=== PATIENT | female | born 1930 | race Caucasian/White ===

== ENCOUNTER 2016-11-08 16:49 | Inpatient (IN) | payer MEDICARE, OTHER ==
[~2016-11-08] VITALS: Ht 172.7 cm; Wt 72.1 kg
[2016-11-08] VITALS (8 sets, daily range): BP systolic 11–115; BP diastolic 53–59; PULSE 55–78; RESP 10–18; TEMP 92–97.6; O2SAT 94–100
[2016-11-08] MEDS ORDERED: SODIUM CHLOR 0.9% 1000 ML INJ 1,000 ML IV SCH (16:57)
[2016-11-08] MEDS ORDERED: ETOMIDATE 20 MG/10 ML VIAL IV PUSH ONE (17:00)
[2016-11-08] MEDS ORDERED: NALOXONE HCL 2 MG/2 ML VIAL IV ONE (17:00)
[2016-11-08] MEDS ORDERED: SODIUM CHLORIDE 0.9% FLUSH 5 ML FLUSH IVF PRN (17:00)
[2016-11-08] MEDS ORDERED: SUCCINYLCHOLINE CHLORIDE 200 MG/10 ML VIAL IV PUSH ONE (17:00)
[2016-11-08 17:01] LABS: MEAN CORPUSCULAR HGB CONC 29.5 % (32.0-36.0)
--- NOTE | 2016-11-08 17:01 | PD ---
HPI Chief Complaint: Fall Time Seen by Provider: 16:57 Travel History International Travel<30 days: No Contact w/Intl Traveler<30days: No Traveled to known affect area: No History of Present Illness HPI The patient is a 86-year-old female who presents emergency department via private vehicle after being found unresponsive in bed. According to family the last time the patient was found normal was last night. The family member states the patient did fall last night, he is unsure if there was a loss of consciousness. He was able to help the patient ambulate back to her bedroom. The patient did not get out of bed this morning, when they went into her room this afternoon she was unresponsive. Upon arrival the patient has her eyes closed, nonverbal, snoring respirations, and only withdraws to pain. The family member states the patient has no known medical problems, no previous surgeries, no allergies, takes no medications on a daily basis. The patient does not have a primary physician. The patient is unable to provide any information. [facility] Past Medical History Narrative Medical No medical history according to family member Medical History: Denies Significant Hx Diminished Hearing: Yes Past Surgical History Narrative Surgical No previous surgeries according to the family member Surgical History: No Previous Surgery Social History Alcohol Use: No Tobacco Use: No Substance Use: No (UNKNOWN ) Allergies-Medications (Allergen,Severity, Reaction): Coded Allergies: UNOBTAINABLE (Unverified , 11/08/16) Review of Systems ROS Limitations: Unresponsive, Other: (history obtained from family member) Physical Exam Exam Limitations: Clinical Condition, Altered Mental Status Narrative GENERAL: 86-year-old female who arrives unresponsive, started respirations, eyes closed, and withdraws to pain. SKIN: Hematoma noted over the right frontotemporal area. HEAD: Hematoma noted over the right frontotemporal area. EYES: Pupils equal and round. Pupils are 2 mm bilateral and sluggish. ENT: Lower dentures were in the posterior oropharynx. Upper dentures in place. NECK: Trachea midline. No JVD. CARDIOVASCULAR: Regular rate and rhythm. No murmur appreciated. Heart rate in the 80s. RESPIRATORY: No accessory muscle use. Rhonchi right base. GASTROINTESTINAL: Abdomen soft, non-tender, nondistended. No obvious distention or tenderness. MUSCULOSKELETAL: No obvious deformities. No clubbing. No cyanosis. No edema. NEUROLOGICAL: Eyes close. Nonverbal. Minimal gag. Withdraws to pain. PSYCHIATRIC: Unable to assess. Data Data Last Documented VS Vital Signs Date Time Temp Pulse Resp B/P Pulse Ox O2 Delivery O2 Flow Rate FiO2 11/08/16 17:30 100 50 11/08/16 17:23 97.6 75 18 111/59 Ventilator Orders Electrocardiogram (11/08/16 16:57) Complete Blood Count With Diff (11/08/16 16:57) Comprehensive Metabolic Panel (11/08/16 16:57) Creatine Kinase (Cpk) (11/08/16 16:57) Prothrombin Time / Inr (Pt) (11/08/16 16:57) Act Partial Throm Time (Ptt) (11/08/16 16:57) Troponin I (11/08/16 16:57) Urinalysis - C+S If Indicated (11/08/16 16:57) Arterial Blood Gas (Abg) (11/08/16 16:57) Blood Culture (11/08/16 16:57) Chest, Single Ap (11/08/16 16:57) Ct Brain W/O Iv Contrast(Rout) (11/08/16 16:57) Blood Glucose (11/08/16 16:57) Ecg Monitoring (11/08/16 16:57) Iv Access Insert/Monitor (11/08/16 16:57) Oximetry (11/08/16 16:57) Urinary Catheter Insert/Apply (11/08/16 16:57) Naloxone Inj (Narcan Inj) (11/08/16 17:00) Sodium Chloride 0.9% Flush (Ns Flush) (11/08/16 17:00) Sodium Chlor 0.9% 1000 Ml Inj (Ns 1000 M (11/08/16 16:57) Drug Screen, Random Urine (11/08/16 16:57) Alcohol (Ethanol) (11/08/16 16:57) Etomidate Inj (Amidate Inj) (11/08/16 17:00) Succinylcholine Inj (Quelicin Inj) (11/08/16 17:00) Aspirin Supp (Aspirin Supp) (11/08/16 17:45) Midazolam Inj (Versed Inj) (11/08/16 17:45) Neurological Rass Scale Q30MX2,Q2HX4,Q4H (11/08/16 17:38) Neurological Rass Scale Q30MX2,Q2HX4,Q4H (11/08/16 17:38) Fentanyl Drip (Fentanyl Drip) (11/08/16 17:45) CKMB (11/08/16 16:56) CKMB% (11/08/16 16:56) Midazolam Inj (Versed Inj) (11/08/16 18:01) Fentanyl Drip (Fentanyl Drip) (11/08/16 18:01) Urine Culture (11/08/16 17:40) Sodium Chlor 0.9% 1000 Ml Inj (Ns 1000 M (11/08/16 18:15) Consult Neurology (11/08/16 ) Admit Order (Ed Use Only) (11/08/16 18:12) Labs Laboratory Tests Test 11/08/16 11/08/16 11/08/16 16:56 17:40 18:04 White Blood Count 8.2 TH/MM3 Red Blood Count 4.51 MIL/MM3 Hemoglobin 8.3 GM/DL Hematocrit 28.1 % Mean Corpuscular Volume 62.4 FL Mean Corpuscular Hemoglobin 18.4 PG Mean Corpuscular Hemoglobin 29.5 % Concent Red Cell Distribution Width 19.6 % Platelet Count 105 TH/MM3 Mean Platelet Volume 8.9 FL Neutrophils (%) (Auto) 81.1 % Lymphocytes (%) (Auto) 9.0 % Monocytes (%) (Auto) 8.1 % Eosinophils (%) (Auto) 1.2 % Basophils (%) (Auto) 0.6 % Neutrophils # (Auto) 6.6 TH/MM3 Lymphocytes # (Auto) 0.7 TH/MM3 Monocytes # (Auto) 0.7 TH/MM3 Eosinophils # (Auto) 0.1 TH/MM3 Basophils # (Auto) 0.0 TH/MM3 CBC Comment AUTO DIFF Differential Comment AUTO DIFF CONFIRMED Platelet Estimate LOW Platelet Morphology Comment NORMAL Target Cells 1+ Ovalocytes 1+ Acanthocytes OCC Keratocytes OCC Prothrombin Time 13.7 SEC Prothromb Time International 1.2 RATIO Ratio Activated Partial 27.8 SEC Thromboplast Time Sodium Level 144 MEQ/L Potassium Level 4.6 MEQ/L Chloride Level 110 MEQ/L Carbon Dioxide Level 25.0 MEQ/L Anion Gap 9 MEQ/L Blood Urea Nitrogen 23 MG/DL Creatinine 0.89 MG/DL Estimat Glomerular Filtration 60 ML/MIN Rate Random Glucose 152 MG/DL Calcium Level 7.6 MG/DL Total Bilirubin 1.9 MG/DL Aspartate Amino Transf 196 U/L (AST/SGOT) Alanine Aminotransferase 33 U/L (ALT/SGPT) Alkaline Phosphatase 104 U/L Total Creatine Kinase 3354 U/L Creatine Kinase MB 14.2 NG/ML Creatine Kinase MB % 0.4 % Troponin I 0.08 NG/ML Total Protein 6.2 GM/DL Albumin 2.8 GM/DL Ethyl Alcohol Level LESS THAN 3 MG/DL Urine Color YELLOW Urine Turbidity HAZY Urine pH 7.5 Urine Specific Elora 1.017 Urine Protein 30 mg/dL Urine Glucose (UA) NEG mg/dL Urine Ketones NEG mg/dL Urine Occult Blood NEG Urine Nitrite NEG Urine Bilirubin NEG Urine Urobilinogen 2.0 MG/DL Urine Leukocyte Esterase TRACE Urine RBC 1 /hpf Urine WBC 2 /hpf Urine Bacteria MANY /hpf Urine Mucus FEW /lpf Microscopic Urinalysis Comment CATH-CULTURE IND Urine Opiates Screen NEG Urine Barbiturates Screen NEG Urine Amphetamines Screen NEG Urine Benzodiazepines Screen NEG Urine Cocaine Screen NEG Urine Cannabinoids Screen NEG Blood Gas Puncture Site LT RADIAL Blood Gas Patient Temperature 98.6 Blood Gas HCO3 23 mmol/L Blood Gas Base Excess -0.1 mmol/L Blood Gas Oxygen Saturation 98 % Arterial Blood pH 7.46 Arterial Blood Partial 33 mmHg Pressure CO2 Arterial Blood Partial 230 mmHG Pressure O2 Arterial Blood Oxygen Content 11.0 Vol % Arterial Blood 2.3 % Carboxyhemoglobin Arterial Blood Methemoglobin 0.5 % Blood Gas Hemoglobin 7.6 G/DL Oxygen Delivery Device VENTILATOR Blood Gas Ventilator Setting AC 12/450/5+ Blood Gas Inspired Oxygen 50 % [facility] Medical Decision Making Medical Screen Exam Complete: Yes Emergency Medical Condition: Yes Medical Record Reviewed: Yes Interpretation(s) EKG reveals sinus arrhythmia with a rate of 77. Q wave noted in lead [address] of the head reveals low density seen throughout the posterior circulation regions including the susan and midbrain, cerebellar hemispheres, occipital and posterior medial temporal lobes and right thalamus. This likely represents areas of infarction involving the posterior territory circulation. Last Impressions Head CT 11/08/16 4932 Signed Impressions: Service Date/Time: Tuesday, November 08, 2016 17:06 - CONCLUSION: Low density seen throughout the posterior circulation regions including the susan and midbrain, cerebellar hemispheres, occipital and posterior medial temporal lobes and right thalamus. This likely represents areas of infarction involving the posterior territory circulation. Jeffery Zhong MD Chest X-Ray 11/08/16 [id number] Signed Impressions: Service Date/Time: Tuesday, November 08, 2016 17:12 - CONCLUSION: Endotracheal tube is at the kraig and needs to be withdrawn at least 2 cm. Satisfactory position of nasogastric tube. No evidence of significant airspace disease or congestion. Hill Sequeira MD Laboratory Tests Test 11/08/16 11/08/16 11/08/16 16:56 17:40 18:04 White Blood Count 8.2 TH/MM3 Red Blood Count 4.51 MIL/MM3 Hemoglobin 8.3 GM/DL Hematocrit 28.1 % Mean Corpuscular Volume 62.4 FL Mean Corpuscular Hemoglobin 18.4 PG Mean Corpuscular Hemoglobin 29.5 % Concent Red Cell Distribution Width 19.6 % Platelet Count 105 TH/MM3 Mean Platelet Volume 8.9 FL Neutrophils (%) (Auto) 81.1 % Lymphocytes (%) (Auto) 9.0 % Monocytes (%) (Auto) 8.1 % Eosinophils (%) (Auto) 1.2 % Basophils (%) (Auto) 0.6 % Neutrophils # (Auto) 6.6 TH/MM3 Lymphocytes # (Auto) 0.7 TH/MM3 Monocytes # (Auto) 0.7 TH/MM3 Eosinophils # (Auto) 0.1 TH/MM3 Basophils # (Auto) 0.0 TH/MM3 CBC Comment AUTO DIFF Differential Comment AUTO DIFF CONFIRMED Platelet Estimate LOW Platelet Morphology Comment NORMAL Target Cells 1+ Ovalocytes 1+ Acanthocytes OCC Keratocytes OCC Prothrombin Time 13.7 SEC Prothromb Time International 1.2 RATIO Ratio Activated Partial 27.8 SEC Thromboplast Time Sodium Level 144 MEQ/L Potassium Level 4.6 MEQ/L Chloride Level 110 MEQ/L Carbon Dioxide Level 25.0 MEQ/L Anion Gap 9 MEQ/L Blood Urea Nitrogen 23 MG/DL Creatinine 0.89 MG/DL Estimat Glomerular Filtration 60 ML/MIN Rate Random Glucose 152 MG/DL Calcium Level 7.6 MG/DL Total Bilirubin 1.9 MG/DL Aspartate Amino Transf 196 U/L (AST/SGOT) Alanine Aminotransferase 33 U/L (ALT/SGPT) Alkaline Phosphatase 104 U/L Total Creatine Kinase 3354 U/L Creatine Kinase MB 14.2 NG/ML Creatine Kinase MB % 0.4 % Troponin I 0.08 NG/ML Total Protein 6.2 GM/DL Albumin 2.8 GM/DL Ethyl Alcohol Level LESS THAN 3 MG/DL Urine Color YELLOW Urine Turbidity HAZY Urine pH 7.5 Urine Specific Elora 1.017 Urine Protein 30 mg/dL Urine Glucose (UA) NEG mg/dL Urine Ketones NEG mg/dL Urine Occult Blood NEG Urine Nitrite NEG Urine Bilirubin NEG Urine Urobilinogen 2.0 MG/DL Urine Leukocyte Esterase TRACE Urine RBC 1 /hpf Urine WBC 2 /hpf Urine Bacteria MANY /hpf Urine Mucus FEW /lpf Microscopic Urinalysis Comment CATH-CULTURE IND Urine Opiates Screen NEG Urine Barbiturates Screen NEG Urine Amphetamines Screen NEG Urine Benzodiazepines Screen NEG Urine Cocaine Screen NEG Urine Cannabinoids Screen NEG Blood Gas Puncture Site LT RADIAL Blood Gas Patient Temperature 98.6 Blood Gas HCO3 23 mmol/L Blood Gas Base Excess -0.1 mmol/L Blood Gas Oxygen Saturation 98 % Arterial Blood pH 7.46 Arterial Blood Partial 33 mmHg Pressure CO2 Arterial Blood Partial 230 mmHG Pressure O2 Arterial Blood Oxygen Content 11.0 Vol % Arterial Blood 2.3 % Carboxyhemoglobin Arterial Blood Methemoglobin 0.5 % Blood Gas Hemoglobin 7.6 G/DL Oxygen Delivery Device VENTILATOR Blood Gas Ventilator Setting AC 12/450/5+ Blood Gas Inspired Oxygen 50 % Differential Diagnosis Differential diagnosis includes intracranial hemorrhage, subdural hemorrhage, epidural hemorrhage, subarachnoid hemorrhage, opiate overdose, STEMI, CVA, metabolic encephalopathy, aspiration pneumonia. Narrative Course IV was established, labs are drawn and sent, the patient was placed on cardiac telemetry monitoring and continuous pulse oximetry monitoring. The patient's GCS was 6, patient would only withdraw to pain, eyes closed, nonverbal, was not protecting her airway. Therefore, the patient was intubated using rapid sequence intubation with etomidate and succinylcholine. Head and that was placed up at 30 and the patient went immediately to CT suite for CT of the brain. Labs were drawn and sent. Post intubation chest x-ray was performed. CT reveals a large posterior infarct, therefore, head of bed was placed flat. The patient was administered aspirin 300 mg suppository. I discussed the patient with the on-call neurologist, Dr. Barrera, who agrees with no further intervention. The patient was also noted to be in rhabdomyolysis, therefore, 1 L of IV fluids was placed. I discussed the patient with the on-call jacker feeder who agrees with admission. Chest x-ray reveals endotracheal tube is at the kraig, therefore, respiratory therapy was called to remove it 2 cm. The neurologist, Dr. Barrera, evaluated the patient in the emergency department at 6:15 PM and discussed the patient's large stroke with family at bedside. Critical Care Narrative Aggregate critical care time was 45 minutes. Time to perform other separately billable procedures was not included in the critical care time. My time did not include minutes spent treating any other patients simultaneously or on activities that did not directly contribute to the patient's treatment. The services I provided to this patient were to treat and/or prevent clinically significant deterioration that could result in: Anoxia, hypoxia, aspiration, herniation, arrhythmia, . I provided critical care services requiring my management, as noted below: Chart data review, documentation time, medication orders and management, vital sign assessments/reviewing monitor data, ordering and reviewing lab tests, ordering and interpreting/reviewing x-rays and diagnostic studies, care of the patient and discussion of the patient with the admitting physicians. Procedures Procedure Narrative INTUBATION: The patient was put in optimal position for the procedure. Rapid sequence intubation was initiated by me using 20 milligrams of etomidate IV and 100 milligrams of succinylcholine IV. The patient was intubated with a 7.5 cuffed endotracheal tube. Tube placement was confirmed by visualization of the tube and balloon passing through the cords, capnometry and subsequent chest x- ray. Breath sounds were equal and well aerated bilaterally postintubation. No breath sounds over stomach. Patient tolerated procedure well. Physician Communication Physician Communication I discussed the patient with the on-call jacker feeder, Dr. Dumont, who agrees with admission. Diagnosis Primary Impression: CVA (cerebral vascular accident) Qualified Code: I63.9 - Cerebrovascular accident (CVA), unspecified mechanism Additional Impression: Rhabdomyolysis Qualified Code: M62.82 - Non-traumatic rhabdomyolysis Admitting Information Admitting Physician Requests: Admit Condition: Critical Kamlesh Mcintosh MD Nov 08, 2016 17:01
[2016-11-08 17:25] LABS: AUTOMATED NEUTROPHIL # 6.6 TH/MM3 (1.8-7.7); BASOPHIL % 0.6 % (0.0-2.0); EOSINOPHIL # 0.1 TH/MM3 (0-0.4); EOSINOPHIL % 1.2 % (0.0-4.0); HEMATOCRIT 28.1 % (35.0-46.0); LYMPHOCYTE # 0.7 TH/MM3 (1.0-4.8); MEAN CELL VOLUME 62.4 FL (80.0-100.0); MEAN CORPUSCULAR HEMOGLOBIN 18.4 PG (27.0-34.0); MONO % 8.1 % (0.0-8.0); NEUT % 81.1 % (16.0-70.0); PLATELET COUNT 105 TH/MM3 (150-450); RED BLOOD COUNT 4.51 MIL/MM3 (4.00-5.30); RED CELL DISTRIBUTION WIDTH 19.6 % (11.6-17.2); WHITE BLOOD COUNT 8.2 TH/MM3 (4.0-11.0)
--- NOTE | 2016-11-08 17:29 | RADRPT ---
EXAM DATE/TIME: 11/08/2016 17:06 [facility] COMPARISON: No previous studies available for comparison. INDICATIONS : Altered mental status. Found unresponsive. RADIATION DOSE: 37.56 CTDIvol (mGy) MEDICAL HISTORY : Non-responsive. SURGICAL HISTORY : Non-responsive. ENCOUNTER: Initial ACUITY: 1 day PAIN SCALE: Non-responsive LOCATION: Cranial TECHNIQUE: Multiple contiguous axial images were obtained of the head. Using automated exposure control and adjustment of the mA and/or kV according to patient size, radiation dose was kept as low as reasonably achievable to obtain optimal diagnostic quality images. FINDINGS: There is low density seen in the susan and midbrain. There is low density seen in the ce rebellar hemispheres bilaterally. There is low density seen at the posterior medial temporal lobes a nd the occipital lobes bilaterally. There is some low density seen in the right thalamus. No extra-a xial fluid collections are seen. The lateral ventricles have a normal configuration. The basal cist erns are open. CONCLUSION: Low density seen throughout the posterior circulation regions including the susan and midbrain, cerebellar hemispheres, occipital and posterior medial temporal lobes and right thalamus. T his likely represents areas of infarction involving the posterior territory circulation. Jeffery Zhong MD on November 08, 2016 at 17:21 Board Certified Radiologist. This report was verified electronically.
[2016-11-08 17:34] LABS: APTT (PATIENT) 27.8 SEC (24.3-30.1); INTERNATIONAL NORMALIZED RATIO 1.2 RATIO; PROTHROMBIN TIME - PATIENT 13.7 SEC (9.8-11.6)
[2016-11-08 17:42] LABS: ANION GAP 9 MEQ/L (5-15); AST (GOT) 196 U/L (15-37); BLOOD UREA NITROGEN 23 MG/DL (7-18); CHLORIDE 110 MEQ/L (98-107); GLOMERULAR FILTRATION RATE 60 ML/MIN (>89); POTASSIUM 4.6 MEQ/L (3.5-5.1); SODIUM (NA) 144 MEQ/L (136-145)
--- NOTE | 2016-11-08 17:42 | RADRPT ---
EXAM DATE/TIME: 11/08/2016 17:12 [facility] COMPARISON: No previous studies available for comparison. INDICATIONS : Post intubation. MEDICAL HISTORY : Unobtainble. SURGICAL HISTORY : Unobtainable. ENCOUNTER: Initial ACUITY: 1 day PAIN SCORE: 0/10 LOCATION: Bilateral chest FINDINGS: A single view of the chest demonstrates the presence of an endotracheal and nasogastric tube. The tip of the endotracheal tube is at the kraig and directed towards the right mainstem bronchus. The naso gastric tube is in good position. Lungs are hypoaerated but otherwise free of significant airspace disease. Heart and mediastinal structures are unremarkable. CONCLUSION: Endotracheal tube is at the kraig and needs to be withdrawn at least 2 cm. Satisfactory position of nasogastric tube. No evidence of significant airspace disease or congestion. Hill Sequeira MD on November 08, 2016 at 17:39 Board Certified Radiologist. This report was verified electronically.
[2016-11-08] MEDS ORDERED: MIDAZOLAM 100 MG/ML INJ 100 ML IV SCH (17:45)
[2016-11-08] MEDS ORDERED: ASPIRIN 300 MG SUPP RECTAL ONE (17:45)
[2016-11-08] MEDS ORDERED: fentaNYL DRIP 250 ML IV SCH (17:45)
[2016-11-08 17:52] LABS: ALKALINE PHOSPHATASE 104 U/L (45-117); ALT (GPT) 33 U/L (10-53); CREATINE KINASE 3354 U/L (26-192); TOTAL BILIRUBIN ADULT 1.9 MG/DL (0.2-1.0)
[2016-11-08] MEDS ORDERED: MIDAZOLAM 100 MG/ML INJ 100 ML ONE (18:01)
[2016-11-08] MEDS ORDERED: fentaNYL DRIP 250 ML ONE (18:01)
[2016-11-08 18:03] LABS: BACTERIA, URINE MANY /hpf; BLOOD, URINE NEG (NEG); GLUCOSE,URINE NEG (NEG); KETONE, URINE NEG (NEG); MUCUS URINE FEW /lpf (OCC); NITRITE,URINE NEG (NEG); PH, URINE 7.5 (5.0-8.5); URINE COLOR YELLOW (YELLW/STRAW)
[2016-11-08 18:04] LABS: COMMENT (UR) CATH-CULTURE IND; CULTURE IF INDICATED CATH CULTURE IND
[2016-11-08 18:06] LABS: CKMB 14.2 NG/ML (0.5-3.6)
[2016-11-08 18:08] LABS: BLOOD GAS BASE EXCESS -0.1 mmol/L (-2-2); BLOOD GAS CARBOXYHEMOGLOBIN 2.3 % (0-4); BLOOD GAS HCO3 23 mmol/L (22-26); BLOOD GAS METHEMOGLOBIN 0.5 % (0-2); BLOOD GAS O2 HGB SATURATION 98 % (90-100); BLOOD GAS PCO2 33 mmHg (38-42); BLOOD GAS PO2 230 mmHG (61-120); BLOOD GAS TOTAL HGB 7.6 G/DL (12.0-16.0); CRITICAL VALUE NO; TEMP CORR TO 98.6
[2016-11-08 18:09] LABS: DRAW SITE LT RADIAL; FIO2 50 %; NUMBER OF ARTERIAL PUNCTURES 1; OXYGEN DEVICE VENTILATOR; STAT YES; ULNAR PULSE PRESENT; VENT SETTINGS AC 12/450/5+
[2016-11-08 18:09] LABS: AMPHETAMINE, URINE NEG (NEG); BARBITURATES, URINE NEG (NEG); COCAINE, URINE NEG (NEG)
[2016-11-08 18:11] LABS: HEMO FLAGS AUTO DIFF
[2016-11-08 18:12] LABS: ACANTHOCYTES OCC (NORMAL); KERATOCYTES OCC (NORMAL); OVALOCYTES 1+ (NORMAL); PLATELET ESTIMATE SMEAR LOW (NORMAL); PLATELET MORPHOLOGY NORMAL (NORMAL); SCAN/DIFF AUTO DIFF CONFIRMED; TARGET CELLS 1+ (NORMAL)
[2016-11-08] MEDS ORDERED: SODIUM CHLOR 0.9% 1000 ML INJ 1,000 ML IV ONE (18:15)
[2016-11-08] MEDS ORDERED: MANNITOL 12.5 GM/50 ML VIAL IV ONE (18:30)
--- NOTE | 2016-11-08 19:40 | MB ---
cc: FARAZ NAJERA M.D. DATE OF CONSULTATION 11/08/2016 HISTORY OF THE PRESENT ILLNESS She is an 86-year-old woman seen in neurological consultation. I spoke to the ED physician, Dr. Gregorio. I spoke the patient's son at bedside. Last evening the son arrived and apparently found her on the floor. The patient seemed to be somewhat responsive and he lifted her and took her to bed. She seemed to be able to walk with some assistance. He described that she was making some noise or words but usually does not talk very much. This morning she was found unresponsive and then he brought her to the hospital. Apparently the son checks on her and there is a daughter was also a registration rep. The patient has not been on any medication, has not been seen by doctors for quite some time. She has had some difficulty with memory or cognition lately, and her level of function has decreased significantly. She apparently walks to a certain extent and she is usually quiet, was difficult to get a more detailed history of background as baseline. PHYSICAL EXAMINATION GENERAL: On exam the patient is now on the ventilator, unresponsive, until I stimulated her moderately strongly in her chest, when I see posturing of both upper and probably lower extremities as well. Otherwise she is quiet. HEENT: The pupils are small and about same size and poorly reactive. The reflexes were diminished, nearly absent and plantar responses probably extensor bilaterally. IMAGING The CT brain is seen. There is extensive posterior circulation acute infarct, probably from basilar occlusion. There is calcification that appears to be in the basilar artery. LABORATORY DATA Other labs are seen. Sodium, potassium normal. The BUN 23, creatinine 0.89, glucose 152, calcium 7.6. CPK 3354. WBC 8.2, hemoglobin 8.3, platelets 105. 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 I have discussed the findings with the patient's son at bedside, also spoke to Dr. Gregorio. There is a very serious condition and non reversable. The prognosis is extremely poor no matter the aggressiveness of the treatment. The son wants to continue with full care for the time being until he checks with other family members etc. He was not sure about any living will. She is to be admitted to the intensive care unit. We will give her some small dose of mannitol if acceptable with the construction checker. Follow up CT brain and 12 - 24 hours. It is likely that she will be developing hydrocephalus but do not think she would be a candidate for any intervention. Thank you for asking us to assist in her care. MD JONATHAN Pham/KK /7:11 PM /7:27 PM
[2016-11-08] MEDS ORDERED: CHLORHEXIDINE GLUCONATE 2 % 1 PACK (2 CLOTHS) TOP PRN (19:45)
[2016-11-08] MEDS ORDERED: DEXTROSE 50% IN WATER 50 ML VIAL(D50) IV PUSH PRN (19:45)
[2016-11-08] MEDS ORDERED: MAGNESIUM SULFATE INJ 2 GM in SODIUM CHLORIDE 0.9% INJ 96 ML IV PRN (19:45)
[2016-11-08] MEDS ORDERED: MAGNESIUM OXIDE 400 MG TAB PO PRN (19:45)
[2016-11-08] MEDS ORDERED: MAGNESIUM SULFATE INJ 4 GM in SODIUM CHLORIDE 0.9% INJ 92 ML IV PRN (19:45)
[2016-11-08] MEDS ORDERED: POTASSIUM CHLOR 20 MEQ PREMIX 100 ML IV PRN ×2 (19:45)
[2016-11-08] MEDS ORDERED: POTASSIUM CHLOR 40 MEQ PREMIX 100 ML IV PRN ×2 (19:45)
[2016-11-08] MEDS ORDERED: POTASSIUM PHOSPHATE MONOBASIC 500 MG TAB PO PRN (19:45)
[2016-11-08] MEDS ORDERED: SODIUM CHLORIDE 0.9% FLUSH 5 ML FLUSH IV FLUSH PRN (19:45)
[2016-11-08] MEDS ORDERED: SODIUM PHOSPHATE INJ 30 MMOL in SODIUM CHLOR 0.9% 250 ML INJ 240 ML IV PRN (19:45)
[2016-11-08] MEDS ORDERED: niCARdipine INJ 25 MG in SODIUM CHLOR 0.9% 250 ML INJ 250 ML IV SCH (19:45)
[2016-11-08] MEDS ORDERED: MISCELLANEOUS NURSING INFORMATION XX SCH (19:45)
[2016-11-08] MEDS ORDERED: ONDANSETRON HCL 4 MG/2 ML VIAL IV PRN (19:45)
[2016-11-08] MEDS ORDERED: POTASSIUM PHOSPHATE INJ 30 MMOL in SODIUM CHLOR 0.9% 250 ML INJ 250 ML IV PRN (19:45)
[2016-11-08] MEDS ORDERED: POTASSIUM PHOSPHATE MONOBASIC 500 MG TAB PO/TUBE PRN (19:45)
--- NOTE | 2016-11-08 19:52 | HHI.HP ---
[facility] Service Critical Care Medicine Primary Care Physician Unknown Admission Diagnosis large posterior CVA, respiratory distress, rhabdomyolysis Diagnosis: Chief Complaint: unresponsive Travel History International Travel<30 Days: No Contact w/Intl Traveler <30 Da: No Traveled to Known Affected Are: No History of Present Illness This is an 86yF with per report no other past medical history who presented to the ER after she was found unresponsive in her bed. According to ER reports, her family saw her normal last night when she had a fall, with unknown LOC. At that point, he helped her back to bed. However, this morning she did not wake up. On arrival to the ER, she was unresponsive only withdrawing to pain. she was intubated for airway protection and a poor GCS. CT head demonstrated massive posterior-circulation ischemic stroke. The patient is currently intubated and unresponsive and cannot provide any additional history. Review of Systems ROS Limitations: Clinical Condition, Intubated, Altered Mental Status, Unresponsive Past Family Social History Allergies: Coded Allergies: UNOBTAINABLE (Unverified , 11/08/16) Past Medical History Unknown and unobtainable secondary to the clinical condition of the patient. Per chart review, family members state no known past medical history. Past Surgical History Unknown and unobtainable secondary to the clinical condition of the patient. Per chart review, family members state no known past surgical history. Reported Medications Unknown and unobtainable secondary to the clinical condition of the patient. Active Ordered Medications See MAR Family History Unknown and unobtainable secondary to the clinical condition of the patient. Social History Unknown and unobtainable secondary to the clinical condition of the patient. Physical Exam Vital Signs Vital Signs Date Time Temp Pulse Resp B/P Pulse Ox O2 Delivery O2 Flow Rate FiO2 11/08/16 19:00 100 30 11/08/16 17:30 100 50 11/08/16 17:30 100 100 11/08/16 17:23 97.6 75 18 111/59 100 Ventilator 50 11/08/16 17:23 100 Ventilator 50 11/08/16 17:17 75 18 100 11/08/16 17:10 75 18 95/53 100 11/08/16 16:56 50 11/08/16 16:51 78 18 115/58 94 Physical Exam GENERAL: Elderly female, lying in bed, intubated, unresponsive, critically ill. HEENT: pupils 2mm, equal, reactive. normocephalic. atraumatic. mucous membranes moist. NECK: Orotracheally intubated. No JVD. Trachea midline. CHEST: Equal chest rise. Clear to auscultation. CARDIOVASCULAR: Normal rate, regular rhythm. No appreciable murmurs. ABDOMEN: Soft, nontender, nondistended. No guarding. MUSCULOSKELETAL: No peripheral edema. Distal pulses 2+. NEUROLOGICAL: RASS -5. Negative cough. Negative gag. Positive corneals. Pupils as above. No movement to painful stimuli in all 4 extremities. Downgoing Babinski. Laboratory Laboratory Tests Test 11/08/16 11/08/16 11/08/16 16:56 17:40 18:04 White Blood Count 8.2 Red Blood Count 4.51 Hemoglobin 8.3 Hematocrit 28.1 Mean Corpuscular Volume 62.4 Mean Corpuscular Hemoglobin 18.4 Mean Corpuscular Hemoglobin 29.5 Concent Red Cell Distribution Width 19.6 Platelet Count 105 Mean Platelet Volume 8.9 Neutrophils (%) (Auto) 81.1 Lymphocytes (%) (Auto) 9.0 Monocytes (%) (Auto) 8.1 Eosinophils (%) (Auto) 1.2 Basophils (%) (Auto) 0.6 Neutrophils # (Auto) 6.6 Lymphocytes # (Auto) 0.7 Monocytes # (Auto) 0.7 Eosinophils # (Auto) 0.1 Basophils # (Auto) 0.0 CBC Comment AUTO DIFF Differential Comment AUTO DIFF CONFIRMED Platelet Estimate LOW Platelet Morphology Comment NORMAL Target Cells 1+ Ovalocytes 1+ Acanthocytes OCC Keratocytes OCC Prothrombin Time 13.7 Prothromb Time International 1.2 Ratio Activated Partial 27.8 Thromboplast Time Sodium Level 144 Potassium Level 4.6 Chloride Level 110 Carbon Dioxide Level 25.0 Anion Gap 9 Blood Urea Nitrogen 23 Creatinine 0.89 Estimat Glomerular Filtration 60 Rate Random Glucose 152 Calcium Level 7.6 Total Bilirubin 1.9 Aspartate Amino Transf 196 (AST/SGOT) Alanine Aminotransferase 33 (ALT/SGPT) Alkaline Phosphatase 104 Total Creatine Kinase 3354 Creatine Kinase MB 14.2 Creatine Kinase MB % 0.4 Troponin I 0.08 Total Protein 6.2 Albumin 2.8 Ethyl Alcohol Level LESS THAN 3 Urine Color YELLOW Urine Turbidity HAZY Urine pH 7.5 Urine Specific [place] 1.017 Urine Protein 30 Urine Glucose (UA) NEG Urine Ketones NEG Urine Occult Blood NEG Urine Nitrite NEG Urine Bilirubin NEG Urine Urobilinogen 2.0 Urine Leukocyte Esterase TRACE Urine RBC 1 Urine WBC 2 Urine Bacteria MANY Urine Mucus FEW Microscopic Urinalysis Comment CATH-CULTURE IND Urine Opiates Screen NEG Urine Barbiturates Screen NEG Urine Amphetamines Screen NEG Urine Benzodiazepines Screen NEG Urine Cocaine Screen NEG Urine Cannabinoids Screen NEG Blood Gas Puncture Site LT RADIAL Blood Gas Patient Temperature 98.6 Blood Gas HCO3 23 Blood Gas Base Excess -0.1 Blood Gas Oxygen Saturation 98 Arterial Blood pH 7.46 Arterial Blood Partial 33 Pressure CO2 Arterial Blood Partial 230 Pressure O2 Arterial Blood Oxygen Content 11.0 Arterial Blood 2.3 Carboxyhemoglobin Arterial Blood Methemoglobin 0.5 Blood Gas Hemoglobin 7.6 Oxygen Delivery Device VENTILATOR Blood Gas Ventilator Setting AC 12/450/5+ Blood Gas Inspired Oxygen 50 Date/Time Procedure Status Source Growth 11/08/16 17:44 Aerobic Blood Culture Received Blood Peripheral Pending 11/08/16 17:44 Anaerobic Blood Culture Received Blood Peripheral Pending 11/08/16 17:40 Urine Culture Received Urine Catheterized Urine Pending Result Diagram: 11/08/16165511/08/161655 Imaging Last [address] 11/08/161656 Signed Impressions: Service Date/Time: Tuesday, November 08, 2016 17:06 - CONCLUSION: Low density seen throughout the posterior circulation regions including the susan and midbrain, cerebellar hemispheres, occipital and posterior medial temporal lobes and right thalamus. This likely represents areas of infarction involving the posterior territory circulation. Jeffery Zhong MD Chest X-Ray 11/08/161656 Signed Impressions: Service Date/Time: Tuesday, November 08, 2016 17:12 - CONCLUSION: Endotracheal tube is at the kraig and needs to be withdrawn at least 2 cm. Satisfactory position of nasogastric tube. No evidence of significant airspace disease or congestion. 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 This far out from her last seen normal, nearly 24 hours, she is not a candidate for any interventional therapy. Unfortunately, given her age, and the extent of the stroke, her prognosis for any reasonable neurologic function is quite poor, and I do not think that we will be able to improve her outcome at all. We will admit her to the ICU and monitor her. Her family expressed wishes for a short course of aggressive medical management. We will closely monitor her and provide supportive care. I have consulted palliative care to assist in goals of care discussions. For now, she remains very critically ill. Active problems: Massive posterior circulation ischemic CVA Hypoxic and hypercarbic respiratory failure Severe encephalopathy secondary to stroke. Plan: Admit to the ICU Every hour neuro checks Avoid sedating medications Repeat head CT per neurology Vent bundle, Head of bed 30, when necessary nebs Wean FiO2 for goal SPO2 greater than 92% Goal systolic blood pressure less than 180. Use nicardipine as needed Lipid profile 2-D echo Carotid ultrasound Subcutaneous heparin, SCDs for DVT prophylaxis Protonix for GI prophylaxis This patient remains critically ill with one or more organ systems which are or may become a threat to life. I have spent in excess of 47 minutes discontinuously in the care and management of this patient. This time is exclusive of procedures, and includes, but is not limited to, evaluation of the patient, review of the medical record, discussions with family, consultants, nursing staff, or respiratory therapy, and documentation in the medical record. Code Status Full Code Frederick Dumont MD Nov 08, 2016 19:52
[2016-11-08] MEDS: SODIUM CHLOR 0.9% 1000 ML INJ 1,000 ML IV SCH (20:50)
[2016-11-08] MEDS: HEPARIN SODIUM - SQ 10,000 UNITS/ML VIAL SQ SCH (20:59)
[2016-11-08 21:06] LABS: MEAN CORPUSCULAR HGB CONC 28.9 % (32.0-36.0)
--- NOTE | 2016-11-08 23:58 | RADRPT ---
EXAM DATE/TIME: 11/08/2016 22:24 [facility] COMPARISON: No previous studies available for comparison. INDICATIONS : Cerebrovascular accident. MEDICAL HISTORY : CVA. SURGICAL HISTORY : None. ENCOUNTER: Initial ACUITY: 1 day PAIN SCORE: Nonresponsive. LOCATION: Bilateral neck PEAK SYSTOLIC VELOCITIES (cm/sec): ICA/CCA RATIO: Right: 0.9 Left: 0.8 ICA: Right: 76 Left: 81 CCA: Right: 86 Left: 97 ECA: Right: 73 Left: 123 VERTEBRAL: Right: 40 antegrade Left: 35 antegrade Elevated flow velocities and ICA/CCA ratios have been found to correlate with increased degrees of vessel stenosis, calculated as percentage of diameter relative to a normal segment of distal ICA/CCA FINDINGS: RIGHT CAROTID: No significant stenosis is visualized. The waveforms are within normal limits. LEFT CAROTID: No significant stenosis is visualized. The waveforms are within normal limits. VERTEBRAL ARTERIES: Antegrade flow is seen in both vertebral arteries. MISCELLANEOUS: None. CONCLUSION: Mild calcified plaque at the carotid bulbs. No evidence of hemodynamically significant carotid stenos is. José Luis Beltran MD on November 08, 2016 at 23:55 Board Certified Radiologist. This report was verified electronically.
[2016-11-09] VITALS (18 sets, daily range): BP systolic 107–140; BP diastolic 54–90; PULSE 57–112; RESP 10–18; TEMP 95–100.6; O2SAT 95–100
[2016-11-09] MEDS: RESP: ALBUTEROL 2.5 MG/IPRATROPIUM 0.5 MG NEB (SCH) INH ×4 (03:48→20:43)
[2016-11-09] MEDS: CHLORHEXIDINE GLUCONATE 2 % 1 PACK (2 CLOTHS) TOP SCH (04:00)
[2016-11-09] MEDS: SODIUM CHLOR 0.9% 1000 ML INJ 1,000 ML IV SCH ×2 (04:42→23:36)
[2016-11-09 05:34] LABS: HEMATOCRIT 24.5 % (35.0-46.0); MEAN CELL VOLUME 62.8 FL (80.0-100.0); MEAN CORPUSCULAR HEMOGLOBIN 18.1 PG (27.0-34.0); PLATELET COUNT 79 TH/MM3 (150-450); RED BLOOD COUNT 3.91 MIL/MM3 (4.00-5.30); WHITE BLOOD COUNT 5.6 TH/MM3 (4.0-11.0)
[2016-11-09 05:38] LABS: REVIEW FLAG FINAL
[2016-11-09 06:19] LABS: BICARBONATE 21.8 MEQ/L (21.0-32.0); HDL CHOLESTEROL 39.3 MG/DL (40.0-60.0); POTASSIUM 3.1 MEQ/L (3.5-5.1)
--- NOTE | 2016-11-09 06:23 | HHI.PR ---
Review/Management Daily Summary unchanged on exam x sedation agree with palliative care i will be out of town as of tonight and if needed dr Pack will be covering Subjective Subjective Comments mildly sedated fentanyl Active Medications Current Medications Medications (Trade) Dose Ordered Sig/Swati Route Start Time Stop Time Status Last Admin (fentaNYL DRIP) 250 ml @ 0 mls/hr TITRATE IV 11/08/16 17:45 11/08/16 18:18 Magnesium Oxide 800 mg 800 mg UNSCH PRN PO 11/08/16 19:45 Magnesium Sulfate 4 gm/Sodium Chloride 100 ml @ 50 mls/hr UNSCH PRN IV 11/08/16 19:45 Magnesium Sulfate 2 gm/Sodium Chloride 100 ml @ 50 mls/hr UNSCH PRN IV 11/08/16 19:45 Potassium Chloride 100 ml @ 50 mls/hr Q2H PRN IV 11/08/16 19:45 Potassium Chloride 100 ml @ 50 mls/hr Q2H PRN IV 11/08/16 19:45 Potassium Chloride 100 ml @ 50 mls/hr Q2H PRN IV 11/08/16 19:45 (KCl 40 Meq Premix Inj) 100 ml @ 25 mls/hr UNSCH PRN IV 11/08/16 19:45 (K-Phos) 2,000 mg Q4H PRN PO 11/08/16 19:45 Potassium Phosphate 2000 mg 2,000 mg UNSCH PRN PO/TUBE 11/08/16 19:45 Potassium Phosphate 30 mmol/ Sodium Chloride 260 ml @ 42 mls/hr UNSCH PRN IV 11/08/16 19:45 (Sodium Phosphate Inj/NS 250 ml Inj) 250 ml @ 42 mls/hr UNSCH PRN IV 11/08/16 19:45 (Peridex 0.12% Liq) 15 ml BID@08,20 MT 11/08/16 20:00 (D50w (Vial) Inj) 25 ml UNSCH PRN IV PUSH 11/08/16 19:45 Insulin Human Regular 1 1 Q6HR SQ 11/09/16 00:00 Nicardipine HCl 25 mg/Sodium Chloride 260 ml @ 0 mls/hr TITRATE IV 11/08/16 19:45 (NS 1000 ml Inj) 1,000 ml @ 84 mls/hr [id number] IV 11/08/16 19:45 11/09/16 04:42 (NS Flush) 2 ml UNSCH PRN IV FLUSH 11/08/16 19:45 (NS Flush) 2 ml BID IV FLUSH 11/08/16 21:00 (Protonix Inj) 40 mg DAILY IV 11/09/16 09:00 (Zofran Inj) 4 mg Q6H PRN IV 11/08/16 19:45 (Colace Liq) 100 mg Q12HR G-TUBE 11/08/16 21:00 (Heparin Inj) 5,000 units Q12H SQ 11/08/16 20:00 11/08/16 20:59 Miscellaneous Information 1 [id number] XX 11/08/16 19:45 (Chlorhexidine 2% Cloth) 3 pack Taper DAILY@04 TOP 11/09/16 04:00 11/05/17 03:59 (Chlorhexidine 2% Cloth) 3 pack UNSCH PRN TOP 11/08/16 19:45 Allergies Allergies Coded Allergies No Known Allergies (Unverified11/08/16) Exam I&O / VS 11/08/16 11/08/16 11/09/16 15:00 23:00 07:00 Intake Total 615 ml Output Total 650 ml Balance -35 ml Intake IV Total 615 ml Output Urine Total 650 ml Vital Signs Date Time Temp Pulse Resp B/P Pulse Ox O2 Delivery O2 Flow Rate FiO2 11/09/16 04:18 100 30 11/09/16 02:00 66 11/09/16 01:28 100 30 11/09/16 00:00 95.0 57 10 107/54 95 11/09/16 00:00 66 11/08/16 22:15 100 30 11/08/16 22:00 92.0 56 10 110/53 98 11/08/16 22:00 55 11/08/16 20:59 57 18 112/55 100 Ventilator 11/08/16 19:00 100 30 11/08/16 17:30 100 50 11/08/16 17:30 100 100 11/08/16 17:23 97.6 75 18 111/59 100 Ventilator 50 11/08/16 17:23 100 Ventilator 50 11/08/16 17:17 75 18 100 11/08/16 17:10 75 18 95/53 100 11/08/16 16:56 50 11/08/16 16:51 78 18 115/58 94 Objective Micro and Labs Laboratory Tests Test 11/08/16 11/08/16 11/08/16 11/08/16 16:56 17:40 18:04 21:44 White Blood Count 8.2 Red Blood Count 4.51 Hemoglobin 8.3 Hematocrit 28.1 Mean Corpuscular Volume 62.4 Mean Corpuscular Hemoglobin 18.4 Mean Corpuscular Hemoglobin 29.5 Concent Red Cell Distribution Width 19.6 Platelet Count 105 Mean Platelet Volume 8.9 Neutrophils (%) (Auto) 81.1 Lymphocytes (%) (Auto) 9.0 Monocytes (%) (Auto) 8.1 Eosinophils (%) (Auto) 1.2 Basophils (%) (Auto) 0.6 Neutrophils # (Auto) 6.6 Lymphocytes # (Auto) 0.7 Monocytes # (Auto) 0.7 Eosinophils # (Auto) 0.1 Basophils # (Auto) 0.0 CBC Comment AUTO DIFF Differential Comment AUTO DIFF CONFIRMED Platelet Estimate LOW Platelet Morphology Comment NORMAL Target Cells 1+ Ovalocytes 1+ Acanthocytes OCC Keratocytes OCC Prothrombin Time 13.7 Prothromb Time International 1.2 Ratio Activated Partial 27.8 Thromboplast Time Sodium Level 144 Potassium Level 4.6 Chloride Level 110 Carbon Dioxide Level 25.0 Anion Gap 9 Blood Urea Nitrogen 23 Creatinine 0.89 Estimat Glomerular Filtration 60 Rate Random Glucose 152 Calcium Level 7.6 Total Bilirubin 1.9 Aspartate Amino Transf 196 (AST/SGOT) Alanine Aminotransferase 33 (ALT/SGPT) Alkaline Phosphatase 104 Total Creatine Kinase 3354 Creatine Kinase MB 14.2 Creatine Kinase MB % 0.4 Troponin I 0.08 Total Protein 6.2 Albumin 2.8 Ethyl Alcohol Level LESS THAN 3 Urine Color YELLOW Urine Turbidity HAZY Urine pH 7.5 Urine Specific [place] 1.017 Urine Protein 30 Urine Glucose (UA) NEG Urine Ketones NEG Urine Occult Blood NEG Urine Nitrite NEG Urine Bilirubin NEG Urine Urobilinogen 2.0 Urine Leukocyte Esterase TRACE Urine RBC 1 Urine WBC 2 Urine Bacteria MANY Urine Mucus FEW Microscopic Urinalysis Comment CATH-CULTURE IND Urine Opiates Screen NEG Urine Barbiturates Screen NEG Urine Amphetamines Screen NEG Urine Benzodiazepines Screen NEG Urine Cocaine Screen NEG Urine Cannabinoids Screen NEG Blood Gas Puncture Site LT RADIAL Blood Gas Patient Temperature 98.6 Blood Gas HCO3 23 Blood Gas Base Excess -0.1 Blood Gas Oxygen Saturation 98 Arterial Blood pH 7.46 Arterial Blood Partial 33 Pressure CO2 Arterial Blood Partial 230 Pressure O2 Arterial Blood Oxygen Content 11.0 Arterial Blood 2.3 Carboxyhemoglobin Arterial Blood Methemoglobin 0.5 Blood Gas Hemoglobin 7.6 Oxygen Delivery Device VENTILATOR Blood Gas Ventilator Setting AC 12/450/5+ Blood Gas Inspired Oxygen 50 Nasal Screen MRSA (PCR) NEGATIVE Test 11/09/16 04:12 White Blood Count 5.6 Red Blood Count 3.91 Hemoglobin 7.1 Hematocrit 24.5 Mean Corpuscular Volume 62.8 Mean Corpuscular Hemoglobin 18.1 Mean Corpuscular Hemoglobin 28.9 Concent Red Cell Distribution Width 20.0 Platelet Count 79 Mean Platelet Volume 9.1 Date/Time Procedure Status Source Growth 11/08/16 17:44 Aerobic Blood Culture Received Blood Peripheral Pending 11/08/16 17:44 Anaerobic Blood Culture Received Blood Peripheral Pending 11/08/16 17:40 Urine Culture Received Urine Catheterized Urine Pending Capri Barrera MD Nov 09, 2016 06:23
[2016-11-09 06:44] LABS: CALCIUM-PROTEIN CORRECTED 8.3 MG/DL (8.5-10.1)
[2016-11-09] MEDS: PANTOPRAZOLE SODIUM 40 MG VIAL IV SCH (09:20)
[2016-11-09] MEDS: DOCUSATE SODIUM 100 MG/10 ML UDC G-TUBE SCH ×2 (09:20→19:43)
[2016-11-09] MEDS: CHLORHEXIDINE 0.12% (ORAL KIT) 15 ML CUP MT SCH ×2 (09:23→19:47)
[2016-11-09] MEDS: SODIUM CHLORIDE 0.9% FLUSH 5 ML FLUSH IV FLUSH SCH ×2 (09:23→19:44)
[2016-11-09] MEDS: HEPARIN SODIUM - SQ 10,000 UNITS/ML VIAL SQ SCH ×2 (11:04→19:44)
[2016-11-09] MEDS: INSULIN NovoLIN REGULAR SUPPLEMENTAL SCALE SQ SCH ×3 (12:00→23:34)
--- NOTE | 2016-11-09 12:02 | PD.CONS ---
Consult Service Palliative Care . Consult Requested By Dr. Dumont . Primary Care Physician Unknown . Reason for Consultation a. To assist with evaluation and management of symptoms including: pain; dyspnea; encephalopathy b. To assist medical decision maker(s) with: better understanding of current medical conditions; weighing benefits/burdens of medical treatment options; making medical treatment decisions. . HPI History of Present Illness Ms. Crawford is an 86 y/o female Mormon with little prior past medical history who was brought to the [facility] ED on 11/08/16 via private vehicle after being found unresponsive in her bed. History is provided by the patient's son who is somewhat guarded with information. The patient apparently has dementia of at least 7 years duration.. She lived in a private home with her sister. She required help with bathing, toileting, dressing, and ambulation. She apparently was able to feed herself. She would say very a few intelligible words. The patient reportedly did suffer a fall the night before ER presentation but it was uncertain if there was loss of consciousness. The patient was able to ambulate with help back to her bedroom. The next time she was checked she was unresponsive. Other than a history of probable dementia, the son denied any other significant health history. Specifically, she had no hospitalizations other than childbirth. She had undergone no surgeries, was taking no medications, and had no known allergies. She had no underlying pain syndromes. Upon arrival at the emergency department the patient was nonverbal, had snoring type respirations, and was minimally responsive (she would withdraw to noxious stimulus). GCS was 6. Vital signs in the emergency department revealed the following: Temperature 97.6; pulse 75; respiratory rate 18; blood pressure 111/59. Physical examination performed by the emergency legal department manager noted the following: Hematoma was noted over the right frontotemporal area. Pupils were 2 mm bilaterally and sluggishly responsive to light. Lower dentures were in the posterior oropharynx. Rhonchi were noted in the right lung base. The patient was nonverbal, had her eyes closed, had minimal gag response, and was able to withdraw to pain. Remainder of the examination was unremarkable. Initial diagnostic testing revealed the following; * CBC showed WBC 8.2; hemoglobin 8.3; platelet count 105 * Coagulation profile showed PT 13.7; INR 1.2; PTT 27.8 * Chemstrip profile showed sodium 144; potassium 4.6; chloride 110; CO2 25; anion gap 9; BUN 23; creatinine 0.89; GFR 60; glucose 152; calcium 7.6 * Liver function studies showed total bilirubin 1.9; AST 196; ALT 33; alkaline phosphatase 104; total protein 6.2; albumin 2.8 * Urinalysis was remarkable for 30 mg of protein; trace leukocyte esterase; many bacteria * Cardiac serology showed total CK 3354; total CK MB 14.2; CK-MB percent 0.4; troponin 0.08 * Urine tox screen was negative * ABGs on the ventilator at 50% FiO2 showed pH 7.46; PCO2 33; PO2 230; bicarbonate 33; base excess -0.1 * EKG showed sinus arrhythmia with a rate of 77. Q waves were noted in 3 and aVF * CT of the head showed low density throughout the posterior circulation regions including the susan, midbrain, cerebellar hemispheres, occipital and posterior medial temporal lobes as well as right thalamus. Radiology felt this likely represented areas of infarction involving the posterior territory circulation. * Chest x-ray showed no evidence of significant air space disease or congestion The patient was intubated and placed on mechanical ventilation due to inability to protect her own airway. 32 mg of aspirin was given by suppository as well in the emergency department. Due to the elevated CK level, 1 L of IV fluids was given. Neurology was consulted, evaluated the patient in the emergency department and was able to speak with family. This was felt to be a devastating stroke for which further aggressive care would be of little to no value. Critical care was consulted and the patient was transferred to the medical intensive care unit. Since admission, the patient has had hypothermia. Temperature has been as low as 92.0. Other vital signs have been stable. The patient has remained minimally responsive. She is currently under mild sedation with fentanyl at 10 mcg/h. . Function/Cognitive Trajectory As noted above, the patient has had evidence of dementia for over 7 years. Son reports they brought her to a physician approximately 7 years ago. The physician recommended a trial of some anti-dementia meds. These apparently cause elevation in her blood pressure. The family decided to stop the medication and has not been back to a physician since. The patient requires assistance with all of her ADLs except eating. She has few intelligible words at this point. Per her son, she has not appeared to be painful in the months leading up to this hospitalization. . Review of Systems ROS Limitations: Clinical Condition (patient is minimally responsive, intubated , mechanically ventilated and has dementia. She is unable to provide her own review of systems. Her son was rather guarded in terms of reviewing information. Review of systems was obtained as well as possible from her son and the medical record.) Constitutional: COMPLAINS OF: Generalized weakness, DENIES: Fatigue, Weight gain, Weight loss, Pain Eyes: DENIES: Vision loss Ears, nose, mouth, throat: COMPLAINS OF: Hearing loss Respiratory: DENIES: Cough, Sputum production, Shortness of breath Cardiovascular: DENIES: Chest pain, Palpitations, Lower Extremity Edema Gastrointestinal: DENIES: Bloody stools, Constipation, Diarrhea, Nausea, Vomiting Musculoskeletal: DENIES: Joint pain, Muscle aches, Back pain, Neck pain Hematologic/Lymphatics: DENIES: History of transfusions (patient is Mormon and does not desire blood products) Neurologic: COMPLAINS OF: Abnormal gait (required some assistance), Poor Balance, DENIES: Seizures Past Family Social History Coded Allergies: No Known Allergies (Unverified , 11/08/16) Past Medical History Past medical history is only remarkable for reported dementia. . Past Surgical History No prior surgeries . Reported Medications No regular medications taken prior to this hospitalization . Current Medications Medications (Trade) Dose Ordered Sig/Swati Route Start Time Stop Time Status Last Admin (fentaNYL DRIP) 250 ml @ 0 mls/hr TITRATE IV 11/08/16 17:45 11/08/16 18:18 Magnesium Oxide 800 mg 800 mg UNSCH PRN PO 11/08/16 19:45 Magnesium Sulfate 4 gm/Sodium Chloride 100 ml @ 50 mls/hr UNSCH PRN IV 11/08/16 19:45 Magnesium Sulfate 2 gm/Sodium Chloride 100 ml @ 50 mls/hr UNSCH PRN IV 11/08/16 19:45 Potassium Chloride 100 ml @ 50 mls/hr Q2H PRN IV 11/08/16 19:45 Potassium Chloride 100 ml @ 50 mls/hr Q2H PRN IV 11/08/16 19:45 Potassium Chloride 100 ml @ 50 mls/hr Q2H PRN IV 11/08/16 19:45 (KCl 40 Meq Premix Inj) 100 ml @ 25 mls/hr UNSCH PRN IV 11/08/16 19:45 (K-Phos) 2,000 mg Q4H PRN PO 11/08/16 19:45 Potassium Phosphate 2000 mg 2,000 mg UNSCH PRN PO/TUBE 11/08/16 19:45 Potassium Phosphate 30 mmol/ Sodium Chloride 260 ml @ 42 mls/hr UNSCH PRN IV 11/08/16 19:45 (Sodium Phosphate Inj/NS 250 ml Inj) 250 ml @ 42 mls/hr UNSCH PRN IV 11/08/16 19:45 (Peridex 0.12% Liq) 15 ml BID@08,20 MT 11/08/16 20:00 11/09/16 09:23 (D50w (Vial) Inj) 25 ml UNSCH PRN IV PUSH 11/08/16 19:45 Insulin Human Regular 1 1 Q6HR SQ 11/09/16 00:00 Nicardipine HCl 25 mg/Sodium Chloride 260 ml @ 0 mls/hr TITRATE IV 11/08/16 19:45 (NS 1000 ml Inj) 1,000 ml @ 84 mls/hr [id number] IV 11/08/16 19:45 11/09/16 04:42 (NS Flush) 2 ml UNSCH PRN IV FLUSH 11/08/16 19:45 (NS Flush) 2 ml BID IV FLUSH 11/08/16 21:00 11/09/16 09:23 (Protonix Inj) 40 mg DAILY IV 11/09/16 09:00 11/09/16 09:20 (Zofran Inj) 4 mg Q6H PRN IV 11/08/16 19:45 (Colace Liq) 100 mg Q12HR G-TUBE 11/08/16 21:00 11/09/16 09:20 (Heparin Inj) 5,000 units Q12H SQ 11/08/16 20:00 11/09/16 11:04 Miscellaneous Information 1 [id number] XX 11/08/16 19:45 (Chlorhexidine 2% Cloth) 3 pack Taper DAILY@04 TOP 11/09/16 04:00 11/05/17 03:59 (Chlorhexidine 2% Cloth) 3 pack UNSCH PRN TOP 11/08/16 19:45 . Family History Son is unaware of the cause of of the patient's parents. Son reports the patient had multiple siblings but is unaware of causes of of any of them and is unaware of any diseases that run in the family. . Substance Use Tobacco: Lifetime nonsmoker Alcohol: No history of alcohol abuse Prescription med abuse: No history of prescription drug abuse Illicits: No known use of illicits . Psychosocial History Son reports the patient is from a country in [place] but would not tell me which country. He reports his mother is now a [place] citizen. The patient is . Son tells me that he is the only child. He lives near his mother and visits her most days. . Spiritual/Cultural Factors The patient is a Mormon. No blood products should be given without first consulting with the son. [facility] support from the patient's congregational. . Living Will: Never completed Health Care Surrogate: Never completed Durable Power of Glove Cutter: Never completed Date completed: Advance directives were never completed . Health Care Surrogate(s): There is no known written designation of health care surrogate . Documented care wishes: There is no written documentation of health care goals/preferences. . Today's verbally stated goals: The patient is unable to verbally state her own health care goals/preferences and will unlikely be able to do so in the future. . Family/friends goals: Son tells me he believes in miracles. He wants to continue aggressive care for now. Because of the patient's Mormon michael, blood products should not be given without first consulting with the patient's son..\\ Ethical and Legal Issues The patient is incapacitated to make her own health care decisions and is not expected to regain capacity to do so. As the patient is a , her son, Wyatt Crawford, is the healthcare proxy. . Physical Exam Vital Signs Date Time Temp Pulse Resp B/P Pulse Ox O2 Delivery O2 Flow Rate FiO2 11/09/16 10:00 86 11/09/16 09:56 100 30 11/09/16 08:00 82 11/09/16 08:00 30 11/09/16 08:00 98.2 82 15 122/58 100 11/09/16 07:00 30 11/09/16 06:00 70 11/09/16 04:18 100 30 11/09/16 04:00 99.4 78 10 107/64 96 11/09/16 04:00 70 11/09/16 04:00 30 11/09/16 02:00 66 11/09/16 01:28 100 30 11/09/16 00:00 30 11/09/16 00:00 95.0 57 10 107/54 95 11/09/16 00:00 66 11/08/16 22:15 100 30 11/08/16 22:00 92.0 56 10 110/53 98 11/08/16 22:00 55 11/08/16 20:59 57 18 112/55 100 Ventilator 11/08/16 19:00 100 30 11/08/16 17:30 100 50 11/08/16 17:30 100 100 11/08/16 17:23 97.6 75 18 111/59 100 Ventilator 50 11/08/16 17:23 100 Ventilator 50 11/08/16 17:17 75 18 100 11/08/16 17:10 75 18 95/53 100 11/08/16 16:56 50 11/08/16 16:51 78 18 115/58 94 . 11/08/16 11/09/16 19:00 07:00 Intake Total 1138 ml Output Total 900 ml Balance 238 ml Intake IV Total 1138 ml Output Urine Total 900 ml . Exam CONSTITUTIONAL/GENERAL: This is an adequately nourished patient, minimally responsive, intubated, mechanically ventilated, sedated, in an MICU bed. No apparent distress. TUBES/LINES/DRAINS: Soft wrist restraints; orotracheal tube; orogastric tube; Tejeda catheter; peripheral IVs; contracture prevention boots SKIN: No jaundice, rashes. Ecchymoses on right forehead. No wounds seen anteriorly. Skin temperature appropriate. Not diaphoretic. Not cool at this time. HEAD: Atraumatic except for the right forehead bruise. Normocephalic. EYES: Pupils equal and round and reactive. Extraocular motions cannot be evaluated. No scleral icterus. No injection or drainage. Fundi not examined. ENT: Unable to evaluate hearing. Nose without bleeding or purulent drainage. Throat without visible erythema, exudates, masses, or lesions. NECK: Trachea midline. Supple, nontender. No palpable thyroid enlargement or nodularity. CARDIOVASCULAR: Regular rate and rhythm without murmurs, gallops, or rubs. No JVD. Peripheral pulses symmetric. RESPIRATORY/CHEST: Symmetric, unlabored respirations. Breath sounds equal bilaterally but are coarse. No wheezes, rales. GASTROINTESTINAL: Abdomen soft, non-tender, nondistended. No hepato-splenomegaly , or palpable masses. No guarding. Bowel sounds present. GENITOURINARY: Without palpable bladder distension. Tejeda catheter in place. MUSCULOSKELETAL: Extremities without clubbing, cyanosis, or edema. No joint tenderness or effusion noted. No calf tenderness. No mottling. LYMPHATICS: No palpable cervical or supraclavicular adenopathy. NEUROLOGICAL: Does not awaken to loud voice or exam. Unable to follow commands. Minimal withdrawal to noxious stimulus PSYCHIATRIC: Unable to evaluate due to level of responsiveness . Diagnostic Tests Laboratory Laboratory Tests Test 11/08/16 11/08/16 11/08/16 11/08/16 16:56 17:40 18:04 21:44 White Blood Count 8.2 TH/MM3 (4.0-11.0) Red Blood Count 4.51 MIL/MM3 (4.00-5.30) Hemoglobin 8.3 GM/DL (11.6-15.3) Hematocrit 28.1 % (35.0-46.0) Mean Corpuscular Volume 62.4 FL (80.0-100.0) Mean Corpuscular Hemoglobin 18.4 PG (27.0-34.0) Mean Corpuscular Hemoglobin 29.5 % Concent (32.0-36.0) Red Cell Distribution Width 19.6 % (11.6-17.2) Platelet Count 105 TH/MM3 (150-450) Mean Platelet Volume 8.9 FL (7.0-11.0) Neutrophils (%) (Auto) 81.1 % (16.0-70.0) Lymphocytes (%) (Auto) 9.0 % (9.0-44.0) Monocytes (%) (Auto) 8.1 % (0.0-8.0) Eosinophils (%) (Auto) 1.2 % (0.0-4.0) Basophils (%) (Auto) 0.6 % (0.0-2.0) Neutrophils # (Auto) 6.6 TH/MM3 (1.8-7.7) Lymphocytes # (Auto) 0.7 TH/MM3 (1.0-4.8) Monocytes # (Auto) 0.7 TH/MM3 (0-0.9) Eosinophils # (Auto) 0.1 TH/MM3 (0-0.4) Basophils # (Auto) 0.0 TH/MM3 (0-0.2) CBC Comment AUTO DIFF Differential Comment AUTO DIFF CONFIRMED Platelet Estimate LOW (NORMAL) Platelet Morphology Comment NORMAL (NORMAL) Target Cells 1+ (NORMAL) Ovalocytes 1+ (NORMAL) Acanthocytes OCC (NORMAL) Keratocytes OCC (NORMAL) Prothrombin Time 13.7 SEC (9.8-11.6) Prothromb Time International 1.2 RATIO Ratio Activated Partial 27.8 SEC Thromboplast Time (24.3-30.1) Sodium Level 144 MEQ/L (136-145) Potassium Level 4.6 MEQ/L (3.5-5.1) Chloride Level 110 MEQ/L (98-107) Carbon Dioxide Level 25.0 MEQ/L (21.0-32.0) Anion Gap 9 MEQ/L (5-15) Blood Urea Nitrogen 23 MG/DL (7-18) Creatinine 0.89 MG/DL (0.50-1.00) Estimat Glomerular Filtration 60 ML/MIN (>89) Rate Random Glucose 152 MG/DL (74-106) Calcium Level 7.6 MG/DL (8.5-10.1) Total Bilirubin 1.9 MG/DL (0.2-1.0) Aspartate Amino Transf 196 U/L (15-37) (AST/SGOT) Alanine Aminotransferase 33 U/L (10-53) (ALT/SGPT) Alkaline Phosphatase 104 U/L (45-117) Total Creatine Kinase 3354 U/L (26-192) Creatine Kinase MB 14.2 NG/ML (0.5-3.6) Creatine Kinase MB % 0.4 % (0.0-4.0) Troponin I 0.08 NG/ML (0.02-0.05) Total Protein 6.2 GM/DL (6.4-8.2) Albumin 2.8 GM/DL (3.4-5.0) Ethyl Alcohol Level LESS THAN 3 MG/DL (0-5) Urine Color YELLOW (YELLW/STRAW) Urine Turbidity HAZY (CLEAR) Urine pH 7.5 (5.0-8.5) Urine Specific [place] 1.017 (1.002-1.035) Urine Protein 30 mg/dL (NEG-TRACE) Urine Glucose (UA) NEG mg/dL (NEG) Urine Ketones NEG mg/dL (NEG) Urine Occult Blood NEG (NEG) Urine Nitrite NEG (NEG) Urine Bilirubin NEG (NEG) Urine Urobilinogen 2.0 MG/DL (LESS THAN 2.0) Urine Leukocyte Esterase TRACE (NEG) Urine RBC 1 /hpf (0-3) Urine WBC 2 /hpf (0-5) Urine Bacteria MANY /hpf (NONE) Urine Mucus FEW /lpf (OCC) Microscopic Urinalysis Comment CATH-CULTURE IND Urine Opiates Screen NEG (NEG) Urine Barbiturates Screen NEG (NEG) Urine Amphetamines Screen NEG (NEG) Urine Benzodiazepines Screen NEG (NEG) Urine Cocaine Screen NEG (NEG) Urine Cannabinoids Screen NEG (NEG) Blood Gas Puncture Site LT RADIAL Blood Gas Patient Temperature 98.6 Blood Gas HCO3 23 mmol/L (22-26) Blood Gas Base Excess -0.1 mmol/L (-2-2) Blood Gas Oxygen Saturation 98 % (90-100) Arterial Blood pH 7.46 (7.380-7.420) Arterial Blood Partial 33 mmHg (38-42) Pressure CO2 Arterial Blood Partial 230 mmHG Pressure O2 (61-120) Arterial Blood Oxygen Content 11.0 Vol % (12.0-20.0) Arterial Blood 2.3 % (0-4) Carboxyhemoglobin Arterial Blood Methemoglobin 0.5 % (0-2) Blood Gas Hemoglobin 7.6 G/DL (12.0-16.0) Oxygen Delivery Device VENTILATOR Blood Gas Ventilator Setting AC 12/450/5+ Blood Gas Inspired Oxygen 50 % Nasal Screen MRSA (PCR) NEGATIVE (NEGATIVE) Test 11/09/16 04:12 White Blood Count 5.6 TH/MM3 (4.0-11.0) Red Blood Count 3.91 MIL/MM3 (4.00-5.30) Hemoglobin 7.1 GM/DL (11.6-15.3) Hematocrit 24.5 % (35.0-46.0) Mean Corpuscular Volume 62.8 FL (80.0-100.0) Mean Corpuscular Hemoglobin 18.1 PG (27.0-34.0) Mean Corpuscular Hemoglobin 28.9 % Concent (32.0-36.0) Red Cell Distribution Width 20.0 % (11.6-17.2) Platelet Count 79 TH/MM3 (150-450) Mean Platelet Volume 9.1 FL (7.0-11.0) Sodium Level 149 MEQ/L (136-145) Potassium Level 3.1 MEQ/L (3.5-5.1) Chloride Level 117 MEQ/L (98-107) Carbon Dioxide Level 21.8 MEQ/L (21.0-32.0) Anion Gap 10 MEQ/L (5-15) Blood Urea Nitrogen 22 MG/DL (7-18) Creatinine 0.60 MG/DL (0.50-1.00) Estimat Glomerular Filtration 94 ML/MIN (>89) Rate Random Glucose 108 MG/DL (74-106) Calcium Level 7.2 MG/DL (8.5-10.1) Protein Corrected Calcium 8.3 MG/DL (8.5-10.1) Total Protein 5.1 GM/DL (6.4-8.2) Triglycerides Level 73 MG/DL (42-150) Cholesterol Level 84 MG/DL (120-200) LDL Cholesterol 30 MG/DL (0-99) HDL Cholesterol 39.3 MG/DL (40.0-60.0) Cholesterol/HDL Ratio 2.13 RATIO . Result Diagram: 11/09/1641111/09/16411 Microbiology Microbiology Date/Time Procedure Status Source Growth 11/08/16 17:40 Aerobic Blood Culture - Preliminary Resulted Blood Peripheral NO GROWTH IN 1 DAY 11/08/16 17:40 Anaerobic Blood Culture - Preliminary Resulted Blood Peripheral NO GROWTH IN 1 DAY 11/08/16 17:40 Urine Culture Received Urine Catheterized Urine Pending 11/08/16 17:44 Aerobic Blood Culture - Preliminary Resulted Blood Peripheral NO GROWTH IN 1 DAY 11/08/16 17:44 Anaerobic Blood Culture - Preliminary Resulted Blood Peripheral NO GROWTH IN 1 DAY . Imaging Last Impressions Head CT 11/08/161656 Signed Impressions: Service Date/Time: Tuesday, November 08, 2016 17:06 - CONCLUSION: Low density seen throughout the posterior circulation regions including the susan and midbrain, cerebellar hemispheres, occipital and posterior medial temporal lobes and right thalamus. This likely represents areas of infarction involving the posterior territory circulation. Jeffery Zhong MD Chest X-Ray 3/15/17 1657 Signed Impressions: Service Date/Time: Tuesday, November 08, 2016 17:12 - CONCLUSION: Endotracheal tube is at the kraig and needs to be withdrawn at least 2 cm. Satisfactory position of nasogastric tube. No evidence of significant airspace disease or congestion. Hill Sequeira MD Carotid Artery Ultrasound 11/08/16 0000 Signed Impressions: Service Date/Time: Tuesday, November 08, 2016 22:24 - CONCLUSION: Mild calcified plaque at the carotid bulbs. No evidence of hemodynamically significant carotid stenosis. José Luis Beltran MD . Procedures * Intubation/mechanical ventilation . Patient/Family Conference Present at Family Conference: Son . Family Conference Time (mins): 20 Family Conference Location: Telephone Issues Discussed: * Palliative care role, purpose, approach * Additional medical, psychosocial, and spiritual history * Patients general health, functional status, and cognitive changes in the months leading up to the current hospitalization * Family understanding of the current medical problems * Family understanding of prognosis * Patients goals of care as best understood from conversations and/or values * Current medical treatment options and benefits/burdens of those options * Questions answered to the best of my ability * Palliative care contact information provided . Assessment and Plan Disease Oriented Problem List: (1) CVA (cerebral vascular accident) Comment: Very large posterior circulation stroke. . (2) Rhabdomyolysis (3) Dementia Comment: Family reports at least a 7 year history of dementia. . (4) Thrombocytopenia (5) Malnutrition Comment: Presenting albumin level was 2.8 . Symptom Scale: (1) Pain 0-10 Scale: Unable to quantify Comment: Patient had no known prior pain syndromes. Current possible sources of pain include prolonged bedbound status; orotracheal intubation; vascular access catheters; Tejeda catheter. . (2) Dyspnea 0-10 Scale: Unable to quantify Comment: Dyspnea currently controlled with mechanical ventilation. . (3) Encephalopathy 0-10 Scale: Unable to quantify Comment: Patient was minimally responsive on arrival and I show no evidence of neurologic recovery. She is currently on very low-dose sedation.. Pertinent Non-Medical Issues Psychosocial: Normally lives with her sister. Her son lives by visits frequently. Spiritual: Patient is a Mormon. Blood products should not be given without the son's permission. Legal: No advance directives. Son would be the appropriate proxy health care decision-maker under the [place] statutes hierarchy. Ethical issues impacting care: Patient is incapacitated to make her own health care decisions and is not expected to regain such capacity . Important Contacts Wyatt Crawford (son and healthcare proxy) [phone] . Prognosis This is an 86-year-old female who was suffered a fairly massive posterior circulation stroke. This is on top of at least a seven-year history of dementia with the patient was already requiring assistance with most of her ADLs. There is a high risk of during this hospitalization. Should she survive, she will probably require tracheostomy to protect her airway as well as ongoing tube feedings. It is unlikely that she will have meaningful interaction with her environment. The patient would certainly be eligible for hospice services at such time that family believes the patient's goals would best be honored by transitioning to "comfort measures only." . Code Status: Full Code Plan == Code Status: The patient's son tells me he would like the patient to remain "full code" at this time. == Decision-making: The patient is incapacitated to make her own health care decisions. It is unlikely she will ever regain capacity. The patient is a and has only one adult child. Thus, under [place] statutes, her son, Wyatt Crawford, is the legal health care proxy. == Goals of medical treatment: The patient is a Mormon. No blood products should be given without the sons expressed permission. The son tells me he believes in miracles. He wants to do everything to keep his mother alive for the time being including resuscitation efforts. He is open to reconsidering these goals at a later date. He certainly understands that it would literally take a miracle to have his mother return to anything near the level of function she had before this devastating stroke. The son is still somewhat in shock from the events of the last 24 hours or so and also says, "I just need more time to think about all this." == Pain: Patient appears to be adequately controlled with the low-dose fentanyl drip.No further recommendations at this time. == Dyspnea: Currently controlled with mechanical ventilation. No further recommendations at this time. == Encephalopathy: Patient's current mental status is due to a combination of her devastating stroke and underlying dementia. It is unlikely we will see much improvement. == Hypothermia: has been under a warming blanket but temperature appears to be normalizing. No further recommendations at this time. == Malnutrition: Patient will be receiving tube feedings as tolerated. == The patient's son and the patient's Sr. Hope to arrive at the hospital late this afternoon. If possible I will try and meet with them and once again review goals of medical treatment. == Palliative care we'll continue to follow to assist with symptom management and to help clarify goals of medical treatment as the clinical course evolves. . Thank you for the opportunity to participate in the care of Ms. Crawford. . Attestation To help prompt me to consider important information that might be impacting today's encounter and assessment, information from prior notes written by myself or my colleagues may have been "brought forward" into today's note. My signature on this note, however, is an attestation that I personally performed the exam, history, and/or decision-making noted today, and, unless otherwise indicated, the interactions with patient, family, and staff as well as the review of records all occurred today. I also attest that the listed assessment and stated plan reflect my best clinical judgment today based on the combination of historical information, prior notes, and today's exam/ interactions. When time spent is documented, it refers only to time spent today by the signer, or if indicated, combined time spent today by collaborating physician/nurse practitioner. . Karlos Bauer MD Nov 09, 2016 12:01
--- NOTE | 2016-11-09 14:01 | EKG ---
Date Performed: 11/08/2016 Time Performed: 17:01:00 PTAGE: 86 years EKG: Sinus rhythm WITH OCCASIONAL SUPRAVENTRICULAR PREMATURE COMPLEXES POSSIBLE INFERIOR MYOCARDIAL INFARCTION BORDERL INE ECG NO PREVIOUS TRACING DOCTOR: Harish Castillo Interpretating Date/Time 11/09/2016 13:55:04
[2016-11-09] MEDS ORDERED: ARTIFICIAL TEARS OPTH SOLN 15 ML BTL EACH EYE PRN (14:45)
--- NOTE | 2016-11-09 17:39 | HHI.CCPN ---
Subjective Remarks/Hospital Course This is an 86yF with per report no other past medical history who presented to the ER after she was found unresponsive in her bed. According to ER reports, her family saw her normal last night when she had a fall, with unknown LOC. At that point, he helped her back to bed. However, this morning she did not wake up. On arrival to the ER, she was unresponsive only withdrawing to pain. she was intubated for airway protection and a poor GCS. CT head demonstrated massive posterior-circulation ischemic stroke. The patient is currently intubated and unresponsive and cannot provide any additional history. 11/09: No acute changes overnight. Palliative care team has consult with the family regarding goals of care. Currently the patient's sedation fentanyl infusion has been turned off without any response from patient. The patient notably does withdrawal to pain. Objective Vital Signs Date Time Temp Pulse Resp B/P Pulse Ox O2 Delivery O2 Flow Rate FiO2 11/09/16 16:23 30 11/09/16 16:19 100.6 92 15 122/58 100 11/08/16 20:59 Ventilator Intake and Output 11/08/16 11/08/16 11/09/16 08:00 16:00 00:00 Intake Total 615 ml Output Total 650 ml Balance -35 ml Result Diagram: 11/09/16 0412 11/09/16 0412 Other Results Laboratory Tests Test 11/08/16 18:04 Blood Gas Puncture Site LT RADIAL Blood Gas Patient Temperature 98.6 Blood Gas HCO3 23 mmol/L (22-26) Blood Gas Base Excess -0.1 mmol/L (-2-2) Blood Gas Oxygen Saturation 98 % (90-100) Arterial Blood pH 7.46 (7.380-7.420) Arterial Blood Partial 33 mmHg (38-42) Pressure CO2 Arterial Blood Partial 230 mmHG Pressure O2 (61-120) Arterial Blood Oxygen Content 11.0 Vol % (12.0-20.0) Arterial Blood 2.3 % (0-4) Carboxyhemoglobin Arterial Blood Methemoglobin 0.5 % (0-2) Blood Gas Hemoglobin 7.6 G/DL (12.0-16.0) Oxygen Delivery Device VENTILATOR Blood Gas Ventilator Setting AC 12/450/5+ Blood Gas Inspired Oxygen 50 % Imaging Last [address] 11/08/16 8767 Signed Impressions: Service Date/Time: Tuesday, November 08, 2016 17:06 - CONCLUSION: Low density seen throughout the posterior circulation regions including the susan and midbrain, cerebellar hemispheres, occipital and posterior medial temporal lobes and right thalamus. This likely represents areas of infarction involving the posterior territory circulation. Jeffery Zhong MD Chest X-Ray 11/08/16 2385 Signed Impressions: Service Date/Time: Tuesday, November 08, 2016 17:12 - CONCLUSION: Endotracheal tube is at the kraig and needs to be withdrawn at least 2 cm. Satisfactory position of nasogastric tube. No evidence of significant airspace disease or congestion. Hill Sequeira MD Objective Remarks GENERAL: Elderly female, lying in bed, intubated, unresponsive, critically ill. HEENT: pupils 2mm, equal, reactive. normocephalic. atraumatic. mucous membranes moist. NECK: Orotracheally intubated. No JVD. Trachea midline. CHEST: Equal chest rise. Clear to auscultation. CARDIOVASCULAR: Normal rate, regular rhythm. No appreciable murmurs. ABDOMEN: Soft, nontender, nondistended. No guarding. MUSCULOSKELETAL: No peripheral edema. Distal pulses 2+. NEUROLOGICAL: RASS -5. Negative cough. Negative gag. Positive corneals. Pupils as above. No movement to painful stimuli in all 4 extremities. Downgoing Babinski. 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 This far out from her last seen normal, nearly 24 hours, she is not a candidate for any interventional therapy. Unfortunately, given her age, and the extent of the stroke, her prognosis for any reasonable neurologic function is quite poor, and I do not think that we will be able to improve her outcome at all. We will admit her to the ICU and monitor her. Her family expressed wishes for a short course of aggressive medical management. For now, she remains very critically ill. His questions were palliative care result in the family would like to continue aggressive treatment. 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 Use nicardipine as needed Lipid profile 2-D echo pending Carotid ultrasound-no stenosis Subcutaneous heparin, SCDs for DVT prophylaxis Protonix for GI prophylaxis This patient remains critically ill with one or more organ systems which are or may become a threat to life. I have spent in excess of 31 minutes discontinuously in the care and management of this patient. This time is exclusive of procedures, and includes, but is not limited to, evaluation of the patient, review of the medical record, discussions with family, consultants, nursing staff, or respiratory therapy, and documentation in the medical record. Physician Aysha Raymundo MD Nov 09, 2016 17:39
[2016-11-09] MEDS: ARTIFICIAL TEARS OPTH SOLN 15 ML BTL EACH EYE SCH (18:00)
--- NOTE | 2016-11-09 19:01 | EC ---
Study Study Date:11/09/2016 STUDY CONCLUSIONS SUMMARY - Left ventricle: The cavity size was normal. Wall thickness was normal. Systolic function was normal. The estimated ejection fraction was in the range of 55% to 60%. Wall motion was normal; there were no regional wall motion abnormalities. Doppler parameters are consistent with abnormal left ventricular relaxation (grade 1 diastolic dysfunction). - Aortic valve: Mild regurgitation. - Mitral valve: Mild regurgitation. - Tricuspid valve: Mild regurgitation. If LV function is below 40, please consider prescribing an ACEI or ARB or document rationale for non-use. PROCEDURE DATA STUDY STATUS: Elective. Procedure: Transthoracic echocardiography. Image quality was good. Scanning was performed from the parasternal, apical, and subcostal acoustic windows. Study completion: The patient tolerated the procedure well. Transthoracic echocardiography. M-mode, complete 2D, complete spectral Doppler, and color Doppler. Patient status: Inpatient. CARDIAC ANATOMY LEFT VENTRICLE: The cavity size was normal. Wall thickness was normal. Systolic function was normal. The estimated ejection fraction was in the range of 55% to 60%. Wall motion was normal; there were no regional wall motion abnormalities. Doppler parameters are consistent with abnormal left ventricular relaxation (grade 1 diastolic dysfunction). AORTIC VALVE: Trileaflet; normal thickness leaflets. Doppler: Transvalvular velocity was within the normal range. There was no stenosis. Mild regurgitation. Peak gradient: 17mm Hg (S). AORTA: Aortic root: The aortic root was normal in size. MITRAL VALVE: Structurally normal valve. Doppler: Transvalvular velocity was within the normal range. There was no evidence for stenosis. Mild regurgitation. Mean gradient: 3mm Hg (D). Peak gradient: 12mm Hg (D). LEFT ATRIUM: The atrium was at the upper limits of normal in size. RIGHT VENTRICLE: The cavity size was normal. Wall thickness was normal. PULMONIC VALVE: Doppler: Transvalvular velocity was within the normal range. There was no evidence for stenosis. No regurgitation. TRICUSPID VALVE: Structurally normal valve. Doppler: Transvalvular velocity was within the normal range. Mild regurgitation. PULMONARY ARTERY: The main pulmonary artery was normal-sized. Systolic pressure was within the normal range. RIGHT ATRIUM: The atrium was normal in size. PERICARDIUM: There was no pericardial effusion. SYSTEMIC VEINS: Inferior vena cava: The vessel was normal in size. BASIC MEASUREMENTS ADULT Normal Left ventricle LV internal dimension, ED, chordal level, *42.5 mm 43-52 PLAX LV internal dimension, ES, chordal level, 30.3 mm 23-38 PLAX Fractional shortening, chordal level, PLAX *29 % >29 LV posterior wall thickness, ED 5.24 mm IVS/LVPW ratio, ED *1.85 <1.3 Ventricular septum Septal thickness, ED 9.67 mm Aortic valve Leaflet separation 21 mm 15-26 Left atrium Anterior-posterior dimension 28 mm Right ventricle RV internal dimension, ED, PLAX 22.6 mm 19-38 BASIC MEASUREMENTS ADULT Normal Aortic valve Leaflet separation 21 mm 15-26 Aorta Root diameter, ED 32 mm 20-37 DOPPLER MEASUREMENTS ADULT Normal Aortic valve Peak velocity, S 206 cm/s VTI, S 41.1 cm Peak gradient, S 17 mm Hg Mitral valve Peak E-wave velocity 77.1 cm/s Peak A-wave velocity 130 cm/s Mean velocity, D 82.5 cm/s Mean gradient, D 3 mm Hg Peak gradient, D 12 mm Hg Peak E/A ratio 0.6 Tricuspid valve Regurgitant peak velocity 257 cm/s Peak RV-RA gradient, S 26 mm Hg Maximal regurgitant velocity 257 cm/s LEGEND: Mean values are shown as u=mean value. Asterisk (*) medrano values outside specified normal range. Prepared and signed by Stiven Hardin [id number]
[2016-11-09] MEDS: POTASSIUM CHLORIDE 20 MEQ PWD PACKET PO SCH (20:00)
[2016-11-09 21:02] LABS: MEAN CORPUSCULAR HGB CONC 28.6 % (32.0-36.0)
[2016-11-10] VITALS (16 sets, daily range): BP systolic 115–135; BP diastolic 55–63; PULSE 76–102; RESP 15–20; TEMP 97.7–101; O2SAT 100
[2016-11-10] MEDS: POTASSIUM CHLORIDE 20 MEQ PWD PACKET PO SCH (01:51)
[2016-11-10] MEDS: CHLORHEXIDINE GLUCONATE 2 % 1 PACK (2 CLOTHS) TOP SCH (03:31)
[2016-11-10] MEDS: RESP: ALBUTEROL 2.5 MG/IPRATROPIUM 0.5 MG NEB (SCH) INH ×4 (04:13→20:25)
[2016-11-10 05:29] LABS: HEMATOCRIT 25.7 % (35.0-46.0); MEAN CELL VOLUME 63.4 FL (80.0-100.0); MEAN CORPUSCULAR HEMOGLOBIN 18.1 PG (27.0-34.0); PLATELET COUNT 85 TH/MM3 (150-450); RED BLOOD COUNT 4.05 MIL/MM3 (4.00-5.30); WHITE BLOOD COUNT 12.5 TH/MM3 (4.0-11.0)
[2016-11-10 05:31] LABS: REVIEW FLAG FINAL
[2016-11-10 05:46] LABS: BICARBONATE 19.9 MEQ/L (21.0-32.0); POTASSIUM 4.9 MEQ/L (3.5-5.1)
[2016-11-10] MEDS: INSULIN NovoLIN REGULAR SUPPLEMENTAL SCALE SQ SCH ×4 (05:57→23:46)
[2016-11-10 06:03] LABS: CALCIUM-PROTEIN CORRECTED 8.2 MG/DL (8.5-10.1)
[2016-11-10] MEDS: ARTIFICIAL TEARS OPTH SOLN 15 ML BTL EACH EYE SCH ×3 (07:29→18:08)
[2016-11-10] MEDS: CHLORHEXIDINE 0.12% (ORAL KIT) 15 ML CUP MT SCH ×2 (07:29→20:00)
[2016-11-10] MEDS: DOCUSATE SODIUM 100 MG/10 ML UDC G-TUBE SCH ×2 (07:29→20:11)
[2016-11-10] MEDS: HEPARIN SODIUM - SQ 10,000 UNITS/ML VIAL SQ SCH ×2 (07:29→20:12)
[2016-11-10] MEDS: PANTOPRAZOLE SODIUM 40 MG VIAL IV SCH (07:29)
[2016-11-10] MEDS: SODIUM CHLORIDE 0.9% FLUSH 5 ML FLUSH IV FLUSH SCH ×2 (07:30→20:12)
--- NOTE | 2016-11-10 11:56 | HHI.CCPN ---
Subjective Remarks/Hospital Course This is an 86yF with per report no other past medical history who presented to the ER after she was found unresponsive in her bed. According to ER reports, her family saw her normal last night when she had a fall, with unknown LOC. At that point, he helped her back to bed. However, this morning she did not wake up. On arrival to the ER, she was unresponsive only withdrawing to pain. she was intubated for airway protection and a poor GCS. CT head demonstrated massive posterior-circulation ischemic stroke. The patient is currently intubated and unresponsive and cannot provide any additional history. 11/09: No acute changes overnight. Palliative care team has consult with the family regarding goals of care. Currently the patient's sedation fentanyl infusion has been turned off without any response from patient. The patient notably does withdrawal to pain. 11/10: No change in neurological status. [id number]. The patient withdraws to pain 4 extremities. The patient currently on no sedation, fentanyl infusion discontinued yesterday. Tube feeds were initiated. The patient's urine culture grew back Escherichia coli, the patient was started on antibiotics. Extensive discussion with son regarding patient's neurological status, son Wyatt has had extensive discussion with palliative care.The son feels that yesterday when the patient was spoken to in [place]ag[place] the patient squeezed his hand and desires aggressive treatment. The patient's neuro status is unchanged, totally unresponsive with occasional reflexive twitching of feet B/L. Follow-up with neurology Dr. Pack, guarding any further imaging studies. Objective Vital Signs Date Time Temp Pulse Resp B/P Pulse Ox O2 Delivery O2 Flow Rate FiO2 11/10/16 08:20 100 30 11/10/16 06:00 98 11/10/16 04:00 100.4 20 125/56 11/08/16 20:59 Ventilator Intake and Output 11/09/16 11/09/16 11/10/16 08:00 16:00 00:00 Intake Total 523 ml 736 ml 662 ml Output Total 250 ml 100 ml 325 ml Balance 273 ml 636 ml 337 ml Result Diagram: 11/10/16 0426 11/10/16 0426 Imaging Last [address] 11/08/16 0520 Signed Impressions: Service Date/Time: Tuesday, November 08, 2016 17:06 - CONCLUSION: Low density seen throughout the posterior circulation regions including the susan and midbrain, cerebellar hemispheres, occipital and posterior medial temporal lobes and right thalamus. This likely represents areas of infarction involving the posterior territory circulation. Jeffery Zhong MD Chest X-Ray 11/08/16 4736 Signed Impressions: Service Date/Time: Tuesday, November 08, 2016 17:12 - CONCLUSION: Endotracheal tube is at the kraig and needs to be withdrawn at least 2 cm. Satisfactory position of nasogastric tube. No evidence of significant airspace disease or congestion. Hill Sequeira MD Objective Remarks GENERAL: Elderly female, lying in bed, intubated, unresponsive, critically ill. HEENT: pupils 2mm, equal, reactive. normocephalic. atraumatic. mucous membranes moist. NECK: Orotracheally intubated. No JVD. Trachea midline. CHEST: Equal chest rise. Clear to auscultation. CARDIOVASCULAR: Normal rate, regular rhythm. No appreciable murmurs. ABDOMEN: Soft, nontender, nondistended. No guarding. MUSCULOSKELETAL: No peripheral edema. Distal pulses 2+. NEUROLOGICAL: RASS -5. Negative cough. Negative gag. Positive corneal reflex. Pupils as above. Withdraws to painful stimuli in all 4 extremities. Downgoing Babinski. 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 She was last seen normal, nearly 24 hours, she was not a candidate for any interventional therapy. Unfortunately, given her age, and the extent of the stroke, her prognosis for any reasonable neurologic function is quite poor, and I do not think that we will be able to improve her outcome at all. Her family expressed wishes for a short course of aggressive medical management. Wyatt, the son , questions were palliative care result in the family would like to continue aggressive treatment. 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 Pack No sedatives Repeat head CT per neurology Vent bundle, Head of bed 30, when necessary nebs Wean FiO2 for goal SPO2 greater than 92% Goal systolic blood pressure less than 180. Use nicardipine as needed 2-D echo -EF 5560 %, mild aortic mitral and tricuspid regurgitation, No RWMA Carotid ultrasound-no stenosis Subcutaneous heparin, SCDs for DVT prophylaxis Protonix for GI prophylaxis This patient remains critically ill with one or more organ systems which are or may become a threat to life. I have spent in excess of 30 minutes discontinuously in the care and management of this patient. This time is exclusive of procedures, and includes, but is not limited to, evaluation of the patient, review of the medical record, discussions with family, consultants, nursing staff, or respiratory therapy, and documentation in the medical record. Physician Aysha Raymundo MD Nov 10, 2016 11:56
[2016-11-10] MEDS: FREE WATER G-TUBE SCH ×3 (11:57→20:00)
[2016-11-10] MEDS: PIPERACIL-TAZO 3.375 GM PREMIX 50 ML IV SCH ×3 (11:57→23:46)
--- NOTE | 2016-11-10 14:47 | HHI.PR ---
Subjective Allergies Exam I&O / VS 11/09/16 11/09/16 11/10/16 15:00 23:00 07:00 Intake Total 736 ml 662 ml 705 ml Output Total 100 ml 325 ml 250 ml Balance 636 ml 337 ml 455 ml Intake IV Total 736 ml 602 ml 583 ml Tube Feeding 122 ml Other 60 ml Output Urine Total 100 ml 300 ml 250 ml Gastric Drainage Total 25 ml Vital Signs Date Time Temp Pulse Resp B/P Pulse Ox O2 Delivery O2 Flow Rate FiO2 11/10/16 12:00 30 11/10/16 12:00 99.8 81 15 118/56 100 11/10/16 12:00 81 11/10/16 10:00 86 11/10/16 08:20 100 30 11/10/16 08:00 90 11/10/16 08:00 99.9 90 17 115/55 100 11/10/16 08:00 30 11/10/16 06:00 98 11/10/16 04:00 30 11/10/16 04:00 100 30 11/10/16 04:00 98 11/10/16 04:00 100.4 98 20 125/56 11/10/16 02:00 100 11/10/16 00:00 30 11/10/16 00:00 102 11/10/16 00:00 101.0 102 20 135/63 11/09/16 22:00 112 11/09/16 20:20 100 30 11/09/16 20:00 30 11/09/16 20:00 93 11/09/16 20:00 100.1 93 18 128/60 100 11/09/16 18:14 93 11/09/16 16:23 30 11/09/16 16:19 100.6 92 15 122/58 100 11/09/16 16:16 93 11/09/16 15:27 100 30 Objective Micro and Labs Jasmin Pack MD Nov 10, 2016 14:47 Insulin Human Regular 1 1 Q6HR SQ 11/09/16 00:00 11/10/16 11:58 (Cardene Inj/NS 250 ml Inj) 260 ml @ 0 mls/hr TITRATE IV 11/08/16 19:45 (NS Flush) 2 ml UNSCH PRN IV FLUSH 11/08/16 19:45 (NS Flush) 2 ml BID IV FLUSH 11/08/16 21:00 11/10/16 07:30 (Protonix Inj) 40 mg DAILY IV 11/09/16 09:00 11/10/16 07:29 (Zofran Inj) 4 mg Q6H PRN IV 11/08/16 19:45 (Colace Liq) 100 mg Q12HR G-TUBE 11/08/16 21:00 11/10/16 07:29 (Heparin Inj) 5,000 units Q12H SQ 11/08/16 20:00 11/10/16 07:29 Miscellaneous Information 1 Q361D XX 11/08/16 19:45 (Chlorhexidine 2% Cloth) 3 pack Taper DAILY@04 TOP 11/09/16 04:00 11/05/17 03:59 11/10/16 03:31 (Chlorhexidine 2% Cloth) 3 pack UNSCH PRN TOP 11/08/16 19:45 (Tears Naturale Opth Soln) 1 drop TID EACH EYE 11/09/16 18:00 11/10/16 11:57 (Tears Naturale Opth Soln) 1 drop TID PRN EACH EYE 11/09/16 14:45 Water 100 ml 100 ml Q6HR G-TUBE 11/10/16 12:00 11/10/16 11:57 (Zosyn 3.375 Gm Premix) 50 ml @ 100 mls/hr Q6H IV 11/10/16 12:00 11/10/16 11:57 Allergies Allergies Coded Allergies No Known Allergies (Unverified11/08/16) Exam I&O / VS 11/09/16 11/09/16 11/10/16 15:00 23:00 07:00 Intake Total 736 ml 662 ml 705 ml Output Total 100 ml 325 ml 250 ml Balance 636 ml 337 ml 455 ml Intake IV Total 736 ml 602 ml 583 ml Tube Feeding 122 ml Other 60 ml Output Urine Total 100 ml 300 ml 250 ml Gastric Drainage Total 25 ml Vital Signs Date Time Temp Pulse Resp B/P Pulse Ox O2 Delivery O2 Flow Rate FiO2 11/10/16 12:00 30 11/10/16 12:00 99.8 81 15 118/56 100 11/10/16 12:00 81 11/10/16 10:00 86 11/10/16 08:20 100 30 11/10/16 08:00 90 11/10/16 08:00 99.9 90 17 115/55 100 11/10/16 08:00 30 11/10/16 06:00 98 11/10/16 04:00 30 11/10/16 04:00 100 30 11/10/16 04:00 98 11/10/16 04:00 100.4 98 20 125/56 11/10/16 02:00 100 11/10/16 00:00 30 11/10/16 00:00 102 11/10/16 00:00 101.0 102 20 135/63 11/09/16 22:00 112 11/09/16 20:20 100 30 11/09/16 20:00 30 11/09/16 20:00 93 11/09/16 20:00 100.1 93 18 128/60 100 11/09/16 18:14 93 11/09/16 16:23 30 11/09/16 16:19 100.6 92 15 122/58 100 11/09/16 16:16 93 11/09/16 15:27 100 30 Exam Comments Vented, pupils are 2mm, sluggish reaction to light Right eye/conjunctiva is injected Withdraws LE to painful stimuli Objective Radiology Results Last [address] 11/08/161656 Signed Impressions: Service Date/Time: Tuesday, November 08, 2016 17:06 - CONCLUSION: Low density seen throughout the posterior circulation regions including the susan and midbrain, cerebellar hemispheres, occipital and posterior medial temporal lobes and right thalamus. This likely represents areas of infarction involving the posterior territory circulation. Jeffery Zhong MD Chest X-Ray 11/08/161656 Signed Impressions: Service Date/Time: Tuesday, November 08, 2016 17:12 - CONCLUSION: Endotracheal tube is at the kraig and needs to be withdrawn at least 2 cm. Satisfactory position of nasogastric tube. No evidence of significant airspace disease or congestion. Hill Sequeira MD Carotid Artery Ultrasound 11/08/16 0000 Signed Impressions: Service Date/Time: Tuesday, November 08, 2016 22:24 - CONCLUSION: Mild calcified plaque at the carotid bulbs. No evidence of hemodynamically significant carotid stenosis. José Luis Beltran MD Micro and Labs Laboratory Tests Test 11/10/16 04:26 White Blood Count 12.5 Red Blood Count 4.05 Hemoglobin 7.3 Hematocrit 25.7 Mean Corpuscular Volume 63.4 Mean Corpuscular Hemoglobin 18.1 Mean Corpuscular Hemoglobin 28.6 Concent Red Cell Distribution Width 20.0 Platelet Count 85 Mean Platelet Volume 8.9 Sodium Level 150 Potassium Level 4.9 Chloride Level 123 Carbon Dioxide Level 19.9 Anion Gap 7 Blood Urea Nitrogen 24 Creatinine 1.03 Estimat Glomerular Filtration 51 Rate Random Glucose 188 Calcium Level 7.1 Protein Corrected Calcium 8.2 Total Protein 5.1 Date/Time Procedure Status Source Growth 11/08/16 17:44 Aerobic Blood Culture - Preliminary Resulted Blood Peripheral NO GROWTH IN 2 DAYS 11/08/16 17:44 Anaerobic Blood Culture - Preliminary Resulted Blood Peripheral NO GROWTH IN 2 DAYS 11/08/16 17:40 Urine Culture - Preliminary Resulted Urine Catheterized Urine Escherichia Coli Group D Jasmin Ramos MD Nov 10, 2016 14:47
[2016-11-10 21:01] LABS: MEAN CORPUSCULAR HGB CONC 28.3 % (32.0-36.0)
--- NOTE | 2016-11-10 23:01 | HHI.PR ---
Review/Management Diagnosis Massive posterior circulation ischemic stroke Hypoxic respiratory failure Encephalopathy secondary to posterior circulation stroke Plan Neuro- checks Q1h Given the massive posterior circulation stroke, the prognosis for a meaningful neurologic recovery is poor Diagnosis/Plan: Subjective Subjective Comments No acute events reported F/u for Dr. Barrera Active Medications Current Medications Medications (Trade) Dose Ordered Sig/Swati Route Start Time Stop Time Status Last Admin Magnesium Oxide 800 mg 800 mg UNSCH PRN PO 11/08/16 19:45 Magnesium Sulfate 4 gm/Sodium Chloride 100 ml @ 50 mls/hr UNSCH PRN IV 11/08/16 19:45 Magnesium Sulfate 2 gm/Sodium Chloride 100 ml @ 50 mls/hr UNSCH PRN IV 11/08/16 19:45 Potassium Chloride 100 ml @ 50 mls/hr Q2H PRN IV 11/08/16 19:45 Potassium Chloride 100 ml @ 50 mls/hr Q2H PRN IV 11/08/16 19:45 Potassium Chloride 100 ml @ 50 mls/hr Q2H PRN IV 11/08/16 19:45 (KCl 40 Meq Premix Inj) 100 ml @ 25 mls/hr UNSCH PRN IV 11/08/16 19:45 (K-Phos) 2,000 mg Q4H PRN PO 11/08/16 19:45 Potassium Phosphate 2000 mg 2,000 mg UNSCH PRN PO/TUBE 11/08/16 19:45 Potassium Phosphate 30 mmol/ Sodium Chloride 260 ml @ 42 mls/hr UNSCH PRN IV 11/08/16 19:45 (Sodium Phosphate Inj/NS 250 ml Inj) 250 ml @ 42 mls/hr UNSCH PRN IV 11/08/16 19:45 (Peridex 0.12% Liq) 15 ml BID@08,20 MT 11/08/16 20:00 11/10/16 20:00 (D50w (Vial) Inj) 25 ml UNSCH PRN IV PUSH 11/08/16 19:45 Insulin Human Regular 1 1 Q6HR SQ 11/09/16 00:00 11/10/16 18:00 (Cardene Inj/NS 250 ml Inj) 260 ml @ 0 mls/hr TITRATE IV 11/08/16 19:45 (NS Flush) 2 ml UNSCH PRN IV FLUSH 11/08/16 19:45 (NS Flush) 2 ml BID IV FLUSH 11/08/16 21:00 11/10/16 20:12 (Protonix Inj) 40 mg DAILY IV 11/09/16 09:00 11/10/16 07:29 (Zofran Inj) 4 mg Q6H PRN IV 11/08/16 19:45 (Colace Liq) 100 mg Q12HR G-TUBE 11/08/16 21:00 11/10/16 20:11 (Heparin Inj) 5,000 units Q12H SQ 11/08/16 20:00 11/10/16 20:12 Miscellaneous Information 1 Q361D XX 11/08/16 19:45 (Chlorhexidine 2% Cloth) 3 pack Taper DAILY@04 TOP 11/09/16 04:00 11/05/17 03:59 11/10/16 03:31 (Chlorhexidine 2% Cloth) 3 pack UNSCH PRN TOP 11/08/16 19:45 (Tears Naturale Opth Soln) 1 drop TID EACH EYE 11/09/16 18:00 11/10/16 18:08 (Tears Naturale Opth Soln) 1 drop TID PRN EACH EYE 11/09/16 14:45 Water 100 ml 100 ml Q6HR G-TUBE 11/10/16 12:00 11/10/16 20:00 (Zosyn 3.375 Gm Premix) 50 ml @ 100 mls/hr Q6H IV 11/10/16 12:00 11/10/16 18:08 Allergies Allergies Coded Allergies No Known Allergies (Unverified11/08/16) Exam I&O / VS 11/09/16 11/09/16 11/10/16 15:00 23:00 07:00 Intake Total 736 ml 662 ml 705 ml Output Total 100 ml 325 ml 250 ml Balance 636 ml 337 ml 455 ml Intake IV Total 736 ml 602 ml 583 ml Tube Feeding 122 ml Other 60 ml Output Urine Total 100 ml 300 ml 250 ml Gastric Drainage Total 25 ml Vital Signs Date Time Temp Pulse Resp B/P Pulse Ox O2 Delivery O2 Flow Rate FiO2 11/10/16 22:00 78 11/10/16 20:26 100 30 11/10/16 20:00 76 11/10/16 20:00 30 11/10/16 20:00 97.7 76 20 115/56 100 11/10/16 18:00 78 11/10/16 17:48 100 30 11/10/16 16:00 97.7 80 15 117/57 100 11/10/16 16:00 30 11/10/16 16:00 80 11/10/16 14:00 83 11/10/16 12:00 30 11/10/16 12:00 99.8 81 15 118/56 100 11/10/16 12:00 81 11/10/16 10:00 86 11/10/16 08:20 100 30 11/10/16 08:00 90 11/10/16 08:00 99.9 90 17 115/55 100 11/10/16 08:00 30 11/10/16 06:00 98 11/10/16 04:00 30 11/10/16 04:00 100 30 11/10/16 04:00 98 11/10/16 04:00 100.4 98 20 125/56 11/10/16 02:00 100 11/10/16 00:00 30 11/10/16 00:00 102 11/10/16 00:00 101.0 102 20 135/63 Exam Comments Vented, pupils are 2mm, sluggish reaction to light Right eye/conjunctiva is injected Withdraws LE to painful stimuli Negative cough and gag reflex Objective Micro and Labs Laboratory Tests Test 11/10/16 04:26 White Blood Count 12.5 Red Blood Count 4.05 Hemoglobin 7.3 Hematocrit 25.7 Mean Corpuscular Volume 63.4 Mean Corpuscular Hemoglobin 18.1 Mean Corpuscular Hemoglobin 28.6 Concent Red Cell Distribution Width 20.0 Platelet Count 85 Mean Platelet Volume 8.9 Sodium Level 150 Potassium Level 4.9 Chloride Level 123 Carbon Dioxide Level 19.9 Anion Gap 7 Blood Urea Nitrogen 24 Creatinine 1.03 Estimat Glomerular Filtration 51 Rate Random Glucose 188 Calcium Level 7.1 Protein Corrected Calcium 8.2 Total Protein 5.1 Date/Time Procedure Status Source Growth 11/08/16 17:44 Aerobic Blood Culture - Preliminary Resulted Blood Peripheral NO GROWTH IN 2 DAYS 11/08/16 17:44 Anaerobic Blood Culture - Preliminary Resulted Blood Peripheral NO GROWTH IN 2 DAYS 11/08/16 17:40 Urine Culture - Preliminary Resulted Urine Catheterized Urine Escherichia Coli Group D Jasmin Ramos MD Nov 10, 2016 23:01 Jasmin Pack MD Nov 10, 2016 23:01
[2016-11-11] VITALS (20 sets, daily range): BP systolic 118–130; BP diastolic 56–85; PULSE 75–101; RESP 15–25; TEMP 98.3–99.5; O2SAT 99–100
[2016-11-11] MEDS: FREE WATER G-TUBE SCH ×3 (02:00→18:00)
[2016-11-11] MEDS: CHLORHEXIDINE GLUCONATE 2 % 1 PACK (2 CLOTHS) TOP SCH (02:18)
--- NOTE | 2016-11-11 02:36 | RADRPT ---
EXAM DATE/TIME: 11/11/2016 02:03 [facility] COMPARISON: CHEST SINGLE AP, November 08, 2016, 17:12. INDICATIONS : Shortness of breath, possible pulmonary disease. MEDICAL HISTORY : Cerebrovascular disease. SURGICAL HISTORY : None. ENCOUNTER: Subsequent ACUITY: 4 - 6 days PAIN SCORE: Non-responsive. LOCATION: Bilateral chest FINDINGS: Endotracheal tube tip is just beyond kraig in proximal right mainstem bronchus. NG tip projects over the distal gastric region. Basilar airspace disease has increased compared with November 08. CONCLUSION: 1. Increasing basilar airspace disease since November 08. Endotracheal tube tip is just beyond kraig an d in right mainstem bronchus and should be withdrawn about 3 cm. Emeterio Freire MD on November 11, 2016 at 2:33 Board Certified Radiologist. This report was verified electronically.
[2016-11-11] MEDS: RESP: ALBUTEROL 2.5 MG/IPRATROPIUM 0.5 MG NEB (SCH) INH ×4 (03:49→20:25)
[2016-11-11 05:38] LABS: MEAN CELL VOLUME 63.5 FL (80.0-100.0); PLATELET COUNT 74 TH/MM3 (150-450); RED BLOOD COUNT 3.75 MIL/MM3 (4.00-5.30); RED CELL DISTRIBUTION WIDTH 19.9 % (11.6-17.2); WHITE BLOOD COUNT 9.5 TH/MM3 (4.0-11.0)
[2016-11-11 05:40] LABS: REVIEW FLAG FINAL
[2016-11-11 05:41] LABS: HEMATOCRIT 23.8 % (35.0-46.0)
[2016-11-11 05:44] LABS: BICARBONATE 21.6 MEQ/L (21.0-32.0); MAGNESIUM 2.8 MG/DL (1.5-2.5); POTASSIUM 4.1 MEQ/L (3.5-5.1)
[2016-11-11] MEDS: INSULIN NovoLIN REGULAR SUPPLEMENTAL SCALE SQ SCH ×3 (06:00→18:00)
[2016-11-11] MEDS: PIPERACIL-TAZO 3.375 GM PREMIX 50 ML IV SCH ×3 (06:05→18:07)
[2016-11-11] MEDS: DOCUSATE SODIUM 100 MG/10 ML UDC G-TUBE SCH ×2 (08:33→20:16)
[2016-11-11] MEDS: FERROUS SULFATE 300 MG /5ML UDC PO SCH ×2 (08:33→20:16)
[2016-11-11] MEDS: PANTOPRAZOLE SODIUM 40 MG VIAL IV SCH (08:33)
[2016-11-11] MEDS: HEPARIN SODIUM - SQ 10,000 UNITS/ML VIAL SQ SCH ×2 (08:33→20:18)
[2016-11-11] MEDS: CHLORHEXIDINE 0.12% (ORAL KIT) 15 ML CUP MT SCH ×2 (08:34→20:00)
[2016-11-11] MEDS: ARTIFICIAL TEARS OPTH SOLN 15 ML BTL EACH EYE SCH ×3 (08:34→18:00)
[2016-11-11] MEDS: SODIUM CHLORIDE 0.9% FLUSH 5 ML FLUSH IV FLUSH SCH ×2 (08:34→20:20)
--- NOTE | 2016-11-11 13:14 | HHI.CCPN ---
Subjective Remarks/Hospital Course This is an 86yF with per report no other past medical history who presented to the ER after she was found unresponsive in her bed. According to ER reports, her family saw her normal last night when she had a fall, with unknown LOC. At that point, he helped her back to bed. However, this morning she did not wake up. On arrival to the ER, she was unresponsive only withdrawing to pain. she was intubated for airway protection and a poor GCS. CT head demonstrated massive posterior-circulation ischemic stroke. The patient is currently intubated and unresponsive and cannot provide any additional history. 11/09: No acute changes overnight. Palliative care team has consult with the family regarding goals of care. Currently the patient's sedation fentanyl infusion has been turned off without any response from patient. The patient notably does withdrawal to pain. 11/10: No change in neurological status. [id number]. The patient withdraws to pain 4 extremities. The patient currently on no sedation, fentanyl infusion discontinued yesterday. Tube feeds were initiated. The patient's urine culture grew back Escherichia coli, the patient was started on antibiotics. Extensive discussion with son regarding patient's neurological status, lexi Schneider has had extensive discussion with palliative care. Follow-up with neurology Dr. Pack, guarding any further imaging studies. 11/11: Afebrile. She was evaluated yesterday by neurology, Dr. Pack. No meaningful recovery, prognosis poor per his evaluation. The patient was noted to have a hemoglobin of 6.8, however the patient requests no blood products be transfused. Attempted to call lexi Crawford, unable to leave message unable to contact him secondary to no voicemail available. We'll continue to monitor the patient. Palliative care is also following patient. Neurological status unchanged. Objective Vital Signs Date Time Temp Pulse Resp B/P Pulse Ox O2 Delivery O2 Flow Rate FiO2 11/11/16 11:15 100 30 11/11/16 08:00 87 11/11/16 08:00 99.1 15 124/60 11/08/16 20:59 Ventilator Intake and Output 11/10/16 11/10/16 11/11/16 08:00 16:00 00:00 Intake Total 705 ml 916 ml 233 ml Output Total 250 ml 350 ml 300 ml Balance 455 ml 566 ml -67 ml Result Diagram: 11/11/16 0453 11/11/16 0453 Other Results Microbiology Date/Time Procedure Status Source Growth 11/08/16 17:40 Urine Culture - Final Complete Urine Catheterized Urine Escherichia Coli Enterococcus Faecalis Imaging Last [address] 11/08/161656 Signed Impressions: Service Date/Time: Tuesday, November 08, 2016 17:06 - CONCLUSION: Low density seen throughout the posterior circulation regions including the susan and midbrain, cerebellar hemispheres, occipital and posterior medial temporal lobes and right thalamus. This likely represents areas of infarction involving the posterior territory circulation. Jeffery Zhong MD Chest X-Ray 11/08/161656 Signed Impressions: Service Date/Time: Tuesday, November 08, 2016 17:12 - CONCLUSION: Endotracheal tube is at the kraig and needs to be withdrawn at least 2 cm. Satisfactory position of nasogastric tube. No evidence of significant airspace disease or congestion. Hill Sequeira MD Objective Remarks GENERAL: Elderly female, lying in bed, intubated, unresponsive, critically ill. HEENT: pupils 2mm, equal, reactive. normocephalic. atraumatic. mucous membranes moist. NECK: Orotracheally intubated. No JVD. Trachea midline. CHEST: Equal chest rise. Clear to auscultation. CARDIOVASCULAR: Normal rate, regular rhythm. No appreciable murmurs. ABDOMEN: Soft, nontender, nondistended. No guarding. MUSCULOSKELETAL: No peripheral edema. Distal pulses 2+. NEUROLOGICAL: RASS -5. Negative cough. Negative gag. Positive corneal reflex. Pupils as above. Withdraws to painful stimuli in all 4 extremities. Downgoing Babinski. 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 She was last seen normal, nearly 24 hours, she was not a candidate for any interventional therapy. Unfortunately, given her age, and the extent of the stroke, her prognosis for any reasonable neurologic function is quite poor, and I do not think that we will be able to improve her outcome at all. Her family expressed wishes for a short course of aggressive medical management. Wyatt, the son , questions were palliative care result in the family would like to continue aggressive treatment. Active problems: Massive posterior circulation ischemic CVA Hypoxic and hypercarbic respiratory failure Severe encephalopathy secondary to stroke Anemia-chronic Plan Every hour neuro checks -Currently GCS 6T, withdraws to pain -Follow-up neurology recommendations-Dr. Pack, per his evaluation prognosis no meaningful recovery No sedatives Vent bundle, Head of bed 30, when necessary nebs Wean FiO2 for goal SPO2 greater than 92% Goal systolic blood pressure less than 180. Use nicardipine as needed 2-D echo -EF 5560 %, mild aortic mitral and tricuspid regurgitation, No RWMA Carotid ultrasound-no stenosis Subcutaneous heparin, SCDs for DVT prophylaxis Protonix for GI prophylaxis Dispo: Palliative care medicine is following extensive discussion with the patient's son, Wyatt Crawford-plan is to continue aggressive treatment. Level 3 Physician Aysha Raymundo MD Nov 11, 2016 13:14
[2016-11-11 21:01] LABS: MEAN CORPUSCULAR HGB CONC 28.1 % (32.0-36.0)
[2016-11-12] VITALS (18 sets, daily range): BP systolic 111–127; BP diastolic 56–73; PULSE 68–91; RESP 15; TEMP 97.8–101.3; O2SAT 98–100
[2016-11-12] MEDS: PIPERACIL-TAZO 3.375 GM PREMIX 50 ML IV SCH ×4 (01:40→17:02)
[2016-11-12] MEDS: RESP: ALBUTEROL 2.5 MG/IPRATROPIUM 0.5 MG NEB (SCH) INH ×4 (03:23→20:27)
[2016-11-12] MEDS: CHLORHEXIDINE GLUCONATE 2 % 1 PACK (2 CLOTHS) TOP SCH (04:00)
[2016-11-12 05:47] LABS: HEMATOCRIT 22.9 % (35.0-46.0); MEAN CELL VOLUME 64.7 FL (80.0-100.0); MEAN CORPUSCULAR HEMOGLOBIN 18.1 PG (27.0-34.0); PLATELET COUNT 65 TH/MM3 (150-450); RED BLOOD COUNT 3.54 MIL/MM3 (4.00-5.30); RED CELL DISTRIBUTION WIDTH 20.2 % (11.6-17.2); WHITE BLOOD COUNT 5.2 TH/MM3 (4.0-11.0)
[2016-11-12 05:55] LABS: REVIEW FLAG FINAL
[2016-11-12] MEDS: FREE WATER G-TUBE SCH ×4 (05:55→17:02)
[2016-11-12] MEDS: INSULIN NovoLIN REGULAR SUPPLEMENTAL SCALE SQ SCH ×3 (05:57→12:00)
[2016-11-12 06:32] LABS: BICARBONATE 23.7 MEQ/L (21.0-32.0); MAGNESIUM 2.9 MG/DL (1.5-2.5); POTASSIUM 4.4 MEQ/L (3.5-5.1)
[2016-11-12] MEDS: CHLORHEXIDINE 0.12% (ORAL KIT) 15 ML CUP MT SCH ×2 (07:56→20:00)
[2016-11-12] MEDS: DOCUSATE SODIUM 100 MG/10 ML UDC G-TUBE SCH ×2 (07:57→20:51)
[2016-11-12] MEDS: FERROUS SULFATE 300 MG /5ML UDC PO SCH ×2 (07:57→20:51)
[2016-11-12] MEDS: PANTOPRAZOLE SODIUM 40 MG VIAL IV SCH (07:57)
[2016-11-12] MEDS: HEPARIN SODIUM - SQ 10,000 UNITS/ML VIAL SQ SCH ×2 (07:58→20:52)
[2016-11-12] MEDS: SODIUM CHLORIDE 0.9% FLUSH 5 ML FLUSH IV FLUSH SCH ×2 (07:59→20:53)
[2016-11-12] MEDS: ARTIFICIAL TEARS OPTH SOLN 15 ML BTL EACH EYE SCH ×3 (07:59→17:59)
--- NOTE | 2016-11-12 11:26 | HHI.CCPN ---
Subjective Remarks/Hospital Course This is an 86yF with per report no other past medical history who presented to the ER after she was found unresponsive in her bed. According to ER reports, her family saw her normal last night when she had a fall, with unknown LOC. At that point, he helped her back to bed. However, this morning she did not wake up. On arrival to the ER, she was unresponsive only withdrawing to pain. she was intubated for airway protection and a poor GCS. CT head demonstrated massive posterior-circulation ischemic stroke. The patient is currently intubated and unresponsive and cannot provide any additional history. 11/09: No acute changes overnight. Palliative care team has consult with the family regarding goals of care. Currently the patient's sedation fentanyl infusion has been turned off without any response from patient. The patient notably does withdrawal to pain. 11/10: No change in neurological status. E1V1M4. The patient withdraws to pain 4 extremities. The patient currently on no sedation, fentanyl infusion discontinued yesterday. Tube feeds were initiated. The patient's urine culture grew back Escherichia coli, the patient was started on antibiotics. Extensive discussion with son regarding patient's neurological status, lexi Schneider has had extensive discussion with palliative care. Follow-up with neurology Dr. Pack, guarding any further imaging studies. 11/11: Afebrile. She was evaluated yesterday by neurology, Dr. Pack. No meaningful recovery, prognosis poor per his evaluation. The patient was noted to have a hemoglobin of 6.8, however the patient requests no blood products be transfused. Attempted to call lexi Crawford, unable to leave message unable to contact him secondary to no voicemail available. We'll continue to monitor the patient. Palliative care is also following patient. Neurological status unchanged. 11/12: No change in neurological status, reflexive neurological spasms noted left lower leg continues. Platelet count noted to be decreasing slightly, heparin SQ placed on hold, the patient continues to have SCD's. Sodium level 153 today, despite free water flushes will increase volume of free water flushes. Objective Vital Signs Date Time Temp Pulse Resp B/P Pulse Ox O2 Delivery O2 Flow Rate FiO2 11/12/16 10:00 80 11/12/16 08:51 99 30 11/12/16 08:00 97.8 15 113/57 11/08/16 20:59 Ventilator Intake and Output 3/18/17 3/18/17 3/19/17 08:00 16:00 00:00 Intake Total 446 ml 703 ml 419 ml Output Total 250 ml 250 ml 225 ml Balance 196 ml 453 ml 194 ml Result Diagram: 11/12/16 0500 11/12/16 0500 Imaging Last [address] 11/08/161656 Signed Impressions: Service Date/Time: Tuesday, November 08, 2016 17:06 - CONCLUSION: Low density seen throughout the posterior circulation regions including the susan and midbrain, cerebellar hemispheres, occipital and posterior medial temporal lobes and right thalamus. This likely represents areas of infarction involving the posterior territory circulation. Jeffery Zhong MD Chest X-Ray 11/08/161656 Signed Impressions: Service Date/Time: Tuesday, November 08, 2016 17:12 - CONCLUSION: Endotracheal tube is at the kraig and needs to be withdrawn at least 2 cm. Satisfactory position of nasogastric tube. No evidence of significant airspace disease or congestion. Hill Sequeira MD Objective Remarks GENERAL: Elderly female, lying in bed, intubated, unresponsive, critically ill. HEENT: pupils 2mm, equal, reactive. normocephalic. atraumatic. mucous membranes moist. NECK: Orotracheally intubated. No JVD. Trachea midline. CHEST: Equal chest rise. Clear to auscultation. CARDIOVASCULAR: Normal rate, regular rhythm. No appreciable murmurs. ABDOMEN: Soft, nontender, nondistended. No guarding. MUSCULOSKELETAL: No peripheral edema. Distal pulses 2+. NEUROLOGICAL: RASS -5. Negative cough. Negative gag. Positive corneal reflex. Pupils as above. Withdraws to painful stimuli in all 4 extremities. Downgoing Babinski. 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 She was last seen normal, nearly 24 hours, she was not a candidate for any interventional therapy. Unfortunately, given her age, and the extent of the stroke, her prognosis for any reasonable neurologic function is quite poor, and I do not think that we will be able to improve her outcome at all. Her family expressed wishes for a short course of aggressive medical management. Wyatt, the son , questions were palliative care result in the family would like to continue aggressive treatment. Active problems: Massive posterior circulation ischemic CVA Hypoxic and hypercarbic respiratory failure Severe encephalopathy secondary to stroke Anemia-chronic Hyperglycemia of critical illness Thrombocytopenia Plan Every hour neuro checks -Currently GCS 6T, withdraws to pain only intermittently -Follow-up neurology recommendations-Dr. Pack, per his evaluation prognosis no meaningful recovery No sedatives Vent bundle, Head of bed 30, when necessary nebs Wean FiO2 for goal SPO2 greater than 92% Goal systolic blood pressure less than 180. Use nicardipine as needed 2-D echo -EF 5560 %, mild aortic mitral and tricuspid regurgitation, No RWMA Carotid ultrasound-no stenosis Subcutaneous heparin on hold secondary to thrombocytopenia, SCDs for DVT prophylaxis -Glucose level 362, will consider placing a medium dose sliding scale regimen- Continue to monitor Protonix for GI prophylaxis Dispo: Palliative care medicine is following extensive discussion with the patient's son, Wyatt Crawford-plan is to continue aggressive treatment. Discussed with Wyatt , disposition of patient, if patient receives a tracheostomy and PEG placement. He stated that he did not want his mother to remain in the vegetative state. He requested to speak with Dr. Bauer on Sunday, to clarify plans prior to any initiation of a tracheostomy or PEG. Level 3 Physician Aysha Raymundo MD Nov 12, 2016 11:26
[2016-11-12] MEDS: HIGH DOSE INSULIN NOVOLIN REGULAR SUPPLEMENTAL SCALE SQ SCH ×3 (12:07→20:00)
[2016-11-12] MEDS: ACETAMINOPHEN 650 MG/20.3 ML UDC OG-TUBE PRN (17:02)
[2016-11-12 21:00] LABS: MEAN CORPUSCULAR HGB CONC 28.8 % (32.0-36.0)
[2016-11-13] VITALS (17 sets, daily range): BP systolic 108–118; BP diastolic 53–57; PULSE 63–86; RESP 15–19; TEMP 96.4–101.3; O2SAT 98–100
[2016-11-13] MEDS: PIPERACIL-TAZO 3.375 GM PREMIX 50 ML IV SCH ×4 (01:26→17:00)
[2016-11-13] MEDS: CHLORHEXIDINE GLUCONATE 2 % 1 PACK (2 CLOTHS) TOP SCH (01:28)
[2016-11-13] MEDS: HIGH DOSE INSULIN NOVOLIN REGULAR SUPPLEMENTAL SCALE SQ SCH ×6 (04:00→20:47)
[2016-11-13 04:31] LABS: MEAN CELL VOLUME 62.7 FL (80.0-100.0); PLATELET COUNT 69 TH/MM3 (150-450); WHITE BLOOD COUNT 4.1 TH/MM3 (4.0-11.0)
[2016-11-13 04:42] LABS: REVIEW FLAG FINAL
[2016-11-13] MEDS: FREE WATER G-TUBE SCH ×5 (05:12→16:59)
[2016-11-13 05:31] LABS: BICARBONATE 28.8 MEQ/L (21.0-32.0); POTASSIUM 3.8 MEQ/L (3.5-5.1)
[2016-11-13] MEDS: HEPARIN SODIUM - SQ 10,000 UNITS/ML VIAL SQ SCH ×2 (08:03→20:47)
[2016-11-13] MEDS: DOCUSATE SODIUM 100 MG/10 ML UDC G-TUBE SCH ×2 (08:03→20:47)
[2016-11-13] MEDS: FERROUS SULFATE 300 MG /5ML UDC PO SCH ×2 (08:03→20:47)
[2016-11-13] MEDS: PANTOPRAZOLE SODIUM 40 MG VIAL IV SCH (08:04)
[2016-11-13] MEDS: ARTIFICIAL TEARS OPTH SOLN 15 ML BTL EACH EYE SCH ×3 (08:04→16:59)
[2016-11-13] MEDS: EPOETIN ALFA 10,000 UNITS/ML VIAL SQ SCH (08:07)
[2016-11-13] MEDS: SODIUM CHLORIDE 0.9% FLUSH 5 ML FLUSH IV FLUSH SCH ×2 (08:33→20:48)
[2016-11-13] MEDS: CHLORHEXIDINE 0.12% (ORAL KIT) 15 ML CUP MT SCH ×2 (08:33→20:00)
--- NOTE | 2016-11-13 11:27 | HHI.HCPN ---
Reason for visit a. To assist with evaluation and management of symptoms including: pain; dyspnea; encephalopathy b. To assist medical decision maker(s) with: better understanding of current medical conditions; weighing benefits/burdens of medical treatment options; making medical treatment decisions. . Subjective/Interval History 86 y/o female with devastating posterior circulation stroke remains intubated, mechanically ventilated, minimally responsive in an MICU bed. She has been off all sedation for several days. At time of my visit, responsiveness is limited to decerebrate (extensor) posturing to noxious stimulus. Tmax 101.3. Other VS stable. 02 sats in upper 90s on 30% FIO2. Failed CPAP trial. Urine output 675. Not stooling. WBC 4.1; Hg 6.3; Plt 69 Na 154; BUN24; Creat 0.79 Urine cx form 11/08 --> E coli and Enterococcus CXR shows increasing biabasilar airspace disease, . Family/friend interactions No one at bedside. . Advance Directives Living Will: Never completed Health Care Surrogate: Never completed Durable Power of Cashier Checker: Never completed Advance Directive Specifics Date completed: Advance directives were never completed . Health Care Surrogate(s): There is no known written designation of health care surrogate . Documented care wishes: There is no written documentation of health care goals/preferences. . Objective Vital Signs Date Time Temp Pulse Resp B/P Pulse Ox O2 Delivery O2 Flow Rate FiO2 11/13/16 10:00 78 11/13/16 08:15 100 30 11/13/16 08:00 97.7 77 15 111/56 98 11/13/16 08:00 30 11/13/16 08:00 78 11/13/16 06:00 69 11/13/16 04:33 99 30 11/13/16 04:00 69 11/13/16 04:00 96.4 69 15 109/55 99 11/13/16 04:00 30 11/13/16 02:00 63 11/13/16 00:00 30 11/13/16 00:00 67 11/13/16 00:00 97.3 67 15 113/57 99 11/12/16 23:48 98 30 11/12/16 22:00 73 11/12/16 20:27 98 30 11/12/16 20:00 30 11/12/16 20:00 81 11/12/16 20:00 98.7 81 15 111/56 98 11/12/16 18:00 91 11/12/16 16:44 98 30 11/12/16 16:00 101.3 89 15 117/57 98 11/12/16 16:00 30 11/12/16 16:00 89 11/12/16 14:00 80 11/12/16 12:00 99.8 86 15 127/59 99 11/12/16 12:00 86 11/12/16 12:00 30 11/12/16 11:27 100 30 Intake & Output 11/13/16 11/13/16 07:00 19:00 Intake Total 1060 ml Output Total 525 ml Balance 535 ml Intake IV Total 160 ml Tube Feeding 500 ml Other 400 ml Output Urine Total 525 ml . Physical Exam CONSTITUTIONAL/GENERAL: This is an adequately nourished patient, intubated, mechanically ventilated, in an MICU bed. REsponsivness limited to decerebrate posturing with noxious stimuli. TUBES/LINES/DRAINS: Soft wrist restraints; orotracheal tube; orogastric tube; Tejeda catheter; peripheral IVs; contracture prevention boots SKIN: No jaundice, rashes. Ecchymoses on right forehead. No wounds seen anteriorly. Skin temperature appropriate. Not diaphoretic. EYES: Pupils equal and round. Minimal pupillary reaction to light if any. Extraocular motions cannot be evaluated. No scleral icterus. No injection or drainage. Fundi not examined. ENT: Unable to evaluate hearing. Nose without bleeding or purulent drainage. Throat without visible erythema, exudates, masses, or lesions though difficult to evaluate due to intubations. NECK: Trachea midline. CARDIOVASCULAR: Regular rate and rhythm without murmurs, gallops, or rubs. No JVD. RESPIRATORY/CHEST: Symmetric, unlabored respirations. Breath sounds equal bilaterally with faint diffuse ronchi. No wheezes, rales. GASTROINTESTINAL: Abdomen soft, non-tender, nondistended. No hepato-splenomegaly , or palpable masses. No guarding. Bowel sounds hypoactive. GENITOURINARY: Without palpable bladder distension. Tejeda catheter in place. MUSCULOSKELETAL: Extremities without clubbing, cyanosis, or edema. No mottling. LYMPHATICS: Not examined. NEUROLOGICAL: Does not awaken to loud voice or exam. Unable to follow commands. Decerebrate posturing to noxious stimuli. PSYCHIATRIC: Unable to evaluate due to level of responsiveness . Diagnostic Tests Laboratory Laboratory Tests Test 11/11/16 11/12/16 11/13/16 04:53 05:00 03:56 White Blood Count 9.5 TH/MM3 5.2 TH/MM3 4.1 TH/MM3 (4.0-11.0) (4.0-11.0) (4.0-11.0) Red Blood Count 3.75 MIL/MM3 3.54 MIL/MM3 3.50 MIL/MM3 (4.00-5.30) (4.00-5.30) (4.00-5.30) Hemoglobin 6.7 GM/DL 6.4 GM/DL 6.3 GM/DL (11.6-15.3) (11.6-15.3) (11.6-15.3) Hematocrit 23.8 % 22.9 % 22.0 % (35.0-46.0) (35.0-46.0) (35.0-46.0) Mean Corpuscular Volume 63.5 FL 64.7 FL 62.7 FL (80.0-100.0) (80.0-100.0) (80.0-100.0) Mean Corpuscular Hemoglobin 18.0 PG 18.1 PG 18.0 PG (27.0-34.0) (27.0-34.0) (27.0-34.0) Mean Corpuscular Hemoglobin 28.3 % 28.1 % 28.8 % Concent (32.0-36.0) (32.0-36.0) (32.0-36.0) Red Cell Distribution Width 19.9 % 20.2 % 20.0 % (11.6-17.2) (11.6-17.2) (11.6-17.2) Platelet Count 74 TH/MM3 65 TH/MM3 69 TH/MM3 (150-450) (150-450) (150-450) Mean Platelet Volume 9.1 FL 9.9 FL 9.1 FL (7.0-11.0) (7.0-11.0) (7.0-11.0) Sodium Level 152 MEQ/L 153 MEQ/L 154 MEQ/L (136-145) (136-145) (136-145) Potassium Level 4.1 MEQ/L 4.4 MEQ/L 3.8 MEQ/L (3.5-5.1) (3.5-5.1) (3.5-5.1) Chloride Level 123 MEQ/L 122 MEQ/L 118 MEQ/L (98-107) (98-107) (98-107) Carbon Dioxide Level 21.6 MEQ/L 23.7 MEQ/L 28.8 MEQ/L (21.0-32.0) (21.0-32.0) (21.0-32.0) Anion Gap 7 MEQ/L (5-15) 7 MEQ/L (5-15) 7 MEQ/L (5-15) Blood Urea Nitrogen 19 MG/DL (7-18) 20 MG/DL (7-18) 24 MG/DL (7-18) Creatinine 0.82 MG/DL 0.77 MG/DL 0.79 MG/DL (0.50-1.00) (0.50-1.00) (0.50-1.00) Estimat Glomerular Filtration 66 ML/MIN (>89) 71 ML/MIN (>89) 69 ML/MIN (>89) Rate Random Glucose 302 MG/DL 362 MG/DL 204 MG/DL (74-106) (74-106) (74-106) Calcium Level 7.6 MG/DL 8.0 MG/DL 8.1 MG/DL (8.5-10.1) (8.5-10.1) (8.5-10.1) Phosphorus Level 1.4 MG/DL 2.1 MG/DL (2.5-4.9) (2.5-4.9) Magnesium Level 2.8 MG/DL 2.9 MG/DL (1.5-2.5) (1.5-2.5) . Result Diagram: 11/13/16 0356 11/13/16 0356 Microbiology Microbiology Date/Time Procedure Status Source Growth 11/12/16 17:00 Gram Stain - Final Resulted Sputum Endotracheal 11/12/16 17:00 Sputum Culture Resulted Sputum Endotracheal Pending 11/12/16 17:00 Urine Culture Received Urine Catheterized Urine Pending 11/12/16 19:03 Aerobic Blood Culture Received Blood Peripheral Pending 3/19/17 19:03 Anaerobic Blood Culture Received Blood Peripheral Pending 11/12/16 19:07 Aerobic Blood Culture Received Blood Peripheral Pending 11/12/16 19:07 Anaerobic Blood Culture Received Blood Peripheral Pending . Imaging To help prompt me to consider important information that might be impacting today's encounter and assessment, information from prior notes written by myself or my colleagues may have been "brought forward" into today's note. My signature on this note, however, is an attestation that I personally performed the exam, history, and/or decision-making noted today, and, unless otherwise indicated, the interactions with patient, family, and staff as well as the review of records all occurred today. I also attest that the listed assessment and stated plan reflect my best clinical judgment today based on the combination of historical information, prior notes, and today's exam/ interactions. When time spent is documented, it refers only to time spent today by the signer, or if indicated, combined time spent today by collaborating physician/nurse practitioner. . Procedures * Intubation/mechanical ventilation . Assessment and Plan Disease Oriented Problem List: (1) CVA (cerebral vascular accident) Comment: Very large posterior circulation stroke. . (2) Rhabdomyolysis (3) Dementia Comment: Family reports at least a 7 year history of dementia. . (4) Thrombocytopenia (5) Malnutrition Comment: Presenting albumin level was 2.8 . (6) Anemia (7) Urinary tract infection Comment: Cx of 11/08 --> E coli and Enterococcus . Symptom Scale: (1) Pain 0-10 Scale: Unable to quantify Comment: Patient had no known prior pain syndromes. Current possible sources of pain include prolonged bedbound status; orotracheal intubation; vascular access catheters; Tejeda catheter. . (2) Dyspnea 0-10 Scale: Unable to quantify Comment: Dyspnea currently controlled with mechanical ventilation. . (3) Encephalopathy 0-10 Scale: Unable to quantify Comment: Patient was minimally responsive on arrival and I show no evidence of neurologic recovery. Off all sedation. Pertinent Non-Medical Issues Psychosocial: Normally lives with her sister. Her son lives by visits frequently. Spiritual: Patient is a Religion. Blood products should not be given without the son's permission. Legal: No advance directives. Son would be the appropriate proxy health care decision-maker under the [place] statutes hierarchy. Ethical issues impacting care: Patient is incapacitated to make her own health care decisions and is not expected to regain such capacity . Important Contacts Wyatt Crawford (son and healthcare proxy) [phone] . Prognosis This is an 86-year-old female who was suffered a fairly massive posterior circulation stroke. This is on top of at least a seven-year history of dementia with the patient was already requiring assistance with most of her ADLs. There is a high risk of during this hospitalization. Should she survive, she will probably require tracheostomy to protect her airway as well as ongoing tube feedings. It is unlikely that she will have meaningful interaction with her environment. The patient would certainly be eligible for hospice services at such time that family believes the patient's goals would best be honored by transitioning to "comfort measures only." . Code Status: Full Code Plan == Code Status: The patient's son tells me he would like the patient to remain "full code" at this time. == Decision-making: The patient is incapacitated to make her own health care decisions. It is unlikely she will ever regain capacity. The patient is a and has only one adult child. Thus, under [place] statutes, her son, Wyatt Crawford, is the legal health care proxy. == Goals of medical treatment: The patient is a Religion. No blood products should be given without the sons expressed permission. The son has told me he believes in miracles. He has wanted to do everything to keep his mother alive for the time being including resuscitation efforts. He is open to reconsidering these goals at a later date. He certainly understands that it would literally take a miracle to have his mother return to anything near the level of function she had before this devastating stroke. == Pain: Patient is off all analgesics. Only responsiveness is decerebrate posturing to noxious stimuli. No further recommendations at this time. == Dyspnea: Currently controlled with mechanical ventilation. No further recommendations at this time. == Encephalopathy: Patient's current mental status is due to a combination of her devastating stroke and underlying dementia. Meaningful improvement would likely require a miracle. == Hypothermia: Resolved == Fever: Infection vs injury to thermostat. On antibiotics. == Malnutrition: Patient receiving tube feedings as tolerated. == Palliative care will continue to follow to assist with symptom management and to help clarify goals of medical treatment as the clinical course evolves. Will continue to provide updates and discuss goals with son whenever possible. == Given son's expressed goals to date, anticipate desire for ongoing aggressive care which will probably warrant early Trach/PEG. . Attestation To help prompt me to consider important information that might be impacting today's encounter and assessment, information from prior notes written by myself or my colleagues may have been "brought forward" into today's note. My signature on this note, however, is an attestation that I personally performed the exam, history, and/or decision-making noted today, and, unless otherwise indicated, the interactions with patient, family, and staff as well as the review of records all occurred today. I also attest that the listed assessment and stated plan reflect my best clinical judgment today based on the combination of historical information, prior notes, and today's exam/ interactions. When time spent is documented, it refers only to time spent today by the signer, or if indicated, combined time spent today by collaborating physician/nurse practitioner. . Karlos Bauer MD Nov 13, 2016 11:27
--- NOTE | 2016-11-13 12:11 | HHI.CCPN ---
Subjective Remarks/Hospital Course This is an 86yF with per report no other past medical history who presented to the ER after she was found unresponsive in her bed. According to ER reports, her family saw her normal last night when she had a fall, with unknown LOC. At that point, he helped her back to bed. However, this morning she did not wake up. On arrival to the ER, she was unresponsive only withdrawing to pain. she was intubated for airway protection and a poor GCS. CT head demonstrated massive posterior-circulation ischemic stroke. The patient is currently intubated and unresponsive and cannot provide any additional history. 11/09: No acute changes overnight. Palliative care team has consult with the family regarding goals of care. Currently the patient's sedation fentanyl infusion has been turned off without any response from patient. The patient notably does withdrawal to pain. 11/10: No change in neurological status. E1V1M4. The patient withdraws to pain 4 extremities. The patient currently on no sedation, fentanyl infusion discontinued yesterday. Tube feeds were initiated. The patient's urine culture grew back Escherichia coli, the patient was started on antibiotics. Extensive discussion with son regarding patient's neurological status, son Wyatt has had extensive discussion with palliative care.The son feels that yesterday when the patient was spoken to in [place] the patient squeezed his hand and desires aggressive treatment. The patient's neuro status is unchanged, totally unresponsive with occasional reflexive twitching of feet B/L. Follow-up with neurology Dr. Pack, guarding any further imaging studies. 11/13: No change in neuro exam. Palliative care following. Family wanting full aggressive care. Palliative care will address early trach PEG Objective Vital Signs Date Time Temp Pulse Resp B/P Pulse Ox O2 Delivery O2 Flow Rate FiO2 11/13/16 11:48 98 30 11/13/16 10:00 78 11/13/16 08:00 97.7 15 111/56 Intake and Output 11/12/16 11/12/16 11/13/16 08:00 16:00 00:00 Intake Total 439 ml 566 ml 525 ml Output Total 250 ml 150 ml 225 ml Balance 189 ml 416 ml 300 ml Result Diagram: 11/13/16 0356 11/13/16 0356 Imaging Last [address] 11/08/16 4132 Signed Impressions: Service Date/Time: Tuesday, November 08, 2016 17:06 - CONCLUSION: Low density seen throughout the posterior circulation regions including the susan and midbrain, cerebellar hemispheres, occipital and posterior medial temporal lobes and right thalamus. This likely represents areas of infarction involving the posterior territory circulation. Jeffery Zhong MD Chest X-Ray 11/08/16 4980 Signed Impressions: Service Date/Time: Tuesday, November 08, 2016 17:12 - CONCLUSION: Endotracheal tube is at the kraig and needs to be withdrawn at least 2 cm. Satisfactory position of nasogastric tube. No evidence of significant airspace disease or congestion. Hill Sequeira MD Objective Remarks GENERAL: Elderly female, lying in bed, intubated, unresponsive, critically ill. HEENT: pupils 2mm, equal, reactive. normocephalic. atraumatic. mucous membranes moist. NECK: Orotracheally intubated. No JVD. Trachea midline. CHEST: Equal chest rise. Clear to auscultation. CARDIOVASCULAR: Normal rate, regular rhythm. No appreciable murmurs. ABDOMEN: Soft, nontender, nondistended. No guarding. MUSCULOSKELETAL: No peripheral edema. Distal pulses 2+. NEUROLOGICAL: RNegative cough. Negative gag. Positive corneal reflex. Pupils as above. Withdraws to painful stimuli in bilateral lower extremities, posturing in uppers. Downgoing Babinski. Urinary Catheter: Yes Assessment to: Continue Date of Insertion: Nov 08, 2016 Vascular Central Line Catheter: Yes Assessment to: Continue A/P Assessment and Plan Assessment: This is an 86-year-old female found unresponsive by her family 11/08 who sustained a massive likely basilar artery ischemic stroke. She was last seen normal, nearly 24 hours, she was not a candidate for any interventional therapy. Unfortunately, given her age, and the extent of the stroke, her prognosis for any reasonable neurologic function is quite poor, and I do not think that we will be able to improve her outcome at all. Her family expressed wishes for a short course of aggressive medical management. Wyatt, the son , questions were palliative care result in the family would like to continue aggressive treatment. Active problems: Massive posterior circulation ischemic CVA Hypoxic and hypercarbic respiratory failure Severe encephalopathy secondary to stroke Anemia-chronic Hyperglycemia of critical illness Thrombocytopenia Plan Every hour neuro checks -Remains unresponsive withdraws to pain only intermittently, LE, posturing of UE -Follow-up neurology recommendations-Dr. Pack, per his evaluation prognosis no meaningful recovery No sedatives Vent bundle, Head of bed 30, when necessary nebs Wean FiO2 for goal SPO2 greater than 92% Goal systolic blood pressure less than 180. Use nicardipine as needed 2-D echo -EF 5560 %, mild aortic mitral and tricuspid regurgitation, No RWMA Carotid ultrasound-no stenosis Subcutaneous heparin on hold secondary to thrombocytopenia, SCDs for DVT prophylaxis -Glucose level 362, Medium dose sliding scale regimen-Continue to monitor Protonix for GI prophylaxis Dispo: Palliative care medicine is following extensive discussion with the patient's son, Wyatt Crawford-plan is to continue aggressive treatment. Discussed with Wyatt , disposition of patient, if patient receives a tracheostomy and PEG placement. He stated that he did not want his mother to remain in the vegetative state. He requested to speak with Dr. Bauer on Sunday, to clarify plans prior to any initiation of a tracheostomy or PEG. Level 3 Melchor Gil MD Nov 13, 2016 12:11
[2016-11-13] MEDS: ACETAMINOPHEN 650 MG/20.3 ML UDC OG-TUBE PRN (15:54)
[2016-11-14] VITALS (20 sets, daily range): BP systolic 111–143; BP diastolic 53–60; PULSE 79–94; RESP 15–21; TEMP 98.9–101; O2SAT 95–100
[2016-11-14] MEDS: PIPERACIL-TAZO 3.375 GM PREMIX 50 ML IV SCH ×3 (01:36→11:19)
[2016-11-14] MEDS: HIGH DOSE INSULIN NOVOLIN REGULAR SUPPLEMENTAL SCALE SQ SCH ×6 (01:36→20:55)
[2016-11-14] MEDS: ACETAMINOPHEN 650 MG/20.3 ML UDC OG-TUBE PRN (01:37)
[2016-11-14] MEDS: CHLORHEXIDINE GLUCONATE 2 % 1 PACK (2 CLOTHS) TOP SCH (04:00)
[2016-11-14] MEDS: FREE WATER G-TUBE SCH ×4 (05:30→17:11)
[2016-11-14 05:45] LABS: HEMATOCRIT 23.9 % (35.0-46.0); MEAN CELL VOLUME 62.9 FL (80.0-100.0); MEAN CORPUSCULAR HEMOGLOBIN 18.2 PG (27.0-34.0); PLATELET COUNT 78 TH/MM3 (150-450); RED BLOOD COUNT 3.79 MIL/MM3 (4.00-5.30); RED CELL DISTRIBUTION WIDTH 20.4 % (11.6-17.2); WHITE BLOOD COUNT 6.3 TH/MM3 (4.0-11.0)
[2016-11-14 05:55] LABS: REVIEW FLAG FINAL
[2016-11-14 05:56] LABS: BICARBONATE 29.7 MEQ/L (21.0-32.0); POTASSIUM 3.9 MEQ/L (3.5-5.1)
[2016-11-14] MEDS: CHLORHEXIDINE 0.12% (ORAL KIT) 15 ML CUP MT SCH ×2 (07:32→20:00)
[2016-11-14] MEDS: ARTIFICIAL TEARS OPTH SOLN 15 ML BTL EACH EYE SCH ×3 (09:49→17:12)
[2016-11-14] MEDS: DOCUSATE SODIUM 100 MG/10 ML UDC G-TUBE SCH ×2 (09:49→20:55)
[2016-11-14] MEDS: FERROUS SULFATE 300 MG /5ML UDC PO SCH ×2 (09:49→20:56)
[2016-11-14] MEDS: PANTOPRAZOLE SODIUM 40 MG VIAL IV SCH (09:50)
[2016-11-14] MEDS: HEPARIN SODIUM - SQ 10,000 UNITS/ML VIAL SQ SCH ×2 (09:50→20:55)
[2016-11-14] MEDS: SODIUM CHLORIDE 0.9% FLUSH 5 ML FLUSH IV FLUSH SCH ×2 (09:50→20:56)
--- NOTE | 2016-11-14 14:02 | HHI.CCPN ---
Subjective Remarks/Hospital Course This is an 86yF with per report no other past medical history who presented to the ER after she was found unresponsive in her bed. According to ER reports, her family saw her normal last night when she had a fall, with unknown LOC. At that point, he helped her back to bed. However, this morning she did not wake up. On arrival to the ER, she was unresponsive only withdrawing to pain. she was intubated for airway protection and a poor GCS. CT head demonstrated massive posterior-circulation ischemic stroke. The patient is currently intubated and unresponsive and cannot provide any additional history. 11/09: No acute changes overnight. Palliative care team has consult with the family regarding goals of care. Currently the patient's sedation fentanyl infusion has been turned off without any response from patient. The patient notably does withdrawal to pain. 11/10: No change in neurological status. E1V1M4. The patient withdraws to pain 4 extremities. The patient currently on no sedation, fentanyl infusion discontinued yesterday. Tube feeds were initiated. The patient's urine culture grew back Escherichia coli, the patient was started on antibiotics. Extensive discussion with son regarding patient's neurological status, son Wyatt has had extensive discussion with palliative care.The son feels that yesterday when the patient was spoken to in [place] the patient squeezed his hand and desires aggressive treatment. The patient's neuro status is unchanged, totally unresponsive with occasional reflexive twitching of feet B/L. Follow-up with neurology Dr. Pack, guarding any further imaging studies. 11/13: No change in neuro exam. Palliative care following. Family wanting full aggressive care. Palliative care will address early trach PEG 11/14: No improvement in neuro status. Son has not made decisions regarding trach and PEG. Apparently he wants to wait longer to see any improvement Objective Vital Signs Date Time Temp Pulse Resp B/P Pulse Ox O2 Delivery O2 Flow Rate FiO2 11/14/16 13:23 95 30 11/14/16 12:00 84 11/14/16 12:00 100.0 17 115/56 Intake and Output 11/13/16 11/13/16 11/13/16 07:59 15:59 23:59 Intake Total 535 ml 620 ml 505 ml Output Total 300 ml 150 ml 200 ml Balance 235 ml 470 ml 305 ml Result Diagram: 11/14/16 0455 11/14/16 0455 Other Results Microbiology Date/Time Procedure Status Source Growth 11/12/16 17:00 Gram Stain - Final Complete Sputum Endotracheal 11/12/16 17:00 Sputum Culture - Final Complete Staphylococcus Aureus 11/12/16 17:00 Urine Culture - Final Complete Urine Catheterized Urine NO GROWTH IN 48 HOURS. Imaging Last [address] 11/08/161656 Signed Impressions: Service Date/Time: Tuesday, November 08, 2016 17:06 - CONCLUSION: Low density seen throughout the posterior circulation regions including the susan and midbrain, cerebellar hemispheres, occipital and posterior medial temporal lobes and right thalamus. This likely represents areas of infarction involving the posterior territory circulation. Jeffery Zhong MD Chest X-Ray 11/08/161656 Signed Impressions: Service Date/Time: Tuesday, November 08, 2016 17:12 - CONCLUSION: Endotracheal tube is at the kraig and needs to be withdrawn at least 2 cm. Satisfactory position of nasogastric tube. No evidence of significant airspace disease or congestion. Hill Sequeira MD Objective Remarks GENERAL: Elderly female, lying in bed, intubated, unresponsive, critically ill. HEENT: pupils 2mm, equal, reactive. normocephalic. atraumatic. mucous membranes moist. NECK: Orotracheally intubated. No JVD. Trachea midline. CHEST: Equal chest rise. Clear to auscultation. CARDIOVASCULAR: Normal rate, regular rhythm. No appreciable murmurs. ABDOMEN: Soft, nontender, nondistended. No guarding. MUSCULOSKELETAL: No peripheral edema. Distal pulses 2+. NEUROLOGICAL: Negative cough. Negative gag. Positive corneal reflex. Pupils as above. Withdraws to painful stimuli in bilateral lower extremities, posturing in uppers. Downgoing Babinski. 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 She was last seen normal, nearly 24 hours, she was not a candidate for any interventional therapy. Unfortunately, given her age, and the extent of the stroke, her prognosis for any reasonable neurologic function is quite poor, and I do not think that we will be able to improve her outcome at all. Her family expressed wishes for a short course of aggressive medical management. Wyatt, the son , questions were palliative care result in the family would like to continue aggressive treatment. Active problems: Massive posterior circulation ischemic CVA Hypoxic and hypercarbic respiratory failure Severe encephalopathy secondary to stroke Anemia-chronic Hyperglycemia of critical illness Thrombocytopenia Plan Every hour neuro checks -Remains unresponsive withdraws to pain only intermittently, LE, posturing of UE -Follow-up neurology recommendations-Dr. Pack, per his evaluation prognosis no meaningful recovery No sedatives Vent bundle, Head of bed 30, when necessary nebs Wean FiO2 for goal SPO2 greater than 92% Goal systolic blood pressure less than 180. Use nicardipine as needed 2-D echo -EF 5560 %, mild aortic mitral and tricuspid regurgitation, No RWMA Carotid ultrasound-no stenosis Subcutaneous heparin on hold secondary to thrombocytopenia, SCDs for DVT prophylaxis -Medium dose sliding scale regimen-Continue to monitor Protonix for GI prophylaxis Dispo: Palliative care medicine is following extensive discussion with the patient's son, Wyatt Crawford-plan is to continue aggressive treatment. Discussed with Wyatt , disposition of patient, if patient receives a tracheostomy and PEG placement. He stated that he did not want his mother to remain in the vegetative state. Son has not decided on trach/PEG yet Level 2 Melchor Gil MD Nov 14, 2016 14:02
[2016-11-14] MEDS: LEVOFLOXACIN 750 MG PREMIX INJ 150 ML IV SCH (14:52)
--- NOTE | 2016-11-14 19:03 | HHI.HCPN ---
Reason for visit a. To assist with evaluation and management of symptoms including: pain; dyspnea; encephalopathy b. To assist medical decision maker(s) with: better understanding of current medical conditions; weighing benefits/burdens of medical treatment options; making medical treatment decisions. . Subjective/Interval History 86 y/o female with devastating posterior circulation stroke remains intubated, mechanically ventilated, minimally responsive in an MICU bed. She has been off all sedation for several days. At time of my visit, responsiveness is limited to decerebrate (extensor) posturing to noxious stimulus. There has been no significant change overnight. Tmax 101.0. Other VS stable. 02 sats in upper 90s on 30% FIO2. Urine output 550. Bowels moved. WBC 6.3 ; Hg 6.9 ; Plt 78 Na 148; BUN29; Creat 1.06 Urine cx form 11/08 --> E coli and Enterococcus No new CXR . Family/friend interactions No family / friends at bedside. . Advance Directives Living Will: Never completed Health Care Surrogate: Never completed Durable Power of Rn Clinical Review: Never completed Advance Directive Specifics Date completed: Advance directives were never completed . Health Care Surrogate(s): There is no known written designation of health care surrogate . Documented care wishes: There is no written documentation of health care goals/preferences. . Objective Vital Signs Date Time Temp Pulse Resp B/P Pulse Ox O2 Delivery O2 Flow Rate FiO2 11/14/16 18:00 84 11/14/16 16:32 99 30 11/14/16 16:00 30 11/14/16 16:00 100.5 94 15 118/58 100 11/14/16 16:00 91 11/14/16 14:00 86 11/14/16 13:23 95 30 11/14/16 12:00 84 11/14/16 12:00 100.0 85 17 115/56 96 11/14/16 12:00 30 11/14/16 10:42 97 30 11/14/16 10:00 87 11/14/16 08:52 98 30 11/14/16 08:00 81 11/14/16 08:00 30 11/14/16 08:00 99.8 81 21 143/60 100 11/14/16 06:00 30 11/14/16 06:00 79 11/14/16 04:33 99 30 11/14/16 04:00 83 11/14/16 04:00 100.8 83 16 111/53 99 11/14/16 02:00 82 11/14/16 01:49 98 30 11/14/16 00:00 83 11/14/16 00:00 30 11/14/16 00:00 101.0 83 15 116/57 99 11/13/16 22:00 80 11/13/16 20:00 30 11/13/16 20:00 80 11/13/16 20:00 101.3 80 19 108/53 99 11/13/16 19:54 99 30 Intake & Output 11/14/16 11/14/16 07:00 19:00 Intake Total 1441 ml 340 ml Output Total 400 ml 200 ml Balance 1041 ml 140 ml Intake IV Total 262 ml 60 ml Tube Feeding 619 ml 280 ml Tube Irrigant 60 ml Other 500 ml Output Urine Total 400 ml 200 ml # Bowel Movements 0 1 . Physical Exam CONSTITUTIONAL/GENERAL: This is an adequately nourished patient, intubated, mechanically ventilated, in an MICU bed. Responsivness limited to decerebrate posturing with noxious stimuli. TUBES/LINES/DRAINS: Soft wrist restraints; orotracheal tube; orogastric tube; Tejeda catheter; peripheral IVs; SKIN: No jaundice, rashes. Ecchymoses on right forehead. No wounds seen anteriorly. Skin temperature appropriate. Not diaphoretic. EYES: Pupils equal and round. Pupils non-reactive. Extraocular motions cannot be evaluated. No scleral icterus. No injection or drainage. Fundi not examined. ENT: Unable to evaluate hearing. Nose without bleeding or purulent drainage. Throat without visible erythema, exudates, masses, or lesions though difficult to evaluate due to intubations. NECK: Trachea midline. CARDIOVASCULAR: Regular rate and rhythm without murmurs, gallops, or rubs. No JVD RESPIRATORY/CHEST: Symmetric, unlabored respirations. Breath sounds equal bilaterally with diffuse coarse ronchi. No wheezes, rales. GASTROINTESTINAL: Abdomen soft, non-tender, nondistended. No hepato-splenomegaly , or palpable masses. No guarding. Bowel sounds hypoactive. GENITOURINARY: Without palpable bladder distension. Tejeda catheter in place. MUSCULOSKELETAL: Extremities without clubbing, cyanosis, or edema. No mottling. LYMPHATICS: Not examined. NEUROLOGICAL: Does not awaken to loud voice or exam. Unable to follow commands. Decerebrate posturing to noxious stimuli. PSYCHIATRIC: Unable to evaluate due to level of responsiveness . Diagnostic Tests Laboratory Laboratory Tests Test 11/12/16 11/13/16 11/14/16 05:00 03:56 04:55 White Blood Count 5.2 TH/MM3 4.1 TH/MM3 6.3 TH/MM3 (4.0-11.0) (4.0-11.0) (4.0-11.0) Red Blood Count 3.54 MIL/MM3 3.50 MIL/MM3 3.79 MIL/MM3 (4.00-5.30) (4.00-5.30) (4.00-5.30) Hemoglobin 6.4 GM/DL 6.3 GM/DL 6.9 GM/DL (11.6-15.3) (11.6-15.3) (11.6-15.3) Hematocrit 22.9 % 22.0 % 23.9 % (35.0-46.0) (35.0-46.0) (35.0-46.0) Mean Corpuscular Volume 64.7 FL 62.7 FL 62.9 FL (80.0-100.0) (80.0-100.0) (80.0-100.0) Mean Corpuscular Hemoglobin 18.1 PG 18.0 PG 18.2 PG (27.0-34.0) (27.0-34.0) (27.0-34.0) Mean Corpuscular Hemoglobin 28.1 % 28.8 % 29.0 % Concent (32.0-36.0) (32.0-36.0) (32.0-36.0) Red Cell Distribution Width 20.2 % 20.0 % 20.4 % (11.6-17.2) (11.6-17.2) (11.6-17.2) Platelet Count 65 TH/MM3 69 TH/MM3 78 TH/MM3 (150-450) (150-450) (150-450) Mean Platelet Volume 9.9 FL 9.1 FL 9.3 FL (7.0-11.0) (7.0-11.0) (7.0-11.0) Sodium Level 153 MEQ/L 154 MEQ/L 148 MEQ/L (136-145) (136-145) (136-145) Potassium Level 4.4 MEQ/L 3.8 MEQ/L 3.9 MEQ/L (3.5-5.1) (3.5-5.1) (3.5-5.1) Chloride Level 122 MEQ/L 118 MEQ/L 113 MEQ/L (98-107) (98-107) (98-107) Carbon Dioxide Level 23.7 MEQ/L 28.8 MEQ/L 29.7 MEQ/L (21.0-32.0) (21.0-32.0) (21.0-32.0) Anion Gap 7 MEQ/L (5-15) 7 MEQ/L (5-15) 5 MEQ/L (5-15) Blood Urea Nitrogen 20 MG/DL (7-18) 24 MG/DL (7-18) 29 MG/DL (7-18) Creatinine 0.77 MG/DL 0.79 MG/DL 1.06 MG/DL (0.50-1.00) (0.50-1.00) (0.50-1.00) Estimat Glomerular Filtration 71 ML/MIN (>89) 69 ML/MIN (>89) 49 ML/MIN (>89) Rate Random Glucose 362 MG/DL 204 MG/DL 255 MG/DL (74-106) (74-106) (74-106) Calcium Level 8.0 MG/DL 8.1 MG/DL 7.5 MG/DL (8.5-10.1) (8.5-10.1) (8.5-10.1) Phosphorus Level 2.1 MG/DL (2.5-4.9) Magnesium Level 2.9 MG/DL (1.5-2.5) . Result Diagram: 11/14/16 0455 11/14/16 0455 Microbiology Microbiology Date/Time Procedure Status Source Growth 11/12/16 17:00 Gram Stain - Final Complete Sputum Endotracheal 11/12/16 17:00 Sputum Culture - Final Complete Staphylococcus Aureus 11/12/16 17:00 Urine Culture - Final Complete Urine Catheterized Urine NO GROWTH IN 48 HOURS. 11/12/16 19:03 Aerobic Blood Culture - Preliminary Resulted Blood Peripheral NO GROWTH IN 2 DAYS 11/12/16 19:03 Anaerobic Blood Culture - Preliminary Resulted Blood Peripheral NO GROWTH IN 2 DAYS 11/12/16 19:07 Aerobic Blood Culture - Preliminary Resulted Blood Peripheral NO GROWTH IN 2 DAYS 11/12/16 19:07 Anaerobic Blood Culture - Preliminary Resulted Blood Peripheral NO GROWTH IN 2 DAYS . Imaging Last Impressions Chest X-Ray 11/11/16 0600 Signed Impressions: Service Date/Time: Friday, November 11, 2016 02:03 - CONCLUSION: 1. Increasing basilar airspace disease since November 08. Endotracheal tube tip is just beyond kraig and in right mainstem bronchus and should be withdrawn about 3 cm. Emeterio Freire MD Head CT 11/08/16 1657 Signed Impressions: Service Date/Time: Tuesday, November 08, 2016 17:06 - CONCLUSION: Low density seen throughout the posterior circulation regions including the susan and midbrain, cerebellar hemispheres, occipital and posterior medial temporal lobes and right thalamus. This likely represents areas of infarction involving the posterior territory circulation. Jeffery Zhong MD Carotid Artery Ultrasound 11/08/16 0000 Signed Impressions: Service Date/Time: Tuesday, November 08, 2016 22:24 - CONCLUSION: Mild calcified plaque at the carotid bulbs. No evidence of hemodynamically significant carotid stenosis. José Luis Beltran MD . Procedures * Intubation/mechanical ventilation . Assessment and Plan Disease Oriented Problem List: (1) CVA (cerebral vascular accident) Comment: Very large posterior circulation stroke. . (2) Rhabdomyolysis (3) Dementia Comment: Family reports at least a 7 year history of dementia. . (4) Thrombocytopenia (5) Malnutrition Comment: Presenting albumin level was 2.8 . (6) Anemia (7) Urinary tract infection Comment: Cx of 11/08 --> E coli and Enterococcus . (8) Pneumonia Comment: Sputum cx of 11/12 growing Staph aureus. . Symptom Scale: (1) Pain 0-10 Scale: Unable to quantify Comment: Patient had no known prior pain syndromes. Current possible sources of pain include prolonged bedbound status; orotracheal intubation; vascular access catheters; Tejeda catheter. . (2) Dyspnea 0-10 Scale: Unable to quantify Comment: Dyspnea currently controlled with mechanical ventilation. . (3) Encephalopathy 0-10 Scale: Unable to quantify Comment: Patient was minimally responsive on arrival and I show no evidence of neurologic recovery. Off all sedation. Pertinent Non-Medical Issues Psychosocial: Normally lives with her sister. Her son lives by visits frequently. Spiritual: Patient is a Alevism. Blood products should not be given without the son's permission. Legal: No advance directives. Son would be the appropriate proxy health care decision-maker under the [place] statutes hierarchy. Ethical issues impacting care: Patient is incapacitated to make her own health care decisions and is not expected to regain such capacity . Important Contacts Wyatt Crawford (son and healthcare proxy) [phone] . Prognosis This is an 86-year-old female who was suffered a fairly massive posterior circulation stroke. This is on top of at least a seven-year history of dementia with the patient was already requiring assistance with most of her ADLs. There is a high risk of during this hospitalization. Should she survive, she will probably require tracheostomy to protect her airway as well as ongoing tube feedings. It is unlikely that she will have meaningful interaction with her environment. The patient would certainly be eligible for hospice services at such time that family believes the patient's goals would best be honored by transitioning to "comfort measures only." . Code Status: Full Code Plan == Code Status: The patient's son tells me he would like the patient to remain "full code" at this time. == Decision-making: The patient is incapacitated to make her own health care decisions. It is unlikely she will ever regain capacity. The patient is a and has only one adult child. Thus, under [place] statutes, her son, Wyatt Crawford, is the legal health care proxy. == Goals of medical treatment: The patient is a Alevism. No blood products should be given without the sons expressed permission. The son has told me he believes in miracles. He has wanted to do everything to keep his mother alive for the time being including resuscitation efforts. He is open to reconsidering these goals at a later date. He certainly understands that it would literally take a miracle to have his mother return to anything near the level of function she had before this devastating stroke. He is considering bringing in a "archeologist classical." Son said, "I am not one to keep her on life support forever, but I would want at least a month." If he is going to want her life support that long, I recommended going forward now with trach/PEG. He is unable to make that decision yet. == Pain: Patient is off all analgesics. Only responsiveness is decerebrate posturing to noxious stimuli. No further recommendations at this time. == Dyspnea: Currently controlled with mechanical ventilation. No further recommendations at this time. == Encephalopathy: Patient's current mental status is due to a combination of her devastating stroke and underlying dementia. Meaningful improvement would likely require a miracle. No further recommendations at this time. == Hypothermia: Resolved == Fever: Infection vs injury to thermostat. On antibiotics. Now has MSSA pneumonia and UTI with E coli + enterococcus. == Malnutrition: Patient receiving tube feedings as tolerated. == Palliative care will continue to follow to assist with symptom management and to help clarify goals of medical treatment as the clinical course evolves. Will continue to provide updates and discuss goals with son whenever possible. . Attestation To help prompt me to consider important information that might be impacting today's encounter and assessment, information from prior notes written by myself or my colleagues may have been "brought forward" into today's note. My signature on this note, however, is an attestation that I personally performed the exam, history, and/or decision-making noted today, and, unless otherwise indicated, the interactions with patient, family, and staff as well as the review of records all occurred today. I also attest that the listed assessment and stated plan reflect my best clinical judgment today based on the combination of historical information, prior notes, and today's exam/ interactions. When time spent is documented, it refers only to time spent today by the signer, or if indicated, combined time spent today by collaborating physician/nurse practitioner. . Karlos Bauer MD Nov 14, 2016 19:03
[2016-11-14 21:00] LABS: MEAN CORPUSCULAR HGB CONC 29.8 % (32.0-36.0)
[2016-11-15] VITALS (20 sets, daily range): BP systolic 98–130; BP diastolic 53–61; PULSE 83–99; RESP 15–20; TEMP 99.1–100.4; O2SAT 95–100
[2016-11-15] MEDS: HIGH DOSE INSULIN NOVOLIN REGULAR SUPPLEMENTAL SCALE SQ SCH ×6 (00:27→20:00)
--- NOTE | 2016-11-15 02:58 | RADRPT ---
EXAM DATE/TIME: 11/15/2016 02:09 [facility] COMPARISON: CHEST SINGLE AP, November 11, 2016, 2:03. INDICATIONS : Shortness of breath. MEDICAL HISTORY : Non-responsive SURGICAL HISTORY : Non-responsive ENCOUNTER: Subsequent ACUITY: 1 week PAIN SCORE: Non-responsive. LOCATION: Bilateral chest FINDINGS: Small left effusion and patchy basilar airspace disease improved from previous. Endotracheal tube tip at the kraig. Enteric tube courses beneath the diaphragm. Aortic calcification and cardiomegaly. CONCLUSION: Improved aeration. Cruzito Charles MD on November 15, 2016 at 2:56 Board Certified Radiologist. This report was verified electronically.
[2016-11-15] MEDS: CHLORHEXIDINE GLUCONATE 2 % 1 PACK (2 CLOTHS) TOP SCH (04:00)
[2016-11-15] MEDS: ACETAMINOPHEN 650 MG/20.3 ML UDC OG-TUBE PRN (05:21)
[2016-11-15] MEDS: FREE WATER G-TUBE SCH ×4 (05:21→18:00)
[2016-11-15 05:22] LABS: POTASSIUM 4.5 MEQ/L (3.5-5.1)
[2016-11-15] MEDS: EPOETIN ALFA 10,000 UNITS/ML VIAL SQ SCH (05:47)
[2016-11-15] MEDS: CHLORHEXIDINE 0.12% (ORAL KIT) 15 ML CUP MT SCH ×2 (07:00→20:00)
[2016-11-15] MEDS: ARTIFICIAL TEARS OPTH SOLN 15 ML BTL EACH EYE SCH ×3 (07:35→18:11)
[2016-11-15] MEDS: DOCUSATE SODIUM 100 MG/10 ML UDC G-TUBE SCH ×2 (07:35→20:09)
[2016-11-15] MEDS: SODIUM CHLORIDE 0.9% FLUSH 5 ML FLUSH IV FLUSH SCH ×2 (07:35→20:10)
[2016-11-15] MEDS: PANTOPRAZOLE SODIUM 40 MG VIAL IV SCH (07:35)
[2016-11-15] MEDS: FERROUS SULFATE 300 MG /5ML UDC PO SCH ×2 (07:35→20:09)
[2016-11-15] MEDS: HEPARIN SODIUM - SQ 10,000 UNITS/ML VIAL SQ SCH ×2 (07:35→20:09)
[2016-11-15 10:08] LABS: MEAN CELL VOLUME 62.1 FL (80.0-100.0); MEAN CORPUSCULAR HEMOGLOBIN 18.5 PG (27.0-34.0); PLATELET COUNT 83 TH/MM3 (150-450); RED BLOOD COUNT 3.84 MIL/MM3 (4.00-5.30); RED CELL DISTRIBUTION WIDTH 20.1 % (11.6-17.2); WHITE BLOOD COUNT 7.2 TH/MM3 (4.0-11.0)
[2016-11-15 10:14] LABS: REVIEW FLAG AUTO DIFF
[2016-11-15 10:16] LABS: HEMATOCRIT 23.9 % (35.0-46.0)
--- NOTE | 2016-11-15 10:56 | HHI.CCPN ---
Subjective Remarks/Hospital Course This is an 86yF with per report no other past medical history who presented to the ER after she was found unresponsive in her bed. According to ER reports, her family saw her normal last night when she had a fall, with unknown LOC. At that point, he helped her back to bed. However, this morning she did not wake up. On arrival to the ER, she was unresponsive only withdrawing to pain. she was intubated for airway protection and a poor GCS. CT head demonstrated massive posterior-circulation ischemic stroke. The patient is currently intubated and unresponsive and cannot provide any additional history. 11/09: No acute changes overnight. Palliative care team has consult with the family regarding goals of care. Currently the patient's sedation fentanyl infusion has been turned off without any response from patient. The patient notably does withdrawal to pain. 11/10: No change in neurological status. [id number]. The patient withdraws to pain 4 extremities. The patient currently on no sedation, fentanyl infusion discontinued yesterday. Tube feeds were initiated. The patient's urine culture grew back Escherichia coli, the patient was started on antibiotics. Extensive discussion with son regarding patient's neurological status, son Wyatt has had extensive discussion with palliative care.The son feels that yesterday when the patient was spoken to in [place] the patient squeezed his hand and desires aggressive treatment. The patient's neuro status is unchanged, totally unresponsive with occasional reflexive twitching of feet B/L. Follow-up with neurology Dr. Pack, guarding any further imaging studies. 11/13: No change in neuro exam. Palliative care following. Family wanting full aggressive care. Palliative care will address early trach PEG 11/14: No improvement in neuro status. Son has not made decisions regarding trach and PEG. Apparently he wants to wait longer to see any improvement 11/15: Remains unresponsive. Neuro exam with extensor posturing-unchanged. Son requesting aggressive care. Continues to have low-grade fever Objective Vital Signs Date Time Temp Pulse Resp B/P Pulse Ox O2 Delivery O2 Flow Rate FiO2 11/15/16 10:00 91 11/15/16 09:00 30 11/15/16 08:50 97 11/15/16 08:00 99.8 16 127/60 Intake and Output 11/14/16 11/14/16 11/15/16 08:00 16:00 00:00 Intake Total 936 ml 340 ml 521 ml Output Total 200 ml 200 ml 275 ml Balance 736 ml 140 ml 246 ml Result Diagram: 11/15/16 0857 11/15/16 0407 Other Results Microbiology Date/Time Procedure Status Source Growth 11/12/16 17:00 Gram Stain - Final Complete Sputum Endotracheal 11/12/16 17:00 Sputum Culture - Final Complete Staphylococcus Aureus 11/12/16 17:00 Urine Culture - Final Complete Urine Catheterized Urine NO GROWTH IN 48 HOURS. Imaging Last [address] 11/08/161656 Signed Impressions: Service Date/Time: Tuesday, November 08, 2016 17:06 - CONCLUSION: Low density seen throughout the posterior circulation regions including the susan and midbrain, cerebellar hemispheres, occipital and posterior medial temporal lobes and right thalamus. This likely represents areas of infarction involving the posterior territory circulation. Jeffery Zhong MD Chest X-Ray 11/08/161656 Signed Impressions: Service Date/Time: Tuesday, November 08, 2016 17:12 - CONCLUSION: Endotracheal tube is at the kraig and needs to be withdrawn at least 2 cm. Satisfactory position of nasogastric tube. No evidence of significant airspace disease or congestion. Hill Sequeira MD Objective Remarks GENERAL: Elderly female, lying in bed, intubated, unresponsive, critically ill. HEENT: pupils 2mm, equal, reactive. normocephalic. atraumatic. mucous membranes moist. NECK: Orotracheally intubated. No JVD. Trachea midline. CHEST: Equal chest rise. Clear to auscultation. Air entry equal bilaterally CARDIOVASCULAR: Normal rate, regular rhythm. No appreciable murmurs. ABDOMEN: Soft, nontender, nondistended. No guarding. MUSCULOSKELETAL: No peripheral edema. Distal pulses 2+. NEUROLOGICAL: Negative cough. Negative gag. Positive corneal reflex. Pupils as above. Withdraws to painful stimuli in bilateral lower extremities, extensor posturing in uppers. Downgoing Babinski. 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 She was last seen normal, nearly 24 hours, she was not a candidate for any interventional therapy. Unfortunately, given her age, and the extent of the stroke, her prognosis for any reasonable neurologic function is quite poor, and I do not think that we will be able to improve her outcome at all. Her family expressed wishes for a short course of aggressive medical management. Wyatt, the son , questions were palliative care result in the family would like to continue aggressive treatment. Active problems: Massive posterior circulation ischemic CVA Hypoxic and hypercarbic respiratory failure Severe encephalopathy secondary to stroke Anemia-chronic Hyperglycemia of critical illness Thrombocytopenia Plan Every hour neuro checks --Remains unresponsive, extensor posturing to pain --Follow-up neurology recommendations-Dr. Pack, per his evaluation prognosis no meaningful recovery No sedatives Vent bundle, Head of bed 30, when necessary nebs Wean FiO2 for goal SPO2 greater than 92% Goal systolic blood pressure less than 180. Use nicardipine as needed 2-D echo -EF 5560 %, mild aortic mitral and tricuspid regurgitation, No RWMA Carotid ultrasound-no stenosis Subcutaneous heparin on hold secondary to thrombocytopenia, SCDs for DVT prophylaxis -Medium dose sliding scale regimen-Continue to monitor Protonix for GI prophylaxis Dispo: Palliative care medicine is following extensive discussion with the patient's son, Wyatt Crawford-plan is to continue aggressive treatment. Son has not decided up on tracheostomy and PEG placement. He stated that he did not want his mother to remain in the vegetative state. Level 2 Melchor Gil MD Nov 15, 2016 10:56
--- NOTE | 2016-11-15 11:09 | HHI.HCPN ---
Reason for visit a. To assist with evaluation and management of symptoms including: pain; dyspnea; encephalopathy b. To assist medical decision maker(s) with: better understanding of current medical conditions; weighing benefits/burdens of medical treatment options; making medical treatment decisions. . Subjective/Interval History 86 y/o female with devastating posterior circulation stroke remains intubated, minimally responsive in an MICU bed. She has been off all sedation for several days. At time of my visit, responsiveness is limited to decerebrate (extensor) posturing to noxious stimulus. Patient has been tolerating a CPAP trial for a couple of hours this AM. Nurse reports she might have a brief period of apnea, but then coughs and resumes a normal respiratory pattern. She continues to have elevated temps. Renal function better. No signs of discomfort. Nursing pain level scores consistently at "0". Tmax 100.5. Other VS stable. 02 sats in upper 90s on 30% FIO2. Urine output 675. Bowels moving. Tolerating tube feeds. WBC 7.2 ; Hg 7.1 ; Plt 83 Na 144; BUN 24; Creat 0.74 Urine cx form 11/08 --> E coli and Enterococcus CXR 11/15/16 --> improved aeration . Family/friend interactions Nurses report son visited yesterday evening. No change of goals noted. . Advance Directives Living Will: Never completed Health Care Surrogate: Never completed Durable Power of [place] Sorter: Never completed Advance Directive Specifics Date completed: Advance directives were never completed . Health Care Surrogate(s): There is no known written designation of health care surrogate . Documented care wishes: There is no written documentation of health care goals/preferences. . Objective Vital Signs Date Time Temp Pulse Resp B/P Pulse Ox O2 Delivery O2 Flow Rate FiO2 11/15/16 10:00 91 11/15/16 09:00 30 11/15/16 08:50 97 30 11/15/16 08:50 30 11/15/16 08:18 98 30 11/15/16 08:00 99.8 89 16 127/60 98 11/15/16 08:00 85 11/15/16 08:00 30 11/15/16 06:00 87 11/15/16 04:16 96 30 11/15/16 04:00 100.4 96 15 126/58 97 11/15/16 04:00 96 11/15/16 04:00 30 11/15/16 02:00 94 11/15/16 01:16 97 30 11/15/16 00:00 30 11/15/16 00:00 100.0 90 20 117/57 95 11/15/16 00:00 90 11/14/16 22:11 97 30 11/14/16 22:00 85 11/14/16 20:00 84 11/14/16 20:00 98.9 84 15 118/56 98 11/14/16 20:00 30 11/14/16 19:05 99 30 11/14/16 18:00 84 11/14/16 16:32 99 30 11/14/16 16:00 30 11/14/16 16:00 100.5 94 15 118/58 100 11/14/16 16:00 91 11/14/16 14:00 86 11/14/16 13:23 95 30 11/14/16 12:00 84 11/14/16 12:00 100.0 85 17 115/56 96 11/14/16 12:00 30 Intake & Output 11/15/16 11/15/16 07:00 19:00 Intake Total 1271 ml Output Total 475 ml Balance 796 ml Intake IV Total 133 ml Tube Feeding 578 ml Tube Irrigant 60 ml Other 500 ml Output Urine Total 475 ml # Bowel Movements 1 Physical Exam CONSTITUTIONAL/GENERAL: This is an adequately nourished patient, intubated, mechanically ventilated, in an MICU bed. Responsiveness limited to decerebrate posturing with noxious stimuli. TUBES/LINES/DRAINS: Soft wrist restraints; orotracheal tube; orogastric tube; Tejeda catheter; peripheral IVs; SKIN: No jaundice, rashes. No wounds seen anteriorly. Skin temperature appropriate. Not diaphoretic. EYES: Pupils equal and round. Pupils non-reactive. Extraocular motions cannot be evaluated. No scleral icterus. No injection or drainage. Fundi not examined. ENT: Unable to evaluate hearing. Nose without bleeding or purulent drainage. Throat without visible erythema, exudates, masses, or lesions though difficult to evaluate due to intubations. NECK: Trachea midline. CARDIOVASCULAR: Regular rate and rhythm without murmurs, gallops, or rubs. No JVD RESPIRATORY/CHEST: Symmetric, unlabored respirations. Breath sounds equal bilaterally. No audible ronchi. No wheezes, rales. GASTROINTESTINAL: Abdomen soft, non-tender, nondistended. No hepato-splenomegaly , or palpable masses. No guarding. Bowel sounds hypoactive. GENITOURINARY: Without palpable bladder distension. Tejeda catheter in place. MUSCULOSKELETAL: Extremities without clubbing, cyanosis, or edema. No mottling. LYMPHATICS: Not examined. NEUROLOGICAL: Does not awaken to loud voice or exam. Unable to follow commands. Decerebrate posturing to noxious stimuli. PSYCHIATRIC: Unable to evaluate due to level of responsiveness . Diagnostic Tests Laboratory Laboratory Tests Test 11/13/16 11/14/16 11/15/16 11/15/16 03:56 04:55 04:07 08:57 White Blood Count 4.1 TH/MM3 6.3 TH/MM3 7.2 TH/MM3 (4.0-11.0) (4.0-11.0) (4.0-11.0) Red Blood Count 3.50 MIL/MM3 3.79 MIL/MM3 3.84 MIL/MM3 (4.00-5.30) (4.00-5.30) (4.00-5.30) Hemoglobin 6.3 GM/DL 6.9 GM/DL 7.1 GM/DL (11.6-15.3) (11.6-15.3) (11.6-15.3) Hematocrit 22.0 % 23.9 % 23.9 % (35.0-46.0) (35.0-46.0) (35.0-46.0) Mean Corpuscular Volume 62.7 FL 62.9 FL 62.1 FL (80.0-100.0) (80.0-100.0) (80.0-100.0) Mean Corpuscular Hemoglobin 18.0 PG 18.2 PG 18.5 PG (27.0-34.0) (27.0-34.0) (27.0-34.0) Mean Corpuscular Hemoglobin 28.8 % 29.0 % 29.8 % Concent (32.0-36.0) (32.0-36.0) (32.0-36.0) Red Cell Distribution Width 20.0 % 20.4 % 20.1 % (11.6-17.2) (11.6-17.2) (11.6-17.2) Platelet Count 69 TH/MM3 78 TH/MM3 83 TH/MM3 (150-450) (150-450) (150-450) Mean Platelet Volume 9.1 FL 9.3 FL 9.6 FL (7.0-11.0) (7.0-11.0) (7.0-11.0) Sodium Level 154 MEQ/L 148 MEQ/L 144 MEQ/L (136-145) (136-145) (136-145) Potassium Level 3.8 MEQ/L 3.9 MEQ/L 4.5 MEQ/L (3.5-5.1) (3.5-5.1) (3.5-5.1) Chloride Level 118 MEQ/L 113 MEQ/L 108 MEQ/L (98-107) (98-107) (98-107) Carbon Dioxide Level 28.8 MEQ/L 29.7 MEQ/L 30.0 MEQ/L (21.0-32.0) (21.0-32.0) (21.0-32.0) Anion Gap 7 MEQ/L (5-15) 5 MEQ/L (5-15) 6 MEQ/L (5-15) Blood Urea Nitrogen 24 MG/DL (7-18) 29 MG/DL (7-18) 24 MG/DL (7-18) Creatinine 0.79 MG/DL 1.06 MG/DL 0.74 MG/DL (0.50-1.00) (0.50-1.00) (0.50-1.00) Estimat Glomerular Filtration 69 ML/MIN (>89) 49 ML/MIN (>89) 74 ML/MIN (>89) Rate Random Glucose 204 MG/DL 255 MG/DL 263 MG/DL (74-106) (74-106) (74-106) Calcium Level 8.1 MG/DL 7.5 MG/DL 7.6 MG/DL (8.5-10.1) (8.5-10.1) (8.5-10.1) . Result Diagram: 11/15/16 0857 11/15/16 0407 Microbiology Microbiology Date/Time Procedure Status Source Growth 11/12/16 17:00 Gram Stain - Final Complete Sputum Endotracheal 11/12/16 17:00 Sputum Culture - Final Complete Staphylococcus Aureus 11/12/16 17:00 Urine Culture - Final Complete Urine Catheterized Urine NO GROWTH IN 48 HOURS. 11/12/16 19:03 Aerobic Blood Culture - Preliminary Resulted Blood Peripheral NO GROWTH IN 2 DAYS 11/12/16 19:03 Anaerobic Blood Culture - Preliminary Resulted Blood Peripheral NO GROWTH IN 2 DAYS 11/12/16 19:07 Aerobic Blood Culture - Preliminary Resulted Blood Peripheral NO GROWTH IN 2 DAYS 11/12/16 19:07 Anaerobic Blood Culture - Preliminary Resulted Blood Peripheral NO GROWTH IN 2 DAYS . Imaging Last Impressions Chest X-Ray 11/15/16 0600 Signed Impressions: Service Date/Time: Tuesday, November 15, 2016 02:09 - CONCLUSION: Improved aeration. Cruzito Charles MD Head CT 11/08/16 1657 Signed Impressions: Service Date/Time: Tuesday, November 08, 2016 17:06 - CONCLUSION: Low density seen throughout the posterior circulation regions including the susan and midbrain, cerebellar hemispheres, occipital and posterior medial temporal lobes and right thalamus. This likely represents areas of infarction involving the posterior territory circulation. Jeffery Zhong MD Carotid Artery Ultrasound 11/08/16 0000 Signed Impressions: Service Date/Time: Tuesday, November 08, 2016 22:24 - CONCLUSION: Mild calcified plaque at the carotid bulbs. No evidence of hemodynamically significant carotid stenosis. José Luis Beltran MD . Procedures * Intubation/mechanical ventilation . Assessment and Plan Disease Oriented Problem List: (1) CVA (cerebral vascular accident) Comment: Very large posterior circulation stroke. . (2) Rhabdomyolysis (3) Dementia Comment: Family reports at least a 7 year history of dementia. . (4) Thrombocytopenia (5) Malnutrition Comment: Presenting albumin level was 2.8 . (6) Anemia (7) Urinary tract infection Comment: Cx of 11/08 --> E coli and Enterococcus . (8) Pneumonia Comment: Sputum cx of 11/12 growing Staph aureus. . Symptom Scale: (1) Pain 0-10 Scale: Unable to quantify Comment: Patient had no known prior pain syndromes. Current possible sources of pain include prolonged bedbound status; orotracheal intubation; vascular access catheters; Tejeda catheter. . (2) Dyspnea 0-10 Scale: Unable to quantify Comment: Dyspnea currently controlled with mechanical ventilation. . (3) Encephalopathy 0-10 Scale: Unable to quantify Comment: Patient was minimally responsive on arrival and I show no evidence of neurologic recovery. Off all sedation. Pertinent Non-Medical Issues Psychosocial: Normally lives with her sister. Her son lives by visits frequently. Spiritual: Patient is a Sikh. Blood products should not be given without the son's permission. Legal: No advance directives. Son would be the appropriate proxy health care decision-maker under the [place] statutes hierarchy. Ethical issues impacting care: Patient is incapacitated to make her own health care decisions and is not expected to regain such capacity . Important Contacts Wyatt Crawford (son and healthcare proxy) [phone] . Prognosis This is an 86-year-old female who was suffered a fairly massive posterior circulation stroke. This is on top of at least a seven-year history of dementia with the patient was already requiring assistance with most of her ADLs. There is a high risk of during this hospitalization. Should she survive, she will probably require tracheostomy to protect her airway as well as ongoing tube feedings. It is unlikely that she will have meaningful interaction with her environment. The patient would certainly be eligible for hospice services at such time that family believes the patient's goals would best be honored by transitioning to "comfort measures only." . Code Status: Full Code Plan == Code Status: The patient's son tells me he would like the patient to remain "full code" at this time. == Decision-making: The patient is incapacitated to make her own health care decisions. It is unlikely she will ever regain capacity. The patient is a and has only one adult child. Thus, under [place] statutes, her son, Wyatt Crawford, is the legal health care proxy. == Goals of medical treatment: The patient is a Sikh. No blood products should be given without the sons expressed permission. The son has told me he believes in miracles. He has wanted to do everything to keep his mother alive for the time being including resuscitation efforts. He is open to reconsidering these goals at a later date. He certainly understands that it would literally take a miracle to have his mother return to anything near the level of function she had before this devastating stroke. He is considering bringing in a "commercial litigation associate." Son said, "I am not one to keep her on life support forever, but I would want at least a month." If he is going to want her life support that long, I recommended going forward now with trach/PEG. He is unable to make that decision yet. == Pain: Patient is off all analgesics. Only responsiveness is decerebrate posturing to noxious stimuli. Nursing pain levels consistently "0." No further recommendations at this time. == Dyspnea: Currently controlled with mechanical ventilation. Tolerating CPAP trials. Even if she becomes able to ventilate herself, she will need tracheostomy as she cannot protect her airway. No further recommendations at this time. == Encephalopathy: Patient's current mental status is due to a combination of her devastating stroke and underlying dementia. Meaningful improvement would likely require a miracle. No further recommendations at this time. == Hypothermia: Resolved == Fever: Infection vs injury to thermostat. On antibiotics. Now has MSSA pneumonia and UTI with E coli + enterococcus. == Malnutrition: Patient receiving tube feedings as tolerated. == Palliative care will continue to follow to assist with symptom management and to help clarify goals of medical treatment as the clinical course evolves. Will continue to provide updates and discuss goals with son whenever possible. . Attestation To help prompt me to consider important information that might be impacting today's encounter and assessment, information from prior notes written by myself or my colleagues may have been "brought forward" into today's note. My signature on this note, however, is an attestation that I personally performed the exam, history, and/or decision-making noted today, and, unless otherwise indicated, the interactions with patient, family, and staff as well as the review of records all occurred today. I also attest that the listed assessment and stated plan reflect my best clinical judgment today based on the combination of historical information, prior notes, and today's exam/ interactions. When time spent is documented, it refers only to time spent today by the signer, or if indicated, combined time spent today by collaborating physician/nurse practitioner. . Karlos Bauer MD Nov 15, 2016 11:09
[2016-11-15] MEDS: LEVOFLOXACIN 750 MG PREMIX INJ 150 ML IV SCH (14:04)
[2016-11-15] MEDS: RESP: ALBUTEROL 2.5 MG/IPRATROPIUM 0.5 MG NEB (PRN) INH (14:32)
[2016-11-16] VITALS (18 sets, daily range): BP systolic 98–130; BP diastolic 54–60; PULSE 80–101; RESP 12–22; TEMP 98.3–101.1; O2SAT 95–99
[2016-11-16] MEDS: HIGH DOSE INSULIN NOVOLIN REGULAR SUPPLEMENTAL SCALE SQ SCH ×6 (04:00→20:00)
[2016-11-16] MEDS: CHLORHEXIDINE GLUCONATE 2 % 1 PACK (2 CLOTHS) TOP SCH (04:00)
[2016-11-16] MEDS: FREE WATER G-TUBE SCH ×4 (04:56→17:00)
[2016-11-16] MEDS: HEPARIN SODIUM - SQ 10,000 UNITS/ML VIAL SQ SCH ×2 (08:35→22:14)
[2016-11-16] MEDS: FERROUS SULFATE 300 MG /5ML UDC PO SCH ×2 (08:35→21:00)
[2016-11-16] MEDS: ARTIFICIAL TEARS OPTH SOLN 15 ML BTL EACH EYE SCH ×3 (08:35→17:00)
[2016-11-16] MEDS: CHLORHEXIDINE 0.12% (ORAL KIT) 15 ML CUP MT SCH ×2 (08:36→20:00)
[2016-11-16] MEDS: DOCUSATE SODIUM 100 MG/10 ML UDC G-TUBE SCH ×2 (08:36→21:00)
[2016-11-16] MEDS: SODIUM CHLORIDE 0.9% FLUSH 5 ML FLUSH IV FLUSH SCH ×2 (08:36→21:00)
--- NOTE | 2016-11-16 08:39 | HHI.CCPN ---
Subjective Remarks/Hospital Course This is an 86yF with per report no other past medical history who presented to the ER after she was found unresponsive in her bed. According to ER reports, her family saw her normal last night when she had a fall, with unknown LOC. At that point, he helped her back to bed. However, this morning she did not wake up. On arrival to the ER, she was unresponsive only withdrawing to pain. she was intubated for airway protection and a poor GCS. CT head demonstrated massive posterior-circulation ischemic stroke. The patient is currently intubated and unresponsive and cannot provide any additional history. 11/09: No acute changes overnight. Palliative care team has consult with the family regarding goals of care. Currently the patient's sedation fentanyl infusion has been turned off without any response from patient. The patient notably does withdrawal to pain. 11/10: No change in neurological status. [id number]. The patient withdraws to pain 4 extremities. The patient currently on no sedation, fentanyl infusion discontinued yesterday. Tube feeds were initiated. The patient's urine culture grew back Escherichia coli, the patient was started on antibiotics. Extensive discussion with son regarding patient's neurological status, son Wyatt has had extensive discussion with palliative care.The son feels that yesterday when the patient was spoken to in Haitian the patient squeezed his hand and desires aggressive treatment. The patient's neuro status is unchanged, totally unresponsive with occasional reflexive twitching of feet B/L. Follow-up with neurology Dr. Pack, guarding any further imaging studies. 11/13: No change in neuro exam. Palliative care following. Family wanting full aggressive care. Palliative care will address early trach PEG 11/14: No improvement in neuro status. Son has not made decisions regarding trach and PEG. Apparently he wants to wait longer to see any improvement 11/15: Remains unresponsive. Neuro exam with extensor posturing-unchanged. Son requesting aggressive care. Continues to have low-grade fever 11/16: Clinically no improvement. Tolerates CPAP. Unable to extubate as patient will not protect airway Objective Vital Signs Date Time Temp Pulse Resp B/P Pulse Ox O2 Delivery O2 Flow Rate FiO2 11/16/16 08:25 30 11/16/16 08:23 96 11/16/16 06:00 100 11/16/16 04:00 99.4 15 121/60 Intake and Output 11/15/16 11/15/16 11/16/16 08:00 16:00 00:00 Intake Total 750 ml 312 ml 511 ml Output Total 200 ml 200 ml 200 ml Balance 550 ml 112 ml 311 ml Result Diagram: 11/15/16 0857 11/15/16 0407 Imaging Last [address] 11/08/161656 Signed Impressions: Service Date/Time: Tuesday, November 08, 2016 17:06 - CONCLUSION: Low density seen throughout the posterior circulation regions including the susan and midbrain, cerebellar hemispheres, occipital and posterior medial temporal lobes and right thalamus. This likely represents areas of infarction involving the posterior territory circulation. Jeffery Zhong MD Chest X-Ray 11/08/161656 Signed Impressions: Service Date/Time: Tuesday, November 08, 2016 17:12 - CONCLUSION: Endotracheal tube is at the kraig and needs to be withdrawn at least 2 cm. Satisfactory position of nasogastric tube. No evidence of significant airspace disease or congestion. Hill Sequeira MD Objective Remarks GENERAL: Elderly female, lying in bed, intubated, unresponsive, critically ill. HEENT: pupils 3mm, equal, reactive. normocephalic. atraumatic. mucous membranes moist. NECK: Orotracheally intubated. No JVD. Trachea midline. CHEST: Equal chest rise. Clear to auscultation. Air entry equal bilaterally CARDIOVASCULAR: Normal rate, regular rhythm. No appreciable murmurs. ABDOMEN: Soft, nontender, nondistended. No guarding. MUSCULOSKELETAL: No peripheral edema. Distal pulses 2+. NEUROLOGICAL: Positive corneal reflex. LIDYA. Negative cough. Negative gag. Extensor posturing in uppers. Downgoing Babinski. 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 She was last seen normal, nearly 24 hours, she was not a candidate for any interventional therapy. Unfortunately, given her age, and the extent of the stroke, her prognosis for any reasonable neurologic function is quite poor, and I do not think that we will be able to improve her outcome at all. Her family expressed wishes for a short course of aggressive medical management. Active problems: Massive posterior circulation ischemic CVA Hypoxic and hypercarbic respiratory failure Severe encephalopathy secondary to stroke Anemia-chronic Hyperglycemia of critical illness Thrombocytopenia Plan Every hour neuro checks --Remains unresponsive, extensor posturing to painful stimuli --Follow-up neurology recommendations-Dr. Pack, per his evaluation prognosis no meaningful recovery No sedatives Vent bundle, Head of bed 30, when necessary nebs Wean FiO2 for goal SPO2 greater than 92% Goal systolic blood pressure less than 180. Use nicardipine as needed 2-D echo -EF 5560 %, mild aortic mitral and tricuspid regurgitation, No RWMA. Carotid ultrasound-no stenosis Subcutaneous heparin on hold secondary to thrombocytopenia, SCDs for DVT prophylaxis --Medium dose sliding scale regimen-Continue to monitor Protonix for GI prophylaxis --To continue care, will need to proceed with trach/PEG sooner than later. Vent day 9 (intubated on 11/08/16) Dispo: Palliative care medicine is following extensive discussion with the patient's son, Wyatt Crawford-plan is to continue aggressive treatment. Son has not decided up on tracheostomy and PEG placement. He stated that he did not want his mother to remain in the vegetative state. Level 2 Melchor Gil MD Nov 16, 2016 08:39
[2016-11-16] MEDS: PANTOPRAZOLE SODIUM 40 MG VIAL IV SCH (09:00)
[2016-11-16] MEDS: LEVOFLOXACIN 750 MG PREMIX INJ 150 ML IV SCH (16:59)
[2016-11-16] MEDS: ACETAMINOPHEN 650 MG/20.3 ML UDC OG-TUBE PRN (17:01)
--- NOTE | 2016-11-16 18:48 | HHI.HCPN ---
Reason for visit a. To assist with evaluation and management of symptoms including: pain; dyspnea; encephalopathy b. To assist medical decision maker(s) with: better understanding of current medical conditions; weighing benefits/burdens of medical treatment options; making medical treatment decisions. . Subjective/Interval History 86 y/o female with devastating posterior circulation stroke remains intubated, minimally responsive in an MICU bed. She has been off all sedation for several days. At time of my visit, responsiveness is limited to decerebrate (extensor) posturing to noxious stimulus. No significant change. Tolerating CPAP but unable to protect airway so she will require tracheostomy if aggressive care is desired. No signs of discomfort. Nursing pain level scores consistently at "0". Tmax 99.8. Other VS stable. 02 sats in upper 90s on 30% FIO2. Urine output 600. Bowels moving. Tolerating tube feeds. No new lab/imaging. . Family/friend interactions Nurse tells me patient's son showed up briefly early today and then left. I attempted to call him but there was no answer and "voicemail was not set up." . Advance Directives Living Will: Never completed Health Care Surrogate: Never completed Durable Power of Academic Administrator: Never completed Advance Directive Specifics Date completed: Advance directives were never completed . Health Care Surrogate(s): There is no known written designation of health care surrogate . Documented care wishes: There is no written documentation of health care goals/preferences. . Objective Vital Signs Date Time Temp Pulse Resp B/P Pulse Ox O2 Delivery O2 Flow Rate FiO2 11/16/16 18:00 101 11/16/16 16:00 99.1 98 22 130/59 98 11/16/16 16:00 97 11/16/16 15:39 96 30 11/16/16 14:00 94 11/16/16 12:00 91 11/16/16 12:00 98.6 91 16 119/56 95 11/16/16 11:10 95 30 11/16/16 10:00 101 11/16/16 08:25 30 11/16/16 08:23 96 30 11/16/16 08:00 98.3 100 15 98/54 98 11/16/16 08:00 100 11/16/16 06:00 100 11/16/16 04:17 98 30 11/16/16 04:00 81 11/16/16 04:00 30 11/16/16 04:00 99.4 81 15 121/60 98 11/16/16 02:00 80 11/16/16 01:16 98 30 11/16/16 00:00 30 11/16/16 00:00 99.8 80 15 116/57 99 11/16/16 00:00 80 11/15/16 22:12 99 30 11/15/16 22:00 83 11/15/16 20:00 30 11/15/16 20:00 99.1 85 15 115/56 98 11/15/16 20:00 85 11/15/16 19:15 98 30 Intake & Output 11/16/16 11/16/16 07:00 19:00 Intake Total 1029 ml 550 ml Output Total 400 ml 350 ml Balance 629 ml 200 ml Intake Oral 0 ml IV Total 100 ml Tube Feeding 629 ml 250 ml Other 400 ml 200 ml Output Urine Total 400 ml 350 ml # Voids 1 # Bowel Movements 1 1 . Physical Exam CONSTITUTIONAL/GENERAL: This is an adequately nourished patient, intubated, on CPAP; in an MICU bed. Responsiveness limited to decerebrate posturing with noxious stimuli. TUBES/LINES/DRAINS: orotracheal tube; orogastric tube; Tejeda catheter; peripheral IVs; SKIN: No jaundice, rashes. No wounds seen anteriorly. Skin temperature appropriate. Not diaphoretic. EYES: Pupils equal and round. Pupils non-reactive. Extraocular motions cannot be evaluated. No scleral icterus. No injection or drainage. Fundi not examined. ENT: Unable to evaluate hearing. Nose without bleeding or purulent drainage. Throat without visible erythema, exudates, masses, or lesions though difficult to evaluate due to intubations. NECK: Trachea midline. CARDIOVASCULAR: Regular rate and rhythm without murmurs, gallops, or rubs. No JVD RESPIRATORY/CHEST: Symmetric, unlabored respirations. Breath sounds equal bilaterally. Coarse breath sounds bilaterally. No wheezes, rales. GASTROINTESTINAL: Abdomen soft, non-tender, nondistended. No hepato-splenomegaly , or palpable masses. No guarding. Bowel sounds hypoactive. GENITOURINARY: Without palpable bladder distension. Tejeda catheter in place. MUSCULOSKELETAL: Extremities without clubbing, cyanosis, or edema. No mottling. LYMPHATICS: Not examined. NEUROLOGICAL: Does not awaken to loud voice or exam. Unable to follow commands. Decerebrate posturing to noxious stimuli. PSYCHIATRIC: Unable to evaluate due to level of responsiveness . Diagnostic Tests Laboratory Laboratory Tests Test 11/14/16 11/15/16 11/15/16 04:55 04:07 08:57 White Blood Count 6.3 TH/MM3 7.2 TH/MM3 (4.0-11.0) (4.0-11.0) Red Blood Count 3.79 MIL/MM3 3.84 MIL/MM3 (4.00-5.30) (4.00-5.30) Hemoglobin 6.9 GM/DL 7.1 GM/DL (11.6-15.3) (11.6-15.3) Hematocrit 23.9 % 23.9 % (35.0-46.0) (35.0-46.0) Mean Corpuscular Volume 62.9 FL 62.1 FL (80.0-100.0) (80.0-100.0) Mean Corpuscular Hemoglobin 18.2 PG 18.5 PG (27.0-34.0) (27.0-34.0) Mean Corpuscular Hemoglobin 29.0 % 29.8 % Concent (32.0-36.0) (32.0-36.0) Red Cell Distribution Width 20.4 % 20.1 % (11.6-17.2) (11.6-17.2) Platelet Count 78 TH/MM3 83 TH/MM3 (150-450) (150-450) Mean Platelet Volume 9.3 FL 9.6 FL (7.0-11.0) (7.0-11.0) Sodium Level 148 MEQ/L 144 MEQ/L (136-145) (136-145) Potassium Level 3.9 MEQ/L 4.5 MEQ/L (3.5-5.1) (3.5-5.1) Chloride Level 113 MEQ/L 108 MEQ/L (98-107) (98-107) Carbon Dioxide Level 29.7 MEQ/L 30.0 MEQ/L (21.0-32.0) (21.0-32.0) Anion Gap 5 MEQ/L (5-15) 6 MEQ/L (5-15) Blood Urea Nitrogen 29 MG/DL (7-18) 24 MG/DL (7-18) Creatinine 1.06 MG/DL 0.74 MG/DL (0.50-1.00) (0.50-1.00) Estimat Glomerular Filtration 49 ML/MIN (>89) 74 ML/MIN (>89) Rate Random Glucose 255 MG/DL 263 MG/DL (74-106) (74-106) Calcium Level 7.5 MG/DL 7.6 MG/DL (8.5-10.1) (8.5-10.1) . Result Diagram: 11/15/16 0857 11/15/16 0407 Microbiology Microbiology Date/Time Procedure Status Source Growth 11/12/16 19:07 Aerobic Blood Culture - Preliminary Resulted Blood Peripheral NO GROWTH IN 4 DAYS 11/12/16 19:07 Anaerobic Blood Culture - Preliminary Resulted Blood Peripheral NO GROWTH IN 4 DAYS 11/12/16 17:00 Urine Culture - Final Complete Urine Catheterized Urine NO GROWTH IN 48 HOURS. 11/12/16 17:00 Gram Stain - Final Complete Sputum Endotracheal 11/12/16 17:00 Sputum Culture - Final Complete Staphylococcus Aureus . Imaging Last Impressions Chest X-Ray 11/15/16 0600 Signed Impressions: Service Date/Time: Tuesday, November 15, 2016 02:09 - CONCLUSION: Improved aeration. Cruzito Charles MD Head CT 11/08/16 1657 Signed Impressions: Service Date/Time: Tuesday, November 08, 2016 17:06 - CONCLUSION: Low density seen throughout the posterior circulation regions including the susan and midbrain, cerebellar hemispheres, occipital and posterior medial temporal lobes and right thalamus. This likely represents areas of infarction involving the posterior territory circulation. Jeffery Zhong MD Carotid Artery Ultrasound 11/08/16 0000 Signed Impressions: Service Date/Time: Tuesday, November 08, 2016 22:24 - CONCLUSION: Mild calcified plaque at the carotid bulbs. No evidence of hemodynamically significant carotid stenosis. José Luis Beltran MD . Procedures * Intubation/mechanical ventilation . Assessment and Plan Disease Oriented Problem List: (1) CVA (cerebral vascular accident) Comment: Very large posterior circulation stroke. No signs of neurological recovery. Prognosis grim. . . (2) Rhabdomyolysis (3) Dementia Comment: Family reports at least a 7 year history of dementia. . (4) Thrombocytopenia (5) Malnutrition Comment: Presenting albumin level was 2.8 . (6) Anemia (7) Urinary tract infection Comment: Cx of 11/08 --> E coli and Enterococcus . (8) Pneumonia Comment: Sputum cx of 11/12 growing Staph aureus. . Symptom Scale: (1) Pain 0-10 Scale: Unable to quantify Comment: Patient had no known prior pain syndromes. Current possible sources of pain include prolonged bedbound status; orotracheal intubation; vascular access catheters; Tejeda catheter. . (2) Dyspnea 0-10 Scale: Unable to quantify Comment: Dyspnea currently controlled with mechanical ventilation. . (3) Encephalopathy 0-10 Scale: Unable to quantify Comment: Patient was minimally responsive on arrival. No evidence of neurologic recovery. Off all sedation. Pertinent Non-Medical Issues Psychosocial: Normally lives with her sister. Her son lives by visits frequently. Spiritual: Patient is a Jehovah's witness. Blood products should not be given without the son's permission. Legal: No advance directives. Son would be the appropriate proxy health care decision-maker under the [place] statXetal hierarchy. Ethical issues impacting care: Patient is incapacitated to make her own health care decisions and is not expected to regain such capacity . Important Contacts Wyatt Crawford (son and healthcare proxy) [phone] . Prognosis This is an 86-year-old female who was suffered a fairly massive posterior circulation stroke. This is on top of at least a seven-year history of dementia with the patient was already requiring assistance with most of her ADLs. There is a high risk of during this hospitalization. Should she survive, she will probably require tracheostomy to protect her airway as well as ongoing tube feedings. It is unlikely that she will have meaningful interaction with her environment. The patient would certainly be eligible for hospice services at such time that family believes the patient's goals would best be honored by transitioning to "comfort measures only." . Code Status: Full Code Plan == Code Status: The patient's son tells me he would like the patient to remain "full code" at this time. == Decision-making: The patient is incapacitated to make her own health care decisions. It is unlikely she will ever regain capacity. The patient is a and has only one adult child. Thus, under [place] statutes, her son, Wyatt Crawford, is the legal health care proxy. == Goals of medical treatment: The patient is a Jehovah's witness. No blood products should be given without the sons expressed permission. The son has told me he believes in miracles. He has wanted to do everything to keep his mother alive for the time being including resuscitation efforts. He is open to reconsidering these goals at a later date. He certainly understands that it would literally take a miracle to have his mother return to anything near the level of function she had before this devastating stroke. He is considering bringing in a "forensic chemist." Son said, "I am not one to keep her on life support forever, but I would want at least a month." If he is going to want her life support that long, I recommended going forward now with trach/PEG. He is unable to make that decision yet. == Pain: Patient is off all analgesics. Only responsiveness is decerebrate posturing to noxious stimuli. Nursing pain levels consistently "0." No further recommendations at this time. == Dyspnea: Currently controlled with mechanical ventilation. Tolerating CPAP trials. Even if she becomes able to ventilate herself, she will need tracheostomy as she cannot protect her airway. No further recommendations at this time. == Encephalopathy: Patient's current mental status is due to a combination of her devastating stroke and underlying dementia. Meaningful improvement would likely require a miracle. No further recommendations at this time. == Hypothermia: Resolved == Fever: Infection vs injury to thermostat. On antibiotics. Now has MSSA pneumonia and UTI with E coli + enterococcus. == Malnutrition: Patient receiving tube feedings as tolerated. == Palliative care will continue to follow to assist with symptom management and to help clarify goals of medical treatment as the clinical course evolves. Will continue to provide updates and discuss goals with son whenever possible. He is having a very difficult time understanding and accepting what has happened. He is unable to make difficult decisions yet. . Attestation To help prompt me to consider important information that might be impacting today's encounter and assessment, information from prior notes written by myself or my colleagues may have been "brought forward" into today's note. My signature on this note, however, is an attestation that I personally performed the exam, history, and/or decision-making noted today, and, unless otherwise indicated, the interactions with patient, family, and staff as well as the review of records all occurred today. I also attest that the listed assessment and stated plan reflect my best clinical judgment today based on the combination of historical information, prior notes, and today's exam/ interactions. When time spent is documented, it refers only to time spent today by the signer, or if indicated, combined time spent today by collaborating physician/nurse practitioner. . Karlos Bauer MD Nov 16, 2016 18:48
[2016-11-16 21:07] LABS: MEAN CORPUSCULAR HGB CONC 29.2 % (32.0-36.0)
[2016-11-17] VITALS (18 sets, daily range): BP systolic 115–143; BP diastolic 56–63; PULSE 82–109; RESP 13–27; TEMP 98.2–101.1; O2SAT 96–99
[2016-11-17] MEDS: CHLORHEXIDINE GLUCONATE 2 % 1 PACK (2 CLOTHS) TOP SCH
[2016-11-17] MEDS: HIGH DOSE INSULIN NOVOLIN REGULAR SUPPLEMENTAL SCALE SQ SCH ×6 (04:00→20:00)
[2016-11-17] MEDS: FREE WATER G-TUBE SCH ×4 (05:33→18:00)
[2016-11-17 05:55] LABS: AUTOMATED NEUTROPHIL # 4.7 TH/MM3 (1.8-7.7); BASOPHIL % 0.6 % (0.0-2.0); EOSINOPHIL # 0.4 TH/MM3 (0-0.4); EOSINOPHIL % 5.3 % (0.0-4.0); HEMATOCRIT 23.5 % (35.0-46.0); LYMPH % 18.8 % (9.0-44.0); LYMPHOCYTE # 1.4 TH/MM3 (1.0-4.8); MEAN CELL VOLUME 62.4 FL (80.0-100.0); MEAN CORPUSCULAR HEMOGLOBIN 18.2 PG (27.0-34.0); MONO % 10.7 % (0.0-8.0); NEUT % 64.6 % (16.0-70.0); PLATELET COUNT 113 TH/MM3 (150-450); RED BLOOD COUNT 3.77 MIL/MM3 (4.00-5.30); RED CELL DISTRIBUTION WIDTH 21.2 % (11.6-17.2); WHITE BLOOD COUNT 7.3 TH/MM3 (4.0-11.0)
[2016-11-17 06:05] LABS: HEMO FLAGS AUTO DIFF
[2016-11-17] MEDS: EPOETIN ALFA 10,000 UNITS/ML VIAL SQ SCH (06:38)
[2016-11-17 07:59] LABS: BANDS 2 % (0-6); EOSINOPHILS 5 % (0-4); METAMYELOCYTES 1 % (0-1); NEUTROPHIL # MANUAL DIFF 4.6 TH/MM3 (1.8-7.7); POLYS (SEG NEUTROPHILS) 60 % (16-70); WBC DIFF SAMPLE 100
[2016-11-17 08:01] LABS: KERATOCYTES OCC (NORMAL); PLATELET ESTIMATE SMEAR LOW (NORMAL); PLATELET MORPHOLOGY NORMAL (NORMAL); SCAN/DIFF FINAL DIFF MANUAL
[2016-11-17] MEDS: HEPARIN SODIUM - SQ 10,000 UNITS/ML VIAL SQ SCH ×2 (08:14→20:00)
[2016-11-17] MEDS: CHLORHEXIDINE 0.12% (ORAL KIT) 15 ML CUP MT SCH ×2 (08:14→20:00)
[2016-11-17] MEDS: SODIUM CHLORIDE 0.9% FLUSH 5 ML FLUSH IV FLUSH SCH ×2 (08:15→21:00)
[2016-11-17] MEDS: FERROUS SULFATE 300 MG /5ML UDC PO SCH ×2 (08:15→21:46)
[2016-11-17] MEDS: PANTOPRAZOLE SODIUM 40 MG VIAL IV SCH (08:15)
[2016-11-17] MEDS: DOCUSATE SODIUM 100 MG/10 ML UDC G-TUBE SCH ×2 (08:15→21:00)
[2016-11-17] MEDS: ARTIFICIAL TEARS OPTH SOLN 15 ML BTL EACH EYE SCH ×3 (08:15→18:37)
--- NOTE | 2016-11-17 10:15 | HHI.CCPN ---
Subjective Remarks/Hospital Course This is an 86yF with per report no other past medical history who presented to the ER after she was found unresponsive in her bed. According to ER reports, her family saw her normal last night when she had a fall, with unknown LOC. At that point, he helped her back to bed. However, this morning she did not wake up. On arrival to the ER, she was unresponsive only withdrawing to pain. she was intubated for airway protection and a poor GCS. CT head demonstrated massive posterior-circulation ischemic stroke. The patient is currently intubated and unresponsive and cannot provide any additional history. 11/09: No acute changes overnight. Palliative care team has consult with the family regarding goals of care. Currently the patient's sedation fentanyl infusion has been turned off without any response from patient. The patient notably does withdrawal to pain. 11/10: No change in neurological status. [id number]. The patient withdraws to pain 4 extremities. The patient currently on no sedation, fentanyl infusion discontinued yesterday. Tube feeds were initiated. The patient's urine culture grew back Escherichia coli, the patient was started on antibiotics. Extensive discussion with son regarding patient's neurological status, son Wyatt has had extensive discussion with palliative care.The son feels that yesterday when the patient was spoken to in [place] the patient squeezed his hand and desires aggressive treatment. The patient's neuro status is unchanged, totally unresponsive with occasional reflexive twitching of feet B/L. Follow-up with neurology Dr. Pack, guarding any further imaging studies. 11/13: No change in neuro exam. Palliative care following. Family wanting full aggressive care. Palliative care will address early trach PEG 11/14: No improvement in neuro status. Son has not made decisions regarding trach and PEG. Apparently he wants to wait longer to see any improvement 11/15: Remains unresponsive. Neuro exam with extensor posturing-unchanged. Son requesting aggressive care. Continues to have low-grade fever 11/16: Clinically no improvement. Tolerates CPAP. Unable to extubate as patient will not protect airway 11/17: Tolerating C Pap but no change in neuro exam. Hemoglobin noted to be 6.8 hemodynamically stable Objective Vital Signs Date Time Temp Pulse Resp B/P Pulse Ox O2 Delivery O2 Flow Rate FiO2 11/17/16 08:00 98.2 82 18 124/60 98 11/17/16 08:00 30 Intake and Output 11/16/16 11/16/16 11/16/16 07:59 15:59 23:59 Intake Total 518 ml 550 ml 511 ml Output Total 200 ml 350 ml 300 ml Balance 318 ml 200 ml 211 ml Result Diagram: 11/17/16 0445 11/15/16 0407 Imaging Last [address] 11/08/161656 Signed Impressions: Service Date/Time: Tuesday, November 08, 2016 17:06 - CONCLUSION: Low density seen throughout the posterior circulation regions including the susan and midbrain, cerebellar hemispheres, occipital and posterior medial temporal lobes and right thalamus. This likely represents areas of infarction involving the posterior territory circulation. Jeffery Zhong MD Chest X-Ray 11/08/161656 Signed Impressions: Service Date/Time: Tuesday, November 08, 2016 17:12 - CONCLUSION: Endotracheal tube is at the kraig and needs to be withdrawn at least 2 cm. Satisfactory position of nasogastric tube. No evidence of significant airspace disease or congestion. Hill Sequeira MD Objective Remarks GENERAL: Elderly female, lying in bed, intubated, unresponsive, critically ill. HEENT: pupils 3mm, equal, reactive. normocephalic. atraumatic. mucous membranes moist. NECK: Orotracheally intubated. No JVD. Trachea midline. CHEST: Equal chest rise. Clear to auscultation. Air entry equal bilaterally CARDIOVASCULAR: Normal rate, regular rhythm. No appreciable murmurs. ABDOMEN: Soft, nontender, nondistended. No guarding. MUSCULOSKELETAL: No peripheral edema. Distal pulses 2+. NEUROLOGICAL: Positive corneal reflex. LIDYA. Negative cough. Negative gag. Extensor posturing in uppers. Downgoing Babinski. 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 She was last seen normal, nearly 24 hours, she was not a candidate for any interventional therapy. Unfortunately, given her age, and the extent of the stroke, her prognosis for any reasonable neurologic function is quite poor, and I do not think that we will be able to improve her outcome at all. Her family expressed wishes for a short course of aggressive medical management. Active problems: Massive posterior circulation ischemic CVA Hypoxic and hypercarbic respiratory failure Severe encephalopathy secondary to stroke Anemia-chronic Hyperglycemia of critical illness Thrombocytopenia Plan Every hour neuro checks. No sedatives given for several days --Remains unresponsive, extensor posturing to painful stimuli --Follow-up neurology recommendations-Dr. Pack, per his evaluation prognosis no meaningful recovery Vent bundle, Head of bed 30, when necessary nebs Wean FiO2 for goal SPO2 greater than 90% Goal systolic blood pressure less than 180. Use nicardipine as needed 2-D echo -EF 5560 %, mild aortic mitral and tricuspid regurgitation, No RWMA. Carotid ultrasound-no stenosis Subcutaneous heparin on hold secondary to thrombocytopenia, anemia. Platelet count is improved 113 however hemoglobin initially 6.8. SCDs for DVT prophylaxis --Medium dose sliding scale regimen-Continue to monitor Protonix for GI prophylaxis --To continue care, will need to proceed with trach/PEG sooner than later. Vent day 10 (intubated on 11/08/16) Dispo: Palliative care medicine is following extensive discussion with the patient's son, Wyatt Crawford-plan is to continue aggressive treatment. Son has not decided up on tracheostomy and PEG placement. He stated that he did not want his mother to remain in the vegetative state. Level 2 Melchor Gil MD Nov 17, 2016 10:15
[2016-11-17] MEDS: LEVOFLOXACIN 750 MG PREMIX INJ 150 ML IV SCH (15:52)
[2016-11-18] VITALS (21 sets, daily range): BP systolic 91–125; BP diastolic 47–55; PULSE 86–115; RESP 10–21; TEMP 98.6–103; O2SAT 95–98
[2016-11-18] MEDS: CHLORHEXIDINE GLUCONATE 2 % 1 PACK (2 CLOTHS) TOP SCH (01:03)
[2016-11-18] MEDS: HIGH DOSE INSULIN NOVOLIN REGULAR SUPPLEMENTAL SCALE SQ SCH ×6 (04:00→20:00)
[2016-11-18] MEDS: RESP: ALBUTEROL 2.5 MG/IPRATROPIUM 0.5 MG NEB (PRN) INH (04:28)
[2016-11-18] MEDS: FREE WATER G-TUBE SCH ×4 (05:24→18:00)
[2016-11-18] MEDS: ACETAMINOPHEN 650 MG/20.3 ML UDC OG-TUBE PRN ×2 (05:48→10:07)
[2016-11-18] MEDS: CHLORHEXIDINE 0.12% (ORAL KIT) 15 ML CUP MT SCH ×2 (08:00→20:03)
--- NOTE | 2016-11-18 08:01 | HHI.CCPN ---
Subjective Remarks/Hospital Course This is an 86yF with per report no other past medical history who presented to the ER after she was found unresponsive in her bed. According to ER reports, her family saw her normal last night when she had a fall, with unknown LOC. At that point, he helped her back to bed. However, this morning she did not wake up. On arrival to the ER, she was unresponsive only withdrawing to pain. she was intubated for airway protection and a poor GCS. CT head demonstrated massive posterior-circulation ischemic stroke. The patient is currently intubated and unresponsive and cannot provide any additional history. 11/09: No acute changes overnight. Palliative care team has consult with the family regarding goals of care. Currently the patient's sedation fentanyl infusion has been turned off without any response from patient. The patient notably does withdrawal to pain. 11/10: No change in neurological status. E1V1M4. The patient withdraws to pain 4 extremities. The patient currently on no sedation, fentanyl infusion discontinued yesterday. Tube feeds were initiated. The patient's urine culture grew back Escherichia coli, the patient was started on antibiotics. Extensive discussion with son regarding patient's neurological status, son Wyatt has had extensive discussion with palliative care.The son feels that yesterday when the patient was spoken to in [place] the patient squeezed his hand and desires aggressive treatment. The patient's neuro status is unchanged, totally unresponsive with occasional reflexive twitching of feet B/L. Follow-up with neurology Dr. Pack, guarding any further imaging studies. 11/13: No change in neuro exam. Palliative care following. Family wanting full aggressive care. Palliative care will address early trach PEG 11/14: No improvement in neuro status. Son has not made decisions regarding trach and PEG. Apparently he wants to wait longer to see any improvement 11/15: Remains unresponsive. Neuro exam with extensor posturing-unchanged. Son requesting aggressive care. Continues to have low-grade fever 11/16: Clinically no improvement. Tolerates CPAP. Unable to extubate as patient will not protect airway 11/17: Tolerating C Pap but no change in neuro exam. Hemoglobin noted to be 6.8 hemodynamically stable 11/18: Became tachycardic and hypotensive early a.m., placed on assist control. Otherwise neuro exam remains unchanged Objective Vital Signs Date Time Temp Pulse Resp B/P Pulse Ox O2 Delivery O2 Flow Rate FiO2 11/18/16 06:00 111 11/18/16 05:00 101.3 20 99/49 96 11/18/16 04:41 30 Intake and Output 11/17/16 11/17/16 11/18/16 08:00 16:00 00:00 Intake Total 529 ml 665 ml 507 ml Output Total 300 ml 450 ml 250 ml Balance 229 ml 215 ml 257 ml Result Diagram: 11/17/16 0445 11/15/16 0407 Imaging Last [address] 11/08/161656 Signed Impressions: Service Date/Time: Tuesday, November 08, 2016 17:06 - CONCLUSION: Low density seen throughout the posterior circulation regions including the susan and midbrain, cerebellar hemispheres, occipital and posterior medial temporal lobes and right thalamus. This likely represents areas of infarction involving the posterior territory circulation. Jeffery Zhong MD Chest X-Ray 11/08/161656 Signed Impressions: Service Date/Time: Tuesday, November 08, 2016 17:12 - CONCLUSION: Endotracheal tube is at the kraig and needs to be withdrawn at least 2 cm. Satisfactory position of nasogastric tube. No evidence of significant airspace disease or congestion. Hill Sequeira MD Objective Remarks GENERAL: Elderly female, lying in bed, intubated, unresponsive, critically ill. HEENT: pupils 3mm, equal, reactive. normocephalic. atraumatic. mucous membranes moist. NECK: Orotracheally intubated. No JVD. Trachea midline. CHEST: Equal chest rise. Clear to auscultation. Air entry equal bilaterally CARDIOVASCULAR: Normal rate, regular rhythm. No appreciable murmurs. ABDOMEN: Soft, nontender, nondistended. No guarding. MUSCULOSKELETAL: No peripheral edema. Distal pulses 2+. NEUROLOGICAL: Positive corneal reflex. LIDYA. Negative cough. Negative gag. Extensor posturing in uppers. Downgoing Babinski. 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 She was last seen normal, nearly 24 hours, she was not a candidate for any interventional therapy. Unfortunately, given her age, and the extent of the stroke, her prognosis for any reasonable neurologic function is quite poor, and I do not think that we will be able to improve her outcome at all. Her family expressed wishes for a short course of aggressive medical management. Active problems: Massive posterior circulation ischemic CVA Hypoxic and hypercarbic respiratory failure Severe encephalopathy secondary to stroke Anemia-chronic Hyperglycemia of critical illness Thrombocytopenia Plan Neuro: Every hour neuro checks. No sedatives given for several days --Remains unresponsive, extensor posturing to painful stimuli Resp: --Follow-up neurology recommendations-Dr. Pack, per his evaluation prognosis no meaningful recovery Vent bundle, Head of bed 30, when necessary nebs Wean FiO2 for goal SPO2 greater than 90% CVS: Goal systolic blood pressure less than 180. Use nicardipine as needed 2-D echo -EF 5560 %, mild aortic mitral and tricuspid regurgitation, No RWMA. Carotid ultrasound-no stenosis GI: -Tolerating tube feeding, Having BMs : -Monitor urine output, monitor BUN/creatinine ID: -Continue Levaquin to cover for MSSA pneumonia, UTI with Escherichia coli, enterococcus faecalis (All 3 organisms to quinolones) Endo: --Medium dose sliding scale regimen-Continue to monitor Proph: Subcutaneous heparin on hold secondary to thrombocytopenia, anemia. Platelet count is improved 113 however hemoglobin initially 6.8. SCDs for DVT prophylaxis Protonix for GI prophylaxis Dispo: --To continue care, will need to proceed with trach/PEG sooner than later. Vent day 11 (intubated on 11/08/16) Dispo: Palliative care medicine is following extensive discussion with the patient's son, Wyatt Crawford-plan is to continue aggressive treatment. Son has not decided up on tracheostomy and PEG placement. He stated that he did not want his mother to remain in the vegetative state. Level 3 Melchor Gil MD Nov 18, 2016 08:01
--- NOTE | 2016-11-18 09:17 | RADRPT ---
EXAM DATE/TIME: 11/18/2016 08:21 [facility] COMPARISON: CHEST SINGLE AP, November 15, 2016, 2:09. INDICATIONS : Respiratory disease. MEDICAL HISTORY : Cerebrovascular disease. SURGICAL HISTORY : None. ENCOUNTER: Subsequent ACUITY: 2 weeks PAIN SCORE: Non-responsive. LOCATION: Bilateral chest FINDINGS: Single AP semiupright portable view of the chest demonstrates a stable appearance of a right-sided ce ntral line with the tip overlying the distal SVC. The endotracheal tube tip is at the level of the cl avicles projecting 1.5 cm above the level of the kraig, stable. There is a gastric tube is seen exte nding beyond the imaged portion of the film. There is stable hypoinflation of the lungs, right worse than left. The lungs are otherwise grossly cl ear. The heart size is within normal limits and there is prominence of the pulmonary vasculature, lik mckenzie secondary to portable supine technique. CONCLUSION: Essentially stable exam. No evidence of focal airspace consolidation. The prominence of the pulmonary vasculature may be secondary to portable technique versus volume overload.. Altagracia Brothers MD on November 18, 2016 at 9:14 Board Certified Radiologist. This report was verified electronically.
[2016-11-18] MEDS: PANTOPRAZOLE SODIUM 40 MG VIAL IV SCH (09:32)
[2016-11-18] MEDS: HEPARIN SODIUM - SQ 10,000 UNITS/ML VIAL SQ SCH ×2 (09:33→20:03)
[2016-11-18] MEDS: SODIUM CHLORIDE 0.9% FLUSH 5 ML FLUSH IV FLUSH SCH ×2 (09:33→20:03)
[2016-11-18] MEDS: FERROUS SULFATE 300 MG /5ML UDC PO SCH ×2 (09:33→20:03)
[2016-11-18] MEDS: ARTIFICIAL TEARS OPTH SOLN 15 ML BTL EACH EYE SCH ×3 (09:35→18:26)
[2016-11-18] MEDS: DOCUSATE SODIUM 100 MG/10 ML UDC G-TUBE SCH ×2 (09:37→20:03)
[2016-11-18 10:54] LABS: MEAN CORPUSCULAR HGB CONC 29.3 % (32.0-36.0)
[2016-11-18] MEDS ORDERED: VANCOMYCIN INJ 1,000 MG in SODIUM CHLOR 0.9% 250 ML INJ 250 ML IV ONE (11:00)
[2016-11-18] MEDS ORDERED: Vancomycin Consult Pharmacy 1 EA OTHER SCH (11:00)
[2016-11-18 12:01] LABS: AUTOMATED NEUTROPHIL # 8.4 TH/MM3 (1.8-7.7); BASOPHIL # 0.1 TH/MM3 (0-0.2); BASOPHIL % 0.6 % (0.0-2.0); EOSINOPHIL # 0.2 TH/MM3 (0-0.4); EOSINOPHIL % 2.1 % (0.0-4.0); LYMPH % 15.2 % (9.0-44.0); LYMPHOCYTE # 1.7 TH/MM3 (1.0-4.8); MEAN CELL VOLUME 64.2 FL (80.0-100.0); MEAN CORPUSCULAR HEMOGLOBIN 18.8 PG (27.0-34.0); MONO % 8.1 % (0.0-8.0); PLATELET COUNT 149 TH/MM3 (150-450); RED BLOOD COUNT 2.79 MIL/MM3 (4.00-5.30); WHITE BLOOD COUNT 11.4 TH/MM3 (4.0-11.0)
[2016-11-18] MEDS: CEFEPIME INJ 2,000 MG in SODIUM CHLORIDE 0.9% INJ 100 ML IV SCH ×2 (12:01→20:03)
[2016-11-18 12:03] LABS: HEMO FLAGS AUTO DIFF
[2016-11-18 12:07] LABS: HEMATOCRIT 17.9 % (35.0-46.0)
[2016-11-18 12:59] LABS: BANDS 9 % (0-6); BASOPHILS 1 % (0-2); CORRECTED NUCLEATED RBC 3 /100 WBC (0-0); EOSINOPHILS 1 % (0-4); MYELOCYTES 2 % (0-0); NEUTROPHIL # MANUAL DIFF 9.9 TH/MM3 (1.8-7.7); POLYS (SEG NEUTROPHILS) 76 % (16-70); WBC DIFF SAMPLE 100
[2016-11-18 13:00] LABS: PLATELET ESTIMATE SMEAR LOW (NORMAL); PLATELET MORPHOLOGY NORMAL (NORMAL); SCAN/DIFF FINAL DIFF MANUAL
[2016-11-18] MEDS ORDERED: VANCOMYCIN 1,000 MG/NS 250 ML IV SCH ×2 (13:00)
[2016-11-18 13:01] LABS: OVALOCYTES 1+ (NORMAL)
--- NOTE | 2016-11-18 13:56 | HHI.HCPN ---
I called and spoke with Mr. Crawford. (pt's son). Informed him, that I am sorry about this devasting stroke pt has suffered. Discuss overall prognosis, and pt's hgb level, and that pt is hypotensive. I endorse that pt is dying, especially without blood transfusion. I state that even with it, prognosis remains poor. I ask Mr. Crawford that if he feels her mom has had enough, we can transition to comfort measures only. Pt's son is asking if he can donate blood to his mom. I state given the emergency that the current situation we are in, and the time it takes to process blood, I don't think it will be enough time. I told him we need to know. We can either continue the aggressive road, blood, full code, cpr etc. or transition to comfort only, with hospice on board. I told him I am sorry his mom is in his current situation. He ask if he can speak with nail kegger to get up to date info.. I said, I cannot promise, but will try. Pt' son state he will call his Aunt right now and discuss which path to go down at. (It appears goals are still aggressive) I said the medical team will call him at 3:00 pm to find out his decision ( weather to transfuse and continue aggressive care code, cpr). d/w with nail kegger. Mick Castro M.D. Addendum. Mr. Crawford, called me back after discussing with Aunt. They are going with continue aggressive measures meaning blood transfusion, full code, etc. I told them that nail kegger likely will not be able to call back, no guarantees. He states he understands. Message was conveyed to nail kegger, who will start blood transfusion. Mick Orellana M.D., MD Nov 18, 2016 13:55
[2016-11-18] MEDS: LEVOFLOXACIN 750 MG PREMIX INJ 150 ML IV SCH (15:45)
[2016-11-18 23:31] LABS: HEMATOCRIT 28.5 % (35.0-46.0)
[2016-11-18 23:34] LABS: REVIEW FLAG FINAL
[2016-11-19] VITALS (19 sets, daily range): BP systolic 117–137; BP diastolic 50–58; PULSE 79–100; RESP 10–24; TEMP 99.9–103.1; O2SAT 96–99
[2016-11-19] MEDS: CHLORHEXIDINE GLUCONATE 2 % 1 PACK (2 CLOTHS) TOP SCH (03:59)
[2016-11-19] MEDS: HIGH DOSE INSULIN NOVOLIN REGULAR SUPPLEMENTAL SCALE SQ SCH ×6 (03:59→19:57)
[2016-11-19] MEDS: CEFEPIME INJ 2,000 MG in SODIUM CHLORIDE 0.9% INJ 100 ML IV SCH ×3 (03:59→19:56)
[2016-11-19] MEDS: ACETAMINOPHEN 650 MG/20.3 ML UDC OG-TUBE PRN ×3 (04:00→19:58)
[2016-11-19] MEDS: FREE WATER G-TUBE SCH ×4 (05:07→17:50)
[2016-11-19 06:42] LABS: BICARBONATE 25.1 MEQ/L (21.0-32.0); CALCIUM-PROTEIN CORRECTED 8.5 MG/DL (8.5-10.1); POTASSIUM 4.6 MEQ/L (3.5-5.1); TOTAL BILIRUBIN ADULT 0.8 MG/DL (0.2-1.0)
[2016-11-19] MEDS: CHLORHEXIDINE 0.12% (ORAL KIT) 15 ML CUP MT SCH ×2 (08:00→19:56)
--- NOTE | 2016-11-19 08:00 | HHI.CCPN ---
Subjective Remarks/Hospital Course This is an 86yF with per report no other past medical history who presented to the ER after she was found unresponsive in her bed. According to ER reports, her family saw her normal last night when she had a fall, with unknown LOC. At that point, he helped her back to bed. However, this morning she did not wake up. On arrival to the ER, she was unresponsive only withdrawing to pain. she was intubated for airway protection and a poor GCS. CT head demonstrated massive posterior-circulation ischemic stroke. The patient is currently intubated and unresponsive and cannot provide any additional history. 11/09: No acute changes overnight. Palliative care team has consult with the family regarding goals of care. Currently the patient's sedation fentanyl infusion has been turned off without any response from patient. The patient notably does withdrawal to pain. 11/10: No change in neurological status. E1V1M4. The patient withdraws to pain 4 extremities. The patient currently on no sedation, fentanyl infusion discontinued yesterday. Tube feeds were initiated. The patient's urine culture grew back Escherichia coli, the patient was started on antibiotics. Extensive discussion with son regarding patient's neurological status, son Wyatt has had extensive discussion with palliative care.The son feels that yesterday when the patient was spoken to in [place] the patient squeezed his hand and desires aggressive treatment. The patient's neuro status is unchanged, totally unresponsive with occasional reflexive twitching of feet B/L. Follow-up with neurology Dr. Pack, guarding any further imaging studies. 11/13: No change in neuro exam. Palliative care following. Family wanting full aggressive care. Palliative care will address early trach PEG 11/14: No improvement in neuro status. Son has not made decisions regarding trach and PEG. Apparently he wants to wait longer to see any improvement 11/15: Remains unresponsive. Neuro exam with extensor posturing-unchanged. Son requesting aggressive care. Continues to have low-grade fever 11/16: Clinically no improvement. Tolerates CPAP. Unable to extubate as patient will not protect airway 11/17: Tolerating C Pap but no change in neuro exam. Hemoglobin noted to be 6.8 hemodynamically stable 11/18: Became tachycardic and hypotensive early a.m., placed on assist control. Otherwise neuro exam remains unchanged 11/19: Continues to spike fever Tmax 102, started on vancomycin and cefepime in addition to Levaquin yesterday. Currently only low-grade fever. Received 2 units of blood for hemoglobin of 5.3. CBC pending at this time. No improvement in neuro exam Objective Vital Signs Date Time Temp Pulse Resp B/P Pulse Ox O2 Delivery O2 Flow Rate FiO2 11/19/16 06:00 90 11/19/16 04:11 96 30 11/19/16 04:00 100.9 17 126/55 Intake and Output 11/18/16 11/18/16 11/19/16 08:00 16:00 00:00 Intake Total 541 ml 412 ml 1974 ml Output Total 200 ml 150 ml 250 ml Balance 341 ml 262 ml 1724 ml Result Diagram: 11/18/16 2307 11/19/16 0450 Imaging Last [address] 11/08/161656 Signed Impressions: Service Date/Time: Tuesday, November 08, 2016 17:06 - CONCLUSION: Low density seen throughout the posterior circulation regions including the susan and midbrain, cerebellar hemispheres, occipital and posterior medial temporal lobes and right thalamus. This likely represents areas of infarction involving the posterior territory circulation. Jeffery Zhong MD Chest X-Ray 11/08/161656 Signed Impressions: Service Date/Time: Tuesday, November 08, 2016 17:12 - CONCLUSION: Endotracheal tube is at the kraig and needs to be withdrawn at least 2 cm. Satisfactory position of nasogastric tube. No evidence of significant airspace disease or congestion. Hill Sequeira MD Objective Remarks GENERAL: Elderly female, lying in bed, intubated, unresponsive, critically ill. HEENT: pupils 3mm, equal, reactive. normocephalic. atraumatic. mucous membranes moist. NECK: Orotracheally intubated. No JVD. Trachea midline. CHEST: Equal chest rise. Clear to auscultation. Air entry equal bilaterally CARDIOVASCULAR: Normal rate, regular rhythm. No appreciable murmurs. ABDOMEN: Soft, nontender, nondistended. No guarding. MUSCULOSKELETAL: No peripheral edema. Distal pulses 2+. NEUROLOGICAL: Positive corneal reflex. LIDYA. Negative cough. Negative gag. Extensor posturing in uppers. Downgoing Babinski. 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 She was last seen normal, nearly 24 hours, she was not a candidate for any interventional therapy. Unfortunately, given her age, and the extent of the stroke, her prognosis for any reasonable neurologic function is quite poor, and I do not think that we will be able to improve her outcome at all. Her family expressed wishes for a short course of aggressive medical management. Active problems: Massive posterior circulation ischemic CVA Hypoxic and hypercarbic respiratory failure Severe encephalopathy secondary to stroke Anemia-chronic Hyperglycemia of critical illness Thrombocytopenia Plan Neuro: Every hour neuro checks. No sedatives given for several days --Remains unresponsive, extensor posturing to painful stimuli --There is no clinical improvement and patient's chance of meaningful recovery is very minimal --Son wants to continue aggressive care --Follow-up neurology recommendations-Dr. Pack, per his evaluation prognosis no meaningful recovery Resp: Vent bundle, Head of bed 30, when necessary nebs Wean FiO2 for goal SPO2 greater than 90% --Need trach and PEG to continue aggressive care-son has not consented yet CVS: Goal systolic blood pressure less than 180. Use nicardipine, PRN labetalol and hydralazine as needed 2-D echo -EF 5560 %, mild aortic mitral and tricuspid regurgitation, No RWMA. Carotid ultrasound-no stenosis GI: -Tolerating tube feeding, Having BMs : -Monitor urine output, monitor BUN/creatinine ID: -Continue cefepime, vancomycin and Levaquin to cover for new onset fever, and also MSSA pneumonia, UTI with Escherichia coli, enterococcus faecalis (All 3 organisms to quinolones) -New cultures from 11/18/16 pending Endo: --Medium dose sliding scale regimen-Continue to monitor Proph: Subcutaneous heparin on hold secondary to thrombocytopenia, anemia. Platelet count is improved however hemoglobin 5.3 yesterday. SCDs for DVT prophylaxis Protonix for GI prophylaxis Dispo: --To continue care, will need to proceed with trach/PEG sooner than later. Vent day 12 (intubated on 11/08/16) Dispo: Palliative care medicine is following extensive discussion with the patient's son, Wyatt Crawford-plan is to continue aggressive treatment. Son has not decided up on tracheostomy and PEG placement. He stated that he did not want his mother to remain in the vegetative state. Level 2 Melchor Gil MD Nov 19, 2016 08:00
[2016-11-19] MEDS: DOCUSATE SODIUM 100 MG/10 ML UDC G-TUBE SCH ×2 (09:00→19:57)
[2016-11-19] MEDS: FERROUS SULFATE 300 MG /5ML UDC PO SCH ×2 (09:17→19:58)
[2016-11-19] MEDS: PANTOPRAZOLE SODIUM 40 MG VIAL IV SCH (09:17)
[2016-11-19] MEDS: SODIUM CHLORIDE 0.9% FLUSH 5 ML FLUSH IV FLUSH SCH ×2 (09:17→19:57)
[2016-11-19] MEDS: ARTIFICIAL TEARS OPTH SOLN 15 ML BTL EACH EYE SCH ×3 (09:18→17:50)
[2016-11-19 09:31] LABS: AUTOMATED NEUTROPHIL # 15.7 TH/MM3 (1.8-7.7); BASOPHIL % 0.2 % (0.0-2.0); EOSINOPHIL # 0.6 TH/MM3 (0-0.4); EOSINOPHIL % 3.3 % (0.0-4.0); LYMPH % 8.6 % (9.0-44.0); LYMPHOCYTE # 1.7 TH/MM3 (1.0-4.8); MEAN CORPUSCULAR HEMOGLOBIN 22.3 PG (27.0-34.0); MONO % 6.2 % (0.0-8.0); NEUT % 81.7 % (16.0-70.0); PLATELET COUNT 114 TH/MM3 (150-450); RED BLOOD COUNT 4.03 MIL/MM3 (4.00-5.30); RED CELL DISTRIBUTION WIDTH 28.1 % (11.6-17.2); WHITE BLOOD COUNT 19.2 TH/MM3 (4.0-11.0)
[2016-11-19] MEDS: HEPARIN SODIUM - SQ 10,000 UNITS/ML VIAL SQ SCH ×2 (09:35→19:56)
[2016-11-19 09:37] LABS: HEMO FLAGS AUTO DIFF
[2016-11-19 13:42] LABS: BANDS 18 % (0-6); CORRECTED NUCLEATED RBC 1 /100 WBC (0-0); EOSINOPHILS 4 % (0-4); NEUTROPHIL # MANUAL DIFF 16.5 TH/MM3 (1.8-7.7); OVALOCYTES 1+ (NORMAL); PLATELET ESTIMATE SMEAR LOW (NORMAL); PLATELET MORPHOLOGY ENLARGED (NORMAL); POLYS (SEG NEUTROPHILS) 68 % (16-70); SCAN/DIFF FINAL DIFF MANUAL; WBC DIFF SAMPLE 100
--- NOTE | 2016-11-19 14:00 | HHI.HCPN ---
Got called, and spoke with pt's Son Wyatt again. He had left a voicemail this afternoon. He states he had premonition from God, and wanted to make it clear he wants every thing done to keep patient alive and recover. He states he got it from God himself. He states he believes in miracles, and "God likes to do it with smokes and mirrors" so that it seems like it is the therapy and doctors that makes the patient recovers; but it is always God himself. He state he has been doing research, and inquire about "stem cell for stroke pt, and why it is not offered." They can do whatever "Outlandish or Frankinstein procedure" if it helps patient recovers. "Please let all the doctors know." I called back and spoke with patient son, and let him know his goals of care is clear, and that pt is full code, and will get aggressive measures including blood transfusion. I told him I don't believe our hospital does stem cell transplant. I did tell him even if that is the case, pt needs to be stable, before considering. Reminded him pt was anemic, hypotensive, febrile and remains critical. He states "I just want to let the medical team know, to do every thing they can , I believe in miracles." I tell him that palliative care will follow up with him tomorrow. He was appreciative of the call. Mick Orellana M.D., MD Nov 19, 2016 14:00
[2016-11-20] VITALS (19 sets, daily range): BP systolic 111–124; BP diastolic 49–58; PULSE 75–91; RESP 12–26; TEMP 97.8–101.3; O2SAT 93–100
[2016-11-20] MEDS: HIGH DOSE INSULIN NOVOLIN REGULAR SUPPLEMENTAL SCALE SQ SCH ×6 (04:00→22:36)
[2016-11-20] MEDS: CHLORHEXIDINE GLUCONATE 2 % 1 PACK (2 CLOTHS) TOP SCH (04:00)
[2016-11-20] MEDS: CEFEPIME INJ 2,000 MG in SODIUM CHLORIDE 0.9% INJ 100 ML IV SCH ×3 (04:42→22:37)
--- NOTE | 2016-11-20 05:50 | RADRPT ---
EXAM DATE/TIME: 11/20/2016 03:43 [facility] COMPARISON: CHEST SINGLE AP, November 18, 2016, 8:21. INDICATIONS : Shortness of breath, possible pulmonary disease. MEDICAL HISTORY : Cerebrovascular disease. SURGICAL HISTORY : None. ENCOUNTER: Subsequent ACUITY: 2 weeks PAIN SCORE: Non-responsive. LOCATION: Bilateral chest FINDINGS: A single view of the chest demonstrates opacification of the right hemithorax. The endotracheal tube is at the orifice of the right mainstem bronchus and should be retracted 2 cm. Left lung is clear. He art enlarged. Nasogastric tube unchanged. The cardiomediastinal contours are unremarkable. Osseous s tructures are intact. CONCLUSION: 1. Minimal density throughout the right lung, likely atelectasis. 2. Right mainstem bronchus at the orifice of the right mainstem bronchus and should be retracted at l east 2 cm. Leonardo Yung MD on November 20, 2016 at 5:46 Board Certified Radiologist. This report was verified electronically.
[2016-11-20] MEDS: FREE WATER G-TUBE SCH ×4 (06:00→18:00)
[2016-11-20] MEDS: EPOETIN ALFA 10,000 UNITS/ML VIAL SQ SCH (06:31)
[2016-11-20 07:09] LABS: AUTOMATED NEUTROPHIL # 15.4 TH/MM3 (1.8-7.7); BASOPHIL % 0.3 % (0.0-2.0); EOSINOPHIL # 0.7 TH/MM3 (0-0.4); EOSINOPHIL % 3.8 % (0.0-4.0); LYMPH % 6.1 % (9.0-44.0); LYMPHOCYTE # 1.1 TH/MM3 (1.0-4.8); MEAN CELL VOLUME 72.8 FL (80.0-100.0); MEAN CORPUSCULAR HEMOGLOBIN 23.3 PG (27.0-34.0); MEAN CORPUSCULAR HGB CONC 31.9 % (32.0-36.0); MONO % 5.7 % (0.0-8.0); NEUT % 84.1 % (16.0-70.0); PLATELET COUNT 107 TH/MM3 (150-450); RED BLOOD COUNT 3.16 MIL/MM3 (4.00-5.30); RED CELL DISTRIBUTION WIDTH 29.2 % (11.6-17.2); WHITE BLOOD COUNT 18.3 TH/MM3 (4.0-11.0)
[2016-11-20 07:25] LABS: BICARBONATE 26.5 MEQ/L (21.0-32.0); CALCIUM-PROTEIN CORRECTED 8.3 MG/DL (8.5-10.1); MAGNESIUM 2.9 MG/DL (1.5-2.5); POTASSIUM 3.9 MEQ/L (3.5-5.1); TOTAL BILIRUBIN ADULT 0.5 MG/DL (0.2-1.0)
[2016-11-20 07:29] LABS: HEMO FLAGS AUTO DIFF
[2016-11-20 08:24] LABS: BANDS 15 % (0-6); EOSINOPHILS 1 % (0-4); METAMYELOCYTES 2 % (0-1); NEUTROPHIL # MANUAL DIFF 16.7 TH/MM3 (1.8-7.7); POLYS (SEG NEUTROPHILS) 74 % (16-70); WBC DIFF SAMPLE 100
[2016-11-20 08:25] LABS: OVALOCYTES 1+ (NORMAL); PLATELET ESTIMATE SMEAR LOW (NORMAL); PLATELET MORPHOLOGY NORMAL (NORMAL)
[2016-11-20 08:26] LABS: ACANTHOCYTES OCC (NORMAL); SCAN/DIFF FINAL DIFF MANUAL
--- NOTE | 2016-11-20 09:48 | HHI.CCPN ---
Subjective Remarks/Hospital Course This is an 86yF with per report no other past medical history who presented to the ER after she was found unresponsive in her bed. According to ER reports, her family saw her normal last night when she had a fall, with unknown LOC. At that point, he helped her back to bed. However, this morning she did not wake up. On arrival to the ER, she was unresponsive only withdrawing to pain. she was intubated for airway protection and a poor GCS. CT head demonstrated massive posterior-circulation ischemic stroke. The patient is currently intubated and unresponsive and cannot provide any additional history. 11/09: No acute changes overnight. Palliative care team has consult with the family regarding goals of care. Currently the patient's sedation fentanyl infusion has been turned off without any response from patient. The patient notably does withdrawal to pain. 11/10: No change in neurological status. [id number]. The patient withdraws to pain 4 extremities. The patient currently on no sedation, fentanyl infusion discontinued yesterday. Tube feeds were initiated. The patient's urine culture grew back Escherichia coli, the patient was started on antibiotics. Extensive discussion with son regarding patient's neurological status, son Wyatt has had extensive discussion with palliative care.The son feels that yesterday when the patient was spoken to in [place] the patient squeezed his hand and desires aggressive treatment. The patient's neuro status is unchanged, totally unresponsive with occasional reflexive twitching of feet B/L. Follow-up with neurology Dr. Pack, guarding any further imaging studies. 11/13: No change in neuro exam. Palliative care following. Family wanting full aggressive care. Palliative care will address early trach PEG 11/14: No improvement in neuro status. Son has not made decisions regarding trach and PEG. Apparently he wants to wait longer to see any improvement 11/15: Remains unresponsive. Neuro exam with extensor posturing-unchanged. Son requesting aggressive care. Continues to have low-grade fever 11/16: Clinically no improvement. Tolerates CPAP. Unable to extubate as patient will not protect airway 11/17: Tolerating C Pap but no change in neuro exam. Hemoglobin noted to be 6.8 hemodynamically stable 11/18: Became tachycardic and hypotensive early a.m., placed on assist control. Otherwise neuro exam remains unchanged 11/19: Continues to spike fever Tmax 102, started on vancomycin and cefepime in addition to Levaquin yesterday. Currently only low-grade fever. Received 2 units of blood for hemoglobin of 5.3. CBC pending at this time. No improvement in neuro exam 11/20: White count is 18.3 today, MAXIMUM TEMPERATURE 103.1. Chest x-ray showing right sided infiltrate. Urine culture with gram-negative rods and Brionna albicans. ID consulted Diflucan added Objective Vital Signs Date Time Temp Pulse Resp B/P Pulse Ox O2 Delivery O2 Flow Rate FiO2 11/20/16 08:35 97 30 11/20/16 06:00 80 11/20/16 04:00 98.3 17 123/49 Intake and Output 11/19/16 11/19/16 11/20/16 08:00 16:00 00:00 Intake Total 903 ml 331 ml 371 ml Output Total 250 ml 250 ml 150 ml Balance 653 ml 81 ml 221 ml Result Diagram: 11/20/16 0530 11/20/16 0530 Imaging Last [address] 11/08/161656 Signed Impressions: Service Date/Time: Tuesday, November 08, 2016 17:06 - CONCLUSION: Low density seen throughout the posterior circulation regions including the susan and midbrain, cerebellar hemispheres, occipital and posterior medial temporal lobes and right thalamus. This likely represents areas of infarction involving the posterior territory circulation. Jeffery Zhong MD Chest X-Ray 11/08/161656 Signed Impressions: Service Date/Time: Tuesday, November 08, 2016 17:12 - CONCLUSION: Endotracheal tube is at the kraig and needs to be withdrawn at least 2 cm. Satisfactory position of nasogastric tube. No evidence of significant airspace disease or congestion. Hill Sequeira MD Objective Remarks GENERAL: Elderly female, lying in bed, intubated, unresponsive, critically ill. HEENT: pupils 3mm, equal, reactive. normocephalic. atraumatic. Mucous membranes moist. NECK: Orotracheally intubated. No JVD. Trachea midline. CHEST: Equal chest rise. Coarse breath sounds bilaterally CARDIOVASCULAR: Normal rate, regular rhythm. No appreciable murmurs. ABDOMEN: Soft, nontender, nondistended. No guarding. MUSCULOSKELETAL: No peripheral edema. Distal pulses 2+. NEUROLOGICAL: Positive corneal reflex. LIDYA. Negative cough. Negative gag. Extensor posturing in uppers. Downgoing Babinski. 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 She was last seen normal, nearly 24 hours, she was not a candidate for any interventional therapy. Unfortunately, given her age, and the extent of the stroke, her prognosis for any reasonable neurologic function is quite poor, and I do not think that we will be able to improve her outcome at all. Her family expressed wishes for a short course of aggressive medical management. Active problems: Massive posterior circulation ischemic CVA Hypoxic and hypercarbic respiratory failure Severe encephalopathy secondary to stroke Severe sepsis Right sided infiltrate/ HCAP UTI Anemia-acute and chronic Hyperglycemia of critical illness Thrombocytopenia Plan Neuro: Every hour neuro checks. No sedatives given for several days, almost 1 week now --Remains unresponsive, extensor posturing to painful stimuli --There is no clinical improvement and patient's chance of meaningful recovery is very minimal --Son wants to continue aggressive care --Follow-up neurology recommendations-Dr. Pack, per his evaluation prognosis no meaningful recovery Resp: Vent bundle, Head of bed 30, when necessary nebs Wean FiO2 for goal SPO2 greater than 90% --Need trach and PEG to continue aggressive care-son has not consented yet --Withdraw ETT 2 cm --See ID for possible HCAP treatment CVS: Goal systolic blood pressure less than 180. Use nicardipine, PRN labetalol and hydralazine as needed 2-D echo -EF 5560 %, mild aortic mitral and tricuspid regurgitation, No RWMA. Carotid ultrasound-no stenosis GI: -Tolerating tube feeding, Having BMs : -Monitor urine output, monitor BUN/creatinine ID: -Continue cefepime, vancomycin and Levaquin to cover for new onset fever, -On levaquin for and also MSSA pneumonia, UTI with Escherichia coli, enterococcus faecalis (All 3 organisms S to quinolones) -Urine culture 11/18/16 with Brionna albicans and GNR. Diflucan added -Infectious disease consulted Endo: --Medium dose sliding scale regimen-Continue to monitor Proph: Subcutaneous heparin on hold secondary to thrombocytopenia, anemia. Platelet count is improved however hemoglobin 5.3 yesterday. SCDs for DVT prophylaxis Protonix for GI prophylaxis Dispo: --To continue care, will need to proceed with trach/PEG sooner than later. Vent day 12 (intubated on 11/08/16) Dispo: Palliative care medicine is following extensive discussion with the patient's son, Wyatt Crawford-plan is to continue aggressive treatment. Son has not decided up on tracheostomy and PEG placement. He stated that he did not want his mother to remain in the vegetative state. Per Dr. Castro's note 11/19 son wants aggressive care, including 'experimental' therapy CCT 35 min Melchor Gil MD Nov 20, 2016 09:48
[2016-11-20] MEDS: CHLORHEXIDINE 0.12% (ORAL KIT) 15 ML CUP MT SCH (09:51)
[2016-11-20] MEDS: HEPARIN SODIUM - SQ 10,000 UNITS/ML VIAL SQ SCH ×2 (09:51→22:37)
[2016-11-20] MEDS: DOCUSATE SODIUM 100 MG/10 ML UDC G-TUBE SCH ×2 (09:52→22:36)
[2016-11-20] MEDS: FERROUS SULFATE 300 MG /5ML UDC PO SCH ×2 (09:52→22:36)
[2016-11-20] MEDS: ARTIFICIAL TEARS OPTH SOLN 15 ML BTL EACH EYE SCH ×3 (09:52→18:00)
[2016-11-20] MEDS: PANTOPRAZOLE SODIUM 40 MG VIAL IV SCH (09:52)
[2016-11-20] MEDS: SODIUM CHLORIDE 0.9% FLUSH 5 ML FLUSH IV FLUSH SCH ×2 (09:53→22:37)
[2016-11-20] MEDS ORDERED: VANCOMYCIN 1,000 MG/NS 250 ML IV ONE ×2 (10:00)
[2016-11-20] MEDS ORDERED: MICAFUNGIN INJ 100 MG in SODIUM CHLORIDE 0.9% INJ 100 ML IV SCH (10:00)
--- NOTE | 2016-11-20 11:01 | PD.ID.CON ---
History of Present Illness Service ID Consult Requested By Dr Gil Reason for Consult severe sepsis Primary Care Physician Cary Hernandez MD Diagnoses: History of Present Illness 86 yo female with unknown past med history was found down by her son nearly 2 weeks ago. 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 minimal secretions Pt has liquid diarrhea and has 400 cc of stool since 7 am Earlier in hospitalisation pt was diagnosed with UTI (E.coli, Enterococccus both stringer S) and MSSA in the sputum She was receiving PIp-Tazo and Levaquine Review of Systems ROS Limitations: Clinical Condition, Intubated, Altered Mental Status, Unresponsive Past Family Social History Allergies: Coded Allergies: No Known Allergies (Unverified , 11/08/16) Past Medical History dementia fairly advanced , ow unremarkable Past Surgical History none Active Ordered Medications Medications where reviewed in EMR Antibiotics Include: cefepime, vancomycin and levaquine Family History unknown Social History No Tobacco. No ETOH. No Illicit Drugs. pt is a L[employer] Physical Exam Vital Signs Vital Signs Date Time Temp Pulse Resp B/P Pulse Ox O2 Delivery O2 Flow Rate FiO2 11/20/16 08:35 97 30 11/20/16 06:00 80 11/20/16 04:10 98 30 11/20/16 04:00 78 11/20/16 04:00 98.3 78 17 123/49 97 11/20/16 02:00 75 11/20/16 01:20 98 30 11/20/16 00:00 82 11/20/16 00:00 97.8 82 14 122/58 96 11/19/16 22:06 96 30 11/19/16 22:00 81 11/19/16 20:00 103.1 93 12 127/58 96 11/19/16 20:00 93 11/19/16 19:02 96 30 11/19/16 18:00 90 11/19/16 16:00 79 11/19/16 16:00 100.9 90 24 117/50 99 11/19/16 15:10 97 30 11/19/16 14:00 96 11/19/16 12:00 100.9 99 10 129/56 97 11/19/16 12:00 99 Physical Exam CONSTITUTIONAL/GENERAL: This is a thin elderly frail patient, in no apparent distress. Intubated, on vent TUBES/LINES/DRAINS: SKIN: No jaundice, rashes, or lesions. Ecchymoses on upper extremities. No wounds seen anteriorly. Skin temperature appropriate. Not diaphoretic. HEAD: Atraumatic. Normocephalic. EYES: Pupils equal and round and reactive. Extraocular motions intact. No scleral icterus. No injection or drainage. Fundi not examined. ENT: Protruding tongue, drooling Orally intubated NECK: Trachea midline. Supple, nontender. CARDIOVASCULAR: Regular rate and rhythm without murmurs, gallops, or rubs. No JVD. Peripheral pulses symmetric. RESPIRATORY/CHEST: Symmetric, unlabored respirations. Scattered rhonchi to auscultation. Breath sounds equal bilaterally. GASTROINTESTINAL: Abdomen soft, no reaction to palpation, moderately distended. No hepato-splenomegaly, or palpable masses. No guarding. Bowel sounds present. Large amount of dark stool in fecal collectiosn sytem GENITOURINARY: Without palpable bladder distension. Tejeda catheter in place with clear yllow urine MUSCULOSKELETAL: Extremities without clubbing, cyanosis, +2 -3 soft pitting edema more prominent on BUE. No joint tenderness or effusion noted. No mottling LYMPHATICS: No palpable cervical or supraclavicular adenopathy. NEUROLOGICAL: Obtunded; not opening etyes or following commands Withdrawls PSYCHIATRIC: Unable to assess Laboratory Laboratory Tests Test 11/20/16 05:30 White Blood Count 18.3 Red Blood Count 3.16 Hemoglobin 7.4 Hematocrit 23.0 Mean Corpuscular Volume 72.8 Mean Corpuscular Hemoglobin 23.3 Mean Corpuscular Hemoglobin 31.9 Concent Red Cell Distribution Width 29.2 Platelet Count 107 Mean Platelet Volume 9.9 Neutrophils (%) (Auto) 84.1 Lymphocytes (%) (Auto) 6.1 Monocytes (%) (Auto) 5.7 Eosinophils (%) (Auto) 3.8 Basophils (%) (Auto) 0.3 Neutrophils # (Auto) 15.4 Lymphocytes # (Auto) 1.1 Monocytes # (Auto) 1.0 Eosinophils # (Auto) 0.7 Basophils # (Auto) 0.0 CBC Comment AUTO DIFF Differential Total Cells 100 Counted Neutrophils % (Manual) 74 Band Neutrophils % 15 Lymphocytes % 3 Monocytes % 5 Eosinophils % 1 Neutrophils # (Manual) 16.7 Metamyelocytes 2 Differential Comment FINAL DIFF MANUAL Platelet Estimate LOW Platelet Morphology Comment NORMAL Basophilic Stippling FAINT Ovalocytes 1+ Acanthocytes OCC Sodium Level 137 Potassium Level 3.9 Chloride Level 103 Carbon Dioxide Level 26.5 Anion Gap 8 Blood Urea Nitrogen 50 Creatinine 1.30 Estimat Glomerular Filtration 39 Rate Random Glucose 212 Calcium Level 7.0 Protein Corrected Calcium 8.3 Magnesium Level 2.9 Total Bilirubin 0.5 Aspartate Amino Transf 62 (AST/SGOT) Alanine Aminotransferase 15 (ALT/SGPT) Alkaline Phosphatase 92 Total Protein 4.7 Albumin 1.6 Random Vancomycin Level 5.0 Date/Time Procedure Status Source Growth 11/18/16 12:15 Gram Stain - Final Resulted Sputum Endotracheal 11/18/16 12:15 Sputum Culture - Preliminary Resulted Sputum Endotracheal IMMATURE GROWTH - REINCUBATE 11/18/16 12:00 Urine Culture - Final Complete Urine Catheterized Urine Escherichia Coli Brionna Albicans 11/18/16 11:12 Aerobic Blood Culture - Preliminary Resulted Blood Peripheral NO GROWTH IN 1 DAY 11/18/16 11:12 Anaerobic Blood Culture - Preliminary Resulted Blood Peripheral NO GROWTH IN 1 DAY Result Diagram: 11/20/16 0530 11/20/16 0530 Imaging Last Impressions Chest X-Ray 11/20/16 0600 Signed Impressions: Service Date/Time: Sunday, November 20, 2016 03:43 - CONCLUSION: 1. Minimal density throughout the right lung, likely atelectasis. 2. Right mainstem bronchus at the orifice of the right mainstem bronchus and should be retracted at least 2 cm. Leonardo Yung MD Head CT 11/08/16 1657 Signed Impressions: Service Date/Time: Tuesday, November 08, 2016 17:06 - CONCLUSION: Low density seen throughout the posterior circulation regions including the susan and midbrain, cerebellar hemispheres, occipital and posterior medial temporal lobes and right thalamus. This likely represents areas of infarction involving the posterior territory circulation. Jeffery Zhong MD Carotid Artery Ultrasound 11/08/16 0000 Signed Impressions: Service Date/Time: Tuesday, November 08, 2016 22:24 - CONCLUSION: Mild calcified plaque at the carotid bulbs. No evidence of hemodynamically significant carotid stenosis. José Luis Beltran MD Assessment and Plan Assessment and Plan Massive posterior circulation ischemic CVA with severe neuro deficits Severe encephalopathy secondary to stroke Acute VDRF tolerating weaning Severe sepsis: source - fever Right sided infiltrate/ HCAP Bacteriuria Funguria Diarrhea, abx associated - cont current abx for -ro C.diff - fu blood clx - abx adjustment per clx results Shani Wen MD Nov 20, 2016 11:01
[2016-11-20] MEDS: FLUCONAZOLE 100 MG PREMIX BAG 50 ML IV SCH (12:45)
[2016-11-20] MEDS ORDERED: LEVOFLOXACIN 750 MG PREMIX INJ 150 ML IV SCH (15:00)
[2016-11-20] MEDS: ACETAMINOPHEN 650 MG/20.3 ML UDC OG-TUBE PRN ×2 (16:14→22:36)
--- NOTE | 2016-11-20 16:14 | HHI.HCPN ---
Reason for visit a. To assist with evaluation and management of symptoms including: pain; dyspnea; encephalopathy b. To assist medical decision maker(s) with: better understanding of current medical conditions; weighing benefits/burdens of medical treatment options; making medical treatment decisions. . Subjective/Interval History 86 y/o female with devastating posterior circulation stroke remains intubated, minimally responsive in an MICU bed. She has been off all sedation for several days. At time of my visit, responsiveness remains limited to decerebrate (extensor) posturing to noxious stimulus. No significant change. She has been on CPAP for 2 days now, but unable to protect airway so she will require tracheostomy if aggressive care is desired. No signs of discomfort. Tmax 103 last evening. White count today 18.4, hemoglobin down from 9-7.4 this morning. . Family/friend interactions Discussed by telephone with son Wyatt by telephone. Advance Directives Living Will: Never completed Health Care Surrogate: Never completed Durable Power of Water Pump Assembler: Never completed Advance Directive Specifics Date completed: Advance directives were never completed . Health Care Surrogate(s): There is no known written designation of health care surrogate . Documented care wishes: There is no written documentation of health care goals/preferences. . Objective Vital Signs Date Time Temp Pulse Resp B/P Pulse Ox O2 Delivery O2 Flow Rate FiO2 11/20/16 14:00 87 11/20/16 12:00 84 11/20/16 12:00 98.9 84 21 124/58 97 11/20/16 12:00 35 11/20/16 11:52 97 30 11/20/16 10:00 84 11/20/16 08:35 97 30 11/20/16 08:00 80 11/20/16 08:00 35 11/20/16 08:00 99.3 80 26 114/56 96 11/20/16 06:00 80 11/20/16 04:10 98 30 11/20/16 04:00 78 11/20/16 04:00 98.3 78 17 123/49 97 11/20/16 02:00 75 11/20/16 01:20 98 30 11/20/16 00:00 82 11/20/16 00:00 97.8 82 14 122/58 96 11/19/16 22:06 96 30 11/19/16 22:00 81 11/19/16 20:00 103.1 93 12 127/58 96 11/19/16 20:00 93 11/19/16 19:02 96 30 11/19/16 18:00 90 11/19/16 16:00 79 11/19/16 16:00 100.9 90 24 117/50 99 Intake & Output 11/20/16 11/20/16 06:59 18:59 Intake Total 1310 ml Output Total 850 ml Balance 460 ml IV Total 267 ml Tube Feeding 483 ml Other 560 ml Output Urine Total 450 ml Stool Total 400 ml # Bowel Movements 2 Physical Exam CONSTITUTIONAL/GENERAL: This is an adequately nourished patient, intubated, on CPAP; in an MICU bed. Responsiveness limited to decerebrate posturing with noxious stimuli. TUBES/LINES/DRAINS: orotracheal tube; orogastric tube; Tejeda catheter; peripheral IVs; SKIN: No jaundice, rashes. No wounds seen anteriorly. Skin temperature appropriate. Not diaphoretic. EYES: Pupils equal and round. No scleral icterus. No injection or drainage. Fundi not examined. ENT: Tongue is protuberant CARDIOVASCULAR: Regular rate and rhythm without murmurs, gallops, or rubs. No JVD RESPIRATORY/CHEST: Symmetric, unlabored respirations. Breath sounds equal bilaterally. Coarse breath sounds bilaterally. No wheezes, rales. GASTROINTESTINAL: Abdomen soft, non-tender, nondistended. No hepato-splenomegaly , or palpable masses. No guarding. Bowel sounds hypoactive. GENITOURINARY: Without palpable bladder distension. Tejeda catheter in place. MUSCULOSKELETAL: Extremities without clubbing, cyanosis, or edema. No mottling. NEUROLOGICAL: Does not awaken to loud voice or exam. Unable to follow commands. Decerebrate posturing to noxious stimuli. PSYCHIATRIC: Unable to evaluate due to level of responsiveness . Diagnostic Tests Laboratory Laboratory Tests Test 11/18/16 11/18/16 11/18/16 11/18/16 11:12 16:28 16:32 23:07 White Blood Count 11.4 TH/MM3 (4.0-11.0) Red Blood Count 2.79 MIL/MM3 (4.00-5.30) Hemoglobin 5.3 GM/DL 9.0 GM/DL (11.6-15.3) (11.6-15.3) Hematocrit 17.9 % 28.5 % (35.0-46.0) (35.0-46.0) Mean Corpuscular Volume 64.2 FL (80.0-100.0) Mean Corpuscular Hemoglobin 18.8 PG (27.0-34.0) Mean Corpuscular Hemoglobin 29.3 % Concent (32.0-36.0) Red Cell Distribution Width 21.0 % (11.6-17.2) Platelet Count 149 TH/MM3 (150-450) Mean Platelet Volume 10.0 FL (7.0-11.0) Neutrophils (%) (Auto) 74.0 % (16.0-70.0) Lymphocytes (%) (Auto) 15.2 % (9.0-44.0) Monocytes (%) (Auto) 8.1 % (0.0-8.0) Eosinophils (%) (Auto) 2.1 % (0.0-4.0) Basophils (%) (Auto) 0.6 % (0.0-2.0) Neutrophils # (Auto) 8.4 TH/MM3 (1.8-7.7) Lymphocytes # (Auto) 1.7 TH/MM3 (1.0-4.8) Monocytes # (Auto) 0.9 TH/MM3 (0-0.9) Eosinophils # (Auto) 0.2 TH/MM3 (0-0.4) Basophils # (Auto) 0.1 TH/MM3 (0-0.2) CBC Comment AUTO DIFF Differential Total Cells 100 Counted Neutrophils % (Manual) 76 % (16-70) Band Neutrophils % 9 % (0-6) Lymphocytes % 7 % (9-44) Monocytes % 4 % (0-8) Eosinophils % 1 % (0-4) Basophils % 1 % (0-2) Neutrophils # (Manual) 9.9 TH/MM3 (1.8-7.7) Myelocytes 2 % (0-0) Nucleated Red Blood Cells 3 /100 WBC (0-0) Differential Comment FINAL DIFF MANUAL Platelet Estimate LOW (NORMAL) Platelet Morphology Comment NORMAL (NORMAL) Ovalocytes 1+ (NORMAL) Blood Type O POSITIVE O POSITIVE Crossmatch Leukocyte-Reduced Red Blood Cells Blood Bank Comment Antibody Screen NEGATIVE Test 11/19/16 11/19/16 11/20/16 04:50 08:26 05:30 Sodium Level 138 MEQ/L 137 MEQ/L (136-145) (136-145) Potassium Level 4.6 MEQ/L 3.9 MEQ/L (3.5-5.1) (3.5-5.1) Chloride Level 103 MEQ/L 103 MEQ/L (98-107) (98-107) Carbon Dioxide Level 25.1 MEQ/L 26.5 MEQ/L (21.0-32.0) (21.0-32.0) Anion Gap 10 MEQ/L (5-15) 8 MEQ/L (5-15) Blood Urea Nitrogen 38 MG/DL (7-18) 50 MG/DL (7-18) Creatinine 1.29 MG/DL 1.30 MG/DL (0.50-1.00) (0.50-1.00) Estimat Glomerular Filtration 39 ML/MIN (>89) 39 ML/MIN (>89) Rate Random Glucose 232 MG/DL 212 MG/DL (74-106) (74-106) Calcium Level 7.0 MG/DL 7.0 MG/DL (8.5-10.1) (8.5-10.1) Protein Corrected Calcium 8.5 MG/DL 8.3 MG/DL (8.5-10.1) (8.5-10.1) Total Bilirubin 0.8 MG/DL 0.5 MG/DL (0.2-1.0) (0.2-1.0) Aspartate Amino Transf 63 U/L (15-37) 62 U/L (15-37) (AST/SGOT) Alanine Aminotransferase 17 U/L (10-53) 15 U/L (10-53) (ALT/SGPT) Alkaline Phosphatase 112 U/L 92 U/L (45-117) (45-117) Total Protein 4.3 GM/DL 4.7 GM/DL (6.4-8.2) (6.4-8.2) Albumin 1.5 GM/DL 1.6 GM/DL (3.4-5.0) (3.4-5.0) White Blood Count 19.2 TH/MM3 18.3 TH/MM3 (4.0-11.0) (4.0-11.0) Red Blood Count 4.03 MIL/MM3 3.16 MIL/MM3 (4.00-5.30) (4.00-5.30) Hemoglobin 9.0 GM/DL 7.4 GM/DL (11.6-15.3) (11.6-15.3) Hematocrit 29.0 % 23.0 % (35.0-46.0) (35.0-46.0) Mean Corpuscular Volume 72.0 FL 72.8 FL (80.0-100.0) (80.0-100.0) Mean Corpuscular Hemoglobin 22.3 PG 23.3 PG (27.0-34.0) (27.0-34.0) Mean Corpuscular Hemoglobin 31.0 % 31.9 % Concent (32.0-36.0) (32.0-36.0) Red Cell Distribution Width 28.1 % 29.2 % (11.6-17.2) (11.6-17.2) Platelet Count 114 TH/MM3 107 TH/MM3 (150-450) (150-450) Mean Platelet Volume 9.8 FL 9.9 FL (7.0-11.0) (7.0-11.0) Neutrophils (%) (Auto) 81.7 % 84.1 % (16.0-70.0) (16.0-70.0) Lymphocytes (%) (Auto) 8.6 % 6.1 % (9.0-44.0) (9.0-44.0) Monocytes (%) (Auto) 6.2 % (0.0-8.0) 5.7 % (0.0-8.0) Eosinophils (%) (Auto) 3.3 % (0.0-4.0) 3.8 % (0.0-4.0) Basophils (%) (Auto) 0.2 % (0.0-2.0) 0.3 % (0.0-2.0) Neutrophils # (Auto) 15.7 TH/MM3 15.4 TH/MM3 (1.8-7.7) (1.8-7.7) Lymphocytes # (Auto) 1.7 TH/MM3 1.1 TH/MM3 (1.0-4.8) (1.0-4.8) Monocytes # (Auto) 1.2 TH/MM3 1.0 TH/MM3 (0-0.9) (0-0.9) Eosinophils # (Auto) 0.6 TH/MM3 0.7 TH/MM3 (0-0.4) (0-0.4) Basophils # (Auto) 0.0 TH/MM3 0.0 TH/MM3 (0-0.2) (0-0.2) CBC Comment AUTO DIFF AUTO DIFF Differential Total Cells 100 100 Counted Neutrophils % (Manual) 68 % (16-70) 74 % (16-70) Band Neutrophils % 18 % (0-6) 15 % (0-6) Lymphocytes % 5 % (9-44) 3 % (9-44) Monocytes % 5 % (0-8) 5 % (0-8) Eosinophils % 4 % (0-4) 1 % (0-4) Neutrophils # (Manual) 16.5 TH/MM3 16.7 TH/MM3 (1.8-7.7) (1.8-7.7) Nucleated Red Blood Cells 1 /100 WBC (0-0) Differential Comment FINAL DIFF FINAL DIFF MANUAL MANUAL Platelet Estimate LOW (NORMAL) LOW (NORMAL) Platelet Morphology Comment ENLARGED NORMAL (NORMAL) (NORMAL) Ovalocytes 1+ (NORMAL) 1+ (NORMAL) Metamyelocytes 2 % (0-1) Basophilic Stippling FAINT (NORMAL) Acanthocytes OCC (NORMAL) Magnesium Level 2.9 MG/DL (1.5-2.5) Random Vancomycin Level 5.0 COMMENT Result Diagram: 11/20/16 0530 11/20/16 0530 Microbiology Microbiology Date/Time Procedure Status Source Growth 11/18/16 11:05 Aerobic Blood Culture - Preliminary Resulted Blood Peripheral NO GROWTH IN 2 DAYS 11/18/16 11:05 Anaerobic Blood Culture - Preliminary Resulted Blood Peripheral NO GROWTH IN 2 DAYS 11/18/16 11:12 Aerobic Blood Culture - Preliminary Resulted Blood Peripheral NO GROWTH IN 2 DAYS 11/18/16 11:12 Anaerobic Blood Culture - Preliminary Resulted Blood Peripheral NO GROWTH IN 2 DAYS 11/18/16 12:00 Urine Culture - Final Complete Urine Catheterized Urine Escherichia Coli Brionna Albicans 11/18/16 12:15 Gram Stain - Final Complete Sputum Endotracheal 11/18/16 12:15 Sputum Culture - Final Complete Sputum Endotracheal HEAVY GROWTH NORMAL RESPIRATORY STACY Imaging Last Impressions Chest X-Ray 11/20/16 0600 Signed Impressions: Service Date/Time: Sunday, November 20, 2016 03:43 - CONCLUSION: 1. Minimal density throughout the right lung, likely atelectasis. 2. Right mainstem bronchus at the orifice of the right mainstem bronchus and should be retracted at least 2 cm. Leonardo Yung MD Head CT 11/08/16 1657 Signed Impressions: Service Date/Time: Tuesday, November 08, 2016 17:06 - CONCLUSION: Low density seen throughout the posterior circulation regions including the susan and midbrain, cerebellar hemispheres, occipital and posterior medial temporal lobes and right thalamus. This likely represents areas of infarction involving the posterior territory circulation. Jeffery Zhong MD Carotid Artery Ultrasound 11/08/16 0000 Signed Impressions: Service Date/Time: Tuesday, November 08, 2016 22:24 - CONCLUSION: Mild calcified plaque at the carotid bulbs. No evidence of hemodynamically significant carotid stenosis. José Luis Beltran MD Procedures * Intubation/mechanical ventilation . Assessment and Plan Disease Oriented Problem List: (1) CVA (cerebral vascular accident) Comment: Very large posterior circulation stroke. No signs of neurological recovery. Prognosis grim. . . (2) Rhabdomyolysis (3) Dementia Comment: Family reports at least a 7 year history of dementia. . (4) Thrombocytopenia (5) Malnutrition Comment: Presenting albumin level was 2.8 . (6) Anemia (7) Urinary tract infection Comment: Cx of 11/08 --> E coli and Enterococcus . (8) Pneumonia Comment: Sputum cx of 11/12 growing Staph aureus. . Symptom Scale: (1) Pain 0-10 Scale: Unable to quantify Comment: Patient had no known prior pain syndromes. Current possible sources of pain include prolonged bedbound status; orotracheal intubation; vascular access catheters; Tejeda catheter. . (2) Dyspnea 0-10 Scale: Unable to quantify Comment: Dyspnea currently controlled with mechanical ventilation. . (3) Encephalopathy 0-10 Scale: Unable to quantify Comment: Patient was minimally responsive on arrival. No evidence of neurologic recovery. Off all sedation. Pertinent Non-Medical Issues Psychosocial: Normally lives with her sister. Her son lives by visits frequently. Spiritual: Patient is a [employer]. Blood products should not be given without the son's permission ---> her son DID consent to blood transfusion . Legal: No advance directives. Son would be the appropriate proxy health care decision-maker under the [place] statutes hierarchy. Ethical issues impacting care: Patient is incapacitated to make her own health care decisions and is not expected to regain such capacity . Important Contacts Wyatt Crawford (son and healthcare proxy) [phone] . Prognosis This is an 86-year-old female who was suffered a fairly massive posterior circulation stroke. This is on top of at least a seven-year history of dementia with the patient was already requiring assistance with most of her ADLs. There is a high risk of during this hospitalization. Should she survive, she will require tracheostomy to protect her airway as well as ongoing artificial nutrition. She will not have meaningful interaction with her environment. The patient would certainly be eligible for hospice services at such time that family believes the patient's goals would best be honored by transitioning to "comfort measures only." . Code Status: Full Code Plan == Code Status: The patient's son tells me he would like the patient to remain "full code" at this time. == Decision-making: The patient lacks capacity for decision-making, and she will not regain capacity. The patient is a and has only one adult child. Thus, under [place] statutes, her son, Wyatt Crawford, is the legal health care proxy. == Goals of medical treatment: The patient is a [employer]. No blood products should be given without the son's permission; he DID consent to transfusion on 11/18/16. The son says he believes in miracles. He has wanted to do everything to keep his mother alive for the time being including resuscitation efforts. He understands that a decision about trach/fci versus transition to comfort and withdrawal of life support to allow natural MUST BE MADE SOON ---> he agrees to speak with me again in 2 days after he has had a chance to speak with other friends and family, and will give me a final answer then. == Pain: Patient is off all analgesics. Only responsiveness is decerebrate posturing to noxious stimuli. Nursing pain levels consistently "0." No further recommendations at this time. == Dyspnea: Currently controlled with mechanical ventilation. Tolerating CPAP. Even if she becomes able to ventilate herself, she will need tracheostomy as she cannot protect her airway. Awaiting the decision of the son.... == Encephalopathy: Patient's current mental status is due to a combination of her devastating stroke and underlying dementia. Meaningful improvement would likely require a miracle. No further recommendations at this time. == Fever: Infection vs injury to thermostat. On antibiotics. Now has MSSA pneumonia and UTI with E coli + enterococcus. == Palliative care will continue to follow to assist with symptom management and to help clarify goals of medical treatment as the clinical course evolves. . Time Spent Total Floor Time (mins): 44 Face to Face Time (mins): 33 >50% Counseling/Coord of Care: Yes (d/w Dr. Gil) Attestation To help prompt me to consider important information that might be impacting today's encounter and assessment, information from prior notes written by myself or my colleagues may have been "brought forward" into today's note. My signature on this note, however, is an attestation that I personally performed the exam, history, and/or decision-making noted today, and, unless otherwise indicated, the interactions with patient, family, and staff as well as the review of records all occurred today. I also attest that the listed assessment and stated plan reflect my best clinical judgment today based on the combination of historical information, prior notes, and today's exam/ interactions. When time spent is documented, it refers only to time spent today by the signer, or if indicated, combined time spent today by collaborating physician/nurse practitioner. Bailey Garay MD Nov 20, 2016 16:13
[2016-11-20 19:48] LABS: C. DIFF EPI 027 PRESUMPTIVE NEGATIVE (NEGATIVE); C. DIFF TOXIN PCR NEGATIVE (NEGATIVE)
[2016-11-20] MEDS ORDERED: LORazepam 2 MG/ML VIAL IV PUSH ONE (21:15)
[2016-11-20] MEDS ORDERED: HALOPERIDOL LACTATE 5 MG/ML AMP IV PUSH ONE (21:15)
[2016-11-20] MEDS ORDERED: diphenhydrAMINE HCL 50 MG/ML VIAL IV PUSH ONE (21:15)
[2016-11-21] VITALS (20 sets, daily range): BP systolic 94–118; BP diastolic 48–58; PULSE 77–97; RESP 20–33; TEMP 98.9–101.5; O2SAT 92–100
[2016-11-21] MEDS: HIGH DOSE INSULIN NOVOLIN REGULAR SUPPLEMENTAL SCALE SQ SCH ×6 (01:30→21:41)
[2016-11-21] MEDS: CHLORHEXIDINE GLUCONATE 2 % 1 PACK (2 CLOTHS) TOP SCH (03:00)
[2016-11-21] MEDS: ACETAMINOPHEN 650 MG/20.3 ML UDC OG-TUBE PRN (04:43)
[2016-11-21] MEDS: CEFEPIME INJ 2,000 MG in SODIUM CHLORIDE 0.9% INJ 100 ML IV SCH (04:43)
[2016-11-21] MEDS: FREE WATER G-TUBE SCH ×4 (06:00→17:15)
[2016-11-21] MEDS: CHLORHEXIDINE 0.12% (ORAL KIT) 15 ML CUP MT SCH ×2 (08:59→21:40)
[2016-11-21] MEDS: DOCUSATE SODIUM 100 MG/10 ML UDC G-TUBE SCH ×2 (09:00→21:40)
[2016-11-21] MEDS: HEPARIN SODIUM - SQ 10,000 UNITS/ML VIAL SQ SCH ×2 (09:00→21:40)
[2016-11-21] MEDS: FERROUS SULFATE 300 MG /5ML UDC PO SCH ×2 (09:00→21:40)
[2016-11-21] MEDS: PANTOPRAZOLE SODIUM 40 MG VIAL IV SCH (09:01)
[2016-11-21] MEDS: ARTIFICIAL TEARS OPTH SOLN 15 ML BTL EACH EYE SCH ×3 (09:03→17:15)
[2016-11-21] MEDS: SODIUM CHLORIDE 0.9% FLUSH 5 ML FLUSH IV FLUSH SCH (09:03)
[2016-11-21] MEDS ORDERED: VANCOMYCIN 1,000 MG/NS 250 ML IV ONE ×2 (10:00)
--- NOTE | 2016-11-21 10:45 | RADRPT ---
EXAM DATE/TIME: 11/21/2016 10:07 [facility] COMPARISON: CHEST SINGLE AP, November 20, 2016, 3:43. INDICATIONS : Difficulty breathing. Respiratory disease per order. MEDICAL HISTORY : CVA. SURGICAL HISTORY : None. ENCOUNTER: Subsequent ACUITY: 2 days PAIN SCORE: Non-responsive. LOCATION: Bilateral chest FINDINGS: Single AP view of the chest. Endotracheal tube is in place with the tip 1.5 cm above the kraig. Naso gastric tube remains in place. Persistent bilateral pulmonary opacity right greater than left. Decrea se in severity of right upper lung zone opacity is noted. No evidence of pneumothorax. Cardiomediasti nal silhouette unchanged. CONCLUSION: 1. Endotracheal tube tip now 1.5 cm above the kraig. 2. Right greater than left pulmonary parenchymal opacity again seen. The opacity in the right upper l jorden zone is less prominent than on the comparison study. José Luis Beltran MD on November 21, 2016 at 10:41 Board Certified Radiologist. This report was verified electronically.
--- NOTE | 2016-11-21 11:54 | HHI.CCPN ---
Subjective Remarks/Hospital Course This is an 86yF with per report no other past medical history who presented to the ER after she was found unresponsive in her bed. According to ER reports, her family saw her normal last night when she had a fall, with unknown LOC. At that point, he helped her back to bed. However, this morning she did not wake up. On arrival to the ER, she was unresponsive only withdrawing to pain. she was intubated for airway protection and a poor GCS. CT head demonstrated massive posterior-circulation ischemic stroke. The patient is currently intubated and unresponsive and cannot provide any additional history. 11/09: No acute changes overnight. Palliative care team has consult with the family regarding goals of care. Currently the patient's sedation fentanyl infusion has been turned off without any response from patient. The patient notably does withdrawal to pain. 11/10: No change in neurological status. [id number]. The patient withdraws to pain 4 extremities. The patient currently on no sedation, fentanyl infusion discontinued yesterday. Tube feeds were initiated. The patient's urine culture grew back Escherichia coli, the patient was started on antibiotics. Extensive discussion with son regarding patient's neurological status, son Wyatt has had extensive discussion with palliative care.The son feels that yesterday when the patient was spoken to in [place] the patient squeezed his hand and desires aggressive treatment. The patient's neuro status is unchanged, totally unresponsive with occasional reflexive twitching of feet B/L. Follow-up with neurology Dr. Pack, guarding any further imaging studies. 11/13: No change in neuro exam. Palliative care following. Family wanting full aggressive care. Palliative care will address early trach PEG 11/14: No improvement in neuro status. Son has not made decisions regarding trach and PEG. Apparently he wants to wait longer to see any improvement 11/15: Remains unresponsive. Neuro exam with extensor posturing-unchanged. Son requesting aggressive care. Continues to have low-grade fever 11/16: Clinically no improvement. Tolerates CPAP. Unable to extubate as patient will not protect airway 11/17: Tolerating C Pap but no change in neuro exam. Hemoglobin noted to be 6.8 hemodynamically stable 11/18: Became tachycardic and hypotensive early a.m., placed on assist control. Otherwise neuro exam remains unchanged 11/19: Continues to spike fever Tmax 102, started on vancomycin and cefepime in addition to Levaquin yesterday. Currently only low-grade fever. Received 2 units of blood for hemoglobin of 5.3. CBC pending at this time. No improvement in neuro exam 11/20: White count is 18.3 today, MAXIMUM TEMPERATURE 103.1. Chest x-ray showing right sided infiltrate. Urine culture with gram-negative rods and Lizet albicans. ID consulted Diflucan added 11/21/16: Tmax 101.5. Bilateral lung infiltrates, R>L but slightly improved. No improvement in neuro exam. ID consulted and following. Objective Vital Signs Date Time Temp Pulse Resp B/P Pulse Ox O2 Delivery O2 Flow Rate FiO2 11/21/16 11:07 99 35 11/21/16 06:00 81 11/21/16 04:00 101.0 22 118/58 Intake and Output 11/20/16 11/20/16 11/21/16 08:00 16:00 00:00 Intake Total 939 ml 1108 ml 663 ml Output Total 700 ml 650 ml 450 ml Balance 239 ml 458 ml 213 ml Result Diagram: 11/20/16 0530 11/21/16 0421 Other Results Microbiology Date/Time Procedure Status Source Growth 11/18/16 12:00 Urine Culture - Final Complete Urine Catheterized Urine Escherichia Coli Lizet Albicans 11/18/16 12:15 Gram Stain - Final Complete Sputum Endotracheal 11/18/16 12:15 Sputum Culture - Final Complete Sputum Endotracheal HEAVY GROWTH NORMAL RESPIRATORY STACY Imaging Last [address] 11/08/161656 Signed Impressions: Service Date/Time: Tuesday, November 08, 2016 17:06 - CONCLUSION: Low density seen throughout the posterior circulation regions including the susan and midbrain, cerebellar hemispheres, occipital and posterior medial temporal lobes and right thalamus. This likely represents areas of infarction involving the posterior territory circulation. Jeffery Zhong MD Chest X-Ray 11/08/161656 Signed Impressions: Service Date/Time: Tuesday, November 08, 2016 17:12 - CONCLUSION: Endotracheal tube is at the kraig and needs to be withdrawn at least 2 cm. Satisfactory position of nasogastric tube. No evidence of significant airspace disease or congestion. Hill Sequeira MD Objective Remarks GENERAL: Elderly female, lying in bed, intubated, unresponsive, critically ill. HEENT: pupils 3mm, equal, reactive. normocephalic. atraumatic. Mucous membranes moist. NECK: Orotracheally intubated. No JVD. Trachea midline. CHEST: Equal chest rise. Coarse breath sounds bilaterally CARDIOVASCULAR: Normal rate, regular rhythm. No appreciable murmurs. ABDOMEN: Soft, nontender, nondistended. No guarding. MUSCULOSKELETAL: No peripheral edema. Distal pulses 2+. NEUROLOGICAL: Positive corneal reflex. LIDYA. Negative cough. Negative gag. Extensor posturing in uppers. Downgoing Babinski. 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 She was last seen normal, nearly 24 hours, she was not a candidate for any interventional therapy. Unfortunately, given her age, and the extent of the stroke, her prognosis for any reasonable neurologic function is quite poor, and I do not think that we will be able to improve her outcome at all. Her family expressed wishes for a short course of aggressive medical management. Active problems: Massive posterior circulation ischemic CVA Hypoxic and hypercarbic respiratory failure Severe encephalopathy secondary to stroke Severe sepsis Right sided infiltrate/ HCAP UTI Anemia-acute and chronic Hyperglycemia of critical illness Thrombocytopenia Plan Neuro: Every hour neuro checks. No sedatives given for > week now --Remains unresponsive, extensor posturing to painful stimuli --There is no clinical improvement and patient's chance of meaningful recovery is very minimal --Son wants to continue aggressive care --Follow-up neurology recommendations-Dr. Pack, per his evaluation prognosis no meaningful recovery Resp: Vent bundle, Head of bed 30, when necessary nebs Wean FiO2 for goal SPO2 greater than 90% --Need trach and PEG to continue aggressive care-son has not consented yet, paralytic and is discussing this issue --See ID for possible HCAP treatment --CT chest to evaluate for abscess/effusion due to continued fever CVS: Goal systolic blood pressure less than 180. Use nicardipine, PRN labetalol and hydralazine as needed 2-D echo -EF 5560 %, mild aortic mitral and tricuspid regurgitation, No RWMA. Carotid ultrasound-no stenosis GI: -Tolerating tube feeding, Having BMs : -Monitor urine output, monitor BUN/creatinine ID: -Continue cefepime, vancomycin and Levaquin to cover for new onset fever, Diflucan for lizet UTI -Was Levaquin for and also MSSA pneumonia, UTI with Escherichia coli, enterococcus faecalis (All 3 organisms S to quinolones) -Urine culture 11/18/16 with Lizet albicans and E coli NOT S Levaquin, but S to cefepime -Infectious disease Dr. Wen -CT chest to evaluate infiltrate/effusion Endo: --Medium dose sliding scale regimen-Continue to monitor Proph: Subcutaneous heparin on hold secondary to thrombocytopenia, anemia. Platelet count is improved however hemoglobin 5.3 SCDs for DVT prophylaxis Protonix for GI prophylaxis Dispo: --To continue care, will need to proceed with trach/PEG sooner than later. Vent day 13 (intubated on 11/08/16) Dispo: Palliative care medicine is following extensive discussion with the patient's son, Wyatt Crawford-plan is to continue aggressive treatment. Son has not decided up on tracheostomy and PEG placement. He stated that he did not want his mother to remain in the vegetative state. Per Dr. Castro's note 11/19 son wants aggressive care, including 'experimental' therapy CCT 35 min Melchor Gil MD Nov 21, 2016 11:54
[2016-11-21] MEDS ORDERED: PHARMACY ORDERED LAB XX ONE (12:45)
[2016-11-21] MEDS: FLUCONAZOLE 100 MG PREMIX BAG 50 ML IV SCH (13:42)
--- NOTE | 2016-11-21 14:26 | HHI.IDPN ---
Subjective Subjective Remarks remains on vent cont to have fever up to 101.4 Antibiotics cefepime levaquin vancomycin fluconazole Allergies: Coded Allergies: No Known Allergies (Unverified , 11/08/16) Objective . Vital Signs Date Time Temp Pulse Resp B/P Pulse Ox O2 Delivery O2 Flow Rate FiO2 11/21/16 11:07 99 35 11/21/16 08:15 94 30 11/21/16 06:00 81 11/21/16 04:14 94 30 11/21/16 04:00 101.0 85 22 118/58 94 11/21/16 04:00 30 11/21/16 04:00 83 11/21/16 02:00 89 11/21/16 01:15 94 30 11/21/16 00:00 30 11/21/16 00:00 101.5 86 24 113/53 96 11/21/16 00:00 91 11/20/16 22:02 93 30 11/20/16 22:00 87 11/20/16 20:00 101.3 87 12 113/56 94 11/20/16 20:00 89 11/20/16 20:00 30 11/20/16 19:02 100 30 11/20/16 18:00 91 11/20/16 16:00 89 11/20/16 16:00 35 11/20/16 16:00 100.4 89 12 111/55 95 11/20/16 15:55 96 30 11/20/16 11/20/16 11/21/16 15:00 23:00 07:00 Intake Total 1108 ml 663 ml 0 ml Output Total 650 ml 450 ml 800 ml Balance 458 ml 213 ml -800 ml Intake Oral 0 ml IV Total 415 ml 30 ml Tube Feeding 393 ml 633 ml Other 300 ml Output Urine Total 400 ml 250 ml 800 ml Stool Total 250 ml 200 ml . Laboratory Tests Test 11/20/16 05:30 White Blood Count 18.3 TH/MM3 Red Blood Count 3.16 MIL/MM3 Hemoglobin 7.4 GM/DL Hematocrit 23.0 % Mean Corpuscular Volume 72.8 FL Mean Corpuscular Hemoglobin 23.3 PG Mean Corpuscular Hemoglobin 31.9 % Concent Red Cell Distribution Width 29.2 % Platelet Count 107 TH/MM3 Mean Platelet Volume 9.9 FL Neutrophils (%) (Auto) 84.1 % Lymphocytes (%) (Auto) 6.1 % Monocytes (%) (Auto) 5.7 % Eosinophils (%) (Auto) 3.8 % Basophils (%) (Auto) 0.3 % Neutrophils # (Auto) 15.4 TH/MM3 Lymphocytes # (Auto) 1.1 TH/MM3 Monocytes # (Auto) 1.0 TH/MM3 Eosinophils # (Auto) 0.7 TH/MM3 Basophils # (Auto) 0.0 TH/MM3 CBC Comment AUTO DIFF Differential Total Cells 100 Counted Neutrophils % (Manual) 74 % Band Neutrophils % 15 % Lymphocytes % 3 % Monocytes % 5 % Eosinophils % 1 % Neutrophils # (Manual) 16.7 TH/MM3 Metamyelocytes 2 % Differential Comment FINAL DIFF MANUAL Platelet Estimate LOW Platelet Morphology Comment NORMAL Basophilic Stippling FAINT Ovalocytes 1+ Acanthocytes OCC Laboratory Tests Test 11/20/16 11/21/16 05:30 04:21 Sodium Level 137 MEQ/L Potassium Level 3.9 MEQ/L Chloride Level 103 MEQ/L Carbon Dioxide Level 26.5 MEQ/L Anion Gap 8 MEQ/L Blood Urea Nitrogen 50 MG/DL Creatinine 1.30 MG/DL 1.33 MG/DL Estimat Glomerular Filtration 39 ML/MIN 38 ML/MIN Rate Random Glucose 212 MG/DL Calcium Level 7.0 MG/DL Protein Corrected Calcium 8.3 MG/DL Magnesium Level 2.9 MG/DL Total Bilirubin 0.5 MG/DL Aspartate Amino Transf 62 U/L (AST/SGOT) Alanine Aminotransferase 15 U/L (ALT/SGPT) Alkaline Phosphatase 92 U/L Total Protein 4.7 GM/DL Albumin 1.6 GM/DL Imaging Last Impressions Chest X-Ray 11/21/16 0000 Signed Impressions: Service Date/Time: Monday, November 21, 2016 10:07 - CONCLUSION: 1. Endotracheal tube tip now 1.5 cm above the kraig. 2. Right greater than left pulmonary parenchymal opacity again seen. The opacity in the right upper lung zone is less prominent than on the comparison study. José Luis Beltran MD Head CT 11/08/16 4087 Signed Impressions: Service Date/Time: Tuesday, November 08, 2016 17:06 - CONCLUSION: Low density seen throughout the posterior circulation regions including the susan and midbrain, cerebellar hemispheres, occipital and posterior medial temporal lobes and right thalamus. This likely represents areas of infarction involving the posterior territory circulation. Jeffery Zhong MD Carotid Artery Ultrasound 11/08/16 0000 Signed Impressions: Service Date/Time: Tuesday, November 08, 2016 22:24 - CONCLUSION: Mild calcified plaque at the carotid bulbs. No evidence of hemodynamically significant carotid stenosis. José Luis Beltran MD Physical Exam CONSTITUTIONAL/GENERAL: This is a thin elderly frail patient, in no apparent distress. Intubated, on vent TUBES/LINES/DRAINS: SKIN: No jaundice, rashes, or lesions. Skin temperature appropriate. Not diaphoretic. EYES: No scleral icterus. No injection or drainage. Fundi not examined. ENT: Protruding tongue, drooling Orally intubated CARDIOVASCULAR: Regular rate and rhythm without murmurs, gallops, or rubs. No JVD. Peripheral pulses symmetric. RESPIRATORY/CHEST: Symmetric, unlabored respirations. Scattered rhonchi to auscultation. Breath sounds equal bilaterally. GASTROINTESTINAL: Abdomen soft, no reaction to palpation, moderately distended. No hepato-splenomegaly, or palpable masses. No guarding. Bowel sounds present. Large amount of dark stool in fecal collection sytem GENITOURINARY: Without palpable bladder distension. Tejeda catheter in place with clear yellow urine MUSCULOSKELETAL: Extremities without clubbing, cyanosis, +2 -3 soft pitting edema more prominent on BUE. No joint tenderness or effusion noted. No mottling NEUROLOGICAL: unresponsive PSYCHIATRIC: Unable to assess Assessment & Plan Remarks Massive posterior circulation ischemic CVA with severe neuro deficits Severe encephalopathy secondary to stroke Acute VDRF tolerating CPAP Severe sepsis: source Persistnt fever : ? source Right sided infiltrate/ HCAP/ ? aspiration PNA Bacteriuria vs recurrent UTI Funguria, C.albicans Diarrhea, C.diff negative - start zosyn - dc levaquine, cefepime fu blood clx - abx adjustment per clx results - cont vancomycin for now - repeat blood clx -cont fluconazole Shani Wen MD Nov 21, 2016 14:26
[2016-11-21] MEDS ORDERED: FLUCONAZOLE 100 MG PREMIX BAG 50 ML IV ONE (15:45)
[2016-11-21] MEDS: PIPERACIL-TAZO 3.375 GM PREMIX 50 ML IV SCH ×2 (17:14→21:39)
--- NOTE | 2016-11-21 23:53 | RADRPT ---
EXAM DATE/TIME: 11/21/2016 22:57 [facility] COMPARISON: No previous studies available for comparison. INDICATIONS : Pulmonary effusion vs infiltrate vs abscess RADIATION DOSE: 5.13 CTDIvol (mGy) MEDICAL HISTORY : Non-responsive. SURGICAL HISTORY : Non-responsive. ENCOUNTER: Initial ACUITY: 1 day PAIN SCALE: Non-responsive LOCATION: Bilateral chest TECHNIQUE: Volumetric scanning of the chest was performed. Using automated exposure control and adjustment of t he mA and/or kV according to patient size, radiation dose was kept as low as reasonably achievable to obtain optimal diagnostic quality images. FINDINGS: There is a moderate size right pleural effusion which has increased in size of the last day when comp arison is made with recent other chest radiographs. Small left pleural effusion present. There is mul tifocal consolidation in both lungs, slightly worse on the left with areas of groundglass opacity and air bronchograms. Endotracheal tube tip is in satisfactory position. NG enters stomach. Severe coronary calcifications. No acute bony abnormality. Calcified mediastinal lymph nodes. CONCLUSION: 1. Moderate size right pleural effusion and small left pleural effusion. Right effusion has increased over the last day compared with a recent chest radiograph. 2. Bilateral lung consolidation as above. Differential diagnosis includes pneumonia and aspiration. Emeterio Freire MD on November 21, 2016 at 23:46 Board Certified Radiologist. This report was verified electronically.
[2016-11-22] VITALS (19 sets, daily range): BP systolic 70–115; BP diastolic 40–58; PULSE 65–91; RESP 13–20; TEMP 98.4–99.6; O2SAT 90–100
[2016-11-22] MEDS ORDERED: CEFEPIME INJ 2,000 MG in SODIUM CHLORIDE 0.9% INJ 100 ML IV SCH (05:00)
[2016-11-22] MEDS: HIGH DOSE INSULIN NOVOLIN REGULAR SUPPLEMENTAL SCALE SQ SCH ×6 (05:10→20:00)
[2016-11-22] MEDS: PIPERACIL-TAZO 3.375 GM PREMIX 50 ML IV SCH ×4 (05:10→22:11)
[2016-11-22 05:22] LABS: AUTOMATED NEUTROPHIL # 12.2 TH/MM3 (1.8-7.7); BASOPHIL # 0.1 TH/MM3 (0-0.2); BASOPHIL % 0.4 % (0.0-2.0); EOSINOPHIL # 0.7 TH/MM3 (0-0.4); EOSINOPHIL % 4.4 % (0.0-4.0); HEMATOCRIT 21.7 % (35.0-46.0); LYMPHOCYTE # 0.9 TH/MM3 (1.0-4.8); MEAN CELL VOLUME 76.7 FL (80.0-100.0); MEAN CORPUSCULAR HEMOGLOBIN 23.3 PG (27.0-34.0); MEAN CORPUSCULAR HGB CONC 30.4 % (32.0-36.0); MONO % 6.6 % (0.0-8.0); NEUT % 82.6 % (16.0-70.0); PLATELET COUNT 106 TH/MM3 (150-450); RED BLOOD COUNT 2.83 MIL/MM3 (4.00-5.30); RED CELL DISTRIBUTION WIDTH 30.5 % (11.6-17.2); WHITE BLOOD COUNT 14.7 TH/MM3 (4.0-11.0)
[2016-11-22 05:35] LABS: BICARBONATE 24.8 MEQ/L (21.0-32.0); CALCIUM-PROTEIN CORRECTED 8.7 MG/DL (8.5-10.1); MAGNESIUM 3.2 MG/DL (1.5-2.5); POTASSIUM 4.1 MEQ/L (3.5-5.1); TOTAL BILIRUBIN ADULT 0.6 MG/DL (0.2-1.0)
[2016-11-22] MEDS: FREE WATER G-TUBE SCH ×4 (06:00→18:00)
[2016-11-22] MEDS: EPOETIN ALFA 10,000 UNITS/ML VIAL SQ SCH (06:08)
[2016-11-22 06:11] LABS: HEMO FLAGS AUTO DIFF
--- NOTE | 2016-11-22 06:26 | RADRPT ---
EXAM DATE/TIME: 11/22/2016 04:27 [facility] COMPARISON: CHEST SINGLE AP, November 21, 2016, 10:07. INDICATIONS : Shortness of breath. MEDICAL HISTORY : Non-responsive SURGICAL HISTORY : Non-responsive ENCOUNTER: Subsequent ACUITY: 2 weeks PAIN SCORE: Non-responsive. LOCATION: Bilateral chest FINDINGS: A single view of the chest demonstrates endotracheal tube tip in satisfactory position. NG enters sto mach. Bilateral airspace consolidation increased from November 21. Bilateral pleural effusions probably also increased. CONCLUSION: 1. Increasing airspace disease and pleural effusions bilaterally compared with November 21. Endotracheal tube and nasogastric tube remain present. Emeterio Freire MD on November 22, 2016 at 6:24 Board Certified Radiologist. This report was verified electronically.
[2016-11-22 07:05] LABS: BANDS 15 % (0-6); EOSINOPHILS 3 % (0-4); NEUTROPHIL # MANUAL DIFF 13.1 TH/MM3 (1.8-7.7); PLATELET ESTIMATE SMEAR LOW (NORMAL); PLATELET MORPHOLOGY NORMAL (NORMAL); POLYCHROMASIA 3.3 % (0.0-1.9); POLYS (SEG NEUTROPHILS) 74 % (16-70); WBC DIFF SAMPLE 100
[2016-11-22 07:06] LABS: OVALOCYTES 1+ (NORMAL); SCAN/DIFF FINAL DIFF MANUAL
[2016-11-22] MEDS: CHLORHEXIDINE 0.12% (ORAL KIT) 15 ML CUP MT SCH ×2 (09:03→20:47)
[2016-11-22] MEDS: PANTOPRAZOLE SODIUM 40 MG VIAL IV SCH (09:04)
[2016-11-22] MEDS: DOCUSATE SODIUM 100 MG/10 ML UDC G-TUBE SCH ×2 (09:04→20:47)
[2016-11-22] MEDS: FERROUS SULFATE 300 MG /5ML UDC PO SCH ×2 (09:04→20:47)
[2016-11-22] MEDS: HEPARIN SODIUM - SQ 10,000 UNITS/ML VIAL SQ SCH ×2 (09:05→20:48)
[2016-11-22] MEDS: SODIUM CHLORIDE 0.9% FLUSH 5 ML FLUSH IV FLUSH SCH ×2 (09:07→20:47)
[2016-11-22] MEDS: ARTIFICIAL TEARS OPTH SOLN 15 ML BTL EACH EYE SCH ×3 (09:07→18:00)
--- NOTE | 2016-11-22 11:53 | HHI.CCPN ---
Subjective Remarks/Hospital Course This is an 86yF with per report no other past medical history who presented to the ER after she was found unresponsive in her bed. According to ER reports, her family saw her normal last night when she had a fall, with unknown LOC. At that point, he helped her back to bed. However, this morning she did not wake up. On arrival to the ER, she was unresponsive only withdrawing to pain. she was intubated for airway protection and a poor GCS. CT head demonstrated massive posterior-circulation ischemic stroke. The patient is currently intubated and unresponsive and cannot provide any additional history. 11/09: No acute changes overnight. Palliative care team has consult with the family regarding goals of care. Currently the patient's sedation fentanyl infusion has been turned off without any response from patient. The patient notably does withdrawal to pain. 11/10: No change in neurological status. [id number]. The patient withdraws to pain 4 extremities. The patient currently on no sedation, fentanyl infusion discontinued yesterday. Tube feeds were initiated. The patient's urine culture grew back Escherichia coli, the patient was started on antibiotics. Extensive discussion with son regarding patient's neurological status, son Wyatt has had extensive discussion with palliative care.The son feels that yesterday when the patient was spoken to in Hebrew the patient squeezed his hand and desires aggressive treatment. The patient's neuro status is unchanged, totally unresponsive with occasional reflexive twitching of feet B/L. Follow-up with neurology Dr. Pack, guarding any further imaging studies. 11/13: No change in neuro exam. Palliative care following. Family wanting full aggressive care. Palliative care will address early trach PEG 11/14: No improvement in neuro status. Son has not made decisions regarding trach and PEG. Apparently he wants to wait longer to see any improvement 11/15: Remains unresponsive. Neuro exam with extensor posturing-unchanged. Son requesting aggressive care. Continues to have low-grade fever 11/16: Clinically no improvement. Tolerates CPAP. Unable to extubate as patient will not protect airway 11/17: Tolerating C Pap but no change in neuro exam. Hemoglobin noted to be 6.8 hemodynamically stable 11/18: Became tachycardic and hypotensive early a.m., placed on assist control. Otherwise neuro exam remains unchanged 11/19: Continues to spike fever Tmax 102, started on vancomycin and cefepime in addition to Levaquin yesterday. Currently only low-grade fever. Received 2 units of blood for hemoglobin of 5.3. CBC pending at this time. No improvement in neuro exam 11/20: White count is 18.3 today, MAXIMUM TEMPERATURE 103.1. Chest x-ray showing right sided infiltrate. Urine culture with gram-negative rods and Lizet albicans. ID consulted Diflucan added 11/21/16: Tmax 101.5. Bilateral lung infiltrates, R>L but slightly improved. No improvement in neuro exam. ID consulted and following. 11/22/16: No fever. CT chest- moderate to large R pleural effusion, bilateral lung infiltrates. ABX per ID. CXR today shows increasing bilateral infiltrates and effusion right more than left. Almost near complete infiltrates on the right lung [place]. Vaginally worsening creatinine today 1.45 indicating multiorgan failure Objective Vital Signs Date Time Temp Pulse Resp B/P Pulse Ox O2 Delivery O2 Flow Rate FiO2 11/22/16 11:05 93 30 11/22/16 10:00 79 11/22/16 08:00 99.5 15 100/49 Intake and Output 11/21/16 11/21/16 11/22/16 08:00 16:00 00:00 Intake Total 0 ml 776 ml 386 ml Output Total 800 ml 500 ml 250 ml Balance -800 ml 276 ml 136 ml Result Diagram: 11/22/16 0434 11/22/16 0434 Imaging Last [address] 11/08/161656 Signed Impressions: Service Date/Time: Tuesday, November 08, 2016 17:06 - CONCLUSION: Low density seen throughout the posterior circulation regions including the susan and midbrain, cerebellar hemispheres, occipital and posterior medial temporal lobes and right thalamus. This likely represents areas of infarction involving the posterior territory circulation. Jeffery Zhong MD Chest X-Ray 11/08/161656 Signed Impressions: Service Date/Time: Tuesday, November 08, 2016 17:12 - CONCLUSION: Endotracheal tube is at the kraig and needs to be withdrawn at least 2 cm. Satisfactory position of nasogastric tube. No evidence of significant airspace disease or congestion. Hill Sequeira MD Objective Remarks GENERAL: Elderly female, lying in bed, intubated, unresponsive, critically ill. HEENT: pupils 3mm, equal, reactive. normocephalic. atraumatic. Mucous membranes moist. NECK: Orotracheally intubated. No JVD. Trachea midline. CHEST: Equal chest rise. Coarse breath sounds bilaterally, diminished air entry R base CARDIOVASCULAR: Normal rate, regular rhythm. No appreciable murmurs. ABDOMEN: Soft, nontender, nondistended. No guarding. MUSCULOSKELETAL: No peripheral edema. Distal pulses 2+. NEUROLOGICAL: Positive corneal reflex. LIDYA. Negative cough. Negative gag. Extensor posturing in uppers. Downgoing Babinski. 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 She was last seen normal, nearly 24 hours, she was not a candidate for any interventional therapy. Unfortunately, given her age, and the extent of the stroke, her prognosis for any reasonable neurologic function is quite poor, and I do not think that we will be able to improve her outcome at all. Her family expressed wishes for a short course of aggressive medical management. Active problems: Massive posterior circulation ischemic CVA Hypoxic and hypercarbic respiratory failure Severe encephalopathy secondary to stroke Severe sepsis Healthcare associated pneumonia with pleural effusion Acute kidney injury UTI Anemia-acute and chronic Hyperglycemia of critical illness Thrombocytopenia Plan Neuro: Every hour neuro checks. No sedatives given for > week now --Remains unresponsive, extensor posturing to painful stimuli --There is no clinical improvement and patient's chance of meaningful recovery is very minimal, now developing multiorgan failure --Son wants to continue aggressive care --Follow-up neurology recommendations-Dr. Pack, per his evaluation prognosis no meaningful recovery Resp: Vent bundle, Head of bed 30, when necessary nebs Wean FiO2 for goal SPO2 greater than 90% --Need trach and PEG to continue aggressive care-son has not consented yet, paralytic and is discussing this issue --See ID for HCAP treatment --CT chest to evaluate for abscess/effusion due to continued fever-shows moderate to large right sided effusion and bilateral lung infiltrates CVS: Goal systolic blood pressure less than 180. Use nicardipine, PRN labetalol and hydralazine as needed 2-D echo -EF 5560 %, mild aortic mitral and tricuspid regurgitation, No RWMA. Carotid ultrasound-no stenosis GI: -Tolerating tube feeding, Having BMs : -Monitor urine output, monitor BUN/creatinine ID: -Continue Zosyn, vancomycin for HCAP and and Diflucan for lizet UTI -Was Levaquin for and also MSSA pneumonia, UTI with Escherichia coli, enterococcus faecalis (All 3 organisms S to quinolones) -Urine culture 11/18/16 with Lizet albicans and E coli NOT S Levaquin, but S to cefepime -Infectious disease Dr. Wen -CT chest moderate to large right effusion Endo: --Medium dose sliding scale regimen-Continue to monitor Proph: Subcutaneous heparin on hold secondary to thrombocytopenia, anemia. Platelet count is improved however hemoglobin 5.3 SCDs for DVT prophylaxis Protonix for GI prophylaxis Dispo: --To continue care, will need to proceed with trach/PEG sooner than later. Vent day 13 (intubated on 11/08/16) Dispo: Palliative care medicine is following extensive discussion with the patient's son, Wyatt Crawford-plan is to continue aggressive treatment. Son has not decided up on tracheostomy and PEG placement. He stated that he did not want his mother to remain in the vegetative state. Per Dr. Castro's note 11/19 son wants aggressive care, including 'experimental' therapy 11/22 Dr. Garay meeting with son again today CCT 35 min Melchor Gil MD Nov 22, 2016 11:53
--- NOTE | 2016-11-22 12:34 | HHI.HCPN ---
Reason for visit a. To assist with evaluation and management of symptoms including: pain; dyspnea; encephalopathy b. To assist medical decision maker(s) with: better understanding of current medical conditions; weighing benefits/burdens of medical treatment options; making medical treatment decisions. . Subjective/Interval History 86 y/o female with devastating posterior circulation stroke remains intubated, minimally responsive in an MICU bed. She has been off all sedation for several days. At time of my visit, responsiveness remains limited to decerebrate (extensor) posturing to noxious stimulus. No significant change. She has been on CPAP for 3 days now, but unable to protect airway so she will require tracheostomy if aggressive care is desired. No signs of discomfort. Renal function worsening, now creatinine 1.45. Hemoglobin now down to 6.6. The patient's son has made a decision, see below. . . Family/friend interactions Lengthy discussion with the patient's son Wyatt again last evening and today by telephone. He reports that he has spoken with the patient's sister and with a niece, and that they have decided to go ahead with the trach/PEG and probable transfer to long-term nursing care. He understands that the patient is still dying, that will likely come within weeks, and that other complications will occur. Dr. Gil reports that the patient will need a thoracentesis prior to the trach that he will set up for tomorrow. . Advance Directives Living Will: Never completed Health Care Surrogate: Never completed Durable Power of Independent Marketing Consultant: Never completed Advance Directive Specifics Date completed: Advance directives were never completed . Health Care Surrogate(s): There is no known written designation of health care surrogate . Documented care wishes: There is no written documentation of health care goals/preferences. . Objective Vital Signs Date Time Temp Pulse Resp B/P Pulse Ox O2 Delivery O2 Flow Rate FiO2 11/22/16 12:00 30 11/22/16 12:00 99.1 78 13 96/47 94 11/22/16 12:00 78 11/22/16 11:05 93 30 11/22/16 10:00 79 11/22/16 08:13 93 30 11/22/16 08:00 30 11/22/16 08:00 99.5 79 15 100/49 93 11/22/16 08:00 79 11/22/16 06:00 76 11/22/16 04:23 94 30 11/22/16 04:00 30 11/22/16 04:00 79 11/22/16 04:00 99.5 85 20 94/48 93 11/22/16 02:00 78 11/22/16 01:04 94 30 11/22/16 00:00 79 11/22/16 00:00 30 11/22/16 00:00 99.6 77 18 96/47 94 11/21/16 22:55 100 100 11/21/16 22:21 96 30 11/21/16 22:00 85 11/21/16 20:00 100.0 85 20 94/48 96 11/21/16 20:00 30 11/21/16 20:00 83 11/21/16 19:55 95 30 11/21/16 18:00 84 11/21/16 16:03 95 30 11/21/16 16:00 99.9 91 26 110/53 92 11/21/16 16:00 35 11/21/16 16:00 91 11/21/16 14:00 97 Intake & Output 11/22/16 11/22/16 07:00 19:00 Intake Total 690 ml Output Total 900 ml Balance -210 ml IV Total 236 ml Tube Feeding 454 ml Output Urine Total 450 ml Stool Total 450 ml # Bowel Movements 1 Physical Exam CONSTITUTIONAL/GENERAL: This is an adequately nourished patient, intubated, on CPAP; in an MICU bed. Responsiveness limited to decerebrate posturing with noxious stimuli. TUBES/LINES/DRAINS: orotracheal tube; orogastric tube; Tejeda catheter; peripheral IVs; ENT: Tongue is protuberant CARDIOVASCULAR: Regular rate and rhythm without murmurs, gallops, or rubs. No JVD RESPIRATORY/CHEST: Symmetric, unlabored respirations. Breath sounds equal bilaterally. Coarse breath sounds bilaterally. No wheezes, rales. GASTROINTESTINAL: Abdomen soft, non-tender, nondistended. No hepato-splenomegaly , or palpable masses. No guarding. Bowel sounds hypoactive. GENITOURINARY: Without palpable bladder distension. Tejeda catheter in place. MUSCULOSKELETAL: Extremities without clubbing, cyanosis, or edema. No mottling. NEUROLOGICAL: Does not awaken to loud voice or exam. Unable to follow commands. Decerebrate posturing to noxious stimuli. PSYCHIATRIC: Unable to evaluate due to level of responsiveness . Diagnostic Tests Laboratory Laboratory Tests Test 11/20/16 11/20/16 11/21/16 11/22/16 05:30 16:15 04:21 04:34 White Blood Count 18.3 TH/MM3 14.7 TH/MM3 (4.0-11.0) (4.0-11.0) Red Blood Count 3.16 MIL/MM3 2.83 MIL/MM3 (4.00-5.30) (4.00-5.30) Hemoglobin 7.4 GM/DL 6.6 GM/DL (11.6-15.3) (11.6-15.3) Hematocrit 23.0 % 21.7 % (35.0-46.0) (35.0-46.0) Mean Corpuscular Volume 72.8 FL 76.7 FL (80.0-100.0) (80.0-100.0) Mean Corpuscular Hemoglobin 23.3 PG 23.3 PG (27.0-34.0) (27.0-34.0) Mean Corpuscular Hemoglobin 31.9 % 30.4 % Concent (32.0-36.0) (32.0-36.0) Red Cell Distribution Width 29.2 % 30.5 % (11.6-17.2) (11.6-17.2) Platelet Count 107 TH/MM3 106 TH/MM3 (150-450) (150-450) Mean Platelet Volume 9.9 FL 10.2 FL (7.0-11.0) (7.0-11.0) Neutrophils (%) (Auto) 84.1 % 82.6 % (16.0-70.0) (16.0-70.0) Lymphocytes (%) (Auto) 6.1 % 6.0 % (9.0-44.0) (9.0-44.0) Monocytes (%) (Auto) 5.7 % (0.0-8.0) 6.6 % (0.0-8.0) Eosinophils (%) (Auto) 3.8 % (0.0-4.0) 4.4 % (0.0-4.0) Basophils (%) (Auto) 0.3 % (0.0-2.0) 0.4 % (0.0-2.0) Neutrophils # (Auto) 15.4 TH/MM3 12.2 TH/MM3 (1.8-7.7) (1.8-7.7) Lymphocytes # (Auto) 1.1 TH/MM3 0.9 TH/MM3 (1.0-4.8) (1.0-4.8) Monocytes # (Auto) 1.0 TH/MM3 1.0 TH/MM3 (0-0.9) (0-0.9) Eosinophils # (Auto) 0.7 TH/MM3 0.7 TH/MM3 (0-0.4) (0-0.4) Basophils # (Auto) 0.0 TH/MM3 0.1 TH/MM3 (0-0.2) (0-0.2) CBC Comment AUTO DIFF AUTO DIFF Differential Total Cells 100 100 Counted Neutrophils % (Manual) 74 % (16-70) 74 % (16-70) Band Neutrophils % 15 % (0-6) 15 % (0-6) Lymphocytes % 3 % (9-44) 4 % (9-44) Monocytes % 5 % (0-8) 4 % (0-8) Eosinophils % 1 % (0-4) 3 % (0-4) Neutrophils # (Manual) 16.7 TH/MM3 13.1 TH/MM3 (1.8-7.7) (1.8-7.7) Metamyelocytes 2 % (0-1) Differential Comment FINAL DIFF FINAL DIFF MANUAL MANUAL Platelet Estimate LOW (NORMAL) LOW (NORMAL) Platelet Morphology Comment NORMAL NORMAL (NORMAL) (NORMAL) Basophilic Stippling FAINT (NORMAL) Ovalocytes 1+ (NORMAL) 1+ (NORMAL) Acanthocytes OCC (NORMAL) Sodium Level 137 MEQ/L 142 MEQ/L (136-145) (136-145) Potassium Level 3.9 MEQ/L 4.1 MEQ/L (3.5-5.1) (3.5-5.1) Chloride Level 103 MEQ/L 110 MEQ/L (98-107) (98-107) Carbon Dioxide Level 26.5 MEQ/L 24.8 MEQ/L (21.0-32.0) (21.0-32.0) Anion Gap 8 MEQ/L (5-15) 7 MEQ/L (5-15) Blood Urea Nitrogen 50 MG/DL (7-18) 49 MG/DL (7-18) Creatinine 1.30 MG/DL 1.33 MG/DL 1.45 MG/DL (0.50-1.00) (0.50-1.00) (0.50-1.00) Estimat Glomerular Filtration 39 ML/MIN (>89) 38 ML/MIN (>89) 34 ML/MIN (>89) Rate Random Glucose 212 MG/DL 217 MG/DL (74-106) (74-106) Calcium Level 7.0 MG/DL 7.3 MG/DL (8.5-10.1) (8.5-10.1) Protein Corrected Calcium 8.3 MG/DL 8.7 MG/DL (8.5-10.1) (8.5-10.1) Magnesium Level 2.9 MG/DL 3.2 MG/DL (1.5-2.5) (1.5-2.5) Total Bilirubin 0.5 MG/DL 0.6 MG/DL (0.2-1.0) (0.2-1.0) Aspartate Amino Transf 62 U/L (15-37) 78 U/L (15-37) (AST/SGOT) Alanine Aminotransferase 15 U/L (10-53) 18 U/L (10-53) (ALT/SGPT) Alkaline Phosphatase 92 U/L (45-117) 127 U/L (45-117) Total Protein 4.7 GM/DL 4.6 GM/DL (6.4-8.2) (6.4-8.2) Albumin 1.6 GM/DL 1.3 GM/DL (3.4-5.0) (3.4-5.0) Random Vancomycin Level 5.0 COMMENT 13.5 COMMENT Stool C. difficile Toxin (PCR) NEGATIVE (NEGATIVE) Stl C. difficile Toxin PRESUMPTIVE Epiderm 027 NEGATIVE (NEGATIVE) Polychromasia 3.3 % (0.0-1.9) Result Diagram: 11/22/1643311/22/164 Microbiology Microbiology Date/Time Procedure Status Source Growth 11/21/16 15:20 Aerobic Blood Culture - Preliminary Resulted Blood Peripheral NO GROWTH IN 1 DAY 11/21/16 15:20 Anaerobic Blood Culture - Preliminary Resulted Blood Peripheral NO GROWTH IN 1 DAY 11/21/16 15:25 Aerobic Blood Culture - Preliminary Resulted Blood Peripheral NO GROWTH IN 1 DAY 11/21/16 15:25 Anaerobic Blood Culture - Preliminary Resulted Blood Peripheral NO GROWTH IN 1 DAY Imaging Last Impressions Chest X-Ray 11/22/16 0600 Signed Impressions: Service Date/Time: Tuesday, November 22, 2016 04:27 - CONCLUSION: 1. Increasing airspace disease and pleural effusions bilaterally compared with November 21. Endotracheal tube and nasogastric tube remain present. Emeterio Freire MD Chest CT 11/21/16 0000 Signed Impressions: Service Date/Time: Monday, November 21, 2016 22:57 - CONCLUSION: 1. Moderate size right pleural effusion and small left pleural effusion. Right effusion has increased over the last day compared with a recent chest radiograph. 2. Bilateral lung consolidation as above. Differential diagnosis includes pneumonia and aspiration. Emeterio Freire MD Head CT 11/08/16 1657 Signed Impressions: Service Date/Time: Tuesday, November 08, 2016 17:06 - CONCLUSION: Low density seen throughout the posterior circulation regions including the susan and midbrain, cerebellar hemispheres, occipital and posterior medial temporal lobes and right thalamus. This likely represents areas of infarction involving the posterior territory circulation. Jeffery Zhong MD Carotid Artery Ultrasound 11/08/16 0000 Signed Impressions: Service Date/Time: Tuesday, November 08, 2016 22:24 - CONCLUSION: Mild calcified plaque at the carotid bulbs. No evidence of hemodynamically significant carotid stenosis. José Luis Beltran MD Procedures * Intubation/mechanical ventilation . Assessment and Plan Disease Oriented Problem List: (1) CVA (cerebral vascular accident) Comment: Very large posterior circulation stroke. No signs of neurological recovery. Prognosis grim. . . (2) Rhabdomyolysis (3) Dementia Comment: Family reports at least a 7 year history of dementia. . (4) Thrombocytopenia (5) Malnutrition Comment: Presenting albumin level was 2.8 . (6) Anemia (7) Urinary tract infection Comment: Cx of 11/08 --> E coli and Enterococcus . (8) Pneumonia Comment: Sputum cx of 11/12 growing Staph aureus. . Symptom Scale: (1) Pain 0-10 Scale: Unable to quantify Comment: Patient had no known prior pain syndromes. Current possible sources of pain include prolonged bedbound status; orotracheal intubation; vascular access catheters; Tejeda catheter. . (2) Dyspnea 0-10 Scale: Unable to quantify Comment: Dyspnea currently controlled with mechanical ventilation. . (3) Encephalopathy 0-10 Scale: Unable to quantify Comment: Patient was minimally responsive on arrival. No evidence of neurologic recovery. Off all sedation. Pertinent Non-Medical Issues Psychosocial: Normally lives with her sister. Her son lives by visits frequently. Spiritual: Patient is a [employer]. Blood products should not be given without the son's permission ---> her son DID consent to blood transfusion . Legal: No advance directives. Son would be the appropriate proxy health care decision-maker under the [place] statutes hierarchy. Ethical issues impacting care: Patient is incapacitated to make her own health care decisions and is not expected to regain such capacity . Important Contacts Wyatt Crawford (son and healthcare proxy) [phone] . Prognosis This is an 86-year-old female who was suffered a fairly massive posterior circulation stroke. This is on top of at least a seven-year history of dementia with the patient was already requiring assistance with most of her ADLs. There is a high risk of during this hospitalization. Should she survive, she will require tracheostomy to protect her airway as well as ongoing artificial nutrition. She will not have meaningful interaction with her environment. The patient would certainly be eligible for hospice services at such time that family believes the patient's goals would best be honored by transitioning to "comfort measures only." . Code Status: Full Code Plan == FULL CODE, per patient's son == DECISION-MAKING: The patient lacks capacity for decision-making, and she will not regain capacity. Her son, Wyatt Crawford, is the legal health care proxy. == GOALS: The patient is a [employer]. No blood products should be given without the son's permission; he DID consent to transfusion on 11/18/16. He says on 11/22/16 that he wants to continue with aggressive care, including trach and PEG, and then probable transfer to [facility] care nursing (if she survives to that point). == SYMPTOMS: There is no apparent pain, and no dyspnea while her airway is protected. == Palliative care will continue to follow to assist with symptom management and to help clarify goals of medical treatment as the clinical course evolves. . Time Spent Total Floor Time (mins): 44 Face to Face Time (mins): 25 >50% Counseling/Coord of Care: Yes Attestation Last Impressions Chest X-Ray 11/22/16 0600 Signed Impressions: Service Date/Time: Tuesday, November 22, 2016 04:27 - CONCLUSION: 1. Increasing airspace disease and pleural effusions bilaterally compared with November 21. Endotracheal tube and nasogastric tube remain present. Emeterio Freire MD Chest CT 11/21/16 0000 Signed Impressions: Service Date/Time: Monday, November 21, 2016 22:57 - CONCLUSION: 1. Moderate size right pleural effusion and small left pleural effusion. Right effusion has increased over the last day compared with a recent chest radiograph. 2. Bilateral lung consolidation as above. Differential diagnosis includes pneumonia and aspiration. Emeterio Freire MD Head CT 11/08/16 1657 Signed Impressions: Service Date/Time: Tuesday, November 08, 2016 17:06 - CONCLUSION: Low density seen throughout the posterior circulation regions including the susan and midbrain, cerebellar hemispheres, occipital and posterior medial temporal lobes and right thalamus. This likely represents areas of infarction involving the posterior territory circulation. Jeffery Zhong MD Carotid Artery Ultrasound 11/08/16 0000 Signed Impressions: Service Date/Time: Tuesday, November 08, 2016 22:24 - CONCLUSION: Mild calcified plaque at the carotid bulbs. No evidence of hemodynamically significant carotid stenosis. MD Jarrod Jackson Arlen MD Nov 22, 2016 12:34
--- NOTE | 2016-11-22 13:48 | HHI.IDPN ---
Subjective Subjective Remarks remains on vent low grade fever < 100 less ET secretions cont to have constant diarrhea unresponsive Antibiotics fluc vanco zosyn Allergies: Coded Allergies: No Known Allergies (Unverified , 11/08/16) Objective . Vital Signs Date Time Temp Pulse Resp B/P Pulse Ox O2 Delivery O2 Flow Rate FiO2 11/22/16 12:00 30 11/22/16 12:00 99.1 78 13 96/47 94 11/22/16 12:00 78 11/22/16 11:05 93 30 11/22/16 10:00 79 11/22/16 08:13 93 30 11/22/16 08:00 30 11/22/16 08:00 99.5 79 15 100/49 93 11/22/16 08:00 79 11/22/16 06:00 76 11/22/16 04:23 94 30 11/22/16 04:00 30 11/22/16 04:00 79 11/22/16 04:00 99.5 85 20 94/48 93 11/22/16 02:00 78 11/22/16 01:04 94 30 11/22/16 00:00 79 11/22/16 00:00 30 11/22/16 00:00 99.6 77 18 96/47 94 11/21/16 22:55 100 100 11/21/16 22:21 96 30 11/21/16 22:00 85 11/21/16 20:00 100.0 85 20 94/48 96 11/21/16 20:00 30 11/21/16 20:00 83 11/21/16 19:55 95 30 11/21/16 18:00 84 11/21/16 16:03 95 30 11/21/16 16:00 99.9 91 26 110/53 92 11/21/16 16:00 35 11/21/16 16:00 91 11/21/16 14:00 97 11/21/16 11/21/16 11/22/16 15:00 23:00 07:00 Intake Total 776 ml 386 ml 304 ml Output Total 500 ml 250 ml 650 ml Balance 276 ml 136 ml -346 ml IV Total 345 ml 136 ml 100 ml Tube Feeding 431 ml 250 ml 204 ml Output Urine Total 400 ml 200 ml 250 ml Stool Total 100 ml 50 ml 400 ml # Bowel Movements 1 . Laboratory Tests Test 11/22/16 04:34 White Blood Count 14.7 TH/MM3 Red Blood Count 2.83 MIL/MM3 Hemoglobin 6.6 GM/DL Hematocrit 21.7 % Mean Corpuscular Volume 76.7 FL Mean Corpuscular Hemoglobin 23.3 PG Mean Corpuscular Hemoglobin 30.4 % Concent Red Cell Distribution Width 30.5 % Platelet Count 106 TH/MM3 Mean Platelet Volume 10.2 FL Neutrophils (%) (Auto) 82.6 % Lymphocytes (%) (Auto) 6.0 % Monocytes (%) (Auto) 6.6 % Eosinophils (%) (Auto) 4.4 % Basophils (%) (Auto) 0.4 % Neutrophils # (Auto) 12.2 TH/MM3 Lymphocytes # (Auto) 0.9 TH/MM3 Monocytes # (Auto) 1.0 TH/MM3 Eosinophils # (Auto) 0.7 TH/MM3 Basophils # (Auto) 0.1 TH/MM3 CBC Comment AUTO DIFF Differential Total Cells 100 Counted Neutrophils % (Manual) 74 % Band Neutrophils % 15 % Lymphocytes % 4 % Monocytes % 4 % Eosinophils % 3 % Neutrophils # (Manual) 13.1 TH/MM3 Differential Comment FINAL DIFF MANUAL Platelet Estimate LOW Platelet Morphology Comment NORMAL Polychromasia 3.3 % Ovalocytes 1+ Laboratory Tests Test 11/21/16 11/22/16 04:21 04:34 Creatinine 1.33 MG/DL 1.45 MG/DL Estimat Glomerular Filtration 38 ML/MIN 34 ML/MIN Rate Sodium Level 142 MEQ/L Potassium Level 4.1 MEQ/L Chloride Level 110 MEQ/L Carbon Dioxide Level 24.8 MEQ/L Anion Gap 7 MEQ/L Blood Urea Nitrogen 49 MG/DL Random Glucose 217 MG/DL Calcium Level 7.3 MG/DL Protein Corrected Calcium 8.7 MG/DL Magnesium Level 3.2 MG/DL Total Bilirubin 0.6 MG/DL Aspartate Amino Transf 78 U/L (AST/SGOT) Alanine Aminotransferase 18 U/L (ALT/SGPT) Alkaline Phosphatase 127 U/L Total Protein 4.6 GM/DL Albumin 1.3 GM/DL Microbiology Date/Time Procedure Status Source Growth 11/21/16 15:20 Aerobic Blood Culture - Preliminary Resulted Blood Peripheral NO GROWTH IN 1 DAY 11/21/16 15:20 Anaerobic Blood Culture - Preliminary Resulted Blood Peripheral NO GROWTH IN 1 DAY 11/21/16 15:25 Aerobic Blood Culture - Preliminary Resulted Blood Peripheral NO GROWTH IN 1 DAY 11/21/16 15:25 Anaerobic Blood Culture - Preliminary Resulted Blood Peripheral NO GROWTH IN 1 DAY Imaging Last Impressions Chest X-Ray 11/22/16 0600 Signed Impressions: Service Date/Time: Tuesday, November 22, 2016 04:27 - CONCLUSION: 1. Increasing airspace disease and pleural effusions bilaterally compared with November 21. Endotracheal tube and nasogastric tube remain present. Emeterio Freire MD Chest CT 11/21/16 0000 Signed Impressions: Service Date/Time: Monday, November 21, 2016 22:57 - CONCLUSION: 1. Moderate size right pleural effusion and small left pleural effusion. Right effusion has increased over the last day compared with a recent chest radiograph. 2. Bilateral lung consolidation as above. Differential diagnosis includes pneumonia and aspiration. Emeterio Freire MD Head CT 11/08/16 1657 Signed Impressions: Service Date/Time: Tuesday, November 08, 2016 17:06 - CONCLUSION: Low density seen throughout the posterior circulation regions including the susan and midbrain, cerebellar hemispheres, occipital and posterior medial temporal lobes and right thalamus. This likely represents areas of infarction involving the posterior territory circulation. Jeffery Zhong MD Carotid Artery Ultrasound 11/08/16 0000 Signed Impressions: Service Date/Time: Tuesday, November 08, 2016 22:24 - CONCLUSION: Mild calcified plaque at the carotid bulbs. No evidence of hemodynamically significant carotid stenosis. José Luis Beltran MD Physical Exam CONSTITUTIONAL/GENERAL: This is a thin elderly frail patient, in no apparent distress. Intubated, on vent TUBES/LINES/DRAINS: SKIN: No jaundice, rashes, or lesions. Skin temperature appropriate. Not diaphoretic. EYES: No scleral icterus. No injection or drainage. Fundi not examined. ENT: moist mucosae Orally intubated CARDIOVASCULAR: Regular rate and rhythm without murmurs, gallops, or rubs. No JVD. Peripheral pulses symmetric. RESPIRATORY/CHEST: Symmetric, unlabored respirations. Scattered rhonchi to auscultation. Breath sounds equal bilaterally. GASTROINTESTINAL: Abdomen soft, no reaction to palpation, moderately distended. No hepato-splenomegaly, or palpable masses. Large amount of dark stool in fecal collection sytem GENITOURINARY: Without palpable bladder distension. Tejeda catheter in place with clear yellow urine MUSCULOSKELETAL: Extremities without clubbing, cyanosis, +2 -3 soft pitting edema more prominent on BUE. No joint tenderness or effusion noted. 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 PNA ? aspiration Severe sepsis - clinically better , though still low BP Right sided infiltrate/ HCAP/ ? aspiration PNA Bacteriuria vs recurrent UTI Funguria, C.albicans Diarrhea, C.diff negative - cont zosyn - fu blood clx - abx adjustment per clx results - dc vancomycin -chk sputum clx -cont fluconazole for now dw Shani Cota MD Nov 22, 2016 13:48
[2016-11-22] MEDS ORDERED: ROCURONIUM INJ 50 MG/5 ML VIAL IV ONE (15:00)
[2016-11-22] MEDS ORDERED: MIDAZOLAM HCL 2 MG/2 ML VIAL IV PUSH ONE (15:00)
[2016-11-22] MEDS ORDERED: fentaNYL CITRATE 250 MCG/5 ML AMP IV PUSH ONE (15:00)
[2016-11-22] MEDS: SODIUM CHLOR 0.9% 1000 ML INJ 1,000 ML IV SCH (16:46)
[2016-11-22] MEDS: FLUCONAZOLE 200 MG PREMIX BAG 100 ML IV SCH (18:00)
[2016-11-23] VITALS (17 sets, daily range): BP systolic 88–124; BP diastolic 51–60; PULSE 57–72; RESP 15–21; TEMP 96.2–98.3; O2SAT 93–100
[2016-11-23] MEDS: HIGH DOSE INSULIN NOVOLIN REGULAR SUPPLEMENTAL SCALE SQ SCH ×7 (00:20→23:53)
[2016-11-23] MEDS: PIPERACIL-TAZO 3.375 GM PREMIX 50 ML IV SCH ×4 (04:28→20:05)
[2016-11-23] MEDS ORDERED: PHARMACY ORDERED LAB XX ONE (06:00)
[2016-11-23] MEDS ORDERED: TERBUTALINE INJ 1 MG/ML AMP SQ PRN (07:00)
[2016-11-23] MEDS ORDERED: DOPamine INJ PREMIX 500 ML IV SCH (07:00)
[2016-11-23] MEDS ORDERED: MIDAZOLAM HCL 5 MG/5 ML VIAL IV PUSH ONE (07:00)
[2016-11-23] MEDS ORDERED: ROCURONIUM INJ 50 MG/5 ML VIAL IV ONE (07:00)
[2016-11-23] MEDS ORDERED: fentaNYL CITRATE 250 MCG/5 ML AMP IV PUSH ONE (07:00)
[2016-11-23 07:52] LABS: HEMATOCRIT 30.2 % (35.0-46.0); MEAN CORPUSCULAR HEMOGLOBIN 25.5 PG (27.0-34.0); MEAN CORPUSCULAR HGB CONC 32.6 % (32.0-36.0); PLATELET COUNT 116 TH/MM3 (150-450); RED BLOOD COUNT 3.87 MIL/MM3 (4.00-5.30); RED CELL DISTRIBUTION WIDTH 26.6 % (11.6-17.2); WHITE BLOOD COUNT 13.3 TH/MM3 (4.0-11.0)
[2016-11-23 07:57] LABS: REVIEW FLAG FINAL
[2016-11-23 08:00] LABS: INTERNATIONAL NORMALIZED RATIO 1.2 RATIO; PROTHROMBIN TIME - PATIENT 12.8 SEC (9.8-11.6)
[2016-11-23] MEDS: HEPARIN SODIUM - SQ 10,000 UNITS/ML VIAL SQ SCH ×2 (08:00→20:02)
[2016-11-23] MEDS: CHLORHEXIDINE 0.12% (ORAL KIT) 15 ML CUP MT SCH ×2 (08:00→20:03)
[2016-11-23 08:31] LABS: BICARBONATE 23.5 MEQ/L (21.0-32.0); CALCIUM-PROTEIN CORRECTED 8.8 MG/DL (8.5-10.1); POTASSIUM 3.8 MEQ/L (3.5-5.1); TOTAL BILIRUBIN ADULT 0.7 MG/DL (0.2-1.0)
--- NOTE | 2016-11-23 08:43 | PD.PROCEDR ---
Procedure Note Procedure Percutaneous Dilation Tracheostomy Tube Placement Diagnosis: Chronic respiratory failure Indications: Unable to protect airway Anesthesia: Versed IV, fentanyl IV Neuromuscular Blockade: Rocuronium IV Anesthesia was provided by the bedside RN Description of the Procedure: The patient was sedated and paralyzed. The patient was positioned in the supine position with a chest roll and neck was slightly extended. Landmarks were palpated and the anatomy of the anterior neck was deemed normal. A time out procedure was performed. The patient was placed on a volume control mode of ventilation, on 100% FiO2. The patient was prepped and draped sterilely. A bronchoscope was inserted into the endotracheal tube for endoscopic guidance ( see separate bronchoscopy procedure note). 1% lidocaine with 1:100k epinephrine was injected subcutaneously in the midline neck using a 21g needle for local anesthesia. An approximately 1.5 cm skin incision was made using a #15 blade. Under direct bronchoscopic guidance, the cuff of the endotracheal tube was deflated and the endotracheal tube was retracted to a level above the level of the skin incision. At this point, a 15g introducer Angiocath was advanced midline under negative aspiration until air was aspirated and the needle and catheter were visualized in the lumen of the trachea. The needle was withdrawn leaving the catheter in place. A 0.052 in diameter J-shaped guidewire was advanced through the catheter into the lumen of the trachea, under direct bronchoscopic visualization. Using a modified Seldinger technique, a 14 Fr, 4.5 cm introducer dilator was used, followed by a Blue Rhino Percutaneous Tracheostomy Dilator, and finally a 28 Fr tracheostomy loading catheter with 8.0 Cuffed Shiley tracheostomy tube. The loading catheter and guidewire were removed and the tracheostomy tube was confirmed in the lumen of the trachea with bronchoscopy, end-tidal CO2, and returning volumes on the ventilator. The tracheostomy was sewn to the skin with interrupted 2.0 Prolene sutures, and a tracheostomy tie was applied to the skin. There were no immediate complications. There was minimal EBL. A chest x-ray has been ordered. Performed with: Keaton Ledbetter MD Bronchoscopist: Melchor Cochran MD Nov 23, 2016 08:43
--- NOTE | 2016-11-23 08:44 | HHI.CCPN ---
Subjective Remarks/Hospital Course This is an 86yF with per report no other past medical history who presented to the ER after she was found unresponsive in her bed. According to ER reports, her family saw her normal last night when she had a fall, with unknown LOC. At that point, he helped her back to bed. However, this morning she did not wake up. On arrival to the ER, she was unresponsive only withdrawing to pain. she was intubated for airway protection and a poor GCS. CT head demonstrated massive posterior-circulation ischemic stroke. The patient is currently intubated and unresponsive and cannot provide any additional history. 11/09: No acute changes overnight. Palliative care team has consult with the family regarding goals of care. Currently the patient's sedation fentanyl infusion has been turned off without any response from patient. The patient notably does withdrawal to pain. 11/10: No change in neurological status. [id number]. The patient withdraws to pain 4 extremities. The patient currently on no sedation, fentanyl infusion discontinued yesterday. Tube feeds were initiated. The patient's urine culture grew back Escherichia coli, the patient was started on antibiotics. Extensive discussion with son regarding patient's neurological status, son Wyatt has had extensive discussion with palliative care.The son feels that yesterday when the patient was spoken to in Irish the patient squeezed his hand and desires aggressive treatment. The patient's neuro status is unchanged, totally unresponsive with occasional reflexive twitching of feet B/L. Follow-up with neurology Dr. Pack, guarding any further imaging studies. 11/13: No change in neuro exam. Palliative care following. Family wanting full aggressive care. Palliative care will address early trach PEG 11/14: No improvement in neuro status. Son has not made decisions regarding trach and PEG. Apparently he wants to wait longer to see any improvement 11/15: Remains unresponsive. Neuro exam with extensor posturing-unchanged. Son requesting aggressive care. Continues to have low-grade fever 11/16: Clinically no improvement. Tolerates CPAP. Unable to extubate as patient will not protect airway 11/17: Tolerating C Pap but no change in neuro exam. Hemoglobin noted to be 6.8 hemodynamically stable 11/18: Became tachycardic and hypotensive early a.m., placed on assist control. Otherwise neuro exam remains unchanged 11/19: Continues to spike fever Tmax 102, started on vancomycin and cefepime in addition to Levaquin yesterday. Currently only low-grade fever. Received 2 units of blood for hemoglobin of 5.3. CBC pending at this time. No improvement in neuro exam 11/20: White count is 18.3 today, MAXIMUM TEMPERATURE 103.1. Chest x-ray showing right sided infiltrate. Urine culture with gram-negative rods and Lizet albicans. ID consulted Diflucan added 11/21/16: Tmax 101.5. Bilateral lung infiltrates, R>L but slightly improved. No improvement in neuro exam. ID consulted and following. 11/22/16: No fever. CT chest- moderate to large R pleural effusion, bilateral lung infiltrates. ABX per ID. CXR today shows increasing bilateral infiltrates and effusion right more than left. Almost near complete infiltrates on the right lung [place]. Vaginally worsening creatinine today 1.45 indicating multiorgan failure 11/23/16: Hb 9.8 today after 2U PRBC yesterday. Plan for tracheostomy today. INR normal platelet count 116. Worsening creatinine today is 1.6. UO 550 ml in 24 hours. 1L NS bolus and 75 ml per hour maintenance NS. Started on Dopamine 3 mcg per min to maintain MAP>65 Objective Vital Signs Date Time Temp Pulse Resp B/P Pulse Ox O2 Delivery O2 Flow Rate FiO2 11/23/16 08:10 99 100 11/23/16 06:00 58 11/23/16 04:00 97.6 15 88/51 Intake and Output 11/22/16 11/22/16 11/23/16 08:00 16:00 00:00 Intake Total 304 ml 2113 ml 461 ml Output Total 650 ml 600 ml 400 ml Balance -346 ml 1513 ml 61 ml Result Diagram: 11/23/16 0723 11/23/16 0723 Imaging Last [address] 11/08/161656 Signed Impressions: Service Date/Time: Tuesday, November 08, 2016 17:06 - CONCLUSION: Low density seen throughout the posterior circulation regions including the susan and midbrain, cerebellar hemispheres, occipital and posterior medial temporal lobes and right thalamus. This likely represents areas of infarction involving the posterior territory circulation. Jeffery Zhong MD Chest X-Ray 11/08/161656 Signed Impressions: Service Date/Time: Tuesday, November 08, 2016 17:12 - CONCLUSION: Endotracheal tube is at the kraig and needs to be withdrawn at least 2 cm. Satisfactory position of nasogastric tube. No evidence of significant airspace disease or congestion. Hill Sequeira MD Objective Remarks GENERAL: Elderly female, lying in bed, intubated, unresponsive, critically ill. HEENT: Pupils 3mm, equal, reactive. normocephalic. atraumatic. Mucous membranes moist. NECK: Orotracheally intubated. No JVD. Trachea midline. CHEST: Equal chest rise. Coarse breath sounds bilaterally, diminished air entry R base CARDIOVASCULAR: Normal rate, regular rhythm. No appreciable murmurs. ABDOMEN: Soft, nontender, nondistended. No guarding. MUSCULOSKELETAL: No peripheral edema. Distal pulses 2+. NEUROLOGICAL: Positive corneal reflex. LIDYA. Negative cough. Negative gag. Extensor posturing in uppers. Downgoing Babinski. 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 She was last seen normal, nearly 24 hours, she was not a candidate for any interventional therapy. Unfortunately, given her age, and the extent of the stroke, her prognosis for any reasonable neurologic function is quite poor, and I do not think that we will be able to improve her outcome at all. Her family expressed wishes for a short course of aggressive medical management. Active problems: Massive posterior circulation ischemic CVA Hypoxic and hypercarbic respiratory failure Severe encephalopathy secondary to stroke Severe sepsis Healthcare associated pneumonia with pleural effusion Acute kidney injury UTI Anemia-acute and chronic Hyperglycemia of critical illness Thrombocytopenia Plan Neuro: Every hour neuro checks. No sedatives given for > week now (Versed and Fentanyl given x1 yesterday to facilitate chest US due to severe coughing on turning) --Remains unresponsive, extensor posturing to painful stimuli --There is no clinical improvement and patient's chance of meaningful recovery is very minimal, now developing multiorgan failure --Son wants to continue aggressive care --Follow-up neurology recommendations-Dr. Pack, per his evaluation prognosis no meaningful recovery Resp: Vent bundle, Head of bed 30, when necessary nebs Wean FiO2 for goal SPO2 greater than 90% --Plan for trach today and consult GI for PEG --See ID for HCAP treatment --CT chest to evaluate for abscess/effusion -showed moderate R effusion. But bedside US not large enough to tap CVS: Goal systolic blood pressure less than 180. Use nicardipine, PRN labetalol and hydralazine as needed 2-D echo -EF 5560 %, mild aortic mitral and tricuspid regurgitation, No RWMA. Carotid ultrasound-no stenosis GI: --Tolerating tube feeding, Having BMs : -Monitor urine output, monitor BUN/creatinine ID: -On Zosyn for HCAP and and Diflucan for lizet UTI. DC Vanc today -Was on Levaquin for and also MSSA pneumonia, UTI with Escherichia coli, enterococcus faecalis (All 3 organisms S to quinolones). DCd -Urine culture 11/18/16 with Lizet albicans and E coli NOT S Levaquin, but S to zosyn -Infectious disease Dr. Wen -CT chest moderate to right effusion Endo: --Medium dose sliding scale regimen-Continue to monitor Proph: Subcutaneous heparin on hold secondary to thrombocytopenia, anemia. Platelet count is improved 113 hemoglobin 9.6. SCDs for DVT prophylaxis --Start Lovenox in 24 hours on 11/24 in Hb, plt count stable and no bleeding from trach Protonix for GI prophylaxis Dispo: --To continue care, need to proceed with trach/PEG sooner than later. Vent day 14 (intubated on 11/08/16) Trach today Dispo: Palliative care medicine is following extensive discussion with the patient's son, Wyatt Crawford-plan is to continue aggressive treatment. Son has not decided up on tracheostomy and PEG placement. He stated that he did not want his mother to remain in the vegetative state. Per Dr. Castro's note 11/19 son wants aggressive care, including 'experimental' therapy 11/22 Dr. Garay meeting with son again today CCT 32 min Melchor Gil MD Nov 23, 2016 08:44
[2016-11-23] MEDS: SODIUM CHLOR 0.9% 1000 ML INJ 1,000 ML IV SCH ×5 (09:00→17:46)
[2016-11-23] MEDS: SODIUM CHLORIDE 0.9% FLUSH 5 ML FLUSH IV FLUSH SCH ×2 (09:00→20:02)
[2016-11-23] MEDS: ARTIFICIAL TEARS OPTH SOLN 15 ML BTL EACH EYE SCH ×3 (09:32→17:31)
[2016-11-23] MEDS: DOCUSATE SODIUM 100 MG/10 ML UDC G-TUBE SCH ×2 (09:34→20:02)
[2016-11-23] MEDS: FERROUS SULFATE 300 MG /5ML UDC PO SCH ×2 (09:34→20:05)
[2016-11-23] MEDS: PANTOPRAZOLE SODIUM 40 MG VIAL IV SCH (09:34)
--- NOTE | 2016-11-23 09:40 | RADRPT ---
EXAM DATE/TIME: 11/23/2016 09:09 [facility] COMPARISON: CHEST SINGLE AP, November 22, 2016, 4:27. INDICATIONS : Post tracheostomy. MEDICAL HISTORY : None. SURGICAL HISTORY : None. ENCOUNTER: Initial ACUITY: 1 day PAIN SCORE: Non-responsive. LOCATION: Bilateral chest FINDINGS: A single view of the chest demonstrates interval removal of the endotracheal tube with placement of t he tracheostomy. The tip of the latter is upper clavicular heads. Nasogastric tube has been removed. Persistent bilateral effusions and extensive airspace disease, unchanged from prior. Heart size is no rmal. Osseous structures are intact. Dense atherosclerotic calcification of the aortic arch. CONCLUSION: 1. Interval removal of the endotracheal tube with placement of the tracheostomy. The tracheostomy tip is at the clavicular heads. 2. Persistent bilateral effusions with extensive bilateral airspace disease, unchanged. 3. Nasogastric tube has been removed. Kirit Alcantar MD on November 23, 2016 at 9:36 Board Certified Radiologist. This report was verified electronically.
--- NOTE | 2016-11-23 10:53 | HHI.HCPN ---
Reason for visit a. To assist with evaluation and management of symptoms including: pain; dyspnea; encephalopathy b. To assist medical decision maker(s) with: better understanding of current medical conditions; weighing benefits/burdens of medical treatment options; making medical treatment decisions. . Subjective/Interval History 86 y/o female with devastating posterior circulation stroke, TRACH PLACED THIS MORNING, in an [facility] bed. She has been off all sedation for several days. At time of my visit, responsiveness remains limited to decerebrate (extensor) posturing to noxious stimulus. No significant change. She seemed to tolerate the trach placement OK this morning. No signs of discomfort. Renal function worsening, now creatinine 1.68. Hemoglobin improved after transfusion again. Discussion w pt's son regarding code status, see below. . . Family/friend interactions D/W son; he understands that pt's renal function is worsening. He now want's pt to be DNR, so she will naturally "when God calls her home." . Advance Directives Living Will: Never completed Health Care Surrogate: Never completed Durable Power of Cook Helper Dessert: Never completed Advance Directive Specifics Date completed: Advance directives were never completed . Health Care Surrogate(s): There is no known written designation of health care surrogate . Documented care wishes: There is no written documentation of health care goals/preferences. . Significant change in goals: 11/23/18: Son requests DNR. . Objective Vital Signs Date Time Temp Pulse Resp B/P Pulse Ox O2 Delivery O2 Flow Rate FiO2 11/23/16 09:12 93 40 11/23/16 08:10 99 100 11/23/16 06:00 58 11/23/16 04:00 57 11/23/16 04:00 97.6 57 15 88/51 95 11/23/16 04:00 30 11/23/16 03:38 96 30 11/23/16 02:00 63 11/23/16 00:00 30 11/23/16 00:00 64 11/23/16 00:00 98.3 64 16 98/55 95 11/22/16 23:52 96 30 11/22/16 22:00 65 11/22/16 20:29 94 30 11/22/16 20:00 75 11/22/16 20:00 98.4 75 15 115/58 90 11/22/16 20:00 30 11/22/16 18:00 76 11/22/16 16:00 30 11/22/16 16:00 98.9 65 19 70/40 100 11/22/16 16:00 65 11/22/16 15:40 95 30 11/22/16 15:40 30 11/22/16 14:00 91 11/22/16 12:00 30 11/22/16 12:00 99.1 78 13 96/47 94 11/22/16 12:00 78 11/22/16 11:05 93 30 Intake & Output 11/23/16 11/23/16 07:00 19:00 Intake Total 912 ml Output Total 550 ml Balance 362 ml IV Total 299 ml Tube Feeding 303 ml Other 310 ml Output Urine Total 300 ml Stool Total 250 ml Tube Feeding Residual Discard 0 ml # Bowel Movements 2 Physical Exam CONSTITUTIONAL/GENERAL: This is an adequately nourished patient, intubated, on CPAP; in an MICU bed. Responsiveness limited to decerebrate posturing with noxious stimuli. TUBES/LINES/DRAINS: trach, NG tube; Tejeda catheter; peripheral IVs; CARDIOVASCULAR: Regular rate and rhythm without murmurs, gallops, or rubs. No JVD RESPIRATORY/CHEST: Symmetric, unlabored respirations. Breath sounds equal bilaterally. Coarse breath sounds bilaterally. No wheezes, rales. GASTROINTESTINAL: Abdomen soft, non-tender, nondistended. No hepato-splenomegaly , or palpable masses. No guarding. Bowel sounds hypoactive. GENITOURINARY: Without palpable bladder distension. Tejeda catheter in place. MUSCULOSKELETAL: Extremities without clubbing, cyanosis, or edema. No mottling. NEUROLOGICAL: Does not awaken to loud voice or exam. Unable to follow commands. Decerebrate posturing to noxious stimuli. PSYCHIATRIC: Unable to evaluate due to level of responsiveness . Diagnostic Tests Laboratory Laboratory Tests Test 11/20/16 11/21/16 11/22/16 11/22/16 16:15 04:21 04:34 12:14 Stool C. difficile Toxin (PCR) NEGATIVE (NEGATIVE) Stl C. difficile Toxin PRESUMPTIVE Epiderm 027 NEGATIVE (NEGATIVE) Creatinine 1.33 MG/DL 1.45 MG/DL (0.50-1.00) (0.50-1.00) Estimat Glomerular Filtration 38 ML/MIN (>89) 34 ML/MIN (>89) Rate Random Vancomycin Level 13.5 COMMENT White Blood Count 14.7 TH/MM3 (4.0-11.0) Red Blood Count 2.83 MIL/MM3 (4.00-5.30) Hemoglobin 6.6 GM/DL (11.6-15.3) Hematocrit 21.7 % (35.0-46.0) Mean Corpuscular Volume 76.7 FL (80.0-100.0) Mean Corpuscular Hemoglobin 23.3 PG (27.0-34.0) Mean Corpuscular Hemoglobin 30.4 % Concent (32.0-36.0) Red Cell Distribution Width 30.5 % (11.6-17.2) Platelet Count 106 TH/MM3 (150-450) Mean Platelet Volume 10.2 FL (7.0-11.0) Neutrophils (%) (Auto) 82.6 % (16.0-70.0) Lymphocytes (%) (Auto) 6.0 % (9.0-44.0) Monocytes (%) (Auto) 6.6 % (0.0-8.0) Eosinophils (%) (Auto) 4.4 % (0.0-4.0) Basophils (%) (Auto) 0.4 % (0.0-2.0) Neutrophils # (Auto) 12.2 TH/MM3 (1.8-7.7) Lymphocytes # (Auto) 0.9 TH/MM3 (1.0-4.8) Monocytes # (Auto) 1.0 TH/MM3 (0-0.9) Eosinophils # (Auto) 0.7 TH/MM3 (0-0.4) Basophils # (Auto) 0.1 TH/MM3 (0-0.2) CBC Comment AUTO DIFF Differential Total Cells 100 Counted Neutrophils % (Manual) 74 % (16-70) Band Neutrophils % 15 % (0-6) Lymphocytes % 4 % (9-44) Monocytes % 4 % (0-8) Eosinophils % 3 % (0-4) Neutrophils # (Manual) 13.1 TH/MM3 (1.8-7.7) Differential Comment FINAL DIFF MANUAL Platelet Estimate LOW (NORMAL) Platelet Morphology Comment NORMAL (NORMAL) Polychromasia 3.3 % (0.0-1.9) Ovalocytes 1+ (NORMAL) Sodium Level 142 MEQ/L (136-145) Potassium Level 4.1 MEQ/L (3.5-5.1) Chloride Level 110 MEQ/L (98-107) Carbon Dioxide Level 24.8 MEQ/L (21.0-32.0) Anion Gap 7 MEQ/L (5-15) Blood Urea Nitrogen 49 MG/DL (7-18) Random Glucose 217 MG/DL (74-106) Calcium Level 7.3 MG/DL (8.5-10.1) Protein Corrected Calcium 8.7 MG/DL (8.5-10.1) Magnesium Level 3.2 MG/DL (1.5-2.5) Total Bilirubin 0.6 MG/DL (0.2-1.0) Aspartate Amino Transf 78 U/L (15-37) (AST/SGOT) Alanine Aminotransferase 18 U/L (10-53) (ALT/SGPT) Alkaline Phosphatase 127 U/L (45-117) Total Protein 4.6 GM/DL (6.4-8.2) Albumin 1.3 GM/DL (3.4-5.0) Blood Type O POSITIVE Antibody Screen NEGATIVE Crossmatch Leukocyte-Reduced Red Blood Cells Blood Bank Comment Test 11/23/16 11/23/16 06:49 07:23 Blood Type O POSITIVE Crossmatch Leukocyte-Reduced Red Blood Cells Blood Bank Comment White Blood Count 13.3 TH/MM3 (4.0-11.0) Red Blood Count 3.87 MIL/MM3 (4.00-5.30) Hemoglobin 9.8 GM/DL (11.6-15.3) Hematocrit 30.2 % (35.0-46.0) Mean Corpuscular Volume 78.0 FL (80.0-100.0) Mean Corpuscular Hemoglobin 25.5 PG (27.0-34.0) Mean Corpuscular Hemoglobin 32.6 % Concent (32.0-36.0) Red Cell Distribution Width 26.6 % (11.6-17.2) Platelet Count 116 TH/MM3 (150-450) Mean Platelet Volume 10.0 FL (7.0-11.0) Prothrombin Time 12.8 SEC (9.8-11.6) Prothromb Time International 1.2 RATIO Ratio Sodium Level 142 MEQ/L (136-145) Potassium Level 3.8 MEQ/L (3.5-5.1) Chloride Level 110 MEQ/L (98-107) Carbon Dioxide Level 23.5 MEQ/L (21.0-32.0) Anion Gap 9 MEQ/L (5-15) Blood Urea Nitrogen 50 MG/DL (7-18) Creatinine 1.68 MG/DL (0.50-1.00) Estimat Glomerular Filtration 29 ML/MIN (>89) Rate Random Glucose 129 MG/DL (74-106) Calcium Level 7.4 MG/DL (8.5-10.1) Protein Corrected Calcium 8.8 MG/DL (8.5-10.1) Total Bilirubin 0.7 MG/DL (0.2-1.0) Aspartate Amino Transf 76 U/L (15-37) (AST/SGOT) Alanine Aminotransferase 22 U/L (10-53) (ALT/SGPT) Alkaline Phosphatase 139 U/L (45-117) Total Protein 4.6 GM/DL (6.4-8.2) Albumin 1.3 GM/DL (3.4-5.0) Result Diagram: 11/23/16 0723 11/23/16 0723 Microbiology Microbiology Date/Time Procedure Status Source Growth 11/21/16 15:20 Aerobic Blood Culture - Preliminary Resulted Blood Peripheral NO GROWTH IN 1 DAY 11/21/16 15:20 Anaerobic Blood Culture - Preliminary Resulted Blood Peripheral NO GROWTH IN 1 DAY 11/21/16 15:25 Aerobic Blood Culture - Preliminary Resulted Blood Peripheral NO GROWTH IN 1 DAY 11/21/16 15:25 Anaerobic Blood Culture - Preliminary Resulted Blood Peripheral NO GROWTH IN 1 DAY 11/23/16 08:30 Gram Stain Received Sputum Endotracheal Pending 11/23/16 08:30 Sputum Culture Received Sputum Endotracheal Pending Imaging Last Impressions Chest X-Ray 11/23/16 0000 Signed Impressions: Service Date/Time: October 09:09 - CONCLUSION: 1. Interval removal of the endotracheal tube with placement of the tracheostomy. The tracheostomy tip is at the clavicular heads. 2. Persistent bilateral effusions with extensive bilateral airspace disease, unchanged. 3. Nasogastric tube has been removed. Kirit Alcantar MD Chest CT 11/21/16 0000 Signed Impressions: Service Date/Time: Monday, November 21, 2016 22:57 - CONCLUSION: 1. Moderate size right pleural effusion and small left pleural effusion. Right effusion has increased over the last day compared with a recent chest radiograph. 2. Bilateral lung consolidation as above. Differential diagnosis includes pneumonia and aspiration. Emeterio Freire MD Head CT 11/08/16 1657 Signed Impressions: Service Date/Time: Tuesday, November 08, 2016 17:06 - CONCLUSION: Low density seen throughout the posterior circulation regions including the susan and midbrain, cerebellar hemispheres, occipital and posterior medial temporal lobes and right thalamus. This likely represents areas of infarction involving the posterior territory circulation. Jeffery Zhong MD Carotid Artery Ultrasound 11/08/16 0000 Signed Impressions: Service Date/Time: Tuesday, November 08, 2016 22:24 - CONCLUSION: Mild calcified plaque at the carotid bulbs. No evidence of hemodynamically significant carotid stenosis. José Luis Beltran MD Procedures * Intubation/mechanical ventilation * Trach 11/23/16 . Assessment and Plan Disease Oriented Problem List: (1) CVA (cerebral vascular accident) Comment: Very large posterior circulation stroke. No signs of neurological recovery. Prognosis grim. . . (2) Rhabdomyolysis (3) Dementia Comment: Family reports at least a 7 year history of dementia. . (4) Thrombocytopenia (5) Malnutrition Comment: Presenting albumin level was 2.8 . (6) Anemia (7) Urinary tract infection Comment: Cx of 11/08 --> E coli and Enterococcus . (8) Pneumonia Comment: Sputum cx of 11/12 growing Staph aureus. . Symptom Scale: (1) Pain 0-10 Scale: Unable to quantify Comment: Patient had no known prior pain syndromes. Current possible sources of pain include prolonged bedbound status; orotracheal intubation; vascular access catheters; Tejeda catheter. . (2) Dyspnea 0-10 Scale: Unable to quantify Comment: Dyspnea currently controlled with mechanical ventilation. . (3) Encephalopathy 0-10 Scale: Unable to quantify Comment: Patient was minimally responsive on arrival. No evidence of neurologic recovery. Off all sedation. Pertinent Non-Medical Issues Psychosocial: Normally lives with her sister. Her son lives by visits frequently. Spiritual: Patient is a [employer]. Blood products should not be given without the son's permission ---> her son DID consent to blood transfusion . Legal: No advance directives. Son would be the appropriate proxy health care decision-maker under the [place] statutes hierarchy. Ethical issues impacting care: Patient is incapacitated to make her own health care decisions and is not expected to regain such capacity . Important Contacts Wyatt Crawford (son and healthcare proxy) [phone] . Prognosis This is an 86-year-old female who was suffered a fairly massive posterior circulation stroke. This is on top of at least a seven-year history of dementia with the patient was already requiring assistance with most of her ADLs. There is a high risk of during this hospitalization. Should she survive, she will require tracheostomy to protect her airway as well as ongoing artificial nutrition. She will not have meaningful interaction with her environment. The patient would certainly be eligible for hospice services at such time that family believes the patient's goals would best be honored by transitioning to "comfort measures only." . Code Status: Full Code Plan == DO NOT RESUSCITATE, per patient's son on 11/23/16 == DECISION-MAKING: The patient lacks capacity for decision-making, and she will not regain capacity. Her son, Wyatt Crawford, is the legal health care proxy. == GOALS: The patient is a [employer]. No blood products should be given without the son's permission; he DID consent to transfusion on 11/18 and . He said on 11/22/16 that he wanted trach and PEG, and then probable transfer to long care nursing (if she survives to that point). On 11/23/16: son understands that pt's renal function is worsening. He now want's pt to be DNR, so she will naturally "when God calls her home." == SYMPTOMS: It is difficult to know when she has pain or dyspnea, and we will continue to observe closely for signs of suffering. Certainly her bedbound status and recent procedures could be painful. No new med recommendations at this time. == Palliative care will continue to follow to assist with symptom management and to help clarify goals of medical treatment as the clinical course evolves. . Time Spent Total Floor Time (mins): 39 Face to Face Time (mins): 9 >50% Counseling/Coord of Care: Yes (d/w RN and with Dr. Gil) Attestation To help prompt me to consider important information that might be impacting today's encounter and assessment, information from prior notes written by myself or my colleagues may have been "brought forward" into today's note. My signature on this note, however, is an attestation that I personally performed the exam, history, and/or decision-making noted today, and, unless otherwise indicated, the interactions with patient, family, and staff as well as the review of records all occurred today. I also attest that the listed assessment and stated plan reflect my best clinical judgment today based on the combination of historical information, prior notes, and today's exam/ interactions. When time spent is documented, it refers only to time spent today by the signer, or if indicated, combined time spent today by collaborating physician/nurse practitioner. Bailey Garay MD Nov 23, 2016 10:53
[2016-11-23] MEDS: FREE WATER G-TUBE SCH ×4 (12:00→23:53)
--- NOTE | 2016-11-23 15:09 | PD.CONS ---
HPI History of Present Illness This is a 86 year old female who is currently in the ICU sedated on the ventilator. She is unable to provide any history and therefore the history has been obtained from the EMR. She was brought to the ER after being found unresponsive. She was found to have a massive posterior circulation ischemic CVA and she remains in the ICU being treated for hypoxic respiratory failure, severe encephalopathy secondary to stroke, severe sepsis, healthcare associated pneumonia with pleural effusion, acute kidney injury, UTI, anemia, and thrombocytopenia. She had a tracheostomy placed earlier today. She is currently receiving nutrition as recommended by the dietitian-Jevity 1.5 with goal rate of 40 ml/hr. GI has been consulted for PEG tube placement. According to the nurse, the son is wanting to proceed with tracheostomy and PEG tube placement. I attempted to call son Wyatt Crawford ([phone]) to discuss EGD with PEG tube placement, procedure, risks, benefits. There is no answer in his voice mail has not been set up he has wire was unable to leave a message. ( Yoli Dickens) [facility] Past Medical History According to the EMR. Past medical history is only remarkable for reported dementia. Past Surgical History No prior surgeries (Yoli Dickens) Coded Allergies: No Known Allergies (Unverified , 11/08/16) Medications Allergies Coded Allergies Type Severity Reaction Last Updated Verified No Known Allergies 11/08/16 No Active Scripts Medications Dose Route/Sig Days Date Category No Active Prescriptions or Reported Medications Rx Family History Son is unaware of the cause of of the patient's parents. Son reports the patient had multiple siblings but is unaware of causes of of any of them and is unaware of any diseases that run in the family. . Social History According to the EMR, no tobacco or etoh use. (Yoli Dickens) Review of Systems ROS Unable to obtain (Yoli Dickens) GI Exam Vitals I&O Vital Signs Date Time Temp Pulse Resp B/P Pulse Ox O2 Delivery O2 Flow Rate FiO2 11/23/16 14:00 64 11/23/16 12:00 71 11/23/16 12:00 96.2 71 15 101/57 94 11/23/16 10:00 66 11/23/16 09:35 15 11/23/16 09:12 93 40 11/23/16 08:10 99 100 11/23/16 08:00 97.7 72 15 124/60 100 11/23/16 08:00 35 11/23/16 08:00 72 11/23/16 06:00 58 11/23/16 04:00 57 11/23/16 04:00 97.6 57 15 88/51 95 11/23/16 04:00 30 11/23/16 03:38 96 30 11/23/16 02:00 63 11/23/16 00:00 30 11/23/16 00:00 64 11/23/16 00:00 98.3 64 16 98/55 95 11/22/16 23:52 96 30 11/22/16 22:00 65 11/22/16 20:29 94 30 11/22/16 20:00 75 11/22/16 20:00 98.4 75 15 115/58 90 11/22/16 20:00 30 11/22/16 18:00 76 11/22/16 16:00 30 11/22/16 16:00 98.9 65 19 70/40 100 11/22/16 16:00 65 11/22/16 15:40 95 30 11/22/16 15:40 30 I/O 11/22/16 11/22/16 11/22/16 11/23/16 11/23/16 11/23/16 07:00 15:00 23:00 07:00 15:00 23:00 Intake Total 304 ml 2574 ml 451 ml Output Total 650 ml 1000.0 ml 150 ml Balance -346 ml 1574.0 ml 301 ml IV Total 100 ml 826 ml 120 ml Tube Feeding 204 ml 531 ml 81 ml Platelets 657 ml Other 560 ml 250 ml Output Urine Total 250 ml 400 ml 150 ml Stool Total 400 ml 600 ml Tube Feeding Residual Discard 0 ml # Bowel Movements 2 Imaging Last Impressions Chest X-Ray 11/23/16 0000 Signed Impressions: Service Date/Time: October 09:09 - CONCLUSION: 1. Interval removal of the endotracheal tube with placement of the tracheostomy. The tracheostomy tip is at the clavicular heads. 2. Persistent bilateral effusions with extensive bilateral airspace disease, unchanged. 3. Nasogastric tube has been removed. Kirit Alcantar MD Chest CT 11/21/16 0000 Signed Impressions: Service Date/Time: Monday, November 21, 2016 22:57 - CONCLUSION: 1. Moderate size right pleural effusion and small left pleural effusion. Right effusion has increased over the last day compared with a recent chest radiograph. 2. Bilateral lung consolidation as above. Differential diagnosis includes pneumonia and aspiration. Emeterio Freire MD Head CT 11/08/16 1657 Signed Impressions: Service Date/Time: Tuesday, November 08, 2016 17:06 - CONCLUSION: Low density seen throughout the posterior circulation regions including the susan and midbrain, cerebellar hemispheres, occipital and posterior medial temporal lobes and right thalamus. This likely represents areas of infarction involving the posterior territory circulation. Jeffery Zhong MD Carotid Artery Ultrasound 11/08/16 0000 Signed Impressions: Service Date/Time: Tuesday, November 08, 2016 22:24 - CONCLUSION: Mild calcified plaque at the carotid bulbs. No evidence of hemodynamically significant carotid stenosis. José Luis Beltran MD Laboratory Test 11/23/16 11/23/16 06:49 07:23 Blood Type O POSITIVE Crossmatch Leukocyte-Reduced Red Blood Cells Blood Bank Comment White Blood Count 13.3 TH/MM3 Red Blood Count 3.87 MIL/MM3 Hemoglobin 9.8 GM/DL Hematocrit 30.2 % Mean Corpuscular Volume 78.0 FL Mean Corpuscular Hemoglobin 25.5 PG Mean Corpuscular Hemoglobin 32.6 % Concent Red Cell Distribution Width 26.6 % Platelet Count 116 TH/MM3 Mean Platelet Volume 10.0 FL Prothrombin Time 12.8 SEC Prothromb Time International 1.2 RATIO Ratio Sodium Level 142 MEQ/L Potassium Level 3.8 MEQ/L Chloride Level 110 MEQ/L Carbon Dioxide Level 23.5 MEQ/L Anion Gap 9 MEQ/L Blood Urea Nitrogen 50 MG/DL Creatinine 1.68 MG/DL Estimat Glomerular Filtration 29 ML/MIN Rate Random Glucose 129 MG/DL Calcium Level 7.4 MG/DL Protein Corrected Calcium 8.8 MG/DL Total Bilirubin 0.7 MG/DL Aspartate Amino Transf 76 U/L (AST/SGOT) Alanine Aminotransferase 22 U/L (ALT/SGPT) Alkaline Phosphatase 139 U/L Total Protein 4.6 GM/DL Albumin 1.3 GM/DL Date/Time Procedure Status Source Growth 11/23/16 08:30 Gram Stain - Final Resulted Sputum Endotracheal 11/23/16 08:30 Sputum Culture Resulted Sputum Endotracheal Pending 11/21/16 15:25 Aerobic Blood Culture - Preliminary Resulted Blood Peripheral NO GROWTH IN 2 DAYS 11/21/16 15:25 Anaerobic Blood Culture - Preliminary Resulted Blood Peripheral NO GROWTH IN 2 DAYS Physical Examination HEENT: Normocephalic; atraumatic; no jaundice. Tracheostomy CHEST: Resp even/unlabored. Vent via trach. CARDIAC: Regular rate and rhythm with no murmur gallop or rubs. ABDOMEN: Soft, nondistended, nontender; no hepatosplenomegaly; bowel sounds are present in all four quadrants. EXTREMITIES: Generalized edema. SKIN: Normal; no rash; no jaundice. ELECTRONEURODIAGNOSTIC TECHNICIAN: Sedated on vent (Yoli Dickens) Assessment and Plan Plan ASSESSMENT: - Dysphagia, FEN. Pt currently in ICU being treated for massive posterior circulation ischemic CVA and she remains in the ICU being treated for hypoxic respiratory failure, severe encephalopathy secondary to stroke, severe sepsis, HCAP with pleural effusion, and acute kidney injury. She is S/P tracheostomy today and according to the nurse , her son is wanting both tracheostomy and PEG. Dean Of Instruction recommends Jevity 1.5 with goal rate of 40 ml/hr. Attempted to call son Wyatt Crawford ([phone]) to discuss EGD with PEG tube placement, procedure, risks, benefits. There is no answer in his voice mail has not been set up he has wire was unable to leave a message. PLAN: - Plan for egd with peg tube placement - Obtain consents - NPO after MN - Hold heparin after MN - On Zosyn - Dean Of Instruction recommends Jevity 1.5 with goal rate of 40 ml/hr. - Pt seen and examined by Dr. Choi and myself Spoke to son and he is agreeable. (Yoli Dickens) Physician Comments Patient seen and examined Agree with above Continue with current supportive care Monitor labs Plan for PEG placement tomorrow (Colten Choi MD) Yoli Dickens Nov 23, 2016 15:09 Colten Choi MD Nov 23, 2016 17:24
[2016-11-23] MEDS: FLUCONAZOLE 200 MG PREMIX BAG 100 ML IV SCH (16:02)
[2016-11-23] MEDS: CHLORHEXIDINE GLUCONATE 2 % 1 PACK (2 CLOTHS) TOP SCH (20:04)
[2016-11-24] VITALS (18 sets, daily range): BP systolic 96–150; BP diastolic 50–69; PULSE 66–83; RESP 15–18; TEMP 97.5–98; O2SAT 95–99
[2016-11-24] MEDS: HIGH DOSE INSULIN NOVOLIN REGULAR SUPPLEMENTAL SCALE SQ SCH ×4 (04:00→20:00)
[2016-11-24] MEDS: SODIUM CHLOR 0.9% 1000 ML INJ 1,000 ML IV SCH ×2 (04:00→04:14)
[2016-11-24] MEDS: CHLORHEXIDINE GLUCONATE 2 % 1 PACK (2 CLOTHS) TOP SCH ×2 (04:00→22:52)
[2016-11-24] MEDS: PIPERACIL-TAZO 3.375 GM PREMIX 50 ML IV SCH ×4 (04:15→22:51)
[2016-11-24] MEDS: EPOETIN ALFA 10,000 UNITS/ML VIAL SQ SCH (05:09)
[2016-11-24] MEDS: FREE WATER G-TUBE SCH ×4 (05:09→22:51)
[2016-11-24] MEDS: CHLORHEXIDINE 0.12% (ORAL KIT) 15 ML CUP MT SCH ×2 (08:00→22:51)
[2016-11-24] MEDS: FERROUS SULFATE 300 MG /5ML UDC PO SCH ×2 (08:14→22:51)
[2016-11-24] MEDS: DOCUSATE SODIUM 100 MG/10 ML UDC G-TUBE SCH ×2 (08:14→21:00)
[2016-11-24] MEDS: PANTOPRAZOLE SODIUM 40 MG VIAL IV SCH (08:14)
[2016-11-24] MEDS: SODIUM CHLORIDE 0.9% FLUSH 5 ML FLUSH IV FLUSH SCH ×2 (08:14→21:00)
[2016-11-24] MEDS: ARTIFICIAL TEARS OPTH SOLN 15 ML BTL EACH EYE SCH ×3 (08:14→18:00)
--- NOTE | 2016-11-24 08:27 | HHI.CCPN ---
Subjective Remarks/Hospital Course This is an 86yF with per report no other past medical history who presented to the ER after she was found unresponsive in her bed. According to ER reports, her family saw her normal last night when she had a fall, with unknown LOC. At that point, he helped her back to bed. However, this morning she did not wake up. On arrival to the ER, she was unresponsive only withdrawing to pain. she was intubated for airway protection and a poor GCS. CT head demonstrated massive posterior-circulation ischemic stroke. The patient is currently intubated and unresponsive and cannot provide any additional history. 11/09: No acute changes overnight. Palliative care team has consult with the family regarding goals of care. Currently the patient's sedation fentanyl infusion has been turned off without any response from patient. The patient notably does withdrawal to pain. 11/10: No change in neurological status. E1V1M4. The patient withdraws to pain 4 extremities. The patient currently on no sedation, fentanyl infusion discontinued yesterday. Tube feeds were initiated. The patient's urine culture grew back Escherichia coli, the patient was started on antibiotics. Extensive discussion with son regarding patient's neurological status, son Wyatt has had extensive discussion with palliative care.The son feels that yesterday when the patient was spoken to in Frisian the patient squeezed his hand and desires aggressive treatment. The patient's neuro status is unchanged, totally unresponsive with occasional reflexive twitching of feet B/L. Follow-up with neurology Dr. Pack, guarding any further imaging studies. 11/13: No change in neuro exam. Palliative care following. Family wanting full aggressive care. Palliative care will address early trach PEG 11/14: No improvement in neuro status. Son has not made decisions regarding trach and PEG. Apparently he wants to wait longer to see any improvement 11/15: Remains unresponsive. Neuro exam with extensor posturing-unchanged. Son requesting aggressive care. Continues to have low-grade fever 11/16: Clinically no improvement. Tolerates CPAP. Unable to extubate as patient will not protect airway 11/17: Tolerating C Pap but no change in neuro exam. Hemoglobin noted to be 6.8 hemodynamically stable 11/18: Became tachycardic and hypotensive early a.m., placed on assist control. Otherwise neuro exam remains unchanged 11/19: Continues to spike fever Tmax 102, started on vancomycin and cefepime in addition to Levaquin yesterday. Currently only low-grade fever. Received 2 units of blood for hemoglobin of 5.3. CBC pending at this time. No improvement in neuro exam 11/20: White count is 18.3 today, MAXIMUM TEMPERATURE 103.1. Chest x-ray showing right sided infiltrate. Urine culture with gram-negative rods and Lizet albicans. ID consulted Diflucan added 11/21/16: Tmax 101.5. Bilateral lung infiltrates, R>L but slightly improved. No improvement in neuro exam. ID consulted and following. 11/22/16: No fever. CT chest- moderate to large R pleural effusion, bilateral lung infiltrates. ABX per ID. CXR today shows increasing bilateral infiltrates and effusion right more than left. Almost near complete infiltrates on the right lung [place]. Vaginally worsening creatinine today 1.45 indicating multiorgan failure 11/23/16: Hb 9.8 today after 2U PRBC yesterday. Plan for tracheostomy today. INR normal platelet count 116. Worsening creatinine today is 1.6. UO 550 ml in 24 hours. 1L NS bolus and 75 ml per hour maintenance NS. Started on Dopamine 3 mcg per min to maintain MAP>65 11/24 Patient is on ventilator via trach. Afebrile. On Dopamine 4 mics. Objective Vital Signs Date Time Temp Pulse Resp B/P Pulse Ox O2 Delivery O2 Flow Rate FiO2 11/24/16 06:00 68 11/24/16 04:00 40 11/24/16 04:00 97.7 16 100/58 97 Intake and Output 11/23/16 11/23/16 11/24/16 08:00 16:00 00:00 Intake Total 451 ml 1716 ml 680 ml Output Total 150 ml 275 ml 200 ml Balance 301 ml 1441 ml 480 ml Result Diagram: 11/23/16 0723 11/23/16 0723 Imaging Last Impressions Chest X-Ray 11/23/16 0000 Signed Impressions: Service Date/Time: October 09:09 - CONCLUSION: 1. Interval removal of the endotracheal tube with placement of the tracheostomy. The tracheostomy tip is at the clavicular heads. 2. Persistent bilateral effusions with extensive bilateral airspace disease, unchanged. 3. Nasogastric tube has been removed. Kirit Alcantar MD Chest CT 11/21/16 0000 Signed Impressions: Service Date/Time: Monday, November 21, 2016 22:57 - CONCLUSION: 1. Moderate size right pleural effusion and small left pleural effusion. Right effusion has increased over the last day compared with a recent chest radiograph. 2. Bilateral lung consolidation as above. Differential diagnosis includes pneumonia and aspiration. Emeterio Freire MD Head CT 11/08/16 1657 Signed Impressions: Service Date/Time: Tuesday, November 08, 2016 17:06 - CONCLUSION: Low density seen throughout the posterior circulation regions including the susan and midbrain, cerebellar hemispheres, occipital and posterior medial temporal lobes and right thalamus. This likely represents areas of infarction involving the posterior territory circulation. Jeffery Zhong MD Carotid Artery Ultrasound 11/08/16 0000 Signed Impressions: Service Date/Time: Tuesday, November 08, 2016 22:24 - CONCLUSION: Mild calcified plaque at the carotid bulbs. No evidence of hemodynamically significant carotid stenosis. José Luis Beltran MD Objective Remarks GENERAL: Patient is 86 yo on ventilator via trach. SKIN: Warm and dry. HEAD: Normocephalic. EYES: No scleral icterus. No injection or drainage. NECK: Supple, trachea midline. No JVD or lymphadenopathy. CARDIOVASCULAR: Regular rate and rhythm without murmurs, gallops, or rubs. RESPIRATORY: Breath sounds equal bilaterally. Few coarse BS GASTROINTESTINAL: Abdomen soft, non-tender, nondistended. MUSCULOSKELETAL: No cyanosis, or edema. Neuro: Positive corneal reflex. LIDYA. Negative cough. Negative gag. Extensor posturing in uppers. Downgoing Babinski. 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 She was last seen normal, nearly 24 hours, she was not a candidate for any interventional therapy. Unfortunately, given her age, and the extent of the stroke, her prognosis for any reasonable neurologic function is quite poor, and I do not think that we will be able to improve her outcome at all. Her family expressed wishes for a short course of aggressive medical management. Active problems: Massive posterior circulation ischemic CVA Hypoxic and hypercarbic respiratory failure Severe encephalopathy secondary to stroke Severe sepsis Healthcare associated pneumonia with pleural effusion Acute kidney injury UTI Anemia-acute and chronic Hyperglycemia of critical illness Thrombocytopenia Plan Neuro: Monitor neuro status and avoid sedatives. Neuro is following -11/08 CT brain: Low density seen throughout the posterior circulation regions including the susan and midbrain, cerebellar hemispheres, occipital and posterior medial temporal lobes and right thalamus. This likely represents areas of infarction involving the posterior territory circulation Resp: -Continue with vent support keep sat >92% Vent bundle, Head of bed 30, bronchodilators Wean FiO2 for goal SPO2 greater than 90% --s/p trach 11/23 CVS: Wean off Dopamine monitor HR and BP keep MAP>65mmhg 2-D echo -EF 5560 %, mild aortic mitral and tricuspid regurgitation, No RWMA. Carotid ultrasound-no stenosis GI: -NPO for PEG tube placeemnt today : -Monitor renal function, I/O's, electrolytes replacement as needed. Renal function improving with Cr:1.68 today with UO:725ml in 24 hrs -d/c IVF diurese with Bumex 1mg IV daily ID: -On Zosyn for HCAP and and Diflucan for lizet UTI. -Urine culture 11/18/16 with Lizet albicans and E coli NOT S Levaquin, but S to zosyn -Infectious disease Dr. Wen, follow up on sputum cx, Endo: --Medium dose sliding scale regimen-Continue to monitor Proph: Subcutaneous heparin on hold secondary to thrombocytopenia, anemia.. SCDs for DVT prophylaxis --Start Heparin SQ in 24 hrs post PEG tube placement if H/H, PLT count are stable and no bleeding from trach Protonix for GI prophylaxis -Palliative care is following Dispo: Per Dr. Castro's note 11/19 son wants aggressive care, including 'experimental' therapy Level 3 Kacy Ayala MD Nov 24, 2016 08:27 Kacy Ayala MD Nov 24, 2016 08:27
[2016-11-24] MEDS: BUMETANIDE INJ 1 MG/4 ML VIAL IV PUSH SCH (09:00)
[2016-11-24 09:01] LABS: AUTOMATED NEUTROPHIL # 7.5 TH/MM3 (1.8-7.7); BASOPHIL # 0.1 TH/MM3 (0-0.2); BASOPHIL % 0.8 % (0.0-2.0); EOSINOPHIL # 0.9 TH/MM3 (0-0.4); EOSINOPHIL % 8.9 % (0.0-4.0); HEMATOCRIT 32.2 % (35.0-46.0); LYMPH % 7.7 % (9.0-44.0); LYMPHOCYTE # 0.8 TH/MM3 (1.0-4.8); MEAN CELL VOLUME 78.3 FL (80.0-100.0); MEAN CORPUSCULAR HEMOGLOBIN 25.8 PG (27.0-34.0); MONO % 8.7 % (0.0-8.0); NEUT % 73.9 % (16.0-70.0); PLATELET COUNT 133 TH/MM3 (150-450); RED BLOOD COUNT 4.11 MIL/MM3 (4.00-5.30); RED CELL DISTRIBUTION WIDTH 27.1 % (11.6-17.2); WHITE BLOOD COUNT 10.2 TH/MM3 (4.0-11.0)
[2016-11-24 09:05] LABS: HEMO FLAGS AUTO DIFF
[2016-11-24] MEDS ORDERED: PROPOFOL 200 MG/20 ML AMP IV ONE (09:22)
[2016-11-24 09:30] LABS: BANDS 2 % (0-6); BASOPHILS 1 % (0-2); CORRECTED NUCLEATED RBC 1 /100 WBC (0-0); EOSINOPHILS 15 % (0-4); NEUTROPHIL # MANUAL DIFF 7.8 TH/MM3 (1.8-7.7); OVALOCYTES 1+ (NORMAL); PLATELET ESTIMATE SMEAR LOW (NORMAL); PLATELET MORPHOLOGY NORMAL (NORMAL); POLYS (SEG NEUTROPHILS) 74 % (16-70); SCAN/DIFF FINAL DIFF MANUAL; WBC DIFF SAMPLE 100
[2016-11-24 09:36] LABS: BICARBONATE 22.4 MEQ/L (21.0-32.0); CALCIUM-PROTEIN CORRECTED 8.3 MG/DL (8.5-10.1); POTASSIUM 3.7 MEQ/L (3.5-5.1); TOTAL BILIRUBIN ADULT 0.8 MG/DL (0.2-1.0)
[2016-11-24] MEDS: RESP: ALBUTEROL 2.5 MG/IPRATROPIUM 0.5 MG NEB (SCH) NEB ×3 (09:43→20:49)
--- NOTE | 2016-11-24 09:52 | GIPROC ---
[facility] [address] [facility]. [facility] [place], [address] EGD PROCEDURE REPORT EXAM DATE: 11/24/2016 PATIENT NAME: Maribel Crawford MR #: [id number] BIRTHDATE: 1930 ATTENDING: Colten Choi MD ORDER #: [id number] MATCH MAKER: Malcolm Araujo and Cici Chang STATUS: inpatient INDICATIONS: The patient is a 86 yr old female here for an EGD due to EGD for PEG placement due to dysphagia from respiratory failure and CVA PROCEDURE PERFORMED: EGD w/ biopsy MEDICATIONS: None and Per Anesthesia. TOPICAL ANESTHETIC: CONSENT: The patient understands the risks and benefits of the procedure and understands that these risks include, but are not limited to: sedation, allergic reaction, infection, perforation and/or bleeding. Alternative means of evaluation and treatment include, among others: physical exam, x-rays, and/or surgical intervention. The patient elects to proceed with this endoscopic procedure. medical equipment was checked for proper function. Hand hygiene and appropriate measures for infection prevention was taken. After the risks, benefits and alternatives of the procedure were thoroughly explained, Informed consent was verified, confirmed and timeout was successfully executed by the treatment team. The patient was anesthetized with topical anesthesia and the Pentax [id number] endoscope was introduced through the mouth and advanced to the second portion of the duodenum. Retroflexed views revealed no abnormalities The gastroscope was then slowly withdrawn and removed. STOMACH: There was mild gastritis in the gastric antrum. Edematous. Multiple biopsies were performed. Benign nodule in the antrum this was biopsied. Insufflation was performed in the stomach to assess for indentation and transillumination for PEG placement I was unable to obtain good transillumination and indentation and the abdomen was somewhat tight and as such the PEG placement was aborted. ADVERSE EVENTS: There were no complications. IMPRESSIONS: 1. There was mild gastritis in the gastric antrum; Edematous; multiple biopsies were performed 2. Benign nodule in the antrum this was biopsied 3. Insufflation was performed in the stomach to assess for indentation and transillumination for PEG placement I was unable to obtain good transillumination and indentation and the abdomen was somewhat tight and as such the PEG placement was aborted 4. Retroflexed views revealed no abnormalities RECOMMENDATIONS: 1. Await biopsy results. Biopsy results will not be ready for 7-10 days. If you don't hear from us in two weeks, call our office for biopsy results. 2. Case discussed with attending physician unable to place PEG tube endoscopically will defer to attending for interventional radiology to attempt PEG placement Await biopsies Not much to add from a GI standpoint we will sign off PATIENT CONDITION: stable DISPOSITION: Inpatient REPEAT EXAM: Colten Choi MD eSigned: Colten Choi MD 11/24/2016 9:51 AM cc: PATIENT NAME: Maribel Crawford MR#: [id number]
--- NOTE | 2016-11-24 11:25 | HHI.HCPN ---
Reason for visit a. To assist with evaluation and management of symptoms including: pain; dyspnea; encephalopathy b. To assist medical decision maker(s) with: better understanding of current medical conditions; weighing benefits/burdens of medical treatment options; making medical treatment decisions. . Subjective/Interval History 86 y/o female with devastating posterior circulation stroke, TRACH PLACED . She remains off sedation, unresponsive. No significant change. She seemed to tolerate the trach placement OK yesterday. Gastroenterology was unable to place PEG tube today, and IR will be consulted. No signs of discomfort. Renal function stabilizing, now creatinine 1.61, GFR 30. . . Advance Directives Living Will: Never completed Health Care Surrogate: Never completed Durable Power of Bank Sales And Service Manager: Never completed Advance Directive Specifics Date completed: Advance directives were never completed . Health Care Surrogate(s): There is no known written designation of health care surrogate . Documented care wishes: There is no written documentation of health care goals/preferences. . Objective Vital Signs Date Time Temp Pulse Resp B/P Pulse Ox O2 Delivery O2 Flow Rate FiO2 11/24/16 08:23 96 40 11/24/16 06:00 68 11/24/16 04:00 68 11/24/16 04:00 40 11/24/16 04:00 97.7 68 16 100/58 97 11/24/16 02:12 98 40 11/24/16 02:00 68 11/24/16 00:01 98 40 11/24/16 00:00 40 11/24/16 00:00 66 11/24/16 00:00 97.5 66 15 96/50 98 11/23/16 22:00 68 11/23/16 20:11 98 40 11/23/16 20:00 97.5 64 21 102/56 97 11/23/16 20:00 40 11/23/16 20:00 64 11/23/16 18:00 63 11/23/16 16:00 40 11/23/16 16:00 97.4 66 15 101/55 95 11/23/16 16:00 66 11/23/16 15:39 95 40 11/23/16 14:00 64 11/23/16 12:00 71 11/23/16 12:00 96.2 71 15 101/57 94 11/23/16 12:00 40 Intake & Output 11/24/16 11/24/16 07:00 19:00 Intake Total 1789 ml Output Total 450 ml Balance 1339 ml IV Total 1289 ml Other 500 ml Output Urine Total 450 ml # Bowel Movements 3 Physical Exam CONSTITUTIONAL/GENERAL: This is an adequately nourished patient, intubated, on CPAP; in an MICU bed. Responsiveness limited to decerebrate posturing with noxious stimuli. TUBES/LINES/DRAINS: trach, NG tube; Tejeda catheter; peripheral IVs; CARDIOVASCULAR: Regular rate and rhythm without murmurs, gallops, or rubs. No JVD RESPIRATORY/CHEST: Symmetric, unlabored respirations. Breath sounds equal bilaterally. Coarse breath sounds bilaterally. No wheezes, rales. GASTROINTESTINAL: Abdomen soft, non-tender, nondistended. No hepato-splenomegaly , or palpable masses. No guarding. Bowel sounds hypoactive. GENITOURINARY: Without palpable bladder distension. Tejeda catheter in place. MUSCULOSKELETAL: Extremities without clubbing, cyanosis, or edema. No mottling. NEUROLOGICAL: Does not awaken to loud voice or exam. Unable to follow commands. Decerebrate posturing to noxious stimuli. PSYCHIATRIC: Unable to evaluate due to level of responsiveness . Diagnostic Tests Laboratory Laboratory Tests Test 11/22/16 11/22/16 11/23/16 11/23/16 04:34 12:14 06:49 07:23 White Blood Count 14.7 TH/MM3 13.3 TH/MM3 (4.0-11.0) (4.0-11.0) Red Blood Count 2.83 MIL/MM3 3.87 MIL/MM3 (4.00-5.30) (4.00-5.30) Hemoglobin 6.6 GM/DL 9.8 GM/DL (11.6-15.3) (11.6-15.3) Hematocrit 21.7 % 30.2 % (35.0-46.0) (35.0-46.0) Mean Corpuscular Volume 76.7 FL 78.0 FL (80.0-100.0) (80.0-100.0) Mean Corpuscular Hemoglobin 23.3 PG 25.5 PG (27.0-34.0) (27.0-34.0) Mean Corpuscular Hemoglobin 30.4 % 32.6 % Concent (32.0-36.0) (32.0-36.0) Red Cell Distribution Width 30.5 % 26.6 % (11.6-17.2) (11.6-17.2) Platelet Count 106 TH/MM3 116 TH/MM3 (150-450) (150-450) Mean Platelet Volume 10.2 FL 10.0 FL (7.0-11.0) (7.0-11.0) Neutrophils (%) (Auto) 82.6 % (16.0-70.0) Lymphocytes (%) (Auto) 6.0 % (9.0-44.0) Monocytes (%) (Auto) 6.6 % (0.0-8.0) Eosinophils (%) (Auto) 4.4 % (0.0-4.0) Basophils (%) (Auto) 0.4 % (0.0-2.0) Neutrophils # (Auto) 12.2 TH/MM3 (1.8-7.7) Lymphocytes # (Auto) 0.9 TH/MM3 (1.0-4.8) Monocytes # (Auto) 1.0 TH/MM3 (0-0.9) Eosinophils # (Auto) 0.7 TH/MM3 (0-0.4) Basophils # (Auto) 0.1 TH/MM3 (0-0.2) CBC Comment AUTO DIFF Differential Total Cells 100 Counted Neutrophils % (Manual) 74 % (16-70) Band Neutrophils % 15 % (0-6) Lymphocytes % 4 % (9-44) Monocytes % 4 % (0-8) Eosinophils % 3 % (0-4) Neutrophils # (Manual) 13.1 TH/MM3 (1.8-7.7) Differential Comment FINAL DIFF MANUAL Platelet Estimate LOW (NORMAL) Platelet Morphology Comment NORMAL (NORMAL) Polychromasia 3.3 % (0.0-1.9) Ovalocytes 1+ (NORMAL) Sodium Level 142 MEQ/L 142 MEQ/L (136-145) (136-145) Potassium Level 4.1 MEQ/L 3.8 MEQ/L (3.5-5.1) (3.5-5.1) Chloride Level 110 MEQ/L 110 MEQ/L (98-107) (98-107) Carbon Dioxide Level 24.8 MEQ/L 23.5 MEQ/L (21.0-32.0) (21.0-32.0) Anion Gap 7 MEQ/L (5-15) 9 MEQ/L (5-15) Blood Urea Nitrogen 49 MG/DL (7-18) 50 MG/DL (7-18) Creatinine 1.45 MG/DL 1.68 MG/DL (0.50-1.00) (0.50-1.00) Estimat Glomerular Filtration 34 ML/MIN (>89) 29 ML/MIN (>89) Rate Random Glucose 217 MG/DL 129 MG/DL (74-106) (74-106) Calcium Level 7.3 MG/DL 7.4 MG/DL (8.5-10.1) (8.5-10.1) Protein Corrected Calcium 8.7 MG/DL 8.8 MG/DL (8.5-10.1) (8.5-10.1) Magnesium Level 3.2 MG/DL (1.5-2.5) Total Bilirubin 0.6 MG/DL 0.7 MG/DL (0.2-1.0) (0.2-1.0) Aspartate Amino Transf 78 U/L (15-37) 76 U/L (15-37) (AST/SGOT) Alanine Aminotransferase 18 U/L (10-53) 22 U/L (10-53) (ALT/SGPT) Alkaline Phosphatase 127 U/L 139 U/L (45-117) (45-117) Total Protein 4.6 GM/DL 4.6 GM/DL (6.4-8.2) (6.4-8.2) Albumin 1.3 GM/DL 1.3 GM/DL (3.4-5.0) (3.4-5.0) Blood Type O POSITIVE O POSITIVE Antibody Screen NEGATIVE Crossmatch Leukocyte-Reduced Leukocyte-Reduced Red Blood Red Blood Cells Cells Blood Bank Comment Prothrombin Time 12.8 SEC (9.8-11.6) Prothromb Time International 1.2 RATIO Ratio Test 11/24/16 08:40 White Blood Count 10.2 TH/MM3 (4.0-11.0) Red Blood Count 4.11 MIL/MM3 (4.00-5.30) Hemoglobin 10.6 GM/DL (11.6-15.3) Hematocrit 32.2 % (35.0-46.0) Mean Corpuscular Volume 78.3 FL (80.0-100.0) Mean Corpuscular Hemoglobin 25.8 PG (27.0-34.0) Mean Corpuscular Hemoglobin 33.0 % Concent (32.0-36.0) Red Cell Distribution Width 27.1 % (11.6-17.2) Platelet Count 133 TH/MM3 (150-450) Mean Platelet Volume 9.4 FL (7.0-11.0) Neutrophils (%) (Auto) 73.9 % (16.0-70.0) Lymphocytes (%) (Auto) 7.7 % (9.0-44.0) Monocytes (%) (Auto) 8.7 % (0.0-8.0) Eosinophils (%) (Auto) 8.9 % (0.0-4.0) Basophils (%) (Auto) 0.8 % (0.0-2.0) Neutrophils # (Auto) 7.5 TH/MM3 (1.8-7.7) Lymphocytes # (Auto) 0.8 TH/MM3 (1.0-4.8) Monocytes # (Auto) 0.9 TH/MM3 (0-0.9) Eosinophils # (Auto) 0.9 TH/MM3 (0-0.4) Basophils # (Auto) 0.1 TH/MM3 (0-0.2) CBC Comment AUTO DIFF Differential Total Cells 100 Counted Neutrophils % (Manual) 74 % (16-70) Band Neutrophils % 2 % (0-6) Lymphocytes % 4 % (9-44) Monocytes % 4 % (0-8) Eosinophils % 15 % (0-4) Basophils % 1 % (0-2) Neutrophils # (Manual) 7.8 TH/MM3 (1.8-7.7) Nucleated Red Blood Cells 1 /100 WBC (0-0) Differential Comment FINAL DIFF MANUAL Platelet Estimate LOW (NORMAL) Platelet Morphology Comment NORMAL (NORMAL) Ovalocytes 1+ (NORMAL) Sodium Level 140 MEQ/L (136-145) Potassium Level 3.7 MEQ/L (3.5-5.1) Chloride Level 110 MEQ/L (98-107) Carbon Dioxide Level 22.4 MEQ/L (21.0-32.0) Anion Gap 8 MEQ/L (5-15) Blood Urea Nitrogen 44 MG/DL (7-18) Creatinine 1.61 MG/DL (0.50-1.00) Estimat Glomerular Filtration 30 ML/MIN (>89) Rate Random Glucose 125 MG/DL (74-106) Calcium Level 7.1 MG/DL (8.5-10.1) Protein Corrected Calcium 8.3 MG/DL (8.5-10.1) Total Bilirubin 0.8 MG/DL (0.2-1.0) Aspartate Amino Transf 76 U/L (15-37) (AST/SGOT) Alanine Aminotransferase 20 U/L (10-53) (ALT/SGPT) Alkaline Phosphatase 154 U/L (45-117) Total Protein 4.9 GM/DL (6.4-8.2) Albumin 1.2 GM/DL (3.4-5.0) Result Diagram: 11/24/16 0840 11/24/16 0840 Microbiology Microbiology Date/Time Procedure Status Source Growth 11/21/16 15:20 Aerobic Blood Culture - Preliminary Resulted Blood Peripheral NO GROWTH IN 3 DAYS 11/21/16 15:20 Anaerobic Blood Culture - Preliminary Resulted Blood Peripheral NO GROWTH IN 3 DAYS 11/21/16 15:25 Aerobic Blood Culture - Preliminary Resulted Blood Peripheral NO GROWTH IN 3 DAYS 11/21/16 15:25 Anaerobic Blood Culture - Preliminary Resulted Blood Peripheral NO GROWTH IN 3 DAYS 11/23/16 08:30 Gram Stain - Final Resulted Sputum Endotracheal 11/23/16 08:30 Sputum Culture - Preliminary Resulted Sputum Endotracheal RARE GROWTH NORMAL RESPIRATORY STACY ... Imaging Last Impressions Chest X-Ray 11/23/16 0000 Signed Impressions: Service Date/Time: October 09:09 - CONCLUSION: 1. Interval removal of the endotracheal tube with placement of the tracheostomy. The tracheostomy tip is at the clavicular heads. 2. Persistent bilateral effusions with extensive bilateral airspace disease, unchanged. 3. Nasogastric tube has been removed. Kirit Alcantar MD Chest CT 11/21/16 0000 Signed Impressions: Service Date/Time: Monday, November 21, 2016 22:57 - CONCLUSION: 1. Moderate size right pleural effusion and small left pleural effusion. Right effusion has increased over the last day compared with a recent chest radiograph. 2. Bilateral lung consolidation as above. Differential diagnosis includes pneumonia and aspiration. Emeterio Freire MD Head CT 11/08/16 1657 Signed Impressions: Service Date/Time: Tuesday, November 08, 2016 17:06 - CONCLUSION: Low density seen throughout the posterior circulation regions including the susan and midbrain, cerebellar hemispheres, occipital and posterior medial temporal lobes and right thalamus. This likely represents areas of infarction involving the posterior territory circulation. Jeffery Zhong MD Carotid Artery Ultrasound 11/08/16 0000 Signed Impressions: Service Date/Time: Tuesday, November 08, 2016 22:24 - CONCLUSION: Mild calcified plaque at the carotid bulbs. No evidence of hemodynamically significant carotid stenosis. José Luis Beltran MD Procedures * Intubation/mechanical ventilation * Trach 11/23/16 . Assessment and Plan Disease Oriented Problem List: (1) CVA (cerebral vascular accident) Comment: Very large posterior circulation stroke. No signs of neurological recovery. Prognosis grim. . . (2) Rhabdomyolysis (3) Dementia Comment: Family reports at least a 7 year history of dementia. . (4) Thrombocytopenia (5) Malnutrition Comment: Presenting albumin level was 2.8 . (6) Anemia (7) Urinary tract infection Comment: Cx of 11/08 --> E coli and Enterococcus . (8) Pneumonia Comment: Sputum cx of 11/12 growing Staph aureus. . Symptom Scale: (1) Pain 0-10 Scale: Unable to quantify Comment: Patient had no known prior pain syndromes. Current possible sources of pain include prolonged bedbound status; orotracheal intubation; vascular access catheters; Tejeda catheter. . (2) Dyspnea 0-10 Scale: Unable to quantify Comment: Dyspnea currently controlled with mechanical ventilation. . (3) Encephalopathy 0-10 Scale: Unable to quantify Comment: Patient was minimally responsive on arrival. No evidence of neurologic recovery. Off all sedation. Pertinent Non-Medical Issues Psychosocial: Normally lives with her sister. Her son lives by visits frequently. Spiritual: Patient is a Judaism. Blood products should not be given without the son's permission ---> her son DID consent to blood transfusion . Legal: No advance directives. Son would be the appropriate proxy health care decision-maker under the [place] statutes hierarchy. Ethical issues impacting care: Patient is incapacitated to make her own health care decisions and is not expected to regain such capacity . Important Contacts Wyatt Crawford (son and healthcare proxy) [phone] . Prognosis This is an 86-year-old female who was suffered a fairly massive posterior circulation stroke. This is on top of at least a seven-year history of dementia with the patient was already requiring assistance with most of her ADLs. There is a high risk of during this hospitalization. Should she survive, she will require tracheostomy to protect her airway as well as ongoing artificial nutrition. She will not have meaningful interaction with her environment. The patient would certainly be eligible for hospice services at such time that family believes the patient's goals would best be honored by transitioning to "comfort measures only." . Code Status: No Code Plan == DO NOT RESUSCITATE, per patient's son on 11/23/16 == DECISION-MAKING: The patient lacks capacity for decision-making, and she will not regain capacity. Her son, Wyatt Crawford, is the legal health care proxy. == GOALS: The patient is a Judaism. No blood products should be given without the son's permission; he DID consent to transfusion on 11/18 and . He said on 11/22/16 that he wanted trach and PEG, and then probable transfer to long care nursing (if she survives to that point). On 11/23/16: son understands that pt's renal function is worsening. Son wants pt to be DNR, so she will naturally "when God calls her home." == SYMPTOMS: It is difficult to know when she has pain or dyspnea, and we will continue to observe closely for signs of suffering. Certainly her bedbound status and recent procedures could be painful. No new med recommendations at this time. == Palliative care will continue to follow to assist with symptom management and to help clarify goals of medical treatment as the clinical course evolves. . Time Spent Total Floor Time (mins): 26 Face to Face Time (mins): 5 >50% Counseling/Coord of Care: Yes (d/w RN and direct support staff) Attestation To help prompt me to consider important information that might be impacting today's encounter and assessment, information from prior notes written by myself or my colleagues may have been "brought forward" into today's note. My signature on this note, however, is an attestation that I personally performed the exam, history, and/or decision-making noted today, and, unless otherwise indicated, the interactions with patient, family, and staff as well as the review of records all occurred today. I also attest that the listed assessment and stated plan reflect my best clinical judgment today based on the combination of historical information, prior notes, and today's exam/ interactions. When time spent is documented, it refers only to time spent today by the signer, or if indicated, combined time spent today by collaborating physician/nurse practitioner. Bailey Garay MD Nov 24, 2016 11:25
[2016-11-24] MEDS ORDERED: CALCIUM GLUCONATE INJ 1 GM in SODIUM CHLORIDE 0.9% INJ 100 ML IV ONE (12:30)
[2016-11-24] MEDS: FLUCONAZOLE 200 MG PREMIX BAG 100 ML IV SCH (15:55)
[2016-11-24] MEDS ORDERED: MIDAZOLAM HCL 5 MG/ML VIAL (1 ML) ONE (21:16)
[2016-11-25] VITALS (19 sets, daily range): BP systolic 97–130; BP diastolic 52–65; PULSE 70–91; RESP 15–20; TEMP 96.3–98.9; O2SAT 89–100
[2016-11-25] MEDS: HIGH DOSE INSULIN NOVOLIN REGULAR SUPPLEMENTAL SCALE SQ SCH ×7 (04:00→23:46)
[2016-11-25] MEDS: RESP: ALBUTEROL 2.5 MG/IPRATROPIUM 0.5 MG NEB (SCH) NEB ×4 (04:04→20:30)
[2016-11-25] MEDS: PIPERACIL-TAZO 3.375 GM PREMIX 50 ML IV SCH ×4 (05:30→20:51)
[2016-11-25] MEDS: FREE WATER G-TUBE SCH ×4 (05:30→23:46)
[2016-11-25 06:49] LABS: AUTOMATED NEUTROPHIL # 5.3 TH/MM3 (1.8-7.7); BASOPHIL % 0.5 % (0.0-2.0); EOSINOPHIL # 0.8 TH/MM3 (0-0.4); EOSINOPHIL % 10.5 % (0.0-4.0); HEMATOCRIT 30.8 % (35.0-46.0); LYMPH % 8.5 % (9.0-44.0); LYMPHOCYTE # 0.6 TH/MM3 (1.0-4.8); MEAN CELL VOLUME 79.5 FL (80.0-100.0); MEAN CORPUSCULAR HEMOGLOBIN 25.1 PG (27.0-34.0); MEAN CORPUSCULAR HGB CONC 31.5 % (32.0-36.0); MONO % 9.2 % (0.0-8.0); NEUT % 71.3 % (16.0-70.0); PLATELET COUNT 124 TH/MM3 (150-450); RED BLOOD COUNT 3.87 MIL/MM3 (4.00-5.30); RED CELL DISTRIBUTION WIDTH 28.3 % (11.6-17.2); WHITE BLOOD COUNT 7.4 TH/MM3 (4.0-11.0)
[2016-11-25 07:12] LABS: HEMO FLAGS AUTO DIFF
[2016-11-25 07:32] LABS: BICARBONATE 19.7 MEQ/L (21.0-32.0); CALCIUM-PROTEIN CORRECTED 8.8 MG/DL (8.5-10.1); POTASSIUM 3.3 MEQ/L (3.5-5.1); TOTAL BILIRUBIN ADULT 0.8 MG/DL (0.2-1.0)
--- NOTE | 2016-11-25 08:05 | HHI.CCPN ---
Subjective Remarks/Hospital Course This is an 86yF with per report no other past medical history who presented to the ER after she was found unresponsive in her bed. According to ER reports, her family saw her normal last night when she had a fall, with unknown LOC. At that point, he helped her back to bed. However, this morning she did not wake up. On arrival to the ER, she was unresponsive only withdrawing to pain. she was intubated for airway protection and a poor GCS. CT head demonstrated massive posterior-circulation ischemic stroke. The patient is currently intubated and unresponsive and cannot provide any additional history. 11/09: No acute changes overnight. Palliative care team has consult with the family regarding goals of care. Currently the patient's sedation fentanyl infusion has been turned off without any response from patient. The patient notably does withdrawal to pain. 11/10: No change in neurological status. E1V1M4. The patient withdraws to pain 4 extremities. The patient currently on no sedation, fentanyl infusion discontinued yesterday. Tube feeds were initiated. The patient's urine culture grew back Escherichia coli, the patient was started on antibiotics. Extensive discussion with son regarding patient's neurological status, son Wyatt has had extensive discussion with palliative care.The son feels that yesterday when the patient was spoken to in [place] the patient squeezed his hand and desires aggressive treatment. The patient's neuro status is unchanged, totally unresponsive with occasional reflexive twitching of feet B/L. Follow-up with neurology Dr. Pack, guarding any further imaging studies. 11/13: No change in neuro exam. Palliative care following. Family wanting full aggressive care. Palliative care will address early trach PEG 11/14: No improvement in neuro status. Son has not made decisions regarding trach and PEG. Apparently he wants to wait longer to see any improvement 11/15: Remains unresponsive. Neuro exam with extensor posturing-unchanged. Son requesting aggressive care. Continues to have low-grade fever 11/16: Clinically no improvement. Tolerates CPAP. Unable to extubate as patient will not protect airway 11/17: Tolerating C Pap but no change in neuro exam. Hemoglobin noted to be 6.8 hemodynamically stable 11/18: Became tachycardic and hypotensive early a.m., placed on assist control. Otherwise neuro exam remains unchanged 11/19: Continues to spike fever Tmax 102, started on vancomycin and cefepime in addition to Levaquin yesterday. Currently only low-grade fever. Received 2 units of blood for hemoglobin of 5.3. CBC pending at this time. No improvement in neuro exam 11/20: White count is 18.3 today, MAXIMUM TEMPERATURE 103.1. Chest x-ray showing right sided infiltrate. Urine culture with gram-negative rods and Lizet albicans. ID consulted Diflucan added 11/21/16: Tmax 101.5. Bilateral lung infiltrates, R>L but slightly improved. No improvement in neuro exam. ID consulted and following. 11/22/16: No fever. CT chest- moderate to large R pleural effusion, bilateral lung infiltrates. ABX per ID. CXR today shows increasing bilateral infiltrates and effusion right more than left. Almost near complete infiltrates on the right lung [place]. Vaginally worsening creatinine today 1.45 indicating multiorgan failure 11/23/16: Hb 9.8 today after 2U PRBC yesterday. Plan for tracheostomy today. INR normal platelet count 116. Worsening creatinine today is 1.6. UO 550 ml in 24 hours. 1L NS bolus and 75 ml per hour maintenance NS. Started on Dopamine 3 mcg per min to maintain MAP>65 11/24 Patient is on ventilator via trach. Afebrile. On Dopamine 4 mics. 11/25 No acute events overnight. s/p EGD yesterday showed mild gastritis unable to place PEG tube endoscopically. Remains on Dopamine 4 mics. On no sedation unresponsive. Objective Vital Signs Date Time Temp Pulse Resp B/P Pulse Ox O2 Delivery O2 Flow Rate FiO2 11/25/16 06:00 70 11/25/16 04:18 98 40 11/25/16 04:00 96.3 15 97/52 Intake and Output 11/24/16 11/24/16 11/25/16 08:00 16:00 00:00 Intake Total 1109 ml 1000 ml 995 ml Output Total 250 ml 1000 ml 750 ml Balance 859 ml 0 ml 245 ml Result Diagram: 11/25/16 0606 11/25/16 0606 Other Results Laboratory Tests Test 11/24/16 11/25/16 08:40 06:06 White Blood Count 10.2 TH/MM3 7.4 TH/MM3 Red Blood Count 4.11 MIL/MM3 3.87 MIL/MM3 Hemoglobin 10.6 GM/DL 9.7 GM/DL Hematocrit 32.2 % 30.8 % Mean Corpuscular Volume 78.3 FL 79.5 FL Mean Corpuscular Hemoglobin 25.8 PG 25.1 PG Mean Corpuscular Hemoglobin 33.0 % 31.5 % Concent Red Cell Distribution Width 27.1 % 28.3 % Platelet Count 133 TH/MM3 124 TH/MM3 Mean Platelet Volume 9.4 FL 9.2 FL Neutrophils (%) (Auto) 73.9 % 71.3 % Lymphocytes (%) (Auto) 7.7 % 8.5 % Monocytes (%) (Auto) 8.7 % 9.2 % Eosinophils (%) (Auto) 8.9 % 10.5 % Basophils (%) (Auto) 0.8 % 0.5 % Neutrophils # (Auto) 7.5 TH/MM3 5.3 TH/MM3 Lymphocytes # (Auto) 0.8 TH/MM3 0.6 TH/MM3 Monocytes # (Auto) 0.9 TH/MM3 0.7 TH/MM3 Eosinophils # (Auto) 0.9 TH/MM3 0.8 TH/MM3 Basophils # (Auto) 0.1 TH/MM3 0.0 TH/MM3 CBC Comment AUTO DIFF AUTO DIFF Differential Total Cells 100 Counted Neutrophils % (Manual) 74 % Band Neutrophils % 2 % Lymphocytes % 4 % Monocytes % 4 % Eosinophils % 15 % Basophils % 1 % Neutrophils # (Manual) 7.8 TH/MM3 Nucleated Red Blood Cells 1 /100 WBC Differential Comment FINAL DIFF MANUAL Platelet Estimate LOW Platelet Morphology Comment NORMAL Ovalocytes 1+ Sodium Level 140 MEQ/L 141 MEQ/L Potassium Level 3.7 MEQ/L 3.3 MEQ/L Chloride Level 110 MEQ/L 109 MEQ/L Carbon Dioxide Level 22.4 MEQ/L 19.7 MEQ/L Anion Gap 8 MEQ/L 12 MEQ/L Blood Urea Nitrogen 44 MG/DL 41 MG/DL Creatinine 1.61 MG/DL 1.78 MG/DL Estimat Glomerular Filtration 30 ML/MIN 27 ML/MIN Rate Random Glucose 125 MG/DL 176 MG/DL Calcium Level 7.1 MG/DL 7.3 MG/DL Protein Corrected Calcium 8.3 MG/DL 8.8 MG/DL Total Bilirubin 0.8 MG/DL 0.8 MG/DL Aspartate Amino Transf 76 U/L 61 U/L (AST/SGOT) Alanine Aminotransferase 20 U/L 17 U/L (ALT/SGPT) Alkaline Phosphatase 154 U/L 136 U/L Total Protein 4.9 GM/DL 4.5 GM/DL Albumin 1.2 GM/DL 1.1 GM/DL Imaging Last Impressions Chest X-Ray 11/23/16 0000 Signed Impressions: Service Date/Time: October 09:09 - CONCLUSION: 1. Interval removal of the endotracheal tube with placement of the tracheostomy. The tracheostomy tip is at the clavicular heads. 2. Persistent bilateral effusions with extensive bilateral airspace disease, unchanged. 3. Nasogastric tube has been removed. Kirit Alcantar MD Chest CT 11/21/16 0000 Signed Impressions: Service Date/Time: Monday, November 21, 2016 22:57 - CONCLUSION: 1. Moderate size right pleural effusion and small left pleural effusion. Right effusion has increased over the last day compared with a recent chest radiograph. 2. Bilateral lung consolidation as above. Differential diagnosis includes pneumonia and aspiration. Emeterio Freire MD Head CT 11/08/16 1657 Signed Impressions: Service Date/Time: Tuesday, November 08, 2016 17:06 - CONCLUSION: Low density seen throughout the posterior circulation regions including the susan and midbrain, cerebellar hemispheres, occipital and posterior medial temporal lobes and right thalamus. This likely represents areas of infarction involving the posterior territory circulation. Jeffery Zhong MD Carotid Artery Ultrasound 11/08/16 0000 Signed Impressions: Service Date/Time: Tuesday, November 08, 2016 22:24 - CONCLUSION: Mild calcified plaque at the carotid bulbs. No evidence of hemodynamically significant carotid stenosis. José Luis Beltran MD Objective Remarks GENERAL: Patient is 86 yo on ventilator via trach. SKIN: Warm and dry. HEAD: Normocephalic. EYES: No scleral icterus. No injection or drainage. NECK: Supple, trachea midline. No JVD or lymphadenopathy. CARDIOVASCULAR: Regular rate and rhythm without murmurs, gallops, or rubs. RESPIRATORY: Breath sounds equal bilaterally. Few coarse BS GASTROINTESTINAL: Abdomen soft, non-tender, nondistended. MUSCULOSKELETAL: No cyanosis, or edema. Neuro: Positive corneal reflex. LIDYA. Negative cough. Negative gag. Extensor posturing in uppers. Downgoing Babinski. 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 She was last seen normal, nearly 24 hours, she was not a candidate for any interventional therapy. Unfortunately, given her age, and the extent of the stroke, her prognosis for any reasonable neurologic function is quite poor, and I do not think that we will be able to improve her outcome at all. Her family expressed wishes for a short course of aggressive medical management. Active problems: Massive posterior circulation ischemic CVA Hypoxic and hypercarbic respiratory failure Severe encephalopathy secondary to stroke Severe sepsis Healthcare associated pneumonia with pleural effusion Acute kidney injury UTI Anemia-acute and chronic Hyperglycemia of critical illness Thrombocytopenia Plan Neuro: On no sedation Monitor neuro status and avoid sedatives. Neuro is following -11/08 CT brain: Low density seen throughout the posterior circulation regions including the susan and midbrain, cerebellar hemispheres, occipital and posterior medial temporal lobes and right thalamus. This likely represents areas of infarction involving the posterior territory circulation Resp: -Continue with vent support keep sat >92% Vent bundle, Head of bed 30, bronchodilators -s/p trach 11/23, pulm toilet, trach care CVS: Wean off Dopamine monitor HR and BP keep MAP>65mmhg 2-D echo -EF 5560 %, mild aortic mitral and tricuspid regurgitation, No RWMA. Carotid ultrasound-no stenosis GI: -Continue with TF-Jevity 1.5 with goal rate 45 ml/hr -s/p EGD yesterday showed mild gastritis unable to place PEG tube endoscopically. IR consulted to place PEG tube. : -Monitor renal function, I/O's, electrolytes replacement as needed. - Cr: 1.75 today from 1.68 UO increased 1975ml in 24 hrs post diuretics. -On Bumex 1mg IV daily -On Free water 250ml Q6 monitor sodium level. ID: -On Zosyn for HCAP and and Diflucan for lizet UTI. -Urine culture 11/18/16 with Lizet albicans and E coli NOT S Levaquin, but S to zosyn -Infectious disease Dr. Wen, follow up on sputum cx, Endo: --Medium dose sliding scale regimen-Continue to monitor Proph: Subcutaneous heparin on hold secondary to thrombocytopenia, anemia.. SCDs for DVT prophylaxis Resume heparin SQ after PEG tube placement. Protonix for GI prophylaxis -Palliative care is following IV access: Peripheral IV's, place PICC line- cleared by ID- Dr. Wen Level 3 Kacy Ayala MD Nov 25, 2016 08:05
[2016-11-25] MEDS: SODIUM CHLORIDE 0.9% FLUSH 5 ML FLUSH IV FLUSH SCH ×2 (09:00→20:52)
[2016-11-25 09:05] LABS: BANDS 3 % (0-6); BASOPHILS 1 % (0-2); CORRECTED NUCLEATED RBC 1 /100 WBC (0-0); EOSINOPHILS 10 % (0-4); MYELOCYTES 1 % (0-0); NEUTROPHIL # MANUAL DIFF 5.4 TH/MM3 (1.8-7.7); POLYS (SEG NEUTROPHILS) 69 % (16-70); WBC DIFF SAMPLE 100
[2016-11-25 09:08] LABS: PLATELET ESTIMATE SMEAR LOW (NORMAL); PLATELET MORPHOLOGY NORMAL (NORMAL); POLYCHROMASIA 2.3 % (0.0-1.9); SCAN/DIFF FINAL DIFF MANUAL
[2016-11-25] MEDS: DOCUSATE SODIUM 100 MG/10 ML UDC G-TUBE SCH ×2 (09:25→20:51)
[2016-11-25] MEDS: FERROUS SULFATE 300 MG /5ML UDC PO SCH ×2 (09:25→20:51)
[2016-11-25] MEDS: PANTOPRAZOLE SODIUM 40 MG VIAL IV SCH (09:25)
[2016-11-25] MEDS: ARTIFICIAL TEARS OPTH SOLN 15 ML BTL EACH EYE SCH ×3 (09:26→18:00)
[2016-11-25] MEDS: BUMETANIDE INJ 1 MG/4 ML VIAL IV PUSH SCH (09:26)
[2016-11-25] MEDS: CHLORHEXIDINE 0.12% (ORAL KIT) 15 ML CUP MT SCH ×2 (09:28→20:00)
[2016-11-25] MEDS ORDERED: SODIUM CHLOR 0.9% 250 ML INJ 250 ML IV ONE (14:15)
--- NOTE | 2016-11-25 14:46 | RADRPT ---
EXAM DATE/TIME: 11/25/2016 14:16 [facility] COMPARISON: CHEST SINGLE AP, November 23, 2016, 9:09. INDICATIONS : Shortness of breath MEDICAL HISTORY : None. SURGICAL HISTORY : None. ENCOUNTER: Subsequent ACUITY: 2 weeks PAIN SCORE: Non-responsive. LOCATION: Bilateral chest FINDINGS: Tracheostomy tube and nasogastric tube are in good position. There is increasing interstitial edema with moderate sized left pleural effusion. There is no pneumothorax. CONCLUSION: Increasing congestive failure and left pleural effusion. Mack Cao MD FACR on November 25, 2016 at 14:43 Board Certified Radiologist. This report was verified electronically.
[2016-11-25] MEDS: FLUCONAZOLE 200 MG PREMIX BAG 100 ML IV SCH (16:27)
[2016-11-26] VITALS (17 sets, daily range): BP systolic 101–143; BP diastolic 51–59; PULSE 72–86; RESP 15; TEMP 97.9–98.5; O2SAT 90–98
[2016-11-26] MEDS: CHLORHEXIDINE GLUCONATE 2 % 1 PACK (2 CLOTHS) TOP SCH (04:00)
[2016-11-26] MEDS: RESP: ALBUTEROL 2.5 MG/IPRATROPIUM 0.5 MG NEB (SCH) NEB ×4 (04:29→20:02)
[2016-11-26] MEDS: HIGH DOSE INSULIN NOVOLIN REGULAR SUPPLEMENTAL SCALE SQ SCH ×5 (05:06→23:01)
[2016-11-26] MEDS: PIPERACIL-TAZO 3.375 GM PREMIX 50 ML IV SCH ×4 (05:06→21:07)
[2016-11-26] MEDS: FREE WATER G-TUBE SCH ×4 (05:07→23:01)
[2016-11-26 05:41] LABS: AUTOMATED NEUTROPHIL # 4.5 TH/MM3 (1.8-7.7); BASOPHIL % 0.4 % (0.0-2.0); EOSINOPHIL # 0.5 TH/MM3 (0-0.4); EOSINOPHIL % 8.3 % (0.0-4.0); HEMATOCRIT 27.2 % (35.0-46.0); LYMPH % 8.6 % (9.0-44.0); LYMPHOCYTE # 0.5 TH/MM3 (1.0-4.8); MEAN CELL VOLUME 80.9 FL (80.0-100.0); MEAN CORPUSCULAR HEMOGLOBIN 25.3 PG (27.0-34.0); MEAN CORPUSCULAR HGB CONC 31.3 % (32.0-36.0); MONO % 10.6 % (0.0-8.0); NEUT % 72.1 % (16.0-70.0); PLATELET COUNT 131 TH/MM3 (150-450); RED BLOOD COUNT 3.37 MIL/MM3 (4.00-5.30); RED CELL DISTRIBUTION WIDTH 28.4 % (11.6-17.2); WHITE BLOOD COUNT 6.2 TH/MM3 (4.0-11.0)
[2016-11-26 05:44] LABS: HEMO FLAGS AUTO DIFF
[2016-11-26 06:08] LABS: OVALOCYTES 1+ (NORMAL); SCAN/DIFF AUTO DIFF CONFIRMED
[2016-11-26 06:26] LABS: BICARBONATE 20.2 MEQ/L (21.0-32.0); POTASSIUM 3.5 MEQ/L (3.5-5.1)
[2016-11-26 06:53] LABS: CALCIUM-PROTEIN CORRECTED 8.8 MG/DL (8.5-10.1)
[2016-11-26] MEDS: CHLORHEXIDINE 0.12% (ORAL KIT) 15 ML CUP MT SCH ×2 (08:00→20:09)
--- NOTE | 2016-11-26 08:22 | HHI.CCPN ---
Subjective Remarks/Hospital Course This is an 86yF with per report no other past medical history who presented to the ER after she was found unresponsive in her bed. According to ER reports, her family saw her normal last night when she had a fall, with unknown LOC. At that point, he helped her back to bed. However, this morning she did not wake up. On arrival to the ER, she was unresponsive only withdrawing to pain. she was intubated for airway protection and a poor GCS. CT head demonstrated massive posterior-circulation ischemic stroke. The patient is currently intubated and unresponsive and cannot provide any additional history. 11/09: No acute changes overnight. Palliative care team has consult with the family regarding goals of care. Currently the patient's sedation fentanyl infusion has been turned off without any response from patient. The patient notably does withdrawal to pain. 11/10: No change in neurological status. E1V1M4. The patient withdraws to pain 4 extremities. The patient currently on no sedation, fentanyl infusion discontinued yesterday. Tube feeds were initiated. The patient's urine culture grew back Escherichia coli, the patient was started on antibiotics. Extensive discussion with son regarding patient's neurological status, son Wyatt has had extensive discussion with palliative care.The son feels that yesterday when the patient was spoken to in [place] the patient squeezed his hand and desires aggressive treatment. The patient's neuro status is unchanged, totally unresponsive with occasional reflexive twitching of feet B/L. Follow-up with neurology Dr. Pcak, guarding any further imaging studies. 11/13: No change in neuro exam. Palliative care following. Family wanting full aggressive care. Palliative care will address early trach PEG 11/14: No improvement in neuro status. Son has not made decisions regarding trach and PEG. Apparently he wants to wait longer to see any improvement 11/15: Remains unresponsive. Neuro exam with extensor posturing-unchanged. Son requesting aggressive care. Continues to have low-grade fever 11/16: Clinically no improvement. Tolerates CPAP. Unable to extubate as patient will not protect airway 11/17: Tolerating C Pap but no change in neuro exam. Hemoglobin noted to be 6.8 hemodynamically stable 11/18: Became tachycardic and hypotensive early a.m., placed on assist control. Otherwise neuro exam remains unchanged 11/19: Continues to spike fever Tmax 102, started on vancomycin and cefepime in addition to Levaquin yesterday. Currently only low-grade fever. Received 2 units of blood for hemoglobin of 5.3. CBC pending at this time. No improvement in neuro exam 11/20: White count is 18.3 today, MAXIMUM TEMPERATURE 103.1. Chest x-ray showing right sided infiltrate. Urine culture with gram-negative rods and Lizet albicans. ID consulted Diflucan added 11/21/16: Tmax 101.5. Bilateral lung infiltrates, R>L but slightly improved. No improvement in neuro exam. ID consulted and following. 11/22/16: No fever. CT chest- moderate to large R pleural effusion, bilateral lung infiltrates. ABX per ID. CXR today shows increasing bilateral infiltrates and effusion right more than left. Almost near complete infiltrates on the right lung [place]. Vaginally worsening creatinine today 1.45 indicating multiorgan failure 11/23/16: Hb 9.8 today after 2U PRBC yesterday. Plan for tracheostomy today. INR normal platelet count 116. Worsening creatinine today is 1.6. UO 550 ml in 24 hours. 1L NS bolus and 75 ml per hour maintenance NS. Started on Dopamine 3 mcg per min to maintain MAP>65 11/24 Patient is on ventilator via trach. Afebrile. On Dopamine 4 mics. 11/25 No acute events overnight. s/p EGD yesterday showed mild gastritis unable to place PEG tube endoscopically. Remains on Dopamine 4 mics. On no sedation unresponsive. 11/26 No acute events overnight. On CPAP with PS 20, PEEP: 5 and FIO2 40%. Afebrile. Off Dopamine. Afebrile. Objective Vital Signs Date Time Temp Pulse Resp B/P Pulse Ox O2 Delivery O2 Flow Rate FiO2 11/26/16 08:03 97 40 11/26/16 06:00 85 11/26/16 04:00 98.5 15 101/51 Intake and Output 11/25/16 11/25/16 11/26/16 08:00 16:00 00:00 Intake Total 404 ml 993 ml 522 ml Output Total 225 ml 1011 ml 200 ml Balance 179 ml -18 ml 322 ml Result Diagram: 11/26/16 0429 11/26/16 0429 Other Results Laboratory Tests Test 11/26/16 04:29 White Blood Count 6.2 TH/MM3 Red Blood Count 3.37 MIL/MM3 Hemoglobin 8.5 GM/DL Hematocrit 27.2 % Mean Corpuscular Volume 80.9 FL Mean Corpuscular Hemoglobin 25.3 PG Mean Corpuscular Hemoglobin 31.3 % Concent Red Cell Distribution Width 28.4 % Platelet Count 131 TH/MM3 Mean Platelet Volume 9.2 FL Neutrophils (%) (Auto) 72.1 % Lymphocytes (%) (Auto) 8.6 % Monocytes (%) (Auto) 10.6 % Eosinophils (%) (Auto) 8.3 % Basophils (%) (Auto) 0.4 % Neutrophils # (Auto) 4.5 TH/MM3 Lymphocytes # (Auto) 0.5 TH/MM3 Monocytes # (Auto) 0.7 TH/MM3 Eosinophils # (Auto) 0.5 TH/MM3 Basophils # (Auto) 0.0 TH/MM3 CBC Comment AUTO DIFF Differential Comment AUTO DIFF CONFIRMED Ovalocytes 1+ Sodium Level 141 MEQ/L Potassium Level 3.5 MEQ/L Chloride Level 109 MEQ/L Carbon Dioxide Level 20.2 MEQ/L Anion Gap 12 MEQ/L Blood Urea Nitrogen 45 MG/DL Creatinine 2.18 MG/DL Estimat Glomerular Filtration 21 ML/MIN Rate Random Glucose 188 MG/DL Calcium Level 7.2 MG/DL Protein Corrected Calcium 8.8 MG/DL Total Protein 4.3 GM/DL Imaging Last Impressions Chest X-Ray 11/25/16 0000 Signed Impressions: Service Date/Time: Friday, November 25, 2016 14:16 - CONCLUSION: Increasing congestive failure and left pleural effusion. Mack Cao MD FACR Chest CT 11/21/16 0000 Signed Impressions: Service Date/Time: Monday, November 21, 2016 22:57 - CONCLUSION: 1. Moderate size right pleural effusion and small left pleural effusion. Right effusion has increased over the last day compared with a recent chest radiograph. 2. Bilateral lung consolidation as above. Differential diagnosis includes pneumonia and aspiration. Emeterio Freire MD Head CT 11/08/16 1657 Signed Impressions: Service Date/Time: Tuesday, November 08, 2016 17:06 - CONCLUSION: Low density seen throughout the posterior circulation regions including the susan and midbrain, cerebellar hemispheres, occipital and posterior medial temporal lobes and right thalamus. This likely represents areas of infarction involving the posterior territory circulation. Jeffery Zhong MD Carotid Artery Ultrasound 11/08/16 0000 Signed Impressions: Service Date/Time: Tuesday, November 08, 2016 22:24 - CONCLUSION: Mild calcified plaque at the carotid bulbs. No evidence of hemodynamically significant carotid stenosis. José Luis Beltran MD Objective Remarks GENERAL: Patient is 86 yo on ventilator via trach. SKIN: Warm and dry. HEAD: Normocephalic. EYES: No scleral icterus. No injection or drainage. NECK: Supple, trachea midline. No JVD or lymphadenopathy. CARDIOVASCULAR: Regular rate and rhythm without murmurs, gallops, or rubs. RESPIRATORY: Breath sounds equal bilaterally. Few coarse BS GASTROINTESTINAL: Abdomen soft, non-tender, nondistended. MUSCULOSKELETAL: No cyanosis, or edema. Neuro: Positive corneal reflex. LIDYA. Negative cough. Negative gag. Extensor posturing in uppers. Downgoing Babinski. 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 She was last seen normal, nearly 24 hours, she was not a candidate for any interventional therapy. Unfortunately, given her age, and the extent of the stroke, her prognosis for any reasonable neurologic function is quite poor, and I do not think that we will be able to improve her outcome at all. Her family expressed wishes for a short course of aggressive medical management. Active problems: Massive posterior circulation ischemic CVA Hypoxic and hypercarbic respiratory failure Severe encephalopathy secondary to stroke Severe sepsis Healthcare associated pneumonia with pleural effusion Acute kidney injury UTI Anemia-acute and chronic Hyperglycemia of critical illness Thrombocytopenia Plan Neuro: On no sedation Monitor neuro status and avoid sedatives. Neuro is following -11/08 CT brain: Low density seen throughout the posterior circulation regions including the susan and midbrain, cerebellar hemispheres, occipital and posterior medial temporal lobes and right thalamus. This likely represents areas of infarction involving the posterior territory circulation Resp: -Continue with vent support keep sat >92% Vent bundle, Head of bed 30, bronchodilators -s/p trach 11/23, pulm toilet, trach care -SBT daily as lia CVS: Off Dopamine monitor HR and BP keep MAP>65mmhg 2-D echo -EF 5560 %, mild aortic mitral and tricuspid regurgitation, No RWMA. Carotid ultrasound-no stenosis GI: -Continue with TF-Jevity 1.5 with goal rate 45 ml/hr -s/p EGD yesterday showed mild gastritis unable to place PEG tube endoscopically. IR consulted to place PEG tube tomorrow : -Monitor renal function, I/O's, electrolytes replacement as needed. - Renal function slightly worse today with Cr: 2.1 from 1.78, UO: 1400ml in 24hrs -On Bumex 1mg IV daily -On Free water 250ml Q6 monitor sodium level. ID: -On Zosyn for HCAP and and Diflucan for lizet UTI. -Urine culture 11/18/16 with Lizet albicans and E coli NOT S Levaquin, but S to zosyn -Infectious disease Dr. Wen, follow up on sputum cx 11/23: nl resp erica Endo: --Medium dose sliding scale regimen- Proph: Subcutaneous heparin on hold secondary to thrombocytopenia, anemia.. SCDs for DVT prophylaxis Resume heparin SQ after PEG tube placement. Protonix for GI prophylaxis -Palliative care is following IV access: Peripheral IV's, Level 3 Kacy Ayala MD Nov 26, 2016 08:22
[2016-11-26] MEDS: ARTIFICIAL TEARS OPTH SOLN 15 ML BTL EACH EYE SCH ×3 (09:00→18:00)
[2016-11-26] MEDS: DOCUSATE SODIUM 100 MG/10 ML UDC G-TUBE SCH ×2 (09:00→20:09)
[2016-11-26] MEDS: SODIUM CHLORIDE 0.9% FLUSH 5 ML FLUSH IV FLUSH SCH ×2 (09:00→20:09)
[2016-11-26] MEDS: FERROUS SULFATE 300 MG /5ML UDC PO SCH ×2 (11:59→20:09)
[2016-11-26] MEDS: BUMETANIDE INJ 1 MG/4 ML VIAL IV PUSH SCH (12:00)
[2016-11-26] MEDS: PANTOPRAZOLE SODIUM 40 MG VIAL IV SCH (12:00)
[2016-11-26] MEDS: FLUCONAZOLE 200 MG PREMIX BAG 100 ML IV SCH (12:00)
--- NOTE | 2016-11-26 12:21 | HHI.HCPN ---
Call from son on Palliative care voicemail to ask questions regarding PEG tube placement. I spoke with sonWyatt via telephone. He asks if there is any other way beside PEG tube placement, saying maybe this is a sign she shouldn't have it. I explained radiology was consulted to attempt to place the PEG tube on Sunday. He desires continued aggressive care, he is not ready to transition to comfort and therefore wants to proceed with PEG tube with IR. We agreed should IR not be able to place the tube that we should reevaluate status and goals. Palliative care will follow up with son Sunday11/27/16. ZAIN TITUS Nov 26, 2016 12:21
[2016-11-27] VITALS (21 sets, daily range): BP systolic 107–128; BP diastolic 52–70; PULSE 61–83; RESP 11–24; TEMP 97.9–99; O2SAT 95–100
[2016-11-27] MEDS: CHLORHEXIDINE GLUCONATE 2 % 1 PACK (2 CLOTHS) TOP SCH (04:00)
[2016-11-27] MEDS: HIGH DOSE INSULIN NOVOLIN REGULAR SUPPLEMENTAL SCALE SQ SCH ×5 (04:01→20:00)
[2016-11-27] MEDS: PIPERACIL-TAZO 3.375 GM PREMIX 50 ML IV SCH ×2 (04:01→10:02)
[2016-11-27] MEDS: RESP: ALBUTEROL 2.5 MG/IPRATROPIUM 0.5 MG NEB (SCH) NEB ×4 (04:16→20:08)
[2016-11-27] MEDS: FREE WATER G-TUBE SCH ×4 (05:25→21:52)
[2016-11-27] MEDS: EPOETIN ALFA 10,000 UNITS/ML VIAL SQ SCH (05:25)
[2016-11-27 06:14] LABS: BASOPHIL % 0.4 % (0.0-2.0); EOSINOPHIL # 0.6 TH/MM3 (0-0.4); HEMATOCRIT 23.8 % (35.0-46.0); LYMPH % 8.7 % (9.0-44.0); LYMPHOCYTE # 0.6 TH/MM3 (1.0-4.8); MEAN CELL VOLUME 80.1 FL (80.0-100.0); MEAN CORPUSCULAR HEMOGLOBIN 25.7 PG (27.0-34.0); MEAN CORPUSCULAR HGB CONC 32.1 % (32.0-36.0); MONO % 10.1 % (0.0-8.0); NEUT % 71.8 % (16.0-70.0); PLATELET COUNT 126 TH/MM3 (150-450); RED BLOOD COUNT 2.98 MIL/MM3 (4.00-5.30); RED CELL DISTRIBUTION WIDTH 28.4 % (11.6-17.2); WHITE BLOOD COUNT 6.9 TH/MM3 (4.0-11.0)
[2016-11-27 06:35] LABS: HEMO FLAGS AUTO DIFF
[2016-11-27 06:58] LABS: BICARBONATE 20.7 MEQ/L (21.0-32.0); POTASSIUM 3.6 MEQ/L (3.5-5.1); TOTAL BILIRUBIN ADULT 0.4 MG/DL (0.2-1.0)
[2016-11-27] MEDS: CHLORHEXIDINE 0.12% (ORAL KIT) 15 ML CUP MT SCH ×2 (07:47→20:30)
--- NOTE | 2016-11-27 08:05 | HHI.CCPN ---
Subjective Remarks/Hospital Course This is an 86yF with per report no other past medical history who presented to the ER after she was found unresponsive in her bed. According to ER reports, her family saw her normal last night when she had a fall, with unknown LOC. At that point, he helped her back to bed. However, this morning she did not wake up. On arrival to the ER, she was unresponsive only withdrawing to pain. she was intubated for airway protection and a poor GCS. CT head demonstrated massive posterior-circulation ischemic stroke. The patient is currently intubated and unresponsive and cannot provide any additional history. 11/09: No acute changes overnight. Palliative care team has consult with the family regarding goals of care. Currently the patient's sedation fentanyl infusion has been turned off without any response from patient. The patient notably does withdrawal to pain. 11/10: No change in neurological status. [id number]. The patient withdraws to pain 4 extremities. The patient currently on no sedation, fentanyl infusion discontinued yesterday. Tube feeds were initiated. The patient's urine culture grew back Escherichia coli, the patient was started on antibiotics. Extensive discussion with son regarding patient's neurological status, son Wyatt has had extensive discussion with palliative care.The son feels that yesterday when the patient was spoken to in [place] the patient squeezed his hand and desires aggressive treatment. The patient's neuro status is unchanged, totally unresponsive with occasional reflexive twitching of feet B/L. Follow-up with neurology Dr. Pack, guarding any further imaging studies. 11/13: No change in neuro exam. Palliative care following. Family wanting full aggressive care. Palliative care will address early trach PEG 11/14: No improvement in neuro status. Son has not made decisions regarding trach and PEG. Apparently he wants to wait longer to see any improvement 11/15: Remains unresponsive. Neuro exam with extensor posturing-unchanged. Son requesting aggressive care. Continues to have low-grade fever 11/16: Clinically no improvement. Tolerates CPAP. Unable to extubate as patient will not protect airway 11/17: Tolerating C Pap but no change in neuro exam. Hemoglobin noted to be 6.8 hemodynamically stable 11/18: Became tachycardic and hypotensive early a.m., placed on assist control. Otherwise neuro exam remains unchanged 11/19: Continues to spike fever Tmax 102, started on vancomycin and cefepime in addition to Levaquin yesterday. Currently only low-grade fever. Received 2 units of blood for hemoglobin of 5.3. CBC pending at this time. No improvement in neuro exam 11/20: White count is 18.3 today, MAXIMUM TEMPERATURE 103.1. Chest x-ray showing right sided infiltrate. Urine culture with gram-negative rods and Lizet albicans. ID consulted Diflucan added 11/21/16: Tmax 101.5. Bilateral lung infiltrates, R>L but slightly improved. No improvement in neuro exam. ID consulted and following. 11/22/16: No fever. CT chest- moderate to large R pleural effusion, bilateral lung infiltrates. ABX per ID. CXR today shows increasing bilateral infiltrates and effusion right more than left. Almost near complete infiltrates on the right lung [place]. Vaginally worsening creatinine today 1.45 indicating multiorgan failure 11/23/16: Hb 9.8 today after 2U PRBC yesterday. Plan for tracheostomy today. INR normal platelet count 116. Worsening creatinine today is 1.6. UO 550 ml in 24 hours. 1L NS bolus and 75 ml per hour maintenance NS. Started on Dopamine 3 mcg per min to maintain MAP>65 11/24 Patient is on ventilator via trach. Afebrile. On Dopamine 4 mics. 11/25 No acute events overnight. s/p EGD yesterday showed mild gastritis unable to place PEG tube endoscopically. Remains on Dopamine 4 mics. On no sedation unresponsive. 11/26 No acute events overnight. On CPAP with PS 20, PEEP: 5 and FIO2 40%. Afebrile. Off Dopamine. Afebrile. 11/27 Patient remains on ventilator via trach on no drips. Afebrile. For PEG tube placement by IR today. Objective Vital Signs Date Time Temp Pulse Resp B/P Pulse Ox O2 Delivery O2 Flow Rate FiO2 11/27/16 06:00 75 11/27/16 04:16 98 40 11/27/16 04:13 98.4 24 108/53 Intake and Output 11/26/16 11/26/16 11/27/16 08:00 16:00 00:00 Intake Total 922 ml 400 ml 820 ml Output Total 200 ml 250 ml 200 ml Balance 722 ml 150 ml 620 ml Result Diagram: 11/27/16 0457 11/27/16 0457 Other Results Laboratory Tests Test 11/27/16 04:57 White Blood Count 6.9 TH/MM3 Red Blood Count 2.98 MIL/MM3 Hemoglobin 7.7 GM/DL Hematocrit 23.8 % Mean Corpuscular Volume 80.1 FL Mean Corpuscular Hemoglobin 25.7 PG Mean Corpuscular Hemoglobin 32.1 % Concent Red Cell Distribution Width 28.4 % Platelet Count 126 TH/MM3 Mean Platelet Volume 9.1 FL Neutrophils (%) (Auto) 71.8 % Lymphocytes (%) (Auto) 8.7 % Monocytes (%) (Auto) 10.1 % Eosinophils (%) (Auto) 9.0 % Basophils (%) (Auto) 0.4 % Neutrophils # (Auto) 5.0 TH/MM3 Lymphocytes # (Auto) 0.6 TH/MM3 Monocytes # (Auto) 0.7 TH/MM3 Eosinophils # (Auto) 0.6 TH/MM3 Basophils # (Auto) 0.0 TH/MM3 CBC Comment AUTO DIFF Sodium Level 142 MEQ/L Potassium Level 3.6 MEQ/L Chloride Level 110 MEQ/L Carbon Dioxide Level 20.7 MEQ/L Anion Gap 11 MEQ/L Blood Urea Nitrogen 53 MG/DL Creatinine 2.85 MG/DL Estimat Glomerular Filtration 16 ML/MIN Rate Random Glucose 174 MG/DL Calcium Level 7.4 MG/DL Protein Corrected Calcium 9.0 MG/DL Total Bilirubin 0.4 MG/DL Aspartate Amino Transf 68 U/L (AST/SGOT) Alanine Aminotransferase 18 U/L (ALT/SGPT) Alkaline Phosphatase 137 U/L Total Protein 4.4 GM/DL Albumin 1.0 GM/DL Imaging Last Impressions Chest X-Ray 11/25/16 0000 Signed Impressions: Service Date/Time: Friday, November 25, 2016 14:16 - CONCLUSION: Increasing congestive failure and left pleural effusion. Mack Cao MD FACR Chest CT 11/21/16 0000 Signed Impressions: Service Date/Time: Monday, November 21, 2016 22:57 - CONCLUSION: 1. Moderate size right pleural effusion and small left pleural effusion. Right effusion has increased over the last day compared with a recent chest radiograph. 2. Bilateral lung consolidation as above. Differential diagnosis includes pneumonia and aspiration. Emeterio Freire MD Head CT 11/08/16 1657 Signed Impressions: Service Date/Time: Tuesday, November 08, 2016 17:06 - CONCLUSION: Low density seen throughout the posterior circulation regions including the susan and midbrain, cerebellar hemispheres, occipital and posterior medial temporal lobes and right thalamus. This likely represents areas of infarction involving the posterior territory circulation. Jeffery Zhong MD Carotid Artery Ultrasound 11/08/16 0000 Signed Impressions: Service Date/Time: Tuesday, November 08, 2016 22:24 - CONCLUSION: Mild calcified plaque at the carotid bulbs. No evidence of hemodynamically significant carotid stenosis. José Luis Beltran MD Objective Remarks GENERAL: Patient is 86 yo on ventilator via trach. SKIN: Warm and dry. HEAD: Normocephalic. EYES: No scleral icterus. No injection or drainage. NECK: Supple, trachea midline. No JVD or lymphadenopathy. CARDIOVASCULAR: Regular rate and rhythm without murmurs, gallops, or rubs. RESPIRATORY: Breath sounds equal bilaterally. Few coarse BS GASTROINTESTINAL: Abdomen soft, non-tender, nondistended. MUSCULOSKELETAL: No cyanosis, or edema. Neuro: Positive corneal reflex. LIDYA. Negative cough. Negative gag. Extensor posturing in uppers. Downgoing Babinski. 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 She was last seen normal, nearly 24 hours, she was not a candidate for any interventional therapy. Unfortunately, given her age, and the extent of the stroke, her prognosis for any reasonable neurologic function is quite poor, and I do not think that we will be able to improve her outcome at all. Her family expressed wishes for a short course of aggressive medical management. Active problems: Massive posterior circulation ischemic CVA Hypoxic and hypercarbic respiratory failure Severe encephalopathy secondary to stroke Severe sepsis Healthcare associated pneumonia with pleural effusion Acute kidney injury UTI Anemia-acute and chronic Hyperglycemia of critical illness Thrombocytopenia Plan Neuro: On no sedation Monitor neuro status and avoid sedatives. Neuro is following -11/08 CT brain: Low density seen throughout the posterior circulation regions including the susan and midbrain, cerebellar hemispheres, occipital and posterior medial temporal lobes and right thalamus. This likely represents areas of infarction involving the posterior territory circulation Resp: -Continue with vent support keep sat >92% Vent bundle, Head of bed 30, bronchodilators -s/p trach 11/23, pulm toilet, trach care -SBT daily as lia -Will proceed with CT guided thoracentesis and send pleural fluid foe analysis and culture CVS: Monitor HR and BP keep MAP>65mmhg 2-D echo -EF 5560 %, mild aortic mitral and tricuspid regurgitation, No RWMA. Carotid ultrasound-no stenosis GI: -TF on hold for PEG tube placement by IR today(Jevity 1.5 with goal rate 45 ml/ hr) -s/p EGD yesterday showed mild gastritis unable to place PEG tube endoscopically. -Monitor LFT's, check US abdomen. : -Monitor renal function, I/O's, electrolytes replacement as needed. - Renal function worse today with Cr 2.85 today from: 2.1, UO:650ml in 24hrs -d/c Bumex, will check renal US and consult nephrology service -On Free water 250ml Q6 monitor sodium level. ID: -On Zosyn for HCAP and and Diflucan for lizet UTI. -Urine culture 11/18/16 with Lizet albicans and E coli NOT S Levaquin, but S to zosyn -Infectious disease Dr. Wen, follow up on sputum cx 11/23: nl resp erica Endo: --Medium dose sliding scale regimen- Proph: Subcutaneous heparin on hold secondary to thrombocytopenia, anemia.. SCDs for DVT prophylaxis Resume heparin SQ after PEG tube placement. Protonix for GI prophylaxis -Palliative care is following IV access: Peripheral IV's, Level 3 Kacy Ayala MD Nov 27, 2016 08:05
[2016-11-27] MEDS: ARTIFICIAL TEARS OPTH SOLN 15 ML BTL EACH EYE SCH ×3 (08:12→18:00)
[2016-11-27] MEDS: SODIUM CHLORIDE 0.9% FLUSH 5 ML FLUSH IV FLUSH SCH ×2 (08:12→20:31)
[2016-11-27] MEDS: PANTOPRAZOLE SODIUM 40 MG VIAL IV SCH (08:12)
[2016-11-27] MEDS: DOCUSATE SODIUM 100 MG/10 ML UDC G-TUBE SCH ×2 (08:13→20:30)
[2016-11-27] MEDS: FERROUS SULFATE 300 MG /5ML UDC PO SCH ×2 (08:13→20:30)
[2016-11-27 09:02] LABS: KERATOCYTES OCC (NORMAL); SCAN/DIFF AUTO DIFF CONFIRMED
--- NOTE | 2016-11-27 11:39 | RADRPT ---
EXAM DATE/TIME: 11/27/2016 08:35 [facility] COMPARISON: No previous studies available for comparison. INDICATIONS : Elevated labs. MEDICAL HISTORY : Elevated labs. SURGICAL HISTORY : None. ENCOUNTER: Initial ACUITY: 1 day PAIN SCORE: Nonresponsive. LOCATION: Bilateral upper quadrant MEASUREMENTS: LIVER: 13.5 cm length COMMON DUCT: 5 mm RIGHT KIDNEY: 10.0 x 4.2 x 4.8 cm LEFT KIDNEY: 10.3 x 3.9 x 4.6 cm SPLEEN: 15.3 cm length AORTA: 1.7cm maximal FINDINGS: Trace ascites LIVER: Normal echotexture without focal lesion or ductal dilatation. COMMON DUCT: No intraluminal mass or stone visualized. GALLBLADDER: Small stone in the gallbladder neck. PANCREAS: The visualized portions are within normal limits. RIGHT KIDNEY: No hydronephrosis, stone or mass. LEFT KIDNEY: No hydronephrosis, stone or mass. SPLEEN: Mildly enlarged. AORTA: Non aneurysmal. IVC: Within normal limits. CONCLUSION: Stone in the neck of the gallbladder. Trace ascites and mild splenomegaly Jeffery Alvarado MD on November 27, 2016 at 11:33 Board Certified Radiologist. This report was verified electronically.
--- NOTE | 2016-11-27 14:09 | PD.CONS ---
HPI Service Nephrology Consult Requested By Dr. Ayala Reason for Consult Acute renal failure Primary Care Physician Cary Hernandez MD History of Present Illness 86-year-old female with the history of CVA, respiratory failure, status post packed, acute renal failure, oliguria and worsening creatinine of 2.8, she is on ventilator, apparently she had a massive stroke involving posterior circulation and had respiratory failure, she had a fall and multiple injuries as well, her creatinine is slowly increasing and now it is 2.8 urine output has been 175 cc for 12 hours, she did receive diuretics, she has pleural effusion and trace ascites, gallstones present in the gallbladder neck. Review of Systems ROS Limitations: Clinical Condition Past Family Social History Allergies: Coded Allergies: No Known Allergies (Unverified , 11/08/16) Past Medical History Dementia Reported Medications Reported Meds & Active Scripts Active No Active Prescriptions or Reported Medications Active Ordered Medications Current Medications Medications (Trade) Dose Ordered Sig/Swati Route Start Time Stop Time Status Last Admin (Peridex 0.12% Liq) 15 ml BID@08,20 MT 11/08/16 20:00 11/27/16 07:47 (D50w (Vial) Inj) 25 ml UNSCH PRN IV PUSH 11/08/16 19:45 (NS Flush) 2 ml UNSCH PRN IV FLUSH 11/08/16 19:45 (NS Flush) 2 ml BID IV FLUSH 11/08/16 21:00 11/27/16 08:12 (Protonix Inj) 40 mg DAILY IV 11/09/16 09:00 11/27/16 08:12 (Zofran Inj) 4 mg Q6H PRN IV 11/08/16 19:45 (Colace Liq) 100 mg Q12HR G-TUBE 11/08/16 21:00 11/26/16 20:09 (Heparin Inj) 5,000 units Q12H SQ 11/08/16 20:00 Hold 11/23/16 20:02 Miscellaneous Information 1 Q361D XX 11/08/16 19:45 (Chlorhexidine 2% Cloth) Taper DAILY@04 TOP 11/09/16 04:00 11/05/17 03:59 11/23/16 20:04 (Chlorhexidine 2% Cloth) 3 pack UNSCH PRN TOP 11/08/16 19:45 (Tears Naturale Opth Soln) 1 drop TID EACH EYE 11/09/16 18:00 11/27/16 13:00 (Tears Naturale Opth Soln) 1 drop TID PRN EACH EYE 11/09/16 14:45 (Ferrous Sulfate Liq) 300 mg BID PO 11/11/16 09:00 11/26/16 20:09 (Epogen Inj) 10,000 units MoWeFr SQ 11/13/16 06:00 11/27/16 05:25 (NovoLIN R SUPPLEMENTAL SCALE) 1 Q4HR SQ 11/12/16 12:07 11/27/16 11:46 (Tylenol 650 Mg/ 20 ml Liq) 650 mg Q4H PRN OG-TUBE 11/12/16 17:00 11/21/16 04:43 Water 250 ml 250 ml Q6HR G-TUBE 11/13/16 12:45 11/26/16 23:01 (Diflucan 200 Mg Premix Bag) 100 ml @ 100 mls/hr Q24H IV 11/22/16 16:00 11/26/16 12:00 Terbutaline Sulfate 1 mg 1 mg UNSCH PRN SQ 11/23/16 07:00 (Zosyn 2.25 Gm Premix) 50 ml @ 100 mls/hr Q6H IV 11/27/16 16:00 Family History Noncontributory Social History Incomplete data Physical Exam Vital Signs Vital Signs Date Time Temp Pulse Resp B/P Pulse Ox O2 Delivery O2 Flow Rate FiO2 11/27/16 12:00 75 11/27/16 12:00 99.0 75 17 121/68 100 11/27/16 12:00 40 11/27/16 11:03 100 40 11/27/16 10:00 75 11/27/16 08:00 79 11/27/16 08:00 40 11/27/16 08:00 98.8 79 18 122/70 98 11/27/16 07:57 97 40 11/27/16 06:00 75 11/27/16 04:16 98 40 11/27/16 04:13 98.4 71 24 108/53 99 11/27/16 04:00 71 11/27/16 04:00 50 11/27/16 02:00 78 11/27/16 00:41 98 40 11/27/16 00:00 98.0 82 15 128/56 97 11/27/16 00:00 50 11/27/16 00:00 82 11/26/16 22:00 84 11/26/16 20:02 98 40 11/26/16 20:00 84 11/26/16 20:00 50 11/26/16 20:00 97.9 84 15 118/55 97 11/26/16 18:00 86 11/26/16 16:27 98 40 11/26/16 16:00 84 11/26/16 16:00 50 11/26/16 16:00 97.9 84 15 125/59 98 Physical Exam GENERAL: Well-nourished, well-developed elderly patient on the ventilator. SKIN: Warm and dry. HEAD: Normocephalic. EYES: No scleral icterus. No injection or drainage. NECK: Supple, status post tracheostomy CARDIOVASCULAR: Regular rate and rhythm without murmurs, gallops, or rubs. RESPIRATORY: Breath sounds equal bilaterally. No accessory muscle use. GASTROINTESTINAL: Abdomen soft, non-tender, nondistended. EXTREMITIES: No cyanosis, mild edema. NEUROLOGICAL: Obtunded on vent Laboratory Laboratory Tests Test 11/27/16 04:57 White Blood Count 6.9 Red Blood Count 2.98 Hemoglobin 7.7 Hematocrit 23.8 Mean Corpuscular Volume 80.1 Mean Corpuscular Hemoglobin 25.7 Mean Corpuscular Hemoglobin 32.1 Concent Red Cell Distribution Width 28.4 Platelet Count 126 Mean Platelet Volume 9.1 Neutrophils (%) (Auto) 71.8 Lymphocytes (%) (Auto) 8.7 Monocytes (%) (Auto) 10.1 Eosinophils (%) (Auto) 9.0 Basophils (%) (Auto) 0.4 Neutrophils # (Auto) 5.0 Lymphocytes # (Auto) 0.6 Monocytes # (Auto) 0.7 Eosinophils # (Auto) 0.6 Basophils # (Auto) 0.0 CBC Comment AUTO DIFF Differential Comment AUTO DIFF CONFIRMED Keratocytes OCC Sodium Level 142 Potassium Level 3.6 Chloride Level 110 Carbon Dioxide Level 20.7 Anion Gap 11 Blood Urea Nitrogen 53 Creatinine 2.85 Estimat Glomerular Filtration 16 Rate Random Glucose 174 Calcium Level 7.4 Protein Corrected Calcium 9.0 Total Bilirubin 0.4 Aspartate Amino Transf 68 (AST/SGOT) Alanine Aminotransferase 18 (ALT/SGPT) Alkaline Phosphatase 137 Total Protein 4.4 Albumin 1.0 Date/Time Procedure Status Source Growth 11/23/16 08:30 Gram Stain - Final Complete Sputum Endotracheal 11/23/16 08:30 Sputum Culture - Final Complete Sputum Endotracheal RARE GROWTH NORMAL RESPIRATORY STACY Result Diagram: 11/27/1645611/27/16456 Imaging Last Impressions Abdomen Ultrasound 11/27/16 0000 Signed Impressions: Service Date/Time: Sunday, November 27, 2016 08:35 - CONCLUSION: Stone in the neck of the gallbladder. Trace ascites and mild splenomegaly Jeffery Alvarado MD Chest X-Ray 11/25/16 0000 Signed Impressions: Service Date/Time: Friday, November 25, 2016 14:16 - CONCLUSION: Increasing congestive failure and left pleural effusion. Mack Cao MD FACR Chest CT 11/21/16 0000 Signed Impressions: Service Date/Time: Monday, November 21, 2016 22:57 - CONCLUSION: 1. Moderate size right pleural effusion and small left pleural effusion. Right effusion has increased over the last day compared with a recent chest radiograph. 2. Bilateral lung consolidation as above. Differential diagnosis includes pneumonia and aspiration. Emeterio Freire MD Head CT 11/08/16 1657 Signed Impressions: Service Date/Time: Tuesday, November 08, 2016 17:06 - CONCLUSION: Low density seen throughout the posterior circulation regions including the susan and midbrain, cerebellar hemispheres, occipital and posterior medial temporal lobes and right thalamus. This likely represents areas of infarction involving the posterior territory circulation. Jeffery Zhong MD Carotid Artery Ultrasound 11/08/16 0000 Signed Impressions: Service Date/Time: Tuesday, November 08, 2016 22:24 - CONCLUSION: Mild calcified plaque at the carotid bulbs. No evidence of hemodynamically significant carotid stenosis. José Luis Beltran MD Assessment and Plan Problem List: (1) Acute renal failure Plan: Patient has multiple issues and has malnutrition with poor albumin contributing to low oncotic pressure, I will try to give her albumin and then Bumex try to establish a good urine output patient is undergoing thoracenteses today, follow urine sodium and creatinine ratio Avoid nephrotoxins and obtain a kidney ultrasound (2) Metabolic acidosis Plan: Try to give sodium bicarbonate (3) Pneumonia Plan: On Zosyn (4) Urinary tract infection Plan: Escherichia coli she is on Zosyn (5) CVA (cerebral vascular accident) Plan: Massive stroke neurology following (6) Rhabdomyolysis Plan: This resolved Problem Qualifiers (1) Acute renal failure: Qualified Code: N17.9 - Acute renal failure, unspecified acute renal failure type (2) CVA (cerebral vascular accident): Qualified Code: I63.9 - Cerebrovascular accident (CVA), unspecified mechanism (3) Rhabdomyolysis: Qualified Code: M62.82 - Non-traumatic rhabdomyolysis Kristel Zuniga MD Nov 27, 2016 14:09
[2016-11-27] MEDS ORDERED: BUMETANIDE INJ 1 MG/4 ML VIAL IV PUSH ONE (14:30)
[2016-11-27] MEDS ORDERED: ceFAZolin 2 GM PREMIX 50 ML ONE (14:30)
[2016-11-27] MEDS ORDERED: MIDAZOLAM HCL 2 MG/2 ML VIAL ONE (14:31)
[2016-11-27] MEDS ORDERED: GLUCAGON 1 MG/ML VIAL ONE (14:31)
--- NOTE | 2016-11-27 14:35 | HHI.HCPN ---
Reason for visit a. To assist with evaluation and management of symptoms including: pain; dyspnea; encephalopathy b. To assist medical decision maker(s) with: better understanding of current medical conditions; weighing benefits/burdens of medical treatment options; making medical treatment decisions. . Subjective/Interval History 86 y/o female with devastating posterior circulation stroke, TRACH PLACED . Patient seen and examined in ICU. No family at bedside. She remains off sedation , unresponsive. Plan for IR to place PEG tube later today per nurse. Albumin 1.0. Abdomen ultrasound revealed stone in neck of the gallbladder, trace ascites and mild splenomegaly. No significant change. No signs of discomfort. Tmax 99. Otherwise vital signs stable. Hemoglobin 7.7, platelets 126. Creatinine rising again now 2.85. I will call son again 11/28/16, I spoke with him via telephone 11/26/16 goals remain aggressive. . Advance Directives Living Will: Never completed Health Care Surrogate: Never completed Durable Power of Elementary Science Teacher: Never completed Advance Directive Specifics Date completed: Advance directives were never completed . Health Care Surrogate(s): There is no known written designation of health care surrogate . Documented care wishes: There is no written documentation of health care goals/preferences. . Significant change in goals: NO CODE. Desires continued aggressive care including PEG tube. . Objective Vital Signs Date Time Temp Pulse Resp B/P Pulse Ox O2 Delivery O2 Flow Rate FiO2 11/27/16 12:00 75 11/27/16 12:00 99.0 75 17 121/68 100 11/27/16 12:00 40 11/27/16 11:03 100 40 11/27/16 10:00 75 11/27/16 08:00 79 11/27/16 08:00 40 11/27/16 08:00 98.8 79 18 122/70 98 11/27/16 07:57 97 40 11/27/16 06:00 75 11/27/16 04:16 98 40 11/27/16 04:13 98.4 71 24 108/53 99 11/27/16 04:00 71 11/27/16 04:00 50 11/27/16 02:00 78 11/27/16 00:41 98 40 11/27/16 00:00 98.0 82 15 128/56 97 11/27/16 00:00 50 11/27/16 00:00 82 11/26/16 22:00 84 11/26/16 20:02 98 40 11/26/16 20:00 84 11/26/16 20:00 50 11/26/16 20:00 97.9 84 15 118/55 97 11/26/16 18:00 86 11/26/16 16:27 98 40 11/26/16 16:00 84 11/26/16 16:00 50 11/26/16 16:00 97.9 84 15 125/59 98 Intake & Output 11/27/16 11/27/16 07:00 19:00 Intake Total 1255 ml Output Total 400 ml Balance 855 ml IV Total 160 ml Tube Feeding 845 ml Other 250 ml Output Urine Total 400 ml Physical Exam CONSTITUTIONAL/GENERAL: This is an adequately nourished patient, intubated, on CPAP; in an MICU bed. Responsiveness limited to decerebrate posturing with noxious stimuli. TUBES/LINES/DRAINS: trach, NG tube; Tejeda catheter; peripheral IVs; CARDIOVASCULAR: Regular rate and rhythm without murmurs, gallops, or rubs. No JVD RESPIRATORY/CHEST: Symmetric, unlabored respirations. Breath sounds equal bilaterally. Coarse breath sounds bilaterally. No wheezes, rales. GASTROINTESTINAL: Abdomen soft, non-tender, nondistended. No hepato-splenomegaly , or palpable masses. No guarding. Bowel sounds hypoactive. GENITOURINARY: Without palpable bladder distension. Tejeda catheter in place. MUSCULOSKELETAL: Extremities without clubbing, cyanosis, or edema. No mottling. NEUROLOGICAL: Does not awaken to loud voice or exam. Unable to follow commands. Decerebrate posturing to noxious stimuli. PSYCHIATRIC: Unable to evaluate due to level of responsiveness . Diagnostic Tests Laboratory Laboratory Tests Test 11/25/16 11/26/16 11/27/16 06:06 04:29 04:57 White Blood Count 7.4 TH/MM3 6.2 TH/MM3 6.9 TH/MM3 (4.0-11.0) (4.0-11.0) (4.0-11.0) Red Blood Count 3.87 MIL/MM3 3.37 MIL/MM3 2.98 MIL/MM3 (4.00-5.30) (4.00-5.30) (4.00-5.30) Hemoglobin 9.7 GM/DL 8.5 GM/DL 7.7 GM/DL (11.6-15.3) (11.6-15.3) (11.6-15.3) Hematocrit 30.8 % 27.2 % 23.8 % (35.0-46.0) (35.0-46.0) (35.0-46.0) Mean Corpuscular Volume 79.5 FL 80.9 FL 80.1 FL (80.0-100.0) (80.0-100.0) (80.0-100.0) Mean Corpuscular Hemoglobin 25.1 PG 25.3 PG 25.7 PG (27.0-34.0) (27.0-34.0) (27.0-34.0) Mean Corpuscular Hemoglobin 31.5 % 31.3 % 32.1 % Concent (32.0-36.0) (32.0-36.0) (32.0-36.0) Red Cell Distribution Width 28.3 % 28.4 % 28.4 % (11.6-17.2) (11.6-17.2) (11.6-17.2) Platelet Count 124 TH/MM3 131 TH/MM3 126 TH/MM3 (150-450) (150-450) (150-450) Mean Platelet Volume 9.2 FL 9.2 FL 9.1 FL (7.0-11.0) (7.0-11.0) (7.0-11.0) Neutrophils (%) (Auto) 71.3 % 72.1 % 71.8 % (16.0-70.0) (16.0-70.0) (16.0-70.0) Lymphocytes (%) (Auto) 8.5 % 8.6 % 8.7 % (9.0-44.0) (9.0-44.0) (9.0-44.0) Monocytes (%) (Auto) 9.2 % (0.0-8.0) 10.6 % 10.1 % (0.0-8.0) (0.0-8.0) Eosinophils (%) (Auto) 10.5 % 8.3 % (0.0-4.0) 9.0 % (0.0-4.0) (0.0-4.0) Basophils (%) (Auto) 0.5 % (0.0-2.0) 0.4 % (0.0-2.0) 0.4 % (0.0-2.0) Neutrophils # (Auto) 5.3 TH/MM3 4.5 TH/MM3 5.0 TH/MM3 (1.8-7.7) (1.8-7.7) (1.8-7.7) Lymphocytes # (Auto) 0.6 TH/MM3 0.5 TH/MM3 0.6 TH/MM3 (1.0-4.8) (1.0-4.8) (1.0-4.8) Monocytes # (Auto) 0.7 TH/MM3 0.7 TH/MM3 0.7 TH/MM3 (0-0.9) (0-0.9) (0-0.9) Eosinophils # (Auto) 0.8 TH/MM3 0.5 TH/MM3 0.6 TH/MM3 (0-0.4) (0-0.4) (0-0.4) Basophils # (Auto) 0.0 TH/MM3 0.0 TH/MM3 0.0 TH/MM3 (0-0.2) (0-0.2) (0-0.2) CBC Comment AUTO DIFF AUTO DIFF AUTO DIFF Differential Total Cells 100 Counted Neutrophils % (Manual) 69 % (16-70) Band Neutrophils % 3 % (0-6) Lymphocytes % 12 % (9-44) Monocytes % 4 % (0-8) Eosinophils % 10 % (0-4) Basophils % 1 % (0-2) Neutrophils # (Manual) 5.4 TH/MM3 (1.8-7.7) Myelocytes 1 % (0-0) Nucleated Red Blood Cells 1 /100 WBC (0-0) Differential Comment FINAL DIFF AUTO DIFF AUTO DIFF MANUAL CONFIRMED CONFIRMED Platelet Estimate LOW (NORMAL) Platelet Morphology Comment NORMAL (NORMAL) Polychromasia 2.3 % (0.0-1.9) Sodium Level 141 MEQ/L 141 MEQ/L 142 MEQ/L (136-145) (136-145) (136-145) Potassium Level 3.3 MEQ/L 3.5 MEQ/L 3.6 MEQ/L (3.5-5.1) (3.5-5.1) (3.5-5.1) Chloride Level 109 MEQ/L 109 MEQ/L 110 MEQ/L (98-107) (98-107) (98-107) Carbon Dioxide Level 19.7 MEQ/L 20.2 MEQ/L 20.7 MEQ/L (21.0-32.0) (21.0-32.0) (21.0-32.0) Anion Gap 12 MEQ/L (5-15) 12 MEQ/L (5-15) 11 MEQ/L (5-15) Blood Urea Nitrogen 41 MG/DL (7-18) 45 MG/DL (7-18) 53 MG/DL (7-18) Creatinine 1.78 MG/DL 2.18 MG/DL 2.85 MG/DL (0.50-1.00) (0.50-1.00) (0.50-1.00) Estimat Glomerular Filtration 27 ML/MIN (>89) 21 ML/MIN (>89) 16 ML/MIN (>89) Rate Random Glucose 176 MG/DL 188 MG/DL 174 MG/DL (74-106) (74-106) (74-106) Calcium Level 7.3 MG/DL 7.2 MG/DL 7.4 MG/DL (8.5-10.1) (8.5-10.1) (8.5-10.1) Protein Corrected Calcium 8.8 MG/DL 8.8 MG/DL 9.0 MG/DL (8.5-10.1) (8.5-10.1) (8.5-10.1) Total Bilirubin 0.8 MG/DL 0.4 MG/DL (0.2-1.0) (0.2-1.0) Aspartate Amino Transf 61 U/L (15-37) 68 U/L (15-37) (AST/SGOT) Alanine Aminotransferase 17 U/L (10-53) 18 U/L (10-53) (ALT/SGPT) Alkaline Phosphatase 136 U/L 137 U/L (45-117) (45-117) Total Protein 4.5 GM/DL 4.3 GM/DL 4.4 GM/DL (6.4-8.2) (6.4-8.2) (6.4-8.2) Albumin 1.1 GM/DL 1.0 GM/DL (3.4-5.0) (3.4-5.0) Ovalocytes 1+ (NORMAL) Keratocytes OCC (NORMAL) Result Diagram: 11/27/1645611/27/16456 Microbiology Microbiology Date/Time Procedure Status Source Growth 11/23/16 08:30 Gram Stain - Final Complete Sputum Endotracheal 11/23/16 08:30 Sputum Culture - Final Complete Sputum Endotracheal RARE GROWTH NORMAL RESPIRATORY STACY . Imaging Last Impressions Abdomen Ultrasound 11/27/16 0000 Signed Impressions: Service Date/Time: Sunday, November 27, 2016 08:35 - CONCLUSION: Stone in the neck of the gallbladder. Trace ascites and mild splenomegaly Jeffery Alvarado MD Chest X-Ray 11/25/16 0000 Signed Impressions: Service Date/Time: Friday, November 25, 2016 14:16 - CONCLUSION: Increasing congestive failure and left pleural effusion. Mack Cao MD FACR Chest CT 11/21/16 0000 Signed Impressions: Service Date/Time: Monday, November 21, 2016 22:57 - CONCLUSION: 1. Moderate size right pleural effusion and small left pleural effusion. Right effusion has increased over the last day compared with a recent chest radiograph. 2. Bilateral lung consolidation as above. Differential diagnosis includes pneumonia and aspiration. Emeterio Freire MD Head CT 11/08/16 1657 Signed Impressions: Service Date/Time: Tuesday, November 08, 2016 17:06 - CONCLUSION: Low density seen throughout the posterior circulation regions including the susan and midbrain, cerebellar hemispheres, occipital and posterior medial temporal lobes and right thalamus. This likely represents areas of infarction involving the posterior territory circulation. Jeffery Zhong MD Carotid Artery Ultrasound 11/08/16 0000 Signed Impressions: Service Date/Time: Tuesday, November 08, 2016 22:24 - CONCLUSION: Mild calcified plaque at the carotid bulbs. No evidence of hemodynamically significant carotid stenosis. José Luis Beltran MD . Procedures * Intubation/mechanical ventilation * Trach 11/23/16 . Assessment and Plan Disease Oriented Problem List: (1) CVA (cerebral vascular accident) Comment: Very large posterior circulation stroke. No signs of neurological recovery. Prognosis grim. . . (2) Rhabdomyolysis (3) Dementia Comment: Family reports at least a 7 year history of dementia. . (4) Thrombocytopenia (5) Malnutrition Comment: Presenting albumin level was 2.8 . (6) Anemia (7) Urinary tract infection Comment: Cx of 11/08 --> E coli and Enterococcus . (8) Pneumonia Comment: Sputum cx of 11/12 growing Staph aureus. . Symptom Scale: (1) Pain 0-10 Scale: Unable to quantify Comment: Patient had no known prior pain syndromes. Current possible sources of pain include prolonged bedbound status; orotracheal intubation; vascular access catheters; Tejeda catheter. . (2) Dyspnea 0-10 Scale: Unable to quantify Comment: Dyspnea currently controlled with mechanical ventilation. . (3) Encephalopathy 0-10 Scale: Unable to quantify Comment: Patient was minimally responsive on arrival. No evidence of neurologic recovery. Off all sedation. Pertinent Non-Medical Issues Psychosocial: Normally lives with her sister. Her son lives by visits frequently. Spiritual: Patient is a Yazdanism. Blood products should not be given without the son's permission ---> her son DID consent to blood transfusion . Legal: No advance directives. Son would be the appropriate proxy health care decision-maker under the [place] statutes hierarchy. Ethical issues impacting care: Patient is incapacitated to make her own health care decisions and is not expected to regain such capacity . Important Contacts Wyatt Crawford (son and healthcare proxy) [phone] . Prognosis This is an 86-year-old female who was suffered a fairly massive posterior circulation stroke. This is on top of at least a seven-year history of dementia with the patient was already requiring assistance with most of her ADLs. There is a high risk of during this hospitalization. Should she survive, she will require tracheostomy to protect her airway as well as ongoing artificial nutrition. She will not have meaningful interaction with her environment. The patient would certainly be eligible for hospice services at such time that family believes the patient's goals would best be honored by transitioning to "comfort measures only." . Code Status: No Code Plan * NO CODE- per patient's son on 11/23/16 * DECISION-MAKING: The patient lacks capacity for decision-making, and she will not regain capacity. Her son, Wyatt Crawford, is the legal health care proxy. * GOALS: The patient is a Yazdanism. No blood products should be given without the son's permission; he DID consent to transfusion on 11/18 and . He said on 11/22/16 that he wanted trach and PEG, and then probable transfer to long care nursing (if she survives to that point). Son wants pt to be DNR, so she will naturally "when God calls her home." 11/26/16: Desires PEG tube placement, he says he may consider reevaluation of status if IR is unable to place PEG tube. * SYMPTOMS: It is difficult to know when she has pain or dyspnea, and we will continue to observe closely for signs of suffering. Certainly her bedbound status and recent procedures could be painful. No new med recommendations at this time. * Palliative care will continue to follow to assist with symptom management and to help clarify goals of medical treatment as the clinical course evolves. . Attestation To help prompt me to consider important information that might be impacting today's encounter and assessment, information from prior notes written by myself or my colleagues may have been "brought forward" into today's note. My signature on this note, however, is an attestation that I personally performed the exam, history, and/or decision-making noted today, and, unless otherwise indicated, the interactions with patient, family, and staff as well as the review of records all occurred today. I also attest that the listed assessment and stated plan reflect my best clinical judgment today based on the combination of historical information, prior notes, and today's exam/ interactions. When time spent is documented, it refers only to time spent today by the signer, or if indicated, combined time spent today by collaborating physician/nurse practitioner. ZAIN TITUS Nov 27, 2016 14:35
--- NOTE | 2016-11-27 15:26 | PD.RAD ---
Post Procedure Progress Note Pre Procedure Diagnosis: (1) CVA (cerebral vascular accident) Post Procedure Diagnosis: (1) CVA (cerebral vascular accident) Procedure Date: Nov 27, 2016 Supervising Radiologist: Kirit Alcantar Proceduralist/Assist: Shani Velez, RT(R), Alix Martin, RT(R)(CV) Anesthesia: Local Plan of Activity Patient to Unit: Critical Care Patient Condition: Poor See PACS Report for procedural detail/treatment Drainage Procedure Procedure 1 Imaging Guidance: Ultrasound Side: Right Procedure Type: Thoracentesis Procedure: Placement ([id number]) Sen[place]alese: 6 Drainage: Suction Fluid Removal (CCs): 700 Fluid Description: Yellow Feeding Tube Gastrostomy Placement Sen[place]e: 18 Kirit Alcantar MD Nov 27, 2016 15:26
[2016-11-27] MEDS ORDERED: IOHEXOL 350 MG/ML 50 ML BTL (for RAD DIAG) G-TUBE ONE (15:33)
--- NOTE | 2016-11-27 16:27 | RADRPT ---
EXAM DATE/TIME: 11/27/2016 14:18 [facility] COMPARISON: No previous studies available for comparison. INDICATIONS : Patient with a history of large posterior CVA. MEDICAL HISTORY : Unknown and Unobtainable SURGICAL HISTORY : Unknown and Unobtainable ENCOUNTER: Initial ACUITY: 3 weeks PAIN SCORE: Non-responsive FLUORO TIME: IMAGE SERIES: FLUID: Total volume of 700 cc of clear, yellow fluid was removed. Fluid was discarded. PROCEDURE : 1. ultrasound guided thoracentesis. The risks, benefits and alternatives to the procedure were explained and verbal and written consent w as obtained. The site was prepped in sterile fashion. Full sterile technique was used, including ca p, mask, sterile gloves and gown and a large sterile sheet. Hand hygiene and 2% chlorhexidine and/or betadine/alcohol prep was utilized per protocol for cutaneous antisepsis. The skin and subcutaneous tissues were infiltrated with local anesthetic solution. With ultrasound guidance the largest pocket of fluid was identified and accessed. The above described fluid was removed without difficulty. The patient tolerated the procedure well a nd there were no complications. A chest radiograph is to be obtained. CONCLUSION: Uncomplicated ultrasound guided thoracentesis. Kirit Alcantar MD on November 27, 2016 at 16:25 Board Certified Radiologist. This report was verified electronically.
--- NOTE | 2016-11-27 16:28 | RADRPT ---
EXAM DATE/TIME: 11/27/2016 14:34 [facility] COMPARISON: No previous studies available for comparison. INDICATIONS : Patient with a history of large posterior CVA. MEDICAL HISTORY : Unknown and Unobtainable SURGICAL HISTORY : Unknown and Unobtainable ENCOUNTER: Initial ACUITY: 3 weeks PAIN SCORE: Nonresponsive. FLUORO TIME: 1.33 minutes IMAGE SERIES: 2 CONTRAST: 20 cc Omnipaque (iohexol) 350 DEVICE(S): 1.) 18 Fr gastrostomy tube PROCEDURE : 1. Limited abdominal ultrasound. 2. Fluoroscopically guided gastrostomy tube placement. 3. Conscious sedation with continuous EKG and oximetry monitoring. The risks, benefits and alternatives to the procedure were explained and verbal and written consent w as obtained. The site was prepped in sterile fashion. Full sterile technique was used, including ca p, mask, sterile gloves and gown and a large sterile sheet. Hand hygiene and 2% chlorhexidine and/or betadine/alcohol prep was utilized per protocol for cutaneous antisepsis. The skin and subcutaneous tissues were infiltrated with local anesthetic solution. Ultrasound was used to luli the position of the liver. The stomach was insufflated with room air. Th ree percutaneous fasteners were placed to secure the anterior gastric wall. A small incision was made between the fasteners. The stomach was accessed with an 18 gauge needle. A n 0.035 wire was advanced into the small bowel. The tract was dilated. The gastrostomy tube was int roduced through a peel-away sheath. The position was confirmed with an injection of contrast. Conscious sedation was performed with the prescribed dosages and duration as above in the presence of an independent trained radiology nurse to assist in the monitoring of the patient. EKG and oximetry remained stable throughout the procedure. The patient tolerated the procedure well and there were n o complications. The patient was sent to post anesthesia recovery in stable condition. CONCLUSION: Uncomplicated gastrostomy tube placement as above. Kirit Alcantar MD on November 27, 2016 at 16:26 Board Certified Radiologist. This report was verified electronically.
--- NOTE | 2016-11-27 16:32 | RADRPT ---
EXAM DATE/TIME: 11/27/2016 15:24 [facility] COMPARISON: CHEST SINGLE AP, November 25, 2016, 14:16. INDICATIONS : Status post thoracentesis. MEDICAL HISTORY : None. SURGICAL HISTORY : None. ENCOUNTER: Initial ACUITY: 1 day PAIN SCORE: Non-responsive. LOCATION: Bilateral chest FINDINGS: A single view of the chest demonstrates marked improvement in the right-sided effusion post thoracent esis. No pneumothorax. Left basilar atelectasis with a small effusion persists. Bilateral airspace di sease also show some interval improvement. Tracheostomy tube remains stable in position. Nasogastric tube enters the stomach and extends off the inferior aspect of the image. Heart size is normal. [place] structures are intact CONCLUSION: 1. Marked improvement in right lung aeration post thoracentesis. No pneumothorax. 2. Improving bilateral airspace disease. Persistent, small left basilar consolidation/effusion Kirit Alcantar MD on November 27, 2016 at 16:27 Board Certified Radiologist. This report was verified electronically.
[2016-11-27] MEDS: PIPERACIL-TAZO 2.25 GM PREMIX 50 ML IV SCH ×2 (16:43→21:51)
[2016-11-27] MEDS: FLUCONAZOLE 200 MG PREMIX BAG 100 ML IV SCH (16:44)
[2016-11-27] MEDS: ALBUMIN HUMAN 25% 25 GM/100 ML BAGP IV SCH (16:45)
--- NOTE | 2016-11-27 23:02 | HHI.IDPN ---
Subjective Subjective Remarks Delayed entry - pt seen around 1800 today afebrile off pressors remains on vent cont to have constant diarrhea unresponsive Pt is now no code Antibiotics fluc zosyn Allergies: Coded Allergies: No Known Allergies (Unverified , 11/08/16) Objective . Vital Signs Date Time Temp Pulse Resp B/P Pulse Ox O2 Delivery O2 Flow Rate FiO2 11/27/16 22:00 62 11/27/16 20:01 95 40 11/27/16 20:00 61 11/27/16 20:00 97.9 61 15 108/59 99 11/27/16 20:00 40 11/27/16 18:00 66 11/27/16 16:18 100 40 11/27/16 16:00 67 11/27/16 16:00 40 11/27/16 16:00 98.1 67 11 107/52 100 11/27/16 14:15 100 100 11/27/16 14:00 83 11/27/16 12:00 75 11/27/16 12:00 99.0 75 17 121/68 100 11/27/16 12:00 40 11/27/16 11:03 100 40 11/27/16 10:00 75 11/27/16 08:00 79 11/27/16 08:00 40 11/27/16 08:00 98.8 79 18 122/70 98 11/27/16 07:57 97 40 11/27/16 06:00 75 11/27/16 04:16 98 40 11/27/16 04:13 98.4 71 24 108/53 99 11/27/16 04:00 71 11/27/16 04:00 50 11/27/16 02:00 78 11/27/16 00:41 98 40 11/27/16 00:00 98.0 82 15 128/56 97 11/27/16 00:00 50 11/27/16 00:00 82 11/26/16 11/26/16 11/27/16 15:00 23:00 07:00 Intake Total 400 ml 820 ml 435 ml Output Total 250 ml 200 ml 200 ml Balance 150 ml 620 ml 235 ml IV Total 100 ml 110 ml 50 ml Tube Feeding 300 ml 710 ml 135 ml Other 250 ml Output Urine Total 250 ml 200 ml 200 ml . Laboratory Tests Test 11/26/16 11/27/16 04:29 04:57 White Blood Count 6.2 TH/MM3 6.9 TH/MM3 Red Blood Count 3.37 MIL/MM3 2.98 MIL/MM3 Hemoglobin 8.5 GM/DL 7.7 GM/DL Hematocrit 27.2 % 23.8 % Mean Corpuscular Volume 80.9 FL 80.1 FL Mean Corpuscular Hemoglobin 25.3 PG 25.7 PG Mean Corpuscular Hemoglobin 31.3 % 32.1 % Concent Red Cell Distribution Width 28.4 % 28.4 % Platelet Count 131 TH/MM3 126 TH/MM3 Mean Platelet Volume 9.2 FL 9.1 FL Neutrophils (%) (Auto) 72.1 % 71.8 % Lymphocytes (%) (Auto) 8.6 % 8.7 % Monocytes (%) (Auto) 10.6 % 10.1 % Eosinophils (%) (Auto) 8.3 % 9.0 % Basophils (%) (Auto) 0.4 % 0.4 % Neutrophils # (Auto) 4.5 TH/MM3 5.0 TH/MM3 Lymphocytes # (Auto) 0.5 TH/MM3 0.6 TH/MM3 Monocytes # (Auto) 0.7 TH/MM3 0.7 TH/MM3 Eosinophils # (Auto) 0.5 TH/MM3 0.6 TH/MM3 Basophils # (Auto) 0.0 TH/MM3 0.0 TH/MM3 CBC Comment AUTO DIFF AUTO DIFF Differential Comment AUTO DIFF AUTO DIFF CONFIRMED CONFIRMED Ovalocytes 1+ Keratocytes OCC Laboratory Tests Test 11/26/16 11/27/16 04:29 04:57 Sodium Level 141 MEQ/L 142 MEQ/L Potassium Level 3.5 MEQ/L 3.6 MEQ/L Chloride Level 109 MEQ/L 110 MEQ/L Carbon Dioxide Level 20.2 MEQ/L 20.7 MEQ/L Anion Gap 12 MEQ/L 11 MEQ/L Blood Urea Nitrogen 45 MG/DL 53 MG/DL Creatinine 2.18 MG/DL 2.85 MG/DL Estimat Glomerular Filtration 21 ML/MIN 16 ML/MIN Rate Random Glucose 188 MG/DL 174 MG/DL Calcium Level 7.2 MG/DL 7.4 MG/DL Protein Corrected Calcium 8.8 MG/DL 9.0 MG/DL Total Protein 4.3 GM/DL 4.4 GM/DL Total Bilirubin 0.4 MG/DL Aspartate Amino Transf 68 U/L (AST/SGOT) Alanine Aminotransferase 18 U/L (ALT/SGPT) Alkaline Phosphatase 137 U/L Albumin 1.0 GM/DL Imaging Last Impressions Chest X-Ray 11/22/16 0600 Signed Impressions: Service Date/Time: Tuesday, November 22, 2016 04:27 - CONCLUSION: 1. Increasing airspace disease and pleural effusions bilaterally compared with November 21. Endotracheal tube and nasogastric tube remain present. Emeterio Freire MD Chest CT 11/21/16 0000 Signed Impressions: Service Date/Time: Monday, November 21, 2016 22:57 - CONCLUSION: 1. Moderate size right pleural effusion and small left pleural effusion. Right effusion has increased over the last day compared with a recent chest radiograph. 2. Bilateral lung consolidation as above. Differential diagnosis includes pneumonia and aspiration. Emeterio Freire MD Head CT 11/08/16 1657 Signed Impressions: Service Date/Time: Tuesday, November 08, 2016 17:06 - CONCLUSION: Low density seen throughout the posterior circulation regions including the susan and midbrain, cerebellar hemispheres, occipital and posterior medial temporal lobes and right thalamus. This likely represents areas of infarction involving the posterior territory circulation. Jeffery Zhong MD Carotid Artery Ultrasound 11/08/16 0000 Signed Impressions: Service Date/Time: Tuesday, November 08, 2016 22:24 - CONCLUSION: Mild calcified plaque at the carotid bulbs. No evidence of hemodynamically significant carotid stenosis. José Luis Beltran MD Physical Exam CONSTITUTIONAL/GENERAL: This is a thin elderly frail patient, in no apparent distress. Intubated, on vent TUBES/LINES/DRAINS: SKIN: No jaundice, rashes, or lesions. Skin temperature appropriate. Not diaphoretic. EYES: No scleral icterus. No injection or drainage. Fundi not examined. ENT: moist mucosae Orally intubated CARDIOVASCULAR: Regular rate and rhythm without murmurs, gallops, or rubs. No JVD. Peripheral pulses symmetric. RESPIRATORY/CHEST: Symmetric, unlabored respirations. Scattered rhonchi to auscultation. Breath sounds equal bilaterally. GASTROINTESTINAL: Abdomen soft, no reaction to palpation, moderately distended. No hepato-splenomegaly, or palpable masses. Large amount of dark stool in fecal collection sytem GENITOURINARY: Without palpable bladder distension. Tejeda catheter in place with clear yellow urine MUSCULOSKELETAL: Extremities without clubbing, cyanosis, +2 -3 soft pitting edema more prominent on BUE. No joint tenderness or effusion noted. 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 PNA ? aspiration Severe sepsis - clinically better , though still low BP Right sided infiltrate/ HCAP/ ? aspiration PNA Bacteriuria vs recurrent UTI Funguria, C.albicans Diarrhea, C.diff negative - dc zosyn - CFTX - fu blood clx - abx adjustment per clx results -chk sputum clx -cont fluconazole for now dw Shani Cota MD Nov 27, 2016 23:02
[2016-11-28] VITALS (19 sets, daily range): BP systolic 102–148; BP diastolic 52–64; PULSE 56–76; RESP 12–14; TEMP 97.6–98.2; O2SAT 92–100
[2016-11-28] MEDS: cefTRIAXone INJ 2,000 MG in SODIUM CHLORIDE 0.9% INJ 100 ML IV SCH (00:30)
[2016-11-28] MEDS: ALBUMIN HUMAN 25% 25 GM/100 ML BAGP IV SCH ×2 (01:59→16:22)
[2016-11-28] MEDS: RESP: ALBUTEROL 2.5 MG/IPRATROPIUM 0.5 MG NEB (SCH) NEB ×2 (03:57→07:52)
[2016-11-28] MEDS: CHLORHEXIDINE GLUCONATE 2 % 1 PACK (2 CLOTHS) TOP SCH (04:00)
[2016-11-28] MEDS: HIGH DOSE INSULIN NOVOLIN REGULAR SUPPLEMENTAL SCALE SQ SCH ×6 (04:00→20:00)
[2016-11-28 05:00] LABS: AUTOMATED NEUTROPHIL # 2.8 TH/MM3 (1.8-7.7); BASOPHIL % 0.2 % (0.0-2.0); EOSINOPHIL # 0.3 TH/MM3 (0-0.4); EOSINOPHIL % 8.9 % (0.0-4.0); LYMPHOCYTE # 0.4 TH/MM3 (1.0-4.8); MEAN CELL VOLUME 79.4 FL (80.0-100.0); MEAN CORPUSCULAR HEMOGLOBIN 25.8 PG (27.0-34.0); MEAN CORPUSCULAR HGB CONC 32.5 % (32.0-36.0); MONO % 3.3 % (0.0-8.0); NEUT % 77.6 % (16.0-70.0); PLATELET COUNT 106 TH/MM3 (150-450); RED BLOOD COUNT 2.61 MIL/MM3 (4.00-5.30); RED CELL DISTRIBUTION WIDTH 28.6 % (11.6-17.2); WHITE BLOOD COUNT 3.5 TH/MM3 (4.0-11.0)
[2016-11-28 05:08] LABS: HEMO FLAGS AUTO DIFF
[2016-11-28 05:11] LABS: HEMATOCRIT 20.7 % (35.0-46.0)
[2016-11-28 05:28] LABS: ALKALINE PHOSPHATASE 96 U/L (45-117); ALT (GPT) 12 U/L (10-53); ANION GAP 14 MEQ/L (5-15); AST (GOT) 51 U/L (15-37); BICARBONATE 21.5 MEQ/L (21.0-32.0); BLOOD UREA NITROGEN 58 MG/DL (7-18); CHLORIDE 109 MEQ/L (98-107); GLOMERULAR FILTRATION RATE 13 ML/MIN (>89); POTASSIUM 3.7 MEQ/L (3.5-5.1); SODIUM (NA) 144 MEQ/L (136-145); TOTAL BILIRUBIN ADULT 0.6 MG/DL (0.2-1.0)
[2016-11-28] MEDS: FREE WATER G-TUBE SCH ×3 (05:43→18:00)
[2016-11-28 06:53] LABS: BANDS 16 % (0-6); EOSINOPHILS 7 % (0-4); MYELOCYTES 1 % (0-0); POLYS (SEG NEUTROPHILS) 70 % (16-70); WBC DIFF SAMPLE 100
[2016-11-28 06:54] LABS: ACANTHOCYTES OCC (NORMAL); KERATOCYTES OCC (NORMAL); PLATELET ESTIMATE SMEAR LOW (NORMAL); PLATELET MORPHOLOGY NORMAL (NORMAL); SCAN/DIFF FINAL DIFF MANUAL
--- NOTE | 2016-11-28 07:33 | HHI.CCPN ---
Subjective Remarks/Hospital Course This is an 86yF with per report no other past medical history who presented to the ER after she was found unresponsive in her bed. According to ER reports, her family saw her normal last night when she had a fall, with unknown LOC. At that point, he helped her back to bed. However, this morning she did not wake up. On arrival to the ER, she was unresponsive only withdrawing to pain. she was intubated for airway protection and a poor GCS. CT head demonstrated massive posterior-circulation ischemic stroke. The patient is currently intubated and unresponsive and cannot provide any additional history. 11/09: No acute changes overnight. Palliative care team has consult with the family regarding goals of care. Currently the patient's sedation fentanyl infusion has been turned off without any response from patient. The patient notably does withdrawal to pain. 11/10: No change in neurological status. [id number]. The patient withdraws to pain 4 extremities. The patient currently on no sedation, fentanyl infusion discontinued yesterday. Tube feeds were initiated. The patient's urine culture grew back Escherichia coli, the patient was started on antibiotics. Extensive discussion with son regarding patient's neurological status, son Wyatt has had extensive discussion with palliative care.The son feels that yesterday when the patient was spoken to in Pashto the patient squeezed his hand and desires aggressive treatment. The patient's neuro status is unchanged, totally unresponsive with occasional reflexive twitching of feet B/L. Follow-up with neurology Dr. Pack, guarding any further imaging studies. 11/13: No change in neuro exam. Palliative care following. Family wanting full aggressive care. Palliative care will address early trach PEG 11/14: No improvement in neuro status. Son has not made decisions regarding trach and PEG. Apparently he wants to wait longer to see any improvement 11/15: Remains unresponsive. Neuro exam with extensor posturing-unchanged. Son requesting aggressive care. Continues to have low-grade fever 11/16: Clinically no improvement. Tolerates CPAP. Unable to extubate as patient will not protect airway 11/17: Tolerating C Pap but no change in neuro exam. Hemoglobin noted to be 6.8 hemodynamically stable 11/18: Became tachycardic and hypotensive early a.m., placed on assist control. Otherwise neuro exam remains unchanged 11/19: Continues to spike fever Tmax 102, started on vancomycin and cefepime in addition to Levaquin yesterday. Currently only low-grade fever. Received 2 units of blood for hemoglobin of 5.3. CBC pending at this time. No improvement in neuro exam 11/20: White count is 18.3 today, MAXIMUM TEMPERATURE 103.1. Chest x-ray showing right sided infiltrate. Urine culture with gram-negative rods and Brionna albicans. ID consulted Diflucan added 11/21/16: Tmax 101.5. Bilateral lung infiltrates, R>L but slightly improved. No improvement in neuro exam. ID consulted and following. 11/22/16: No fever. CT chest- moderate to large R pleural effusion, bilateral lung infiltrates. ABX per ID. CXR today shows increasing bilateral infiltrates and effusion right more than left. Almost near complete infiltrates on the right lung [place]. Vaginally worsening creatinine today 1.45 indicating multiorgan failure 11/23/16: Hb 9.8 today after 2U PRBC yesterday. Plan for tracheostomy today. INR normal platelet count 116. Worsening creatinine today is 1.6. UO 550 ml in 24 hours. 1L NS bolus and 75 ml per hour maintenance NS. Started on Dopamine 3 mcg per min to maintain MAP>65 11/24 Patient is on ventilator via trach. Afebrile. On Dopamine 4 mics. 11/25 No acute events overnight. s/p EGD yesterday showed mild gastritis unable to place PEG tube endoscopically. Remains on Dopamine 4 mics. On no sedation unresponsive. 11/26 No acute events overnight. On CPAP with PS 20, PEEP: 5 and FIO2 40%. Afebrile. Off Dopamine. Afebrile. 11/27 Patient remains on ventilator via trach on no drips. Afebrile. For PEG tube placement by IR today. 11/28 Patient s/p PEG tube placement by IR yesterday, s/p Rught thoracentesis with removal 700ml CXR showed better aeration of lungs, Hgb 6.7 this morning 2units PRBC ordered. Renal function worse with Cr: 3.40 from 2.85 . Objective Vital Signs Date Time Temp Pulse Resp B/P Pulse Ox O2 Delivery O2 Flow Rate FiO2 11/28/16 06:00 61 11/28/16 04:12 94 40 11/28/16 04:00 97.6 14 117/53 Intake and Output 11/27/16 11/27/16 11/28/16 08:00 16:00 00:00 Intake Total 435 ml 50 ml 50 ml Output Total 200 ml 75 ml 225 ml Balance 235 ml -25 ml -175 ml Result Diagram: 11/28/16 0420 11/28/16 0420 Other Results Laboratory Tests Test 11/28/16 11/28/16 04:20 06:12 White Blood Count 3.5 TH/MM3 Red Blood Count 2.61 MIL/MM3 Hemoglobin 6.7 GM/DL Hematocrit 20.7 % Mean Corpuscular Volume 79.4 FL Mean Corpuscular Hemoglobin 25.8 PG Mean Corpuscular Hemoglobin 32.5 % Concent Red Cell Distribution Width 28.6 % Platelet Count 106 TH/MM3 Mean Platelet Volume 9.0 FL Neutrophils (%) (Auto) 77.6 % Lymphocytes (%) (Auto) 10.0 % Monocytes (%) (Auto) 3.3 % Eosinophils (%) (Auto) 8.9 % Basophils (%) (Auto) 0.2 % Neutrophils # (Auto) 2.8 TH/MM3 Lymphocytes # (Auto) 0.4 TH/MM3 Monocytes # (Auto) 0.1 TH/MM3 Eosinophils # (Auto) 0.3 TH/MM3 Basophils # (Auto) 0.0 TH/MM3 CBC Comment AUTO DIFF Differential Total Cells 100 Counted Neutrophils % (Manual) 70 % Band Neutrophils % 16 % Lymphocytes % 5 % Monocytes % 1 % Eosinophils % 7 % Neutrophils # (Manual) 3.0 TH/MM3 Myelocytes 1 % Differential Comment FINAL DIFF MANUAL Platelet Estimate LOW Platelet Morphology Comment NORMAL Acanthocytes OCC Keratocytes OCC Sodium Level 144 MEQ/L Potassium Level 3.7 MEQ/L Chloride Level 109 MEQ/L Carbon Dioxide Level 21.5 MEQ/L Anion Gap 14 MEQ/L Blood Urea Nitrogen 58 MG/DL Creatinine 3.40 MG/DL Estimat Glomerular Filtration 13 ML/MIN Rate Random Glucose 103 MG/DL Calcium Level 7.6 MG/DL Total Bilirubin 0.6 MG/DL Aspartate Amino Transf 51 U/L (AST/SGOT) Alanine Aminotransferase 12 U/L (ALT/SGPT) Alkaline Phosphatase 96 U/L Total Protein 4.7 GM/DL Albumin 1.7 GM/DL Blood Type O POSITIVE Antibody Screen NEGATIVE Imaging Last Impressions Chest X-Ray 11/27/16 1522 Signed Impressions: Service Date/Time: Sunday, November 27, 2016 15:24 - CONCLUSION: 1. Marked improvement in right lung aeration post thoracentesis. No pneumothorax. 2. Improving bilateral airspace disease. Persistent, small left basilar consolidation/effusion Kirit Alcantar MD Thoracentesis 11/27/16 0000 Signed Impressions: Service Date/Time: Sunday, November 27, 2016 14:18 - CONCLUSION: Uncomplicated ultrasound guided thoracentesis. Kirit Alcantar MD Abdomen Ultrasound 11/27/16 0000 Signed Impressions: Service Date/Time: Sunday, November 27, 2016 08:35 - CONCLUSION: Stone in the neck of the gallbladder. Trace ascites and mild splenomegaly Jeffery Alvarado MD Gastrostomy Tube Placement 11/24/16 0000 Signed Impressions: Service Date/Time: Sunday, November 27, 2016 14:34 - CONCLUSION: Uncomplicated gastrostomy tube placement as above. Kirit Alcantar MD Chest CT 11/21/16 0000 Signed Impressions: Service Date/Time: Monday, November 21, 2016 22:57 - CONCLUSION: 1. Moderate size right pleural effusion and small left pleural effusion. Right effusion has increased over the last day compared with a recent chest radiograph. 2. Bilateral lung consolidation as above. Differential diagnosis includes pneumonia and aspiration. Emeterio Freire MD Head CT 11/08/16 1657 Signed Impressions: Service Date/Time: Tuesday, November 08, 2016 17:06 - CONCLUSION: Low density seen throughout the posterior circulation regions including the susan and midbrain, cerebellar hemispheres, occipital and posterior medial temporal lobes and right thalamus. This likely represents areas of infarction involving the posterior territory circulation. Jeffery Zhong MD Carotid Artery Ultrasound 11/08/16 0000 Signed Impressions: Service Date/Time: Tuesday, November 08, 2016 22:24 - CONCLUSION: Mild calcified plaque at the carotid bulbs. No evidence of hemodynamically significant carotid stenosis. José Luis Beltran MD Objective Remarks GENERAL: Patient is 86 yo on ventilator via trach. SKIN: Warm and dry. HEAD: Normocephalic. EYES: No scleral icterus. No injection or drainage. NECK: Supple, trachea midline. No JVD or lymphadenopathy. CARDIOVASCULAR: Regular rate and rhythm without murmurs, gallops, or rubs. RESPIRATORY: Breath sounds equal bilaterally. Few coarse BS GASTROINTESTINAL: Abdomen soft, non-tender, nondistended. MUSCULOSKELETAL: No cyanosis, or edema. Neuro: Positive corneal reflex. LIDYA. Negative cough. Negative gag. Extensor posturing in uppers. Downgoing Babinski. 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 She was last seen normal, nearly 24 hours, she was not a candidate for any interventional therapy. Unfortunately, given her age, and the extent of the stroke, her prognosis for any reasonable neurologic function is quite poor, and I do not think that we will be able to improve her outcome at all. Her family expressed wishes for a short course of aggressive medical management. Active problems: Massive posterior circulation ischemic CVA Hypoxic and hypercarbic respiratory failure Severe encephalopathy secondary to stroke Severe sepsis Healthcare associated pneumonia with pleural effusion Acute kidney injury UTI Anemia-acute and chronic Hyperglycemia of critical illness Thrombocytopenia Plan Neuro: On no sedation Monitor neuro status and avoid sedatives. Neuro is following -11/08 CT brain: Low density seen throughout the posterior circulation regions including the susan and midbrain, cerebellar hemispheres, occipital and posterior medial temporal lobes and right thalamus. This likely represents areas of infarction involving the posterior territory circulation Resp: -Continue with vent support keep sat >92% Vent bundle, Head of bed 30, bronchodilators -s/p trach 11/23, pulm toilet, trach care -SBT daily as lia -s/p CT guided right thoracentesis with removal 700ml clear fluid. Follow up on fluid analysis CVS: Monitor HR and BP keep MAP>65mmhg 2-D echo -EF 5560 %, mild aortic mitral and tricuspid regurgitation, No RWMA. Carotid ultrasound-no stenosis GI: -Ts/p PEG tube placement by IR 11/27 , start TF(Jevity 1.5 with goal rate 45 ml/hr ) -s/p EGD 11/24 showed mild gastritis unable to place PEG tube endoscopically. -Monitor LFT's, US abdomen: Stone in neck of gall bladder, no hydronephrosis : -Monitor renal function, I/O's, electrolytes replacement as needed. - Renal function worse today with Cr: 3.40 from 2.85 -Given Bumex 1 mg x1 yesterday, on Albumin 25gms Q12. Renal is following- Dr. Zuniga -On Free water 250ml Q6 monitor sodium level. ID: -Continue abx per ID ( Rocephin, Zithromax) monitor for signs of infections ( Fever, WBC) -Urine culture 11/18/16 with Brionna albicans and E coli NOT S Levaquin, but S to zosyn -Infectious disease Dr. Wen, follow up on sputum cx 11/23: nl resp erica Heme: Monitor CBC, for transfusion 2units PRBC today Endo: --Medium dose sliding scale regimen- Proph: Subcutaneous heparin on hold secondary to thrombocytopenia, anemia.. SCDs for DVT prophylaxis Protonix for GI prophylaxis -Palliative care is following IV access: Peripheral IV's, Level 3 Kacy Ayala MD Nov 28, 2016 07:33
[2016-11-28] MEDS: PANTOPRAZOLE SODIUM 40 MG VIAL IV SCH (08:39)
[2016-11-28] MEDS: SODIUM CHLORIDE 0.9% FLUSH 5 ML FLUSH IV FLUSH SCH ×2 (08:39→20:08)
[2016-11-28] MEDS: DOCUSATE SODIUM 100 MG/10 ML UDC G-TUBE SCH ×2 (08:39→20:08)
[2016-11-28] MEDS: CHLORHEXIDINE 0.12% (ORAL KIT) 15 ML CUP MT SCH ×2 (08:39→20:07)
[2016-11-28] MEDS: FERROUS SULFATE 300 MG /5ML UDC PO SCH ×2 (08:39→20:08)
[2016-11-28] MEDS: ARTIFICIAL TEARS OPTH SOLN 15 ML BTL EACH EYE SCH ×3 (08:40→18:00)
[2016-11-28 10:28] LABS: REVIEW FLAG FINAL
[2016-11-28 10:29] LABS: HEMATOCRIT 20.7 % (35.0-46.0)
--- NOTE | 2016-11-28 12:12 | HHI.NPPN ---
Subjective History of Present Illness 86 year old with CVA, Resp failure s/p Trach Review of Systems General Constitutional: Fatigue Objective Data Data 11/27/16 11/28/16 19:00 07:00 Intake Total 50 ml 650 ml Output Total 75 ml 425 ml Balance -25 ml 225 ml IV Total 50 ml 150 ml Other 500 ml Output Urine Total 75 ml 425 ml # Bowel Movements 0 Vital Signs Date Time Temp Pulse Resp B/P Pulse Ox O2 Delivery O2 Flow Rate FiO2 11/28/16 10:32 92 35 11/28/16 07:54 100 35 11/28/16 06:00 61 11/28/16 04:12 94 40 11/28/16 04:00 97.6 58 14 117/53 93 11/28/16 04:00 40 11/28/16 04:00 58 11/28/16 02:00 56 11/28/16 01:12 93 40 11/28/16 00:00 59 11/28/16 00:00 98.1 59 12 117/52 99 11/28/16 00:00 40 11/27/16 22:11 100 40 11/27/16 22:00 62 11/27/16 20:01 95 40 11/27/16 20:00 61 11/27/16 20:00 97.9 61 15 108/59 99 11/27/16 20:00 40 11/27/16 18:00 66 11/27/16 16:18 100 40 11/27/16 16:00 67 11/27/16 16:00 40 11/27/16 16:00 98.1 67 11 107/52 100 11/27/16 14:15 100 100 11/27/16 14:00 83 -: 11/28/16 0937 11/28/16 0420 Physical Exam General Appearance: Pale Neck Neck Remarks s/p trach Pulmonary Resp Exam: Decreased Bases Cardiology CV Exam: Regular Gastrointestinal/Abdomen GI Exam: Soft, Non-Tender Extremeties Extremities Exam: Moderate Edema Assessment/Plan Problem List: (1) Acute renal failure Plan: Patient has multiple issues and has malnutrition with poor albumin contributing to low oncotic pressure, ATN Cr rising H/H low getting PRBC give Lasix post PRBC Try high dose loop diuretics to induce diuresis follow BMP (2) Metabolic acidosis Plan: will follow (3) Pneumonia Plan: On Ceftriaxone/Fluconazole (4) Urinary tract infection Plan: Escherichia coli she is on Ceftriaxone (5) CVA (cerebral vascular accident) Plan: Massive stroke neurology following (6) Rhabdomyolysis Plan: This resolved Problem Qualifiers (1) Acute renal failure: Qualified Code: N17.9 - Acute renal failure, unspecified acute renal failure type (2) CVA (cerebral vascular accident): Qualified Code: I63.9 - Cerebrovascular accident (CVA), unspecified mechanism (3) Rhabdomyolysis: Qualified Code: M62.82 - Non-traumatic rhabdomyolysis Kristel Zuniga MD Nov 28, 2016 12:12
[2016-11-28] MEDS ORDERED: FUROSEMIDE 100 MG/10 ML VIAL IV PUSH ONE (12:15)
--- NOTE | 2016-11-28 13:40 | HHI.HCPN ---
Reason for visit a. To assist with evaluation and management of symptoms including: pain; dyspnea; encephalopathy b. To assist medical decision maker(s) with: better understanding of current medical conditions; weighing benefits/burdens of medical treatment options; making medical treatment decisions. . Subjective/Interval History 86 y/o female with devastating posterior circulation stroke, TRACH PLACED , PEG placed and thoracentesis by IR on 11/27/16. Patient seen and examined in ICU. No family at bedside. She remains off sedation , unresponsive. Albumin 1.7. Afebrile. Otherwise vital signs stable. Hemoglobin 6.7, hematocrit 20.7, platelets 106. Getting transfusion at the time of my visit. Creatinine rising again increased from 2.85 to 3.40. . Family/friend interactions Attempted to call son, voicemail box not set up yet. Will attempt to call again. Advance Directives Living Will: Never completed Health Care Surrogate: Never completed Durable Power of Attorney Law Clerk: Never completed Advance Directive Specifics Date completed: Advance directives were never completed . Health Care Surrogate(s): There is no known written designation of health care surrogate . Documented care wishes: There is no written documentation of health care goals/preferences. . Significant change in goals: NO CODE. Desires continued aggressive care. Attempting to reach son to provide update and review worsening renal function and anemia. Objective Vital Signs Date Time Temp Pulse Resp B/P Pulse Ox O2 Delivery O2 Flow Rate FiO2 11/28/16 13:06 100 35 11/28/16 10:32 92 35 11/28/16 07:54 100 35 11/28/16 06:00 61 11/28/16 04:12 94 40 11/28/16 04:00 97.6 58 14 117/53 93 11/28/16 04:00 40 11/28/16 04:00 58 11/28/16 02:00 56 11/28/16 01:12 93 40 11/28/16 00:00 59 11/28/16 00:00 98.1 59 12 117/52 99 11/28/16 00:00 40 11/27/16 22:11 100 40 11/27/16 22:00 62 11/27/16 20:01 95 40 11/27/16 20:00 61 11/27/16 20:00 97.9 61 15 108/59 99 11/27/16 20:00 40 11/27/16 18:00 66 11/27/16 16:18 100 40 11/27/16 16:00 67 11/27/16 16:00 40 11/27/16 16:00 98.1 67 11 107/52 100 11/27/16 14:15 100 100 11/27/16 14:00 83 Intake & Output 11/28/16 11/28/16 07:00 19:00 Intake Total 650 ml Output Total 425 ml Balance 225 ml IV Total 150 ml Other 500 ml Output Urine Total 425 ml # Bowel Movements 0 Physical Exam CONSTITUTIONAL/GENERAL: This is an adequately nourished patient, intubated, on CPAP; in an MICU bed. Responsiveness limited to decerebrate posturing with noxious stimuli. TUBES/LINES/DRAINS: trach, NG tube; PEG tube, Tejeda catheter; peripheral IVs; dressing LE, podus boots. CARDIOVASCULAR: Regular rate and rhythm. RESPIRATORY/CHEST: Symmetric, unlabored respirations. Breath sounds equal bilaterally. Coarse breath sounds bilaterally. No wheezes, rales. GASTROINTESTINAL: Abdomen soft, non-tender, nondistended. No hepato-splenomegaly , or palpable masses. No guarding. Bowel sounds hypoactive. GENITOURINARY: Without palpable bladder distension. Tejeda catheter in place. MUSCULOSKELETAL: Extremities with worsening edema. No mottling. NEUROLOGICAL: Does not awaken to loud voice or exam. Unable to follow commands. Decerebrate posturing to noxious stimuli. PSYCHIATRIC: Unable to evaluate due to level of responsiveness. . Diagnostic Tests Laboratory Laboratory Tests Test 11/26/16 11/27/16 11/28/16 11/28/16 04:29 04:57 04:20 06:12 White Blood Count 6.2 TH/MM3 6.9 TH/MM3 3.5 TH/MM3 (4.0-11.0) (4.0-11.0) (4.0-11.0) Red Blood Count 3.37 MIL/MM3 2.98 MIL/MM3 2.61 MIL/MM3 (4.00-5.30) (4.00-5.30) (4.00-5.30) Hemoglobin 8.5 GM/DL 7.7 GM/DL 6.7 GM/DL (11.6-15.3) (11.6-15.3) (11.6-15.3) Hematocrit 27.2 % 23.8 % 20.7 % (35.0-46.0) (35.0-46.0) (35.0-46.0) Mean Corpuscular Volume 80.9 FL 80.1 FL 79.4 FL (80.0-100.0) (80.0-100.0) (80.0-100.0) Mean Corpuscular Hemoglobin 25.3 PG 25.7 PG 25.8 PG (27.0-34.0) (27.0-34.0) (27.0-34.0) Mean Corpuscular Hemoglobin 31.3 % 32.1 % 32.5 % Concent (32.0-36.0) (32.0-36.0) (32.0-36.0) Red Cell Distribution Width 28.4 % 28.4 % 28.6 % (11.6-17.2) (11.6-17.2) (11.6-17.2) Platelet Count 131 TH/MM3 126 TH/MM3 106 TH/MM3 (150-450) (150-450) (150-450) Mean Platelet Volume 9.2 FL 9.1 FL 9.0 FL (7.0-11.0) (7.0-11.0) (7.0-11.0) Neutrophils (%) (Auto) 72.1 % 71.8 % 77.6 % (16.0-70.0) (16.0-70.0) (16.0-70.0) Lymphocytes (%) (Auto) 8.6 % 8.7 % 10.0 % (9.0-44.0) (9.0-44.0) (9.0-44.0) Monocytes (%) (Auto) 10.6 % 10.1 % 3.3 % (0.0-8.0) (0.0-8.0) (0.0-8.0) Eosinophils (%) (Auto) 8.3 % (0.0-4.0) 9.0 % (0.0-4.0) 8.9 % (0.0-4.0) Basophils (%) (Auto) 0.4 % (0.0-2.0) 0.4 % (0.0-2.0) 0.2 % (0.0-2.0) Neutrophils # (Auto) 4.5 TH/MM3 5.0 TH/MM3 2.8 TH/MM3 (1.8-7.7) (1.8-7.7) (1.8-7.7) Lymphocytes # (Auto) 0.5 TH/MM3 0.6 TH/MM3 0.4 TH/MM3 (1.0-4.8) (1.0-4.8) (1.0-4.8) Monocytes # (Auto) 0.7 TH/MM3 0.7 TH/MM3 0.1 TH/MM3 (0-0.9) (0-0.9) (0-0.9) Eosinophils # (Auto) 0.5 TH/MM3 0.6 TH/MM3 0.3 TH/MM3 (0-0.4) (0-0.4) (0-0.4) Basophils # (Auto) 0.0 TH/MM3 0.0 TH/MM3 0.0 TH/MM3 (0-0.2) (0-0.2) (0-0.2) CBC Comment AUTO DIFF AUTO DIFF AUTO DIFF Differential Comment AUTO DIFF AUTO DIFF FINAL DIFF CONFIRMED CONFIRMED MANUAL Ovalocytes 1+ (NORMAL) Sodium Level 141 MEQ/L 142 MEQ/L 144 MEQ/L (136-145) (136-145) (136-145) Potassium Level 3.5 MEQ/L 3.6 MEQ/L 3.7 MEQ/L (3.5-5.1) (3.5-5.1) (3.5-5.1) Chloride Level 109 MEQ/L 110 MEQ/L 109 MEQ/L (98-107) (98-107) (98-107) Carbon Dioxide Level 20.2 MEQ/L 20.7 MEQ/L 21.5 MEQ/L (21.0-32.0) (21.0-32.0) (21.0-32.0) Anion Gap 12 MEQ/L (5-15) 11 MEQ/L (5-15) 14 MEQ/L (5-15) Blood Urea Nitrogen 45 MG/DL (7-18) 53 MG/DL (7-18) 58 MG/DL (7-18) Creatinine 2.18 MG/DL 2.85 MG/DL 3.40 MG/DL (0.50-1.00) (0.50-1.00) (0.50-1.00) Estimat Glomerular Filtration 21 ML/MIN (>89) 16 ML/MIN (>89) 13 ML/MIN (>89) Rate Random Glucose 188 MG/DL 174 MG/DL 103 MG/DL (74-106) (74-106) (74-106) Calcium Level 7.2 MG/DL 7.4 MG/DL 7.6 MG/DL (8.5-10.1) (8.5-10.1) (8.5-10.1) Protein Corrected Calcium 8.8 MG/DL 9.0 MG/DL (8.5-10.1) (8.5-10.1) Total Protein 4.3 GM/DL 4.4 GM/DL 4.7 GM/DL (6.4-8.2) (6.4-8.2) (6.4-8.2) Keratocytes OCC (NORMAL) OCC (NORMAL) Total Bilirubin 0.4 MG/DL 0.6 MG/DL (0.2-1.0) (0.2-1.0) Aspartate Amino Transf 68 U/L (15-37) 51 U/L (15-37) (AST/SGOT) Alanine Aminotransferase 18 U/L (10-53) 12 U/L (10-53) (ALT/SGPT) Alkaline Phosphatase 137 U/L 96 U/L (45-117) (45-117) Albumin 1.0 GM/DL 1.7 GM/DL (3.4-5.0) (3.4-5.0) Differential Total Cells 100 Counted Neutrophils % (Manual) 70 % (16-70) Band Neutrophils % 16 % (0-6) Lymphocytes % 5 % (9-44) Monocytes % 1 % (0-8) Eosinophils % 7 % (0-4) Neutrophils # (Manual) 3.0 TH/MM3 (1.8-7.7) Myelocytes 1 % (0-0) Platelet Estimate LOW (NORMAL) Platelet Morphology Comment NORMAL (NORMAL) Acanthocytes OCC (NORMAL) Blood Type O POSITIVE Antibody Screen NEGATIVE Crossmatch Leukocyte-Reduced Red Blood Cells Blood Bank Comment Test 11/28/16 09:37 Hemoglobin 6.5 GM/DL (11.6-15.3) Hematocrit 20.7 % (35.0-46.0) Result Diagram: 11/28/16 0937 11/28/16 0420 Imaging Last Impressions Chest X-Ray 11/27/16 1522 Signed Impressions: Service Date/Time: Sunday, November 27, 2016 15:24 - CONCLUSION: 1. Marked improvement in right lung aeration post thoracentesis. No pneumothorax. 2. Improving bilateral airspace disease. Persistent, small left basilar consolidation/effusion Kirit Alcantar MD Thoracentesis 11/27/16 0000 Signed Impressions: Service Date/Time: Sunday, November 27, 2016 14:18 - CONCLUSION: Uncomplicated ultrasound guided thoracentesis. Kirit Alcantar MD Abdomen Ultrasound 11/27/16 0000 Signed Impressions: Service Date/Time: Sunday, November 27, 2016 08:35 - CONCLUSION: Stone in the neck of the gallbladder. Trace ascites and mild splenomegaly Jeffery Alvarado MD Gastrostomy Tube Placement 11/24/16 0000 Signed Impressions: Service Date/Time: Sunday, November 27, 2016 14:34 - CONCLUSION: Uncomplicated gastrostomy tube placement as above. Kirit Alcantar MD Chest CT 11/21/16 0000 Signed Impressions: Service Date/Time: Monday, November 21, 2016 22:57 - CONCLUSION: 1. Moderate size right pleural effusion and small left pleural effusion. Right effusion has increased over the last day compared with a recent chest radiograph. 2. Bilateral lung consolidation as above. Differential diagnosis includes pneumonia and aspiration. Emeterio Freire MD Head CT 11/08/16 1657 Signed Impressions: Service Date/Time: Tuesday, November 08, 2016 17:06 - CONCLUSION: Low density seen throughout the posterior circulation regions including the susan and midbrain, cerebellar hemispheres, occipital and posterior medial temporal lobes and right thalamus. This likely represents areas of infarction involving the posterior territory circulation. Jeffery Zhong MD Carotid Artery Ultrasound 11/08/16 0000 Signed Impressions: Service Date/Time: Tuesday, November 08, 2016 22:24 - CONCLUSION: Mild calcified plaque at the carotid bulbs. No evidence of hemodynamically significant carotid stenosis. José Luis Beltran MD . Procedures * Intubation/mechanical ventilation * Trach 3/30/17 . Assessment and Plan Disease Oriented Problem List: (1) CVA (cerebral vascular accident) Comment: Very large posterior circulation stroke. No signs of neurological recovery. Prognosis grim. . . (2) Rhabdomyolysis (3) Dementia Comment: Family reports at least a 7 year history of dementia. . (4) Thrombocytopenia (5) Malnutrition Comment: Presenting albumin level was 2.8 . (6) Anemia (7) Urinary tract infection Comment: Cx of 11/08 --> E coli and Enterococcus . (8) Pneumonia Comment: Sputum cx of 11/12 growing Staph aureus. . Symptom Scale: (1) Pain 0-10 Scale: Unable to quantify Comment: Patient had no known prior pain syndromes. Current possible sources of pain include prolonged bedbound status; orotracheal intubation; vascular access catheters; Tejeda catheter. . (2) Dyspnea 0-10 Scale: Unable to quantify Comment: Dyspnea currently controlled with mechanical ventilation. . (3) Encephalopathy 0-10 Scale: Unable to quantify Comment: Patient was minimally responsive on arrival. No evidence of neurologic recovery. Off all sedation. Pertinent Non-Medical Issues Psychosocial: Normally lives with her sister. Her son lives by visits frequently. Spiritual: Patient is a Protestant. Blood products should not be given without the son's permission ---> her son DID consent to blood transfusion . Legal: No advance directives. Son would be the appropriate proxy health care decision-maker under the [place] statutes hierarchy. Ethical issues impacting care: Patient is incapacitated to make her own health care decisions and is not expected to regain such capacity . Important Contacts Wyatt Crawford (son and healthcare proxy) [phone] . Prognosis This is an 86-year-old female who was suffered a fairly massive posterior circulation stroke. This is on top of at least a seven-year history of dementia with the patient was already requiring assistance with most of her ADLs. There is a high risk of during this hospitalization. Should she survive, she will require tracheostomy to protect her airway as well as ongoing artificial nutrition. She will not have meaningful interaction with her environment. The patient would certainly be eligible for hospice services at such time that family believes the patient's goals would best be honored by transitioning to "comfort measures only." . Code Status: No Code Plan * NO CODE- per patient's son on 11/23/16 * DECISION-MAKING: The patient lacks capacity for decision-making, and she will not regain capacity. Her son, Wyatt Crawford, is the legal health care proxy. * GOALS: The patient is a Protestant. No blood products should be given without the son's permission; he DID consent to transfusion on 11/18 and . He said on 11/22/16 that he wanted trach and PEG, and then probable transfer to long care nursing (if she survives to that point). Son wants pt to be DNR, so she will naturally "when God calls her home." 11/28/16: S/P PEG by IR 11/27/16. Attempted to reach sonWyatt to provide medical update (worsening anemia and renal function - poor candidate for dialysis fper Dr. Zuniga attempting to diurese) - no voicemail set up will continue to attempt to call son. * SYMPTOMS: It is difficult to know when she has pain or dyspnea, and we will continue to observe closely for signs of suffering. Certainly her bedbound status and recent procedures could be painful. No new med recommendations at this time. * Palliative care will continue to follow to assist with symptom management and to help clarify goals of medical treatment as the clinical course evolves. . Attestation To help prompt me to consider important information that might be impacting today's encounter and assessment, information from prior notes written by myself or my colleagues may have been "brought forward" into today's note. My signature on this note, however, is an attestation that I personally performed the exam, history, and/or decision-making noted today, and, unless otherwise indicated, the interactions with patient, family, and staff as well as the review of records all occurred today. I also attest that the listed assessment and stated plan reflect my best clinical judgment today based on the combination of historical information, prior notes, and today's exam/ interactions. When time spent is documented, it refers only to time spent today by the signer, or if indicated, combined time spent today by collaborating physician/nurse practitioner. ZAIN TITUS Nov 28, 2016 13:40
[2016-11-28] MEDS: FLUCONAZOLE 200 MG PREMIX BAG 100 ML IV SCH (16:23)
[2016-11-28 17:58] LABS: REVIEW FLAG FINAL
[2016-11-28] MEDS: BUMETANIDE INJ 1 MG/4 ML VIAL IV PUSH SCH (18:29)
[2016-11-29] VITALS (18 sets, daily range): BP systolic 117–150; BP diastolic 56–67; PULSE 67–85; RESP 12–16; TEMP 97.7–98.3; O2SAT 98–100
[2016-11-29] MEDS: cefTRIAXone INJ 2,000 MG in SODIUM CHLORIDE 0.9% INJ 100 ML IV SCH (00:39)
[2016-11-29] MEDS: ALBUMIN HUMAN 25% 25 GM/100 ML BAGP IV SCH ×2 (02:29→15:00)
[2016-11-29] MEDS: HIGH DOSE INSULIN NOVOLIN REGULAR SUPPLEMENTAL SCALE SQ SCH ×5 (04:00→20:00)
[2016-11-29] MEDS: CHLORHEXIDINE GLUCONATE 2 % 1 PACK (2 CLOTHS) TOP SCH (04:00)
[2016-11-29 04:37] LABS: BICARBONATE 20.7 MEQ/L (21.0-32.0); POTASSIUM 3.9 MEQ/L (3.5-5.1)
[2016-11-29 05:44] LABS: AUTOMATED NEUTROPHIL # 3.9 TH/MM3 (1.8-7.7); BASOPHIL % 0.2 % (0.0-2.0); EOSINOPHIL # 0.8 TH/MM3 (0-0.4); EOSINOPHIL % 14.7 % (0.0-4.0); HEMATOCRIT 27.1 % (35.0-46.0); LYMPH % 7.6 % (9.0-44.0); LYMPHOCYTE # 0.4 TH/MM3 (1.0-4.8); MEAN CELL VOLUME 81.1 FL (80.0-100.0); MEAN CORPUSCULAR HEMOGLOBIN 26.6 PG (27.0-34.0); MEAN CORPUSCULAR HGB CONC 32.8 % (32.0-36.0); MONO % 7.5 % (0.0-8.0); PLATELET COUNT 110 TH/MM3 (150-450); RED BLOOD COUNT 3.35 MIL/MM3 (4.00-5.30); RED CELL DISTRIBUTION WIDTH 23.5 % (11.6-17.2); WHITE BLOOD COUNT 5.5 TH/MM3 (4.0-11.0)
[2016-11-29 05:56] LABS: HEMO FLAGS AUTO DIFF
[2016-11-29] MEDS: FREE WATER G-TUBE SCH ×4 (06:00→18:00)
[2016-11-29] MEDS: EPOETIN ALFA 10,000 UNITS/ML VIAL SQ SCH (06:23)
[2016-11-29 07:10] LABS: KERATOCYTES OCC (NORMAL); POLYCHROMASIA 2.3 % (0.0-1.9); SCAN/DIFF AUTO DIFF CONFIRMED
[2016-11-29] MEDS: CHLORHEXIDINE 0.12% (ORAL KIT) 15 ML CUP MT SCH ×2 (08:00→20:22)
[2016-11-29] MEDS: BUMETANIDE INJ 1 MG/4 ML VIAL IV PUSH SCH ×2 (09:00→18:00)
[2016-11-29] MEDS: SODIUM CHLORIDE 0.9% FLUSH 5 ML FLUSH IV FLUSH SCH ×2 (09:00→20:22)
[2016-11-29] MEDS: PANTOPRAZOLE SODIUM 40 MG VIAL IV SCH (09:00)
[2016-11-29] MEDS: FERROUS SULFATE 300 MG /5ML UDC PO SCH ×2 (09:00→20:21)
[2016-11-29] MEDS: DOCUSATE SODIUM 100 MG/10 ML UDC G-TUBE SCH ×2 (09:00→20:21)
[2016-11-29] MEDS: ARTIFICIAL TEARS OPTH SOLN 15 ML BTL EACH EYE SCH ×3 (09:00→18:00)
--- NOTE | 2016-11-29 09:18 | HHI.NPPN ---
Subjective History of Present Illness 86 year old with CVA, Resp failure s/p Trach/ PEG Review of Systems General Constitutional: Fatigue Objective Data Data 11/28/16 11/29/16 19:00 07:00 Intake Total 325 ml 770 ml Output Total 125 ml 750 ml Balance 200 ml 20 ml IV Total 75 ml 200 ml Tube Feeding 160 ml Albumin 100 ml Other 250 ml 310 ml Output Urine Total 125 ml 750 ml # Bowel Movements 0 Vital Signs Date Time Temp Pulse Resp B/P Pulse Ox O2 Delivery O2 Flow Rate FiO2 11/29/16 07:48 100 30 11/29/16 06:00 71 11/29/16 04:00 35 11/29/16 04:00 98.0 73 12 134/59 100 11/29/16 04:00 73 11/29/16 03:18 100 35 11/29/16 02:00 72 11/29/16 00:00 35 11/29/16 00:00 72 11/29/16 00:00 97.7 73 13 117/56 100 11/28/16 22:00 74 11/28/16 20:00 73 11/28/16 20:00 35 11/28/16 20:00 74 11/28/16 20:00 98.2 73 13 124/60 100 11/28/16 19:41 100 35 11/28/16 18:00 76 11/28/16 16:00 75 11/28/16 16:00 40 11/28/16 16:00 98.1 75 12 148/64 99 11/28/16 15:24 99 35 11/28/16 14:00 71 11/28/16 13:06 100 35 11/28/16 12:00 40 11/28/16 12:00 98.2 67 14 102/52 99 11/28/16 12:00 67 11/28/16 10:32 92 35 11/28/16 10:00 66 -: 11/29/16 0526 11/29/16 0350 Physical Exam General Appearance: Pale Neck Neck Remarks s/p trach Pulmonary Resp Exam: Decreased Bases Cardiology CV Exam: Regular Gastrointestinal/Abdomen GI Exam: Soft, Non-Tender Extremeties Extremities Exam: Moderate Edema Assessment/Plan Problem List: (1) Acute renal failure Plan: Patient has multiple issues and has malnutrition with poor albumin contributing to low oncotic pressure, ATN Cr rising poor response to high dose diuretics UOP marginal 875 ml poor candidate for dialysis Hospice is appropriate CVA large posterior stroke with dementia very poor prognosis Palliative care to clarify terminal carman goals (2) Metabolic acidosis Plan: will follow (3) Pneumonia Plan: On Ceftriaxone/Fluconazole (4) Urinary tract infection Plan: Escherichia coli she is on Ceftriaxone (5) CVA (cerebral vascular accident) Plan: Massive stroke neurology following (6) Rhabdomyolysis Plan: This resolved Problem Qualifiers (1) Acute renal failure: Qualified Code: N17.9 - Acute renal failure, unspecified acute renal failure type (2) CVA (cerebral vascular accident): Qualified Code: I63.9 - Cerebrovascular accident (CVA), unspecified mechanism (3) Rhabdomyolysis: Qualified Code: M62.82 - Non-traumatic rhabdomyolysis Kristel Zuniga MD Nov 29, 2016 09:18
--- NOTE | 2016-11-29 10:23 | HHI.CCPN ---
Subjective Remarks/Hospital Course This is an 86yF with per report no other past medical history who presented to the ER after she was found unresponsive in her bed. According to ER reports, her family saw her normal last night when she had a fall, with unknown LOC. At that point, he helped her back to bed. However, this morning she did not wake up. On arrival to the ER, she was unresponsive only withdrawing to pain. she was intubated for airway protection and a poor GCS. CT head demonstrated massive posterior-circulation ischemic stroke. The patient is currently intubated and unresponsive and cannot provide any additional history. 11/09: No acute changes overnight. Palliative care team has consult with the family regarding goals of care. Currently the patient's sedation fentanyl infusion has been turned off without any response from patient. The patient notably does withdrawal to pain. 11/10: No change in neurological status. [id number]. The patient withdraws to pain 4 extremities. The patient currently on no sedation, fentanyl infusion discontinued yesterday. Tube feeds were initiated. The patient's urine culture grew back Escherichia coli, the patient was started on antibiotics. Extensive discussion with son regarding patient's neurological status, son Wyatt has had extensive discussion with palliative care.The son feels that yesterday when the patient was spoken to in Hebrew the patient squeezed his hand and desires aggressive treatment. The patient's neuro status is unchanged, totally unresponsive with occasional reflexive twitching of feet B/L. Follow-up with neurology Dr. Pack, guarding any further imaging studies. 11/13: No change in neuro exam. Palliative care following. Family wanting full aggressive care. Palliative care will address early trach PEG 11/14: No improvement in neuro status. Son has not made decisions regarding trach and PEG. Apparently he wants to wait longer to see any improvement 11/15: Remains unresponsive. Neuro exam with extensor posturing-unchanged. Son requesting aggressive care. Continues to have low-grade fever 11/16: Clinically no improvement. Tolerates CPAP. Unable to extubate as patient will not protect airway 11/17: Tolerating C Pap but no change in neuro exam. Hemoglobin noted to be 6.8 hemodynamically stable 11/18: Became tachycardic and hypotensive early a.m., placed on assist control. Otherwise neuro exam remains unchanged 11/19: Continues to spike fever Tmax 102, started on vancomycin and cefepime in addition to Levaquin yesterday. Currently only low-grade fever. Received 2 units of blood for hemoglobin of 5.3. CBC pending at this time. No improvement in neuro exam 11/20: White count is 18.3 today, MAXIMUM TEMPERATURE 103.1. Chest x-ray showing right sided infiltrate. Urine culture with gram-negative rods and Brionna albicans. ID consulted Diflucan added 11/21/16: Tmax 101.5. Bilateral lung infiltrates, R>L but slightly improved. No improvement in neuro exam. ID consulted and following. 11/22/16: No fever. CT chest- moderate to large R pleural effusion, bilateral lung infiltrates. ABX per ID. CXR today shows increasing bilateral infiltrates and effusion right more than left. Almost near complete infiltrates on the right lung [place]. Vaginally worsening creatinine today 1.45 indicating multiorgan failure 11/23/16: Hb 9.8 today after 2U PRBC yesterday. Plan for tracheostomy today. INR normal platelet count 116. Worsening creatinine today is 1.6. UO 550 ml in 24 hours. 1L NS bolus and 75 ml per hour maintenance NS. Started on Dopamine 3 mcg per min to maintain MAP>65 11/24 Patient is on ventilator via trach. Afebrile. On Dopamine 4 mics. 11/25 No acute events overnight. s/p EGD yesterday showed mild gastritis unable to place PEG tube endoscopically. Remains on Dopamine 4 mics. On no sedation unresponsive. 11/26 No acute events overnight. On CPAP with PS 20, PEEP: 5 and FIO2 40%. Afebrile. Off Dopamine. Afebrile. 11/27 Patient remains on ventilator via trach on no drips. Afebrile. For PEG tube placement by IR today. 11/28 Patient s/p PEG tube placement by IR yesterday, s/p Right thoracentesis with removal 700ml CXR showed better aeration of lungs, Hgb 6.7 this morning 2units PRBC ordered. Renal function worse with Cr: 3.40 from 2.85 . 11/29: Remains encephalopathic on mechanical ventilation via tracheostomy. Objective Vital Signs Date Time Temp Pulse Resp B/P Pulse Ox O2 Delivery O2 Flow Rate FiO2 11/29/16 07:48 100 30 11/29/16 06:00 71 11/29/16 04:00 98.0 12 134/59 Intake and Output 11/28/16 11/28/16 11/29/16 08:00 16:00 00:00 Intake Total 600 ml 325 ml 320 ml Output Total 200 ml 125 ml 400 ml Balance 400 ml 200 ml -80 ml Result Diagram: 11/29/16 0526 11/29/16 0350 Other Results Laboratory Tests Test 11/28/16 11/29/16 11/29/16 17:42 03:50 05:26 Hemoglobin 9.2 GM/DL 8.9 GM/DL Hematocrit 29.0 % 27.1 % Sodium Level 142 MEQ/L Potassium Level 3.9 MEQ/L Chloride Level 107 MEQ/L Carbon Dioxide Level 20.7 MEQ/L Anion Gap 14 MEQ/L Blood Urea Nitrogen 67 MG/DL Creatinine 3.62 MG/DL Estimat Glomerular Filtration 12 ML/MIN Rate Random Glucose 130 MG/DL Calcium Level 8.0 MG/DL White Blood Count 5.5 TH/MM3 Red Blood Count 3.35 MIL/MM3 Mean Corpuscular Volume 81.1 FL Mean Corpuscular Hemoglobin 26.6 PG Mean Corpuscular Hemoglobin 32.8 % Concent Red Cell Distribution Width 23.5 % Platelet Count 110 TH/MM3 Mean Platelet Volume 8.5 FL Neutrophils (%) (Auto) 70.0 % Lymphocytes (%) (Auto) 7.6 % Monocytes (%) (Auto) 7.5 % Eosinophils (%) (Auto) 14.7 % Basophils (%) (Auto) 0.2 % Neutrophils # (Auto) 3.9 TH/MM3 Lymphocytes # (Auto) 0.4 TH/MM3 Monocytes # (Auto) 0.4 TH/MM3 Eosinophils # (Auto) 0.8 TH/MM3 Basophils # (Auto) 0.0 TH/MM3 CBC Comment AUTO DIFF Differential Comment AUTO DIFF CONFIRMED Polychromasia 2.3 % Keratocytes OCC Imaging Last Impressions Chest X-Ray 11/27/16 1522 Signed Impressions: Service Date/Time: Sunday, November 27, 2016 15:24 - CONCLUSION: 1. Marked improvement in right lung aeration post thoracentesis. No pneumothorax. 2. Improving bilateral airspace disease. Persistent, small left basilar consolidation/effusion Kirit Alcantar MD Thoracentesis 11/27/16 0000 Signed Impressions: Service Date/Time: Sunday, November 27, 2016 14:18 - CONCLUSION: Uncomplicated ultrasound guided thoracentesis. Kirit Alcantar MD Abdomen Ultrasound 11/27/16 0000 Signed Impressions: Service Date/Time: Sunday, November 27, 2016 08:35 - CONCLUSION: Stone in the neck of the gallbladder. Trace ascites and mild splenomegaly Jeffery Alvarado MD Gastrostomy Tube Placement 11/24/16 0000 Signed Impressions: Service Date/Time: Sunday, November 27, 2016 14:34 - CONCLUSION: Uncomplicated gastrostomy tube placement as above. Kirit Alcantar MD Chest CT 11/21/16 0000 Signed Impressions: Service Date/Time: Monday, November 21, 2016 22:57 - CONCLUSION: 1. Moderate size right pleural effusion and small left pleural effusion. Right effusion has increased over the last day compared with a recent chest radiograph. 2. Bilateral lung consolidation as above. Differential diagnosis includes pneumonia and aspiration. Emeterio Freire MD Head CT 11/08/16 1657 Signed Impressions: Service Date/Time: Tuesday, November 08, 2016 17:06 - CONCLUSION: Low density seen throughout the posterior circulation regions including the susan and midbrain, cerebellar hemispheres, occipital and posterior medial temporal lobes and right thalamus. This likely represents areas of infarction involving the posterior territory circulation. Jeffery Zhong MD Carotid Artery Ultrasound 11/08/16 0000 Signed Impressions: Service Date/Time: Tuesday, November 08, 2016 22:24 - CONCLUSION: Mild calcified plaque at the carotid bulbs. No evidence of hemodynamically significant carotid stenosis. José Luis Beltran MD Objective Remarks GENERAL: Patient is 86 yo on ventilator via trach. SKIN: Warm and dry. HEAD: Normocephalic. EYES: No scleral icterus. No injection or drainage. NECK: Supple, trachea midline. No JVD or lymphadenopathy. CARDIOVASCULAR: Regular rate and rhythm without murmurs, gallops, or rubs. RESPIRATORY: Breath sounds equal bilaterally. Few coarse BS GASTROINTESTINAL: Abdomen soft, non-tender, nondistended. PEG in place MUSCULOSKELETAL: No cyanosis, or edema. Neuro: Positive corneal reflex. LIDYA. Negative cough. Negative gag. Extensor posturing in uppers. Downgoing Babinski. 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 She was last seen normal, nearly 24 hours, she was not a candidate for any interventional therapy. Unfortunately, given her age, and the extent of the stroke, her prognosis for any reasonable neurologic function is quite poor, and I do not think that we will be able to improve her outcome at all. Her family expressed wishes for a short course of aggressive medical management. Active problems: Massive posterior circulation ischemic CVA Hypoxic and hypercarbic respiratory failure Severe encephalopathy secondary to stroke Severe sepsis Healthcare associated pneumonia with pleural effusion Acute kidney injury UTI Anemia-acute and chronic Hyperglycemia of critical illness Thrombocytopenia Plan Neuro: On no sedation Monitor neuro status and avoid sedatives. Neuro is following -11/08 CT brain: Low density seen throughout the posterior circulation regions including the susan and midbrain, cerebellar hemispheres, occipital and posterior medial temporal lobes and right thalamus. This likely represents areas of infarction involving the posterior territory circulation Resp: -Continue with vent support keep sat >92% Vent bundle, Head of bed 30, bronchodilators -s/p trach 11/23, pulm toilet, trach care -SBT daily as lia -s/p CT guided right thoracentesis with removal 700ml clear fluid. Follow up on fluid analysis CVS: Monitor HR and BP keep MAP>65mmhg 2-D echo -EF 5560 %, mild aortic mitral and tricuspid regurgitation, No RWMA. Carotid ultrasound-no stenosis GI: -Ts/p PEG tube placement by IR 11/27 , start TF(Jevity 1.5 with goal rate 45 ml/hr ) -s/p EGD 11/24 showed mild gastritis unable to place PEG tube endoscopically. -Monitor LFT's, US abdomen: Stone in neck of gall bladder, no hydronephrosis : -Monitor renal function, I/O's, electrolytes replacement as needed. - Renal function worse today with Cr: 3.40 from 2.85 -Given Bumex 1 mg x1 yesterday, on Albumin 25gms Q12. Renal is following- Dr. Zuniga -On Free water 250ml Q6 monitor sodium level. ID: -Continue abx per ID ( Rocephin, Zithromax) monitor for signs of infections ( Fever, WBC) -Urine culture 11/18/16 with Brionna albicans and E coli NOT S Levaquin, but S to zosyn -Infectious disease Dr. Wen, follow up on sputum cx 11/23: nl resp erica Heme: Monitor CBC, for transfusion 2units PRBC today Endo: --Medium dose sliding scale regimen- Proph: Subcutaneous heparin on hold secondary to thrombocytopenia, anemia.. SCDs for DVT prophylaxis Protonix for GI prophylaxis -Palliative care is following IV access: Peripheral IV's, Level 3 Nate Quintana MD Nov 29, 2016 10:23
--- NOTE | 2016-11-29 11:01 | HHI.HCPN ---
Reason for visit a. To assist with evaluation and management of symptoms including: pain; dyspnea; encephalopathy b. To assist medical decision maker(s) with: better understanding of current medical conditions; weighing benefits/burdens of medical treatment options; making medical treatment decisions. . Subjective/Interval History 86 y/o female with devastating posterior circulation stroke, TRACH PLACED , PEG placed and thoracentesis by IR on 11/27/16. Patient seen and examined in ICU. No family at bedside. She remains off sedation , unresponsive. Albumin 1.7. Afebrile. Otherwise vital signs stable. Hemoglobin 8.9, hematocrit 27.1, platelets 110. Creatinine rising again increased from 3.62. . Family/friend interactions Spoke with sonWyatt via telephone x 2 to provide medical update reviewed persistent anemia despite transfusion, worsening renal function despite aggressive diuresis and no evidence of neurologic improvement. I reviewed she is not a good candidate for dialysis per splicing machine operator automatic. I notified him that the medical team feels comfort measures with hospice support would be most appropriate. I explained patient will from this devastating stroke and that her condition will continue to worsen until she dies. I offered support. . Advance Directives Living Will: Never completed Health Care Surrogate: Never completed Durable Power of Staff Design Engineer: Never completed Advance Directive Specifics Date completed: Advance directives were never completed . Health Care Surrogate(s): There is no known written designation of health care surrogate . Documented care wishes: There is no written documentation of health care goals/preferences. . Significant change in goals: NO CODE. Son desires continued aggressive care. . Objective Vital Signs Date Time Temp Pulse Resp B/P Pulse Ox O2 Delivery O2 Flow Rate FiO2 11/29/16 07:48 100 30 11/29/16 06:00 71 11/29/16 04:00 35 11/29/16 04:00 98.0 73 12 134/59 100 11/29/16 04:00 73 11/29/16 03:18 100 35 11/29/16 02:00 72 11/29/16 00:00 35 11/29/16 00:00 72 11/29/16 00:00 97.7 73 13 117/56 100 11/28/16 22:00 74 11/28/16 20:00 73 11/28/16 20:00 35 11/28/16 20:00 74 11/28/16 20:00 98.2 73 13 124/60 100 11/28/16 19:41 100 35 11/28/16 18:00 76 11/28/16 16:00 75 11/28/16 16:00 40 11/28/16 16:00 98.1 75 12 148/64 99 11/28/16 15:24 99 35 11/28/16 14:00 71 11/28/16 13:06 100 35 11/28/16 12:00 40 11/28/16 12:00 98.2 67 14 102/52 99 11/28/16 12:00 67 11/28/16 10:32 92 35 Intake & Output 11/29/16 11/29/16 07:00 19:00 Intake Total 770 ml Output Total 750 ml Balance 20 ml IV Total 200 ml Tube Feeding 160 ml Albumin 100 ml Other 310 ml Output Urine Total 750 ml Physical Exam CONSTITUTIONAL/GENERAL: This is an adequately nourished patient, intubated, on CPAP; in an MICU bed. Responsiveness limited to decerebrate posturing with noxious stimuli. TUBES/LINES/DRAINS: trach, NG tube; PEG tube, Tejeda catheter; peripheral IVs; dressing LE, podus boots. CARDIOVASCULAR: Regular rate and rhythm. RESPIRATORY/CHEST: Symmetric, unlabored respirations. Breath sounds equal bilaterally. Coarse breath sounds bilaterally. No wheezes, rales. GASTROINTESTINAL: Abdomen soft, non-tender, nondistended. No hepato-splenomegaly , or palpable masses. No guarding. Bowel sounds hypoactive. GENITOURINARY: Without palpable bladder distension. Tejeda catheter in place. MUSCULOSKELETAL: Extremities with worsening edema. No mottling. NEUROLOGICAL: Does not awaken to loud voice or exam. Unable to follow commands. Decerebrate posturing to noxious stimuli. PSYCHIATRIC: Unable to evaluate due to level of responsiveness. . Diagnostic Tests Laboratory Laboratory Tests Test 11/27/16 11/28/16 11/28/16 11/28/16 04:57 04:20 06:12 09:37 White Blood Count 6.9 TH/MM3 3.5 TH/MM3 (4.0-11.0) (4.0-11.0) Red Blood Count 2.98 MIL/MM3 2.61 MIL/MM3 (4.00-5.30) (4.00-5.30) Hemoglobin 7.7 GM/DL 6.7 GM/DL 6.5 GM/DL (11.6-15.3) (11.6-15.3) (11.6-15.3) Hematocrit 23.8 % 20.7 % 20.7 % (35.0-46.0) (35.0-46.0) (35.0-46.0) Mean Corpuscular Volume 80.1 FL 79.4 FL (80.0-100.0) (80.0-100.0) Mean Corpuscular Hemoglobin 25.7 PG 25.8 PG (27.0-34.0) (27.0-34.0) Mean Corpuscular Hemoglobin 32.1 % 32.5 % Concent (32.0-36.0) (32.0-36.0) Red Cell Distribution Width 28.4 % 28.6 % (11.6-17.2) (11.6-17.2) Platelet Count 126 TH/MM3 106 TH/MM3 (150-450) (150-450) Mean Platelet Volume 9.1 FL 9.0 FL (7.0-11.0) (7.0-11.0) Neutrophils (%) (Auto) 71.8 % 77.6 % (16.0-70.0) (16.0-70.0) Lymphocytes (%) (Auto) 8.7 % 10.0 % (9.0-44.0) (9.0-44.0) Monocytes (%) (Auto) 10.1 % 3.3 % (0.0-8.0) (0.0-8.0) Eosinophils (%) (Auto) 9.0 % (0.0-4.0) 8.9 % (0.0-4.0) Basophils (%) (Auto) 0.4 % (0.0-2.0) 0.2 % (0.0-2.0) Neutrophils # (Auto) 5.0 TH/MM3 2.8 TH/MM3 (1.8-7.7) (1.8-7.7) Lymphocytes # (Auto) 0.6 TH/MM3 0.4 TH/MM3 (1.0-4.8) (1.0-4.8) Monocytes # (Auto) 0.7 TH/MM3 0.1 TH/MM3 (0-0.9) (0-0.9) Eosinophils # (Auto) 0.6 TH/MM3 0.3 TH/MM3 (0-0.4) (0-0.4) Basophils # (Auto) 0.0 TH/MM3 0.0 TH/MM3 (0-0.2) (0-0.2) CBC Comment AUTO DIFF AUTO DIFF Differential Comment AUTO DIFF FINAL DIFF CONFIRMED MANUAL Keratocytes OCC (NORMAL) OCC (NORMAL) Sodium Level 142 MEQ/L 144 MEQ/L (136-145) (136-145) Potassium Level 3.6 MEQ/L 3.7 MEQ/L (3.5-5.1) (3.5-5.1) Chloride Level 110 MEQ/L 109 MEQ/L (98-107) (98-107) Carbon Dioxide Level 20.7 MEQ/L 21.5 MEQ/L (21.0-32.0) (21.0-32.0) Anion Gap 11 MEQ/L (5-15) 14 MEQ/L (5-15) Blood Urea Nitrogen 53 MG/DL (7-18) 58 MG/DL (7-18) Creatinine 2.85 MG/DL 3.40 MG/DL (0.50-1.00) (0.50-1.00) Estimat Glomerular Filtration 16 ML/MIN (>89) 13 ML/MIN (>89) Rate Random Glucose 174 MG/DL 103 MG/DL (74-106) (74-106) Calcium Level 7.4 MG/DL 7.6 MG/DL (8.5-10.1) (8.5-10.1) Protein Corrected Calcium 9.0 MG/DL (8.5-10.1) Total Bilirubin 0.4 MG/DL 0.6 MG/DL (0.2-1.0) (0.2-1.0) Aspartate Amino Transf 68 U/L (15-37) 51 U/L (15-37) (AST/SGOT) Alanine Aminotransferase 18 U/L (10-53) 12 U/L (10-53) (ALT/SGPT) Alkaline Phosphatase 137 U/L 96 U/L (45-117) (45-117) Total Protein 4.4 GM/DL 4.7 GM/DL (6.4-8.2) (6.4-8.2) Albumin 1.0 GM/DL 1.7 GM/DL (3.4-5.0) (3.4-5.0) Differential Total Cells 100 Counted Neutrophils % (Manual) 70 % (16-70) Band Neutrophils % 16 % (0-6) Lymphocytes % 5 % (9-44) Monocytes % 1 % (0-8) Eosinophils % 7 % (0-4) Neutrophils # (Manual) 3.0 TH/MM3 (1.8-7.7) Myelocytes 1 % (0-0) Platelet Estimate LOW (NORMAL) Platelet Morphology Comment NORMAL (NORMAL) Acanthocytes OCC (NORMAL) Blood Type O POSITIVE Antibody Screen NEGATIVE Crossmatch Leukocyte-Reduced Red Blood Cells Blood Bank Comment Test 11/28/16 11/29/16 11/29/16 17:42 03:50 05:26 Hemoglobin 9.2 GM/DL 8.9 GM/DL (11.6-15.3) (11.6-15.3) Hematocrit 29.0 % 27.1 % (35.0-46.0) (35.0-46.0) Sodium Level 142 MEQ/L (136-145) Potassium Level 3.9 MEQ/L (3.5-5.1) Chloride Level 107 MEQ/L (98-107) Carbon Dioxide Level 20.7 MEQ/L (21.0-32.0) Anion Gap 14 MEQ/L (5-15) Blood Urea Nitrogen 67 MG/DL (7-18) Creatinine 3.62 MG/DL (0.50-1.00) Estimat Glomerular Filtration 12 ML/MIN (>89) Rate Random Glucose 130 MG/DL (74-106) Calcium Level 8.0 MG/DL (8.5-10.1) White Blood Count 5.5 TH/MM3 (4.0-11.0) Red Blood Count 3.35 MIL/MM3 (4.00-5.30) Mean Corpuscular Volume 81.1 FL (80.0-100.0) Mean Corpuscular Hemoglobin 26.6 PG (27.0-34.0) Mean Corpuscular Hemoglobin 32.8 % Concent (32.0-36.0) Red Cell Distribution Width 23.5 % (11.6-17.2) Platelet Count 110 TH/MM3 (150-450) Mean Platelet Volume 8.5 FL (7.0-11.0) Neutrophils (%) (Auto) 70.0 % (16.0-70.0) Lymphocytes (%) (Auto) 7.6 % (9.0-44.0) Monocytes (%) (Auto) 7.5 % (0.0-8.0) Eosinophils (%) (Auto) 14.7 % (0.0-4.0) Basophils (%) (Auto) 0.2 % (0.0-2.0) Neutrophils # (Auto) 3.9 TH/MM3 (1.8-7.7) Lymphocytes # (Auto) 0.4 TH/MM3 (1.0-4.8) Monocytes # (Auto) 0.4 TH/MM3 (0-0.9) Eosinophils # (Auto) 0.8 TH/MM3 (0-0.4) Basophils # (Auto) 0.0 TH/MM3 (0-0.2) CBC Comment AUTO DIFF Differential Comment AUTO DIFF CONFIRMED Polychromasia 2.3 % (0.0-1.9) Keratocytes OCC (NORMAL) Result Diagram: 11/29/16 0526 11/29/16 0350 Imaging Last Impressions Chest X-Ray 11/27/16 1522 Signed Impressions: Service Date/Time: Sunday, November 27, 2016 15:24 - CONCLUSION: 1. Marked improvement in right lung aeration post thoracentesis. No pneumothorax. 2. Improving bilateral airspace disease. Persistent, small left basilar consolidation/effusion Kirit Alcantar MD Thoracentesis 11/27/16 0000 Signed Impressions: Service Date/Time: Sunday, November 27, 2016 14:18 - CONCLUSION: Uncomplicated ultrasound guided thoracentesis. Kirit Alcantar MD Abdomen Ultrasound 11/27/16 0000 Signed Impressions: Service Date/Time: Sunday, November 27, 2016 08:35 - CONCLUSION: Stone in the neck of the gallbladder. Trace ascites and mild splenomegaly Jeffery Alvarado MD Gastrostomy Tube Placement 11/24/16 0000 Signed Impressions: Service Date/Time: Sunday, November 27, 2016 14:34 - CONCLUSION: Uncomplicated gastrostomy tube placement as above. Kirit Alcantar MD Chest CT 11/21/16 0000 Signed Impressions: Service Date/Time: Monday, November 21, 2016 22:57 - CONCLUSION: 1. Moderate size right pleural effusion and small left pleural effusion. Right effusion has increased over the last day compared with a recent chest radiograph. 2. Bilateral lung consolidation as above. Differential diagnosis includes pneumonia and aspiration. Emeterio Freire MD Head CT 11/08/16 1657 Signed Impressions: Service Date/Time: Tuesday, November 08, 2016 17:06 - CONCLUSION: Low density seen throughout the posterior circulation regions including the susan and midbrain, cerebellar hemispheres, occipital and posterior medial temporal lobes and right thalamus. This likely represents areas of infarction involving the posterior territory circulation. Jeffery Zhong MD Carotid Artery Ultrasound 11/08/16 0000 Signed Impressions: Service Date/Time: Tuesday, November 08, 2016 22:24 - CONCLUSION: Mild calcified plaque at the carotid bulbs. No evidence of hemodynamically significant carotid stenosis. José Luis Beltran MD . Procedures * Intubation/mechanical ventilation * Trach 11/23/16 . Assessment and Plan Disease Oriented Problem List: (1) CVA (cerebral vascular accident) Comment: Very large posterior circulation stroke. No signs of neurological recovery. Prognosis grim. . . (2) Rhabdomyolysis (3) Dementia Comment: Family reports at least a 7 year history of dementia. . (4) Thrombocytopenia (5) Malnutrition Comment: Presenting albumin level was 2.8 . (6) Anemia (7) Urinary tract infection Comment: Cx of 11/08 --> E coli and Enterococcus . (8) Pneumonia Comment: Sputum cx of 11/12 growing Staph aureus. . Symptom Scale: (1) Pain 0-10 Scale: Unable to quantify Comment: Patient had no known prior pain syndromes. Current possible sources of pain include prolonged bedbound status; orotracheal intubation; vascular access catheters; Tejeda catheter. . (2) Dyspnea 0-10 Scale: Unable to quantify Comment: Dyspnea currently controlled with mechanical ventilation. . (3) Encephalopathy 0-10 Scale: Unable to quantify Comment: Patient was minimally responsive on arrival. No evidence of neurologic recovery. Off all sedation. Pertinent Non-Medical Issues Psychosocial: Normally lives with her sister. Her son lives by visits frequently. Spiritual: Patient is a Mu-ism. Blood products should not be given without the son's permission ---> her son DID consent to blood transfusion . Legal: No advance directives. Son would be the appropriate proxy health care decision-maker under the [place] statutes hierarchy. Ethical issues impacting care: Patient is incapacitated to make her own health care decisions and is not expected to regain such capacity . Important Contacts Wyatt Crawford (son and healthcare proxy) [phone] . Prognosis This is an 86-year-old female who was suffered a fairly massive posterior circulation stroke. This is on top of at least a seven-year history of dementia with the patient was already requiring assistance with most of her ADLs. There is a high risk of during this hospitalization. Should she survive, she will require tracheostomy to protect her airway as well as ongoing artificial nutrition. She will not have meaningful interaction with her environment. The patient would certainly be eligible for hospice services at such time that family believes the patient's goals would best be honored by transitioning to "comfort measures only." . Code Status: No Code Plan * NO CODE- per patient's son on 11/23/16 * DECISION-MAKING: The patient lacks capacity for decision-making, and she will not regain capacity. Her son, Wyatt Crawford, is the legal health care proxy. * GOALS: The patient is a Mu-ism. No blood products should be given without the son's permission; he continues to consent for blood when needed, s/p trach and PEG. Son wants pt to be DNR, so she will naturally "when God calls her home." 11/29/16: Spoke with son, Wyatt to provide medical update (worsening anemia and renal function - poor candidate for dialysis per Dr. Zuniga). He desires continue aggressive care. He says "it's not good is it?" I explained no, she is dying. I advised the medical team feels comfort measures with hospice support would be appropriate, he is not ready to consider comfort/ hospice. * SYMPTOMS: It is difficult to know when she has pain or dyspnea, and we will continue to observe closely for signs of suffering. Certainly her bedbound status and recent procedures could be painful. No new med recommendations at this time. * Palliative care will continue to follow to assist with symptom management and to help clarify goals of medical treatment as the clinical course evolves. . Attestation To help prompt me to consider important information that might be impacting today's encounter and assessment, information from prior notes written by myself or my colleagues may have been "brought forward" into today's note. My signature on this note, however, is an attestation that I personally performed the exam, history, and/or decision-making noted today, and, unless otherwise indicated, the interactions with patient, family, and staff as well as the review of records all occurred today. I also attest that the listed assessment and stated plan reflect my best clinical judgment today based on the combination of historical information, prior notes, and today's exam/ interactions. When time spent is documented, it refers only to time spent today by the signer, or if indicated, combined time spent today by collaborating physician/nurse practitioner. ZAIN TITUS Nov 29, 2016 11:01
[2016-11-29] MEDS: FLUCONAZOLE 200 MG PREMIX BAG 100 ML IV SCH (16:00)
[2016-11-29] MEDS: RESP: ALBUTEROL 2.5 MG/IPRATROPIUM 0.5 MG NEB (PRN) INH (21:05)
[2016-11-30] VITALS (17 sets, daily range): BP systolic 97–166; BP diastolic 51–80; PULSE 66–94; RESP 12–15; TEMP 94.9–98.4; O2SAT 98–100
[2016-11-30] MEDS: cefTRIAXone INJ 2,000 MG in SODIUM CHLORIDE 0.9% INJ 100 ML IV SCH ×2 (02:02→23:44)
[2016-11-30] MEDS: ALBUMIN HUMAN 25% 25 GM/100 ML BAGP IV SCH ×2 (02:02→14:24)
[2016-11-30] MEDS: HIGH DOSE INSULIN NOVOLIN REGULAR SUPPLEMENTAL SCALE SQ SCH ×7 (04:00→23:44)
[2016-11-30] MEDS: CHLORHEXIDINE GLUCONATE 2 % 1 PACK (2 CLOTHS) TOP SCH (04:00)
[2016-11-30] MEDS: FREE WATER G-TUBE SCH ×5 (06:00→23:44)
[2016-11-30] MEDS: ARTIFICIAL TEARS OPTH SOLN 15 ML BTL EACH EYE SCH ×3 (09:00→18:00)
[2016-11-30] MEDS: DOCUSATE SODIUM 100 MG/10 ML UDC G-TUBE SCH ×2 (09:00→20:37)
[2016-11-30] MEDS: FERROUS SULFATE 300 MG /5ML UDC PO SCH ×2 (09:51→20:36)
[2016-11-30] MEDS: PANTOPRAZOLE SODIUM 40 MG VIAL IV SCH (09:51)
[2016-11-30] MEDS: CHLORHEXIDINE 0.12% (ORAL KIT) 15 ML CUP MT SCH ×2 (09:54→20:37)
[2016-11-30] MEDS: SODIUM CHLORIDE 0.9% FLUSH 5 ML FLUSH IV FLUSH SCH ×2 (09:55→20:37)
[2016-11-30] MEDS: BUMETANIDE INJ 1 MG/4 ML VIAL IV PUSH SCH ×2 (10:05→16:45)
--- NOTE | 2016-11-30 13:07 | HHI.CCPN ---
Subjective Remarks/Hospital Course This is an 86yF with per report no other past medical history who presented to the ER after she was found unresponsive in her bed. According to ER reports, her family saw her normal last night when she had a fall, with unknown LOC. At that point, he helped her back to bed. However, this morning she did not wake up. On arrival to the ER, she was unresponsive only withdrawing to pain. she was intubated for airway protection and a poor GCS. CT head demonstrated massive posterior-circulation ischemic stroke. The patient is currently intubated and unresponsive and cannot provide any additional history. 11/09: No acute changes overnight. Palliative care team has consult with the family regarding goals of care. Currently the patient's sedation fentanyl infusion has been turned off without any response from patient. The patient notably does withdrawal to pain. 11/10: No change in neurological status. [id number]. The patient withdraws to pain 4 extremities. The patient currently on no sedation, fentanyl infusion discontinued yesterday. Tube feeds were initiated. The patient's urine culture grew back Escherichia coli, the patient was started on antibiotics. Extensive discussion with son regarding patient's neurological status, son Wyatt has had extensive discussion with palliative care.The son feels that yesterday when the patient was spoken to in Persian the patient squeezed his hand and desires aggressive treatment. The patient's neuro status is unchanged, totally unresponsive with occasional reflexive twitching of feet B/L. Follow-up with neurology Dr. Pack, guarding any further imaging studies. 11/13: No change in neuro exam. Palliative care following. Family wanting full aggressive care. Palliative care will address early trach PEG 11/14: No improvement in neuro status. Son has not made decisions regarding trach and PEG. Apparently he wants to wait longer to see any improvement 11/15: Remains unresponsive. Neuro exam with extensor posturing-unchanged. Son requesting aggressive care. Continues to have low-grade fever 11/16: Clinically no improvement. Tolerates CPAP. Unable to extubate as patient will not protect airway 11/17: Tolerating C Pap but no change in neuro exam. Hemoglobin noted to be 6.8 hemodynamically stable 11/18: Became tachycardic and hypotensive early a.m., placed on assist control. Otherwise neuro exam remains unchanged 11/19: Continues to spike fever Tmax 102, started on vancomycin and cefepime in addition to Levaquin yesterday. Currently only low-grade fever. Received 2 units of blood for hemoglobin of 5.3. CBC pending at this time. No improvement in neuro exam 11/20: White count is 18.3 today, MAXIMUM TEMPERATURE 103.1. Chest x-ray showing right sided infiltrate. Urine culture with gram-negative rods and Brionna albicans. ID consulted Diflucan added 11/21/16: Tmax 101.5. Bilateral lung infiltrates, R>L but slightly improved. No improvement in neuro exam. ID consulted and following. 11/22/16: No fever. CT chest- moderate to large R pleural effusion, bilateral lung infiltrates. ABX per ID. CXR today shows increasing bilateral infiltrates and effusion right more than left. Almost near complete infiltrates on the right lung [place]. Vaginally worsening creatinine today 1.45 indicating multiorgan failure 11/23/16: Hb 9.8 today after 2U PRBC yesterday. Plan for tracheostomy today. INR normal platelet count 116. Worsening creatinine today is 1.6. UO 550 ml in 24 hours. 1L NS bolus and 75 ml per hour maintenance NS. Started on Dopamine 3 mcg per min to maintain MAP>65 11/24 Patient is on ventilator via trach. Afebrile. On Dopamine 4 mics. 11/25 No acute events overnight. s/p EGD yesterday showed mild gastritis unable to place PEG tube endoscopically. Remains on Dopamine 4 mics. On no sedation unresponsive. 11/26 No acute events overnight. On CPAP with PS 20, PEEP: 5 and FIO2 40%. Afebrile. Off Dopamine. Afebrile. 11/27 Patient remains on ventilator via trach on no drips. Afebrile. For PEG tube placement by IR today. 11/28 Patient s/p PEG tube placement by IR yesterday, s/p Right thoracentesis with removal 700ml CXR showed better aeration of lungs, Hgb 6.7 this morning 2units PRBC ordered. Renal function worse with Cr: 3.40 from 2.85 . 11/29: Remains encephalopathic on mechanical ventilation via tracheostomy. 11/30: Remains encephalopathic on mechanical ventilation via tracheostomy. Objective Vital Signs Date Time Temp Pulse Resp B/P Pulse Ox O2 Delivery O2 Flow Rate FiO2 11/30/16 08:06 100 30 11/30/16 06:00 70 11/30/16 04:00 98.4 14 166/70 Intake and Output 11/29/16 11/29/16 11/30/16 08:00 16:00 00:00 Intake Total 450 ml 450 ml 576 ml Output Total 350 ml 450 ml 350 ml Balance 100 ml 0 ml 226 ml Result Diagram: 11/29/16 0526 11/29/16 0350 Imaging Last Impressions Chest X-Ray 11/27/16 1522 Signed Impressions: Service Date/Time: Sunday, November 27, 2016 15:24 - CONCLUSION: 1. Marked improvement in right lung aeration post thoracentesis. No pneumothorax. 2. Improving bilateral airspace disease. Persistent, small left basilar consolidation/effusion Kirit Alcantar MD Thoracentesis 11/27/16 0000 Signed Impressions: Service Date/Time: Sunday, November 27, 2016 14:18 - CONCLUSION: Uncomplicated ultrasound guided thoracentesis. Kirit Alcantar MD Abdomen Ultrasound 11/27/16 0000 Signed Impressions: Service Date/Time: Sunday, November 27, 2016 08:35 - CONCLUSION: Stone in the neck of the gallbladder. Trace ascites and mild splenomegaly Jeffery Alvarado MD Gastrostomy Tube Placement 11/24/16 0000 Signed Impressions: Service Date/Time: Sunday, November 27, 2016 14:34 - CONCLUSION: Uncomplicated gastrostomy tube placement as above. Kirit Alcantar MD Chest CT 11/21/16 0000 Signed Impressions: Service Date/Time: Monday, November 21, 2016 22:57 - CONCLUSION: 1. Moderate size right pleural effusion and small left pleural effusion. Right effusion has increased over the last day compared with a recent chest radiograph. 2. Bilateral lung consolidation as above. Differential diagnosis includes pneumonia and aspiration. Emeterio Freire MD Head CT 11/08/16 1657 Signed Impressions: Service Date/Time: Tuesday, November 08, 2016 17:06 - CONCLUSION: Low density seen throughout the posterior circulation regions including the susan and midbrain, cerebellar hemispheres, occipital and posterior medial temporal lobes and right thalamus. This likely represents areas of infarction involving the posterior territory circulation. Jeffery Zhong MD Carotid Artery Ultrasound 11/08/16 0000 Signed Impressions: Service Date/Time: Tuesday, November 08, 2016 22:24 - CONCLUSION: Mild calcified plaque at the carotid bulbs. No evidence of hemodynamically significant carotid stenosis. José Luis Beltran MD Objective Remarks GENERAL: Patient is 86 yo on ventilator via trach. SKIN: Warm and dry. HEAD: Normocephalic. EYES: No scleral icterus. No injection or drainage. NECK: Supple, trachea midline. No JVD or lymphadenopathy. CARDIOVASCULAR: Regular rate and rhythm without murmurs, gallops, or rubs. RESPIRATORY: Breath sounds equal bilaterally. Few coarse BS GASTROINTESTINAL: Abdomen soft, non-tender, nondistended. PEG in place MUSCULOSKELETAL: No cyanosis, or edema. Neuro: Positive corneal reflex. LIDYA. Negative cough. Negative gag. Extensor posturing in uppers. Downgoing Babinski. 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 She was last seen normal, nearly 24 hours, she was not a candidate for any interventional therapy. Unfortunately, given her age, and the extent of the stroke, her prognosis for any reasonable neurologic function is quite poor, and I do not think that we will be able to improve her outcome at all. Her family expressed wishes for a short course of aggressive medical management. Active problems: Massive posterior circulation ischemic CVA Hypoxic and hypercarbic respiratory failure Severe encephalopathy secondary to stroke Severe sepsis Healthcare associated pneumonia with pleural effusion Acute kidney injury UTI Anemia-acute and chronic Hyperglycemia of critical illness Thrombocytopenia Plan Neuro: On no sedation Monitor neuro status and avoid sedatives. Neuro is following -11/08 CT brain: Low density seen throughout the posterior circulation regions including the susan and midbrain, cerebellar hemispheres, occipital and posterior medial temporal lobes and right thalamus. This likely represents areas of infarction involving the posterior territory circulation Resp: -Continue with vent support keep sat >92% Vent bundle, Head of bed 30, bronchodilators -s/p trach 11/23, pulm toilet, trach care -SBT daily as lia -s/p CT guided right thoracentesis with removal 700ml clear fluid. Follow up on fluid analysis CVS: Monitor HR and BP keep MAP>65mmhg 2-D echo -EF 5560 %, mild aortic mitral and tricuspid regurgitation, No RWMA. Carotid ultrasound-no stenosis GI: -Ts/p PEG tube placement by IR 11/27 , start TF(Jevity 1.5 with goal rate 45 ml/hr ) -s/p EGD 11/24 showed mild gastritis unable to place PEG tube endoscopically. -Monitor LFT's, US abdomen: Stone in neck of gall bladder, no hydronephrosis : -Monitor renal function, I/O's, electrolytes replacement as needed. - Renal function worse today with Cr: 3.40 from 2.85 -Given Bumex 1 mg x1 yesterday, on Albumin 25gms Q12. Renal is following- Dr. Zuniga -On Free water 250ml Q6 monitor sodium level. ID: -Continue abx per ID ( Rocephin, Zithromax) monitor for signs of infections ( Fever, WBC) -Urine culture 11/18/16 with Brionna albicans and E coli NOT S Levaquin, but S to zosyn -Infectious disease Dr. Wen, follow up on sputum cx 11/23: nl resp erica Heme: Monitor CBC, for transfusion 2units PRBC today Endo: --Medium dose sliding scale regimen- Proph: Subcutaneous heparin on hold secondary to thrombocytopenia, anemia.. SCDs for DVT prophylaxis Protonix for GI prophylaxis -Palliative care is following IV access: Peripheral IV's, Level 3 Nate Quintana MD Nov 30, 2016 13:07
[2016-11-30] MEDS: FLUCONAZOLE 200 MG PREMIX BAG 100 ML IV SCH (14:24)
--- NOTE | 2016-11-30 15:02 | HHI.NPPN ---
Subjective History of Present Illness 86 year old with CVA, Resp failure s/p Trach/ PEG Review of Systems General Constitutional: Fatigue Objective Data Data 11/29/16 11/30/16 19:00 07:00 Intake Total 450 ml 1423 ml Output Total 450 ml 850 ml Balance 0 ml 573 ml IV Total 100 ml 295 ml Tube Feeding 428 ml Albumin 100 ml 200 ml Other 250 ml 500 ml Output Urine Total 450 ml 850 ml # Bowel Movements 0 4 Vital Signs Date Time Temp Pulse Resp B/P Pulse Ox O2 Delivery O2 Flow Rate FiO2 11/30/16 14:51 98 30 11/30/16 08:06 100 30 11/30/16 08:05 30 11/30/16 06:00 70 11/30/16 04:00 84 11/30/16 04:00 98.4 84 14 166/70 99 11/30/16 04:00 30 11/30/16 03:51 99 30 11/30/16 02:00 83 11/30/16 01:24 100 30 11/30/16 00:00 98.3 94 12 144/80 99 11/30/16 00:00 35 11/30/16 00:00 94 11/29/16 22:40 99 30 11/29/16 22:00 85 11/29/16 20:12 100 30 11/29/16 20:00 80 11/29/16 20:00 35 11/29/16 20:00 97.8 80 12 150/67 11/29/16 18:00 78 11/29/16 16:00 35 11/29/16 16:00 98.3 77 16 137/64 100 11/29/16 16:00 77 11/29/16 15:10 98 30 -: 11/29/16 0526 11/29/16 0350 Physical Exam General Appearance: Pale Neck Neck Remarks s/p trach Pulmonary Resp Exam: Decreased Bases Cardiology CV Exam: Regular Gastrointestinal/Abdomen GI Exam: Soft, Non-Tender Extremeties Extremities Exam: Moderate Edema Assessment/Plan Problem List: (1) Acute renal failure Plan: Patient has multiple issues and has malnutrition with poor albumin contributing to low oncotic pressure, ATN Cr better UOP increased on Bumex follow BMP (2) Metabolic acidosis Plan: will follow (3) Pneumonia Plan: On Ceftriaxone/Fluconazole (4) Urinary tract infection Plan: Escherichia coli she is on Ceftriaxone (5) CVA (cerebral vascular accident) Plan: Massive stroke neurology following (6) Rhabdomyolysis Plan: This resolved Problem Qualifiers (1) Acute renal failure: Qualified Code: N17.9 - Acute renal failure, unspecified acute renal failure type (2) CVA (cerebral vascular accident): Qualified Code: I63.9 - Cerebrovascular accident (CVA), unspecified mechanism (3) Rhabdomyolysis: Qualified Code: M62.82 - Non-traumatic rhabdomyolysis Kristel Zuniga MD Nov 30, 2016 15:02
--- NOTE | 2016-11-30 18:22 | HHI.IDPN ---
Subjective Subjective Remarks remains on vent very large amount of secretions bloody, mucoid from trach and oral BMs x 4 Antibiotics fluc zosyn Allergies: Coded Allergies: No Known Allergies (Unverified , 11/08/16) Objective . Vital Signs Date Time Temp Pulse Resp B/P Pulse Ox O2 Delivery O2 Flow Rate FiO2 11/30/16 14:51 98 30 11/30/16 14:00 66 11/30/16 12:00 66 11/30/16 10:00 68 11/30/16 08:06 100 30 11/30/16 08:05 30 11/30/16 08:00 68 11/30/16 06:00 70 11/30/16 04:00 84 11/30/16 04:00 98.4 84 14 166/70 99 11/30/16 04:00 30 11/30/16 03:51 99 30 11/30/16 02:00 83 11/30/16 01:24 100 30 11/30/16 00:00 98.3 94 12 144/80 99 11/30/16 00:00 35 11/30/16 00:00 94 11/29/16 22:40 99 30 11/29/16 22:00 85 11/29/16 20:12 100 30 11/29/16 20:00 80 11/29/16 20:00 35 11/29/16 20:00 97.8 80 12 150/67 11/29/16 11/29/16 11/30/16 15:00 23:00 07:00 Intake Total 450 ml 576 ml 847 ml Output Total 450 ml 350 ml 500 ml Balance 0 ml 226 ml 347 ml IV Total 100 ml 95 ml 200 ml Tube Feeding 131 ml 297 ml Albumin 100 ml 100 ml 100 ml Other 250 ml 250 ml 250 ml Output Urine Total 450 ml 350 ml 500 ml # Bowel Movements 0 1 3 . Laboratory Tests Test 11/29/16 05:26 White Blood Count 5.5 TH/MM3 Red Blood Count 3.35 MIL/MM3 Hemoglobin 8.9 GM/DL Hematocrit 27.1 % Mean Corpuscular Volume 81.1 FL Mean Corpuscular Hemoglobin 26.6 PG Mean Corpuscular Hemoglobin 32.8 % Concent Red Cell Distribution Width 23.5 % Platelet Count 110 TH/MM3 Mean Platelet Volume 8.5 FL Neutrophils (%) (Auto) 70.0 % Lymphocytes (%) (Auto) 7.6 % Monocytes (%) (Auto) 7.5 % Eosinophils (%) (Auto) 14.7 % Basophils (%) (Auto) 0.2 % Neutrophils # (Auto) 3.9 TH/MM3 Lymphocytes # (Auto) 0.4 TH/MM3 Monocytes # (Auto) 0.4 TH/MM3 Eosinophils # (Auto) 0.8 TH/MM3 Basophils # (Auto) 0.0 TH/MM3 CBC Comment AUTO DIFF Differential Comment AUTO DIFF CONFIRMED Polychromasia 2.3 % Keratocytes OCC Laboratory Tests Test 11/29/16 03:50 Sodium Level 142 MEQ/L Potassium Level 3.9 MEQ/L Chloride Level 107 MEQ/L Carbon Dioxide Level 20.7 MEQ/L Anion Gap 14 MEQ/L Blood Urea Nitrogen 67 MG/DL Creatinine 3.62 MG/DL Estimat Glomerular Filtration 12 ML/MIN Rate Random Glucose 130 MG/DL Calcium Level 8.0 MG/DL Imaging Last Impressions Chest X-Ray 11/27/16 1522 Signed Impressions: Service Date/Time: Sunday, November 27, 2016 15:24 - CONCLUSION: 1. Marked improvement in right lung aeration post thoracentesis. No pneumothorax. 2. Improving bilateral airspace disease. Persistent, small left basilar consolidation/effusion Kirit Alcantar MD Thoracentesis 11/27/16 0000 Signed Impressions: Service Date/Time: Sunday, November 27, 2016 14:18 - CONCLUSION: Uncomplicated ultrasound guided thoracentesis. Kirit Alcantar MD Abdomen Ultrasound 11/27/16 0000 Signed Impressions: Service Date/Time: Sunday, November 27, 2016 08:35 - CONCLUSION: Stone in the neck of the gallbladder. Trace ascites and mild splenomegaly Jeffery Alvarado MD Gastrostomy Tube Placement 11/24/16 0000 Signed Impressions: Service Date/Time: Sunday, November 27, 2016 14:34 - CONCLUSION: Uncomplicated gastrostomy tube placement as above. Kirit Alcantar MD Chest CT 11/21/16 0000 Signed Impressions: Service Date/Time: Monday, November 21, 2016 22:57 - CONCLUSION: 1. Moderate size right pleural effusion and small left pleural effusion. Right effusion has increased over the last day compared with a recent chest radiograph. 2. Bilateral lung consolidation as above. Differential diagnosis includes pneumonia and aspiration. Emeterio Freire MD Head CT 11/08/16 1657 Signed Impressions: Service Date/Time: Tuesday, November 08, 2016 17:06 - CONCLUSION: Low density seen throughout the posterior circulation regions including the susan and midbrain, cerebellar hemispheres, occipital and posterior medial temporal lobes and right thalamus. This likely represents areas of infarction involving the posterior territory circulation. Jeffery Zhong MD Carotid Artery Ultrasound 11/08/16 0000 Signed Impressions: Service Date/Time: Tuesday, November 08, 2016 22:24 - CONCLUSION: Mild calcified plaque at the carotid bulbs. No evidence of hemodynamically significant carotid stenosis. José Luis Beltran MD Physical Exam CONSTITUTIONAL/GENERAL: This is a thin elderly frail patient, in no apparent distress. Intubated, on vent TUBES/LINES/DRAINS: SKIN: No jaundice, rashes, or lesions. Skin temperature appropriate. Not diaphoretic. EYES: No scleral icterus. No injection or drainage. Fundi not examined. ENT: moist mucosae NECK: trach in place with large amount of mucoid bloody drainage CARDIOVASCULAR: Regular rate and rhythm without murmurs, gallops, or rubs. No JVD. Peripheral pulses symmetric. RESPIRATORY/CHEST: Symmetric, unlabored respirations. Scattered rhonchi to auscultation. Breath sounds equal bilaterally. GASTROINTESTINAL: Abdomen soft, no reaction to palpation, moderately distended. No hepato-splenomegaly, or palpable masses. GENITOURINARY: Without palpable bladder distension. Tejeda catheter in place with clear yellow urine MUSCULOSKELETAL: Extremities without clubbing, cyanosis, +2 -3 soft pitting edema more prominent on BUE. No joint tenderness or effusion noted. 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 PNA ? aspiration Severe sepsis - clinically better , though still low BP Right sided infiltrate/ HCAP/ ? aspiration PNA Bacteriuria vs recurrent UTI Worsening renal fnx Funguria, C.albicans Diarrhea, C.diff negative - rechk sputum clx - CFTX -cont fluconazole for now dw Shani Cota MD Nov 30, 2016 18:21
[2016-11-30] MEDS: HYOSCYAMINE SOLN 0.125 MG/ML 15 ML BTL PO PRN (20:38)
[2016-11-30] MEDS ORDERED: SODIUM CHLOR 0.9% 1000 ML INJ 2,000 ML IV ONE (22:30)
[2016-11-30 23:07] LABS: REVIEW FLAG FINAL
[2016-11-30 23:14] LABS: HEMATOCRIT 17.8 % (35.0-46.0)
[2016-12-01] VITALS (20 sets, daily range): BP systolic 100–165; BP diastolic 49–81; PULSE 60–84; RESP 15; TEMP 96.4–98.6; O2SAT 93–100
[2016-12-01] MEDS: CHLORHEXIDINE GLUCONATE 2 % 1 PACK (2 CLOTHS) TOP SCH ×2 (03:50→22:14)
[2016-12-01] MEDS: HIGH DOSE INSULIN NOVOLIN REGULAR SUPPLEMENTAL SCALE SQ SCH ×6 (03:50→22:13)
[2016-12-01] MEDS: ALBUMIN HUMAN 25% 25 GM/100 ML BAGP IV SCH ×2 (03:50→17:08)
[2016-12-01] MEDS: EPOETIN ALFA 10,000 UNITS/ML VIAL SQ SCH (05:40)
[2016-12-01] MEDS: FREE WATER G-TUBE SCH ×5 (05:41→22:14)
[2016-12-01 06:01] LABS: AUTOMATED NEUTROPHIL # 3.9 TH/MM3 (1.8-7.7); BASOPHIL % 0.3 % (0.0-2.0); EOSINOPHIL # 0.6 TH/MM3 (0-0.4); EOSINOPHIL % 11.3 % (0.0-4.0); LYMPH % 7.2 % (9.0-44.0); LYMPHOCYTE # 0.4 TH/MM3 (1.0-4.8); MEAN CELL VOLUME 83.4 FL (80.0-100.0); MEAN CORPUSCULAR HEMOGLOBIN 27.6 PG (27.0-34.0); MEAN CORPUSCULAR HGB CONC 33.1 % (32.0-36.0); MONO % 7.9 % (0.0-8.0); NEUT % 73.3 % (16.0-70.0); PLATELET COUNT 76 TH/MM3 (150-450); RED BLOOD COUNT 2.36 MIL/MM3 (4.00-5.30); RED CELL DISTRIBUTION WIDTH 21.8 % (11.6-17.2); WHITE BLOOD COUNT 5.3 TH/MM3 (4.0-11.0)
[2016-12-01 06:08] LABS: HEMO FLAGS AUTO DIFF
[2016-12-01 06:14] LABS: HEMATOCRIT 19.7 % (35.0-46.0)
[2016-12-01 06:24] LABS: BICARBONATE 23.5 MEQ/L (21.0-32.0); POTASSIUM 3.5 MEQ/L (3.5-5.1)
[2016-12-01 07:22] LABS: KERATOCYTES OCC (NORMAL); PLATELET ESTIMATE SMEAR LOW (NORMAL); PLATELET MORPHOLOGY NORMAL (NORMAL); SCAN/DIFF AUTO DIFF CONFIRMED
[2016-12-01] MEDS: DOCUSATE SODIUM 100 MG/10 ML UDC G-TUBE SCH (07:22)
[2016-12-01] MEDS: CHLORHEXIDINE 0.12% (ORAL KIT) 15 ML CUP MT SCH ×2 (08:00→20:00)
--- NOTE | 2016-12-01 08:24 | HHI.CCPN ---
Subjective Remarks/Hospital Course This is an 86yF with per report no other past medical history who presented to the ER after she was found unresponsive in her bed. According to ER reports, her family saw her normal last night when she had a fall, with unknown LOC. At that point, he helped her back to bed. However, this morning she did not wake up. On arrival to the ER, she was unresponsive only withdrawing to pain. she was intubated for airway protection and a poor GCS. CT head demonstrated massive posterior-circulation ischemic stroke. The patient is currently intubated and unresponsive and cannot provide any additional history. 11/09: No acute changes overnight. Palliative care team has consult with the family regarding goals of care. Currently the patient's sedation fentanyl infusion has been turned off without any response from patient. The patient notably does withdrawal to pain. 11/10: No change in neurological status. [id number]. The patient withdraws to pain 4 extremities. The patient currently on no sedation, fentanyl infusion discontinued yesterday. Tube feeds were initiated. The patient's urine culture grew back Escherichia coli, the patient was started on antibiotics. Extensive discussion with son regarding patient's neurological status, son Wyatt has had extensive discussion with palliative care.The son feels that yesterday when the patient was spoken to in Persian the patient squeezed his hand and desires aggressive treatment. The patient's neuro status is unchanged, totally unresponsive with occasional reflexive twitching of feet B/L. Follow-up with neurology Dr. Pack, guarding any further imaging studies. 11/13: No change in neuro exam. Palliative care following. Family wanting full aggressive care. Palliative care will address early trach PEG 11/14: No improvement in neuro status. Son has not made decisions regarding trach and PEG. Apparently he wants to wait longer to see any improvement 11/15: Remains unresponsive. Neuro exam with extensor posturing-unchanged. Son requesting aggressive care. Continues to have low-grade fever 11/16: Clinically no improvement. Tolerates CPAP. Unable to extubate as patient will not protect airway 11/17: Tolerating C Pap but no change in neuro exam. Hemoglobin noted to be 6.8 hemodynamically stable 11/18: Became tachycardic and hypotensive early a.m., placed on assist control. Otherwise neuro exam remains unchanged 11/19: Continues to spike fever Tmax 102, started on vancomycin and cefepime in addition to Levaquin yesterday. Currently only low-grade fever. Received 2 units of blood for hemoglobin of 5.3. CBC pending at this time. No improvement in neuro exam 11/20: White count is 18.3 today, MAXIMUM TEMPERATURE 103.1. Chest x-ray showing right sided infiltrate. Urine culture with gram-negative rods and Brionna albicans. ID consulted Diflucan added 11/21/16: Tmax 101.5. Bilateral lung infiltrates, R>L but slightly improved. No improvement in neuro exam. ID consulted and following. 11/22/16: No fever. CT chest- moderate to large R pleural effusion, bilateral lung infiltrates. ABX per ID. CXR today shows increasing bilateral infiltrates and effusion right more than left. Almost near complete infiltrates on the right lung [place]. Vaginally worsening creatinine today 1.45 indicating multiorgan failure 11/23/16: Hb 9.8 today after 2U PRBC yesterday. Plan for tracheostomy today. INR normal platelet count 116. Worsening creatinine today is 1.6. UO 550 ml in 24 hours. 1L NS bolus and 75 ml per hour maintenance NS. Started on Dopamine 3 mcg per min to maintain MAP>65 11/24 Patient is on ventilator via trach. Afebrile. On Dopamine 4 mics. 11/25 No acute events overnight. s/p EGD yesterday showed mild gastritis unable to place PEG tube endoscopically. Remains on Dopamine 4 mics. On no sedation unresponsive. 11/26 No acute events overnight. On CPAP with PS 20, PEEP: 5 and FIO2 40%. Afebrile. Off Dopamine. Afebrile. 11/27 Patient remains on ventilator via trach on no drips. Afebrile. For PEG tube placement by IR today. 11/28 Patient s/p PEG tube placement by IR yesterday, s/p Right thoracentesis with removal 700ml CXR showed better aeration of lungs, Hgb 6.7 this morning 2units PRBC ordered. Renal function worse with Cr: 3.40 from 2.85 . 11/29: Remains encephalopathic on mechanical ventilation via tracheostomy. 11/30: Remains encephalopathic on mechanical ventilation via tracheostomy. 12/01 Patient s/p transfusion 1unit PRBC last night for Hgb 5.8 in addition to 2L NS. Hgb 6.5 this morning. Objective Vital Signs Date Time Temp Pulse Resp B/P Pulse Ox O2 Delivery O2 Flow Rate FiO2 12/01/16 06:00 69 12/01/16 04:03 100 40 12/01/16 04:00 98.4 15 165/81 Intake and Output 11/30/16 11/30/16 12/01/16 08:00 16:00 00:00 Intake Total 847 ml 1106 ml 270 ml Output Total 500 ml 950 ml 300 ml Balance 347 ml 156 ml -30 ml Result Diagram: 12/01/16 0524 12/01/1624 Other Results Laboratory Tests Test 11/30/16 11/30/16 12/01/16 22:58 23:19 05:24 Hemoglobin 5.8 GM/DL 6.5 GM/DL Hematocrit 17.8 % 19.7 % Blood Type O POSITIVE Crossmatch Leukocyte-Reduced Red Blood Cells Blood Bank Comment White Blood Count 5.3 TH/MM3 Red Blood Count 2.36 MIL/MM3 Mean Corpuscular Volume 83.4 FL Mean Corpuscular Hemoglobin 27.6 PG Mean Corpuscular Hemoglobin 33.1 % Concent Red Cell Distribution Width 21.8 % Platelet Count 76 TH/MM3 Mean Platelet Volume 9.2 FL Neutrophils (%) (Auto) 73.3 % Lymphocytes (%) (Auto) 7.2 % Monocytes (%) (Auto) 7.9 % Eosinophils (%) (Auto) 11.3 % Basophils (%) (Auto) 0.3 % Neutrophils # (Auto) 3.9 TH/MM3 Lymphocytes # (Auto) 0.4 TH/MM3 Monocytes # (Auto) 0.4 TH/MM3 Eosinophils # (Auto) 0.6 TH/MM3 Basophils # (Auto) 0.0 TH/MM3 CBC Comment AUTO DIFF Differential Comment AUTO DIFF CONFIRMED Platelet Estimate LOW Platelet Morphology Comment NORMAL Polychromasia 2.0 % Basophilic Stippling FAINT Keratocytes OCC Sodium Level 148 MEQ/L Potassium Level 3.5 MEQ/L Chloride Level 113 MEQ/L Carbon Dioxide Level 23.5 MEQ/L Anion Gap 12 MEQ/L Blood Urea Nitrogen 78 MG/DL Creatinine 3.60 MG/DL Estimat Glomerular Filtration 12 ML/MIN Rate Random Glucose 145 MG/DL Calcium Level 7.8 MG/DL Imaging Last Impressions Chest X-Ray 11/27/16 0562 Signed Impressions: Service Date/Time: Sunday, November 27, 2016 15:24 - CONCLUSION: 1. Marked improvement in right lung aeration post thoracentesis. No pneumothorax. 2. Improving bilateral airspace disease. Persistent, small left basilar consolidation/effusion Kirit Alcantar MD Thoracentesis 11/27/16 0000 Signed Impressions: Service Date/Time: Sunday, November 27, 2016 14:18 - CONCLUSION: Uncomplicated ultrasound guided thoracentesis. Kirit Alcantar MD Abdomen Ultrasound 11/27/16 0000 Signed Impressions: Service Date/Time: Sunday, November 27, 2016 08:35 - CONCLUSION: Stone in the neck of the gallbladder. Trace ascites and mild splenomegaly Jeffery Alvarado MD Gastrostomy Tube Placement 11/24/16 0000 Signed Impressions: Service Date/Time: Sunday, November 27, 2016 14:34 - CONCLUSION: Uncomplicated gastrostomy tube placement as above. Kirit Alcantar MD Chest CT 11/21/16 0000 Signed Impressions: Service Date/Time: Monday, November 21, 2016 22:57 - CONCLUSION: 1. Moderate size right pleural effusion and small left pleural effusion. Right effusion has increased over the last day compared with a recent chest radiograph. 2. Bilateral lung consolidation as above. Differential diagnosis includes pneumonia and aspiration. Emeterio Freire MD Head CT 11/08/16 1657 Signed Impressions: Service Date/Time: Tuesday, November 08, 2016 17:06 - CONCLUSION: Low density seen throughout the posterior circulation regions including the susan and midbrain, cerebellar hemispheres, occipital and posterior medial temporal lobes and right thalamus. This likely represents areas of infarction involving the posterior territory circulation. Jeffery Zhong MD Carotid Artery Ultrasound 11/08/16 0000 Signed Impressions: Service Date/Time: Tuesday, November 08, 2016 22:24 - CONCLUSION: Mild calcified plaque at the carotid bulbs. No evidence of hemodynamically significant carotid stenosis. José Luis Beltran MD Objective Remarks GENERAL: Patient is 86 yo on ventilator via trach. SKIN: Warm and dry. HEAD: Normocephalic. EYES: No scleral icterus. No injection or drainage. NECK: Supple, trachea midline. No JVD or lymphadenopathy. CARDIOVASCULAR: Regular rate and rhythm without murmurs, gallops, or rubs. RESPIRATORY: Breath sounds equal bilaterally. Few coarse BS GASTROINTESTINAL: Abdomen soft, non-tender, nondistended. PEG in place MUSCULOSKELETAL: No cyanosis, or edema. Neuro: Positive corneal reflex. LIDYA. Negative cough. Negative gag. Extensor posturing in uppers. Downgoing Babinski. 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 She was last seen normal, nearly 24 hours, she was not a candidate for any interventional therapy. Unfortunately, given her age, and the extent of the stroke, her prognosis for any reasonable neurologic function is quite poor, and I do not think that we will be able to improve her outcome at all. Her family expressed wishes for a short course of aggressive medical management. Active problems: Massive posterior circulation ischemic CVA Hypoxic and hypercarbic respiratory failure Severe encephalopathy secondary to stroke Severe sepsis Healthcare associated pneumonia with pleural effusion Acute kidney injury UTI Anemia-acute and chronic Hyperglycemia of critical illness Thrombocytopenia Plan Neuro: On no sedation Monitor neuro status and avoid sedatives. Neuro is following -11/08 CT brain: Low density seen throughout the posterior circulation regions including the susan and midbrain, cerebellar hemispheres, occipital and posterior medial temporal lobes and right thalamus. This likely represents areas of infarction involving the posterior territory circulation Resp: -Continue with vent support keep sat >92% Vent bundle, Head of bed 30, bronchodilators -s/p trach 11/23, pulm toilet, trach care -SBT daily as lia -s/p CT guided right thoracentesis 11/27 with removal 700ml clear fluid. -Will get CT chest wo contrast CVS: Monitor HR and BP keep MAP>65mmhg 2-D echo -EF 5560 %, mild aortic mitral and tricuspid regurgitation, No RWMA. Carotid ultrasound-no stenosis GI: -s/p PEG tube placement by IR 11/27 , TF held (Jevity 1.5 with goal rate 45 ml/hr) -s/p EGD 11/24 showed mild gastritis unable to place PEG tube endoscopically. -Monitor LFT's, US abdomen: Stone in neck of gall bladder, no hydronephrosis -s/p transfusion 1unit PRBC last night will transfuse 2units PRBC this morning. -Check CT abdomen/pelvis : -Monitor renal function, I/O's, electrolytes replacement as needed. - Cr: 3.60 today with UO: 1700ml in 24 hrs -on Albumin 25gms Q12, Bumex 2mg IV BID. Renal is following- Dr. Zuniga -On Free water 250ml Q6 monitor sodium level. ID: -Continue abx per ID ( Rocephin, Zithromax) monitor for signs of infections ( Fever, WBC) -Urine culture 11/18/16 with Brionna albicans and E coli NOT S Levaquin, but S to zosyn -Infectious disease Dr. Wen, follow up on sputum cx 11/23: nl resp erica Heme: Monitor CBC, for transfusion 2units PRBC today Endo: --Medium dose sliding scale regimen- Proph: Subcutaneous heparin on hold secondary to thrombocytopenia, anemia and possible GI bleed. SCDs for DVT prophylaxis Protonix for GI prophylaxis -Palliative care is following IV access: Peripheral IV's, Level 3 Kacy Ayala MD Dec 01, 2016 08:24
[2016-12-01] MEDS: SODIUM CHLORIDE 0.9% FLUSH 5 ML FLUSH IV FLUSH SCH ×2 (09:00→20:14)
[2016-12-01] MEDS: ARTIFICIAL TEARS OPTH SOLN 15 ML BTL EACH EYE SCH ×3 (09:00→17:10)
--- NOTE | 2016-12-01 10:00 | HHI.NPPN ---
Subjective History of Present Illness 86 year old with CVA, Resp failure s/p Trach/ PEG Review of Systems General Constitutional: Fatigue Objective Data Data 11/30/16 12/01/16 19:00 07:00 Intake Total 1106 ml 2974 ml Output Total 950 ml 1400 ml Balance 156 ml 1574 ml IV Total 200 ml 2054 ml Tube Feeding 306 ml 240 ml Albumin 100 ml 100 ml Packed Cells 300 ml Other 500 ml 280 ml Output Urine Total 950 ml 800 ml Stool Total 600 ml # Bowel Movements 2 Vital Signs Date Time Temp Pulse Resp B/P Pulse Ox O2 Delivery O2 Flow Rate FiO2 12/01/16 08:32 99 40 12/01/16 06:00 69 12/01/16 04:03 100 40 12/01/16 04:00 30 12/01/16 04:00 71 12/01/16 04:00 98.4 71 15 165/81 95 12/01/16 02:00 76 12/01/16 02:00 98.6 76 15 102/52 100 12/01/16 01:45 98.6 74 15 100/51 99 12/01/16 01:30 98.4 73 15 110/54 99 12/01/16 00:06 93 40 12/01/16 00:00 98.6 84 15 148/61 98 12/01/16 00:00 84 12/01/16 00:00 30 11/30/16 22:00 71 11/30/16 20:24 99 30 11/30/16 20:00 30 11/30/16 20:00 66 11/30/16 20:00 97.4 68 15 97/51 100 11/30/16 18:00 68 11/30/16 16:00 30 11/30/16 16:00 68 11/30/16 16:00 94.9 68 14 132/56 98 11/30/16 14:51 98 30 11/30/16 14:00 66 11/30/16 12:00 30 11/30/16 12:00 66 11/30/16 12:00 96.9 66 14 112/54 100 11/30/16 10:00 68 -: 12/01/16 0524 12/01/16 0524 Microbiology 12/01/16 Stool Occult Blood (KIANA), Received Pending Physical Exam General Appearance: Pale Neck Neck Remarks s/p trach Pulmonary Resp Exam: Decreased Bases Cardiology CV Exam: Regular Gastrointestinal/Abdomen GI Exam: Soft, Non-Tender Extremeties Extremities Exam: Moderate Edema Assessment/Plan Problem List: (1) Acute renal failure Plan: Patient has multiple issues and has malnutrition with poor albumin contributing to low oncotic pressure, ATN Cr 3.6 has GI bleed? PRBC given UOP 1.7 L on Bumex 2 mg q 12 no meaningful recovery from CVA palliative care following follow BMP (2) Metabolic acidosis Plan: will follow (3) Pneumonia Plan: On Ceftriaxone/Fluconazole (4) Urinary tract infection Plan: Escherichia coli she is on Ceftriaxone (5) CVA (cerebral vascular accident) Plan: Massive stroke neurology following (6) Rhabdomyolysis Plan: This resolved Problem Qualifiers (1) Acute renal failure: Qualified Code: N17.9 - Acute renal failure, unspecified acute renal failure type (2) CVA (cerebral vascular accident): Qualified Code: I63.9 - Cerebrovascular accident (CVA), unspecified mechanism (3) Rhabdomyolysis: Qualified Code: M62.82 - Non-traumatic rhabdomyolysis Kristel Zuniga MD Dec 01, 2016 10:00
[2016-12-01] MEDS: FERROUS SULFATE 300 MG /5ML UDC PO SCH ×2 (10:26→20:14)
[2016-12-01] MEDS: BUMETANIDE INJ 1 MG/4 ML VIAL IV PUSH SCH ×2 (10:26→17:08)
[2016-12-01] MEDS: PANTOPRAZOLE SODIUM 40 MG VIAL IV SCH (10:26)
--- NOTE | 2016-12-01 14:10 | RADRPT ---
EXAM DATE/TIME: 12/01/2016 13:09 [facility] COMPARISON: CT THORAX W/O CONTRAST, November 21, 2016, 22:57. INDICATIONS : Short of breath. RADIATION DOSE: 17.40 CTDIvol (mGy) ; Combined studies - Thorax/Abdomen/Pelvis MEDICAL HISTORY : Non-responsive. SURGICAL HISTORY : Non-responsive. ENCOUNTER: Initial ACUITY: 1 day PAIN SCALE: Non-responsive LOCATION: Bilateral chest TECHNIQUE: Volumetric scanning of the chest was performed. Using automated exposure control and adjustment of t he mA and/or kV according to patient size, radiation dose was kept as low as reasonably achievable to obtain optimal diagnostic quality images. FINDINGS: There is a large right pleural effusion with a smaller left. Patchy air-space disease is seen in both lungs. Generalized anasarca is noted. There is no axillary adenopathy. There is no radiographically signif icant mediastinal adenopathy. Marked coronary calcifications are noted. CONCLUSION: Bilateral pleural effusion, larger on the right than the left. Mack Cao MD FACR on December 01, 2016 at 13:31 Board Certified Radiologist. This report was verified electronically.
--- NOTE | 2016-12-01 15:18 | RADRPT ---
EXAM DATE/TIME: 12/01/2016 13:09 [facility] COMPARISON: No previous studies available for comparison. INDICATIONS : Rule out bleed. ORAL CONTRAST: No oral contrast ingested. RADIATION DOSE: 17.40 CTDIvol (mGy) ; Combined studies - Thorax/Abdomen/Pelvis MEDICAL HISTORY : Non-responsive. SURGICAL HISTORY : Non-responsive. ENCOUNTER: Initial ACUITY: 1 day PAIN SCALE: Non-responsive LOCATION: Bilateral abdomen TECHNIQUE: Volumetric scanning of the abdomen and pelvis was performed. Using automated exposure control and ad justment of the mA and/or kV according to patient size, radiation dose was kept as low as reasonably achievable to obtain optimal diagnostic quality images. FINDINGS: Again seen is a large bilateral pleural effusion, larger on the right than the left. Generalized anasarca is evident. The liver is free of focal defects. Gastrostomy tube is evident. Trace ascites is noted. There is no free air. There is no retroperitoneal hemorrhage. Extensive vascular calcifications are noted. Pelvic contents are remarkable only for trace fluid. T here is a hernia in the right inguinal region that contains only fluid. CONCLUSION: 1. Right inguinal hernia containing only fluid. 2. Generalized anasarca. 3. Trace ascites. 4. Bilateral pleural effusions, larger on the right than the left. Mack Cao MD FACR on December 01, 2016 at 13:34 Board Certified Radiologist. This report was verified electronically.
--- NOTE | 2016-12-01 17:06 | HHI.GIFU ---
Subjective Remarks Reconsulted for drop in Hgb. Nurse reports that there is some melena in rectal bag. Pt sedated on vent. I did aspirate some old coffee ground gastric secretions from PEG tube. Currently stable hemodynamically. (Yoli Dickens) Objective Vitals I&O Vital Signs Date Time Temp Pulse Resp B/P Pulse Ox O2 Delivery O2 Flow Rate FiO2 12/01/16 16:04 99 40 12/01/16 14:00 63 12/01/16 13:26 99 100 12/01/16 12:00 97.5 66 15 108/49 100 12/01/16 12:00 66 12/01/16 12:00 30 12/01/16 11:58 99 40 12/01/16 10:00 65 12/01/16 08:32 99 40 12/01/16 08:00 96.4 69 15 111/53 99 12/01/16 08:00 30 12/01/16 08:00 69 12/01/16 06:00 69 12/01/16 04:03 100 40 12/01/16 04:00 30 12/01/16 04:00 71 12/01/16 04:00 98.4 71 15 165/81 95 12/01/16 02:00 76 12/01/16 02:00 98.6 76 15 102/52 100 12/01/16 01:45 98.6 74 15 100/51 99 12/01/16 01:30 98.4 73 15 110/54 99 12/01/16 00:06 93 40 12/01/16 00:00 98.6 84 15 148/61 98 12/01/16 00:00 84 12/01/16 00:00 30 11/30/16 22:00 71 11/30/16 20:24 99 30 11/30/16 20:00 30 11/30/16 20:00 66 11/30/16 20:00 97.4 68 15 97/51 100 11/30/16 18:00 68 I/O 11/30/16 11/30/16 11/30/16 12/01/16 12/01/16 12/01/16 07:00 15:00 23:00 07:00 15:00 23:00 Intake Total 847 ml 1106 ml 270 ml 2704 ml Output Total 500 ml 950 ml 300 ml 1100 ml Balance 347 ml 156 ml -30 ml 1604 ml IV Total 200 ml 200 ml 2054 ml Tube Feeding 297 ml 306 ml 240 ml Albumin 100 ml 100 ml 100 ml Packed Cells 300 ml Other 250 ml 500 ml 30 ml 250 ml Output Urine Total 500 ml 950 ml 300 ml 500 ml Stool Total 600 ml # Bowel Movements 3 2 Laboratory Laboratory Tests Test 11/30/16 11/30/16 12/01/16 12/01/16 22:58 23:19 05:24 10:35 Hemoglobin 5.8 6.5 Hematocrit 17.8 19.7 Blood Type O POSITIVE O POSITIVE Crossmatch Leukocyte-Reduced Leukocyte-Reduced Red Blood Red Blood Cells Cells Blood Bank Comment White Blood Count 5.3 Red Blood Count 2.36 Mean Corpuscular Volume 83.4 Mean Corpuscular Hemoglobin 27.6 Mean Corpuscular Hemoglobin 33.1 Concent Red Cell Distribution Width 21.8 Platelet Count 76 Mean Platelet Volume 9.2 Neutrophils (%) (Auto) 73.3 Lymphocytes (%) (Auto) 7.2 Monocytes (%) (Auto) 7.9 Eosinophils (%) (Auto) 11.3 Basophils (%) (Auto) 0.3 Neutrophils # (Auto) 3.9 Lymphocytes # (Auto) 0.4 Monocytes # (Auto) 0.4 Eosinophils # (Auto) 0.6 Basophils # (Auto) 0.0 CBC Comment AUTO DIFF Differential Comment AUTO DIFF CONFIRMED Platelet Estimate LOW Platelet Morphology Comment NORMAL Polychromasia 2.0 Basophilic Stippling FAINT Keratocytes OCC Sodium Level 148 Potassium Level 3.5 Chloride Level 113 Carbon Dioxide Level 23.5 Anion Gap 12 Blood Urea Nitrogen 78 Creatinine 3.60 Estimat Glomerular Filtration 12 Rate Random Glucose 145 Calcium Level 7.8 Antibody Screen POSITIVE Test 12/01/16 14:25 Antibody Identification Anti-Angella Date/Time Procedure Status Source Growth 12/01/16 08:35 Stool Occult Blood (KIANA) - Final Complete Stool Stool HEMOCCULT POSITIVE Imaging Last Impressions Chest CT 12/01/16 0000 Signed Impressions: Service Date/Time: Thursday, December 01, 2016 13:09 - CONCLUSION: Bilateral pleural effusion, larger on the right than the left. Mack Cao MD FACR Chest X-Ray 11/27/16 1522 Signed Impressions: Service Date/Time: Sunday, November 27, 2016 15:24 - CONCLUSION: 1. Marked improvement in right lung aeration post thoracentesis. No pneumothorax. 2. Improving bilateral airspace disease. Persistent, small left basilar consolidation/effusion Kirit Alcantar MD Thoracentesis 11/27/16 0000 Signed Impressions: Service Date/Time: Sunday, November 27, 2016 14:18 - CONCLUSION: Uncomplicated ultrasound guided thoracentesis. Kirit Alcantar MD Abdomen Ultrasound 11/27/16 0000 Signed Impressions: Service Date/Time: Sunday, November 27, 2016 08:35 - CONCLUSION: Stone in the neck of the gallbladder. Trace ascites and mild splenomegaly Jeffery Alvarado MD Gastrostomy Tube Placement 11/24/16 0000 Signed Impressions: Service Date/Time: Sunday, November 27, 2016 14:34 - CONCLUSION: Uncomplicated gastrostomy tube placement as above. Kirit Alcantar MD Head CT 11/08/16 1657 Signed Impressions: Service Date/Time: Tuesday, November 08, 2016 17:06 - CONCLUSION: Low density seen throughout the posterior circulation regions including the susan and midbrain, cerebellar hemispheres, occipital and posterior medial temporal lobes and right thalamus. This likely represents areas of infarction involving the posterior territory circulation. Jeffery Zhong MD Carotid Artery Ultrasound 11/08/16 0000 Signed Impressions: Service Date/Time: Tuesday, November 08, 2016 22:24 - CONCLUSION: Mild calcified plaque at the carotid bulbs. No evidence of hemodynamically significant carotid stenosis. José Luis Beltran MD Physical Exam HEENT: Normocephalic; atraumatic; no jaundice. CHEST: CTA, diminished CARDIAC: RRR ABDOMEN: Soft, nondistended, no hepatosplenomegaly; bowel sounds are present in all four quadrants. PEG tube- aspirated some coffee ground gastric secretions from peg tube. Melena noted in bag. EXTREMITIES: Generalized edema. SKIN: Generalized pallor SOLE STITCHER HAND: Sedated on vent (Yoli Dickens) Assessment and Plan Plan ASSESSMENT: - Reconsulted for anemia with drop in hgb. H/H went from 8.9/27.1 to 5.8/17.8. Repeat 6.5/19.7. Aspirated coffee ground gastric secretions from PEG tube. Melena is in bag. Protonix Gtt. Monitor HH. Plan for rpt. EGD in am. - Dysphagia, FEN. Pt currently in ICU being treated for massive posterior circulation ischemic CVA and she remains in the ICU being treated for hypoxic respiratory failure, severe encephalopathy secondary to stroke, severe sepsis, HCAP with pleural effusion, and acute kidney injury. She is S/P tracheostomy. S/P EGD (11/24/16)----> 1. There was mild gastritis in the gastric antrum; Edematous; multiple biopsies were performed 2. Benign nodule in the antrum this was biopsied 3. Insufflation was performed in the stomach to assess for indentation and transillumination for PEG placement I was unable to obtain good transillumination and indentation and the abdomen was somewhat tight and as such the PEG placement was aborted. 4. Retroflexed views revealed no abnormalities. Had PEG tube placement by IR on 11/27. PLAN: - Plan for egd in am - Obtain consents - NPO except meds - Protonix Gtt - Heparin on hold - Ore Trimmer recommends Jevity 1.5 with goal rate of 40 ml/hr. - Pt seen and examined by Dr. Mena and myself and this note is written on his behalf (Yoli Dickens) Physician Comments Seen and examined with ZANE, reconsulted for melena with drop in H/H. EGD planned for tomorrow. Dr. Farnsworth to follow. Discussed with nurse. IV protonix. Transfuse as needed. Thank you (Tiago Mena MD) Yoli Dickens Dec 01, 2016 17:06 Tiago Mena MD Dec 01, 2016 19:26
[2016-12-01] MEDS: FLUCONAZOLE 200 MG PREMIX BAG 100 ML IV SCH (17:08)
[2016-12-01] MEDS: HYOSCYAMINE SOLN 0.125 MG/ML 15 ML BTL PO PRN (17:09)
[2016-12-01] MEDS: PANTOPRAZOLE INJ 80 MG in SODIUM CHLORIDE 0.9% INJ 100 ML IV SCH (18:02)
--- NOTE | 2016-12-01 19:27 | PD.RAD ---
Post CT Procedure Prog Note Pre Procedure Diagnosis: (1) Pleural effusion Post Procedure Diagnosis: (1) Pleural effusion Procedure Date: Dec 01, 2016 Supervising Radiologist: Jeffery Alvarado Proceduralist/Assist: RT Annabella(R)(CT) Anesthesia: Local Plan of Activity Patient to Unit: Critical Care Patient Condition: Critical See PACS Report for procedural detail/treatment Drainage Procedure Procedure 1 Imaging Guidance: CT Side: Right Procedure Type: Thoracentesis Drainage: Suction Fluid Removal (CCs): 600 Fluid Description: Jeffery Sullivan MD Dec 01, 2016 19:27
[2016-12-01] MEDS ORDERED: LIDOCAINE 1%/EPINEPHrine 1:100,000 SOLN 20 ML VIAL ONE (19:47)
--- NOTE | 2016-12-01 20:10 | RADRPT ---
EXAM DATE/TIME: 12/01/2016 18:56 INDICATIONS : Right pleural effusion. DEVICE(S): 1.) 6 Fr [id number]-[id number] FLUID: Total volume of 600 cc of clear, yellow fluid was removed. Fluid was sent for laboratory ordered studies. MEDICAL HISTORY : Cerebrovascular disease. SURGICAL HISTORY : None. ENCOUNTER: Initial ACUITY: 1 day PAIN SCORE: 0/10 LOCATION: Right chest PROCEDURE: 1. CT guided right thoracentesis. 3. EKG and oximetry remained stable throughout the procedure. The site was prepped in sterile fashion. Full sterile technique was used, including cap, mask, steri le gloves and gown and a large sterile sheet. Hand hygiene and 2% chlorhexidine and/or betadine/alco hol prep was utilized per protocol for cutaneous antisepsis. The skin and subcutaneous tissues were infiltrated with local anesthetic solution. Using automated exposure control and adjustment of the mA and/or kV according to patient size, radiation dose was kept as low as reasonably achievable to obta in optimal diagnostic quality images. With the patient supine on the CT table, flight hostess images were obtained through the chest demonstrating t he right sided pleural effusion. Dermatotomy was made and the prescribed catheter was advanced into the pleural fluid. The pleural fluid as above was removed from the hemithorax. Post procedural scan show near-complete evacuation of fluid with no evidence of pneumothorax. The patient tolerated the procedure well and there were no complications. EKG and oximetry remained s table throughout the procedure. The patient was sent to recovery in stable condition. CONCLUSION: Uncomplicated CT-guided thoracentesis. Jeffery Alvarado MD on December 01, 2016 at 20:03 Board Certified Radiologist. This report was verified electronically.
[2016-12-01 21:03] LABS: TOTAL PROTEIN,PLEURAL FLUID 2.1 GM/DL
[2016-12-01 21:45] LABS: REVIEW FLAG FINAL
[2016-12-01 21:48] LABS: HEMATOCRIT 18.8 % (35.0-46.0)
--- NOTE | 2016-12-01 22:07 | HHI.IDPN ---
Subjective Subjective Remarks Delayed entry - pt seen earlier today around 1500 remains on vent minimally responsive maroone stool large amount minimal secretions from trach afebrile Antibiotics fluc CFTX Allergies: Coded Allergies: No Known Allergies (Unverified , 11/08/16) Objective . Vital Signs Date Time Temp Pulse Resp B/P Pulse Ox O2 Delivery O2 Flow Rate FiO2 12/01/16 21:11 99 40 12/01/16 20:00 97.4 63 15 111/56 99 12/01/16 20:00 40 12/01/16 16:04 99 40 12/01/16 16:00 40 12/01/16 16:00 60 12/01/16 16:00 97.4 60 15 112/54 99 12/01/16 14:00 63 12/01/16 13:26 99 100 12/01/16 12:00 97.5 66 15 108/49 100 12/01/16 12:00 66 12/01/16 12:00 30 12/01/16 11:58 99 40 12/01/16 10:00 65 12/01/16 08:32 99 40 12/01/16 08:00 96.4 69 15 111/53 99 12/01/16 08:00 30 12/01/16 08:00 69 12/01/16 06:00 69 12/01/16 04:03 100 40 12/01/16 04:00 30 12/01/16 04:00 71 12/01/16 04:00 98.4 71 15 165/81 95 12/01/16 02:00 76 12/01/16 02:00 98.6 76 15 102/52 100 12/01/16 01:45 98.6 74 15 100/51 99 12/01/16 01:30 98.4 73 15 110/54 99 12/01/16 00:06 93 40 12/01/16 00:00 98.6 84 15 148/61 98 12/01/16 00:00 84 12/01/16 00:00 30 11/30/16 11/30/16 12/01/16 15:00 23:00 07:00 Intake Total 1106 ml 270 ml 2704 ml Output Total 950 ml 300 ml 1100 ml Balance 156 ml -30 ml 1604 ml IV Total 200 ml 2054 ml Tube Feeding 306 ml 240 ml Albumin 100 ml 100 ml Packed Cells 300 ml Other 500 ml 30 ml 250 ml Output Urine Total 950 ml 300 ml 500 ml Stool Total 600 ml # Bowel Movements 2 . Laboratory Tests Test 11/30/16 12/01/16 12/01/16 22:58 05:24 21:22 Hemoglobin 5.8 GM/DL 6.5 GM/DL 6.4 GM/DL Hematocrit 17.8 % 19.7 % 18.8 % White Blood Count 5.3 TH/MM3 Red Blood Count 2.36 MIL/MM3 Mean Corpuscular Volume 83.4 FL Mean Corpuscular Hemoglobin 27.6 PG Mean Corpuscular Hemoglobin 33.1 % Concent Red Cell Distribution Width 21.8 % Platelet Count 76 TH/MM3 Mean Platelet Volume 9.2 FL Neutrophils (%) (Auto) 73.3 % Lymphocytes (%) (Auto) 7.2 % Monocytes (%) (Auto) 7.9 % Eosinophils (%) (Auto) 11.3 % Basophils (%) (Auto) 0.3 % Neutrophils # (Auto) 3.9 TH/MM3 Lymphocytes # (Auto) 0.4 TH/MM3 Monocytes # (Auto) 0.4 TH/MM3 Eosinophils # (Auto) 0.6 TH/MM3 Basophils # (Auto) 0.0 TH/MM3 CBC Comment AUTO DIFF Differential Comment AUTO DIFF CONFIRMED Platelet Estimate LOW Platelet Morphology Comment NORMAL Polychromasia 2.0 % Basophilic Stippling FAINT Keratocytes OCC Laboratory Tests Test 12/01/16 05:24 Sodium Level 148 MEQ/L Potassium Level 3.5 MEQ/L Chloride Level 113 MEQ/L Carbon Dioxide Level 23.5 MEQ/L Anion Gap 12 MEQ/L Blood Urea Nitrogen 78 MG/DL Creatinine 3.60 MG/DL Estimat Glomerular Filtration 12 ML/MIN Rate Random Glucose 145 MG/DL Calcium Level 7.8 MG/DL Microbiology Date/Time Procedure Status Source Growth 12/01/16 08:35 Stool Occult Blood ([facility]) - Final Complete Stool Stool HEMOCCULT POSITIVE Imaging Last Impressions Thoracentesis 12/01/16 0000 Signed Impressions: Service Date/Time: Thursday, December 01, 2016 18:56 - CONCLUSION: Uncomplicated CT-guided thoracentesis. Jeffery Alvarado MD Chest CT 12/01/16 0000 Signed Impressions: Service Date/Time: Thursday, December 01, 2016 13:09 - CONCLUSION: Bilateral pleural effusion, larger on the right than the left. Mack Cao MD FACR Chest X-Ray 11/27/16 1522 Signed Impressions: Service Date/Time: Sunday, November 27, 2016 15:24 - CONCLUSION: 1. Marked improvement in right lung aeration post thoracentesis. No pneumothorax. 2. Improving bilateral airspace disease. Persistent, small left basilar consolidation/effusion Kirit Alcantar MD Abdomen Ultrasound 11/27/16 0000 Signed Impressions: Service Date/Time: Sunday, November 27, 2016 08:35 - CONCLUSION: Stone in the neck of the gallbladder. Trace ascites and mild splenomegaly Jeffery Alvarado MD Gastrostomy Tube Placement 11/24/16 0000 Signed Impressions: Service Date/Time: Sunday, November 27, 2016 14:34 - CONCLUSION: Uncomplicated gastrostomy tube placement as above. Kirit Alcantar MD Head CT 11/08/16 1657 Signed Impressions: Service Date/Time: Tuesday, November 08, 2016 17:06 - CONCLUSION: Low density seen throughout the posterior circulation regions including the susan and midbrain, cerebellar hemispheres, occipital and posterior medial temporal lobes and right thalamus. This likely represents areas of infarction involving the posterior territory circulation. Jeffery Zhong MD Carotid Artery Ultrasound 11/08/16 0000 Signed Impressions: Service Date/Time: Tuesday, November 08, 2016 22:24 - CONCLUSION: Mild calcified plaque at the carotid bulbs. No evidence of hemodynamically significant carotid stenosis. José Luis Beltran MD Physical Exam CONSTITUTIONAL/GENERAL: This is a thin elderly frail patient, in no apparent distress. trach'ed , on vent TUBES/LINES/DRAINS: SKIN: No jaundice, rashes, or lesions. Skin temperature appropriate. Not diaphoretic. EYES: No scleral icterus. No injection or drainage. Fundi not examined. ENT: moist mucosae NECK: trach in place with small amount of mucoid bloody drainage CARDIOVASCULAR: Regular rate and rhythm without murmurs, gallops, or rubs. No JVD. Peripheral pulses symmetric. RESPIRATORY/CHEST: Symmetric, unlabored respirations. Scattered rhonchi to auscultation. Breath sounds equal bilaterally. GASTROINTESTINAL: Abdomen soft, no reaction to palpation, moderately distended. No hepato-splenomegaly, or palpable masses. Maroone stool in rectal bag GENITOURINARY: Without palpable bladder distension. Tejead catheter in place with clear yellow urine MUSCULOSKELETAL: Extremities without clubbing, cyanosis, +2 -3 soft pitting edema more prominent on BUE. No joint tenderness or effusion noted. 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 PNA ? aspiration Severe sepsis - clinically better , though still low BP Right sided infiltrate/ HCAP/ ? aspiration PNA Bacteriuria vs recurrent UTI Worsening renal fnx Funguria, C.albicans Diarrhea, rectal bleeding - dc CFTX - dc fluconazole dw Shani Cota MD Dec 01, 2016 22:07
[2016-12-01 23:19] LABS: PLEURAL FLUID LYMPHS 28 %
[2016-12-02] VITALS (17 sets, daily range): BP systolic 102–144; BP diastolic 47–73; PULSE 61–69; RESP 15–17; TEMP 96.6–97.9; O2SAT 98–100
[2016-12-02] MEDS: PANTOPRAZOLE INJ 80 MG in SODIUM CHLORIDE 0.9% INJ 100 ML IV SCH ×3 (00:30→23:03)
[2016-12-02] MEDS: ALBUMIN HUMAN 25% 25 GM/100 ML BAGP IV SCH ×2 (02:25→14:45)
[2016-12-02] MEDS: HIGH DOSE INSULIN NOVOLIN REGULAR SUPPLEMENTAL SCALE SQ SCH ×5 (02:29→20:00)
[2016-12-02 04:46] LABS: ALT (GPT) 6 U/L (10-53); ANION GAP 12 MEQ/L (5-15); AST (GOT) 25 U/L (15-37); BICARBONATE 24.5 MEQ/L (21.0-32.0); BLOOD UREA NITROGEN 81 MG/DL (7-18); CHLORIDE 114 MEQ/L (98-107); GLOMERULAR FILTRATION RATE 12 ML/MIN (>89); POTASSIUM 3.3 MEQ/L (3.5-5.1); SODIUM (NA) 150 MEQ/L (136-145)
[2016-12-02 04:51] LABS: AUTOMATED NEUTROPHIL # 3.5 TH/MM3 (1.8-7.7); BASOPHIL % 0.2 % (0.0-2.0); EOSINOPHIL # 0.5 TH/MM3 (0-0.4); EOSINOPHIL % 10.1 % (0.0-4.0); LYMPH % 7.9 % (9.0-44.0); LYMPHOCYTE # 0.4 TH/MM3 (1.0-4.8); MEAN CELL VOLUME 86.1 FL (80.0-100.0); MEAN CORPUSCULAR HEMOGLOBIN 28.9 PG (27.0-34.0); MEAN CORPUSCULAR HGB CONC 33.6 % (32.0-36.0); MONO % 10.8 % (0.0-8.0); PLATELET COUNT 56 TH/MM3 (150-450); RED BLOOD COUNT 2.55 MIL/MM3 (4.00-5.30); RED CELL DISTRIBUTION WIDTH 17.9 % (11.6-17.2)
[2016-12-02 05:03] LABS: HEMO FLAGS AUTO DIFF
[2016-12-02 05:19] LABS: ALKALINE PHOSPHATASE 60 U/L (45-117); TOTAL BILIRUBIN ADULT 0.5 MG/DL (0.2-1.0)
[2016-12-02] MEDS ORDERED: POTASSIUM CHLORIDE 20 MEQ PWD PACKET PO ONE (08:00)
[2016-12-02] MEDS: ARTIFICIAL TEARS OPTH SOLN 15 ML BTL EACH EYE SCH ×3 (09:00→15:52)
[2016-12-02] MEDS: SODIUM CHLORIDE 0.9% FLUSH 5 ML FLUSH IV FLUSH SCH ×2 (09:00→21:00)
[2016-12-02 09:10] LABS: BANDS 24 % (0-6); BASOPHILS 1 % (0-2); EOSINOPHILS 8 % (0-4); NEUTROPHIL # MANUAL DIFF 3.8 TH/MM3 (1.8-7.7); POLYS (SEG NEUTROPHILS) 51 % (16-70); WBC DIFF SAMPLE 100
[2016-12-02 09:11] LABS: ACANTHOCYTES OCC (NORMAL); PLATELET ESTIMATE SMEAR LOW (NORMAL); PLATELET MORPHOLOGY NORMAL (NORMAL); SCAN/DIFF FINAL DIFF MANUAL
[2016-12-02] MEDS: FERROUS SULFATE 300 MG /5ML UDC PO SCH ×2 (09:15→21:00)
[2016-12-02] MEDS: BUMETANIDE INJ 1 MG/4 ML VIAL IV PUSH SCH ×2 (09:15→17:54)
[2016-12-02] MEDS: CHLORHEXIDINE 0.12% (ORAL KIT) 15 ML CUP MT SCH ×2 (09:16→20:00)
--- NOTE | 2016-12-02 10:53 | RADRPT ---
EXAM DATE/TIME: 12/02/2016 10:19 [place] COMPARISON: CT THORAX W/O CONTRAST, December 01, 2016, 13:09. CHEST SINGLE AP, November 27, 2016, 15:24. INDICATIONS : Respiratory failure. MEDICAL HISTORY : Cerebrovascular disease. SURGICAL HISTORY : Non-responsive. ENCOUNTER: Subsequent ACUITY: 3 weeks PAIN SCORE: Non-responsive. LOCATION: Chest. FINDINGS: Single semiupright portable view of the chest demonstrate significant rotation of the patient. There is a tracheostomy tube overlying the midline trachea. The heart size is moderately enlarged. The lung s demonstrate bilateral patchy basilar air space opacities consistent with congestive heart failure a nd pulmonary edema. As compared to the prior CT there has been decreased volume of pleural fluid. CONCLUSION: Radiographic findings consistent with stable congestive heart failure pulmonary edema. The patient is status post thoracocentesis with decreased pleural fluid and no evidence of pneumothor ax. Altagracia Brothers MD on December 02, 2016 at 10:48 Board Certified Radiologist. This report was verified electronically.
--- NOTE | 2016-12-02 11:05 | HHI.CCPN ---
Subjective Remarks/Hospital Course This is an 86yF with per report no other past medical history who presented to the ER after she was found unresponsive in her bed. According to ER reports, her family saw her normal last night when she had a fall, with unknown LOC. At that point, he helped her back to bed. However, this morning she did not wake up. On arrival to the ER, she was unresponsive only withdrawing to pain. she was intubated for airway protection and a poor GCS. CT head demonstrated massive posterior-circulation ischemic stroke. The patient is currently intubated and unresponsive and cannot provide any additional history. 11/09: No acute changes overnight. Palliative care team has consult with the family regarding goals of care. Currently the patient's sedation fentanyl infusion has been turned off without any response from patient. The patient notably does withdrawal to pain. 11/10: No change in neurological status. [id number]. The patient withdraws to pain 4 extremities. The patient currently on no sedation, fentanyl infusion discontinued yesterday. Tube feeds were initiated. The patient's urine culture grew back Escherichia coli, the patient was started on antibiotics. Extensive discussion with son regarding patient's neurological status, son Wyatt has had extensive discussion with palliative care.The son feels that yesterday when the patient was spoken to in Malay the patient squeezed his hand and desires aggressive treatment. The patient's neuro status is unchanged, totally unresponsive with occasional reflexive twitching of feet B/L. Follow-up with neurology Dr. Pack, guarding any further imaging studies. 11/13: No change in neuro exam. Palliative care following. Family wanting full aggressive care. Palliative care will address early trach PEG 11/14: No improvement in neuro status. Son has not made decisions regarding trach and PEG. Apparently he wants to wait longer to see any improvement 11/15: Remains unresponsive. Neuro exam with extensor posturing-unchanged. Son requesting aggressive care. Continues to have low-grade fever 11/16: Clinically no improvement. Tolerates CPAP. Unable to extubate as patient will not protect airway 11/17: Tolerating C Pap but no change in neuro exam. Hemoglobin noted to be 6.8 hemodynamically stable 11/18: Became tachycardic and hypotensive early a.m., placed on assist control. Otherwise neuro exam remains unchanged 11/19: Continues to spike fever Tmax 102, started on vancomycin and cefepime in addition to Levaquin yesterday. Currently only low-grade fever. Received 2 units of blood for hemoglobin of 5.3. CBC pending at this time. No improvement in neuro exam 11/20: White count is 18.3 today, MAXIMUM TEMPERATURE 103.1. Chest x-ray showing right sided infiltrate. Urine culture with gram-negative rods and Brionna albicans. ID consulted Diflucan added 11/21/16: Tmax 101.5. Bilateral lung infiltrates, R>L but slightly improved. No improvement in neuro exam. ID consulted and following. 11/22/16: No fever. CT chest- moderate to large R pleural effusion, bilateral lung infiltrates. ABX per ID. CXR today shows increasing bilateral infiltrates and effusion right more than left. Almost near complete infiltrates on the right lung [place]. Vaginally worsening creatinine today 1.45 indicating multiorgan failure 11/23/16: Hb 9.8 today after 2U PRBC yesterday. Plan for tracheostomy today. INR normal platelet count 116. Worsening creatinine today is 1.6. UO 550 ml in 24 hours. 1L NS bolus and 75 ml per hour maintenance NS. Started on Dopamine 3 mcg per min to maintain MAP>65 11/24 Patient is on ventilator via trach. Afebrile. On Dopamine 4 mics. 11/25 No acute events overnight. s/p EGD yesterday showed mild gastritis unable to place PEG tube endoscopically. Remains on Dopamine 4 mics. On no sedation unresponsive. 11/26 No acute events overnight. On CPAP with PS 20, PEEP: 5 and FIO2 40%. Afebrile. Off Dopamine. Afebrile. 11/27 Patient remains on ventilator via trach on no drips. Afebrile. For PEG tube placement by IR today. 11/28 Patient s/p PEG tube placement by IR yesterday, s/p Right thoracentesis with removal 700ml CXR showed better aeration of lungs, Hgb 6.7 this morning 2units PRBC ordered. Renal function worse with Cr: 3.40 from 2.85 . 11/29: Remains encephalopathic on mechanical ventilation via tracheostomy. 11/30: Remains encephalopathic on mechanical ventilation via tracheostomy. 12/01 Patient s/p transfusion 1unit PRBC last night for Hgb 5.8 in addition to 2L NS. Hgb 6.5 this morning. 12/02: Afebrile. The patient underwent CT-guided thoracentesis yesterday with approximately 600 cc removed. Chest x-ray pending this a.m.. Patient received packed red blood cell 2 units yesterday. Hemoglobin 7.4. Pending EGD today. Objective Vital Signs Date Time Temp Pulse Resp B/P Pulse Ox O2 Delivery O2 Flow Rate FiO2 12/02/16 10:13 100 40 12/02/16 10:00 65 12/02/16 08:00 96.6 15 107/50 Intake and Output 12/01/16 12/01/16 12/02/16 08:00 16:00 00:00 Intake Total 2704 ml 604 ml 127 ml Output Total 1100 ml 700 ml 750 ml Balance 1604 ml -96 ml -623 ml Result Diagram: 12/02/16 0330 12/02/16 0330 Other Results Microbiology Date/Time Procedure Status Source Growth 12/01/16 08:35 Stool Occult Blood ([facility]) - Final Complete Stool Stool HEMOCCULT POSITIVE Imaging Last Impressions Chest X-Ray 11/27/16 1522 Signed Impressions: Service Date/Time: Sunday, November 27, 2016 15:24 - CONCLUSION: 1. Marked improvement in right lung aeration post thoracentesis. No pneumothorax. 2. Improving bilateral airspace disease. Persistent, small left basilar consolidation/effusion Kirit Alcantar MD Thoracentesis 11/27/16 0000 Signed Impressions: Service Date/Time: Sunday, November 27, 2016 14:18 - CONCLUSION: Uncomplicated ultrasound guided thoracentesis. Kirit Alcantar MD Abdomen Ultrasound 11/27/16 0000 Signed Impressions: Service Date/Time: Sunday, November 27, 2016 08:35 - CONCLUSION: Stone in the neck of the gallbladder. Trace ascites and mild splenomegaly Jeffery Alvarado MD Gastrostomy Tube Placement 11/24/16 0000 Signed Impressions: Service Date/Time: Sunday, November 27, 2016 14:34 - CONCLUSION: Uncomplicated gastrostomy tube placement as above. Kirit Alcantar MD Chest CT 11/21/16 0000 Signed Impressions: Service Date/Time: Monday, November 21, 2016 22:57 - CONCLUSION: 1. Moderate size right pleural effusion and small left pleural effusion. Right effusion has increased over the last day compared with a recent chest radiograph. 2. Bilateral lung consolidation as above. Differential diagnosis includes pneumonia and aspiration. Emeterio Freire MD Head CT 11/08/16 1657 Signed Impressions: Service Date/Time: Tuesday, November 08, 2016 17:06 - CONCLUSION: Low density seen throughout the posterior circulation regions including the susan and midbrain, cerebellar hemispheres, occipital and posterior medial temporal lobes and right thalamus. This likely represents areas of infarction involving the posterior territory circulation. Jeffery Zhong MD Carotid Artery Ultrasound 11/08/16 0000 Signed Impressions: Service Date/Time: Tuesday, November 08, 2016 22:24 - CONCLUSION: Mild calcified plaque at the carotid bulbs. No evidence of hemodynamically significant carotid stenosis. José Luis Beltran MD Objective Remarks GENERAL: Patient is 86 yo on ventilator via trach. SKIN: Warm and dry. HEAD: Normocephalic. EYES: No scleral icterus. No injection or drainage. Corneal reflex intact NECK: Supple, trachea midline. No JVD or lymphadenopathy. CARDIOVASCULAR: Regular rate and rhythm without murmurs, gallops, or rubs. RESPIRATORY: Breath sounds equal bilaterally. Few coarse BS. 8.0 trach in situ GASTROINTESTINAL: Abdomen soft, non-tender, nondistended. PEG in place MUSCULOSKELETAL: No cyanosis, or edema. Neuro: Positive corneal reflex. LIDYA. Negative cough. Negative gag. Extensor posturing in uppers. Downgoing Babinski. 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 She was last seen normal, nearly 24 hours, she was not a candidate for any interventional therapy. Unfortunately, given her age, and the extent of the stroke, her prognosis for any reasonable neurologic function is quite poor, and I do not think that we will be able to improve her outcome at all. Her family expressed wishes for a short course of aggressive medical management. Active problems: Massive posterior circulation ischemic CVA Hypoxic and hypercarbic respiratory failure Severe encephalopathy secondary to stroke Severe sepsis Healthcare associated pneumonia with pleural effusion Acute kidney injury UTI Anemia-acute and chronic Hyperglycemia of critical illness Thrombocytopenia Plan Neuro: On no sedation Monitor neuro status and avoid sedatives. Neuro is following -11/08 CT brain: Low density seen throughout the posterior circulation regions including the susan and midbrain, cerebellar hemispheres, occipital and posterior medial temporal lobes and right thalamus. This likely represents areas of infarction involving the posterior territory circulation -GCS 3T Resp: -Continue with vent support keep sat >92% Vent bundle, Head of bed 30, bronchodilators -s/p trach 11/23, pulm toilet, trach care -SBT daily as lia -s/p CT guided right thoracentesis 11/27 with removal 700ml clear fluid. -12/02 CXR-pulmonary edema, stable CHF, no pneumothorax CVS: Monitor HR and BP keep MAP>65mmhg 2-D echo -EF 5560 %, mild aortic mitral and tricuspid regurgitation, No RWMA. Carotid ultrasound-no stenosis GI: -s/p PEG tube placement by IR 11/27 , TF held (Jevity 1.5 with goal rate 45 ml/hr) -s/p EGD 11/24 showed mild gastritis unable to place PEG tube endoscopically. -Monitor LFT's, US abdomen: Stone in neck of gall bladder, no hydronephrosis -s/p transfusion 1unit PRBC last night will transfuse 2units PRBC 12/01. -12/01 CT abdomen/pelvis-generalized anasarca, trace ascites, bilateral pleural effusions right greater than left : -Monitor renal function, I/O's, electrolytes replacement as needed. - Cr: 3.60 today with UO: 1700ml in 24 hrs -on Albumin 25gms Q12, Bumex 2mg IV BID. Renal is following- Dr. Zuniga -On Free water 250ml Q6 monitor sodium level. ID: -Continue abx per ID ( Rocephin, Zithromax) monitor for signs of infections ( Fever, WBC) -Urine culture 11/18/16 with Brionna albicans and E coli NOT S Levaquin, but S to zosyn -Infectious disease Dr. Wen, follow up on sputum cx 11/23: nl resp erica Heme: Monitor CBC, for transfusion 2units PRBC today Endo: --Medium dose sliding scale regimen Proph: Subcutaneous heparin on hold secondary to thrombocytopenia, anemia and possible GI bleed. SCDs for DVT prophylaxis Protonix for GI prophylaxis -Palliative care is following IV access: Peripheral IV's, Level 3 Physician Aysha Raymundo MD Dec 02, 2016 11:05
--- NOTE | 2016-12-02 11:28 | HHI.NPPN ---
Subjective History of Present Illness 86 year old with CVA, Resp failure s/p Trach/ PEG Additional Remarks Remains intubated, planned EGD today Review of Systems General Constitutional: Fatigue Objective Data Data 12/01/16 12/02/16 19:00 07:00 Intake Total 604 ml 342 ml Output Total 700 ml 1550 ml Balance -96 ml -1208 ml IV Total 0 ml 242 ml Tube Feeding 0 ml Albumin 100 ml 100 ml Packed Cells 304 ml Other 200 ml Output Urine Total 500 ml 1025 ml Stool Total 200 ml 525 ml Vital Signs Date Time Temp Pulse Resp B/P Pulse Ox O2 Delivery O2 Flow Rate FiO2 12/02/16 10:13 100 40 12/02/16 10:00 65 12/02/16 08:00 96.6 66 15 107/50 100 12/02/16 08:00 40 12/02/16 08:00 66 12/02/16 07:57 99 40 12/02/16 06:00 61 12/02/16 04:08 100 40 12/02/16 04:00 97.4 69 15 127/55 99 12/02/16 04:00 61 12/02/16 04:00 40 12/02/16 02:00 61 12/02/16 00:00 97.4 61 15 134/73 99 12/02/16 00:00 40 12/01/16 23:44 99 40 12/01/16 21:11 99 40 12/01/16 20:00 97.4 63 15 111/56 99 12/01/16 20:00 40 12/01/16 16:04 99 40 12/01/16 16:00 40 12/01/16 16:00 60 12/01/16 16:00 97.4 60 15 112/54 99 12/01/16 14:00 63 12/01/16 13:26 99 100 12/01/16 12:00 97.5 66 15 108/49 100 12/01/16 12:00 66 12/01/16 12:00 30 12/01/16 11:58 99 40 -: 12/02/16 0330 12/02/16 0330 Physical Exam General Appearance: Pale Pulmonary Resp Exam: Decreased Bases Cardiology CV Exam: Regular Gastrointestinal/Abdomen GI Exam: Soft, Non-Tender Extremeties Extremities Exam: Moderate Edema Assessment/Plan Problem List: (1) Acute renal failure Plan: Patient has multiple issues and has malnutrition with poor albumin contributing to low oncotic pressure, ATN creatinine stable: 3.6 -> 3.5 On Bumex 2 mg IV q12 - continue for now no meaningful recovery from CVA palliative care following follow BMP Anemia with transfusion yesterday - possible GI bleed, for EGD today (2) Metabolic acidosis Plan: will follow (3) Pneumonia Plan: On Ceftriaxone/Fluconazole (4) Urinary tract infection Plan: Escherichia coli she is on Ceftriaxone (5) CVA (cerebral vascular accident) Plan: Massive stroke neurology following (6) Rhabdomyolysis Plan: This resolved (7) Hypernatremia Plan: Will replace free water with D5W at 50cc/hour x 1 liter, continue to monitor. Problem Qualifiers (1) Acute renal failure: Qualified Code: N17.9 - Acute renal failure, unspecified acute renal failure type (2) CVA (cerebral vascular accident): Qualified Code: I63.9 - Cerebrovascular accident (CVA), unspecified mechanism (3) Rhabdomyolysis: Qualified Code: M62.82 - Non-traumatic rhabdomyolysis River Tinajero MD Dec 02, 2016 11:28
[2016-12-02] MEDS ORDERED: DEXTROSE 5% IN WATE 1000ML INJ 1,000 ML IV SCH (11:30)
[2016-12-02] MEDS: FREE WATER G-TUBE SCH ×2 (11:31→17:54)
[2016-12-02 11:42] LABS: APTT (PATIENT) 43.5 SEC (24.3-30.1); INTERNATIONAL NORMALIZED RATIO 1.4 RATIO; PROTHROMBIN TIME - PATIENT 15.3 SEC (9.8-11.6)
[2016-12-02] MEDS ORDERED: PROPOFOL 1000 MG/100 ML INJ 100 ML ONE (18:31)
--- NOTE | 2016-12-02 22:02 | HHI.GIFU ---
Subjective Remarks patient is not responsive, intubated, Objective Vitals I&O Vital Signs Date Time Temp Pulse Resp B/P Pulse Ox O2 Delivery O2 Flow Rate FiO2 12/02/16 18:00 65 12/02/16 16:00 40 12/02/16 16:00 67 12/02/16 16:00 97.5 67 15 107/52 99 12/02/16 15:35 99 40 12/02/16 14:00 62 12/02/16 12:00 64 12/02/16 12:00 97.6 64 15 102/47 100 12/02/16 12:00 40 12/02/16 10:13 100 40 12/02/16 10:00 65 12/02/16 08:00 96.6 66 15 107/50 100 12/02/16 08:00 40 12/02/16 08:00 66 12/02/16 07:57 99 40 12/02/16 06:00 61 12/02/16 04:08 100 40 12/02/16 04:00 97.4 69 15 127/55 99 12/02/16 04:00 61 12/02/16 04:00 40 12/02/16 02:00 61 12/02/16 00:00 97.4 61 15 134/73 99 12/02/16 00:00 40 12/01/16 23:44 99 40 I/O 12/01/16 12/01/16 12/01/16 12/02/16 12/02/16 12/02/16 07:00 15:00 23:00 07:00 15:00 23:00 Intake Total 2704 ml 604 ml 127 ml 215 ml 646 ml Output Total 1100 ml 700 ml 750 ml 800 ml 1075 ml Balance 1604 ml -96 ml -623 ml -585 ml -429 ml IV Total 2054 ml 0 ml 127 ml 115 ml 176 ml Tube Feeding 0 ml Albumin 100 ml 100 ml 100 ml 100 ml Packed Cells 300 ml 304 ml Tube Irrigant 120 ml Other 250 ml 200 ml 250 ml Output Urine Total 500 ml 500 ml 475 ml 550 ml 875 ml Stool Total 600 ml 200 ml 275 ml 250 ml 200 ml Laboratory Laboratory Tests Test 12/02/16 12/02/16 03:30 11:23 White Blood Count 5.0 Red Blood Count 2.55 Hemoglobin 7.4 Hematocrit 22.0 Mean Corpuscular Volume 86.1 Mean Corpuscular Hemoglobin 28.9 Mean Corpuscular Hemoglobin 33.6 Concent Red Cell Distribution Width 17.9 Platelet Count 56 Mean Platelet Volume 8.9 Neutrophils (%) (Auto) 71.0 Lymphocytes (%) (Auto) 7.9 Monocytes (%) (Auto) 10.8 Eosinophils (%) (Auto) 10.1 Basophils (%) (Auto) 0.2 Neutrophils # (Auto) 3.5 Lymphocytes # (Auto) 0.4 Monocytes # (Auto) 0.5 Eosinophils # (Auto) 0.5 Basophils # (Auto) 0.0 CBC Comment AUTO DIFF Differential Total Cells 100 Counted Neutrophils % (Manual) 51 Band Neutrophils % 24 Lymphocytes % 12 Monocytes % 4 Eosinophils % 8 Basophils % 1 Neutrophils # (Manual) 3.8 Differential Comment FINAL DIFF MANUAL Platelet Estimate LOW Platelet Morphology Comment NORMAL Acanthocytes OCC Sodium Level 150 Potassium Level 3.3 Chloride Level 114 Carbon Dioxide Level 24.5 Anion Gap 12 Blood Urea Nitrogen 81 Creatinine 3.51 Estimat Glomerular Filtration 12 Rate Random Glucose 113 Calcium Level 8.1 Total Bilirubin 0.5 Aspartate Amino Transf 25 (AST/SGOT) Alanine Aminotransferase 6 (ALT/SGPT) Alkaline Phosphatase 60 Total Protein 4.9 Albumin 2.8 Prothrombin Time 15.3 Prothromb Time International 1.4 Ratio Activated Partial 43.5 Thromboplast Time Date/Time Procedure Status Source Growth 12/01/16 08:35 Stool Occult Blood ([facility]) - Final Complete Stool Stool HEMOCCULT POSITIVE Physical Exam HEENT: Normocephalic; atraumatic; no jaundice. CHEST: CTA, diminished CARDIAC: RRR ABDOMEN: Soft, nondistended, no hepatosplenomegaly; bowel sounds are present in all four quadrants. PEG tube- aspirated some coffee ground gastric secretions from peg tube. Melena noted in bag. EXTREMITIES: Generalized edema. SKIN: Generalized pallor RECREATION ADVISER: Sedated on vent Assessment and Plan Plan ASSESSMENT: - Reconsulted for anemia with drop in hgb. H/H went from 8.9/27.1 to 5.8/17.8. Repeat 6.5/19.7. Aspirated coffee ground gastric secretions from PEG tube. Melena is in bag. Protonix Gtt. Monitor HH. Plan for rpt. EGD in am. - Dysphagia, FEN. Pt currently in ICU being treated for massive posterior circulation ischemic CVA and she remains in the ICU being treated for hypoxic respiratory failure, severe encephalopathy secondary to stroke, severe sepsis, HCAP with pleural effusion, and acute kidney injury. She is S/P tracheostomy. S/P EGD (11/24/16)----> 1. There was mild gastritis in the gastric antrum; Edematous; multiple biopsies were performed 2. Benign nodule in the antrum this was biopsied 3. Insufflation was performed in the stomach to assess for indentation and transillumination for PEG placement I was unable to obtain good transillumination and indentation and the abdomen was somewhat tight and as such the PEG placement was aborted. 4. Retroflexed views revealed no abnormalities. Had PEG tube placement by IR on 11/27. 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 - poor prognosis Aguila Farnsworth MD Dec 02, 2016 22:02
[2016-12-03] VITALS (19 sets, daily range): BP systolic 96–130; BP diastolic 47–63; PULSE 51–77; RESP 15–20; TEMP 94.5–98; O2SAT 96–100
[2016-12-03] MEDS: CHLORHEXIDINE GLUCONATE 2 % 1 PACK (2 CLOTHS) TOP SCH (04:00)
[2016-12-03] MEDS: HIGH DOSE INSULIN NOVOLIN REGULAR SUPPLEMENTAL SCALE SQ SCH ×7 (04:00→23:16)
[2016-12-03] MEDS: ALBUMIN HUMAN 25% 25 GM/100 ML BAGP IV SCH ×2 (04:03→15:16)
[2016-12-03] MEDS: FREE WATER G-TUBE SCH ×5 (05:38→23:16)
[2016-12-03 05:48] LABS: BICARBONATE 21.4 MEQ/L (21.0-32.0); POTASSIUM 3.9 MEQ/L (3.5-5.1)
--- NOTE | 2016-12-03 06:32 | RADRPT ---
EXAM DATE/TIME: 12/03/2016 04:59 [facility] COMPARISON: CT THORAX W/O CONTRAST, December 01, 2016, 13:09. CHEST SINGLE AP, December 02, 2016, 10:19. INDICATIONS : Shortness of breath, possible pulmonary disease. MEDICAL HISTORY : Cerebrovascular disease. SURGICAL HISTORY : None. ENCOUNTER: Subsequent ACUITY: 4 - 6 days PAIN SCORE: Non-responsive. LOCATION: Bilateral chest FINDINGS: Tracheostomy tube is well placed. The heart size is borderline enlarged. Lungs demonstrate diffuse co nsolidation. There is silhouetting of the left hemidiaphragm. CONCLUSION: Borderline cardiomegaly with diffuse consolidation which are clearly worse likely representing CHF. S ome degree of left effusion needs to be considered. Jeffery Zhong MD on December 03, 2016 at 6:29 Board Certified Radiologist. This report was verified electronically.
[2016-12-03] MEDS: ARTIFICIAL TEARS OPTH SOLN 15 ML BTL EACH EYE SCH ×3 (07:54→17:50)
[2016-12-03] MEDS: BUMETANIDE INJ 1 MG/4 ML VIAL IV PUSH SCH ×3 (07:54→17:54)
[2016-12-03 08:02] LABS: AUTOMATED NEUTROPHIL # 2.9 TH/MM3 (1.8-7.7); BASOPHIL % 0.4 % (0.0-2.0); EOSINOPHIL # 0.5 TH/MM3 (0-0.4); EOSINOPHIL % 12.2 % (0.0-4.0); LYMPH % 12.3 % (9.0-44.0); LYMPHOCYTE # 0.5 TH/MM3 (1.0-4.8); MEAN CELL VOLUME 85.3 FL (80.0-100.0); MEAN CORPUSCULAR HEMOGLOBIN 28.8 PG (27.0-34.0); MEAN CORPUSCULAR HGB CONC 33.8 % (32.0-36.0); NEUT % 67.1 % (16.0-70.0); PLATELET COUNT 38 TH/MM3 (150-450); RED BLOOD COUNT 2.11 MIL/MM3 (4.00-5.30); RED CELL DISTRIBUTION WIDTH 16.9 % (11.6-17.2); WHITE BLOOD COUNT 4.3 TH/MM3 (4.0-11.0)
[2016-12-03 08:07] LABS: HEMO FLAGS AUTO DIFF
[2016-12-03] MEDS: FERROUS SULFATE 300 MG /5ML UDC PO SCH ×2 (09:10→20:20)
[2016-12-03] MEDS: SODIUM CHLORIDE 0.9% FLUSH 5 ML FLUSH IV FLUSH SCH ×2 (09:11→20:20)
[2016-12-03] MEDS: CHLORHEXIDINE 0.12% (ORAL KIT) 15 ML CUP MT SCH ×2 (09:11→20:21)
[2016-12-03 09:21] LABS: BANDS 10 % (0-6); EOSINOPHILS 11 % (0-4); MYELOCYTES 1 % (0-0); NEUTROPHIL # MANUAL DIFF 2.7 TH/MM3 (1.8-7.7); POLYS (SEG NEUTROPHILS) 52 % (16-70); WBC DIFF SAMPLE 100
[2016-12-03 09:22] LABS: PLATELET ESTIMATE SMEAR LOW (NORMAL); PLATELET MORPHOLOGY NORMAL (NORMAL); SCAN/DIFF FINAL DIFF MANUAL
--- NOTE | 2016-12-03 09:57 | HHI.NPPN ---
Subjective History of Present Illness 86 year old with CVA, Resp failure s/p Trach/ PEG Additional Remarks Remains intubated, ongoing anemia. Review of Systems General Constitutional: Fatigue Objective Data Data 12/02/16 12/03/16 19:00 07:00 Intake Total 646 ml 1621 ml Output Total 1075 ml 1000 ml Balance -429 ml 621 ml IV Total 176 ml 901 ml Albumin 100 ml 100 ml Tube Irrigant 120 ml 120 ml Other 250 ml 500 ml Output Urine Total 875 ml 950 ml Stool Total 200 ml 50 ml Vital Signs Date Time Temp Pulse Resp B/P Pulse Ox O2 Delivery O2 Flow Rate FiO2 12/03/16 09:00 40 12/03/16 08:20 99 40 12/03/16 08:20 40 12/03/16 08:00 40 12/03/16 08:00 51 12/03/16 08:00 96.5 51 17 96/47 100 12/03/16 06:00 55 12/03/16 04:27 100 40 12/03/16 04:00 63 12/03/16 04:00 97.8 63 16 130/63 100 12/03/16 04:00 40 12/03/16 02:00 59 12/03/16 00:15 99 40 12/03/16 00:00 40 12/03/16 00:00 61 12/03/16 00:00 98.0 61 15 111/54 99 12/02/16 23:01 98 40 12/02/16 22:00 64 12/02/16 20:00 63 12/02/16 20:00 97.9 63 17 144/64 99 12/02/16 20:00 40 12/02/16 18:00 65 12/02/16 16:00 40 12/02/16 16:00 67 12/02/16 16:00 97.5 67 15 107/52 99 12/02/16 15:35 99 40 12/02/16 14:00 62 12/02/16 12:00 64 12/02/16 12:00 97.6 64 15 102/47 100 12/02/16 12:00 40 12/02/16 10:13 100 40 12/02/16 10:00 65 -: 12/03/16 0359 12/03/16 0359 Physical Exam General Appearance: Pale Pulmonary Resp Exam: Decreased Bases Cardiology CV Exam: Regular Gastrointestinal/Abdomen GI Exam: Soft, Non-Tender Extremeties Extremities Exam: Moderate Edema Assessment/Plan Problem List: (1) Acute renal failure Plan: Patient has multiple issues and has malnutrition with poor albumin contributing to low oncotic pressure, ATN creatinine stable: 3.6 -> 3.5 -> 3.5 On Bumex 2 mg IV q12 - continue for now. Good UOP with 1.8KL/ 24 hours no meaningful recovery from CVA at this point Palliative care following. Apparently son would like to fly her to [facility] for stem cell treatment. Continue to follow goals of care. 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 Ongoing anemia, continue to monitor. (2) Metabolic acidosis Plan: Stable, continue to monitor (3) Pneumonia Plan: On Ceftriaxone/Fluconazole (4) Urinary tract infection Plan: Escherichia coli she is on Ceftriaxone (5) CVA (cerebral vascular accident) Plan: Massive stroke neurology following (6) Rhabdomyolysis Plan: This resolved (7) Hypernatremia Plan: Given 1L of DW yesterday at 50cc/hour, Na improved. Continue to monitor, repeat as necessary Problem Qualifiers (1) Acute renal failure: Qualified Code: N17.9 - Acute renal failure, unspecified acute renal failure type (2) CVA (cerebral vascular accident): Qualified Code: I63.9 - Cerebrovascular accident (CVA), unspecified mechanism (3) Rhabdomyolysis: Qualified Code: M62.82 - Non-traumatic rhabdomyolysis River Tinajero MD Dec 03, 2016 09:56
[2016-12-03] MEDS: PANTOPRAZOLE INJ 80 MG in SODIUM CHLORIDE 0.9% INJ 100 ML IV SCH ×2 (10:27→20:15)
--- NOTE | 2016-12-03 11:30 | HHI.GIFU ---
Subjective Remarks Pt on vent (Danielle Gilliland) Objective Vitals I&O Vital Signs Date Time Temp Pulse Resp B/P Pulse Ox O2 Delivery O2 Flow Rate FiO2 12/03/16 10:37 100 40 12/03/16 10:00 55 12/03/16 09:00 40 12/03/16 08:20 99 40 12/03/16 08:20 40 12/03/16 08:00 40 12/03/16 08:00 51 12/03/16 08:00 96.5 51 17 96/47 100 12/03/16 06:00 55 12/03/16 04:27 100 40 12/03/16 04:00 63 12/03/16 04:00 97.8 63 16 130/63 100 12/03/16 04:00 40 12/03/16 02:00 59 12/03/16 00:15 99 40 12/03/16 00:00 40 12/03/16 00:00 61 12/03/16 00:00 98.0 61 15 111/54 99 12/02/16 23:01 98 40 12/02/16 22:00 64 12/02/16 20:00 63 12/02/16 20:00 97.9 63 17 144/64 99 12/02/16 20:00 40 12/02/16 18:00 65 12/02/16 16:00 40 12/02/16 16:00 67 12/02/16 16:00 97.5 67 15 107/52 99 12/02/16 15:35 99 40 12/02/16 14:00 62 12/02/16 12:00 64 12/02/16 12:00 97.6 64 15 102/47 100 12/02/16 12:00 40 I/O 12/02/16 12/02/16 12/02/16 12/03/16 12/03/16 12/03/16 07:00 15:00 23:00 07:00 15:00 23:00 Intake Total 215 ml 646 ml 520 ml 1101 ml Output Total 800 ml 1075 ml 600 ml 400 ml Balance -585 ml -429 ml -80 ml 701 ml IV Total 115 ml 176 ml 460 ml 441 ml Albumin 100 ml 100 ml 100 ml Tube Irrigant 120 ml 60 ml 60 ml Other 250 ml 500 ml Output Urine Total 550 ml 875 ml 550 ml 400 ml Stool Total 250 ml 200 ml 50 ml 0 ml Laboratory Laboratory Tests Test 12/02/16 12/03/16 12/03/16 11:23 03:59 08:50 Prothrombin Time 15.3 Prothromb Time International 1.4 Ratio Activated Partial 43.5 Thromboplast Time White Blood Count 4.3 Red Blood Count 2.11 Hemoglobin 6.1 Hematocrit 18.0 Mean Corpuscular Volume 85.3 Mean Corpuscular Hemoglobin 28.8 Mean Corpuscular Hemoglobin 33.8 Concent Red Cell Distribution Width 16.9 Platelet Count 38 Mean Platelet Volume 9.3 Neutrophils (%) (Auto) 67.1 Lymphocytes (%) (Auto) 12.3 Monocytes (%) (Auto) 8.0 Eosinophils (%) (Auto) 12.2 Basophils (%) (Auto) 0.4 Neutrophils # (Auto) 2.9 Lymphocytes # (Auto) 0.5 Monocytes # (Auto) 0.3 Eosinophils # (Auto) 0.5 Basophils # (Auto) 0.0 CBC Comment AUTO DIFF Differential Total Cells 100 Counted Neutrophils % (Manual) 52 Band Neutrophils % 10 Lymphocytes % 15 Monocytes % 11 Eosinophils % 11 Neutrophils # (Manual) 2.7 Myelocytes 1 Differential Comment FINAL DIFF MANUAL Platelet Estimate LOW Platelet Morphology Comment NORMAL Polychromasia 2.0 Hematology Comments Sodium Level 144 Potassium Level 3.9 Chloride Level 111 Carbon Dioxide Level 21.4 Anion Gap 12 Blood Urea Nitrogen 82 Creatinine 3.54 Estimat Glomerular Filtration 12 Rate Random Glucose 129 Calcium Level 7.7 Phosphorus Level 3.6 Magnesium Level 2.0 Blood Type O POSITIVE Crossmatch Leukocyte-Reduced Red Blood Cells Blood Bank Comment Date/Time Procedure Status Source Growth 12/01/16 08:35 Stool Occult Blood ([facility]) - Final Complete Stool Stool HEMOCCULT POSITIVE Imaging Last Impressions Chest X-Ray 12/03/16 0600 Signed Impressions: Service Date/Time: Saturday, December 03, 2016 04:59 - CONCLUSION: Borderline cardiomegaly with diffuse consolidation which are clearly worse likely representing CHF. Some degree of left effusion needs to be considered. Jeffery Zhong MD Thoracentesis 12/01/16 0000 Signed Impressions: Service Date/Time: Thursday, December 01, 2016 18:56 - CONCLUSION: Uncomplicated CT-guided thoracentesis. Jeffery Alvarado MD Chest CT 12/01/16 0000 Signed Impressions: Service Date/Time: Thursday, December 01, 2016 13:09 - CONCLUSION: Bilateral pleural effusion, larger on the right than the left. Mack Cao MD FACR Abdomen Ultrasound 11/27/16 0000 Signed Impressions: Service Date/Time: Sunday, November 27, 2016 08:35 - CONCLUSION: Stone in the neck of the gallbladder. Trace ascites and mild splenomegaly Jeffery Alvarado MD Gastrostomy Tube Placement 11/24/16 0000 Signed Impressions: Service Date/Time: Sunday, November 27, 2016 14:34 - CONCLUSION: Uncomplicated gastrostomy tube placement as above. Kirit Alcantar MD Head CT 11/08/16 1657 Signed Impressions: Service Date/Time: Tuesday, November 08, 2016 17:06 - CONCLUSION: Low density seen throughout the posterior circulation regions including the susan and midbrain, cerebellar hemispheres, occipital and posterior medial temporal lobes and right thalamus. This likely represents areas of infarction involving the posterior territory circulation. Jeffery Zhong MD Carotid Artery Ultrasound 11/08/16 0000 Signed Impressions: Service Date/Time: Tuesday, November 08, 2016 22:24 - CONCLUSION: Mild calcified plaque at the carotid bulbs. No evidence of hemodynamically significant carotid stenosis. José Luis Beltran MD Physical Exam HEENT: Normocephalic; atraumatic; no jaundice. CHEST: CTA, diminished CARDIAC: RRR ABDOMEN: Soft, nondistended, no hepatosplenomegaly; bowel sounds are present in all four quadrants. Liquid maroon stool noted in rectal bag. EXTREMITIES: Generalized edema. SKIN: Generalized pallor FUR REPAIRER: Sedated on vent (Danielle Gilliland LINOLEUM TILE LAYER) Assessment and Plan Plan ASSESSMENT: - Reconsulted for anemia with drop in hgb. H/H went from 8.9/27.1 to 5.8/17.8. 4-9-17 6.1/18.0, receiving PRBC. Melena is in bag. Protonix Gtt. Monitor HH. - Dysphagia, FEN. Pt currently in ICU being treated for massive posterior circulation ischemic CVA and she remains in the ICU being treated for hypoxic respiratory failure, severe encephalopathy secondary to stroke, severe sepsis, HCAP with pleural effusion, and acute kidney injury. She is S/P tracheostomy. Had PEG tube placement by IR on 11/27. - stroke no improvement - GIB, 12/02/16 ----> per Dr. 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 ( Aguila Farnsworth MD) Danielle Gilliland Dec 03, 2016 11:30 Aguila Farnsworth MD Dec 03, 2016 13:08
--- NOTE | 2016-12-03 13:41 | HHI.CCPN ---
Subjective Remarks/Hospital Course This is an 86yF with per report no other past medical history who presented to the ER after she was found unresponsive in her bed. According to ER reports, her family saw her normal last night when she had a fall, with unknown LOC. At that point, he helped her back to bed. However, this morning she did not wake up. On arrival to the ER, she was unresponsive only withdrawing to pain. she was intubated for airway protection and a poor GCS. CT head demonstrated massive posterior-circulation ischemic stroke. The patient is currently intubated and unresponsive and cannot provide any additional history. 11/09: No acute changes overnight. Palliative care team has consult with the family regarding goals of care. Currently the patient's sedation fentanyl infusion has been turned off without any response from patient. The patient notably does withdrawal to pain. 11/10: No change in neurological status. [id number]. The patient withdraws to pain 4 extremities. The patient currently on no sedation, fentanyl infusion discontinued yesterday. Tube feeds were initiated. The patient's urine culture grew back Escherichia coli, the patient was started on antibiotics. Extensive discussion with son regarding patient's neurological status, son Wyatt has had extensive discussion with palliative care.The son feels that yesterday when the patient was spoken to in Ukrainian the patient squeezed his hand and desires aggressive treatment. The patient's neuro status is unchanged, totally unresponsive with occasional reflexive twitching of feet B/L. Follow-up with neurology Dr. Pack, guarding any further imaging studies. 11/13: No change in neuro exam. Palliative care following. Family wanting full aggressive care. Palliative care will address early trach PEG 11/14: No improvement in neuro status. Son has not made decisions regarding trach and PEG. Apparently he wants to wait longer to see any improvement 11/15: Remains unresponsive. Neuro exam with extensor posturing-unchanged. Son requesting aggressive care. Continues to have low-grade fever 11/16: Clinically no improvement. Tolerates CPAP. Unable to extubate as patient will not protect airway 11/17: Tolerating C Pap but no change in neuro exam. Hemoglobin noted to be 6.8 hemodynamically stable 11/18: Became tachycardic and hypotensive early a.m., placed on assist control. Otherwise neuro exam remains unchanged 11/19: Continues to spike fever Tmax 102, started on vancomycin and cefepime in addition to Levaquin yesterday. Currently only low-grade fever. Received 2 units of blood for hemoglobin of 5.3. CBC pending at this time. No improvement in neuro exam 11/20: White count is 18.3 today, MAXIMUM TEMPERATURE 103.1. Chest x-ray showing right sided infiltrate. Urine culture with gram-negative rods and Brionna albicans. ID consulted Diflucan added 11/21/16: Tmax 101.5. Bilateral lung infiltrates, R>L but slightly improved. No improvement in neuro exam. ID consulted and following. 11/22/16: No fever. CT chest- moderate to large R pleural effusion, bilateral lung infiltrates. ABX per ID. CXR today shows increasing bilateral infiltrates and effusion right more than left. Almost near complete infiltrates on the right lung [place]. Vaginally worsening creatinine today 1.45 indicating multiorgan failure 11/23/16: Hb 9.8 today after 2U PRBC yesterday. Plan for tracheostomy today. INR normal platelet count 116. Worsening creatinine today is 1.6. UO 550 ml in 24 hours. 1L NS bolus and 75 ml per hour maintenance NS. Started on Dopamine 3 mcg per min to maintain MAP>65 11/24 Patient is on ventilator via trach. Afebrile. On Dopamine 4 mics. 11/25 No acute events overnight. s/p EGD yesterday showed mild gastritis unable to place PEG tube endoscopically. Remains on Dopamine 4 mics. On no sedation unresponsive. 11/26 No acute events overnight. On CPAP with PS 20, PEEP: 5 and FIO2 40%. Afebrile. Off Dopamine. Afebrile. 11/27 Patient remains on ventilator via trach on no drips. Afebrile. For PEG tube placement by IR today. 11/28 Patient s/p PEG tube placement by IR yesterday, s/p Right thoracentesis with removal 700ml CXR showed better aeration of lungs, Hgb 6.7 this morning 2units PRBC ordered. Renal function worse with Cr: 3.40 from 2.85 . 11/29: Remains encephalopathic on mechanical ventilation via tracheostomy. 11/30: Remains encephalopathic on mechanical ventilation via tracheostomy. 12/01 Patient s/p transfusion 1unit PRBC last night for Hgb 5.8 in addition to 2L NS. Hgb 6.5 this morning. 12/02: Afebrile. The patient underwent CT-guided thoracentesis yesterday with approximately 600 cc removed. Chest x-ray pending this a.m.. Patient received packed red blood cell 2 units yesterday. Hemoglobin 7.4. Pending EGD today. 12/03:The patient underwent EGD yesterday with Dr. Farnsworth patient was noted to have a large active bleeding ulcer in the body of the stomach, multiple AVMs. Multiple ablations performed. This a.m. hemoglobin dropped to 6.1, platelet count 38. The patient was transfused 2 PRBC, and a unit of platelets. Patient still not relieved receiving any nutrition will begin PPN today. The patient continues to have copious amounts of melena with fecal incontinence apparatus in place. Objective Vital Signs Date Time Temp Pulse Resp B/P Pulse Ox O2 Delivery O2 Flow Rate FiO2 12/03/16 12:50 100 40 12/03/16 12:00 56 12/03/16 12:00 95.0 17 105/52 Intake and Output 12/02/16 12/02/16 12/03/16 08:00 16:00 00:00 Intake Total 215 ml 646 ml 520 ml Output Total 800 ml 1075 ml 600 ml Balance -585 ml -429 ml -80 ml Result Diagram: 12/03/16 0359 12/03/16 0359 Other Results Microbiology Date/Time Procedure Status Source Growth 12/01/16 08:35 Stool Occult Blood (KIANA) - Final Complete Stool Stool HEMOCCULT POSITIVE Imaging Last Impressions Chest X-Ray 11/27/16 1522 Signed Impressions: Service Date/Time: Sunday, November 27, 2016 15:24 - CONCLUSION: 1. Marked improvement in right lung aeration post thoracentesis. No pneumothorax. 2. Improving bilateral airspace disease. Persistent, small left basilar consolidation/effusion Kirit Alcantar MD Thoracentesis 11/27/16 0000 Signed Impressions: Service Date/Time: Sunday, November 27, 2016 14:18 - CONCLUSION: Uncomplicated ultrasound guided thoracentesis. Kirit Alcantar MD Abdomen Ultrasound 11/27/16 0000 Signed Impressions: Service Date/Time: Sunday, November 27, 2016 08:35 - CONCLUSION: Stone in the neck of the gallbladder. Trace ascites and mild splenomegaly Jeffery Alvarado MD Gastrostomy Tube Placement 11/24/16 0000 Signed Impressions: Service Date/Time: Sunday, November 27, 2016 14:34 - CONCLUSION: Uncomplicated gastrostomy tube placement as above. Kirit Alcantar MD Chest CT 11/21/16 0000 Signed Impressions: Service Date/Time: Monday, November 21, 2016 22:57 - CONCLUSION: 1. Moderate size right pleural effusion and small left pleural effusion. Right effusion has increased over the last day compared with a recent chest radiograph. 2. Bilateral lung consolidation as above. Differential diagnosis includes pneumonia and aspiration. Emeterio Freire MD Head CT 11/08/16 1657 Signed Impressions: Service Date/Time: Tuesday, November 08, 2016 17:06 - CONCLUSION: Low density seen throughout the posterior circulation regions including the susan and midbrain, cerebellar hemispheres, occipital and posterior medial temporal lobes and right thalamus. This likely represents areas of infarction involving the posterior territory circulation. Jeffery Zhong MD Carotid Artery Ultrasound 11/08/16 0000 Signed Impressions: Service Date/Time: Tuesday, November 08, 2016 22:24 - CONCLUSION: Mild calcified plaque at the carotid bulbs. No evidence of hemodynamically significant carotid stenosis. José Luis Beltran MD Objective Remarks GENERAL: Patient is 86 yo on ventilator via trach. SKIN: Warm and dry. HEAD: Normocephalic. EYES: No scleral icterus. No injection or drainage. Corneal reflex intact NECK: Supple, trachea midline. No JVD or lymphadenopathy. CARDIOVASCULAR: Regular rate and rhythm without murmurs, gallops, or rubs. RESPIRATORY: Breath sounds equal bilaterally. Few coarse BS. 8.0 trach in situ GASTROINTESTINAL: Abdomen soft, non-tender, nondistended. PEG in place MUSCULOSKELETAL: No cyanosis, or edema. Neuro: Positive corneal reflex. LIDYA. Negative cough. Negative gag. Extensor posturing in uppers. Downgoing Babinski. 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 She was last seen normal, nearly 24 hours, she was not a candidate for any interventional therapy. Unfortunately, given her age, and the extent of the stroke, her prognosis for any reasonable neurologic function is quite poor, and I do not think that we will be able to improve her outcome at all. Active GI bleed discussed with family, and patient's poor prognosis. Her family continues to express wishes for aggressive medical management. Active problems: Massive posterior circulation ischemic CVA Hypoxic and hypercarbic respiratory failure Severe encephalopathy secondary to stroke Severe sepsis Healthcare associated pneumonia with pleural effusion Acute kidney injury UTI Anemia-acute and chronic Hyperglycemia of critical illness Thrombocytopenia Active GI bleed with AVM's Plan Neuro: On no sedation Monitor neuro status and avoid sedatives. Neuro is following -11/08 CT brain: Low density seen throughout the posterior circulation regions including the susan and midbrain, cerebellar hemispheres, occipital and posterior medial temporal lobes and right thalamus. This likely represents areas of infarction involving the posterior territory circulation -GCS 3T, no change Resp: -Continue with vent support keep sat >92% Vent bundle, Head of bed 30, bronchodilators -s/p trach 11/23, pulm toilet, trach care -SBT daily as lia -s/p CT guided right thoracentesis 11/27 with removal 700ml clear fluid. -12/02 CXR-pulmonary edema, stable CHF, no pneumothorax, pleural effusions CVS: Monitor HR and BP keep MAP>65mmhg 2-D echo -EF 5560 %, mild aortic mitral and tricuspid regurgitation, No RWMA. Carotid ultrasound-no stenosis GI: -s/p PEG tube placement by IR 11/27 , TF held (Jevity 1.5 with goal rate 45 ml/hr ) secondary to GI bleeding -s/p EGD 11/24 showed mild gastritis unable to place PEG tube endoscopically. -Monitor LFT's, US abdomen: Stone in neck of gall bladder, no hydronephrosis -s/p transfusion 1unit PRBC last night will transfuse 2units PRBC 12/01. -12/01 CT abdomen/pelvis-generalized anasarca, trace ascites, bilateral pleural effusions right greater than left -Large gastric ulcer with active bleeding, active melena Protonix infusion continued -IR consulted for possible intervention regarding AVNs and gastric ulcer : -Monitor renal function, I/O's, electrolytes replacement as needed. - Cr: 3.54 today -on Albumin 25gms Q12, Bumex 2mg IV BID. Renal is following- Dr. Zuniga -On Free water 250ml Q6 monitor sodium level. ID: -Continue abx per ID ( Rocephin, Zithromax) monitor for signs of infections ( Fever, WBC) -Urine culture 11/18/16 with Brionna albicans and E coli NOT S Levaquin, but S to zosyn -Infectious disease Dr. Wen, follow up on sputum cx 11/23: nl resp erica Heme: Monitor CBC, for transfusion 2 units PRBC today, and platelets Obtain INR Endo: --Medium dose sliding scale regimen Proph: Subcutaneous heparin on hold since 11/23 secondary to thrombocytopenia, anemia and GI bleed. SCDs for DVT prophylaxis Protonix for GI prophylaxis -Palliative care is following IV access: Peripheral IV's, Level 3 Physician Aysha Raymundo MD Dec 03, 2016 13:41
--- NOTE | 2016-12-03 15:09 | HHI.HCPN ---
Patient's son called the palliative care team and left a message stating he wanted the patient to be a FULL CODE. He has spoken with many family members, especially the patient's sister, and all agree. They want to keep her alive until doctors at [facility] or at another facility will be able to perform stem cell transplants to make her better. He wants her kept alive until the science catches up and until he can try additional alternative treatments to help her. He says, "I know many of the doctors think this is crazy but this is what we all want." "As long as she is alive, there is a chance she can benefit from some of the new treatments." He goes on to say, "If I let her , I think my aunt might not ever forgive me and she is likely to too." PLAN: 1) Code status changed back to FULL CODE 2) Telephoned primary nurse -- Leonora -- to notify her. 3) Palliative care will continue to speak with son. Unfortunately, it is very likely that this patient will under go a "code " in the ICU. . Karlos Bauer MD Dec 03, 2016 15:09
[2016-12-03 17:29] LABS: INDIRECT BILIRUBIN 0.2 MG/DL (0.0-0.8); TOTAL BILIRUBIN ADULT 0.4 MG/DL (0.2-1.0)
[2016-12-03 17:33] LABS: HEMATOCRIT 22.5 % (35.0-46.0); MEAN CELL VOLUME 87.1 FL (80.0-100.0); MEAN CORPUSCULAR HEMOGLOBIN 28.9 PG (27.0-34.0); MEAN CORPUSCULAR HGB CONC 33.1 % (32.0-36.0); PLATELET COUNT 32 TH/MM3 (150-450); RED BLOOD COUNT 2.58 MIL/MM3 (4.00-5.30); RED CELL DISTRIBUTION WIDTH 16.1 % (11.6-17.2); WHITE BLOOD COUNT 4.3 TH/MM3 (4.0-11.0)
[2016-12-03 17:49] LABS: REVIEW FLAG AUTO DIFF
[2016-12-03 18:42] LABS: PROTHROMBIN TIME - PATIENT 166.4 SEC (9.8-11.6)
[2016-12-03 18:45] LABS: INTERNATIONAL NORMALIZED RATIO 13.5 RATIO
[2016-12-03] MEDS ORDERED: PROTHROMBIN COMPLEX CONC INJ 1,500 UNITS in SYRINGE/BAG 1 EA IV ONE (19:15)
[2016-12-03] MEDS: FAT EMULSION 20% INJ 250 ML (@10 mls/hr) IV SCH (20:16)
[2016-12-03] MEDS: CLINIMIX 4.25/5 (Cust.Renal Periph) 1000 mL- </= 42 mls/hr IV SCH ×8 (20:16)
[2016-12-04] VITALS (18 sets, daily range): BP systolic 106–155; BP diastolic 49–66; PULSE 74–85; RESP 15–19; TEMP 97.6–99.6; O2SAT 98–100
[2016-12-04] MEDS: ALBUMIN HUMAN 25% 25 GM/100 ML BAGP IV SCH ×2 (03:56→16:34)
[2016-12-04] MEDS: HIGH DOSE INSULIN NOVOLIN REGULAR SUPPLEMENTAL SCALE SQ SCH ×5 (04:00→20:04)
[2016-12-04] MEDS: CHLORHEXIDINE GLUCONATE 2 % 1 PACK (2 CLOTHS) TOP SCH (04:00)
[2016-12-04 04:53] LABS: AUTOMATED NEUTROPHIL # 3.2 TH/MM3 (1.8-7.7); BASOPHIL % 0.4 % (0.0-2.0); EOSINOPHIL # 0.5 TH/MM3 (0-0.4); EOSINOPHIL % 10.8 % (0.0-4.0); HEMATOCRIT 23.2 % (35.0-46.0); LYMPH % 12.7 % (9.0-44.0); LYMPHOCYTE # 0.6 TH/MM3 (1.0-4.8); MEAN CELL VOLUME 86.6 FL (80.0-100.0); MEAN CORPUSCULAR HEMOGLOBIN 28.9 PG (27.0-34.0); MEAN CORPUSCULAR HGB CONC 33.3 % (32.0-36.0); MONO % 7.5 % (0.0-8.0); NEUT % 68.6 % (16.0-70.0); PLATELET COUNT 55 TH/MM3 (150-450); RED BLOOD COUNT 2.68 MIL/MM3 (4.00-5.30); RED CELL DISTRIBUTION WIDTH 16.5 % (11.6-17.2); WHITE BLOOD COUNT 4.6 TH/MM3 (4.0-11.0)
[2016-12-04 04:57] LABS: HEMO FLAGS AUTO DIFF; INTERNATIONAL NORMALIZED RATIO 1.3 RATIO; PROTHROMBIN TIME - PATIENT 14.3 SEC (9.8-11.6)
[2016-12-04 05:17] LABS: BICARBONATE 24.6 MEQ/L (21.0-32.0); MAGNESIUM 1.8 MG/DL (1.5-2.5); POTASSIUM 4.1 MEQ/L (3.5-5.1)
[2016-12-04] MEDS: FREE WATER G-TUBE SCH ×3 (05:49→16:34)
[2016-12-04] MEDS: PANTOPRAZOLE INJ 80 MG in SODIUM CHLORIDE 0.9% INJ 100 ML IV SCH ×2 (05:49→17:01)
[2016-12-04 07:46] LABS: BANDS 15 % (0-6); BASOPHILS 1 % (0-2); CORRECTED NUCLEATED RBC 2 /100 WBC (0-0); EOSINOPHILS 12 % (0-4); METAMYELOCYTES 1 % (0-1); NEUTROPHIL # MANUAL DIFF 3.4 TH/MM3 (1.8-7.7); POLYS (SEG NEUTROPHILS) 57 % (16-70); WBC DIFF SAMPLE 100
[2016-12-04 07:47] LABS: PLATELET ESTIMATE SMEAR LOW (NORMAL); PLATELET MORPHOLOGY NORMAL (NORMAL); POLYCHROMASIA 3.2 % (0.0-1.9); SCAN/DIFF FINAL DIFF MANUAL
[2016-12-04] MEDS: SODIUM CHLORIDE 0.9% FLUSH 5 ML FLUSH IV FLUSH SCH ×2 (08:52→20:05)
[2016-12-04] MEDS: BUMETANIDE INJ 1 MG/4 ML VIAL IV PUSH SCH ×2 (08:52→16:34)
[2016-12-04] MEDS: CHLORHEXIDINE 0.12% (ORAL KIT) 15 ML CUP MT SCH ×2 (08:53→20:04)
[2016-12-04] MEDS: FERROUS SULFATE 300 MG /5ML UDC PO SCH ×2 (08:53→20:05)
[2016-12-04] MEDS: ARTIFICIAL TEARS OPTH SOLN 15 ML BTL EACH EYE SCH ×3 (09:00→16:35)
--- NOTE | 2016-12-04 10:05 | HHI.GIFU ---
Subjective Remarks Pt sedated on vent. She continues to have melena. She is NPO, getting TPN. Objective Vitals I&O Vital Signs Date Time Temp Pulse Resp B/P Pulse Ox O2 Delivery O2 Flow Rate FiO2 12/04/16 08:57 100 35 12/04/16 06:00 82 12/04/16 04:16 100 35 12/04/16 04:00 99.6 82 15 106/51 100 12/04/16 04:00 40 12/04/16 04:00 82 12/04/16 02:00 79 12/04/16 01:36 100 35 12/04/16 00:00 99.2 74 15 110/49 100 12/04/16 00:00 40 12/04/16 00:00 74 12/03/16 22:30 96 40 12/03/16 22:00 77 12/03/16 20:00 40 12/03/16 20:00 98.0 69 15 105/49 99 12/03/16 20:00 69 12/03/16 18:00 65 12/03/16 16:54 100 40 12/03/16 16:00 40 12/03/16 16:00 94.5 58 20 113/55 100 12/03/16 16:00 58 12/03/16 14:00 56 12/03/16 13:20 40 12/03/16 12:50 100 40 12/03/16 12:00 40 12/03/16 12:00 56 12/03/16 12:00 95.0 56 17 105/52 100 12/03/16 10:37 100 40 12/03/16 10:00 55 I/O 12/03/16 12/03/16 12/03/16 12/04/16 12/04/16 12/04/16 07:00 15:00 23:00 07:00 15:00 23:00 Intake Total 1101 ml 1581 ml 260 ml 1091 ml Output Total 400 ml 800 ml 550 ml 675 ml Balance 701 ml 781 ml -290 ml 416 ml IV Total 441 ml 75 ml 200 ml 74 ml TPN/PPN 326 ml Lipid 91 ml Albumin 100 ml 200 ml 100 ml Packed Cells 676 ml Platelets 200 ml Tube Irrigant 60 ml 180 ml 60 ml Other 500 ml 250 ml 500 ml Output Urine Total 400 ml 500 ml 550 ml 575 ml Stool Total 0 ml 300 ml 0 ml 100 ml Laboratory Laboratory Tests Test 12/03/16 12/04/16 16:52 03:21 White Blood Count 4.3 4.6 Red Blood Count 2.58 2.68 Hemoglobin 7.4 7.7 Hematocrit 22.5 23.2 Mean Corpuscular Volume 87.1 86.6 Mean Corpuscular Hemoglobin 28.9 28.9 Mean Corpuscular Hemoglobin 33.1 33.3 Concent Red Cell Distribution Width 16.1 16.5 Platelet Count 32 55 Mean Platelet Volume 9.3 9.8 Prothrombin Time 166.4 14.3 Prothromb Time International 13.5 1.3 Ratio Neutrophils (%) (Auto) 68.6 Lymphocytes (%) (Auto) 12.7 Monocytes (%) (Auto) 7.5 Eosinophils (%) (Auto) 10.8 Basophils (%) (Auto) 0.4 Neutrophils # (Auto) 3.2 Lymphocytes # (Auto) 0.6 Monocytes # (Auto) 0.3 Eosinophils # (Auto) 0.5 Basophils # (Auto) 0.0 CBC Comment AUTO DIFF Differential Total Cells 100 Counted Neutrophils % (Manual) 57 Band Neutrophils % 15 Lymphocytes % 11 Monocytes % 3 Eosinophils % 12 Basophils % 1 Neutrophils # (Manual) 3.4 Metamyelocytes 1 Nucleated Red Blood Cells 2 Differential Comment FINAL DIFF MANUAL Platelet Estimate LOW Platelet Morphology Comment NORMAL Polychromasia 3.2 Sodium Level 143 Potassium Level 4.1 Chloride Level 108 Carbon Dioxide Level 24.6 Anion Gap 10 Blood Urea Nitrogen 88 Creatinine 3.44 Estimat Glomerular Filtration 13 Rate Random Glucose 135 Calcium Level 7.7 Phosphorus Level 3.9 Magnesium Level 1.8 Date/Time Procedure Status Source Growth 12/01/16 08:35 Stool Occult Blood ([facility]) - Final Complete Stool Stool HEMOCCULT POSITIVE Imaging Last Impressions Chest X-Ray 12/03/16 0600 Signed Impressions: Service Date/Time: Saturday, December 03, 2016 04:59 - CONCLUSION: Borderline cardiomegaly with diffuse consolidation which are clearly worse likely representing CHF. Some degree of left effusion needs to be considered. Jeffery Zhong MD Thoracentesis 12/01/16 0000 Signed Impressions: Service Date/Time: Thursday, December 01, 2016 18:56 - CONCLUSION: Uncomplicated CT-guided thoracentesis. Jeffery Alvarado MD Chest CT 12/01/16 0000 Signed Impressions: Service Date/Time: Thursday, December 01, 2016 13:09 - CONCLUSION: Bilateral pleural effusion, larger on the right than the left. Mack Cao MD FACR Abdomen Ultrasound 11/27/16 0000 Signed Impressions: Service Date/Time: Sunday, November 27, 2016 08:35 - CONCLUSION: Stone in the neck of the gallbladder. Trace ascites and mild splenomegaly Jeffery Alvarado MD Gastrostomy Tube Placement 11/24/16 0000 Signed Impressions: Service Date/Time: Sunday, November 27, 2016 14:34 - CONCLUSION: Uncomplicated gastrostomy tube placement as above. Kirit Alcantar MD Head CT 11/08/16 1657 Signed Impressions: Service Date/Time: Tuesday, November 08, 2016 17:06 - CONCLUSION: Low density seen throughout the posterior circulation regions including the susan and midbrain, cerebellar hemispheres, occipital and posterior medial temporal lobes and right thalamus. This likely represents areas of infarction involving the posterior territory circulation. Jeffery Zhong MD Carotid Artery Ultrasound 11/08/16 0000 Signed Impressions: Service Date/Time: Tuesday, November 08, 2016 22:24 - CONCLUSION: Mild calcified plaque at the carotid bulbs. No evidence of hemodynamically significant carotid stenosis. José Luis Beltran MD Physical Exam HEENT: Normocephalic; atraumatic; no jaundice. CHEST: CTA, diminished CARDIAC: RRR ABDOMEN: Soft, nondistended, no hepatosplenomegaly; bowel sounds are present in all four quadrants. Melena in rectal bag. Aspirated small amount of dark old appearing coffee ground gastric secretions- very small amount. EXTREMITIES: Generalized edema. SKIN: Generalized pallor [employer]: Sedated on vent Assessment and Plan Plan ASSESSMENT: - GIB/anemia with drop in hgb. 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 She has received 11 units of PRBC and one unit of Plt. Her HH is currently 7.7/23.2- stable since yesterday. She continues to have melanotic stool in rectal bag. She is NPO, I aspirated very small amount of old appearing coffee ground secretions from PEG tube. Will keep NPO for now and continue protonix gtt. If no further active bleeding and HH remains stable, will start TF in am. - Large gastric ulcer, multiple duodenal avms. S/P Ablation. Protonix gtt. - Anemia secondary to acute blood loss. S/P 11 units PRBC. HH 7.7/23.2. - Dysphagia, FEN. Pt currently in ICU being treated for massive posterior circulation ischemic CVA and she remains in the ICU being treated for hypoxic respiratory failure, severe encephalopathy secondary to stroke, severe sepsis, HCAP with pleural effusion, and acute kidney injury. She is S/P tracheostomy. Had PEG tube placement by IR on 11/27. - Severe Encephalopathy/CVA. Per CCM - Resp. Failure, HCAP, Pleural effusion per CCM - BRIANA with electrolyte abnormalities. PLAN: - NPO for today - If no active bleeding and HH remains stable, will start TF in am - Monitor HH - Transfuse as necessary - Cont. TPN for now - Cont. Protonix Gtt - If active bleeding, consider IR for embolization - Supportive care - Further recommendations to follow based on results of above - Pt seen and examined by Dr. Farnsworth and myself and this note is written on his behalf Yoli Dickens Dec 04, 2016 10:05
--- NOTE | 2016-12-04 12:18 | RADRPT ---
EXAM DATE/TIME: 12/04/2016 00:00 [facility] COMPARISON : No previous studies available for comparison. INDICATIONS : Patient with a history of GI bleed, bleeding gastric ulcer with multiple AVMs in the duodenum The patient is an 86-year-old woman with history of advanced dementia who was admitted for a large br ainstem stroke. She has had ongoing upper gastrointestinal bleeding felt related to gastric and duode nal sources. We have been asked to consider arteriography with possible endovascular treatment. The patient was seen and the chart was reviewed. I reviewed her imaging examinations, including head CT from November 08, 2016. The patient is intubated and responds to stimuli with decerebrate posturing. Rectal tube output is ta rry. No recent acute appearing rectal blood or hematemesis. Hemoglobin is 7.7. Creatinine has been hovering around 3.5 with GFR of 12. The case was discussed with Dr. Farnsworth and Dr. Bauer. IMAGING STUDIES: Head CT reveals extensive brainstem and posterior circulation stroke. Abdominal ultrasound reveals no evidence of hydronephrosis. ASSESSMENT: Extremely poor prognosis. Likelihood of benefit from endovascular embolization of some type in this case is low. Associated ris k would be high, in particular because intervention cannot practically be accomplished without use of iodinated contrast, administration of which would be highly likely to result in renal failure. PLAN: Continued supportive management. The patient is not felt to be a candidate for arteriography with endovascular treatment at present. Jeffery Alvarado MD on December 04, 2016 at 11:33 Board Certified Radiologist. This report was verified electronically.
--- NOTE | 2016-12-04 13:00 | HHI.NPPN ---
Subjective History of Present Illness 86 year old with CVA, Resp failure s/p Trach/ PEG Additional Remarks Remains intubated, ongoing anemia. Review of Systems General Constitutional: Fatigue Objective Data Data 12/03/16 12/04/16 19:00 07:00 Intake Total 1581 ml 1351 ml Output Total 800 ml 1225 ml Balance 781 ml 126 ml IV Total 75 ml 274 ml TPN/PPN 326 ml Lipid 91 ml Albumin 200 ml 100 ml Packed Cells 676 ml Platelets 200 ml Tube Irrigant 180 ml 60 ml Other 250 ml 500 ml Output Urine Total 500 ml 1125 ml Stool Total 300 ml 100 ml Vital Signs Date Time Temp Pulse Resp B/P Pulse Ox O2 Delivery O2 Flow Rate FiO2 12/04/16 12:14 99 35 12/04/16 12:00 35 12/04/16 08:57 100 35 12/04/16 08:00 35 12/04/16 06:00 82 12/04/16 04:16 100 35 12/04/16 04:00 99.6 82 15 106/51 100 12/04/16 04:00 40 12/04/16 04:00 82 12/04/16 02:00 79 12/04/16 01:36 100 35 12/04/16 00:00 99.2 74 15 110/49 100 12/04/16 00:00 40 12/04/16 00:00 74 12/03/16 22:30 96 40 12/03/16 22:00 77 12/03/16 20:00 40 12/03/16 20:00 98.0 69 15 105/49 99 12/03/16 20:00 69 12/03/16 18:00 65 12/03/16 16:54 100 40 12/03/16 16:00 40 12/03/16 16:00 94.5 58 20 113/55 100 12/03/16 16:00 58 12/03/16 14:00 56 12/03/16 13:20 40 -: 12/04/16 0321 12/04/16 0321 Physical Exam General Appearance: Pale Neck Neck Remarks s/p trach Pulmonary Resp Exam: Decreased Bases Cardiology CV Exam: Regular Gastrointestinal/Abdomen GI Exam: Soft, Non-Tender Extremeties Extremities Exam: Moderate Edema Assessment/Plan Problem List: (1) Acute renal failure Plan: Patient has multiple issues and has malnutrition with poor albumin contributing to low oncotic pressure, ATN creatinine stable: 3.6 -> 3.5 -> 3.5 --> 3.4 On Bumex 2 mg IV q12 - continue for now. Good UOP with 1.6 L/ 24 hours no meaningful recovery from CVA at this point Palliative care following. Apparently son would like to fly her to [place] for stem cell treatment. Continue to follow goals of care. 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 Ongoing anemia, continue to monitor. (2) Metabolic acidosis Plan: Stable, continue to monitor (3) Pneumonia Plan: On vent treated earlier with antibiotic (4) Urinary tract infection Plan: Escherichia coli she was treated (5) CVA (cerebral vascular accident) Plan: Massive stroke neurology following (6) Rhabdomyolysis Plan: This resolved (7) Hypernatremia Plan: Given 1L of DW over weekend improved Continue to monitor, repeat as necessary Problem Qualifiers (1) Acute renal failure: Qualified Code: N17.9 - Acute renal failure, unspecified acute renal failure type (2) CVA (cerebral vascular accident): Qualified Code: I63.9 - Cerebrovascular accident (CVA), unspecified mechanism (3) Rhabdomyolysis: Qualified Code: M62.82 - Non-traumatic rhabdomyolysis Kristel Zuniga MD Dec 04, 2016 13:00
--- NOTE | 2016-12-04 14:16 | HHI.CCPN ---
Subjective Remarks/Hospital Course This is an 86yF with per report no other past medical history who presented to the ER after she was found unresponsive in her bed. According to ER reports, her family saw her normal last night when she had a fall, with unknown LOC. At that point, he helped her back to bed. However, this morning she did not wake up. On arrival to the ER, she was unresponsive only withdrawing to pain. she was intubated for airway protection and a poor GCS. CT head demonstrated massive posterior-circulation ischemic stroke. The patient is currently intubated and unresponsive and cannot provide any additional history. 11/09: No acute changes overnight. Palliative care team has consult with the family regarding goals of care. Currently the patient's sedation fentanyl infusion has been turned off without any response from patient. The patient notably does withdrawal to pain. 11/10: No change in neurological status. [id number]. The patient withdraws to pain 4 extremities. The patient currently on no sedation, fentanyl infusion discontinued yesterday. Tube feeds were initiated. The patient's urine culture grew back Escherichia coli, the patient was started on antibiotics. Extensive discussion with son regarding patient's neurological status, son Wyatt has had extensive discussion with palliative care.The son feels that yesterday when the patient was spoken to in Portuguese the patient squeezed his hand and desires aggressive treatment. The patient's neuro status is unchanged, totally unresponsive with occasional reflexive twitching of feet B/L. Follow-up with neurology Dr. Pack, guarding any further imaging studies. 11/13: No change in neuro exam. Palliative care following. Family wanting full aggressive care. Palliative care will address early trach PEG 11/14: No improvement in neuro status. Son has not made decisions regarding trach and PEG. Apparently he wants to wait longer to see any improvement 11/15: Remains unresponsive. Neuro exam with extensor posturing-unchanged. Son requesting aggressive care. Continues to have low-grade fever 11/16: Clinically no improvement. Tolerates CPAP. Unable to extubate as patient will not protect airway 11/17: Tolerating C Pap but no change in neuro exam. Hemoglobin noted to be 6.8 hemodynamically stable 11/18: Became tachycardic and hypotensive early a.m., placed on assist control. Otherwise neuro exam remains unchanged 11/19: Continues to spike fever Tmax 102, started on vancomycin and cefepime in addition to Levaquin yesterday. Currently only low-grade fever. Received 2 units of blood for hemoglobin of 5.3. CBC pending at this time. No improvement in neuro exam 11/20: White count is 18.3 today, MAXIMUM TEMPERATURE 103.1. Chest x-ray showing right sided infiltrate. Urine culture with gram-negative rods and Brionna albicans. ID consulted Diflucan added 11/21/16: Tmax 101.5. Bilateral lung infiltrates, R>L but slightly improved. No improvement in neuro exam. ID consulted and following. 11/22/16: No fever. CT chest- moderate to large R pleural effusion, bilateral lung infiltrates. ABX per ID. CXR today shows increasing bilateral infiltrates and effusion right more than left. Almost near complete infiltrates on the right lung [place]. Vaginally worsening creatinine today 1.45 indicating multiorgan failure 11/23/16: Hb 9.8 today after 2U PRBC yesterday. Plan for tracheostomy today. INR normal platelet count 116. Worsening creatinine today is 1.6. UO 550 ml in 24 hours. 1L NS bolus and 75 ml per hour maintenance NS. Started on Dopamine 3 mcg per min to maintain MAP>65 11/24 Patient is on ventilator via trach. Afebrile. On Dopamine 4 mics. 11/25 No acute events overnight. s/p EGD yesterday showed mild gastritis unable to place PEG tube endoscopically. Remains on Dopamine 4 mics. On no sedation unresponsive. 11/26 No acute events overnight. On CPAP with PS 20, PEEP: 5 and FIO2 40%. Afebrile. Off Dopamine. Afebrile. 11/27 Patient remains on ventilator via trach on no drips. Afebrile. For PEG tube placement by IR today. 11/28 Patient s/p PEG tube placement by IR yesterday, s/p Right thoracentesis with removal 700ml CXR showed better aeration of lungs, Hgb 6.7 this morning 2units PRBC ordered. Renal function worse with Cr: 3.40 from 2.85 . 11/29: Remains encephalopathic on mechanical ventilation via tracheostomy. 11/30: Remains encephalopathic on mechanical ventilation via tracheostomy. 12/01 Patient s/p transfusion 1unit PRBC last night for Hgb 5.8 in addition to 2L NS. Hgb 6.5 this morning. 12/02: Afebrile. The patient underwent CT-guided thoracentesis yesterday with approximately 600 cc removed. Chest x-ray pending this a.m.. Patient received packed red blood cell 2 units yesterday. Hemoglobin 7.4. Pending EGD today. 12/03:The patient underwent EGD yesterday with Dr. Farnsworth patient was noted to have a large active bleeding ulcer in the body of the stomach, multiple AVMs. Multiple ablations performed. This a.m. hemoglobin dropped to 6.1, platelet count 38. The patient was transfused 2 PRBC, and a unit of platelets. Patient still not relieved receiving any nutrition will begin PPN today. The patient continues to have copious amounts of melena with fecal incontinence apparatus in place. 12/04: The patient continues to have copious melena. PT INR drawn last evening INR was noted to be 13.5. The patient received KCentra, and current INR 1.3 the family requests aggressive measures to be continued. No further interventions from gastroenterology per . IR deemed the patient not a candidate for arteriography or endovascular treatment. Objective Vital Signs Date Time Temp Pulse Resp B/P Pulse Ox O2 Delivery O2 Flow Rate FiO2 12/04/16 12:14 99 35 12/04/16 06:00 82 12/04/16 04:00 99.6 15 106/51 Intake and Output 12/03/16 12/03/16 12/04/16 08:00 16:00 00:00 Intake Total 1101 ml 1581 ml 260 ml Output Total 400 ml 800 ml 550 ml Balance 701 ml 781 ml -290 ml Result Diagram: 12/04/16 0321 12/04/16 0321 Imaging Last Impressions Chest X-Ray 11/27/16 1522 Signed Impressions: Service Date/Time: Sunday, November 27, 2016 15:24 - CONCLUSION: 1. Marked improvement in right lung aeration post thoracentesis. No pneumothorax. 2. Improving bilateral airspace disease. Persistent, small left basilar consolidation/effusion Kirit Alcantar MD Thoracentesis 11/27/16 0000 Signed Impressions: Service Date/Time: Sunday, November 27, 2016 14:18 - CONCLUSION: Uncomplicated ultrasound guided thoracentesis. Kirit Alcantar MD Abdomen Ultrasound 11/27/16 0000 Signed Impressions: Service Date/Time: Sunday, November 27, 2016 08:35 - CONCLUSION: Stone in the neck of the gallbladder. Trace ascites and mild splenomegaly Jeffery Alvarado MD Gastrostomy Tube Placement 11/24/16 0000 Signed Impressions: Service Date/Time: Sunday, November 27, 2016 14:34 - CONCLUSION: Uncomplicated gastrostomy tube placement as above. Kirit Alcantar MD Chest CT 11/21/16 0000 Signed Impressions: Service Date/Time: Monday, November 21, 2016 22:57 - CONCLUSION: 1. Moderate size right pleural effusion and small left pleural effusion. Right effusion has increased over the last day compared with a recent chest radiograph. 2. Bilateral lung consolidation as above. Differential diagnosis includes pneumonia and aspiration. Emeterio Freire MD Head CT [id number] Signed Impressions: Service Date/Time: Tuesday, November 08, 2016 17:06 - CONCLUSION: Low density seen throughout the posterior circulation regions including the susan and midbrain, cerebellar hemispheres, occipital and posterior medial temporal lobes and right thalamus. This likely represents areas of infarction involving the posterior territory circulation. Jeffery Zhong MD Carotid Artery Ultrasound 11/08/16 0000 Signed Impressions: Service Date/Time: Tuesday, November 08, 2016 22:24 - CONCLUSION: Mild calcified plaque at the carotid bulbs. No evidence of hemodynamically significant carotid stenosis. José Luis Beltran MD Objective Remarks GENERAL: Patient is 86 yo on ventilator via trach. SKIN: Warm and dry. HEAD: Normocephalic. EYES: No scleral icterus. No injection or drainage. Corneal reflex intact NECK: Supple, trachea midline. No JVD or lymphadenopathy. CARDIOVASCULAR: Regular rate and rhythm without murmurs, gallops, or rubs. RESPIRATORY: Breath sounds equal bilaterally. Few coarse BS. 8.0 trach in situ GASTROINTESTINAL: Abdomen soft, non-tender, nondistended. PEG in place MUSCULOSKELETAL: No cyanosis, or edema. Neuro: Positive corneal reflex. LIDYA. Negative cough. Negative gag. Extensor posturing in uppers. Downgoing Babinski. 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 She was last seen normal, nearly 24 hours, she was not a candidate for any interventional therapy. Unfortunately, given her age, and the extent of the stroke, her prognosis for any reasonable neurologic function is quite poor, and I do not think that we will be able to improve her outcome at all. Active GI bleed discussed with family, and patient's poor prognosis. Her family continues to express wishes for aggressive medical management. Active problems: Massive posterior circulation ischemic CVA Hypoxic and hypercarbic respiratory failure Severe encephalopathy secondary to stroke Severe sepsis Healthcare associated pneumonia with pleural effusion Acute kidney injury UTI Anemia-acute and chronic Hyperglycemia of critical illness Thrombocytopenia Active GI bleed with AVM's Plan Neuro: On no sedation Monitor neuro status and avoid sedatives. Neuro is following -11/08 CT brain: Low density seen throughout the posterior circulation regions including the susan and midbrain, cerebellar hemispheres, occipital and posterior medial temporal lobes and right thalamus. This likely represents areas of infarction involving the posterior territory circulation -GCS 3T, decerebrate posturing Resp: -Continue with vent support keep sat >92% Vent bundle, Head of bed 30, bronchodilators-scheduled -s/p trach 11/23, pulm toilet, trach care -SBT daily as lia -s/p CT guided right thoracentesis 11/27 with removal 700ml clear fluid. -12/02 CXR-pulmonary edema, stable CHF, no pneumothorax, pleural effusions CVS: Monitor HR and BP keep MAP>65mmhg 2-D echo -EF 5560 %, mild aortic mitral and tricuspid regurgitation, No RWMA. Carotid ultrasound-no stenosis GI: -s/p PEG tube placement by IR 11/27 , TF held (Jevity 1.5 with goal rate 45 ml/hr ) secondary to GI bleeding -s/p EGD 11/24 showed mild gastritis unable to place PEG tube endoscopically. -Monitor LFT's, US abdomen: Stone in neck of gall bladder, no hydronephrosis -s/p transfusion 1unit PRBC last night will transfuse 2units PRBC 12/01. -12/01 CT abdomen/pelvis-generalized anasarca, trace ascites, bilateral pleural effusions right greater than left -Large gastric ulcer with active bleeding, active melena Protonix infusion continued -IR consulted for possible intervention regarding AVMs and gastric ulcer : -Monitor renal function, I/O's, electrolytes replacement as needed. - Cr: 3.54 today -on Albumin 25gms Q12, Bumex 2mg IV BID. Renal is following- Dr. Zuniga -On Free water 250ml Q6 monitor sodium level. ID: -Continue abx per ID ( Rocephin, Zithromax) monitor for signs of infections ( Fever, WBC) -Urine culture 11/18/16 with Brionna albicans and E coli NOT S Levaquin, but S to zosyn -Infectious disease Dr. Wen, follow up on sputum cx 11/23: nl resp erica Heme: Monitor CBC, for transfusion 2 units PRBC today, and platelets INR 1.3 Endo: --Medium dose sliding scale regimen Proph: Subcutaneous heparin on hold since 11/23 secondary to thrombocytopenia, anemia and GI bleed. SCDs for DVT prophylaxis Protonix for GI prophylaxis -Palliative care is following IV access: Peripheral IV's, Level 3 Physician Aysha Raymundo MD Dec 04, 2016 14:16
[2016-12-04 14:48] LABS: REVIEW FLAG FINAL
[2016-12-04 14:49] LABS: HEMATOCRIT 20.2 % (35.0-46.0)
[2016-12-04] MEDS: CLINIMIX 4.25/5 (Cust.Renal Periph) 1000 mL- </= 42 mls/hr IV SCH ×8 (20:05)
[2016-12-04] MEDS: FAT EMULSION 20% INJ 250 ML (@10 mls/hr) IV SCH (20:13)
[2016-12-05] VITALS (19 sets, daily range): BP systolic 98–121; BP diastolic 45–56; PULSE 68–100; RESP 15–17; TEMP 98–100.8; O2SAT 96–100
[2016-12-05] MEDS: ALBUMIN HUMAN 25% 25 GM/100 ML BAGP IV SCH ×2 (02:35→15:19)
[2016-12-05] MEDS: CHLORHEXIDINE GLUCONATE 2 % 1 PACK (2 CLOTHS) TOP SCH (04:00)
[2016-12-05] MEDS: PANTOPRAZOLE INJ 80 MG in SODIUM CHLORIDE 0.9% INJ 100 ML IV SCH ×2 (04:13→16:12)
[2016-12-05] MEDS: HIGH DOSE INSULIN NOVOLIN REGULAR SUPPLEMENTAL SCALE SQ SCH ×6 (04:13→20:05)
[2016-12-05 05:51] LABS: MEAN CELL VOLUME 88.2 FL (80.0-100.0); MEAN CORPUSCULAR HEMOGLOBIN 29.5 PG (27.0-34.0); MEAN CORPUSCULAR HGB CONC 33.4 % (32.0-36.0); PLATELET COUNT 52 TH/MM3 (150-450); RED BLOOD COUNT 1.89 MIL/MM3 (4.00-5.30); RED CELL DISTRIBUTION WIDTH 17.1 % (11.6-17.2); WHITE BLOOD COUNT 3.7 TH/MM3 (4.0-11.0)
[2016-12-05 06:17] LABS: HEMO FLAGS AUTO DIFF
[2016-12-05 06:19] LABS: HEMATOCRIT 16.7 % (35.0-46.0)
[2016-12-05 06:23] LABS: BICARBONATE 24.8 MEQ/L (21.0-32.0); MAGNESIUM 1.9 MG/DL (1.5-2.5); POTASSIUM 3.2 MEQ/L (3.5-5.1)
[2016-12-05] MEDS: CHLORHEXIDINE 0.12% (ORAL KIT) 15 ML CUP MT SCH ×2 (07:21→20:05)
[2016-12-05 08:05] LABS: BANDS 13 % (0-6); BASOPHILS 1 % (0-2); CORRECTED NUCLEATED RBC 2 /100 WBC (0-0); EOSINOPHILS 9 % (0-4); METAMYELOCYTES 1 % (0-1); NEUTROPHIL # MANUAL DIFF 2.8 TH/MM3 (1.8-7.7); POLYS (SEG NEUTROPHILS) 63 % (16-70); WBC DIFF SAMPLE 100
[2016-12-05 08:06] LABS: PLATELET ESTIMATE SMEAR LOW (NORMAL); PLATELET MORPHOLOGY NORMAL (NORMAL); POLYCHROMASIA 2.4 % (0.0-1.9)
[2016-12-05 08:07] LABS: ACANTHOCYTES OCC (NORMAL); SCAN/DIFF FINAL DIFF MANUAL
--- NOTE | 2016-12-05 08:55 | HHI.CCPN ---
Subjective Remarks/Hospital Course This is an 86yF with per report no other past medical history who presented to the ER after she was found unresponsive in her bed. According to ER reports, her family saw her normal last night when she had a fall, with unknown LOC. At that point, he helped her back to bed. However, this morning she did not wake up. On arrival to the ER, she was unresponsive only withdrawing to pain. she was intubated for airway protection and a poor GCS. CT head demonstrated massive posterior-circulation ischemic stroke. The patient is currently intubated and unresponsive and cannot provide any additional history. 11/09: No acute changes overnight. Palliative care team has consult with the family regarding goals of care. Currently the patient's sedation fentanyl infusion has been turned off without any response from patient. The patient notably does withdrawal to pain. 11/10: No change in neurological status. [id number]. The patient withdraws to pain 4 extremities. The patient currently on no sedation, fentanyl infusion discontinued yesterday. Tube feeds were initiated. The patient's urine culture grew back Escherichia coli, the patient was started on antibiotics. Extensive discussion with son regarding patient's neurological status, son Wyatt has had extensive discussion with palliative care.The son feels that yesterday when the patient was spoken to in Estonian the patient squeezed his hand and desires aggressive treatment. The patient's neuro status is unchanged, totally unresponsive with occasional reflexive twitching of feet B/L. Follow-up with neurology Dr. Pack, guarding any further imaging studies. 11/13: No change in neuro exam. Palliative care following. Family wanting full aggressive care. Palliative care will address early trach PEG 11/14: No improvement in neuro status. Son has not made decisions regarding trach and PEG. Apparently he wants to wait longer to see any improvement 11/15: Remains unresponsive. Neuro exam with extensor posturing-unchanged. Son requesting aggressive care. Continues to have low-grade fever 11/16: Clinically no improvement. Tolerates CPAP. Unable to extubate as patient will not protect airway 11/17: Tolerating C Pap but no change in neuro exam. Hemoglobin noted to be 6.8 hemodynamically stable 11/18: Became tachycardic and hypotensive early a.m., placed on assist control. Otherwise neuro exam remains unchanged 11/19: Continues to spike fever Tmax 102, started on vancomycin and cefepime in addition to Levaquin yesterday. Currently only low-grade fever. Received 2 units of blood for hemoglobin of 5.3. CBC pending at this time. No improvement in neuro exam 11/20: White count is 18.3 today, MAXIMUM TEMPERATURE 103.1. Chest x-ray showing right sided infiltrate. Urine culture with gram-negative rods and Brionna albicans. ID consulted Diflucan added 11/21/16: Tmax 101.5. Bilateral lung infiltrates, R>L but slightly improved. No improvement in neuro exam. ID consulted and following. 11/22/16: No fever. CT chest- moderate to large R pleural effusion, bilateral lung infiltrates. ABX per ID. CXR today shows increasing bilateral infiltrates and effusion right more than left. Almost near complete infiltrates on the right lung [place]. Vaginally worsening creatinine today 1.45 indicating multiorgan failure 11/23/16: Hb 9.8 today after 2U PRBC yesterday. Plan for tracheostomy today. INR normal platelet count 116. Worsening creatinine today is 1.6. UO 550 ml in 24 hours. 1L NS bolus and 75 ml per hour maintenance NS. Started on Dopamine 3 mcg per min to maintain MAP>65 11/24 Patient is on ventilator via trach. Afebrile. On Dopamine 4 mics. 11/25 No acute events overnight. s/p EGD yesterday showed mild gastritis unable to place PEG tube endoscopically. Remains on Dopamine 4 mics. On no sedation unresponsive. 11/26 No acute events overnight. On CPAP with PS 20, PEEP: 5 and FIO2 40%. Afebrile. Off Dopamine. Afebrile. 11/27 Patient remains on ventilator via trach on no drips. Afebrile. For PEG tube placement by IR today. 11/28 Patient s/p PEG tube placement by IR yesterday, s/p Right thoracentesis with removal 700ml CXR showed better aeration of lungs, Hgb 6.7 this morning 2units PRBC ordered. Renal function worse with Cr: 3.40 from 2.85 . 11/29: Remains encephalopathic on mechanical ventilation via tracheostomy. 11/30: Remains encephalopathic on mechanical ventilation via tracheostomy. 12/01 Patient s/p transfusion 1unit PRBC last night for Hgb 5.8 in addition to 2L NS. Hgb 6.5 this morning. 12/02: Afebrile. The patient underwent CT-guided thoracentesis yesterday with approximately 600 cc removed. Chest x-ray pending this a.m.. Patient received packed red blood cell 2 units yesterday. Hemoglobin 7.4. Pending EGD today. 12/03:The patient underwent EGD yesterday with Dr. Farnsworth patient was noted to have a large active bleeding ulcer in the body of the stomach, multiple AVMs. Multiple ablations performed. This a.m. hemoglobin dropped to 6.1, platelet count 38. The patient was transfused 2 PRBC, and a unit of platelets. Patient still not relieved receiving any nutrition will begin PPN today. The patient continues to have copious amounts of melena with fecal incontinence apparatus in place. 12/04: The patient continues to have copious melena. PT INR drawn last evening INR was noted to be 13.5. The patient received KCentra, and current INR 1.3 the family requests aggressive measures to be continued. No further interventions from gastroenterology per . IR deemed the patient not a candidate for arteriography or endovascular treatment. 12/05: Patient's current medical status unchanged. Large tarry stools, acute blood loss anemia continues in conjunction with thrombocytopenia. During the night the nurse reported a malodorous scent was noted in free water flush container for instillation through G-tube. It was noted to be possibly fish oil , patient's son was in the room during that time. Container removed. The patient is noted to have a hemoglobin level of 5.8 today will receive 2 units of packed red blood cells and 1 unit of platelets today. Objective Vital Signs Date Time Temp Pulse Resp B/P Pulse Ox O2 Delivery O2 Flow Rate FiO2 12/05/16 08:30 100 35 12/05/16 08:00 98.3 72 15 103/45 Intake and Output 12/04/16 12/04/16 12/05/16 08:00 16:00 00:00 Intake Total 1091 ml 1003 ml 520 ml Output Total 675 ml 1350 ml 1325 ml Balance 416 ml -347 ml -805 ml Result Diagram: 12/05/16 0456 12/05/16 0436 Imaging Last Impressions Chest X-Ray 11/27/16 1522 Signed Impressions: Service Date/Time: Sunday, November 27, 2016 15:24 - CONCLUSION: 1. Marked improvement in right lung aeration post thoracentesis. No pneumothorax. 2. Improving bilateral airspace disease. Persistent, small left basilar consolidation/effusion Kirit Alcantar MD Thoracentesis 11/27/16 0000 Signed Impressions: Service Date/Time: Sunday, November 27, 2016 14:18 - CONCLUSION: Uncomplicated ultrasound guided thoracentesis. Kirit Alcantar MD Abdomen Ultrasound 11/27/16 0000 Signed Impressions: Service Date/Time: Sunday, November 27, 2016 08:35 - CONCLUSION: Stone in the neck of the gallbladder. Trace ascites and mild splenomegaly Jeffery Alvarado MD Gastrostomy Tube Placement 11/24/16 0000 Signed Impressions: Service Date/Time: Sunday, November 27, 2016 14:34 - CONCLUSION: Uncomplicated gastrostomy tube placement as above. Kirit Alcantar MD Chest CT 11/21/16 0000 Signed Impressions: Service Date/Time: Monday, November 21, 2016 22:57 - CONCLUSION: 1. Moderate size right pleural effusion and small left pleural effusion. Right effusion has increased over the last day compared with a recent chest radiograph. 2. Bilateral lung consolidation as above. Differential diagnosis includes pneumonia and aspiration. Emeterio Freire MD Head CT 11/08/16 1657 Signed Impressions: Service Date/Time: Tuesday, November 08, 2016 17:06 - CONCLUSION: Low density seen throughout the posterior circulation regions including the susan and midbrain, cerebellar hemispheres, occipital and posterior medial temporal lobes and right thalamus. This likely represents areas of infarction involving the posterior territory circulation. Jeffery Zhong MD Carotid Artery Ultrasound 11/08/16 0000 Signed Impressions: Service Date/Time: Tuesday, November 08, 2016 22:24 - CONCLUSION: Mild calcified plaque at the carotid bulbs. No evidence of hemodynamically significant carotid stenosis. José Luis Beltran MD Objective Remarks GENERAL: Patient is 86 yo on ventilator via trach. SKIN: Warm and dry. HEAD: Normocephalic. EYES: No scleral icterus. No injection or drainage. NECK: Supple, trachea midline. No JVD or lymphadenopathy. CARDIOVASCULAR: Regular rate and rhythm without murmurs, gallops, or rubs. RESPIRATORY: Breath sounds equal bilaterally. Few coarse BS. 8.0 trach in situ GASTROINTESTINAL: Abdomen soft, non-tender, nondistended. PEG in place MUSCULOSKELETAL: No cyanosis, or edema. Neuro: Positive corneal reflex. LIDYA. Negative cough. Negative gag. Extensor posturing in uppers. Downgoing Babinski. 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 She was last seen normal, nearly 24 hours, she was not a candidate for any interventional therapy. Unfortunately, given her age, and the extent of the stroke, her prognosis for any reasonable neurologic function is quite poor. Active GI bleed discussed with family, and patient's poor prognosis. Her family continues to express wishes for aggressive medical management. Active problems: Massive posterior circulation ischemic CVA Hypoxic and hypercarbic respiratory failure Severe encephalopathy secondary to stroke Severe sepsis Healthcare associated pneumonia with pleural effusion Acute kidney injury UTI Anemia-acute and chronic Hyperglycemia of critical illness Thrombocytopenia Active GI bleed with AVM's Plan Neuro: On no sedation Monitor neuro status and avoid sedatives. Neuro is following -11/08 CT brain: Low density seen throughout the posterior circulation regions including the susan and midbrain, cerebellar hemispheres, occipital and posterior medial temporal lobes and right thalamus. This likely represents areas of infarction involving the posterior territory circulation -GCS 3T, decerebrate posturing Resp: -Continue with vent support keep sat >92% Vent bundle, Head of bed 30, bronchodilators-scheduled -s/p trach 11/23, pulm toilet, trach care -SBT daily as lia -s/p CT guided right thoracentesis 11/27 with removal 700ml clear fluid. -12/02 CXR-pulmonary edema, stable CHF, no pneumothorax, pleural effusions CVS: Monitor HR and BP keep MAP>65mmhg 2-D echo -EF 5560 %, mild aortic mitral and tricuspid regurgitation, No RWMA. Carotid ultrasound-no stenosis GI: -s/p PEG tube placement by IR 11/27 , TF held (Jevity 1.5 with goal rate 45 ml/hr ) secondary to GI bleeding -s/p EGD 11/24 showed mild gastritis unable to place PEG tube endoscopically. -Monitor LFT's, US abdomen: Stone in neck of gall bladder, no hydronephrosis -s/p transfusion 1unit PRBC last night will transfuse 2units PRBC 12/01. -12/01 CT abdomen/pelvis-generalized anasarca, trace ascites, bilateral pleural effusions right greater than left -Large gastric ulcer with active bleeding, active melena Protonix infusion continued -IR intervention-patient is not a candidate : -Monitor renal function, I/O's, electrolytes replacement as needed. - Cr: 3.54 today -on Albumin 25gms Q12, Bumex 2mg IV BID. Renal is following- Dr. Zuniga -On Free water 250ml Q6 monitor sodium level. ID: -Continue abx per ID ( Rocephin, Zithromax) monitor for signs of infections ( Fever, WBC) -Urine culture 11/18/16 with Brionna albicans and E coli NOT S Levaquin, but S to zosyn -Infectious disease Dr. Wen, follow up on sputum cx 11/23: nl resp erica Heme: Monitor CBC, 5.8 for transfusion 2 units PRBC today, and platelets INR 1.3 Endo: --Medium dose sliding scale regimen Proph: Subcutaneous heparin on hold since 11/23 secondary to thrombocytopenia, anemia and GI bleed. SCDs for DVT prophylaxis Protonix for GI prophylaxis -Palliative care is following IV access: Peripheral IV's, I discussed via telephone son Wyatt Crawford to inquire about placement of Fish Oil in patient's free water flushes, and the serious effects in this setting of acute bleeding. The son stated he thought it was a good idea to give the patient Fish oil and asked me to order/ give the patient Fish Oil. I again reeducated the family member Wyatt Crawford that it was counterintuitive and it caused an increased risk of bleeding and was not part of the treatment plan. I discouraged him from ever adding any additives/medications of any kind to any of the patient's water or medications in her room. Level 3 Physician Aysha Raymundo MD Dec 05, 2016 08:55
[2016-12-05] MEDS: ARTIFICIAL TEARS OPTH SOLN 15 ML BTL EACH EYE SCH ×3 (09:00→18:00)
[2016-12-05] MEDS: BUMETANIDE INJ 1 MG/4 ML VIAL IV PUSH SCH ×2 (09:15→18:23)
[2016-12-05] MEDS: FERROUS SULFATE 300 MG /5ML UDC PO SCH ×2 (09:15→20:06)
[2016-12-05] MEDS: SODIUM CHLORIDE 0.9% FLUSH 5 ML FLUSH IV FLUSH SCH ×2 (09:16→20:06)
[2016-12-05] MEDS: HYOSCYAMINE SOLN 0.125 MG/ML 15 ML BTL PO PRN (09:19)
--- NOTE | 2016-12-05 10:52 | MR ---
cc: ROMARIO BLANCHARD M.D. DATE: 12/02/2016 DATE OF : 11/02/1929 PROCEDURE Upper gastrointestinal endoscopy with bleeding control endoscopy. MEDICATIONS Propofol administered by us by a nurse the patient was already intubated. PROCEDURE After informing the patient of procedure and complication consent was signed. The patient was placed on her left lateral decubitus. The scope was placed in the mouth advanced under video guidance to the stomach there was large amount of blood in the stomach there was a large linear ulcer in the body of the stomach which was cauterized be actively bleeding. There was takes tube is in place in the next multiple AVM in the duodenum which was ablated at the next scope drawn back without immediate complication. Next the patient is very high risk for recurrent bleeding and I had a long discussion with her son about the outcome and he wants to stop the anticoagulation completely. He wants her to be stabilized so he can take her to a place where they give stem cells, he says there are a couple of places in [place] and in [place] that they will do it but they told him that she is not stable to fly at this time and when she is stable he can fly her there. I advised him that there is a small chance that she will be stabilized especially now with the GI bleed and if she decided to stop the anticoagulation completely that will worsened her stroke, we will continue supportive care. Continue PPI and packed RBC as needed. MD FORD Bernardo/adolfo /7:00 PM /10:20 AM
--- NOTE | 2016-12-05 11:54 | HHI.NPPN ---
Subjective History of Present Illness 86 year old with CVA, Resp failure s/p Trach/ PEG Additional Remarks Remains intubated, ongoing anemia. Review of Systems General Constitutional: Fatigue Objective Data Data 12/04/16 12/05/16 19:00 07:00 Intake Total 1003 ml 1541 ml Output Total 1350 ml 2100 ml Balance -347 ml -559 ml Intake Oral 0 ml IV Total 81 ml 911 ml Tube Feeding 0 ml 0 ml TPN/PPN 339 ml Lipid 83 ml Albumin 100 ml Other 500 ml 530 ml Output Urine Total 750 ml 1725 ml Stool Total 600 ml 375 ml Vital Signs Date Time Temp Pulse Resp B/P Pulse Ox O2 Delivery O2 Flow Rate FiO2 12/05/16 11:36 100 35 12/05/16 10:00 76 12/05/16 08:30 100 35 12/05/16 08:27 35 12/05/16 08:00 35 12/05/16 08:00 98.3 72 15 103/45 100 12/05/16 08:00 72 12/05/16 06:00 68 12/05/16 04:25 100 35 12/05/16 04:00 71 12/05/16 04:00 98.6 73 17 111/51 100 12/05/16 04:00 35 12/05/16 02:00 72 12/05/16 01:20 100 35 12/05/16 00:00 35 12/05/16 00:00 74 12/05/16 00:00 99.1 74 15 98/55 100 12/04/16 22:11 100 35 12/04/16 22:00 78 12/04/16 20:00 98 35 12/04/16 20:00 35 12/04/16 20:00 77 12/04/16 20:00 99.4 77 19 139/58 100 12/04/16 18:00 80 12/04/16 16:00 98.1 78 19 135/63 100 12/04/16 16:00 78 12/04/16 16:00 35 12/04/16 15:56 100 35 12/04/16 14:00 82 12/04/16 12:14 99 35 12/04/16 12:00 35 12/04/16 12:00 85 12/04/16 12:00 97.7 85 19 155/66 100 -: 12/05/16 0456 12/05/16 0436 Physical Exam General Appearance: Pale Neck Neck Remarks s/p trach Pulmonary Resp Exam: Decreased Bases Cardiology CV Exam: Regular Gastrointestinal/Abdomen GI Exam: Soft, Non-Tender Extremeties Extremities Exam: Moderate Edema Assessment/Plan Problem List: (1) Acute renal failure Plan: Patient has multiple issues and has malnutrition with poor albumin contributing to low oncotic pressure, ATN creatinine stable: 3.6 -> 3.5 -> 3.5 --> 3.4 --> 3.37 On Bumex 2 mg IV q12 - continue for now. Good UOP with 2.4 L/ 24 hours no meaningful recovery from CVA at this point Palliative care following. Apparently son would like to fly her to [facility] for stem cell treatment. Continue to follow goals of care. 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 Ongoing anemia, continue to monitor. getting PRBC on regular interval (2) Metabolic acidosis Plan: Stable, continue to monitor (3) Pneumonia Plan: On vent treated earlier with antibiotic (4) Urinary tract infection Plan: Escherichia coli she was treated (5) CVA (cerebral vascular accident) Plan: Massive stroke neurology following (6) Rhabdomyolysis Plan: This resolved (7) Hypernatremia Plan: Given 1L of DW over weekend improved Continue to monitor, repeat as necessary Problem Qualifiers (1) Acute renal failure: Qualified Code: N17.9 - Acute renal failure, unspecified acute renal failure type (2) CVA (cerebral vascular accident): Qualified Code: I63.9 - Cerebrovascular accident (CVA), unspecified mechanism (3) Rhabdomyolysis: Qualified Code: M62.82 - Non-traumatic rhabdomyolysis Kristel Zuniga MD Dec 05, 2016 11:54
[2016-12-05] MEDS: FREE WATER G-TUBE SCH ×3 (12:00→18:00)
--- NOTE | 2016-12-05 12:01 | HHI.GIFU ---
Subjective Remarks Resting in bed. NPO. Had a drop in hgb again. Aspirated small amount of partially digested blood- more red tint than yesterday. (Yoli Dickens) Objective Vitals I&O Vital Signs Date Time Temp Pulse Resp B/P Pulse Ox O2 Delivery O2 Flow Rate FiO2 12/05/16 11:36 100 35 12/05/16 10:00 76 12/05/16 08:30 100 35 12/05/16 08:27 35 12/05/16 08:00 35 12/05/16 08:00 98.3 72 15 103/45 100 12/05/16 08:00 72 12/05/16 06:00 68 12/05/16 04:25 100 35 12/05/16 04:00 71 12/05/16 04:00 98.6 73 17 111/51 100 12/05/16 04:00 35 12/05/16 02:00 72 12/05/16 01:20 100 35 12/05/16 00:00 35 12/05/16 00:00 74 12/05/16 00:00 99.1 74 15 98/55 100 12/04/16 22:11 100 35 12/04/16 22:00 78 12/04/16 20:00 98 35 12/04/16 20:00 35 12/04/16 20:00 77 12/04/16 20:00 99.4 77 19 139/58 100 12/04/16 18:00 80 12/04/16 16:00 98.1 78 19 135/63 100 12/04/16 16:00 78 12/04/16 16:00 35 12/04/16 15:56 100 35 12/04/16 14:00 82 12/04/16 12:14 99 35 12/04/16 12:00 35 12/04/16 12:00 85 12/04/16 12:00 97.7 85 19 155/66 100 I/O 12/04/16 12/04/16 12/04/16 12/05/16 12/05/16 12/05/16 07:00 15:00 23:00 07:00 15:00 23:00 Intake Total 1091 ml 1003 ml 520 ml 1021 ml Output Total 675 ml 1350 ml 1325 ml 775 ml Balance 416 ml -347 ml -805 ml 246 ml Intake Oral 0 ml IV Total 74 ml 81 ml 490 ml 421 ml Tube Feeding 0 ml 0 ml TPN/PPN 326 ml 339 ml Lipid 91 ml 83 ml Albumin 100 ml 100 ml Other 500 ml 500 ml 30 ml 500 ml Output Urine Total 575 ml 750 ml 1075 ml 650 ml Stool Total 100 ml 600 ml 250 ml 125 ml Laboratory Laboratory Tests Test 12/04/16 12/05/16 12/05/16 14:39 04:36 04:56 Hemoglobin 6.7 5.6 Hematocrit 20.2 16.7 Sodium Level 142 Potassium Level 3.2 Chloride Level 106 Carbon Dioxide Level 24.8 Anion Gap 11 Blood Urea Nitrogen 102 Creatinine 3.37 Estimat Glomerular Filtration 13 Rate Random Glucose 137 Calcium Level 8.1 Phosphorus Level 3.1 Magnesium Level 1.9 White Blood Count 3.7 Red Blood Count 1.89 Mean Corpuscular Volume 88.2 Mean Corpuscular Hemoglobin 29.5 Mean Corpuscular Hemoglobin 33.4 Concent Red Cell Distribution Width 17.1 Platelet Count 52 Mean Platelet Volume 9.4 Neutrophils (%) (Auto) Lymphocytes (%) (Auto) Monocytes (%) (Auto) Eosinophils (%) (Auto) Basophils (%) (Auto) Neutrophils # (Auto) Lymphocytes # (Auto) Monocytes # (Auto) Eosinophils # (Auto) Basophils # (Auto) CBC Comment AUTO DIFF Differential Total Cells 100 Counted Neutrophils % (Manual) 63 Band Neutrophils % 13 Lymphocytes % 11 Monocytes % 2 Eosinophils % 9 Basophils % 1 Neutrophils # (Manual) 2.8 Metamyelocytes 1 Nucleated Red Blood Cells 2 Differential Comment FINAL DIFF MANUAL Platelet Estimate LOW Platelet Morphology Comment NORMAL Polychromasia 2.4 Acanthocytes OCC Date/Time Procedure Status Source Growth 12/01/16 08:35 Stool Occult Blood ([facility]) - Final Complete Stool Stool HEMOCCULT POSITIVE Imaging Last Impressions Chest X-Ray 12/03/16 0600 Signed Impressions: Service Date/Time: Saturday, December 03, 2016 04:59 - CONCLUSION: Borderline cardiomegaly with diffuse consolidation which are clearly worse likely representing CHF. Some degree of left effusion needs to be considered. Jeffery Zhong MD Thoracentesis 12/01/16 0000 Signed Impressions: Service Date/Time: Thursday, December 01, 2016 18:56 - CONCLUSION: Uncomplicated CT-guided thoracentesis. Jeffery Alvarado MD Chest CT 12/01/16 0000 Signed Impressions: Service Date/Time: Thursday, December 01, 2016 13:09 - CONCLUSION: Bilateral pleural effusion, larger on the right than the left. Mack Cao MD FACR Abdomen/Pelvis CT 12/01/16 0000 Signed Impressions: Service Date/Time: Thursday, December 01, 2016 13:09 - CONCLUSION: 1. Right inguinal hernia containing only fluid. 2. Generalized anasarca. 3. Trace ascites. 4. Bilateral pleural effusions, larger on the right than the left. Mack Cao MD FACR Abdomen Ultrasound 11/27/16 0000 Signed Impressions: Service Date/Time: Sunday, November 27, 2016 08:35 - CONCLUSION: Stone in the neck of the gallbladder. Trace ascites and mild splenomegaly Jeffery Alvarado MD Gastrostomy Tube Placement 11/24/16 0000 Signed Impressions: Service Date/Time: Sunday, November 27, 2016 14:34 - CONCLUSION: Uncomplicated gastrostomy tube placement as above. Kirit Alcantar MD Head CT 11/08/16 1657 Signed Impressions: Service Date/Time: Tuesday, November 08, 2016 17:06 - CONCLUSION: Low density seen throughout the posterior circulation regions including the susan and midbrain, cerebellar hemispheres, occipital and posterior medial temporal lobes and right thalamus. This likely represents areas of infarction involving the posterior territory circulation. Jeffery Zhong MD Carotid Artery Ultrasound 11/08/16 0000 Signed Impressions: Service Date/Time: Tuesday, November 08, 2016 22:24 - CONCLUSION: Mild calcified plaque at the carotid bulbs. No evidence of hemodynamically significant carotid stenosis. José Luis Beltran MD Physical Exam HEENT: Normocephalic; atraumatic; no jaundice. CHEST: CTA, diminished CARDIAC: RRR ABDOMEN: Soft, nondistended, no hepatosplenomegaly; bowel sounds are present in all four quadrants. Melena in rectal bag. Aspirated small amount of dark red gastric secretions mixed in clear gastric secretions. EXTREMITIES: Generalized edema. SKIN: Generalized pallor PARA EDUCATOR: Sedated on vent (Yoli Dickens) Assessment and Plan Plan ASSESSMENT: - GIB/anemia with drop in hgb. 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 She has received 11 units of PRBC and one unit of Plt. HH 5.6/16.7. Plt 52. IR does not think patient is a candidate for embolization per Dr. Farnsworth. She has 2 units PRBC and 1 unit of platelets today. Attempted to call son Wyatt Crawford at to d/w him repeat EGD with control of bleeding. There was no answer and he does not have voice messaging set up. - Large gastric ulcer, multiple duodenal avms. S/P Ablation. Pt still with bleeding- old dark red gastric secretions, melanotic stool. Drop in hh. Protonix gtt. - Anemia secondary to acute blood loss. S/P 11 units PRBC. HH 5.6/16.7. 2 PRBC, 1 unit Plt ordered- not ready yet. - Dysphagia, FEN. Pt currently in ICU being treated for massive posterior circulation ischemic CVA and she remains in the ICU being treated for hypoxic respiratory failure, severe encephalopathy secondary to stroke, severe sepsis, HCAP with pleural effusion, and acute kidney injury. She is S/P tracheostomy. Had PEG tube placement by IR on 11/27. - Severe Encephalopathy/CVA. Per CCM - Resp. Failure, HCAP, Pleural effusion per CCM - BRIANA with electrolyte abnormalities. PLAN: - Possible repeat EGD- call placed to son, unable to reach - Obtain consents - Agree with transfusion. - NPO - Cont. Protonix Gtt - Monitor HH - Transfuse as necessary - Cont. TPN for now - Supportive care - Unable to have embolization by IR - Further recommendations to follow based on results of above - Pt seen and examined by Dr. Farnsworth and myself and this note is written on his behalf (Yoli Dickens) Physician Comments patient was seen and examined, HGB is lower, apparently patient son was giving her fish oil (may increase chance of bleeding). patient is not stable for EGD, continue medical management. poor prognosis. (Aguila Farnsworth MD) Yoli Dickens Dec 05, 2016 12:00 Aguila Farnsworth MD Dec 05, 2016 17:20
[2016-12-05 16:02] LABS: HEMATOCRIT 16.6 % (35.0-46.0); REVIEW FLAG FINAL
[2016-12-05] MEDS: FAT EMULSION 20% INJ 250 ML (@10 mls/hr) IV SCH (20:06)
[2016-12-05] MEDS: CLINIMIX 4.25/5 (Cust.Renal Periph) 1000 mL- </= 42 mls/hr IV SCH ×8 (20:06)
--- NOTE | 2016-12-05 20:36 | HHI.HCPN ---
Reason for visit a. To assist with evaluation and management of symptoms including: pain; dyspnea; encephalopathy b. To assist medical decision maker(s) with: better understanding of current medical conditions; weighing benefits/burdens of medical treatment options; making medical treatment decisions. . Subjective/Interval History 86 y/o female with devastating posterior circulation stroke, TRACH PLACED , PEG placed and thoracentesis by IR on 11/27/16. Patient seen and examined in ICU. Patient remains unresponsive except for decerebrate posturing with stimulation. She is on full ventilator supportit appears she was only on a CPAP trial for a number of minutes before discontinuing. Patient continues to have active bleeding as evidenced by her ongoing drop in hemoglobin and passage of large, tarry stools. Bleeding presumably is from either her gastric ulcer or her AV malformations seen on EGD of 12/02/16. I believe she has already received 11 units of packed red blood cells not including the 2 she is receiving today. Patient has been afebrile. Pulses stable. Blood pressure stable. Pulse oximetry remains 95-100 on the ventilator with FiO2 of 35. Urine output adequate. Tolerating tube feedings. Hemoglobin was down to 5.5 today. Chemistry showed potassium 3.2; BUN 102; creatinine 3.37; GFR 13; glucose 137. Albumin from 12/03/16 was 2.2. Chest x-ray from 12/03/16 showed borderline cardiomegaly with diffuse consolidations which are clearly worse likely representing CHF. The loose hand packer (Dr. Cartwright) and gastroeneterologist (Dr. Farnsworth) have called for a Bioethics Committee meeting on this case. . Family/friend interactions The patient's son, Wyatt, and the patient's sister are at the bedside. I spoke with Wyatt for approximately 20 minutes. We once again reviewed the patient's current situation. I let her know that we are unable to stop the bleeding at this time. I let him know that we transfuse her and in the hemoglobin drops shortly thereafter again. I reminded him that the stroke is been devastating. None of the physicians feel she has any hope for recovery other than the type of miracle that is equally likely to happen if we remove life support and transition her to comfort measures only. I let him know that continuing in the intensive care unit on machines makes sense when there is hope for recovery but in a case like his mothers, it is only serving to prolong and uncomfortable dying process. We talked about what his mother would want under the circumstances and how the majority of people would not want to put their loved ones through with Wyatt and his aunt are now going through. Wyatt confirmed how hard this has been for him and how we finds himself unable to sleep. He is very concerned about the well-being of his aunt. He claims that his aunt is the one who insists on ongoing life support. He is concerned what will happen for her if his mother dies. I offered to meet with his aunt with interpreters to explain the situation to her and offer support for her. Wyatt claims he doesn't need that because he is explained everything to her already. I told Wyatt that medical team members have requested a bioethics meeting to review the case with him. I let him know there were concerns expressed by medical team members as the case was appearing futile and ongoing aggressive care in the intensive care unit just meant we were doing uncomfortable things to the patient with no hope of recovery. I explained were also concerns that the patient had identified herself as a Caodaism and she was now receiving multiple blood transfusions. I explained that if Wyatt clearly thought his mother wanted all this, then it was important he attended a bioethics committee meeting and explained to the medical team why this is so. He asked if he could do this by telephone and I let him know that coming in person would be much better. I explained I would be there and could support him. I asked him what times between 8 AM and 5 PM might work for him so we could arrange to bring the committee members together. Wyatt said that before planning the meeting, he wanted to speak to his aunt again. He also told me that his mother was not "devout" in terms of her Jehovah 's [employer] belief and the blood transfusions should not be of concern. I told him I would check in with him again tomorrow. . Advance Directives Living Will: Never completed Health Care Surrogate: Never completed Durable Power of Vp Software: Never completed Advance Directive Specifics Date completed: Advance directives were never completed . Health Care Surrogate(s): There is no known written designation of health care surrogate . Documented care wishes: There is no written documentation of health care goals/preferences. . Objective Vital Signs Date Time Temp Pulse Resp B/P Pulse Ox O2 Delivery O2 Flow Rate FiO2 12/05/16 18:00 98 12/05/16 17:21 100 35 12/05/16 16:00 100 12/05/16 16:00 35 12/05/16 16:00 99.0 95 15 113/56 96 12/05/16 14:00 91 12/05/16 12:00 91 12/05/16 12:00 98.0 81 15 107/50 100 12/05/16 12:00 35 12/05/16 11:36 100 35 12/05/16 10:00 76 12/05/16 08:30 100 35 12/05/16 08:27 35 12/05/16 08:00 35 12/05/16 08:00 98.3 72 15 103/45 100 12/05/16 08:00 72 12/05/16 06:00 68 12/05/16 04:25 100 35 12/05/16 04:00 71 12/05/16 04:00 98.6 73 17 111/51 100 12/05/16 04:00 35 12/05/16 02:00 72 12/05/16 01:20 100 35 12/05/16 00:00 35 12/05/16 00:00 74 12/05/16 00:00 99.1 74 15 98/55 100 12/04/16 22:11 100 35 12/04/16 22:00 78 12/04/16 20:00 98 35 12/04/16 20:00 35 12/04/16 20:00 77 12/04/16 20:00 99.4 77 19 139/58 100 Intake & Output 12/05/16 12/05/16 07:00 19:00 Intake Total 1541 ml 728 ml Output Total 2100 ml 1500 ml Balance -559 ml -772 ml Intake Oral 0 ml IV Total 911 ml 148 ml Tube Feeding 0 ml TPN/PPN 469 ml Lipid 111 ml Albumin 100 ml Other 530 ml Output Urine Total 1725 ml 1500 ml Stool Total 375 ml . Physical Exam CONSTITUTIONAL/GENERAL: This is an adequately nourished patient, trached, mechanically ventilated; in an MICU bed. Responsiveness limited to decerebrate posturing with noxious stimuli. TUBES/LINES/DRAINS: trach, PEG tube, Tejeda catheter; peripheral IVs; dressing LE, podus boots. CARDIOVASCULAR: Regular rate and rhythm. RESPIRATORY/CHEST: Symmetric, unlabored respirations. Breath sounds equal bilaterally. Coarse breath sounds bilaterally. No wheezes, rales. GASTROINTESTINAL: Abdomen soft, non-tender, nondistended. No hepato-splenomegaly , or palpable masses. No guarding. GENITOURINARY: Without palpable bladder distension. Tejeda catheter in place. MUSCULOSKELETAL: Extremities with edema. No mottling. NEUROLOGICAL: Does not awaken to loud voice or exam. Unable to follow commands. Decerebrate posturing to noxious stimuli. PSYCHIATRIC: Unable to evaluate due to level of responsiveness. . Diagnostic Tests Laboratory Laboratory Tests Test 12/03/16 12/03/16 12/03/16 12/04/16 03:59 08:50 16:52 03:21 White Blood Count 4.3 TH/MM3 4.3 TH/MM3 4.6 TH/MM3 (4.0-11.0) (4.0-11.0) (4.0-11.0) Red Blood Count 2.11 MIL/MM3 2.58 MIL/MM3 2.68 MIL/MM3 (4.00-5.30) (4.00-5.30) (4.00-5.30) Hemoglobin 6.1 GM/DL 7.4 GM/DL 7.7 GM/DL (11.6-15.3) (11.6-15.3) (11.6-15.3) Hematocrit 18.0 % 22.5 % 23.2 % (35.0-46.0) (35.0-46.0) (35.0-46.0) Mean Corpuscular Volume 85.3 FL 87.1 FL 86.6 FL (80.0-100.0) (80.0-100.0) (80.0-100.0) Mean Corpuscular Hemoglobin 28.8 PG 28.9 PG 28.9 PG (27.0-34.0) (27.0-34.0) (27.0-34.0) Mean Corpuscular Hemoglobin 33.8 % 33.1 % 33.3 % Concent (32.0-36.0) (32.0-36.0) (32.0-36.0) Red Cell Distribution Width 16.9 % 16.1 % 16.5 % (11.6-17.2) (11.6-17.2) (11.6-17.2) Platelet Count 38 TH/MM3 32 TH/MM3 55 TH/MM3 (150-450) (150-450) (150-450) Mean Platelet Volume 9.3 FL 9.3 FL 9.8 FL (7.0-11.0) (7.0-11.0) (7.0-11.0) Neutrophils (%) (Auto) 67.1 % 68.6 % (16.0-70.0) (16.0-70.0) Lymphocytes (%) (Auto) 12.3 % 12.7 % (9.0-44.0) (9.0-44.0) Monocytes (%) (Auto) 8.0 % (0.0-8.0) 7.5 % (0.0-8.0) Eosinophils (%) (Auto) 12.2 % 10.8 % (0.0-4.0) (0.0-4.0) Basophils (%) (Auto) 0.4 % (0.0-2.0) 0.4 % (0.0-2.0) Neutrophils # (Auto) 2.9 TH/MM3 3.2 TH/MM3 (1.8-7.7) (1.8-7.7) Lymphocytes # (Auto) 0.5 TH/MM3 0.6 TH/MM3 (1.0-4.8) (1.0-4.8) Monocytes # (Auto) 0.3 TH/MM3 0.3 TH/MM3 (0-0.9) (0-0.9) Eosinophils # (Auto) 0.5 TH/MM3 0.5 TH/MM3 (0-0.4) (0-0.4) Basophils # (Auto) 0.0 TH/MM3 0.0 TH/MM3 (0-0.2) (0-0.2) CBC Comment AUTO DIFF AUTO DIFF Differential Total Cells 100 100 Counted Neutrophils % (Manual) 52 % (16-70) 57 % (16-70) Band Neutrophils % 10 % (0-6) 15 % (0-6) Lymphocytes % 15 % (9-44) 11 % (9-44) Monocytes % 11 % (0-8) 3 % (0-8) Eosinophils % 11 % (0-4) 12 % (0-4) Neutrophils # (Manual) 2.7 TH/MM3 3.4 TH/MM3 (1.8-7.7) (1.8-7.7) Myelocytes 1 % (0-0) Differential Comment FINAL DIFF FINAL DIFF MANUAL MANUAL Platelet Estimate LOW (NORMAL) LOW (NORMAL) Platelet Morphology Comment NORMAL NORMAL (NORMAL) (NORMAL) Polychromasia 2.0 % (0.0-1.9) 3.2 % (0.0-1.9) Hematology Comments Sodium Level 144 MEQ/L 143 MEQ/L (136-145) (136-145) Potassium Level 3.9 MEQ/L 4.1 MEQ/L (3.5-5.1) (3.5-5.1) Chloride Level 111 MEQ/L 108 MEQ/L (98-107) (98-107) Carbon Dioxide Level 21.4 MEQ/L 24.6 MEQ/L (21.0-32.0) (21.0-32.0) Anion Gap 12 MEQ/L (5-15) 10 MEQ/L (5-15) Blood Urea Nitrogen 82 MG/DL (7-18) 88 MG/DL (7-18) Creatinine 3.54 MG/DL 3.44 MG/DL (0.50-1.00) (0.50-1.00) Estimat Glomerular Filtration 12 ML/MIN (>89) 13 ML/MIN (>89) Rate Random Glucose 129 MG/DL 135 MG/DL (74-106) (74-106) Calcium Level 7.7 MG/DL 7.7 MG/DL (8.5-10.1) (8.5-10.1) Phosphorus Level 3.6 MG/DL 3.9 MG/DL (2.5-4.9) (2.5-4.9) Magnesium Level 2.0 MG/DL 1.8 MG/DL (1.5-2.5) (1.5-2.5) Total Bilirubin 0.4 MG/DL (0.2-1.0) Direct Bilirubin 0.2 MG/DL (0.0-0.2) Indirect Bilirubin 0.2 MG/DL (0.0-0.8) Aspartate Amino Transf 38 U/L (15-37) (AST/SGOT) Alanine Aminotransferase 8 U/L (10-53) (ALT/SGPT) Alkaline Phosphatase 62 U/L (45-117) Total Protein 4.3 GM/DL (6.4-8.2) Albumin 2.2 GM/DL (3.4-5.0) Blood Type O POSITIVE Crossmatch Leukocyte-Reduced Red Blood Cells Blood Bank Comment Prothrombin Time 166.4 SEC 14.3 SEC (9.8-11.6) (9.8-11.6) Prothromb Time International 13.5 RATIO 1.3 RATIO Ratio Basophils % 1 % (0-2) Metamyelocytes 1 % (0-1) Nucleated Red Blood Cells 2 /100 WBC (0-0) Test 12/04/16 12/05/16 12/05/16 12/05/16 14:39 04:36 04:56 11:27 Hemoglobin 6.7 GM/DL 5.6 GM/DL (11.6-15.3) (11.6-15.3) Hematocrit 20.2 % 16.7 % (35.0-46.0) (35.0-46.0) Sodium Level 142 MEQ/L (136-145) Potassium Level 3.2 MEQ/L (3.5-5.1) Chloride Level 106 MEQ/L (98-107) Carbon Dioxide Level 24.8 MEQ/L (21.0-32.0) Anion Gap 11 MEQ/L (5-15) Blood Urea Nitrogen 102 MG/DL (7-18) Creatinine 3.37 MG/DL (0.50-1.00) Estimat Glomerular Filtration 13 ML/MIN (>89) Rate Random Glucose 137 MG/DL (74-106) Calcium Level 8.1 MG/DL (8.5-10.1) Phosphorus Level 3.1 MG/DL (2.5-4.9) Magnesium Level 1.9 MG/DL (1.5-2.5) White Blood Count 3.7 TH/MM3 (4.0-11.0) Red Blood Count 1.89 MIL/MM3 (4.00-5.30) Mean Corpuscular Volume 88.2 FL (80.0-100.0) Mean Corpuscular Hemoglobin 29.5 PG (27.0-34.0) Mean Corpuscular Hemoglobin 33.4 % Concent (32.0-36.0) Red Cell Distribution Width 17.1 % (11.6-17.2) Platelet Count 52 TH/MM3 (150-450) Mean Platelet Volume 9.4 FL (7.0-11.0) Neutrophils (%) (Auto) % (16.0-70.0) Lymphocytes (%) (Auto) % (9.0-44.0) Monocytes (%) (Auto) % (0.0-8.0) Eosinophils (%) (Auto) % (0.0-4.0) Basophils (%) (Auto) % (0.0-2.0) Neutrophils # (Auto) TH/MM3 (1.8-7.7) Lymphocytes # (Auto) TH/MM3 (1.0-4.8) Monocytes # (Auto) TH/MM3 (0-0.9) Eosinophils # (Auto) TH/MM3 (0-0.4) Basophils # (Auto) TH/MM3 (0-0.2) CBC Comment AUTO DIFF Differential Total Cells 100 Counted Neutrophils % (Manual) 63 % (16-70) Band Neutrophils % 13 % (0-6) Lymphocytes % 11 % (9-44) Monocytes % 2 % (0-8) Eosinophils % 9 % (0-4) Basophils % 1 % (0-2) Neutrophils # (Manual) 2.8 TH/MM3 (1.8-7.7) Metamyelocytes 1 % (0-1) Nucleated Red Blood Cells 2 /100 WBC (0-0) Differential Comment FINAL DIFF MANUAL Platelet Estimate LOW (NORMAL) Platelet Morphology Comment NORMAL (NORMAL) Polychromasia 2.4 % (0.0-1.9) Acanthocytes OCC (NORMAL) Blood Type O POSITIVE Antibody Screen POSITIVE Crossmatch Leukocyte-Reduced Red Blood Cells Blood Bank Comment Test 12/05/16 15:55 Hemoglobin 5.5 GM/DL (11.6-15.3) Hematocrit 16.6 % (35.0-46.0) . Result Diagram: 12/05/16 8040 12/05/16 9365 Microbiology * No positive cultures since the urine positive for Escherichia coli and Brionna on 11/18/16. . Imaging Last Impressions Chest X-Ray 12/03/16 0600 Signed Impressions: Service Date/Time: Saturday, December 03, 2016 04:59 - CONCLUSION: Borderline cardiomegaly with diffuse consolidation which are clearly worse likely representing CHF. Some degree of left effusion needs to be considered. Jeffery Zhong MD Thoracentesis 12/01/16 0000 Signed Impressions: Service Date/Time: Thursday, December 01, 2016 18:56 - CONCLUSION: Uncomplicated CT-guided thoracentesis. Jeffery Alvarado MD Chest CT 12/01/16 0000 Signed Impressions: Service Date/Time: Thursday, December 01, 2016 13:09 - CONCLUSION: Bilateral pleural effusion, larger on the right than the left. Mack Cao MD FACR Abdomen/Pelvis CT 12/01/16 0000 Signed Impressions: Service Date/Time: Thursday, December 01, 2016 13:09 - CONCLUSION: 1. Right inguinal hernia containing only fluid. 2. Generalized anasarca. 3. Trace ascites. 4. Bilateral pleural effusions, larger on the right than the left. Mack Cao MD FACR Abdomen Ultrasound 11/27/16 0000 Signed Impressions: Service Date/Time: Sunday, November 27, 2016 08:35 - CONCLUSION: Stone in the neck of the gallbladder. Trace ascites and mild splenomegaly Jeffery Alvarado MD Gastrostomy Tube Placement 11/24/16 0000 Signed Impressions: Service Date/Time: Sunday, November 27, 2016 14:34 - CONCLUSION: Uncomplicated gastrostomy tube placement as above. Kirit Alcantar MD Head CT 11/08/16 1657 Signed Impressions: Service Date/Time: Tuesday, November 08, 2016 17:06 - CONCLUSION: Low density seen throughout the posterior circulation regions including the susan and midbrain, cerebellar hemispheres, occipital and posterior medial temporal lobes and right thalamus. This likely represents areas of infarction involving the posterior territory circulation. Jeffery Zhong MD Carotid Artery Ultrasound 11/08/16 0000 Signed Impressions: Service Date/Time: Tuesday, November 08, 2016 22:24 - CONCLUSION: Mild calcified plaque at the carotid bulbs. No evidence of hemodynamically significant carotid stenosis. José Luis Beltran MD . Procedures * Intubation/mechanical ventilation * Trach 11/23/16 * PEG tube placement * EGD 12/02/16 . . Assessment and Plan Disease Oriented Problem List: (1) CVA (cerebral vascular accident) Comment: Very large posterior circulation stroke. No signs of neurological recovery. Prognosis grim. . . (2) Rhabdomyolysis (3) Dementia Comment: Family reports at least a 7 year history of dementia. . (4) Thrombocytopenia (5) Malnutrition Comment: Presenting albumin level was 2.8 . (6) Anemia (7) Urinary tract infection Comment: Cx of 11/08 --> E coli and Enterococcus . (8) Pneumonia Comment: Sputum cx of 11/12 growing Staph aureus. . (9) Gastrointestinal hemorrhage Comment: EGD on 12/02/16 revealed a gastric ulcer and multiple duodenal AVMs. In spite of attempts to cauterize these via EGD, patient continues to bleed and pass melanotic stools. Multiple transfusions have been provided. . Symptom Scale: (1) Pain 0-10 Scale: Unable to quantify Comment: Patient had no known prior pain syndromes. Current possible sources of pain include prolonged bedbound status; vascular access catheters; Tejeda catheter. . (2) Dyspnea 0-10 Scale: Unable to quantify Comment: Dyspnea currently controlled with mechanical ventilation. . (3) Encephalopathy 0-10 Scale: Unable to quantify Comment: Patient was minimally responsive on arrival. No evidence of neurologic recovery. Her only response now is decerebrate posturing with stimulation. Off all sedation. . Pertinent Non-Medical Issues Psychosocial: Normally lives with her sister. Her son lives by visits frequently. Spiritual: Patient is a Caodaism. The patient's son, Wyatt, has consented to multiple blood transfusions now telling us that the patient was not "devout" in terms of her believes as a Caodaism. Legal: No advance directives. Son would be the appropriate proxy health care decision-maker under the [place] statutes hierarchy. Ethical issues impacting care: Patient is incapacitated to make her own health care decisions and is not expected to regain such capacity. Patient's care is deemed to be futile per the vast majority of medical team members. There are concerns that ongoing aggressive care will only serve to prolong and uncomfortable dying process. . . Important Contacts Wyatt Crawford (son and healthcare proxy) [phone] . Prognosis This is an 86-year-old female who was suffered a fairly massive posterior circulation stroke. This is on top of at least a seven-year history of dementia with the patient was already requiring assistance with most of her ADLs. There is a high risk of during this hospitalization. Should she survive, she will not have meaningful interaction with her environment. In spite of bleak prognosis, the patient's son has insisted on ongoing aggressive care. The patient has managed to remain alive but there is been no evidence of neurologic recovery. She is unresponsive except for decerebrate posturing with stimulation. She now is actively GI bleeding from a combination of a gastric ulcer and multiple duodenal AVMs. She has received multiple transfusions. It does not appear we will be able to stop this bleeding. The patient would certainly be eligible for hospice services at such time that family believes the patient's goals would best be honored by transitioning to "comfort measures only." . . Code Status: Full Code Plan * FULL CODE: The patient's son changed his mind and asked that she be transitioned back to FULL CODE STATUS on 12/03/16 * DECISION-MAKING: The patient lacks capacity for decision-making, and she will not regain capacity. Her son, Wyatt Crawford, is the legal health care proxy. * GOALS: The patient is a Caodaism. The son indicates now that she has not been devout and that is why he has agreed to multiple blood transfusions. Son has continued to ask for ongoing aggressive care and patient has now undergone both trach and PEG. * SYMPTOMS: It is difficult to know when she has pain or dyspnea, and we will continue to observe closely for signs of suffering. Certainly her bedbound status and recent procedures could be painful. No new med recommendations at this time. * Drs. Cartwright and Javad have requested a meeting of the bioethics committee to discuss this case. I informed the son about this development and let him know I would like him to attend to explain to medical team members why he believes his mother would want ongoing aggressive care given the conversations he has had with the physicians. Please see my more detailed notes about this discussion above. Will try and work out details of the meeting where we can get Wyatt and the physicians to attend. * Palliative care will continue to follow to assist with symptom management and to help clarify goals of medical treatment as the clinical course evolves. * . . Time Spent Total Floor Time (mins): 40 (Total time included chart review, patient examination, phone conversation with Dr. Cartwright regarding the need for bioethics committee meeting; phone conversation with the gastroenterology nurse practitioner; above-referenced conference with the patient's son; and documentation.) Face to Face Time (mins): 10 >50% Counseling/Coord of Care: Yes Attestation To help prompt me to consider important information that might be impacting today's encounter and assessment, information from prior notes written by myself or my colleagues may have been "brought forward" into today's note. My signature on this note, however, is an attestation that I personally performed the exam, history, and/or decision-making noted today, and, unless otherwise indicated, the interactions with patient, family, and staff as well as the review of records all occurred today. I also attest that the listed assessment and stated plan reflect my best clinical judgment today based on the combination of historical information, prior notes, and today's exam/ interactions. When time spent is documented, it refers only to time spent today by the signer, or if indicated, combined time spent today by collaborating physician/nurse practitioner. . Karlos Bauer MD Dec 05, 2016 20:36
[2016-12-06] VITALS (18 sets, daily range): BP systolic 100–132; BP diastolic 53–67; PULSE 74–97; RESP 13–20; TEMP 98.1–100.3; O2SAT 95–100
[2016-12-06] MEDS: HIGH DOSE INSULIN NOVOLIN REGULAR SUPPLEMENTAL SCALE SQ SCH ×6 (00:20→20:30)
[2016-12-06] MEDS: PANTOPRAZOLE INJ 80 MG in SODIUM CHLORIDE 0.9% INJ 100 ML IV SCH ×3 (02:37→22:49)
[2016-12-06] MEDS: ALBUMIN HUMAN 25% 25 GM/100 ML BAGP IV SCH ×2 (02:37→15:47)
[2016-12-06] MEDS: CHLORHEXIDINE GLUCONATE 2 % 1 PACK (2 CLOTHS) TOP SCH (04:00)
[2016-12-06] MEDS: FREE WATER G-TUBE SCH ×4 (06:00→17:25)
[2016-12-06] MEDS: EPOETIN ALFA 10,000 UNITS/ML VIAL SQ SCH (06:16)
[2016-12-06 06:53] LABS: INTERNATIONAL NORMALIZED RATIO 1.3 RATIO; PROTHROMBIN TIME - PATIENT 14.5 SEC (9.8-11.6)
[2016-12-06 07:09] LABS: MEAN CELL VOLUME 90.4 FL (80.0-100.0); MEAN CORPUSCULAR HEMOGLOBIN 30.5 PG (27.0-34.0); MEAN CORPUSCULAR HGB CONC 33.8 % (32.0-36.0); PLATELET COUNT 66 TH/MM3 (150-450); RED CELL DISTRIBUTION WIDTH 15.4 % (11.6-17.2)
[2016-12-06] MEDS: CHLORHEXIDINE 0.12% (ORAL KIT) 15 ML CUP MT SCH ×2 (07:25→19:47)
[2016-12-06 07:40] LABS: REVIEW FLAG FINAL
[2016-12-06 07:42] LABS: HEMATOCRIT 20.8 % (35.0-46.0)
[2016-12-06] MEDS: ARTIFICIAL TEARS OPTH SOLN 15 ML BTL EACH EYE SCH ×3 (09:00→17:25)
[2016-12-06] MEDS: SODIUM CHLORIDE 0.9% FLUSH 5 ML FLUSH IV FLUSH SCH ×2 (09:00→20:30)
[2016-12-06] MEDS: BUMETANIDE INJ 1 MG/4 ML VIAL IV PUSH SCH ×2 (09:25→17:27)
[2016-12-06] MEDS: FERROUS SULFATE 300 MG /5ML UDC PO SCH ×2 (09:25→20:30)
--- NOTE | 2016-12-06 10:39 | HHI.NPPN ---
Subjective History of Present Illness 86 year old with CVA, Resp failure s/p Trach/ PEG Additional Remarks Remains intubated, ongoing anemia. Review of Systems General Constitutional: Fatigue Objective Data Data 12/05/16 12/06/16 19:00 07:00 Intake Total 728 ml 2464 ml Output Total 1500 ml 2315 ml Balance -772 ml 149 ml Intake Oral 0 ml IV Total 148 ml 1214 ml TPN/PPN 469 ml Lipid 111 ml Albumin 100 ml Packed Cells 620 ml Other 530 ml Output Urine Total 1500 ml 2000 ml Stool Total 315 ml Vital Signs Date Time Temp Pulse Resp B/P Pulse Ox O2 Delivery O2 Flow Rate FiO2 12/06/16 10:00 87 12/06/16 09:10 95 30 12/06/16 09:10 30 12/06/16 08:00 98.1 74 20 107/53 97 12/06/16 08:00 76 12/06/16 08:00 30 12/06/16 06:00 78 12/06/16 04:08 97 30 12/06/16 04:00 30 12/06/16 04:00 80 12/06/16 04:00 99.5 80 16 116/55 100 12/06/16 02:00 83 12/06/16 00:27 99 35 12/06/16 00:00 100.3 91 18 132/53 99 12/06/16 00:00 91 12/06/16 00:00 30 12/05/16 22:25 100.2 93 17 121/56 100 12/05/16 22:00 93 12/05/16 21:35 100 35 12/05/16 20:00 35 12/05/16 20:00 100.8 97 15 116/53 99 12/05/16 20:00 97 12/05/16 18:00 98 12/05/16 17:21 100 35 12/05/16 16:00 100 12/05/16 16:00 35 12/05/16 16:00 99.0 95 15 113/56 96 12/05/16 14:00 91 12/05/16 12:00 91 12/05/16 12:00 98.0 81 15 107/50 100 12/05/16 12:00 35 12/05/16 11:36 100 35 -: 12/06/16 0545 12/05/16 0436 Physical Exam General Appearance: Pale Neck Neck Remarks s/p trach Pulmonary Resp Exam: Decreased Bases Cardiology CV Exam: Regular Gastrointestinal/Abdomen GI Exam: Soft, Non-Tender Extremeties Extremities Exam: Moderate Edema Assessment/Plan Problem List: (1) Acute renal failure Plan: Patient has multiple issues and has malnutrition with poor albumin contributing to low oncotic pressure, ATN creatinine stable: 3.6 -> 3.5 -> 3.5 --> 3.4 --> 3.37 On Bumex 2 mg IV q12 - continue for now. Good UOP with 3.5 L/ 24 hours replace K no meaningful recovery from CVA at this point Palliative care following. Apparently son would like to fly her to [place] for stem cell treatment. Continue to follow goals of care. 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 Ongoing anemia, continue to monitor. getting PRBC on regular interval agree with Palliative care ethics meeting with son as futile care with hopeless situation and no chance of meaningful recovery (2) Metabolic acidosis Plan: Stable, continue to monitor (3) Pneumonia Plan: On vent treated earlier with antibiotic (4) Urinary tract infection Plan: Escherichia coli she was treated (5) CVA (cerebral vascular accident) Plan: Massive stroke neurology following (6) Rhabdomyolysis Plan: This resolved (7) Hypernatremia Plan: Given 1L of DW over weekend improved Continue to monitor, repeat as necessary Problem Qualifiers (1) Acute renal failure: Qualified Code: N17.9 - Acute renal failure, unspecified acute renal failure type (2) CVA (cerebral vascular accident): Qualified Code: I63.9 - Cerebrovascular accident (CVA), unspecified mechanism (3) Rhabdomyolysis: Qualified Code: M62.82 - Non-traumatic rhabdomyolysis Kristel Zuniga MD Dec 06, 2016 10:39
[2016-12-06] MEDS ORDERED: POTASSIUM CHLOR 20 MEQ PREMIX 100 ML IV ONE (11:00)
--- NOTE | 2016-12-06 11:45 | HHI.GIFU ---
Subjective Remarks Pt on vent. Per nurse still having maroon stools, had 2 units blood 12/03, son has been putting fish oil in PEG tube. Objective Vitals I&O Vital Signs Date Time Temp Pulse Resp B/P Pulse Ox O2 Delivery O2 Flow Rate FiO2 12/06/16 10:00 87 12/06/16 09:10 95 30 12/06/16 09:10 30 12/06/16 08:00 98.1 74 20 107/53 97 12/06/16 08:00 76 12/06/16 08:00 30 12/06/16 06:00 78 12/06/16 04:08 97 30 12/06/16 04:00 30 12/06/16 04:00 80 12/06/16 04:00 99.5 80 16 116/55 100 12/06/16 02:00 83 12/06/16 00:27 99 35 12/06/16 00:00 100.3 91 18 132/53 99 12/06/16 00:00 91 12/06/16 00:00 30 12/05/16 22:25 100.2 93 17 121/56 100 12/05/16 22:00 93 12/05/16 21:35 100 35 12/05/16 20:00 35 12/05/16 20:00 100.8 97 15 116/53 99 12/05/16 20:00 97 12/05/16 18:00 98 12/05/16 17:21 100 35 12/05/16 16:00 100 12/05/16 16:00 35 12/05/16 16:00 99.0 95 15 113/56 96 12/05/16 14:00 91 12/05/16 12:00 91 12/05/16 12:00 98.0 81 15 107/50 100 12/05/16 12:00 35 I/O 12/05/16 12/05/16 12/05/16 12/06/16 12/06/16 12/06/16 07:00 15:00 23:00 07:00 15:00 23:00 Intake Total 1021 ml 728 ml 1039 ml 1425 ml Output Total 775 ml 1500 ml 1175 ml 1140 ml Balance 246 ml -772 ml -136 ml 285 ml Intake Oral 0 ml 0 ml IV Total 421 ml 148 ml 389 ml 825 ml TPN/PPN 469 ml Lipid 111 ml Albumin 100 ml 100 ml Packed Cells 620 ml Other 500 ml 30 ml 500 ml Output Urine Total 650 ml 1500 ml 1000 ml 1000 ml Stool Total 125 ml 175 ml 140 ml Laboratory Laboratory Tests Test 12/05/16 12/06/16 15:55 05:45 Hemoglobin 5.5 7.0 Hematocrit 16.6 20.8 White Blood Count 6.0 Red Blood Count 2.30 Mean Corpuscular Volume 90.4 Mean Corpuscular Hemoglobin 30.5 Mean Corpuscular Hemoglobin 33.8 Concent Red Cell Distribution Width 15.4 Platelet Count 66 Mean Platelet Volume 8.9 Prothrombin Time 14.5 Prothromb Time International 1.3 Ratio Imaging Last Impressions Chest X-Ray 12/03/16 0600 Signed Impressions: Service Date/Time: Saturday, December 03, 2016 04:59 - CONCLUSION: Borderline cardiomegaly with diffuse consolidation which are clearly worse likely representing CHF. Some degree of left effusion needs to be considered. Jeffery Zhong MD Thoracentesis 12/01/16 0000 Signed Impressions: Service Date/Time: Thursday, December 01, 2016 18:56 - CONCLUSION: Uncomplicated CT-guided thoracentesis. Jeffery Alvarado MD Chest CT 12/01/16 0000 Signed Impressions: Service Date/Time: Thursday, December 01, 2016 13:09 - CONCLUSION: Bilateral pleural effusion, larger on the right than the left. Mack Cao MD FACR Abdomen/Pelvis CT 12/01/16 0000 Signed Impressions: Service Date/Time: Thursday, December 01, 2016 13:09 - CONCLUSION: 1. Right inguinal hernia containing only fluid. 2. Generalized anasarca. 3. Trace ascites. 4. Bilateral pleural effusions, larger on the right than the left. Mack Cao MD FACR Abdomen Ultrasound 11/27/16 0000 Signed Impressions: Service Date/Time: Sunday, November 27, 2016 08:35 - CONCLUSION: Stone in the neck of the gallbladder. Trace ascites and mild splenomegaly Jeffery Alvarado MD Gastrostomy Tube Placement 11/24/16 0000 Signed Impressions: Service Date/Time: Sunday, November 27, 2016 14:34 - CONCLUSION: Uncomplicated gastrostomy tube placement as above. Kirit Alcantar MD Head CT 11/08/16 1657 Signed Impressions: Service Date/Time: Tuesday, November 08, 2016 17:06 - CONCLUSION: Low density seen throughout the posterior circulation regions including the susan and midbrain, cerebellar hemispheres, occipital and posterior medial temporal lobes and right thalamus. This likely represents areas of infarction involving the posterior territory circulation. Jeffery Zhong MD Carotid Artery Ultrasound 11/08/16 0000 Signed Impressions: Service Date/Time: Tuesday, November 08, 2016 22:24 - CONCLUSION: Mild calcified plaque at the carotid bulbs. No evidence of hemodynamically significant carotid stenosis. José Luis Beltran MD Physical Exam HEENT: Normocephalic; atraumatic; no jaundice. CHEST: congested CARDIAC: RRR ABDOMEN: Soft, nondistended, no hepatosplenomegaly; bowel sounds are present in all four quadrants. Melena in rectal bag. EXTREMITIES: Generalized edema. 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 HH 7.0, 20.8 today. 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 She has received 11 units of PRBC and one unit of Plt. HH 5.6/16.7. Plt 52. IR does not think patient is a candidate for embolization per Dr. Farnsworth. - Large gastric ulcer, multiple duodenal avms. S/P Ablation. Pt still with bleeding- old dark red gastric secretions, melanotic stool. Drop in hh. Protonix gtt. - Anemia secondary to acute blood loss. S/P 11 units PRBC, 1 PLT. HH 7.0, 20.8 - Dysphagia, FEN. Pt currently in ICU being treated for massive posterior circulation ischemic CVA and she remains in the ICU being treated for hypoxic respiratory failure, severe encephalopathy secondary to stroke, severe sepsis, HCAP with pleural effusion, and acute kidney injury. She is S/P tracheostomy. Had PEG tube placement by IR on 11/27. - Severe Encephalopathy/CVA. Per CCM - Resp. Failure, HCAP, Pleural effusion per CCM - BRIANA with electrolyte abnormalities. PLAN: - supportive care - Cont. Protonix Gtt - Monitor HH - Transfuse as necessary - Cont. TPN for now - Unable to have embolization by IR - Pt seen and examined by Dr. Farnsworth and myself and this note is written on his behalf Danielle Gilliland Dec 06, 2016 11:45
--- NOTE | 2016-12-06 13:52 | HHI.CCPN ---
Subjective Remarks/Hospital Course This is an 86yF with per report no other past medical history who presented to the ER after she was found unresponsive in her bed. According to ER reports, her family saw her normal last night when she had a fall, with unknown LOC. At that point, he helped her back to bed. However, this morning she did not wake up. On arrival to the ER, she was unresponsive only withdrawing to pain. she was intubated for airway protection and a poor GCS. CT head demonstrated massive posterior-circulation ischemic stroke. The patient is currently intubated and unresponsive and cannot provide any additional history. 11/09: No acute changes overnight. Palliative care team has consult with the family regarding goals of care. Currently the patient's sedation fentanyl infusion has been turned off without any response from patient. The patient notably does withdrawal to pain. 11/10: No change in neurological status. [id number]. The patient withdraws to pain 4 extremities. The patient currently on no sedation, fentanyl infusion discontinued yesterday. Tube feeds were initiated. The patient's urine culture grew back Escherichia coli, the patient was started on antibiotics. Extensive discussion with son regarding patient's neurological status, son Wyatt has had extensive discussion with palliative care.The son feels that yesterday when the patient was spoken to in Bulgarian the patient squeezed his hand and desires aggressive treatment. The patient's neuro status is unchanged, totally unresponsive with occasional reflexive twitching of feet B/L. Follow-up with neurology Dr. Pack, guarding any further imaging studies. 11/13: No change in neuro exam. Palliative care following. Family wanting full aggressive care. Palliative care will address early trach PEG 11/14: No improvement in neuro status. Son has not made decisions regarding trach and PEG. Apparently he wants to wait longer to see any improvement 11/15: Remains unresponsive. Neuro exam with extensor posturing-unchanged. Son requesting aggressive care. Continues to have low-grade fever 11/16: Clinically no improvement. Tolerates CPAP. Unable to extubate as patient will not protect airway 11/17: Tolerating C Pap but no change in neuro exam. Hemoglobin noted to be 6.8 hemodynamically stable 11/18: Became tachycardic and hypotensive early a.m., placed on assist control. Otherwise neuro exam remains unchanged 11/19: Continues to spike fever Tmax 102, started on vancomycin and cefepime in addition to Levaquin yesterday. Currently only low-grade fever. Received 2 units of blood for hemoglobin of 5.3. CBC pending at this time. No improvement in neuro exam 11/20: White count is 18.3 today, MAXIMUM TEMPERATURE 103.1. Chest x-ray showing right sided infiltrate. Urine culture with gram-negative rods and Brionna albicans. ID consulted Diflucan added 11/21/16: Tmax 101.5. Bilateral lung infiltrates, R>L but slightly improved. No improvement in neuro exam. ID consulted and following. 11/22/16: No fever. CT chest- moderate to large R pleural effusion, bilateral lung infiltrates. ABX per ID. CXR today shows increasing bilateral infiltrates and effusion right more than left. Almost near complete infiltrates on the right lung [place]. Vaginally worsening creatinine today 1.45 indicating multiorgan failure 11/23/16: Hb 9.8 today after 2U PRBC yesterday. Plan for tracheostomy today. INR normal platelet count 116. Worsening creatinine today is 1.6. UO 550 ml in 24 hours. 1L NS bolus and 75 ml per hour maintenance NS. Started on Dopamine 3 mcg per min to maintain MAP>65 11/24 Patient is on ventilator via trach. Afebrile. On Dopamine 4 mics. 11/25 No acute events overnight. s/p EGD yesterday showed mild gastritis unable to place PEG tube endoscopically. Remains on Dopamine 4 mics. On no sedation unresponsive. 11/26 No acute events overnight. On CPAP with PS 20, PEEP: 5 and FIO2 40%. Afebrile. Off Dopamine. Afebrile. 11/27 Patient remains on ventilator via trach on no drips. Afebrile. For PEG tube placement by IR today. 11/28 Patient s/p PEG tube placement by IR yesterday, s/p Right thoracentesis with removal 700ml CXR showed better aeration of lungs, Hgb 6.7 this morning 2units PRBC ordered. Renal function worse with Cr: 3.40 from 2.85 . 11/29: Remains encephalopathic on mechanical ventilation via tracheostomy. 11/30: Remains encephalopathic on mechanical ventilation via tracheostomy. 12/01 Patient s/p transfusion 1unit PRBC last night for Hgb 5.8 in addition to 2L NS. Hgb 6.5 this morning. 12/02: Afebrile. The patient underwent CT-guided thoracentesis yesterday with approximately 600 cc removed. Chest x-ray pending this a.m.. Patient received packed red blood cell 2 units yesterday. Hemoglobin 7.4. Pending EGD today. 12/03:The patient underwent EGD yesterday with Dr. Farnsworth patient was noted to have a large active bleeding ulcer in the body of the stomach, multiple AVMs. Multiple ablations performed. This a.m. hemoglobin dropped to 6.1, platelet count 38. The patient was transfused 2 PRBC, and a unit of platelets. Patient still not relieved receiving any nutrition will begin PPN today. The patient continues to have copious amounts of melena with fecal incontinence apparatus in place. 12/04: The patient continues to have copious melena. PT INR drawn last evening INR was noted to be 13.5. The patient received KCentra, and current INR 1.3 the family requests aggressive measures to be continued. No further interventions from gastroenterology per . IR deemed the patient not a candidate for arteriography or endovascular treatment. 12/05: Patient's current medical status unchanged. Large tarry stools, acute blood loss anemia continues in conjunction with thrombocytopenia. During the night the nurse reported a malodorous scent was noted in free water flush container for instillation through G-tube. It was noted to be possibly fish oil , patient's son was in the room during that time. Container removed. The patient is noted to have a hemoglobin level of 5.8 today will receive 2 units of packed red blood cells and 1 unit of platelets today. 12/06: The patient continues to have copious melena. The patient received one 6 pack of platelets, and 2 units of blood yesterday. Tonight as reported by the nurse in the evening the son continue to utilize fish oil in the patient's free water, which was removed by the nurse. Ethics committee consult was initiated with Dr. Bauer yesterday, regarding assessing goals of care. Objective Vital Signs Date Time Temp Pulse Resp B/P Pulse Ox O2 Delivery O2 Flow Rate FiO2 12/06/16 12:00 85 12/06/16 12:00 30 12/06/16 11:53 98 12/06/16 08:00 98.1 20 107/53 Intake and Output 12/05/16 12/05/16 12/06/16 08:00 16:00 00:00 Intake Total 1021 ml 728 ml 1039 ml Output Total 775 ml 1500 ml 1175 ml Balance 246 ml -772 ml -136 ml Result Diagram: 12/06/16 0545 12/05/16 0436 Imaging Last Impressions Chest X-Ray 11/27/16 1522 Signed Impressions: Service Date/Time: Sunday, November 27, 2016 15:24 - CONCLUSION: 1. Marked improvement in right lung aeration post thoracentesis. No pneumothorax. 2. Improving bilateral airspace disease. Persistent, small left basilar consolidation/effusion Kirit Alcantar MD Thoracentesis 11/27/16 0000 Signed Impressions: Service Date/Time: Sunday, November 27, 2016 14:18 - CONCLUSION: Uncomplicated ultrasound guided thoracentesis. Kirit Alcantar MD Abdomen Ultrasound 11/27/16 0000 Signed Impressions: Service Date/Time: Sunday, November 27, 2016 08:35 - CONCLUSION: Stone in the neck of the gallbladder. Trace ascites and mild splenomegaly Jeffery Alvarado MD Gastrostomy Tube Placement 11/24/16 0000 Signed Impressions: Service Date/Time: Sunday, November 27, 2016 14:34 - CONCLUSION: Uncomplicated gastrostomy tube placement as above. Kirit Alcantar MD Chest CT 11/21/16 0000 Signed Impressions: Service Date/Time: Monday, November 21, 2016 22:57 - CONCLUSION: 1. Moderate size right pleural effusion and small left pleural effusion. Right effusion has increased over the last day compared with a recent chest radiograph. 2. Bilateral lung consolidation as above. Differential diagnosis includes pneumonia and aspiration. Emeterio Freire MD Head CT 11/08/16 1657 Signed Impressions: Service Date/Time: Tuesday, November 08, 2016 17:06 - CONCLUSION: Low density seen throughout the posterior circulation regions including the susan and midbrain, cerebellar hemispheres, occipital and posterior medial temporal lobes and right thalamus. This likely represents areas of infarction involving the posterior territory circulation. Jeffery Zhong MD Carotid Artery Ultrasound 11/08/16 0000 Signed Impressions: Service Date/Time: Tuesday, November 08, 2016 22:24 - CONCLUSION: Mild calcified plaque at the carotid bulbs. No evidence of hemodynamically significant carotid stenosis. José Luis Beltran MD Objective Remarks GENERAL: Patient is 86 yo on ventilator via trach. SKIN: Warm and dry. HEAD: Normocephalic. EYES: No scleral icterus. No injection or drainage. NECK: Supple, trachea midline. No JVD or lymphadenopathy. CARDIOVASCULAR: Regular rate and rhythm without murmurs, gallops, or rubs. RESPIRATORY: Breath sounds equal bilaterally. Few coarse BS. 8.0 trach in situ GASTROINTESTINAL: Abdomen soft, non-tender, nondistended. PEG in place MUSCULOSKELETAL: No cyanosis, peripheral 2+ edema bilateral upper extremities. Neuro: Positive corneal reflex. LIDYA. Negative cough. Negative gag. Extensor posturing in uppers. Downgoing Babinski. 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 She was last seen normal, nearly 24 hours, she was not a candidate for any interventional therapy. Unfortunately, given her age, and the extent of the stroke, her prognosis for any reasonable neurologic function is quite poor. Active GI bleed discussed with family, and patient's poor prognosis. Her family continues to express wishes for aggressive medical management. Active problems: Massive posterior circulation ischemic CVA Hypoxic and hypercarbic respiratory failure Severe encephalopathy secondary to stroke Severe sepsis Healthcare associated pneumonia with pleural effusion Acute kidney injury UTI Anemia-acute and chronic Hyperglycemia of critical illness Thrombocytopenia Active GI bleed with AVM's Plan Neuro: On no sedation Monitor neuro status and avoid sedatives. Neuro is following -11/08 CT brain: Low density seen throughout the posterior circulation regions including the susan and midbrain, cerebellar hemispheres, occipital and posterior medial temporal lobes and right thalamus. This likely represents areas of infarction involving the posterior territory circulation -GCS 3T, decerebrate posturing Resp: -Continue with vent support keep sat >92% Vent bundle, Head of bed 30, bronchodilators-scheduled -s/p trach 11/23, pulm toilet, trach care -SBT daily as lia -s/p CT guided right thoracentesis 11/27 with removal 700ml clear fluid. -12/02 CXR-pulmonary edema, stable CHF, no pneumothorax, pleural effusions CVS: Monitor HR and BP keep MAP>65mmhg 2-D echo -EF 5560 %, mild aortic mitral and tricuspid regurgitation, No RWMA. Carotid ultrasound-no stenosis GI: -s/p PEG tube placement by IR 11/27 , TF held (Jevity 1.5 with goal rate 45 ml/hr ) secondary to GI bleeding -s/p EGD 11/24 showed mild gastritis unable to place PEG tube endoscopically. -Monitor LFT's, US abdomen: Stone in neck of gall bladder, no hydronephrosis -s/p transfusion 1unit PRBC last night will transfuse 2units PRBC 12/01. -12/01 CT abdomen/pelvis-generalized anasarca, trace ascites, bilateral pleural effusions right greater than left -Large gastric ulcer with active bleeding, active melena Protonix infusion continued -IR intervention-patient is not a candidate : -Monitor renal function, I/O's, electrolytes replacement as needed. - Cr: 3.54 today -on Albumin 25gms Q12, Bumex 2mg IV BID. Renal is following- Dr. Zuniga -On Free water 250ml Q6 monitor sodium level. ID: -Continue abx per ID ( Rocephin, Zithromax) monitor for signs of infections ( Fever, WBC) -Urine culture 11/18/16 with Brionna albicans and E coli NOT S Levaquin, but S to zosyn -Infectious disease Dr. Wen, follow up on sputum cx 11/23: nl resp erica Heme: Monitor CBC, 5.8 for transfusion 2 units PRBC today, and platelets INR 1.3 Endo: --Medium dose sliding scale regimen Msk: --Red and sacral area, left heel wound --12/06 Wound care consulted --Specialty bed Proph: Subcutaneous heparin on hold since 11/23 secondary to thrombocytopenia, anemia and GI bleed. SCDs for DVT prophylaxis Protonix for GI prophylaxis -Palliative care is following IV access: Peripheral IV's Dispo: The patient continues to have active melena with requirements daily or every other day for transfusion of blood products. The case was discussed with Dr. Bauer, an ethics consult was initiated. Level 3 Physician Aysha Raymundo MD Dec 06, 2016 13:52
[2016-12-06] MEDS: FAT EMULSION 20% INJ 250 ML (@10 mls/hr) IV SCH (19:46)
[2016-12-06] MEDS: CLINIMIX 4.25/5 (Cust.Renal Periph) 1000 mL- </= 42 mls/hr IV SCH ×8 (19:46)
--- NOTE | 2016-12-06 20:29 | HHI.HCPN ---
Reason for visit a. To assist with evaluation and management of symptoms including: pain; dyspnea; encephalopathy b. To assist medical decision maker(s) with: better understanding of current medical conditions; weighing benefits/burdens of medical treatment options; making medical treatment decisions. . Subjective/Interval History 86 y/o female with devastating posterior circulation stroke, TRACH PLACED , PEG placed and thoracentesis by IR on 11/27/16. No significant change overnight except for development of elevated temp. Patient seen and examined in ICU. Patient remains unresponsive except for decerebrate posturing with stimulation. She is on full ventilator supportit appears she was only on a CPAP trial from about 0910 to 1200. . Patient continues to have active bleeding as evidenced by her ongoing drop in hemoglobin and passage of large,tar colored stools. Bleeding presumably is from either her gastric ulcer or her AV malformations seen on EGD of 12/02/16. I believe she has already received 12 units of packed red blood cells. Tmax 100.8. . Pulses stable. Blood pressure stable. Pulse oximetry remains 95 -100 on the ventilator with FiO2 of 35. Urine output adequate. Now on TPN for nutrition. Hemoglobin 7.0 . . Family/friend interactions No family at bedside. Spoke with son at length yesterday evening. After our long talk including the need to schedule a Bioethics Committee meeting and a request for his availability to address the committee, he called back only to ask if his mother were getting her eye drops and how important those were. . Advance Directives Living Will: Never completed Health Care Surrogate: Never completed Durable Power of Log Yard Manager: Never completed Advance Directive Specifics Date completed: Advance directives were never completed . Health Care Surrogate(s): There is no known written designation of health care surrogate . Documented care wishes: There is no written documentation of health care goals/preferences. . Objective Vital Signs Date Time Temp Pulse Resp B/P Pulse Ox O2 Delivery O2 Flow Rate FiO2 12/06/16 18:00 92 12/06/16 16:45 98 30 12/06/16 16:00 99.0 92 13 131/60 99 12/06/16 16:00 30 12/06/16 16:00 92 12/06/16 14:00 85 12/06/16 12:00 98.6 86 15 118/56 98 12/06/16 12:00 85 12/06/16 12:00 30 12/06/16 11:53 98 30 12/06/16 10:00 87 12/06/16 09:10 95 30 12/06/16 09:10 30 12/06/16 08:00 98.1 74 20 107/53 97 12/06/16 08:00 76 12/06/16 08:00 30 12/06/16 06:00 78 12/06/16 04:08 97 30 12/06/16 04:00 30 12/06/16 04:00 80 12/06/16 04:00 99.5 80 16 116/55 100 12/06/16 02:00 83 12/06/16 00:27 99 35 12/06/16 00:00 100.3 91 18 132/53 99 12/06/16 00:00 91 12/06/16 00:00 30 12/05/16 22:25 100.2 93 17 121/56 100 12/05/16 22:00 93 12/05/16 21:35 100 35 Intake & Output 12/06/16 12/06/16 07:00 19:00 Intake Total 2464 ml 601 ml Output Total 2315 ml 1000 ml Balance 149 ml -399 ml Intake Oral 0 ml IV Total 1214 ml 171 ml TPN/PPN 348 ml Lipid 82 ml Albumin 100 ml Packed Cells 620 ml Other 530 ml Output Urine Total 2000 ml 1000 ml Stool Total 315 ml . Physical Exam CONSTITUTIONAL/GENERAL: This is an adequately nourished patient, trached, mechanically ventilated; in an MICU bed. Responsiveness limited to decerebrate posturing with noxious stimuli. EYES: Injected/swollen sclerae/conjunctivae, right worse than left. TUBES/LINES/DRAINS: trach, PEG tube, Tejeda catheter; peripheral IVs; dressing LE, podus boots. CARDIOVASCULAR: Regular rate and rhythm. RESPIRATORY/CHEST: Symmetric, unlabored respirations. Breath sounds equal bilaterally. Coarse breath sounds bilaterally. No wheezes, rales. GASTROINTESTINAL: Abdomen soft, non-tender, nondistended. No hepato-splenomegaly , or palpable masses. No guarding. GENITOURINARY: Without palpable bladder distension. Tejeda catheter in place. MUSCULOSKELETAL: Extremities with edema. No mottling. NEUROLOGICAL: Does not awaken to loud voice or exam. Unable to follow commands. Decerebrate posturing to noxious stimuli. PSYCHIATRIC: Unable to evaluate due to level of responsiveness. . Diagnostic Tests Laboratory Laboratory Tests Test 12/04/16 12/04/16 12/05/16 12/05/16 03:21 14:39 04:36 04:56 White Blood Count 4.6 TH/MM3 3.7 TH/MM3 (4.0-11.0) (4.0-11.0) Red Blood Count 2.68 MIL/MM3 1.89 MIL/MM3 (4.00-5.30) (4.00-5.30) Hemoglobin 7.7 GM/DL 6.7 GM/DL 5.6 GM/DL (11.6-15.3) (11.6-15.3) (11.6-15.3) Hematocrit 23.2 % 20.2 % 16.7 % (35.0-46.0) (35.0-46.0) (35.0-46.0) Mean Corpuscular Volume 86.6 FL 88.2 FL (80.0-100.0) (80.0-100.0) Mean Corpuscular Hemoglobin 28.9 PG 29.5 PG (27.0-34.0) (27.0-34.0) Mean Corpuscular Hemoglobin 33.3 % 33.4 % Concent (32.0-36.0) (32.0-36.0) Red Cell Distribution Width 16.5 % 17.1 % (11.6-17.2) (11.6-17.2) Platelet Count 55 TH/MM3 52 TH/MM3 (150-450) (150-450) Mean Platelet Volume 9.8 FL 9.4 FL (7.0-11.0) (7.0-11.0) Neutrophils (%) (Auto) 68.6 % % (16.0-70.0) (16.0-70.0) Lymphocytes (%) (Auto) 12.7 % % (9.0-44.0) (9.0-44.0) Monocytes (%) (Auto) 7.5 % (0.0-8.0) % (0.0-8.0) Eosinophils (%) (Auto) 10.8 % % (0.0-4.0) (0.0-4.0) Basophils (%) (Auto) 0.4 % (0.0-2.0) % (0.0-2.0) Neutrophils # (Auto) 3.2 TH/MM3 TH/MM3 (1.8-7.7) (1.8-7.7) Lymphocytes # (Auto) 0.6 TH/MM3 TH/MM3 (1.0-4.8) (1.0-4.8) Monocytes # (Auto) 0.3 TH/MM3 TH/MM3 (0-0.9) (0-0.9) Eosinophils # (Auto) 0.5 TH/MM3 TH/MM3 (0-0.4) (0-0.4) Basophils # (Auto) 0.0 TH/MM3 TH/MM3 (0-0.2) (0-0.2) CBC Comment AUTO DIFF AUTO DIFF Differential Total Cells 100 100 Counted Neutrophils % (Manual) 57 % (16-70) 63 % (16-70) Band Neutrophils % 15 % (0-6) 13 % (0-6) Lymphocytes % 11 % (9-44) 11 % (9-44) Monocytes % 3 % (0-8) 2 % (0-8) Eosinophils % 12 % (0-4) 9 % (0-4) Basophils % 1 % (0-2) 1 % (0-2) Neutrophils # (Manual) 3.4 TH/MM3 2.8 TH/MM3 (1.8-7.7) (1.8-7.7) Metamyelocytes 1 % (0-1) 1 % (0-1) Nucleated Red Blood Cells 2 /100 WBC 2 /100 WBC (0-0) (0-0) Differential Comment FINAL DIFF FINAL DIFF MANUAL MANUAL Platelet Estimate LOW (NORMAL) LOW (NORMAL) Platelet Morphology Comment NORMAL NORMAL (NORMAL) (NORMAL) Polychromasia 3.2 % (0.0-1.9) 2.4 % (0.0-1.9) Prothrombin Time 14.3 SEC (9.8-11.6) Prothromb Time International 1.3 RATIO Ratio Sodium Level 143 MEQ/L 142 MEQ/L (136-145) (136-145) Potassium Level 4.1 MEQ/L 3.2 MEQ/L (3.5-5.1) (3.5-5.1) Chloride Level 108 MEQ/L 106 MEQ/L (98-107) (98-107) Carbon Dioxide Level 24.6 MEQ/L 24.8 MEQ/L (21.0-32.0) (21.0-32.0) Anion Gap 10 MEQ/L (5-15) 11 MEQ/L (5-15) Blood Urea Nitrogen 88 MG/DL (7-18) 102 MG/DL (7-18) Creatinine 3.44 MG/DL 3.37 MG/DL (0.50-1.00) (0.50-1.00) Estimat Glomerular Filtration 13 ML/MIN (>89) 13 ML/MIN (>89) Rate Random Glucose 135 MG/DL 137 MG/DL (74-106) (74-106) Calcium Level 7.7 MG/DL 8.1 MG/DL (8.5-10.1) (8.5-10.1) Phosphorus Level 3.9 MG/DL 3.1 MG/DL (2.5-4.9) (2.5-4.9) Magnesium Level 1.8 MG/DL 1.9 MG/DL (1.5-2.5) (1.5-2.5) Acanthocytes OCC (NORMAL) Test 12/05/16 12/05/16 12/06/16 11:27 15:55 05:45 Blood Type O POSITIVE Antibody Screen POSITIVE Crossmatch Leukocyte-Reduced Red Blood Cells Blood Bank Comment Hemoglobin 5.5 GM/DL 7.0 GM/DL (11.6-15.3) (11.6-15.3) Hematocrit 16.6 % 20.8 % (35.0-46.0) (35.0-46.0) White Blood Count 6.0 TH/MM3 (4.0-11.0) Red Blood Count 2.30 MIL/MM3 (4.00-5.30) Mean Corpuscular Volume 90.4 FL (80.0-100.0) Mean Corpuscular Hemoglobin 30.5 PG (27.0-34.0) Mean Corpuscular Hemoglobin 33.8 % Concent (32.0-36.0) Red Cell Distribution Width 15.4 % (11.6-17.2) Platelet Count 66 TH/MM3 (150-450) Mean Platelet Volume 8.9 FL (7.0-11.0) Prothrombin Time 14.5 SEC (9.8-11.6) Prothromb Time International 1.3 RATIO Ratio . Result Diagram: 12/06/16 0545 12/05/16 0436 Imaging Last Impressions Chest X-Ray 12/03/16 0600 Signed Impressions: Service Date/Time: Saturday, December 03, 2016 04:59 - CONCLUSION: Borderline cardiomegaly with diffuse consolidation which are clearly worse likely representing CHF. Some degree of left effusion needs to be considered. Jeffery Zhong MD Thoracentesis 12/01/16 0000 Signed Impressions: Service Date/Time: Thursday, December 01, 2016 18:56 - CONCLUSION: Uncomplicated CT-guided thoracentesis. Jeffery Alvarado MD Chest CT 12/01/16 0000 Signed Impressions: Service Date/Time: Thursday, December 01, 2016 13:09 - CONCLUSION: Bilateral pleural effusion, larger on the right than the left. Mack Cao MD FACR Abdomen/Pelvis CT 12/01/16 0000 Signed Impressions: Service Date/Time: Thursday, December 01, 2016 13:09 - CONCLUSION: 1. Right inguinal hernia containing only fluid. 2. Generalized anasarca. 3. Trace ascites. 4. Bilateral pleural effusions, larger on the right than the left. Mack Cao MD FACR Abdomen Ultrasound 11/27/16 0000 Signed Impressions: Service Date/Time: Sunday, November 27, 2016 08:35 - CONCLUSION: Stone in the neck of the gallbladder. Trace ascites and mild splenomegaly Jeffery Alvarado MD Gastrostomy Tube Placement 11/24/16 0000 Signed Impressions: Service Date/Time: Sunday, November 27, 2016 14:34 - CONCLUSION: Uncomplicated gastrostomy tube placement as above. Kirit Alcantar MD Head CT 11/08/16 1657 Signed Impressions: Service Date/Time: Tuesday, November 08, 2016 17:06 - CONCLUSION: Low density seen throughout the posterior circulation regions including the susan and midbrain, cerebellar hemispheres, occipital and posterior medial temporal lobes and right thalamus. This likely represents areas of infarction involving the posterior territory circulation. Jeffery Zhong MD Carotid Artery Ultrasound 11/08/16 0000 Signed Impressions: Service Date/Time: Tuesday, November 08, 2016 22:24 - CONCLUSION: Mild calcified plaque at the carotid bulbs. No evidence of hemodynamically significant carotid stenosis. José Luis Beltran MD . Procedures * Intubation/mechanical ventilation * Trach 11/23/16 * PEG tube placement * EGD 12/02/16 . . Assessment and Plan Disease Oriented Problem List: (1) CVA (cerebral vascular accident) Comment: Very large posterior circulation stroke. No signs of neurological recovery. Prognosis grim. . . (2) Rhabdomyolysis Comment: Resolved. (3) Dementia Comment: Family reports at least a 7 year history of dementia. . (4) Gastrointestinal hemorrhage Comment: EGD on 12/02/16 revealed a gastric ulcer and multiple duodenal AVMs. In spite of attempts to cauterize these via EGD, patient continues to bleed and pass melanotic stools. Multiple transfusions have been provided. . (5) Anemia (6) Malnutrition Comment: Presenting albumin level was 2.8 . (7) Urinary tract infection Comment: Cx of 11/08 --> E coli and Enterococcus . (8) Thrombocytopenia (9) Pneumonia Comment: Sputum cx of 11/12 growing Staph aureus. . Symptom Scale: (1) Pain 0-10 Scale: Unable to quantify Comment: Patient had no known prior pain syndromes. Current possible sources of pain include prolonged bedbound status; vascular access catheters; Tejeda catheter. . (2) Dyspnea 0-10 Scale: Unable to quantify Comment: Dyspnea currently controlled with mechanical ventilation. . (3) Encephalopathy 0-10 Scale: Unable to quantify Comment: Patient was minimally responsive on arrival. No evidence of neurologic recovery. Her only response now is decerebrate posturing with stimulation. Off all sedation. . Pertinent Non-Medical Issues Psychosocial: Normally lives with her sister. Her son lives by visits frequently. Spiritual: Patient is a [employer]. The patient's son, Wyatt, has consented to multiple blood transfusions now telling us that the patient was not "devout" in terms of her believes as a [employer]ology. Legal: No advance directives. Son would be the appropriate proxy health care decision-maker under the [place] statutes hierarchy. Ethical issues impacting care: Patient is incapacitated to make her own health care decisions and is not expected to regain such capacity. Patient's care is deemed to be futile per the vast majority of medical team members. There are concerns that ongoing aggressive care will only serve to prolong and uncomfortable dying process. . . Important Contacts Wyatt Crawford (son and healthcare proxy) [phone] . Prognosis This is an 86-year-old female who was suffered a fairly massive posterior circulation stroke. This is on top of at least a seven-year history of dementia with the patient was already requiring assistance with most of her ADLs. There is a high risk of during this hospitalization. Should she survive, she will not have meaningful interaction with her environment. In spite of bleak prognosis, the patient's son has insisted on ongoing aggressive care. The patient has managed to remain alive but there is been no evidence of neurologic recovery. She is unresponsive except for decerebrate posturing with stimulation. She now is actively GI bleeding from a combination of a gastric ulcer and multiple duodenal AVMs. She has received multiple transfusions. It does not appear we will be able to stop this bleeding. The patient would certainly be eligible for hospice services at such time that family believes the patient's goals would best be honored by transitioning to "comfort measures only." . . Code Status: Full Code Plan * FULL CODE: The patient's son changed his mind and asked that she be transitioned back to FULL CODE STATUS on 12/03/16 * DECISION-MAKING: The patient lacks capacity for decision-making, and she will not regain capacity. Her son, Wyatt Crawford, is the legal health care proxy. * GOALS: The patient is a [employer]. The son indicates now that she has not been devout and that is why he has agreed to multiple blood transfusions. Son has continued to ask for ongoing aggressive care and patient has now undergone both trach and PEG. * SYMPTOMS: It is difficult to know when she has pain or dyspnea, and we will continue to observe closely for signs of suffering. Certainly her bedbound status and recent procedures could be painful. No new med recommendations at this time. * Drs. Cartwright and Javad have requested a meeting of the bioethics committee to discuss this case. I informed the son about this development and let him know I would like him to attend to explain to medical team members why he believes his mother would want ongoing aggressive care given the conversations he has had with the physicians. Wyatt seems uninterested in attending and seems to be avoiding. If I can't get him to agree and schedule a time I will check with the physicians and see if they want to meet without him. * Palliative care will continue to follow to assist with symptom management and to help clarify goals of medical treatment as the clinical course evolves. * . . Attestation To help prompt me to consider important information that might be impacting today's encounter and assessment, information from prior notes written by myself or my colleagues may have been "brought forward" into today's note. My signature on this note, however, is an attestation that I personally performed the exam, history, and/or decision-making noted today, and, unless otherwise indicated, the interactions with patient, family, and staff as well as the review of records all occurred today. I also attest that the listed assessment and stated plan reflect my best clinical judgment today based on the combination of historical information, prior notes, and today's exam/ interactions. When time spent is documented, it refers only to time spent today by the signer, or if indicated, combined time spent today by collaborating physician/nurse practitioner. . Karlos Bauer MD Dec 06, 2016 20:29
[2016-12-07] VITALS (18 sets, daily range): BP systolic 106–138; BP diastolic 51–63; PULSE 77–95; RESP 15–20; TEMP 97.9–100.2; O2SAT 96–100
[2016-12-07] MEDS: HIGH DOSE INSULIN NOVOLIN REGULAR SUPPLEMENTAL SCALE SQ SCH ×6 (00:16→20:00)
[2016-12-07] MEDS: CHLORHEXIDINE GLUCONATE 2 % 1 PACK (2 CLOTHS) TOP SCH (02:27)
[2016-12-07] MEDS: ALBUMIN HUMAN 25% 25 GM/100 ML BAGP IV SCH ×2 (02:27→17:01)
[2016-12-07 04:53] LABS: INTERNATIONAL NORMALIZED RATIO 1.3 RATIO; PROTHROMBIN TIME - PATIENT 14.7 SEC (9.8-11.6)
[2016-12-07 04:55] LABS: MEAN CELL VOLUME 90.9 FL (80.0-100.0); MEAN CORPUSCULAR HEMOGLOBIN 32.7 PG (27.0-34.0); PLATELET COUNT 62 TH/MM3 (150-450); RED BLOOD COUNT 1.92 MIL/MM3 (4.00-5.30); RED CELL DISTRIBUTION WIDTH 15.5 % (11.6-17.2); WHITE BLOOD COUNT 6.7 TH/MM3 (4.0-11.0)
--- NOTE | 2016-12-07 05:04 | RADRPT ---
EXAM DATE/TIME: 12/07/2016 02:30 [facility] COMPARISON: CHEST SINGLE AP, December 03, 2016, 4:59. INDICATIONS : Shortness of breath, possible pulmonary disease. MEDICAL HISTORY : Cerebrovascular disease. SURGICAL HISTORY : None. ENCOUNTER: Subsequent ACUITY: 1 week PAIN SCORE: Non-responsive. LOCATION: Bilateral chest FINDINGS: A single view of the chest demonstrates diffuse bilateral patchy airspace disease. Cardiomegaly and u nchanged tracheostomy tube. Suspect small pleural effusions. The cardiomediastinal contours are unre markable. Osseous structures are intact. CONCLUSION: Diffuse bilateral patchy airspace disease and suspect small pleural effusions. Leonardo Yung MD on December 07, 2016 at 5:00 Board Certified Radiologist. This report was verified electronically.
[2016-12-07 05:14] LABS: REVIEW FLAG FINAL
[2016-12-07 05:17] LABS: HEMATOCRIT 17.5 % (35.0-46.0)
[2016-12-07] MEDS: FREE WATER G-TUBE SCH ×4 (06:00→17:02)
[2016-12-07 06:01] LABS: BICARBONATE 26.4 MEQ/L (21.0-32.0); POTASSIUM 3.1 MEQ/L (3.5-5.1)
[2016-12-07] MEDS: SODIUM CHLORIDE 0.9% FLUSH 5 ML FLUSH IV FLUSH SCH ×2 (09:00→20:49)
[2016-12-07] MEDS: CHLORHEXIDINE 0.12% (ORAL KIT) 15 ML CUP MT SCH ×2 (10:11→20:49)
[2016-12-07] MEDS: BUMETANIDE INJ 1 MG/4 ML VIAL IV PUSH SCH ×2 (10:13→17:03)
[2016-12-07] MEDS: FERROUS SULFATE 300 MG /5ML UDC PO SCH ×2 (10:13→20:49)
[2016-12-07] MEDS: ARTIFICIAL TEARS OPTH SOLN 15 ML BTL EACH EYE SCH ×3 (10:14→17:02)
[2016-12-07] MEDS ORDERED: POTASSIUM CHLOR 40 MEQ PREMIX 100 ML IV ONE (10:45)
--- NOTE | 2016-12-07 10:46 | HHI.NPPN ---
Subjective History of Present Illness 86 year old with CVA, Resp failure s/p Trach/ PEG Additional Remarks Remains intubated, ongoing anemia. Review of Systems General Constitutional: Fatigue Objective Data Data 12/06/16 12/07/16 19:00 07:00 Intake Total 601 ml 1393 ml Output Total 1000 ml 2000 ml Balance -399 ml -607 ml IV Total 171 ml 138 ml TPN/PPN 348 ml 640 ml Lipid 82 ml 155 ml Albumin 100 ml Tube Irrigant 60 ml Other 300 ml Output Urine Total 1000 ml 1950 ml Stool Total 50 ml Vital Signs Date Time Temp Pulse Resp B/P Pulse Ox O2 Delivery O2 Flow Rate FiO2 12/07/16 07:45 98 30 12/07/16 07:45 30 12/07/16 06:00 82 12/07/16 04:24 98 30 12/07/16 04:00 100.2 82 20 106/55 97 12/07/16 04:00 30 12/07/16 04:00 93 12/07/16 02:00 92 12/07/16 01:52 97 30 12/07/16 00:00 100.1 95 20 118/59 99 12/07/16 00:00 30 12/07/16 00:00 95 12/06/16 22:33 98 30 12/06/16 22:00 97 12/06/16 20:00 30 12/06/16 20:00 89 12/06/16 20:00 99.1 92 18 100/67 98 12/06/16 18:00 92 12/06/16 16:45 98 30 12/06/16 16:00 99.0 92 13 131/60 99 12/06/16 16:00 30 12/06/16 16:00 92 12/06/16 14:00 85 12/06/16 12:00 98.6 86 15 118/56 98 12/06/16 12:00 85 12/06/16 12:00 30 12/06/16 11:53 98 30 -: 12/07/16 0401 12/07/16 0401 Physical Exam General Appearance: Pale Neck Neck Remarks s/p trach Pulmonary Resp Exam: Decreased Bases Cardiology CV Exam: Regular Gastrointestinal/Abdomen GI Exam: Soft, Non-Tender Extremeties Extremities Exam: Moderate Edema Assessment/Plan Problem List: (1) Acute renal failure Plan: Patient has multiple issues and has malnutrition with poor albumin contributing to low oncotic pressure, ATN creatinine stable: 3.6 -> 3.5 -> 3.5 --> 3.4 --> 3.37 --> 3.05 On Bumex 2 mg IV q12 - continue for now. Good UOP with 2.9 L/ 24 hours replace K no meaningful recovery from CVA at this point Palliative care following. Apparently son would like to fly her to [place] for stem cell treatment. Continue to follow goals of care. 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 Ongoing anemia, continue to monitor. getting PRBC on regular interval agree with Palliative care ethics meeting with son as futile care with hopeless situation and no chance of meaningful recovery (2) Metabolic acidosis Plan: Stable, continue to monitor (3) Pneumonia Plan: On vent treated earlier with antibiotic (4) Urinary tract infection Plan: Escherichia coli she was treated (5) CVA (cerebral vascular accident) Plan: Massive stroke neurology following (6) Rhabdomyolysis Plan: This resolved (7) Hypernatremia Plan: Given 1L of DW over weekend improved Continue to monitor, repeat as necessary Problem Qualifiers (1) Acute renal failure: Qualified Code: N17.9 - Acute renal failure, unspecified acute renal failure type (2) CVA (cerebral vascular accident): Qualified Code: I63.9 - Cerebrovascular accident (CVA), unspecified mechanism (3) Rhabdomyolysis: Qualified Code: M62.82 - Non-traumatic rhabdomyolysis Kristel Zuniga MD Dec 07, 2016 10:46
[2016-12-07] MEDS: POTASSIUM CHLOR 20 MEQ PREMIX 100 ML IV SCH ×2 (12:30→17:00)
[2016-12-07] MEDS: PANTOPRAZOLE INJ 80 MG in SODIUM CHLORIDE 0.9% INJ 100 ML IV SCH (12:45)
--- NOTE | 2016-12-07 13:40 | HHI.GIFU ---
Subjective Remarks Resting in bed. Getting TPN. Melena noted in rectal bag. No active hematemesis at this time. Sedated on ventilator. Objective Vitals I&O Vital Signs Date Time Temp Pulse Resp B/P Pulse Ox O2 Delivery O2 Flow Rate FiO2 12/07/16 11:50 30 12/07/16 11:50 97 30 12/07/16 08:00 30 12/07/16 07:45 98 30 12/07/16 07:45 30 12/07/16 06:00 82 12/07/16 04:24 98 30 12/07/16 04:00 100.2 82 20 106/55 97 12/07/16 04:00 30 12/07/16 04:00 93 12/07/16 02:00 92 12/07/16 01:52 97 30 12/07/16 00:00 100.1 95 20 118/59 99 12/07/16 00:00 30 12/07/16 00:00 95 12/06/16 22:33 98 30 12/06/16 22:00 97 12/06/16 20:00 30 12/06/16 20:00 89 12/06/16 20:00 99.1 92 18 100/67 98 12/06/16 18:00 92 12/06/16 16:45 98 30 12/06/16 16:00 99.0 92 13 131/60 99 12/06/16 16:00 30 12/06/16 16:00 92 12/06/16 14:00 85 I/O 12/06/16 12/06/16 12/06/16 12/07/16 12/07/16 12/07/16 07:00 15:00 23:00 07:00 15:00 23:00 Intake Total 1425 ml 601 ml 556 ml 837 ml Output Total 1140 ml 1000 ml 1150 ml 850 ml Balance 285 ml -399 ml -594 ml -13 ml IV Total 825 ml 171 ml 74 ml 64 ml TPN/PPN 348 ml 342 ml 298 ml Lipid 82 ml 80 ml 75 ml Albumin 100 ml 100 ml Tube Irrigant 60 ml Other 500 ml 300 ml Output Urine Total 1000 ml 1000 ml 1100 ml 850 ml Stool Total 140 ml 50 ml 0 ml Laboratory Laboratory Tests Test 12/07/16 04:01 White Blood Count 6.7 Red Blood Count 1.92 Hemoglobin 6.3 Hematocrit 17.5 Mean Corpuscular Volume 90.9 Mean Corpuscular Hemoglobin 32.7 Mean Corpuscular Hemoglobin 36.0 Concent Red Cell Distribution Width 15.5 Platelet Count 62 Mean Platelet Volume 9.8 Prothrombin Time 14.7 Prothromb Time International 1.3 Ratio Sodium Level 144 Potassium Level 3.1 Chloride Level 108 Carbon Dioxide Level 26.4 Anion Gap 10 Blood Urea Nitrogen 117 Creatinine 3.05 Estimat Glomerular Filtration 14 Rate Random Glucose 133 Calcium Level 8.3 Imaging Last Impressions Chest X-Ray 12/07/16 0600 Signed Impressions: Service Date/Time: November 02:30 - CONCLUSION: Diffuse bilateral patchy airspace disease and suspect small pleural effusions. Leonardo Yung MD Thoracentesis 12/01/16 0000 Signed Impressions: Service Date/Time: Thursday, December 01, 2016 18:56 - CONCLUSION: Uncomplicated CT-guided thoracentesis. Jeffery Alvarado MD Chest CT 12/01/16 0000 Signed Impressions: Service Date/Time: Thursday, December 01, 2016 13:09 - CONCLUSION: Bilateral pleural effusion, larger on the right than the left. Mack Cao MD FACR Abdomen/Pelvis CT 12/01/16 0000 Signed Impressions: Service Date/Time: Thursday, December 01, 2016 13:09 - CONCLUSION: 1. Right inguinal hernia containing only fluid. 2. Generalized anasarca. 3. Trace ascites. 4. Bilateral pleural effusions, larger on the right than the left. Mack Cao MD FACR Abdomen Ultrasound 11/27/16 0000 Signed Impressions: Service Date/Time: Sunday, November 27, 2016 08:35 - CONCLUSION: Stone in the neck of the gallbladder. Trace ascites and mild splenomegaly Jeffery Alvarado MD Gastrostomy Tube Placement 11/24/16 0000 Signed Impressions: Service Date/Time: Sunday, November 27, 2016 14:34 - CONCLUSION: Uncomplicated gastrostomy tube placement as above. Kirit Alcantar MD Head CT 11/08/16 4817 Signed Impressions: Service Date/Time: Tuesday, November 08, 2016 17:06 - CONCLUSION: Low density seen throughout the posterior circulation regions including the susan and midbrain, cerebellar hemispheres, occipital and posterior medial temporal lobes and right thalamus. This likely represents areas of infarction involving the posterior territory circulation. Jeffery Zhong MD Carotid Artery Ultrasound 11/08/16 0000 Signed Impressions: Service Date/Time: Tuesday, November 08, 2016 22:24 - CONCLUSION: Mild calcified plaque at the carotid bulbs. No evidence of hemodynamically significant carotid stenosis. José Luis Beltran MD Physical Exam HEENT: Normocephalic; atraumatic; no jaundice. CHEST: OETT to trach. Course breath sounds. CARDIAC: RRR ABDOMEN: Soft, nondistended, no hepatosplenomegaly; bowel sounds are present in all four quadrants. Melena in rectal bag. PEG tube clamped EXTREMITIES: Generalized edema. SKIN: Generalized pallor NEWS EDITOR: Sedated on vent Assessment and Plan Plan ASSESSMENT: - GIB/anemia with drop in hgb. 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 She has received 13 units of PRBC and 2 unit of Plt. She continues to have dropping HH despite multiple transfusions. IR does not think patient is a candidate for embolization per Dr. Farnsworth. Protonix Gtt. TPN. Monitor HH and transfuse as needed. Pt with poor prognosis. - Large gastric ulcer, multiple duodenal avms. S/P Ablation. Not a candidate for embolization. On protonix gtt, tpn. Still with HH trending down. Poor prognosis. Protonix gtt. - Anemia secondary to acute blood loss. S/P 13 units PRBC, 2 PLT. HH 6.3/ 17.5. - Dysphagia, FEN. Pt currently in ICU being treated for massive posterior circulation ischemic CVA and she remains in the ICU being treated for hypoxic respiratory failure, severe encephalopathy secondary to stroke, severe sepsis, HCAP with pleural effusion, and acute kidney injury. She is S/P tracheostomy. Had PEG tube placement by IR on 11/27. On TPN. - Severe Encephalopathy/CVA. Per CCM - Resp. Failure, HCAP, Pleural effusion per CCM - BRIANA with electrolyte abnormalities. PLAN: - NPO - Cont. TPN - Cont. Protonix Gtt - Monitor HH - Transfuse as necessary - Unable to have embolization by IR - Poor prognosis, recommend Hospice - Pt seen and examined by Dr. Farnsworth and myself and this note is written on his behalf Yoli Dickens Dec 07, 2016 13:40
--- NOTE | 2016-12-07 16:34 | HHI.CCPN ---
Subjective Remarks/Hospital Course This is an 86yF with per report no other past medical history who presented to the ER after she was found unresponsive in her bed. According to ER reports, her family saw her normal last night when she had a fall, with unknown LOC. At that point, he helped her back to bed. However, this morning she did not wake up. On arrival to the ER, she was unresponsive only withdrawing to pain. she was intubated for airway protection and a poor GCS. CT head demonstrated massive posterior-circulation ischemic stroke. The patient is currently intubated and unresponsive and cannot provide any additional history. 11/09: No acute changes overnight. Palliative care team has consult with the family regarding goals of care. Currently the patient's sedation fentanyl infusion has been turned off without any response from patient. The patient notably does withdrawal to pain. 11/10: No change in neurological status. [id number]. The patient withdraws to pain 4 extremities. The patient currently on no sedation, fentanyl infusion discontinued yesterday. Tube feeds were initiated. The patient's urine culture grew back Escherichia coli, the patient was started on antibiotics. Extensive discussion with son regarding patient's neurological status, son Wyatt has had extensive discussion with palliative care.The son feels that yesterday when the patient was spoken to in Hebrew the patient squeezed his hand and desires aggressive treatment. The patient's neuro status is unchanged, totally unresponsive with occasional reflexive twitching of feet B/L. Follow-up with neurology Dr. Pack, guarding any further imaging studies. 11/13: No change in neuro exam. Palliative care following. Family wanting full aggressive care. Palliative care will address early trach PEG 11/14: No improvement in neuro status. Son has not made decisions regarding trach and PEG. Apparently he wants to wait longer to see any improvement 11/15: Remains unresponsive. Neuro exam with extensor posturing-unchanged. Son requesting aggressive care. Continues to have low-grade fever 11/16: Clinically no improvement. Tolerates CPAP. Unable to extubate as patient will not protect airway 11/17: Tolerating C Pap but no change in neuro exam. Hemoglobin noted to be 6.8 hemodynamically stable 11/18: Became tachycardic and hypotensive early a.m., placed on assist control. Otherwise neuro exam remains unchanged 11/19: Continues to spike fever Tmax 102, started on vancomycin and cefepime in addition to Levaquin yesterday. Currently only low-grade fever. Received 2 units of blood for hemoglobin of 5.3. CBC pending at this time. No improvement in neuro exam 11/20: White count is 18.3 today, MAXIMUM TEMPERATURE 103.1. Chest x-ray showing right sided infiltrate. Urine culture with gram-negative rods and Brionna albicans. ID consulted Diflucan added 11/21/16: Tmax 101.5. Bilateral lung infiltrates, R>L but slightly improved. No improvement in neuro exam. ID consulted and following. 11/22/16: No fever. CT chest- moderate to large R pleural effusion, bilateral lung infiltrates. ABX per ID. CXR today shows increasing bilateral infiltrates and effusion right more than left. Almost near complete infiltrates on the right lung [place]. Vaginally worsening creatinine today 1.45 indicating multiorgan failure 11/23/16: Hb 9.8 today after 2U PRBC yesterday. Plan for tracheostomy today. INR normal platelet count 116. Worsening creatinine today is 1.6. UO 550 ml in 24 hours. 1L NS bolus and 75 ml per hour maintenance NS. Started on Dopamine 3 mcg per min to maintain MAP>65 11/24 Patient is on ventilator via trach. Afebrile. On Dopamine 4 mics. 11/25 No acute events overnight. s/p EGD yesterday showed mild gastritis unable to place PEG tube endoscopically. Remains on Dopamine 4 mics. On no sedation unresponsive. 11/26 No acute events overnight. On CPAP with PS 20, PEEP: 5 and FIO2 40%. Afebrile. Off Dopamine. Afebrile. 11/27 Patient remains on ventilator via trach on no drips. Afebrile. For PEG tube placement by IR today. 11/28 Patient s/p PEG tube placement by IR yesterday, s/p Right thoracentesis with removal 700ml CXR showed better aeration of lungs, Hgb 6.7 this morning 2units PRBC ordered. Renal function worse with Cr: 3.40 from 2.85 . 11/29: Remains encephalopathic on mechanical ventilation via tracheostomy. 11/30: Remains encephalopathic on mechanical ventilation via tracheostomy. 12/01 Patient s/p transfusion 1unit PRBC last night for Hgb 5.8 in addition to 2L NS. Hgb 6.5 this morning. 12/02: Afebrile. The patient underwent CT-guided thoracentesis yesterday with approximately 600 cc removed. Chest x-ray pending this a.m.. Patient received packed red blood cell 2 units yesterday. Hemoglobin 7.4. Pending EGD today. 12/03:The patient underwent EGD yesterday with Dr. Farnsworth patient was noted to have a large active bleeding ulcer in the body of the stomach, multiple AVMs. Multiple ablations performed. This a.m. hemoglobin dropped to 6.1, platelet count 38. The patient was transfused 2 PRBC, and a unit of platelets. Patient still not relieved receiving any nutrition will begin PPN today. The patient continues to have copious amounts of melena with fecal incontinence apparatus in place. 12/04: The patient continues to have copious melena. PT INR drawn last evening INR was noted to be 13.5. The patient received KCentra, and current INR 1.3 the family requests aggressive measures to be continued. No further interventions from gastroenterology per . IR deemed the patient not a candidate for arteriography or endovascular treatment. 12/05: Patient's current medical status unchanged. Large tarry stools, acute blood loss anemia continues in conjunction with thrombocytopenia. During the night the nurse reported a malodorous scent was noted in free water flush container for instillation through G-tube. It was noted to be possibly fish oil , patient's son was in the room during that time. Container removed. The patient is noted to have a hemoglobin level of 5.8 today will receive 2 units of packed red blood cells and 1 unit of platelets today. 12/06: The patient continues to have copious melena. The patient received one 6 pack of platelets, and 2 units of blood yesterday. Tonight as reported by the nurse in the evening the son continue to utilize fish oil in the patient's free water, which was removed by the nurse. Ethics committee consult was initiated with Dr. Bauer yesterday, regarding assessing goals of care. 12/07: The patient's INR 1.3. Patient received 2 units of blood and one 6 pack of platelets yesterday. Awaiting ethics committee meeting with Dr. Bauer. The patient continues to require transfusions. Objective Vital Signs Date Time Temp Pulse Resp B/P Pulse Ox O2 Delivery O2 Flow Rate FiO2 12/07/16 16:12 100 30 12/07/16 06:00 82 12/07/16 04:00 100.2 20 106/55 Intake and Output 12/06/16 12/06/16 12/07/16 08:00 16:00 00:00 Intake Total 1425 ml 601 ml 556 ml Output Total 1140 ml 1000 ml 1150 ml Balance 285 ml -399 ml -594 ml Result Diagram: 12/07/16 0401 12/07/16 0401 Imaging Last Impressions Chest X-Ray 11/27/16 1522 Signed Impressions: Service Date/Time: Sunday, November 27, 2016 15:24 - CONCLUSION: 1. Marked improvement in right lung aeration post thoracentesis. No pneumothorax. 2. Improving bilateral airspace disease. Persistent, small left basilar consolidation/effusion Kirit Alcantar MD Thoracentesis 11/27/16 0000 Signed Impressions: Service Date/Time: Sunday, November 27, 2016 14:18 - CONCLUSION: Uncomplicated ultrasound guided thoracentesis. Kirit Alcantar MD Abdomen Ultrasound 11/27/16 0000 Signed Impressions: Service Date/Time: Sunday, November 27, 2016 08:35 - CONCLUSION: Stone in the neck of the gallbladder. Trace ascites and mild splenomegaly Jeffery Alvarado MD Gastrostomy Tube Placement 11/24/16 0000 Signed Impressions: Service Date/Time: Sunday, November 27, 2016 14:34 - CONCLUSION: Uncomplicated gastrostomy tube placement as above. Kirit Alcantar MD Chest CT 11/21/16 0000 Signed Impressions: Service Date/Time: Monday, November 21, 2016 22:57 - CONCLUSION: 1. Moderate size right pleural effusion and small left pleural effusion. Right effusion has increased over the last day compared with a recent chest radiograph. 2. Bilateral lung consolidation as above. Differential diagnosis includes pneumonia and aspiration. Emeterio Freire MD Head CT 11/08/16 1657 Signed Impressions: Service Date/Time: Tuesday, November 08, 2016 17:06 - CONCLUSION: Low density seen throughout the posterior circulation regions including the susan and midbrain, cerebellar hemispheres, occipital and posterior medial temporal lobes and right thalamus. This likely represents areas of infarction involving the posterior territory circulation. Jeffery Zhong MD Carotid Artery Ultrasound 11/08/16 0000 Signed Impressions: Service Date/Time: Tuesday, November 08, 2016 22:24 - CONCLUSION: Mild calcified plaque at the carotid bulbs. No evidence of hemodynamically significant carotid stenosis. José Luis Beltran MD Objective Remarks GENERAL: Patient is 86 yo on ventilator via trach. SKIN: Warm and dry. HEAD: Normocephalic. EYES: No scleral icterus. No injection or drainage. NECK: Supple, trachea midline. No JVD or lymphadenopathy. CARDIOVASCULAR: Regular rate and rhythm without murmurs, gallops, or rubs. RESPIRATORY: Breath sounds equal bilaterally. Few coarse BS. 8.0 trach in situ GASTROINTESTINAL: Abdomen soft, non-tender, nondistended. PEG in place MUSCULOSKELETAL: No cyanosis, peripheral 2+ edema bilateral upper extremities. Neuro: Positive corneal reflex. LIDYA. Negative cough. Negative gag. Extensor posturing in uppers. Downgoing Babinski. 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 She was last seen normal, nearly 24 hours, she was not a candidate for any interventional therapy. Unfortunately, given her age, and the extent of the stroke, her prognosis for any reasonable neurologic function is quite poor. Active GI bleed discussed with family, and patient's poor prognosis. Her family continues to express wishes for aggressive medical management. Active problems: Massive posterior circulation ischemic CVA Hypoxic and hypercarbic respiratory failure Severe encephalopathy secondary to stroke Severe sepsis Healthcare associated pneumonia with pleural effusion Acute kidney injury UTI Anemia-acute and chronic Hyperglycemia of critical illness Thrombocytopenia Active GI bleed with AVM's Plan Neuro: On no sedation Monitor neuro status per ICU protocol - Avoid sedatives. Neuro is following -11/08 CT brain: Low density seen throughout the posterior circulation regions including the susan and midbrain, cerebellar hemispheres, occipital and posterior medial temporal lobes and right thalamus. This likely represents areas of infarction involving the posterior territory circulation -GCS 3T, decerebrate posturing Resp: -Continue with vent support keep sat >92% Vent bundle, Head of bed 30, bronchodilators-scheduled -s/p trach 11/23, pulm toilet, trach care -SBT daily as lia -s/p CT guided right thoracentesis 4/3 with removal 700ml clear fluid. -12/02 CXR-pulmonary edema, stable CHF, no pneumothorax, pleural effusions CVS: Monitor HR and BP keep MAP>65mmhg 2-D echo -EF 5560 %, mild aortic mitral and tricuspid regurgitation, No RWMA. Carotid ultrasound-no stenosis GI: -s/p PEG tube placement by IR 11/27 , TF held (Jevity 1.5 with goal rate 45 ml/hr ) secondary to GI bleeding -s/p EGD 11/24 showed mild gastritis unable to place PEG tube endoscopically. -Monitor LFT's, US abdomen: Stone in neck of gall bladder, no hydronephrosis -s/p transfusion 1unit PRBC last night will transfuse 2units PRBC 12/01. -12/01 CT abdomen/pelvis-generalized anasarca, trace ascites, bilateral pleural effusions right greater than left -Large gastric ulcer with active bleeding, active melena Protonix infusion 8 mg/ hour continued -IR intervention-patient is not a candidate : -Monitor renal function, I/O's, electrolytes replacement as needed. - Cr: 3.54 today -on Albumin 25gms Q12, Bumex 2mg IV BID. Renal is following- Dr. Zuniga -On Free water 250ml Q6 monitor sodium level. ID: -Continue abx per ID monitor for signs of infections ( Fever, WBC) -Urine culture 11/18/16 with Brionna albicans and E coli NOT S Levaquin, but S to zosyn -Infectious disease Dr. Wen, follow up on sputum cx 11/23: nl resp erica Heme: Monitor CBC, 5.8 for transfusion 2 units PRBC today, and platelets INR 1.3 Endo: --Medium dose sliding scale regimen Msk: --Red and sacral area, left heel wound --12/06 Wound care consulted --Specialty bed Proph: Subcutaneous heparin on hold since 11/23 secondary to thrombocytopenia, anemia and GI bleed. SCDs for DVT prophylaxis Protonix for GI prophylaxis -Palliative care is following IV access: Peripheral IV's Dispo: The patient continues to have active melena with requirements daily or every other day for transfusion of blood products. The case was discussed with Dr. Bauer, an ethics consult was initiated, the patient's son was made aware , awaiting response Level 3 Physician Aysha Raymundo MD Dec 07, 2016 16:34
--- NOTE | 2016-12-07 20:24 | HHI.HCPN ---
Reason for visit a. To assist with evaluation and management of symptoms including: pain; dyspnea; encephalopathy b. To assist medical decision maker(s) with: better understanding of current medical conditions; weighing benefits/burdens of medical treatment options; making medical treatment decisions. . Subjective/Interval History 86 y/o female with devastating posterior circulation stroke, TRACH PLACED , PEG placed and thoracentesis by IR on 11/27/16. No significant change overnight. Patient continues to produce melanotic stools. Still with periodic fevers -- Tmax 100.2. Patient remains unresponsive except for decerebrate posturing with stimulation. She is on full ventilator supportdoes not tolerate prolonged CPAP. Patient continues to have active bleeding as evidenced by her ongoing drop in hemoglobin and passage of large,tar colored stools. Bleeding presumably is from either her gastric ulcer or her AV malformations seen on EGD of 12/02/16. I believe she has already received 13 units of packed red blood cells. . Family/friend interactions Spoke to son, Wyatt, by phone for 15 minutes then this evening at bedside for 15 minutes. Wyatt wanted to know if he sent stem cells here would we inject them. He also wanted to know if he could have an fats and oils loader see her. He said he would be happy to pay for these. He asked to have her kept alive until the end of the month. I spoke again about the severity of her stroke and the type of miracle he was hoping for was equally likely to happen if we stopped transfusing and took her off the vent support. I assured him that we were not withholding any treatment -- the doctors treating her would not be receiving any special treatments that his mother is not getting. We dicussed medical team concerns that the patient would not want this if she could tell us. Keeping people alive on machines made sense when there is hope for any type of meaningful recovery, but does not make sense when it is only serving to prolong an uncomfortable dying process. I reminded him of the need for the bioethics case . He was reluctant , but finally indicated he would be available on Friday 12/15 between 12 and 12:30. I let him know that the committee would want to know why he thinks his mother would want to be kept alive on machines when the doctors feel there is no hope of recovery. Wyatt went on to say that his mother had paid into Medicare and had rarely gone to the doctor so she has not abused the system. I told him I was just concerned that we were doing things to her that were not helpful and that she probably would not want if she could see what was happening. Wyatt felt that the fact that his mother was still alive was proof that she wanted to fight to live and wanted ongoing aggressive care. . . Advance Directives Living Will: Never completed Health Care Surrogate: Never completed Durable Power of Driver/Refuse Collector: Never completed Advance Directive Specifics Date completed: Advance directives were never completed . Health Care Surrogate(s): There is no known written designation of health care surrogate . Documented care wishes: There is no written documentation of health care goals/preferences. . Objective Vital Signs Date Time Temp Pulse Resp B/P Pulse Ox O2 Delivery O2 Flow Rate FiO2 12/07/16 18:00 79 12/07/16 16:12 100 30 12/07/16 16:00 30 12/07/16 16:00 97.9 89 19 138/63 100 12/07/16 16:00 89 12/07/16 14:00 80 12/07/16 12:00 78 12/07/16 12:00 30 12/07/16 12:00 98.0 78 20 115/54 97 12/07/16 11:50 30 12/07/16 11:50 97 30 12/07/16 10:00 77 12/07/16 08:00 98.5 80 18 111/56 96 12/07/16 08:00 30 12/07/16 08:00 80 12/07/16 07:45 98 30 12/07/16 07:45 30 12/07/16 06:00 82 12/07/16 04:24 98 30 12/07/16 04:00 100.2 82 20 106/55 97 12/07/16 04:00 30 12/07/16 04:00 93 12/07/16 02:00 92 12/07/16 01:52 97 30 12/07/16 00:00 100.1 95 20 118/59 99 12/07/16 00:00 30 12/07/16 00:00 95 12/06/16 22:33 98 30 12/06/16 22:00 97 Intake & Output 12/07/16 12/07/16 07:00 19:00 Intake Total 1393 ml 774 ml Output Total 2000 ml 900 ml Balance -607 ml -126 ml IV Total 138 ml 72 ml TPN/PPN 640 ml 365 ml Lipid 155 ml 87 ml Albumin 100 ml Tube Irrigant 60 ml Other 300 ml 250 ml Output Urine Total 1950 ml 800 ml Stool Total 50 ml 100 ml . Physical Exam CONSTITUTIONAL/GENERAL: This is an adequately nourished patient, trached, mechanically ventilated; in an MICU bed. Responsiveness limited to decerebrate posturing with noxious stimuli. EYES: Injected/swollen sclerae/conjunctivae, right worse than left. TUBES/LINES/DRAINS: trach, PEG tube, Tejeda catheter; peripheral IVs; dressing LE, podus boots. CARDIOVASCULAR: Regular rate and rhythm. RESPIRATORY/CHEST: Symmetric, unlabored respirations. Breath sounds equal bilaterally. Coarse breath sounds bilaterally. No wheezes, rales. GASTROINTESTINAL: Abdomen soft, non-tender, nondistended. No hepato-splenomegaly , or palpable masses. No guarding. GENITOURINARY: Without palpable bladder distension. Tejeda catheter in place. MUSCULOSKELETAL: Extremities with edema. No mottling. NEUROLOGICAL: Does not awaken to loud voice or exam. Unable to follow commands. Decerebrate posturing to noxious stimuli. PSYCHIATRIC: Unable to evaluate due to level of responsiveness. . Diagnostic Tests Laboratory Laboratory Tests Test 12/05/16 12/05/16 12/05/16 12/05/16 04:36 04:56 11:27 15:55 Sodium Level 142 MEQ/L (136-145) Potassium Level 3.2 MEQ/L (3.5-5.1) Chloride Level 106 MEQ/L (98-107) Carbon Dioxide Level 24.8 MEQ/L (21.0-32.0) Anion Gap 11 MEQ/L (5-15) Blood Urea Nitrogen 102 MG/DL (7-18) Creatinine 3.37 MG/DL (0.50-1.00) Estimat Glomerular Filtration 13 ML/MIN (>89) Rate Random Glucose 137 MG/DL (74-106) Calcium Level 8.1 MG/DL (8.5-10.1) Phosphorus Level 3.1 MG/DL (2.5-4.9) Magnesium Level 1.9 MG/DL (1.5-2.5) White Blood Count 3.7 TH/MM3 (4.0-11.0) Red Blood Count 1.89 MIL/MM3 (4.00-5.30) Hemoglobin 5.6 GM/DL 5.5 GM/DL (11.6-15.3) (11.6-15.3) Hematocrit 16.7 % 16.6 % (35.0-46.0) (35.0-46.0) Mean Corpuscular Volume 88.2 FL (80.0-100.0) Mean Corpuscular Hemoglobin 29.5 PG (27.0-34.0) Mean Corpuscular Hemoglobin 33.4 % Concent (32.0-36.0) Red Cell Distribution Width 17.1 % (11.6-17.2) Platelet Count 52 TH/MM3 (150-450) Mean Platelet Volume 9.4 FL (7.0-11.0) Neutrophils (%) (Auto) % (16.0-70.0) Lymphocytes (%) (Auto) % (9.0-44.0) Monocytes (%) (Auto) % (0.0-8.0) Eosinophils (%) (Auto) % (0.0-4.0) Basophils (%) (Auto) % (0.0-2.0) Neutrophils # (Auto) TH/MM3 (1.8-7.7) Lymphocytes # (Auto) TH/MM3 (1.0-4.8) Monocytes # (Auto) TH/MM3 (0-0.9) Eosinophils # (Auto) TH/MM3 (0-0.4) Basophils # (Auto) TH/MM3 (0-0.2) CBC Comment AUTO DIFF Differential Total Cells 100 Counted Neutrophils % (Manual) 63 % (16-70) Band Neutrophils % 13 % (0-6) Lymphocytes % 11 % (9-44) Monocytes % 2 % (0-8) Eosinophils % 9 % (0-4) Basophils % 1 % (0-2) Neutrophils # (Manual) 2.8 TH/MM3 (1.8-7.7) Metamyelocytes 1 % (0-1) Nucleated Red Blood Cells 2 /100 WBC (0-0) Differential Comment FINAL DIFF MANUAL Platelet Estimate LOW (NORMAL) Platelet Morphology Comment NORMAL (NORMAL) Polychromasia 2.4 % (0.0-1.9) Acanthocytes OCC (NORMAL) Blood Type O POSITIVE Antibody Screen POSITIVE Crossmatch Leukocyte-Reduced Red Blood Cells Blood Bank Comment Test 12/06/16 12/07/16 05:45 04:01 White Blood Count 6.0 TH/MM3 6.7 TH/MM3 (4.0-11.0) (4.0-11.0) Red Blood Count 2.30 MIL/MM3 1.92 MIL/MM3 (4.00-5.30) (4.00-5.30) Hemoglobin 7.0 GM/DL 6.3 GM/DL (11.6-15.3) (11.6-15.3) Hematocrit 20.8 % 17.5 % (35.0-46.0) (35.0-46.0) Mean Corpuscular Volume 90.4 FL 90.9 FL (80.0-100.0) (80.0-100.0) Mean Corpuscular Hemoglobin 30.5 PG 32.7 PG (27.0-34.0) (27.0-34.0) Mean Corpuscular Hemoglobin 33.8 % 36.0 % Concent (32.0-36.0) (32.0-36.0) Red Cell Distribution Width 15.4 % 15.5 % (11.6-17.2) (11.6-17.2) Platelet Count 66 TH/MM3 62 TH/MM3 (150-450) (150-450) Mean Platelet Volume 8.9 FL 9.8 FL (7.0-11.0) (7.0-11.0) Prothrombin Time 14.5 SEC 14.7 SEC (9.8-11.6) (9.8-11.6) Prothromb Time International 1.3 RATIO 1.3 RATIO Ratio Sodium Level 144 MEQ/L (136-145) Potassium Level 3.1 MEQ/L (3.5-5.1) Chloride Level 108 MEQ/L (98-107) Carbon Dioxide Level 26.4 MEQ/L (21.0-32.0) Anion Gap 10 MEQ/L (5-15) Blood Urea Nitrogen 117 MG/DL (7-18) Creatinine 3.05 MG/DL (0.50-1.00) Estimat Glomerular Filtration 14 ML/MIN (>89) Rate Random Glucose 133 MG/DL (74-106) Calcium Level 8.3 MG/DL (8.5-10.1) . Result Diagram: 12/07/16 0401 12/07/16 0401 Imaging Last Impressions Chest X-Ray 12/07/16 0600 Signed Impressions: Service Date/Time: November 02:30 - CONCLUSION: Diffuse bilateral patchy airspace disease and suspect small pleural effusions. Leonardo Yung MD Thoracentesis 12/01/16 0000 Signed Impressions: Service Date/Time: Thursday, December 01, 2016 18:56 - CONCLUSION: Uncomplicated CT-guided thoracentesis. Jeffery Alvarado MD Chest CT 12/01/16 0000 Signed Impressions: Service Date/Time: Thursday, December 01, 2016 13:09 - CONCLUSION: Bilateral pleural effusion, larger on the right than the left. Mack Cao MD FACR Abdomen/Pelvis CT 12/01/16 0000 Signed Impressions: Service Date/Time: Thursday, December 01, 2016 13:09 - CONCLUSION: 1. Right inguinal hernia containing only fluid. 2. Generalized anasarca. 3. Trace ascites. 4. Bilateral pleural effusions, larger on the right than the left. Mack Cao MD FACR Abdomen Ultrasound 11/27/16 0000 Signed Impressions: Service Date/Time: Sunday, November 27, 2016 08:35 - CONCLUSION: Stone in the neck of the gallbladder. Trace ascites and mild splenomegaly Jeffery Alvarado MD Gastrostomy Tube Placement 11/24/16 0000 Signed Impressions: Service Date/Time: Sunday, November 27, 2016 14:34 - CONCLUSION: Uncomplicated gastrostomy tube placement as above. Kirit Alcantar MD Head CT 11/08/16 1657 Signed Impressions: Service Date/Time: Tuesday, November 08, 2016 17:06 - CONCLUSION: Low density seen throughout the posterior circulation regions including the susan and midbrain, cerebellar hemispheres, occipital and posterior medial temporal lobes and right thalamus. This likely represents areas of infarction involving the posterior territory circulation. Jeffery Zhong MD Carotid Artery Ultrasound 11/08/16 0000 Signed Impressions: Service Date/Time: Tuesday, November 08, 2016 22:24 - CONCLUSION: Mild calcified plaque at the carotid bulbs. No evidence of hemodynamically significant carotid stenosis. José Luis Beltran MD . Procedures * Intubation/mechanical ventilation * Trach 11/23/16 * PEG tube placement * EGD 12/02/16 . . Assessment and Plan Disease Oriented Problem List: (1) CVA (cerebral vascular accident) Comment: Very large posterior circulation stroke. No signs of neurological recovery. Prognosis grim. . . (2) Rhabdomyolysis Comment: Resolved. (3) Dementia Comment: Family reports at least a 7 year history of dementia. . (4) Gastrointestinal hemorrhage Comment: EGD on 12/02/16 revealed a gastric ulcer and multiple duodenal AVMs. In spite of attempts to cauterize these via EGD, patient continues to bleed and pass melanotic stools. Multiple transfusions have been provided. . (5) Anemia (6) Malnutrition Comment: Presenting albumin level was 2.8 . (7) Urinary tract infection Comment: Cx of 11/08 --> E coli and Enterococcus; Cx 11/18 E. coli and Brionna . (8) Thrombocytopenia (9) Pneumonia Comment: Sputum cx of 11/12 growing Staph aureus. . Symptom Scale: (1) Pain 0-10 Scale: Unable to quantify Comment: Patient had no known prior pain syndromes. Current possible sources of pain include prolonged bedbound status; vascular access catheters; Tejeda catheter. . (2) Dyspnea 0-10 Scale: Unable to quantify Comment: Dyspnea currently controlled with mechanical ventilation. . (3) Encephalopathy 0-10 Scale: Unable to quantify Comment: Patient was minimally responsive on arrival. No evidence of neurologic recovery. Her only response now is decerebrate posturing with stimulation. Off all sedation. . Pertinent Non-Medical Issues Psychosocial: Normally lives with her sister. Her son lives by visits frequently. 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 The patient's son, Wyatt, has consented to multiple blood transfusions now telling us that the patient was not "devout" in terms of her believes as a Confucianist. Legal: No advance directives. Son would be the appropriate proxy health care decision-maker under the [place] statutes hierarchy. Ethical issues impacting care: Patient is incapacitated to make her own health care decisions and is not expected to regain such capacity. Patient's care is deemed to be futile per the vast majority of medical team members. There are concerns that ongoing aggressive care will only serve to prolong and uncomfortable dying process. . . Important Contacts Wyatt Crawford (son and healthcare proxy) [phone] . Prognosis This is an 86-year-old female who was suffered a fairly massive posterior circulation stroke. This is on top of at least a seven-year history of dementia with the patient was already requiring assistance with most of her ADLs. There is a high risk of during this hospitalization. Should she survive, she will not have meaningful interaction with her environment. In spite of bleak prognosis, the patient's son has insisted on ongoing aggressive care. The patient has managed to remain alive but there is been no evidence of neurologic recovery. She is unresponsive except for decerebrate posturing with stimulation. She now is actively GI bleeding from a combination of a gastric ulcer and multiple duodenal AVMs. She has received multiple transfusions. It does not appear we will be able to stop this bleeding. The patient would certainly be eligible for hospice services at such time that family believes the patient's goals would best be honored by transitioning to "comfort measures only." . . Code Status: Full Code Plan * FULL CODE: The patient's son changed his mind and asked that she be transitioned back to FULL CODE STATUS on 12/03/16 * DECISION-MAKING: The patient lacks capacity for decision-making, and she will not regain capacity. Her son, Wyatt Crawford, is the legal health care proxy. * GOALS: The patient is a Confucianist. The son indicates now that she has not been devout and that is why he has agreed to multiple blood transfusions. Son has continued to ask for ongoing aggressive care and patient has now undergone both trach and PEG. * SYMPTOMS: It is difficult to know when she has pain or dyspnea, and we will continue to observe closely for signs of suffering. Certainly her bedbound status and recent procedures could be painful. No new med recommendations at this time. * Drs. Cartwright and Javad have requested a meeting of the bioethics committee to discuss this case. I informed the son about this development and let him know I would like him to attend to explain to medical team members why he believes his mother would want ongoing aggressive care given the conversations he has had with the physicians. Wyatt seemed uninterested in attending and seemed to be avoiding but on 12/07/16 agreed to attend midday on 12/15/16. Will try to arrange with physicians and other medical team members. * Palliative care will continue to follow to assist with symptom management and to help clarify goals of medical treatment as the clinical course evolves. . . Time Spent Total Floor Time (mins): 40 (Total floor time included chart review, patient exam, phone conversation with health care surrogate, and bedisde conversation with health care surrogate. ) Face to Face Time (mins): 15 >50% Counseling/Coord of Care: Yes Attestation To help prompt me to consider important information that might be impacting today's encounter and assessment, information from prior notes written by myself or my colleagues may have been "brought forward" into today's note. My signature on this note, however, is an attestation that I personally performed the exam, history, and/or decision-making noted today, and, unless otherwise indicated, the interactions with patient, family, and staff as well as the review of records all occurred today. I also attest that the listed assessment and stated plan reflect my best clinical judgment today based on the combination of historical information, prior notes, and today's exam/ interactions. When time spent is documented, it refers only to time spent today by the signer, or if indicated, combined time spent today by collaborating physician/nurse practitioner. . Karlos Bauer MD Dec 07, 2016 20:24
[2016-12-07] MEDS: FAT EMULSION 20% INJ 250 ML (@10 mls/hr) IV SCH (20:48)
[2016-12-07] MEDS: CLINIMIX 4.25/5 (Cust.Renal Periph) 1000 mL- </= 42 mls/hr IV SCH ×8 (20:48)
[2016-12-08] VITALS (16 sets, daily range): BP systolic 108–129; BP diastolic 51–59; PULSE 79–89; RESP 15–20; TEMP 98.7–99.3; O2SAT 97–100
[2016-12-08] MEDS: ALBUMIN HUMAN 25% 25 GM/100 ML BAGP IV SCH ×2 (03:18→15:58)
[2016-12-08] MEDS: HIGH DOSE INSULIN NOVOLIN REGULAR SUPPLEMENTAL SCALE SQ SCH ×6 (03:27→20:00)
[2016-12-08] MEDS: CHLORHEXIDINE GLUCONATE 2 % 1 PACK (2 CLOTHS) TOP SCH (03:27)
[2016-12-08] MEDS: PANTOPRAZOLE INJ 80 MG in SODIUM CHLORIDE 0.9% INJ 100 ML IV SCH ×2 (03:49→18:10)
[2016-12-08] MEDS: FREE WATER G-TUBE SCH ×4 (06:00→17:28)
[2016-12-08 06:20] LABS: AUTOMATED NEUTROPHIL # 4.5 TH/MM3 (1.8-7.7); BASOPHIL % 0.6 % (0.0-2.0); EOSINOPHIL # 1.3 TH/MM3 (0-0.4); EOSINOPHIL % 18.6 % (0.0-4.0); LYMPH % 9.2 % (9.0-44.0); LYMPHOCYTE # 0.7 TH/MM3 (1.0-4.8); MEAN CELL VOLUME 94.4 FL (80.0-100.0); MEAN CORPUSCULAR HEMOGLOBIN 32.2 PG (27.0-34.0); MEAN CORPUSCULAR HGB CONC 34.1 % (32.0-36.0); MONO % 8.7 % (0.0-8.0); NEUT % 62.9 % (16.0-70.0); PLATELET COUNT 59 TH/MM3 (150-450); RED CELL DISTRIBUTION WIDTH 15.9 % (11.6-17.2); WHITE BLOOD COUNT 7.1 TH/MM3 (4.0-11.0)
[2016-12-08 06:23] LABS: HEMO FLAGS AUTO DIFF
[2016-12-08 06:25] LABS: HEMATOCRIT 16.9 % (35.0-46.0)
[2016-12-08 06:53] LABS: BICARBONATE 24.2 MEQ/L (21.0-32.0); MAGNESIUM 1.7 MG/DL (1.5-2.5); POTASSIUM 3.3 MEQ/L (3.5-5.1)
[2016-12-08 07:31] LABS: BANDS 17 % (0-6); BASOPHILS 1 % (0-2); CORRECTED NUCLEATED RBC 2 /100 WBC (0-0); EOSINOPHILS 16 % (0-4); METAMYELOCYTES 1 % (0-1); MYELOCYTES 1 % (0-0); NEUTROPHIL # MANUAL DIFF 4.8 TH/MM3 (1.8-7.7); POLYS (SEG NEUTROPHILS) 49 % (16-70); WBC DIFF SAMPLE 100
[2016-12-08 07:32] LABS: POLYCHROMASIA 2.7 % (0.0-1.9)
[2016-12-08 07:33] LABS: KERATOCYTES OCC (NORMAL); PLATELET ESTIMATE SMEAR LOW (NORMAL); PLATELET MORPHOLOGY NORMAL (NORMAL)
[2016-12-08 07:34] LABS: SCAN/DIFF FINAL DIFF MANUAL
[2016-12-08] MEDS: SODIUM CHLORIDE 0.9% FLUSH 5 ML FLUSH IV FLUSH SCH ×2 (09:00→20:15)
[2016-12-08] MEDS: ARTIFICIAL TEARS OPTH SOLN 15 ML BTL EACH EYE SCH ×3 (09:00→17:28)
[2016-12-08] MEDS: EPOETIN ALFA 10,000 UNITS/ML VIAL SQ SCH (09:37)
[2016-12-08] MEDS: CHLORHEXIDINE 0.12% (ORAL KIT) 15 ML CUP MT SCH ×2 (09:39→20:14)
[2016-12-08] MEDS: BUMETANIDE INJ 1 MG/4 ML VIAL IV PUSH SCH ×2 (09:41→17:28)
[2016-12-08] MEDS: FERROUS SULFATE 300 MG /5ML UDC PO SCH ×2 (09:41→20:14)
--- NOTE | 2016-12-08 10:26 | HHI.NPPN ---
Subjective History of Present Illness 86 year old with CVA, Resp failure s/p Trach/ PEG Additional Remarks Remains intubated, ongoing anemia. Objective Data Data 12/07/16 12/08/16 19:00 07:00 Intake Total 774 ml 1681 ml Output Total 900 ml 2400 ml Balance -126 ml -719 ml Intake Oral 0 ml IV Total 72 ml 635 ml TPN/PPN 365 ml 555 ml Lipid 87 ml 141 ml Albumin 100 ml Other 250 ml 250 ml Output Urine Total 800 ml 2000 ml Stool Total 100 ml 400 ml Vital Signs Date Time Temp Pulse Resp B/P Pulse Ox O2 Delivery O2 Flow Rate FiO2 12/08/16 07:54 100 30 12/08/16 06:00 86 12/08/16 04:00 30 12/08/16 04:00 89 12/08/16 04:00 98.8 89 15 112/51 97 12/08/16 03:40 97 30 12/08/16 02:00 86 12/08/16 00:00 98.9 86 15 108/54 98 12/08/16 00:00 86 12/08/16 00:00 30 12/07/16 23:40 97 30 12/07/16 22:00 85 12/07/16 20:00 81 12/07/16 20:00 98.5 81 15 106/51 100 12/07/16 20:00 100 30 12/07/16 20:00 30 12/07/16 18:00 79 12/07/16 16:12 100 30 12/07/16 16:00 30 12/07/16 16:00 97.9 89 19 138/63 100 12/07/16 16:00 89 12/07/16 14:00 80 12/07/16 12:00 78 12/07/16 12:00 30 12/07/16 12:00 98.0 78 20 115/54 97 12/07/16 11:50 30 12/07/16 11:50 97 30 -: 12/08/16 0514 12/08/16 0514 Physical Exam General Appearance: Pale Neck Neck Remarks s/p trach Pulmonary Resp Exam: Decreased Bases Cardiology CV Exam: Regular Gastrointestinal/Abdomen GI Exam: Soft, Non-Tender Extremeties Extremities Exam: Moderate Edema Assessment/Plan Problem List: (1) Acute renal failure Plan: Patient has multiple issues and has malnutrition with poor albumin contributing to low oncotic pressure, ATN creatinine stable: 3.6 -> 3.5 -> 3.5 --> 3.4 --> 3.37 --> 3.05 --> 2.77 BUN 127 due to GI Bleeding On Bumex 2 mg IV q12 - continue for now. Good UOP with 2.8 L/ 24 hours replace K no meaningful recovery from CVA at this point Palliative care following. Apparently son would like to fly her to [place] for stem cell treatment. Continue to follow goals of care. 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 Ongoing anemia, continue to monitor. getting PRBC on regular interval agree with Palliative care ethics meeting with son as futile care with hopeless situation and no chance of meaningful recovery (2) Metabolic acidosis Plan: Stable, continue to monitor (3) Pneumonia Plan: On vent treated earlier with antibiotic (4) Urinary tract infection Plan: Escherichia coli she was treated (5) CVA (cerebral vascular accident) Plan: Massive stroke neurology following (6) Rhabdomyolysis Plan: This resolved (7) Hypernatremia Plan: Given 1L of DW over weekend improved Continue to monitor, repeat as necessary Problem Qualifiers (1) Acute renal failure: Qualified Code: N17.9 - Acute renal failure, unspecified acute renal failure type (2) CVA (cerebral vascular accident): Qualified Code: I63.9 - Cerebrovascular accident (CVA), unspecified mechanism (3) Rhabdomyolysis: Qualified Code: M62.82 - Non-traumatic rhabdomyolysis Kristel Zuniga MD Dec 08, 2016 10:26
[2016-12-08] MEDS ORDERED: POTASSIUM CHLOR 40 MEQ PREMIX 100 ML IV ONE (10:30)
[2016-12-08] MEDS: POTASSIUM CHLOR 20 MEQ PREMIX 100 ML IV SCH ×2 (12:38→14:19)
--- NOTE | 2016-12-08 15:05 | HHI.CCPN ---
Subjective Remarks/Hospital Course This is an 86yF with per report no other past medical history who presented to the ER after she was found unresponsive in her bed. According to ER reports, her family saw her normal last night when she had a fall, with unknown LOC. At that point, he helped her back to bed. However, this morning she did not wake up. On arrival to the ER, she was unresponsive only withdrawing to pain. she was intubated for airway protection and a poor GCS. CT head demonstrated massive posterior-circulation ischemic stroke. The patient is currently intubated and unresponsive and cannot provide any additional history. 11/09: No acute changes overnight. Palliative care team has consult with the family regarding goals of care. Currently the patient's sedation fentanyl infusion has been turned off without any response from patient. The patient notably does withdrawal to pain. 11/10: No change in neurological status. [id number]. The patient withdraws to pain 4 extremities. The patient currently on no sedation, fentanyl infusion discontinued yesterday. Tube feeds were initiated. The patient's urine culture grew back Escherichia coli, the patient was started on antibiotics. Extensive discussion with son regarding patient's neurological status, son Wyatt has had extensive discussion with palliative care.The son feels that yesterday when the patient was spoken to in Mongolian the patient squeezed his hand and desires aggressive treatment. The patient's neuro status is unchanged, totally unresponsive with occasional reflexive twitching of feet B/L. Follow-up with neurology Dr. Pack, guarding any further imaging studies. 11/13: No change in neuro exam. Palliative care following. Family wanting full aggressive care. Palliative care will address early trach PEG 11/14: No improvement in neuro status. Son has not made decisions regarding trach and PEG. Apparently he wants to wait longer to see any improvement 11/15: Remains unresponsive. Neuro exam with extensor posturing-unchanged. Son requesting aggressive care. Continues to have low-grade fever 11/16: Clinically no improvement. Tolerates CPAP. Unable to extubate as patient will not protect airway 11/17: Tolerating C Pap but no change in neuro exam. Hemoglobin noted to be 6.8 hemodynamically stable 11/18: Became tachycardic and hypotensive early a.m., placed on assist control. Otherwise neuro exam remains unchanged 11/19: Continues to spike fever Tmax 102, started on vancomycin and cefepime in addition to Levaquin yesterday. Currently only low-grade fever. Received 2 units of blood for hemoglobin of 5.3. CBC pending at this time. No improvement in neuro exam 11/20: White count is 18.3 today, MAXIMUM TEMPERATURE 103.1. Chest x-ray showing right sided infiltrate. Urine culture with gram-negative rods and Brionna albicans. ID consulted Diflucan added 11/21/16: Tmax 101.5. Bilateral lung infiltrates, R>L but slightly improved. No improvement in neuro exam. ID consulted and following. 11/22/16: No fever. CT chest- moderate to large R pleural effusion, bilateral lung infiltrates. ABX per ID. CXR today shows increasing bilateral infiltrates and effusion right more than left. Almost near complete infiltrates on the right lung [place]. Vaginally worsening creatinine today 1.45 indicating multiorgan failure 11/23/16: Hb 9.8 today after 2U PRBC yesterday. Plan for tracheostomy today. INR normal platelet count 116. Worsening creatinine today is 1.6. UO 550 ml in 24 hours. 1L NS bolus and 75 ml per hour maintenance NS. Started on Dopamine 3 mcg per min to maintain MAP>65 11/24 Patient is on ventilator via trach. Afebrile. On Dopamine 4 mics. 11/25 No acute events overnight. s/p EGD yesterday showed mild gastritis unable to place PEG tube endoscopically. Remains on Dopamine 4 mics. On no sedation unresponsive. 11/26 No acute events overnight. On CPAP with PS 20, PEEP: 5 and FIO2 40%. Afebrile. Off Dopamine. Afebrile. 11/27 Patient remains on ventilator via trach on no drips. Afebrile. For PEG tube placement by IR today. 11/28 Patient s/p PEG tube placement by IR yesterday, s/p Right thoracentesis with removal 700ml CXR showed better aeration of lungs, Hgb 6.7 this morning 2units PRBC ordered. Renal function worse with Cr: 3.40 from 2.85 . 11/29: Remains encephalopathic on mechanical ventilation via tracheostomy. 11/30: Remains encephalopathic on mechanical ventilation via tracheostomy. 12/01 Patient s/p transfusion 1unit PRBC last night for Hgb 5.8 in addition to 2L NS. Hgb 6.5 this morning. 12/02: Afebrile. The patient underwent CT-guided thoracentesis yesterday with approximately 600 cc removed. Chest x-ray pending this a.m.. Patient received packed red blood cell 2 units yesterday. Hemoglobin 7.4. Pending EGD today. 12/03:The patient underwent EGD yesterday with Dr. Farnsworth patient was noted to have a large active bleeding ulcer in the body of the stomach, multiple AVMs. Multiple ablations performed. This a.m. hemoglobin dropped to 6.1, platelet count 38. The patient was transfused 2 PRBC, and a unit of platelets. Patient still not relieved receiving any nutrition will begin PPN today. The patient continues to have copious amounts of melena with fecal incontinence apparatus in place. 12/04: The patient continues to have copious melena. PT INR drawn last evening INR was noted to be 13.5. The patient received KCentra, and current INR 1.3 the family requests aggressive measures to be continued. No further interventions from gastroenterology per . IR deemed the patient not a candidate for arteriography or endovascular treatment. 12/05: Patient's current medical status unchanged. Large tarry stools, acute blood loss anemia continues in conjunction with thrombocytopenia. During the night the nurse reported a malodorous scent was noted in free water flush container for instillation through G-tube. It was noted to be possibly fish oil , patient's son was in the room during that time. Container removed. The patient is noted to have a hemoglobin level of 5.8 today will receive 2 units of packed red blood cells and 1 unit of platelets today. 12/06: The patient continues to have copious melena. The patient received one 6 pack of platelets, and 2 units of blood yesterday. Tonight as reported by the nurse in the evening the son continue to utilize fish oil in the patient's free water, which was removed by the nurse. Ethics committee consult was initiated with Dr. Bauer yesterday, regarding assessing goals of care. 12/07: The patient's INR 1.3. Patient received 2 units of blood and one 6 pack of platelets yesterday. Awaiting ethics committee meeting with Dr. Bauer. The patient continues to require transfusions. 4/14: Patient was noted to have a drop in hemoglobin this a.m.. The patient is being transfused 2 units of PRBCs, with noted difficulty obtaining unit secondary to antibodies. Hematology will be consulted. Bioethics committee meeting planned to convene in one week, patient's son has agreed to attend. Objective Vital Signs Date Time Temp Pulse Resp B/P Pulse Ox O2 Delivery O2 Flow Rate FiO2 12/08/16 13:09 100 30 12/08/16 08:00 86 12/08/16 08:00 98.7 19 129/53 Intake and Output 12/07/16 12/07/16 12/08/16 08:00 16:00 00:00 Intake Total 837 ml 774 ml 896 ml Output Total 850 ml 900 ml 1200 ml Balance -13 ml -126 ml -304 ml Result Diagram: 12/08/16 0514 12/08/16 0514 Imaging Last Impressions Chest X-Ray 11/27/16 1522 Signed Impressions: Service Date/Time: Sunday, November 27, 2016 15:24 - CONCLUSION: 1. Marked improvement in right lung aeration post thoracentesis. No pneumothorax. 2. Improving bilateral airspace disease. Persistent, small left basilar consolidation/effusion Kirit Alcantar MD Thoracentesis 11/27/16 0000 Signed Impressions: Service Date/Time: Sunday, November 27, 2016 14:18 - CONCLUSION: Uncomplicated ultrasound guided thoracentesis. Kirit Alcantar MD Abdomen Ultrasound 11/27/16 0000 Signed Impressions: Service Date/Time: Sunday, November 27, 2016 08:35 - CONCLUSION: Stone in the neck of the gallbladder. Trace ascites and mild splenomegaly Jeffery Alvarado MD Gastrostomy Tube Placement 11/24/16 0000 Signed Impressions: Service Date/Time: Sunday, November 27, 2016 14:34 - CONCLUSION: Uncomplicated gastrostomy tube placement as above. Kirit Alcantar MD Chest CT 11/21/16 0000 Signed Impressions: Service Date/Time: Monday, November 21, 2016 22:57 - CONCLUSION: 1. Moderate size right pleural effusion and small left pleural effusion. Right effusion has increased over the last day compared with a recent chest radiograph. 2. Bilateral lung consolidation as above. Differential diagnosis includes pneumonia and aspiration. Emeterio Freire MD Head CT 11/08/16 2789 Signed Impressions: Service Date/Time: Tuesday, November 08, 2016 17:06 - CONCLUSION: Low density seen throughout the posterior circulation regions including the susan and midbrain, cerebellar hemispheres, occipital and posterior medial temporal lobes and right thalamus. This likely represents areas of infarction involving the posterior territory circulation. Jeffery Zhong MD Carotid Artery Ultrasound 11/08/16 0000 Signed Impressions: Service Date/Time: Tuesday, November 08, 2016 22:24 - CONCLUSION: Mild calcified plaque at the carotid bulbs. No evidence of hemodynamically significant carotid stenosis. José Luis Beltran MD Objective Remarks GENERAL: Patient is 86 yo on ventilator via trach. SKIN: Warm and dry. HEAD: Normocephalic. EYES: No scleral icterus. No injection or drainage. NECK: Supple, trachea midline. No JVD or lymphadenopathy. CARDIOVASCULAR: Regular rate and rhythm without murmurs, gallops, or rubs. RESPIRATORY: Breath sounds equal bilaterally. Few coarse BS. 8.0 trach in situ GASTROINTESTINAL: Abdomen soft, non-tender, nondistended. PEG in place MUSCULOSKELETAL: No cyanosis, peripheral 2+ edema bilateral upper extremities. Neuro: Positive corneal reflex. LIDYA. Negative cough. Negative gag. Extensor posturing in uppers. Downgoing Babinski. 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 She was last seen normal, nearly 24 hours, she was not a candidate for any interventional therapy. Unfortunately, given her age, and the extent of the stroke, her prognosis for any reasonable neurologic function is quite poor. Active GI bleed discussed with family, and patient's poor prognosis. Her family continues to express wishes for aggressive medical management. Bioethics has been consulted. Active problems: Massive posterior circulation ischemic CVA Hypoxic and hypercarbic respiratory failure Severe encephalopathy secondary to stroke Severe sepsis Healthcare associated pneumonia with pleural effusion Acute kidney injury UTI Anemia-acute and chronic Hyperglycemia of critical illness Thrombocytopenia Active GI bleed with AVM's Plan Neuro: Monitor neuro status per ICU protocol - Avoid sedatives. Neuro is following -11/08 CT brain: Low density seen throughout the posterior circulation regions including the susan and midbrain, cerebellar hemispheres, occipital and posterior medial temporal lobes and right thalamus. This likely represents areas of infarction involving the posterior territory circulation -GCS 3T, decerebrate posturing Resp: -Continue with vent support keep sat >92% Vent bundle, Head of bed 30, bronchodilators-scheduled -s/p trach 11/23, pulm toilet, trach care -SBT daily as lia -s/p CT guided right thoracentesis 11/27 with removal 700ml clear fluid. -12/02 CXR-pulmonary edema, stable CHF, no pneumothorax, pleural effusions CVS: Monitor HR and BP keep MAP>65mmhg 2-D echo -EF 5560 %, mild aortic mitral and tricuspid regurgitation, No RWMA. Carotid ultrasound-no stenosis GI: -s/p PEG tube placement by IR 11/27 , TF held (Jevity 1.5 with goal rate 45 ml/hr ) secondary to GI bleeding -s/p EGD 11/24 showed mild gastritis unable to place PEG tube endoscopically. -Monitor LFT's, US abdomen: Stone in neck of gall bladder, no hydronephrosis -s/p transfusion 1unit PRBC last night will transfuse 2units PRBC 12/01. -12/01 CT abdomen/pelvis-generalized anasarca, trace ascites, bilateral pleural effusions right greater than left -Large gastric ulcer with active bleeding, active melena Protonix infusion 8 mg/ hour continues -IR intervention-patient is not a candidate : -Monitor renal function, I/O's, electrolytes replacement as needed. - Cr: 3.54 today -on Albumin 25gms Q12, Bumex 2mg IV BID. Renal is following- Dr. Zuniga -On Free water 250ml Q6 monitor sodium level. ID: -Continue abx per ID monitor for signs of infections ( Fever, WBC) -Urine culture 11/18/16 with Brionna albicans and E coli NOT S Levaquin, but S to zosyn -Infectious disease Dr. Wen, follow up on sputum cx 11/23: nl resp erica Heme Monitor CBC, 5.8 for transfusion 2 units PRBC Hematology consulted - patient with multiple antibodies, continued bleeding requiring daily transfusions of PRBCs INR 1.3 Endo: --Medium dose sliding scale regimen Msk: --Red and sacral area, left heel wound --12/06 Wound care consulted --Specialty bed-Airflow Proph: Subcutaneous heparin on hold since 11/23 secondary to thrombocytopenia, anemia and GI bleed. SCDs for DVT prophylaxis Protonix for GI prophylaxis -Palliative care is following IV access: Peripheral IV's Dispo: The patient continues to have active melena with requirements daily or every other day for transfusion of blood products. The case was discussed with Dr. Bauer, Bioethics committee meeting planned for next week. The patient continues to require 2 units of packed cells daily to maintain a hemoglobin of 7 secondary to active bleeding. Hematology consult regarding the risk/benefit of receiving daily packed red blood cells in the setting of acute active bleeding, and antibody exposure. Level 3 Physician Aysha Raymundo MD Dec 08, 2016 15:05
[2016-12-08] MEDS ORDERED: SODIUM PHOSPHATE INJ 30 MMOL in SODIUM CHLOR 0.9% 250 ML INJ 250 ML IV ONE (19:00)
--- NOTE | 2016-12-08 20:11 | HHI.HCPN ---
Reason for visit a. To assist with evaluation and management of symptoms including: pain; dyspnea; encephalopathy b. To assist medical decision maker(s) with: better understanding of current medical conditions; weighing benefits/burdens of medical treatment options; making medical treatment decisions. . Subjective/Interval History 86 y/o female with devastating posterior circulation stroke, TRACH PLACED , PEG placed and thoracentesis by IR on 11/27/16. No significant change overnight. Patient remains unresponsive except for decerebrate posturing with stimulation. She is on full ventilator supportNo CPAP trial today. . Patient continues to have active bleeding as evidenced by her ongoing drop in hemoglobin and passage of large,tar colored stools. Bleeding presumably is from either her gastric ulcer or her AV malformations seen on EGD of 12/02/16. I believe she has already received 13 units of packed red blood cells --Continues to require almost daily transfusions and because of antigens, she is challenging to match. Case discussed with scrum project manager -- Dr. Cartwright. . Family/friend interactions Received another telephone call from son, Wyatt , and then met him at the bedside this evening. He called to tell me he could not attend the Bioethics Committee mtg on 12/15 as he initially said he would. He wants to delay it until the following Sunday. He is unable to get more time off work. I offered to speak to his employer and he declined. He had many questions about the Bioethics committee meeting. I let him know he could bring whoever he wanted and that the Committee would just want to hear directly from him why he thought that his mother would want to continue receiving this type of care when the entire medical team felt it was not helping her and that she would not get better. They wanted to understand his perspective to make sure the patient's goals/ preferences were being honored. We reviewed some of this in person as well. He told me he was hoping that God would make the decision and he wouldn't have to make a decision that would lead to her . He talked again about getting stem cell infusions and acupuncture. He talked about the Heather Blackburn case and keeping patients alive a long time. He talked about giving more time so relatives outside of the country could visit her before she dies. I asked if he had contacted them yet, and he said he was having difficulties getting addresses. Ultimately, he told me he did not want to keep her on the machines forever. He wanted to keep her alive until 12/20 and then he would stop the blood transfusions. . Advance Directives Living Will: Never completed Health Care Surrogate: Never completed Durable Power of Rand Butting Machine Operator: Never completed Advance Directive Specifics Date completed: Advance directives were never completed . Health Care Surrogate(s): There is no known written designation of health care surrogate . Documented care wishes: There is no written documentation of health care goals/preferences. . Objective Vital Signs Date Time Temp Pulse Resp B/P Pulse Ox O2 Delivery O2 Flow Rate FiO2 12/08/16 18:00 79 12/08/16 16:00 80 12/08/16 16:00 99.0 80 20 110/53 98 12/08/16 16:00 30 12/08/16 14:00 88 12/08/16 13:09 100 30 12/08/16 12:00 30 12/08/16 12:00 86 12/08/16 12:00 99.3 86 17 117/55 98 12/08/16 10:00 84 12/08/16 08:00 30 12/08/16 08:00 86 12/08/16 08:00 98.7 86 19 129/53 99 12/08/16 07:54 100 30 12/08/16 06:00 86 12/08/16 04:00 30 12/08/16 04:00 89 12/08/16 04:00 98.8 89 15 112/51 97 12/08/16 03:40 97 30 12/08/16 02:00 86 12/08/16 00:00 98.9 86 15 108/54 98 12/08/16 00:00 86 12/08/16 00:00 30 12/07/16 23:40 97 30 12/07/16 22:00 85 12/07/16 20:00 81 12/07/16 20:00 98.5 81 15 106/51 100 12/07/16 20:00 100 30 12/07/16 20:00 30 Intake & Output 12/08/16 12/08/16 07:00 19:00 Intake Total 1681 ml 1403 ml Output Total 2400 ml 1200 ml Balance -719 ml 203 ml Intake Oral 0 ml IV Total 635 ml 641 ml TPN/PPN 555 ml 333 ml Lipid 141 ml 79 ml Albumin 100 ml 100 ml Other 250 ml 250 ml Output Urine Total 2000 ml 950 ml Stool Total 400 ml 250 ml . Physical Exam CONSTITUTIONAL/GENERAL: This is an adequately nourished patient, trached, mechanically ventilated; in an MICU bed. Responsiveness limited to decerebrate posturing with noxious stimuli. EYES: Injected/swollen sclerae/conjunctivae, right worse than left. TUBES/LINES/DRAINS: trach, PEG tube, Tejeda catheter; peripheral IVs; dressing LE, podus boots. CARDIOVASCULAR: Regular rate and rhythm. RESPIRATORY/CHEST: Symmetric, unlabored respirations. Breath sounds equal bilaterally. Coarse breath sounds bilaterally. No wheezes, rales. GASTROINTESTINAL: Abdomen soft, non-tender, nondistended. No hepato-splenomegaly , or palpable masses. No guarding. GENITOURINARY: Without palpable bladder distension. Tejeda catheter in place. MUSCULOSKELETAL: Extremities with edema. No mottling. NEUROLOGICAL: Does not awaken to loud voice or exam. Unable to follow commands. Decerebrate posturing to noxious stimuli. PSYCHIATRIC: Unable to evaluate due to level of responsiveness. . Diagnostic Tests Laboratory Laboratory Tests Test 12/06/16 12/07/16 12/08/16 12/08/16 05:45 04:01 05:14 08:30 White Blood Count 6.0 TH/MM3 6.7 TH/MM3 7.1 TH/MM3 (4.0-11.0) (4.0-11.0) (4.0-11.0) Red Blood Count 2.30 MIL/MM3 1.92 MIL/MM3 1.80 MIL/MM3 (4.00-5.30) (4.00-5.30) (4.00-5.30) Hemoglobin 7.0 GM/DL 6.3 GM/DL 5.8 GM/DL (11.6-15.3) (11.6-15.3) (11.6-15.3) Hematocrit 20.8 % 17.5 % 16.9 % (35.0-46.0) (35.0-46.0) (35.0-46.0) Mean Corpuscular Volume 90.4 FL 90.9 FL 94.4 FL (80.0-100.0) (80.0-100.0) (80.0-100.0) Mean Corpuscular Hemoglobin 30.5 PG 32.7 PG 32.2 PG (27.0-34.0) (27.0-34.0) (27.0-34.0) Mean Corpuscular Hemoglobin 33.8 % 36.0 % 34.1 % Concent (32.0-36.0) (32.0-36.0) (32.0-36.0) Red Cell Distribution Width 15.4 % 15.5 % 15.9 % (11.6-17.2) (11.6-17.2) (11.6-17.2) Platelet Count 66 TH/MM3 62 TH/MM3 59 TH/MM3 (150-450) (150-450) (150-450) Mean Platelet Volume 8.9 FL 9.8 FL 9.8 FL (7.0-11.0) (7.0-11.0) (7.0-11.0) Prothrombin Time 14.5 SEC 14.7 SEC (9.8-11.6) (9.8-11.6) Prothromb Time International 1.3 RATIO 1.3 RATIO Ratio Sodium Level 144 MEQ/L 142 MEQ/L (136-145) (136-145) Potassium Level 3.1 MEQ/L 3.3 MEQ/L (3.5-5.1) (3.5-5.1) Chloride Level 108 MEQ/L 106 MEQ/L (98-107) (98-107) Carbon Dioxide Level 26.4 MEQ/L 24.2 MEQ/L (21.0-32.0) (21.0-32.0) Anion Gap 10 MEQ/L (5-15) 12 MEQ/L (5-15) Blood Urea Nitrogen 117 MG/DL 123 MG/DL (7-18) (7-18) Creatinine 3.05 MG/DL 2.77 MG/DL (0.50-1.00) (0.50-1.00) Estimat Glomerular Filtration 14 ML/MIN (>89) 16 ML/MIN (>89) Rate Random Glucose 133 MG/DL 136 MG/DL (74-106) (74-106) Calcium Level 8.3 MG/DL 8.4 MG/DL (8.5-10.1) (8.5-10.1) Neutrophils (%) (Auto) 62.9 % (16.0-70.0) Lymphocytes (%) (Auto) 9.2 % (9.0-44.0) Monocytes (%) (Auto) 8.7 % (0.0-8.0) Eosinophils (%) (Auto) 18.6 % (0.0-4.0) Basophils (%) (Auto) 0.6 % (0.0-2.0) Neutrophils # (Auto) 4.5 TH/MM3 (1.8-7.7) Lymphocytes # (Auto) 0.7 TH/MM3 (1.0-4.8) Monocytes # (Auto) 0.6 TH/MM3 (0-0.9) Eosinophils # (Auto) 1.3 TH/MM3 (0-0.4) Basophils # (Auto) 0.0 TH/MM3 (0-0.2) CBC Comment AUTO DIFF Differential Total Cells 100 Counted Neutrophils % (Manual) 49 % (16-70) Band Neutrophils % 17 % (0-6) Lymphocytes % 10 % (9-44) Monocytes % 5 % (0-8) Eosinophils % 16 % (0-4) Basophils % 1 % (0-2) Neutrophils # (Manual) 4.8 TH/MM3 (1.8-7.7) Metamyelocytes 1 % (0-1) Myelocytes 1 % (0-0) Nucleated Red Blood Cells 2 /100 WBC (0-0) Differential Comment FINAL DIFF MANUAL Platelet Estimate LOW (NORMAL) Platelet Morphology Comment NORMAL (NORMAL) Polychromasia 2.7 % (0.0-1.9) Keratocytes OCC (NORMAL) Phosphorus Level 1.4 MG/DL (2.5-4.9) Magnesium Level 1.7 MG/DL (1.5-2.5) Blood Type O POSITIVE Antibody Screen POSITIVE Crossmatch Leukocyte-Reduced Red Blood Cells Blood Bank Comment . Result Diagram: 12/08/16 0514 12/08/16 0514 Imaging Last Impressions Chest X-Ray 12/07/16 0600 Signed Impressions: Service Date/Time: November 02:30 - CONCLUSION: Diffuse bilateral patchy airspace disease and suspect small pleural effusions. Leonardo Yung MD Thoracentesis 12/01/16 0000 Signed Impressions: Service Date/Time: Thursday, December 01, 2016 18:56 - CONCLUSION: Uncomplicated CT-guided thoracentesis. Jeffery Alvarado MD Chest CT 12/01/16 0000 Signed Impressions: Service Date/Time: Thursday, December 01, 2016 13:09 - CONCLUSION: Bilateral pleural effusion, larger on the right than the left. Mack Cao MD FACR Abdomen/Pelvis CT 12/01/16 0000 Signed Impressions: Service Date/Time: Thursday, December 01, 2016 13:09 - CONCLUSION: 1. Right inguinal hernia containing only fluid. 2. Generalized anasarca. 3. Trace ascites. 4. Bilateral pleural effusions, larger on the right than the left. Mack Cao MD FACR Abdomen Ultrasound 11/27/16 0000 Signed Impressions: Service Date/Time: Sunday, November 27, 2016 08:35 - CONCLUSION: Stone in the neck of the gallbladder. Trace ascites and mild splenomegaly Jeffery Alvarado MD Gastrostomy Tube Placement 11/24/16 0000 Signed Impressions: Service Date/Time: Sunday, November 27, 2016 14:34 - CONCLUSION: Uncomplicated gastrostomy tube placement as above. Kirit Alcantar MD Head CT 11/08/16 1657 Signed Impressions: Service Date/Time: Tuesday, November 08, 2016 17:06 - CONCLUSION: Low density seen throughout the posterior circulation regions including the susan and midbrain, cerebellar hemispheres, occipital and posterior medial temporal lobes and right thalamus. This likely represents areas of infarction involving the posterior territory circulation. Jeffery Zhong MD Carotid Artery Ultrasound 11/08/16 0000 Signed Impressions: Service Date/Time: Tuesday, November 08, 2016 22:24 - CONCLUSION: Mild calcified plaque at the carotid bulbs. No evidence of hemodynamically significant carotid stenosis. José Luis Beltran MD Procedures * Intubation/mechanical ventilation * Trach 11/23/16 * PEG tube placement * EGD 12/02/16 . . Assessment and Plan Disease Oriented Problem List: (1) CVA (cerebral vascular accident) Comment: Very large posterior circulation stroke. No signs of neurological recovery. Prognosis grim. . . (2) Rhabdomyolysis Comment: Resolved. (3) Dementia Comment: Family reports at least a 7 year history of dementia. . (4) Gastrointestinal hemorrhage Comment: EGD on 12/02/16 revealed a gastric ulcer and multiple duodenal AVMs. In spite of attempts to cauterize these via EGD, patient continues to bleed and pass melanotic stools. Multiple transfusions have been provided. . (5) Anemia (6) Malnutrition Comment: Presenting albumin level was 2.8 . (7) Urinary tract infection Comment: Cx of 11/08 --> E coli and Enterococcus; Cx 11/18 E. coli and Brionna . (8) Thrombocytopenia (9) Pneumonia Comment: Sputum cx of 11/12 growing Staph aureus. . Symptom Scale: (1) Pain 0-10 Scale: Unable to quantify Comment: Patient had no known prior pain syndromes. Current possible sources of pain include prolonged bedbound status; vascular access catheters; Tejeda catheter. . (2) Dyspnea 0-10 Scale: Unable to quantify Comment: Dyspnea currently controlled with mechanical ventilation. . (3) Encephalopathy 0-10 Scale: Unable to quantify Comment: Patient was minimally responsive on arrival. No evidence of neurologic recovery. Her only response now is decerebrate posturing with stimulation. Off all sedation. . Pertinent Non-Medical Issues Psychosocial: Normally lives with her sister. Her son lives by visits frequently. Spiritual: Patient is a Muslim. The patient's son, Wyatt, has consented to multiple blood transfusions now telling us that the patient was not "devout" in terms of her believes as a Muslim. Legal: No advance directives. Son would be the appropriate proxy health care decision-maker under the [place] statutes hierarchy. Ethical issues impacting care: Patient is incapacitated to make her own health care decisions and is not expected to regain such capacity. Patient's care is deemed to be futile per the vast majority of medical team members. There are concerns that ongoing aggressive care will only serve to prolong and uncomfortable dying process. . . Important Contacts Wyatt Crawford (son and healthcare proxy) [phone] . Prognosis This is an 86-year-old female who was suffered a fairly massive posterior circulation stroke. This is on top of at least a seven-year history of dementia with the patient was already requiring assistance with most of her ADLs. There is a high risk of during this hospitalization. Should she survive, she will not have meaningful interaction with her environment. In spite of bleak prognosis, the patient's son has insisted on ongoing aggressive care. The patient has managed to remain alive but there is been no evidence of neurologic recovery. She is unresponsive except for decerebrate posturing with stimulation. She now is actively GI bleeding from a combination of a gastric ulcer and multiple duodenal AVMs. She has received multiple transfusions. It does not appear we will be able to stop this bleeding. The patient would certainly be eligible for hospice services at such time that family believes the patient's goals would best be honored by transitioning to "comfort measures only." . . Code Status: Full Code Plan * FULL CODE: The patient's son changed his mind and asked that she be transitioned back to FULL CODE STATUS on 12/03/16 * DECISION-MAKING: The patient lacks capacity for decision-making, and she will not regain capacity. Her son, Wyatt Crawford, is the legal health care proxy. * GOALS: The patient is a Muslim. The son indicates now that she has not been devout and that is why he has agreed to multiple blood transfusions. Son has continued to ask for ongoing aggressive care and patient has now undergone both trach and PEG. * SYMPTOMS: It is difficult to know when she has pain or dyspnea, and we will continue to observe closely for signs of suffering. Certainly her bedbound status and recent procedures could be painful. No new med recommendations at this time. * Drs. Cartwright and Javad have requested a meeting of the bioethics committee to discuss this case. I informed the son about this development and let him know I would like him to attend to explain to medical team members why he believes his mother would want ongoing aggressive care given the conversations he has had with the physicians. Wyatt seemed uninterested in attending and seemed to be avoiding but on 12/07/16 agreed to attend midday on 12/15/16. He has since told me that day won't work and is asking for a meeting the middle of the following week. Unless Wyatt attends, I do not think the meeting will have much to offer. * Wyatt said on 12/08 that he planned on stopping all transfusions on 12/19 or . * Palliative care will continue to follow to assist with symptom management and to help clarify goals of medical treatment as the clinical course evolves. . . Time Spent Total Floor Time (mins): 40 (Total time included chart review, patient exam, collaboration with primary nurse, case discussion with scrum project manager, telephone converation with proxy, then bedside meeting with proxy as noted above) Face to Face Time (mins): 20 Attestation To help prompt me to consider important information that might be impacting today's encounter and assessment, information from prior notes written by myself or my colleagues may have been "brought forward" into today's note. My signature on this note, however, is an attestation that I personally performed the exam, history, and/or decision-making noted today, and, unless otherwise indicated, the interactions with patient, family, and staff as well as the review of records all occurred today. I also attest that the listed assessment and stated plan reflect my best clinical judgment today based on the combination of historical information, prior notes, and today's exam/ interactions. When time spent is documented, it refers only to time spent today by the signer, or if indicated, combined time spent today by collaborating physician/nurse practitioner. . Karlos Bauer MD Dec 08, 2016 20:11
[2016-12-08] MEDS: FAT EMULSION 20% INJ 250 ML (@10 mls/hr) IV SCH (20:15)
[2016-12-08] MEDS: CLINIMIX 4.25/5 (Cust.Renal Periph) 1000 mL- </= 42 mls/hr IV SCH ×8 (20:15)
[2016-12-09] VITALS (18 sets, daily range): BP systolic 110–141; BP diastolic 54–69; PULSE 65–82; RESP 15–16; TEMP 97.4–99; O2SAT 95–100
[2016-12-09] MEDS: ALBUMIN HUMAN 25% 25 GM/100 ML BAGP IV SCH ×2 (03:04→14:38)
[2016-12-09] MEDS: CHLORHEXIDINE GLUCONATE 2 % 1 PACK (2 CLOTHS) TOP SCH (03:04)
[2016-12-09] MEDS: HIGH DOSE INSULIN NOVOLIN REGULAR SUPPLEMENTAL SCALE SQ SCH ×7 (04:00→23:06)
[2016-12-09] MEDS: FREE WATER G-TUBE SCH ×5 (04:24→23:04)
[2016-12-09] MEDS: PANTOPRAZOLE INJ 80 MG in SODIUM CHLORIDE 0.9% INJ 100 ML IV SCH ×2 (05:46→14:39)
--- NOTE | 2016-12-09 06:32 | MB ---
cc: TAISHA LAM DATE OF : 1930 DATE OF CONSULTATION: 12/08/2016 REASON FOR CONSULTATION: Patient who is critically ill, currently on a ventilator with multiple comorbidities who is having gastrointestinal bleed and persistent anemia. HISTORY OF PRESENT ILLNESS Ms. Crawford is an 86-year-old female who is had a long prolonged hospital stay. She is critically ill. She is currently on ventilator. She was brought to the emergency department after she was found unresponsive in her bed. Upon arrival in the ER she was unresponsive and she was emergently intubated and brain imaging revealed a posterior circulation ischemic stroke. She remains unresponsive and unable to be weaned off the ventilator. She has acute renal failure. She has underlying coagulopathy. She is requiring frequent blood transfusions. Stool hemoccult is positive. The patient is a Denominational, but her son is the health care proxy. Her son wants to continue aggressive care and has asked the medical team to administer blood transfusions. The patient has a grim prognosis. Palliative care is involved. The son has been insisting on giving unconventional treatments to the patient. He has tried to give the patient fish oil trough the feeding tube. He also thinks that he will able to treat the patient with stem cells. According to palliative care notes, a bioethics committee meeting has been planned. I have been consulted to make recommendations in this patient who has been having GI bleed and has been requiring blood transfusions. 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 REVIEW OF SYSTEMS Unable to perform due to the patient's current medical condition. PAST MEDICAL HISTORY History of dementia. OTHER HISTORY None known. PAST SURGICAL HISTORY Unknown. FAMILY HISTORY AND SOCIAL HISTORY Unable to be obtained due to the patient's mental status. MEDICATIONS: Medications were reviewed in the EMR PHYSICAL EXAMINATION VITAL SIGNS: Blood pressure 119/59, pulse in the 70s, temperature is 99.3, O2 sats are 97% FIO2 30, currently mechanically ventilated. IN GENERAL: Gravely ill patient who is on a ventilator. She has a trache in place. HEAD, EYES, EARS, NOSE, AND THROAT: Pupils are fixed pinpoint. Clear. NECK: No JVD. No lymphadenopathy. CHEST: Bilateral coarse sounds. CARDIAC: S1-S2 regular rate and rhythm. ABDOMEN: Nondistended, nontender. Bowel sounds absent. EXTREMITIES: Without any edema, erythema or cyanosis. SKIN: Without any petechiae lesion or bruises. NEUROLOGIC: Currently on trache and on mechanical ventilation. LABORATORY DATA WBC 7.1, hemoglobin is 85.8, platelet count is 59, MCV is 94.4. Serum chemistries show sodium 142, potassium 3.3, chloride 106, CO2 24.2, BUN 123, creatinine 2.77, calcium is 8.4, phosphorus is 1.4, magnesium is 1.7, direct bilirubin is 0.2, indirect bilirubin 0.2, AST is 38, ALT is 8, alk phos is 62, total protein is 54.3, albumin is 2.2. IMAGING STUDIES Reviewed in the EMR ASSESSMENT/PLAN This is a 86-year-old female who is critically ill and has a very poor prognosis. She remains intubated. She is unresponsive. She has had massive posterior circulation ischemic stroke. I have been consulted to make recommendations regarding her anemia. 1. Anemia secondary to GI bleed/acute illness with underlying coagulopathy. Stool Hemoccult is positive. Given her multiple co-morbidities, she has a very poor prognosis and the recovery is unlikely. 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 The risk for transfusion reaction is high and can further complicate situation. This includes severe hemolytic/serologic transfusion reactions. The son is the healthcare proxy and he is requiring full support at this time. Crossmatch and select the most compatible blood components. I will discuss with blood bank whether full phenotyping vs partial phenotyping or autoadsorption is possible. These measures are not likely to reverse the clinical course of this patient. Bioethics committee meeting is planned to convene in one week, and apparently the patient's son has agreed to attend to make further decisions regarding this patient who has a very poor prognosis. Thank you for allowing me to participate in the care of the your patient. I will continue to follow this patient along. MD JOLENE Tai/adolfo /12:49 AM /6:13 AM PENNY
[2016-12-09] MEDS: CHLORHEXIDINE 0.12% (ORAL KIT) 15 ML CUP MT SCH ×2 (07:55→19:43)
[2016-12-09] MEDS: ARTIFICIAL TEARS OPTH SOLN 15 ML BTL EACH EYE SCH ×3 (09:00→16:41)
[2016-12-09] MEDS: SODIUM CHLORIDE 0.9% FLUSH 5 ML FLUSH IV FLUSH SCH ×2 (09:00→19:42)
[2016-12-09] MEDS: FERROUS SULFATE 300 MG /5ML UDC PO SCH ×2 (09:53→19:42)
[2016-12-09] MEDS: BUMETANIDE INJ 1 MG/4 ML VIAL IV PUSH SCH ×2 (09:53→16:40)
[2016-12-09 10:14] LABS: AUTOMATED NEUTROPHIL # 3.1 TH/MM3 (1.8-7.7); BASOPHIL % 0.7 % (0.0-2.0); EOSINOPHIL # 1.2 TH/MM3 (0-0.4); EOSINOPHIL % 22.8 % (0.0-4.0); HEMATOCRIT 21.8 % (35.0-46.0); LYMPH % 8.6 % (9.0-44.0); LYMPHOCYTE # 0.4 TH/MM3 (1.0-4.8); MEAN CELL VOLUME 88.9 FL (80.0-100.0); MEAN CORPUSCULAR HEMOGLOBIN 31.1 PG (27.0-34.0); MONO % 7.6 % (0.0-8.0); NEUT % 60.3 % (16.0-70.0); PLATELET COUNT 55 TH/MM3 (150-450); RED BLOOD COUNT 2.45 MIL/MM3 (4.00-5.30); WHITE BLOOD COUNT 5.1 TH/MM3 (4.0-11.0)
[2016-12-09 10:16] LABS: HEMO FLAGS AUTO DIFF
[2016-12-09 10:51] LABS: BANDS 10 % (0-6); BASOPHILS 1 % (0-2); CORRECTED NUCLEATED RBC 3 /100 WBC (0-0); EOSINOPHILS 23 % (0-4); NEUTROPHIL # MANUAL DIFF 3.4 TH/MM3 (1.8-7.7); POLYS (SEG NEUTROPHILS) 57 % (16-70); WBC DIFF SAMPLE 100
[2016-12-09 10:52] LABS: PLATELET ESTIMATE SMEAR LOW (NORMAL); PLATELET MORPHOLOGY NORMAL (NORMAL); SCAN/DIFF FINAL DIFF MANUAL
--- NOTE | 2016-12-09 14:35 | HHI.CCPN ---
Subjective Remarks/Hospital Course This is an 86yF with per report no other past medical history who presented to the ER after she was found unresponsive in her bed. According to ER reports, her family saw her normal last night when she had a fall, with unknown LOC. At that point, he helped her back to bed. However, this morning she did not wake up. On arrival to the ER, she was unresponsive only withdrawing to pain. she was intubated for airway protection and a poor GCS. CT head demonstrated massive posterior-circulation ischemic stroke. The patient is currently intubated and unresponsive and cannot provide any additional history. 11/09: No acute changes overnight. Palliative care team has consult with the family regarding goals of care. Currently the patient's sedation fentanyl infusion has been turned off without any response from patient. The patient notably does withdrawal to pain. 11/10: No change in neurological status. [id number]. The patient withdraws to pain 4 extremities. The patient currently on no sedation, fentanyl infusion discontinued yesterday. Tube feeds were initiated. The patient's urine culture grew back Escherichia coli, the patient was started on antibiotics. Extensive discussion with son regarding patient's neurological status, son Wyatt has had extensive discussion with palliative care.The son feels that yesterday when the patient was spoken to in Georgian the patient squeezed his hand and desires aggressive treatment. The patient's neuro status is unchanged, totally unresponsive with occasional reflexive twitching of feet B/L. Follow-up with neurology Dr. Pack, guarding any further imaging studies. 11/13: No change in neuro exam. Palliative care following. Family wanting full aggressive care. Palliative care will address early trach PEG 11/14: No improvement in neuro status. Son has not made decisions regarding trach and PEG. Apparently he wants to wait longer to see any improvement 11/15: Remains unresponsive. Neuro exam with extensor posturing-unchanged. Son requesting aggressive care. Continues to have low-grade fever 11/16: Clinically no improvement. Tolerates CPAP. Unable to extubate as patient will not protect airway 11/17: Tolerating C Pap but no change in neuro exam. Hemoglobin noted to be 6.8 hemodynamically stable 11/18: Became tachycardic and hypotensive early a.m., placed on assist control. Otherwise neuro exam remains unchanged 11/19: Continues to spike fever Tmax 102, started on vancomycin and cefepime in addition to Levaquin yesterday. Currently only low-grade fever. Received 2 units of blood for hemoglobin of 5.3. CBC pending at this time. No improvement in neuro exam 11/20: White count is 18.3 today, MAXIMUM TEMPERATURE 103.1. Chest x-ray showing right sided infiltrate. Urine culture with gram-negative rods and Brionna albicans. ID consulted Diflucan added 11/21/16: Tmax 101.5. Bilateral lung infiltrates, R>L but slightly improved. No improvement in neuro exam. ID consulted and following. 11/22/16: No fever. CT chest- moderate to large R pleural effusion, bilateral lung infiltrates. ABX per ID. CXR today shows increasing bilateral infiltrates and effusion right more than left. Almost near complete infiltrates on the right lung [place]. Vaginally worsening creatinine today 1.45 indicating multiorgan failure 11/23/16: Hb 9.8 today after 2U PRBC yesterday. Plan for tracheostomy today. INR normal platelet count 116. Worsening creatinine today is 1.6. UO 550 ml in 24 hours. 1L NS bolus and 75 ml per hour maintenance NS. Started on Dopamine 3 mcg per min to maintain MAP>65 11/24 Patient is on ventilator via trach. Afebrile. On Dopamine 4 mics. 11/25 No acute events overnight. s/p EGD yesterday showed mild gastritis unable to place PEG tube endoscopically. Remains on Dopamine 4 mics. On no sedation unresponsive. 11/26 No acute events overnight. On CPAP with PS 20, PEEP: 5 and FIO2 40%. Afebrile. Off Dopamine. Afebrile. 11/27 Patient remains on ventilator via trach on no drips. Afebrile. For PEG tube placement by IR today. 11/28 Patient s/p PEG tube placement by IR yesterday, s/p Right thoracentesis with removal 700ml CXR showed better aeration of lungs, Hgb 6.7 this morning 2units PRBC ordered. Renal function worse with Cr: 3.40 from 2.85 . 11/29: Remains encephalopathic on mechanical ventilation via tracheostomy. 11/30: Remains encephalopathic on mechanical ventilation via tracheostomy. 12/01 Patient s/p transfusion 1unit PRBC last night for Hgb 5.8 in addition to 2L NS. Hgb 6.5 this morning. 12/02: Afebrile. The patient underwent CT-guided thoracentesis yesterday with approximately 600 cc removed. Chest x-ray pending this a.m.. Patient received packed red blood cell 2 units yesterday. Hemoglobin 7.4. Pending EGD today. 12/03:The patient underwent EGD yesterday with Dr. Farnsworth patient was noted to have a large active bleeding ulcer in the body of the stomach, multiple AVMs. Multiple ablations performed. This a.m. hemoglobin dropped to 6.1, platelet count 38. The patient was transfused 2 PRBC, and a unit of platelets. Patient still not relieved receiving any nutrition will begin PPN today. The patient continues to have copious amounts of melena with fecal incontinence apparatus in place. 12/04: The patient continues to have copious melena. PT INR drawn last evening INR was noted to be 13.5. The patient received KCentra, and current INR 1.3 the family requests aggressive measures to be continued. No further interventions from gastroenterology per . IR deemed the patient not a candidate for arteriography or endovascular treatment. 12/05: Patient's current medical status unchanged. Large tarry stools, acute blood loss anemia continues in conjunction with thrombocytopenia. During the night the nurse reported a malodorous scent was noted in free water flush container for instillation through G-tube. It was noted to be possibly fish oil , patient's son was in the room during that time. Container removed. The patient is noted to have a hemoglobin level of 5.8 today will receive 2 units of packed red blood cells and 1 unit of platelets today. 12/06: The patient continues to have copious melena. The patient received one 6 pack of platelets, and 2 units of blood yesterday. Tonight as reported by the nurse in the evening the son continue to utilize fish oil in the patient's free water, which was removed by the nurse. Ethics committee consult was initiated with Dr. Bauer yesterday, regarding assessing goals of care. 12/07: The patient's INR 1.3. Patient received 2 units of blood and one 6 pack of platelets yesterday. Awaiting ethics committee meeting with Dr. Bauer. The patient continues to require transfusions. 4/14: Patient was noted to have a drop in hemoglobin this a.m.. The patient is being transfused 2 units of PRBCs, with noted difficulty obtaining unit secondary to antibodies. Hematology will be consulted. Bioethics committee meeting planned to convene in one week, patient's son has agreed to attend. 12/09: Afebrile. No change in neuro status. Wound Care consult for left and blisters on back, orders provided. Hemoglobin stable post 2 units packed red blood cells yesterday. Objective Vital Signs Date Time Temp Pulse Resp B/P Pulse Ox O2 Delivery O2 Flow Rate FiO2 12/09/16 12:42 98 30 12/09/16 12:00 97.4 68 15 117/54 Intake and Output 12/08/16 12/08/16 12/09/16 08:00 16:00 00:00 Intake Total 785 ml 1403 ml 809 ml Output Total 1200 ml 1200 ml 1800 ml Balance -415 ml 203 ml -991 ml Result Diagram: 12/09/16 0648 12/08/16 0514 Imaging Last Impressions Chest X-Ray 11/27/16 1522 Signed Impressions: Service Date/Time: Sunday, November 27, 2016 15:24 - CONCLUSION: 1. Marked improvement in right lung aeration post thoracentesis. No pneumothorax. 2. Improving bilateral airspace disease. Persistent, small left basilar consolidation/effusion Kirit Alcantar MD Thoracentesis 11/27/16 0000 Signed Impressions: Service Date/Time: Sunday, November 27, 2016 14:18 - CONCLUSION: Uncomplicated ultrasound guided thoracentesis. Kirit Alcantar MD Abdomen Ultrasound 11/27/16 0000 Signed Impressions: Service Date/Time: Sunday, November 27, 2016 08:35 - CONCLUSION: Stone in the neck of the gallbladder. Trace ascites and mild splenomegaly Jeffery Alvarado MD Gastrostomy Tube Placement 11/24/16 0000 Signed Impressions: Service Date/Time: Sunday, November 27, 2016 14:34 - CONCLUSION: Uncomplicated gastrostomy tube placement as above. Kirit Alcantar MD Chest CT 11/21/16 0000 Signed Impressions: Service Date/Time: Monday, November 21, 2016 22:57 - CONCLUSION: 1. Moderate size right pleural effusion and small left pleural effusion. Right effusion has increased over the last day compared with a recent chest radiograph. 2. Bilateral lung consolidation as above. Differential diagnosis includes pneumonia and aspiration. Emeterio Freire MD Head CT 11/08/16 1657 Signed Impressions: Service Date/Time: Tuesday, November 08, 2016 17:06 - CONCLUSION: Low density seen throughout the posterior circulation regions including the susan and midbrain, cerebellar hemispheres, occipital and posterior medial temporal lobes and right thalamus. This likely represents areas of infarction involving the posterior territory circulation. Jeffery Zhong MD Carotid Artery Ultrasound 11/08/16 0000 Signed Impressions: Service Date/Time: Sunday, November 08, 2016 22:24 - CONCLUSION: Mild calcified plaque at the carotid bulbs. No evidence of hemodynamically significant carotid stenosis. José Luis Beltran MD Objective Remarks GENERAL: Patient is 86 yo on ventilator via trach. SKIN: Warm and dry. HEAD: Normocephalic. EYES: No scleral icterus. No injection or drainage. NECK: Supple, trachea midline. No JVD or lymphadenopathy. CARDIOVASCULAR: Regular rate and rhythm without murmurs, gallops, or rubs. RESPIRATORY: Breath sounds equal bilaterally. Few coarse BS. 8.0 trach in situ GASTROINTESTINAL: Abdomen soft, non-tender, nondistended. PEG in place MUSCULOSKELETAL: No cyanosis, peripheral 2+ edema bilateral upper extremities. Left heel gauze dressing Neuro: Positive corneal reflex. LIDYA. Negative cough. Negative gag. Extensor posturing in uppers. Downgoing Babinski. 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 She was last seen normal, nearly 24 hours, she was not a candidate for any interventional therapy. Unfortunately, given her age, and the extent of the stroke, her prognosis for any reasonable neurologic function is quite poor. Active GI bleed discussed with family, and patient's poor prognosis. Her family continues to express wishes for aggressive medical management. Bioethics has been consulted. Active problems: Massive posterior circulation ischemic CVA Hypoxic and hypercarbic respiratory failure Severe encephalopathy secondary to stroke Severe sepsis Healthcare associated pneumonia with pleural effusion Acute kidney injury UTI Anemia-acute and chronic Hyperglycemia of critical illness Thrombocytopenia Active GI bleed with AVM's Plan Neuro: Monitor neuro status per ICU protocol - Avoid sedatives. Neuro is following -11/08 CT brain: Low density seen throughout the posterior circulation regions including the susan and midbrain, cerebellar hemispheres, occipital and posterior medial temporal lobes and right thalamus. This likely represents areas of infarction involving the posterior territory circulation -GCS 3T, decerebrate posturing Resp: -Continue with vent support keep sat >92% Vent bundle, Head of bed 30, bronchodilators-scheduled -s/p trach 11/23, pulm toilet, trach care -SBT daily as lia -s/p CT guided right thoracentesis 11/27 with removal 700ml clear fluid. -12/02 CXR-pulmonary edema, stable CHF, no pneumothorax, pleural effusions CVS: Monitor HR and BP keep MAP>65mmhg 2-D echo -EF 5560 %, mild aortic mitral and tricuspid regurgitation, No RWMA. Carotid ultrasound-no stenosis GI: -s/p PEG tube placement by IR 11/27 , TF held (Jevity 1.5 with goal rate 45 ml/hr ) secondary to GI bleeding -s/p EGD 11/24 showed mild gastritis unable to place PEG tube endoscopically. -Monitor LFT's, US abdomen: Stone in neck of gall bladder, no hydronephrosis -s/p transfusion 1unit PRBC last night will transfuse 2units PRBC 12/01. -12/01 CT abdomen/pelvis-generalized anasarca, trace ascites, bilateral pleural effusions right greater than left -Large gastric ulcer with active bleeding, active melena Protonix infusion 8 mg/ hour continues -IR intervention-patient is not a candidate : -Monitor renal function, I/O's, electrolytes replacement as needed. - Cr: 3.54 today -on Albumin 25gms Q12, Bumex 2mg IV BID. Renal is following- Dr. Zuniga -On Free water 250ml Q6 monitor sodium level. ID: -Continue abx per ID monitor for signs of infections ( Fever, WBC) -Urine culture 11/18/16 with Brionna albicans and E coli NOT S Levaquin, but S to zosyn -Infectious disease Dr. Wen, follow up on sputum cx 11/23: nl resp erica Heme Monitor CBC, 5.8 for transfusion 2 units PRBC Hematology consulted - patient with multiple antibodies, continued bleeding requiring daily transfusions of PRBCs INR 1.3 Endo: --Medium dose sliding scale regimen Msk: --Red and sacral area, left heel wound --12/06 Wound care consulted --Specialty bed-Airflow Proph: Subcutaneous heparin on hold since 11/23 secondary to thrombocytopenia, anemia and GI bleed. SCDs for DVT prophylaxis Protonix for GI prophylaxis -Palliative care is following IV access: Peripheral IV's Dispo: The patient continues to have active melena with requirements daily or every other day for transfusion of blood products. The case was discussed with Dr. Bauer, Bioethics committee meeting planned for next week. The patient continues to require 2 units of packed cells daily to maintain a hemoglobin of 7 secondary to active bleeding. Hematology consult regarding the risk/benefit of receiving daily packed red blood cells in the setting of acute active bleeding, and antibody exposure. Level 3 Physician Aysha Raymundo MD Dec 09, 2016 14:35
--- NOTE | 2016-12-09 14:57 | HHI.NPPN ---
Subjective History of Present Illness 86 year old with CVA, Resp failure s/p Trach/ PEG Additional Remarks Remains on Vent, ongoing anemia. Objective Data Data 12/08/16 12/09/16 19:00 07:00 Intake Total 1403 ml 1919 ml Output Total 1200 ml 2900 ml Balance 203 ml -981 ml IV Total 641 ml 508 ml TPN/PPN 333 ml 603 ml Lipid 79 ml 148 ml Albumin 100 ml 100 ml Other 250 ml 560 ml Output Urine Total 950 ml 1800 ml Stool Total 250 ml 1100 ml Vital Signs Date Time Temp Pulse Resp B/P Pulse Ox O2 Delivery O2 Flow Rate FiO2 12/09/16 14:51 97 30 12/09/16 12:42 98 30 12/09/16 12:00 97.4 68 15 117/54 99 12/09/16 12:00 30 12/09/16 12:00 68 12/09/16 10:00 66 12/09/16 08:11 98 30 12/09/16 08:00 65 12/09/16 08:00 97.6 67 15 110/56 97 12/09/16 08:00 30 12/09/16 06:00 68 12/09/16 04:36 100 30 12/09/16 04:00 30 12/09/16 04:00 98.7 70 15 118/57 99 12/09/16 04:00 70 12/09/16 02:00 74 12/09/16 00:45 98 30 12/09/16 00:00 30 12/09/16 00:00 99.0 78 16 128/60 98 12/09/16 00:00 78 12/08/16 22:00 79 12/08/16 21:45 99 40 12/08/16 20:00 79 12/08/16 20:00 30 12/08/16 20:00 99.3 80 15 119/59 97 12/08/16 18:00 79 12/08/16 16:00 80 12/08/16 16:00 99.0 80 20 110/53 98 12/08/16 16:00 30 -: 12/09/16 0648 12/08/16 0514 Physical Exam General Appearance: Pale Neck Neck Remarks s/p trach Pulmonary Resp Exam: Decreased Bases Cardiology CV Exam: Regular Gastrointestinal/Abdomen GI Exam: Soft, Non-Tender Extremeties Extremities Exam: Moderate Edema Assessment/Plan Problem List: (1) Acute renal failure Plan: Patient has multiple issues and has malnutrition with poor albumin contributing to low oncotic pressure, ATN creatinine stable: 3.6 -> 3.5 -> 3.5 --> 3.4 --> 3.37 --> 3.05 --> 2.7 On Bumex 2 mg IV q12 - continue for now. Good UOP with 2.7 L/ 24 hours replace K/po4 no meaningful recovery from CVA at this point Palliative care following. Apparently son would like to fly her to [facility] for stem cell treatment. Continue to follow goals of care. 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 Ongoing anemia, continue to monitor. getting PRBC on regular interval agree with Palliative care ethics meeting with son as futile care with hopeless situation and no chance of meaningful recovery (2) Metabolic acidosis Plan: Stable, continue to monitor (3) Pneumonia Plan: On vent treated earlier with antibiotic (4) Urinary tract infection Plan: Escherichia coli she was treated (5) CVA (cerebral vascular accident) Plan: Massive stroke neurology following (6) Rhabdomyolysis Plan: This resolved (7) Hypernatremia Plan: Given 1L of DW over weekend improved Continue to monitor, repeat as necessary Problem Qualifiers (1) Acute renal failure: Qualified Code: N17.9 - Acute renal failure, unspecified acute renal failure type (2) CVA (cerebral vascular accident): Qualified Code: I63.9 - Cerebrovascular accident (CVA), unspecified mechanism (3) Rhabdomyolysis: Qualified Code: M62.82 - Non-traumatic rhabdomyolysis Kristel Zuniga MD Dec 09, 2016 14:57
[2016-12-09] MEDS ORDERED: POTASSIUM PHOSPHATE INJ 15 MMOL in SODIUM CHLORIDE 0.9% INJ 150 ML IV ONE (16:00)
[2016-12-09] MEDS ORDERED: SODIUM PHOSPHATE INJ 15 MMOL in SODIUM CHLORIDE 0.9% INJ 150 ML IV ONE (17:00)
[2016-12-09 17:38] LABS: BICARBONATE 26.5 MEQ/L (21.0-32.0); POTASSIUM 3.1 MEQ/L (3.5-5.1)
[2016-12-09] MEDS: FAT EMULSION 20% INJ 250 ML (@10 mls/hr) IV SCH (19:42)
[2016-12-09] MEDS: CLINIMIX 4.25/5 (Cust.Renal Periph) 1000 mL- </= 42 mls/hr IV SCH ×8 (19:42)
[2016-12-10] VITALS (17 sets, daily range): BP systolic 101–155; BP diastolic 55–77; PULSE 63–79; RESP 15–18; TEMP 98–98.8; O2SAT 95–100
[2016-12-10] MEDS: PANTOPRAZOLE INJ 80 MG in SODIUM CHLORIDE 0.9% INJ 100 ML IV SCH ×2 (01:07→11:46)
[2016-12-10] MEDS: ALBUMIN HUMAN 25% 25 GM/100 ML BAGP IV SCH ×2 (03:06→18:09)
[2016-12-10] MEDS: CHLORHEXIDINE GLUCONATE 2 % 1 PACK (2 CLOTHS) TOP SCH (03:06)
[2016-12-10] MEDS: HIGH DOSE INSULIN NOVOLIN REGULAR SUPPLEMENTAL SCALE SQ SCH ×4 (04:00→16:00)
[2016-12-10] MEDS: FREE WATER G-TUBE SCH ×3 (04:40→18:00)
[2016-12-10] MEDS: SODIUM CHLORIDE 0.9% FLUSH 5 ML FLUSH IV FLUSH SCH ×2 (09:00→21:00)
[2016-12-10] MEDS: ARTIFICIAL TEARS OPTH SOLN 15 ML BTL EACH EYE SCH ×3 (09:00→18:00)
--- NOTE | 2016-12-10 09:12 | HHI.CCPN ---
Subjective Remarks/Hospital Course This is an 86yF with per report no other past medical history who presented to the ER after she was found unresponsive in her bed. According to ER reports, her family saw her normal last night when she had a fall, with unknown LOC. At that point, he helped her back to bed. However, this morning she did not wake up. On arrival to the ER, she was unresponsive only withdrawing to pain. she was intubated for airway protection and a poor GCS. CT head demonstrated massive posterior-circulation ischemic stroke. The patient is currently intubated and unresponsive and cannot provide any additional history. 11/09: No acute changes overnight. Palliative care team has consult with the family regarding goals of care. Currently the patient's sedation fentanyl infusion has been turned off without any response from patient. The patient notably does withdrawal to pain. 11/10: No change in neurological status. [id number]. The patient withdraws to pain 4 extremities. The patient currently on no sedation, fentanyl infusion discontinued yesterday. Tube feeds were initiated. The patient's urine culture grew back Escherichia coli, the patient was started on antibiotics. Extensive discussion with son regarding patient's neurological status, son Wyatt has had extensive discussion with palliative care.The son feels that yesterday when the patient was spoken to in Ukrainian the patient squeezed his hand and desires aggressive treatment. The patient's neuro status is unchanged, totally unresponsive with occasional reflexive twitching of feet B/L. Follow-up with neurology Dr. Pack, guarding any further imaging studies. 11/13: No change in neuro exam. Palliative care following. Family wanting full aggressive care. Palliative care will address early trach PEG 11/14: No improvement in neuro status. Son has not made decisions regarding trach and PEG. Apparently he wants to wait longer to see any improvement 11/15: Remains unresponsive. Neuro exam with extensor posturing-unchanged. Son requesting aggressive care. Continues to have low-grade fever 11/16: Clinically no improvement. Tolerates CPAP. Unable to extubate as patient will not protect airway 11/17: Tolerating C Pap but no change in neuro exam. Hemoglobin noted to be 6.8 hemodynamically stable 11/18: Became tachycardic and hypotensive early a.m., placed on assist control. Otherwise neuro exam remains unchanged 11/19: Continues to spike fever Tmax 102, started on vancomycin and cefepime in addition to Levaquin yesterday. Currently only low-grade fever. Received 2 units of blood for hemoglobin of 5.3. CBC pending at this time. No improvement in neuro exam 11/20: White count is 18.3 today, MAXIMUM TEMPERATURE 103.1. Chest x-ray showing right sided infiltrate. Urine culture with gram-negative rods and Brionna albicans. ID consulted Diflucan added 11/21/16: Tmax 101.5. Bilateral lung infiltrates, R>L but slightly improved. No improvement in neuro exam. ID consulted and following. 11/22/16: No fever. CT chest- moderate to large R pleural effusion, bilateral lung infiltrates. ABX per ID. CXR today shows increasing bilateral infiltrates and effusion right more than left. Almost near complete infiltrates on the right lung [place]. Vaginally worsening creatinine today 1.45 indicating multiorgan failure 11/23/16: Hb 9.8 today after 2U PRBC yesterday. Plan for tracheostomy today. INR normal platelet count 116. Worsening creatinine today is 1.6. UO 550 ml in 24 hours. 1L NS bolus and 75 ml per hour maintenance NS. Started on Dopamine 3 mcg per min to maintain MAP>65 11/24 Patient is on ventilator via trach. Afebrile. On Dopamine 4 mics. 11/25 No acute events overnight. s/p EGD yesterday showed mild gastritis unable to place PEG tube endoscopically. Remains on Dopamine 4 mics. On no sedation unresponsive. 11/26 No acute events overnight. On CPAP with PS 20, PEEP: 5 and FIO2 40%. Afebrile. Off Dopamine. Afebrile. 11/27 Patient remains on ventilator via trach on no drips. Afebrile. For PEG tube placement by IR today. 11/28 Patient s/p PEG tube placement by IR yesterday, s/p Right thoracentesis with removal 700ml CXR showed better aeration of lungs, Hgb 6.7 this morning 2units PRBC ordered. Renal function worse with Cr: 3.40 from 2.85 . 11/29: Remains encephalopathic on mechanical ventilation via tracheostomy. 11/30: Remains encephalopathic on mechanical ventilation via tracheostomy. 12/01 Patient s/p transfusion 1unit PRBC last night for Hgb 5.8 in addition to 2L NS. Hgb 6.5 this morning. 12/02: Afebrile. The patient underwent CT-guided thoracentesis yesterday with approximately 600 cc removed. Chest x-ray pending this a.m.. Patient received packed red blood cell 2 units yesterday. Hemoglobin 7.4. Pending EGD today. 12/03:The patient underwent EGD yesterday with Dr. Farnsworth patient was noted to have a large active bleeding ulcer in the body of the stomach, multiple AVMs. Multiple ablations performed. This a.m. hemoglobin dropped to 6.1, platelet count 38. The patient was transfused 2 PRBC, and a unit of platelets. Patient still not relieved receiving any nutrition will begin PPN today. The patient continues to have copious amounts of melena with fecal incontinence apparatus in place. 12/04: The patient continues to have copious melena. PT INR drawn last evening INR was noted to be 13.5. The patient received KCentra, and current INR 1.3 the family requests aggressive measures to be continued. No further interventions from gastroenterology per . IR deemed the patient not a candidate for arteriography or endovascular treatment. 12/05: Patient's current medical status unchanged. Large tarry stools, acute blood loss anemia continues in conjunction with thrombocytopenia. During the night the nurse reported a malodorous scent was noted in free water flush container for instillation through G-tube. It was noted to be possibly fish oil , patient's son was in the room during that time. Container removed. The patient is noted to have a hemoglobin level of 5.8 today will receive 2 units of packed red blood cells and 1 unit of platelets today. 12/06: The patient continues to have copious melena. The patient received one 6 pack of platelets, and 2 units of blood yesterday. Tonight as reported by the nurse in the evening the son continue to utilize fish oil in the patient's free water, which was removed by the nurse. Ethics committee consult was initiated with Dr. Bauer yesterday, regarding assessing goals of care. 12/07: The patient's INR 1.3. Patient received 2 units of blood and one 6 pack of platelets yesterday. Awaiting ethics committee meeting with Dr. Bauer. The patient continues to require transfusions. 4/14: Patient was noted to have a drop in hemoglobin this a.m.. The patient is being transfused 2 units of PRBCs, with noted difficulty obtaining unit secondary to antibodies. Hematology will be consulted. Bioethics committee meeting planned to convene in one week, patient's son has agreed to attend. 12/09: Afebrile. No change in neuro status. Wound Care consult for left and blisters on back, orders provided. Hemoglobin stable post 2 units packed red blood cells yesterday. 12/10: The patient's hemoglobin 7.6 yesterday, hemoglobin pending for today. Overnight RN reported family member son continually putting some chemicals in the gastric tube of the patient, risk management notified. Hematology oncology has evaluated the patient, awaiting bioethics committee meeting scheduled for next week. The patient continues on PPN for nutritional support. Objective Vital Signs Date Time Temp Pulse Resp B/P Pulse Ox O2 Delivery O2 Flow Rate FiO2 12/10/16 07:56 95 30 12/10/16 06:00 66 12/10/16 04:00 98.8 15 113/57 Intake and Output 12/09/16 12/09/16 12/10/16 08:00 16:00 00:00 Intake Total 1110 ml 192 ml 669 ml Output Total 1100 ml 1600 ml 1100 ml Balance 10 ml -1408 ml -431 ml Result Diagram: 12/09/16 0648 12/09/16 1629 Imaging Last Impressions Chest X-Ray 11/27/16 1522 Signed Impressions: Service Date/Time: Sunday, November 27, 2016 15:24 - CONCLUSION: 1. Marked improvement in right lung aeration post thoracentesis. No pneumothorax. 2. Improving bilateral airspace disease. Persistent, small left basilar consolidation/effusion Kirit Alcantar MD Thoracentesis 11/27/16 0000 Signed Impressions: Service Date/Time: Sunday, November 27, 2016 14:18 - CONCLUSION: Uncomplicated ultrasound guided thoracentesis. Kirit Alcantar MD Abdomen Ultrasound 11/27/16 0000 Signed Impressions: Service Date/Time: Sunday, November 27, 2016 08:35 - CONCLUSION: Stone in the neck of the gallbladder. Trace ascites and mild splenomegaly Jeffery Alvarado MD Gastrostomy Tube Placement 11/24/16 0000 Signed Impressions: Service Date/Time: Sunday, November 27, 2016 14:34 - CONCLUSION: Uncomplicated gastrostomy tube placement as above. Kirit Alcantar MD Chest CT 11/21/16 0000 Signed Impressions: Service Date/Time: Monday, November 21, 2016 22:57 - CONCLUSION: 1. Moderate size right pleural effusion and small left pleural effusion. Right effusion has increased over the last day compared with a recent chest radiograph. 2. Bilateral lung consolidation as above. Differential diagnosis includes pneumonia and aspiration. Emeterio Freire MD Head CT 11/08/16 1657 Signed Impressions: Service Date/Time: Tuesday, November 08, 2016 17:06 - CONCLUSION: Low density seen throughout the posterior circulation regions including the susan and midbrain, cerebellar hemispheres, occipital and posterior medial temporal lobes and right thalamus. This likely represents areas of infarction involving the posterior territory circulation. Jeffery Zhong MD Carotid Artery Ultrasound 11/08/16 0000 Signed Impressions: Service Date/Time: Tuesday, November 08, 2016 22:24 - CONCLUSION: Mild calcified plaque at the carotid bulbs. No evidence of hemodynamically significant carotid stenosis. José Luis Beltran MD Objective Remarks GENERAL: Patient is 86 yo on ventilator via trach. SKIN: Warm and dry. HEAD: Normocephalic. EYES: No scleral icterus. No injection or drainage. NECK: Supple, trachea midline. No JVD or lymphadenopathy. CARDIOVASCULAR: Regular rate and rhythm without murmurs, gallops, or rubs. RESPIRATORY: Breath sounds equal bilaterally. Few coarse BS. 8.0 trach in situ GASTROINTESTINAL: Abdomen soft, non-tender, nondistended. PEG in place MUSCULOSKELETAL: No cyanosis, peripheral 2+ edema bilateral upper extremities. Left heel gauze dressing Neuro: Positive corneal reflex. LIDYA. Negative cough. Negative gag. Extensor posturing in uppers. Downgoing Babinski. 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 She was last seen normal, nearly 24 hours, she was not a candidate for any interventional therapy. Unfortunately, given her age, and the extent of the stroke, her prognosis for any reasonable neurologic function is quite poor. Active GI bleed discussed with family, and patient's poor prognosis. Her family continues to express wishes for aggressive medical management. Bioethics has been consulted. Active problems: Massive posterior circulation ischemic CVA Hypoxic and hypercarbic respiratory failure Severe encephalopathy secondary to stroke Severe sepsis Healthcare associated pneumonia with pleural effusion Acute kidney injury UTI Anemia-acute and chronic Hyperglycemia of critical illness Thrombocytopenia Active GI bleed with AVM's Plan Neuro: Monitor neuro status per ICU protocol - Avoid sedatives. Neuro is following -11/08 CT brain: Low density seen throughout the posterior circulation regions including the susan and midbrain, cerebellar hemispheres, occipital and posterior medial temporal lobes and right thalamus. This likely represents areas of infarction involving the posterior territory circulation -GCS 3T, decerebrate posturing Resp: -Continue with vent support keep sat >92% Vent bundle, Head of bed 30, bronchodilators-scheduled -s/p trach 11/23, pulm toilet, trach care -SBT daily as lia -s/p CT guided right thoracentesis 11/27 with removal 700ml clear fluid. -12/02 CXR-pulmonary edema, stable CHF, no pneumothorax, pleural effusions CVS: Monitor HR and BP keep MAP>65mmhg 2-D echo -EF 5560 %, mild aortic mitral and tricuspid regurgitation, No RWMA. Carotid ultrasound-no stenosis GI: -s/p PEG tube placement by IR 11/27 , TF held (Jevity 1.5 with goal rate 45 ml/hr ) secondary to GI bleeding -s/p EGD 11/24 showed mild gastritis unable to place PEG tube endoscopically. -Monitor LFT's, US abdomen: Stone in neck of gall bladder, no hydronephrosis -s/p transfusion 1unit PRBC last night will transfuse 2units PRBC 12/01. -12/01 CT abdomen/pelvis-generalized anasarca, trace ascites, bilateral pleural effusions right greater than left -Large gastric ulcer with active bleeding, active melena Protonix infusion 8 mg/ hour continues -IR intervention-patient is not a candidate -Patient continues on PPN 42/an hour for nutritional support : -Monitor renal function, I/O's, electrolytes replacement as needed. - Cr: 3.54 today -on Albumin 25gms Q12, Bumex 2mg IV BID. Renal is following- Dr. Zuniga -On Free water 250ml Q6 monitor sodium level. ID: -Continue abx per ID monitor for signs of infections ( Fever, WBC) -Urine culture 11/18/16 with Brionna albicans and E coli NOT S Levaquin, but S to zosyn -Infectious disease Dr. Wen, follow up on sputum cx 11/23: nl resp erica Heme Monitor CBC, 5.8 for transfusion 2 units PRBC Hematology consulted - patient with multiple antibodies, continued bleeding requiring daily transfusions of PRBCs INR 1.3 Endo: --Medium dose sliding scale regimen Msk: --Red and sacral area, left heel wound --12/06 Wound care consulted --Specialty bed-Airflow Proph: Subcutaneous heparin on hold since 11/23 secondary to thrombocytopenia, anemia and GI bleed. SCDs for DVT prophylaxis Protonix for GI prophylaxis -Palliative care is following IV access: Peripheral IV's Dispo: The patient continues to have active melena with requirements daily or every other day for transfusion of blood products. The case was discussed with Dr. Bauer, Bioethics committee meeting planned for next week. The patient continues to require 2 units of packed cells q 2 days to maintain a hemoglobin of 7 secondary to active bleeding. Hematology consult regarding the risk/ benefit of receiving daily packed red blood cells in the setting of acute active bleeding, and antibody exposure, see report. Level 3 Physician Aysha Raymundo MD Dec 10, 2016 09:12
[2016-12-10] MEDS: BUMETANIDE INJ 1 MG/4 ML VIAL IV PUSH SCH ×2 (10:13→18:12)
[2016-12-10] MEDS: FERROUS SULFATE 300 MG /5ML UDC PO SCH (10:13)
[2016-12-10 11:22] LABS: HEMATOCRIT 22.6 % (35.0-46.0); MEAN CELL VOLUME 91.4 FL (80.0-100.0); MEAN CORPUSCULAR HEMOGLOBIN 29.8 PG (27.0-34.0); MEAN CORPUSCULAR HGB CONC 32.6 % (32.0-36.0); PLATELET COUNT 54 TH/MM3 (150-450); RED BLOOD COUNT 2.47 MIL/MM3 (4.00-5.30); RED CELL DISTRIBUTION WIDTH 20.4 % (11.6-17.2); WHITE BLOOD COUNT 4.9 TH/MM3 (4.0-11.0)
[2016-12-10 11:25] LABS: REVIEW FLAG FINAL
--- NOTE | 2016-12-10 15:09 | HHI.NPPN ---
Subjective History of Present Illness 86 year old with CVA, Resp failure s/p Trach/ PEG Additional Remarks Remains on Vent, ongoing anemia. Objective Data Data 12/09/16 12/10/16 19:00 07:00 Intake Total 192 ml 1703 ml Output Total 1600 ml 1700 ml Balance -1408 ml 3 ml IV Total 192 ml 303 ml TPN/PPN 597 ml Lipid 143 ml Albumin 100 ml Other 560 ml Output Urine Total 1100 ml 1350 ml Stool Total 500 ml 350 ml Vital Signs Date Time Temp Pulse Resp B/P Pulse Ox O2 Delivery O2 Flow Rate FiO2 12/10/16 14:50 97 30 12/10/16 12:00 66 12/10/16 12:00 30 12/10/16 10:00 70 12/10/16 08:00 63 12/10/16 08:00 30 12/10/16 07:56 95 30 12/10/16 06:00 66 12/10/16 04:12 100 30 12/10/16 04:00 98.8 66 15 113/57 95 12/10/16 04:00 30 12/10/16 04:00 66 12/10/16 02:00 68 12/10/16 01:10 99 30 12/10/16 00:00 30 12/10/16 00:00 98.0 69 15 110/55 98 12/10/16 00:00 69 12/09/16 22:25 99 30 12/09/16 22:00 82 12/09/16 20:00 99 30 12/09/16 20:00 97.7 74 15 141/69 97 12/09/16 20:00 74 12/09/16 20:00 30 12/09/16 18:00 71 12/09/16 16:00 97.9 71 15 115/55 95 12/09/16 16:00 30 12/09/16 16:00 72 -: 12/10/16 1020 12/09/16 1629 Physical Exam General Appearance: Pale Neck Neck Remarks s/p trach Pulmonary Resp Exam: Decreased Bases Cardiology CV Exam: Regular Gastrointestinal/Abdomen GI Exam: Soft, Non-Tender Extremeties Extremities Exam: Moderate Edema Assessment/Plan Problem List: (1) Acute renal failure Plan: Patient has multiple issues and has malnutrition with poor albumin contributing to low oncotic pressure, ATN creatinine stable: 3.6 -> 3.5 -> 3.5 --> 3.4 --> 3.37 --> 3.05 --> 2.7 -->2.7 On Bumex 2 mg IV q12 - continue for now. Good UOP with 2.4 L/ 24 hours replace K no meaningful recovery from CVA at this point Palliative care following. Apparently son would like to fly her to [place] for stem cell treatment. Continue to follow goals of care. 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 Ongoing anemia, continue to monitor. getting PRBC on regular interval agree with Palliative care ethics meeting with son as futile care with hopeless situation and no chance of meaningful recovery (2) Metabolic acidosis Plan: Stable, continue to monitor (3) Pneumonia Plan: On vent treated earlier with antibiotic (4) Urinary tract infection Plan: Escherichia coli she was treated (5) CVA (cerebral vascular accident) Plan: Massive stroke neurology following (6) Rhabdomyolysis Plan: This resolved (7) Hypernatremia Plan: Given 1L of DW over weekend improved Continue to monitor, repeat as necessary Problem Qualifiers (1) Acute renal failure: Qualified Code: N17.9 - Acute renal failure, unspecified acute renal failure type (2) CVA (cerebral vascular accident): Qualified Code: I63.9 - Cerebrovascular accident (CVA), unspecified mechanism (3) Rhabdomyolysis: Qualified Code: M62.82 - Non-traumatic rhabdomyolysis Kristel Zuniga MD Dec 10, 2016 15:09
[2016-12-10] MEDS ORDERED: POTASSIUM CHLOR 40 MEQ PREMIX 100 ML IV ONE (16:00)
[2016-12-10] MEDS: CHLORHEXIDINE 0.12% (ORAL KIT) 15 ML CUP MT SCH (18:13)
[2016-12-10] MEDS: CLINIMIX 4.25/5 (Cust.Renal Periph) 1000 mL- </= 42 mls/hr IV SCH ×8 (22:44)
[2016-12-11] VITALS (17 sets, daily range): BP systolic 96–134; BP diastolic 53–63; PULSE 66–83; RESP 10–20; TEMP 97.4–98.5; O2SAT 91–100
[2016-12-11] MEDS: FAT EMULSION 20% INJ 250 ML (@10 mls/hr) IV SCH ×2 (02:56→20:39)
[2016-12-11] MEDS: CHLORHEXIDINE 0.12% (ORAL KIT) 15 ML CUP MT SCH ×3 (02:56→20:38)
[2016-12-11] MEDS: PANTOPRAZOLE INJ 80 MG in SODIUM CHLORIDE 0.9% INJ 100 ML IV SCH ×3 (02:57→15:45)
[2016-12-11] MEDS: CHLORHEXIDINE GLUCONATE 2 % 1 PACK (2 CLOTHS) TOP SCH (02:57)
[2016-12-11] MEDS: FERROUS SULFATE 300 MG /5ML UDC PO SCH ×3 (03:01→20:40)
[2016-12-11] MEDS: ALBUMIN HUMAN 25% 25 GM/100 ML BAGP IV SCH ×2 (03:01→15:45)
[2016-12-11] MEDS: HIGH DOSE INSULIN NOVOLIN REGULAR SUPPLEMENTAL SCALE SQ SCH ×6 (04:00→20:00)
[2016-12-11 05:59] LABS: HEMATOCRIT 21.3 % (35.0-46.0); MEAN CELL VOLUME 91.4 FL (80.0-100.0); MEAN CORPUSCULAR HEMOGLOBIN 30.5 PG (27.0-34.0); MEAN CORPUSCULAR HGB CONC 33.4 % (32.0-36.0); PLATELET COUNT 51 TH/MM3 (150-450); RED BLOOD COUNT 2.33 MIL/MM3 (4.00-5.30); RED CELL DISTRIBUTION WIDTH 23.1 % (11.6-17.2); WHITE BLOOD COUNT 4.3 TH/MM3 (4.0-11.0)
[2016-12-11] MEDS: FREE WATER G-TUBE SCH ×4 (06:00→17:01)
[2016-12-11 06:03] LABS: REVIEW FLAG FINAL
[2016-12-11 06:09] LABS: BICARBONATE 25.2 MEQ/L (21.0-32.0); POTASSIUM 3.5 MEQ/L (3.5-5.1)
[2016-12-11 06:11] LABS: INTERNATIONAL NORMALIZED RATIO 1.4 RATIO; PROTHROMBIN TIME - PATIENT 15.9 SEC (9.8-11.6)
[2016-12-11] MEDS: SODIUM CHLORIDE 0.9% FLUSH 5 ML FLUSH IV FLUSH SCH ×2 (09:00→20:40)
[2016-12-11] MEDS: BUMETANIDE INJ 1 MG/4 ML VIAL IV PUSH SCH ×2 (10:06→17:01)
[2016-12-11] MEDS: EPOETIN ALFA 10,000 UNITS/ML VIAL SQ SCH (10:06)
[2016-12-11] MEDS: ARTIFICIAL TEARS OPTH SOLN 15 ML BTL EACH EYE SCH ×3 (10:07→17:01)
--- NOTE | 2016-12-11 10:11 | HHI.CCPN ---
Subjective Remarks/Hospital Course This is an 86yF with per report no other past medical history who presented to the ER after she was found unresponsive in her bed. According to ER reports, her family saw her normal last night when she had a fall, with unknown LOC. At that point, he helped her back to bed. However, this morning she did not wake up. On arrival to the ER, she was unresponsive only withdrawing to pain. she was intubated for airway protection and a poor GCS. CT head demonstrated massive posterior-circulation ischemic stroke. The patient is currently intubated and unresponsive and cannot provide any additional history. 11/09: No acute changes overnight. Palliative care team has consult with the family regarding goals of care. Currently the patient's sedation fentanyl infusion has been turned off without any response from patient. The patient notably does withdrawal to pain. 11/10: No change in neurological status. [id number]. The patient withdraws to pain 4 extremities. The patient currently on no sedation, fentanyl infusion discontinued yesterday. Tube feeds were initiated. The patient's urine culture grew back Escherichia coli, the patient was started on antibiotics. Extensive discussion with son regarding patient's neurological status, son Wyatt has had extensive discussion with palliative care.The son feels that yesterday when the patient was spoken to in Arabic the patient squeezed his hand and desires aggressive treatment. The patient's neuro status is unchanged, totally unresponsive with occasional reflexive twitching of feet B/L. Follow-up with neurology Dr. Pack, guarding any further imaging studies. 11/13: No change in neuro exam. Palliative care following. Family wanting full aggressive care. Palliative care will address early trach PEG 11/14: No improvement in neuro status. Son has not made decisions regarding trach and PEG. Apparently he wants to wait longer to see any improvement 11/15: Remains unresponsive. Neuro exam with extensor posturing-unchanged. Son requesting aggressive care. Continues to have low-grade fever 11/16: Clinically no improvement. Tolerates CPAP. Unable to extubate as patient will not protect airway 11/17: Tolerating C Pap but no change in neuro exam. Hemoglobin noted to be 6.8 hemodynamically stable 11/18: Became tachycardic and hypotensive early a.m., placed on assist control. Otherwise neuro exam remains unchanged 11/19: Continues to spike fever Tmax 102, started on vancomycin and cefepime in addition to Levaquin yesterday. Currently only low-grade fever. Received 2 units of blood for hemoglobin of 5.3. CBC pending at this time. No improvement in neuro exam 11/20: White count is 18.3 today, MAXIMUM TEMPERATURE 103.1. Chest x-ray showing right sided infiltrate. Urine culture with gram-negative rods and Brionna albicans. ID consulted Diflucan added 11/21/16: Tmax 101.5. Bilateral lung infiltrates, R>L but slightly improved. No improvement in neuro exam. ID consulted and following. 11/22/16: No fever. CT chest- moderate to large R pleural effusion, bilateral lung infiltrates. ABX per ID. CXR today shows increasing bilateral infiltrates and effusion right more than left. Almost near complete infiltrates on the right lung [place]. Vaginally worsening creatinine today 1.45 indicating multiorgan failure 11/23/16: Hb 9.8 today after 2U PRBC yesterday. Plan for tracheostomy today. INR normal platelet count 116. Worsening creatinine today is 1.6. UO 550 ml in 24 hours. 1L NS bolus and 75 ml per hour maintenance NS. Started on Dopamine 3 mcg per min to maintain MAP>65 11/24 Patient is on ventilator via trach. Afebrile. On Dopamine 4 mics. 11/25 No acute events overnight. s/p EGD yesterday showed mild gastritis unable to place PEG tube endoscopically. Remains on Dopamine 4 mics. On no sedation unresponsive. 11/26 No acute events overnight. On CPAP with PS 20, PEEP: 5 and FIO2 40%. Afebrile. Off Dopamine. Afebrile. 11/27 Patient remains on ventilator via trach on no drips. Afebrile. For PEG tube placement by IR today. 11/28 Patient s/p PEG tube placement by IR yesterday, s/p Right thoracentesis with removal 700ml CXR showed better aeration of lungs, Hgb 6.7 this morning 2units PRBC ordered. Renal function worse with Cr: 3.40 from 2.85 . 11/29: Remains encephalopathic on mechanical ventilation via tracheostomy. 11/30: Remains encephalopathic on mechanical ventilation via tracheostomy. 12/01 Patient s/p transfusion 1unit PRBC last night for Hgb 5.8 in addition to 2L NS. Hgb 6.5 this morning. 12/02: Afebrile. The patient underwent CT-guided thoracentesis yesterday with approximately 600 cc removed. Chest x-ray pending this a.m.. Patient received packed red blood cell 2 units yesterday. Hemoglobin 7.4. Pending EGD today. 12/03:The patient underwent EGD yesterday with Dr. Farnsworth patient was noted to have a large active bleeding ulcer in the body of the stomach, multiple AVMs. Multiple ablations performed. This a.m. hemoglobin dropped to 6.1, platelet count 38. The patient was transfused 2 PRBC, and a unit of platelets. Patient still not relieved receiving any nutrition will begin PPN today. The patient continues to have copious amounts of melena with fecal incontinence apparatus in place. 12/04: The patient continues to have copious melena. PT INR drawn last evening INR was noted to be 13.5. The patient received KCentra, and current INR 1.3 the family requests aggressive measures to be continued. No further interventions from gastroenterology per . IR deemed the patient not a candidate for arteriography or endovascular treatment. 12/05: Patient's current medical status unchanged. Large tarry stools, acute blood loss anemia continues in conjunction with thrombocytopenia. During the night the nurse reported a malodorous scent was noted in free water flush container for instillation through G-tube. It was noted to be possibly fish oil , patient's son was in the room during that time. Container removed. The patient is noted to have a hemoglobin level of 5.8 today will receive 2 units of packed red blood cells and 1 unit of platelets today. 12/06: The patient continues to have copious melena. The patient received one 6 pack of platelets, and 2 units of blood yesterday. Tonight as reported by the nurse in the evening the son continue to utilize fish oil in the patient's free water, which was removed by the nurse. Ethics committee consult was initiated with Dr. Bauer yesterday, regarding assessing goals of care. 12/07: The patient's INR 1.3. Patient received 2 units of blood and one 6 pack of platelets yesterday. Awaiting ethics committee meeting with Dr. Bauer. The patient continues to require transfusions. 4/14: Patient was noted to have a drop in hemoglobin this a.m.. The patient is being transfused 2 units of PRBCs, with noted difficulty obtaining unit secondary to antibodies. Hematology will be consulted. Bioethics committee meeting planned to convene in one week, patient's son has agreed to attend. 12/09: Afebrile. No change in neuro status. Wound Care consult for left and blisters on back, orders provided. Hemoglobin stable post 2 units packed red blood cells yesterday. 12/10: The patient's hemoglobin 7.6 yesterday, hemoglobin pending for today. Overnight RN reported family member son continually putting some chemicals in the gastric tube of the patient, risk management notified. Hematology oncology has evaluated the patient, awaiting bioethics committee meeting scheduled for next week. The patient continues on PPN for nutritional support. 12/11 Patient remains on ventilator via trach on no sedation unresponsive. Afebrile.On Protonix drip and PPN. Objective Vital Signs Date Time Temp Pulse Resp B/P Pulse Ox O2 Delivery O2 Flow Rate FiO2 12/11/16 08:00 30 12/11/16 08:00 94 12/11/16 06:00 67 12/11/16 04:00 98.3 15 110/56 Intake and Output 12/10/16 12/10/16 12/11/16 08:00 16:00 00:00 Intake Total 1034 ml 645 ml 577 ml Output Total 600 ml 700 ml 700 ml Balance 434 ml -55 ml -123 ml Result Diagram: 12/11/16 0453 12/11/16 0453 Other Results Laboratory Tests Test 12/10/16 12/11/16 10:20 04:53 White Blood Count 4.9 TH/MM3 4.3 TH/MM3 Red Blood Count 2.47 MIL/MM3 2.33 MIL/MM3 Hemoglobin 7.4 GM/DL 7.1 GM/DL Hematocrit 22.6 % 21.3 % Mean Corpuscular Volume 91.4 FL 91.4 FL Mean Corpuscular Hemoglobin 29.8 PG 30.5 PG Mean Corpuscular Hemoglobin 32.6 % 33.4 % Concent Red Cell Distribution Width 20.4 % 23.1 % Platelet Count 54 TH/MM3 51 TH/MM3 Mean Platelet Volume 11.1 FL 10.5 FL Prothrombin Time 15.9 SEC Prothromb Time International 1.4 RATIO Ratio Sodium Level 143 MEQ/L Potassium Level 3.5 MEQ/L Chloride Level 108 MEQ/L Carbon Dioxide Level 25.2 MEQ/L Anion Gap 10 MEQ/L Blood Urea Nitrogen 108 MG/DL Creatinine 2.67 MG/DL Estimat Glomerular Filtration 17 ML/MIN Rate Random Glucose 140 MG/DL Calcium Level 8.5 MG/DL Imaging Last Impressions Chest X-Ray 12/07/16 0600 Signed Impressions: Service Date/Time: November 02:30 - CONCLUSION: Diffuse bilateral patchy airspace disease and suspect small pleural effusions. Leonardo Yung MD Thoracentesis 12/01/16 0000 Signed Impressions: Service Date/Time: Thursday, December 01, 2016 18:56 - CONCLUSION: Uncomplicated CT-guided thoracentesis. Jeffery Alvarado MD Chest CT 12/01/16 0000 Signed Impressions: Service Date/Time: Thursday, December 01, 2016 13:09 - CONCLUSION: Bilateral pleural effusion, larger on the right than the left. Mack Cao MD FACR Abdomen/Pelvis CT 12/01/16 0000 Signed Impressions: Service Date/Time: Thursday, December 01, 2016 13:09 - CONCLUSION: 1. Right inguinal hernia containing only fluid. 2. Generalized anasarca. 3. Trace ascites. 4. Bilateral pleural effusions, larger on the right than the left. Mack Cao MD FACR Abdomen Ultrasound 11/27/16 0000 Signed Impressions: Service Date/Time: Sunday, November 27, 2016 08:35 - CONCLUSION: Stone in the neck of the gallbladder. Trace ascites and mild splenomegaly Jeffery Alvarado MD Gastrostomy Tube Placement 11/24/16 0000 Signed Impressions: Service Date/Time: Sunday, November 27, 2016 14:34 - CONCLUSION: Uncomplicated gastrostomy tube placement as above. Kirit Alcantar MD Head CT 11/08/16 9837 Signed Impressions: Service Date/Time: Tuesday, November 08, 2016 17:06 - CONCLUSION: Low density seen throughout the posterior circulation regions including the susan and midbrain, cerebellar hemispheres, occipital and posterior medial temporal lobes and right thalamus. This likely represents areas of infarction involving the posterior territory circulation. Jeffery Zhong MD Carotid Artery Ultrasound 11/08/16 0000 Signed Impressions: Service Date/Time: Tuesday, November 08, 2016 22:24 - CONCLUSION: Mild calcified plaque at the carotid bulbs. No evidence of hemodynamically significant carotid stenosis. José Luis Beltran MD Objective Remarks GENERAL: Patient is 86 yo on ventilator via trach. SKIN: Warm and dry. HEAD: Normocephalic. EYES: No scleral icterus. No injection or drainage. NECK: Supple, trachea midline. No JVD or lymphadenopathy. CARDIOVASCULAR: Regular rate and rhythm without murmurs, gallops, or rubs. RESPIRATORY: Breath sounds equal bilaterally. Few coarse BS. 8.0 trach in situ GASTROINTESTINAL: Abdomen soft, non-tender, nondistended. PEG in place MUSCULOSKELETAL: No cyanosis, peripheral 2+ edema bilateral upper extremities. Left heel gauze dressing Neuro: Positive corneal reflex. LIDYA. Negative cough. Negative gag. Extensor posturing in uppers. Downgoing Babinski. 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 She was last seen normal, nearly 24 hours, she was not a candidate for any interventional therapy. Unfortunately, given her age, and the extent of the stroke, her prognosis for any reasonable neurologic function is quite poor. Active GI bleed discussed with family, and patient's poor prognosis. Her family continues to express wishes for aggressive medical management. Bioethics has been consulted. Active problems: Massive posterior circulation ischemic CVA Hypoxic and hypercarbic respiratory failure Severe encephalopathy secondary to stroke Severe sepsis Healthcare associated pneumonia with pleural effusion Acute kidney injury UTI Anemia-acute and chronic Hyperglycemia of critical illness Thrombocytopenia Active GI bleed with AVM's Plan Neuro: Monitor neuro status per ICU protocol - Avoid sedatives. Neuro is following -11/08 CT brain: Low density seen throughout the posterior circulation regions including the susan and midbrain, cerebellar hemispheres, occipital and posterior medial temporal lobes and right thalamus. This likely represents areas of infarction involving the posterior territory circulation -GCS 3T, decerebrate posturing Resp: -Continue with vent support keep sat >92% Vent bundle, Head of bed 30, bronchodilators-scheduled -s/p trach 11/23, pulm toilet, trach care -SBT daily as lia -s/p CT guided right thoracentesis 11/27 with removal 700ml clear fluid. CVS: Monitor HR and BP keep MAP>65mmhg 2-D echo -EF 5560 %, mild aortic mitral and tricuspid regurgitation, No RWMA. 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 --IR intervention-patient is not a candidate. Continue with Protonix drip. -s/p PEG tube placement by IR 11/27 , TF held (Jevity 1.5 with goal rate 45 ml/hr ) secondary to GI bleeding -s/p EGD 11/24 showed mild gastritis unable to place PEG tube endoscopically. -Monitor LFT's, US abdomen: Stone in neck of gall bladder, no hydronephrosis -12/01 CT abdomen/pelvis-generalized anasarca, trace ascites, bilateral pleural effusions right greater than left -Patient continues on PPN 42/an hour for nutritional support : -Monitor renal function, I/O's, electrolytes replacement as needed. Cr: 2.67 today from 2.75 with UO: 1850ml in 24 hrs -on Albumin 25gms Q12, Bumex 2mg IV BID. Renal is following- Dr. Zuniga -On Free water 250ml Q6 monitor sodium level. ID: -Off abx per ID monitor for signs of infections ( Fever, WBC) -Urine culture 11/18/16 with Brionna albicans and E coli NOT S Levaquin, but S to zosyn -Infectious disease Dr. Wne, follow up on sputum cx 11/23: nl resp erica Heme Monitor CBC, Will transfuse 1unit PRBC today for Hgb 7.1 Hematology is following-Dr. Katty Zabala: --Medium dose sliding scale regimen Msk: --Red and sacral area, left heel wound --12/06 Wound care consulted --Specialty bed-Airflow Proph: Subcutaneous heparin on hold since 11/23 secondary to thrombocytopenia, anemia and GI bleed. SCDs for DVT prophylaxis Protonix for GI prophylaxis -Palliative care is following IV access: Peripheral IV's Palliative care is following. Level 3 Kacy Ayala MD Dec 11, 2016 10:11
--- NOTE | 2016-12-11 13:38 | HHI.NPPN ---
Subjective History of Present Illness 86 year old with CVA, Resp failure s/p Trach/ PEG Additional Remarks Remains on Vent, ongoing anemia. Objective Data Data 12/10/16 12/11/16 19:00 07:00 Intake Total 645 ml 1707 ml Output Total 700 ml 1250 ml Balance -55 ml 457 ml IV Total 545 ml 191 ml TPN/PPN 943 ml Lipid 163 ml Albumin 100 ml 100 ml Other 310 ml Output Urine Total 700 ml 1150 ml Stool Total 100 ml Vital Signs Date Time Temp Pulse Resp B/P Pulse Ox O2 Delivery O2 Flow Rate FiO2 12/11/16 12:00 97.7 79 20 134/63 91 12/11/16 12:00 79 12/11/16 12:00 30 12/11/16 11:28 94 30 12/11/16 10:00 77 12/11/16 08:00 30 12/11/16 08:00 75 12/11/16 08:00 30 12/11/16 08:00 97.4 75 10 119/57 92 12/11/16 08:00 94 30 12/11/16 08:00 30 12/11/16 06:00 67 12/11/16 04:10 99 30 12/11/16 04:00 68 12/11/16 04:00 30 12/11/16 04:00 98.3 66 15 110/56 100 12/11/16 02:00 68 12/11/16 01:13 100 30 12/11/16 00:00 30 12/11/16 00:00 69 12/11/16 00:00 98.5 69 20 96/58 100 12/10/16 22:23 100 30 12/10/16 22:00 67 12/10/16 20:00 68 12/10/16 20:00 30 12/10/16 20:00 100 30 12/10/16 20:00 98.2 68 17 114/77 97 12/10/16 18:00 79 12/10/16 16:00 74 12/10/16 16:00 98.3 70 17 139/63 97 12/10/16 16:00 30 12/10/16 14:50 97 30 12/10/16 14:00 68 -: 12/11/16 0453 12/11/16 0453 Physical Exam General Appearance: Pale Neck Neck Remarks s/p trach Pulmonary Resp Exam: Decreased Bases Cardiology CV Exam: Regular Gastrointestinal/Abdomen GI Exam: Soft, Non-Tender Extremeties Extremities Exam: Moderate Edema Assessment/Plan Problem List: (1) Acute renal failure Plan: Patient has multiple issues and has malnutrition with poor albumin contributing to low oncotic pressure, ATN creatinine stable: 3.6 -> 3.5 -> 3.5 --> 3.4 --> 3.37 --> 3.05 --> 2.7 -->2.7 -- >. 2.6 On Bumex 2 mg IV q12 - continue for now. Good UOP with 1.8 L/ 24 hours replace K no meaningful recovery from CVA at this point Palliative care following. Apparently son would like to fly her to [facility] for stem cell treatment. Continue to follow goals of care. 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 Ongoing anemia, continue to monitor. getting PRBC on regular interval agree with Palliative care ethics meeting with son as futile care with hopeless situation and no chance of meaningful recovery (2) Metabolic acidosis Plan: Stable, continue to monitor (3) Pneumonia Plan: On vent treated earlier with antibiotic (4) Urinary tract infection Plan: Escherichia coli she was treated (5) CVA (cerebral vascular accident) Plan: Massive stroke neurology following (6) Rhabdomyolysis Plan: This resolved (7) Hypernatremia Plan: Given 1L of DW over weekend improved Continue to monitor, repeat as necessary Problem Qualifiers (1) Acute renal failure: Qualified Code: N17.9 - Acute renal failure, unspecified acute renal failure type (2) CVA (cerebral vascular accident): Qualified Code: I63.9 - Cerebrovascular accident (CVA), unspecified mechanism (3) Rhabdomyolysis: Qualified Code: M62.82 - Non-traumatic rhabdomyolysis Kristel Zuniga MD Dec 11, 2016 13:38
[2016-12-11] MEDS ORDERED: POTASSIUM CHLORIDE INJ 30 MEQ in SODIUM CHLORIDE 0.9% INJ 100 ML IV-CENTRAL ONE (14:00)
[2016-12-11] MEDS: POTASSIUM CHLOR 10 MEQ PREMIX 100 ML IV SCH ×3 (15:53→17:02)
[2016-12-11] MEDS: CLINIMIX 4.25/5 (Cust.Renal Periph) 1000 mL- </= 42 mls/hr IV SCH ×8 (20:40)
[2016-12-12] VITALS (19 sets, daily range): BP systolic 115–156; BP diastolic 58–70; PULSE 78–101; RESP 7–22; TEMP 98.1–99.4; O2SAT 97–100
[2016-12-12] MEDS: HIGH DOSE INSULIN NOVOLIN REGULAR SUPPLEMENTAL SCALE SQ SCH ×5 (00:36→17:39)
[2016-12-12] MEDS: PANTOPRAZOLE INJ 80 MG in SODIUM CHLORIDE 0.9% INJ 100 ML IV SCH ×3 (02:20→22:25)
[2016-12-12] MEDS: ALBUMIN HUMAN 25% 25 GM/100 ML BAGP IV SCH (02:20)
[2016-12-12] MEDS: CHLORHEXIDINE GLUCONATE 2 % 1 PACK (2 CLOTHS) TOP SCH ×2 (04:14→22:25)
[2016-12-12 04:18] LABS: AUTOMATED NEUTROPHIL # 3.3 TH/MM3 (1.8-7.7); BASOPHIL % 0.6 % (0.0-2.0); EOSINOPHIL # 0.8 TH/MM3 (0-0.4); EOSINOPHIL % 15.2 % (0.0-4.0); LYMPH % 11.4 % (9.0-44.0); LYMPHOCYTE # 0.6 TH/MM3 (1.0-4.8); MEAN CELL VOLUME 91.7 FL (80.0-100.0); MEAN CORPUSCULAR HEMOGLOBIN 30.3 PG (27.0-34.0); MEAN CORPUSCULAR HGB CONC 33.1 % (32.0-36.0); MONO % 8.4 % (0.0-8.0); NEUT % 64.4 % (16.0-70.0); PLATELET COUNT 55 TH/MM3 (150-450); RED BLOOD COUNT 2.25 MIL/MM3 (4.00-5.30); RED CELL DISTRIBUTION WIDTH 22.8 % (11.6-17.2); WHITE BLOOD COUNT 5.1 TH/MM3 (4.0-11.0)
[2016-12-12 04:27] LABS: HEMO FLAGS AUTO DIFF
[2016-12-12 04:29] LABS: HEMATOCRIT 20.6 % (35.0-46.0)
[2016-12-12 04:38] LABS: BICARBONATE 23.4 MEQ/L (21.0-32.0); POTASSIUM 3.7 MEQ/L (3.5-5.1)
[2016-12-12] MEDS: FREE WATER G-TUBE SCH ×4 (06:00→17:41)
[2016-12-12 07:24] LABS: BANDS 16 % (0-6); EOSINOPHILS 19 % (0-4); METAMYELOCYTES 2 % (0-1); NEUTROPHIL # MANUAL DIFF 3.6 TH/MM3 (1.8-7.7); POLYS (SEG NEUTROPHILS) 52 % (16-70); WBC DIFF SAMPLE 100
[2016-12-12 07:25] LABS: OVALOCYTES 1+ (NORMAL); POLYCHROMASIA 2.1 % (0.0-1.9)
[2016-12-12 07:26] LABS: PLATELET ESTIMATE SMEAR LOW (NORMAL); PLATELET MORPHOLOGY NORMAL (NORMAL); SCAN/DIFF FINAL DIFF MANUAL; TEARDROP RBCS 1+ (NORMAL)
--- NOTE | 2016-12-12 08:01 | HHI.CCPN ---
Subjective Remarks/Hospital Course This is an 86yF with per report no other past medical history who presented to the ER after she was found unresponsive in her bed. According to ER reports, her family saw her normal last night when she had a fall, with unknown LOC. At that point, he helped her back to bed. However, this morning she did not wake up. On arrival to the ER, she was unresponsive only withdrawing to pain. she was intubated for airway protection and a poor GCS. CT head demonstrated massive posterior-circulation ischemic stroke. The patient is currently intubated and unresponsive and cannot provide any additional history. 11/09: No acute changes overnight. Palliative care team has consult with the family regarding goals of care. Currently the patient's sedation fentanyl infusion has been turned off without any response from patient. The patient notably does withdrawal to pain. 11/10: No change in neurological status. [id number]. The patient withdraws to pain 4 extremities. The patient currently on no sedation, fentanyl infusion discontinued yesterday. Tube feeds were initiated. The patient's urine culture grew back Escherichia coli, the patient was started on antibiotics. Extensive discussion with son regarding patient's neurological status, son Wyatt has had extensive discussion with palliative care.The son feels that yesterday when the patient was spoken to in [place] the patient squeezed his hand and desires aggressive treatment. The patient's neuro status is unchanged, totally unresponsive with occasional reflexive twitching of feet B/L. Follow-up with neurology Dr. Pack, guarding any further imaging studies. 11/13: No change in neuro exam. Palliative care following. Family wanting full aggressive care. Palliative care will address early trach PEG 11/14: No improvement in neuro status. Son has not made decisions regarding trach and PEG. Apparently he wants to wait longer to see any improvement 11/15: Remains unresponsive. Neuro exam with extensor posturing-unchanged. Son requesting aggressive care. Continues to have low-grade fever 11/16: Clinically no improvement. Tolerates CPAP. Unable to extubate as patient will not protect airway 11/17: Tolerating C Pap but no change in neuro exam. Hemoglobin noted to be 6.8 hemodynamically stable 11/18: Became tachycardic and hypotensive early a.m., placed on assist control. Otherwise neuro exam remains unchanged 11/19: Continues to spike fever Tmax 102, started on vancomycin and cefepime in addition to Levaquin yesterday. Currently only low-grade fever. Received 2 units of blood for hemoglobin of 5.3. CBC pending at this time. No improvement in neuro exam 11/20: White count is 18.3 today, MAXIMUM TEMPERATURE 103.1. Chest x-ray showing right sided infiltrate. Urine culture with gram-negative rods and Brionna albicans. ID consulted Diflucan added 11/21/16: Tmax 101.5. Bilateral lung infiltrates, R>L but slightly improved. No improvement in neuro exam. ID consulted and following. 11/22/16: No fever. CT chest- moderate to large R pleural effusion, bilateral lung infiltrates. ABX per ID. CXR today shows increasing bilateral infiltrates and effusion right more than left. Almost near complete infiltrates on the right lung [place]. Vaginally worsening creatinine today 1.45 indicating multiorgan failure 11/23/16: Hb 9.8 today after 2U PRBC yesterday. Plan for tracheostomy today. INR normal platelet count 116. Worsening creatinine today is 1.6. UO 550 ml in 24 hours. 1L NS bolus and 75 ml per hour maintenance NS. Started on Dopamine 3 mcg per min to maintain MAP>65 11/24 Patient is on ventilator via trach. Afebrile. On Dopamine 4 mics. 11/25 No acute events overnight. s/p EGD yesterday showed mild gastritis unable to place PEG tube endoscopically. Remains on Dopamine 4 mics. On no sedation unresponsive. 11/26 No acute events overnight. On CPAP with PS 20, PEEP: 5 and FIO2 40%. Afebrile. Off Dopamine. Afebrile. 11/27 Patient remains on ventilator via trach on no drips. Afebrile. For PEG tube placement by IR today. 11/28 Patient s/p PEG tube placement by IR yesterday, s/p Right thoracentesis with removal 700ml CXR showed better aeration of lungs, Hgb 6.7 this morning 2units PRBC ordered. Renal function worse with Cr: 3.40 from 2.85 . 11/29: Remains encephalopathic on mechanical ventilation via tracheostomy. 11/30: Remains encephalopathic on mechanical ventilation via tracheostomy. 12/01 Patient s/p transfusion 1unit PRBC last night for Hgb 5.8 in addition to 2L NS. Hgb 6.5 this morning. 12/02: Afebrile. The patient underwent CT-guided thoracentesis yesterday with approximately 600 cc removed. Chest x-ray pending this a.m.. Patient received packed red blood cell 2 units yesterday. Hemoglobin 7.4. Pending EGD today. 12/03:The patient underwent EGD yesterday with Dr. Farnsworth patient was noted to have a large active bleeding ulcer in the body of the stomach, multiple AVMs. Multiple ablations performed. This a.m. hemoglobin dropped to 6.1, platelet count 38. The patient was transfused 2 PRBC, and a unit of platelets. Patient still not relieved receiving any nutrition will begin PPN today. The patient continues to have copious amounts of melena with fecal incontinence apparatus in place. 12/04: The patient continues to have copious melena. PT INR drawn last evening INR was noted to be 13.5. The patient received KCentra, and current INR 1.3 the family requests aggressive measures to be continued. No further interventions from gastroenterology per . IR deemed the patient not a candidate for arteriography or endovascular treatment. 12/05: Patient's current medical status unchanged. Large tarry stools, acute blood loss anemia continues in conjunction with thrombocytopenia. During the night the nurse reported a malodorous scent was noted in free water flush container for instillation through G-tube. It was noted to be possibly fish oil , patient's son was in the room during that time. Container removed. The patient is noted to have a hemoglobin level of 5.8 today will receive 2 units of packed red blood cells and 1 unit of platelets today. 12/06: The patient continues to have copious melena. The patient received one 6 pack of platelets, and 2 units of blood yesterday. Tonight as reported by the nurse in the evening the son continue to utilize fish oil in the patient's free water, which was removed by the nurse. Ethics committee consult was initiated with Dr. Bauer yesterday, regarding assessing goals of care. 12/07: The patient's INR 1.3. Patient received 2 units of blood and one 6 pack of platelets yesterday. Awaiting ethics committee meeting with Dr. Bauer. The patient continues to require transfusions. 4/14: Patient was noted to have a drop in hemoglobin this a.m.. The patient is being transfused 2 units of PRBCs, with noted difficulty obtaining unit secondary to antibodies. Hematology will be consulted. Bioethics committee meeting planned to convene in one week, patient's son has agreed to attend. 12/09: Afebrile. No change in neuro status. Wound Care consult for left and blisters on back, orders provided. Hemoglobin stable post 2 units packed red blood cells yesterday. 12/10: The patient's hemoglobin 7.6 yesterday, hemoglobin pending for today. Overnight RN reported family member son continually putting some chemicals in the gastric tube of the patient, risk management notified. Hematology oncology has evaluated the patient, awaiting bioethics committee meeting scheduled for next week. The patient continues on PPN for nutritional support. 12/11 Patient remains on ventilator via trach on no sedation unresponsive. Afebrile.On Protonix drip and PPN. 12/12 No acute events overnight. Afebrile. Hgb 6.8 this morning 2 units PRBC ordered . Objective Vital Signs Date Time Temp Pulse Resp B/P Pulse Ox O2 Delivery O2 Flow Rate FiO2 12/12/16 06:00 80 12/12/16 04:15 100 30 12/12/16 04:00 98.5 22 115/58 Intake and Output 12/11/16 12/11/16 12/12/16 08:00 16:00 00:00 Intake Total 1130 ml 983 ml 1069 ml Output Total 550 ml 725 ml 1100 ml Balance 580 ml 258 ml -31 ml Result Diagram: 12/12/16 0335 12/12/16 0335 Other Results Laboratory Tests Test 12/12/16 03:35 White Blood Count 5.1 TH/MM3 Red Blood Count 2.25 MIL/MM3 Hemoglobin 6.8 GM/DL Hematocrit 20.6 % Mean Corpuscular Volume 91.7 FL Mean Corpuscular Hemoglobin 30.3 PG Mean Corpuscular Hemoglobin 33.1 % Concent Red Cell Distribution Width 22.8 % Platelet Count 55 TH/MM3 Mean Platelet Volume 10.6 FL Neutrophils (%) (Auto) 64.4 % Lymphocytes (%) (Auto) 11.4 % Monocytes (%) (Auto) 8.4 % Eosinophils (%) (Auto) 15.2 % Basophils (%) (Auto) 0.6 % Neutrophils # (Auto) 3.3 TH/MM3 Lymphocytes # (Auto) 0.6 TH/MM3 Monocytes # (Auto) 0.4 TH/MM3 Eosinophils # (Auto) 0.8 TH/MM3 Basophils # (Auto) 0.0 TH/MM3 CBC Comment AUTO DIFF Differential Total Cells 100 Counted Neutrophils % (Manual) 52 % Band Neutrophils % 16 % Lymphocytes % 7 % Monocytes % 4 % Eosinophils % 19 % Neutrophils # (Manual) 3.6 TH/MM3 Metamyelocytes 2 % Differential Comment FINAL DIFF MANUAL Platelet Estimate LOW Platelet Morphology Comment NORMAL Polychromasia 2.1 % Tear Drop Cells 1+ Ovalocytes 1+ Sodium Level 143 MEQ/L Potassium Level 3.7 MEQ/L Chloride Level 107 MEQ/L Carbon Dioxide Level 23.4 MEQ/L Anion Gap 13 MEQ/L Blood Urea Nitrogen 106 MG/DL Creatinine 2.62 MG/DL Estimat Glomerular Filtration 17 ML/MIN Rate Random Glucose 146 MG/DL Calcium Level 8.5 MG/DL Imaging Last Impressions Chest X-Ray 12/07/16 0600 Signed Impressions: Service Date/Time: November 02:30 - CONCLUSION: Diffuse bilateral patchy airspace disease and suspect small pleural effusions. Leonardo Yung MD Thoracentesis 12/01/16 0000 Signed Impressions: Service Date/Time: Thursday, December 01, 2016 18:56 - CONCLUSION: Uncomplicated CT-guided thoracentesis. Jeffery Alvarado MD Chest CT 12/01/16 0000 Signed Impressions: Service Date/Time: Thursday, December 01, 2016 13:09 - CONCLUSION: Bilateral pleural effusion, larger on the right than the left. Mack Cao MD FACR Abdomen/Pelvis CT 12/01/16 0000 Signed Impressions: Service Date/Time: Thursday, December 01, 2016 13:09 - CONCLUSION: 1. Right inguinal hernia containing only fluid. 2. Generalized anasarca. 3. Trace ascites. 4. Bilateral pleural effusions, larger on the right than the left. Mack Cao MD FACR Abdomen Ultrasound 11/27/16 0000 Signed Impressions: Service Date/Time: Sunday, November 27, 2016 08:35 - CONCLUSION: Stone in the neck of the gallbladder. Trace ascites and mild splenomegaly Jeffery Alvarado MD Gastrostomy Tube Placement 11/24/16 0000 Signed Impressions: Service Date/Time: Sunday, November 27, 2016 14:34 - CONCLUSION: Uncomplicated gastrostomy tube placement as above. Kirit Alcantar MD Head CT 11/08/16 1657 Signed Impressions: Service Date/Time: Tuesday, November 08, 2016 17:06 - CONCLUSION: Low density seen throughout the posterior circulation regions including the susan and midbrain, cerebellar hemispheres, occipital and posterior medial temporal lobes and right thalamus. This likely represents areas of infarction involving the posterior territory circulation. Jeffery Zhong MD Carotid Artery Ultrasound 11/08/16 0000 Signed Impressions: Service Date/Time: Tuesday, November 08, 2016 22:24 - CONCLUSION: Mild calcified plaque at the carotid bulbs. No evidence of hemodynamically significant carotid stenosis. José Luis Beltran MD Objective Remarks GENERAL: Patient is 86 yo on ventilator via trach. SKIN: Warm and dry. HEAD: Normocephalic. EYES: No scleral icterus. No injection or drainage. NECK: Supple, trachea midline. No JVD or lymphadenopathy. CARDIOVASCULAR: Regular rate and rhythm without murmurs, gallops, or rubs. RESPIRATORY: Breath sounds equal bilaterally. Few coarse BS. 8.0 trach in situ GASTROINTESTINAL: Abdomen soft, non-tender, nondistended. PEG in place MUSCULOSKELETAL: No cyanosis, peripheral 2+ edema bilateral upper extremities. Left heel gauze dressing Neuro: Positive corneal reflex. LIDYA. Negative cough. Negative gag. Extensor posturing in uppers. Downgoing Babinski. 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 She was last seen normal, nearly 24 hours, she was not a candidate for any interventional therapy. Unfortunately, given her age, and the extent of the stroke, her prognosis for any reasonable neurologic function is quite poor. Active GI bleed discussed with family, and patient's poor prognosis. Her family continues to express wishes for aggressive medical management. Bioethics has been consulted. Active problems: Massive posterior circulation ischemic CVA Hypoxic and hypercarbic respiratory failure Severe encephalopathy secondary to stroke Severe sepsis Healthcare associated pneumonia with pleural effusion Acute kidney injury UTI Anemia-acute and chronic Hyperglycemia of critical illness Thrombocytopenia Active GI bleed with AVM's Plan Neuro: Monitor neuro status per ICU protocol - Avoid sedatives. Neuro is following -11/08 CT brain: Low density seen throughout the posterior circulation regions including the susan and midbrain, cerebellar hemispheres, occipital and posterior medial temporal lobes and right thalamus. This likely represents areas of infarction involving the posterior territory circulation -GCS 3T, decerebrate posturing Resp: -Continue with vent support keep sat >92% Vent bundle, Head of bed 30, bronchodilators-scheduled -s/p trach 11/23, pulm toilet, trach care -SBT daily as lia -s/p CT guided right thoracentesis 11/27 with removal 700ml clear fluid. CVS: Monitor HR and BP keep MAP>65mmhg 2-D echo -EF 5560 %, mild aortic mitral and tricuspid regurgitation, No RWMA. 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 --IR intervention-patient is not a candidate. Continue with Protonix drip. -s/p PEG tube placement by IR 11/27 , TF held (Jevity 1.5 with goal rate 45 ml/hr ) secondary to GI bleeding -s/p EGD 11/24 showed mild gastritis unable to place PEG tube endoscopically. -Monitor LFT's, US abdomen: Stone in neck of gall bladder, no hydronephrosis -12/01 CT abdomen/pelvis-generalized anasarca, trace ascites, bilateral pleural effusions right greater than left -Patient is on PPN 42/an hour for nutritional support : -Monitor renal function, I/O's, electrolytes replacement as needed. Cr: 2.62 today from 2.67 with UO: 2025 ml in 24 hrs -on Albumin 25gms Q12, Bumex 2mg IV BID. Renal is following- Dr. Zuniga -On Free water 250ml Q6 monitor sodium level. ID: -Off abx per ID monitor for signs of infections ( Fever, WBC) -Urine culture 11/18/16 with Brionna albicans and E coli NOT S Levaquin, but S to zosyn -Infectious disease Dr. Wen, sputum cx 11/23: nl resp erica Heme Monitor CBC, for transfusion 2units PRBC today for Hgb 6.8. On Fe Sulfate 300mg BID Hematology is following-Dr. Katty Zabala: --Medium dose sliding scale regimen Msk: --Red and sacral area, left heel wound --12/06 Wound care consulted --Specialty bed-Airflow Proph: Subcutaneous heparin on hold since 11/23 secondary to thrombocytopenia, anemia and GI bleed. SCDs for DVT prophylaxis Protonix for GI prophylaxis -Palliative care is following IV access: Peripheral IV's Palliative care is following. Level 3 Kacy Ayala MD Dec 12, 2016 08:01
[2016-12-12] MEDS: SODIUM CHLORIDE 0.9% FLUSH 5 ML FLUSH IV FLUSH SCH ×2 (09:00→21:00)
[2016-12-12] MEDS: FERROUS SULFATE 300 MG /5ML UDC PO SCH ×2 (09:11→22:12)
[2016-12-12] MEDS: BUMETANIDE INJ 1 MG/4 ML VIAL IV PUSH SCH ×2 (09:11→17:39)
[2016-12-12] MEDS: CHLORHEXIDINE 0.12% (ORAL KIT) 15 ML CUP MT SCH ×2 (09:12→22:22)
[2016-12-12] MEDS: ARTIFICIAL TEARS OPTH SOLN 15 ML BTL EACH EYE SCH ×3 (09:12→17:43)
--- NOTE | 2016-12-12 10:35 | HHI.NPPN ---
Subjective History of Present Illness 86 year old with CVA, Resp failure s/p Trach/ PEG Additional Remarks Remains on Vent, ongoing anemia. Objective Data Data 12/11/16 12/12/16 19:00 07:00 Intake Total 983 ml 1807 ml Output Total 725 ml 1700 ml Balance 258 ml 107 ml IV Total 61 ml 470 ml TPN/PPN 261 ml 651 ml Lipid 61 ml 156 ml Albumin 100 ml 100 ml Other 500 ml 430 ml Output Urine Total 425 ml 1600 ml Stool Total 300 ml 100 ml # Bowel Movements 2 Vital Signs Date Time Temp Pulse Resp B/P Pulse Ox O2 Delivery O2 Flow Rate FiO2 12/12/16 07:56 100 30 12/12/16 06:00 80 12/12/16 04:15 100 30 12/12/16 04:00 30 12/12/16 04:00 98.5 82 22 115/58 100 12/12/16 04:00 82 12/12/16 02:00 82 12/12/16 01:12 99 30 12/12/16 00:00 85 12/12/16 00:00 98.4 85 18 124/58 99 12/12/16 00:00 30 12/11/16 23:18 100 30 12/11/16 22:00 82 12/11/16 20:00 97.8 83 16 103/59 97 12/11/16 20:00 83 12/11/16 20:00 30 12/11/16 18:00 80 12/11/16 17:21 97 30 12/11/16 16:00 78 12/11/16 16:00 98.1 78 18 110/53 94 12/11/16 16:00 30 12/11/16 14:00 75 12/11/16 12:00 97.7 79 20 134/63 91 12/11/16 12:00 79 12/11/16 12:00 30 12/11/16 11:28 94 30 -: 12/12/16 0335 12/12/16 0335 Physical Exam General Appearance: Pale Neck Neck Remarks s/p trach Pulmonary Resp Exam: Decreased Bases Cardiology CV Exam: Regular Gastrointestinal/Abdomen GI Exam: Soft, Non-Tender Extremeties Extremities Exam: Moderate Edema Assessment/Plan Problem List: (1) Acute renal failure Plan: Patient has multiple issues and has malnutrition with poor albumin contributing to low oncotic pressure, ATN creatinine stable: 3.6 -> 3.5 -> 3.5 --> 3.4 --> 3.37 --> 3.05 --> 2.7 -->2.7 -- >. 2.6 -->2.6 On Bumex 2 mg IV q12 - continue for now. Good UOP with 2.02 L/ 24 hours K better post replacement may stop Albumin no meaningful recovery from CVA at this point Palliative care following. Apparently son would like to fly her to [facility] for stem cell treatment. Continue to follow goals of care. 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 Ongoing anemia, continue to monitor. getting PRBC on regular interval agree with Palliative care ethics meeting with son as futile care with hopeless situation and no chance of meaningful recovery (2) Metabolic acidosis Plan: Stable, continue to monitor (3) Pneumonia Plan: On vent treated earlier with antibiotic (4) Urinary tract infection Plan: Escherichia coli she was treated (5) CVA (cerebral vascular accident) Plan: Massive stroke neurology following (6) Rhabdomyolysis Plan: This resolved (7) Hypernatremia Plan: Given 1L of DW over weekend improved Continue to monitor, repeat as necessary (8) Gastrointestinal hemorrhage Plan: Multiple PRBC given AVM poor prognosis Problem Qualifiers (1) Acute renal failure: Qualified Code: N17.9 - Acute renal failure, unspecified acute renal failure type (2) CVA (cerebral vascular accident): Qualified Code: I63.9 - Cerebrovascular accident (CVA), unspecified mechanism (3) Rhabdomyolysis: Qualified Code: M62.82 - Non-traumatic rhabdomyolysis Kristel Zuniga MD Dec 12, 2016 10:35
[2016-12-12 18:06] LABS: HEMATOCRIT 29.7 % (35.0-46.0)
[2016-12-12 18:08] LABS: REVIEW FLAG FINAL
[2016-12-12] MEDS: CLINIMIX 4.25/5 (Cust.Renal Periph) 1000 mL- </= 42 mls/hr IV SCH ×8 (22:14)
[2016-12-12] MEDS: FAT EMULSION 20% INJ 250 ML (@10 mls/hr) IV SCH (22:14)
[2016-12-13] VITALS (17 sets, daily range): BP systolic 114–131; BP diastolic 55–62; PULSE 77–89; RESP 15–21; TEMP 98.4–99.4; O2SAT 93–99
[2016-12-13 05:19] LABS: AUTOMATED NEUTROPHIL # 4.6 TH/MM3 (1.8-7.7); BASOPHIL # 0.1 TH/MM3 (0-0.2); BASOPHIL % 1.3 % (0.0-2.0); EOSINOPHIL # 0.8 TH/MM3 (0-0.4); EOSINOPHIL % 12.1 % (0.0-4.0); HEMATOCRIT 26.5 % (35.0-46.0); LYMPH % 8.1 % (9.0-44.0); LYMPHOCYTE # 0.5 TH/MM3 (1.0-4.8); MEAN CELL VOLUME 90.2 FL (80.0-100.0); MEAN CORPUSCULAR HEMOGLOBIN 31.1 PG (27.0-34.0); MEAN CORPUSCULAR HGB CONC 34.5 % (32.0-36.0); MONO % 9.5 % (0.0-8.0); PLATELET COUNT 62 TH/MM3 (150-450); RED BLOOD COUNT 2.94 MIL/MM3 (4.00-5.30); RED CELL DISTRIBUTION WIDTH 18.3 % (11.6-17.2); WHITE BLOOD COUNT 6.7 TH/MM3 (4.0-11.0)
[2016-12-13 05:24] LABS: HEMO FLAGS AUTO DIFF
[2016-12-13 05:39] LABS: BICARBONATE 24.7 MEQ/L (21.0-32.0); POTASSIUM 3.4 MEQ/L (3.5-5.1)
[2016-12-13] MEDS: FREE WATER G-TUBE SCH ×4 (05:50→14:32)
[2016-12-13] MEDS: EPOETIN ALFA 10,000 UNITS/ML VIAL SQ SCH ×2 (05:51→08:21)
[2016-12-13] MEDS: HIGH DOSE INSULIN NOVOLIN REGULAR SUPPLEMENTAL SCALE SQ SCH ×4 (05:51→17:47)
[2016-12-13 06:55] LABS: BANDS 10 % (0-6); CORRECTED NUCLEATED RBC 1 /100 WBC (0-0); EOSINOPHILS 9 % (0-4); METAMYELOCYTES 1 % (0-1); MYELOCYTES 1 % (0-0); POLYS (SEG NEUTROPHILS) 62 % (16-70); WBC DIFF SAMPLE 100
[2016-12-13 06:56] LABS: PLATELET ESTIMATE SMEAR LOW (NORMAL); POLYCHROMASIA 2.4 % (0.0-1.9)
[2016-12-13 06:57] LABS: OVALOCYTES 1+ (NORMAL); PLATELET MORPHOLOGY NORMAL (NORMAL); SCAN/DIFF FINAL DIFF MANUAL
--- NOTE | 2016-12-13 08:17 | HHI.CCPN ---
Subjective Remarks/Hospital Course This is an 86yF with per report no other past medical history who presented to the ER after she was found unresponsive in her bed. According to ER reports, her family saw her normal last night when she had a fall, with unknown LOC. At that point, he helped her back to bed. However, this morning she did not wake up. On arrival to the ER, she was unresponsive only withdrawing to pain. she was intubated for airway protection and a poor GCS. CT head demonstrated massive posterior-circulation ischemic stroke. The patient is currently intubated and unresponsive and cannot provide any additional history. 11/09: No acute changes overnight. Palliative care team has consult with the family regarding goals of care. Currently the patient's sedation fentanyl infusion has been turned off without any response from patient. The patient notably does withdrawal to pain. 11/10: No change in neurological status. [id number]. The patient withdraws to pain 4 extremities. The patient currently on no sedation, fentanyl infusion discontinued yesterday. Tube feeds were initiated. The patient's urine culture grew back Escherichia coli, the patient was started on antibiotics. Extensive discussion with son regarding patient's neurological status, son Wyatt has had extensive discussion with palliative care.The son feels that yesterday when the patient was spoken to in [place] the patient squeezed his hand and desires aggressive treatment. The patient's neuro status is unchanged, totally unresponsive with occasional reflexive twitching of feet B/L. Follow-up with neurology Dr. Pack, guarding any further imaging studies. 11/13: No change in neuro exam. Palliative care following. Family wanting full aggressive care. Palliative care will address early trach PEG 11/14: No improvement in neuro status. Son has not made decisions regarding trach and PEG. Apparently he wants to wait longer to see any improvement 11/15: Remains unresponsive. Neuro exam with extensor posturing-unchanged. Son requesting aggressive care. Continues to have low-grade fever 11/16: Clinically no improvement. Tolerates CPAP. Unable to extubate as patient will not protect airway 11/17: Tolerating C Pap but no change in neuro exam. Hemoglobin noted to be 6.8 hemodynamically stable 11/18: Became tachycardic and hypotensive early a.m., placed on assist control. Otherwise neuro exam remains unchanged 11/19: Continues to spike fever Tmax 102, started on vancomycin and cefepime in addition to Levaquin yesterday. Currently only low-grade fever. Received 2 units of blood for hemoglobin of 5.3. CBC pending at this time. No improvement in neuro exam 11/20: White count is 18.3 today, MAXIMUM TEMPERATURE 103.1. Chest x-ray showing right sided infiltrate. Urine culture with gram-negative rods and Brionna albicans. ID consulted Diflucan added 11/21/16: Tmax 101.5. Bilateral lung infiltrates, R>L but slightly improved. No improvement in neuro exam. ID consulted and following. 11/22/16: No fever. CT chest- moderate to large R pleural effusion, bilateral lung infiltrates. ABX per ID. CXR today shows increasing bilateral infiltrates and effusion right more than left. Almost near complete infiltrates on the right lung [place]. Vaginally worsening creatinine today 1.45 indicating multiorgan failure 11/23/16: Hb 9.8 today after 2U PRBC yesterday. Plan for tracheostomy today. INR normal platelet count 116. Worsening creatinine today is 1.6. UO 550 ml in 24 hours. 1L NS bolus and 75 ml per hour maintenance NS. Started on Dopamine 3 mcg per min to maintain MAP>65 11/24 Patient is on ventilator via trach. Afebrile. On Dopamine 4 mics. 11/25 No acute events overnight. s/p EGD yesterday showed mild gastritis unable to place PEG tube endoscopically. Remains on Dopamine 4 mics. On no sedation unresponsive. 11/26 No acute events overnight. On CPAP with PS 20, PEEP: 5 and FIO2 40%. Afebrile. Off Dopamine. Afebrile. 11/27 Patient remains on ventilator via trach on no drips. Afebrile. For PEG tube placement by IR today. 11/28 Patient s/p PEG tube placement by IR yesterday, s/p Right thoracentesis with removal 700ml CXR showed better aeration of lungs, Hgb 6.7 this morning 2units PRBC ordered. Renal function worse with Cr: 3.40 from 2.85 . 11/29: Remains encephalopathic on mechanical ventilation via tracheostomy. 11/30: Remains encephalopathic on mechanical ventilation via tracheostomy. 12/01 Patient s/p transfusion 1unit PRBC last night for Hgb 5.8 in addition to 2L NS. Hgb 6.5 this morning. 12/02: Afebrile. The patient underwent CT-guided thoracentesis yesterday with approximately 600 cc removed. Chest x-ray pending this a.m.. Patient received packed red blood cell 2 units yesterday. Hemoglobin 7.4. Pending EGD today. 12/03:The patient underwent EGD yesterday with Dr. Farnsworth patient was noted to have a large active bleeding ulcer in the body of the stomach, multiple AVMs. Multiple ablations performed. This a.m. hemoglobin dropped to 6.1, platelet count 38. The patient was transfused 2 PRBC, and a unit of platelets. Patient still not relieved receiving any nutrition will begin PPN today. The patient continues to have copious amounts of melena with fecal incontinence apparatus in place. 12/04: The patient continues to have copious melena. PT INR drawn last evening INR was noted to be 13.5. The patient received KCentra, and current INR 1.3 the family requests aggressive measures to be continued. No further interventions from gastroenterology per . IR deemed the patient not a candidate for arteriography or endovascular treatment. 12/05: Patient's current medical status unchanged. Large tarry stools, acute blood loss anemia continues in conjunction with thrombocytopenia. During the night the nurse reported a malodorous scent was noted in free water flush container for instillation through G-tube. It was noted to be possibly fish oil , patient's son was in the room during that time. Container removed. The patient is noted to have a hemoglobin level of 5.8 today will receive 2 units of packed red blood cells and 1 unit of platelets today. 12/06: The patient continues to have copious melena. The patient received one 6 pack of platelets, and 2 units of blood yesterday. Tonight as reported by the nurse in the evening the son continue to utilize fish oil in the patient's free water, which was removed by the nurse. Ethics committee consult was initiated with Dr. Bauer yesterday, regarding assessing goals of care. 12/07: The patient's INR 1.3. Patient received 2 units of blood and one 6 pack of platelets yesterday. Awaiting ethics committee meeting with Dr. Bauer. The patient continues to require transfusions. 4/14: Patient was noted to have a drop in hemoglobin this a.m.. The patient is being transfused 2 units of PRBCs, with noted difficulty obtaining unit secondary to antibodies. Hematology will be consulted. Bioethics committee meeting planned to convene in one week, patient's son has agreed to attend. 12/09: Afebrile. No change in neuro status. Wound Care consult for left and blisters on back, orders provided. Hemoglobin stable post 2 units packed red blood cells yesterday. 12/10: The patient's hemoglobin 7.6 yesterday, hemoglobin pending for today. Overnight RN reported family member son continually putting some chemicals in the gastric tube of the patient, risk management notified. Hematology oncology has evaluated the patient, awaiting bioethics committee meeting scheduled for next week. The patient continues on PPN for nutritional support. 12/11 Patient remains on ventilator via trach on no sedation unresponsive. Afebrile.On Protonix drip and PPN. 12/12 No acute events overnight. Afebrile. Hgb 6.8 this morning 2 units PRBC ordered . 12/13 Patient remains on ventilator via trach, s/p transfusion 2units PRBC yesterday Hgb 9.1 this morning. Afebrile. On Protonix drip. Objective Vital Signs Date Time Temp Pulse Resp B/P Pulse Ox O2 Delivery O2 Flow Rate FiO2 12/13/16 06:00 77 12/13/16 04:28 96 30 12/13/16 04:00 98.7 15 118/58 Intake and Output 12/12/16 12/12/16 12/13/16 08:00 16:00 00:00 Intake Total 738 ml 1794 ml 492 ml Output Total 600 ml 1125 ml 1250 ml Balance 138 ml 669 ml -758 ml Result Diagram: 12/13/16 0356 12/13/16 0356 Other Results Laboratory Tests Test 12/12/16 12/13/16 17:35 03:56 Hemoglobin 10.0 GM/DL 9.1 GM/DL Hematocrit 29.7 % 26.5 % White Blood Count 6.7 TH/MM3 Red Blood Count 2.94 MIL/MM3 Mean Corpuscular Volume 90.2 FL Mean Corpuscular Hemoglobin 31.1 PG Mean Corpuscular Hemoglobin 34.5 % Concent Red Cell Distribution Width 18.3 % Platelet Count 62 TH/MM3 Mean Platelet Volume 10.2 FL Neutrophils (%) (Auto) 69.0 % Lymphocytes (%) (Auto) 8.1 % Monocytes (%) (Auto) 9.5 % Eosinophils (%) (Auto) 12.1 % Basophils (%) (Auto) 1.3 % Neutrophils # (Auto) 4.6 TH/MM3 Lymphocytes # (Auto) 0.5 TH/MM3 Monocytes # (Auto) 0.6 TH/MM3 Eosinophils # (Auto) 0.8 TH/MM3 Basophils # (Auto) 0.1 TH/MM3 CBC Comment AUTO DIFF Differential Total Cells 100 Counted Neutrophils % (Manual) 62 % Band Neutrophils % 10 % Lymphocytes % 8 % Monocytes % 9 % Eosinophils % 9 % Neutrophils # (Manual) 5.0 TH/MM3 Metamyelocytes 1 % Myelocytes 1 % Nucleated Red Blood Cells 1 /100 WBC Differential Comment FINAL DIFF MANUAL Platelet Estimate LOW Platelet Morphology Comment NORMAL Polychromasia 2.4 % Ovalocytes 1+ Sodium Level 144 MEQ/L Potassium Level 3.4 MEQ/L Chloride Level 108 MEQ/L Carbon Dioxide Level 24.7 MEQ/L Anion Gap 11 MEQ/L Blood Urea Nitrogen 111 MG/DL Creatinine 2.60 MG/DL Estimat Glomerular Filtration 17 ML/MIN Rate Random Glucose 146 MG/DL Calcium Level 8.5 MG/DL Imaging Last Impressions Chest X-Ray 12/07/16 0600 Signed Impressions: Service Date/Time: November 02:30 - CONCLUSION: Diffuse bilateral patchy airspace disease and suspect small pleural effusions. Leonardo Yung MD Thoracentesis 12/01/16 0000 Signed Impressions: Service Date/Time: Thursday, December 01, 2016 18:56 - CONCLUSION: Uncomplicated CT-guided thoracentesis. Jeffery Alvarado MD Chest CT 12/01/16 0000 Signed Impressions: Service Date/Time: Thursday, December 01, 2016 13:09 - CONCLUSION: Bilateral pleural effusion, larger on the right than the left. Mack Cao MD FACR Abdomen/Pelvis CT 12/01/16 0000 Signed Impressions: Service Date/Time: Thursday, December 01, 2016 13:09 - CONCLUSION: 1. Right inguinal hernia containing only fluid. 2. Generalized anasarca. 3. Trace ascites. 4. Bilateral pleural effusions, larger on the right than the left. Mack Cao MD FACR Abdomen Ultrasound 11/27/16 0000 Signed Impressions: Service Date/Time: Sunday, November 27, 2016 08:35 - CONCLUSION: Stone in the neck of the gallbladder. Trace ascites and mild splenomegaly Jeffery Alvarado MD Gastrostomy Tube Placement 11/24/16 0000 Signed Impressions: Service Date/Time: Sunday, November 27, 2016 14:34 - CONCLUSION: Uncomplicated gastrostomy tube placement as above. Kirit Alcantar MD Head CT 11/08/16 1657 Signed Impressions: Service Date/Time: Tuesday, November 08, 2016 17:06 - CONCLUSION: Low density seen throughout the posterior circulation regions including the susan and midbrain, cerebellar hemispheres, occipital and posterior medial temporal lobes and right thalamus. This likely represents areas of infarction involving the posterior territory circulation. Jeffery Zhong MD Carotid Artery Ultrasound 11/08/16 0000 Signed Impressions: Service Date/Time: Tuesday, November 08, 2016 22:24 - CONCLUSION: Mild calcified plaque at the carotid bulbs. No evidence of hemodynamically significant carotid stenosis. José Luis Beltran MD Objective Remarks GENERAL: Patient is 86 yo on ventilator via trach. SKIN: Warm and dry. HEAD: Normocephalic. EYES: No scleral icterus. No injection or drainage. NECK: Supple, trachea midline. No JVD or lymphadenopathy. CARDIOVASCULAR: Regular rate and rhythm without murmurs, gallops, or rubs. RESPIRATORY: Breath sounds equal bilaterally. Few coarse BS. 8.0 trach in situ GASTROINTESTINAL: Abdomen soft, non-tender, nondistended. PEG in place MUSCULOSKELETAL: No cyanosis, peripheral 2+ edema bilateral upper extremities. Left heel gauze dressing Neuro: Positive corneal reflex. LIDYA. Negative cough. Negative gag. Extensor posturing in uppers. Downgoing Babinski. 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 She was last seen normal, nearly 24 hours, she was not a candidate for any interventional therapy. Unfortunately, given her age, and the extent of the stroke, her prognosis for any reasonable neurologic function is quite poor. Active GI bleed discussed with family, and patient's poor prognosis. Her family continues to express wishes for aggressive medical management. Bioethics has been consulted. Active problems: Massive posterior circulation ischemic CVA Hypoxic and hypercarbic respiratory failure Severe encephalopathy secondary to stroke Severe sepsis Healthcare associated pneumonia with pleural effusion Acute kidney injury UTI Anemia-acute and chronic Hyperglycemia of critical illness Thrombocytopenia Active GI bleed with AVM's Plan Neuro: Monitor neuro status per ICU protocol - Avoid sedatives. Neuro is following -11/08 CT brain: Low density seen throughout the posterior circulation regions including the susan and midbrain, cerebellar hemispheres, occipital and posterior medial temporal lobes and right thalamus. This likely represents areas of infarction involving the posterior territory circulation -GCS 3T, decerebrate posturing Resp: -Continue with vent support keep sat >92% Vent bundle, Head of bed 30, bronchodilators-scheduled -s/p trach 11/23, pulm toilet, trach care -SBT daily as lia -s/p CT guided right thoracentesis 11/27 with removal 700ml clear fluid. CVS: Monitor HR and BP keep MAP>65mmhg 2-D echo -EF 5560 %, mild aortic mitral and tricuspid regurgitation, No RWMA. 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 --IR intervention-patient is not a candidate. Continue with Protonix drip. GI follow up -s/p PEG tube placement by IR 11/27 , TF held (Jevity 1.5 with goal rate 45 ml/hr ) secondary to GI bleeding -s/p EGD 11/24 showed mild gastritis unable to place PEG tube endoscopically. -Monitor LFT's, US abdomen: Stone in neck of gall bladder, no hydronephrosis -12/01 CT abdomen/pelvis-generalized anasarca, trace ascites, bilateral pleural effusions right greater than left -Patient is on PPN 42/an hour for nutritional support : -Monitor renal function, I/O's, electrolytes replacement as needed. Cr: 2.60 today, UO: 2875ml in 24 hrs -on Bumex 2mg IV BID. Renal is following- Dr. Zuniga -On Free water 250ml Q6 monitor sodium level. ID: -Off abx per ID monitor for signs of infections ( Fever, WBC) -Urine culture 11/18/16 with Brionna albicans and E coli NOT S Levaquin, but S to zosyn -Infectious disease Dr. Wen, sputum cx 11/23: nl resp erica Heme Monitor CBC,s/p transfusion 2units PRBC. On Fe Sulfate 300mg BID Hematology is following-Dr. Alaniz. On Epogen M,W,F. Endo: --Medium dose sliding scale regimen Msk: --Red and sacral area, left heel wound --12/06 Wound care consulted --Specialty bed-Airflow Proph: Subcutaneous heparin on hold since 11/23 secondary to thrombocytopenia, anemia and GI bleed. SCDs for DVT prophylaxis Protonix for GI prophylaxis -Palliative care is following IV access: Peripheral IV's Palliative care is following. Level 3 Kacy Ayala MD Dec 13, 2016 08:17
[2016-12-13] MEDS: FERROUS SULFATE 300 MG /5ML UDC PO SCH ×2 (08:21→20:18)
[2016-12-13] MEDS: PANTOPRAZOLE INJ 80 MG in SODIUM CHLORIDE 0.9% INJ 100 ML IV SCH ×2 (08:21→17:48)
[2016-12-13] MEDS: ARTIFICIAL TEARS OPTH SOLN 15 ML BTL EACH EYE SCH ×3 (08:21→17:48)
[2016-12-13] MEDS: BUMETANIDE INJ 1 MG/4 ML VIAL IV PUSH SCH ×2 (08:21→17:48)
[2016-12-13] MEDS: CHLORHEXIDINE 0.12% (ORAL KIT) 15 ML CUP MT SCH ×2 (08:22→20:08)
[2016-12-13] MEDS: SODIUM CHLORIDE 0.9% FLUSH 5 ML FLUSH IV FLUSH SCH ×2 (08:22→20:08)
[2016-12-13] MEDS ORDERED: POTASSIUM CHLOR 20 MEQ PREMIX 100 ML IV ONE (10:00)
--- NOTE | 2016-12-13 10:32 | HHI.GIFU ---
Subjective Remarks Reconsulted for ongoing GI bleeding, requiring multiple transfusions. The patient has been NPO, on TPN/Protonix Gtt. She continues to have coffee ground gastric secretions and melena. Not a candidate for embolization/surgery. GI reconsulted for possible endoscopic control of bleeding. Spoke to son Wyatt Crawford and he would like to proceed with this. (Yoli Dickens) Objective Vitals I&O Vital Signs Date Time Temp Pulse Resp B/P Pulse Ox O2 Delivery O2 Flow Rate FiO2 12/13/16 10:00 80 12/13/16 08:00 30 12/13/16 08:00 98.4 78 21 115/55 96 12/13/16 08:00 78 12/13/16 06:00 77 12/13/16 04:28 96 30 12/13/16 04:00 30 12/13/16 04:00 82 12/13/16 04:00 98.7 82 15 118/58 95 12/13/16 02:00 88 12/13/16 01:15 95 30 12/13/16 00:00 87 12/13/16 00:00 99.4 87 15 114/56 98 12/13/16 00:00 30 12/12/16 23:00 99 30 12/12/16 22:00 100 12/12/16 20:00 99.4 101 7 142/65 97 12/12/16 20:00 30 12/12/16 20:00 101 12/12/16 19:18 97 30 12/12/16 18:00 97 12/12/16 17:18 100 30 12/12/16 16:00 30 12/12/16 16:00 98.4 98 12 156/67 100 12/12/16 16:00 98 12/12/16 14:00 99 12/12/16 12:00 98.1 99 12 146/70 100 12/12/16 12:00 99 12/12/16 12:00 30 12/12/16 11:32 100 30 I/O 12/12/16 12/12/16 12/12/16 12/13/16 12/13/16 12/13/16 07:00 15:00 23:00 07:00 15:00 23:00 Intake Total 738 ml 1794 ml 492 ml 593 ml Output Total 600 ml 1125 ml 1250 ml 700 ml Balance 138 ml 669 ml -758 ml -107 ml IV Total 63 ml 100 ml 80 ml 56 ml TPN/PPN 262 ml 427 ml 336 ml 287 ml Lipid 63 ml 102 ml 76 ml Albumin 100 ml Packed Cells 665 ml Other 250 ml 500 ml 250 ml Output Urine Total 600 ml 925 ml 1250 ml 700 ml Stool Total 200 ml # Bowel Movements 2 Laboratory Laboratory Tests Test 12/12/16 12/13/16 17:35 03:56 Hemoglobin 10.0 9.1 Hematocrit 29.7 26.5 White Blood Count 6.7 Red Blood Count 2.94 Mean Corpuscular Volume 90.2 Mean Corpuscular Hemoglobin 31.1 Mean Corpuscular Hemoglobin 34.5 Concent Red Cell Distribution Width 18.3 Platelet Count 62 Mean Platelet Volume 10.2 Neutrophils (%) (Auto) 69.0 Lymphocytes (%) (Auto) 8.1 Monocytes (%) (Auto) 9.5 Eosinophils (%) (Auto) 12.1 Basophils (%) (Auto) 1.3 Neutrophils # (Auto) 4.6 Lymphocytes # (Auto) 0.5 Monocytes # (Auto) 0.6 Eosinophils # (Auto) 0.8 Basophils # (Auto) 0.1 CBC Comment AUTO DIFF Differential Total Cells 100 Counted Neutrophils % (Manual) 62 Band Neutrophils % 10 Lymphocytes % 8 Monocytes % 9 Eosinophils % 9 Neutrophils # (Manual) 5.0 Metamyelocytes 1 Myelocytes 1 Nucleated Red Blood Cells 1 Differential Comment FINAL DIFF MANUAL Platelet Estimate LOW Platelet Morphology Comment NORMAL Polychromasia 2.4 Ovalocytes 1+ Sodium Level 144 Potassium Level 3.4 Chloride Level 108 Carbon Dioxide Level 24.7 Anion Gap 11 Blood Urea Nitrogen 111 Creatinine 2.60 Estimat Glomerular Filtration 17 Rate Random Glucose 146 Calcium Level 8.5 Physical Exam HEENT: Normocephalic; atraumatic; no jaundice. CHEST: OETT to trach. Course breath sounds. CARDIAC: RRR ABDOMEN: Soft, nondistended, no hepatosplenomegaly; bowel sounds are present in all four quadrants. Melena in rectal bag. PEG tube clamped- coffee ground gastric secretions EXTREMITIES: Generalized edema. SKIN: Generalized pallor REFLOW OPERATOR: Sedated on vent (Yoli Dickens) Assessment and Plan Plan ASSESSMENT: - GIB/anemia with drop in hgb. 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 She has received 17 units of PRBC and 2 unit of Plt. She continues to have coffee ground gastric secretions and melena. IR does not think patient is a candidate for embolization per Dr. Farnsworth. Protonix Gtt. TPN. GI reconsulted for possible endoscopic control of bleeding. Called and spoke to Wyatt Crawford at re: procedure, risks, benefits and he would like to proceed. - Large gastric ulcer, multiple duodenal avms. S/P Ablation. Not a candidate for embolization. On protonix gtt, tpn. Protonix gtt. Ongoing bleeding, will plan for egd with control of bleeding today. - Anemia secondary to acute blood loss. S/P 17 units PRBC, 2 PLT. HH 9..5. - Dysphagia, FEN. Pt currently in ICU being treated for massive posterior circulation ischemic CVA and she remains in the ICU being treated for hypoxic respiratory failure, severe encephalopathy secondary to stroke, severe sepsis, HCAP with pleural effusion, and acute kidney injury. She is S/P tracheostomy. Had PEG tube placement by IR on 11/27. On TPN. - Severe Encephalopathy/CVA. Per CCM - Resp. Failure, HCAP, Pleural effusion per CCM - BRIANA with electrolyte abnormalities. PLAN: - Plan for egd today for control of bleeding - Obtain consents - NPO - Cont. TPN - Cont. Protonix Gtt - Monitor HH - Transfuse as necessary - Unable to have embolization by IR - Poor prognosis - Pt seen and examined by Dr. Prince and myself and this note is written on her behalf (Yoli Dickens) Physician Comments seen, examined agree with above (Margoth Prince MD) Yoli Dickens Dec 13, 2016 10:32 Margoth Prince MD Dec 13, 2016 18:22
--- NOTE | 2016-12-13 11:06 | HHI.NPPN ---
Subjective History of Present Illness 86 year old with CVA, Resp failure s/p Trach/ PEG Additional Remarks Patient remains on the Vent, remain unresponsive. Objective Data Data 12/12/16 12/13/16 19:00 07:00 Intake Total 1794 ml 1085 ml Output Total 1125 ml 1950 ml Balance 669 ml -865 ml IV Total 100 ml 136 ml TPN/PPN 427 ml 623 ml Lipid 102 ml 76 ml Packed Cells 665 ml Other 500 ml 250 ml Output Urine Total 925 ml 1950 ml Stool Total 200 ml Vital Signs Date Time Temp Pulse Resp B/P Pulse Ox O2 Delivery O2 Flow Rate FiO2 12/13/16 10:22 30 12/13/16 10:22 98 30 12/13/16 10:00 80 12/13/16 08:00 30 12/13/16 08:00 98.4 78 21 115/55 96 12/13/16 08:00 78 12/13/16 06:00 77 12/13/16 04:28 96 30 12/13/16 04:00 30 12/13/16 04:00 82 12/13/16 04:00 98.7 82 15 118/58 95 12/13/16 02:00 88 12/13/16 01:15 95 30 12/13/16 00:00 87 12/13/16 00:00 99.4 87 15 114/56 98 12/13/16 00:00 30 12/12/16 23:00 99 30 12/12/16 22:00 100 12/12/16 20:00 99.4 101 7 142/65 97 12/12/16 20:00 30 12/12/16 20:00 101 12/12/16 19:18 97 30 12/12/16 18:00 97 12/12/16 17:18 100 30 12/12/16 16:00 30 12/12/16 16:00 98.4 98 12 156/67 100 12/12/16 16:00 98 12/12/16 14:00 99 12/12/16 12:00 98.1 99 12 146/70 100 12/12/16 12:00 99 12/12/16 12:00 30 12/12/16 11:32 100 30 -: 12/13/16 0356 12/13/16 0356 Physical Exam General Appearance: Pale Pulmonary Resp Exam: Decreased Bases Cardiology CV Exam: Regular Gastrointestinal/Abdomen GI Exam: Soft, Non-Tender Extremeties Extremities Exam: Moderate Edema Assessment/Plan Problem List: (1) Acute renal failure Plan: Patient has multiple issues and has malnutrition with poor albumin contributing to low oncotic pressure, ATN creatinine stable: 3.6 -> 3.5 -> 3.5 --> 3.4 --> 3.37 --> 3.05 --> 2.7 -->2.7 -- >. 2.6 -->2.6 On Bumex 2 mg IV q12 - continue for now. Good UOP with 2.02 L/ 24 hours K better post replacement may stop Albumin no meaningful recovery from CVA at this point Palliative care following. Apparently son would like to fly her to [facility] for stem cell treatment. Continue to follow goals of care. 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 Ongoing anemia, continue to monitor. getting PRBC on regular interval agree with Palliative care ethics meeting with son as futile care with hopeless situation and no chance of meaningful recovery. Creatinine remain same. Patient has BRIANA and not a candidate for usp HD. Can get PICC line. (2) Metabolic acidosis Plan: Stable, continue to monitor (3) Pneumonia Plan: On vent treated earlier with antibiotic (4) Urinary tract infection Plan: Escherichia coli she was treated (5) CVA (cerebral vascular accident) Plan: Massive stroke neurology following (6) Rhabdomyolysis Plan: This resolved (7) Hypernatremia Plan: Given 1L of DW over weekend improved Continue to monitor, repeat as necessary (8) Gastrointestinal hemorrhage Plan: Multiple PRBC given AVM poor prognosis Problem Qualifiers (1) Acute renal failure: Qualified Code: N17.9 - Acute renal failure, unspecified acute renal failure type (2) CVA (cerebral vascular accident): Qualified Code: I63.9 - Cerebrovascular accident (CVA), unspecified mechanism (3) Rhabdomyolysis: Qualified Code: M62.82 - Non-traumatic rhabdomyolysis Trae Rivera MD Dec 13, 2016 11:06
[2016-12-13] MEDS ORDERED: PROPOFOL 200 MG/20 ML AMP IV ONE (13:30)
--- NOTE | 2016-12-13 14:09 | GIPROC ---
[facility] [address] [facility]. [facility] [address], [address] EGD PROCEDURE REPORT EXAM DATE: 12/13/2016 PATIENT NAME: Maribel Crawford MR #: [id number] BIRTHDATE: 1930 ATTENDING: Margoth Prince MD ORDER #: [id number] FLYING I INSTRUCTOR: Vic Brito and Malcolm Araujo STATUS: inpatient INDICATIONS: The patient is a 86 yr old female here for an EGD due to gi bleeding PROCEDURE PERFORMED: EGD w/ control of bleeding MEDICATIONS: Per Anesthesia and None. TOPICAL ANESTHETIC: none CONSENT: The patient understands the risks and benefits of the procedure and understands that these risks include, but are not limited to: sedation, allergic reaction, infection, perforation and/or bleeding. Alternative means of evaluation and treatment include, among others: physical exam, x-rays, and/or surgical intervention. The patient elects to proceed with this endoscopic procedure. medical equipment was checked for proper function. Hand hygiene and appropriate measures for infection prevention was taken. After the risks, benefits and alternatives of the procedure were thoroughly explained, Informed consent was verified, confirmed and timeout was successfully executed by the treatment team. The patient was anesthetized with topical anesthesia and the Pentax EG-[id number] endoscope was introduced through the mouth and advanced to the second portion of the duodenum. Retroflexed views revealed a hiatal hernia The gastroscope was then slowly withdrawn and removed. 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 ADVERSE EVENTS: There were no complications. IMPRESSIONS: 1. 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 Retroflexed views revealed a hiatal hernia RECOMMENDATIONS: Peg to suction monitor hb/hct octrotide drip ppi monitor hb/hct PATIENT CONDITION: stable DISPOSITION: Inpatient REPEAT EXAM: Return as needed for EGD Margoht Prince MD eSigned: Margoth Prince MD 12/13/2016 2:08 PM cc: PATIENT NAME: Maribel Crawford MR#: [id number]
--- NOTE | 2016-12-13 14:11 | HHI.HCPN ---
Reason for visit a. To assist with evaluation and management of symptoms including: pain; dyspnea; encephalopathy b. To assist medical decision maker(s) with: better understanding of current medical conditions; weighing benefits/burdens of medical treatment options; making medical treatment decisions. . Subjective/Interval History 86 y/o female with devastating posterior circulation stroke, TRACH PLACED , PEG placed and thoracentesis by IR on 11/27/16. The patient's son Wyatt was found putting fish oil into the patient's PEG tube a couple days ago, and he was asked to not do that. She appears about the same. She has continued to drop her hemoglobin and has been receiving a couple units of blood each day recently, now up to a total of 17 units. Gastroenterology is going to endoscope her again. In addition, there is now some blood eating suctioned up from the trachea. Patient grimaces occasionally when disturbed Case discussed with nurse . Family/friend interactions Unable to reach son Wyatt by telephone . Advance Directives Living Will: Never completed Health Care Surrogate: Never completed Durable Power of Senior Geologist: Never completed Advance Directive Specifics Date completed: Advance directives were never completed . Health Care Surrogate(s): There is no known written designation of health care surrogate . Documented care wishes: There is no written documentation of health care goals/preferences. . Objective Vital Signs Date Time Temp Pulse Resp B/P Pulse Ox O2 Delivery O2 Flow Rate FiO2 12/13/16 10:22 30 12/13/16 10:22 98 30 12/13/16 10:00 80 12/13/16 10:00 80 12/13/16 08:00 30 12/13/16 08:00 98.4 78 21 115/55 96 12/13/16 08:00 78 12/13/16 06:00 77 12/13/16 04:28 96 30 12/13/16 04:00 30 12/13/16 04:00 82 12/13/16 04:00 98.7 82 15 118/58 95 12/13/16 02:00 88 12/13/16 01:15 95 30 12/13/16 00:00 87 12/13/16 00:00 99.4 87 15 114/56 98 12/13/16 00:00 30 12/12/16 23:00 99 30 12/12/16 22:00 100 12/12/16 20:00 99.4 101 7 142/65 97 12/12/16 20:00 30 12/12/16 20:00 101 12/12/16 19:18 97 30 12/12/16 18:00 97 12/12/16 17:18 100 30 12/12/16 16:00 30 12/12/16 16:00 98.4 98 12 156/67 100 12/12/16 16:00 98 Intake & Output 12/13/16 12/13/16 07:00 19:00 Intake Total 1085 ml Output Total 1950 ml Balance -865 ml IV Total 136 ml TPN/PPN 623 ml Lipid 76 ml Other 250 ml Output Urine Total 1950 ml Physical Exam CONSTITUTIONAL/GENERAL: This is an adequately nourished patient, trached, mechanically ventilated; in an MICU bed. Responsiveness limited to decerebrate posturing with noxious stimuli. EYES: Injected/swollen sclerae/conjunctivae, right worse than left. TUBES/LINES/DRAINS: trach, PEG tube, Tejeda catheter; peripheral IVs; dressing LE, podus boots. CARDIOVASCULAR: Regular rate and rhythm. RESPIRATORY/CHEST: Symmetric, unlabored respirations. Breath sounds equal bilaterally. Coarse breath sounds bilaterally. No wheezes, rales. GASTROINTESTINAL: Abdomen soft, non-tender, nondistended. No hepato-splenomegaly , or palpable masses. No guarding. GENITOURINARY: Without palpable bladder distension. Tejeda catheter in place. MUSCULOSKELETAL: Extremities with edema. No mottling. NEUROLOGICAL: Does not awaken to loud voice or exam. Unable to follow commands. Decerebrate posturing to noxious stimuli. PSYCHIATRIC: Unable to evaluate due to level of responsiveness. . Diagnostic Tests Laboratory Laboratory Tests Test 12/11/16 12/12/16 12/12/16 12/12/16 04:53 03:35 07:48 17:35 White Blood Count 4.3 TH/MM3 5.1 TH/MM3 (4.0-11.0) (4.0-11.0) Red Blood Count 2.33 MIL/MM3 2.25 MIL/MM3 (4.00-5.30) (4.00-5.30) Hemoglobin 7.1 GM/DL 6.8 GM/DL 10.0 GM/DL (11.6-15.3) (11.6-15.3) (11.6-15.3) Hematocrit 21.3 % 20.6 % 29.7 % (35.0-46.0) (35.0-46.0) (35.0-46.0) Mean Corpuscular Volume 91.4 FL 91.7 FL (80.0-100.0) (80.0-100.0) Mean Corpuscular Hemoglobin 30.5 PG 30.3 PG (27.0-34.0) (27.0-34.0) Mean Corpuscular Hemoglobin 33.4 % 33.1 % Concent (32.0-36.0) (32.0-36.0) Red Cell Distribution Width 23.1 % 22.8 % (11.6-17.2) (11.6-17.2) Platelet Count 51 TH/MM3 55 TH/MM3 (150-450) (150-450) Mean Platelet Volume 10.5 FL 10.6 FL (7.0-11.0) (7.0-11.0) Prothrombin Time 15.9 SEC (9.8-11.6) Prothromb Time International 1.4 RATIO Ratio Sodium Level 143 MEQ/L 143 MEQ/L (136-145) (136-145) Potassium Level 3.5 MEQ/L 3.7 MEQ/L (3.5-5.1) (3.5-5.1) Chloride Level 108 MEQ/L 107 MEQ/L (98-107) (98-107) Carbon Dioxide Level 25.2 MEQ/L 23.4 MEQ/L (21.0-32.0) (21.0-32.0) Anion Gap 10 MEQ/L (5-15) 13 MEQ/L (5-15) Blood Urea Nitrogen 108 MG/DL 106 MG/DL (7-18) (7-18) Creatinine 2.67 MG/DL 2.62 MG/DL (0.50-1.00) (0.50-1.00) Estimat Glomerular Filtration 17 ML/MIN (>89) 17 ML/MIN (>89) Rate Random Glucose 140 MG/DL 146 MG/DL (74-106) (74-106) Calcium Level 8.5 MG/DL 8.5 MG/DL (8.5-10.1) (8.5-10.1) Neutrophils (%) (Auto) 64.4 % (16.0-70.0) Lymphocytes (%) (Auto) 11.4 % (9.0-44.0) Monocytes (%) (Auto) 8.4 % (0.0-8.0) Eosinophils (%) (Auto) 15.2 % (0.0-4.0) Basophils (%) (Auto) 0.6 % (0.0-2.0) Neutrophils # (Auto) 3.3 TH/MM3 (1.8-7.7) Lymphocytes # (Auto) 0.6 TH/MM3 (1.0-4.8) Monocytes # (Auto) 0.4 TH/MM3 (0-0.9) Eosinophils # (Auto) 0.8 TH/MM3 (0-0.4) Basophils # (Auto) 0.0 TH/MM3 (0-0.2) CBC Comment AUTO DIFF Differential Total Cells 100 Counted Neutrophils % (Manual) 52 % (16-70) Band Neutrophils % 16 % (0-6) Lymphocytes % 7 % (9-44) Monocytes % 4 % (0-8) Eosinophils % 19 % (0-4) Neutrophils # (Manual) 3.6 TH/MM3 (1.8-7.7) Metamyelocytes 2 % (0-1) Differential Comment FINAL DIFF MANUAL Platelet Estimate LOW (NORMAL) Platelet Morphology Comment NORMAL (NORMAL) Polychromasia 2.1 % (0.0-1.9) Tear Drop Cells 1+ (NORMAL) Ovalocytes 1+ (NORMAL) Blood Type O POSITIVE Antibody Screen NEGATIVE Crossmatch Leukocyte-Reduced Red Blood Cells Blood Bank Comment Test 12/13/16 03:56 White Blood Count 6.7 TH/MM3 (4.0-11.0) Red Blood Count 2.94 MIL/MM3 (4.00-5.30) Hemoglobin 9.1 GM/DL (11.6-15.3) Hematocrit 26.5 % (35.0-46.0) Mean Corpuscular Volume 90.2 FL (80.0-100.0) Mean Corpuscular Hemoglobin 31.1 PG (27.0-34.0) Mean Corpuscular Hemoglobin 34.5 % Concent (32.0-36.0) Red Cell Distribution Width 18.3 % (11.6-17.2) Platelet Count 62 TH/MM3 (150-450) Mean Platelet Volume 10.2 FL (7.0-11.0) Neutrophils (%) (Auto) 69.0 % (16.0-70.0) Lymphocytes (%) (Auto) 8.1 % (9.0-44.0) Monocytes (%) (Auto) 9.5 % (0.0-8.0) Eosinophils (%) (Auto) 12.1 % (0.0-4.0) Basophils (%) (Auto) 1.3 % (0.0-2.0) Neutrophils # (Auto) 4.6 TH/MM3 (1.8-7.7) Lymphocytes # (Auto) 0.5 TH/MM3 (1.0-4.8) Monocytes # (Auto) 0.6 TH/MM3 (0-0.9) Eosinophils # (Auto) 0.8 TH/MM3 (0-0.4) Basophils # (Auto) 0.1 TH/MM3 (0-0.2) CBC Comment AUTO DIFF Differential Total Cells 100 Counted Neutrophils % (Manual) 62 % (16-70) Band Neutrophils % 10 % (0-6) Lymphocytes % 8 % (9-44) Monocytes % 9 % (0-8) Eosinophils % 9 % (0-4) Neutrophils # (Manual) 5.0 TH/MM3 (1.8-7.7) Metamyelocytes 1 % (0-1) Myelocytes 1 % (0-0) Nucleated Red Blood Cells 1 /100 WBC (0-0) Differential Comment FINAL DIFF MANUAL Platelet Estimate LOW (NORMAL) Platelet Morphology Comment NORMAL (NORMAL) Polychromasia 2.4 % (0.0-1.9) Ovalocytes 1+ (NORMAL) Sodium Level 144 MEQ/L (136-145) Potassium Level 3.4 MEQ/L (3.5-5.1) Chloride Level 108 MEQ/L (98-107) Carbon Dioxide Level 24.7 MEQ/L (21.0-32.0) Anion Gap 11 MEQ/L (5-15) Blood Urea Nitrogen 111 MG/DL (7-18) Creatinine 2.60 MG/DL (0.50-1.00) Estimat Glomerular Filtration 17 ML/MIN (>89) Rate Random Glucose 146 MG/DL (74-106) Calcium Level 8.5 MG/DL (8.5-10.1) Result Diagram: 12/13/16 0356 12/13/16 0356 Imaging Last Impressions Chest X-Ray 12/07/16 0600 Signed Impressions: Service Date/Time: November 02:30 - CONCLUSION: Diffuse bilateral patchy airspace disease and suspect small pleural effusions. Leonardo Yung MD Thoracentesis 12/01/16 0000 Signed Impressions: Service Date/Time: Thursday, December 01, 2016 18:56 - CONCLUSION: Uncomplicated CT-guided thoracentesis. Jeffery Alvarado MD Chest CT 12/01/16 0000 Signed Impressions: Service Date/Time: Thursday, December 01, 2016 13:09 - CONCLUSION: Bilateral pleural effusion, larger on the right than the left. Mack Cao MD FACR Abdomen/Pelvis CT 12/01/16 0000 Signed Impressions: Service Date/Time: Thursday, December 01, 2016 13:09 - CONCLUSION: 1. Right inguinal hernia containing only fluid. 2. Generalized anasarca. 3. Trace ascites. 4. Bilateral pleural effusions, larger on the right than the left. Mack Cao MD FACR Abdomen Ultrasound 11/27/16 0000 Signed Impressions: Service Date/Time: Sunday, November 27, 2016 08:35 - CONCLUSION: Stone in the neck of the gallbladder. Trace ascites and mild splenomegaly Jeffery Alvarado MD Gastrostomy Tube Placement 11/24/16 0000 Signed Impressions: Service Date/Time: Sunday, November 27, 2016 14:34 - CONCLUSION: Uncomplicated gastrostomy tube placement as above. Kirit Alcantar MD Head CT 11/08/16 1657 Signed Impressions: Service Date/Time: Tuesday, November 08, 2016 17:06 - CONCLUSION: Low density seen throughout the posterior circulation regions including the susan and midbrain, cerebellar hemispheres, occipital and posterior medial temporal lobes and right thalamus. This likely represents areas of infarction involving the posterior territory circulation. Jeffery Zhong MD Carotid Artery Ultrasound 11/08/16 0000 Signed Impressions: Service Date/Time: Tuesday, November 08, 2016 22:24 - CONCLUSION: Mild calcified plaque at the carotid bulbs. No evidence of hemodynamically significant carotid stenosis. José Luis Beltran MD Procedures * Intubation/mechanical ventilation * Trach 11/23/16 * PEG tube placement * EGD 12/02/16 * EGD 12/13/16 . . Assessment and Plan Disease Oriented Problem List: (1) CVA (cerebral vascular accident) Comment: Very large posterior circulation stroke. No signs of neurological recovery. Prognosis grim. . . (2) Rhabdomyolysis Comment: Resolved. (3) Dementia Comment: Family reports at least a 7 year history of dementia. . (4) Gastrointestinal hemorrhage Comment: EGD on 12/02/16 revealed a gastric ulcer and multiple duodenal AVMs. In spite of attempts to cauterize these via EGD, patient continues to bleed and pass melanotic stools. Multiple transfusions have been provided. . (5) Anemia (6) Malnutrition Comment: Presenting albumin level was 2.8 . (7) Urinary tract infection Comment: Cx of 11/08 --> E coli and Enterococcus; Cx 11/18 E. coli and Brionna . (8) Thrombocytopenia (9) Pneumonia Comment: Sputum cx of 11/12 growing Staph aureus. . Symptom Scale: (1) Pain 0-10 Scale: Unable to quantify Comment: Patient had no known prior pain syndromes. Current possible sources of pain include prolonged bedbound status; vascular access catheters; Tejeda catheter. . (2) Dyspnea 0-10 Scale: Unable to quantify Comment: Dyspnea currently controlled with mechanical ventilation. . (3) Encephalopathy 0-10 Scale: Unable to quantify Comment: Patient was minimally responsive on arrival. No evidence of neurologic recovery. Her only response now is decerebrate posturing with stimulation. Off all sedation. . Pertinent Non-Medical Issues Psychosocial: Normally lives with her sister. Her son lives by visits frequently. Spiritual: Patient is a Restoration. The patient's son, Wyatt, has consented to multiple blood transfusions now telling us that the patient was not "devout" in terms of her believes as a Restoration. Legal: No advance directives. Son would be the appropriate proxy health care decision-maker under the [place] statutes hierarchy. Ethical issues impacting care: Patient is incapacitated to make her own health care decisions and is not expected to regain such capacity. Patient's care is deemed to be futile per the vast majority of medical team members. There are concerns that ongoing aggressive care will only serve to prolong and uncomfortable dying process. . . Important Contacts Wyatt Crawford (son and healthcare proxy) [phone] . Prognosis This is an 86-year-old female who was suffered a fairly massive posterior circulation stroke. This is on top of at least a seven-year history of dementia with the patient was already requiring assistance with most of her ADLs. There is a high risk of during this hospitalization. Should she survive, she will not have meaningful interaction with her environment. In spite of bleak prognosis, the patient's son has insisted on ongoing aggressive care. The patient has managed to remain alive but there is been no evidence of neurologic recovery. She is unresponsive except for decerebrate posturing with stimulation. She now is actively GI bleeding from a combination of a gastric ulcer and multiple duodenal AVMs. She has received multiple transfusions. It does not appear we will be able to stop this bleeding. The patient would certainly be eligible for hospice services at such time that family believes the patient's goals would best be honored by transitioning to "comfort measures only." . . Code Status: Full Code Plan * FULL CODE: The patient's son changed his mind and asked that she be transitioned back to FULL CODE STATUS on 12/03/16 * DECISION-MAKING: The patient lacks capacity for decision-making, and she will not regain capacity. Her son, Wyatt Crawford, is the legal health care proxy. * GOALS: The patient is a Restoration. The son indicates now that she has not been devout and that is why he has agreed to multiple blood transfusions. Son has continued to ask for ongoing aggressive care and patient has now undergone both trach and PEG. * SYMPTOMS: It is difficult to know when she has pain or dyspnea, and we will continue to observe closely for signs of suffering. Certainly her bedbound status and recent procedures could be painful. No new med recommendations at this time. * Drs. Cartwright and Javad have requested a meeting of the bioethics committee to discuss this case. The patient's son was informed about this development and understood that we would like him to attend to explain to medical team members why he believes his mother would want ongoing aggressive care given the conversations he has had with the physicians. Wyatt seemed uninterested in attending and seemed to be avoiding but on 12/07/16 agreed to attend midday on 12/15/16. He has since called to say that day won't work and is asking for a meeting the middle of the following week. Unless Wyatt attends, I do not think the meeting will have much to offer. * Wyatt said on 12/08 that he planned on stopping all transfusions on 12/19 or . * Palliative care will continue to follow to assist with symptom management and to help clarify goals of medical treatment as the clinical course evolves. . . Time Spent Total Floor Time (mins): 35 Face to Face Time (mins): 12 >50% Counseling/Coord of Care: Yes (d/w RN) Attestation To help prompt me to consider important information that might be impacting today's encounter and assessment, information from prior notes written by myself or my colleagues may have been "brought forward" into today's note. My signature on this note, however, is an attestation that I personally performed the exam, history, and/or decision-making noted today, and, unless otherwise indicated, the interactions with patient, family, and staff as well as the review of records all occurred today. I also attest that the listed assessment and stated plan reflect my best clinical judgment today based on the combination of historical information, prior notes, and today's exam/ interactions. When time spent is documented, it refers only to time spent today by the signer, or if indicated, combined time spent today by collaborating physician/nurse practitioner. Bailey Garay MD Dec 13, 2016 14:11
[2016-12-13] MEDS ORDERED: OCTREOTIDE INJ 500 MCG in SODIUM CHLORID 0.9% 500 ML INJ 500 ML IV ONE (15:00)
[2016-12-13] MEDS: FAT EMULSION 20% INJ 250 ML (@10 mls/hr) IV SCH (20:03)
[2016-12-13] MEDS: CLINIMIX 4.25/5 (Cust.Renal Periph) 1000 mL- </= 42 mls/hr IV SCH ×8 (20:04)
[2016-12-14] VITALS (18 sets, daily range): BP systolic 102–134; BP diastolic 52–60; PULSE 65–81; RESP 15–18; TEMP 98.2–99; O2SAT 96–99
[2016-12-14 00:19] LABS: HEMATOCRIT 28.5 % (35.0-46.0)
[2016-12-14 00:21] LABS: REVIEW FLAG FINAL
[2016-12-14] MEDS: CHLORHEXIDINE GLUCONATE 2 % 1 PACK (2 CLOTHS) TOP SCH (04:00)
[2016-12-14] MEDS: PANTOPRAZOLE INJ 80 MG in SODIUM CHLORIDE 0.9% INJ 100 ML IV SCH ×2 (05:10→14:30)
[2016-12-14] MEDS: FREE WATER G-TUBE SCH ×4 (05:10→16:55)
[2016-12-14] MEDS: HIGH DOSE INSULIN NOVOLIN REGULAR SUPPLEMENTAL SCALE SQ SCH ×2 (05:11)
[2016-12-14 06:18] LABS: APTT (PATIENT) 40.1 SEC (24.3-30.1)
[2016-12-14 06:22] LABS: AUTOMATED NEUTROPHIL # 6.8 TH/MM3 (1.8-7.7); BASOPHIL % 0.6 % (0.0-2.0); EOSINOPHIL # 0.7 TH/MM3 (0-0.4); EOSINOPHIL % 8.7 % (0.0-4.0); HEMATOCRIT 28.3 % (35.0-46.0); LYMPH % 1.7 % (9.0-44.0); LYMPHOCYTE # 0.1 TH/MM3 (1.0-4.8); MEAN CELL VOLUME 91.2 FL (80.0-100.0); MEAN CORPUSCULAR HGB CONC 32.9 % (32.0-36.0); MONO % 2.4 % (0.0-8.0); NEUT % 86.6 % (16.0-70.0); PLATELET COUNT 60 TH/MM3 (150-450); RED BLOOD COUNT 3.11 MIL/MM3 (4.00-5.30); RED CELL DISTRIBUTION WIDTH 18.4 % (11.6-17.2); WHITE BLOOD COUNT 7.8 TH/MM3 (4.0-11.0)
[2016-12-14 06:26] LABS: BICARBONATE 24.5 MEQ/L (21.0-32.0); POTASSIUM 3.3 MEQ/L (3.5-5.1)
[2016-12-14 06:29] LABS: HEMO FLAGS AUTO DIFF
[2016-12-14 07:13] LABS: BANDS 20 % (0-6); BASOPHILS 1 % (0-2); CORRECTED NUCLEATED RBC 1 /100 WBC (0-0); EOSINOPHILS 11 % (0-4); NEUTROPHIL # MANUAL DIFF 6.7 TH/MM3 (1.8-7.7); POLYS (SEG NEUTROPHILS) 66 % (16-70); WBC DIFF SAMPLE 100
[2016-12-14 07:14] LABS: PLATELET ESTIMATE SMEAR LOW (NORMAL); PLATELET MORPHOLOGY NORMAL (NORMAL); POLYCHROMASIA 2.3 % (0.0-1.9); SCAN/DIFF FINAL DIFF MANUAL
[2016-12-14] MEDS ORDERED: POTASSIUM CHLOR 20 MEQ PREMIX 100 ML IV ONE (07:30)
[2016-12-14] MEDS ORDERED: GLUCAGON 1 MG/ML VIAL OTHER PRN (07:30)
[2016-12-14] MEDS ORDERED: DEXTROSE 50% IN WATER 50 ML VIAL(D50) IV PUSH PRN (07:30)
--- NOTE | 2016-12-14 07:30 | HHI.CCPN ---
Subjective Remarks/Hospital Course This is an 86yF with per report no other past medical history who presented to the ER after she was found unresponsive in her bed. According to ER reports, her family saw her normal last night when she had a fall, with unknown LOC. At that point, he helped her back to bed. However, this morning she did not wake up. On arrival to the ER, she was unresponsive only withdrawing to pain. she was intubated for airway protection and a poor GCS. CT head demonstrated massive posterior-circulation ischemic stroke. The patient is currently intubated and unresponsive and cannot provide any additional history. 11/09: No acute changes overnight. Palliative care team has consult with the family regarding goals of care. Currently the patient's sedation fentanyl infusion has been turned off without any response from patient. The patient notably does withdrawal to pain. 11/10: No change in neurological status. [id number]. The patient withdraws to pain 4 extremities. The patient currently on no sedation, fentanyl infusion discontinued yesterday. Tube feeds were initiated. The patient's urine culture grew back Escherichia coli, the patient was started on antibiotics. Extensive discussion with son regarding patient's neurological status, son Wyatt has had extensive discussion with palliative care.The son feels that yesterday when the patient was spoken to in [place] the patient squeezed his hand and desires aggressive treatment. The patient's neuro status is unchanged, totally unresponsive with occasional reflexive twitching of feet B/L. Follow-up with neurology Dr. Pack, guarding any further imaging studies. 11/13: No change in neuro exam. Palliative care following. Family wanting full aggressive care. Palliative care will address early trach PEG 11/14: No improvement in neuro status. Son has not made decisions regarding trach and PEG. Apparently he wants to wait longer to see any improvement 11/15: Remains unresponsive. Neuro exam with extensor posturing-unchanged. Son requesting aggressive care. Continues to have low-grade fever 11/16: Clinically no improvement. Tolerates CPAP. Unable to extubate as patient will not protect airway 11/17: Tolerating C Pap but no change in neuro exam. Hemoglobin noted to be 6.8 hemodynamically stable 11/18: Became tachycardic and hypotensive early a.m., placed on assist control. Otherwise neuro exam remains unchanged 11/19: Continues to spike fever Tmax 102, started on vancomycin and cefepime in addition to Levaquin yesterday. Currently only low-grade fever. Received 2 units of blood for hemoglobin of 5.3. CBC pending at this time. No improvement in neuro exam 11/20: White count is 18.3 today, MAXIMUM TEMPERATURE 103.1. Chest x-ray showing right sided infiltrate. Urine culture with gram-negative rods and Brionna albicans. ID consulted Diflucan added 11/21/16: Tmax 101.5. Bilateral lung infiltrates, R>L but slightly improved. No improvement in neuro exam. ID consulted and following. 11/22/16: No fever. CT chest- moderate to large R pleural effusion, bilateral lung infiltrates. ABX per ID. CXR today shows increasing bilateral infiltrates and effusion right more than left. Almost near complete infiltrates on the right lung [place]. Vaginally worsening creatinine today 1.45 indicating multiorgan failure 11/23/16: Hb 9.8 today after 2U PRBC yesterday. Plan for tracheostomy today. INR normal platelet count 116. Worsening creatinine today is 1.6. UO 550 ml in 24 hours. 1L NS bolus and 75 ml per hour maintenance NS. Started on Dopamine 3 mcg per min to maintain MAP>65 11/24 Patient is on ventilator via trach. Afebrile. On Dopamine 4 mics. 11/25 No acute events overnight. s/p EGD yesterday showed mild gastritis unable to place PEG tube endoscopically. Remains on Dopamine 4 mics. On no sedation unresponsive. 11/26 No acute events overnight. On CPAP with PS 20, PEEP: 5 and FIO2 40%. Afebrile. Off Dopamine. Afebrile. 11/27 Patient remains on ventilator via trach on no drips. Afebrile. For PEG tube placement by IR today. 11/28 Patient s/p PEG tube placement by IR yesterday, s/p Right thoracentesis with removal 700ml CXR showed better aeration of lungs, Hgb 6.7 this morning 2units PRBC ordered. Renal function worse with Cr: 3.40 from 2.85 . 11/29: Remains encephalopathic on mechanical ventilation via tracheostomy. 11/30: Remains encephalopathic on mechanical ventilation via tracheostomy. 12/01 Patient s/p transfusion 1unit PRBC last night for Hgb 5.8 in addition to 2L NS. Hgb 6.5 this morning. 12/02: Afebrile. The patient underwent CT-guided thoracentesis yesterday with approximately 600 cc removed. Chest x-ray pending this a.m.. Patient received packed red blood cell 2 units yesterday. Hemoglobin 7.4. Pending EGD today. 12/03:The patient underwent EGD yesterday with Dr. Farnsworth patient was noted to have a large active bleeding ulcer in the body of the stomach, multiple AVMs. Multiple ablations performed. This a.m. hemoglobin dropped to 6.1, platelet count 38. The patient was transfused 2 PRBC, and a unit of platelets. Patient still not relieved receiving any nutrition will begin PPN today. The patient continues to have copious amounts of melena with fecal incontinence apparatus in place. 12/04: The patient continues to have copious melena. PT INR drawn last evening INR was noted to be 13.5. The patient received KCentra, and current INR 1.3 the family requests aggressive measures to be continued. No further interventions from gastroenterology per . IR deemed the patient not a candidate for arteriography or endovascular treatment. 12/05: Patient's current medical status unchanged. Large tarry stools, acute blood loss anemia continues in conjunction with thrombocytopenia. During the night the nurse reported a malodorous scent was noted in free water flush container for instillation through G-tube. It was noted to be possibly fish oil , patient's son was in the room during that time. Container removed. The patient is noted to have a hemoglobin level of 5.8 today will receive 2 units of packed red blood cells and 1 unit of platelets today. 12/06: The patient continues to have copious melena. The patient received one 6 pack of platelets, and 2 units of blood yesterday. Tonight as reported by the nurse in the evening the son continue to utilize fish oil in the patient's free water, which was removed by the nurse. Ethics committee consult was initiated with Dr. Bauer yesterday, regarding assessing goals of care. 12/07: The patient's INR 1.3. Patient received 2 units of blood and one 6 pack of platelets yesterday. Awaiting ethics committee meeting with Dr. Bauer. The patient continues to require transfusions. 4/14: Patient was noted to have a drop in hemoglobin this a.m.. The patient is being transfused 2 units of PRBCs, with noted difficulty obtaining unit secondary to antibodies. Hematology will be consulted. Bioethics committee meeting planned to convene in one week, patient's son has agreed to attend. 12/09: Afebrile. No change in neuro status. Wound Care consult for left and blisters on back, orders provided. Hemoglobin stable post 2 units packed red blood cells yesterday. 12/10: The patient's hemoglobin 7.6 yesterday, hemoglobin pending for today. Overnight RN reported family member son continually putting some chemicals in the gastric tube of the patient, risk management notified. Hematology oncology has evaluated the patient, awaiting bioethics committee meeting scheduled for next week. The patient continues on PPN for nutritional support. 12/11 Patient remains on ventilator via trach on no sedation unresponsive. Afebrile.On Protonix drip and PPN. 12/12 No acute events overnight. Afebrile. Hgb 6.8 this morning 2 units PRBC ordered . 12/13 Patient remains on ventilator via trach, s/p transfusion 2units PRBC yesterday Hgb 9.1 this morning. Afebrile. On Protonix drip. 12/14 Patient s/p EGD yesterday which showed esophageal varices and hiatal hernia. On Ventilator via trach. H/H stable. On Protonix drip. Objective Vital Signs Date Time Temp Pulse Resp B/P Pulse Ox O2 Delivery O2 Flow Rate FiO2 12/14/16 06:00 68 12/14/16 04:08 98 30 12/14/16 04:00 98.8 15 106/52 Intake and Output 12/13/16 12/13/16 12/14/16 08:00 16:00 00:00 Intake Total 593 ml 1150 ml 587 ml Output Total 700 ml 1850 ml 1400 ml Balance -107 ml -700 ml -813 ml Result Diagram: 12/14/16 0456 12/14/16 0456 Other Results Laboratory Tests Test 12/13/16 12/14/16 23:32 04:56 Hemoglobin 9.5 GM/DL 9.3 GM/DL Hematocrit 28.5 % 28.3 % White Blood Count 7.8 TH/MM3 Red Blood Count 3.11 MIL/MM3 Mean Corpuscular Volume 91.2 FL Mean Corpuscular Hemoglobin 30.0 PG Mean Corpuscular Hemoglobin 32.9 % Concent Red Cell Distribution Width 18.4 % Platelet Count 60 TH/MM3 Mean Platelet Volume 10.7 FL Neutrophils (%) (Auto) 86.6 % Lymphocytes (%) (Auto) 1.7 % Monocytes (%) (Auto) 2.4 % Eosinophils (%) (Auto) 8.7 % Basophils (%) (Auto) 0.6 % Neutrophils # (Auto) 6.8 TH/MM3 Lymphocytes # (Auto) 0.1 TH/MM3 Monocytes # (Auto) 0.2 TH/MM3 Eosinophils # (Auto) 0.7 TH/MM3 Basophils # (Auto) 0.0 TH/MM3 CBC Comment AUTO DIFF Differential Total Cells 100 Counted Neutrophils % (Manual) 66 % Band Neutrophils % 20 % Lymphocytes % 1 % Monocytes % 1 % Eosinophils % 11 % Basophils % 1 % Neutrophils # (Manual) 6.7 TH/MM3 Nucleated Red Blood Cells 1 /100 WBC Differential Comment FINAL DIFF MANUAL Platelet Estimate LOW Platelet Morphology Comment NORMAL Polychromasia 2.3 % Basophilic Stippling FAINT Activated Partial 40.1 SEC Thromboplast Time Sodium Level 142 MEQ/L Potassium Level 3.3 MEQ/L Chloride Level 106 MEQ/L Carbon Dioxide Level 24.5 MEQ/L Anion Gap 12 MEQ/L Blood Urea Nitrogen 105 MG/DL Creatinine 2.61 MG/DL Estimat Glomerular Filtration 17 ML/MIN Rate Random Glucose 142 MG/DL Calcium Level 8.8 MG/DL Imaging Last Impressions Chest X-Ray 12/07/16 0600 Signed Impressions: Service Date/Time: November 02:30 - CONCLUSION: Diffuse bilateral patchy airspace disease and suspect small pleural effusions. Leonardo Yung MD Thoracentesis 12/01/16 0000 Signed Impressions: Service Date/Time: Thursday, December 01, 2016 18:56 - CONCLUSION: Uncomplicated CT-guided thoracentesis. Jeffery Alvarado MD Chest CT 12/01/16 0000 Signed Impressions: Service Date/Time: Thursday, December 01, 2016 13:09 - CONCLUSION: Bilateral pleural effusion, larger on the right than the left. Mack Cao MD FACR Abdomen/Pelvis CT 12/01/16 0000 Signed Impressions: Service Date/Time: Thursday, December 01, 2016 13:09 - CONCLUSION: 1. Right inguinal hernia containing only fluid. 2. Generalized anasarca. 3. Trace ascites. 4. Bilateral pleural effusions, larger on the right than the left. Mack Cao MD FACR Abdomen Ultrasound 11/27/16 0000 Signed Impressions: Service Date/Time: Sunday, November 27, 2016 08:35 - CONCLUSION: Stone in the neck of the gallbladder. Trace ascites and mild splenomegaly Jeffery Alvarado MD Gastrostomy Tube Placement 11/24/16 0000 Signed Impressions: Service Date/Time: Sunday, November 27, 2016 14:34 - CONCLUSION: Uncomplicated gastrostomy tube placement as above. Kirit Alcantar MD Head CT 11/08/16 1657 Signed Impressions: Service Date/Time: Tuesday, November 08, 2016 17:06 - CONCLUSION: Low density seen throughout the posterior circulation regions including the susan and midbrain, cerebellar hemispheres, occipital and posterior medial temporal lobes and right thalamus. This likely represents areas of infarction involving the posterior territory circulation. Jeffery Zhong MD Carotid Artery Ultrasound 11/08/16 0000 Signed Impressions: Service Date/Time: Tuesday, November 08, 2016 22:24 - CONCLUSION: Mild calcified plaque at the carotid bulbs. No evidence of hemodynamically significant carotid stenosis. José Luis Beltran MD Objective Remarks GENERAL: Patient is 86 yo on ventilator via trach. SKIN: Warm and dry. HEAD: Normocephalic. EYES: No scleral icterus. No injection or drainage. NECK: Supple, trachea midline. No JVD or lymphadenopathy. CARDIOVASCULAR: Regular rate and rhythm without murmurs, gallops, or rubs. RESPIRATORY: Breath sounds equal bilaterally. Few coarse BS. 8.0 trach in situ GASTROINTESTINAL: Abdomen soft, non-tender, nondistended. PEG in place MUSCULOSKELETAL: No cyanosis, peripheral 2+ edema bilateral upper extremities. Left heel gauze dressing Neuro: Positive corneal reflex. LIDYA. Negative cough. Negative gag. Extensor posturing in uppers. Downgoing Babinski. 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 She was last seen normal, nearly 24 hours, she was not a candidate for any interventional therapy. Unfortunately, given her age, and the extent of the stroke, her prognosis for any reasonable neurologic function is quite poor. Active GI bleed discussed with family, and patient's poor prognosis. Her family continues to express wishes for aggressive medical management. Bioethics has been consulted. Active problems: Massive posterior circulation ischemic CVA Hypoxic and hypercarbic respiratory failure Severe encephalopathy secondary to stroke Severe sepsis Healthcare associated pneumonia with pleural effusion Acute kidney injury UTI Anemia-acute and chronic Hyperglycemia of critical illness Thrombocytopenia Active GI bleed with AVM's Plan Neuro: Monitor neuro status per ICU protocol - Avoid sedatives. Neuro is following -11/08 CT brain: Low density seen throughout the posterior circulation regions including the susan and midbrain, cerebellar hemispheres, occipital and posterior medial temporal lobes and right thalamus. This likely represents areas of infarction involving the posterior territory circulation -GCS 3T, decerebrate posturing Resp: -Continue with vent support keep sat >92% Vent bundle, Head of bed 30, bronchodilators-scheduled -s/p trach 11/23, pulm toilet, trach care -SBT daily as lia -s/p CT guided right thoracentesis 11/27 with removal 700ml clear fluid. CVS: Monitor HR and BP keep MAP>65mmhg 2-D echo -EF 5560 %, mild aortic mitral and tricuspid regurgitation, No RWMA. 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 --IR intervention-patient is not a candidate. Continue with Protonix drip. -s/p PEG tube placement by IR 11/27 , TF held (Jevity 1.5 with goal rate 45 ml/hr ) secondary to GI bleeding -s/p EGD 11/24 showed mild gastritis unable to place PEG tube endoscopically. -Monitor LFT's, US abdomen: Stone in neck of gall bladder, no hydronephrosis -12/01 CT abdomen/pelvis-generalized anasarca, trace ascites, bilateral pleural effusions right greater than left -Patient is on PPN 42/an hour for nutritional support : -Monitor renal function, I/O's, electrolytes replacement as needed. Cr: 2.61 today, UO: 3125 ml in 24 hrs -on Bumex 2mg IV BID. Renal is following- Dr. Zuniga -On Free water 250ml Q6 monitor sodium level. ID: -Off abx per ID monitor for signs of infections ( Fever, WBC) -Urine culture 11/18/16 with Brionna albicans and E coli NOT S Levaquin, but S to zosyn -Infectious disease Dr. Wen, sputum cx 11/23: nl resp erica Heme Monitor CBC,s/p transfusion 2units PRBC. On Fe Sulfate 300mg BID Hematology is following-Dr. Alaniz. On Epogen M,W,F. Endo: --SSI ( low scale) for glycemic control Msk: --Red and sacral area, left heel wound --12/06 Wound care consulted --Specialty bed-Airflow Proph: Subcutaneous heparin on hold since 11/23 secondary to thrombocytopenia, anemia and GI bleed. SCDs for DVT prophylaxis Protonix for GI prophylaxis -Check RUE US. -Palliative care is following IV access: Peripheral IV's Palliative care is following. Level 3 Kacy Ayala MD Dec 14, 2016 07:30
[2016-12-14] MEDS: CHLORHEXIDINE 0.12% (ORAL KIT) 15 ML CUP MT SCH ×2 (08:00→20:40)
[2016-12-14] MEDS: INSULIN NovoLIN REGULAR SUPPLEMENTAL SCALE SQ SCH ×3 (08:00→20:48)
[2016-12-14] MEDS: FERROUS SULFATE 300 MG /5ML UDC PO SCH ×2 (09:00→20:37)
[2016-12-14] MEDS: SODIUM CHLORIDE 0.9% FLUSH 5 ML FLUSH IV FLUSH SCH ×2 (09:00→20:38)
[2016-12-14] MEDS: BUMETANIDE INJ 1 MG/4 ML VIAL IV PUSH SCH ×2 (09:00→17:45)
[2016-12-14] MEDS: ARTIFICIAL TEARS OPTH SOLN 15 ML BTL EACH EYE SCH ×3 (09:00→16:55)
--- NOTE | 2016-12-14 13:54 | HHI.HCPN ---
Reason for visit a. To assist with evaluation and management of symptoms including: pain; dyspnea; encephalopathy b. To assist medical decision maker(s) with: better understanding of current medical conditions; weighing benefits/burdens of medical treatment options; making medical treatment decisions. . Subjective/Interval History The patient is seen in [place] [facility]. 86 y/o female with devastating posterior circulation stroke, TRACH PLACED , PEG placed and thoracentesis by IR on 11/27/16. The patient's son Wyatt was found putting fish oil into the patient's PEG tube a few days ago, and he was asked to not do that. She appears about the same today. She has continued to drop her hemoglobin, but today it is 9.3 she remains afebrile.. Gastroenterology endoscoped her again, and found some esophageal varices that were clipped. Patient grimaces occasionally when disturbed, but it is difficult to tell if she is having pain. She does not appear dyspneic, as she remains mechanically ventilated. Case discussed with nurse . Family/friend interactions I again tried to telephone her son Wyatt twice, with no answer and no voicemail. . Advance Directives Living Will: Never completed Health Care Surrogate: Never completed Durable Power of Visual Inspector: Never completed Advance Directive Specifics Date completed: Advance directives were never completed . Health Care Surrogate(s): There is no known written designation of health care surrogate . Documented care wishes: There is no written documentation of health care goals/preferences. . Objective Vital Signs Date Time Temp Pulse Resp B/P Pulse Ox O2 Delivery O2 Flow Rate FiO2 12/14/16 12:00 30 12/14/16 12:00 99.0 73 15 134/60 97 12/14/16 12:00 71 12/14/16 11:01 96 30 12/14/16 10:00 81 12/14/16 08:00 30 12/14/16 08:00 98.8 65 15 102/52 97 12/14/16 08:00 81 12/14/16 07:31 98 30 12/14/16 06:00 68 12/14/16 04:08 98 30 12/14/16 04:00 30 12/14/16 04:00 75 12/14/16 04:00 98.8 75 15 106/52 97 12/14/16 02:00 74 12/14/16 00:35 97 30 12/14/16 00:00 30 12/14/16 00:00 77 12/14/16 00:00 98.6 77 15 112/53 97 12/13/16 22:00 80 12/13/16 21:13 93 30 12/13/16 20:00 81 12/13/16 20:00 30 12/13/16 20:00 98.7 81 15 123/59 94 12/13/16 18:00 80 12/13/16 17:36 99 30 12/13/16 16:00 81 12/13/16 16:00 98.7 81 16 131/62 98 12/13/16 16:00 30 12/13/16 14:00 89 Intake & Output 12/14/16 12/14/16 07:00 19:00 Intake Total 1491 ml Output Total 2025 ml Balance -534 ml IV Total 397 ml TPN/PPN 682 ml Lipid 162 ml Other 250 ml Output Urine Total 1775 ml Stool Total 250 ml Physical Exam CONSTITUTIONAL/GENERAL: This is an adequately nourished patient, trached, mechanically ventilated; in an MICU bed. Responsiveness limited to decerebrate posturing with noxious stimuli. EYES: Injected/swollen sclerae/conjunctivae, right worse than left. TUBES/LINES/DRAINS: trach, PEG tube, Tejeda catheter; peripheral IVs; dressing LE, podus boots. CARDIOVASCULAR: Regular rate and rhythm. RESPIRATORY/CHEST: Symmetric, unlabored respirations. Breath sounds equal bilaterally. Coarse breath sounds bilaterally. No wheezes, rales. GASTROINTESTINAL: Abdomen soft, non-tender, nondistended. No hepato-splenomegaly , or palpable masses. No guarding. GENITOURINARY: Without palpable bladder distension. Tejeda catheter in place. MUSCULOSKELETAL: Extremities with edema. No mottling. NEUROLOGICAL: Does not awaken to loud voice or exam. Unable to follow commands. Decerebrate posturing to noxious stimuli. PSYCHIATRIC: Unable to evaluate due to level of responsiveness. . Diagnostic Tests Laboratory Laboratory Tests Test 12/12/16 12/12/16 12/12/16 12/13/16 03:35 07:48 17:35 03:56 White Blood Count 5.1 TH/MM3 6.7 TH/MM3 (4.0-11.0) (4.0-11.0) Red Blood Count 2.25 MIL/MM3 2.94 MIL/MM3 (4.00-5.30) (4.00-5.30) Hemoglobin 6.8 GM/DL 10.0 GM/DL 9.1 GM/DL (11.6-15.3) (11.6-15.3) (11.6-15.3) Hematocrit 20.6 % 29.7 % 26.5 % (35.0-46.0) (35.0-46.0) (35.0-46.0) Mean Corpuscular Volume 91.7 FL 90.2 FL (80.0-100.0) (80.0-100.0) Mean Corpuscular Hemoglobin 30.3 PG 31.1 PG (27.0-34.0) (27.0-34.0) Mean Corpuscular Hemoglobin 33.1 % 34.5 % Concent (32.0-36.0) (32.0-36.0) Red Cell Distribution Width 22.8 % 18.3 % (11.6-17.2) (11.6-17.2) Platelet Count 55 TH/MM3 62 TH/MM3 (150-450) (150-450) Mean Platelet Volume 10.6 FL 10.2 FL (7.0-11.0) (7.0-11.0) Neutrophils (%) (Auto) 64.4 % 69.0 % (16.0-70.0) (16.0-70.0) Lymphocytes (%) (Auto) 11.4 % 8.1 % (9.0-44.0) (9.0-44.0) Monocytes (%) (Auto) 8.4 % (0.0-8.0) 9.5 % (0.0-8.0) Eosinophils (%) (Auto) 15.2 % 12.1 % (0.0-4.0) (0.0-4.0) Basophils (%) (Auto) 0.6 % (0.0-2.0) 1.3 % (0.0-2.0) Neutrophils # (Auto) 3.3 TH/MM3 4.6 TH/MM3 (1.8-7.7) (1.8-7.7) Lymphocytes # (Auto) 0.6 TH/MM3 0.5 TH/MM3 (1.0-4.8) (1.0-4.8) Monocytes # (Auto) 0.4 TH/MM3 0.6 TH/MM3 (0-0.9) (0-0.9) Eosinophils # (Auto) 0.8 TH/MM3 0.8 TH/MM3 (0-0.4) (0-0.4) Basophils # (Auto) 0.0 TH/MM3 0.1 TH/MM3 (0-0.2) (0-0.2) CBC Comment AUTO DIFF AUTO DIFF Differential Total Cells 100 100 Counted Neutrophils % (Manual) 52 % (16-70) 62 % (16-70) Band Neutrophils % 16 % (0-6) 10 % (0-6) Lymphocytes % 7 % (9-44) 8 % (9-44) Monocytes % 4 % (0-8) 9 % (0-8) Eosinophils % 19 % (0-4) 9 % (0-4) Neutrophils # (Manual) 3.6 TH/MM3 5.0 TH/MM3 (1.8-7.7) (1.8-7.7) Metamyelocytes 2 % (0-1) 1 % (0-1) Differential Comment FINAL DIFF FINAL DIFF MANUAL MANUAL Platelet Estimate LOW (NORMAL) LOW (NORMAL) Platelet Morphology Comment NORMAL NORMAL (NORMAL) (NORMAL) Polychromasia 2.1 % (0.0-1.9) 2.4 % (0.0-1.9) Tear Drop Cells 1+ (NORMAL) Ovalocytes 1+ (NORMAL) 1+ (NORMAL) Sodium Level 143 MEQ/L 144 MEQ/L (136-145) (136-145) Potassium Level 3.7 MEQ/L 3.4 MEQ/L (3.5-5.1) (3.5-5.1) Chloride Level 107 MEQ/L 108 MEQ/L (98-107) (98-107) Carbon Dioxide Level 23.4 MEQ/L 24.7 MEQ/L (21.0-32.0) (21.0-32.0) Anion Gap 13 MEQ/L (5-15) 11 MEQ/L (5-15) Blood Urea Nitrogen 106 MG/DL 111 MG/DL (7-18) (7-18) Creatinine 2.62 MG/DL 2.60 MG/DL (0.50-1.00) (0.50-1.00) Estimat Glomerular Filtration 17 ML/MIN (>89) 17 ML/MIN (>89) Rate Random Glucose 146 MG/DL 146 MG/DL (74-106) (74-106) Calcium Level 8.5 MG/DL 8.5 MG/DL (8.5-10.1) (8.5-10.1) Blood Type O POSITIVE Antibody Screen NEGATIVE Crossmatch Leukocyte-Reduced Red Blood Cells Blood Bank Comment Myelocytes 1 % (0-0) Nucleated Red Blood Cells 1 /100 WBC (0-0) Test 12/13/16 12/14/16 23:32 04:56 Hemoglobin 9.5 GM/DL 9.3 GM/DL (11.6-15.3) (11.6-15.3) Hematocrit 28.5 % 28.3 % (35.0-46.0) (35.0-46.0) White Blood Count 7.8 TH/MM3 (4.0-11.0) Red Blood Count 3.11 MIL/MM3 (4.00-5.30) Mean Corpuscular Volume 91.2 FL (80.0-100.0) Mean Corpuscular Hemoglobin 30.0 PG (27.0-34.0) Mean Corpuscular Hemoglobin 32.9 % Concent (32.0-36.0) Red Cell Distribution Width 18.4 % (11.6-17.2) Platelet Count 60 TH/MM3 (150-450) Mean Platelet Volume 10.7 FL (7.0-11.0) Neutrophils (%) (Auto) 86.6 % (16.0-70.0) Lymphocytes (%) (Auto) 1.7 % (9.0-44.0) Monocytes (%) (Auto) 2.4 % (0.0-8.0) Eosinophils (%) (Auto) 8.7 % (0.0-4.0) Basophils (%) (Auto) 0.6 % (0.0-2.0) Neutrophils # (Auto) 6.8 TH/MM3 (1.8-7.7) Lymphocytes # (Auto) 0.1 TH/MM3 (1.0-4.8) Monocytes # (Auto) 0.2 TH/MM3 (0-0.9) Eosinophils # (Auto) 0.7 TH/MM3 (0-0.4) Basophils # (Auto) 0.0 TH/MM3 (0-0.2) CBC Comment AUTO DIFF Differential Total Cells 100 Counted Neutrophils % (Manual) 66 % (16-70) Band Neutrophils % 20 % (0-6) Lymphocytes % 1 % (9-44) Monocytes % 1 % (0-8) Eosinophils % 11 % (0-4) Basophils % 1 % (0-2) Neutrophils # (Manual) 6.7 TH/MM3 (1.8-7.7) Nucleated Red Blood Cells 1 /100 WBC (0-0) Differential Comment FINAL DIFF MANUAL Platelet Estimate LOW (NORMAL) Platelet Morphology Comment NORMAL (NORMAL) Polychromasia 2.3 % (0.0-1.9) Basophilic Stippling FAINT (NORMAL) Activated Partial 40.1 SEC Thromboplast Time (24.3-30.1) Sodium Level 142 MEQ/L (136-145) Potassium Level 3.3 MEQ/L (3.5-5.1) Chloride Level 106 MEQ/L (98-107) Carbon Dioxide Level 24.5 MEQ/L (21.0-32.0) Anion Gap 12 MEQ/L (5-15) Blood Urea Nitrogen 105 MG/DL (7-18) Creatinine 2.61 MG/DL (0.50-1.00) Estimat Glomerular Filtration 17 ML/MIN (>89) Rate Random Glucose 142 MG/DL (74-106) Calcium Level 8.8 MG/DL (8.5-10.1) Result Diagram: 12/14/16 0456 12/14/16 0456 Procedures * Intubation/mechanical ventilation * Trach 11/23/16 * PEG tube placement * EGD 12/02/16 * EGD 12/13/16, with clipping of varices . . Assessment and Plan Disease Oriented Problem List: (1) CVA (cerebral vascular accident) Comment: Very large posterior circulation stroke. No signs of neurological recovery. Prognosis grim. . . (2) Rhabdomyolysis Comment: Resolved. (3) Dementia Comment: Family reports at least a 7 year history of dementia. . (4) Gastrointestinal hemorrhage Comment: EGD on 12/02/16 revealed a gastric ulcer and multiple duodenal AVMs. In spite of attempts to cauterize these via EGD, patient continues to bleed and pass melanotic stools. Multiple transfusions have been provided. . (5) Anemia (6) Malnutrition Comment: Presenting albumin level was 2.8 . (7) Urinary tract infection Comment: Cx of 11/08 --> E coli and Enterococcus; Cx 11/18 E. coli and Brionna . (8) Thrombocytopenia (9) Pneumonia Comment: Sputum cx of 11/12 growing Staph aureus. . (10) GI bleeding, varices Comment: Varices clipped 12/13/16 Symptom Scale: (1) Pain 0-10 Scale: Unable to quantify Comment: Patient had no known prior pain syndromes. Current possible sources of pain include prolonged bedbound status; vascular access catheters; Tejeda catheter. . (2) Dyspnea 0-10 Scale: Unable to quantify Comment: Dyspnea currently controlled with mechanical ventilation. . (3) Encephalopathy 0-10 Scale: Unable to quantify Comment: Patient was minimally responsive on arrival. No evidence of neurologic recovery. Her only response now is decerebrate posturing with stimulation. Off all sedation. . Pertinent Non-Medical Issues Psychosocial: Normally lives with her sister. Her son lives by visits frequently. Spiritual: Patient is a [employer]. The patient's son, Wyatt, has consented to multiple blood transfusions now telling us that the patient was not "devout" in terms of her believes as a [employer]. Legal: No advance directives. Son would be the appropriate proxy health care decision-maker under the [place] statutes hierarchy. Ethical issues impacting care: Patient is incapacitated to make her own health care decisions and is not expected to regain such capacity. Patient's care is deemed to be futile per the vast majority of medical team members. There are concerns that ongoing aggressive care will only serve to prolong and uncomfortable dying process. . . Important Contacts Wyatt Crawford (son and healthcare proxy) [phone] . Prognosis This is an 86-year-old female who was suffered a fairly massive posterior circulation stroke. This is on top of at least a seven-year history of dementia with the patient was already requiring assistance with most of her ADLs. There is a high risk of during this hospitalization. Should she survive, she will not have meaningful interaction with her environment. In spite of bleak prognosis, the patient's son has insisted on ongoing aggressive care. The patient has managed to remain alive but there is been no evidence of neurologic recovery. She is unresponsive except for decerebrate posturing with stimulation. She now is actively GI bleeding from a combination of a gastric ulcer and multiple duodenal AVMs. She has received multiple transfusions. It does not appear we will be able to stop this bleeding. The patient would certainly be eligible for hospice services at such time that family believes the patient's goals would best be honored by transitioning to "comfort measures only." . . Code Status: Full Code Plan * FULL CODE: The patient's son changed his mind and asked that she be transitioned back to FULL CODE STATUS on 12/03/16 * DECISION-MAKING: The patient lacks capacity for decision-making, and she will not regain capacity. Her son, Wyatt Crawford, is the legal health care proxy. * GOALS: The patient is a [employer]. The son indicates now that she has not been devout and that is why he has agreed to multiple blood transfusions. Son has continued to ask for ongoing aggressive care and patient has now undergone both trach and PEG. * SYMPTOMS: It is difficult to know when she has pain or dyspnea, and we will continue to observe closely for signs of suffering. Certainly her bedbound status and recent procedures could be painful. No new med recommendations at this time. * Drs. Cartwright and Javad have requested a meeting of the bioethics committee to discuss this case. The patient's son was informed about this development and understood that we would like him to attend to explain to medical team members why he believes his mother would want ongoing aggressive care given the conversations he has had with the physicians. Wyatt seemed uninterested in attending and seemed to be avoiding but on 12/07/16 agreed to attend midday on 12/15/16. He has since called to say that day won't work and is asking for a meeting the middle of next week. Unless Wyatt attends, the meeting will likely not have much to offer. * Wyatt said on 12/08 that he planned on stopping all transfusions on 12/19 or . We continue to try to get a hold of him to reexplore his goals. * Palliative care will continue to follow to assist with symptom management and to help clarify goals of medical treatment as the clinical course evolves. . . Time Spent Total Floor Time (mins): 26 Face to Face Time (mins): 8 >50% Counseling/Coord of Care: Yes (d/w RN) Attestation To help prompt me to consider important information that might be impacting today's encounter and assessment, information from prior notes written by myself or my colleagues may have been "brought forward" into today's note. My signature on this note, however, is an attestation that I personally performed the exam, history, and/or decision-making noted today, and, unless otherwise indicated, the interactions with patient, family, and staff as well as the review of records all occurred today. I also attest that the listed assessment and stated plan reflect my best clinical judgment today based on the combination of historical information, prior notes, and today's exam/ interactions. When time spent is documented, it refers only to time spent today by the signer, or if indicated, combined time spent today by collaborating physician/nurse practitioner. Bailey Garay MD Dec 14, 2016 13:54
--- NOTE | 2016-12-14 13:55 | PD.ONC.PN ---
Subjective Subjective Remarks Afebrile overnight. Patient remains mechanically ventilated via trach. per nurse , no overnight events. Objective Data Result Diagram: 12/14/1645512/14/16455 Objective Remarks GENERAL: Elderly female, supine in bed, on mechanical ventilation via trach. SKIN: Warm and dry. HEAD: Normocephalic. EYES: No injection or drainage. NECK: Supple, trachea midline. tracheostomy in place CARDIOVASCULAR: +S1/S2 RESPIRATORY: anterior [place] with occasional rhonchi GASTROINTESTINAL: Abdomen soft, mildly distended EXTREMITIES: +edema, LUE and bilateral lower extremities. Assessment/Plan Assessment 86y/o female critically ill with poor prognosis. Hematology consulted for anemia secondary to GIB/acute illness with underlying coagulopathy. Plan 1. patient has had multiple pRBC transfusions and has had positive antibody screen. It is unlikely, given her multiple comorbidities and extremely poor prognosis, that the pRBC are providing any meaningful improvement. In addition , the patient is at risk for developing infusion reaction. However, the patient 's healthcare surrogate and son wishes to continue aggressive care including transfusions. therefore, per the patient's healthcare surrogate's wishes, we will continue transfusions. No transfusion needed today as hgb is 9.3. Attending Statement The exam, history, and the medical decision-making described in the above note were completed with the assistance of the mid-level provider. I reviewed and agree with the findings presented. I attest that I had a [id number] encounter with the patient on the same day, and personally performed and documented my assessment and findings in the medical record. Michelle Celis Dec 14, 2016 13:55 Alfonso Alaniz MD Dec 14, 2016 23:07
--- NOTE | 2016-12-14 15:35 | HHI.GIFU ---
Subjective Remarks Resting in bed. Sedated on vent. No mine red bleeding- continues to have dark gastric secretions and melena. (Yoli Dickens) Objective Vitals I&O Vital Signs Date Time Temp Pulse Resp B/P Pulse Ox O2 Delivery O2 Flow Rate FiO2 12/14/16 14:00 71 12/14/16 12:00 30 12/14/16 12:00 99.0 73 15 134/60 97 12/14/16 12:00 71 12/14/16 11:01 96 30 12/14/16 10:00 81 12/14/16 08:00 30 12/14/16 08:00 98.8 65 15 102/52 97 12/14/16 08:00 81 12/14/16 07:31 98 30 12/14/16 06:00 68 12/14/16 04:08 98 30 12/14/16 04:00 30 12/14/16 04:00 75 12/14/16 04:00 98.8 75 15 106/52 97 12/14/16 02:00 74 12/14/16 00:35 97 30 12/14/16 00:00 30 12/14/16 00:00 77 12/14/16 00:00 98.6 77 15 112/53 97 12/13/16 22:00 80 12/13/16 21:13 93 30 12/13/16 20:00 81 12/13/16 20:00 30 12/13/16 20:00 98.7 81 15 123/59 94 12/13/16 18:00 80 12/13/16 17:36 99 30 12/13/16 16:00 81 12/13/16 16:00 98.7 81 16 131/62 98 12/13/16 16:00 30 I/O 12/13/16 12/13/16 12/13/16 12/14/16 12/14/16 12/14/16 07:00 15:00 23:00 07:00 15:00 23:00 Intake Total 593 ml 1150 ml 587 ml 904 ml 861 ml Output Total 700 ml 1850 ml 1400 ml 625 ml 1050 ml Balance -107 ml -700 ml -813 ml 279 ml -189 ml IV Total 56 ml 182 ml 135 ml 262 ml 174 ml TPN/PPN 287 ml 378 ml 365 ml 317 ml 422 ml Lipid 90 ml 87 ml 75 ml 100 ml Other 250 ml 500 ml 250 ml 165 ml Output Urine Total 700 ml 1350 ml 1400 ml 375 ml 850 ml Stool Total 500 ml 250 ml 100 ml Drainage Total 100 ml Laboratory Laboratory Tests Test 12/13/16 12/14/16 23:32 04:56 Hemoglobin 9.5 9.3 Hematocrit 28.5 28.3 White Blood Count 7.8 Red Blood Count 3.11 Mean Corpuscular Volume 91.2 Mean Corpuscular Hemoglobin 30.0 Mean Corpuscular Hemoglobin 32.9 Concent Red Cell Distribution Width 18.4 Platelet Count 60 Mean Platelet Volume 10.7 Neutrophils (%) (Auto) 86.6 Lymphocytes (%) (Auto) 1.7 Monocytes (%) (Auto) 2.4 Eosinophils (%) (Auto) 8.7 Basophils (%) (Auto) 0.6 Neutrophils # (Auto) 6.8 Lymphocytes # (Auto) 0.1 Monocytes # (Auto) 0.2 Eosinophils # (Auto) 0.7 Basophils # (Auto) 0.0 CBC Comment AUTO DIFF Differential Total Cells 100 Counted Neutrophils % (Manual) 66 Band Neutrophils % 20 Lymphocytes % 1 Monocytes % 1 Eosinophils % 11 Basophils % 1 Neutrophils # (Manual) 6.7 Nucleated Red Blood Cells 1 Differential Comment FINAL DIFF MANUAL Platelet Estimate LOW Platelet Morphology Comment NORMAL Polychromasia 2.3 Basophilic Stippling FAINT Activated Partial 40.1 Thromboplast Time Sodium Level 142 Potassium Level 3.3 Chloride Level 106 Carbon Dioxide Level 24.5 Anion Gap 12 Blood Urea Nitrogen 105 Creatinine 2.61 Estimat Glomerular Filtration 17 Rate Random Glucose 142 Calcium Level 8.8 Imaging Last Impressions Chest X-Ray 12/07/16 0600 Signed Impressions: Service Date/Time: November 02:30 - CONCLUSION: Diffuse bilateral patchy airspace disease and suspect small pleural effusions. Leonardo Yung MD Thoracentesis 12/01/16 0000 Signed Impressions: Service Date/Time: Thursday, December 01, 2016 18:56 - CONCLUSION: Uncomplicated CT-guided thoracentesis. Jeffery Alvarado MD Chest CT 12/01/16 0000 Signed Impressions: Service Date/Time: Thursday, December 01, 2016 13:09 - CONCLUSION: Bilateral pleural effusion, larger on the right than the left. Mack Cao MD FACR Abdomen/Pelvis CT 12/01/16 0000 Signed Impressions: Service Date/Time: Thursday, December 01, 2016 13:09 - CONCLUSION: 1. Right inguinal hernia containing only fluid. 2. Generalized anasarca. 3. Trace ascites. 4. Bilateral pleural effusions, larger on the right than the left. Mack Cao MD FACR Abdomen Ultrasound 11/27/16 0000 Signed Impressions: Service Date/Time: Sunday, November 27, 2016 08:35 - CONCLUSION: Stone in the neck of the gallbladder. Trace ascites and mild splenomegaly Jeffery Alvarado MD Gastrostomy Tube Placement 11/24/16 0000 Signed Impressions: Service Date/Time: Sunday, November 27, 2016 14:34 - CONCLUSION: Uncomplicated gastrostomy tube placement as above. Kirit Alcantar MD Head CT 11/08/16 1657 Signed Impressions: Service Date/Time: Tuesday, November 08, 2016 17:06 - CONCLUSION: Low density seen throughout the posterior circulation regions including the susan and midbrain, cerebellar hemispheres, occipital and posterior medial temporal lobes and right thalamus. This likely represents areas of infarction involving the posterior territory circulation. Jeffery Zhong MD Carotid Artery Ultrasound 11/08/16 0000 Signed Impressions: Service Date/Time: Tuesday, November 08, 2016 22:24 - CONCLUSION: Mild calcified plaque at the carotid bulbs. No evidence of hemodynamically significant carotid stenosis. José Luis Beltran MD Physical Exam HEENT: Normocephalic; atraumatic; no jaundice. CHEST: OETT to trach. Course breath sounds. CARDIAC: RRR ABDOMEN: Soft, nondistended, no hepatosplenomegaly; bowel sounds are present in all four quadrants. Melena in rectal bag. PEG tube LIWS- dark brown gastric secretions. EXTREMITIES: Generalized edema. SKIN: Generalized pallor [employer]: Sedated on vent (Yoli Dickens) Assessment and Plan Plan ASSESSMENT: - GIB/anemia with drop in hgb. 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 She has received 17 units of PRBC and 2 unit of Plt. She continues to have coffee ground gastric secretions and melena. IR does not think patient is a candidate for embolization per Dr. Farnsworth. Not a surgical candidate. S/P Rpt. EGD for control of bleeding (12/14/16)---> 1. 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 Retroflexed views revealed a hiatal hernia. PEG to LIWS- small amount dark brown gastric secretions. Melena in rectal bag. Protonix Gtt. TPN. .11/21.3. - Large gastric ulcer, multiple duodenal avms. S/P Ablation. Not a candidate for embolization/surgery. S/P rpt EGD for control of bleeding (12/14/16)---> 1. 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 Retroflexed views revealed a hiatal hernia. Protonix gtt. Appears to have old blood- dark brown gastric secretions and melena. HH .11/21.3. - Anemia secondary to acute blood loss. S/P 17 units PRBC, 2 PLT. HH .11/21.3. - Dysphagia, FEN. Pt currently in ICU being treated for massive posterior circulation ischemic CVA and she remains in the ICU being treated for hypoxic respiratory failure, severe encephalopathy secondary to stroke, severe sepsis, HCAP with pleural effusion, and acute kidney injury. She is S/P tracheostomy. Had PEG tube placement by IR on 11/27. On TPN. - Severe Encephalopathy/CVA. Per CCM - Resp. Failure, HCAP, Pleural effusion per CCM - BRIANA with electrolyte abnormalities. PLAN: - Jevity 1.5 at 20cc/hr and increase to GR 40cc/hr - Cont. TPN- will wean if she tolerates TF at GR - Cont. Protonix Gtt - Monitor HH - Transfuse as necessary - Unable to have embolization by IR - Poor prognosis - Pt seen and examined by Dr. Prince and myself and this note is written on her behalf (Yoli Dickens) Physician Comments seen, examined agree with above (Margoth Prince MD) Yoli Dickens Dec 14, 2016 15:35 Margoth Prince MD Dec 14, 2016 18:13
--- NOTE | 2016-12-14 16:10 | RADRPT ---
EXAM DATE/TIME: 12/14/2016 14:39 [place] COMPARISON: No previous studies available for comparison. INDICATIONS : Right arm swelling. MEDICAL HISTORY : Right arm swelling. SURGICAL HISTORY : None. ENCOUNTER: Initial ACUITY: 1 day PAIN SCORE: Non-responsive LOCATION: Right arm. FINDINGS: There is spontaneous flow documented in the brachial, basilic, axillary, and subclavian veins. There is occlusive thrombus within the cephalic vein at the level of the antecubital fossa. CONCLUSION: Thrombus within the cephalic vein. Belkis Rodriguez MD on December 14, 2016 at 16:08 Board Certified Radiologist. This report was verified electronically.
[2016-12-14] MEDS: CLINIMIX 4.25/5 (Cust.Renal Periph) 1000 mL- </= 42 mls/hr IV SCH ×8 (16:55)
[2016-12-14] MEDS: FAT EMULSION 20% INJ 250 ML (@10 mls/hr) IV SCH (20:37)
[2016-12-15] VITALS (17 sets, daily range): BP systolic 109–141; BP diastolic 57–69; PULSE 57–75; RESP 18–20; TEMP 98.1–98.3; O2SAT 94–100
[2016-12-15] MEDS: PANTOPRAZOLE INJ 80 MG in SODIUM CHLORIDE 0.9% INJ 100 ML IV SCH (00:57)
[2016-12-15] MEDS: INSULIN NovoLIN REGULAR SUPPLEMENTAL SCALE SQ SCH ×4 (02:15→21:15)
[2016-12-15] MEDS: CHLORHEXIDINE GLUCONATE 2 % 1 PACK (2 CLOTHS) TOP SCH (04:00)
[2016-12-15] MEDS: FREE WATER G-TUBE SCH ×2 (06:00)
[2016-12-15] MEDS: EPOETIN ALFA 10,000 UNITS/ML VIAL SQ SCH (06:32)
[2016-12-15 06:45] LABS: AUTOMATED NEUTROPHIL # 4.2 TH/MM3 (1.8-7.7); BASOPHIL # 0.1 TH/MM3 (0-0.2); EOSINOPHIL # 0.5 TH/MM3 (0-0.4); EOSINOPHIL % 10.4 % (0.0-4.0); HEMATOCRIT 26.9 % (35.0-46.0); LYMPH % 4.6 % (9.0-44.0); LYMPHOCYTE # 0.2 TH/MM3 (1.0-4.8); MEAN CORPUSCULAR HEMOGLOBIN 31.1 PG (27.0-34.0); MEAN CORPUSCULAR HGB CONC 34.2 % (32.0-36.0); MONO % 3.1 % (0.0-8.0); NEUT % 80.9 % (16.0-70.0); PLATELET COUNT 50 TH/MM3 (150-450); RED BLOOD COUNT 2.95 MIL/MM3 (4.00-5.30); RED CELL DISTRIBUTION WIDTH 19.6 % (11.6-17.2); WHITE BLOOD COUNT 5.2 TH/MM3 (4.0-11.0)
[2016-12-15 06:49] LABS: HEMO FLAGS AUTO DIFF
[2016-12-15 07:13] LABS: BICARBONATE 23.5 MEQ/L (21.0-32.0); POTASSIUM 3.4 MEQ/L (3.5-5.1)
[2016-12-15 07:35] LABS: BANDS 16 % (0-6); BASOPHILS 1 % (0-2); CORRECTED NUCLEATED RBC 1 /100 WBC (0-0); EOSINOPHILS 10 % (0-4); NEUTROPHIL # MANUAL DIFF 4.3 TH/MM3 (1.8-7.7); PLATELET ESTIMATE SMEAR LOW (NORMAL); PLATELET MORPHOLOGY NORMAL (NORMAL); POLYS (SEG NEUTROPHILS) 67 % (16-70); SCAN/DIFF FINAL DIFF MANUAL; WBC DIFF SAMPLE 100
[2016-12-15 07:37] LABS: HOWELL-JOLLY BODIES PRESENT (NONE SEEN)
[2016-12-15] MEDS: CHLORHEXIDINE 0.12% (ORAL KIT) 15 ML CUP MT SCH ×2 (08:00→20:07)
[2016-12-15] MEDS: FERROUS SULFATE 300 MG /5ML UDC PO SCH ×2 (08:40→21:16)
[2016-12-15] MEDS: BUMETANIDE INJ 1 MG/4 ML VIAL IV PUSH SCH ×2 (08:40→20:06)
[2016-12-15] MEDS: ARTIFICIAL TEARS OPTH SOLN 15 ML BTL EACH EYE SCH ×3 (08:41→20:05)
[2016-12-15] MEDS: SODIUM CHLORIDE 0.9% FLUSH 5 ML FLUSH IV FLUSH SCH ×2 (08:41→21:00)
--- NOTE | 2016-12-15 10:31 | HHI.GIFU ---
Subjective Remarks Resting in bed. Nurse reports that she had high residuals overnight, will attempt to increase TF to GR today. No mine red bleeding. (Yoli Dickens) Objective Vitals I&O Vital Signs Date Time Temp Pulse Resp B/P Pulse Ox O2 Delivery O2 Flow Rate FiO2 12/15/16 08:26 98 30 12/15/16 08:00 30 12/15/16 08:00 98.2 57 18 109/59 97 12/15/16 08:00 58 12/15/16 06:00 58 12/15/16 04:18 97 30 12/15/16 04:00 98.1 75 18 141/69 94 12/15/16 04:00 30 12/15/16 04:00 75 12/15/16 02:00 64 12/15/16 00:41 97 30 12/15/16 00:00 98.3 71 18 133/65 96 12/15/16 00:00 30 12/15/16 00:00 71 12/14/16 22:00 69 12/14/16 20:31 96 30 12/14/16 20:00 30 12/14/16 20:00 68 12/14/16 20:00 98.2 68 18 114/59 97 12/14/16 18:00 67 12/14/16 16:34 99 30 12/14/16 16:00 30 12/14/16 16:00 99.0 73 15 102/52 97 12/14/16 16:00 67 12/14/16 14:00 71 12/14/16 12:00 30 12/14/16 12:00 99.0 73 15 134/60 97 12/14/16 12:00 71 12/14/16 11:01 96 30 I/O 12/14/16 12/14/16 12/14/16 12/15/16 12/15/16 12/15/16 07:00 15:00 23:00 07:00 15:00 23:00 Intake Total 904 ml 861 ml 894 ml 717 ml Output Total 625 ml 1050 ml 400 ml 300 ml Balance 279 ml -189 ml 494 ml 417 ml IV Total 262 ml 174 ml 824 ml 422 ml Tube Feeding 70 ml 45 ml TPN/PPN 317 ml 422 ml Lipid 75 ml 100 ml Other 250 ml 165 ml 250 ml Output Urine Total 375 ml 850 ml 400 ml 300 ml Stool Total 250 ml 100 ml Drainage Total 100 ml Laboratory Laboratory Tests Test 12/15/16 12/15/16 05:23 05:33 White Blood Count 5.2 Red Blood Count 2.95 Hemoglobin 9.2 Hematocrit 26.9 Mean Corpuscular Volume 91.0 Mean Corpuscular Hemoglobin 31.1 Mean Corpuscular Hemoglobin 34.2 Concent Red Cell Distribution Width 19.6 Platelet Count 50 Mean Platelet Volume 10.9 Neutrophils (%) (Auto) 80.9 Lymphocytes (%) (Auto) 4.6 Monocytes (%) (Auto) 3.1 Eosinophils (%) (Auto) 10.4 Basophils (%) (Auto) 1.0 Neutrophils # (Auto) 4.2 Lymphocytes # (Auto) 0.2 Monocytes # (Auto) 0.2 Eosinophils # (Auto) 0.5 Basophils # (Auto) 0.1 CBC Comment AUTO DIFF Differential Total Cells 100 Counted Neutrophils % (Manual) 67 Band Neutrophils % 16 Lymphocytes % 3 Monocytes % 3 Eosinophils % 10 Basophils % 1 Neutrophils # (Manual) 4.3 Nucleated Red Blood Cells 1 Differential Comment FINAL DIFF MANUAL Platelet Estimate LOW Platelet Morphology Comment NORMAL [place] Bodies PRESENT Sodium Level 141 Potassium Level 3.4 Chloride Level 107 Carbon Dioxide Level 23.5 Anion Gap 11 Blood Urea Nitrogen 114 Creatinine 2.62 Estimat Glomerular Filtration 17 Rate Random Glucose 147 Calcium Level 8.6 Imaging Last Impressions Upper Extremity Ultrasound 12/14/16 0000 Signed Impressions: Service Date/Time: November 14:39 - CONCLUSION: Thrombus within the cephalic vein. K. Florian Rodriguez MD Chest X-Ray 12/07/16 0600 Signed Impressions: Service Date/Time: November 02:30 - CONCLUSION: Diffuse bilateral patchy airspace disease and suspect small pleural effusions. Leonardo Yung MD Thoracentesis 12/01/16 0000 Signed Impressions: Service Date/Time: Thursday, December 01, 2016 18:56 - CONCLUSION: Uncomplicated CT-guided thoracentesis. Jeffery Alvarado MD Chest CT 12/01/16 0000 Signed Impressions: Service Date/Time: Thursday, December 01, 2016 13:09 - CONCLUSION: Bilateral pleural effusion, larger on the right than the left. Mack Cao MD FACR Abdomen/Pelvis CT 12/01/16 0000 Signed Impressions: Service Date/Time: Thursday, December 01, 2016 13:09 - CONCLUSION: 1. Right inguinal hernia containing only fluid. 2. Generalized anasarca. 3. Trace ascites. 4. Bilateral pleural effusions, larger on the right than the left. Mack Cao MD FACR Abdomen Ultrasound 11/27/16 0000 Signed Impressions: Service Date/Time: Sunday, November 27, 2016 08:35 - CONCLUSION: Stone in the neck of the gallbladder. Trace ascites and mild splenomegaly Jeffeyr Alvarado MD Gastrostomy Tube Placement 11/24/16 0000 Signed Impressions: Service Date/Time: Sunday, November 27, 2016 14:34 - CONCLUSION: Uncomplicated gastrostomy tube placement as above. Kirit Alcantar MD Head CT 11/08/16 1657 Signed Impressions: Service Date/Time: Tuesday, November 08, 2016 17:06 - CONCLUSION: Low density seen throughout the posterior circulation regions including the susan and midbrain, cerebellar hemispheres, occipital and posterior medial temporal lobes and right thalamus. This likely represents areas of infarction involving the posterior territory circulation. Jeffery Zhong MD Carotid Artery Ultrasound 11/08/16 0000 Signed Impressions: Service Date/Time: Tuesday, November 08, 2016 22:24 - CONCLUSION: Mild calcified plaque at the carotid bulbs. No evidence of hemodynamically significant carotid stenosis. José Luis Beltran MD Physical Exam HEENT: Normocephalic; atraumatic; no jaundice. CHEST: OETT to trach. Course breath sounds. CARDIAC: RRR ABDOMEN: Soft, nondistended, no hepatosplenomegaly; bowel sounds are present in all four quadrants. Melena in rectal bag. PEG tube with TF at 15cc/hr EXTREMITIES: Generalized edema. 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 She has received 17 units of PRBC and 2 unit of Plt. She continues to have coffee ground gastric secretions and melena. IR does not think patient is a candidate for embolization per Dr. Farnsworth. Not a surgical candidate. S/P Rpt. EGD for control of bleeding (12/14/16)---> 1. 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 Retroflexed views revealed a hiatal hernia. Melena in rectal bag. TF was restarted, had high residuals last night, will try to advance again today. Protonix Gtt. TPN. HH ./. - Large gastric ulcer, multiple duodenal avms. S/P Ablation. Not a candidate for embolization/surgery. S/P rpt EGD for control of bleeding (12/14/16)---> 1. 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 Retroflexed views revealed a hiatal hernia. Protonix gtt. HH .10/22. - Anemia secondary to acute blood loss. S/P 17 units PRBC, 2 PLT. HH .10/22. - Dysphagia, FEN. Pt currently in ICU being treated for massive posterior circulation ischemic CVA and she remains in the ICU being treated for hypoxic respiratory failure, severe encephalopathy secondary to stroke, severe sepsis, HCAP with pleural effusion, and acute kidney injury. She is S/P tracheostomy. Had PEG tube placement by IR on 11/27. On TPN. - Severe Encephalopathy/CVA. Per CCM - Resp. Failure, HCAP, Pleural effusion per CCM - BRIANA with electrolyte abnormalities. PLAN: - Jevity 1.5 at 20cc/hr and increase to GR 40cc/hr - Cont. TPN- will wean if she tolerates TF at GR - D/C Protonix Gtt - Protonix 40mg IV BID - Monitor HH - Transfuse as necessary - Unable to have embolization by IR - Supportive care - If unable to advance TF today, will give trial of reglan - Pt seen and examined by Dr. Prince and myself and this note is written on her behalf (Yoli Dickens) Physician Comments seen, examined agree with above (Margoth Prince MD) Yoli Dickens Dec 15, 2016 10:31 Margoth Prince MD Dec 15, 2016 17:44
--- NOTE | 2016-12-15 10:39 | HHI.CCPN ---
Subjective Remarks/Hospital Course This is an 86yF with per report no other past medical history who presented to the ER after she was found unresponsive in her bed. According to ER reports, her family saw her normal last night when she had a fall, with unknown LOC. At that point, he helped her back to bed. However, this morning she did not wake up. On arrival to the ER, she was unresponsive only withdrawing to pain. she was intubated for airway protection and a poor GCS. CT head demonstrated massive posterior-circulation ischemic stroke. The patient is currently intubated and unresponsive and cannot provide any additional history. 11/09: No acute changes overnight. Palliative care team has consult with the family regarding goals of care. Currently the patient's sedation fentanyl infusion has been turned off without any response from patient. The patient notably does withdrawal to pain. 11/10: No change in neurological status. [id number]. The patient withdraws to pain 4 extremities. The patient currently on no sedation, fentanyl infusion discontinued yesterday. Tube feeds were initiated. The patient's urine culture grew back Escherichia coli, the patient was started on antibiotics. Extensive discussion with son regarding patient's neurological status, son Wyatt has had extensive discussion with palliative care.The son feels that yesterday when the patient was spoken to in [place]an the patient squeezed his hand and desires aggressive treatment. The patient's neuro status is unchanged, totally unresponsive with occasional reflexive twitching of feet B/L. Follow-up with neurology Dr. Pack, guarding any further imaging studies. 11/13: No change in neuro exam. Palliative care following. Family wanting full aggressive care. Palliative care will address early trach PEG 11/14: No improvement in neuro status. Son has not made decisions regarding trach and PEG. Apparently he wants to wait longer to see any improvement 11/15: Remains unresponsive. Neuro exam with extensor posturing-unchanged. Son requesting aggressive care. Continues to have low-grade fever 11/16: Clinically no improvement. Tolerates CPAP. Unable to extubate as patient will not protect airway 11/17: Tolerating C Pap but no change in neuro exam. Hemoglobin noted to be 6.8 hemodynamically stable 11/18: Became tachycardic and hypotensive early a.m., placed on assist control. Otherwise neuro exam remains unchanged 11/19: Continues to spike fever Tmax 102, started on vancomycin and cefepime in addition to Levaquin yesterday. Currently only low-grade fever. Received 2 units of blood for hemoglobin of 5.3. CBC pending at this time. No improvement in neuro exam 11/20: White count is 18.3 today, MAXIMUM TEMPERATURE 103.1. Chest x-ray showing right sided infiltrate. Urine culture with gram-negative rods and Brionna albicans. ID consulted Diflucan added 11/21/16: Tmax 101.5. Bilateral lung infiltrates, R>L but slightly improved. No improvement in neuro exam. ID consulted and following. 11/22/16: No fever. CT chest- moderate to large R pleural effusion, bilateral lung infiltrates. ABX per ID. CXR today shows increasing bilateral infiltrates and effusion right more than left. Almost near complete infiltrates on the right lung [place]. Vaginally worsening creatinine today 1.45 indicating multiorgan failure 11/23/16: Hb 9.8 today after 2U PRBC yesterday. Plan for tracheostomy today. INR normal platelet count 116. Worsening creatinine today is 1.6. UO 550 ml in 24 hours. 1L NS bolus and 75 ml per hour maintenance NS. Started on Dopamine 3 mcg per min to maintain MAP>65 11/24 Patient is on ventilator via trach. Afebrile. On Dopamine 4 mics. 11/25 No acute events overnight. s/p EGD yesterday showed mild gastritis unable to place PEG tube endoscopically. Remains on Dopamine 4 mics. On no sedation unresponsive. 11/26 No acute events overnight. On CPAP with PS 20, PEEP: 5 and FIO2 40%. Afebrile. Off Dopamine. Afebrile. 11/27 Patient remains on ventilator via trach on no drips. Afebrile. For PEG tube placement by IR today. 11/28 Patient s/p PEG tube placement by IR yesterday, s/p Right thoracentesis with removal 700ml CXR showed better aeration of lungs, Hgb 6.7 this morning 2units PRBC ordered. Renal function worse with Cr: 3.40 from 2.85 . 11/29: Remains encephalopathic on mechanical ventilation via tracheostomy. 11/30: Remains encephalopathic on mechanical ventilation via tracheostomy. 12/01 Patient s/p transfusion 1unit PRBC last night for Hgb 5.8 in addition to 2L NS. Hgb 6.5 this morning. 12/02: Afebrile. The patient underwent CT-guided thoracentesis yesterday with approximately 600 cc removed. Chest x-ray pending this a.m.. Patient received packed red blood cell 2 units yesterday. Hemoglobin 7.4. Pending EGD today. 12/03:The patient underwent EGD yesterday with Dr. Farnsworth patient was noted to have a large active bleeding ulcer in the body of the stomach, multiple AVMs. Multiple ablations performed. This a.m. hemoglobin dropped to 6.1, platelet count 38. The patient was transfused 2 PRBC, and a unit of platelets. Patient still not relieved receiving any nutrition will begin PPN today. The patient continues to have copious amounts of melena with fecal incontinence apparatus in place. 12/04: The patient continues to have copious melena. PT INR drawn last evening INR was noted to be 13.5. The patient received KCentra, and current INR 1.3 the family requests aggressive measures to be continued. No further interventions from gastroenterology per . IR deemed the patient not a candidate for arteriography or endovascular treatment. 12/05: Patient's current medical status unchanged. Large tarry stools, acute blood loss anemia continues in conjunction with thrombocytopenia. During the night the nurse reported a malodorous scent was noted in free water flush container for instillation through G-tube. It was noted to be possibly fish oil , patient's son was in the room during that time. Container removed. The patient is noted to have a hemoglobin level of 5.8 today will receive 2 units of packed red blood cells and 1 unit of platelets today. 12/06: The patient continues to have copious melena. The patient received one 6 pack of platelets, and 2 units of blood yesterday. Tonight as reported by the nurse in the evening the son continue to utilize fish oil in the patient's free water, which was removed by the nurse. Ethics committee consult was initiated with Dr. Bauer yesterday, regarding assessing goals of care. 12/07: The patient's INR 1.3. Patient received 2 units of blood and one 6 pack of platelets yesterday. Awaiting ethics committee meeting with Dr. Bauer. The patient continues to require transfusions. 4/14: Patient was noted to have a drop in hemoglobin this a.m.. The patient is being transfused 2 units of PRBCs, with noted difficulty obtaining unit secondary to antibodies. Hematology will be consulted. Bioethics committee meeting planned to convene in one week, patient's son has agreed to attend. 12/09: Afebrile. No change in neuro status. Wound Care consult for left and blisters on back, orders provided. Hemoglobin stable post 2 units packed red blood cells yesterday. 12/10: The patient's hemoglobin 7.6 yesterday, hemoglobin pending for today. Overnight RN reported family member son continually putting some chemicals in the gastric tube of the patient, risk management notified. Hematology oncology has evaluated the patient, awaiting bioethics committee meeting scheduled for next week. The patient continues on PPN for nutritional support. 12/11 Patient remains on ventilator via trach on no sedation unresponsive. Afebrile.On Protonix drip and PPN. 12/12 No acute events overnight. Afebrile. Hgb 6.8 this morning 2 units PRBC ordered . 12/13 Patient remains on ventilator via trach, s/p transfusion 2units PRBC yesterday Hgb 9.1 this morning. Afebrile. On Protonix drip. 12/14 Patient s/p EGD yesterday which showed esophageal varices and hiatal hernia. On Ventilator via trach. H/H stable. On Protonix drip. 12/15 No acute events overnight. Afebrile. Objective Vital Signs Date Time Temp Pulse Resp B/P Pulse Ox O2 Delivery O2 Flow Rate FiO2 12/15/16 08:26 98 30 12/15/16 08:00 98.2 57 18 109/59 Intake and Output 12/14/16 12/14/16 12/15/16 08:00 16:00 00:00 Intake Total 904 ml 861 ml 894 ml Output Total 625 ml 1050 ml 400 ml Balance 279 ml -189 ml 494 ml Result Diagram: 12/15/16 0523 12/15/16 0533 Other Results Laboratory Tests Test 12/15/16 12/15/16 05:23 05:33 White Blood Count 5.2 TH/MM3 Red Blood Count 2.95 MIL/MM3 Hemoglobin 9.2 GM/DL Hematocrit 26.9 % Mean Corpuscular Volume 91.0 FL Mean Corpuscular Hemoglobin 31.1 PG Mean Corpuscular Hemoglobin 34.2 % Concent Red Cell Distribution Width 19.6 % Platelet Count 50 TH/MM3 Mean Platelet Volume 10.9 FL Neutrophils (%) (Auto) 80.9 % Lymphocytes (%) (Auto) 4.6 % Monocytes (%) (Auto) 3.1 % Eosinophils (%) (Auto) 10.4 % Basophils (%) (Auto) 1.0 % Neutrophils # (Auto) 4.2 TH/MM3 Lymphocytes # (Auto) 0.2 TH/MM3 Monocytes # (Auto) 0.2 TH/MM3 Eosinophils # (Auto) 0.5 TH/MM3 Basophils # (Auto) 0.1 TH/MM3 CBC Comment AUTO DIFF Differential Total Cells 100 Counted Neutrophils % (Manual) 67 % Band Neutrophils % 16 % Lymphocytes % 3 % Monocytes % 3 % Eosinophils % 10 % Basophils % 1 % Neutrophils # (Manual) 4.3 TH/MM3 Nucleated Red Blood Cells 1 /100 WBC Differential Comment FINAL DIFF MANUAL Platelet Estimate LOW Platelet Morphology Comment NORMAL [place] Bodies PRESENT Sodium Level 141 MEQ/L Potassium Level 3.4 MEQ/L Chloride Level 107 MEQ/L Carbon Dioxide Level 23.5 MEQ/L Anion Gap 11 MEQ/L Blood Urea Nitrogen 114 MG/DL Creatinine 2.62 MG/DL Estimat Glomerular Filtration 17 ML/MIN Rate Random Glucose 147 MG/DL Calcium Level 8.6 MG/DL Imaging Last Impressions Upper Extremity Ultrasound 12/14/16 0000 Signed Impressions: Service Date/Time: November 14:39 - CONCLUSION: Thrombus within the cephalic vein. K. Florian Rodriguez MD Chest X-Ray 12/07/16 0600 Signed Impressions: Service Date/Time: November 02:30 - CONCLUSION: Diffuse bilateral patchy airspace disease and suspect small pleural effusions. Leonardo Yung MD Thoracentesis 12/01/16 0000 Signed Impressions: Service Date/Time: Thursday, December 01, 2016 18:56 - CONCLUSION: Uncomplicated CT-guided thoracentesis. Jeffery Alvarado MD Chest CT 12/01/16 0000 Signed Impressions: Service Date/Time: Thursday, December 01, 2016 13:09 - CONCLUSION: Bilateral pleural effusion, larger on the right than the left. Mack Cao MD FACR Abdomen/Pelvis CT 12/01/16 0000 Signed Impressions: Service Date/Time: Thursday, December 01, 2016 13:09 - CONCLUSION: 1. Right inguinal hernia containing only fluid. 2. Generalized anasarca. 3. Trace ascites. 4. Bilateral pleural effusions, larger on the right than the left. Mack Cao MD FACR Abdomen Ultrasound 11/27/16 0000 Signed Impressions: Service Date/Time: Sunday, November 27, 2016 08:35 - CONCLUSION: Stone in the neck of the gallbladder. Trace ascites and mild splenomegaly Jeffery Alvarado MD Gastrostomy Tube Placement 11/24/16 0000 Signed Impressions: Service Date/Time: Sunday, November 27, 2016 14:34 - CONCLUSION: Uncomplicated gastrostomy tube placement as above. Kirit Alcantar MD Head CT 11/08/16 1657 Signed Impressions: Service Date/Time: Tuesday, November 08, 2016 17:06 - CONCLUSION: Low density seen throughout the posterior circulation regions including the susan and midbrain, cerebellar hemispheres, occipital and posterior medial temporal lobes and right thalamus. This likely represents areas of infarction involving the posterior territory circulation. Jeffery Zhong MD Carotid Artery Ultrasound 11/08/16 0000 Signed Impressions: Service Date/Time: Tuesday, November 08, 2016 22:24 - CONCLUSION: Mild calcified plaque at the carotid bulbs. No evidence of hemodynamically significant carotid stenosis. José Luis Beltran MD Objective Remarks GENERAL: Patient is 86 yo on ventilator via trach. SKIN: Warm and dry. HEAD: Normocephalic. EYES: No scleral icterus. No injection or drainage. NECK: Supple, trachea midline. No JVD or lymphadenopathy. CARDIOVASCULAR: Regular rate and rhythm without murmurs, gallops, or rubs. RESPIRATORY: Breath sounds equal bilaterally. Few coarse BS. 8.0 trach in situ GASTROINTESTINAL: Abdomen soft, non-tender, nondistended. PEG in place MUSCULOSKELETAL: No cyanosis, peripheral 2+ edema bilateral upper extremities. Left heel gauze dressing Neuro: Positive corneal reflex. LIDYA. Negative cough. Negative gag. Extensor posturing in uppers. Downgoing Babinski. 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 She was last seen normal, nearly 24 hours, she was not a candidate for any interventional therapy. Unfortunately, given her age, and the extent of the stroke, her prognosis for any reasonable neurologic function is quite poor. Active GI bleed discussed with family, and patient's poor prognosis. Her family continues to express wishes for aggressive medical management. Bioethics has been consulted. Active problems: Massive posterior circulation ischemic CVA Hypoxic and hypercarbic respiratory failure Severe encephalopathy secondary to stroke Severe sepsis Healthcare associated pneumonia with pleural effusion Acute kidney injury UTI Anemia-acute and chronic Hyperglycemia of critical illness Thrombocytopenia Active GI bleed with AVM's Plan Neuro: Monitor neuro status per ICU protocol - Avoid sedatives. Neuro is following -11/08 CT brain: Low density seen throughout the posterior circulation regions including the susan and midbrain, cerebellar hemispheres, occipital and posterior medial temporal lobes and right thalamus. This likely represents areas of infarction involving the posterior territory circulation -GCS 3T, decerebrate posturing Resp: -Continue with vent support keep sat >92% Vent bundle, Head of bed 30, bronchodilators-scheduled -s/p trach 11/23, pulm toilet, trach care -SBT daily as lia. Check CXR -s/p CT guided right thoracentesis 11/27 with removal 700ml clear fluid. CVS: Monitor HR and BP keep MAP>65mmhg 2-D echo -EF 5560 %, mild aortic mitral and tricuspid regurgitation, No RWMA. 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 --IR intervention-patient is not a candidate. Continue with Protonix drip. -s/p PEG tube placement by IR 11/27 , TF held (Jevity 1.5 with goal rate 45 ml/hr ) secondary to GI bleeding -s/p EGD 11/24 showed mild gastritis unable to place PEG tube endoscopically. -Monitor LFT's, US abdomen: Stone in neck of gall bladder, no hydronephrosis -12/01 CT abdomen/pelvis-generalized anasarca, trace ascites, bilateral pleural effusions right greater than left -Continue with TF- Jevity 1.5 advance to goal rate and wean off PPN. : -Monitor renal function, I/O's, electrolytes replacement as needed. Cr: 2.62 today, UO: 1550 ml in 24 hrs -on Bumex 2mg IV BID. Renal is following- Dr. Zuniga -d/c free water ID: -Off abx per ID monitor for signs of infections ( Fever, WBC) -Urine culture 11/18/16 with Brionna albicans and E coli NOT S Levaquin, but S to zosyn -Infectious disease Dr. Wen, sputum cx 11/23: nl resp erica Heme Monitor CBC,s/p transfusion 2units PRBC. On Fe Sulfate 300mg BID Hematology is following-Dr. Alaniz. On Epogen M,W,F. Endo: --SSI ( low scale) for glycemic control Msk: --Red and sacral area, left heel wound --12/06 Wound care consulted --Specialty bed-Airflow Proph: Subcutaneous heparin on hold since 11/23 secondary to thrombocytopenia, anemia and GI bleed. SCDs for DVT prophylaxis Protonix for GI prophylaxis RUE US.Thrombus in cephalic veins not on AC due to GI bleed and anemia requiring blood transfusion -Palliative care is following IV access: Peripheral IV's Palliative care is following. Level 3 Kacy Ayala MD Dec 15, 2016 10:39
[2016-12-15] MEDS ORDERED: POTASSIUM CHLOR 20 MEQ PREMIX 100 ML IV ONE (11:00)
--- NOTE | 2016-12-15 11:45 | HHI.NPPN ---
Subjective History of Present Illness 86 year old with CVA, Resp failure s/p Trach/ PEG Additional Remarks Patient remains on the Vent, remain unresponsive. Objective Data Data 12/14/16 12/15/16 19:00 07:00 Intake Total 861 ml 1611 ml Output Total 1050 ml 700 ml Balance -189 ml 911 ml IV Total 174 ml 1246 ml Tube Feeding 115 ml TPN/PPN 422 ml Lipid 100 ml Other 165 ml 250 ml Output Urine Total 850 ml 700 ml Stool Total 100 ml Drainage Total 100 ml Vital Signs Date Time Temp Pulse Resp B/P Pulse Ox O2 Delivery O2 Flow Rate FiO2 12/15/16 08:26 98 30 12/15/16 08:00 30 12/15/16 08:00 98.2 57 18 109/59 97 12/15/16 08:00 58 12/15/16 06:00 58 12/15/16 04:18 97 30 12/15/16 04:00 98.1 75 18 141/69 94 12/15/16 04:00 30 12/15/16 04:00 75 12/15/16 02:00 64 12/15/16 00:41 97 30 12/15/16 00:00 98.3 71 18 133/65 96 12/15/16 00:00 30 12/15/16 00:00 71 12/14/16 22:00 69 12/14/16 20:31 96 30 12/14/16 20:00 30 12/14/16 20:00 68 12/14/16 20:00 98.2 68 18 114/59 97 12/14/16 18:00 67 12/14/16 16:34 99 30 12/14/16 16:00 30 12/14/16 16:00 99.0 73 15 102/52 97 12/14/16 16:00 67 12/14/16 14:00 71 12/14/16 12:00 30 12/14/16 12:00 99.0 73 15 134/60 97 12/14/16 12:00 71 -: 12/15/16 0523 12/15/16 0533 Physical Exam General Appearance: Pale Neck Neck Remarks s/p trach Pulmonary Resp Exam: Decreased Bases Cardiology CV Exam: Regular Gastrointestinal/Abdomen GI Exam: Soft, Non-Tender Extremeties Extremities Exam: Moderate Edema Assessment/Plan Problem List: (1) Acute renal failure Plan: Patient has multiple issues and has malnutrition with poor albumin contributing to low oncotic pressure, ATN creatinine stable: 3.37 --> 3.05 --> 2.7 -->2.7 -->. 2.6 -->2.6 --> 2.6 On Bumex 2 mg IV q12 - continue for now. Good UOP with 1.5 L/ 24 hours K replaced no meaningful recovery from CVA at this point Palliative care following. Apparently son would like to fly her to [facility] for stem cell treatment. Continue to follow goals of care. 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 Ongoing anemia, continue to monitor. getting PRBC on regular interval agree with Palliative care ethics meeting with son as futile care with hopeless situation and no chance of meaningful recovery. Creatinine remain same. 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 (2) Metabolic acidosis Plan: Stable, continue to monitor (3) Pneumonia Plan: On vent treated earlier with antibiotic (4) Urinary tract infection Plan: Escherichia coli she was treated (5) CVA (cerebral vascular accident) Plan: Massive stroke neurology following (6) Rhabdomyolysis Plan: This resolved (7) Hypernatremia Plan: Given 1L of DW over weekend improved Continue to monitor, repeat as necessary (8) Gastrointestinal hemorrhage Plan: Multiple PRBC given AVM poor prognosis Problem Qualifiers (1) Acute renal failure: Qualified Code: N17.9 - Acute renal failure, unspecified acute renal failure type (2) CVA (cerebral vascular accident): Qualified Code: I63.9 - Cerebrovascular accident (CVA), unspecified mechanism (3) Rhabdomyolysis: Qualified Code: M62.82 - Non-traumatic rhabdomyolysis Kristel Zuniga MD Dec 15, 2016 11:45
--- NOTE | 2016-12-15 11:51 | RADRPT ---
EXAM DATE/TIME: 12/15/2016 10:46 [facility] COMPARISON: CHEST SINGLE AP, December 07, 2016, 2:30. INDICATIONS : Respiratory distress. MEDICAL HISTORY : Cerebrovascular disease. SURGICAL HISTORY : None. ENCOUNTER: Initial ACUITY: 1 week PAIN SCORE: Non-responsive. LOCATION: Bilateral chest FINDINGS: Tracheostomy tube is present in satisfactory position. There is diffuse bilateral pulmonary edema not significantly changed. There is a tiny left pleural effusion with a small right pleural effusion. Th ere are atherosclerotic calcifications of the aorta due to chronic atherosclerotic disease. CONCLUSION: No appreciable change. Belkis Rodriguez MD on December 15, 2016 at 11:48 Board Certified Radiologist. This report was verified electronically.
[2016-12-15] MEDS: PANTOPRAZOLE SODIUM 40 MG VIAL IV PUSH SCH ×2 (12:54→23:12)
[2016-12-15] MEDS: FAT EMULSION 20% INJ 250 ML (@10 mls/hr) IV SCH (20:06)
[2016-12-15] MEDS: CLINIMIX 4.25/5 (Cust.Renal Periph) 1000 mL- </= 42 mls/hr IV SCH ×8 (22:21)
[2016-12-16] VITALS (13 sets, daily range): BP systolic 105–125; BP diastolic 52–58; PULSE 68–80; RESP 17–20; TEMP 97.5–98.4; O2SAT 94–98
[2016-12-16] MEDS: INSULIN NovoLIN REGULAR SUPPLEMENTAL SCALE SQ SCH ×4 (02:15→20:00)
[2016-12-16] MEDS: CHLORHEXIDINE GLUCONATE 2 % 1 PACK (2 CLOTHS) TOP SCH (03:32)
[2016-12-16 04:32] LABS: AUTOMATED NEUTROPHIL # 4.2 TH/MM3 (1.8-7.7); BASOPHIL % 0.5 % (0.0-2.0); EOSINOPHIL # 0.7 TH/MM3 (0-0.4); LYMPH % 7.5 % (9.0-44.0); LYMPHOCYTE # 0.4 TH/MM3 (1.0-4.8); MEAN CELL VOLUME 91.9 FL (80.0-100.0); MEAN CORPUSCULAR HEMOGLOBIN 31.3 PG (27.0-34.0); MEAN CORPUSCULAR HGB CONC 34.1 % (32.0-36.0); MONO % 4.9 % (0.0-8.0); NEUT % 74.1 % (16.0-70.0); PLATELET COUNT 42 TH/MM3 (150-450); RED BLOOD COUNT 3.15 MIL/MM3 (4.00-5.30); RED CELL DISTRIBUTION WIDTH 19.8 % (11.6-17.2); WHITE BLOOD COUNT 5.7 TH/MM3 (4.0-11.0)
[2016-12-16 04:40] LABS: HEMO FLAGS AUTO DIFF
[2016-12-16 05:00] LABS: BICARBONATE 23.5 MEQ/L (21.0-32.0); POTASSIUM 3.5 MEQ/L (3.5-5.1)
[2016-12-16 07:12] LABS: OVALOCYTES 1+ (NORMAL); PLATELET ESTIMATE SMEAR LOW (NORMAL); PLATELET MORPHOLOGY NORMAL (NORMAL); SCAN/DIFF AUTO DIFF CONFIRMED; TEARDROP RBCS 1+ (NORMAL)
[2016-12-16] MEDS: FERROUS SULFATE 300 MG /5ML UDC PO SCH ×2 (08:57→21:35)
[2016-12-16] MEDS: BUMETANIDE INJ 1 MG/4 ML VIAL IV PUSH SCH ×2 (08:57→18:25)
[2016-12-16] MEDS: SODIUM CHLORIDE 0.9% FLUSH 5 ML FLUSH IV FLUSH SCH ×2 (08:57→21:00)
[2016-12-16] MEDS: ARTIFICIAL TEARS OPTH SOLN 15 ML BTL EACH EYE SCH ×3 (08:58→18:26)
[2016-12-16] MEDS: CHLORHEXIDINE 0.12% (ORAL KIT) 15 ML CUP MT SCH ×2 (08:58→21:35)
--- NOTE | 2016-12-16 09:11 | HHI.CCPN ---
Subjective Remarks/Hospital Course This is an 86yF with per report no other past medical history who presented to the ER after she was found unresponsive in her bed. According to ER reports, her family saw her normal last night when she had a fall, with unknown LOC. At that point, he helped her back to bed. However, this morning she did not wake up. On arrival to the ER, she was unresponsive only withdrawing to pain. she was intubated for airway protection and a poor GCS. CT head demonstrated massive posterior-circulation ischemic stroke. The patient is currently intubated and unresponsive and cannot provide any additional history. 11/09: No acute changes overnight. Palliative care team has consult with the family regarding goals of care. Currently the patient's sedation fentanyl infusion has been turned off without any response from patient. The patient notably does withdrawal to pain. 11/10: No change in neurological status. [id number]. The patient withdraws to pain 4 extremities. The patient currently on no sedation, fentanyl infusion discontinued yesterday. Tube feeds were initiated. The patient's urine culture grew back Escherichia coli, the patient was started on antibiotics. Extensive discussion with son regarding patient's neurological status, son Wyatt has had extensive discussion with palliative care.The son feels that yesterday when the patient was spoken to in German the patient squeezed his hand and desires aggressive treatment. The patient's neuro status is unchanged, totally unresponsive with occasional reflexive twitching of feet B/L. Follow-up with neurology Dr. Pack, guarding any further imaging studies. 11/13: No change in neuro exam. Palliative care following. Family wanting full aggressive care. Palliative care will address early trach PEG 11/14: No improvement in neuro status. Son has not made decisions regarding trach and PEG. Apparently he wants to wait longer to see any improvement 11/15: Remains unresponsive. Neuro exam with extensor posturing-unchanged. Son requesting aggressive care. Continues to have low-grade fever 11/16: Clinically no improvement. Tolerates CPAP. Unable to extubate as patient will not protect airway 11/17: Tolerating C Pap but no change in neuro exam. Hemoglobin noted to be 6.8 hemodynamically stable 11/18: Became tachycardic and hypotensive early a.m., placed on assist control. Otherwise neuro exam remains unchanged 11/19: Continues to spike fever Tmax 102, started on vancomycin and cefepime in addition to Levaquin yesterday. Currently only low-grade fever. Received 2 units of blood for hemoglobin of 5.3. CBC pending at this time. No improvement in neuro exam 11/20: White count is 18.3 today, MAXIMUM TEMPERATURE 103.1. Chest x-ray showing right sided infiltrate. Urine culture with gram-negative rods and Brionna albicans. ID consulted Diflucan added 11/21/16: Tmax 101.5. Bilateral lung infiltrates, R>L but slightly improved. No improvement in neuro exam. ID consulted and following. 11/22/16: No fever. CT chest- moderate to large R pleural effusion, bilateral lung infiltrates. ABX per ID. CXR today shows increasing bilateral infiltrates and effusion right more than left. Almost near complete infiltrates on the right lung [place]. Vaginally worsening creatinine today 1.45 indicating multiorgan failure 11/23/16: Hb 9.8 today after 2U PRBC yesterday. Plan for tracheostomy today. INR normal platelet count 116. Worsening creatinine today is 1.6. UO 550 ml in 24 hours. 1L NS bolus and 75 ml per hour maintenance NS. Started on Dopamine 3 mcg per min to maintain MAP>65 11/24 Patient is on ventilator via trach. Afebrile. On Dopamine 4 mics. 11/25 No acute events overnight. s/p EGD yesterday showed mild gastritis unable to place PEG tube endoscopically. Remains on Dopamine 4 mics. On no sedation unresponsive. 11/26 No acute events overnight. On CPAP with PS 20, PEEP: 5 and FIO2 40%. Afebrile. Off Dopamine. Afebrile. 11/27 Patient remains on ventilator via trach on no drips. Afebrile. For PEG tube placement by IR today. 11/28 Patient s/p PEG tube placement by IR yesterday, s/p Right thoracentesis with removal 700ml CXR showed better aeration of lungs, Hgb 6.7 this morning 2units PRBC ordered. Renal function worse with Cr: 3.40 from 2.85 . 11/29: Remains encephalopathic on mechanical ventilation via tracheostomy. 11/30: Remains encephalopathic on mechanical ventilation via tracheostomy. 12/01 Patient s/p transfusion 1unit PRBC last night for Hgb 5.8 in addition to 2L NS. Hgb 6.5 this morning. 12/02: Afebrile. The patient underwent CT-guided thoracentesis yesterday with approximately 600 cc removed. Chest x-ray pending this a.m.. Patient received packed red blood cell 2 units yesterday. Hemoglobin 7.4. Pending EGD today. 12/03:The patient underwent EGD yesterday with Dr. Farnsworth patient was noted to have a large active bleeding ulcer in the body of the stomach, multiple AVMs. Multiple ablations performed. This a.m. hemoglobin dropped to 6.1, platelet count 38. The patient was transfused 2 PRBC, and a unit of platelets. Patient still not relieved receiving any nutrition will begin PPN today. The patient continues to have copious amounts of melena with fecal incontinence apparatus in place. 12/04: The patient continues to have copious melena. PT INR drawn last evening INR was noted to be 13.5. The patient received KCentra, and current INR 1.3 the family requests aggressive measures to be continued. No further interventions from gastroenterology per . IR deemed the patient not a candidate for arteriography or endovascular treatment. 12/05: Patient's current medical status unchanged. Large tarry stools, acute blood loss anemia continues in conjunction with thrombocytopenia. During the night the nurse reported a malodorous scent was noted in free water flush container for instillation through G-tube. It was noted to be possibly fish oil , patient's son was in the room during that time. Container removed. The patient is noted to have a hemoglobin level of 5.8 today will receive 2 units of packed red blood cells and 1 unit of platelets today. 12/06: The patient continues to have copious melena. The patient received one 6 pack of platelets, and 2 units of blood yesterday. Tonight as reported by the nurse in the evening the son continue to utilize fish oil in the patient's free water, which was removed by the nurse. Ethics committee consult was initiated with Dr. Bauer yesterday, regarding assessing goals of care. 12/07: The patient's INR 1.3. Patient received 2 units of blood and one 6 pack of platelets yesterday. Awaiting ethics committee meeting with Dr. Bauer. The patient continues to require transfusions. 4/14: Patient was noted to have a drop in hemoglobin this a.m.. The patient is being transfused 2 units of PRBCs, with noted difficulty obtaining unit secondary to antibodies. Hematology will be consulted. Bioethics committee meeting planned to convene in one week, patient's son has agreed to attend. 12/09: Afebrile. No change in neuro status. Wound Care consult for left and blisters on back, orders provided. Hemoglobin stable post 2 units packed red blood cells yesterday. 12/10: The patient's hemoglobin 7.6 yesterday, hemoglobin pending for today. Overnight RN reported family member son continually putting some chemicals in the gastric tube of the patient, risk management notified. Hematology oncology has evaluated the patient, awaiting bioethics committee meeting scheduled for next week. The patient continues on PPN for nutritional support. 12/11 Patient remains on ventilator via trach on no sedation unresponsive. Afebrile.On Protonix drip and PPN. 12/12 No acute events overnight. Afebrile. Hgb 6.8 this morning 2 units PRBC ordered . 12/13 Patient remains on ventilator via trach, s/p transfusion 2units PRBC yesterday Hgb 9.1 this morning. Afebrile. On Protonix drip. 12/14 Patient s/p EGD yesterday which showed esophageal varices and hiatal hernia. On Ventilator via trach. H/H stable. On Protonix drip. 12/15 No acute events overnight. Afebrile. 12/16 Patient remains on ventilator via trach. Afebrile. Objective Vital Signs Date Time Temp Pulse Resp B/P Pulse Ox O2 Delivery O2 Flow Rate FiO2 12/16/16 06:00 80 12/16/16 04:13 97 30 12/16/16 04:00 98.1 20 125/58 Intake and Output 12/15/16 12/15/16 12/16/16 08:00 16:00 00:00 Intake Total 717 ml 761 ml 676 ml Output Total 300 ml 525 ml 300 ml Balance 417 ml 236 ml 376 ml Result Diagram: 12/16/16 0357 12/16/16 0357 Other Results Laboratory Tests Test 12/16/16 03:57 White Blood Count 5.7 TH/MM3 Red Blood Count 3.15 MIL/MM3 Hemoglobin 9.9 GM/DL Hematocrit 29.0 % Mean Corpuscular Volume 91.9 FL Mean Corpuscular Hemoglobin 31.3 PG Mean Corpuscular Hemoglobin 34.1 % Concent Red Cell Distribution Width 19.8 % Platelet Count 42 TH/MM3 Mean Platelet Volume 11.1 FL Neutrophils (%) (Auto) 74.1 % Lymphocytes (%) (Auto) 7.5 % Monocytes (%) (Auto) 4.9 % Eosinophils (%) (Auto) 13.0 % Basophils (%) (Auto) 0.5 % Neutrophils # (Auto) 4.2 TH/MM3 Lymphocytes # (Auto) 0.4 TH/MM3 Monocytes # (Auto) 0.3 TH/MM3 Eosinophils # (Auto) 0.7 TH/MM3 Basophils # (Auto) 0.0 TH/MM3 CBC Comment AUTO DIFF Differential Comment AUTO DIFF CONFIRMED Platelet Estimate LOW Platelet Morphology Comment NORMAL Tear Drop Cells 1+ Ovalocytes 1+ Sodium Level 141 MEQ/L Potassium Level 3.5 MEQ/L Chloride Level 107 MEQ/L Carbon Dioxide Level 23.5 MEQ/L Anion Gap 11 MEQ/L Blood Urea Nitrogen 111 MG/DL Creatinine 2.85 MG/DL Estimat Glomerular Filtration 16 ML/MIN Rate Random Glucose 207 MG/DL Calcium Level 8.4 MG/DL Imaging Last Impressions Chest X-Ray 12/15/16 0000 Signed Impressions: Service Date/Time: Thursday, December 15, 2016 10:46 - CONCLUSION: No appreciable change. Belkis Rodriguez MD Upper Extremity Ultrasound 12/14/16 0000 Signed Impressions: Service Date/Time: November 14:39 - CONCLUSION: Thrombus within the cephalic vein. Belkis Rodriguez MD Thoracentesis 12/01/16 0000 Signed Impressions: Service Date/Time: Thursday, December 01, 2016 18:56 - CONCLUSION: Uncomplicated CT-guided thoracentesis. Jeffery Alvarado MD Chest CT 12/01/16 0000 Signed Impressions: Service Date/Time: Thursday, December 01, 2016 13:09 - CONCLUSION: Bilateral pleural effusion, larger on the right than the left. Mack Cao MD FACR Abdomen/Pelvis CT 12/01/16 0000 Signed Impressions: Service Date/Time: Thursday, December 01, 2016 13:09 - CONCLUSION: 1. Right inguinal hernia containing only fluid. 2. Generalized anasarca. 3. Trace ascites. 4. Bilateral pleural effusions, larger on the right than the left. Mack Cao MD FACR Abdomen Ultrasound 11/27/16 0000 Signed Impressions: Service Date/Time: Sunday, November 27, 2016 08:35 - CONCLUSION: Stone in the neck of the gallbladder. Trace ascites and mild splenomegaly Jeffery Alvarado MD Gastrostomy Tube Placement 11/24/16 0000 Signed Impressions: Service Date/Time: Sunday, November 27, 2016 14:34 - CONCLUSION: Uncomplicated gastrostomy tube placement as above. Kirit Alcantar MD Head CT 11/08/16 1657 Signed Impressions: Service Date/Time: Tuesday, November 08, 2016 17:06 - CONCLUSION: Low density seen throughout the posterior circulation regions including the susan and midbrain, cerebellar hemispheres, occipital and posterior medial temporal lobes and right thalamus. This likely represents areas of infarction involving the posterior territory circulation. Jeffery Zhong MD Carotid Artery Ultrasound 11/08/16 0000 Signed Impressions: Service Date/Time: Tuesday, November 08, 2016 22:24 - CONCLUSION: Mild calcified plaque at the carotid bulbs. No evidence of hemodynamically significant carotid stenosis. José Luis Beltran MD Objective Remarks GENERAL: Patient is 86 yo on ventilator via trach. SKIN: Warm and dry. HEAD: Normocephalic. EYES: No scleral icterus. No injection or drainage. NECK: Supple, trachea midline. No JVD or lymphadenopathy. CARDIOVASCULAR: Regular rate and rhythm without murmurs, gallops, or rubs. RESPIRATORY: Breath sounds equal bilaterally. Few coarse BS. 8.0 trach in situ GASTROINTESTINAL: Abdomen soft, non-tender, nondistended. PEG in place MUSCULOSKELETAL: No cyanosis, peripheral 2+ edema bilateral upper extremities. Left heel gauze dressing Neuro: Positive corneal reflex. LIDYA. Negative cough. Negative gag. Extensor posturing in uppers. Downgoing Babinski. 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 She was last seen normal, nearly 24 hours, she was not a candidate for any interventional therapy. Unfortunately, given her age, and the extent of the stroke, her prognosis for any reasonable neurologic function is quite poor. Active GI bleed discussed with family, and patient's poor prognosis. Her family continues to express wishes for aggressive medical management. Bioethics has been consulted. Active problems: Massive posterior circulation ischemic CVA Hypoxic and hypercarbic respiratory failure Severe encephalopathy secondary to stroke Severe sepsis Healthcare associated pneumonia with pleural effusion Acute kidney injury UTI Anemia-acute and chronic Hyperglycemia of critical illness Thrombocytopenia Active GI bleed with AVM's Plan Neuro: Monitor neuro status per ICU protocol - Avoid sedatives. Neuro is following -11/08 CT brain: Low density seen throughout the posterior circulation regions including the susan and midbrain, cerebellar hemispheres, occipital and posterior medial temporal lobes and right thalamus. This likely represents areas of infarction involving the posterior territory circulation -GCS 3T, decerebrate posturing Resp: -Continue with vent support keep sat >92% Vent bundle, Head of bed 30, bronchodilators-scheduled -s/p trach 11/23, pulm toilet, trach care -SBT daily as lia. -s/p CT guided right thoracentesis 11/27 with removal 700ml clear fluid. CVS: Monitor HR and BP keep MAP>65mmhg 2-D echo -EF 5560 %, mild aortic mitral and tricuspid regurgitation, No RWMA. 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 --IR intervention-patient is not a candidate. Continue with Protonix drip. -s/p PEG tube placement by IR 11/27 , TF held (Jevity 1.5 with goal rate 45 ml/hr ) secondary to GI bleeding -s/p EGD 11/24 showed mild gastritis unable to place PEG tube endoscopically. -Monitor LFT's, US abdomen: Stone in neck of gall bladder, no hydronephrosis -12/01 CT abdomen/pelvis-generalized anasarca, trace ascites, bilateral pleural effusions right greater than left -Continue with TF- Jevity 1.5 advance to goal rate and wean off PPN. : -Monitor renal function, I/O's, electrolytes replacement as needed. Cr: 2.85 today from 2.62, UO: 1025 ml in 24 hrs -on Bumex 2mg IV BID. Renal is following- Dr. Zuniga ID: -Off abx per ID monitor for signs of infections ( Fever, WBC) -Urine culture 11/18/16 with Brionna albicans and E coli NOT S Levaquin, but S to zosyn -Infectious disease Dr. Wen, sputum cx 11/23: nl resp erica Heme Monitor CBC,s/p transfusion 2units PRBC. On Fe Sulfate 300mg BID Hematology is following-Dr. Alaniz. On Epogen M,W,F. Endo: --SSI ( low scale) for glycemic control Msk: --Red and sacral area, left heel wound --12/06 Wound care consulted --Specialty bed-Airflow Proph: Subcutaneous heparin on hold since 11/23 secondary to thrombocytopenia, anemia and GI bleed. SCDs for DVT prophylaxis Protonix for GI prophylaxis RUE US.Thrombus in cephalic veins not on AC due to GI bleed , anemia requiring blood transfusion and thrombocytopenia with PLT <50 Poor prognosis. -Palliative care is following. Plan for ethics meeting with son. IV access: Peripheral IV's Level 3 Kacy Ayala MD Dec 16, 2016 09:11
--- NOTE | 2016-12-16 12:01 | HHI.NPPN ---
Subjective History of Present Illness 86 year old with CVA, Resp failure s/p Trach/ PEG Additional Remarks Patient remains on the Vent, remain unresponsive, clinically same. Objective Data Data 12/15/16 12/16/16 19:00 07:00 Intake Total 761 ml 1344 ml Output Total 525 ml 550 ml Balance 236 ml 794 ml IV Total 180 ml 698 ml Tube Feeding 196 ml TPN/PPN 342 ml Lipid 80 ml Other 159 ml 450 ml Output Urine Total 475 ml 550 ml Stool Total 50 ml Vital Signs Date Time Temp Pulse Resp B/P Pulse Ox O2 Delivery O2 Flow Rate FiO2 12/16/16 07:55 96 30 12/16/16 06:00 80 12/16/16 04:13 97 30 12/16/16 04:00 30 12/16/16 04:00 80 12/16/16 04:00 98.1 80 20 125/58 98 12/16/16 02:00 73 12/16/16 00:57 95 30 12/16/16 00:00 71 12/16/16 00:00 98.4 71 20 115/57 95 12/16/16 00:00 30 12/15/16 22:00 70 12/15/16 20:15 95 30 12/15/16 20:00 66 12/15/16 20:00 98.2 66 20 136/62 94 12/15/16 20:00 30 12/15/16 16:40 96 30 12/15/16 16:00 98.2 65 18 109/62 97 12/15/16 16:00 65 12/15/16 16:00 30 12/15/16 14:00 65 12/15/16 12:12 100 30 -: 12/16/16 0357 12/16/16 0357 Physical Exam General Appearance: Pale Pulmonary Resp Exam: Decreased Bases Cardiology CV Exam: Regular Gastrointestinal/Abdomen GI Exam: Soft, Non-Tender Extremeties Extremities Exam: Moderate Edema Assessment/Plan Problem List: (1) Acute renal failure Plan: Patient has multiple issues and has malnutrition with poor albumin contributing to low oncotic pressure, ATN creatinine stable: 3.37 --> 3.05 --> 2.7 -->2.7 -->. 2.6 -->2.6 --> 2.6, now increase slightly 2.8. On Bumex 2 mg IV q12 - continue for now. Good UOP with 1.5 L/ 24 hours K replaced no meaningful recovery from CVA at this point Palliative care following. Apparently son would like to fly her to [place] for stem cell treatment. Continue to follow goals of care. 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 Ongoing anemia, continue to monitor. getting PRBC on regular interval agree with Palliative care ethics meeting with son as futile care with hopeless situation and no chance of meaningful recovery. Creatinine remain same. 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 Follow the urine out put and BMP. (2) Metabolic acidosis Plan: Stable, continue to monitor (3) Pneumonia Plan: On vent treated earlier with antibiotic (4) Urinary tract infection Plan: Escherichia coli she was treated (5) CVA (cerebral vascular accident) Plan: Massive stroke neurology following (6) Rhabdomyolysis Plan: This resolved (7) Hypernatremia Plan: Given 1L of DW over weekend improved Continue to monitor, repeat as necessary (8) Gastrointestinal hemorrhage Plan: Multiple PRBC given AVM poor prognosis Problem Qualifiers (1) Acute renal failure: Qualified Code: N17.9 - Acute renal failure, unspecified acute renal failure type (2) CVA (cerebral vascular accident): Qualified Code: I63.9 - Cerebrovascular accident (CVA), unspecified mechanism (3) Rhabdomyolysis: Qualified Code: M62.82 - Non-traumatic rhabdomyolysis Trae Rivera MD Dec 16, 2016 12:01
[2016-12-16] MEDS: PANTOPRAZOLE SODIUM 40 MG VIAL IV PUSH SCH ×2 (12:38→21:35)
[2016-12-16] MEDS ORDERED: CLINIMIX 4.25/5 (Cust.Renal Periph) 1000 mL- </= 42 mls/hr IV SCH ×8 (16:02)
[2016-12-17] VITALS (17 sets, daily range): BP systolic 102–136; BP diastolic 49–72; PULSE 60–92; RESP 14–18; TEMP 94.2–98.8; O2SAT 92–100
[2016-12-17] MEDS: INSULIN NovoLIN REGULAR SUPPLEMENTAL SCALE SQ SCH ×5 (02:00→20:50)
[2016-12-17] MEDS: CHLORHEXIDINE GLUCONATE 2 % 1 PACK (2 CLOTHS) TOP SCH (03:04)
[2016-12-17 05:29] LABS: BICARBONATE 23.1 MEQ/L (21.0-32.0); POTASSIUM 3.6 MEQ/L (3.5-5.1)
[2016-12-17 05:53] LABS: AUTOMATED NEUTROPHIL # 2.6 TH/MM3 (1.8-7.7); BASOPHIL % 0.8 % (0.0-2.0); EOSINOPHIL # 0.6 TH/MM3 (0-0.4); EOSINOPHIL % 12.7 % (0.0-4.0); HEMATOCRIT 26.4 % (35.0-46.0); LYMPH % 15.5 % (9.0-44.0); LYMPHOCYTE # 0.7 TH/MM3 (1.0-4.8); MEAN CELL VOLUME 94.3 FL (80.0-100.0); MEAN CORPUSCULAR HEMOGLOBIN 29.7 PG (27.0-34.0); MEAN CORPUSCULAR HGB CONC 31.5 % (32.0-36.0); MONO % 11.6 % (0.0-8.0); NEUT % 59.4 % (16.0-70.0); PLATELET COUNT 34 TH/MM3 (150-450); RED CELL DISTRIBUTION WIDTH 19.8 % (11.6-17.2); WHITE BLOOD COUNT 4.4 TH/MM3 (4.0-11.0)
[2016-12-17 06:31] LABS: HEMO FLAGS AUTO DIFF
[2016-12-17 08:00] LABS: BANDS 21 % (0-6); EOSINOPHILS 19 % (0-4); NEUTROPHIL # MANUAL DIFF 2.6 TH/MM3 (1.8-7.7); POLYS (SEG NEUTROPHILS) 38 % (16-70); WBC DIFF SAMPLE 100
[2016-12-17 08:02] LABS: PLATELET ESTIMATE SMEAR LOW (NORMAL)
[2016-12-17 08:04] LABS: HELMET CELLS OCC (NORMAL); KERATOCYTES OCC (NORMAL); PLATELET MORPHOLOGY NORMAL (NORMAL); TEARDROP RBCS 1+ (NORMAL)
[2016-12-17 08:05] LABS: SCAN/DIFF FINAL DIFF MANUAL
[2016-12-17] MEDS: BUMETANIDE INJ 1 MG/4 ML VIAL IV PUSH SCH (08:23)
[2016-12-17] MEDS: FERROUS SULFATE 300 MG /5ML UDC PO SCH ×2 (08:23→20:50)
[2016-12-17] MEDS: SODIUM CHLORIDE 0.9% FLUSH 5 ML FLUSH IV FLUSH SCH ×2 (08:23→20:50)
[2016-12-17] MEDS: CHLORHEXIDINE 0.12% (ORAL KIT) 15 ML CUP MT SCH ×2 (08:24→20:00)
[2016-12-17] MEDS: ARTIFICIAL TEARS OPTH SOLN 15 ML BTL EACH EYE SCH ×3 (08:25→16:45)
[2016-12-17] MEDS ORDERED: DEXTROSE 50% IN WATER 50 ML VIAL(D50) IV PUSH PRN (09:30)
[2016-12-17] MEDS ORDERED: GLUCAGON 1 MG/ML VIAL OTHER PRN (09:30)
--- NOTE | 2016-12-17 09:30 | HHI.CCPN ---
Subjective Remarks/Hospital Course This is an 86yF with per report no other past medical history who presented to the ER after she was found unresponsive in her bed. According to ER reports, her family saw her normal last night when she had a fall, with unknown LOC. At that point, he helped her back to bed. However, this morning she did not wake up. On arrival to the ER, she was unresponsive only withdrawing to pain. she was intubated for airway protection and a poor GCS. CT head demonstrated massive posterior-circulation ischemic stroke. The patient is currently intubated and unresponsive and cannot provide any additional history. 11/09: No acute changes overnight. Palliative care team has consult with the family regarding goals of care. Currently the patient's sedation fentanyl infusion has been turned off without any response from patient. The patient notably does withdrawal to pain. 11/10: No change in neurological status. [id number]. The patient withdraws to pain 4 extremities. The patient currently on no sedation, fentanyl infusion discontinued yesterday. Tube feeds were initiated. The patient's urine culture grew back Escherichia coli, the patient was started on antibiotics. Extensive discussion with son regarding patient's neurological status, son Wyatt has had extensive discussion with palliative care.The son feels that yesterday when the patient was spoken to in Hebrew the patient squeezed his hand and desires aggressive treatment. The patient's neuro status is unchanged, totally unresponsive with occasional reflexive twitching of feet B/L. Follow-up with neurology Dr. Pack, guarding any further imaging studies. 11/13: No change in neuro exam. Palliative care following. Family wanting full aggressive care. Palliative care will address early trach PEG 11/14: No improvement in neuro status. Son has not made decisions regarding trach and PEG. Apparently he wants to wait longer to see any improvement 11/15: Remains unresponsive. Neuro exam with extensor posturing-unchanged. Son requesting aggressive care. Continues to have low-grade fever 11/16: Clinically no improvement. Tolerates CPAP. Unable to extubate as patient will not protect airway 11/17: Tolerating C Pap but no change in neuro exam. Hemoglobin noted to be 6.8 hemodynamically stable 11/18: Became tachycardic and hypotensive early a.m., placed on assist control. Otherwise neuro exam remains unchanged 11/19: Continues to spike fever Tmax 102, started on vancomycin and cefepime in addition to Levaquin yesterday. Currently only low-grade fever. Received 2 units of blood for hemoglobin of 5.3. CBC pending at this time. No improvement in neuro exam 11/20: White count is 18.3 today, MAXIMUM TEMPERATURE 103.1. Chest x-ray showing right sided infiltrate. Urine culture with gram-negative rods and Brionna albicans. ID consulted Diflucan added 11/21/16: Tmax 101.5. Bilateral lung infiltrates, R>L but slightly improved. No improvement in neuro exam. ID consulted and following. 11/22/16: No fever. CT chest- moderate to large R pleural effusion, bilateral lung infiltrates. ABX per ID. CXR today shows increasing bilateral infiltrates and effusion right more than left. Almost near complete infiltrates on the right lung [place]. Vaginally worsening creatinine today 1.45 indicating multiorgan failure 11/23/16: Hb 9.8 today after 2U PRBC yesterday. Plan for tracheostomy today. INR normal platelet count 116. Worsening creatinine today is 1.6. UO 550 ml in 24 hours. 1L NS bolus and 75 ml per hour maintenance NS. Started on Dopamine 3 mcg per min to maintain MAP>65 11/24 Patient is on ventilator via trach. Afebrile. On Dopamine 4 mics. 11/25 No acute events overnight. s/p EGD yesterday showed mild gastritis unable to place PEG tube endoscopically. Remains on Dopamine 4 mics. On no sedation unresponsive. 11/26 No acute events overnight. On CPAP with PS 20, PEEP: 5 and FIO2 40%. Afebrile. Off Dopamine. Afebrile. 11/27 Patient remains on ventilator via trach on no drips. Afebrile. For PEG tube placement by IR today. 11/28 Patient s/p PEG tube placement by IR yesterday, s/p Right thoracentesis with removal 700ml CXR showed better aeration of lungs, Hgb 6.7 this morning 2units PRBC ordered. Renal function worse with Cr: 3.40 from 2.85 . 11/29: Remains encephalopathic on mechanical ventilation via tracheostomy. 11/30: Remains encephalopathic on mechanical ventilation via tracheostomy. 12/01 Patient s/p transfusion 1unit PRBC last night for Hgb 5.8 in addition to 2L NS. Hgb 6.5 this morning. 12/02: Afebrile. The patient underwent CT-guided thoracentesis yesterday with approximately 600 cc removed. Chest x-ray pending this a.m.. Patient received packed red blood cell 2 units yesterday. Hemoglobin 7.4. Pending EGD today. 12/03:The patient underwent EGD yesterday with Dr. Farnsworth patient was noted to have a large active bleeding ulcer in the body of the stomach, multiple AVMs. Multiple ablations performed. This a.m. hemoglobin dropped to 6.1, platelet count 38. The patient was transfused 2 PRBC, and a unit of platelets. Patient still not relieved receiving any nutrition will begin PPN today. The patient continues to have copious amounts of melena with fecal incontinence apparatus in place. 12/04: The patient continues to have copious melena. PT INR drawn last evening INR was noted to be 13.5. The patient received KCentra, and current INR 1.3 the family requests aggressive measures to be continued. No further interventions from gastroenterology per . IR deemed the patient not a candidate for arteriography or endovascular treatment. 12/05: Patient's current medical status unchanged. Large tarry stools, acute blood loss anemia continues in conjunction with thrombocytopenia. During the night the nurse reported a malodorous scent was noted in free water flush container for instillation through G-tube. It was noted to be possibly fish oil , patient's son was in the room during that time. Container removed. The patient is noted to have a hemoglobin level of 5.8 today will receive 2 units of packed red blood cells and 1 unit of platelets today. 12/06: The patient continues to have copious melena. The patient received one 6 pack of platelets, and 2 units of blood yesterday. Tonight as reported by the nurse in the evening the son continue to utilize fish oil in the patient's free water, which was removed by the nurse. Ethics committee consult was initiated with Dr. Bauer yesterday, regarding assessing goals of care. 12/07: The patient's INR 1.3. Patient received 2 units of blood and one 6 pack of platelets yesterday. Awaiting ethics committee meeting with Dr. Bauer. The patient continues to require transfusions. 4/14: Patient was noted to have a drop in hemoglobin this a.m.. The patient is being transfused 2 units of PRBCs, with noted difficulty obtaining unit secondary to antibodies. Hematology will be consulted. Bioethics committee meeting planned to convene in one week, patient's son has agreed to attend. 12/09: Afebrile. No change in neuro status. Wound Care consult for left and blisters on back, orders provided. Hemoglobin stable post 2 units packed red blood cells yesterday. 12/10: The patient's hemoglobin 7.6 yesterday, hemoglobin pending for today. Overnight RN reported family member son continually putting some chemicals in the gastric tube of the patient, risk management notified. Hematology oncology has evaluated the patient, awaiting bioethics committee meeting scheduled for next week. The patient continues on PPN for nutritional support. 12/11 Patient remains on ventilator via trach on no sedation unresponsive. Afebrile.On Protonix drip and PPN. 12/12 No acute events overnight. Afebrile. Hgb 6.8 this morning 2 units PRBC ordered . 12/13 Patient remains on ventilator via trach, s/p transfusion 2units PRBC yesterday Hgb 9.1 this morning. Afebrile. On Protonix drip. 12/14 Patient s/p EGD yesterday which showed esophageal varices and hiatal hernia. On Ventilator via trach. H/H stable. On Protonix drip. 12/15 No acute events overnight. Afebrile. 12/16 Patient remains on ventilator via trach. Afebrile. 12/17 No acute events overnight. Afebrile. Objective Vital Signs Date Time Temp Pulse Resp B/P Pulse Ox O2 Delivery O2 Flow Rate FiO2 12/17/16 08:15 96 30 12/17/16 06:00 65 12/17/16 04:00 97.6 18 106/49 Intake and Output 12/16/16 12/16/16 12/17/16 08:00 16:00 00:00 Intake Total 668 ml 680 ml 462 ml Output Total 250 ml 650 ml 275 ml Balance 418 ml 30 ml 187 ml Result Diagram: 12/17/16 0346 12/17/16 0346 Other Results Laboratory Tests Test 12/17/16 03:46 White Blood Count 4.4 TH/MM3 Red Blood Count 2.80 MIL/MM3 Hemoglobin 8.3 GM/DL Hematocrit 26.4 % Mean Corpuscular Volume 94.3 FL Mean Corpuscular Hemoglobin 29.7 PG Mean Corpuscular Hemoglobin 31.5 % Concent Red Cell Distribution Width 19.8 % Platelet Count 34 TH/MM3 Mean Platelet Volume 11.6 FL Neutrophils (%) (Auto) 59.4 % Lymphocytes (%) (Auto) 15.5 % Monocytes (%) (Auto) 11.6 % Eosinophils (%) (Auto) 12.7 % Basophils (%) (Auto) 0.8 % Neutrophils # (Auto) 2.6 TH/MM3 Lymphocytes # (Auto) 0.7 TH/MM3 Monocytes # (Auto) 0.5 TH/MM3 Eosinophils # (Auto) 0.6 TH/MM3 Basophils # (Auto) 0.0 TH/MM3 CBC Comment AUTO DIFF Differential Total Cells 100 Counted Neutrophils % (Manual) 38 % Band Neutrophils % 21 % Lymphocytes % 16 % Monocytes % 6 % Eosinophils % 19 % Neutrophils # (Manual) 2.6 TH/MM3 Differential Comment FINAL DIFF MANUAL Platelet Estimate LOW Platelet Morphology Comment NORMAL Tear Drop Cells 1+ Helmet Cells OCC Keratocytes OCC Sodium Level 143 MEQ/L Potassium Level 3.6 MEQ/L Chloride Level 108 MEQ/L Carbon Dioxide Level 23.1 MEQ/L Anion Gap 12 MEQ/L Blood Urea Nitrogen 113 MG/DL Creatinine 3.00 MG/DL Estimat Glomerular Filtration 15 ML/MIN Rate Random Glucose 263 MG/DL Calcium Level 8.6 MG/DL Imaging Last Impressions Chest X-Ray 12/15/16 0000 Signed Impressions: Service Date/Time: Thursday, December 15, 2016 10:46 - CONCLUSION: No appreciable change. Belkis Rodriguez MD Upper Extremity Ultrasound 12/14/16 0000 Signed Impressions: Service Date/Time: November 14:39 - CONCLUSION: Thrombus within the cephalic vein. Belkis Rodriguez MD Thoracentesis 12/01/16 0000 Signed Impressions: Service Date/Time: Thursday, December 01, 2016 18:56 - CONCLUSION: Uncomplicated CT-guided thoracentesis. Jeffery Alvarado MD Chest CT 12/01/16 0000 Signed Impressions: Service Date/Time: Thursday, December 01, 2016 13:09 - CONCLUSION: Bilateral pleural effusion, larger on the right than the left. Mack Cao MD FACR Abdomen/Pelvis CT 12/01/16 0000 Signed Impressions: Service Date/Time: Thursday, December 01, 2016 13:09 - CONCLUSION: 1. Right inguinal hernia containing only fluid. 2. Generalized anasarca. 3. Trace ascites. 4. Bilateral pleural effusions, larger on the right than the left. Mack Cao MD FACR Abdomen Ultrasound 11/27/16 0000 Signed Impressions: Service Date/Time: Sunday, November 27, 2016 08:35 - CONCLUSION: Stone in the neck of the gallbladder. Trace ascites and mild splenomegaly Jeffery Alvarado MD Gastrostomy Tube Placement 11/24/16 0000 Signed Impressions: Service Date/Time: Sunday, November 27, 2016 14:34 - CONCLUSION: Uncomplicated gastrostomy tube placement as above. Kirit Alcantar MD Head CT 11/08/16 1657 Signed Impressions: Service Date/Time: Tuesday, November 08, 2016 17:06 - CONCLUSION: Low density seen throughout the posterior circulation regions including the susan and midbrain, cerebellar hemispheres, occipital and posterior medial temporal lobes and right thalamus. This likely represents areas of infarction involving the posterior territory circulation. Jeffery Zhong MD Carotid Artery Ultrasound 11/08/16 0000 Signed Impressions: Service Date/Time: Tuesday, November 08, 2016 22:24 - CONCLUSION: Mild calcified plaque at the carotid bulbs. No evidence of hemodynamically significant carotid stenosis. José Luis Beltran MD Objective Remarks GENERAL: Patient is 86 yo on ventilator via trach. SKIN: Warm and dry. HEAD: Normocephalic. EYES: No scleral icterus. No injection or drainage. NECK: Supple, trachea midline. No JVD or lymphadenopathy. CARDIOVASCULAR: Regular rate and rhythm without murmurs, gallops, or rubs. RESPIRATORY: Breath sounds equal bilaterally. Few coarse BS. 8.0 trach in situ GASTROINTESTINAL: Abdomen soft, non-tender, nondistended. PEG in place MUSCULOSKELETAL: No cyanosis, peripheral 2+ edema bilateral upper extremities. Left heel gauze dressing Neuro: Positive corneal reflex. LIDYA. Negative cough. Negative gag. Extensor posturing in uppers. Downgoing Babinski. 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 She was last seen normal, nearly 24 hours, she was not a candidate for any interventional therapy. Unfortunately, given her age, and the extent of the stroke, her prognosis for any reasonable neurologic function is quite poor. Active GI bleed discussed with family, and patient's poor prognosis. Her family continues to express wishes for aggressive medical management. Bioethics has been consulted. Active problems: Massive posterior circulation ischemic CVA Hypoxic and hypercarbic respiratory failure Severe encephalopathy secondary to stroke Severe sepsis Healthcare associated pneumonia with pleural effusion Acute kidney injury UTI Anemia-acute and chronic Hyperglycemia of critical illness Thrombocytopenia Active GI bleed with AVM's Plan Neuro: Monitor neuro status per ICU protocol - Avoid sedatives. Neuro is following -11/08 CT brain: Low density seen throughout the posterior circulation regions including the susan and midbrain, cerebellar hemispheres, occipital and posterior medial temporal lobes and right thalamus. This likely represents areas of infarction involving the posterior territory circulation -GCS 3T, decerebrate posturing Resp: -Continue with vent support keep sat >92% Vent bundle, Head of bed 30, bronchodilators-scheduled -s/p trach 11/23, pulm toilet, trach care -SBT daily as lia. -s/p CT guided right thoracentesis 11/27 with removal 700ml clear fluid. CVS: Monitor HR and BP keep MAP>65mmhg 2-D echo -EF 5560 %, mild aortic mitral and tricuspid regurgitation, No RWMA. 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 --IR intervention-patient is not a candidate. Continue with Protonix drip. -s/p PEG tube placement by IR 11/27 , TF held (Jevity 1.5 with goal rate 45 ml/hr ) secondary to GI bleeding -s/p EGD 11/24 showed mild gastritis unable to place PEG tube endoscopically. -Monitor LFT's, US abdomen: Stone in neck of gall bladder, no hydronephrosis -12/01 CT abdomen/pelvis-generalized anasarca, trace ascites, bilateral pleural effusions right greater than left -Continue with TF- Jevity 1.5 @45mlhr, off PPN : -Monitor renal function, I/O's, electrolytes replacement as needed. Avoid nephrotoxins Cr: 3.0 today from 2.85 UO 825ml in 24 hrs d/c Bumex and place on NS@42ml/hr ID: -Off abx per ID monitor for signs of infections ( Fever, WBC) -Urine culture 11/18/16 with Brionna albicans and E coli NOT S Levaquin, but S to zosyn -Infectious disease Dr. Wen, sputum cx 11/23: nl resp erica Heme Monitor CBC,s/p transfusion 2units PRBC. On Fe Sulfate 300mg BID Hematology is following-Dr. Alaniz. On Epogen M,W,F. reconsult heme for worsening thrombocytopenia Check Hep PLt ab Endo: --Increase SSI to medium scale for glycemic control Msk: --Red and sacral area, left heel wound --12/06 Wound care consulted --Specialty bed-Airflow Proph: Subcutaneous heparin on hold since 11/23 secondary to thrombocytopenia, anemia and GI bleed. SCDs for DVT prophylaxis Protonix for GI prophylaxis RUE US.Thrombus in cephalic veins not on AC due to GI bleed , anemia requiring blood transfusion and thrombocytopenia with PLT <50 Poor prognosis. -Palliative care is following. Plan for ethics meeting with son. IV access: Peripheral IV's Level 3 Kacy Ayala MD Dec 17, 2016 09:30
[2016-12-17] MEDS: SODIUM CHLOR 0.9% 1000 ML INJ 1,000 ML IV SCH (09:46)
[2016-12-17] MEDS: PANTOPRAZOLE SODIUM 40 MG VIAL IV PUSH SCH (09:49)
--- NOTE | 2016-12-17 10:20 | HHI.GIFU ---
Subjective Remarks Nursing staff reported pt had about 300cc of melanotic stool output yesterday No red blood reported Pt otherwise is stable. Tolerating TF at goal rate of 45mL/hr (Daija [place]) Objective Vitals I&O Vital Signs Date Time Temp Pulse Resp B/P Pulse Ox O2 Delivery O2 Flow Rate FiO2 12/17/16 08:15 96 30 12/17/16 08:15 30 12/17/16 08:02 95 30 12/17/16 06:00 65 12/17/16 04:12 100 30 12/17/16 04:00 97.6 64 18 106/49 95 12/17/16 04:00 30 12/17/16 04:00 64 12/17/16 02:00 65 12/17/16 01:02 95 30 12/17/16 00:00 70 12/17/16 00:00 30 12/17/16 00:00 97.7 70 18 114/56 97 12/16/16 22:00 68 12/16/16 20:29 98 30 12/16/16 20:00 78 12/16/16 20:00 30 12/16/16 20:00 97.5 78 18 117/55 96 12/16/16 16:00 30 12/16/16 16:00 97.5 73 18 105/52 97 12/16/16 12:00 30 12/16/16 12:00 97.7 70 20 111/52 94 I/O 12/16/16 12/16/16 12/16/16 12/17/16 12/17/16 12/17/16 07:00 15:00 23:00 07:00 15:00 23:00 Intake Total 668 ml 680 ml 462 ml 278 ml Output Total 250 ml 650 ml 275 ml 200 ml Balance 418 ml 30 ml 187 ml 78 ml IV Total 468 ml 200 ml Tube Feeding 380 ml 362 ml 278 ml Tube Irrigant 100 ml 100 ml Other 200 ml Output Urine Total 250 ml 350 ml 275 ml 200 ml Stool Total 300 ml Laboratory Laboratory Tests Test 12/17/16 03:46 White Blood Count 4.4 Red Blood Count 2.80 Hemoglobin 8.3 Hematocrit 26.4 Mean Corpuscular Volume 94.3 Mean Corpuscular Hemoglobin 29.7 Mean Corpuscular Hemoglobin 31.5 Concent Red Cell Distribution Width 19.8 Platelet Count 34 Mean Platelet Volume 11.6 Neutrophils (%) (Auto) 59.4 Lymphocytes (%) (Auto) 15.5 Monocytes (%) (Auto) 11.6 Eosinophils (%) (Auto) 12.7 Basophils (%) (Auto) 0.8 Neutrophils # (Auto) 2.6 Lymphocytes # (Auto) 0.7 Monocytes # (Auto) 0.5 Eosinophils # (Auto) 0.6 Basophils # (Auto) 0.0 CBC Comment AUTO DIFF Differential Total Cells 100 Counted Neutrophils % (Manual) 38 Band Neutrophils % 21 Lymphocytes % 16 Monocytes % 6 Eosinophils % 19 Neutrophils # (Manual) 2.6 Differential Comment FINAL DIFF MANUAL Platelet Estimate LOW Platelet Morphology Comment NORMAL Tear Drop Cells 1+ Helmet Cells OCC Keratocytes OCC Sodium Level 143 Potassium Level 3.6 Chloride Level 108 Carbon Dioxide Level 23.1 Anion Gap 12 Blood Urea Nitrogen 113 Creatinine 3.00 Estimat Glomerular Filtration 15 Rate Random Glucose 263 Calcium Level 8.6 Imaging Last Impressions Chest X-Ray 12/15/16 0000 Signed Impressions: Service Date/Time: Thursday, December 15, 2016 10:46 - CONCLUSION: No appreciable change. Belkis Rodriguez MD Upper Extremity Ultrasound 12/14/16 0000 Signed Impressions: Service Date/Time: November 14:39 - CONCLUSION: Thrombus within the cephalic vein. Belkis Rodriguez MD Thoracentesis 12/01/16 0000 Signed Impressions: Service Date/Time: Thursday, December 01, 2016 18:56 - CONCLUSION: Uncomplicated CT-guided thoracentesis. Jeffery Alvarado MD Chest CT 12/01/16 0000 Signed Impressions: Service Date/Time: Thursday, December 01, 2016 13:09 - CONCLUSION: Bilateral pleural effusion, larger on the right than the left. Mack Cao MD FACR Abdomen/Pelvis CT 12/01/16 0000 Signed Impressions: Service Date/Time: Thursday, December 01, 2016 13:09 - CONCLUSION: 1. Right inguinal hernia containing only fluid. 2. Generalized anasarca. 3. Trace ascites. 4. Bilateral pleural effusions, larger on the right than the left. Mack Cao MD FACR Abdomen Ultrasound 11/27/16 0000 Signed Impressions: Service Date/Time: Sunday, November 27, 2016 08:35 - CONCLUSION: Stone in the neck of the gallbladder. Trace ascites and mild splenomegaly Jeffery Alvarado MD Gastrostomy Tube Placement 11/24/16 0000 Signed Impressions: Service Date/Time: Sunday, November 27, 2016 14:34 - CONCLUSION: Uncomplicated gastrostomy tube placement as above. Kirit Alcantar MD Head CT 11/08/16 1657 Signed Impressions: Service Date/Time: Tuesday, November 08, 2016 17:06 - CONCLUSION: Low density seen throughout the posterior circulation regions including the susan and midbrain, cerebellar hemispheres, occipital and posterior medial temporal lobes and right thalamus. This likely represents areas of infarction involving the posterior territory circulation. Jeffery Zhong MD Carotid Artery Ultrasound 11/08/16 0000 Signed Impressions: Service Date/Time: Tuesday, November 08, 2016 22:24 - CONCLUSION: Mild calcified plaque at the carotid bulbs. No evidence of hemodynamically significant carotid stenosis. José Luis Beltran MD Physical Exam HEENT: Normocephalic; atraumatic; no jaundice. CHEST: Trach. Course breath sounds. CARDIAC: RRR ABDOMEN: +BS, soft, nondistended, no hepatosplenomegaly; PEG tube with TF at 45cc/hr EXTREMITIES: Generalized edema. SKIN: Generalized pallor REFRESH TECHNICIAN: Obtunded on vent (Daija [place]) Assessment and Plan Plan ASSESSMENT: - GIB/anemia with drop in hgb. 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 She has received 17 units of PRBC and 2 unit of Plt. She continues to have coffee ground gastric secretions and melena. IR does not think patient is a candidate for embolization per Dr. Farnsworth. Not a surgical candidate. S/P Rpt. EGD for control of bleeding (12/14/16)---> 1. 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 Retroflexed views revealed a hiatal hernia. Pt had about 300cc of melanotic stool yesterday. Pt tolerating TF at goal rate of 45mL/hr. Protonix Gtt. HH 8.3/26.4 - Large gastric ulcer, multiple duodenal avms. S/P Ablation. Not a candidate for embolization/surgery. S/P rpt EGD for control of bleeding (12/14/16)---> 1. 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 Retroflexed views revealed a hiatal hernia. Protonix gtt. HH 8.3/.4 - Anemia secondary to acute blood loss. S/P 17 units PRBC, 2 PLT. HH 8.3.4 - Dysphagia, FEN. Pt currently in ICU being treated for massive posterior circulation ischemic CVA and she remains in the ICU being treated for hypoxic respiratory failure, severe encephalopathy secondary to stroke, severe sepsis, HCAP with pleural effusion, and acute kidney injury. She is S/P tracheostomy. Had PEG tube placement by IR on 11/27. - Severe Encephalopathy/CVA. Per CCM - Resp. Failure, HCAP, Pleural effusion per CCM - BRIANA with electrolyte abnormalities. PLAN: - Jevity 1.5 at GR 45cc/hr - Protonix 40mg IV BID - Monitor HH - Transfuse as necessary - Unable to have embolization by IR - Supportive care - Pt seen and examined by Dr. Prince and myself and this note is written on her behalf (Daija [place]) Physician Comments seen, examined agree with above patient has esophageal varices, GAVE indicating portal hypertension if recurrent bleeding repeat egd with apc patients family was advised about fish oil increased risk of bleeding extremely strong smell of fish oil coming from patient-as per nursing staff family gving fish oil to patient, in spite of being told not to do that vit k repeat hb at 6 pm if under 8 transfuse 1 unit of prbc (Margoth Prince MD) Daija [place] Dec 17, 2016 10:20 Margoth Prince MD Dec 17, 2016 16:25
--- NOTE | 2016-12-17 13:48 | HHI.NPPN ---
Subjective History of Present Illness 86 year old with CVA, Resp failure s/p Trach/ PEG Additional Remarks Patient remains on the Vent, remain unresponsive. Objective Data Data 12/16/16 12/17/16 19:00 07:00 Intake Total 680 ml 740 ml Output Total 650 ml 475 ml Balance 30 ml 265 ml IV Total 200 ml Tube Feeding 380 ml 640 ml Tube Irrigant 100 ml 100 ml Output Urine Total 350 ml 475 ml Stool Total 300 ml Vital Signs Date Time Temp Pulse Resp B/P Pulse Ox O2 Delivery O2 Flow Rate FiO2 12/17/16 11:25 96 30 12/17/16 08:15 96 30 12/17/16 08:15 30 12/17/16 08:02 95 30 12/17/16 06:00 65 12/17/16 04:12 100 30 12/17/16 04:00 97.6 64 18 106/49 95 12/17/16 04:00 30 12/17/16 04:00 64 12/17/16 02:00 65 12/17/16 01:02 95 30 12/17/16 00:00 70 12/17/16 00:00 30 12/17/16 00:00 97.7 70 18 114/56 97 12/16/16 22:00 68 12/16/16 20:29 98 30 12/16/16 20:00 78 12/16/16 20:00 30 12/16/16 20:00 97.5 78 18 117/55 96 12/16/16 16:00 30 12/16/16 16:00 97.5 73 18 105/52 97 -: 12/17/16 0346 12/17/16 0346 Physical Exam General Appearance: Pale Pulmonary Resp Exam: Decreased Bases Cardiology CV Exam: Regular Gastrointestinal/Abdomen GI Exam: Soft, Non-Tender Extremeties Extremities Exam: Moderate Edema Assessment/Plan Problem List: (1) Acute renal failure Plan: Patient has multiple issues and has malnutrition with poor albumin contributing to low oncotic pressure, ATN creatinine stable: 3.37 --> 3.05 --> 2.7 -->2.7 -->. 2.6 -->2.6 --> 2.6, now increase slightly 2.8. On Bumex 2 mg IV q12 - continue for now. Good UOP with 1.5 L/ 24 hours K replaced no meaningful recovery from CVA at this point Palliative care following. Apparently son would like to fly her to [place] for stem cell treatment. Continue to follow goals of care. 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 Ongoing anemia, continue to monitor. getting PRBC on regular interval agree with Palliative care ethics meeting with son as futile care with hopeless situation and no chance of meaningful recovery. Creatinine remain same. Patient has BRIANA and not a candidate for fdc HD. Has slight increase in Creatinine. Bumex stopped and started gentle Hydration. Dr. Zuniga will follow in AM. (2) Metabolic acidosis Plan: Stable, continue to monitor (3) Pneumonia Plan: On vent treated earlier with antibiotic (4) Urinary tract infection Plan: Escherichia coli she was treated (5) CVA (cerebral vascular accident) Plan: Massive stroke neurology following (6) Rhabdomyolysis Plan: This resolved (7) Hypernatremia Plan: Given 1L of DW over weekend improved Continue to monitor, repeat as necessary (8) Gastrointestinal hemorrhage Plan: Multiple PRBC given AVM poor prognosis Problem Qualifiers (1) Acute renal failure: Qualified Code: N17.9 - Acute renal failure, unspecified acute renal failure type (2) CVA (cerebral vascular accident): Qualified Code: I63.9 - Cerebrovascular accident (CVA), unspecified mechanism (3) Rhabdomyolysis: Qualified Code: M62.82 - Non-traumatic rhabdomyolysis Trae Rivera MD Dec 17, 2016 13:48
--- NOTE | 2016-12-17 15:45 | PD.ONC.PN ---
Subjective Subjective Remarks I been asked to see this lady for evaluation of thrombocytopenia. She had previously been seen by my associate Dr. Alaniz for anemia. Chief complaint: Patient is nonresponsive, she is on ventilator support through a tracheostomy. Her platelet counts were noted to be 35,000 today, there is no overt bleeding. Objective Data Date Time Temp Pulse Resp B/P Pulse Ox O2 Delivery O2 Flow Rate FiO2 12/17/16 14:11 95 30 12/17/16 11:25 96 30 12/17/16 08:15 96 30 12/17/16 08:15 30 12/17/16 08:02 95 30 12/17/16 06:00 65 12/17/16 04:12 100 30 12/17/16 04:00 97.6 64 18 106/49 95 12/17/16 04:00 30 12/17/16 04:00 64 12/17/16 02:00 65 12/17/16 01:02 95 30 12/17/16 00:00 70 12/17/16 00:00 30 12/17/16 00:00 97.7 70 18 114/56 97 12/16/16 22:00 68 12/16/16 20:29 98 30 12/16/16 20:00 78 12/16/16 20:00 30 12/16/16 20:00 97.5 78 18 117/55 96 12/16/16 16:00 30 12/16/16 16:00 97.5 73 18 105/52 97 12/17/16 12/17/16 12/17/16 07:00 15:00 23:00 Intake Total 278 ml Output Total 200 ml Balance 78 ml Result Diagram: 12/17/16 0346 12/17/16 0346 Laboratory Results Laboratory Tests Test 12/17/16 03:46 White Blood Count 4.4 TH/MM3 Red Blood Count 2.80 MIL/MM3 Hemoglobin 8.3 GM/DL Hematocrit 26.4 % Mean Corpuscular Volume 94.3 FL Mean Corpuscular Hemoglobin 29.7 PG Mean Corpuscular Hemoglobin 31.5 % Concent Red Cell Distribution Width 19.8 % Platelet Count 34 TH/MM3 Mean Platelet Volume 11.6 FL Neutrophils (%) (Auto) 59.4 % Lymphocytes (%) (Auto) 15.5 % Monocytes (%) (Auto) 11.6 % Eosinophils (%) (Auto) 12.7 % Basophils (%) (Auto) 0.8 % Neutrophils # (Auto) 2.6 TH/MM3 Lymphocytes # (Auto) 0.7 TH/MM3 Monocytes # (Auto) 0.5 TH/MM3 Eosinophils # (Auto) 0.6 TH/MM3 Basophils # (Auto) 0.0 TH/MM3 CBC Comment AUTO DIFF Differential Total Cells 100 Counted Neutrophils % (Manual) 38 % Band Neutrophils % 21 % Lymphocytes % 16 % Monocytes % 6 % Eosinophils % 19 % Neutrophils # (Manual) 2.6 TH/MM3 Differential Comment FINAL DIFF MANUAL Platelet Estimate LOW Platelet Morphology Comment NORMAL Tear Drop Cells 1+ Helmet Cells OCC Keratocytes OCC Sodium Level 143 MEQ/L Potassium Level 3.6 MEQ/L Chloride Level 108 MEQ/L Carbon Dioxide Level 23.1 MEQ/L Anion Gap 12 MEQ/L Blood Urea Nitrogen 113 MG/DL Creatinine 3.00 MG/DL Estimat Glomerular Filtration 15 ML/MIN Rate Random Glucose 263 MG/DL Calcium Level 8.6 MG/DL Administered Medications Medications (Trade) Dose Ordered Sig/Swati Route PRN Reason Start Time Stop Time Status Last Admin Dose Admin Chlorhexidine Gluconate (Peridex 0.12% Liq) 15 ml BID@08,20 MT 11/08/16 20:00 12/17/16 08:24 IV Flush (NS Flush) 2 ml BID IV FLUSH 11/08/16 21:00 12/17/16 08:23 Ondansetron HCl (Zofran Inj) 4 mg Q6H PRN IV NAUSEA OR VOMITING 11/08/16 19:45 11/30/16 21:43 Heparin Sodium (Porcine) (Heparin Inj) 5,000 units Q12H SQ 11/08/16 20:00 Hold 11/23/16 20:02 Chlorhexidine Gluconate (Chlorhexidine 2% Cloth) 3 pack Taper DAILY@04 TOP 11/09/16 04:00 11/05/17 03:59 12/17/16 03:04 Artificial Tears (Tears Naturale Opth Soln) 1 drop TID EACH EYE 11/09/16 18:00 12/17/16 08:25 Ferrous Sulfate (Ferrous Sulfate Liq) 300 mg BID PO 11/11/16 09:00 12/17/16 08:23 Epoetin Ty (Epogen Inj) 10,000 units MoWeFr SQ 11/13/16 06:00 12/15/16 06:32 Acetaminophen (Tylenol 650 Mg/ 20 ml Liq) 650 mg Q4H PRN OG-TUBE TEMP>101 11/12/16 17:00 11/21/16 04:43 Hyoscyamine Sulfate (Levsin Liq) 0.25 mg Q6H PRN PO ORAL SECRETIONS 11/30/16 16:00 12/05/16 09:19 Pantoprazole Sodium 40 mg 40 mg Q12H IV PUSH 12/15/16 11:00 12/17/16 09:49 Sodium Chloride (NS 1000 ml Inj) 1,000 ml @ 42 mls/hr [id number] IV 12/17/16 09:30 12/17/16 09:46 Objective Remarks GENERAL: Elderly lady, laying in bed, nonresponsive, has a tracheostomy. SKIN: Warm and dry. Anasarca. HEAD: Normocephalic. EYES: Subconjunctival hemorrhages bilaterally, pupils are nonresponsive and seem to be fixed. NECK: Supple, trachea midline. No JVD or lymphadenopathy. Tracheostomy. LYMPHATIC: No adenopathy. CARDIOVASCULAR: Regular rate and rhythm, S1 and S2. RESPIRATORY: Coarse breath sounds, decreased bibasilar breath sounds. GASTROINTESTINAL: Distended and protuberant belly, no obvious tenderness, positive bowel sounds. EXTREMITIES: Generalized anasarca. MUSCULOSKELETAL: Decreased muscle mass. NEUROLOGICAL: Nonresponsive, moves her right lower extremity spontaneously. PSYCHIATRIC: Appropriate mood and affect; insight and judgment normal. Assessment/Plan Assessment 86y/o female critically ill with poor prognosis following a large stroke some weeks ago. Hematology consulted for anemia secondary to GIB/acute illness with underlying coagulopathy and thrombocytopenia. Plan 1. Thrombocytopenia: Likely multifactorial secondary to consumption due to peripheral consumptive coagulopathy, multiple medications, critical illness. HIT antibody is pending. I would recommend no specific therapeutic interventions at this time, should she show evidence of bleeding I would transfuse platelets if that is what her healthcare surrogates desire. Unfortunately, it appears her overall prognosis is quite poor. Palliative care service is involved. Jerrell Zuniga MD Dec 17, 2016 15:45
[2016-12-17] MEDS ORDERED: PHYTONADIONE 10 MG/ML VIAL SQ ONE (16:30)
[2016-12-17 18:54] LABS: HEMATOCRIT 27.7 % (35.0-46.0)
[2016-12-17 18:55] LABS: REVIEW FLAG FINAL
[2016-12-18] VITALS (19 sets, daily range): BP systolic 13–137; BP diastolic 55–69; PULSE 74–88; RESP 13–14; TEMP 98.3–99.1; O2SAT 92–99
[2016-12-18] MEDS: PANTOPRAZOLE SODIUM 40 MG VIAL IV PUSH SCH ×3 (01:00→23:17)
[2016-12-18] MEDS: INSULIN NovoLIN REGULAR SUPPLEMENTAL SCALE SQ SCH ×4 (03:30→21:30)
[2016-12-18] MEDS: CHLORHEXIDINE GLUCONATE 2 % 1 PACK (2 CLOTHS) TOP SCH (04:00)
[2016-12-18] MEDS ORDERED: PROPOFOL 1000 MG/100 ML INJ 100 ML ONE (04:57)
[2016-12-18] MEDS ORDERED: ROCURONIUM INJ 50 MG/5 ML VIAL ONE (04:57)
[2016-12-18] MEDS ORDERED: ETOMIDATE 40 MG/20 ML VIAL ONE (04:57)
[2016-12-18 05:41] LABS: HEMATOCRIT 26.3 % (35.0-46.0); MEAN CELL VOLUME 91.8 FL (80.0-100.0); MEAN CORPUSCULAR HGB CONC 31.6 % (32.0-36.0); PLATELET COUNT 40 TH/MM3 (150-450); RED BLOOD COUNT 2.86 MIL/MM3 (4.00-5.30); RED CELL DISTRIBUTION WIDTH 19.2 % (11.6-17.2)
[2016-12-18 05:45] LABS: HEMO FLAGS AUTO DIFF
[2016-12-18 06:18] LABS: BICARBONATE 23.6 MEQ/L (21.0-32.0); POTASSIUM 3.9 MEQ/L (3.5-5.1)
--- NOTE | 2016-12-18 07:20 | HHI.CCPN ---
Subjective Remarks/Hospital Course This is an 86yF with per report no other past medical history who presented to the ER after she was found unresponsive in her bed. According to ER reports, her family saw her normal last night when she had a fall, with unknown LOC. At that point, he helped her back to bed. However, this morning she did not wake up. On arrival to the ER, she was unresponsive only withdrawing to pain. she was intubated for airway protection and a poor GCS. CT head demonstrated massive posterior-circulation ischemic stroke. The patient is currently intubated and unresponsive and cannot provide any additional history. 11/09: No acute changes overnight. Palliative care team has consult with the family regarding goals of care. Currently the patient's sedation fentanyl infusion has been turned off without any response from patient. The patient notably does withdrawal to pain. 11/10: No change in neurological status. [id number]. The patient withdraws to pain 4 extremities. The patient currently on no sedation, fentanyl infusion discontinued yesterday. Tube feeds were initiated. The patient's urine culture grew back Escherichia coli, the patient was started on antibiotics. Extensive discussion with son regarding patient's neurological status, son Wyatt has had extensive discussion with palliative care.The son feels that yesterday when the patient was spoken to in [place] the patient squeezed his hand and desires aggressive treatment. The patient's neuro status is unchanged, totally unresponsive with occasional reflexive twitching of feet B/L. Follow-up with neurology Dr. Pack, guarding any further imaging studies. 11/13: No change in neuro exam. Palliative care following. Family wanting full aggressive care. Palliative care will address early trach PEG 11/14: No improvement in neuro status. Son has not made decisions regarding trach and PEG. Apparently he wants to wait longer to see any improvement 11/15: Remains unresponsive. Neuro exam with extensor posturing-unchanged. Son requesting aggressive care. Continues to have low-grade fever 11/16: Clinically no improvement. Tolerates CPAP. Unable to extubate as patient will not protect airway 11/17: Tolerating C Pap but no change in neuro exam. Hemoglobin noted to be 6.8 hemodynamically stable 11/18: Became tachycardic and hypotensive early a.m., placed on assist control. Otherwise neuro exam remains unchanged 11/19: Continues to spike fever Tmax 102, started on vancomycin and cefepime in addition to Levaquin yesterday. Currently only low-grade fever. Received 2 units of blood for hemoglobin of 5.3. CBC pending at this time. No improvement in neuro exam 11/20: White count is 18.3 today, MAXIMUM TEMPERATURE 103.1. Chest x-ray showing right sided infiltrate. Urine culture with gram-negative rods and Brionna albicans. ID consulted Diflucan added 11/21/16: Tmax 101.5. Bilateral lung infiltrates, R>L but slightly improved. No improvement in neuro exam. ID consulted and following. 11/22/16: No fever. CT chest- moderate to large R pleural effusion, bilateral lung infiltrates. ABX per ID. CXR today shows increasing bilateral infiltrates and effusion right more than left. Almost near complete infiltrates on the right lung [place]. Vaginally worsening creatinine today 1.45 indicating multiorgan failure 11/23/16: Hb 9.8 today after 2U PRBC yesterday. Plan for tracheostomy today. INR normal platelet count 116. Worsening creatinine today is 1.6. UO 550 ml in 24 hours. 1L NS bolus and 75 ml per hour maintenance NS. Started on Dopamine 3 mcg per min to maintain MAP>65 11/24 Patient is on ventilator via trach. Afebrile. On Dopamine 4 mics. 11/25 No acute events overnight. s/p EGD yesterday showed mild gastritis unable to place PEG tube endoscopically. Remains on Dopamine 4 mics. On no sedation unresponsive. 11/26 No acute events overnight. On CPAP with PS 20, PEEP: 5 and FIO2 40%. Afebrile. Off Dopamine. Afebrile. 11/27 Patient remains on ventilator via trach on no drips. Afebrile. For PEG tube placement by IR today. 11/28 Patient s/p PEG tube placement by IR yesterday, s/p Right thoracentesis with removal 700ml CXR showed better aeration of lungs, Hgb 6.7 this morning 2units PRBC ordered. Renal function worse with Cr: 3.40 from 2.85 . 11/29: Remains encephalopathic on mechanical ventilation via tracheostomy. 11/30: Remains encephalopathic on mechanical ventilation via tracheostomy. 12/01 Patient s/p transfusion 1unit PRBC last night for Hgb 5.8 in addition to 2L NS. Hgb 6.5 this morning. 12/02: Afebrile. The patient underwent CT-guided thoracentesis yesterday with approximately 600 cc removed. Chest x-ray pending this a.m.. Patient received packed red blood cell 2 units yesterday. Hemoglobin 7.4. Pending EGD today. 12/03:The patient underwent EGD yesterday with Dr. Farnsworth patient was noted to have a large active bleeding ulcer in the body of the stomach, multiple AVMs. Multiple ablations performed. This a.m. hemoglobin dropped to 6.1, platelet count 38. The patient was transfused 2 PRBC, and a unit of platelets. Patient still not relieved receiving any nutrition will begin PPN today. The patient continues to have copious amounts of melena with fecal incontinence apparatus in place. 12/04: The patient continues to have copious melena. PT INR drawn last evening INR was noted to be 13.5. The patient received KCentra, and current INR 1.3 the family requests aggressive measures to be continued. No further interventions from gastroenterology per . IR deemed the patient not a candidate for arteriography or endovascular treatment. 12/05: Patient's current medical status unchanged. Large tarry stools, acute blood loss anemia continues in conjunction with thrombocytopenia. During the night the nurse reported a malodorous scent was noted in free water flush container for instillation through G-tube. It was noted to be possibly fish oil , patient's son was in the room during that time. Container removed. The patient is noted to have a hemoglobin level of 5.8 today will receive 2 units of packed red blood cells and 1 unit of platelets today. 12/06: The patient continues to have copious melena. The patient received one 6 pack of platelets, and 2 units of blood yesterday. Tonight as reported by the nurse in the evening the son continue to utilize fish oil in the patient's free water, which was removed by the nurse. Ethics committee consult was initiated with Dr. Bauer yesterday, regarding assessing goals of care. 12/07: The patient's INR 1.3. Patient received 2 units of blood and one 6 pack of platelets yesterday. Awaiting ethics committee meeting with Dr. Bauer. The patient continues to require transfusions. 4/14: Patient was noted to have a drop in hemoglobin this a.m.. The patient is being transfused 2 units of PRBCs, with noted difficulty obtaining unit secondary to antibodies. Hematology will be consulted. Bioethics committee meeting planned to convene in one week, patient's son has agreed to attend. 12/09: Afebrile. No change in neuro status. Wound Care consult for left and blisters on back, orders provided. Hemoglobin stable post 2 units packed red blood cells yesterday. 12/10: The patient's hemoglobin 7.6 yesterday, hemoglobin pending for today. Overnight RN reported family member son continually putting some chemicals in the gastric tube of the patient, risk management notified. Hematology oncology has evaluated the patient, awaiting bioethics committee meeting scheduled for next week. The patient continues on PPN for nutritional support. 12/11 Patient remains on ventilator via trach on no sedation unresponsive. Afebrile.On Protonix drip and PPN. 12/12 No acute events overnight. Afebrile. Hgb 6.8 this morning 2 units PRBC ordered . 12/13 Patient remains on ventilator via trach, s/p transfusion 2units PRBC yesterday Hgb 9.1 this morning. Afebrile. On Protonix drip. 12/14 Patient s/p EGD yesterday which showed esophageal varices and hiatal hernia. On Ventilator via trach. H/H stable. On Protonix drip. 12/15 No acute events overnight. Afebrile. 12/16 Patient remains on ventilator via trach. Afebrile. 12/17 No acute events overnight. Afebrile. 12/18 Patient remains on ventilator via trach. Afebrile. Renal function continue to decline with Cr: 3.2 today from 3.0 with UO 805ml in 24 hrs. Afebrile. Objective Vital Signs Date Time Temp Pulse Resp B/P Pulse Ox O2 Delivery O2 Flow Rate FiO2 12/18/16 06:00 81 12/18/16 04:06 95 30 12/18/16 04:00 99.1 131/60 12/17/16 16:00 14 Intake and Output 12/17/16 12/17/16 12/18/16 08:00 16:00 00:00 Intake Total 278 ml 620 ml 845 ml Output Total 200 ml 175 ml 320 ml Balance 78 ml 445 ml 525 ml Result Diagram: 12/18/16 0511 12/18/16 0510 Other Results Laboratory Tests Test 12/17/16 12/18/16 12/18/16 18:30 05:10 05:11 Hemoglobin 9.0 GM/DL 8.3 GM/DL Hematocrit 27.7 % 26.3 % Sodium Level 143 MEQ/L Potassium Level 3.9 MEQ/L Chloride Level 109 MEQ/L Carbon Dioxide Level 23.6 MEQ/L Anion Gap 10 MEQ/L Blood Urea Nitrogen 117 MG/DL Creatinine 3.20 MG/DL Estimat Glomerular Filtration 14 ML/MIN Rate Random Glucose 312 MG/DL Calcium Level 8.4 MG/DL White Blood Count 6.0 TH/MM3 Red Blood Count 2.86 MIL/MM3 Mean Corpuscular Volume 91.8 FL Mean Corpuscular Hemoglobin 29.0 PG Mean Corpuscular Hemoglobin 31.6 % Concent Red Cell Distribution Width 19.2 % Platelet Count 40 TH/MM3 Mean Platelet Volume 10.9 FL Neutrophils (%) (Auto) % Lymphocytes (%) (Auto) % Monocytes (%) (Auto) % Eosinophils (%) (Auto) % Basophils (%) (Auto) % Neutrophils # (Auto) TH/MM3 Lymphocytes # (Auto) TH/MM3 Monocytes # (Auto) TH/MM3 Eosinophils # (Auto) TH/MM3 Basophils # (Auto) TH/MM3 CBC Comment AUTO DIFF Imaging Last Impressions Chest X-Ray 12/15/16 0000 Signed Impressions: Service Date/Time: Thursday, December 15, 2016 10:46 - CONCLUSION: No appreciable change. Belkis Rodriguez MD Upper Extremity Ultrasound 12/14/16 0000 Signed Impressions: Service Date/Time: November 14:39 - CONCLUSION: Thrombus within the cephalic vein. Belkis Rodriguez MD Thoracentesis 12/01/16 0000 Signed Impressions: Service Date/Time: Thursday, December 01, 2016 18:56 - CONCLUSION: Uncomplicated CT-guided thoracentesis. Jeffery Alvarado MD Chest CT 12/01/16 0000 Signed Impressions: Service Date/Time: Thursday, December 01, 2016 13:09 - CONCLUSION: Bilateral pleural effusion, larger on the right than the left. Mack Cao MD FACR Abdomen/Pelvis CT 12/01/16 0000 Signed Impressions: Service Date/Time: Thursday, December 01, 2016 13:09 - CONCLUSION: 1. Right inguinal hernia containing only fluid. 2. Generalized anasarca. 3. Trace ascites. 4. Bilateral pleural effusions, larger on the right than the left. Mack Cao MD FACR Abdomen Ultrasound 11/27/16 0000 Signed Impressions: Service Date/Time: Sunday, November 27, 2016 08:35 - CONCLUSION: Stone in the neck of the gallbladder. Trace ascites and mild splenomegaly Jeffery Alvarado MD Gastrostomy Tube Placement 11/24/16 0000 Signed Impressions: Service Date/Time: Sunday, November 27, 2016 14:34 - CONCLUSION: Uncomplicated gastrostomy tube placement as above. Kirit Alcantar MD Head CT 11/08/16 1657 Signed Impressions: Service Date/Time: Tuesday, November 08, 2016 17:06 - CONCLUSION: Low density seen throughout the posterior circulation regions including the susan and midbrain, cerebellar hemispheres, occipital and posterior medial temporal lobes and right thalamus. This likely represents areas of infarction involving the posterior territory circulation. Jeffery Zhong MD Carotid Artery Ultrasound 11/08/16 0000 Signed Impressions: Service Date/Time: Tuesday, November 08, 2016 22:24 - CONCLUSION: Mild calcified plaque at the carotid bulbs. No evidence of hemodynamically significant carotid stenosis. José Luis Beltran MD Objective Remarks GENERAL: Patient is 86 yo on ventilator via trach. SKIN: Warm and dry. HEAD: Normocephalic. EYES: No scleral icterus. No injection or drainage. NECK: Supple, trachea midline. No JVD or lymphadenopathy. CARDIOVASCULAR: Regular rate and rhythm without murmurs, gallops, or rubs. RESPIRATORY: Breath sounds equal bilaterally. Few coarse BS. 8.0 trach in situ GASTROINTESTINAL: Abdomen soft, non-tender, nondistended. PEG in place MUSCULOSKELETAL: No cyanosis, peripheral 2+ edema bilateral upper extremities. Left heel gauze dressing Neuro: Positive corneal reflex. LIDYA. Negative cough. Negative gag. Extensor posturing in uppers. Downgoing Babinski. 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 She was last seen normal, nearly 24 hours, she was not a candidate for any interventional therapy. Unfortunately, given her age, and the extent of the stroke, her prognosis for any reasonable neurologic function is quite poor. Active GI bleed discussed with family, and patient's poor prognosis. Her family continues to express wishes for aggressive medical management. Bioethics has been consulted. Active problems: Massive posterior circulation ischemic CVA Hypoxic and hypercarbic respiratory failure Severe encephalopathy secondary to stroke Severe sepsis Healthcare associated pneumonia with pleural effusion Acute kidney injury UTI Anemia-acute and chronic Hyperglycemia of critical illness Thrombocytopenia Active GI bleed with AVM's Plan Neuro: Monitor neuro status per ICU protocol - Avoid sedatives. Neuro is following -11/08 CT brain: Low density seen throughout the posterior circulation regions including the susan and midbrain, cerebellar hemispheres, occipital and posterior medial temporal lobes and right thalamus. This likely represents areas of infarction involving the posterior territory circulation -GCS 3T, decerebrate posturing Resp: -Continue with vent support keep sat >92% Vent bundle, Head of bed 30, bronchodilators-scheduled -s/p trach 11/23, pulm toilet, trach care -SBT daily as lia. -s/p CT guided right thoracentesis 11/27 with removal 700ml clear fluid. CVS: Monitor HR and BP keep MAP>65mmhg 2-D echo -EF 5560 %, mild aortic mitral and tricuspid regurgitation, No RWMA. 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 --IR intervention-patient is not a candidate. Continue with Protonix drip. -s/p PEG tube placement by IR 11/27 , TF held (Jevity 1.5 with goal rate 45 ml/hr ) secondary to GI bleeding -s/p EGD 11/24 showed mild gastritis unable to place PEG tube endoscopically. -Monitor LFT's, US abdomen: Stone in neck of gall bladder, no hydronephrosis -12/01 CT abdomen/pelvis-generalized anasarca, trace ascites, bilateral pleural effusions right greater than left -Continue with TF- Jevity 1.5 @45mlhr, : -Monitor renal function, I/O's, electrolytes replacement as needed. Avoid nephrotoxins Cr:3.2 today from 3.0 UO 805ml in 24 hrs On NS@42ml/hr, diurese with Bumex 1mg IV x1 ID: -Off abx per ID monitor for signs of infections ( Fever, WBC) -Urine culture 11/18/16 with Brionna albicans and E coli NOT S Levaquin, but S to zosyn -Infectious disease Dr. Wen, sputum cx 11/23: nl resp erica Heme Monitor CBC. On Fe Sulfate 300mg BID Hematology is following-Dr. Alaniz. On Epogen M,W,F. Heme is following Follow up on Hep PLt ab Endo: --On SSI Medium scale for glycemic control, add Levemir 7u Q12 Msk: --Red and sacral area, left heel wound --12/06 Wound care consulted --Specialty bed-Airflow Proph: Subcutaneous heparin on hold since 11/23 secondary to thrombocytopenia, anemia and GI bleed. SCDs for DVT prophylaxis Protonix for GI prophylaxis RUE US.Thrombus in cephalic veins not on AC due to GI bleed , anemia requiring blood transfusion and thrombocytopenia with PLT <50 Poor prognosis. -Palliative care is following. Plan for ethics meeting with son. IV access: Peripheral IV's Level 3 Kacy Ayala MD Dec 18, 2016 07:20
[2016-12-18 07:39] LABS: BANDS 15 % (0-6); CORRECTED NUCLEATED RBC 1 /100 WBC (0-0); EOSINOPHILS 9 % (0-4); NEUTROPHIL # MANUAL DIFF 3.3 TH/MM3 (1.8-7.7); PLATELET ESTIMATE SMEAR LOW (NORMAL); PLATELET MORPHOLOGY NORMAL (NORMAL); POLYS (SEG NEUTROPHILS) 40 % (16-70); WBC DIFF SAMPLE 100
[2016-12-18 07:40] LABS: SCAN/DIFF FINAL DIFF MANUAL
[2016-12-18] MEDS: INSULIN DETEMIR 100 UNITS/ML VIAL SQ SCH ×2 (07:49→23:18)
[2016-12-18] MEDS: FERROUS SULFATE 300 MG /5ML UDC PO SCH ×2 (07:49→23:17)
[2016-12-18] MEDS: SODIUM CHLOR 0.9% 1000 ML INJ 1,000 ML IV SCH (07:50)
[2016-12-18] MEDS: CHLORHEXIDINE 0.12% (ORAL KIT) 15 ML CUP MT SCH ×2 (07:56→23:19)
[2016-12-18] MEDS: ARTIFICIAL TEARS OPTH SOLN 15 ML BTL EACH EYE SCH ×2 (07:56→11:46)
[2016-12-18] MEDS ORDERED: BUMETANIDE INJ 1 MG/4 ML VIAL IV PUSH ONE (08:00)
[2016-12-18] MEDS: EPOETIN ALFA 10,000 UNITS/ML VIAL SQ SCH (08:19)
[2016-12-18] MEDS: SODIUM CHLORIDE 0.9% FLUSH 5 ML FLUSH IV FLUSH SCH ×2 (09:00→21:00)
--- NOTE | 2016-12-18 11:03 | HHI.NPPN ---
Subjective History of Present Illness 86 year old with CVA, Resp failure s/p Trach/ PEG Additional Remarks Patient remains on the Vent, remain unresponsive. Objective Data Data 12/17/16 12/18/16 19:00 07:00 Intake Total 620 ml 1485 ml Output Total 175 ml 630 ml Balance 445 ml 855 ml IV Total 150 ml 668 ml Tube Feeding 350 ml 697 ml Tube Irrigant 120 ml 120 ml Output Urine Total 175 ml 630 ml Vital Signs Date Time Temp Pulse Resp B/P Pulse Ox O2 Delivery O2 Flow Rate FiO2 12/18/16 10:00 81 12/18/16 08:00 81 12/18/16 08:00 98.8 74 128/58 95 12/18/16 08:00 30 12/18/16 07:26 30 12/18/16 07:22 99 30 12/18/16 06:00 81 12/18/16 04:06 95 30 12/18/16 04:00 99.1 82 131/60 93 12/18/16 04:00 82 12/18/16 04:00 30 12/18/16 02:00 84 12/18/16 01:05 99 30 12/18/16 00:00 87 12/18/16 00:00 30 12/18/16 00:00 99.1 87 106/55 93 12/17/16 22:00 87 12/17/16 21:00 30 12/17/16 20:41 99 30 12/17/16 20:00 30 12/17/16 20:00 92 12/17/16 20:00 98.8 92 124/58 93 12/17/16 16:12 95 30 12/17/16 16:00 30 12/17/16 16:00 97.4 85 14 136/72 92 12/17/16 14:11 95 30 12/17/16 12:00 97.4 75 16 102/62 95 12/17/16 12:00 30 12/17/16 11:25 96 30 -: 12/18/16 0511 12/18/16 0510 Physical Exam General Appearance: Pale Neck Neck Remarks s/p trach Pulmonary Resp Exam: Decreased Bases Cardiology CV Exam: Regular Gastrointestinal/Abdomen GI Exam: Soft, Non-Tender Extremeties Extremities Exam: Moderate Edema Assessment/Plan Problem List: (1) Acute renal failure Plan: Patient has multiple issues and has malnutrition with poor albumin contributing to low oncotic pressure, ATN creatinine stable: 3.37 --> 3.05 --> 2.7 -->2.7 -->. 2.6 -->2.6 --> 2.6, now increase slightly 2.8 increased to 3.2 . UOP dropped CXR Diffuse Pulmonary edema try albumin with High dose Bumex for diuresis no meaningful recovery from CVA at this point Palliative care following. Apparently son would like to fly her to [place] for stem cell treatment. Continue to follow goals of care. 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 Ongoing anemia, continue to monitor. getting PRBC on regular interval agree with Palliative care ethics meeting with son as futile care with hopeless situation and no chance of meaningful recovery. Creatinine remain same. Patient has BRIANA and not a candidate for skilled nursing HD. Has slight increase in Creatinine. (2) Metabolic acidosis Plan: Stable, continue to monitor (3) Pneumonia Plan: On vent treated earlier with antibiotic (4) Urinary tract infection Plan: Escherichia coli she was treated (5) CVA (cerebral vascular accident) Plan: Massive stroke neurology following (6) Rhabdomyolysis Plan: This resolved (7) Hypernatremia Plan: Given 1L of DW over weekend improved Continue to monitor, repeat as necessary (8) Gastrointestinal hemorrhage Plan: Multiple PRBC given AVM poor prognosis Problem Qualifiers (1) Acute renal failure: Qualified Code: N17.9 - Acute renal failure, unspecified acute renal failure type (2) CVA (cerebral vascular accident): Qualified Code: I63.9 - Cerebrovascular accident (CVA), unspecified mechanism (3) Rhabdomyolysis: Qualified Code: M62.82 - Non-traumatic rhabdomyolysis Kristel Zuniga MD Dec 18, 2016 11:03
[2016-12-18] MEDS: BUMETANIDE INJ 1 MG/4 ML VIAL IV PUSH SCH (11:46)
[2016-12-18] MEDS: ALBUMIN HUMAN 25% 25 GM/100 ML BAGP IV SCH ×2 (11:46→23:17)
--- NOTE | 2016-12-18 14:32 | PD.ONC.PN ---
Subjective Subjective Remarks Afebrile overnight. Patient on mechanical ventilation, unresponsive. No family members at bedside. Objective Data Date Time Temp Pulse Resp B/P Pulse Ox O2 Delivery O2 Flow Rate FiO2 12/18/16 12:00 81 12/18/16 12:00 98.6 77 14 132/65 95 12/18/16 12:00 30 12/18/16 11:42 95 30 12/18/16 10:00 81 12/18/16 08:00 81 12/18/16 08:00 98.8 74 128/58 95 12/18/16 08:00 30 12/18/16 07:26 30 12/18/16 07:22 99 30 12/18/16 06:00 81 12/18/16 04:06 95 30 12/18/16 04:00 99.1 82 131/60 93 12/18/16 04:00 82 12/18/16 04:00 30 12/18/16 02:00 84 12/18/16 01:05 99 30 12/18/16 00:00 87 12/18/16 00:00 30 12/18/16 00:00 99.1 87 106/55 93 12/17/16 22:00 87 12/17/16 21:00 30 12/17/16 20:41 99 30 12/17/16 20:00 30 12/17/16 20:00 92 12/17/16 20:00 98.8 92 124/58 93 12/17/16 16:12 95 30 12/17/16 16:00 30 12/17/16 16:00 97.4 85 14 136/72 92 12/18/16 12/18/16 12/18/16 07:00 15:00 23:00 Intake Total 640 ml 835 ml Output Total 310 ml 350 ml Balance 330 ml 485 ml Result Diagram: 12/18/16 0511 12/18/16 0510 Laboratory Results Laboratory Tests Test 12/17/16 12/18/16 12/18/16 18:30 05:10 05:11 Hemoglobin 9.0 GM/DL 8.3 GM/DL Hematocrit 27.7 % 26.3 % Sodium Level 143 MEQ/L Potassium Level 3.9 MEQ/L Chloride Level 109 MEQ/L Carbon Dioxide Level 23.6 MEQ/L Anion Gap 10 MEQ/L Blood Urea Nitrogen 117 MG/DL Creatinine 3.20 MG/DL Estimat Glomerular Filtration 14 ML/MIN Rate Random Glucose 312 MG/DL Calcium Level 8.4 MG/DL White Blood Count 6.0 TH/MM3 Red Blood Count 2.86 MIL/MM3 Mean Corpuscular Volume 91.8 FL Mean Corpuscular Hemoglobin 29.0 PG Mean Corpuscular Hemoglobin 31.6 % Concent Red Cell Distribution Width 19.2 % Platelet Count 40 TH/MM3 Mean Platelet Volume 10.9 FL Neutrophils (%) (Auto) % Lymphocytes (%) (Auto) % Monocytes (%) (Auto) % Eosinophils (%) (Auto) % Basophils (%) (Auto) % Neutrophils # (Auto) TH/MM3 Lymphocytes # (Auto) TH/MM3 Monocytes # (Auto) TH/MM3 Eosinophils # (Auto) TH/MM3 Basophils # (Auto) TH/MM3 CBC Comment AUTO DIFF Differential Total Cells 100 Counted Neutrophils % (Manual) 40 % Band Neutrophils % 15 % Lymphocytes % 21 % Monocytes % 15 % Eosinophils % 9 % Neutrophils # (Manual) 3.3 TH/MM3 Nucleated Red Blood Cells 1 /100 WBC Differential Comment FINAL DIFF MANUAL Platelet Estimate LOW Platelet Morphology Comment NORMAL Administered Medications Medications (Trade) Dose Ordered Sig/Swati Route PRN Reason Start Time Stop Time Status Last Admin Dose Admin Chlorhexidine Gluconate (Peridex 0.12% Liq) 15 ml BID@08,20 MT 11/08/16 20:00 12/18/16 07:56 IV Flush (NS Flush) 2 ml BID IV FLUSH 11/08/16 21:00 12/17/16 20:50 Ondansetron HCl (Zofran Inj) 4 mg Q6H PRN IV NAUSEA OR VOMITING 11/08/16 19:45 11/30/16 21:43 Heparin Sodium (Porcine) (Heparin Inj) 5,000 units Q12H SQ 11/08/16 20:00 Hold 11/23/16 20:02 Chlorhexidine Gluconate (Chlorhexidine 2% Cloth) 3 pack Taper DAILY@04 TOP 11/09/16 04:00 11/05/17 03:59 12/18/16 04:00 Artificial Tears (Tears Naturale Opth Soln) 1 drop TID EACH EYE 11/09/16 18:00 12/18/16 11:46 Ferrous Sulfate (Ferrous Sulfate Liq) 300 mg BID PO 11/11/16 09:00 12/18/16 07:49 Epoetin Ty (Epogen Inj) 10,000 units MoWeFr SQ 11/13/16 06:00 12/18/16 08:19 Acetaminophen (Tylenol 650 Mg/ 20 ml Liq) 650 mg Q4H PRN OG-TUBE TEMP>101 11/12/16 17:00 11/21/16 04:43 Hyoscyamine Sulfate (Levsin Liq) 0.25 mg Q6H PRN PO ORAL SECRETIONS 11/30/16 16:00 12/05/16 09:19 Pantoprazole Sodium 40 mg 40 mg Q12H IV PUSH 12/15/16 11:00 12/18/16 11:00 Sodium Chloride (NS 1000 ml Inj) 1,000 ml @ 42 mls/hr [id number] IV 12/17/16 09:30 12/18/16 07:50 Insulin Human Regular (NovoLIN R SUPPLEMENTAL SCALE) 1 Q6H SQ 12/17/16 09:30 12/18/16 09:30 Insulin Detemir (Levemir Inj) 7 units Q12HR SQ 12/18/16 09:00 12/18/16 07:49 Albumin Human (Albumin 25% Inj) 25 gm Q12H IV 12/18/16 11:00 12/20/16 10:00 12/18/16 11:46 Bumetanide (Bumex Inj) 3 mg BID@11,23 IV PUSH 12/18/16 11:00 12/18/16 11:46 Objective Remarks GENERAL: Elderly female supine in bed. SKIN: Warm and dry. HEAD: Normocephalic. EYES: No injection or drainage. NECK: Supple, trachea midline. tracheostomy in place CARDIOVASCULAR: +S1/S2 RESPIRATORY: anterior [place] with occasional rhonchi on mechanical ventilation GASTROINTESTINAL: Abdomen soft, non-distended EXTREMITIES: +edema, LUE and bilateral lower extremities. Assessment/Plan Assessment 86y/o female critically ill with poor prognosis following a large stroke some weeks ago. Hematology consulted for anemia secondary to GIB/acute illness with underlying coagulopathy and thrombocytopenia. Plan 1. Thrombocytopenia: check coags. likely multifactorial due to DIC, medications, critical illness. 2. await HIT antibody. 3. no transfusion needed today unless bleeding. prognosis very poor. Attending Statement The exam, history, and the medical decision-making described in the above note were completed with the assistance of the mid-level provider. I reviewed and agree with the findings presented. I attest that I had a [id number] encounter with the patient on the same day, and personally performed and documented my assessment and findings in the medical record. Patient has DIC due to multiple issues stated above will give cryo for low fibrinogen Coagulopathic. Give Vitamin K no platelet transfusion today HIT panel pending. check daily CBC and DIC panel Patient's chance of recovery unlikely, gravely ill d/w Michelle Montana Dec 18, 2016 14:32 Alfonso Alaniz MD Dec 18, 2016 23:14
[2016-12-18 15:57] LABS: HEPARIN AB OD 0.093 O.D. (0.000-0.300); HEPARIN INDUCED PLATELET AB NEGATIVE (NEGATIVE)
--- NOTE | 2016-12-18 16:37 | HHI.GIFU ---
Subjective Remarks Resting in bed. Tolerating tube feeding. No active bleeding at this time. ( Yoli Dickens) Objective Vitals I&O Vital Signs Date Time Temp Pulse Resp B/P Pulse Ox O2 Delivery O2 Flow Rate FiO2 12/18/16 16:00 95 30 12/18/16 12:00 81 12/18/16 12:00 98.6 77 14 132/65 95 12/18/16 12:00 30 12/18/16 11:42 95 30 12/18/16 10:00 81 12/18/16 08:00 81 12/18/16 08:00 98.8 74 128/58 95 12/18/16 08:00 30 12/18/16 07:26 30 12/18/16 07:22 99 30 12/18/16 06:00 81 12/18/16 04:06 95 30 12/18/16 04:00 99.1 82 131/60 93 12/18/16 04:00 82 12/18/16 04:00 30 12/18/16 02:00 84 12/18/16 01:05 99 30 12/18/16 00:00 87 12/18/16 00:00 30 12/18/16 00:00 99.1 87 106/55 93 12/17/16 22:00 87 12/17/16 21:00 30 12/17/16 20:41 99 30 12/17/16 20:00 30 12/17/16 20:00 92 12/17/16 20:00 98.8 92 124/58 93 I/O 12/17/16 12/17/16 12/17/16 12/18/16 12/18/16 12/18/16 07:00 15:00 23:00 07:00 15:00 23:00 Intake Total 278 ml 620 ml 845 ml 640 ml 835 ml Output Total 200 ml 175 ml 320 ml 310 ml 350 ml Balance 78 ml 445 ml 525 ml 330 ml 485 ml IV Total 150 ml 384 ml 284 ml 385 ml Tube Feeding 278 ml 350 ml 401 ml 296 ml 350 ml Tube Irrigant 120 ml 60 ml 60 ml Other 100 ml Output Urine Total 200 ml 175 ml 320 ml 310 ml 350 ml Laboratory Laboratory Tests Test 12/17/16 12/18/16 12/18/16 18:30 05:10 05:11 Hemoglobin 9.0 8.3 Hematocrit 27.7 26.3 Sodium Level 143 Potassium Level 3.9 Chloride Level 109 Carbon Dioxide Level 23.6 Anion Gap 10 Blood Urea Nitrogen 117 Creatinine 3.20 Estimat Glomerular Filtration 14 Rate Random Glucose 312 Calcium Level 8.4 White Blood Count 6.0 Red Blood Count 2.86 Mean Corpuscular Volume 91.8 Mean Corpuscular Hemoglobin 29.0 Mean Corpuscular Hemoglobin 31.6 Concent Red Cell Distribution Width 19.2 Platelet Count 40 Mean Platelet Volume 10.9 Neutrophils (%) (Auto) Lymphocytes (%) (Auto) Monocytes (%) (Auto) Eosinophils (%) (Auto) Basophils (%) (Auto) Neutrophils # (Auto) Lymphocytes # (Auto) Monocytes # (Auto) Eosinophils # (Auto) Basophils # (Auto) CBC Comment AUTO DIFF Differential Total Cells 100 Counted Neutrophils % (Manual) 40 Band Neutrophils % 15 Lymphocytes % 21 Monocytes % 15 Eosinophils % 9 Neutrophils # (Manual) 3.3 Nucleated Red Blood Cells 1 Differential Comment FINAL DIFF MANUAL Platelet Estimate LOW Platelet Morphology Comment NORMAL Imaging Last Impressions Chest X-Ray 12/15/16 0000 Signed Impressions: Service Date/Time: Thursday, December 15, 2016 10:46 - CONCLUSION: No appreciable change. Belkis Rodriguez MD Upper Extremity Ultrasound 12/14/16 0000 Signed Impressions: Service Date/Time: November 14:39 - CONCLUSION: Thrombus within the cephalic vein. Belkis Rodriguez MD Thoracentesis 12/01/16 0000 Signed Impressions: Service Date/Time: Thursday, December 01, 2016 18:56 - CONCLUSION: Uncomplicated CT-guided thoracentesis. Jeffery Alvarado MD Chest CT 12/01/16 0000 Signed Impressions: Service Date/Time: Thursday, December 01, 2016 13:09 - CONCLUSION: Bilateral pleural effusion, larger on the right than the left. Mack Cao MD FACR Abdomen/Pelvis CT 12/01/16 0000 Signed Impressions: Service Date/Time: Thursday, December 01, 2016 13:09 - CONCLUSION: 1. Right inguinal hernia containing only fluid. 2. Generalized anasarca. 3. Trace ascites. 4. Bilateral pleural effusions, larger on the right than the left. Mack Cao MD FACR Abdomen Ultrasound 11/27/16 0000 Signed Impressions: Service Date/Time: Sunday, November 27, 2016 08:35 - CONCLUSION: Stone in the neck of the gallbladder. Trace ascites and mild splenomegaly Jeffery Alvarado MD Gastrostomy Tube Placement 11/24/16 0000 Signed Impressions: Service Date/Time: Sunday, November 27, 2016 14:34 - CONCLUSION: Uncomplicated gastrostomy tube placement as above. Kirit Alcantar MD Head CT 11/08/16 1657 Signed Impressions: Service Date/Time: Tuesday, November 08, 2016 17:06 - CONCLUSION: Low density seen throughout the posterior circulation regions including the susan and midbrain, cerebellar hemispheres, occipital and posterior medial temporal lobes and right thalamus. This likely represents areas of infarction involving the posterior territory circulation. Jeffery Zhong MD Carotid Artery Ultrasound 11/08/16 0000 Signed Impressions: Service Date/Time: Tuesday, November 08, 2016 22:24 - CONCLUSION: Mild calcified plaque at the carotid bulbs. No evidence of hemodynamically significant carotid stenosis. José Luis Beltran MD Physical Exam HEENT: Normocephalic; atraumatic; no jaundice. CHEST: Trach. Course breath sounds. CARDIAC: RRR ABDOMEN: +BS, soft, nondistended, no hepatosplenomegaly; PEG tube with TF at 45cc/hr EXTREMITIES: Generalized edema. SKIN: Generalized pallor [employer]: Obtunded on vent (Yoli Dickens) Assessment and Plan Plan ASSESSMENT: - GIB/anemia with drop in hgb. 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 She has received 17 units of PRBC and 2 unit of Plt. She continues to have coffee ground gastric secretions and melena. IR does not think patient is a candidate for embolization per Dr. Farnsworth. Not a surgical candidate. S/P Rpt. EGD for control of bleeding (12/14/16)---> 1. 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 Retroflexed views revealed a hiatal hernia. No further Pt tolerating TF at goal rate of 45mL/hr. HH 8.3/.3. No obvious active bleeding. Tolerating TF. - Large gastric ulcer, multiple duodenal avms. S/P Ablation. Not a candidate for embolization/surgery. S/P rpt EGD for control of bleeding (12/14/16)---> 1. 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 Retroflexed views revealed a hiatal hernia. Protonix gtt. HH 8./.3 - Anemia secondary to acute blood loss. S/P 17 units PRBC, 2 PLT. HH 8./.. - Dysphagia, FEN. Pt currently in ICU being treated for massive posterior circulation ischemic CVA and she remains in the ICU being treated for hypoxic respiratory failure, severe encephalopathy secondary to stroke, severe sepsis, HCAP with pleural effusion, and acute kidney injury. She is S/P tracheostomy. Had PEG tube placement by IR on 11/27. - Severe Encephalopathy/CVA. Per CCM - Resp. Failure, HCAP, Pleural effusion per CCM - BRIANA with electrolyte abnormalities. PLAN: - Jevity 1.5 at GR 45cc/hr - Protonix 40mg IV BID - Monitor HH - Transfuse as necessary - Unable to have embolization by IR - GI will sign off, please reconsult as needed - Pt seen and examined by Dr. Choi and myself and this note is written on his behalf (Yoli Dickens) Physician Comments Patient seen and examined Agree with above Continue with current supportive care Monitor labs Transfuse as needed We will sign off but please reconsult as needed if active bleeding and there is a need for endoscopy (Colten Choi MD) Yoli Dickens Dec 18, 2016 16:37 Colten Choi MD Dec 18, 2016 19:11
[2016-12-18 19:55] LABS: INTERNATIONAL NORMALIZED RATIO 1.8 RATIO; PROTHROMBIN TIME - PATIENT 20.1 SEC (9.8-11.6)
[2016-12-18 19:59] LABS: APTT (PATIENT) 51.8 SEC (24.3-30.1)
[2016-12-18] MEDS ORDERED: PHYTONADIONE 5 MG TAB PO ONE (23:15)
[2016-12-19] VITALS (19 sets, daily range): BP systolic 110–134; BP diastolic 57–73; PULSE 83–93; RESP 14–16; TEMP 97.7–98.4; O2SAT 92–98
[2016-12-19] MEDS: BUMETANIDE INJ 1 MG/4 ML VIAL IV PUSH SCH ×2 (00:37→12:40)
[2016-12-19] MEDS: INSULIN NovoLIN REGULAR SUPPLEMENTAL SCALE SQ SCH ×4 (03:30→18:00)
[2016-12-19] MEDS: CHLORHEXIDINE GLUCONATE 2 % 1 PACK (2 CLOTHS) TOP SCH (04:00)
[2016-12-19 04:30] LABS: AUTOMATED NEUTROPHIL # 3.7 TH/MM3 (1.8-7.7); BASOPHIL % 0.5 % (0.0-2.0); EOSINOPHIL # 0.6 TH/MM3 (0-0.4); EOSINOPHIL % 10.1 % (0.0-4.0); HEMATOCRIT 24.8 % (35.0-46.0); LYMPH % 15.9 % (9.0-44.0); MEAN CELL VOLUME 91.6 FL (80.0-100.0); MEAN CORPUSCULAR HGB CONC 32.7 % (32.0-36.0); MONO % 15.9 % (0.0-8.0); NEUT % 57.6 % (16.0-70.0); PLATELET COUNT 41 TH/MM3 (150-450); RED BLOOD COUNT 2.71 MIL/MM3 (4.00-5.30); RED CELL DISTRIBUTION WIDTH 19.5 % (11.6-17.2); WHITE BLOOD COUNT 6.4 TH/MM3 (4.0-11.0)
[2016-12-19 04:37] LABS: HEMO FLAGS AUTO DIFF
[2016-12-19 05:06] LABS: BICARBONATE 24.2 MEQ/L (21.0-32.0)
[2016-12-19 05:49] LABS: BANDS 7 % (0-6); EOSINOPHILS 10 % (0-4); METAMYELOCYTES 5 % (0-1); NEUTROPHIL # MANUAL DIFF 4.8 TH/MM3 (1.8-7.7); POLYS (SEG NEUTROPHILS) 60 % (16-70); PROMYELOCYTES 3 % (0-0); WBC DIFF SAMPLE 100
[2016-12-19 05:50] LABS: PLATELET ESTIMATE SMEAR LOW (NORMAL); PLATELET MORPHOLOGY NORMAL (NORMAL); SCAN/DIFF FINAL DIFF MANUAL
--- NOTE | 2016-12-19 06:42 | HHI.CCPN ---
Subjective Remarks/Hospital Course This is an 86yF with per report no other past medical history who presented to the ER after she was found unresponsive in her bed. According to ER reports, her family saw her normal last night when she had a fall, with unknown LOC. At that point, he helped her back to bed. However, this morning she did not wake up. On arrival to the ER, she was unresponsive only withdrawing to pain. she was intubated for airway protection and a poor GCS. CT head demonstrated massive posterior-circulation ischemic stroke. The patient is currently intubated and unresponsive and cannot provide any additional history. 11/09: No acute changes overnight. Palliative care team has consult with the family regarding goals of care. Currently the patient's sedation fentanyl infusion has been turned off without any response from patient. The patient notably does withdrawal to pain. 11/10: No change in neurological status. [id number]. The patient withdraws to pain 4 extremities. The patient currently on no sedation, fentanyl infusion discontinued yesterday. Tube feeds were initiated. The patient's urine culture grew back Escherichia coli, the patient was started on antibiotics. Extensive discussion with son regarding patient's neurological status, son Wyatt has had extensive discussion with palliative care.The son feels that yesterday when the patient was spoken to in [place] the patient squeezed his hand and desires aggressive treatment. The patient's neuro status is unchanged, totally unresponsive with occasional reflexive twitching of feet B/L. Follow-up with neurology Dr. Pack, guarding any further imaging studies. 11/13: No change in neuro exam. Palliative care following. Family wanting full aggressive care. Palliative care will address early trach PEG 11/14: No improvement in neuro status. Son has not made decisions regarding trach and PEG. Apparently he wants to wait longer to see any improvement 11/15: Remains unresponsive. Neuro exam with extensor posturing-unchanged. Son requesting aggressive care. Continues to have low-grade fever 11/16: Clinically no improvement. Tolerates CPAP. Unable to extubate as patient will not protect airway 11/17: Tolerating C Pap but no change in neuro exam. Hemoglobin noted to be 6.8 hemodynamically stable 11/18: Became tachycardic and hypotensive early a.m., placed on assist control. Otherwise neuro exam remains unchanged 11/19: Continues to spike fever Tmax 102, started on vancomycin and cefepime in addition to Levaquin yesterday. Currently only low-grade fever. Received 2 units of blood for hemoglobin of 5.3. CBC pending at this time. No improvement in neuro exam 11/20: White count is 18.3 today, MAXIMUM TEMPERATURE 103.1. Chest x-ray showing right sided infiltrate. Urine culture with gram-negative rods and Brionna albicans. ID consulted Diflucan added 11/21/16: Tmax 101.5. Bilateral lung infiltrates, R>L but slightly improved. No improvement in neuro exam. ID consulted and following. 11/22/16: No fever. CT chest- moderate to large R pleural effusion, bilateral lung infiltrates. ABX per ID. CXR today shows increasing bilateral infiltrates and effusion right more than left. Almost near complete infiltrates on the right lung [place]. Vaginally worsening creatinine today 1.45 indicating multiorgan failure 11/23/16: Hb 9.8 today after 2U PRBC yesterday. Plan for tracheostomy today. INR normal platelet count 116. Worsening creatinine today is 1.6. UO 550 ml in 24 hours. 1L NS bolus and 75 ml per hour maintenance NS. Started on Dopamine 3 mcg per min to maintain MAP>65 11/24 Patient is on ventilator via trach. Afebrile. On Dopamine 4 mics. 11/25 No acute events overnight. s/p EGD yesterday showed mild gastritis unable to place PEG tube endoscopically. Remains on Dopamine 4 mics. On no sedation unresponsive. 11/26 No acute events overnight. On CPAP with PS 20, PEEP: 5 and FIO2 40%. Afebrile. Off Dopamine. Afebrile. 11/27 Patient remains on ventilator via trach on no drips. Afebrile. For PEG tube placement by IR today. 11/28 Patient s/p PEG tube placement by IR yesterday, s/p Right thoracentesis with removal 700ml CXR showed better aeration of lungs, Hgb 6.7 this morning 2units PRBC ordered. Renal function worse with Cr: 3.40 from 2.85 . 11/29: Remains encephalopathic on mechanical ventilation via tracheostomy. 11/30: Remains encephalopathic on mechanical ventilation via tracheostomy. 12/01 Patient s/p transfusion 1unit PRBC last night for Hgb 5.8 in addition to 2L NS. Hgb 6.5 this morning. 12/02: Afebrile. The patient underwent CT-guided thoracentesis yesterday with approximately 600 cc removed. Chest x-ray pending this a.m.. Patient received packed red blood cell 2 units yesterday. Hemoglobin 7.4. Pending EGD today. 12/03:The patient underwent EGD yesterday with Dr. Farnsworth patient was noted to have a large active bleeding ulcer in the body of the stomach, multiple AVMs. Multiple ablations performed. This a.m. hemoglobin dropped to 6.1, platelet count 38. The patient was transfused 2 PRBC, and a unit of platelets. Patient still not relieved receiving any nutrition will begin PPN today. The patient continues to have copious amounts of melena with fecal incontinence apparatus in place. 12/04: The patient continues to have copious melena. PT INR drawn last evening INR was noted to be 13.5. The patient received KCentra, and current INR 1.3 the family requests aggressive measures to be continued. No further interventions from gastroenterology per . IR deemed the patient not a candidate for arteriography or endovascular treatment. 12/05: Patient's current medical status unchanged. Large tarry stools, acute blood loss anemia continues in conjunction with thrombocytopenia. During the night the nurse reported a malodorous scent was noted in free water flush container for instillation through G-tube. It was noted to be possibly fish oil , patient's son was in the room during that time. Container removed. The patient is noted to have a hemoglobin level of 5.8 today will receive 2 units of packed red blood cells and 1 unit of platelets today. 12/06: The patient continues to have copious melena. The patient received one 6 pack of platelets, and 2 units of blood yesterday. Tonight as reported by the nurse in the evening the son continue to utilize fish oil in the patient's free water, which was removed by the nurse. Ethics committee consult was initiated with Dr. Bauer yesterday, regarding assessing goals of care. 12/07: The patient's INR 1.3. Patient received 2 units of blood and one 6 pack of platelets yesterday. Awaiting ethics committee meeting with Dr. Bauer. The patient continues to require transfusions. 4/14: Patient was noted to have a drop in hemoglobin this a.m.. The patient is being transfused 2 units of PRBCs, with noted difficulty obtaining unit secondary to antibodies. Hematology will be consulted. Bioethics committee meeting planned to convene in one week, patient's son has agreed to attend. 12/09: Afebrile. No change in neuro status. Wound Care consult for left and blisters on back, orders provided. Hemoglobin stable post 2 units packed red blood cells yesterday. 12/10: The patient's hemoglobin 7.6 yesterday, hemoglobin pending for today. Overnight RN reported family member son continually putting some chemicals in the gastric tube of the patient, risk management notified. Hematology oncology has evaluated the patient, awaiting bioethics committee meeting scheduled for next week. The patient continues on PPN for nutritional support. 12/11 Patient remains on ventilator via trach on no sedation unresponsive. Afebrile.On Protonix drip and PPN. 12/12 No acute events overnight. Afebrile. Hgb 6.8 this morning 2 units PRBC ordered . 12/13 Patient remains on ventilator via trach, s/p transfusion 2units PRBC yesterday Hgb 9.1 this morning. Afebrile. On Protonix drip. 12/14 Patient s/p EGD yesterday which showed esophageal varices and hiatal hernia. On Ventilator via trach. H/H stable. On Protonix drip. 12/15 No acute events overnight. Afebrile. 12/16 Patient remains on ventilator via trach. Afebrile. 12/17 No acute events overnight. Afebrile. 12/18 Patient remains on ventilator via trach. Afebrile. Renal function continue to decline with Cr: 3.2 today from 3.0 with UO 805ml in 24 hrs. Afebrile. 12/19 No acute events overnight. Patient was given 2units Cryo and Vitamin K 5mg x1 by heme. On CPAP with FIO2 30%. Afebrile. Cr: 3.16 from 3.20 with UOP 1150ml in 24 hrs. Objective Vital Signs Date Time Temp Pulse Resp B/P Pulse Ox O2 Delivery O2 Flow Rate FiO2 12/19/16 04:26 98.4 89 14 120/58 94 12/19/16 04:10 30 Intake and Output 12/18/16 12/18/16 12/19/16 08:00 16:00 00:00 Intake Total 640 ml 835 ml 974 ml Output Total 310 ml 350 ml 550 ml Balance 330 ml 485 ml 424 ml Result Diagram: 12/19/16 0333 12/19/16 0333 Other Results Laboratory Tests Test 12/18/16 12/18/16 12/19/16 18:45 23:07 03:33 Prothrombin Time 20.1 SEC Prothromb Time International 1.8 RATIO Ratio Activated Partial 51.8 SEC Thromboplast Time Fibrinogen 110 mg/dL Blood Bank Comment White Blood Count 6.4 TH/MM3 Red Blood Count 2.71 MIL/MM3 Hemoglobin 8.1 GM/DL Hematocrit 24.8 % Mean Corpuscular Volume 91.6 FL Mean Corpuscular Hemoglobin 30.0 PG Mean Corpuscular Hemoglobin 32.7 % Concent Red Cell Distribution Width 19.5 % Platelet Count 41 TH/MM3 Mean Platelet Volume 11.1 FL Neutrophils (%) (Auto) 57.6 % Lymphocytes (%) (Auto) 15.9 % Monocytes (%) (Auto) 15.9 % Eosinophils (%) (Auto) 10.1 % Basophils (%) (Auto) 0.5 % Neutrophils # (Auto) 3.7 TH/MM3 Lymphocytes # (Auto) 1.0 TH/MM3 Monocytes # (Auto) 1.0 TH/MM3 Eosinophils # (Auto) 0.6 TH/MM3 Basophils # (Auto) 0.0 TH/MM3 CBC Comment AUTO DIFF Differential Total Cells 100 Counted Neutrophils % (Manual) 60 % Band Neutrophils % 7 % Lymphocytes % 7 % Monocytes % 8 % Eosinophils % 10 % Neutrophils # (Manual) 4.8 TH/MM3 Metamyelocytes 5 % Promyelocytes 3 % Differential Comment FINAL DIFF MANUAL Platelet Estimate LOW Platelet Morphology Comment NORMAL Sodium Level 143 MEQ/L Potassium Level 4.0 MEQ/L Chloride Level 108 MEQ/L Carbon Dioxide Level 24.2 MEQ/L Anion Gap 11 MEQ/L Blood Urea Nitrogen 113 MG/DL Creatinine 3.16 MG/DL Estimat Glomerular Filtration 14 ML/MIN Rate Random Glucose 362 MG/DL Calcium Level 8.4 MG/DL Phosphorus Level 4.4 MG/DL Albumin 3.7 GM/DL Imaging Last Impressions Chest X-Ray 12/15/16 0000 Signed Impressions: Service Date/Time: Thursday, December 15, 2016 10:46 - CONCLUSION: No appreciable change. Belkis Rodriguez MD Upper Extremity Ultrasound 12/14/16 Signed Impressions: Service Date/Time: November 14:39 - CONCLUSION: Thrombus within the cephalic vein. Belkis Rodriguez MD Thoracentesis 12/01/16 Signed Impressions: Service Date/Time: Thursday, December 01, 2016 18:56 - CONCLUSION: Uncomplicated CT-guided thoracentesis. Jeffery Alvarado MD Chest CT 12/01/16 Signed Impressions: Service Date/Time: Thursday, December 01, 2016 13:09 - CONCLUSION: Bilateral pleural effusion, larger on the right than the left. Mack Cao MD FACR Abdomen/Pelvis CT 12/01/16 Signed Impressions: Service Date/Time: Thursday, December 01, 2016 13:09 - CONCLUSION: 1. Right inguinal hernia containing only fluid. 2. Generalized anasarca. 3. Trace ascites. 4. Bilateral pleural effusions, larger on the right than the left. Mack Cao MD FACR Abdomen Ultrasound 11/27/16 Signed Impressions: Service Date/Time: Sunday, November 27, 2016 08:35 - CONCLUSION: Stone in the neck of the gallbladder. Trace ascites and mild splenomegaly Jeffery Alvarado MD Gastrostomy Tube Placement 11/24/16 Signed Impressions: Service Date/Time: Sunday, November 27, 2016 14:34 - CONCLUSION: Uncomplicated gastrostomy tube placement as above. Kirit Alcantar MD Head CT 11/08/16 1657 Signed Impressions: Service Date/Time: Tuesday, November 08, 2016 17:06 - CONCLUSION: Low density seen throughout the posterior circulation regions including the susan and midbrain, cerebellar hemispheres, occipital and posterior medial temporal lobes and right thalamus. This likely represents areas of infarction involving the posterior territory circulation. Jeffery Zhong MD Carotid Artery Ultrasound 11/08/16 Signed Impressions: Service Date/Time: Tuesday, November 08, 2016 22:24 - CONCLUSION: Mild calcified plaque at the carotid bulbs. No evidence of hemodynamically significant carotid stenosis. José Luis Beltran MD Objective Remarks GENERAL: Patient is 86 yo on ventilator via trach. SKIN: Warm and dry. HEAD: Normocephalic. EYES: No scleral icterus. No injection or drainage. NECK: Supple, trachea midline. No JVD or lymphadenopathy. CARDIOVASCULAR: Regular rate and rhythm without murmurs, gallops, or rubs. RESPIRATORY: Breath sounds equal bilaterally. Few coarse BS. 8.0 trach in situ GASTROINTESTINAL: Abdomen soft, non-tender, nondistended. PEG in place MUSCULOSKELETAL: No cyanosis, peripheral 2+ edema bilateral upper extremities. Left heel gauze dressing Neuro: Positive corneal reflex. LIDYA. Negative cough. Negative gag. Extensor posturing in uppers. Downgoing Babinski. 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 She was last seen normal, nearly 24 hours, she was not a candidate for any interventional therapy. Unfortunately, given her age, and the extent of the stroke, her prognosis for any reasonable neurologic function is quite poor. Active GI bleed discussed with family, and patient's poor prognosis. Her family continues to express wishes for aggressive medical management. Bioethics has been consulted. Active problems: Massive posterior circulation ischemic CVA Hypoxic and hypercarbic respiratory failure Severe encephalopathy secondary to stroke Severe sepsis Healthcare associated pneumonia with pleural effusion Acute kidney injury UTI Anemia-acute and chronic Hyperglycemia of critical illness Thrombocytopenia Active GI bleed with AVM's Plan Neuro: Monitor neuro status per ICU protocol - Avoid sedatives. Neuro is following -11/08 CT brain: Low density seen throughout the posterior circulation regions including the susan and midbrain, cerebellar hemispheres, occipital and posterior medial temporal lobes and right thalamus. This likely represents areas of infarction involving the posterior territory circulation -GCS 3T, decerebrate posturing Resp: -Continue with vent support keep sat >92% Vent bundle, Head of bed 30, bronchodilators-scheduled -s/p trach 11/23, pulm toilet, trach care -SBT daily as lia. -s/p CT guided right thoracentesis 11/27 with removal 700ml clear fluid. CVS: Monitor HR and BP keep MAP>65mmhg 2-D echo -EF 5560 %, mild aortic mitral and tricuspid regurgitation, No RWMA. 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 --IR intervention-patient is not a candidate. Continue with Protonix drip. -s/p PEG tube placement by IR 11/27 , TF held (Jevity 1.5 with goal rate 45 ml/hr ) secondary to GI bleeding -s/p EGD 11/24 showed mild gastritis unable to place PEG tube endoscopically. -Monitor LFT's, US abdomen: Stone in neck of gall bladder, no hydronephrosis -12/01 CT abdomen/pelvis-generalized anasarca, trace ascites, bilateral pleural effusions right greater than left -Continue with TF- Jevity 1.5 @45mlhr, : -Monitor renal function, I/O's, electrolytes replacement as needed. Avoid nephrotoxins Cr: 3.16 today from 3.2 UOP: 1150 ml in 24 hrs On Bumex 3mg BID, Albumin 25gms Q12, d/c NS ID: -Off abx per ID monitor for signs of infections ( Fever, WBC) -Urine culture 11/18/16 with Brionna albicans and E coli NOT S Levaquin, but S to zosyn -Infectious disease Dr. Wen, sputum cx 11/23: nl resp erica Heme Monitor CBC. On Fe Sulfate 300mg BID s/p Vitamin K 5mg x1 nad 2 units Cryo last night. Monitor INR/PT and Fibrinogen level( 110, INR 1.8 last night)) Hematology is following-Dr. Alaniz. On Epogen M,W,F. Heme is following Hep Plt ab negative Endo: --Increase SSI High scale , increase [id number] u Q12 Msk: --Red and sacral area, left heel wound --12/06 Wound care consulted --Specialty bed-Airflow Proph: Subcutaneous heparin on hold since 11/23 secondary to thrombocytopenia, anemia and GI bleed. SCDs for DVT prophylaxis Protonix for GI prophylaxis RUE US.Thrombus in cephalic veins Not on AC due to GI bleed , anemia requiring blood transfusion and thrombocytopenia with PLT <50 Poor prognosis. -Palliative care is following. Plan for ethics meeting with son. IV access: Peripheral IV's Level 3 Kayc Ayala MD Dec 19, 2016 06:42
[2016-12-19] MEDS ORDERED: DEXTROSE 50% IN WATER 50 ML VIAL(D50) IV PUSH PRN (06:45)
[2016-12-19] MEDS ORDERED: GLUCAGON 1 MG/ML VIAL OTHER PRN (06:45)
[2016-12-19 07:53] LABS: INTERNATIONAL NORMALIZED RATIO 1.6 RATIO; PROTHROMBIN TIME - PATIENT 18.2 SEC (9.8-11.6)
[2016-12-19] MEDS: ARTIFICIAL TEARS OPTH SOLN 15 ML BTL EACH EYE SCH ×3 (08:33→18:00)
[2016-12-19] MEDS: CHLORHEXIDINE 0.12% (ORAL KIT) 15 ML CUP MT SCH ×2 (08:33→22:18)
[2016-12-19] MEDS: FERROUS SULFATE 300 MG /5ML UDC PO SCH ×2 (08:34→22:17)
[2016-12-19] MEDS: INSULIN DETEMIR 100 UNITS/ML VIAL SQ SCH ×2 (08:34→22:17)
[2016-12-19] MEDS: SODIUM CHLORIDE 0.9% FLUSH 5 ML FLUSH IV FLUSH SCH ×2 (08:35→21:00)
--- NOTE | 2016-12-19 10:19 | PD.ONC.PN ---
Subjective Subjective Remarks Afebrile overnight. Patient unresponsive, on mechanical ventilation. Objective Data Date Time Temp Pulse Resp B/P Pulse Ox O2 Delivery O2 Flow Rate FiO2 12/19/16 08:48 93 30 12/19/16 06:00 87 12/19/16 04:26 98.4 89 14 120/58 94 12/19/16 04:10 96 30 12/19/16 04:00 93 12/19/16 04:00 30 12/19/16 02:00 91 12/19/16 01:14 93 30 12/19/16 00:00 87 12/19/16 00:00 30 12/18/16 22:23 93 30 12/18/16 22:00 80 12/18/16 21:00 98.3 88 13 137/63 92 12/18/16 20:00 30 12/18/16 20:00 87 12/18/16 19:39 93 30 12/18/16 18:00 81 12/18/16 16:00 30 12/18/16 16:00 81 12/18/16 16:00 98.8 80 14 13/69 95 12/18/16 16:00 95 30 12/18/16 14:00 81 12/18/16 12:00 81 12/18/16 12:00 98.6 77 14 132/65 95 12/18/16 12:00 30 12/18/16 11:42 95 30 12/19/16 12/19/16 12/19/16 07:00 15:00 23:00 Intake Total 1725 ml Output Total 800 ml Balance 925 ml Result Diagram: 12/19/16 0333 12/19/16 0333 Laboratory Results Laboratory Tests Test 12/18/16 12/18/16 12/19/16 12/19/16 18:45 23:07 03:33 07:30 Prothrombin Time 20.1 SEC 18.2 SEC Prothromb Time International 1.8 RATIO 1.6 RATIO Ratio Activated Partial 51.8 SEC Thromboplast Time Fibrinogen 110 mg/dL 253 mg/dL Blood Bank Comment White Blood Count 6.4 TH/MM3 Red Blood Count 2.71 MIL/MM3 Hemoglobin 8.1 GM/DL Hematocrit 24.8 % Mean Corpuscular Volume 91.6 FL Mean Corpuscular Hemoglobin 30.0 PG Mean Corpuscular Hemoglobin 32.7 % Concent Red Cell Distribution Width 19.5 % Platelet Count 41 TH/MM3 Mean Platelet Volume 11.1 FL Neutrophils (%) (Auto) 57.6 % Lymphocytes (%) (Auto) 15.9 % Monocytes (%) (Auto) 15.9 % Eosinophils (%) (Auto) 10.1 % Basophils (%) (Auto) 0.5 % Neutrophils # (Auto) 3.7 TH/MM3 Lymphocytes # (Auto) 1.0 TH/MM3 Monocytes # (Auto) 1.0 TH/MM3 Eosinophils # (Auto) 0.6 TH/MM3 Basophils # (Auto) 0.0 TH/MM3 CBC Comment AUTO DIFF Differential Total Cells 100 Counted Neutrophils % (Manual) 60 % Band Neutrophils % 7 % Lymphocytes % 7 % Monocytes % 8 % Eosinophils % 10 % Neutrophils # (Manual) 4.8 TH/MM3 Metamyelocytes 5 % Promyelocytes 3 % Differential Comment FINAL DIFF MANUAL Platelet Estimate LOW Platelet Morphology Comment NORMAL Sodium Level 143 MEQ/L Potassium Level 4.0 MEQ/L Chloride Level 108 MEQ/L Carbon Dioxide Level 24.2 MEQ/L Anion Gap 11 MEQ/L Blood Urea Nitrogen 113 MG/DL Creatinine 3.16 MG/DL Estimat Glomerular Filtration 14 ML/MIN Rate Random Glucose 362 MG/DL Calcium Level 8.4 MG/DL Phosphorus Level 4.4 MG/DL Albumin 3.7 GM/DL Administered Medications Medications (Trade) Dose Ordered Sig/Swati Route PRN Reason Start Time Stop Time Status Last Admin Dose Admin Chlorhexidine Gluconate (Peridex 0.12% Liq) 15 ml BID@08,20 MT 11/08/16 20:00 12/19/16 08:33 IV Flush (NS Flush) 2 ml BID IV FLUSH 11/08/16 21:00 12/19/16 08:35 Ondansetron HCl (Zofran Inj) 4 mg Q6H PRN IV NAUSEA OR VOMITING 11/08/16 19:45 11/30/16 21:43 Heparin Sodium (Porcine) (Heparin Inj) 5,000 units Q12H SQ 11/08/16 20:00 Hold 11/23/16 20:02 Chlorhexidine Gluconate (Chlorhexidine 2% Cloth) 3 pack Taper DAILY@04 TOP 11/09/16 04:00 11/05/17 03:59 12/19/16 04:00 Artificial Tears (Tears Naturale Opth Soln) 1 drop TID EACH EYE 11/09/16 18:00 12/19/16 08:33 Ferrous Sulfate (Ferrous Sulfate Liq) 300 mg BID PO 11/11/16 09:00 12/19/16 08:34 Epoetin Ty (Epogen Inj) 10,000 units MoWeFr SQ 11/13/16 06:00 12/18/16 08:19 Acetaminophen (Tylenol 650 Mg/ 20 ml Liq) 650 mg Q4H PRN OG-TUBE TEMP>101 11/12/16 17:00 11/21/16 04:43 Hyoscyamine Sulfate (Levsin Liq) 0.25 mg Q6H PRN PO ORAL SECRETIONS 11/30/16 16:00 12/05/16 09:19 Pantoprazole Sodium (Protonix Inj) 40 mg Q12H IV PUSH 12/15/16 11:00 12/18/16 23:17 Albumin Human (Albumin 25% Inj) 25 gm Q12H IV 12/18/16 11:00 12/20/16 10:00 12/18/16 23:17 Bumetanide (Bumex Inj) 3 mg BID@,23 IV PUSH 12/18/16 11:00 12/19/16 00:37 Insulin Detemir (Levemir Inj) 10 units Q12HR SQ 12/19/16 09:00 12/19/16 08:34 Insulin Human Regular (NovoLIN R SUPPLEMENTAL SCALE) 1 Q6HR SQ 12/19/16 06:45 12/19/16 06:45 Objective Remarks GENERAL: Elderly female supine in bed. SKIN: Warm and dry. HEAD: Normocephalic. EYES: No injection or drainage. NECK: Supple, trachea midline. +trach. CARDIOVASCULAR: +S1/S2 RESPIRATORY: anterior [place] clear. on mechanical ventilation. GASTROINTESTINAL: Abdomen soft, non-distended. receiving TF via PEG tube. EXTREMITIES: + anasarca. lower extremities in SCD's Assessment/Plan Assessment 86y/o female critically ill with poor prognosis following a large stroke some weeks ago. Hematology consulted for anemia secondary to GIB/acute illness with underlying coagulopathy and thrombocytopenia. Plan 1. Thrombocytopenia: HIT negative. no transfusion today. monitor CBC, coags. Attending Statement The exam, history, and the medical decision-making described in the above note were completed with the assistance of the mid-level provider. I reviewed and agree with the findings presented. I attest that I had a [id number] encounter with the patient on the same day, and personally performed and documented my assessment and findings in the medical record. Michelle Celis Dec 19, 2016 10:19 Alfonso Alaniz MD Dec 19, 2016 23:20
[2016-12-19] MEDS: ALBUMIN HUMAN 25% 25 GM/100 ML BAGP IV SCH ×2 (11:47→22:17)
[2016-12-19] MEDS: PANTOPRAZOLE SODIUM 40 MG VIAL IV PUSH SCH ×2 (11:47→22:17)
--- NOTE | 2016-12-19 12:49 | HHI.NPPN ---
Subjective History of Present Illness 86 year old with CVA, Resp failure s/p Trach/ PEG Additional Remarks Patient remains on the Vent, remain unresponsive. Objective Data Data 12/18/16 12/19/16 19:00 07:00 Intake Total 835 ml 1725 ml Output Total 350 ml 800 ml Balance 485 ml 925 ml IV Total 385 ml 439 ml Tube Feeding 350 ml 636 ml Albumin 100 ml Cryoprecipitate 430 ml Other 100 ml 120 ml Output Urine Total 350 ml 800 ml Vital Signs Date Time Temp Pulse Resp B/P Pulse Ox O2 Delivery O2 Flow Rate FiO2 12/19/16 11:38 96 30 12/19/16 08:48 93 30 12/19/16 06:00 87 12/19/16 04:26 98.4 89 14 120/58 94 12/19/16 04:10 96 30 12/19/16 04:00 93 12/19/16 04:00 30 12/19/16 02:00 91 12/19/16 01:14 93 30 12/19/16 00:00 87 12/19/16 00:00 30 12/18/16 22:23 93 30 12/18/16 22:00 80 12/18/16 21:00 98.3 88 13 137/63 92 12/18/16 20:00 30 12/18/16 20:00 87 12/18/16 19:39 93 30 12/18/16 18:00 81 12/18/16 16:00 30 12/18/16 16:00 81 12/18/16 16:00 98.8 80 14 13/69 95 12/18/16 16:00 95 30 12/18/16 14:00 81 -: 12/19/16 0333 12/19/16 0333 Physical Exam General Appearance: Pale Neck Neck Remarks s/p trach Pulmonary Resp Exam: Decreased Bases Cardiology CV Exam: Regular Gastrointestinal/Abdomen GI Exam: Soft, Non-Tender Extremeties Extremities Exam: Moderate Edema Assessment/Plan Problem List: (1) Acute renal failure Plan: Patient has multiple issues and has malnutrition with poor albumin contributing to low oncotic pressure, ATN creatinine stable: 3.37 --> 3.05 --> 2.7 -->2.7 -->. 2.6 -->2.6 --> 2.6, 2.8 increased to 3.2 now slightly better at 3.16. UOP 1125 on albumin with High dose Bumex for diuresis no meaningful recovery from CVA at this point Palliative care following. Apparently son would like to fly her to [place] for stem cell treatment. Continue to follow goals of care. 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 Ongoing anemia, continue to monitor. getting PRBC on regular interval agree with Palliative care ethics meeting with son as futile care with hopeless situation and no chance of meaningful recovery. Patient has BRIANA and not a candidate for residential HD. (2) Metabolic acidosis Plan: Stable, continue to monitor (3) Pneumonia Plan: On vent treated earlier with antibiotic (4) Urinary tract infection Plan: Escherichia coli she was treated (5) CVA (cerebral vascular accident) Plan: Massive stroke neurology following (6) Rhabdomyolysis Plan: This resolved (7) Hypernatremia Plan: Given 1L of DW over weekend improved Continue to monitor, repeat as necessary (8) Gastrointestinal hemorrhage Plan: Multiple PRBC given AVM poor prognosis Problem Qualifiers (1) Acute renal failure: Qualified Code: N17.9 - Acute renal failure, unspecified acute renal failure type (2) CVA (cerebral vascular accident): Qualified Code: I63.9 - Cerebrovascular accident (CVA), unspecified mechanism (3) Rhabdomyolysis: Qualified Code: M62.82 - Non-traumatic rhabdomyolysis Kristel Zuniga MD Dec 19, 2016 12:49
[2016-12-20] VITALS (19 sets, daily range): BP systolic 94–122; BP diastolic 48–58; PULSE 72–94; RESP 16–22; TEMP 97.6–98.2; O2SAT 94–99
[2016-12-20] MEDS: CHLORHEXIDINE GLUCONATE 2 % 1 PACK (2 CLOTHS) TOP SCH (01:18)
[2016-12-20] MEDS: BUMETANIDE INJ 1 MG/4 ML VIAL IV PUSH SCH (01:18)
--- NOTE | 2016-12-20 03:45 | RADRPT ---
EXAM DATE/TIME: 12/20/2016 02:14 [facility] COMPARISON: CHEST SINGLE AP, December 15, 2016, 10:46. INDICATIONS : Short of breath. MEDICAL HISTORY : Cerebrovascular disease. SURGICAL HISTORY : None. ENCOUNTER: Subsequent ACUITY: 4 - 6 days PAIN SCORE: Non-responsive. LOCATION: Bilateral chest FINDINGS: The tracheostomy tube remains in place. There is no pneumothorax. There continues to be interstitial infiltrates throughout both lung [place] without significant change compared to the prior exam. The he art size is enlarged but stable. No significant change compared to the prior exam. CONCLUSION: No significant interval change. Juan Miguel Alcazar MD on December 20, 2016 at 3:42 Board Certified Radiologist. This report was verified electronically.
[2016-12-20] MEDS: INSULIN NovoLIN REGULAR SUPPLEMENTAL SCALE SQ SCH ×5 (04:44→23:54)
[2016-12-20] MEDS: EPOETIN ALFA 10,000 UNITS/ML VIAL SQ SCH (04:46)
[2016-12-20 06:09] LABS: HEMATOCRIT 22.5 % (35.0-46.0); MEAN CELL VOLUME 91.1 FL (80.0-100.0); MEAN CORPUSCULAR HEMOGLOBIN 29.1 PG (27.0-34.0); MEAN CORPUSCULAR HGB CONC 31.9 % (32.0-36.0); PLATELET COUNT 38 TH/MM3 (150-450); RED BLOOD COUNT 2.47 MIL/MM3 (4.00-5.30); RED CELL DISTRIBUTION WIDTH 19.7 % (11.6-17.2); WHITE BLOOD COUNT 7.4 TH/MM3 (4.0-11.0)
[2016-12-20 06:13] LABS: HEMO FLAGS AUTO DIFF
[2016-12-20 06:26] LABS: BICARBONATE 25.4 MEQ/L (21.0-32.0); POTASSIUM 3.9 MEQ/L (3.5-5.1)
[2016-12-20 07:42] LABS: BANDS 4 % (0-6); CORRECTED NUCLEATED RBC 2 /100 WBC (0-0); EOSINOPHILS 9 % (0-4); MYELOCYTES 1 % (0-0); NEUTROPHIL # MANUAL DIFF 4.5 TH/MM3 (1.8-7.7); PLATELET ESTIMATE SMEAR LOW (NORMAL); PLATELET MORPHOLOGY ENLARGED (NORMAL); POLYS (SEG NEUTROPHILS) 56 % (16-70); SCAN/DIFF FINAL DIFF MANUAL; WBC DIFF SAMPLE 100
[2016-12-20 07:43] LABS: ACANTHOCYTES OCC (NORMAL)
[2016-12-20] MEDS: ARTIFICIAL TEARS OPTH SOLN 15 ML BTL EACH EYE SCH ×3 (08:51→17:20)
[2016-12-20] MEDS: FERROUS SULFATE 300 MG /5ML UDC PO SCH ×2 (08:51→20:06)
[2016-12-20] MEDS: SODIUM CHLORIDE 0.9% FLUSH 5 ML FLUSH IV FLUSH SCH ×2 (08:52→20:13)
[2016-12-20] MEDS: CHLORHEXIDINE 0.12% (ORAL KIT) 15 ML CUP MT SCH ×2 (08:53→20:00)
[2016-12-20] MEDS: INSULIN DETEMIR 100 UNITS/ML VIAL SQ SCH ×2 (08:56→20:06)
--- NOTE | 2016-12-20 09:08 | HHI.NPPN ---
Subjective History of Present Illness 86 year old with CVA, Resp failure s/p Trach/ PEG Additional Remarks Patient remains on the Vent, remain unresponsive. Objective Data Data 12/19/16 12/20/16 19:00 07:00 Intake Total 340 ml 588 ml Output Total 350 ml 500 ml Balance -10 ml 88 ml IV Total 340 ml Tube Feeding 488 ml Albumin 100 ml Output Urine Total 350 ml 500 ml # Bowel Movements 1 2 Vital Signs Date Time Temp Pulse Resp B/P Pulse Ox O2 Delivery O2 Flow Rate FiO2 12/20/16 07:54 96 30 12/20/16 06:00 76 12/20/16 04:22 96 30 12/20/16 04:00 30 12/20/16 04:00 80 12/20/16 04:00 97.7 80 16 122/58 96 12/20/16 02:00 79 12/20/16 01:16 94 30 12/20/16 00:00 97.8 81 16 105/54 96 12/20/16 00:00 81 12/20/16 00:00 30 12/19/16 22:40 98 30 12/19/16 22:00 84 12/19/16 20:00 30 12/19/16 20:00 97.7 87 16 125/57 92 12/19/16 20:00 87 12/19/16 20:00 97 30 12/19/16 18:00 92 12/19/16 16:00 30 12/19/16 16:00 97.9 91 16 121/58 94 12/19/16 16:00 91 12/19/16 15:44 94 30 12/19/16 14:00 88 12/19/16 12:00 88 12/19/16 12:00 98.4 88 16 110/58 95 12/19/16 12:00 30 12/19/16 11:38 96 30 12/19/16 10:00 91 -: 12/20/16 0515 12/20/16 0515 Physical Exam General Appearance: Pale Neck Neck Remarks s/p trach Pulmonary Resp Exam: Decreased Bases Cardiology CV Exam: Regular Gastrointestinal/Abdomen GI Exam: Soft, Non-Tender Extremeties Extremities Exam: Moderate Edema Assessment/Plan Problem List: (1) Acute renal failure Plan: Patient has multiple issues and has malnutrition with poor albumin contributing to low oncotic pressure, ATN creatinine stable: 3.37 --> 3.05 --> 2.7 -->2.7 -->. 2.6 -->2.6 --> 2.6, 2.8 increased to 3.2, 3.16. TODAY HIGH bun/CR 3.39 Na 147 UOP 1125 dc Bumex start NS AT 100 CC/HR Consider PRBC no meaningful recovery from CVA at this point Palliative care following. Apparently son would like to fly her to [place] for stem cell treatment. Continue to follow goals of care. 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 Ongoing anemia, continue to monitor. getting PRBC on regular interval agree with Palliative care ethics meeting with son as futile care with hopeless situation and no chance of meaningful recovery. Patient has BRIANA and not a candidate for [facility] HD. (2) Metabolic acidosis Plan: Stable, continue to monitor (3) Pneumonia Plan: On vent treated earlier with antibiotic (4) Urinary tract infection Plan: Escherichia coli she was treated (5) CVA (cerebral vascular accident) Plan: Massive stroke neurology following (6) Rhabdomyolysis Plan: This resolved (7) Hypernatremia Plan: Given 1L of DW over weekend improved Continue to monitor, repeat as necessary (8) Gastrointestinal hemorrhage Plan: Multiple PRBC given AVM poor prognosis Problem Qualifiers (1) Acute renal failure: Qualified Code: N17.9 - Acute renal failure, unspecified acute renal failure type (2) CVA (cerebral vascular accident): Qualified Code: I63.9 - Cerebrovascular accident (CVA), unspecified mechanism (3) Rhabdomyolysis: Qualified Code: M62.82 - Non-traumatic rhabdomyolysis Kristel Zuniga MD Dec 20, 2016 09:08
[2016-12-20] MEDS: PANTOPRAZOLE SODIUM 40 MG VIAL IV PUSH SCH ×2 (09:59→23:54)
[2016-12-20] MEDS: SODIUM CHLOR 0.9% 1000 ML INJ 1,000 ML IV SCH ×2 (09:59→17:21)
--- NOTE | 2016-12-20 11:17 | HHI.CCPN ---
Subjective Remarks/Hospital Course This is an 86yF with per report no other past medical history who presented to the ER after she was found unresponsive in her bed. According to ER reports, her family saw her normal last night when she had a fall, with unknown LOC. At that point, he helped her back to bed. However, this morning she did not wake up. On arrival to the ER, she was unresponsive only withdrawing to pain. she was intubated for airway protection and a poor GCS. CT head demonstrated massive posterior-circulation ischemic stroke. The patient is currently intubated and unresponsive and cannot provide any additional history. 11/09: No acute changes overnight. Palliative care team has consult with the family regarding goals of care. Currently the patient's sedation fentanyl infusion has been turned off without any response from patient. The patient notably does withdrawal to pain. 11/10: No change in neurological status. [id number]. The patient withdraws to pain 4 extremities. The patient currently on no sedation, fentanyl infusion discontinued yesterday. Tube feeds were initiated. The patient's urine culture grew back Escherichia coli, the patient was started on antibiotics. Extensive discussion with son regarding patient's neurological status, son Wyatt has had extensive discussion with palliative care.The son feels that yesterday when the patient was spoken to in Japanese the patient squeezed his hand and desires aggressive treatment. The patient's neuro status is unchanged, totally unresponsive with occasional reflexive twitching of feet B/L. Follow-up with neurology Dr. Pack, guarding any further imaging studies. 11/13: No change in neuro exam. Palliative care following. Family wanting full aggressive care. Palliative care will address early trach PEG 11/14: No improvement in neuro status. Son has not made decisions regarding trach and PEG. Apparently he wants to wait longer to see any improvement 11/15: Remains unresponsive. Neuro exam with extensor posturing-unchanged. Son requesting aggressive care. Continues to have low-grade fever 11/16: Clinically no improvement. Tolerates CPAP. Unable to extubate as patient will not protect airway 11/17: Tolerating C Pap but no change in neuro exam. Hemoglobin noted to be 6.8 hemodynamically stable 11/18: Became tachycardic and hypotensive early a.m., placed on assist control. Otherwise neuro exam remains unchanged 11/19: Continues to spike fever Tmax 102, started on vancomycin and cefepime in addition to Levaquin yesterday. Currently only low-grade fever. Received 2 units of blood for hemoglobin of 5.3. CBC pending at this time. No improvement in neuro exam 11/20: White count is 18.3 today, MAXIMUM TEMPERATURE 103.1. Chest x-ray showing right sided infiltrate. Urine culture with gram-negative rods and Brionna albicans. ID consulted Diflucan added 11/21/16: Tmax 101.5. Bilateral lung infiltrates, R>L but slightly improved. No improvement in neuro exam. ID consulted and following. 11/22/16: No fever. CT chest- moderate to large R pleural effusion, bilateral lung infiltrates. ABX per ID. CXR today shows increasing bilateral infiltrates and effusion right more than left. Almost near complete infiltrates on the right lung [place]. Vaginally worsening creatinine today 1.45 indicating multiorgan failure 11/23/16: Hb 9.8 today after 2U PRBC yesterday. Plan for tracheostomy today. INR normal platelet count 116. Worsening creatinine today is 1.6. UO 550 ml in 24 hours. 1L NS bolus and 75 ml per hour maintenance NS. Started on Dopamine 3 mcg per min to maintain MAP>65 11/24 Patient is on ventilator via trach. Afebrile. On Dopamine 4 mics. 11/25 No acute events overnight. s/p EGD yesterday showed mild gastritis unable to place PEG tube endoscopically. Remains on Dopamine 4 mics. On no sedation unresponsive. 11/26 No acute events overnight. On CPAP with PS 20, PEEP: 5 and FIO2 40%. Afebrile. Off Dopamine. Afebrile. 11/27 Patient remains on ventilator via trach on no drips. Afebrile. For PEG tube placement by IR today. 11/28 Patient s/p PEG tube placement by IR yesterday, s/p Right thoracentesis with removal 700ml CXR showed better aeration of lungs, Hgb 6.7 this morning 2units PRBC ordered. Renal function worse with Cr: 3.40 from 2.85 . 11/29: Remains encephalopathic on mechanical ventilation via tracheostomy. 11/30: Remains encephalopathic on mechanical ventilation via tracheostomy. 12/01 Patient s/p transfusion 1unit PRBC last night for Hgb 5.8 in addition to 2L NS. Hgb 6.5 this morning. 12/02: Afebrile. The patient underwent CT-guided thoracentesis yesterday with approximately 600 cc removed. Chest x-ray pending this a.m.. Patient received packed red blood cell 2 units yesterday. Hemoglobin 7.4. Pending EGD today. 12/03:The patient underwent EGD yesterday with Dr. Farnsworth patient was noted to have a large active bleeding ulcer in the body of the stomach, multiple AVMs. Multiple ablations performed. This a.m. hemoglobin dropped to 6.1, platelet count 38. The patient was transfused 2 PRBC, and a unit of platelets. Patient still not relieved receiving any nutrition will begin PPN today. The patient continues to have copious amounts of melena with fecal incontinence apparatus in place. 12/04: The patient continues to have copious melena. PT INR drawn last evening INR was noted to be 13.5. The patient received KCentra, and current INR 1.3 the family requests aggressive measures to be continued. No further interventions from gastroenterology per . IR deemed the patient not a candidate for arteriography or endovascular treatment. 12/05: Patient's current medical status unchanged. Large tarry stools, acute blood loss anemia continues in conjunction with thrombocytopenia. During the night the nurse reported a malodorous scent was noted in free water flush container for instillation through G-tube. It was noted to be possibly fish oil , patient's son was in the room during that time. Container removed. The patient is noted to have a hemoglobin level of 5.8 today will receive 2 units of packed red blood cells and 1 unit of platelets today. 12/06: The patient continues to have copious melena. The patient received one 6 pack of platelets, and 2 units of blood yesterday. Tonight as reported by the nurse in the evening the son continue to utilize fish oil in the patient's free water, which was removed by the nurse. Ethics committee consult was initiated with Dr. Bauer yesterday, regarding assessing goals of care. 12/07: The patient's INR 1.3. Patient received 2 units of blood and one 6 pack of platelets yesterday. Awaiting ethics committee meeting with Dr. Bauer. The patient continues to require transfusions. 4/14: Patient was noted to have a drop in hemoglobin this a.m.. The patient is being transfused 2 units of PRBCs, with noted difficulty obtaining unit secondary to antibodies. Hematology will be consulted. Bioethics committee meeting planned to convene in one week, patient's son has agreed to attend. 12/09: Afebrile. No change in neuro status. Wound Care consult for left and blisters on back, orders provided. Hemoglobin stable post 2 units packed red blood cells yesterday. 12/10: The patient's hemoglobin 7.6 yesterday, hemoglobin pending for today. Overnight RN reported family member son continually putting some chemicals in the gastric tube of the patient, risk management notified. Hematology oncology has evaluated the patient, awaiting bioethics committee meeting scheduled for next week. The patient continues on PPN for nutritional support. 12/11 Patient remains on ventilator via trach on no sedation unresponsive. Afebrile.On Protonix drip and PPN. 12/12 No acute events overnight. Afebrile. Hgb 6.8 this morning 2 units PRBC ordered . 12/13 Patient remains on ventilator via trach, s/p transfusion 2units PRBC yesterday Hgb 9.1 this morning. Afebrile. On Protonix drip. 12/14 Patient s/p EGD yesterday which showed esophageal varices and hiatal hernia. On Ventilator via trach. H/H stable. On Protonix drip. 12/15 No acute events overnight. Afebrile. 12/16 Patient remains on ventilator via trach. Afebrile. 12/17 No acute events overnight. Afebrile. 12/18 Patient remains on ventilator via trach. Afebrile. Renal function continue to decline with Cr: 3.2 today from 3.0 with UO 805ml in 24 hrs. Afebrile. 12/19 No acute events overnight. Patient was given 2units Cryo and Vitamin K 5mg x1 by heme. On CPAP with FIO2 30%. Afebrile. Cr: 3.16 from 3.20 with UOP 1150ml in 24 hrs. 12/20: Neuro status remains unchanged. Had some black tarry stools reportedly. Objective Vital Signs Date Time Temp Pulse Resp B/P Pulse Ox O2 Delivery O2 Flow Rate FiO2 12/20/16 10:00 72 12/20/16 08:00 30 12/20/16 08:00 97.6 18 94/57 97 Intake and Output 12/19/16 12/19/16 12/20/16 08:00 16:00 00:00 Intake Total 751 ml 340 ml Output Total 250 ml 350 ml Balance 501 ml -10 ml Result Diagram: 12/20/16 0515 12/20/16 0515 Imaging Last Impressions Chest X-Ray 12/15/16 0000 Signed Impressions: Service Date/Time: Thursday, December 15, 2016 10:46 - CONCLUSION: No appreciable change. Belkis Rodriguez MD Upper Extremity Ultrasound 12/14/16 0000 Signed Impressions: Service Date/Time: November 14:39 - CONCLUSION: Thrombus within the cephalic vein. Belkis Rodriguez MD Thoracentesis 12/01/16 0000 Signed Impressions: Service Date/Time: Thursday, December 01, 2016 18:56 - CONCLUSION: Uncomplicated CT-guided thoracentesis. Jeffery Alvarado MD Chest CT 12/01/16 0000 Signed Impressions: Service Date/Time: Thursday, December 01, 2016 13:09 - CONCLUSION: Bilateral pleural effusion, larger on the right than the left. Mack Cao MD FACR Abdomen/Pelvis CT 12/01/16 0000 Signed Impressions: Service Date/Time: Thursday, December 01, 2016 13:09 - CONCLUSION: 1. Right inguinal hernia containing only fluid. 2. Generalized anasarca. 3. Trace ascites. 4. Bilateral pleural effusions, larger on the right than the left. Mack Cao MD FACR Abdomen Ultrasound 11/27/16 0000 Signed Impressions: Service Date/Time: Sunday, November 27, 2016 08:35 - CONCLUSION: Stone in the neck of the gallbladder. Trace ascites and mild splenomegaly Jeffery Alvarado MD Gastrostomy Tube Placement 11/24/16 0000 Signed Impressions: Service Date/Time: Sunday, November 27, 2016 14:34 - CONCLUSION: Uncomplicated gastrostomy tube placement as above. Kirit Alcantar MD Head CT 11/08/16 0107 Signed Impressions: Service Date/Time: Tuesday, November 08, 2016 17:06 - CONCLUSION: Low density seen throughout the posterior circulation regions including the susan and midbrain, cerebellar hemispheres, occipital and posterior medial temporal lobes and right thalamus. This likely represents areas of infarction involving the posterior territory circulation. Jeffery Zhong MD Carotid Artery Ultrasound 11/08/16 0000 Signed Impressions: Service Date/Time: Tuesday, November 08, 2016 22:24 - CONCLUSION: Mild calcified plaque at the carotid bulbs. No evidence of hemodynamically significant carotid stenosis. José Luis Beltran MD Objective Remarks GENERAL: Patient is 86 yo on ventilator via trach. SKIN: Warm and dry. HEAD: Normocephalic. EYES: No scleral icterus. No injection or drainage. NECK: Supple, trachea midline. No JVD or lymphadenopathy. CARDIOVASCULAR: Regular rate and rhythm without murmurs, gallops, or rubs. RESPIRATORY: Breath sounds equal bilaterally. Few coarse BS. 8.0 trach in situ GASTROINTESTINAL: Abdomen soft, non-tender, nondistended. PEG in place MUSCULOSKELETAL: No cyanosis, peripheral 2+ edema bilateral upper extremities. Left heel gauze dressing Neuro: Positive corneal reflex. LIDYA. Negative cough. Negative gag. Extensor posturing in uppers. Downgoing Babinski. 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 She was last seen normal, nearly 24 hours, she was not a candidate for any interventional therapy. Unfortunately, given her age, and the extent of the stroke, her prognosis for any reasonable neurologic function is quite poor. Active GI bleed discussed with family, and patient's poor prognosis. Her family continues to express wishes for aggressive medical management. Bioethics has been consulted. Active problems: Massive posterior circulation ischemic CVA Hypoxic and hypercarbic respiratory failure Severe encephalopathy secondary to stroke Severe sepsis Healthcare associated pneumonia with pleural effusion Acute kidney injury UTI Anemia-acute and chronic Hyperglycemia of critical illness Thrombocytopenia Active GI bleed with AVM's Plan Neuro: Monitor neuro status per ICU protocol - Avoid sedatives. Neuro is following -11/08 CT brain: Low density seen throughout the posterior circulation regions including the susan and midbrain, cerebellar hemispheres, occipital and posterior medial temporal lobes and right thalamus. This likely represents areas of infarction involving the posterior territory circulation -GCS 3T, decerebrate posturing Resp: -Continue with vent support keep sat >92% Vent bundle, Head of bed 30, bronchodilators-scheduled -s/p trach 11/23, pulm toilet, trach care -SBT daily as lia. -s/p CT guided right thoracentesis 11/27 with removal 700ml clear fluid. CVS: Monitor HR and BP keep MAP>65mmhg 2-D echo -EF 5560 %, mild aortic mitral and tricuspid regurgitation, No RWMA. 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 --IR intervention-patient is not a candidate. Continue with Protonix drip. -s/p PEG tube placement by IR 11/27 , TF held (Jevity 1.5 with goal rate 45 ml/hr ) secondary to GI bleeding -s/p EGD 11/24 showed mild gastritis unable to place PEG tube endoscopically. -Monitor LFT's, US abdomen: Stone in neck of gall bladder, no hydronephrosis -12/01 CT abdomen/pelvis-generalized anasarca, trace ascites, bilateral pleural effusions right greater than left -Continue with TF- Jevity 1.5 @45mlhr, : -Monitor renal function, I/O's, electrolytes replacement as needed. Avoid nephrotoxins Cr: 3.16 today from 3.2 UOP: 1150 ml in 24 hrs On Bumex 3mg BID, Albumin 25gms Q12, d/c NS ID: -Off abx per ID monitor for signs of infections ( Fever, WBC) -Urine culture 11/18/16 with Brionna albicans and E coli NOT S Levaquin, but S to zosyn -Infectious disease Dr. Wen, sputum cx 11/23: nl resp erica Heme Monitor CBC. On Fe Sulfate 300mg BID s/p Vitamin K 5mg x1 nad 2 units Cryo last night. Monitor INR/PT and Fibrinogen level( 110, INR 1.8 last night)) Hematology is following-Dr. Alaniz. On Epogen M,W,F. Heme is following Hep Plt ab negative Endo: --Increase SSI High scale , increase [id number] u Q12 Msk: --Red and sacral area, left heel wound --12/06 Wound care consulted --Specialty bed-Airflow Proph: Subcutaneous heparin on hold since 11/23 secondary to thrombocytopenia, anemia and GI bleed. SCDs for DVT prophylaxis Protonix for GI prophylaxis RUE US.Thrombus in cephalic veins Not on AC due to GI bleed , anemia requiring blood transfusion and thrombocytopenia with PLT <50 Poor prognosis. -Palliative care is following. Plan for ethics meeting with son. IV access: Peripheral IV's Level 3 Nate Quintana MD Dec 20, 2016 11:17
--- NOTE | 2016-12-20 22:34 | PD.ONC.PN ---
Subjective Subjective Remarks clinical status unchanged remains very ill and on mechanical ventilation Objective Data Date Time Temp Pulse Resp B/P Pulse Ox O2 Delivery O2 Flow Rate FiO2 12/20/16 22:06 99 30 12/20/16 20:00 94 12/20/16 20:00 30 12/20/16 20:00 98.2 94 16 108/54 95 12/20/16 19:12 96 30 12/20/16 18:00 84 12/20/16 16:00 81 12/20/16 16:00 30 12/20/16 16:00 98.1 81 18 107/54 95 12/20/16 15:25 96 30 12/20/16 14:00 79 12/20/16 12:00 74 12/20/16 12:00 97.6 73 22 113/48 97 12/20/16 12:00 30 12/20/16 11:45 98 30 12/20/16 10:00 72 12/20/16 08:00 30 12/20/16 08:00 97.6 73 18 94/57 97 12/20/16 08:00 30 12/20/16 08:00 73 12/20/16 07:54 96 30 12/20/16 06:00 76 12/20/16 04:22 96 30 12/20/16 04:00 30 12/20/16 04:00 80 12/20/16 04:00 97.7 80 16 122/58 96 12/20/16 02:00 79 12/20/16 01:16 94 30 12/20/16 00:00 97.8 81 16 105/54 96 12/20/16 00:00 81 12/20/16 00:00 30 12/19/16 22:40 98 30 12/20/16 12/20/16 12/20/16 07:00 15:00 23:00 Intake Total 588 ml 839 ml Output Total 500 ml 250 ml Balance 88 ml 589 ml Result Diagram: 12/20/1651412/20/16514 Laboratory Results Laboratory Tests Test 12/20/16 05:15 White Blood Count 7.4 TH/MM3 Red Blood Count 2.47 MIL/MM3 Hemoglobin 7.2 GM/DL Hematocrit 22.5 % Mean Corpuscular Volume 91.1 FL Mean Corpuscular Hemoglobin 29.1 PG Mean Corpuscular Hemoglobin 31.9 % Concent Red Cell Distribution Width 19.7 % Platelet Count 38 TH/MM3 Mean Platelet Volume 11.6 FL Neutrophils (%) (Auto) % Lymphocytes (%) (Auto) % Monocytes (%) (Auto) % Eosinophils (%) (Auto) % Basophils (%) (Auto) % Neutrophils # (Auto) TH/MM3 Lymphocytes # (Auto) TH/MM3 Monocytes # (Auto) TH/MM3 Eosinophils # (Auto) TH/MM3 Basophils # (Auto) TH/MM3 CBC Comment AUTO DIFF Differential Total Cells 100 Counted Neutrophils % (Manual) 56 % Band Neutrophils % 4 % Lymphocytes % 16 % Monocytes % 14 % Eosinophils % 9 % Neutrophils # (Manual) 4.5 TH/MM3 Myelocytes 1 % Nucleated Red Blood Cells 2 /100 WBC Differential Comment FINAL DIFF MANUAL Platelet Estimate LOW Platelet Morphology Comment ENLARGED Acanthocytes OCC Sodium Level 147 MEQ/L Potassium Level 3.9 MEQ/L Chloride Level 111 MEQ/L Carbon Dioxide Level 25.4 MEQ/L Anion Gap 11 MEQ/L Blood Urea Nitrogen 132 MG/DL Creatinine 3.39 MG/DL Estimat Glomerular Filtration 13 ML/MIN Rate Random Glucose 297 MG/DL Calcium Level 8.5 MG/DL Imaging Studies Last 24 hours Impressions Chest X-Ray 12/20/16 0000 Signed Impressions: Service Date/Time: Tuesday, December 20, 2016 02:14 - CONCLUSION: No significant interval change. Juan Miguel Alcazar MD Administered Medications Medications (Trade) Dose Ordered Sig/Swati Route PRN Reason Start Time Stop Time Status Last Admin Dose Admin Chlorhexidine Gluconate (Peridex 0.12% Liq) 15 ml BID@08,20 MT 11/08/16 20:00 12/20/16 20:00 IV Flush (NS Flush) 2 ml BID IV FLUSH 11/08/16 21:00 12/20/16 08:52 Ondansetron HCl (Zofran Inj) 4 mg Q6H PRN IV NAUSEA OR VOMITING 11/08/16 19:45 11/30/16 21:43 Heparin Sodium (Porcine) (Heparin Inj) 5,000 units Q12H SQ 11/08/16 20:00 Hold 11/23/16 20:02 Chlorhexidine Gluconate (Chlorhexidine 2% Cloth) 3 pack Taper DAILY@04 TOP 11/09/16 04:00 11/05/17 03:59 12/20/16 01:18 Artificial Tears (Tears Naturale Opth Soln) 1 drop TID EACH EYE 11/09/16 18:00 12/20/16 17:20 Ferrous Sulfate (Ferrous Sulfate Liq) 300 mg BID PO 11/11/16 09:00 12/20/16 20:06 Epoetin Ty (Epogen Inj) 10,000 units MoWeFr SQ 11/13/16 06:00 12/20/16 04:46 Acetaminophen (Tylenol 650 Mg/ 20 ml Liq) 650 mg Q4H PRN OG-TUBE TEMP>101 11/12/16 17:00 11/21/16 04:43 Hyoscyamine Sulfate (Levsin Liq) 0.25 mg Q6H PRN PO ORAL SECRETIONS 11/30/16 16:00 12/05/16 09:19 Pantoprazole Sodium (Protonix Inj) 40 mg Q12H IV PUSH 12/15/16 11:00 12/20/16 09:59 Insulin Detemir (Levemir Inj) 10 units Q12HR SQ 12/19/16 09:00 12/20/16 20:06 Insulin Human Regular 1 1 Q6HR SQ 12/19/16 06:45 12/20/16 17:21 Sodium Chloride (NS 1000 ml Inj) 1,000 ml @ 100 mls/hr Q10H IV 12/20/16 09:15 12/20/16 17:21 Objective Remarks GENERAL: acutely ill, on ventilator CARDIOVASCULAR: Regular rate and rhythm without murmurs. RESPIRATORY: Breath sounds coarse. GASTROINTESTINAL: Abdomen soft, non-tender, nondistended. EXTREMITIES: No cyanosis, edematous Assessment/Plan Assessment 86y/o female critically ill with poor prognosis following a large stroke some weeks ago. Hematology consulted for anemia secondary to GIB/acute illness with underlying coagulopathy and thrombocytopenia. Plan 1. Thrombocytopenia 2/2 to acute illness/consumption HIT negative. no transfusion today. monitor CBC, coags. 2. Anemia: no pRBC today. transfuse to keep Hb>7 3. DIC and Coagulopathy: check daily Fibrinogen in Alfonso Alaniz MD Dec 20, 2016 22:34
[2016-12-21] VITALS (19 sets, daily range): BP systolic 106–125; BP diastolic 49–60; PULSE 72–95; RESP 15–23; TEMP 97.6–98.4; O2SAT 94–100
[2016-12-21 00:43] LABS: INTERNATIONAL NORMALIZED RATIO 1.8 RATIO; PROTHROMBIN TIME - PATIENT 20.5 SEC (9.8-11.6)
[2016-12-21] MEDS: CHLORHEXIDINE GLUCONATE 2 % 1 PACK (2 CLOTHS) TOP SCH (04:00)
[2016-12-21] MEDS: SODIUM CHLOR 0.9% 1000 ML INJ 1,000 ML IV SCH ×2 (05:06→12:37)
[2016-12-21] MEDS: INSULIN NovoLIN REGULAR SUPPLEMENTAL SCALE SQ SCH ×4 (05:14→23:34)
[2016-12-21] MEDS: SODIUM CHLORIDE 0.9% FLUSH 5 ML FLUSH IV FLUSH SCH ×2 (08:04→20:43)
[2016-12-21] MEDS: ARTIFICIAL TEARS OPTH SOLN 15 ML BTL EACH EYE SCH ×3 (08:04→18:31)
[2016-12-21] MEDS: FERROUS SULFATE 300 MG /5ML UDC PO SCH ×2 (08:04→20:43)
[2016-12-21] MEDS: CHLORHEXIDINE 0.12% (ORAL KIT) 15 ML CUP MT SCH ×2 (08:05→20:00)
[2016-12-21] MEDS: INSULIN DETEMIR 100 UNITS/ML VIAL SQ SCH ×2 (08:05→20:43)
[2016-12-21 08:55] LABS: AUTOMATED NEUTROPHIL # 3.6 TH/MM3 (1.8-7.7); BASOPHIL % 0.3 % (0.0-2.0); EOSINOPHIL # 0.8 TH/MM3 (0-0.4); EOSINOPHIL % 12.1 % (0.0-4.0); LYMPH % 16.2 % (9.0-44.0); LYMPHOCYTE # 1.1 TH/MM3 (1.0-4.8); MEAN CELL VOLUME 90.4 FL (80.0-100.0); MEAN CORPUSCULAR HEMOGLOBIN 28.6 PG (27.0-34.0); MEAN CORPUSCULAR HGB CONC 31.7 % (32.0-36.0); MONO % 17.5 % (0.0-8.0); NEUT % 53.9 % (16.0-70.0); PLATELET COUNT 46 TH/MM3 (150-450); RED BLOOD COUNT 2.35 MIL/MM3 (4.00-5.30); RED CELL DISTRIBUTION WIDTH 19.6 % (11.6-17.2); WHITE BLOOD COUNT 6.6 TH/MM3 (4.0-11.0)
[2016-12-21 09:05] LABS: HEMO FLAGS AUTO DIFF
[2016-12-21 09:07] LABS: HEMATOCRIT 21.3 % (35.0-46.0)
[2016-12-21] MEDS ORDERED: SODIUM CHLOR 0.9% 250 ML INJ 250 ML IV ONE (09:15)
[2016-12-21 09:45] LABS: ALKALINE PHOSPHATASE 109 U/L (45-117); ALT (GPT) 148 U/L (10-53); ANION GAP 11 MEQ/L (5-15); AST (GOT) 762 U/L (15-37); BICARBONATE 22.2 MEQ/L (21.0-32.0); BLOOD UREA NITROGEN 128 MG/DL (7-18); CHLORIDE 116 MEQ/L (98-107); GLOMERULAR FILTRATION RATE 13 ML/MIN (>89); POTASSIUM 3.7 MEQ/L (3.5-5.1); SODIUM (NA) 149 MEQ/L (136-145); TOTAL BILIRUBIN ADULT 7.7 MG/DL (0.2-1.0)
--- NOTE | 2016-12-21 09:45 | HHI.NPPN ---
Subjective History of Present Illness 86 year old with CVA, Resp failure s/p Trach/ PEG Additional Remarks Patient remains on the Vent, remain unresponsive. Objective Data Data 12/20/16 12/21/16 19:00 07:00 Intake Total 839 ml 2194 ml Output Total 250 ml 650 ml Balance 589 ml 1544 ml IV Total 415 ml 1506 ml Tube Feeding 424 ml 628 ml Other 60 ml Output Urine Total 250 ml 650 ml # Bowel Movements 2 2 Vital Signs Date Time Temp Pulse Resp B/P Pulse Ox O2 Delivery O2 Flow Rate FiO2 12/21/16 08:32 100 30 12/21/16 06:00 72 12/21/16 04:12 98 30 12/21/16 04:00 89 12/21/16 04:00 30 12/21/16 04:00 98.0 89 15 118/54 97 12/21/16 02:00 95 12/21/16 01:08 94 30 12/21/16 00:00 30 12/21/16 00:00 98.4 82 15 106/53 95 12/21/16 00:00 82 12/20/16 22:06 99 30 12/20/16 22:00 83 12/20/16 20:00 94 12/20/16 20:00 30 12/20/16 20:00 98.2 94 16 108/54 95 12/20/16 19:12 96 30 12/20/16 18:00 84 12/20/16 16:00 81 12/20/16 16:00 30 12/20/16 16:00 98.1 81 18 107/54 95 12/20/16 15:25 96 30 12/20/16 14:00 79 12/20/16 12:00 74 12/20/16 12:00 97.6 73 22 113/48 97 12/20/16 12:00 30 12/20/16 11:45 98 30 12/20/16 10:00 72 -: 12/21/16 0815 12/20/16 0515 Physical Exam General Appearance: Pale Neck Neck Remarks s/p trach Pulmonary Resp Exam: Decreased Bases Cardiology CV Exam: Regular Gastrointestinal/Abdomen GI Exam: Soft, Non-Tender Extremeties Extremities Exam: Moderate Edema Assessment/Plan Problem List: (1) Acute renal failure Plan: Patient has multiple issues and has malnutrition with poor albumin contributing to low oncotic pressure, ATN creatinine stable: 3.37 --> 3.05 --> 2.7 -->2.7 -->. 2.6 -->2.6 --> 2.6, 2.8 increased to 3.2, 3.16. bun/CR 3.39 , today labs pending Hb dropped UOP 900 cc dc Bumex start NS AT 100 CC/HR Consider PRBC Hb 6.7 tried calling son no response she is in multi organ failure, advance kidney failure poor outcome anticipated I would not advice dialysis is this patient Bioethics on case no meaningful recovery from CVA at this point Palliative care following. Apparently son would like to fly her to [place] for stem cell treatment. Continue to follow goals of care. 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 Ongoing anemia, continue to monitor. getting PRBC on regular interval agree with Palliative care ethics meeting with son as futile care with hopeless situation and no chance of meaningful recovery. Patient has BRIANA and not a candidate for correction HD. (2) Metabolic acidosis Plan: Stable, continue to monitor (3) Pneumonia Plan: On vent treated earlier with antibiotic (4) Urinary tract infection Plan: Escherichia coli she was treated (5) CVA (cerebral vascular accident) Plan: Massive stroke neurology following (6) Rhabdomyolysis Plan: This resolved (7) Hypernatremia Plan: Given 1L of DW over weekend improved Continue to monitor, repeat as necessary (8) Gastrointestinal hemorrhage Plan: Multiple PRBC given AVM poor prognosis Problem Qualifiers (1) Acute renal failure: Qualified Code: N17.9 - Acute renal failure, unspecified acute renal failure type (2) CVA (cerebral vascular accident): Qualified Code: I63.9 - Cerebrovascular accident (CVA), unspecified mechanism (3) Rhabdomyolysis: Qualified Code: M62.82 - Non-traumatic rhabdomyolysis Kristel Zuniga MD Dec 21, 2016 09:45
[2016-12-21 09:49] LABS: BANDS 3 % (0-6); BASOPHILS 1 % (0-2); CORRECTED NUCLEATED RBC 2 /100 WBC (0-0); EOSINOPHILS 11 % (0-4); MYELOCYTES 1 % (0-0); NEUTROPHIL # MANUAL DIFF 4.3 TH/MM3 (1.8-7.7); OVALOCYTES 1+ (NORMAL); PLATELET ESTIMATE SMEAR LOW (NORMAL); PLATELET MORPHOLOGY NORMAL (NORMAL); POLYS (SEG NEUTROPHILS) 61 % (16-70); SCAN/DIFF FINAL DIFF MANUAL; TARGET CELLS 1+ (NORMAL); WBC DIFF SAMPLE 100
[2016-12-21] MEDS: PANTOPRAZOLE SODIUM 40 MG VIAL IV PUSH SCH ×2 (10:23→23:34)
--- NOTE | 2016-12-21 12:34 | HHI.HCPN ---
Lengthy conversation with son, Wyatt to provide medical update. He seems to continue to struggle with decisions; conflicted by things he reads on the internet, trying to make sure his aunt is okay with decisions and trying to make decisions he will be able to live with. He "doesn't believe she won't wake up." He feels it is too soon to give up on her. He verbalizes trying to set a date in his head, feels pressure to make decisions he is not ready to make. I offered a family meeting with him and his aunt to try to sit down and help them sort through goals of care and setting limits of aggressive care. He is going to try to get some time off work to come for a meeting (offered a letter for his employer). Tentative meeting Sunday12/26/16. I provided my cell number. He will call with a time for meeting. For now plan to continue aggressive care, blood products and FULL CODE. . ZAIN TITUS Dec 21, 2016 12:34
--- NOTE | 2016-12-21 22:26 | PD.ONC.PN ---
Subjective Subjective Remarks remains critically ill, unresponsive Son wants to continue full support dark tarry stools d/w rn Objective Data Date Time Temp Pulse Resp B/P Pulse Ox O2 Delivery O2 Flow Rate FiO2 12/21/16 20:00 30 12/21/16 20:00 86 12/21/16 20:00 98.1 86 19 125/60 100 12/21/16 19:10 95 30 12/21/16 18:00 81 12/21/16 16:36 97 30 12/21/16 16:00 98.0 79 23 112/55 95 12/21/16 16:00 80 12/21/16 16:00 30 12/21/16 14:00 78 12/21/16 12:59 97 30 12/21/16 12:00 97.9 77 20 111/53 98 12/21/16 12:00 77 12/21/16 12:00 30 12/21/16 10:00 75 12/21/16 08:32 100 30 12/21/16 08:00 30 12/21/16 08:00 75 12/21/16 08:00 97.6 75 22 113/49 100 12/21/16 06:00 72 12/21/16 04:12 98 30 12/21/16 04:00 89 12/21/16 04:00 30 12/21/16 04:00 98.0 89 15 118/54 97 12/21/16 02:00 95 12/21/16 01:08 94 30 12/21/16 00:00 30 12/21/16 00:00 98.4 82 15 106/53 95 12/21/16 00:00 82 12/21/16 12/21/16 12/21/16 07:00 15:00 23:00 Intake Total 832 ml 1322 ml Output Total 250 ml 400 ml Balance 582 ml 922 ml Result Diagram: 12/21/16 0815 12/21/16 0815 Laboratory Results Laboratory Tests Test 12/20/16 12/21/16 12/21/16 23:46 03:25 08:15 Prothrombin Time 20.5 SEC Prothromb Time International 1.8 RATIO Ratio Fibrinogen 154 mg/dL White Blood Count 6.6 TH/MM3 Red Blood Count 2.35 MIL/MM3 Hemoglobin 6.7 GM/DL Hematocrit 21.3 % Mean Corpuscular Volume 90.4 FL Mean Corpuscular Hemoglobin 28.6 PG Mean Corpuscular Hemoglobin 31.7 % Concent Red Cell Distribution Width 19.6 % Platelet Count 46 TH/MM3 Mean Platelet Volume 10.7 FL Neutrophils (%) (Auto) 53.9 % Lymphocytes (%) (Auto) 16.2 % Monocytes (%) (Auto) 17.5 % Eosinophils (%) (Auto) 12.1 % Basophils (%) (Auto) 0.3 % Neutrophils # (Auto) 3.6 TH/MM3 Lymphocytes # (Auto) 1.1 TH/MM3 Monocytes # (Auto) 1.2 TH/MM3 Eosinophils # (Auto) 0.8 TH/MM3 Basophils # (Auto) 0.0 TH/MM3 CBC Comment AUTO DIFF Differential Total Cells 100 Counted Neutrophils % (Manual) 61 % Band Neutrophils % 3 % Lymphocytes % 11 % Monocytes % 12 % Eosinophils % 11 % Basophils % 1 % Neutrophils # (Manual) 4.3 TH/MM3 Myelocytes 1 % Nucleated Red Blood Cells 2 /100 WBC Differential Comment FINAL DIFF MANUAL Platelet Estimate LOW Platelet Morphology Comment NORMAL Target Cells 1+ Ovalocytes 1+ Sodium Level 149 MEQ/L Potassium Level 3.7 MEQ/L Chloride Level 116 MEQ/L Carbon Dioxide Level 22.2 MEQ/L Anion Gap 11 MEQ/L Blood Urea Nitrogen 128 MG/DL Creatinine 3.27 MG/DL Estimat Glomerular Filtration 13 ML/MIN Rate Random Glucose 228 MG/DL Calcium Level 8.2 MG/DL Total Bilirubin 7.7 MG/DL Aspartate Amino Transf 762 U/L (AST/SGOT) Alanine Aminotransferase 148 U/L (ALT/SGPT) Alkaline Phosphatase 109 U/L Total Protein 5.4 GM/DL Albumin 2.9 GM/DL Blood Type O POSITIVE Antibody Screen POSITIVE Antibody Identification Anti-Angella Direct Antiglobulin Test WEAKLY (Klaus) POSITIVE Crossmatch Leukocyte-Reduced Red Blood Cells Blood Bank Comment Administered Medications Medications (Trade) Dose Ordered Sig/Swati Route PRN Reason Start Time Stop Time Status Last Admin Dose Admin Chlorhexidine Gluconate (Peridex 0.12% Liq) 15 ml BID@08,20 MT 11/08/16 20:00 12/21/16 20:00 IV Flush (NS Flush) 2 ml BID IV FLUSH 11/08/16 21:00 12/21/16 08:04 Ondansetron HCl (Zofran Inj) 4 mg Q6H PRN IV NAUSEA OR VOMITING 11/08/16 19:45 11/30/16 21:43 Heparin Sodium (Porcine) (Heparin Inj) 5,000 units Q12H SQ 11/08/16 20:00 Hold 11/23/16 20:02 Chlorhexidine Gluconate (Chlorhexidine 2% Cloth) 3 pack Taper DAILY@04 TOP 11/09/16 04:00 11/05/17 03:59 12/20/16 01:18 Artificial Tears (Tears Naturale Opth Soln) 1 drop TID EACH EYE 11/09/16 18:00 12/21/16 18:31 Ferrous Sulfate (Ferrous Sulfate Liq) 300 mg BID PO 11/11/16 09:00 12/21/16 20:43 Epoetin Ty (Epogen Inj) 10,000 units MoWeFr SQ 11/13/16 06:00 12/20/16 04:46 Acetaminophen (Tylenol 650 Mg/ 20 ml Liq) 650 mg Q4H PRN OG-TUBE TEMP>101 11/12/16 17:00 11/21/16 04:43 Hyoscyamine Sulfate (Levsin Liq) 0.25 mg Q6H PRN PO ORAL SECRETIONS 11/30/16 16:00 12/05/16 09:19 Pantoprazole Sodium (Protonix Inj) 40 mg Q12H IV PUSH 12/15/16 11:00 12/21/16 10:23 Insulin Detemir (Levemir Inj) 10 units Q12HR SQ 12/19/16 09:00 12/21/16 20:43 Insulin Human Regular 1 1 Q6HR SQ 12/19/16 06:45 12/21/16 18:31 Sodium Chloride 1,000 ml @ 100 mls/hr Q10H IV 12/20/16 09:15 12/21/16 12:37 Sodium Chloride (NS 250 ml Inj) 250 ml @ 15 mls/hr ONCE ONCE IV 12/21/16 09:15 12/22/16 01:54 12/21/16 10:33 Objective Remarks GENERAL: critically ill. on ventilator SKIN: Warm and dry. CARDIOVASCULAR: Regular rate and rhythm without murmurs. RESPIRATORY: coarse sounds EXTREMITIES: No cyanosis, or edema. Assessment/Plan Assessment 86y/o female critically ill with poor prognosis following a large stroke some weeks ago. Hematology consulted for anemia secondary to GIB/acute illness with underlying coagulopathy and thrombocytopenia. Plan 1. Thrombocytopenia 2/2 to acute illness/consumption HIT negative. no transfusion. monitor CBC, coags. 2. Anemia: Transfuse 1 unit of pRBC. . transfuse to keep Hb>7 3. DIC and Coagulopathy: Fibrinogen low. INR up. WIll give 2 units of cryo and Vitamin K 5mg. oral check daily Fibrinogen in am 4. Poor prognosis -- son still wants to continue full supprot Alfonso Alaniz MD Dec 21, 2016 22:26
[2016-12-22] VITALS (19 sets, daily range): BP systolic 96–138; BP diastolic 50–58; PULSE 73–84; RESP 19–23; TEMP 97.6–98.3; O2SAT 95–100
[2016-12-22] MEDS: SODIUM CHLOR 0.9% 1000 ML INJ 1,000 ML IV SCH ×3 (01:15→23:42)
[2016-12-22] MEDS: CHLORHEXIDINE GLUCONATE 2 % 1 PACK (2 CLOTHS) TOP SCH (04:00)
[2016-12-22] MEDS: EPOETIN ALFA 10,000 UNITS/ML VIAL SQ SCH (05:27)
[2016-12-22] MEDS: INSULIN NovoLIN REGULAR SUPPLEMENTAL SCALE SQ SCH ×4 (05:30→23:42)
[2016-12-22 05:39] LABS: INTERNATIONAL NORMALIZED RATIO 1.5 RATIO
[2016-12-22] MEDS: INSULIN DETEMIR 100 UNITS/ML VIAL SQ SCH ×2 (07:56→20:24)
[2016-12-22] MEDS: FERROUS SULFATE 300 MG /5ML UDC PO SCH ×2 (07:56→20:24)
[2016-12-22] MEDS: SODIUM CHLORIDE 0.9% FLUSH 5 ML FLUSH IV FLUSH SCH ×2 (07:57→20:26)
[2016-12-22] MEDS: ARTIFICIAL TEARS OPTH SOLN 15 ML BTL EACH EYE SCH ×3 (08:04→18:00)
[2016-12-22] MEDS: CHLORHEXIDINE 0.12% (ORAL KIT) 15 ML CUP MT SCH ×2 (08:06→20:26)
--- NOTE | 2016-12-22 09:00 | HHI.NPPN ---
Subjective History of Present Illness 86 year old with CVA, Resp failure s/p Trach/ PEG Additional Remarks Patient remains on the Vent, remain unresponsive. Objective Data Data 12/21/16 12/22/16 19:00 07:00 Intake Total 1322 ml 2467 ml Output Total 400 ml 1150 ml Balance 922 ml 1317 ml IV Total 599 ml 1298 ml Tube Feeding 383 ml 638 ml Packed Cells 340 ml Cryoprecipitate 431 ml Other 100 ml Output Urine Total 400 ml 1150 ml Stool Total 0 ml # Bowel Movements 0 3 Vital Signs Date Time Temp Pulse Resp B/P Pulse Ox O2 Delivery O2 Flow Rate FiO2 12/22/16 08:47 99 30 12/22/16 06:00 77 12/22/16 04:35 99 30 12/22/16 04:00 84 12/22/16 04:00 30 12/22/16 04:00 98.0 84 19 107/51 99 12/22/16 02:00 83 12/22/16 01:09 100 30 12/22/16 00:00 30 12/22/16 00:00 81 12/22/16 00:00 98.3 81 23 106/55 96 12/21/16 22:06 97 30 12/21/16 22:00 82 12/21/16 20:00 30 12/21/16 20:00 86 12/21/16 20:00 98.1 86 19 125/60 100 12/21/16 19:10 95 30 12/21/16 18:00 81 12/21/16 16:36 97 30 12/21/16 16:00 98.0 79 23 112/55 95 12/21/16 16:00 80 12/21/16 16:00 30 12/21/16 14:00 78 12/21/16 12:59 97 30 12/21/16 12:00 97.9 77 20 111/53 98 12/21/16 12:00 77 12/21/16 12:00 30 12/21/16 10:00 75 -: 12/21/16 0815 12/21/16 0815 Physical Exam General Appearance: Pale Neck Neck Remarks s/p trach Pulmonary Resp Exam: Decreased Bases Cardiology CV Exam: Regular Gastrointestinal/Abdomen GI Exam: Soft, Non-Tender Extremeties Extremities Exam: Moderate Edema Assessment/Plan Problem List: (1) Acute renal failure Plan: Patient has multiple issues and has malnutrition with poor albumin contributing to low oncotic pressure, ATN creatinine stable: 3.37 --> 3.05 --> 2.7 -->2.7 -->. 2.6 -->2.6 --> 2.6, 2.8 increased to 3.2, 3.16. bun/CR 3.39 , 3.27 yesterday Cr stable UOP 1.5 L she is in multi organ failure, advance kidney failure poor outcome anticipated Bioethics on case no meaningful recovery from CVA at this point Palliative care following. Apparently son would like to fly her to [facility] for stem cell treatment. Continue to follow goals of care. 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 Ongoing anemia, continue to monitor. getting PRBC on regular interval agree with Palliative care ethics meeting with son as futile care with hopeless situation and no chance of meaningful recovery. 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 (2) Metabolic acidosis Plan: Stable, continue to monitor (3) Pneumonia Plan: On vent treated earlier with antibiotic (4) Urinary tract infection Plan: Escherichia coli she was treated (5) CVA (cerebral vascular accident) Plan: Massive stroke neurology following (6) Rhabdomyolysis Plan: This resolved (7) Hypernatremia Plan: Given 1L of DW over weekend improved Continue to monitor, repeat as necessary (8) Gastrointestinal hemorrhage Plan: Multiple PRBC given AVM poor prognosis Problem Qualifiers (1) Acute renal failure: Qualified Code: N17.9 - Acute renal failure, unspecified acute renal failure type (2) CVA (cerebral vascular accident): Qualified Code: I63.9 - Cerebrovascular accident (CVA), unspecified mechanism (3) Rhabdomyolysis: Qualified Code: M62.82 - Non-traumatic rhabdomyolysis Kristel Zuniga MD Dec 22, 2016 09:00
[2016-12-22 10:06] LABS: HEMATOCRIT 23.9 % (35.0-46.0)
[2016-12-22 10:08] LABS: REVIEW FLAG FINAL
[2016-12-22] MEDS: PANTOPRAZOLE SODIUM 40 MG VIAL IV PUSH SCH ×2 (11:18→23:42)
--- NOTE | 2016-12-22 13:51 | PD.ONC.PN ---
Subjective Subjective Remarks Afebrile overnight. On mechanical ventilation via trach. no bleeding per nursing staff. Objective Data Date Time Temp Pulse Resp B/P Pulse Ox O2 Delivery O2 Flow Rate FiO2 12/22/16 12:00 30 12/22/16 11:53 98 30 12/22/16 08:47 99 30 12/22/16 08:00 30 12/22/16 06:00 77 12/22/16 04:35 99 30 12/22/16 04:00 84 12/22/16 04:00 30 12/22/16 04:00 98.0 84 19 107/51 99 12/22/16 02:00 83 12/22/16 01:09 100 30 12/22/16 00:00 30 12/22/16 00:00 81 12/22/16 00:00 98.3 81 23 106/55 96 12/21/16 22:06 97 30 12/21/16 22:00 82 12/21/16 20:00 30 12/21/16 20:00 86 12/21/16 20:00 98.1 86 19 125/60 100 12/21/16 19:10 95 30 12/21/16 18:00 81 12/21/16 16:36 97 30 12/21/16 16:00 98.0 79 23 112/55 95 12/21/16 16:00 80 12/21/16 16:00 30 12/21/16 14:00 78 12/22/16 12/22/16 12/22/16 07:00 15:00 23:00 Intake Total 1067 ml Output Total 500 ml Balance 567 ml Result Diagram: 12/22/1626 12/21/16 0815 Laboratory Results Laboratory Tests Test 12/21/16 12/22/16 12/22/16 22:22 05:01 09:26 Blood Bank Comment Prothrombin Time 17.0 SEC Prothromb Time International 1.5 RATIO Ratio Fibrinogen 280 mg/dL Hemoglobin 7.6 GM/DL Hematocrit 23.9 % Administered Medications Medications (Trade) Dose Ordered Sig/Swati Route PRN Reason Start Time Stop Time Status Last Admin Dose Admin Chlorhexidine Gluconate (Peridex 0.12% Liq) 15 ml BID@08,20 MT 11/08/16 20:00 12/22/16 08:06 IV Flush (NS Flush) 2 ml BID IV FLUSH 11/08/16 21:00 12/21/16 08:04 Ondansetron HCl (Zofran Inj) 4 mg Q6H PRN IV NAUSEA OR VOMITING 11/08/16 19:45 11/30/16 21:43 Heparin Sodium (Porcine) (Heparin Inj) 5,000 units Q12H SQ 11/08/16 20:00 Hold 11/23/16 20:02 Chlorhexidine Gluconate (Chlorhexidine 2% Cloth) Taper DAILY@04 TOP 11/09/16 04:00 11/05/17 03:59 12/22/16 04:00 Artificial Tears (Tears Naturale Opth Soln) 1 drop TID EACH EYE 11/09/16 18:00 12/22/16 08:04 Ferrous Sulfate (Ferrous Sulfate Liq) 300 mg BID PO 11/11/16 09:00 12/22/16 07:56 Epoetin Ty (Epogen Inj) 10,000 units MoWeFr SQ 11/13/16 06:00 12/22/16 05:27 Acetaminophen (Tylenol 650 Mg/ 20 ml Liq) 650 mg Q4H PRN OG-TUBE TEMP>101 11/12/16 17:00 11/21/16 04:43 Hyoscyamine Sulfate (Levsin Liq) 0.25 mg Q6H PRN PO ORAL SECRETIONS 11/30/16 16:00 12/05/16 09:19 Pantoprazole Sodium (Protonix Inj) 40 mg Q12H IV PUSH 12/15/16 11:00 12/22/16 11:18 Insulin Detemir (Levemir Inj) 10 units Q12HR SQ 12/19/16 09:00 12/22/16 07:56 Insulin Human Regular 1 1 Q6HR SQ 12/19/16 06:45 12/22/16 11:17 Sodium Chloride (NS 1000 ml Inj) 1,000 ml @ 100 mls/hr Q10H IV 12/20/16 09:15 12/22/16 01:15 Objective Remarks GENERAL: Female, supine in bed on mechanical ventilation. SKIN: Warm and dry. HEAD: Normocephalic. EYES: No injection or drainage. NECK: Supple, trachea midline. CARDIOVASCULAR: +S1/S2 RESPIRATORY: anterior [place] clear. on mechanical ventilation. GASTROINTESTINAL: Abdomen mildly distended. receiving TF via PEG tube. EXTREMITIES: extensive edema in all extremities. Assessment/Plan Assessment 86y/o female critically ill with poor prognosis following a large stroke some weeks ago. Hematology consulted for anemia secondary to GIB/acute illness with underlying coagulopathy and thrombocytopenia. Plan 1. Thrombocytopenia: d/t to acute illness/consumption no transfusion today. 2. Anemia: transfuse to keep Hb>7 3. DIC and Coagulopathy: monitor coags, fibrinogen. Attending Statement The exam, history, and the medical decision-making described in the above note were completed with the assistance of the mid-level provider. I reviewed and agree with the findings presented. I attest that I had a [id number] encounter with the patient on the same day, and personally performed and documented my assessment and findings in the medical record. Michelle Celis Dec 22, 2016 13:51 Alfonso Alaniz MD January 12, 2017 23:33
[2016-12-23] VITALS (18 sets, daily range): BP systolic 96–160; BP diastolic 47–88; PULSE 66–79; RESP 16–21; TEMP 93.9–98.7; O2SAT 95–100
[2016-12-23] MEDS: CHLORHEXIDINE GLUCONATE 2 % 1 PACK (2 CLOTHS) TOP SCH (04:00)
[2016-12-23] MEDS: INSULIN NovoLIN REGULAR SUPPLEMENTAL SCALE SQ SCH ×4 (06:00→23:29)
[2016-12-23 06:59] LABS: BASOPHIL # 0.1 TH/MM3 (0-0.2); BASOPHIL % 1.1 % (0.0-2.0); EOSINOPHIL # 0.7 TH/MM3 (0-0.4); EOSINOPHIL % 8.9 % (0.0-4.0); HEMATOCRIT 22.5 % (35.0-46.0); LYMPH % 10.7 % (9.0-44.0); LYMPHOCYTE # 0.8 TH/MM3 (1.0-4.8); MEAN CELL VOLUME 90.3 FL (80.0-100.0); MEAN CORPUSCULAR HEMOGLOBIN 29.9 PG (27.0-34.0); MEAN CORPUSCULAR HGB CONC 33.1 % (32.0-36.0); MONO % 12.7 % (0.0-8.0); NEUT % 66.6 % (16.0-70.0); PLATELET COUNT 49 TH/MM3 (150-450); RED BLOOD COUNT 2.49 MIL/MM3 (4.00-5.30); RED CELL DISTRIBUTION WIDTH 19.1 % (11.6-17.2); WHITE BLOOD COUNT 7.5 TH/MM3 (4.0-11.0)
[2016-12-23 07:18] LABS: ALKALINE PHOSPHATASE 120 U/L (45-117); ALT (GPT) 121 U/L (10-53); ANION GAP 11 MEQ/L (5-15); AST (GOT) 514 U/L (15-37); BICARBONATE 21.5 MEQ/L (21.0-32.0); BLOOD UREA NITROGEN 116 MG/DL (7-18); CHLORIDE 121 MEQ/L (98-107); GLOMERULAR FILTRATION RATE 16 ML/MIN (>89); MAGNESIUM 2.4 MG/DL (1.5-2.5); POTASSIUM 3.7 MEQ/L (3.5-5.1); SODIUM (NA) 153 MEQ/L (136-145); TOTAL BILIRUBIN ADULT 8.9 MG/DL (0.2-1.0)
[2016-12-23 07:30] LABS: HEMO FLAGS AUTO DIFF
[2016-12-23] MEDS: SODIUM CHLORIDE 0.9% FLUSH 5 ML FLUSH IV FLUSH SCH ×2 (09:00→21:00)
[2016-12-23] MEDS: ARTIFICIAL TEARS OPTH SOLN 15 ML BTL EACH EYE SCH ×3 (09:00→17:06)
[2016-12-23] MEDS: CHLORHEXIDINE 0.12% (ORAL KIT) 15 ML CUP MT SCH ×2 (10:14→20:00)
[2016-12-23] MEDS: FERROUS SULFATE 300 MG /5ML UDC PO SCH ×2 (10:15→21:51)
[2016-12-23] MEDS: INSULIN DETEMIR 100 UNITS/ML VIAL SQ SCH ×2 (10:15→21:51)
[2016-12-23] MEDS: PANTOPRAZOLE SODIUM 40 MG VIAL IV PUSH SCH ×2 (10:16→23:19)
--- NOTE | 2016-12-23 10:34 | HHI.NPPN ---
Subjective History of Present Illness 86 year old with CVA, Resp failure s/p Trach/ PEG Additional Remarks patient remains intubated. She demonstrates generalized edema. Has hypernatremia. Objective Data Data 12/22/16 12/23/16 19:00 07:00 Intake Total 1356 ml 2234 ml Output Total 600 ml 950 ml Balance 756 ml 1284 ml IV Total 916 ml 1535 ml Tube Feeding 380 ml 639 ml Tube Irrigant 60 ml Other 60 ml Output Urine Total 600 ml 950 ml # Bowel Movements 1 3 Vital Signs Date Time Temp Pulse Resp B/P Pulse Ox O2 Delivery O2 Flow Rate FiO2 12/23/16 08:41 98 30 12/23/16 06:00 66 12/23/16 04:15 96 30 12/23/16 04:00 30 12/23/16 04:00 75 12/23/16 04:00 97.8 75 20 137/62 97 12/23/16 02:00 79 12/23/16 01:12 98 30 12/23/16 00:00 30 12/23/16 00:00 74 12/23/16 00:00 98.0 74 21 130/60 95 12/22/16 22:09 100 30 12/22/16 22:00 73 12/22/16 20:00 78 12/22/16 20:00 97.7 78 19 109/55 98 12/22/16 20:00 30 12/22/16 19:20 98 30 12/22/16 18:00 77 12/22/16 16:40 97 30 12/22/16 16:00 78 12/22/16 16:00 97.8 78 20 104/50 95 12/22/16 16:00 30 12/22/16 14:00 76 12/22/16 12:00 30 12/22/16 12:00 77 12/22/16 12:00 98.2 77 19 138/58 97 12/22/16 11:53 98 30 -: 12/23/16 0550 12/23/16 0550 Physical Exam General Appearance: Pale Pulmonary Resp Exam: Decreased Bases Cardiology CV Exam: Regular Gastrointestinal/Abdomen GI Exam: Soft, Non-Tender Extremeties Extremities Exam: Moderate Edema Assessment/Plan Problem List: (1) Acute renal failure Plan: Non oliguric renal failure, GFR is better. Demonstrates volume overload. Discontinue NS. Start D5W at 30 ml/hour because of hypernatremia. Start Diuril. Discussed with RN. 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 Ongoing anemia, continue to monitor. getting PRBC on regular interval agree with Palliative care ethics meeting with son as futile care with hopeless situation and no chance of meaningful recovery. Patient has BRIANA and not a candidate for penitentiary HD. (2) Metabolic acidosis Plan: Stable, continue to monitor (3) Pneumonia Plan: On vent treated earlier with antibiotic (4) Urinary tract infection Plan: Escherichia coli she was treated (5) CVA (cerebral vascular accident) Plan: Massive stroke neurology following (6) Rhabdomyolysis Plan: This resolved (7) Hypernatremia Plan: Given 1L of DW over weekend improved Continue to monitor, repeat as necessary (8) Gastrointestinal hemorrhage Plan: Multiple PRBC given AVM poor prognosis Plan Poor prognosis. Problem Qualifiers (1) Acute renal failure: Qualified Code: N17.9 - Acute renal failure, unspecified acute renal failure type (2) CVA (cerebral vascular accident): Qualified Code: I63.9 - Cerebrovascular accident (CVA), unspecified mechanism (3) Rhabdomyolysis: Qualified Code: M62.82 - Non-traumatic rhabdomyolysis Raghu Jackson MD Dec 23, 2016 10:34
[2016-12-23] MEDS: DEXTROSE 5% IN WATE 1000ML INJ 1,000 ML IV SCH (10:50)
--- NOTE | 2016-12-23 10:58 | HHI.CCPN ---
Subjective Remarks/Hospital Course This is an 86yF with per report no other past medical history who presented to the ER after she was found unresponsive in her bed. According to ER reports, her family saw her normal last night when she had a fall, with unknown LOC. At that point, he helped her back to bed. However, this morning she did not wake up. On arrival to the ER, she was unresponsive only withdrawing to pain. she was intubated for airway protection and a poor GCS. CT head demonstrated massive posterior-circulation ischemic stroke. The patient is currently intubated and unresponsive and cannot provide any additional history. 11/09: No acute changes overnight. Palliative care team has consult with the family regarding goals of care. Currently the patient's sedation fentanyl infusion has been turned off without any response from patient. The patient notably does withdrawal to pain. 11/10: No change in neurological status. [id number]. The patient withdraws to pain 4 extremities. The patient currently on no sedation, fentanyl infusion discontinued yesterday. Tube feeds were initiated. The patient's urine culture grew back Escherichia coli, the patient was started on antibiotics. Extensive discussion with son regarding patient's neurological status, son Wyatt has had extensive discussion with palliative care.The son feels that yesterday when the patient was spoken to in Korean the patient squeezed his hand and desires aggressive treatment. The patient's neuro status is unchanged, totally unresponsive with occasional reflexive twitching of feet B/L. Follow-up with neurology Dr. Pakc, guarding any further imaging studies. 11/13: No change in neuro exam. Palliative care following. Family wanting full aggressive care. Palliative care will address early trach PEG 11/14: No improvement in neuro status. Son has not made decisions regarding trach and PEG. Apparently he wants to wait longer to see any improvement 11/15: Remains unresponsive. Neuro exam with extensor posturing-unchanged. Son requesting aggressive care. Continues to have low-grade fever 11/16: Clinically no improvement. Tolerates CPAP. Unable to extubate as patient will not protect airway 11/17: Tolerating C Pap but no change in neuro exam. Hemoglobin noted to be 6.8 hemodynamically stable 11/18: Became tachycardic and hypotensive early a.m., placed on assist control. Otherwise neuro exam remains unchanged 11/19: Continues to spike fever Tmax 102, started on vancomycin and cefepime in addition to Levaquin yesterday. Currently only low-grade fever. Received 2 units of blood for hemoglobin of 5.3. CBC pending at this time. No improvement in neuro exam 11/20: White count is 18.3 today, MAXIMUM TEMPERATURE 103.1. Chest x-ray showing right sided infiltrate. Urine culture with gram-negative rods and Brionna albicans. ID consulted Diflucan added 11/21/16: Tmax 101.5. Bilateral lung infiltrates, R>L but slightly improved. No improvement in neuro exam. ID consulted and following. 11/22/16: No fever. CT chest- moderate to large R pleural effusion, bilateral lung infiltrates. ABX per ID. CXR today shows increasing bilateral infiltrates and effusion right more than left. Almost near complete infiltrates on the right lung [place]. Vaginally worsening creatinine today 1.45 indicating multiorgan failure 11/23/16: Hb 9.8 today after 2U PRBC yesterday. Plan for tracheostomy today. INR normal platelet count 116. Worsening creatinine today is 1.6. UO 550 ml in 24 hours. 1L NS bolus and 75 ml per hour maintenance NS. Started on Dopamine 3 mcg per min to maintain MAP>65 11/24 Patient is on ventilator via trach. Afebrile. On Dopamine 4 mics. 11/25 No acute events overnight. s/p EGD yesterday showed mild gastritis unable to place PEG tube endoscopically. Remains on Dopamine 4 mics. On no sedation unresponsive. 11/26 No acute events overnight. On CPAP with PS 20, PEEP: 5 and FIO2 40%. Afebrile. Off Dopamine. Afebrile. 11/27 Patient remains on ventilator via trach on no drips. Afebrile. For PEG tube placement by IR today. 11/28 Patient s/p PEG tube placement by IR yesterday, s/p Right thoracentesis with removal 700ml CXR showed better aeration of lungs, Hgb 6.7 this morning 2units PRBC ordered. Renal function worse with Cr: 3.40 from 2.85 . 11/29: Remains encephalopathic on mechanical ventilation via tracheostomy. 11/30: Remains encephalopathic on mechanical ventilation via tracheostomy. 12/01 Patient s/p transfusion 1unit PRBC last night for Hgb 5.8 in addition to 2L NS. Hgb 6.5 this morning. 12/02: Afebrile. The patient underwent CT-guided thoracentesis yesterday with approximately 600 cc removed. Chest x-ray pending this a.m.. Patient received packed red blood cell 2 units yesterday. Hemoglobin 7.4. Pending EGD today. 12/03:The patient underwent EGD yesterday with Dr. Farnsworth patient was noted to have a large active bleeding ulcer in the body of the stomach, multiple AVMs. Multiple ablations performed. This a.m. hemoglobin dropped to 6.1, platelet count 38. The patient was transfused 2 PRBC, and a unit of platelets. Patient still not relieved receiving any nutrition will begin PPN today. The patient continues to have copious amounts of melena with fecal incontinence apparatus in place. 12/04: The patient continues to have copious melena. PT INR drawn last evening INR was noted to be 13.5. The patient received KCentra, and current INR 1.3 the family requests aggressive measures to be continued. No further interventions from gastroenterology per . IR deemed the patient not a candidate for arteriography or endovascular treatment. 12/05: Patient's current medical status unchanged. Large tarry stools, acute blood loss anemia continues in conjunction with thrombocytopenia. During the night the nurse reported a malodorous scent was noted in free water flush container for instillation through G-tube. It was noted to be possibly fish oil , patient's son was in the room during that time. Container removed. The patient is noted to have a hemoglobin level of 5.8 today will receive 2 units of packed red blood cells and 1 unit of platelets today. 12/06: The patient continues to have copious melena. The patient received one 6 pack of platelets, and 2 units of blood yesterday. Tonight as reported by the nurse in the evening the son continue to utilize fish oil in the patient's free water, which was removed by the nurse. Ethics committee consult was initiated with Dr. Bauer yesterday, regarding assessing goals of care. 12/07: The patient's INR 1.3. Patient received 2 units of blood and one 6 pack of platelets yesterday. Awaiting ethics committee meeting with Dr. Bauer. The patient continues to require transfusions. 4/14: Patient was noted to have a drop in hemoglobin this a.m.. The patient is being transfused 2 units of PRBCs, with noted difficulty obtaining unit secondary to antibodies. Hematology will be consulted. Bioethics committee meeting planned to convene in one week, patient's son has agreed to attend. 12/09: Afebrile. No change in neuro status. Wound Care consult for left and blisters on back, orders provided. Hemoglobin stable post 2 units packed red blood cells yesterday. 12/10: The patient's hemoglobin 7.6 yesterday, hemoglobin pending for today. Overnight RN reported family member son continually putting some chemicals in the gastric tube of the patient, risk management notified. Hematology oncology has evaluated the patient, awaiting bioethics committee meeting scheduled for next week. The patient continues on PPN for nutritional support. 12/11 Patient remains on ventilator via trach on no sedation unresponsive. Afebrile.On Protonix drip and PPN. 12/12 No acute events overnight. Afebrile. Hgb 6.8 this morning 2 units PRBC ordered . 12/13 Patient remains on ventilator via trach, s/p transfusion 2units PRBC yesterday Hgb 9.1 this morning. Afebrile. On Protonix drip. 12/14 Patient s/p EGD yesterday which showed esophageal varices and hiatal hernia. On Ventilator via trach. H/H stable. On Protonix drip. 12/15 No acute events overnight. Afebrile. 12/16 Patient remains on ventilator via trach. Afebrile. 12/17 No acute events overnight. Afebrile. 12/18 Patient remains on ventilator via trach. Afebrile. Renal function continue to decline with Cr: 3.2 today from 3.0 with UO 805ml in 24 hrs. Afebrile. 12/19 No acute events overnight. Patient was given 2units Cryo and Vitamin K 5mg x1 by heme. On CPAP with FIO2 30%. Afebrile. Cr: 3.16 from 3.20 with UOP 1150ml in 24 hrs. 12/20: Neuro status remains unchanged. Had some black tarry stools reportedly. 12/21: Remains encephalopathic, on mechanical ventilation via tracheostomy. Hemoglobin dropped to 6.7 today. Has some black tarry stools. Being transfused 1 unit PRBCs. 12/22: Remains encephalopathic, on mechanical ventilation via tracheostomy. 12/23: Remains encephalopathic. On mechanical ventilation via trach. Hemoglobin 7.4 this morning. 1 unit PRBCs ordered. Objective Vital Signs Date Time Temp Pulse Resp B/P Pulse Ox O2 Delivery O2 Flow Rate FiO2 12/23/16 08:41 98 30 12/23/16 06:00 66 12/23/16 04:00 97.8 20 137/62 Intake and Output 12/22/16 12/22/16 12/23/16 08:00 16:00 00:00 Intake Total 1067 ml 1356 ml 1291 ml Output Total 500 ml 600 ml 600 ml Balance 567 ml 756 ml 691 ml Result Diagram: 12/23/16 0550 12/23/16 0550 Imaging Last Impressions Chest X-Ray 12/15/16 0000 Signed Impressions: Service Date/Time: Thursday, December 15, 2016 10:46 - CONCLUSION: No appreciable change. Belkis Rodriguez MD Upper Extremity Ultrasound 12/14/16 0000 Signed Impressions: Service Date/Time: November 14:39 - CONCLUSION: Thrombus within the cephalic vein. Belkis Rodriguez MD Thoracentesis 12/01/16 0000 Signed Impressions: Service Date/Time: Thursday, December 01, 2016 18:56 - CONCLUSION: Uncomplicated CT-guided thoracentesis. Jeffery Alvarado MD Chest CT 12/01/16 0000 Signed Impressions: Service Date/Time: Thursday, December 01, 2016 13:09 - CONCLUSION: Bilateral pleural effusion, larger on the right than the left. Mack Cao MD FACR Abdomen/Pelvis CT 12/01/16 0000 Signed Impressions: Service Date/Time: Thursday, December 01, 2016 13:09 - CONCLUSION: 1. Right inguinal hernia containing only fluid. 2. Generalized anasarca. 3. Trace ascites. 4. Bilateral pleural effusions, larger on the right than the left. Mack Cao MD FACR Abdomen Ultrasound 11/27/16 0000 Signed Impressions: Service Date/Time: Sunday, November 27, 2016 08:35 - CONCLUSION: Stone in the neck of the gallbladder. Trace ascites and mild splenomegaly Jeffery Alvarado MD Gastrostomy Tube Placement 11/24/16 0000 Signed Impressions: Service Date/Time: Sunday, November 27, 2016 14:34 - CONCLUSION: Uncomplicated gastrostomy tube placement as above. Kirit Alcantar MD Head CT 11/08/16 1657 Signed Impressions: Service Date/Time: Tuesday, November 08, 2016 17:06 - CONCLUSION: Low density seen throughout the posterior circulation regions including the susan and midbrain, cerebellar hemispheres, occipital and posterior medial temporal lobes and right thalamus. This likely represents areas of infarction involving the posterior territory circulation. Jeffery Zhong MD Carotid Artery Ultrasound 11/08/16 0000 Signed Impressions: Service Date/Time: Tuesday, November 08, 2016 22:24 - CONCLUSION: Mild calcified plaque at the carotid bulbs. No evidence of hemodynamically significant carotid stenosis. José Luis Beltran MD Objective Remarks GENERAL: Patient is 86 yo on ventilator via trach. SKIN: Warm and dry. HEAD: Normocephalic. EYES: Pallor present, No scleral icterus. No injection or drainage. NECK: Supple, trachea midline. No JVD or lymphadenopathy. CARDIOVASCULAR: Regular rate and rhythm without murmurs, gallops, or rubs. RESPIRATORY: Breath sounds equal bilaterally. Few coarse BS. 8.0 trach in situ GASTROINTESTINAL: Abdomen soft, non-tender, nondistended. PEG in place MUSCULOSKELETAL: No cyanosis, peripheral 2+ edema bilateral upper extremities. Left heel gauze dressing Neuro: Positive corneal reflex. LIDYA. Negative cough. Negative gag. Extensor posturing in uppers. Downgoing Babinski. 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 She was last seen normal, nearly 24 hours, she was not a candidate for any interventional therapy. Unfortunately, given her age, and the extent of the stroke, her prognosis for any reasonable neurologic function is quite poor. Active GI bleed discussed with family, and patient's poor prognosis. Her family continues to express wishes for aggressive medical management. Bioethics has been consulted. Active problems: Massive posterior circulation ischemic CVA Hypoxic and hypercarbic respiratory failure Severe encephalopathy secondary to stroke Severe sepsis Healthcare associated pneumonia with pleural effusion Acute kidney injury UTI Anemia-acute and chronic Hyperglycemia of critical illness Thrombocytopenia Active GI bleed with AVM's Plan Neuro: Monitor neuro status per ICU protocol - Avoid sedatives. Neuro is following -11/08 CT brain: Low density seen throughout the posterior circulation regions including the susan and midbrain, cerebellar hemispheres, occipital and posterior medial temporal lobes and right thalamus. This likely represents areas of infarction involving the posterior territory circulation -GCS 3T, decerebrate posturing Resp: -Continue with vent support keep sat >92% Vent bundle, Head of bed 30, bronchodilators-scheduled -s/p trach 11/23, pulm toilet, trach care -SBT daily as lia. -s/p CT guided right thoracentesis 11/27 with removal 700ml clear fluid. CVS: Monitor HR and BP keep MAP>65mmhg 2-D echo -EF 5560 %, mild aortic mitral and tricuspid regurgitation, No RWMA. 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 --IR intervention-patient is not a candidate. Continue with Protonix drip. -s/p PEG tube placement by IR 11/27 , TF held (Jevity 1.5 with goal rate 45 ml/hr ) secondary to GI bleeding -s/p EGD 11/24 showed mild gastritis unable to place PEG tube endoscopically. -Monitor LFT's, US abdomen: Stone in neck of gall bladder, no hydronephrosis -12/01 CT abdomen/pelvis-generalized anasarca, trace ascites, bilateral pleural effusions right greater than left -Continue with TF- Jevity 1.5 @45mlhr, : -Monitor renal function, I/O's, electrolytes replacement as needed. Avoid nephrotoxins Cr: 3.16 today from 3.2 UOP: 1150 ml in 24 hrs On Bumex 3mg BID, Albumin 25gms Q12, d/c NS ID: -Off abx per ID monitor for signs of infections ( Fever, WBC) -Urine culture 11/18/16 with Brionna albicans and E coli NOT S Levaquin, but S to zosyn -Infectious disease Dr. Wen, sputum cx 11/23: nl resp erica Heme Monitor CBC. On Fe Sulfate 300mg BID s/p Vitamin K 5mg x1 nad 2 units Cryo. Follow coags per hematolgy Hematology is following-Dr. Alaniz. On Epogen M,W,F. Heme is following Hep Plt ab negative. Transfuse PRBCs to keep hemoglobin around 8 g percent Endo: --Increase SSI High scale , [id number] u Q12 Msk: --Red and sacral area, left heel wound --12/06 Wound care consulted --Specialty bed-Airflow Proph: Subcutaneous heparin on hold since 11/23 secondary to thrombocytopenia, anemia and GI bleed. SCDs for DVT prophylaxis Protonix for GI prophylaxis RUE US.Thrombus in cephalic veins Not on AC due to GI bleed , anemia requiring blood transfusion and thrombocytopenia with PLT <50 Poor prognosis. -Palliative care is following. Plan for ethics meeting with son. IV access: Peripheral IV's Level 3 Nate Quintana MD Dec 23, 2016 10:58
[2016-12-23] MEDS ORDERED: SODIUM CHLOR 0.9% 250 ML INJ 250 ML IV ONE (11:00)
[2016-12-23] MEDS ORDERED: SODIUM CHLOR 0.9% 1000 ML INJ 1,000 ML IV SCH (11:15)
[2016-12-23 11:33] LABS: BANDS 23 % (0-6); BASOPHILS 2 % (0-2); CORRECTED NUCLEATED RBC 2 /100 WBC (0-0); EOSINOPHILS 10 % (0-4); METAMYELOCYTES 1 % (0-1); NEUTROPHIL # MANUAL DIFF 5.2 TH/MM3 (1.8-7.7); POLYS (SEG NEUTROPHILS) 45 % (16-70); TARGET CELLS 1+ (NORMAL); WBC DIFF SAMPLE 100
[2016-12-23 11:34] LABS: PLATELET ESTIMATE SMEAR LOW (NORMAL); PLATELET MORPHOLOGY ENLARGED (NORMAL); SCAN/DIFF FINAL DIFF MANUAL
[2016-12-23] MEDS: CHLOROTHIAZIDE SOD 500 MG VIAL IV SCH ×2 (12:11→21:00)
[2016-12-23 15:58] LABS: INTERNATIONAL NORMALIZED RATIO 1.6 RATIO; PROTHROMBIN TIME - PATIENT 18.1 SEC (9.8-11.6)
[2016-12-23] MEDS: CEFEPIME INJ 1,000 MG in SODIUM CHLORIDE 0.9% INJ 100 ML IV SCH (17:06)
[2016-12-23 18:00] LABS: BACTERIA, URINE OCC /hpf; BLOOD, URINE LARGE (NEG); COMMENT (UR) CULTURE INDICATED; CULTURE IF INDICATED CULTURE INDICATED; GLUCOSE,URINE NEG (NEG); KETONE, URINE NEG (NEG); MUCUS URINE FEW /lpf (OCC); SQUAMOUS EPITHELIAL CELL URINE <1 /hpf (0-5); URINE COLOR YELLOW (YELLW/STRAW)
[2016-12-23 18:01] LABS: NITRITE,URINE POS (NEG)
[2016-12-24] VITALS (17 sets, daily range): BP systolic 98–120; BP diastolic 49–56; PULSE 75–94; RESP 16–20; TEMP 97.6–99; O2SAT 96–99
[2016-12-24] MEDS: CHLORHEXIDINE GLUCONATE 2 % 1 PACK (2 CLOTHS) TOP SCH (01:16)
[2016-12-24] MEDS: INSULIN NovoLIN REGULAR SUPPLEMENTAL SCALE SQ SCH ×3 (06:00→17:48)
[2016-12-24 06:52] LABS: AUTOMATED NEUTROPHIL # 5.4 TH/MM3 (1.8-7.7); BASOPHIL % 0.6 % (0.0-2.0); EOSINOPHIL # 0.8 TH/MM3 (0-0.4); EOSINOPHIL % 9.6 % (0.0-4.0); HEMATOCRIT 27.2 % (35.0-46.0); LYMPH % 11.3 % (9.0-44.0); LYMPHOCYTE # 0.9 TH/MM3 (1.0-4.8); MEAN CELL VOLUME 86.6 FL (80.0-100.0); MEAN CORPUSCULAR HEMOGLOBIN 28.3 PG (27.0-34.0); MEAN CORPUSCULAR HGB CONC 32.7 % (32.0-36.0); MONO % 10.8 % (0.0-8.0); NEUT % 67.7 % (16.0-70.0); PLATELET COUNT 48 TH/MM3 (150-450); RED BLOOD COUNT 3.14 MIL/MM3 (4.00-5.30); RED CELL DISTRIBUTION WIDTH 18.9 % (11.6-17.2)
[2016-12-24 07:04] LABS: BICARBONATE 23.7 MEQ/L (21.0-32.0); POTASSIUM 3.7 MEQ/L (3.5-5.1)
[2016-12-24 07:11] LABS: INTERNATIONAL NORMALIZED RATIO 1.6 RATIO; PROTHROMBIN TIME - PATIENT 17.8 SEC (9.8-11.6)
[2016-12-24 07:24] LABS: HEMO FLAGS AUTO DIFF
--- NOTE | 2016-12-24 08:38 | HHI.NPPN ---
Subjective History of Present Illness 86 year old with CVA, Resp failure s/p Trach/ PEG Additional Remarks On the vent. Non oliguric. Poor renal function, hypernatremia is slightly better. Objective Data Data 12/23/16 12/24/16 19:00 07:00 Intake Total 903 ml 1107 ml Output Total 550 ml 1600 ml Balance 353 ml -493 ml Intake Oral 0 ml IV Total 28 ml 363 ml Tube Feeding 375 ml 624 ml Packed Cells 500 ml Other 120 ml Output Urine Total 550 ml 1600 ml # Bowel Movements 2 2 Vital Signs Date Time Temp Pulse Resp B/P Pulse Ox O2 Delivery O2 Flow Rate FiO2 12/24/16 06:00 79 12/24/16 04:21 98 50 12/24/16 04:00 30 12/24/16 04:00 97.6 80 16 101/53 97 12/24/16 04:00 79 12/24/16 02:00 79 12/24/16 00:04 99 30 12/24/16 00:00 79 12/24/16 00:00 97.6 75 16 120/56 98 12/24/16 00:00 30 12/23/16 22:00 75 12/23/16 20:10 98 30 12/23/16 20:00 74 12/23/16 20:00 30 12/23/16 20:00 97.6 74 16 102/53 98 12/23/16 18:00 74 12/23/16 16:00 30 12/23/16 16:00 97.6 72 21 96/47 97 12/23/16 16:00 72 12/23/16 15:57 98 30 12/23/16 14:00 71 12/23/16 12:00 94.1 69 16 149/84 100 12/23/16 12:00 69 12/23/16 12:00 30 12/23/16 11:55 97 30 12/23/16 10:00 68 12/23/16 08:41 98 30 -: 12/24/16 0625 12/24/16 0625 Microbiology 12/23/16 Aerobic Blood Culture, Received Pending 12/23/16 Anaerobic Blood Culture, Received Pending 12/23/16 Aerobic Blood Culture, Received Pending 12/23/16 Anaerobic Blood Culture, Received Pending 12/23/16 Gram Stain, Received Pending 12/23/16 Sputum Culture, Received Pending 12/23/16 Urine Culture, Received Pending Physical Exam Pulmonary Resp Exam: Decreased Bases Cardiology CV Exam: Regular Gastrointestinal/Abdomen GI Exam: Soft, Non-Tender Extremeties Extremities Exam: Moderate Edema Assessment/Plan Problem List: (1) Acute renal failure Plan: Non oliguric renal failure. Demonstrates volume overload. Discontinued NS. Continue Diuril. On D5W at 30 ml/hour. 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 Ongoing anemia, continue to monitor. getting PRBC on regular interval agree with Palliative care ethics meeting with son as futile care with hopeless situation and no chance of meaningful recovery. Patient has BRIANA and not a candidate for longterm HD. (2) Metabolic acidosis Plan: Stable, continue to monitor (3) Pneumonia Plan: On vent treated earlier with antibiotic (4) Urinary tract infection Plan: Escherichia coli she was treated (5) CVA (cerebral vascular accident) Plan: Massive stroke neurology following (6) Rhabdomyolysis Plan: This resolved (7) Hypernatremia Plan: Given 1L of DW over weekend improved Continue to monitor, repeat as necessary (8) Gastrointestinal hemorrhage Plan: Multiple PRBC given AVM poor prognosis Plan Poor prognosis. Problem Qualifiers (1) Acute renal failure: Qualified Code: N17.9 - Acute renal failure, unspecified acute renal failure type (2) CVA (cerebral vascular accident): Qualified Code: I63.9 - Cerebrovascular accident (CVA), unspecified mechanism (3) Rhabdomyolysis: Qualified Code: M62.82 - Non-traumatic rhabdomyolysis Raghu aJckson MD Dec 24, 2016 08:38
[2016-12-24] MEDS: ARTIFICIAL TEARS OPTH SOLN 15 ML BTL EACH EYE SCH ×3 (09:09→17:48)
[2016-12-24] MEDS: CHLOROTHIAZIDE SOD 500 MG VIAL IV SCH ×2 (09:10→21:00)
[2016-12-24] MEDS: FERROUS SULFATE 300 MG /5ML UDC PO SCH ×2 (09:11→22:18)
[2016-12-24] MEDS: SODIUM CHLORIDE 0.9% FLUSH 5 ML FLUSH IV FLUSH SCH ×2 (09:11→21:00)
[2016-12-24] MEDS: DEXTROSE 5% IN WATE 1000ML INJ 1,000 ML IV SCH (09:12)
[2016-12-24] MEDS: INSULIN DETEMIR 100 UNITS/ML VIAL SQ SCH ×2 (09:12→22:22)
[2016-12-24] MEDS: CHLORHEXIDINE 0.12% (ORAL KIT) 15 ML CUP MT SCH (09:13)
[2016-12-24] MEDS: PANTOPRAZOLE SODIUM 40 MG VIAL IV PUSH SCH ×2 (12:42→22:18)
[2016-12-24 13:48] LABS: BANDS 19 % (0-6); BASOPHILS 1 % (0-2); EOSINOPHILS 4 % (0-4); NEUTROPHIL # MANUAL DIFF 5.7 TH/MM3 (1.8-7.7); PLATELET ESTIMATE SMEAR LOW (NORMAL); PLATELET MORPHOLOGY NORMAL (NORMAL); POLYS (SEG NEUTROPHILS) 52 % (16-70); SCAN/DIFF FINAL DIFF MANUAL; TOXIC GRANULATION 2+ (NORMAL); WBC DIFF SAMPLE 100
--- NOTE | 2016-12-24 14:54 | HHI.CCPN ---
Subjective Remarks/Hospital Course This is an 86yF with per report no other past medical history who presented to the ER after she was found unresponsive in her bed. According to ER reports, her family saw her normal last night when she had a fall, with unknown LOC. At that point, he helped her back to bed. However, this morning she did not wake up. On arrival to the ER, she was unresponsive only withdrawing to pain. she was intubated for airway protection and a poor GCS. CT head demonstrated massive posterior-circulation ischemic stroke. The patient is currently intubated and unresponsive and cannot provide any additional history. 11/09: No acute changes overnight. Palliative care team has consult with the family regarding goals of care. Currently the patient's sedation fentanyl infusion has been turned off without any response from patient. The patient notably does withdrawal to pain. 11/10: No change in neurological status. [id number]. The patient withdraws to pain 4 extremities. The patient currently on no sedation, fentanyl infusion discontinued yesterday. Tube feeds were initiated. The patient's urine culture grew back Escherichia coli, the patient was started on antibiotics. Extensive discussion with son regarding patient's neurological status, son Wyatt has had extensive discussion with palliative care.The son feels that yesterday when the patient was spoken to in Latvian the patient squeezed his hand and desires aggressive treatment. The patient's neuro status is unchanged, totally unresponsive with occasional reflexive twitching of feet B/L. Follow-up with neurology Dr. Pack, guarding any further imaging studies. 11/13: No change in neuro exam. Palliative care following. Family wanting full aggressive care. Palliative care will address early trach PEG 11/14: No improvement in neuro status. Son has not made decisions regarding trach and PEG. Apparently he wants to wait longer to see any improvement 11/15: Remains unresponsive. Neuro exam with extensor posturing-unchanged. Son requesting aggressive care. Continues to have low-grade fever 11/16: Clinically no improvement. Tolerates CPAP. Unable to extubate as patient will not protect airway 11/17: Tolerating C Pap but no change in neuro exam. Hemoglobin noted to be 6.8 hemodynamically stable 11/18: Became tachycardic and hypotensive early a.m., placed on assist control. Otherwise neuro exam remains unchanged 11/19: Continues to spike fever Tmax 102, started on vancomycin and cefepime in addition to Levaquin yesterday. Currently only low-grade fever. Received 2 units of blood for hemoglobin of 5.3. CBC pending at this time. No improvement in neuro exam 11/20: White count is 18.3 today, MAXIMUM TEMPERATURE 103.1. Chest x-ray showing right sided infiltrate. Urine culture with gram-negative rods and Brionna albicans. ID consulted Diflucan added 11/21/16: Tmax 101.5. Bilateral lung infiltrates, R>L but slightly improved. No improvement in neuro exam. ID consulted and following. 11/22/16: No fever. CT chest- moderate to large R pleural effusion, bilateral lung infiltrates. ABX per ID. CXR today shows increasing bilateral infiltrates and effusion right more than left. Almost near complete infiltrates on the right lung [place]. Vaginally worsening creatinine today 1.45 indicating multiorgan failure 11/23/16: Hb 9.8 today after 2U PRBC yesterday. Plan for tracheostomy today. INR normal platelet count 116. Worsening creatinine today is 1.6. UO 550 ml in 24 hours. 1L NS bolus and 75 ml per hour maintenance NS. Started on Dopamine 3 mcg per min to maintain MAP>65 11/24 Patient is on ventilator via trach. Afebrile. On Dopamine 4 mics. 11/25 No acute events overnight. s/p EGD yesterday showed mild gastritis unable to place PEG tube endoscopically. Remains on Dopamine 4 mics. On no sedation unresponsive. 11/26 No acute events overnight. On CPAP with PS 20, PEEP: 5 and FIO2 40%. Afebrile. Off Dopamine. Afebrile. 11/27 Patient remains on ventilator via trach on no drips. Afebrile. For PEG tube placement by IR today. 11/28 Patient s/p PEG tube placement by IR yesterday, s/p Right thoracentesis with removal 700ml CXR showed better aeration of lungs, Hgb 6.7 this morning 2units PRBC ordered. Renal function worse with Cr: 3.40 from 2.85 . 11/29: Remains encephalopathic on mechanical ventilation via tracheostomy. 11/30: Remains encephalopathic on mechanical ventilation via tracheostomy. 12/01 Patient s/p transfusion 1unit PRBC last night for Hgb 5.8 in addition to 2L NS. Hgb 6.5 this morning. 12/02: Afebrile. The patient underwent CT-guided thoracentesis yesterday with approximately 600 cc removed. Chest x-ray pending this a.m.. Patient received packed red blood cell 2 units yesterday. Hemoglobin 7.4. Pending EGD today. 12/03:The patient underwent EGD yesterday with Dr. Farnsworth patient was noted to have a large active bleeding ulcer in the body of the stomach, multiple AVMs. Multiple ablations performed. This a.m. hemoglobin dropped to 6.1, platelet count 38. The patient was transfused 2 PRBC, and a unit of platelets. Patient still not relieved receiving any nutrition will begin PPN today. The patient continues to have copious amounts of melena with fecal incontinence apparatus in place. 12/04: The patient continues to have copious melena. PT INR drawn last evening INR was noted to be 13.5. The patient received KCentra, and current INR 1.3 the family requests aggressive measures to be continued. No further interventions from gastroenterology per . IR deemed the patient not a candidate for arteriography or endovascular treatment. 12/05: Patient's current medical status unchanged. Large tarry stools, acute blood loss anemia continues in conjunction with thrombocytopenia. During the night the nurse reported a malodorous scent was noted in free water flush container for instillation through G-tube. It was noted to be possibly fish oil , patient's son was in the room during that time. Container removed. The patient is noted to have a hemoglobin level of 5.8 today will receive 2 units of packed red blood cells and 1 unit of platelets today. 12/06: The patient continues to have copious melena. The patient received one 6 pack of platelets, and 2 units of blood yesterday. Tonight as reported by the nurse in the evening the son continue to utilize fish oil in the patient's free water, which was removed by the nurse. Ethics committee consult was initiated with Dr. Bauer yesterday, regarding assessing goals of care. 12/07: The patient's INR 1.3. Patient received 2 units of blood and one 6 pack of platelets yesterday. Awaiting ethics committee meeting with Dr. Bauer. The patient continues to require transfusions. 4/14: Patient was noted to have a drop in hemoglobin this a.m.. The patient is being transfused 2 units of PRBCs, with noted difficulty obtaining unit secondary to antibodies. Hematology will be consulted. Bioethics committee meeting planned to convene in one week, patient's son has agreed to attend. 12/09: Afebrile. No change in neuro status. Wound Care consult for left and blisters on back, orders provided. Hemoglobin stable post 2 units packed red blood cells yesterday. 12/10: The patient's hemoglobin 7.6 yesterday, hemoglobin pending for today. Overnight RN reported family member son continually putting some chemicals in the gastric tube of the patient, risk management notified. Hematology oncology has evaluated the patient, awaiting bioethics committee meeting scheduled for next week. The patient continues on PPN for nutritional support. 12/11 Patient remains on ventilator via trach on no sedation unresponsive. Afebrile.On Protonix drip and PPN. 12/12 No acute events overnight. Afebrile. Hgb 6.8 this morning 2 units PRBC ordered . 12/13 Patient remains on ventilator via trach, s/p transfusion 2units PRBC yesterday Hgb 9.1 this morning. Afebrile. On Protonix drip. 12/14 Patient s/p EGD yesterday which showed esophageal varices and hiatal hernia. On Ventilator via trach. H/H stable. On Protonix drip. 12/15 No acute events overnight. Afebrile. 12/16 Patient remains on ventilator via trach. Afebrile. 12/17 No acute events overnight. Afebrile. 12/18 Patient remains on ventilator via trach. Afebrile. Renal function continue to decline with Cr: 3.2 today from 3.0 with UO 805ml in 24 hrs. Afebrile. 12/19 No acute events overnight. Patient was given 2units Cryo and Vitamin K 5mg x1 by heme. On CPAP with FIO2 30%. Afebrile. Cr: 3.16 from 3.20 with UOP 1150ml in 24 hrs. 12/20: Neuro status remains unchanged. Had some black tarry stools reportedly. 12/21: Remains encephalopathic, on mechanical ventilation via tracheostomy. Hemoglobin dropped to 6.7 today. Has some black tarry stools. Being transfused 1 unit PRBCs. 12/22: Remains encephalopathic, on mechanical ventilation via tracheostomy. 12/23: Remains encephalopathic. On mechanical ventilation via trach. Hemoglobin 7.4 this morning. 1 unit PRBCs ordered. 12/24: Remains encephalopathic on mechanical ventilation. Transfuse 2 units PRBCs yesterday. Objective Vital Signs Date Time Temp Pulse Resp B/P Pulse Ox O2 Delivery O2 Flow Rate FiO2 12/24/16 14:00 84 12/24/16 12:00 30 12/24/16 12:00 98.6 20 102/53 98 Intake and Output 12/23/16 12/23/16 12/24/16 08:00 16:00 00:00 Intake Total 943 ml 903 ml 530 ml Output Total 350 ml 550 ml 900 ml Balance 593 ml 353 ml -370 ml Result Diagram: 12/24/16 0625 12/24/16 0625 Imaging Last Impressions Chest X-Ray 12/15/16 0000 Signed Impressions: Service Date/Time: Thursday, December 15, 2016 10:46 - CONCLUSION: No appreciable change. Belkis Rodriguez MD Upper Extremity Ultrasound 12/14/16 0000 Signed Impressions: Service Date/Time: November 14:39 - CONCLUSION: Thrombus within the cephalic vein. Belkis Rodriguez MD Thoracentesis 12/01/16 0000 Signed Impressions: Service Date/Time: Thursday, December 01, 2016 18:56 - CONCLUSION: Uncomplicated CT-guided thoracentesis. Jeffery Alvarado MD Chest CT 12/01/16 0000 Signed Impressions: Service Date/Time: Thursday, December 01, 2016 13:09 - CONCLUSION: Bilateral pleural effusion, larger on the right than the left. Mack Cao MD FACR Abdomen/Pelvis CT 12/01/16 0000 Signed Impressions: Service Date/Time: Thursday, December 01, 2016 13:09 - CONCLUSION: 1. Right inguinal hernia containing only fluid. 2. Generalized anasarca. 3. Trace ascites. 4. Bilateral pleural effusions, larger on the right than the left. Mack Cao MD FACR Abdomen Ultrasound 11/27/16 0000 Signed Impressions: Service Date/Time: Sunday, November 27, 2016 08:35 - CONCLUSION: Stone in the neck of the gallbladder. Trace ascites and mild splenomegaly Jeffery Alvarado MD Gastrostomy Tube Placement 11/24/16 0000 Signed Impressions: Service Date/Time: Sunday, November 27, 2016 14:34 - CONCLUSION: Uncomplicated gastrostomy tube placement as above. Kirit Alcantar MD Head CT 11/08/16 1657 Signed Impressions: Service Date/Time: Tuesday, November 08, 2016 17:06 - CONCLUSION: Low density seen throughout the posterior circulation regions including the susan and midbrain, cerebellar hemispheres, occipital and posterior medial temporal lobes and right thalamus. This likely represents areas of infarction involving the posterior territory circulation. Jeffery Zhong MD Carotid Artery Ultrasound 11/08/16 0000 Signed Impressions: Service Date/Time: Tuesday, November 08, 2016 22:24 - CONCLUSION: Mild calcified plaque at the carotid bulbs. No evidence of hemodynamically significant carotid stenosis. José Luis Beltran MD Objective Remarks GENERAL: Patient is 86 yo on ventilator via trach. SKIN: Warm and dry. HEAD: Normocephalic. EYES: Pallor present, No scleral icterus. No injection or drainage. NECK: Supple, trachea midline. No JVD or lymphadenopathy. CARDIOVASCULAR: Regular rate and rhythm without murmurs, gallops, or rubs. RESPIRATORY: Breath sounds equal bilaterally. Few coarse BS. 8.0 trach in situ GASTROINTESTINAL: Abdomen soft, non-tender, nondistended. PEG in place MUSCULOSKELETAL: No cyanosis, peripheral 2+ edema bilateral upper extremities. Left heel gauze dressing Neuro: Positive corneal reflex. LIDYA. Negative cough. Negative gag. Extensor posturing in uppers. Downgoing Babinski. 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 She was last seen normal, nearly 24 hours, she was not a candidate for any interventional therapy. Unfortunately, given her age, and the extent of the stroke, her prognosis for any reasonable neurologic function is quite poor. Active GI bleed discussed with family, and patient's poor prognosis. Her family continues to express wishes for aggressive medical management. Bioethics has been consulted. Active problems: Massive posterior circulation ischemic CVA Hypoxic and hypercarbic respiratory failure Severe encephalopathy secondary to stroke Severe sepsis Healthcare associated pneumonia with pleural effusion Acute kidney injury UTI Anemia-acute and chronic Hyperglycemia of critical illness Thrombocytopenia Active GI bleed with AVM's Plan Neuro: Monitor neuro status per ICU protocol. Remains comatose - Avoid sedatives. Neuro is following -11/08 CT brain: Low density seen throughout the posterior circulation regions including the susan and midbrain, cerebellar hemispheres, occipital and posterior medial temporal lobes and right thalamus. This likely represents areas of infarction involving the posterior territory circulation Resp: -Continue with vent support keep sat >92% Vent bundle, Head of bed 30, bronchodilators-scheduled -s/p trach 11/23, pulm toilet, trach care -SBT daily as lia. -s/p CT guided right thoracentesis 11/27 with removal 700ml clear fluid. CVS: Monitor HR and BP keep MAP>65mmhg 2-D echo -EF 5560 %, mild aortic mitral and tricuspid regurgitation, No RWMA. 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 --IR intervention-patient is not a candidate. Continue with Protonix drip. -s/p PEG tube placement by IR 11/27 , TF held (Jevity 1.5 with goal rate 45 ml/hr ) secondary to GI bleeding -s/p EGD 11/24 showed mild gastritis unable to place PEG tube endoscopically. -Monitor LFT's, US abdomen: Stone in neck of gall bladder, no hydronephrosis -12/01 CT abdomen/pelvis-generalized anasarca, trace ascites, bilateral pleural effusions right greater than left -Continue with TF- Jevity 1.5 @45mlhr, : -Monitor renal function, I/O's, electrolytes replacement as needed. Avoid nephrotoxins Rising BUN creatinine noted. Being followed by nephrology. Not a candidate for dialysis ID: --Urine culture 11/18/16 with Brionna albicans and E coli NOT S Levaquin, but S to zosyn -Infectious disease Dr. Wen, sputum cx 11/23: nl resp erica - Resumed cefepime on after stringer cultures for hypothermia and hypotension was suspected sepsis. Heme Monitor CBC. On Fe Sulfate 300mg BID s/p Vitamin K 5mg x1 nad 2 units Cryo. Follow coags per hematolgy Hematology is following-Dr. Alaniz. On Epogen M,W,F. Heme is following Hep Plt ab negative. Transfuse PRBCs to keep hemoglobin above 8 g percent Endo: --Increase SSI High scale , [id number] u Q12 Msk: --Red and sacral area, left heel wound --12/06 Wound care consulted --Specialty bed-Airflow Proph: Subcutaneous heparin on hold since 11/23 secondary to thrombocytopenia, anemia and GI bleed. SCDs for DVT prophylaxis Protonix for GI prophylaxis RUE US.Thrombus in cephalic veins Not on AC due to GI bleed , anemia requiring blood transfusion and thrombocytopenia with PLT <50 Poor prognosis. -Palliative care is following. Plan for ethics meeting with son. IV access: Peripheral IV's Level 3 Nate Quintana MD Dec 24, 2016 14:54
[2016-12-24] MEDS: CEFEPIME INJ 1,000 MG in SODIUM CHLORIDE 0.9% INJ 100 ML IV SCH (15:03)
[2016-12-25] VITALS (18 sets, daily range): BP systolic 92–108; BP diastolic 47–52; PULSE 66–91; RESP 15; TEMP 98.7–99.3; O2SAT 94–99
[2016-12-25] MEDS: CHLORHEXIDINE GLUCONATE 2 % 1 PACK (2 CLOTHS) TOP SCH ×2 (04:00→21:08)
[2016-12-25] MEDS: INSULIN NovoLIN REGULAR SUPPLEMENTAL SCALE SQ SCH ×3 (06:00→17:43)
[2016-12-25] MEDS: EPOETIN ALFA 10,000 UNITS/ML VIAL SQ SCH (08:09)
[2016-12-25] MEDS: FERROUS SULFATE 300 MG /5ML UDC PO SCH ×2 (08:52→21:08)
[2016-12-25] MEDS: CHLOROTHIAZIDE SOD 500 MG VIAL IV SCH ×2 (08:53→21:02)
[2016-12-25] MEDS: HYOSCYAMINE SOLN 0.125 MG/ML 15 ML BTL PO PRN (08:54)
[2016-12-25] MEDS: SODIUM CHLORIDE 0.9% FLUSH 5 ML FLUSH IV FLUSH SCH ×2 (08:54→20:18)
[2016-12-25] MEDS: CHLORHEXIDINE 0.12% (ORAL KIT) 15 ML CUP MT SCH ×2 (08:56→20:00)
[2016-12-25] MEDS: INSULIN DETEMIR 100 UNITS/ML VIAL SQ SCH ×2 (09:00→21:00)
[2016-12-25] MEDS: ARTIFICIAL TEARS OPTH SOLN 15 ML BTL EACH EYE SCH ×3 (09:10→17:43)
--- NOTE | 2016-12-25 09:15 | PD.ONC.PN ---
Subjective Subjective Remarks Afebrile overnight. Pt supine in bed in nad. Per RN she had some minor blood in the trach when suctioning this morning. Objective Data Date Time Temp Pulse Resp B/P Pulse Ox O2 Delivery O2 Flow Rate FiO2 12/25/16 08:18 99 30 12/25/16 06:00 91 12/25/16 04:55 99 35 12/25/16 04:00 91 12/25/16 04:00 99.1 89 15 108/52 99 12/25/16 04:00 30 12/25/16 03:30 91 12/25/16 02:00 88 12/25/16 01:12 99 30 12/25/16 00:00 99.2 91 15 104/51 94 12/25/16 00:00 30 12/25/16 00:00 88 12/25/16 00:00 30 12/24/16 22:00 85 12/24/16 20:15 98 30 12/24/16 20:00 85 12/24/16 20:00 30 12/24/16 20:00 99.0 88 17 100/49 96 12/24/16 18:00 91 12/24/16 16:00 94 12/24/16 16:00 30 12/24/16 16:00 98.4 94 20 104/51 98 12/24/16 15:37 98 30 12/24/16 14:00 84 12/24/16 12:00 30 12/24/16 12:00 98.6 83 20 102/53 98 12/24/16 12:00 83 12/24/16 10:01 98 30 12/24/16 10:00 86 12/25/16 12/25/16 12/25/16 07:00 15:00 23:00 Intake Total 250 ml Output Total 900 ml Balance -650 ml Result Diagram: 12/24/1662412/24/16624 Culture Results Microbiology Date/Time Procedure Status Source Growth 12/23/16 15:20 Aerobic Blood Culture - Preliminary Resulted Blood Peripheral NO GROWTH IN 1 DAY 12/23/16 15:20 Anaerobic Blood Culture - Preliminary Resulted Blood Peripheral NO GROWTH IN 1 DAY 12/23/16 15:33 Aerobic Blood Culture - Preliminary Resulted Blood Peripheral NO GROWTH IN 1 DAY 12/23/16 15:33 Anaerobic Blood Culture - Preliminary Resulted Blood Peripheral NO GROWTH IN 1 DAY 12/23/16 16:07 Gram Stain - Final Resulted Sputum Endotracheal 12/23/16 16:07 Sputum Culture - Preliminary Resulted Gram Negative Jeremias Staphylococcus Aureus 12/23/16 17:00 Urine Culture - Preliminary Resulted Urine Clean Catch Gram Negative Jeremias Administered Medications Medications (Trade) Dose Ordered Sig/Swati Route PRN Reason Start Time Stop Time Status Last Admin Dose Admin Chlorhexidine Gluconate (Peridex 0.12% Liq) 15 ml BID@08,20 MT 11/08/16 20:00 12/25/16 08:56 IV Flush (NS Flush) 2 ml BID IV FLUSH 11/08/16 21:00 12/25/16 08:54 Ondansetron HCl (Zofran Inj) 4 mg Q6H PRN IV NAUSEA OR VOMITING 11/08/16 19:45 11/30/16 21:43 Heparin Sodium (Porcine) (Heparin Inj) 5,000 units Q12H SQ 11/08/16 20:00 Hold 11/23/16 20:02 Chlorhexidine Gluconate (Chlorhexidine 2% Cloth) Taper DAILY@04 TOP 11/09/16 04:00 11/05/17 03:59 12/25/16 04:00 Artificial Tears (Tears Naturale Opth Soln) 1 drop TID EACH EYE 11/09/16 18:00 12/24/16 09:09 Ferrous Sulfate (Ferrous Sulfate Liq) 300 mg BID PO 11/11/16 09:00 12/25/16 08:52 Epoetin Ty (Epogen Inj) 10,000 units MoWeFr SQ 11/13/16 06:00 12/25/16 08:09 Acetaminophen (Tylenol 650 Mg/ 20 ml Liq) 650 mg Q4H PRN OG-TUBE TEMP>101 11/12/16 17:00 11/21/16 04:43 Hyoscyamine Sulfate (Levsin Liq) 0.25 mg Q6H PRN PO ORAL SECRETIONS 11/30/16 16:00 12/25/16 08:54 Pantoprazole Sodium (Protonix Inj) 40 mg Q12H IV PUSH 12/15/16 11:00 12/24/16 22:18 Insulin Detemir (Levemir Inj) 10 units Q12HR SQ 12/19/16 09:00 12/24/16 22:22 Insulin Human Regular 1 1 Q6HR SQ 12/19/16 06:45 12/24/16 06:00 Dextrose (D5W 1000 ml Inj) 1,000 ml @ 30 mls/hr Q24H IV 12/23/16 09:45 12/23/16 10:50 Chlorothiazide Sodium 250 mg 250 mg Q12HR IV 12/23/16 11:00 12/25/16 08:53 Cefepime HCl/ Sodium Chloride (Maxipime Inj/NS Inj) 100 ml @ 200 mls/hr Q24H IV 12/23/16 15:00 12/24/16 15:03 Objective Remarks GENERAL: Elderly female lying supine in bed, trach'd, PEG and on mechanical ventilation.. SKIN: Warm and dry. HEAD: Normocephalic. EYES: No injection or drainage. NECK: Tracheostomy. No oozing. CARDIOVASCULAR: +S1/S2 RESPIRATORY: Rhonchi throughout. GASTROINTESTINAL: Abdomen mildly distended. PEG tube in place. TF currently on hold. EXTREMITIES: +Anasarca. Assessment/Plan Assessment 86y/o female critically ill with poor prognosis following a large stroke some weeks ago. Hematology consulted for anemia secondary to GIB/acute illness with underlying coagulopathy and thrombocytopenia. Plan 1. Await CBC and coag factor results. 2. Will transfuse for Hgb less than 7. 3. Monitor for bleeding, coags, Attending Statement The exam, history, and the medical decision-making described in the above note were completed with the assistance of the mid-level provider. I reviewed and agree with the findings presented. I attest that I had a [id number] encounter with the patient on the same day, and personally performed and documented my assessment and findings in the medical record. check daily INR and Fibrinogen. No cryo or vitamin K today. Transfuse to keep Hb >7 Teresa Ryan December 25, 2016 09:15 Alfonso Alaniz MD December 26, 2016 00:07
[2016-12-25] MEDS: DEXTROSE 5% IN WATE 1000ML INJ 1,000 ML IV SCH (09:45)
[2016-12-25] MEDS: PANTOPRAZOLE SODIUM 40 MG VIAL IV PUSH SCH ×2 (11:00→21:08)
--- NOTE | 2016-12-25 12:42 | HHI.NPPN ---
Subjective History of Present Illness 86 year old with CVA, Resp failure s/p Trach/ PEG Additional Remarks On the vent. Non oliguric. Poor renal function, Objective Data Data 12/24/16 12/25/16 19:00 07:00 Intake Total 461 ml 580 ml Output Total 1230.0 ml 1450 ml Balance -769.0 ml -870 ml Intake Oral 0 ml IV Total 254 ml 580 ml Tube Feeding 147 ml Other 60 ml Output Urine Total 950 ml 1450 ml Tube Feeding Residual Discard 280.0 ml # Bowel Movements 1 Vital Signs Date Time Temp Pulse Resp B/P Pulse Ox O2 Delivery O2 Flow Rate FiO2 12/25/16 12:31 98 30 12/25/16 10:00 85 12/25/16 08:18 99 30 12/25/16 08:00 30 12/25/16 08:00 85 12/25/16 08:00 98.7 84 15 98 12/25/16 06:00 91 12/25/16 04:55 99 35 12/25/16 04:00 91 12/25/16 04:00 99.1 89 15 108/52 99 12/25/16 04:00 30 12/25/16 03:30 91 12/25/16 02:00 88 12/25/16 01:12 99 30 12/25/16 00:00 99.2 91 15 104/51 94 12/25/16 00:00 30 12/25/16 00:00 88 12/25/16 00:00 30 12/24/16 22:00 85 12/24/16 20:15 98 30 12/24/16 20:00 85 12/24/16 20:00 30 12/24/16 20:00 99.0 88 17 100/49 96 12/24/16 18:00 91 12/24/16 16:00 94 12/24/16 16:00 30 12/24/16 16:00 98.4 94 20 104/51 98 12/24/16 15:37 98 30 12/24/16 14:00 84 -: 12/24/16 0625 12/24/16 0625 Physical Exam Neck Neck Remarks s/p trach Pulmonary Resp Exam: Decreased Bases Cardiology CV Exam: Regular Gastrointestinal/Abdomen GI Exam: Soft, Non-Tender Extremeties Extremities Exam: Moderate Edema Assessment/Plan Problem List: (1) Acute renal failure Plan: Non oliguric renal failure. Demonstrates volume overload. Liver failure. Continue Diuril. On D5W at 30 ml/hour. 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 Ongoing anemia, continue to monitor. getting PRBC on regular interval agree with Palliative care ethics meeting with son as futile care with hopeless situation and no chance of meaningful recovery. Patient has BRIANA and not a candidate for biostatistics manager HD. (2) Metabolic acidosis Plan: Stable, continue to monitor (3) Pneumonia Plan: On vent treated earlier with antibiotic (4) Urinary tract infection Plan: Escherichia coli she was treated (5) CVA (cerebral vascular accident) Plan: Massive stroke neurology following (6) Rhabdomyolysis Plan: This resolved (7) Hypernatremia Plan: Given 1L of DW over weekend improved Continue to monitor, repeat as necessary (8) Gastrointestinal hemorrhage Plan: Multiple PRBC given AVM poor prognosis Plan Poor prognosis. Problem Qualifiers (1) Acute renal failure: Qualified Code: N17.9 - Acute renal failure, unspecified acute renal failure type (2) CVA (cerebral vascular accident): Qualified Code: I63.9 - Cerebrovascular accident (CVA), unspecified mechanism (3) Rhabdomyolysis: Qualified Code: M62.82 - Non-traumatic rhabdomyolysis Kristel Zuniga MD December 25, 2016 12:42
[2016-12-25 13:21] LABS: INTERNATIONAL NORMALIZED RATIO 1.7 RATIO; PROTHROMBIN TIME - PATIENT 19.5 SEC (9.8-11.6)
[2016-12-25 13:26] LABS: AUTOMATED NEUTROPHIL # 5.1 TH/MM3 (1.8-7.7); BASOPHIL # 0.1 TH/MM3 (0-0.2); EOSINOPHIL # 0.6 TH/MM3 (0-0.4); EOSINOPHIL % 7.6 % (0.0-4.0); HEMATOCRIT 25.1 % (35.0-46.0); LYMPH % 14.2 % (9.0-44.0); LYMPHOCYTE # 1.1 TH/MM3 (1.0-4.8); MEAN CELL VOLUME 88.1 FL (80.0-100.0); MEAN CORPUSCULAR HEMOGLOBIN 28.2 PG (27.0-34.0); MEAN CORPUSCULAR HGB CONC 32.1 % (32.0-36.0); MONO % 9.9 % (0.0-8.0); NEUT % 67.3 % (16.0-70.0); PLATELET COUNT 47 TH/MM3 (150-450); RED BLOOD COUNT 2.85 MIL/MM3 (4.00-5.30); RED CELL DISTRIBUTION WIDTH 18.7 % (11.6-17.2); WHITE BLOOD COUNT 7.6 TH/MM3 (4.0-11.0)
[2016-12-25] MEDS: CEFEPIME INJ 1,000 MG in SODIUM CHLORIDE 0.9% INJ 100 ML IV SCH (13:34)
[2016-12-25 13:35] LABS: HEMO FLAGS AUTO DIFF
[2016-12-25 14:17] LABS: BANDS 4 % (0-6); CORRECTED NUCLEATED RBC 1 /100 WBC (0-0); EOSINOPHILS 7 % (0-4); METAMYELOCYTES 1 % (0-1); NEUTROPHIL # MANUAL DIFF 5.7 TH/MM3 (1.8-7.7); PLATELET ESTIMATE SMEAR LOW (NORMAL); PLATELET MORPHOLOGY NORMAL (NORMAL); POLYS (SEG NEUTROPHILS) 70 % (16-70); SCAN/DIFF FINAL DIFF MANUAL; WBC DIFF SAMPLE 100
[2016-12-25 14:18] LABS: TARGET CELLS 1+ (NORMAL)
[2016-12-26] VITALS (21 sets, daily range): BP systolic 83–100; BP diastolic 44–55; PULSE 50–67; RESP 15; TEMP 97.8–99.2; O2SAT 93–100
[2016-12-26] MEDS: DEXTROSE 5% IN WATE 1000ML INJ 1,000 ML IV SCH (04:20)
[2016-12-26] MEDS: INSULIN NovoLIN REGULAR SUPPLEMENTAL SCALE SQ SCH ×4 (05:35→18:17)
[2016-12-26 06:56] LABS: HEMATOCRIT 22.2 % (35.0-46.0); MEAN CELL VOLUME 89.6 FL (80.0-100.0); MEAN CORPUSCULAR HEMOGLOBIN 28.8 PG (27.0-34.0); MEAN CORPUSCULAR HGB CONC 32.1 % (32.0-36.0); PLATELET COUNT 36 TH/MM3 (150-450); RED BLOOD COUNT 2.48 MIL/MM3 (4.00-5.30); RED CELL DISTRIBUTION WIDTH 19.3 % (11.6-17.2); WHITE BLOOD COUNT 5.5 TH/MM3 (4.0-11.0)
[2016-12-26 07:07] LABS: INTERNATIONAL NORMALIZED RATIO 1.7 RATIO; PROTHROMBIN TIME - PATIENT 19.4 SEC (9.8-11.6)
[2016-12-26 07:11] LABS: REVIEW FLAG FINAL
[2016-12-26] MEDS ORDERED: SODIUM CHLOR 0.9% 1000 ML INJ 1,000 ML IV ONE (07:30)
[2016-12-26] MEDS: SODIUM CHLORIDE 0.9% FLUSH 5 ML FLUSH IV FLUSH SCH ×2 (07:46→21:00)
[2016-12-26] MEDS: FERROUS SULFATE 300 MG /5ML UDC PO SCH ×2 (07:46→21:13)
[2016-12-26] MEDS: ARTIFICIAL TEARS OPTH SOLN 15 ML BTL EACH EYE SCH ×3 (07:47→18:00)
[2016-12-26] MEDS: INSULIN DETEMIR 100 UNITS/ML VIAL SQ SCH ×2 (07:48→21:13)
[2016-12-26] MEDS: CHLORHEXIDINE 0.12% (ORAL KIT) 15 ML CUP MT SCH ×2 (07:48→21:14)
[2016-12-26] MEDS ORDERED: PHYTONADIONE 5 MG TAB PO ONE (09:00)
[2016-12-26] MEDS: PANTOPRAZOLE SODIUM 40 MG VIAL IV PUSH SCH ×2 (10:22→23:45)
[2016-12-26] MEDS: CHLOROTHIAZIDE SOD 500 MG VIAL IV SCH ×2 (10:23→21:00)
[2016-12-26] MEDS ORDERED: SODIUM CHLOR 0.9% 250 ML INJ 250 ML IV ONE (10:45)
--- NOTE | 2016-12-26 12:37 | HHI.NPPN ---
Subjective History of Present Illness 86 year old with CVA, Resp failure s/p Trach/ PEG Additional Remarks On the vent. Non oliguric. Poor renal function, Objective Data Data 12/25/16 12/26/16 19:00 07:00 Intake Total 350 ml 1122 ml Output Total 1000 ml 1300 ml Balance -650 ml -178 ml IV Total 350 ml 582 ml Tube Feeding 540 ml Output Urine Total 1000 ml 1300 ml # Bowel Movements 1 6 Vital Signs Date Time Temp Pulse Resp B/P Pulse Ox O2 Delivery O2 Flow Rate FiO2 12/26/16 10:59 93 30 12/26/16 10:00 51 12/26/16 08:00 54 12/26/16 08:00 98.9 54 15 88/44 98 12/26/16 08:00 30 12/26/16 07:19 98 30 12/26/16 06:00 56 12/26/16 05:00 59 96/47 98 12/26/16 04:25 58 91/48 100 12/26/16 04:23 97 30 12/26/16 04:21 58 83/47 97 12/26/16 04:05 99.0 59 89/51 98 12/26/16 04:00 59 12/26/16 04:00 30 12/26/16 02:00 63 12/26/16 00:23 99 30 12/26/16 00:00 30 12/26/16 00:00 99.2 67 99/50 97 12/26/16 00:00 66 12/25/16 22:00 67 95/47 97 12/25/16 22:00 66 12/25/16 20:04 97 30 12/25/16 20:00 30 12/25/16 20:00 72 12/25/16 20:00 99.0 71 92/48 95 12/25/16 18:00 81 12/25/16 16:00 99.3 78 15 99 12/25/16 16:00 78 12/25/16 16:00 30 12/25/16 14:00 77 -: 12/26/16 0600 12/24/16 0625 Physical Exam Neck Neck Remarks s/p trach Pulmonary Resp Exam: Decreased Bases Cardiology CV Exam: Regular Gastrointestinal/Abdomen GI Exam: Soft, Non-Tender Extremeties Extremities Exam: Moderate Edema Assessment/Plan Problem List: (1) Acute renal failure Plan: Non oliguric renal failure. Demonstrates volume overload. Liver failure. Continue Diuril. On D5W at 30 ml/hour. 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 Ongoing anemia, continue to monitor. getting PRBC on regular interval BUN/cr higher Low Hb dropped again agree with Palliative care ethics meeting with son as futile care with hopeless situation and no chance of meaningful recovery. 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 (2) Metabolic acidosis Plan: Stable, continue to monitor (3) Pneumonia Plan: On vent treated earlier with antibiotic (4) Urinary tract infection Plan: Escherichia coli she was treated (5) CVA (cerebral vascular accident) Plan: Massive stroke neurology following (6) Rhabdomyolysis Plan: This resolved (7) Hypernatremia Plan: Given 1L of DW over weekend improved Continue to monitor, repeat as necessary (8) Gastrointestinal hemorrhage Plan: Multiple PRBC given AVM poor prognosis Plan Poor prognosis. Problem Qualifiers (1) Acute renal failure: Qualified Code: N17.9 - Acute renal failure, unspecified acute renal failure type (2) CVA (cerebral vascular accident): Qualified Code: I63.9 - Cerebrovascular accident (CVA), unspecified mechanism (3) Rhabdomyolysis: Qualified Code: M62.82 - Non-traumatic rhabdomyolysis Kristel Zuniga MD December 26, 2016 12:36
--- NOTE | 2016-12-26 14:22 | HHI.CCPN ---
Subjective Remarks/Hospital Course This is an 86yF with per report no other past medical history who presented to the ER after she was found unresponsive in her bed. According to ER reports, her family saw her normal last night when she had a fall, with unknown LOC. At that point, he helped her back to bed. However, this morning she did not wake up. On arrival to the ER, she was unresponsive only withdrawing to pain. she was intubated for airway protection and a poor GCS. CT head demonstrated massive posterior-circulation ischemic stroke. The patient is currently intubated and unresponsive and cannot provide any additional history. 11/09: No acute changes overnight. Palliative care team has consult with the family regarding goals of care. Currently the patient's sedation fentanyl infusion has been turned off without any response from patient. The patient notably does withdrawal to pain. 11/10: No change in neurological status. [id number]. The patient withdraws to pain 4 extremities. The patient currently on no sedation, fentanyl infusion discontinued yesterday. Tube feeds were initiated. The patient's urine culture grew back Escherichia coli, the patient was started on antibiotics. Extensive discussion with son regarding patient's neurological status, son Wyatt has had extensive discussion with palliative care.The son feels that yesterday when the patient was spoken to in [place] the patient squeezed his hand and desires aggressive treatment. The patient's neuro status is unchanged, totally unresponsive with occasional reflexive twitching of feet B/L. Follow-up with neurology Dr. Pack, guarding any further imaging studies. 11/13: No change in neuro exam. Palliative care following. Family wanting full aggressive care. Palliative care will address early trach PEG 11/14: No improvement in neuro status. Son has not made decisions regarding trach and PEG. Apparently he wants to wait longer to see any improvement 11/15: Remains unresponsive. Neuro exam with extensor posturing-unchanged. Son requesting aggressive care. Continues to have low-grade fever 11/16: Clinically no improvement. Tolerates CPAP. Unable to extubate as patient will not protect airway 11/17: Tolerating C Pap but no change in neuro exam. Hemoglobin noted to be 6.8 hemodynamically stable 11/18: Became tachycardic and hypotensive early a.m., placed on assist control. Otherwise neuro exam remains unchanged 11/19: Continues to spike fever Tmax 102, started on vancomycin and cefepime in addition to Levaquin yesterday. Currently only low-grade fever. Received 2 units of blood for hemoglobin of 5.3. CBC pending at this time. No improvement in neuro exam 11/20: White count is 18.3 today, MAXIMUM TEMPERATURE 103.1. Chest x-ray showing right sided infiltrate. Urine culture with gram-negative rods and Brionna albicans. ID consulted Diflucan added 11/21/16: Tmax 101.5. Bilateral lung infiltrates, R>L but slightly improved. No improvement in neuro exam. ID consulted and following. 11/22/16: No fever. CT chest- moderate to large R pleural effusion, bilateral lung infiltrates. ABX per ID. CXR today shows increasing bilateral infiltrates and effusion right more than left. Almost near complete infiltrates on the right lung [place]. Vaginally worsening creatinine today 1.45 indicating multiorgan failure 11/23/16: Hb 9.8 today after 2U PRBC yesterday. Plan for tracheostomy today. INR normal platelet count 116. Worsening creatinine today is 1.6. UO 550 ml in 24 hours. 1L NS bolus and 75 ml per hour maintenance NS. Started on Dopamine 3 mcg per min to maintain MAP>65 11/24 Patient is on ventilator via trach. Afebrile. On Dopamine 4 mics. 11/25 No acute events overnight. s/p EGD yesterday showed mild gastritis unable to place PEG tube endoscopically. Remains on Dopamine 4 mics. On no sedation unresponsive. 11/26 No acute events overnight. On CPAP with PS 20, PEEP: 5 and FIO2 40%. Afebrile. Off Dopamine. Afebrile. 11/27 Patient remains on ventilator via trach on no drips. Afebrile. For PEG tube placement by IR today. 11/28 Patient s/p PEG tube placement by IR yesterday, s/p Right thoracentesis with removal 700ml CXR showed better aeration of lungs, Hgb 6.7 this morning 2units PRBC ordered. Renal function worse with Cr: 3.40 from 2.85 . 11/29: Remains encephalopathic on mechanical ventilation via tracheostomy. 11/30: Remains encephalopathic on mechanical ventilation via tracheostomy. 12/01 Patient s/p transfusion 1unit PRBC last night for Hgb 5.8 in addition to 2L NS. Hgb 6.5 this morning. 12/02: Afebrile. The patient underwent CT-guided thoracentesis yesterday with approximately 600 cc removed. Chest x-ray pending this a.m.. Patient received packed red blood cell 2 units yesterday. Hemoglobin 7.4. Pending EGD today. 12/03:The patient underwent EGD yesterday with Dr. Farnsworth patient was noted to have a large active bleeding ulcer in the body of the stomach, multiple AVMs. Multiple ablations performed. This a.m. hemoglobin dropped to 6.1, platelet count 38. The patient was transfused 2 PRBC, and a unit of platelets. Patient still not relieved receiving any nutrition will begin PPN today. The patient continues to have copious amounts of melena with fecal incontinence apparatus in place. 12/04: The patient continues to have copious melena. PT INR drawn last evening INR was noted to be 13.5. The patient received KCentra, and current INR 1.3 the family requests aggressive measures to be continued. No further interventions from gastroenterology per . IR deemed the patient not a candidate for arteriography or endovascular treatment. 12/05: Patient's current medical status unchanged. Large tarry stools, acute blood loss anemia continues in conjunction with thrombocytopenia. During the night the nurse reported a malodorous scent was noted in free water flush container for instillation through G-tube. It was noted to be possibly fish oil , patient's son was in the room during that time. Container removed. The patient is noted to have a hemoglobin level of 5.8 today will receive 2 units of packed red blood cells and 1 unit of platelets today. 12/06: The patient continues to have copious melena. The patient received one 6 pack of platelets, and 2 units of blood yesterday. Tonight as reported by the nurse in the evening the son continue to utilize fish oil in the patient's free water, which was removed by the nurse. Ethics committee consult was initiated with Dr. Bauer yesterday, regarding assessing goals of care. 12/07: The patient's INR 1.3. Patient received 2 units of blood and one 6 pack of platelets yesterday. Awaiting ethics committee meeting with Dr. Bauer. The patient continues to require transfusions. 4/14: Patient was noted to have a drop in hemoglobin this a.m.. The patient is being transfused 2 units of PRBCs, with noted difficulty obtaining unit secondary to antibodies. Hematology will be consulted. Bioethics committee meeting planned to convene in one week, patient's son has agreed to attend. 12/09: Afebrile. No change in neuro status. Wound Care consult for left and blisters on back, orders provided. Hemoglobin stable post 2 units packed red blood cells yesterday. 12/10: The patient's hemoglobin 7.6 yesterday, hemoglobin pending for today. Overnight RN reported family member son continually putting some chemicals in the gastric tube of the patient, risk management notified. Hematology oncology has evaluated the patient, awaiting bioethics committee meeting scheduled for next week. The patient continues on PPN for nutritional support. 12/11 Patient remains on ventilator via trach on no sedation unresponsive. Afebrile.On Protonix drip and PPN. 12/12 No acute events overnight. Afebrile. Hgb 6.8 this morning 2 units PRBC ordered . 12/13 Patient remains on ventilator via trach, s/p transfusion 2units PRBC yesterday Hgb 9.1 this morning. Afebrile. On Protonix drip. 12/14 Patient s/p EGD yesterday which showed esophageal varices and hiatal hernia. On Ventilator via trach. H/H stable. On Protonix drip. 12/15 No acute events overnight. Afebrile. 12/16 Patient remains on ventilator via trach. Afebrile. 12/17 No acute events overnight. Afebrile. 12/18 Patient remains on ventilator via trach. Afebrile. Renal function continue to decline with Cr: 3.2 today from 3.0 with UO 805ml in 24 hrs. Afebrile. 12/19 No acute events overnight. Patient was given 2units Cryo and Vitamin K 5mg x1 by heme. On CPAP with FIO2 30%. Afebrile. Cr: 3.16 from 3.20 with UOP 1150ml in 24 hrs. 12/20: Neuro status remains unchanged. Had some black tarry stools reportedly. 12/21: Remains encephalopathic, on mechanical ventilation via tracheostomy. Hemoglobin dropped to 6.7 today. Has some black tarry stools. Being transfused 1 unit PRBCs. 12/22: Remains encephalopathic, on mechanical ventilation via tracheostomy. 12/23: Remains encephalopathic. On mechanical ventilation via trach. Hemoglobin 7.4 this morning. 1 unit PRBCs ordered. 12/24: Remains encephalopathic on mechanical ventilation. Transfuse 2 units PRBCs yesterday. 12/25: Remains encephalopathic on mechanical ventilation. Hemoglobin drifting down. 12/26: Remains on mechanical ventilation via tracheostomy. Being transfused 1 unit PRBCs today for drop in hemoglobin. Objective Vital Signs Date Time Temp Pulse Resp B/P Pulse Ox O2 Delivery O2 Flow Rate FiO2 12/26/16 10:59 93 30 12/26/16 10:00 51 12/26/16 08:00 98.9 15 88/44 Intake and Output 12/25/16 12/25/16 12/26/16 08:00 16:00 00:00 Intake Total 250 ml 350 ml 491 ml Output Total 900 ml 1000 ml Balance -650 ml -650 ml 491 ml Result Diagram: 12/26/16 0600 12/24/16 0625 Other Results Microbiology Date/Time Procedure Status Source Growth 12/23/16 16:07 Gram Stain - Final Complete Sputum Endotracheal 12/23/16 16:07 Sputum Culture - Final Complete Klebsiella Pneumoniae Staphylococcus Aureus 12/23/16 17:00 Urine Culture - Final Complete Urine Clean Catch Enterobacter Cloacae Positive [facility] Last Impressions Chest X-Ray 12/15/16 0000 Signed Impressions: Service Date/Time: Thursday, December 15, 2016 10:46 - CONCLUSION: No appreciable change. Belkis Rodriguez MD Upper Extremity Ultrasound 12/14/16 0000 Signed Impressions: Service Date/Time: November 14:39 - CONCLUSION: Thrombus within the cephalic vein. Belkis Rodriguez MD Thoracentesis 12/01/16 0000 Signed Impressions: Service Date/Time: Thursday, December 01, 2016 18:56 - CONCLUSION: Uncomplicated CT-guided thoracentesis. Jeffery Alvarado MD Chest CT 12/01/16 0000 Signed Impressions: Service Date/Time: Thursday, December 01, 2016 13:09 - CONCLUSION: Bilateral pleural effusion, larger on the right than the left. Mack Cao MD FACR Abdomen/Pelvis CT 12/01/16 0000 Signed Impressions: Service Date/Time: Thursday, December 01, 2016 13:09 - CONCLUSION: 1. Right inguinal hernia containing only fluid. 2. Generalized anasarca. 3. Trace ascites. 4. Bilateral pleural effusions, larger on the right than the left. Mack Cao MD FACR Abdomen Ultrasound 11/27/16 0000 Signed Impressions: Service Date/Time: Sunday, November 27, 2016 08:35 - CONCLUSION: Stone in the neck of the gallbladder. Trace ascites and mild splenomegaly Jeffery Alvarado MD Gastrostomy Tube Placement 11/24/16 0000 Signed Impressions: Service Date/Time: Sunday, November 27, 2016 14:34 - CONCLUSION: Uncomplicated gastrostomy tube placement as above. Kirit Alcantar MD Head CT 11/08/16 1657 Signed Impressions: Service Date/Time: Tuesday, November 08, 2016 17:06 - CONCLUSION: Low density seen throughout the posterior circulation regions including the susan and midbrain, cerebellar hemispheres, occipital and posterior medial temporal lobes and right thalamus. This likely represents areas of infarction involving the posterior territory circulation. Jeffery Zhong MD Carotid Artery Ultrasound 11/08/16 0000 Signed Impressions: Service Date/Time: Tuesday, November 08, 2016 22:24 - CONCLUSION: Mild calcified plaque at the carotid bulbs. No evidence of hemodynamically significant carotid stenosis. José Luis Beltran MD Objective Remarks GENERAL: Patient is 86 yo on ventilator via trach. SKIN: Warm and dry. HEAD: Normocephalic. EYES: Pallor present, No scleral icterus. No injection or drainage. NECK: Supple, trachea midline. No JVD or lymphadenopathy. CARDIOVASCULAR: Regular rate and rhythm without murmurs, gallops, or rubs. RESPIRATORY: Breath sounds equal bilaterally. Few coarse BS. 8.0 trach in situ GASTROINTESTINAL: Abdomen soft, non-tender, nondistended. PEG in place MUSCULOSKELETAL: No cyanosis, peripheral 2+ edema bilateral upper extremities. Left heel gauze dressing Neuro: LIDYA. Negative cough. Negative gag. Extensor posturing in uppers. Downgoing Babinski. 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 She was last seen normal, nearly 24 hours, she was not a candidate for any interventional therapy. Unfortunately, given her age, and the extent of the stroke, her prognosis for any reasonable neurologic function is quite poor. Active GI bleed discussed with family, and patient's poor prognosis. Her family continues to express wishes for aggressive medical management. Bioethics has been consulted. Active problems: Massive posterior circulation ischemic CVA Hypoxic and hypercarbic respiratory failure Severe encephalopathy secondary to stroke Severe sepsis Healthcare associated pneumonia with pleural effusion Acute kidney injury UTI Anemia-acute and chronic Hyperglycemia of critical illness Thrombocytopenia Active GI bleed with AVM's Plan Neuro: Monitor neuro status per ICU protocol. Remains comatose - Avoid sedatives. Neuro is following -11/08 CT brain: Low density seen throughout the posterior circulation regions including the susan and midbrain, cerebellar hemispheres, occipital and posterior medial temporal lobes and right thalamus. This likely represents areas of infarction involving the posterior territory circulation Resp: -Continue with vent support keep sat >92% Vent bundle, Head of bed 30, bronchodilators-scheduled -s/p trach 11/23, pulm toilet, trach care -SBT daily as lia. -s/p CT guided right thoracentesis 11/27 with removal 700ml clear fluid. CVS: Monitor HR and BP keep MAP>65mmhg 2-D echo -EF 5560 %, mild aortic mitral and tricuspid regurgitation, No RWMA. 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 --IR intervention-patient is not a candidate. On Protonix 40 mg IV every 12 hourly -s/p PEG tube placement by IR 11/27 , TF held (Jevity 1.5 with goal rate 45 ml/hr ) secondary to GI bleeding -s/p EGD 11/24 showed mild gastritis unable to place PEG tube endoscopically. -Monitor LFT's, US abdomen: Stone in neck of gall bladder, no hydronephrosis -12/01 CT abdomen/pelvis-generalized anasarca, trace ascites, bilateral pleural effusions right greater than left -Resume tube feeds as tolerated : -Monitor renal function, I/O's, electrolytes replacement as needed. Avoid nephrotoxins Rising BUN creatinine noted. Being followed by nephrology. Not a candidate for dialysis ID: --Urine culture 11/18/16 with Brionna albicans and E coli NOT S Levaquin, but S to zosyn -Infectious disease Dr. Wen, sputum cx 11/23: nl resp erica - Resumed cefepime on after stringer cultures for hypothermia and hypotension for suspected sepsis. Heme Monitor CBC. On Fe Sulfate 300mg BID s/p Vitamin K 5mg x1 nad 2 units Cryo. Follow coags per hematolgy Hematology is following-Dr. Alaniz. On Epogen M,W,F. Heme is following Hep Plt ab negative. Transfuse PRBCs to keep hemoglobin above 7 g percent Endo: --Increase SSI High scale , [id number] u Q12 Msk: --Red and sacral area, left heel wound --12/06 Wound care consulted --Specialty bed-Airflow Proph: Subcutaneous heparin on hold since 11/23 secondary to thrombocytopenia, anemia and GI bleed. SCDs for DVT prophylaxis Protonix for GI prophylaxis RUE US.Thrombus in cephalic veins Not on AC due to GI bleed , anemia requiring blood transfusion and thrombocytopenia with PLT <50 Poor prognosis. -Palliative care is following. Plan for ethics meeting with son. IV access: Peripheral IV's Level 3 Nate Quintana MD December 26, 2016 14:22
[2016-12-26] MEDS: CEFEPIME INJ 1,000 MG in SODIUM CHLORIDE 0.9% INJ 100 ML IV SCH (15:35)
--- NOTE | 2016-12-26 19:45 | HHI.HCPN ---
Call from son, Wyatt Crawford/HCP. He called to verbalize frustration the patient was going to be discharged to LTAC. Reviewed possible discharged to [facility], he verbalizes he does not want patient to be discharged as he does not feel we have done enough to try to improve neurologic function. Again reviewed hospital course, clinical state, reasons for transfer to LTAC and that patient remains clinically stable. He continues to request use of experimental treatments volunteering to give the patient himself the medications, that he will pay for them and that he will sign a waiver releasing hospital from liability. He is asking about an experimental medication from [place] called NeuroAid, he requests that I reviewed the information printed and provided to the medical staff. I explained that no experimental medication would be used in ICU setting it is not FDA approved. He now tells me that his aunt wants to keep the patient alive at all cost, that she does not want to meet with palliative care. Questions answered to his satisfaction. Goals remain aggressive, I do not foresee his goals changing. FULL CODE. Palliative care will continue to follow. ZAIN TITUS December 26, 2016 19:45
--- NOTE | 2016-12-26 21:06 | PD.ONC.PN ---
Subjective Subjective Remarks remain intubated and unresponsive pRBC transfusion given goals of care still aggressive --based on son's wishes Objective Data Date Time Temp Pulse Resp B/P Pulse Ox O2 Delivery O2 Flow Rate FiO2 12/26/16 20:21 100 30 12/26/16 16:00 30 12/26/16 16:00 98.9 54 15 88/44 98 12/26/16 16:00 54 12/26/16 15:25 96 30 12/26/16 14:00 54 12/26/16 12:00 30 12/26/16 12:00 53 12/26/16 12:00 97.8 53 15 88/44 97 12/26/16 10:59 93 30 12/26/16 10:00 51 12/26/16 08:00 54 12/26/16 08:00 98.9 54 15 88/44 98 12/26/16 08:00 30 12/26/16 07:19 98 30 12/26/16 06:00 56 12/26/16 05:00 59 96/47 98 12/26/16 04:25 58 91/48 100 12/26/16 04:23 97 30 12/26/16 04:21 58 83/47 97 12/26/16 04:05 99.0 59 89/51 98 12/26/16 04:00 59 12/26/16 04:00 30 12/26/16 02:00 63 12/26/16 00:23 99 30 12/26/16 00:00 30 12/26/16 00:00 99.2 67 99/50 97 12/26/16 00:00 66 12/25/16 22:00 67 95/47 97 12/25/16 22:00 66 12/26/16 12/26/16 12/26/16 07:00 15:00 23:00 Intake Total 631 ml 880 ml Output Total 1300 ml 700 ml Balance -669 ml 180 ml Result Diagram: 12/26/16 0600 12/24/16 0625 Laboratory Results Laboratory Tests Test 12/26/16 12/26/16 12/26/16 06:00 06:02 12:55 White Blood Count 5.5 TH/MM3 Red Blood Count 2.48 MIL/MM3 Hemoglobin 7.1 GM/DL Hematocrit 22.2 % Mean Corpuscular Volume 89.6 FL Mean Corpuscular Hemoglobin 28.8 PG Mean Corpuscular Hemoglobin 32.1 % Concent Red Cell Distribution Width 19.3 % Platelet Count 36 TH/MM3 Mean Platelet Volume 11.1 FL Prothrombin Time 19.4 SEC Prothromb Time International 1.7 RATIO Ratio Fibrinogen 167 mg/dL Blood Type O POSITIVE Antibody Screen POSITIVE Crossmatch Leukocyte-Reduced Red Blood Cells Blood Bank Comment Administered Medications Medications (Trade) Dose Ordered Sig/Swati Route PRN Reason Start Time Stop Time Status Last Admin Dose Admin Chlorhexidine Gluconate (Peridex 0.12% Liq) 15 ml BID@08,20 MT 11/08/16 20:00 12/26/16 07:48 IV Flush (NS Flush) 2 ml BID IV FLUSH 11/08/16 21:00 12/26/16 07:46 Ondansetron HCl (Zofran Inj) 4 mg Q6H PRN IV NAUSEA OR VOMITING 11/08/16 19:45 11/30/16 21:43 Heparin Sodium (Porcine) (Heparin Inj) 5,000 units Q12H SQ 11/08/16 20:00 Hold 11/23/16 20:02 Chlorhexidine Gluconate (Chlorhexidine 2% Cloth) Taper DAILY@04 TOP 11/09/16 04:00 11/05/17 03:59 12/25/16 21:08 Artificial Tears (Tears Naturale Opth Soln) 1 drop TID EACH EYE 11/09/16 18:00 12/26/16 18:00 Ferrous Sulfate (Ferrous Sulfate Liq) 300 mg BID PO 11/11/16 09:00 12/26/16 07:46 Epoetin Ty (Epogen Inj) 10,000 units MoWeFr SQ 11/13/16 06:00 12/25/16 08:09 Acetaminophen (Tylenol 650 Mg/ 20 ml Liq) 650 mg Q4H PRN OG-TUBE TEMP>101 11/12/16 17:00 11/21/16 04:43 Hyoscyamine Sulfate (Levsin Liq) 0.25 mg Q6H PRN PO ORAL SECRETIONS 11/30/16 16:00 12/25/16 08:54 Pantoprazole Sodium (Protonix Inj) 40 mg Q12H IV PUSH 12/15/16 11:00 12/26/16 10:22 Insulin Detemir (Levemir Inj) 10 units Q12HR SQ 12/19/16 09:00 12/26/16 07:48 Insulin Human Regular 1 1 Q6HR SQ 12/19/16 06:45 12/26/16 18:17 Dextrose (D5W 1000 ml Inj) 1,000 ml @ 30 mls/hr Q24H IV 12/23/16 09:45 12/26/16 04:20 Chlorothiazide Sodium 250 mg 250 mg Q12HR IV 12/23/16 11:00 12/26/16 10:23 Cefepime HCl 1000 mg/Sodium Chloride 100 ml @ 200 mls/hr Q24H IV 12/23/16 15:00 12/26/16 15:35 Sodium Chloride (NS 250 ml Inj) 250 ml @ 15 mls/hr ONCE ONCE IV 12/26/16 10:45 12/27/16 03:24 12/26/16 10:45 Objective Remarks GENERAL: critically ill SKIN: Warm and dry. CARDIOVASCULAR: Regular rate and rhythm without murmurs. RESPIRATORY: coarse sounds on mech ventilations GASTROINTESTINAL: Abdomen soft, bowel sounds absent EXTREMITIES: No cyanosis, Assessment/Plan Assessment 86y/o female critically ill with poor prognosis following a large stroke some weeks ago. Hematology consulted for anemia secondary to GIB/acute illness with underlying coagulopathy and thrombocytopenia. Plan 1. PO vitamin K today 2. Minimize blood transfusions. Transfuse to keep Hb >7 3. daily coags and fibrinogen 4. Thrombocytopenia due to critical illness Alfonso Alaniz MD December 26, 2016 21:06
[2016-12-27] VITALS (18 sets, daily range): BP systolic 81–105; BP diastolic 40–52; PULSE 52–111; RESP 15–37; TEMP 95–103.5; O2SAT 96–100
[2016-12-27] MEDS: CHLORHEXIDINE GLUCONATE 2 % 1 PACK (2 CLOTHS) TOP SCH (04:00)
[2016-12-27 05:20] LABS: HEMATOCRIT 21.6 % (35.0-46.0)
[2016-12-27 05:28] LABS: REVIEW FLAG FINAL
[2016-12-27] MEDS: INSULIN NovoLIN REGULAR SUPPLEMENTAL SCALE SQ SCH ×5 (05:53→23:58)
[2016-12-27] MEDS ORDERED: SODIUM CHLOR 0.9% 250 ML INJ 250 ML IV ONE (07:00)
[2016-12-27] MEDS: CHLOROTHIAZIDE SOD 500 MG VIAL IV SCH ×2 (08:07→20:29)
[2016-12-27] MEDS: SODIUM CHLORIDE 0.9% FLUSH 5 ML FLUSH IV FLUSH SCH ×2 (08:07→20:31)
[2016-12-27] MEDS: CHLORHEXIDINE 0.12% (ORAL KIT) 15 ML CUP MT SCH ×2 (08:08→20:31)
[2016-12-27] MEDS: INSULIN DETEMIR 100 UNITS/ML VIAL SQ SCH ×2 (08:08→20:30)
[2016-12-27] MEDS: FERROUS SULFATE 300 MG /5ML UDC PO SCH ×2 (08:08→20:28)
[2016-12-27] MEDS: ARTIFICIAL TEARS OPTH SOLN 15 ML BTL EACH EYE SCH ×3 (08:09→20:33)
[2016-12-27] MEDS: EPOETIN ALFA 10,000 UNITS/ML VIAL SQ SCH (08:41)
[2016-12-27] MEDS: DEXTROSE 5% IN WATE 1000ML INJ 1,000 ML IV SCH (13:20)
[2016-12-27] MEDS: CEFEPIME INJ 1,000 MG in SODIUM CHLORIDE 0.9% INJ 100 ML IV SCH (13:22)
[2016-12-27] MEDS: PANTOPRAZOLE SODIUM 40 MG VIAL IV PUSH SCH ×2 (13:33→23:58)
--- NOTE | 2016-12-27 14:18 | HHI.NPPN ---
Subjective History of Present Illness 86 year old with CVA, Resp failure s/p Trach/ PEG Additional Remarks On the vent. Non oliguric. Poor renal function, Objective Data Data 12/26/16 12/27/16 19:00 07:00 Intake Total 880 ml 839 ml Output Total 700 ml 1510.0 ml Balance 180 ml -671.0 ml IV Total 420 ml 297 ml Tube Feeding 460 ml 542 ml Output Urine Total 700 ml 400 ml Stool Total 1100 ml Tube Feeding Residual Discard 10.0 ml # Bowel Movements 3 Vital Signs Date Time Temp Pulse Resp B/P Pulse Ox O2 Delivery O2 Flow Rate FiO2 12/27/16 12:56 100 30 12/27/16 12:00 68 12/27/16 10:55 100 30 12/27/16 10:00 61 12/27/16 08:12 100 30 12/27/16 08:00 60 12/27/16 08:00 30 12/27/16 08:00 95.0 61 15 83/40 97 12/27/16 06:00 59 12/27/16 04:07 97 30 12/27/16 04:00 53 12/27/16 04:00 53 18 81/42 97 12/27/16 04:00 30 12/27/16 02:00 52 12/27/16 00:02 100 30 12/27/16 00:00 52 12/27/16 00:00 30 12/27/16 00:00 52 16 86/44 100 12/26/16 22:00 51 12/26/16 20:21 100 30 12/26/16 20:00 50 15 100/55 100 12/26/16 20:00 50 12/26/16 20:00 30 12/26/16 16:00 30 12/26/16 16:00 98.9 54 15 88/44 98 12/26/16 16:00 54 12/26/16 15:25 96 30 -: 12/27/16 0508 12/24/16 0625 Physical Exam Neck Neck Remarks s/p trach Pulmonary Resp Exam: Decreased Bases Cardiology CV Exam: Regular Gastrointestinal/Abdomen GI Exam: Soft, Non-Tender Extremeties Extremities Exam: Moderate Edema Assessment/Plan Problem List: (1) Acute renal failure Plan: Non oliguric renal failure. Demonstrates volume overload. Liver failure. Continue Diuril. On D5W at 30 ml/hour. 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 Ongoing anemia, continue to monitor. getting PRBC on regular interval BUN/cr higher Low Hb dropped again agree with Palliative care ethics meeting with son as futile care with hopeless situation and no chance of meaningful recovery. Patient has BRIANA and not a candidate for machine long goods helper HD. (2) Metabolic acidosis Plan: Stable, continue to monitor (3) Pneumonia Plan: On vent treated earlier with antibiotic (4) Urinary tract infection Plan: Escherichia coli she was treated (5) CVA (cerebral vascular accident) Plan: Massive stroke neurology following (6) Rhabdomyolysis Plan: This resolved (7) Hypernatremia Plan: Given 1L of DW over weekend improved Continue to monitor, repeat as necessary (8) Gastrointestinal hemorrhage Plan: Multiple PRBC given AVM poor prognosis Plan Poor prognosis. Problem Qualifiers (1) Acute renal failure: Qualified Code: N17.9 - Acute renal failure, unspecified acute renal failure type (2) CVA (cerebral vascular accident): Qualified Code: I63.9 - Cerebrovascular accident (CVA), unspecified mechanism (3) Rhabdomyolysis: Qualified Code: M62.82 - Non-traumatic rhabdomyolysis Kristel Zuniga MD December 27, 2016 14:18
--- NOTE | 2016-12-27 18:16 | HHI.IDPN ---
Subjective Subjective Remarks Reconsulted by Dr Quintana re ESBL + organism in the urine Progress noted case dw Cam Quintana and Mir Pt noted to have intermitted hypothermia since 12/23 requiring warming blanket She is thrombocytopenic, cont to have GIBs with underlying coagulopathy and thrombocytopenia. She remains full code with aggressive goals SHe is on the vent cont to receive transfusions Antibiotics cefepime Allergies: Coded Allergies: *MDRO Multi-Drug Resistant Organism (Verified Adverse Reaction, Unknown, ) KPC (urine)-12/23/16 Objective . Vital Signs Date Time Temp Pulse Resp B/P Pulse Ox O2 Delivery O2 Flow Rate FiO2 12/27/16 17:03 98 30 12/27/16 12:56 100 30 12/27/16 12:00 68 12/27/16 10:55 100 30 12/27/16 10:00 61 12/27/16 08:12 100 30 12/27/16 08:00 60 12/27/16 08:00 30 12/27/16 08:00 95.0 61 15 83/40 97 12/27/16 06:00 59 12/27/16 04:07 97 30 12/27/16 04:00 53 12/27/16 04:00 53 18 81/42 97 12/27/16 04:00 30 12/27/16 02:00 52 12/27/16 00:02 100 30 12/27/16 00:00 52 12/27/16 00:00 30 12/27/16 00:00 52 16 86/44 100 12/26/16 22:00 51 12/26/16 20:21 100 30 12/26/16 20:00 50 15 100/55 100 12/26/16 20:00 50 12/26/16 20:00 30 12/26/16 12/26/16 12/27/16 15:00 23:00 07:00 Intake Total 880 ml 472 ml 367 ml Output Total 700 ml 560.0 ml 950 ml Balance 180 ml -88.0 ml -583 ml IV Total 420 ml 135 ml 162 ml Tube Feeding 460 ml 337 ml 205 ml Output Urine Total 700 ml 250 ml 150 ml Stool Total 300 ml 800 ml Tube Feeding Residual Discard 10.0 ml # Bowel Movements 3 . Laboratory Tests Test 12/26/16 12/27/16 06:00 05:08 White Blood Count 5.5 TH/MM3 Red Blood Count 2.48 MIL/MM3 Hemoglobin 7.1 GM/DL 7.0 GM/DL Hematocrit 22.2 % 21.6 % Mean Corpuscular Volume 89.6 FL Mean Corpuscular Hemoglobin 28.8 PG Mean Corpuscular Hemoglobin 32.1 % Concent Red Cell Distribution Width 19.3 % Platelet Count 36 TH/MM3 Mean Platelet Volume 11.1 FL Imaging Last Impressions Chest X-Ray 12/20/16 0000 Signed Impressions: Service Date/Time: Tuesday, December 20, 2016 02:14 - CONCLUSION: No significant interval change. Juan Miguel Alcazar MD Upper Extremity Ultrasound 12/14/16 0000 Signed Impressions: Service Date/Time: November 14:39 - CONCLUSION: Thrombus within the cephalic vein. Belkis Rodriguez MD Thoracentesis 12/01/16 0000 Signed Impressions: Service Date/Time: Thursday, December 01, 2016 18:56 - CONCLUSION: Uncomplicated CT-guided thoracentesis. Jeffery Alvarado MD Chest CT 12/01/16 0000 Signed Impressions: Service Date/Time: Thursday, December 01, 2016 13:09 - CONCLUSION: Bilateral pleural effusion, larger on the right than the left. Mack Cao MD FACR Abdomen/Pelvis CT 12/01/16 0000 Signed Impressions: Service Date/Time: Thursday, December 01, 2016 13:09 - CONCLUSION: 1. Right inguinal hernia containing only fluid. 2. Generalized anasarca. 3. Trace ascites. 4. Bilateral pleural effusions, larger on the right than the left. Mack Cao MD FACR Abdomen Ultrasound 11/27/16 0000 Signed Impressions: Service Date/Time: Sunday, November 27, 2016 08:35 - CONCLUSION: Stone in the neck of the gallbladder. Trace ascites and mild splenomegaly Jeffery Alvarado MD Gastrostomy Tube Placement 11/24/16 0000 Signed Impressions: Service Date/Time: Sunday, November 27, 2016 14:34 - CONCLUSION: Uncomplicated gastrostomy tube placement as above. Kirit Alcantar MD Head CT 11/08/16 [id number] Signed Impressions: Service Date/Time: Tuesday, November 08, 2016 17:06 - CONCLUSION: Low density seen throughout the posterior circulation regions including the susan and midbrain, cerebellar hemispheres, occipital and posterior medial temporal lobes and right thalamus. This likely represents areas of infarction involving the posterior territory circulation. Jeffery Zhong MD Carotid Artery Ultrasound 11/08/16 0000 Signed Impressions: Service Date/Time: Tuesday, November 08, 2016 22:24 - CONCLUSION: Mild calcified plaque at the carotid bulbs. No evidence of hemodynamically significant carotid stenosis. José Luis Beltran MD Physical Exam CONSTITUTIONAL/GENERAL: on mech vent , in no apparent distress. trach'ed , on vent TUBES/LINES/DRAINS: SKIN: No jaundice, rashes, or lesions. Skin temperature appropriate. Not diaphoretic. EYES: No scleral icterus. No injection or drainage. Fundi not examined. ENT: moist mucosae NECK: trach in place with small amount of mucoid bloody drainage CARDIOVASCULAR: Regular rate and rhythm without murmurs, gallops, or rubs. No JVD. Peripheral pulses symmetric. RESPIRATORY/CHEST: Symmetric, unlabored respirations. Scattered rhonchi to auscultation. Breath sounds equal bilaterally. GASTROINTESTINAL: Abdomen soft, no reaction to palpation, moderately distended. No hepato-splenomegaly, or palpable masses. GENITOURINARY: Without palpable bladder distension. Tejeda catheter in place with clear yellow urine MUSCULOSKELETAL: Extremities without clubbing, cyanosis, 3-4+ soft pitting edema more prominent on BUE. No joint tenderness or effusion noted. 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
--- NOTE | 2016-12-27 20:22 | HHI.CCPN ---
Subjective Remarks/Hospital Course This is an 86yF with per report no other past medical history who presented to the ER after she was found unresponsive in her bed. According to ER reports, her family saw her normal last night when she had a fall, with unknown LOC. At that point, he helped her back to bed. However, this morning she did not wake up. On arrival to the ER, she was unresponsive only withdrawing to pain. she was intubated for airway protection and a poor GCS. CT head demonstrated massive posterior-circulation ischemic stroke. The patient is currently intubated and unresponsive and cannot provide any additional history. 11/09: No acute changes overnight. Palliative care team has consult with the family regarding goals of care. Currently the patient's sedation fentanyl infusion has been turned off without any response from patient. The patient notably does withdrawal to pain. 11/10: No change in neurological status. [id number]. The patient withdraws to pain 4 extremities. The patient currently on no sedation, fentanyl infusion discontinued yesterday. Tube feeds were initiated. The patient's urine culture grew back Escherichia coli, the patient was started on antibiotics. Extensive discussion with son regarding patient's neurological status, son Wyatt has had extensive discussion with palliative care.The son feels that yesterday when the patient was spoken to in [place]ian the patient squeezed his hand and desires aggressive treatment. The patient's neuro status is unchanged, totally unresponsive with occasional reflexive twitching of feet B/L. Follow-up with neurology Dr. Pack, guarding any further imaging studies. 11/13: No change in neuro exam. Palliative care following. Family wanting full aggressive care. Palliative care will address early trach PEG 11/14: No improvement in neuro status. Son has not made decisions regarding trach and PEG. Apparently he wants to wait longer to see any improvement 11/15: Remains unresponsive. Neuro exam with extensor posturing-unchanged. Son requesting aggressive care. Continues to have low-grade fever 11/16: Clinically no improvement. Tolerates CPAP. Unable to extubate as patient will not protect airway 11/17: Tolerating C Pap but no change in neuro exam. Hemoglobin noted to be 6.8 hemodynamically stable 11/18: Became tachycardic and hypotensive early a.m., placed on assist control. Otherwise neuro exam remains unchanged 11/19: Continues to spike fever Tmax 102, started on vancomycin and cefepime in addition to Levaquin yesterday. Currently only low-grade fever. Received 2 units of blood for hemoglobin of 5.3. CBC pending at this time. No improvement in neuro exam 11/20: White count is 18.3 today, MAXIMUM TEMPERATURE 103.1. Chest x-ray showing right sided infiltrate. Urine culture with gram-negative rods and Brionna albicans. ID consulted Diflucan added 11/21/16: Tmax 101.5. Bilateral lung infiltrates, R>L but slightly improved. No improvement in neuro exam. ID consulted and following. 11/22/16: No fever. CT chest- moderate to large R pleural effusion, bilateral lung infiltrates. ABX per ID. CXR today shows increasing bilateral infiltrates and effusion right more than left. Almost near complete infiltrates on the right lung houstno. Vaginally worsening creatinine today 1.45 indicating multiorgan failure 11/23/16: Hb 9.8 today after 2U PRBC yesterday. Plan for tracheostomy today. INR normal platelet count 116. Worsening creatinine today is 1.6. UO 550 ml in 24 hours. 1L NS bolus and 75 ml per hour maintenance NS. Started on Dopamine 3 mcg per min to maintain MAP>65 11/24 Patient is on ventilator via trach. Afebrile. On Dopamine 4 mics. 11/25 No acute events overnight. s/p EGD yesterday showed mild gastritis unable to place PEG tube endoscopically. Remains on Dopamine 4 mics. On no sedation unresponsive. 11/26 No acute events overnight. On CPAP with PS 20, PEEP: 5 and FIO2 40%. Afebrile. Off Dopamine. Afebrile. 11/27 Patient remains on ventilator via trach on no drips. Afebrile. For PEG tube placement by IR today. 11/28 Patient s/p PEG tube placement by IR yesterday, s/p Right thoracentesis with removal 700ml CXR showed better aeration of lungs, Hgb 6.7 this morning 2units PRBC ordered. Renal function worse with Cr: 3.40 from 2.85 . 11/29: Remains encephalopathic on mechanical ventilation via tracheostomy. 11/30: Remains encephalopathic on mechanical ventilation via tracheostomy. 12/01 Patient s/p transfusion 1unit PRBC last night for Hgb 5.8 in addition to 2L NS. Hgb 6.5 this morning. 12/02: Afebrile. The patient underwent CT-guided thoracentesis yesterday with approximately 600 cc removed. Chest x-ray pending this a.m.. Patient received packed red blood cell 2 units yesterday. Hemoglobin 7.4. Pending EGD today. 12/03:The patient underwent EGD yesterday with Dr. Farnsworth patient was noted to have a large active bleeding ulcer in the body of the stomach, multiple AVMs. Multiple ablations performed. This a.m. hemoglobin dropped to 6.1, platelet count 38. The patient was transfused 2 PRBC, and a unit of platelets. Patient still not relieved receiving any nutrition will begin PPN today. The patient continues to have copious amounts of melena with fecal incontinence apparatus in place. 12/04: The patient continues to have copious melena. PT INR drawn last evening INR was noted to be 13.5. The patient received KCentra, and current INR 1.3 the family requests aggressive measures to be continued. No further interventions from gastroenterology per . IR deemed the patient not a candidate for arteriography or endovascular treatment. 12/05: Patient's current medical status unchanged. Large tarry stools, acute blood loss anemia continues in conjunction with thrombocytopenia. During the night the nurse reported a malodorous scent was noted in free water flush container for instillation through G-tube. It was noted to be possibly fish oil , patient's son was in the room during that time. Container removed. The patient is noted to have a hemoglobin level of 5.8 today will receive 2 units of packed red blood cells and 1 unit of platelets today. 12/06: The patient continues to have copious melena. The patient received one 6 pack of platelets, and 2 units of blood yesterday. Tonight as reported by the nurse in the evening the son continue to utilize fish oil in the patient's free water, which was removed by the nurse. Ethics committee consult was initiated with Dr. Bauer yesterday, regarding assessing goals of care. 12/07: The patient's INR 1.3. Patient received 2 units of blood and one 6 pack of platelets yesterday. Awaiting ethics committee meeting with Dr. Bauer. The patient continues to require transfusions. 4/14: Patient was noted to have a drop in hemoglobin this a.m.. The patient is being transfused 2 units of PRBCs, with noted difficulty obtaining unit secondary to antibodies. Hematology will be consulted. Bioethics committee meeting planned to convene in one week, patient's son has agreed to attend. 12/09: Afebrile. No change in neuro status. Wound Care consult for left and blisters on back, orders provided. Hemoglobin stable post 2 units packed red blood cells yesterday. 12/10: The patient's hemoglobin 7.6 yesterday, hemoglobin pending for today. Overnight RN reported family member son continually putting some chemicals in the gastric tube of the patient, risk management notified. Hematology oncology has evaluated the patient, awaiting bioethics committee meeting scheduled for next week. The patient continues on PPN for nutritional support. 12/11 Patient remains on ventilator via trach on no sedation unresponsive. Afebrile.On Protonix drip and PPN. 12/12 No acute events overnight. Afebrile. Hgb 6.8 this morning 2 units PRBC ordered . 12/13 Patient remains on ventilator via trach, s/p transfusion 2units PRBC yesterday Hgb 9.1 this morning. Afebrile. On Protonix drip. 12/14 Patient s/p EGD yesterday which showed esophageal varices and hiatal hernia. On Ventilator via trach. H/H stable. On Protonix drip. 12/15 No acute events overnight. Afebrile. 12/16 Patient remains on ventilator via trach. Afebrile. 12/17 No acute events overnight. Afebrile. 12/18 Patient remains on ventilator via trach. Afebrile. Renal function continue to decline with Cr: 3.2 today from 3.0 with UO 805ml in 24 hrs. Afebrile. 12/19 No acute events overnight. Patient was given 2units Cryo and Vitamin K 5mg x1 by heme. On CPAP with FIO2 30%. Afebrile. Cr: 3.16 from 3.20 with UOP 1150ml in 24 hrs. 12/20: Neuro status remains unchanged. Had some black tarry stools reportedly. 12/21: Remains encephalopathic, on mechanical ventilation via tracheostomy. Hemoglobin dropped to 6.7 today. Has some black tarry stools. Being transfused 1 unit PRBCs. 12/22: Remains encephalopathic, on mechanical ventilation via tracheostomy. 12/23: Remains encephalopathic. On mechanical ventilation via trach. Hemoglobin 7.4 this morning. 1 unit PRBCs ordered. 12/24: Remains encephalopathic on mechanical ventilation. Transfuse 2 units PRBCs yesterday. 12/25: Remains encephalopathic on mechanical ventilation. Hemoglobin drifting down. 12/26: Remains on mechanical ventilation via tracheostomy. Being transfused 1 unit PRBCs today for drop in hemoglobin. 12/27: Remains encephalopathic, on mechanical ventilation via tracheostomy. Now has fungemia and KPC in urine. Transfused 2 units PRBCs today Objective Vital Signs Date Time Temp Pulse Resp B/P Pulse Ox O2 Delivery O2 Flow Rate FiO2 12/27/16 19:34 96 35 12/27/16 18:00 104 12/27/16 16:00 100.5 15 90/44 Intake and Output 12/26/16 12/26/16 12/27/16 08:00 16:00 00:00 Intake Total 631 ml 880 ml 472 ml Output Total 1300 ml 700 ml 560.0 ml Balance -669 ml 180 ml -88.0 ml Result Diagram: 12/27/16 0508 12/24/16 0625 Imaging Last Impressions Chest X-Ray 12/15/16 0000 Signed Impressions: Service Date/Time: Thursday, December 15, 2016 10:46 - CONCLUSION: No appreciable change. Belkis Rodriguez MD Upper Extremity Ultrasound 12/14/16 0000 Signed Impressions: Service Date/Time: November 14:39 - CONCLUSION: Thrombus within the cephalic vein. Belkis Rodriguez MD Thoracentesis 12/01/16 0000 Signed Impressions: Service Date/Time: Thursday, December 01, 2016 18:56 - CONCLUSION: Uncomplicated CT-guided thoracentesis. Jeffery Alvarado MD Chest CT 12/01/16 0000 Signed Impressions: Service Date/Time: Thursday, December 01, 2016 13:09 - CONCLUSION: Bilateral pleural effusion, larger on the right than the left. Mack Cao MD FACR Abdomen/Pelvis CT 12/01/16 0000 Signed Impressions: Service Date/Time: Thursday, December 01, 2016 13:09 - CONCLUSION: 1. Right inguinal hernia containing only fluid. 2. Generalized anasarca. 3. Trace ascites. 4. Bilateral pleural effusions, larger on the right than the left. Mack Cao MD FACR Abdomen Ultrasound 11/27/16 0000 Signed Impressions: Service Date/Time: Sunday, November 27, 2016 08:35 - CONCLUSION: Stone in the neck of the gallbladder. Trace ascites and mild splenomegaly Jeffery Alvarado MD Gastrostomy Tube Placement 11/24/16 0000 Signed Impressions: Service Date/Time: Sunday, November 27, 2016 14:34 - CONCLUSION: Uncomplicated gastrostomy tube placement as above. Kirit Alcantar MD Head CT 11/08/16 1657 Signed Impressions: Service Date/Time: Tuesday, November 08, 2016 17:06 - CONCLUSION: Low density seen throughout the posterior circulation regions including the susan and midbrain, cerebellar hemispheres, occipital and posterior medial temporal lobes and right thalamus. This likely represents areas of infarction involving the posterior territory circulation. Jeffery Zhong MD Carotid Artery Ultrasound 11/08/16 0000 Signed Impressions: Service Date/Time: Tuesday, November 08, 2016 22:24 - CONCLUSION: Mild calcified plaque at the carotid bulbs. No evidence of hemodynamically significant carotid stenosis. José Luis Beltran MD Objective Remarks GENERAL: Patient is 86 yo on ventilator via trach. SKIN: Warm and dry. HEAD: Normocephalic. EYES: Pallor present, No scleral icterus. No injection or drainage. NECK: Supple, trachea midline. No JVD or lymphadenopathy. CARDIOVASCULAR: Regular rate and rhythm without murmurs, gallops, or rubs. RESPIRATORY: Breath sounds equal bilaterally. Few coarse BS. 8.0 trach in situ GASTROINTESTINAL: Abdomen soft, non-tender, nondistended. PEG in place MUSCULOSKELETAL: No cyanosis, peripheral 2+ edema bilateral upper extremities. Left heel gauze dressing Neuro: LIDYA. Negative cough. Negative gag. Extensor posturing in uppers. Downgoing Babinski. 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 She was last seen normal, nearly 24 hours, she was not a candidate for any interventional therapy. Unfortunately, given her age, and the extent of the stroke, her prognosis for any reasonable neurologic function is quite poor. Active GI bleed discussed with family, and patient's poor prognosis. Her family continues to express wishes for aggressive medical management. Bioethics has been consulted. Active problems: Massive posterior circulation ischemic CVA Hypoxic and hypercarbic respiratory failure Severe encephalopathy secondary to stroke Severe sepsis Fungemia Healthcare associated pneumonia with pleural effusion Acute kidney injury UTI Anemia-acute and chronic Hyperglycemia of critical illness Thrombocytopenia Active GI bleed with AVM's Plan Neuro: Monitor neuro status per ICU protocol. Remains comatose - Avoid sedatives. Neuro is following -11/08 CT brain: Low density seen throughout the posterior circulation regions including the susan and midbrain, cerebellar hemispheres, occipital and posterior medial temporal lobes and right thalamus. This likely represents areas of infarction involving the posterior territory circulation Resp: -Continue with vent support keep sat >92% Vent bundle, Head of bed 30, bronchodilators-scheduled -s/p trach 11/23, pulm toilet, trach care -SBT daily as lia. -s/p CT guided right thoracentesis 11/27 with removal 700ml clear fluid. CVS: Monitor HR and BP keep MAP>65mmhg 2-D echo -EF 5560 %, mild aortic mitral and tricuspid regurgitation, No RWMA. 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 --IR intervention-patient is not a candidate. On Protonix 40 mg IV every 12 hourly -s/p PEG tube placement by IR 11/27 , -s/p EGD 11/24 showed mild gastritis unable to place PEG tube endoscopically. -Monitor LFT's, US abdomen: Stone in neck of gall bladder, no hydronephrosis -12/01 CT abdomen/pelvis-generalized anasarca, trace ascites, bilateral pleural effusions right greater than left Continues to have recurrent GI bleeding. No further intervention planned except transfusions in view of extremely poor prognosis with no likelihood of meaningful recovery. Tube feeds as tolerated. : -Monitor renal function, I/O's, electrolytes replacement as needed. Avoid nephrotoxins Rising BUN creatinine noted. Being followed by nephrology. Not a candidate for dialysis ID: - Resumed cefepime on 12/23 after stringer cultures for hypothermia and hypotension for suspected sepsis. Blood cultures growing Brionna para up cillosis and urine cultures with ESBL positive/KPC bacteruria -Reconsulted ID Dr. Wen. Cefepime stopped and started on Cipro and fluconazole IV on 12/27 per ID. Heme Monitor CBC. On Fe Sulfate 300mg BID s/p Vitamin K 5mg x1 nad 2 units Cryo. Follow coags per hematolgy Hematology is following-Dr. Alaniz. On Epogen M,W,F. Heme is following Hep Plt ab negative. Transfuse PRBCs to keep hemoglobin above 7 g percent Endo: --SSI High scale , [id number] u Q12 Msk: --Red and sacral area, left heel wound --12/06 Wound care consulted --Specialty bed-Airflow Proph: Subcutaneous heparin on hold since 11/23 secondary to thrombocytopenia, anemia and GI bleed. SCDs for DVT prophylaxis Protonix for GI prophylaxis RUE US.Thrombus in cephalic veins Not on AC due to GI bleed , anemia requiring blood transfusion and thrombocytopenia with PLT <50 Poor prognosis. -Palliative care is following. Son wishes to continue aggressive medical care despite being informed about extremely poor prognosis with no chance of meaningful recovery. IV access: Peripheral IV's Condition critical Time spent on critical care excluding procedures [address] Wen, discussed with ICU nursing staff, discussed with palliative care. Nate Quintana MD December 27, 2016 20:22
[2016-12-27] MEDS: FLUCONAZOLE 400 MG PREMIX BAG 200 ML IV SCH (20:28)
[2016-12-27] MEDS: CIPROFLOXACIN 400 MG PREMIX 200 ML IV SCH (20:41)
[2016-12-27] MEDS ORDERED: PHYTONADIONE 5 MG TAB PO ONE (22:45)
--- NOTE | 2016-12-27 22:55 | PD.ONC.PN ---
Subjective Subjective Remarks patient with fungemia and Enterococcus cloacae in Urine remains intubated 2 unit sof pRBC given this am no apparent bleeding Objective Data Date Time Temp Pulse Resp B/P Pulse Ox O2 Delivery O2 Flow Rate FiO2 12/27/16 20:00 111 12/27/16 20:00 30 12/27/16 20:00 103.5 111 37 105/52 97 12/27/16 19:34 96 35 12/27/16 18:00 104 12/27/16 17:03 98 30 12/27/16 16:00 100.5 90 15 90/44 97 12/27/16 16:00 30 12/27/16 16:00 90 12/27/16 14:00 68 12/27/16 12:56 100 30 12/27/16 12:00 98.5 68 15 96/46 97 12/27/16 12:00 68 12/27/16 12:00 30 12/27/16 10:55 100 30 12/27/16 10:00 61 12/27/16 08:12 100 30 12/27/16 08:00 60 12/27/16 08:00 30 12/27/16 08:00 95.0 61 15 83/40 97 12/27/16 06:00 59 12/27/16 04:07 97 30 12/27/16 04:00 53 12/27/16 04:00 53 18 81/42 97 12/27/16 04:00 30 12/27/16 02:00 52 12/27/16 00:02 100 30 12/27/16 00:00 52 12/27/16 00:00 30 12/27/16 00:00 52 16 86/44 100 12/27/16 12/27/16 12/27/16 07:00 15:00 23:00 Intake Total 367 ml 906 ml Output Total 950 ml 1250 ml Balance -583 ml -344 ml Result Diagram: 12/27/16 0508 12/24/16 0625 Laboratory Results Laboratory Tests Test 12/27/16 12/27/16 05:08 06:57 Hemoglobin 7.0 GM/DL Hematocrit 21.6 % Blood Type O POSITIVE Crossmatch Leukocyte-Reduced Red Blood Cells Blood Bank Comment Culture Results Microbiology Date/Time Procedure Status Source Growth 12/27/16 19:05 Aerobic Blood Culture Received Blood Peripheral Pending 12/27/16 19:05 Anaerobic Blood Culture Received Blood Peripheral Pending 12/27/16 19:18 Aerobic Blood Culture Received Blood Peripheral Pending 12/27/16 19:18 Anaerobic Blood Culture Received Blood Peripheral Pending Administered Medications Medications (Trade) Dose Ordered Sig/Swati Route PRN Reason Start Time Stop Time Status Last Admin Dose Admin Chlorhexidine Gluconate (Peridex 0.12% Liq) 15 ml BID@08,20 MT 11/08/16 20:00 12/27/16 20:31 IV Flush (NS Flush) 2 ml BID IV FLUSH 11/08/16 21:00 12/27/16 08:07 Ondansetron HCl (Zofran Inj) 4 mg Q6H PRN IV NAUSEA OR VOMITING 11/08/16 19:45 11/30/16 21:43 Heparin Sodium (Porcine) (Heparin Inj) 5,000 units Q12H SQ 11/08/16 20:00 Hold 11/23/16 20:02 Chlorhexidine Gluconate (Chlorhexidine 2% Cloth) Taper DAILY@04 TOP 11/09/16 04:00 11/05/17 03:59 12/27/16 04:00 Artificial Tears (Tears Naturale Opth Soln) 1 drop TID EACH EYE 11/09/16 18:00 12/27/16 20:33 Ferrous Sulfate (Ferrous Sulfate Liq) 300 mg BID PO 11/11/16 09:00 12/27/16 20:28 Epoetin Ty (Epogen Inj) 10,000 units MoWeFr SQ 11/13/16 06:00 12/27/16 08:41 Acetaminophen (Tylenol 650 Mg/ 20 ml Liq) 650 mg Q4H PRN OG-TUBE TEMP>101 11/12/16 17:00 11/21/16 04:43 Hyoscyamine Sulfate (Levsin Liq) 0.25 mg Q6H PRN PO ORAL SECRETIONS 11/30/16 16:00 12/25/16 08:54 Pantoprazole Sodium (Protonix Inj) 40 mg Q12H IV PUSH 12/15/16 11:00 12/27/16 13:33 Insulin Detemir (Levemir Inj) 10 units Q12HR SQ 12/19/16 09:00 12/27/16 20:30 Insulin Human Regular 1 1 Q6HR SQ 12/19/16 06:45 12/27/16 18:00 Dextrose (D5W 1000 ml Inj) 1,000 ml @ 30 mls/hr Q24H IV 12/23/16 09:45 12/27/16 13:20 Chlorothiazide Sodium 250 mg 250 mg Q12HR IV 12/23/16 11:00 12/27/16 20:29 Sodium Chloride 250 ml @ 15 mls/hr ONCE ONCE IV 12/27/16 07:00 12/27/16 23:39 12/27/16 07:00 Fluconazole/ Sodium Chloride 200 ml @ 100 mls/hr Q24H IV 12/27/16 18:00 12/27/16 20:28 Ciprofloxacin/ Dextrose (Cipro 400 Mg Premix) 200 ml @ 200 mls/hr Q24H IV 12/27/16 18:45 12/27/16 20:41 Objective Remarks GENERAL: critically ill CARDIOVASCULAR: Regular rate and rhythm without murmurs. RESPIRATORY: coarse breath sounds GASTROINTESTINAL: Abdomen soft, bs absent EXTREMITIES: No cyanosis, edematous Assessment/Plan Assessment 86y/o female critically ill with poor prognosis following a large stroke some weeks ago. Hematology consulted for anemia secondary to GIB/acute illness with underlying coagulopathy and thrombocytopenia. Plan 1. Minimize blood transfusions. Transfuse to keep Hb >7 2. daily coags and fibrinogen in am 4. Thrombocytopenia due to critical illness Remains gravely ill. aggressive care on going.full code. Alfonso Alaniz MD December 27, 2016 22:55
[2016-12-28] VITALS (25 sets, daily range): BP systolic 74–89; BP diastolic 38–45; PULSE 69–100; RESP 16–32; TEMP 97.4–100.5; O2SAT 96–100
[2016-12-28] MEDS ORDERED: ALBUMIN HUMAN 5% 25 GM/500 ML BOTTLE IV ONE (02:15)
[2016-12-28] MEDS: CHLORHEXIDINE GLUCONATE 2 % 1 PACK (2 CLOTHS) TOP SCH (04:00)
[2016-12-28 04:31] LABS: PROTHROMBIN TIME - PATIENT 22.5 SEC (9.8-11.6)
[2016-12-28] MEDS: INSULIN NovoLIN REGULAR SUPPLEMENTAL SCALE SQ SCH ×2 (05:23→08:00)
[2016-12-28] MEDS: CHLORHEXIDINE 0.12% (ORAL KIT) 15 ML CUP MT SCH ×2 (08:00→22:25)
[2016-12-28] MEDS ORDERED: PHYTONADIONE 5 MG TAB PO ONE (08:00)
[2016-12-28] MEDS: SODIUM CHLORIDE 0.9% FLUSH 5 ML FLUSH IV FLUSH SCH ×2 (09:00→21:00)
[2016-12-28] MEDS: ARTIFICIAL TEARS OPTH SOLN 15 ML BTL EACH EYE SCH ×3 (09:00→18:00)
[2016-12-28] MEDS: CHLOROTHIAZIDE SOD 500 MG VIAL IV SCH ×2 (09:00→21:00)
[2016-12-28] MEDS: FERROUS SULFATE 300 MG /5ML UDC PO SCH ×2 (09:00→22:26)
[2016-12-28] MEDS: INSULIN DETEMIR 100 UNITS/ML VIAL SQ SCH (09:00)
[2016-12-28] MEDS: PANTOPRAZOLE SODIUM 40 MG VIAL IV PUSH SCH ×2 (11:00→22:25)
--- NOTE | 2016-12-28 12:53 | HHI.NPPN ---
Subjective History of Present Illness 86 year old with CVA, Resp failure s/p Trach/ PEG Additional Remarks On the vent. Non oliguric. Poor renal function, Now has fungemia and Enterobacter KPC in urine Objective Data Data 12/27/16 12/28/16 19:00 07:00 Intake Total 906 ml 1863 ml Output Total 1250 ml 1300 ml Balance -344 ml 563 ml IV Total 1032 ml Tube Feeding 424 ml 554 ml Packed Cells 482 ml 277 ml Output Urine Total 250 ml 500 ml Stool Total 1000 ml 800 ml Vital Signs Date Time Temp Pulse Resp B/P Pulse Ox O2 Delivery O2 Flow Rate FiO2 12/28/16 11:30 75 19 76/38 98 12/28/16 11:00 76 19 76/39 99 12/28/16 10:30 78 19 76/40 98 12/28/16 10:00 91 12/28/16 10:00 79 20 81/40 98 12/28/16 09:30 79 20 77/42 98 12/28/16 09:00 80 19 77/38 98 12/28/16 08:51 99 30 12/28/16 08:30 80 19 76/38 98 12/28/16 08:23 80 18 76/39 98 12/28/16 08:00 85 12/28/16 08:00 30 12/28/16 08:00 81 17 74/39 98 12/28/16 06:00 85 12/28/16 04:00 91 12/28/16 04:00 97.4 91 21 84/42 99 12/28/16 04:00 30 12/28/16 02:00 95 12/28/16 00:40 99 30 12/28/16 00:00 100 12/28/16 00:00 30 12/28/16 00:00 100.5 100 32 89/42 97 12/27/16 20:00 111 12/27/16 20:00 30 12/27/16 20:00 103.5 111 37 105/52 97 12/27/16 19:34 96 35 12/27/16 18:00 104 12/27/16 17:03 98 30 12/27/16 16:00 100.5 90 15 90/44 97 12/27/16 16:00 30 12/27/16 16:00 90 12/27/16 14:00 68 12/27/16 12:56 100 30 -: 12/27/16 0508 12/24/16 0625 Microbiology 12/27/16 Aerobic Blood Culture - Preliminary, Resulted NO GROWTH IN 1 DAY 12/27/16 Anaerobic Blood Culture - Preliminary, Resulted NO GROWTH IN 1 DAY 12/27/16 Aerobic Blood Culture - Preliminary, Resulted NO GROWTH IN 1 DAY 12/27/16 Anaerobic Blood Culture - Preliminary, Resulted NO GROWTH IN 1 DAY Physical Exam Neck Neck Remarks s/p trach Pulmonary Resp Exam: Decreased Bases Cardiology CV Exam: Regular Gastrointestinal/Abdomen GI Exam: Soft, Non-Tender Extremeties Extremities Exam: Moderate Edema Assessment/Plan Problem List: (1) Acute renal failure Plan: Non oliguric renal failure. Demonstrates volume overload. Liver failure. Continue Diuril. On D5W at 30 ml/hour. 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 Ongoing anemia, continue to monitor. getting PRBC on regular interval BUN/cr higher as of 12/24 Low Hb low BP several PRBC Poor prognosis on Cipro/ Diflucan agree with Palliative care ethics meeting with son as futile care with hopeless situation and no chance of meaningful recovery. Patient has BRIANA and not a candidate for long-term HD. (2) Metabolic acidosis Plan: Stable, continue to monitor (3) Pneumonia Plan: On vent treated earlier with antibiotic (4) Urinary tract infection Plan: Escherichia coli she was treated (5) CVA (cerebral vascular accident) Plan: Massive stroke neurology following (6) Rhabdomyolysis Plan: This resolved (7) Hypernatremia Plan: Given 1L of DW over weekend improved Continue to monitor, repeat as necessary (8) Gastrointestinal hemorrhage Plan: Multiple PRBC given AVM poor prognosis Plan Poor prognosis. Problem Qualifiers (1) Acute renal failure: Qualified Code: N17.9 - Acute renal failure, unspecified acute renal failure type (2) CVA (cerebral vascular accident): Qualified Code: I63.9 - Cerebrovascular accident (CVA), unspecified mechanism (3) Rhabdomyolysis: Qualified Code: M62.82 - Non-traumatic rhabdomyolysis Kristel Zuniga MD December 28, 2016 12:53
--- NOTE | 2016-12-28 17:25 | HHI.IDPN ---
Subjective Subjective Remarks doing poorly cont to receive blood cont to have brian colored sttols remain on vent unresponsive normothermic hypotensive UOP dropping Antibiotics fluconazle cipro Allergies: Coded Allergies: *MDRO Multi-Drug Resistant Organism (Verified Adverse Reaction, Unknown, ) KPC (urine)-12/23/16 Objective . Vital Signs Date Time Temp Pulse Resp B/P Pulse Ox O2 Delivery O2 Flow Rate FiO2 12/28/16 15:44 99 30 12/28/16 14:00 72 12/28/16 13:30 73 19 80/40 99 12/28/16 13:00 75 19 81/41 99 12/28/16 12:30 74 20 78/40 99 12/28/16 12:00 77 12/28/16 12:00 98.9 75 19 78/39 99 12/28/16 12:00 30 12/28/16 11:30 75 19 76/38 98 12/28/16 11:00 76 19 76/39 99 12/28/16 10:30 78 19 76/40 98 12/28/16 10:00 91 12/28/16 10:00 79 20 81/40 98 12/28/16 09:30 79 20 77/42 98 12/28/16 09:00 80 19 77/38 98 12/28/16 08:51 99 30 12/28/16 08:30 80 19 76/38 98 12/28/16 08:23 80 18 76/39 98 12/28/16 08:00 85 12/28/16 08:00 30 12/28/16 08:00 81 17 74/39 98 12/28/16 06:00 85 12/28/16 04:00 91 12/28/16 04:00 97.4 91 21 84/42 99 12/28/16 04:00 30 12/28/16 02:00 95 12/28/16 00:40 99 30 12/28/16 00:00 100 12/28/16 00:00 30 12/28/16 00:00 100.5 100 32 89/42 97 12/27/16 20:00 111 12/27/16 20:00 30 12/27/16 20:00 103.5 111 37 105/52 97 12/27/16 19:34 96 35 12/27/16 18:00 104 12/27/16 12/27/16 12/28/16 15:00 23:00 07:00 Intake Total 906 ml 1579 ml 284 ml Output Total 1250 ml 900 ml 400 ml Balance -344 ml 679 ml -116 ml IV Total 919 ml 113 ml Tube Feeding 424 ml 383 ml 171 ml Packed Cells 482 ml 277 ml Output Urine Total 250 ml 400 ml 100 ml Stool Total 1000 ml 500 ml 300 ml . Laboratory Tests Test 12/27/16 05:08 Hemoglobin 7.0 GM/DL Hematocrit 21.6 % Microbiology Date/Time Procedure Status Source Growth 12/27/16 19:05 Aerobic Blood Culture - Preliminary Resulted Blood Peripheral NO GROWTH IN 1 DAY 12/27/16 19:05 Anaerobic Blood Culture - Preliminary Resulted Blood Peripheral NO GROWTH IN 1 DAY 12/27/16 19:18 Aerobic Blood Culture - Preliminary Resulted Blood Peripheral NO GROWTH IN 1 DAY 12/27/16 19:18 Anaerobic Blood Culture - Preliminary Resulted Blood Peripheral NO GROWTH IN 1 DAY Imaging Last Impressions Chest X-Ray 12/20/16 0000 Signed Impressions: Service Date/Time: Tuesday, December 20, 2016 02:14 - CONCLUSION: No significant interval change. Juan Miguel Alcazar MD Upper Extremity Ultrasound 12/14/16 0000 Signed Impressions: Service Date/Time: November 14:39 - CONCLUSION: Thrombus within the cephalic vein. Belkis Rodriguez MD Thoracentesis 12/01/16 0000 Signed Impressions: Service Date/Time: Thursday, December 01, 2016 18:56 - CONCLUSION: Uncomplicated CT-guided thoracentesis. Jeffery Alvarado MD Chest CT 12/01/16 0000 Signed Impressions: Service Date/Time: Thursday, December 01, 2016 13:09 - CONCLUSION: Bilateral pleural effusion, larger on the right than the left. Mack Cao MD FACR Abdomen/Pelvis CT 12/01/16 0000 Signed Impressions: Service Date/Time: Thursday, December 01, 2016 13:09 - CONCLUSION: 1. Right inguinal hernia containing only fluid. 2. Generalized anasarca. 3. Trace ascites. 4. Bilateral pleural effusions, larger on the right than the left. Mack Cao MD FACR Abdomen Ultrasound 11/27/16 0000 Signed Impressions: Service Date/Time: Sunday, November 27, 2016 08:35 - CONCLUSION: Stone in the neck of the gallbladder. Trace ascites and mild splenomegaly Jeffery Alvarado MD Gastrostomy Tube Placement 11/24/16 0000 Signed Impressions: Service Date/Time: Sunday, November 27, 2016 14:34 - CONCLUSION: Uncomplicated gastrostomy tube placement as above. Kirit Alcantar MD Head CT 11/08/16 1657 Signed Impressions: Service Date/Time: Tuesday, November 08, 2016 17:06 - CONCLUSION: Low density seen throughout the posterior circulation regions including the susan and midbrain, cerebellar hemispheres, occipital and posterior medial temporal lobes and right thalamus. This likely represents areas of infarction involving the posterior territory circulation. Jeffery Zhong MD Carotid Artery Ultrasound 11/08/16 0000 Signed Impressions: Service Date/Time: Tuesday, November 08, 2016 22:24 - CONCLUSION: Mild calcified plaque at the carotid bulbs. No evidence of hemodynamically significant carotid stenosis. José Luis Beltran MD Physical Exam CONSTITUTIONAL/GENERAL: on [facility] vent , in no apparent distress. trach'ed , on vent TUBES/LINES/DRAINS: SKIN: No jaundice, rashes, or lesions. Skin temperature appropriate. Not diaphoretic. EYES: No scleral icterus. No injection or drainage. Fundi not examined. ENT: moist mucosae NECK: trach in place with small amount of drainage CARDIOVASCULAR: Regular rate and rhythm without murmurs, gallops, or rubs. No JVD. Peripheral pulses symmetric. RESPIRATORY/CHEST: Symmetric, unlabored respirations. Scattered rhonchi to auscultation. Breath sounds equal bilaterally. GASTROINTESTINAL: Abdomen soft, no reaction to palpation, moderately distended. No hepato-splenomegaly, or palpable masses. GENITOURINARY: Without palpable bladder distension. Tejeda catheter in place with clear yellow urine MUSCULOSKELETAL: Extremities without clubbing, cyanosis, 3-4+ soft pitting edema more prominent on BUE. No joint tenderness or effusion noted. No mottling NEUROLOGICAL: unresponsive PSYCHIATRIC: Unable to assess LINES: PIVs in forearmsd wo e/o infx Assessment & Plan Remarks Massive posterior circulation ischemic CVA with severe neuro deficits Severe encephalopathy secondary to stroke VDRF Sepsis, hypothermia Fungemia, C parapsilosa - new ESBL+/KPC bacteriuria vs UTI, DIC Prognosis is poor both short and penitentiary; pt is unlikely to survive this hospitalization and meaninful neurological recovery is not possible - cont fluconazole high dose - asked micro to do sensitivity profile - will start Abelcet if not responding to fluconazole - rechk blood clx - change lines - cont cipro for the UTI dw RN Shani Ashford MD December 28, 2016 17:25
--- NOTE | 2016-12-28 17:36 | HHI.CCPN ---
Subjective Remarks/Hospital Course This is an 86yF with per report no other past medical history who presented to the ER after she was found unresponsive in her bed. According to ER reports, her family saw her normal last night when she had a fall, with unknown LOC. At that point, he helped her back to bed. However, this morning she did not wake up. On arrival to the ER, she was unresponsive only withdrawing to pain. she was intubated for airway protection and a poor GCS. CT head demonstrated massive posterior-circulation ischemic stroke. The patient is currently intubated and unresponsive and cannot provide any additional history. 11/09: No acute changes overnight. Palliative care team has consult with the family regarding goals of care. Currently the patient's sedation fentanyl infusion has been turned off without any response from patient. The patient notably does withdrawal to pain. 11/10: No change in neurological status. [id number]. The patient withdraws to pain 4 extremities. The patient currently on no sedation, fentanyl infusion discontinued yesterday. Tube feeds were initiated. The patient's urine culture grew back Escherichia coli, the patient was started on antibiotics. Extensive discussion with son regarding patient's neurological status, son Wyatt has had extensive discussion with palliative care.The son feels that yesterday when the patient was spoken to in Kh[place] the patient squeezed his hand and desires aggressive treatment. The patient's neuro status is unchanged, totally unresponsive with occasional reflexive twitching of feet B/L. Follow-up with neurology Dr. Pack, guarding any further imaging studies. 11/13: No change in neuro exam. Palliative care following. Family wanting full aggressive care. Palliative care will address early trach PEG 11/14: No improvement in neuro status. Son has not made decisions regarding trach and PEG. Apparently he wants to wait longer to see any improvement 11/15: Remains unresponsive. Neuro exam with extensor posturing-unchanged. Son requesting aggressive care. Continues to have low-grade fever 11/16: Clinically no improvement. Tolerates CPAP. Unable to extubate as patient will not protect airway 11/17: Tolerating C Pap but no change in neuro exam. Hemoglobin noted to be 6.8 hemodynamically stable 11/18: Became tachycardic and hypotensive early a.m., placed on assist control. Otherwise neuro exam remains unchanged 11/19: Continues to spike fever Tmax 102, started on vancomycin and cefepime in addition to Levaquin yesterday. Currently only low-grade fever. Received 2 units of blood for hemoglobin of 5.3. CBC pending at this time. No improvement in neuro exam 11/20: White count is 18.3 today, MAXIMUM TEMPERATURE 103.1. Chest x-ray showing right sided infiltrate. Urine culture with gram-negative rods and Brionna albicans. ID consulted Diflucan added 11/21/16: Tmax 101.5. Bilateral lung infiltrates, R>L but slightly improved. No improvement in neuro exam. ID consulted and following. 11/22/16: No fever. CT chest- moderate to large R pleural effusion, bilateral lung infiltrates. ABX per ID. CXR today shows increasing bilateral infiltrates and effusion right more than left. Almost near complete infiltrates on the right lung [place]. Vaginally worsening creatinine today 1.45 indicating multiorgan failure 11/23/16: Hb 9.8 today after 2U PRBC yesterday. Plan for tracheostomy today. INR normal platelet count 116. Worsening creatinine today is 1.6. UO 550 ml in 24 hours. 1L NS bolus and 75 ml per hour maintenance NS. Started on Dopamine 3 mcg per min to maintain MAP>65 11/24 Patient is on ventilator via trach. Afebrile. On Dopamine 4 mics. 11/25 No acute events overnight. s/p EGD yesterday showed mild gastritis unable to place PEG tube endoscopically. Remains on Dopamine 4 mics. On no sedation unresponsive. 11/26 No acute events overnight. On CPAP with PS 20, PEEP: 5 and FIO2 40%. Afebrile. Off Dopamine. Afebrile. 11/27 Patient remains on ventilator via trach on no drips. Afebrile. For PEG tube placement by IR today. 11/28 Patient s/p PEG tube placement by IR yesterday, s/p Right thoracentesis with removal 700ml CXR showed better aeration of lungs, Hgb 6.7 this morning 2units PRBC ordered. Renal function worse with Cr: 3.40 from 2.85 . 11/29: Remains encephalopathic on mechanical ventilation via tracheostomy. 11/30: Remains encephalopathic on mechanical ventilation via tracheostomy. 12/01 Patient s/p transfusion 1unit PRBC last night for Hgb 5.8 in addition to 2L NS. Hgb 6.5 this morning. 12/02: Afebrile. The patient underwent CT-guided thoracentesis yesterday with approximately 600 cc removed. Chest x-ray pending this a.m.. Patient received packed red blood cell 2 units yesterday. Hemoglobin 7.4. Pending EGD today. 12/03:The patient underwent EGD yesterday with Dr. Farnsworth patient was noted to have a large active bleeding ulcer in the body of the stomach, multiple AVMs. Multiple ablations performed. This a.m. hemoglobin dropped to 6.1, platelet count 38. The patient was transfused 2 PRBC, and a unit of platelets. Patient still not relieved receiving any nutrition will begin PPN today. The patient continues to have copious amounts of melena with fecal incontinence apparatus in place. 12/04: The patient continues to have copious melena. PT INR drawn last evening INR was noted to be 13.5. The patient received KCentra, and current INR 1.3 the family requests aggressive measures to be continued. No further interventions from gastroenterology per . IR deemed the patient not a candidate for arteriography or endovascular treatment. 12/05: Patient's current medical status unchanged. Large tarry stools, acute blood loss anemia continues in conjunction with thrombocytopenia. During the night the nurse reported a malodorous scent was noted in free water flush container for instillation through G-tube. It was noted to be possibly fish oil , patient's son was in the room during that time. Container removed. The patient is noted to have a hemoglobin level of 5.8 today will receive 2 units of packed red blood cells and 1 unit of platelets today. 12/06: The patient continues to have copious melena. The patient received one 6 pack of platelets, and 2 units of blood yesterday. Tonight as reported by the nurse in the evening the son continue to utilize fish oil in the patient's free water, which was removed by the nurse. Ethics committee consult was initiated with Dr. Bauer yesterday, regarding assessing goals of care. 12/07: The patient's INR 1.3. Patient received 2 units of blood and one 6 pack of platelets yesterday. Awaiting ethics committee meeting with Dr. Bauer. The patient continues to require transfusions. 4/14: Patient was noted to have a drop in hemoglobin this a.m.. The patient is being transfused 2 units of PRBCs, with noted difficulty obtaining unit secondary to antibodies. Hematology will be consulted. Bioethics committee meeting planned to convene in one week, patient's son has agreed to attend. 12/09: Afebrile. No change in neuro status. Wound Care consult for left and blisters on back, orders provided. Hemoglobin stable post 2 units packed red blood cells yesterday. 12/10: The patient's hemoglobin 7.6 yesterday, hemoglobin pending for today. Overnight RN reported family member son continually putting some chemicals in the gastric tube of the patient, risk management notified. Hematology oncology has evaluated the patient, awaiting bioethics committee meeting scheduled for next week. The patient continues on PPN for nutritional support. 12/11 Patient remains on ventilator via trach on no sedation unresponsive. Afebrile.On Protonix drip and PPN. 12/12 No acute events overnight. Afebrile. Hgb 6.8 this morning 2 units PRBC ordered . 12/13 Patient remains on ventilator via trach, s/p transfusion 2units PRBC yesterday Hgb 9.1 this morning. Afebrile. On Protonix drip. 12/14 Patient s/p EGD yesterday which showed esophageal varices and hiatal hernia. On Ventilator via trach. H/H stable. On Protonix drip. 12/15 No acute events overnight. Afebrile. 12/16 Patient remains on ventilator via trach. Afebrile. 12/17 No acute events overnight. Afebrile. 12/18 Patient remains on ventilator via trach. Afebrile. Renal function continue to decline with Cr: 3.2 today from 3.0 with UO 805ml in 24 hrs. Afebrile. 12/19 No acute events overnight. Patient was given 2units Cryo and Vitamin K 5mg x1 by heme. On CPAP with FIO2 30%. Afebrile. Cr: 3.16 from 3.20 with UOP 1150ml in 24 hrs. 12/20: Neuro status remains unchanged. Had some black tarry stools reportedly. 12/21: Remains encephalopathic, on mechanical ventilation via tracheostomy. Hemoglobin dropped to 6.7 today. Has some black tarry stools. Being transfused 1 unit PRBCs. 12/22: Remains encephalopathic, on mechanical ventilation via tracheostomy. 12/23: Remains encephalopathic. On mechanical ventilation via trach. Hemoglobin 7.4 this morning. 1 unit PRBCs ordered. 12/24: Remains encephalopathic on mechanical ventilation. Transfuse 2 units PRBCs yesterday. 12/25: Remains encephalopathic on mechanical ventilation. Hemoglobin drifting down. 12/26: Remains on mechanical ventilation via tracheostomy. Being transfused 1 unit PRBCs today for drop in hemoglobin. 12/27: Remains encephalopathic, on mechanical ventilation via tracheostomy. Now has fungemia and KPC in urine. Transfused 2 units PRBCs today 12/28: Patient remains on mechanical ventilation change in mental status. ID following, Dr. Wen. Objective Vital Signs Date Time Temp Pulse Resp B/P Pulse Ox O2 Delivery O2 Flow Rate FiO2 12/28/16 15:44 99 30 12/28/16 14:00 72 12/28/16 13:30 19 80/40 12/28/16 12:00 98.9 Intake and Output 12/27/16 12/27/16 12/28/16 08:00 16:00 00:00 Intake Total 367 ml 906 ml 1579 ml Output Total 950 ml 1250 ml 900 ml Balance -583 ml -344 ml 679 ml Result Diagram: 12/27/16 0508 12/24/16 0625 Imaging Last Impressions Chest X-Ray 12/15/16 0000 Signed Impressions: Service Date/Time: Thursday, December 15, 2016 10:46 - CONCLUSION: No appreciable change. Belkis Rodriguez MD Upper Extremity Ultrasound 12/14/16 0000 Signed Impressions: Service Date/Time: November 14:39 - CONCLUSION: Thrombus within the cephalic vein. Belkis Rodriguez MD Thoracentesis 12/01/16 0000 Signed Impressions: Service Date/Time: Thursday, December 01, 2016 18:56 - CONCLUSION: Uncomplicated CT-guided thoracentesis. Jeffery Alvarado MD Chest CT 12/01/16 0000 Signed Impressions: Service Date/Time: Thursday, December 01, 2016 13:09 - CONCLUSION: Bilateral pleural effusion, larger on the right than the left. Mack Cao MD FACR Abdomen/Pelvis CT 12/01/16 0000 Signed Impressions: Service Date/Time: Thursday, December 01, 2016 13:09 - CONCLUSION: 1. Right inguinal hernia containing only fluid. 2. Generalized anasarca. 3. Trace ascites. 4. Bilateral pleural effusions, larger on the right than the left. Mack Cao MD FACR Abdomen Ultrasound 11/27/16 0000 Signed Impressions: Service Date/Time: Sunday, November 27, 2016 08:35 - CONCLUSION: Stone in the neck of the gallbladder. Trace ascites and mild splenomegaly Jeffery Alvarado MD Gastrostomy Tube Placement 11/24/16 0000 Signed Impressions: Service Date/Time: Sunday, November 27, 2016 14:34 - CONCLUSION: Uncomplicated gastrostomy tube placement as above. Kirit Alcantar MD Head CT 11/08/16 1657 Signed Impressions: Service Date/Time: Tuesday, November 08, 2016 17:06 - CONCLUSION: Low density seen throughout the posterior circulation regions including the susan and midbrain, cerebellar hemispheres, occipital and posterior medial temporal lobes and right thalamus. This likely represents areas of infarction involving the posterior territory circulation. Jeffery Zhong MD Carotid Artery Ultrasound 11/08/16 0000 Signed Impressions: Service Date/Time: Tuesday, November 08, 2016 22:24 - CONCLUSION: Mild calcified plaque at the carotid bulbs. No evidence of hemodynamically significant carotid stenosis. José Luis Beltran MD Objective Remarks GENERAL: Patient is 86 yo on ventilator via trach. SKIN: Warm and dry. HEAD: Normocephalic. EYES: Pallor present, No scleral icterus. No injection or drainage. NECK: Supple, trachea midline. No JVD or lymphadenopathy. CARDIOVASCULAR: Regular rate and rhythm without murmurs, gallops, or rubs. RESPIRATORY: Breath sounds equal bilaterally. Few coarse BS. 8.0 trach in situ GASTROINTESTINAL: Abdomen soft, non-tender, nondistended. PEG in situ MUSCULOSKELETAL: No cyanosis, peripheral 2+ edema bilateral upper extremities. Left heel gauze dressing Neuro: LIDYA. Negative cough. Negative gag. Extensor posturing in uppers. Downgoing Babinski. 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 She was last seen normal, nearly 24 hours, she was not a candidate for any interventional therapy. Unfortunately, given her age, and the extent of the stroke, her prognosis for any reasonable neurologic function is quite poor. Active GI bleed discussed with family, and patient's poor prognosis. Her family continues to express wishes for aggressive medical management. Bioethics has been consulted. Active problems: Massive posterior circulation ischemic CVA Hypoxic and hypercarbic respiratory failure Severe encephalopathy secondary to stroke Severe sepsis Fungemia Healthcare associated pneumonia with pleural effusion Acute kidney injury UTI Anemia-acute and chronic Hyperglycemia of critical illness Thrombocytopenia Active GI bleed with AVM's Plan Neuro: Monitor neuro status per ICU protocol. Remains comatose - Avoid sedatives. Neuro is following -11/08 CT brain: Low density seen throughout the posterior circulation regions including the susan and midbrain, cerebellar hemispheres, occipital and posterior medial temporal lobes and right thalamus. This likely represents areas of infarction involving the posterior territory circulation Resp: -Continue with vent support keep sat >92% Vent bundle, Head of bed 30, bronchodilators-scheduled -s/p trach 11/23, pulm toilet, trach care -SBT daily as lia. -s/p CT guided right thoracentesis 11/27 with removal 700ml clear fluid. CVS: Monitor HR and BP keep MAP>65mmhg 2-D echo -EF 5560 %, mild aortic mitral and tricuspid regurgitation, No RWMA. 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 --IR intervention-patient is not a candidate. On Protonix 40 mg IV every 12 hourly -s/p PEG tube placement by IR 11/27 , -s/p EGD 11/24 showed mild gastritis unable to place PEG tube endoscopically. -Monitor LFT's, US abdomen: Stone in neck of gall bladder, no hydronephrosis -12/01 CT abdomen/pelvis-generalized anasarca, trace ascites, bilateral pleural effusions right greater than left Continues to have recurrent GI bleeding. No further intervention planned except transfusions in view of extremely poor prognosis with no likelihood of meaningful recovery. Tube feeds as tolerated. : -Monitor renal function, I/O's, electrolytes replacement as needed. Avoid nephrotoxins Rising BUN creatinine noted. Being followed by nephrology. Not a candidate for dialysis ID: - Resumed cefepime on 12/23 after stringer cultures for hypothermia and hypotension for suspected sepsis. Blood cultures growing Brionna para up cillosis and urine cultures with ESBL positive/KPC bacteruria -Reconsulted ID Dr. Wen. Cefepime stopped and started on Cipro and fluconazole IV on 12/27 per ID. Heme Monitor CBC. On Fe Sulfate 300mg BID s/p Vitamin K 5mg x1 nad 2 units Cryo. Follow coags per hematolgy Hematology is following-Dr. Alaniz. On Epogen M,W,F. Heme is following Hep Plt ab negative. Transfuse PRBCs to keep hemoglobin above 7 g percent And receiving cryoprecipitate and 1 unit of packed red blood cells today Endo: --SSI High scale , [id number] u Q12 Msk: --Red and sacral area, left heel wound --12/06 Wound care consulted --Specialty bed-Airflow Proph: Subcutaneous heparin on hold since 11/23 secondary to thrombocytopenia, anemia and GI bleed. SCDs for DVT prophylaxis Protonix for GI prophylaxis RUE US.Thrombus in cephalic veins Not on AC due to GI bleed , anemia requiring blood transfusion and thrombocytopenia with PLT <50 Poor prognosis. -Palliative care is following. Son wishes to continue aggressive medical care despite being informed about extremely poor prognosis with no chance of meaningful recovery. IV access: Peripheral IV's Condition critical This patient remains critically ill with one or more organ systems which are or may become a threat to life. I have spent in excess of 31 minutes discontinuously in the care and management of this patient. This time is exclusive of procedures, and includes, but is not limited to, evaluation of the patient, review of the medical record, discussions with family, consultants, nursing staff, or respiratory therapy, and documentation in the medical record. Discussed with Dr. Wen, discussed with ICU nursing staff, discussed with palliative care. Physician Aysha Raymnudo MD December 28, 2016 17:36
[2016-12-28] MEDS: FLUCONAZOLE 400 MG PREMIX BAG 200 ML IV SCH (18:00)
[2016-12-28 22:07] LABS: AUTOMATED NEUTROPHIL # 4.9 TH/MM3 (1.8-7.7); BASOPHIL % 0.7 % (0.0-2.0); EOSINOPHIL # 0.5 TH/MM3 (0-0.4); EOSINOPHIL % 6.9 % (0.0-4.0); HEMATOCRIT 22.5 % (35.0-46.0); LYMPH % 11.8 % (9.0-44.0); LYMPHOCYTE # 0.8 TH/MM3 (1.0-4.8); MEAN CELL VOLUME 85.5 FL (80.0-100.0); MEAN CORPUSCULAR HEMOGLOBIN 28.8 PG (27.0-34.0); MEAN CORPUSCULAR HGB CONC 33.6 % (32.0-36.0); MONO % 7.9 % (0.0-8.0); NEUT % 72.7 % (16.0-70.0); PLATELET COUNT 33 TH/MM3 (150-450); RED BLOOD COUNT 2.63 MIL/MM3 (4.00-5.30); RED CELL DISTRIBUTION WIDTH 19.5 % (11.6-17.2); WHITE BLOOD COUNT 6.8 TH/MM3 (4.0-11.0)
[2016-12-28 22:15] LABS: HEMO FLAGS AUTO DIFF
[2016-12-28] MEDS: CIPROFLOXACIN 400 MG PREMIX 200 ML IV SCH (22:29)
[2016-12-28 22:39] LABS: BANDS 12 % (0-6); BASOPHILS 1 % (0-2); CORRECTED NUCLEATED RBC 1 /100 WBC (0-0); EOSINOPHILS 5 % (0-4); NEUTROPHIL # MANUAL DIFF 5.4 TH/MM3 (1.8-7.7); POLYS (SEG NEUTROPHILS) 68 % (16-70); WBC DIFF SAMPLE 100
[2016-12-28 22:42] LABS: PLATELET ESTIMATE SMEAR RARE (NORMAL); PLATELET MORPHOLOGY ENLARGED (NORMAL); SCAN/DIFF FINAL DIFF MANUAL
--- NOTE | 2016-12-28 23:01 | PD.ONC.PN ---
Subjective Subjective Remarks remains obtunded/non responsive on mechanical ventilation having further complication with fungemia tarry stools drop in Hb and coagulopathic d/w rn Objective Data Date Time Temp Pulse Resp B/P Pulse Ox O2 Delivery O2 Flow Rate FiO2 12/28/16 22:36 100 30 12/28/16 20:10 98 30 12/28/16 15:44 99 30 12/28/16 14:00 72 12/28/16 13:30 73 19 80/40 99 12/28/16 13:00 75 19 81/41 99 12/28/16 12:30 74 20 78/40 99 12/28/16 12:00 77 12/28/16 12:00 98.9 75 19 78/39 99 12/28/16 12:00 30 12/28/16 11:30 75 19 76/38 98 12/28/16 11:00 76 19 76/39 99 12/28/16 10:30 78 19 76/40 98 12/28/16 10:00 91 12/28/16 10:00 79 20 81/40 98 12/28/16 09:30 79 20 77/42 98 12/28/16 09:00 80 19 77/38 98 12/28/16 08:51 99 30 12/28/16 08:30 80 19 76/38 98 12/28/16 08:23 80 18 76/39 98 12/28/16 08:00 85 12/28/16 08:00 30 12/28/16 08:00 81 17 74/39 98 12/28/16 06:00 85 12/28/16 04:00 91 12/28/16 04:00 97.4 91 21 84/42 99 12/28/16 04:00 30 12/28/16 02:00 95 12/28/16 00:40 99 30 12/28/16 00:00 100 12/28/16 00:00 30 12/28/16 00:00 100.5 100 32 89/42 97 12/28/16 12/28/16 12/28/16 07:00 15:00 23:00 Intake Total 284 ml 874 ml Output Total 400 ml 500 ml Balance -116 ml 374 ml Result Diagram: 12/28/16 2150 12/24/16 0625 Laboratory Results Laboratory Tests Test 5/4/17 12/28/16 12/28/16 12/28/16 03:35 07:49 08:27 21:50 Prothrombin Time 22.5 SEC Prothromb Time International 2.0 RATIO Ratio Fibrinogen 121 mg/dL Blood Type O POSITIVE Crossmatch Leukocyte-Reduced Red Blood Cells Blood Bank Comment White Blood Count 6.8 TH/MM3 Red Blood Count 2.63 MIL/MM3 Hemoglobin 7.6 GM/DL Hematocrit 22.5 % Mean Corpuscular Volume 85.5 FL Mean Corpuscular Hemoglobin 28.8 PG Mean Corpuscular Hemoglobin 33.6 % Concent Red Cell Distribution Width 19.5 % Platelet Count 33 TH/MM3 Mean Platelet Volume 11.8 FL Neutrophils (%) (Auto) 72.7 % Lymphocytes (%) (Auto) 11.8 % Monocytes (%) (Auto) 7.9 % Eosinophils (%) (Auto) 6.9 % Basophils (%) (Auto) 0.7 % Neutrophils # (Auto) 4.9 TH/MM3 Lymphocytes # (Auto) 0.8 TH/MM3 Monocytes # (Auto) 0.5 TH/MM3 Eosinophils # (Auto) 0.5 TH/MM3 Basophils # (Auto) 0.0 TH/MM3 CBC Comment AUTO DIFF Differential Total Cells 100 Counted Neutrophils % (Manual) 68 % Band Neutrophils % 12 % Lymphocytes % 10 % Monocytes % 4 % Eosinophils % 5 % Basophils % 1 % Neutrophils # (Manual) 5.4 TH/MM3 Nucleated Red Blood Cells 1 /100 WBC Differential Comment FINAL DIFF MANUAL Platelet Estimate RARE Platelet Morphology Comment ENLARGED Culture Results Microbiology Date/Time Procedure Status Source Growth 12/27/16 19:05 Aerobic Blood Culture - Preliminary Resulted Blood Peripheral NO GROWTH IN 1 DAY 12/27/16 19:05 Anaerobic Blood Culture - Preliminary Resulted Blood Peripheral NO GROWTH IN 1 DAY 12/27/16 19:18 Aerobic Blood Culture - Preliminary Resulted Blood Peripheral NO GROWTH IN 1 DAY 12/27/16 19:18 Anaerobic Blood Culture - Preliminary Resulted Blood Peripheral NO GROWTH IN 1 DAY Administered Medications Medications (Trade) Dose Ordered Sig/Swati Route PRN Reason Start Time Stop Time Status Last Admin Dose Admin Chlorhexidine Gluconate (Peridex 0.12% Liq) 15 ml BID@08,20 MT 11/08/16 20:00 12/28/16 22:25 IV Flush (NS Flush) 2 ml BID IV FLUSH 11/08/16 21:00 12/27/16 08:07 Ondansetron HCl (Zofran Inj) 4 mg Q6H PRN IV NAUSEA OR VOMITING 11/08/16 19:45 11/30/16 21:43 Heparin Sodium (Porcine) (Heparin Inj) 5,000 units Q12H SQ 11/08/16 20:00 Hold 11/23/16 20:02 Chlorhexidine Gluconate (Chlorhexidine 2% Cloth) Taper DAILY@04 TOP 11/09/16 04:00 11/05/17 03:59 12/28/16 04:00 Artificial Tears (Tears Naturale Opth Soln) 1 drop TID EACH EYE 11/09/16 18:00 12/28/16 13:00 Ferrous Sulfate (Ferrous Sulfate Liq) 300 mg BID PO 11/11/16 09:00 12/28/16 22:26 Epoetin Ty (Epogen Inj) 10,000 units MoWeFr SQ 11/13/16 06:00 12/27/16 08:41 Acetaminophen (Tylenol 650 Mg/ 20 ml Liq) 650 mg Q4H PRN OG-TUBE TEMP>101 11/12/16 17:00 11/21/16 04:43 Hyoscyamine Sulfate (Levsin Liq) 0.25 mg Q6H PRN PO ORAL SECRETIONS 11/30/16 16:00 12/25/16 08:54 Pantoprazole Sodium (Protonix Inj) 40 mg Q12H IV PUSH 12/15/16 11:00 12/28/16 22:25 Insulin Detemir (Levemir Inj) 10 units Q12HR SQ 12/19/16 09:00 12/28/16 09:00 Insulin Human Regular 1 1 Q6HR SQ 12/19/16 06:45 12/28/16 08:00 Dextrose (D5W 1000 ml Inj) 1,000 ml @ 30 mls/hr Q24H IV 12/23/16 09:45 12/27/16 13:20 Chlorothiazide Sodium 250 mg 250 mg Q12HR IV 12/23/16 11:00 12/28/16 21:00 Fluconazole/ Sodium Chloride 200 ml @ 100 mls/hr Q24H IV 12/27/16 18:00 12/27/16 20:28 Ciprofloxacin/ Dextrose (Cipro 400 Mg Premix) 200 ml @ 200 mls/hr Q24H IV 12/27/16 18:45 12/28/16 22:29 Objective Remarks GENERAL: critically ill SKIN: Warm and dry. LYMPHATIC: No adenopathy. CARDIOVASCULAR: Regular rate and rhythm without murmurs. RESPIRATORY: coarse sounds on mech vent GASTROINTESTINAL: Abdomen soft bs absent . EXTREMITIES: No cyanosis, edematous Assessment/Plan Assessment 86y/o female critically ill with poor prognosis following a large stroke some weeks ago. Hematology consulted for anemia secondary to GIB/acute illness with underlying coagulopathy and thrombocytopenia. Plan 1. Transfuse 1 unit of pRBC 2. INR going up. Vitamin K 5 mg po times once 3. Fibrinogen low due to DIC. will give 2 units of cryo 2. daily coags and fibrinogen in am 4. Thrombocytopenia due to critical illness/DIC 5. Respiratory failure/sepsis/multiorgan failure/fungemia/UTI. supportive care/ abx per other specialties Alfonso Alaniz MD December 28, 2016 23:01
[2016-12-29] VITALS (37 sets, daily range): BP systolic 73–88; BP diastolic 35–51; PULSE 45–69; RESP 14–21; TEMP 96–99.6; O2SAT 94–100
[2016-12-29] MEDS: CHLORHEXIDINE GLUCONATE 2 % 1 PACK (2 CLOTHS) TOP SCH (04:00)
[2016-12-29] MEDS: INSULIN NovoLIN REGULAR SUPPLEMENTAL SCALE SQ SCH ×4 (06:00→18:00)
[2016-12-29] MEDS: CHLORHEXIDINE 0.12% (ORAL KIT) 15 ML CUP MT SCH ×2 (08:00→21:06)
[2016-12-29] MEDS: ARTIFICIAL TEARS OPTH SOLN 15 ML BTL EACH EYE SCH ×3 (09:00→18:00)
[2016-12-29] MEDS: INSULIN DETEMIR 100 UNITS/ML VIAL SQ SCH ×2 (09:00→21:00)
[2016-12-29] MEDS: CHLOROTHIAZIDE SOD 500 MG VIAL IV SCH ×2 (09:00→20:59)
[2016-12-29] MEDS: FERROUS SULFATE 300 MG /5ML UDC PO SCH ×2 (09:00→20:59)
[2016-12-29 10:09] LABS: REVIEW FLAG FINAL
[2016-12-29 10:12] LABS: HEMATOCRIT 20.6 % (35.0-46.0)
--- NOTE | 2016-12-29 10:41 | HHI.NPPN ---
Subjective History of Present Illness 86 year old with CVA, Resp failure s/p Trach/ PEG Additional Remarks On the vent. Non oliguric. Poor renal function, Now has fungemia and Enterobacter KPC in urine Objective Data Data 12/28/16 12/29/16 19:00 07:00 Intake Total 874 ml 2505 ml Output Total 500 ml 850 ml Balance 374 ml 1655 ml Intake Oral 0 ml IV Total 120 ml 1034 ml Tube Feeding 288 ml 1471 ml Packed Cells 250 ml Cryoprecipitate 216 ml Output Urine Total 250 ml 850 ml Stool Total 250 ml # Bowel Movements 4 Vital Signs Date Time Temp Pulse Resp B/P Pulse Ox O2 Delivery O2 Flow Rate FiO2 12/29/16 09:00 65 16 79/44 100 12/29/16 08:35 100 30 12/29/16 08:31 57 16 73/35 100 12/29/16 08:15 69 12/29/16 08:00 58 15 79/43 99 12/29/16 08:00 30 12/29/16 07:30 59 16 83/42 100 12/29/16 07:00 59 17 76/37 99 12/29/16 06:00 64 12/29/16 04:41 98 30 12/29/16 04:00 65 12/29/16 04:00 99.0 66 18 75/36 96 12/29/16 04:00 30 12/29/16 02:00 64 12/29/16 01:24 100 30 12/29/16 00:00 30 12/29/16 00:00 61 12/29/16 00:00 99.6 64 14 86/41 98 12/28/16 22:36 100 30 12/28/16 22:00 69 12/28/16 20:10 98 30 12/28/16 20:00 30 12/28/16 20:00 99.4 69 16 88/45 96 12/28/16 20:00 69 12/28/16 15:44 99 30 12/28/16 14:00 72 12/28/16 13:30 73 19 80/40 99 12/28/16 13:00 75 19 81/41 99 12/28/16 12:30 74 20 78/40 99 12/28/16 12:00 77 12/28/16 12:00 98.9 75 19 78/39 99 12/28/16 12:00 30 12/28/16 11:30 75 19 76/38 98 12/28/16 11:00 76 19 76/39 99 -: 12/29/16 0821 Physical Exam Neck Neck Remarks s/p trach Pulmonary Resp Exam: Decreased Bases Cardiology CV Exam: Regular Gastrointestinal/Abdomen GI Exam: Soft, Non-Tender Extremeties Extremities Exam: Moderate Edema Assessment/Plan Problem List: (1) Acute renal failure Plan: Non oliguric renal failure. Demonstrates volume overload. Liver failure. Diuril ould not be given as hypotensive. On D5W at 30 ml/hour. 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 Ongoing anemia, continue to monitor. getting PRBC on regular interval no hoope of recovery agree with other consultants, she may may not survive this and her prognosis is poor BUN/cr higher as of 12/24 Low Hb low BP several PRBC Poor prognosis on Cipro/ Diflucan agree with Palliative care ethics meeting with son as futile care with hopeless situation and no chance of meaningful recovery. Patient has BRIANA and not a candidate for longterm HD. (2) Metabolic acidosis Plan: Stable, continue to monitor (3) Pneumonia Plan: On vent treated earlier with antibiotic (4) Urinary tract infection Plan: Escherichia coli she was treated (5) CVA (cerebral vascular accident) Plan: Massive stroke neurology following (6) Rhabdomyolysis Plan: This resolved (7) Hypernatremia Plan: Given 1L of DW over weekend improved Continue to monitor, repeat as necessary (8) Gastrointestinal hemorrhage Plan: Multiple PRBC given AVM poor prognosis Plan Poor prognosis. Problem Qualifiers (1) Acute renal failure: Qualified Code: N17.9 - Acute renal failure, unspecified acute renal failure type (2) CVA (cerebral vascular accident): Qualified Code: I63.9 - Cerebrovascular accident (CVA), unspecified mechanism (3) Rhabdomyolysis: Qualified Code: M62.82 - Non-traumatic rhabdomyolysis Kristel Zuniga MD December 29, 2016 10:41
[2016-12-29] MEDS ORDERED: PHYTONADIONE 5 MG TAB PO ONE (11:00)
[2016-12-29] MEDS: PANTOPRAZOLE SODIUM 40 MG VIAL IV PUSH SCH ×2 (11:00→23:00)
[2016-12-29] MEDS ORDERED: VANCOMYCIN INJ 1,000 MG in SODIUM CHLOR 0.9% 250 ML INJ 250 ML IV ONE (12:15)
--- NOTE | 2016-12-29 13:15 | PD.ONC.PN ---
Subjective Subjective Remarks acutely ill patient examined case discussed with team d/w rn Objective Data Date Time Temp Pulse Resp B/P Pulse Ox O2 Delivery O2 Flow Rate FiO2 12/29/16 10:00 59 12/29/16 09:00 65 16 79/44 100 12/29/16 08:35 100 30 12/29/16 08:31 57 16 73/35 100 12/29/16 08:15 69 12/29/16 08:00 58 15 79/43 99 12/29/16 08:00 30 12/29/16 07:30 59 16 83/42 100 12/29/16 07:00 59 17 76/37 99 12/29/16 06:00 64 12/29/16 04:41 98 30 12/29/16 04:00 65 12/29/16 04:00 99.0 66 18 75/36 96 12/29/16 04:00 30 12/29/16 02:00 64 12/29/16 01:24 100 30 12/29/16 00:00 30 12/29/16 00:00 61 12/29/16 00:00 99.6 64 14 86/41 98 12/28/16 22:36 100 30 12/28/16 22:00 69 12/28/16 20:10 98 30 12/28/16 20:00 30 12/28/16 20:00 99.4 69 16 88/45 96 12/28/16 20:00 69 12/28/16 15:44 99 30 12/28/16 14:00 72 12/28/16 13:30 73 19 80/40 99 12/29/16 12/29/16 12/29/16 07:00 15:00 23:00 Intake Total 1536 ml Output Total 350 ml Balance 1186 ml Result Diagram: 12/29/16 0821 Laboratory Results Laboratory Tests Test 12/28/16 12/29/16 12/29/16 12/29/16 21:50 08:21 10:30 10:55 White Blood Count 6.8 TH/MM3 Red Blood Count 2.63 MIL/MM3 Hemoglobin 7.6 GM/DL 6.6 GM/DL Hematocrit 22.5 % 20.6 % Mean Corpuscular Volume 85.5 FL Mean Corpuscular Hemoglobin 28.8 PG Mean Corpuscular Hemoglobin 33.6 % Concent Red Cell Distribution Width 19.5 % Platelet Count 33 TH/MM3 Mean Platelet Volume 11.8 FL Neutrophils (%) (Auto) 72.7 % Lymphocytes (%) (Auto) 11.8 % Monocytes (%) (Auto) 7.9 % Eosinophils (%) (Auto) 6.9 % Basophils (%) (Auto) 0.7 % Neutrophils # (Auto) 4.9 TH/MM3 Lymphocytes # (Auto) 0.8 TH/MM3 Monocytes # (Auto) 0.5 TH/MM3 Eosinophils # (Auto) 0.5 TH/MM3 Basophils # (Auto) 0.0 TH/MM3 CBC Comment AUTO DIFF Differential Total Cells 100 Counted Neutrophils % (Manual) 68 % Band Neutrophils % 12 % Lymphocytes % 10 % Monocytes % 4 % Eosinophils % 5 % Basophils % 1 % Neutrophils # (Manual) 5.4 TH/MM3 Nucleated Red Blood Cells 1 /100 WBC Differential Comment FINAL DIFF MANUAL Platelet Estimate RARE Platelet Morphology Comment ENLARGED Blood Bank Comment Blood Type O POSITIVE Antibody Screen POSITIVE Crossmatch Leukocyte-Reduced Red Blood Cells Culture Results Microbiology Date/Time Procedure Status Source Growth 12/27/16 19:05 Aerobic Blood Culture - Preliminary Resulted Blood Peripheral NO GROWTH IN 2 DAYS 12/27/16 19:05 Anaerobic Blood Culture - Preliminary Resulted Staph Sp Coagulase Negative 12/27/16 19:18 Aerobic Blood Culture - Preliminary Resulted Blood Peripheral NO GROWTH IN 2 DAYS 12/27/16 19:18 Anaerobic Blood Culture - Preliminary Resulted Blood Peripheral NO GROWTH IN 2 DAYS Administered Medications Medications (Trade) Dose Ordered Sig/Swati Route PRN Reason Start Time Stop Time Status Last Admin Dose Admin Chlorhexidine Gluconate (Peridex 0.12% Liq) 15 ml BID@08,20 MT 11/08/16 20:00 12/29/16 08:00 IV Flush (NS Flush) 2 ml BID IV FLUSH 11/08/16 21:00 12/27/16 08:07 Ondansetron HCl (Zofran Inj) 4 mg Q6H PRN IV NAUSEA OR VOMITING 11/08/16 19:45 11/30/16 21:43 Heparin Sodium (Porcine) (Heparin Inj) 5,000 units Q12H SQ 11/08/16 20:00 Hold 11/23/16 20:02 Chlorhexidine Gluconate (Chlorhexidine 2% Cloth) Taper DAILY@04 TOP 11/09/16 04:00 11/05/17 03:59 12/28/16 04:00 Artificial Tears (Tears Naturale Opth Soln) 1 drop TID EACH EYE 11/09/16 18:00 12/28/16 13:00 Ferrous Sulfate (Ferrous Sulfate Liq) 300 mg BID PO 11/11/16 09:00 12/29/16 09:00 Epoetin Ty (Epogen Inj) 10,000 units MoWeFr SQ 11/13/16 06:00 12/27/16 08:41 Acetaminophen (Tylenol 650 Mg/ 20 ml Liq) 650 mg Q4H PRN OG-TUBE TEMP>101 11/12/16 17:00 11/21/16 04:43 Hyoscyamine Sulfate (Levsin Liq) 0.25 mg Q6H PRN PO ORAL SECRETIONS 11/30/16 16:00 12/25/16 08:54 Pantoprazole Sodium (Protonix Inj) 40 mg Q12H IV PUSH 12/15/16 11:00 12/29/16 11:00 Insulin Detemir (Levemir Inj) 10 units Q12HR SQ 12/19/16 09:00 12/29/16 09:00 Insulin Human Regular 1 1 Q6HR SQ 12/19/16 06:45 12/29/16 12:00 Dextrose (D5W 1000 ml Inj) 1,000 ml @ 30 mls/hr Q24H IV 12/23/16 09:45 12/27/16 13:20 Chlorothiazide Sodium 250 mg 250 mg Q12HR IV 12/23/16 11:00 12/28/16 21:00 Fluconazole/ Sodium Chloride 200 ml @ 100 mls/hr Q24H IV 12/27/16 18:00 12/27/16 20:28 Ciprofloxacin/ Dextrose (Cipro 400 Mg Premix) 200 ml @ 200 mls/hr Q24H IV 12/27/16 18:45 12/28/16 22:29 Objective Remarks GENERAL: critically ill SKIN: Warm and dry. HEAD: Normocephalic. EYES: No scleral icterus. No injection or drainage. NECK: Supple, trachea midline. No JVD or lymphadenopathy. LYMPHATIC: No adenopathy. CARDIOVASCULAR: Regular rate and rhythm without murmurs. RESPIRATORY: coarse sounds on vent GASTROINTESTINAL: Abdomen soft, bs absent EXt: no cyanosis/edematous Assessment/Plan Assessment 86y/o female critically ill with poor prognosis following a large stroke some weeks ago. Hematology consulted for anemia secondary to GIB/acute illness with underlying coagulopathy and thrombocytopenia. Plan 1. Transfuse 1 unit of pRBC 2. INR going up. Vitamin K 5 mg po times once 3. Fibrinogen low due to DIC. will give 2 units of cryo 2. daily coags and fibrinogen in am 4. Thrombocytopenia due to critical illness/DIC 5. Respiratory failure/sepsis/multiorgan failure/fungemia/UTI. supportive care/ abx per other specialties Alfonso Alaniz MD December 29, 2016 13:15
[2016-12-29] MEDS: EPOETIN ALFA 10,000 UNITS/ML VIAL SQ SCH (14:30)
--- NOTE | 2016-12-29 14:35 | HHI.CCPN ---
Subjective Remarks/Hospital Course This is an 86yF with per report no other past medical history who presented to the ER after she was found unresponsive in her bed. According to ER reports, her family saw her normal last night when she had a fall, with unknown LOC. At that point, he helped her back to bed. However, this morning she did not wake up. On arrival to the ER, she was unresponsive only withdrawing to pain. she was intubated for airway protection and a poor GCS. CT head demonstrated massive posterior-circulation ischemic stroke. The patient is currently intubated and unresponsive and cannot provide any additional history. 11/09: No acute changes overnight. Palliative care team has consult with the family regarding goals of care. Currently the patient's sedation fentanyl infusion has been turned off without any response from patient. The patient notably does withdrawal to pain. 11/10: No change in neurological status. [id number]. The patient withdraws to pain 4 extremities. The patient currently on no sedation, fentanyl infusion discontinued yesterday. Tube feeds were initiated. The patient's urine culture grew back Escherichia coli, the patient was started on antibiotics. Extensive discussion with son regarding patient's neurological status, son Wyatt has had extensive discussion with palliative care.The son feels that yesterday when the patient was spoken to in [place]ian the patient squeezed his hand and desires aggressive treatment. The patient's neuro status is unchanged, totally unresponsive with occasional reflexive twitching of feet B/L. Follow-up with neurology Dr. Pack, guarding any further imaging studies. 11/13: No change in neuro exam. Palliative care following. Family wanting full aggressive care. Palliative care will address early trach PEG 11/14: No improvement in neuro status. Son has not made decisions regarding trach and PEG. Apparently he wants to wait longer to see any improvement 11/15: Remains unresponsive. Neuro exam with extensor posturing-unchanged. Son requesting aggressive care. Continues to have low-grade fever 11/16: Clinically no improvement. Tolerates CPAP. Unable to extubate as patient will not protect airway 11/17: Tolerating C Pap but no change in neuro exam. Hemoglobin noted to be 6.8 hemodynamically stable 11/18: Became tachycardic and hypotensive early a.m., placed on assist control. Otherwise neuro exam remains unchanged 11/19: Continues to spike fever Tmax 102, started on vancomycin and cefepime in addition to Levaquin yesterday. Currently only low-grade fever. Received 2 units of blood for hemoglobin of 5.3. CBC pending at this time. No improvement in neuro exam 11/20: White count is 18.3 today, MAXIMUM TEMPERATURE 103.1. Chest x-ray showing right sided infiltrate. Urine culture with gram-negative rods and Brionna albicans. ID consulted Diflucan added 11/21/16: Tmax 101.5. Bilateral lung infiltrates, R>L but slightly improved. No improvement in neuro exam. ID consulted and following. 11/22/16: No fever. CT chest- moderate to large R pleural effusion, bilateral lung infiltrates. ABX per ID. CXR today shows increasing bilateral infiltrates and effusion right more than left. Almost near complete infiltrates on the right lung [place]. Vaginally worsening creatinine today 1.45 indicating multiorgan failure 11/23/16: Hb 9.8 today after 2U PRBC yesterday. Plan for tracheostomy today. INR normal platelet count 116. Worsening creatinine today is 1.6. UO 550 ml in 24 hours. 1L NS bolus and 75 ml per hour maintenance NS. Started on Dopamine 3 mcg per min to maintain MAP>65 11/24 Patient is on ventilator via trach. Afebrile. On Dopamine 4 mics. 11/25 No acute events overnight. s/p EGD yesterday showed mild gastritis unable to place PEG tube endoscopically. Remains on Dopamine 4 mics. On no sedation unresponsive. 11/26 No acute events overnight. On CPAP with PS 20, PEEP: 5 and FIO2 40%. Afebrile. Off Dopamine. Afebrile. 11/27 Patient remains on ventilator via trach on no drips. Afebrile. For PEG tube placement by IR today. 11/28 Patient s/p PEG tube placement by IR yesterday, s/p Right thoracentesis with removal 700ml CXR showed better aeration of lungs, Hgb 6.7 this morning 2units PRBC ordered. Renal function worse with Cr: 3.40 from 2.85 . 11/29: Remains encephalopathic on mechanical ventilation via tracheostomy. 11/30: Remains encephalopathic on mechanical ventilation via tracheostomy. 12/01 Patient s/p transfusion 1unit PRBC last night for Hgb 5.8 in addition to 2L NS. Hgb 6.5 this morning. 12/02: Afebrile. The patient underwent CT-guided thoracentesis yesterday with approximately 600 cc removed. Chest x-ray pending this a.m.. Patient received packed red blood cell 2 units yesterday. Hemoglobin 7.4. Pending EGD today. 12/03:The patient underwent EGD yesterday with Dr. Farnsworth patient was noted to have a large active bleeding ulcer in the body of the stomach, multiple AVMs. Multiple ablations performed. This a.m. hemoglobin dropped to 6.1, platelet count 38. The patient was transfused 2 PRBC, and a unit of platelets. Patient still not relieved receiving any nutrition will begin PPN today. The patient continues to have copious amounts of melena with fecal incontinence apparatus in place. 12/04: The patient continues to have copious melena. PT INR drawn last evening INR was noted to be 13.5. The patient received KCentra, and current INR 1.3 the family requests aggressive measures to be continued. No further interventions from gastroenterology per . IR deemed the patient not a candidate for arteriography or endovascular treatment. 12/05: Patient's current medical status unchanged. Large tarry stools, acute blood loss anemia continues in conjunction with thrombocytopenia. During the night the nurse reported a malodorous scent was noted in free water flush container for instillation through G-tube. It was noted to be possibly fish oil , patient's son was in the room during that time. Container removed. The patient is noted to have a hemoglobin level of 5.8 today will receive 2 units of packed red blood cells and 1 unit of platelets today. 12/06: The patient continues to have copious melena. The patient received one 6 pack of platelets, and 2 units of blood yesterday. Tonight as reported by the nurse in the evening the son continue to utilize fish oil in the patient's free water, which was removed by the nurse. Ethics committee consult was initiated with Dr. Bauer yesterday, regarding assessing goals of care. 12/07: The patient's INR 1.3. Patient received 2 units of blood and one 6 pack of platelets yesterday. Awaiting ethics committee meeting with Dr. Bauer. The patient continues to require transfusions. 4/14: Patient was noted to have a drop in hemoglobin this a.m.. The patient is being transfused 2 units of PRBCs, with noted difficulty obtaining unit secondary to antibodies. Hematology will be consulted. Bioethics committee meeting planned to convene in one week, patient's son has agreed to attend. 12/09: Afebrile. No change in neuro status. Wound Care consult for left and blisters on back, orders provided. Hemoglobin stable post 2 units packed red blood cells yesterday. 12/10: The patient's hemoglobin 7.6 yesterday, hemoglobin pending for today. Overnight RN reported family member son continually putting some chemicals in the gastric tube of the patient, risk management notified. Hematology oncology has evaluated the patient, awaiting bioethics committee meeting scheduled for next week. The patient continues on PPN for nutritional support. 12/11 Patient remains on ventilator via trach on no sedation unresponsive. Afebrile.On Protonix drip and PPN. 12/12 No acute events overnight. Afebrile. Hgb 6.8 this morning 2 units PRBC ordered . 12/13 Patient remains on ventilator via trach, s/p transfusion 2units PRBC yesterday Hgb 9.1 this morning. Afebrile. On Protonix drip. 12/14 Patient s/p EGD yesterday which showed esophageal varices and hiatal hernia. On Ventilator via trach. H/H stable. On Protonix drip. 12/15 No acute events overnight. Afebrile. 12/16 Patient remains on ventilator via trach. Afebrile. 12/17 No acute events overnight. Afebrile. 12/18 Patient remains on ventilator via trach. Afebrile. Renal function continue to decline with Cr: 3.2 today from 3.0 with UO 805ml in 24 hrs. Afebrile. 12/19 No acute events overnight. Patient was given 2units Cryo and Vitamin K 5mg x1 by heme. On CPAP with FIO2 30%. Afebrile. Cr: 3.16 from 3.20 with UOP 1150ml in 24 hrs. 12/20: Neuro status remains unchanged. Had some black tarry stools reportedly. 12/21: Remains encephalopathic, on mechanical ventilation via tracheostomy. Hemoglobin dropped to 6.7 today. Has some black tarry stools. Being transfused 1 unit PRBCs. 12/22: Remains encephalopathic, on mechanical ventilation via tracheostomy. 12/23: Remains encephalopathic. On mechanical ventilation via trach. Hemoglobin 7.4 this morning. 1 unit PRBCs ordered. 12/24: Remains encephalopathic on mechanical ventilation. Transfuse 2 units PRBCs yesterday. 12/25: Remains encephalopathic on mechanical ventilation. Hemoglobin drifting down. 12/26: Remains on mechanical ventilation via tracheostomy. Being transfused 1 unit PRBCs today for drop in hemoglobin. 12/27: Remains encephalopathic, on mechanical ventilation via tracheostomy. Now has fungemia and KPC in urine. Transfused 2 units PRBCs today 12/28: Patient remains on mechanical ventilation change in mental status. ID following, Dr. Wen. 12/29: Hemoglobin was noted to be 6.6 this a.m., the patient was transfused 2 units of packed red blood cells. Posttransfusion CBC pending. Patient continues to have black tarry stools. Objective Vital Signs Date Time Temp Pulse Resp B/P Pulse Ox O2 Delivery O2 Flow Rate FiO2 12/29/16 10:00 59 12/29/16 09:00 16 79/44 100 12/29/16 08:35 30 12/29/16 04:00 99.0 Intake and Output 12/28/16 12/28/16 12/29/16 08:00 16:00 00:00 Intake Total 284 ml 874 ml 969 ml Output Total 400 ml 500 ml 500 ml Balance -116 ml 374 ml 469 ml Result Diagram: 12/29/16 0821 Imaging Last Impressions Chest X-Ray 12/15/16 0000 Signed Impressions: Service Date/Time: Thursday, December 15, 2016 10:46 - CONCLUSION: No appreciable change. Belkis Rodriguez MD Upper Extremity Ultrasound 12/14/16 0000 Signed Impressions: Service Date/Time: November 14:39 - CONCLUSION: Thrombus within the cephalic vein. Belkis Rodriguez MD Thoracentesis 12/01/16 0000 Signed Impressions: Service Date/Time: Thursday, December 01, 2016 18:56 - CONCLUSION: Uncomplicated CT-guided thoracentesis. Jeffery Alvarado MD Chest CT 12/01/16 0000 Signed Impressions: Service Date/Time: Thursday, December 01, 2016 13:09 - CONCLUSION: Bilateral pleural effusion, larger on the right than the left. Mack Cao MD FACR Abdomen/Pelvis CT 12/01/16 0000 Signed Impressions: Service Date/Time: Thursday, December 01, 2016 13:09 - CONCLUSION: 1. Right inguinal hernia containing only fluid. 2. Generalized anasarca. 3. Trace ascites. 4. Bilateral pleural effusions, larger on the right than the left. Mack Cao MD FACR Abdomen Ultrasound 11/27/16 0000 Signed Impressions: Service Date/Time: Sunday, November 27, 2016 08:35 - CONCLUSION: Stone in the neck of the gallbladder. Trace ascites and mild splenomegaly Jeffery Alvarado MD Gastrostomy Tube Placement 11/24/16 0000 Signed Impressions: Service Date/Time: Sunday, November 27, 2016 14:34 - CONCLUSION: Uncomplicated gastrostomy tube placement as above. Kirit Alcantar MD Head CT 11/08/16 1657 Signed Impressions: Service Date/Time: Tuesday, November 08, 2016 17:06 - CONCLUSION: Low density seen throughout the posterior circulation regions including the susan and midbrain, cerebellar hemispheres, occipital and posterior medial temporal lobes and right thalamus. This likely represents areas of infarction involving the posterior territory circulation. Jeffery Zhong MD Carotid Artery Ultrasound 11/08/16 0000 Signed Impressions: Service Date/Time: Tuesday, November 08, 2016 22:24 - CONCLUSION: Mild calcified plaque at the carotid bulbs. No evidence of hemodynamically significant carotid stenosis. José Luis Beltran MD Objective Remarks GENERAL: Patient is 86 yo on ventilator via trach. SKIN: Warm and dry. HEAD: Normocephalic. EYES: Pallor present, No scleral icterus. No injection or drainage. NECK: Supple, trachea midline. No JVD or lymphadenopathy. CARDIOVASCULAR: Regular rate and rhythm without murmurs, gallops, or rubs. RESPIRATORY: Breath sounds equal bilaterally. Few coarse BS. 8.0 trach in situ GASTROINTESTINAL: Abdomen soft, non-tender, nondistended. Peg MUSCULOSKELETAL: No cyanosis, peripheral 2+ edema bilateral upper extremities. Left heel gauze dressing Neuro: LIDYA. Negative cough. Negative gag. Extensor posturing in uppers. Downgoing Babinski. 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 She was last seen normal, nearly 24 hours, she was not a candidate for any interventional therapy. Unfortunately, given her age, and the extent of the stroke, her prognosis for any reasonable neurologic function is quite poor. Active GI bleed discussed with family, and patient's poor prognosis. Her family continues to express wishes for aggressive medical management. Bioethics has been consulted. Active problems: Massive posterior circulation ischemic CVA Hypoxic and hypercarbic respiratory failure Severe encephalopathy secondary to stroke Severe sepsis Fungemia Healthcare associated pneumonia with pleural effusion Acute kidney injury UTI Anemia-acute and chronic Hyperglycemia of critical illness Thrombocytopenia Active GI bleed with AVM's Plan Neuro: Monitor neuro status per ICU protocol. Remains comatose - Avoid sedatives. Neuro is following -11/08 CT brain: Low density seen throughout the posterior circulation regions including the susan and midbrain, cerebellar hemispheres, occipital and posterior medial temporal lobes and right thalamus. This likely represents areas of infarction involving the posterior territory circulation Resp: -Continue with vent support keep sat >92% Vent bundle, Head of bed 30, bronchodilators-scheduled -s/p trach 11/23, pulm toilet, trach care -SBT daily as lia. -s/p CT guided right thoracentesis 11/27 with removal 700ml clear fluid. CVS: Monitor HR and BP keep MAP>65mmhg 2-D echo -EF 5560 %, mild aortic mitral and tricuspid regurgitation, No RWMA. 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 --IR intervention-patient is not a candidate. On Protonix 40 mg IV every 12 hourly -s/p PEG tube placement by IR 11/27 , -s/p EGD 11/24 showed mild gastritis unable to place PEG tube endoscopically. -Monitor LFT's, US abdomen: Stone in neck of gall bladder, no hydronephrosis -12/01 CT abdomen/pelvis-generalized anasarca, trace ascites, bilateral pleural effusions right greater than left Continues to have recurrent GI bleeding. No further intervention planned except transfusions in view of extremely poor prognosis with no likelihood of meaningful recovery. Tube feeds as tolerated. : -Monitor renal function, I/O's, electrolytes replacement as needed. Avoid nephrotoxins -Rising BUN creatinine noted. Being followed by nephrology. Not a candidate for dialysis ID: - Resumed cefepime on 12/23 after stringer cultures for hypothermia and hypotension for suspected sepsis. Blood cultures growing Brionna para up cillosis and urine cultures with ESBL positive/KPC bacteruria -Reconsulted ID Dr. Wen. Cefepime stopped and started on Cipro and fluconazole IV on 12/27 per ID. Heme Monitor CBC. On Fe Sulfate 300mg BID s/p Vitamin K 5mg x1 and 2 units Cryo. Follow coags per Hematology Hematology is following-Dr. Alaniz. On Epogen M,W,F. Heme is following Hep Plt ab negative. Transfuse PRBCs to keep hemoglobin above 7 g percent Has used 2 units of packed cells to Endo: --SSI High scale , [id number] u Q12 Msk: --Red and sacral area, left heel wound --12/06 Wound care consulted --Specialty bed-Airflow Proph: Subcutaneous heparin on hold since 11/23 secondary to thrombocytopenia, anemia and GI bleed. SCDs for DVT prophylaxis Protonix for GI prophylaxis RUE US.Thrombus in cephalic veins Not on AC due to GI bleed , anemia requiring blood transfusion and thrombocytopenia with PLT <50 Poor prognosis. -Palliative care is following. Son wishes to continue aggressive medical care despite being informed about extremely poor prognosis with no chance of meaningful recovery. IV access: Peripheral IV's Condition critical This patient remains critically ill with one or more organ systems which are or may become a threat to life. I have spent in excess of 34 minutes discontinuously in the care and management of this patient. This time is exclusive of procedures, and includes, but is not limited to, evaluation of the patient, review of the medical record, discussions with family, consultants, nursing staff, or respiratory therapy, and documentation in the medical record. Discussed with Dr. Wen, discussed with ICU nursing staff. Physician Aysha Raymundo MD December 29, 2016 14:35
--- NOTE | 2016-12-29 14:46 | HHI.IDPN ---
Subjective Subjective Remarks doing very poorly cont to receive blood cont to have maroon colored stools remain on vent unresponsive normothermic remaines hypotensive One blood clx comes back + Antibiotics fluconazle cipro Allergies: Coded Allergies: *MDRO Multi-Drug Resistant Organism (Verified Adverse Reaction, Unknown, ) KPC (urine)-12/23/16 Objective . Vital Signs Date Time Temp Pulse Resp B/P Pulse Ox O2 Delivery O2 Flow Rate FiO2 12/29/16 10:00 59 12/29/16 09:00 65 16 79/44 100 12/29/16 08:35 100 30 12/29/16 08:31 57 16 73/35 100 12/29/16 08:15 69 12/29/16 08:00 58 15 79/43 99 12/29/16 08:00 30 12/29/16 07:30 59 16 83/42 100 12/29/16 07:00 59 17 76/37 99 12/29/16 06:00 64 12/29/16 04:41 98 30 12/29/16 04:00 65 12/29/16 04:00 99.0 66 18 75/36 96 12/29/16 04:00 30 12/29/16 02:00 64 12/29/16 01:24 100 30 12/29/16 00:00 30 12/29/16 00:00 61 12/29/16 00:00 99.6 64 14 86/41 98 12/28/16 22:36 100 30 12/28/16 22:00 69 12/28/16 20:10 98 30 12/28/16 20:00 30 12/28/16 20:00 99.4 69 16 88/45 96 12/28/16 20:00 69 12/28/16 15:44 99 30 12/28/16 12/28/16 12/29/16 15:00 23:00 07:00 Intake Total 874 ml 969 ml 1536 ml Output Total 500 ml 500 ml 350 ml Balance 374 ml 469 ml 1186 ml Intake Oral 0 ml IV Total 120 ml 384 ml 650 ml Tube Feeding 288 ml 585 ml 886 ml Packed Cells 250 ml Cryoprecipitate 216 ml Output Urine Total 250 ml 500 ml 350 ml Stool Total 250 ml # Bowel Movements 1 3 . Laboratory Tests Test 12/28/16 12/29/16 21:50 08:21 White Blood Count 6.8 TH/MM3 Red Blood Count 2.63 MIL/MM3 Hemoglobin 7.6 GM/DL 6.6 GM/DL Hematocrit 22.5 % 20.6 % Mean Corpuscular Volume 85.5 FL Mean Corpuscular Hemoglobin 28.8 PG Mean Corpuscular Hemoglobin 33.6 % Concent Red Cell Distribution Width 19.5 % Platelet Count 33 TH/MM3 Mean Platelet Volume 11.8 FL Neutrophils (%) (Auto) 72.7 % Lymphocytes (%) (Auto) 11.8 % Monocytes (%) (Auto) 7.9 % Eosinophils (%) (Auto) 6.9 % Basophils (%) (Auto) 0.7 % Neutrophils # (Auto) 4.9 TH/MM3 Lymphocytes # (Auto) 0.8 TH/MM3 Monocytes # (Auto) 0.5 TH/MM3 Eosinophils # (Auto) 0.5 TH/MM3 Basophils # (Auto) 0.0 TH/MM3 CBC Comment AUTO DIFF Differential Total Cells 100 Counted Neutrophils % (Manual) 68 % Band Neutrophils % 12 % Lymphocytes % 10 % Monocytes % 4 % Eosinophils % 5 % Basophils % 1 % Neutrophils # (Manual) 5.4 TH/MM3 Nucleated Red Blood Cells 1 /100 WBC Differential Comment FINAL DIFF MANUAL Platelet Estimate RARE Platelet Morphology Comment ENLARGED Microbiology Date/Time Procedure Status Source Growth 12/27/16 19:05 Aerobic Blood Culture - Preliminary Resulted Blood Peripheral NO GROWTH IN 2 DAYS 12/27/16 19:05 Anaerobic Blood Culture - Preliminary Resulted Staph Sp Coagulase Negative 12/27/16 19:18 Aerobic Blood Culture - Preliminary Resulted Blood Peripheral NO GROWTH IN 2 DAYS 12/27/16 19:18 Anaerobic Blood Culture - Preliminary Resulted Blood Peripheral NO GROWTH IN 2 DAYS Imaging Last Impressions Chest X-Ray 12/20/16 0000 Signed Impressions: Service Date/Time: Tuesday, December 20, 2016 02:14 - CONCLUSION: No significant interval change. Juan Miguel Alcazar MD Upper Extremity Ultrasound 12/14/16 0000 Signed Impressions: Service Date/Time: November 14:39 - CONCLUSION: Thrombus within the cephalic vein. Belkis Rodriguez MD Thoracentesis 12/01/16 0000 Signed Impressions: Service Date/Time: Thursday, December 01, 2016 18:56 - CONCLUSION: Uncomplicated CT-guided thoracentesis. Jeffery Alvarado MD Chest CT 12/01/16 0000 Signed Impressions: Service Date/Time: Thursday, December 01, 2016 13:09 - CONCLUSION: Bilateral pleural effusion, larger on the right than the left. Mack Cao MD FACR Abdomen/Pelvis CT 12/01/16 0000 Signed Impressions: Service Date/Time: Thursday, December 01, 2016 13:09 - CONCLUSION: 1. Right inguinal hernia containing only fluid. 2. Generalized anasarca. 3. Trace ascites. 4. Bilateral pleural effusions, larger on the right than the left. Mack Cao MD FACR Abdomen Ultrasound 11/27/16 0000 Signed Impressions: Service Date/Time: Sunday, November 27, 2016 08:35 - CONCLUSION: Stone in the neck of the gallbladder. Trace ascites and mild splenomegaly Jeffery Alvarado MD Gastrostomy Tube Placement 11/24/16 0000 Signed Impressions: Service Date/Time: Sunday, November 27, 2016 14:34 - CONCLUSION: Uncomplicated gastrostomy tube placement as above. Kirit Alcantar MD Head CT 11/08/16 1657 Signed Impressions: Service Date/Time: Tuesday, November 08, 2016 17:06 - CONCLUSION: Low density seen throughout the posterior circulation regions including the susan and midbrain, cerebellar hemispheres, occipital and posterior medial temporal lobes and right thalamus. This likely represents areas of infarction involving the posterior territory circulation. Jeffery Zhong MD Carotid Artery Ultrasound 11/08/16 0000 Signed Impressions: Service Date/Time: Tuesday, November 08, 2016 22:24 - CONCLUSION: Mild calcified plaque at the carotid bulbs. No evidence of hemodynamically significant carotid stenosis. José Luis Beltran MD Physical Exam CONSTIT[facility] , in no apparent distress. trach'ed , on vent TUBES/LINES/DRAINS: SKIN: + jaundice, rashes, or lesions. Skin temperature appropriate. Not diaphoretic. EYES: + scleral icterus. No injection or drainage. Fundi not examined. ENT: moist mucosae NECK: trach in place with small amount of drainage CARDIOVASCULAR: Regular rate and rhythm without murmurs, gallops, or rubs. No JVD. Peripheral pulses symmetric. RESPIRATORY/CHEST: Symmetric, unlabored respirations. Scattered rhonchi to auscultation. Breath sounds equal bilaterally. GASTROINTESTINAL: Abdomen soft, no reaction to palpation, moderately distended. No hepato-splenomegaly, or palpable masses. GENITOURINARY: Without palpable bladder distension. Tejeda catheter in place with clear yellow urine MUSCULOSKELETAL: Extremities without clubbing, cyanosis, 3-4+ soft pitting edema more prominent on BUE. No joint tenderness or effusion noted. 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
[2016-12-29] MEDS: FLUCONAZOLE 400 MG PREMIX BAG 200 ML IV SCH (18:00)
[2016-12-29] MEDS: CIPROFLOXACIN 400 MG PREMIX 200 ML IV SCH (18:45)
[2016-12-29 22:48] LABS: HEMATOCRIT 24.5 % (35.0-46.0)
[2016-12-29 22:54] LABS: REVIEW FLAG FINAL
[2016-12-30] VITALS (18 sets, daily range): BP systolic 77–89; BP diastolic 36–48; PULSE 44–92; RESP 15–30; TEMP 96–99.6; O2SAT 90–100
--- NOTE | 2016-12-30 00:24 | PD.ONC.PN ---
Subjective Subjective Remarks on ventilator support Hb dropped again today. has tarry stools getting pRBC today remians full support d/w rn Objective Data Date Time Temp Pulse Resp B/P Pulse Ox O2 Delivery O2 Flow Rate FiO2 12/30/16 00:16 100 30 12/29/16 21:00 94 30 12/29/16 18:22 51 12/29/16 17:30 52 15 79/40 98 12/29/16 17:24 99 30 12/29/16 17:00 54 16 76/42 98 12/29/16 16:30 56 16 81/44 98 12/29/16 16:00 30 12/29/16 16:00 55 20 81/43 98 12/29/16 16:00 57 12/29/16 15:01 59 16 81/39 100 12/29/16 15:01 59 16 81/39 100 12/29/16 15:00 98.7 59 17 100 12/29/16 15:00 59 17 100 12/29/16 14:31 59 16 85/39 100 12/29/16 14:00 60 17 85/42 100 12/29/16 14:00 63 12/29/16 13:30 60 16 81/39 100 12/29/16 13:00 58 19 88/41 99 12/29/16 12:30 59 15 83/40 98 12/29/16 12:01 98.3 60 21 82/40 99 12/29/16 12:00 30 12/29/16 12:00 60 15 99 12/29/16 11:31 58 16 76/39 99 12/29/16 11:00 59 17 81/51 100 12/29/16 10:30 59 16 78/39 100 12/29/16 10:01 57 16 76/38 100 12/29/16 10:00 57 16 100 12/29/16 10:00 59 12/29/16 09:30 57 16 76/37 100 12/29/16 09:00 65 16 79/44 100 12/29/16 09:00 57 16 77/38 100 12/29/16 08:35 100 30 12/29/16 08:31 57 16 73/35 100 12/29/16 08:31 57 16 73/35 100 12/29/16 08:15 69 12/29/16 08:00 58 15 79/43 99 5/5/17 08:00 30 12/29/16 08:00 58 15 79/43 99 12/29/16 07:30 59 16 83/42 100 12/29/16 07:00 59 17 76/37 99 12/29/16 06:00 64 12/29/16 04:41 98 30 12/29/16 04:00 65 12/29/16 04:00 99.0 66 18 75/36 96 12/29/16 04:00 30 12/29/16 02:00 64 12/29/16 01:24 100 30 Result Diagram: 12/29/16 2210 Laboratory Results Laboratory Tests Test 12/29/16 12/29/16 12/29/16 12/29/16 08:21 10:30 10:55 22:10 Hemoglobin 6.6 GM/DL 8.0 GM/DL Hematocrit 20.6 % 24.5 % Blood Bank Comment Blood Type O POSITIVE Antibody Screen POSITIVE Crossmatch Leukocyte-Reduced Red Blood Cells Culture Results Microbiology Date/Time Procedure Status Source Growth 12/27/16 19:05 Aerobic Blood Culture - Preliminary Resulted Blood Peripheral NO GROWTH IN 2 DAYS 12/27/16 19:05 Anaerobic Blood Culture - Preliminary Resulted Staph Sp Coagulase Negative 12/27/16 19:18 Aerobic Blood Culture - Preliminary Resulted Blood Peripheral NO GROWTH IN 2 DAYS 12/27/16 19:18 Anaerobic Blood Culture - Preliminary Resulted Blood Peripheral NO GROWTH IN 2 DAYS Administered Medications Medications (Trade) Dose Ordered Sig/Swati Route PRN Reason Start Time Stop Time Status Last Admin Dose Admin Chlorhexidine Gluconate (Peridex 0.12% Liq) 15 ml BID@08,20 MT 11/08/16 20:00 12/29/16 21:06 IV Flush (NS Flush) 2 ml BID IV FLUSH 11/08/16 21:00 12/27/16 08:07 Ondansetron HCl (Zofran Inj) 4 mg Q6H PRN IV NAUSEA OR VOMITING 11/08/16 19:45 11/30/16 21:43 Heparin Sodium (Porcine) (Heparin Inj) 5,000 units Q12H SQ 11/08/16 20:00 Hold 11/23/16 20:02 Chlorhexidine Gluconate (Chlorhexidine 2% Cloth) Taper DAILY@04 TOP 11/09/16 04:00 11/05/17 03:59 12/28/16 04:00 Artificial Tears (Tears Naturale Opth Soln) 1 drop TID EACH EYE 11/09/16 18:00 12/29/16 18:00 Ferrous Sulfate (Ferrous Sulfate Liq) 300 mg BID PO 11/11/16 09:00 12/29/16 20:59 Epoetin Ty (Epogen Inj) 10,000 units MoWeFr SQ 11/13/16 06:00 12/29/16 14:30 Acetaminophen (Tylenol 650 Mg/ 20 ml Liq) 650 mg Q4H PRN OG-TUBE TEMP>101 11/12/16 17:00 11/21/16 04:43 Hyoscyamine Sulfate (Levsin Liq) 0.25 mg Q6H PRN PO ORAL SECRETIONS 11/30/16 16:00 12/25/16 08:54 Pantoprazole Sodium (Protonix Inj) 40 mg Q12H IV PUSH 12/15/16 11:00 12/29/16 11:00 Insulin Detemir (Levemir Inj) 10 units Q12HR SQ 12/19/16 09:00 12/29/16 21:00 Insulin Human Regular 1 1 Q6HR SQ 12/19/16 06:45 12/29/16 18:00 Dextrose (D5W 1000 ml Inj) 1,000 ml @ 30 mls/hr Q24H IV 12/23/16 09:45 12/27/16 13:20 Chlorothiazide Sodium 250 mg 250 mg Q12HR IV 12/23/16 11:00 12/29/16 20:59 Fluconazole/ Sodium Chloride 200 ml @ 100 mls/hr Q24H IV 12/27/16 18:00 12/29/16 18:00 Ciprofloxacin/ Dextrose (Cipro 400 Mg Premix) 200 ml @ 200 mls/hr Q24H IV 12/27/16 18:45 12/29/16 18:45 Objective Remarks GENERAL: critically ill SKIN: Warm and dry. CARDIOVASCULAR: Regular rate and rhythm without murmurs. RESPIRATORY: coarse sounds. on vent GASTROINTESTINAL: Abdomen distended. bs absent EXTREMITIES: edematous Assessment/Plan Assessment 86y/o female critically ill with poor prognosis following a large stroke some weeks ago. Hematology consulted for anemia secondary to GIB/acute illness with underlying coagulopathy and thrombocytopenia. Plan 1. Transfuse 2 unist of pRBC 2. INR up to 2 Vitamin K 5 mg po times once. vitamin 5 sub q 3. Fibrinogen low due to DIC. will give 2 units of cryo again today 2. daily coags and fibrinogen in am 4. Thrombocytopenia due to critical illness/DIC 5. Respiratory failure/sepsis/multiorgan failure/fungemia/UTI. supportive care/ abx per other specialties 6. Poor prognosis Alfonso Alaniz MD December 30, 2016 00:24
[2016-12-30] MEDS ORDERED: PHYTONADIONE 10 MG/ML VIAL SQ ONE (00:30)
[2016-12-30 06:00] LABS: AUTOMATED NEUTROPHIL # 4.6 TH/MM3 (1.8-7.7); BASOPHIL % 0.5 % (0.0-2.0); EOSINOPHIL # 0.3 TH/MM3 (0-0.4); EOSINOPHIL % 5.7 % (0.0-4.0); HEMATOCRIT 23.5 % (35.0-46.0); LYMPH % 9.9 % (9.0-44.0); LYMPHOCYTE # 0.6 TH/MM3 (1.0-4.8); MEAN CELL VOLUME 83.6 FL (80.0-100.0); MEAN CORPUSCULAR HEMOGLOBIN 27.4 PG (27.0-34.0); MEAN CORPUSCULAR HGB CONC 32.8 % (32.0-36.0); MONO % 4.8 % (0.0-8.0); NEUT % 79.1 % (16.0-70.0); RED BLOOD COUNT 2.81 MIL/MM3 (4.00-5.30); RED CELL DISTRIBUTION WIDTH 22.9 % (11.6-17.2); WHITE BLOOD COUNT 5.9 TH/MM3 (4.0-11.0)
[2016-12-30] MEDS: INSULIN NovoLIN REGULAR SUPPLEMENTAL SCALE SQ SCH ×4 (06:00→17:56)
--- NOTE | 2016-12-30 06:04 | RADRPT ---
EXAM DATE/TIME: 12/30/2016 03:29 [facility] COMPARISON: CHEST SINGLE AP, December 20, 2016, 2:14. INDICATIONS : Shortness of breath, possible pulmonary disease. MEDICAL HISTORY : Cerebrovascular disease. SURGICAL HISTORY : None. ENCOUNTER: Subsequent ACUITY: 1 week PAIN SCORE: Non-responsive. LOCATION: Bilateral chest FINDINGS: A single view of the chest demonstrates diffuse bilateral patchy opacities. Heart enlarged. Tracheost giovani tube unchanged in position. There are some calcified mediastinal and hilar lymph nodes.. Osseous structures are intact. CONCLUSION: Slight improvement of diffuse bilateral patchy opacities. Cardiomegaly. Leonardo Yung MD on December 30, 2016 at 6:01 Board Certified Radiologist. This report was verified electronically.
[2016-12-30 06:09] LABS: INTERNATIONAL NORMALIZED RATIO 1.7 RATIO; PROTHROMBIN TIME - PATIENT 19.8 SEC (9.8-11.6)
[2016-12-30 06:14] LABS: HEMO FLAGS AUTO DIFF
[2016-12-30 06:15] LABS: PLATELET COUNT 18 TH/MM3 (150-450)
[2016-12-30 06:20] LABS: ALT (GPT) 41 U/L (10-53); ANION GAP 14 MEQ/L (5-15); AST (GOT) 127 U/L (15-37); BICARBONATE 21.3 MEQ/L (21.0-32.0); CHLORIDE 117 MEQ/L (98-107); GLOMERULAR FILTRATION RATE 13 ML/MIN (>89); MAGNESIUM 2.9 MG/DL (1.5-2.5); POTASSIUM 4.7 MEQ/L (3.5-5.1); SODIUM (NA) 152 MEQ/L (136-145)
[2016-12-30 06:22] LABS: ALKALINE PHOSPHATASE 89 U/L (45-117); TOTAL BILIRUBIN ADULT 6.2 MG/DL (0.2-1.0)
[2016-12-30 07:24] LABS: BLOOD UREA NITROGEN 165 MG/DL (7-18)
[2016-12-30] MEDS: SODIUM CHLORIDE 0.9% FLUSH 5 ML FLUSH IV FLUSH SCH ×2 (08:50→21:00)
[2016-12-30] MEDS: CHLORHEXIDINE 0.12% (ORAL KIT) 15 ML CUP MT SCH ×2 (08:50→22:45)
[2016-12-30] MEDS: ARTIFICIAL TEARS OPTH SOLN 15 ML BTL EACH EYE SCH ×3 (08:53→17:55)
[2016-12-30] MEDS: INSULIN DETEMIR 100 UNITS/ML VIAL SQ SCH ×2 (08:54→22:49)
[2016-12-30] MEDS: CHLOROTHIAZIDE SOD 500 MG VIAL IV SCH ×2 (08:54→21:00)
[2016-12-30] MEDS: FERROUS SULFATE 300 MG /5ML UDC PO SCH ×2 (08:54→22:48)
[2016-12-30 09:03] LABS: BANDS 2 % (0-6); BASOPHILS 1 % (0-2); CORRECTED NUCLEATED RBC 1 /100 WBC (0-0); EOSINOPHILS 6 % (0-4); NEUTROPHIL # MANUAL DIFF 4.7 TH/MM3 (1.8-7.7); PLATELET ESTIMATE SMEAR RARE (NORMAL); POLYS (SEG NEUTROPHILS) 78 % (16-70); WBC DIFF SAMPLE 100
[2016-12-30 09:04] LABS: PLATELET MORPHOLOGY ENLARGED (NORMAL); SCAN/DIFF FINAL DIFF MANUAL
[2016-12-30] MEDS: PANTOPRAZOLE SODIUM 40 MG VIAL IV PUSH SCH ×2 (11:50→22:49)
--- NOTE | 2016-12-30 12:18 | HHI.NPPN ---
Subjective History of Present Illness 86 year old with CVA, Resp failure s/p Trach/ PEG Additional Remarks Patient remain on the vent. and sedated, still having GI bleeding. Objective Data Data 12/29/16 12/30/16 19:00 07:00 Intake Total 1527 ml 663 ml Output Total 400 ml 700 ml Balance 1127 ml -37 ml Intake Oral 0 ml IV Total 222 ml 323 ml Tube Feeding 700 ml 340 ml Packed Cells 350 ml Cryoprecipitate 255 ml Output Urine Total 400 ml 700 ml # Bowel Movements 5 2 Vital Signs Date Time Temp Pulse Resp B/P Pulse Ox O2 Delivery O2 Flow Rate FiO2 12/30/16 12:00 70 12/30/16 12:00 97.6 70 18 77/36 99 12/30/16 12:00 30 12/30/16 10:00 66 12/30/16 10:00 100 30 12/30/16 08:00 96.6 55 17 89/48 100 12/30/16 08:00 55 12/30/16 08:00 30 12/30/16 07:17 100 30 12/30/16 04:30 100 30 12/30/16 04:00 96.2 44 15 79/38 98 12/30/16 04:00 45 12/30/16 04:00 30 12/30/16 02:00 30 12/30/16 02:00 48 12/30/16 00:16 100 30 12/30/16 00:00 96.0 45 16 83/40 97 12/30/16 00:00 30 12/30/16 00:00 96.0 44 18 83/40 96 12/30/16 00:00 48 12/29/16 22:00 45 12/29/16 21:00 94 30 12/29/16 20:00 48 12/29/16 20:00 30 12/29/16 20:00 96.0 48 15 84/47 98 12/29/16 18:22 51 12/29/16 17:30 52 15 79/40 98 12/29/16 17:24 99 30 12/29/16 17:00 54 16 76/42 98 12/29/16 16:30 56 16 81/44 98 12/29/16 16:00 30 12/29/16 16:00 55 20 81/43 98 12/29/16 16:00 57 12/29/16 15:01 59 16 81/39 100 12/29/16 15:01 59 16 81/39 100 12/29/16 15:00 98.7 59 17 100 12/29/16 15:00 59 17 100 12/29/16 14:31 59 16 85/39 100 12/29/16 14:00 60 17 85/42 100 12/29/16 14:00 63 12/29/16 13:30 60 16 81/39 100 12/29/16 13:00 58 19 88/41 99 12/29/16 12:30 59 15 83/40 98 -: 12/30/16 0508 12/30/16 0508 Physical Exam General Appearance Remarks Intubated and sedated. Eyes Eye Exam: Pupils Equal Throat Throat Exam: Oral Mucosa [place] & Moist Pulmonary Resp Exam: Crackles, Rhonchi, Decreased Bases, Diminished Breath Sounds, Poor Inspiratory Effort Cardiology CV Exam: Tachycardia Gastrointestinal/Abdomen GI Exam: Soft, Non-Tender Extremeties Extremities Exam: Moderate Edema Neurologic Neuro Exam: Sedated Assessment/Plan Problem List: (1) Acute renal failure Plan: Non oliguric renal failure. Demonstrates volume overload. Liver failure. Diuril ould not be given as hypotensive. On D5W at 30 ml/hour. 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 Ongoing anemia, continue to monitor. getting PRBC on regular interval no hoope of recovery agree with other consultants, she may may not survive this and her prognosis is poor BUN/cr higher as of 12/24 Low Hb low BP several PRBC Poor prognosis on Cipro/ Diflucan agree with Palliative care ethics meeting with son as futile care with hopeless situation and no chance of meaningful recovery. 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 Non nonoliguric, no urgent need for Dialysis. D/C Epogen , transfuse as needed. (2) Metabolic acidosis Plan: Stable, continue to monitor (3) Pneumonia Plan: On vent treated earlier with antibiotic (4) Urinary tract infection Plan: Escherichia coli she was treated (5) CVA (cerebral vascular accident) Plan: Massive stroke neurology following (6) Rhabdomyolysis Plan: This resolved (7) Hypernatremia Plan: Given 1L of DW over weekend improved Continue to monitor, repeat as necessary (8) Gastrointestinal hemorrhage Plan: Multiple PRBC given AVM poor prognosis Plan Poor prognosis. Problem Qualifiers (1) Acute renal failure: Qualified Code: N17.9 - Acute renal failure, unspecified acute renal failure type (2) CVA (cerebral vascular accident): Qualified Code: I63.9 - Cerebrovascular accident (CVA), unspecified mechanism (3) Rhabdomyolysis: Qualified Code: M62.82 - Non-traumatic rhabdomyolysis Trae Rivera MD December 30, 2016 12:17
--- NOTE | 2016-12-30 15:03 | HHI.IDPN ---
Subjective Subjective Remarks is a 86 y/o F with multiple comorbid conditions ID following for doing very poorly cont to receive blood cont to have maroon colored stools remain on vent unresponsive normothermic remaines hypotensive One blood clx comes back + Antibiotics fluconazle cipro Lines Line sites with no e/o infection. Past Medical History reviewed. Allergies: Coded Allergies: *MDRO Multi-Drug Resistant Organism (Verified Adverse Reaction, Unknown, ) KPC (urine)-12/23/16 Objective . Vital Signs Date Time Temp Pulse Resp B/P Pulse Ox O2 Delivery O2 Flow Rate FiO2 12/30/16 14:00 81 12/30/16 12:54 100 30 12/30/16 12:00 70 12/30/16 12:00 97.6 70 18 77/36 99 12/30/16 12:00 30 12/30/16 10:00 66 12/30/16 10:00 100 30 12/30/16 08:00 96.6 55 17 89/48 100 12/30/16 08:00 55 12/30/16 08:00 30 12/30/16 07:17 100 30 12/30/16 04:30 100 30 12/30/16 04:00 96.2 44 15 79/38 98 12/30/16 04:00 45 12/30/16 04:00 30 12/30/16 02:00 30 12/30/16 02:00 48 12/30/16 00:16 100 30 12/30/16 00:00 96.0 45 16 83/40 97 12/30/16 00:00 30 12/30/16 00:00 96.0 44 18 83/40 96 12/30/16 00:00 48 12/29/16 22:00 45 12/29/16 21:00 94 30 12/29/16 20:00 48 12/29/16 20:00 30 12/29/16 20:00 96.0 48 15 84/47 98 12/29/16 18:22 51 12/29/16 17:30 52 15 79/40 98 12/29/16 17:24 99 30 12/29/16 17:00 54 16 76/42 98 12/29/16 16:30 56 16 81/44 98 12/29/16 16:00 30 12/29/16 16:00 55 20 81/43 98 12/29/16 16:00 57 12/29/16 15:01 59 16 81/39 100 12/29/16 15:01 59 16 81/39 100 12/29/16 15:00 98.7 59 17 100 12/29/16 15:00 59 17 100 12/29/16 12/29/16 12/30/16 15:00 23:00 07:00 Intake Total 922 ml 828 ml 440 ml Output Total 200 ml 600 ml 300 ml Balance 722 ml 228 ml 140 ml Intake Oral 0 ml 0 ml IV Total 222 ml 223 ml 100 ml Tube Feeding 700 ml 340 ml Packed Cells 350 ml Cryoprecipitate 255 ml Output Urine Total 200 ml 600 ml 300 ml # Bowel Movements 3 4 . Laboratory Tests Test 12/28/16 12/29/16 12/29/16 12/30/16 21:50 08:21 22:10 05:08 White Blood Count 6.8 TH/MM3 5.9 TH/MM3 Red Blood Count 2.63 MIL/MM3 2.81 MIL/MM3 Hemoglobin 7.6 GM/DL 6.6 GM/DL 8.0 GM/DL 7.7 GM/DL Hematocrit 22.5 % 20.6 % 24.5 % 23.5 % Mean Corpuscular Volume 85.5 FL 83.6 FL Mean Corpuscular Hemoglobin 28.8 PG 27.4 PG Mean Corpuscular Hemoglobin 33.6 % 32.8 % Concent Red Cell Distribution Width 19.5 % 22.9 % Platelet Count 33 TH/MM3 18 TH/MM3 Mean Platelet Volume 11.8 FL 10.6 FL Neutrophils (%) (Auto) 72.7 % 79.1 % Lymphocytes (%) (Auto) 11.8 % 9.9 % Monocytes (%) (Auto) 7.9 % 4.8 % Eosinophils (%) (Auto) 6.9 % 5.7 % Basophils (%) (Auto) 0.7 % 0.5 % Neutrophils # (Auto) 4.9 TH/MM3 4.6 TH/MM3 Lymphocytes # (Auto) 0.8 TH/MM3 0.6 TH/MM3 Monocytes # (Auto) 0.5 TH/MM3 0.3 TH/MM3 Eosinophils # (Auto) 0.5 TH/MM3 0.3 TH/MM3 Basophils # (Auto) 0.0 TH/MM3 0.0 TH/MM3 CBC Comment AUTO DIFF AUTO DIFF Differential Total Cells 100 100 Counted Neutrophils % (Manual) 68 % 78 % Band Neutrophils % 12 % 2 % Lymphocytes % 10 % 9 % Monocytes % 4 % 4 % Eosinophils % 5 % 6 % Basophils % 1 % 1 % Neutrophils # (Manual) 5.4 TH/MM3 4.7 TH/MM3 Nucleated Red Blood Cells 1 /100 WBC 1 /100 WBC Differential Comment FINAL DIFF FINAL DIFF MANUAL MANUAL Platelet Estimate RARE RARE Platelet Morphology Comment ENLARGED ENLARGED Laboratory Tests Test 12/30/16 05:08 Sodium Level 152 MEQ/L Potassium Level 4.7 MEQ/L Chloride Level 117 MEQ/L Carbon Dioxide Level 21.3 MEQ/L Anion Gap 14 MEQ/L Blood Urea Nitrogen 165 MG/DL Creatinine 3.32 MG/DL Estimat Glomerular Filtration 13 ML/MIN Rate Random Glucose 253 MG/DL Calcium Level 8.3 MG/DL Phosphorus Level 8.5 MG/DL Magnesium Level 2.9 MG/DL Total Bilirubin 6.2 MG/DL Aspartate Amino Transf 127 U/L (AST/SGOT) Alanine Aminotransferase 41 U/L (ALT/SGPT) Alkaline Phosphatase 89 U/L Total Protein 4.7 GM/DL Albumin 2.1 GM/DL Microbiology Date/Time Procedure Status Source Growth 12/27/16 19:05 Aerobic Blood Culture - Preliminary Resulted Blood Peripheral NO GROWTH IN 3 DAYS 12/27/16 19:05 Anaerobic Blood Culture - Final Resulted Staphylococcus Epidermidis 12/27/16 19:18 Aerobic Blood Culture - Preliminary Resulted Blood Peripheral NO GROWTH IN 3 DAYS 12/27/16 19:18 Anaerobic Blood Culture - Preliminary Resulted Blood Peripheral NO GROWTH IN 3 DAYS Imaging Last Impressions Chest X-Ray 12/20/16 0000 Signed Impressions: Service Date/Time: Tuesday, December 20, 2016 02:14 - CONCLUSION: No significant interval change. Juan Miguel Alcazar MD Upper Extremity Ultrasound 12/14/16 0000 Signed Impressions: Service Date/Time: November 14:39 - CONCLUSION: Thrombus within the cephalic vein. KRadha Rodriguez MD Thoracentesis 12/01/16 0000 Signed Impressions: Service Date/Time: Thursday, December 01, 2016 18:56 - CONCLUSION: Uncomplicated CT-guided thoracentesis. Jeffery Alvarado MD Chest CT 12/01/16 0000 Signed Impressions: Service Date/Time: Thursday, December 01, 2016 13:09 - CONCLUSION: Bilateral pleural effusion, larger on the right than the left. Mack Cao MD FACR Abdomen/Pelvis CT 12/01/16 0000 Signed Impressions: Service Date/Time: Thursday, December 01, 2016 13:09 - CONCLUSION: 1. Right inguinal hernia containing only fluid. 2. Generalized anasarca. 3. Trace ascites. 4. Bilateral pleural effusions, larger on the right than the left. Mack Cao MD FACR Abdomen Ultrasound 11/27/16 0000 Signed Impressions: Service Date/Time: Sunday, November 27, 2016 08:35 - CONCLUSION: Stone in the neck of the gallbladder. Trace ascites and mild splenomegaly Jeffery Alvarado MD Gastrostomy Tube Placement 11/24/16 0000 Signed Impressions: Service Date/Time: Sunday, November 27, 2016 14:34 - CONCLUSION: Uncomplicated gastrostomy tube placement as above. Kirit Alcantar MD Head CT 11/08/16 1657 Signed Impressions: Service Date/Time: Tuesday, November 08, 2016 17:06 - CONCLUSION: Low density seen throughout the posterior circulation regions including the susan and midbrain, cerebellar hemispheres, occipital and posterior medial temporal lobes and right thalamus. This likely represents areas of infarction involving the posterior territory circulation. Jeffery Zhong MD Carotid Artery Ultrasound 11/08/16 0000 Signed Impressions: Service Date/Time: Tuesday, November 08, 2016 22:24 - CONCLUSION: Mild calcified plaque at the carotid bulbs. No evidence of hemodynamically significant carotid stenosis. José Luis Beltran MD Physical Exam CONSTITUTIONAL/GENERAL: on [facility] vent , in no apparent distress. trach'ed , on vent TUBES/LINES/DRAINS: SKIN: + jaundice, rashes, or lesions. Skin temperature appropriate. Not diaphoretic. EYES: + scleral icterus. No injection or drainage. Fundi not examined. ENT: moist mucosae NECK: trach in place with small amount of drainage CARDIOVASCULAR: Regular rate and rhythm without murmurs, gallops, or rubs. No JVD. Peripheral pulses symmetric. RESPIRATORY/CHEST: Symmetric, unlabored respirations. Scattered rhonchi to auscultation. Breath sounds equal bilaterally. GASTROINTESTINAL: Abdomen soft, no reaction to palpation, moderately distended. No hepato-splenomegaly, or palpable masses. GENITOURINARY: Without palpable bladder distension. Tejeda catheter in place with clear yellow urine MUSCULOSKELETAL: Extremities without clubbing, cyanosis, 3-4+ soft pitting edema more prominent on BUE. No joint tenderness or effusion noted. 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 Recs: - cont fluconazole high dose - asked micro to do sensitivity profile. dw Micro this is not a lizet auris species. - will start Abelcet if not responding to fluconazole. Currently repeat BCX negative. - rechk blood clx - cont cipro for the UTI per . milagros Cartwright: plan is to continue this regimen over the weekend per dianaw . milagros RN Will follow prn over weekend. to resume care on Sunday. If any change in clinical condition please call me sooner. Susana Quintana MD December 30, 2016 15:03 Susana Quintana MD December 30, 2016 15:03
--- NOTE | 2016-12-30 16:44 | HHI.CCPN ---
Subjective Remarks/Hospital Course This is an 86yF with per report no other past medical history who presented to the ER after she was found unresponsive in her bed. According to ER reports, her family saw her normal last night when she had a fall, with unknown LOC. At that point, he helped her back to bed. However, this morning she did not wake up. On arrival to the ER, she was unresponsive only withdrawing to pain. she was intubated for airway protection and a poor GCS. CT head demonstrated massive posterior-circulation ischemic stroke. The patient is currently intubated and unresponsive and cannot provide any additional history. 11/09: No acute changes overnight. Palliative care team has consult with the family regarding goals of care. Currently the patient's sedation fentanyl infusion has been turned off without any response from patient. The patient notably does withdrawal to pain. 11/10: No change in neurological status. [id number]. The patient withdraws to pain 4 extremities. The patient currently on no sedation, fentanyl infusion discontinued yesterday. Tube feeds were initiated. The patient's urine culture grew back Escherichia coli, the patient was started on antibiotics. Extensive discussion with son regarding patient's neurological status, son Wyatt has had extensive discussion with palliative care.The son feels that yesterday when the patient was spoken to in Persian the patient squeezed his hand and desires aggressive treatment. The patient's neuro status is unchanged, totally unresponsive with occasional reflexive twitching of feet B/L. Follow-up with neurology Dr. Pack, guarding any further imaging studies. 11/13: No change in neuro exam. Palliative care following. Family wanting full aggressive care. Palliative care will address early trach PEG 11/14: No improvement in neuro status. Son has not made decisions regarding trach and PEG. Apparently he wants to wait longer to see any improvement 11/15: Remains unresponsive. Neuro exam with extensor posturing-unchanged. Son requesting aggressive care. Continues to have low-grade fever 11/16: Clinically no improvement. Tolerates CPAP. Unable to extubate as patient will not protect airway 11/17: Tolerating C Pap but no change in neuro exam. Hemoglobin noted to be 6.8 hemodynamically stable 11/18: Became tachycardic and hypotensive early a.m., placed on assist control. Otherwise neuro exam remains unchanged 11/19: Continues to spike fever Tmax 102, started on vancomycin and cefepime in addition to Levaquin yesterday. Currently only low-grade fever. Received 2 units of blood for hemoglobin of 5.3. CBC pending at this time. No improvement in neuro exam 11/20: White count is 18.3 today, MAXIMUM TEMPERATURE 103.1. Chest x-ray showing right sided infiltrate. Urine culture with gram-negative rods and Brionna albicans. ID consulted Diflucan added 11/21/16: Tmax 101.5. Bilateral lung infiltrates, R>L but slightly improved. No improvement in neuro exam. ID consulted and following. 11/22/16: No fever. CT chest- moderate to large R pleural effusion, bilateral lung infiltrates. ABX per ID. CXR today shows increasing bilateral infiltrates and effusion right more than left. Almost near complete infiltrates on the right lung [place]. Vaginally worsening creatinine today 1.45 indicating multiorgan failure 11/23/16: Hb 9.8 today after 2U PRBC yesterday. Plan for tracheostomy today. INR normal platelet count 116. Worsening creatinine today is 1.6. UO 550 ml in 24 hours. 1L NS bolus and 75 ml per hour maintenance NS. Started on Dopamine 3 mcg per min to maintain MAP>65 11/24 Patient is on ventilator via trach. Afebrile. On Dopamine 4 mics. 11/25 No acute events overnight. s/p EGD yesterday showed mild gastritis unable to place PEG tube endoscopically. Remains on Dopamine 4 mics. On no sedation unresponsive. 11/26 No acute events overnight. On CPAP with PS 20, PEEP: 5 and FIO2 40%. Afebrile. Off Dopamine. Afebrile. 11/27 Patient remains on ventilator via trach on no drips. Afebrile. For PEG tube placement by IR today. 11/28 Patient s/p PEG tube placement by IR yesterday, s/p Right thoracentesis with removal 700ml CXR showed better aeration of lungs, Hgb 6.7 this morning 2units PRBC ordered. Renal function worse with Cr: 3.40 from 2.85 . 11/29: Remains encephalopathic on mechanical ventilation via tracheostomy. 11/30: Remains encephalopathic on mechanical ventilation via tracheostomy. 12/01 Patient s/p transfusion 1unit PRBC last night for Hgb 5.8 in addition to 2L NS. Hgb 6.5 this morning. 12/02: Afebrile. The patient underwent CT-guided thoracentesis yesterday with approximately 600 cc removed. Chest x-ray pending this a.m.. Patient received packed red blood cell 2 units yesterday. Hemoglobin 7.4. Pending EGD today. 12/03:The patient underwent EGD yesterday with Dr. Farnsworth patient was noted to have a large active bleeding ulcer in the body of the stomach, multiple AVMs. Multiple ablations performed. This a.m. hemoglobin dropped to 6.1, platelet count 38. The patient was transfused 2 PRBC, and a unit of platelets. Patient still not relieved receiving any nutrition will begin PPN today. The patient continues to have copious amounts of melena with fecal incontinence apparatus in place. 12/04: The patient continues to have copious melena. PT INR drawn last evening INR was noted to be 13.5. The patient received KCentra, and current INR 1.3 the family requests aggressive measures to be continued. No further interventions from gastroenterology per . IR deemed the patient not a candidate for arteriography or endovascular treatment. 12/05: Patient's current medical status unchanged. Large tarry stools, acute blood loss anemia continues in conjunction with thrombocytopenia. During the night the nurse reported a malodorous scent was noted in free water flush container for instillation through G-tube. It was noted to be possibly fish oil , patient's son was in the room during that time. Container removed. The patient is noted to have a hemoglobin level of 5.8 today will receive 2 units of packed red blood cells and 1 unit of platelets today. 12/06: The patient continues to have copious melena. The patient received one 6 pack of platelets, and 2 units of blood yesterday. Tonight as reported by the nurse in the evening the son continue to utilize fish oil in the patient's free water, which was removed by the nurse. Ethics committee consult was initiated with Dr. Bauer yesterday, regarding assessing goals of care. 12/07: The patient's INR 1.3. Patient received 2 units of blood and one 6 pack of platelets yesterday. Awaiting ethics committee meeting with Dr. Bauer. The patient continues to require transfusions. 4/14: Patient was noted to have a drop in hemoglobin this a.m.. The patient is being transfused 2 units of PRBCs, with noted difficulty obtaining unit secondary to antibodies. Hematology will be consulted. Bioethics committee meeting planned to convene in one week, patient's son has agreed to attend. 12/09: Afebrile. No change in neuro status. Wound Care consult for left and blisters on back, orders provided. Hemoglobin stable post 2 units packed red blood cells yesterday. 12/10: The patient's hemoglobin 7.6 yesterday, hemoglobin pending for today. Overnight RN reported family member son continually putting some chemicals in the gastric tube of the patient, risk management notified. Hematology oncology has evaluated the patient, awaiting bioethics committee meeting scheduled for next week. The patient continues on PPN for nutritional support. 12/11 Patient remains on ventilator via trach on no sedation unresponsive. Afebrile.On Protonix drip and PPN. 12/12 No acute events overnight. Afebrile. Hgb 6.8 this morning 2 units PRBC ordered . 12/13 Patient remains on ventilator via trach, s/p transfusion 2units PRBC yesterday Hgb 9.1 this morning. Afebrile. On Protonix drip. 12/14 Patient s/p EGD yesterday which showed esophageal varices and hiatal hernia. On Ventilator via trach. H/H stable. On Protonix drip. 12/15 No acute events overnight. Afebrile. 12/16 Patient remains on ventilator via trach. Afebrile. 12/17 No acute events overnight. Afebrile. 12/18 Patient remains on ventilator via trach. Afebrile. Renal function continue to decline with Cr: 3.2 today from 3.0 with UO 805ml in 24 hrs. Afebrile. 12/19 No acute events overnight. Patient was given 2units Cryo and Vitamin K 5mg x1 by heme. On CPAP with FIO2 30%. Afebrile. Cr: 3.16 from 3.20 with UOP 1150ml in 24 hrs. 12/20: Neuro status remains unchanged. Had some black tarry stools reportedly. 12/21: Remains encephalopathic, on mechanical ventilation via tracheostomy. Hemoglobin dropped to 6.7 today. Has some black tarry stools. Being transfused 1 unit PRBCs. 12/22: Remains encephalopathic, on mechanical ventilation via tracheostomy. 12/23: Remains encephalopathic. On mechanical ventilation via trach. Hemoglobin 7.4 this morning. 1 unit PRBCs ordered. 12/24: Remains encephalopathic on mechanical ventilation. Transfuse 2 units PRBCs yesterday. 12/25: Remains encephalopathic on mechanical ventilation. Hemoglobin drifting down. 12/26: Remains on mechanical ventilation via tracheostomy. Being transfused 1 unit PRBCs today for drop in hemoglobin. 12/27: Remains encephalopathic, on mechanical ventilation via tracheostomy. Now has fungemia and KPC in urine. Transfused 2 units PRBCs today 12/28: Patient remains on mechanical ventilation change in mental status. ID following, Dr. Wen. 12/29: Hemoglobin was noted to be 6.6 this a.m., the patient was transfused 2 units of packed red blood cells. Posttransfusion CBC pending. Patient continues to have black tarry stools. 12/30: Platelet count low, patient to receive 2 units of platelets and cryoprecipitate today. The patient is hypothermic requiring warming devices to maintain temperature. MAP remains in the 60s. Patient continued continues to have copious black tarry, bloody stools. Sodium level 152 today will resume D5W. Tejeda changed, peripheral IVs/ lines changed yesterday. Objective Vital Signs Date Time Temp Pulse Resp B/P Pulse Ox O2 Delivery O2 Flow Rate FiO2 12/30/16 16:20 98 30 12/30/16 16:00 86 12/30/16 16:00 99.5 24 86/41 Intake and Output 12/29/16 12/29/16 12/30/16 08:00 16:00 00:00 Intake Total 1536 ml 922 ml 828 ml Output Total 350 ml 200 ml 600 ml Balance 1186 ml 722 ml 228 ml Result Diagram: 12/30/16 0508 12/30/16 0508 Imaging Last Impressions Chest X-Ray 12/15/16 0000 Signed Impressions: Service Date/Time: Thursday, December 15, 2016 10:46 - CONCLUSION: No appreciable change. Belkis Rodriguez MD Upper Extremity Ultrasound 12/14/16 0000 Signed Impressions: Service Date/Time: November 14:39 - CONCLUSION: Thrombus within the cephalic vein. Belkis Rodriguez MD Thoracentesis 12/01/16 0000 Signed Impressions: Service Date/Time: Thursday, December 01, 2016 18:56 - CONCLUSION: Uncomplicated CT-guided thoracentesis. Jeffery Alvarado MD Chest CT 12/01/16 0000 Signed Impressions: Service Date/Time: Thursday, December 01, 2016 13:09 - CONCLUSION: Bilateral pleural effusion, larger on the right than the left. Mack Cao MD FACR Abdomen/Pelvis CT 12/01/16 0000 Signed Impressions: Service Date/Time: Thursday, December 01, 2016 13:09 - CONCLUSION: 1. Right inguinal hernia containing only fluid. 2. Generalized anasarca. 3. Trace ascites. 4. Bilateral pleural effusions, larger on the right than the left. Mack Cao MD FACR Abdomen Ultrasound 11/27/16 0000 Signed Impressions: Service Date/Time: Sunday, November 27, 2016 08:35 - CONCLUSION: Stone in the neck of the gallbladder. Trace ascites and mild splenomegaly Jeffery Alvarado MD Gastrostomy Tube Placement 11/24/16 0000 Signed Impressions: Service Date/Time: Sunday, November 27, 2016 14:34 - CONCLUSION: Uncomplicated gastrostomy tube placement as above. Kirit Alcantar MD Head CT 11/08/16 1657 Signed Impressions: Service Date/Time: Tuesday, November 08, 2016 17:06 - CONCLUSION: Low density seen throughout the posterior circulation regions including the susan and midbrain, cerebellar hemispheres, occipital and posterior medial temporal lobes and right thalamus. This likely represents areas of infarction involving the posterior territory circulation. Jeffery Zhong MD Carotid Artery Ultrasound 11/08/16 0000 Signed Impressions: Service Date/Time: Tuesday, November 08, 2016 22:24 - CONCLUSION: Mild calcified plaque at the carotid bulbs. No evidence of hemodynamically significant carotid stenosis. José Luis Beltran MD Objective Remarks GENERAL: Patient is 86 yo on ventilator via trach. SKIN: Warm and dry. HEAD: Normocephalic. EYES: Pallor present, No scleral icterus. No injection or drainage. NECK: Supple, trachea midline. No JVD or lymphadenopathy. CARDIOVASCULAR: Regular rate and rhythm without murmurs, gallops, or rubs. RESPIRATORY: Breath sounds equal bilaterally. Few coarse BS. 8.0 trach in situ GASTROINTESTINAL: Abdomen soft, non-tender, nondistended. PEG in place MUSCULOSKELETAL: No cyanosis, peripheral 2+ edema bilateral upper extremities. Left heel gauze dressing no drainage Neuro: LIDYA. Negative cough. Negative gag. Extensor posturing in uppers. Downgoing Babinski. 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 She was last seen normal, nearly 24 hours, she was not a candidate for any interventional therapy. Unfortunately, given her age, and the extent of the stroke, her prognosis for any reasonable neurologic function is quite poor. Active GI bleed discussed with family, and patient's poor prognosis. Her family continues to express wishes for aggressive medical management. Bioethics has been consulted. Active problems: Massive posterior circulation ischemic CVA Hypoxic and hypercarbic respiratory failure Severe encephalopathy secondary to stroke Severe sepsis Fungemia Healthcare associated pneumonia with pleural effusion Acute kidney injury UTI Anemia-acute and chronic Hyperglycemia of critical illness Thrombocytopenia Active GI bleed with AVM's Hypothermia DIC Plan Neuro: Monitor neuro status per ICU protocol. Remains comatose - Avoid sedatives. Neuro is following -11/08 CT brain: Low density seen throughout the posterior circulation regions including the susan and midbrain, cerebellar hemispheres, occipital and posterior medial temporal lobes and right thalamus. This likely represents areas of infarction involving the posterior territory circulation Resp: -Continue with vent support keep sat >92% Vent bundle, Head of bed 30, bronchodilators-scheduled -s/p trach 11/23, pulm toilet, trach care -SBT /CPAP trials daily as lia. -s/p CT guided right thoracentesis 11/27 with removal 700ml clear fluid. CVS: Monitor HR and BP keep MAP>65mmhg 2-D echo -EF 5560 %, mild aortic mitral and tricuspid regurgitation, No RWMA. 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 --IR intervention-patient is not a candidate. On Protonix 40 mg IV every 12 hourly -s/p PEG tube placement by IR 11/27 , -s/p EGD 11/24 showed mild gastritis unable to place PEG tube endoscopically. -Monitor LFT's, US abdomen: Stone in neck of gall bladder, no hydronephrosis -12/01 CT abdomen/pelvis-generalized anasarca, trace ascites, bilateral pleural effusions right greater than left Continues to have recurrent GI bleeding. No further intervention planned except transfusions in view of extremely poor prognosis with no likelihood of meaningful recovery. Tube feeds as tolerated. -Copious melanotic stools continue-continuing multiple transfusions : -Monitor renal function, I/O's, electrolytes replacement as needed. Avoid nephrotoxins -Rising BUN creatinine noted. Being followed by nephrology. Not a candidate for dialysis -Tejeda changed 12/29 ID: - Resumed cefepime on 12/23 after stringer cultures for hypothermia and hypotension for suspected sepsis. Blood cultures growing Brionna para up cillosis and urine cultures with ESBL positive/KPC bacteruria -Reconsulted ID Dr. Wen. Cefepime stopped and started on Cipro and fluconazole IV on 12/27 per ID. Heme Monitor CBC. On Fe Sulfate 300mg BID s/p Vitamin K 5mg x1 and 2 units Cryo. Follow coags per Hematology Hematology is following-Dr. Alaniz. On Epogen M,W,F. Heme is following Hep Plt ab negative. Transfuse PRBCs to keep hemoglobin above 7 g percent Hemoglobin 7.7, however platelets 18-transfusing 2 units of platelets, 1 unit of cryoprecipitate Endo: --SSI High scale , [id number] u Q12 Msk: --Red and sacral area, left heel wound --12/06 Wound care consulted --Specialty bed-Airflow Proph: Subcutaneous heparin on hold since 11/23 secondary to thrombocytopenia, anemia and GI bleed. SCDs for DVT prophylaxis Protonix for GI prophylaxis RUE US.Thrombus in cephalic veins Not on AC due to GI bleed , anemia requiring blood transfusion and thrombocytopenia with PLT <50 Poor prognosis. -Palliative care is following. Son wishes to continue aggressive medical care despite being informed about extremely poor prognosis with no chance of meaningful recovery. IV access: Peripheral IV's Condition critical This patient remains critically ill with one or more organ systems which are or may become a threat to life. I have spent in excess of 35 minutes discontinuously in the care and management of this patient. This time is exclusive of procedures, and includes, but is not limited to, evaluation of the patient, review of the medical record, discussions with family, consultants, nursing staff, or respiratory therapy, and documentation in the medical record. Discussed with Dr. Wen, discussed with ICU nursing staff. Physician Aysha Raymundo MD December 30, 2016 16:44
[2016-12-30] MEDS: FLUCONAZOLE 400 MG PREMIX BAG 200 ML IV SCH (17:55)
[2016-12-30] MEDS: DEXTROSE 5% IN WATE 1000ML INJ 1,000 ML IV SCH (17:55)
[2016-12-30] MEDS: CIPROFLOXACIN 400 MG PREMIX 200 ML IV SCH (17:56)
[2016-12-31] VITALS (18 sets, daily range): BP systolic 67–84; BP diastolic 30–44; PULSE 75–110; RESP 18–22; TEMP 97.8–98.9; O2SAT 95–99
[2016-12-31] MEDS: CHLORHEXIDINE GLUCONATE 2 % 1 PACK (2 CLOTHS) TOP SCH (02:58)
[2016-12-31] MEDS: INSULIN NovoLIN REGULAR SUPPLEMENTAL SCALE SQ SCH ×4 (06:00→18:00)
[2016-12-31 06:13] LABS: MEAN CORPUSCULAR HEMOGLOBIN 28.4 PG (27.0-34.0); PLATELET COUNT 41 TH/MM3 (150-450); RED BLOOD COUNT 1.66 MIL/MM3 (4.00-5.30); RED CELL DISTRIBUTION WIDTH 22.9 % (11.6-17.2); WHITE BLOOD COUNT 9.2 TH/MM3 (4.0-11.0)
[2016-12-31 06:50] LABS: REVIEW FLAG FINAL
[2016-12-31 06:52] LABS: HEMATOCRIT 14.3 % (35.0-46.0)
[2016-12-31] MEDS: INSULIN DETEMIR 100 UNITS/ML VIAL SQ SCH ×2 (08:40→21:59)
[2016-12-31] MEDS: FERROUS SULFATE 300 MG /5ML UDC PO SCH ×2 (08:41→21:59)
[2016-12-31] MEDS: SODIUM CHLORIDE 0.9% FLUSH 5 ML FLUSH IV FLUSH SCH ×2 (08:42→21:00)
[2016-12-31] MEDS: CHLOROTHIAZIDE SOD 500 MG VIAL IV SCH ×2 (08:42→21:00)
[2016-12-31] MEDS: ARTIFICIAL TEARS OPTH SOLN 15 ML BTL EACH EYE SCH ×3 (10:22→16:40)
[2016-12-31] MEDS: CHLORHEXIDINE 0.12% (ORAL KIT) 15 ML CUP MT SCH ×2 (10:23→20:00)
[2016-12-31] MEDS: DEXTROSE 5% IN WATE 1000ML INJ 1,000 ML IV SCH (10:23)
[2016-12-31] MEDS: PANTOPRAZOLE SODIUM 40 MG VIAL IV PUSH SCH (10:24)
[2016-12-31 10:42] LABS: INTERNATIONAL NORMALIZED RATIO 1.7 RATIO; PROTHROMBIN TIME - PATIENT 19.4 SEC (9.8-11.6)
--- NOTE | 2016-12-31 12:12 | HHI.NPPN ---
Subjective History of Present Illness 86 year old with CVA, Resp failure s/p Trach/ PEG Additional Remarks Patient on the vent. and sedated, still having GI bleeding, Hgb. dropped and BP is low. Objective Data Data 12/30/16 12/31/16 19:00 07:00 Intake Total 314 ml 2516 ml Output Total 100 ml 355 ml Balance 214 ml 2161 ml IV Total 981 ml Tube Feeding 264 ml 656 ml Platelets 532 ml Cryoprecipitate 227 ml Tube Irrigant 50 ml 120 ml Output Urine Total 100 ml 355 ml # Bowel Movements 2 4 Vital Signs Date Time Temp Pulse Resp B/P Pulse Ox O2 Delivery O2 Flow Rate FiO2 12/31/16 10:47 99 30 12/31/16 08:00 30 12/31/16 08:00 98.3 75 18 67/30 96 12/31/16 08:00 75 12/31/16 07:20 98 30 12/31/16 06:00 75 12/31/16 04:02 96 30 12/31/16 04:00 82 12/31/16 04:00 30 12/31/16 04:00 98.4 82 22 83/44 96 12/31/16 02:00 90 12/31/16 01:03 98 30 12/31/16 00:00 30 12/31/16 00:00 98.9 89 20 84/44 97 12/31/16 00:00 89 12/30/16 22:02 97 30 12/30/16 22:00 87 12/30/16 20:00 84 12/30/16 20:00 30 12/30/16 20:00 99.6 90 30 85/41 90 12/30/16 19:02 97 30 12/30/16 18:00 92 12/30/16 16:20 98 30 12/30/16 16:00 86 12/30/16 16:00 99.5 86 24 86/41 97 12/30/16 16:00 30 12/30/16 14:00 81 12/30/16 12:54 100 30 -: 12/31/16 0555 12/30/16 0508 Physical Exam General Appearance Remarks Intubated and sedated. Eyes Eye Exam: Pupils Equal Throat Throat Exam: Oral Mucosa [place] & Moist Pulmonary Resp Exam: Crackles, Rhonchi, Decreased Bases, Diminished Breath Sounds, Poor Inspiratory Effort Cardiology CV Exam: Tachycardia Gastrointestinal/Abdomen GI Exam: Soft, Non-Tender Extremeties Extremities Exam: Moderate Edema Neurologic Neuro Exam: Sedated Assessment/Plan Problem List: (1) Acute renal failure Plan: Non oliguric renal failure. Demonstrates volume overload. Liver failure. Diuril ould not be given as hypotensive. On D5W at 30 ml/hour. 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 Ongoing anemia, continue to monitor. getting PRBC on regular interval no hoope of recovery agree with other consultants, she may may not survive this and her prognosis is poor BUN/cr higher as of 12/24 Low Hb low BP several PRBC Poor prognosis on Cipro/ Diflucan agree with Palliative care ethics meeting with son as futile care with hopeless situation and no chance of meaningful recovery. Patient has BRIANA and not a candidate for long-term HD. Non nonoliguric, no urgent need for Dialysis. Now getting transfusion, BP is low. Prognosis is poor. (2) Metabolic acidosis Plan: Stable, continue to monitor (3) Pneumonia Plan: On vent treated earlier with antibiotic (4) Urinary tract infection Plan: Escherichia coli she was treated (5) CVA (cerebral vascular accident) Plan: Massive stroke neurology following (6) Rhabdomyolysis Plan: This resolved (7) Hypernatremia Plan: Given 1L of DW over weekend improved Continue to monitor, repeat as necessary (8) Gastrointestinal hemorrhage Plan: Multiple PRBC given AVM poor prognosis Plan Poor prognosis. Problem Qualifiers (1) Acute renal failure: Qualified Code: N17.9 - Acute renal failure, unspecified acute renal failure type (2) CVA (cerebral vascular accident): Qualified Code: I63.9 - Cerebrovascular accident (CVA), unspecified mechanism (3) Rhabdomyolysis: Qualified Code: M62.82 - Non-traumatic rhabdomyolysis Trae Rivera MD December 31, 2016 12:12
--- NOTE | 2016-12-31 14:24 | HHI.CCPN ---
Subjective Remarks/Hospital Course This is an 86yF with per report no other past medical history who presented to the ER after she was found unresponsive in her bed. According to ER reports, her family saw her normal last night when she had a fall, with unknown LOC. At that point, he helped her back to bed. However, this morning she did not wake up. On arrival to the ER, she was unresponsive only withdrawing to pain. she was intubated for airway protection and a poor GCS. CT head demonstrated massive posterior-circulation ischemic stroke. The patient is currently intubated and unresponsive and cannot provide any additional history. 11/09: No acute changes overnight. Palliative care team has consult with the family regarding goals of care. Currently the patient's sedation fentanyl infusion has been turned off without any response from patient. The patient notably does withdrawal to pain. 11/10: No change in neurological status. [id number]. The patient withdraws to pain 4 extremities. The patient currently on no sedation, fentanyl infusion discontinued yesterday. Tube feeds were initiated. The patient's urine culture grew back Escherichia coli, the patient was started on antibiotics. Extensive discussion with son regarding patient's neurological status, son Wyatt has had extensive discussion with palliative care.The son feels that yesterday when the patient was spoken to in [place] the patient squeezed his hand and desires aggressive treatment. The patient's neuro status is unchanged, totally unresponsive with occasional reflexive twitching of feet B/L. Follow-up with neurology Dr. Pack, guarding any further imaging studies. 11/13: No change in neuro exam. Palliative care following. Family wanting full aggressive care. Palliative care will address early trach PEG 11/14: No improvement in neuro status. Son has not made decisions regarding trach and PEG. Apparently he wants to wait longer to see any improvement 11/15: Remains unresponsive. Neuro exam with extensor posturing-unchanged. Son requesting aggressive care. Continues to have low-grade fever 11/16: Clinically no improvement. Tolerates CPAP. Unable to extubate as patient will not protect airway 11/17: Tolerating C Pap but no change in neuro exam. Hemoglobin noted to be 6.8 hemodynamically stable 11/18: Became tachycardic and hypotensive early a.m., placed on assist control. Otherwise neuro exam remains unchanged 11/19: Continues to spike fever Tmax 102, started on vancomycin and cefepime in addition to Levaquin yesterday. Currently only low-grade fever. Received 2 units of blood for hemoglobin of 5.3. CBC pending at this time. No improvement in neuro exam 11/20: White count is 18.3 today, MAXIMUM TEMPERATURE 103.1. Chest x-ray showing right sided infiltrate. Urine culture with gram-negative rods and Brionna albicans. ID consulted Diflucan added 11/21/16: Tmax 101.5. Bilateral lung infiltrates, R>L but slightly improved. No improvement in neuro exam. ID consulted and following. 11/22/16: No fever. CT chest- moderate to large R pleural effusion, bilateral lung infiltrates. ABX per ID. CXR today shows increasing bilateral infiltrates and effusion right more than left. Almost near complete infiltrates on the right lung [place]. Vaginally worsening creatinine today 1.45 indicating multiorgan failure 11/23/16: Hb 9.8 today after 2U PRBC yesterday. Plan for tracheostomy today. INR normal platelet count 116. Worsening creatinine today is 1.6. UO 550 ml in 24 hours. 1L NS bolus and 75 ml per hour maintenance NS. Started on Dopamine 3 mcg per min to maintain MAP>65 11/24 Patient is on ventilator via trach. Afebrile. On Dopamine 4 mics. 11/25 No acute events overnight. s/p EGD yesterday showed mild gastritis unable to place PEG tube endoscopically. Remains on Dopamine 4 mics. On no sedation unresponsive. 11/26 No acute events overnight. On CPAP with PS 20, PEEP: 5 and FIO2 40%. Afebrile. Off Dopamine. Afebrile. 11/27 Patient remains on ventilator via trach on no drips. Afebrile. For PEG tube placement by IR today. 11/28 Patient s/p PEG tube placement by IR yesterday, s/p Right thoracentesis with removal 700ml CXR showed better aeration of lungs, Hgb 6.7 this morning 2units PRBC ordered. Renal function worse with Cr: 3.40 from 2.85 . 11/29: Remains encephalopathic on mechanical ventilation via tracheostomy. 11/30: Remains encephalopathic on mechanical ventilation via tracheostomy. 12/01 Patient s/p transfusion 1unit PRBC last night for Hgb 5.8 in addition to 2L NS. Hgb 6.5 this morning. 12/02: Afebrile. The patient underwent CT-guided thoracentesis yesterday with approximately 600 cc removed. Chest x-ray pending this a.m.. Patient received packed red blood cell 2 units yesterday. Hemoglobin 7.4. Pending EGD today. 12/03:The patient underwent EGD yesterday with Dr. Farnsworth patient was noted to have a large active bleeding ulcer in the body of the stomach, multiple AVMs. Multiple ablations performed. This a.m. hemoglobin dropped to 6.1, platelet count 38. The patient was transfused 2 PRBC, and a unit of platelets. Patient still not relieved receiving any nutrition will begin PPN today. The patient continues to have copious amounts of melena with fecal incontinence apparatus in place. 12/04: The patient continues to have copious melena. PT INR drawn last evening INR was noted to be 13.5. The patient received KCentra, and current INR 1.3 the family requests aggressive measures to be continued. No further interventions from gastroenterology per . IR deemed the patient not a candidate for arteriography or endovascular treatment. 12/05: Patient's current medical status unchanged. Large tarry stools, acute blood loss anemia continues in conjunction with thrombocytopenia. During the night the nurse reported a malodorous scent was noted in free water flush container for instillation through G-tube. It was noted to be possibly fish oil , patient's son was in the room during that time. Container removed. The patient is noted to have a hemoglobin level of 5.8 today will receive 2 units of packed red blood cells and 1 unit of platelets today. 12/06: The patient continues to have copious melena. The patient received one 6 pack of platelets, and 2 units of blood yesterday. Tonight as reported by the nurse in the evening the son continue to utilize fish oil in the patient's free water, which was removed by the nurse. Ethics committee consult was initiated with Dr. Bauer yesterday, regarding assessing goals of care. 12/07: The patient's INR 1.3. Patient received 2 units of blood and one 6 pack of platelets yesterday. Awaiting ethics committee meeting with Dr. Bauer. The patient continues to require transfusions. 4/14: Patient was noted to have a drop in hemoglobin this a.m.. The patient is being transfused 2 units of PRBCs, with noted difficulty obtaining unit secondary to antibodies. Hematology will be consulted. Bioethics committee meeting planned to convene in one week, patient's son has agreed to attend. 12/09: Afebrile. No change in neuro status. Wound Care consult for left and blisters on back, orders provided. Hemoglobin stable post 2 units packed red blood cells yesterday. 12/10: The patient's hemoglobin 7.6 yesterday, hemoglobin pending for today. Overnight RN reported family member son continually putting some chemicals in the gastric tube of the patient, risk management notified. Hematology oncology has evaluated the patient, awaiting bioethics committee meeting scheduled for next week. The patient continues on PPN for nutritional support. 12/11 Patient remains on ventilator via trach on no sedation unresponsive. Afebrile.On Protonix drip and PPN. 12/12 No acute events overnight. Afebrile. Hgb 6.8 this morning 2 units PRBC ordered . 12/13 Patient remains on ventilator via trach, s/p transfusion 2units PRBC yesterday Hgb 9.1 this morning. Afebrile. On Protonix drip. 12/14 Patient s/p EGD yesterday which showed esophageal varices and hiatal hernia. On Ventilator via trach. H/H stable. On Protonix drip. 12/15 No acute events overnight. Afebrile. 12/16 Patient remains on ventilator via trach. Afebrile. 12/17 No acute events overnight. Afebrile. 12/18 Patient remains on ventilator via trach. Afebrile. Renal function continue to decline with Cr: 3.2 today from 3.0 with UO 805ml in 24 hrs. Afebrile. 12/19 No acute events overnight. Patient was given 2units Cryo and Vitamin K 5mg x1 by heme. On CPAP with FIO2 30%. Afebrile. Cr: 3.16 from 3.20 with UOP 1150ml in 24 hrs. 12/20: Neuro status remains unchanged. Had some black tarry stools reportedly. 12/21: Remains encephalopathic, on mechanical ventilation via tracheostomy. Hemoglobin dropped to 6.7 today. Has some black tarry stools. Being transfused 1 unit PRBCs. 12/22: Remains encephalopathic, on mechanical ventilation via tracheostomy. 12/23: Remains encephalopathic. On mechanical ventilation via trach. Hemoglobin 7.4 this morning. 1 unit PRBCs ordered. 12/24: Remains encephalopathic on mechanical ventilation. Transfuse 2 units PRBCs yesterday. 12/25: Remains encephalopathic on mechanical ventilation. Hemoglobin drifting down. 12/26: Remains on mechanical ventilation via tracheostomy. Being transfused 1 unit PRBCs today for drop in hemoglobin. 12/27: Remains encephalopathic, on mechanical ventilation via tracheostomy. Now has fungemia and KPC in urine. Transfused 2 units PRBCs today 12/28: Patient remains on mechanical ventilation change in mental status. ID following, Dr. Wen. 12/29: Hemoglobin was noted to be 6.6 this a.m., the patient was transfused 2 units of packed red blood cells. Posttransfusion CBC pending. Patient continues to have black tarry stools. 12/30: Platelet count low, patient to receive 2 units of platelets and cryoprecipitate today. The patient is hypothermic requiring warming devices to maintain temperature. MAP remains in the 60s. Patient continued continues to have copious black tarry, bloody stools. Sodium level 152 today will resume D5W. Tejeda changed, peripheral IVs/ lines changed yesterday. 12/31: Recent continues to be thrombocytopenic with a platelet count today of 41. Patient to receive 2 units of platelets, Hemoglobin is noted to be 4.7 will receive 3 units of packed red blood cells. INR pending. Fibrinogen level within normal limits. The patient remains encephalopathic. Objective Vital Signs Date Time Temp Pulse Resp B/P Pulse Ox O2 Delivery O2 Flow Rate FiO2 12/31/16 13:04 98 30 12/31/16 12:00 84 12/31/16 12:00 98.0 21 69/34 Intake and Output 12/30/16 12/30/16 12/31/16 08:00 16:00 00:00 Intake Total 440 ml 314 ml 1272 ml Output Total 300 ml 100 ml 230 ml Balance 140 ml 214 ml 1042 ml Result Diagram: 12/31/16 0555 12/30/16 0508 Imaging Last Impressions Chest X-Ray 12/15/16 0000 Signed Impressions: Service Date/Time: Thursday, December 15, 2016 10:46 - CONCLUSION: No appreciable change. Belkis Rodriguez MD Upper Extremity Ultrasound 12/14/16 Signed Impressions: Service Date/Time: November 14:39 - CONCLUSION: Thrombus within the cephalic vein. Belkis Rodriguez MD Thoracentesis 12/01/16 Signed Impressions: Service Date/Time: Thursday, December 01, 2016 18:56 - CONCLUSION: Uncomplicated CT-guided thoracentesis. Jeffery Alvarado MD Chest CT 12/01/16 Signed Impressions: Service Date/Time: Thursday, December 01, 2016 13:09 - CONCLUSION: Bilateral pleural effusion, larger on the right than the left. Mack Cao MD FACR Abdomen/Pelvis CT 12/01/16 Signed Impressions: Service Date/Time: Thursday, December 01, 2016 13:09 - CONCLUSION: 1. Right inguinal hernia containing only fluid. 2. Generalized anasarca. 3. Trace ascites. 4. Bilateral pleural effusions, larger on the right than the left. Mack Cao MD FACR Abdomen Ultrasound 11/27/16 Signed Impressions: Service Date/Time: Sunday, November 27, 2016 08:35 - CONCLUSION: Stone in the neck of the gallbladder. Trace ascites and mild splenomegaly Jeffery Alvarado MD Gastrostomy Tube Placement 11/24/16 Signed Impressions: Service Date/Time: Sunday, November 27, 2016 14:34 - CONCLUSION: Uncomplicated gastrostomy tube placement as above. Kirit Alcantar MD Head CT 11/08/16 1657 Signed Impressions: Service Date/Time: Tuesday, November 08, 2016 17:06 - CONCLUSION: Low density seen throughout the posterior circulation regions including the susan and midbrain, cerebellar hemispheres, occipital and posterior medial temporal lobes and right thalamus. This likely represents areas of infarction involving the posterior territory circulation. Jeffery Zhong MD Carotid Artery Ultrasound 11/08/16 Signed Impressions: Service Date/Time: Tuesday, November 08, 2016 22:24 - CONCLUSION: Mild calcified plaque at the carotid bulbs. No evidence of hemodynamically significant carotid stenosis. José Luis Beltran MD Objective Remarks GENERAL: Patient is 86 yo on ventilator via trach. SKIN: Warm and dry. HEAD: Normocephalic. EYES: Pallor present, No scleral icterus. No injection or drainage. NECK: Supple, trachea midline. No JVD or lymphadenopathy. CARDIOVASCULAR: Regular rate and rhythm without murmurs, gallops, or rubs. RESPIRATORY: Breath sounds equal bilaterally. Mild expiratory wheeze. 8.0 trach in situ GASTROINTESTINAL: Abdomen soft, non-tender, nondistended. PEG tube in situ MUSCULOSKELETAL: No cyanosis, peripheral 2+ edema bilateral upper extremities. Neuro: GCS 3T LIDYA. Negative cough. Negative gag. Extensor posturing in uppers. Downgoing Babinski. 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 She was last seen normal, nearly 24 hours, she was not a candidate for any interventional therapy. Unfortunately, given her age, and the extent of the stroke, her prognosis for any reasonable neurologic function is quite poor. Active GI bleed discussed with family, and patient's poor prognosis. Her family continues to express wishes for aggressive medical management. Bioethics has been consulted. Active problems: Massive posterior circulation ischemic CVA Hypoxic and hypercarbic respiratory failure Severe encephalopathy secondary to stroke Severe sepsis Fungemia Healthcare associated pneumonia with pleural effusion Acute kidney injury UTI Anemia-acute and chronic Hyperglycemia of critical illness Thrombocytopenia Active GI bleed with AVM's Hypothermia DIC Plan Neuro: Monitor neuro status per ICU protocol. Remains comatose - Avoid sedatives. Neuro is following -11/08 CT brain: Low density seen throughout the posterior circulation regions including the susan and midbrain, cerebellar hemispheres, occipital and posterior medial temporal lobes and right thalamus. This likely represents areas of infarction involving the posterior territory circulation Resp: -Continue with vent support keep sat >92% Vent bundle, Head of bed 30, bronchodilators-scheduled -s/p trach 11/23, pulm toilet, trach care -SBT /CPAP trials daily as lia. -s/p CT guided right thoracentesis 11/27 with removal 700ml clear fluid. CVS: Monitor HR and BP keep MAP>65mmhg 2-D echo -EF 5560 %, mild aortic mitral and tricuspid regurgitation, No RWMA. 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 --IR intervention-patient is not a candidate. On Protonix 40 mg IV every 12 hourly -s/p PEG tube placement by IR 11/27 , -s/p EGD 11/24 showed mild gastritis unable to place PEG tube endoscopically. -Monitor LFT's, US abdomen: Stone in neck of gall bladder, no hydronephrosis -12/01 CT abdomen/pelvis-generalized anasarca, trace ascites, bilateral pleural effusions right greater than left Continues to have recurrent GI bleeding. No further intervention planned except transfusions in view of extremely poor prognosis with no likelihood of meaningful recovery. Tube feeds as tolerated. -Copious melanotic stools continue-continuing multiple transfusions : -Monitor renal function, I/O's, electrolytes replacement as needed. Avoid nephrotoxins -Rising BUN creatinine noted. Being followed by nephrology. Not a candidate for dialysis -Tejeda changed 12/29 ID: - Resumed cefepime on 12/23 after stringer cultures for hypothermia and hypotension for suspected sepsis. Blood cultures growing Brionna para up cillosis and urine cultures with ESBL positive/KPC bacteruria -Reconsulted ID Dr. Wen. Cefepime stopped and started on Cipro and fluconazole IV on 12/27 per ID. -Tejeda replaced 12/28 Heme Monitor CBC. On Fe Sulfate 300mg BID s/p Vitamin K 5mg x1 and 2 units Cryo. Follow coags per Hematology Hematology is following-Dr. Alaniz. On Epogen M,W,F. Heme is following Hep Plt ab negative. Transfuse PRBCs to keep hemoglobin above 7 g percent Severe anemia, thrombocytopeniablood and platelets infusing. Fibrinogen level 213 Endo: --SSI High scale , [id number] u Q12 Msk: --Red and sacral area, left heel wound --12/06 Wound care consulted --Specialty bed-Airflow Proph: Subcutaneous heparin on hold since 11/23 secondary to thrombocytopenia, anemia and GI bleed. SCDs for DVT prophylaxis Protonix for GI prophylaxis RUE US.Thrombus in cephalic veins Not on AC due to GI bleed , anemia requiring blood transfusion and thrombocytopenia with PLT <50 Poor prognosis. -Palliative care is following. Son wishes to continue aggressive medical care despite being informed about extremely poor prognosis with no chance of meaningful recovery. IV access: Peripheral IV's replaced 5/4 Condition critical This patient remains critically ill with one or more organ systems which are or may become a threat to life. I have spent in excess of 35 minutes discontinuously in the care and management of this patient. This time is exclusive of procedures, and includes, but is not limited to, evaluation of the patient, review of the medical record, discussions with family, consultants, nursing staff, or respiratory therapy, and documentation in the medical record. Discussed with Dr. Wen, discussed with ICU nursing staff. Physician Aysha Raymundo MD December 31, 2016 14:24
[2016-12-31] MEDS: FLUCONAZOLE 400 MG PREMIX BAG 200 ML IV SCH (16:40)
[2016-12-31] MEDS: CIPROFLOXACIN 400 MG PREMIX 200 ML IV SCH (18:04)
[2016-12-31 19:31] LABS: HEMATOCRIT 23.6 % (35.0-46.0); PLATELET COUNT 35 TH/MM3 (150-450)
[2016-12-31 19:32] LABS: REVIEW FLAG FINAL
[2017-01-01] VITALS (18 sets, daily range): BP systolic 64–85; BP diastolic 30–42; PULSE 55–77; RESP 15–19; TEMP 94.5–98.4; O2SAT 94–100
[2017-01-01] MEDS: CHLORHEXIDINE GLUCONATE 2 % 1 PACK (2 CLOTHS) TOP SCH (01:42)
[2017-01-01] MEDS: PANTOPRAZOLE SODIUM 40 MG VIAL IV PUSH SCH ×3 (01:42→22:52)
[2017-01-01] MEDS: INSULIN NovoLIN REGULAR SUPPLEMENTAL SCALE SQ SCH ×4 (06:00→17:39)
[2017-01-01] MEDS: RESP: ALBUTEROL 2.5 MG/IPRATROPIUM 0.5 MG NEB (PRN) INH (07:42)
[2017-01-01] MEDS: SODIUM CHLORIDE 0.9% FLUSH 5 ML FLUSH IV FLUSH SCH ×2 (09:00→21:00)
[2017-01-01] MEDS: INSULIN DETEMIR 100 UNITS/ML VIAL SQ SCH ×2 (09:00→22:52)
[2017-01-01] MEDS: CHLOROTHIAZIDE SOD 500 MG VIAL IV SCH ×2 (09:15→22:52)
[2017-01-01] MEDS: ARTIFICIAL TEARS OPTH SOLN 15 ML BTL EACH EYE SCH ×3 (09:15→17:40)
[2017-01-01] MEDS: FERROUS SULFATE 300 MG /5ML UDC PO SCH ×2 (09:15→22:51)
[2017-01-01] MEDS: CHLORHEXIDINE 0.12% (ORAL KIT) 15 ML CUP MT SCH ×2 (09:16→22:53)
[2017-01-01] MEDS: DEXTROSE 5% IN WATE 1000ML INJ 1,000 ML IV SCH (09:16)
[2017-01-01 10:30] LABS: AUTOMATED NEUTROPHIL # 11.8 TH/MM3 (1.8-7.7); BASOPHIL % 0.1 % (0.0-2.0); EOSINOPHIL # 0.2 TH/MM3 (0-0.4); EOSINOPHIL % 1.3 % (0.0-4.0); LYMPH % 8.7 % (9.0-44.0); LYMPHOCYTE # 1.3 TH/MM3 (1.0-4.8); MEAN CELL VOLUME 93.5 FL (80.0-100.0); NEUT % 79.9 % (16.0-70.0); PLATELET COUNT 32 TH/MM3 (150-450); RED BLOOD COUNT 2.16 MIL/MM3 (4.00-5.30); RED CELL DISTRIBUTION WIDTH 19.9 % (11.6-17.2); WHITE BLOOD COUNT 14.8 TH/MM3 (4.0-11.0)
[2017-01-01 10:34] LABS: HEMO FLAGS AUTO DIFF
[2017-01-01 10:36] LABS: HEMATOCRIT 20.2 % (35.0-46.0)
[2017-01-01 10:38] LABS: INTERNATIONAL NORMALIZED RATIO 1.9 RATIO; PROTHROMBIN TIME - PATIENT 21.2 SEC (9.8-11.6)
[2017-01-01] MEDS ORDERED: PHYTONADIONE INJ 10 MG in SODIUM CHLORIDE 0.9% INJ 50 ML IV ONE (11:00)
[2017-01-01 11:13] LABS: BANDS 12 % (0-6); CORRECTED NUCLEATED RBC 1 /100 WBC (0-0); EOSINOPHILS 3 % (0-4); POLYCHROMASIA 2.9 % (0.0-1.9); POLYS (SEG NEUTROPHILS) 76 % (16-70); WBC DIFF SAMPLE 100
[2017-01-01 11:14] LABS: OVALOCYTES 1+ (NORMAL); PLATELET ESTIMATE SMEAR LOW (NORMAL); PLATELET MORPHOLOGY NORMAL (NORMAL); SCAN/DIFF FINAL DIFF MANUAL
--- NOTE | 2017-01-01 14:20 | HHI.IDPN ---
Subjective Subjective Remarks remains critical and bleeding profusely both rectally and via gastric tube Hypothermic again Hypotensive Staph epi in 08/30 clx Antibiotics fluconazle cipro Lines Line sites with no e/o infection. Past Medical History reviewed. Allergies: Coded Allergies: *MDRO Multi-Drug Resistant Organism (Verified Adverse Reaction, Unknown, ) KPC (urine)-12/23/16 Objective . Vital Signs Date Time Temp Pulse Resp B/P Pulse Ox O2 Delivery O2 Flow Rate FiO2 01/01/17 12:34 98 30 01/01/17 12:00 77 01/01/17 12:00 97.6 77 18 70/31 98 01/01/17 12:00 30 01/01/17 10:00 70 01/01/17 08:00 30 01/01/17 08:00 69 01/01/17 08:00 94.5 69 18 72/34 94 01/01/17 07:43 97 30 01/01/17 06:00 72 01/01/17 04:54 100 30 01/01/17 04:30 71 15 67/32 96 01/01/17 04:00 30 01/01/17 04:00 71 01/01/17 04:00 71 15 64/30 95 01/01/17 02:09 97 30 01/01/17 02:00 73 01/01/17 00:00 30 01/01/17 00:00 74 01/01/17 00:00 98.4 74 16 69/32 96 12/31/16 22:00 108 12/31/16 20:00 30 12/31/16 20:00 110 12/31/16 20:00 98.6 110 18 77/41 96 12/31/16 19:20 95 30 12/31/16 18:00 82 12/31/16 16:00 85 12/31/16 16:00 97.8 85 21 74/36 97 12/31/16 16:00 30 12/31/16 15:59 97 30 12/31/16 12/31/16 01/01/17 15:00 23:00 07:00 Intake Total 2317 ml 797 ml 309 ml Output Total 50 ml 1120 ml 99 ml Balance 2267 ml -323 ml 210 ml IV Total 190 ml 517 ml 249 ml Tube Feeding 386 ml 220 ml Packed Cells 1031 ml Platelets 660 ml Tube Irrigant 50 ml 60 ml 60 ml Output Urine Total 50 ml 120 ml 99 ml Gastric Drainage Total 1000 ml # Bowel Movements 2 2 2 . Laboratory Tests Test 12/31/16 12/31/16 01/01/17 05:55 19:05 10:00 White Blood Count 9.2 TH/MM3 14.8 TH/MM3 Red Blood Count 1.66 MIL/MM3 2.16 MIL/MM3 Hemoglobin 4.7 GM/DL 7.8 GM/DL 6.3 GM/DL Hematocrit 14.3 % 23.6 % 20.2 % Mean Corpuscular Volume 86.0 FL 93.5 FL Mean Corpuscular Hemoglobin 28.4 PG 29.0 PG Mean Corpuscular Hemoglobin 33.0 % 31.0 % Concent Red Cell Distribution Width 22.9 % 19.9 % Platelet Count 41 TH/MM3 35 TH/MM3 32 TH/MM3 Mean Platelet Volume 11.9 FL 12.5 FL Neutrophils (%) (Auto) 79.9 % Lymphocytes (%) (Auto) 8.7 % Monocytes (%) (Auto) 10.0 % Eosinophils (%) (Auto) 1.3 % Basophils (%) (Auto) 0.1 % Neutrophils # (Auto) 11.8 TH/MM3 Lymphocytes # (Auto) 1.3 TH/MM3 Monocytes # (Auto) 1.5 TH/MM3 Eosinophils # (Auto) 0.2 TH/MM3 Basophils # (Auto) 0.0 TH/MM3 CBC Comment AUTO DIFF Differential Total Cells 100 Counted Neutrophils % (Manual) 76 % Band Neutrophils % 12 % Lymphocytes % 3 % Monocytes % 6 % Eosinophils % 3 % Neutrophils # (Manual) 13.0 TH/MM3 Nucleated Red Blood Cells 1 /100 WBC Differential Comment FINAL DIFF MANUAL Platelet Estimate LOW Platelet Morphology Comment NORMAL Polychromasia 2.9 % Ovalocytes 1+ Imaging Last Impressions Chest X-Ray 12/30/16 0600 Signed Impressions: Service Date/Time: Friday, December 30, 2016 03:29 - CONCLUSION: Slight improvement of diffuse bilateral patchy opacities. Cardiomegaly. Leonardo Yung MD Upper Extremity Ultrasound 12/14/16 0000 Signed Impressions: Service Date/Time: November 14:39 - CONCLUSION: Thrombus within the cephalic vein. Belkis Rodriguez MD Thoracentesis 12/01/16 0000 Signed Impressions: Service Date/Time: Thursday, December 01, 2016 18:56 - CONCLUSION: Uncomplicated CT-guided thoracentesis. Jeffery Alvarado MD Chest CT 12/01/16 0000 Signed Impressions: Service Date/Time: Thursday, December 01, 2016 13:09 - CONCLUSION: Bilateral pleural effusion, larger on the right than the left. Mack Cao MD FACR Abdomen/Pelvis CT 12/01/16 0000 Signed Impressions: Service Date/Time: Thursday, December 01, 2016 13:09 - CONCLUSION: 1. Right inguinal hernia containing only fluid. 2. Generalized anasarca. 3. Trace ascites. 4. Bilateral pleural effusions, larger on the right than the left. aMck Cao MD FACR Abdomen Ultrasound 11/27/16 0000 Signed Impressions: Service Date/Time: Sunday, November 27, 2016 08:35 - CONCLUSION: Stone in the neck of the gallbladder. Trace ascites and mild splenomegaly Jeffery Alvarado MD Gastrostomy Tube Placement 11/24/16 0000 Signed Impressions: Service Date/Time: Sunday, November 27, 2016 14:34 - CONCLUSION: Uncomplicated gastrostomy tube placement as above. Kirit Alcantar MD Head CT 11/08/16 1657 Signed Impressions: Service Date/Time: Tuesday, November 08, 2016 17:06 - CONCLUSION: Low density seen throughout the posterior circulation regions including the susan and midbrain, cerebellar hemispheres, occipital and posterior medial temporal lobes and right thalamus. This likely represents areas of infarction involving the posterior territory circulation. Jeffery Zhong MD Carotid Artery Ultrasound 11/08/16 0000 Signed Impressions: Service Date/Time: Tuesday, November 08, 2016 22:24 - CONCLUSION: Mild calcified plaque at the carotid bulbs. No evidence of hemodynamically significant carotid stenosis. José Luis Beltran MD Physical Exam CONSTITUTIONAL/GENERAL: on [facility] vent , in no apparent distress. trach'ed , on vent TUBES/LINES/DRAINS: SKIN: + jaundice, rashes, or lesions. Skin temperature appropriate. Not diaphoretic. EYES: + scleral icterus. No injection or drainage. Fundi not examined. ENT: moist mucosae NECK: trach in place with small amount of drainage CARDIOVASCULAR: Regular rate and rhythm without murmurs, gallops, or rubs. No JVD. Peripheral pulses symmetric. RESPIRATORY/CHEST: Symmetric, unlabored respirations. Scattered rhonchi to auscultation. Breath sounds equal bilaterally. GASTROINTESTINAL: Abdomen soft, no reaction to palpation, moderately distended. No hepato-splenomegaly, or palpable masses. GENITOURINARY: Without palpable bladder distension. Tejeda catheter in place with clear yellow urine MUSCULOSKELETAL: Extremities without clubbing, cyanosis, 3-4+ soft pitting edema more prominent on BUE. No joint tenderness or effusion noted. 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 Recs: - cont fluconazole high dose - asked micro to do sensitivity profile, P - will start Abelcet if not responding to fluconazole. - repeat BCX - cont cipro for the UTI - will not redose vancomycin milagros Cartwright: Shani Gallo RN, MD January 01, 2017 14:20
--- NOTE | 2017-01-01 14:57 | HHI.NPPN ---
Subjective History of Present Illness 86 year old with CVA, Resp failure s/p Trach/ PEG Additional Remarks Patient on the vent. and sedated, still having GI bleeding, Hgb. dropped and BP is low. Objective Data Data 12/31/16 01/01/17 19:00 07:00 Intake Total 2317 ml 1106 ml Output Total 50 ml 1219 ml Balance 2267 ml -113 ml IV Total 190 ml 766 ml Tube Feeding 386 ml 220 ml Packed Cells 1031 ml Platelets 660 ml Tube Irrigant 50 ml 120 ml Output Urine Total 50 ml 219 ml Gastric Drainage Total 1000 ml # Bowel Movements 2 4 Vital Signs Date Time Temp Pulse Resp B/P Pulse Ox O2 Delivery O2 Flow Rate FiO2 01/01/17 14:00 58 01/01/17 12:34 98 30 01/01/17 12:00 77 01/01/17 12:00 97.6 77 18 70/31 98 01/01/17 12:00 30 01/01/17 10:00 70 01/01/17 08:00 30 01/01/17 08:00 69 01/01/17 08:00 94.5 69 18 72/34 94 01/01/17 07:43 97 30 01/01/17 06:00 72 01/01/17 04:54 100 30 01/01/17 04:30 71 15 67/32 96 01/01/17 04:00 30 01/01/17 04:00 71 01/01/17 04:00 71 15 64/30 95 01/01/17 02:09 97 30 01/01/17 02:00 73 01/01/17 00:00 30 01/01/17 00:00 74 01/01/17 00:00 98.4 74 16 69/32 96 12/31/16 22:00 108 12/31/16 20:00 30 12/31/16 20:00 110 12/31/16 20:00 98.6 110 18 77/41 96 12/31/16 19:20 95 30 12/31/16 18:00 82 12/31/16 16:00 85 12/31/16 16:00 97.8 85 21 74/36 97 12/31/16 16:00 30 12/31/16 15:59 97 30 -: 01/01/17 1000 12/30/16 0508 Physical Exam Eyes Eye Exam: Pupils Equal Throat Throat Exam: Oral Mucosa [place] & Moist Neck Neck Remarks s/p trach Pulmonary Resp Exam: Crackles, Rhonchi, Decreased Bases, Diminished Breath Sounds, Poor Inspiratory Effort Cardiology CV Exam: Tachycardia Gastrointestinal/Abdomen GI Exam: Soft, Non-Tender Extremeties Extremities Exam: Moderate Edema Neurologic Neuro Exam: Sedated Assessment/Plan Problem List: (1) Acute renal failure Plan: Non oliguric renal failure. Demonstrates volume overload. Liver failure. Diuril hypotensive. On D5W at 30 ml/hour. 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 Ongoing anemia, continue to monitor. getting PRBC on regular interval no hope of recovery agree with other consultants, she may not survive this and her prognosis is poor BUN/cr higher as of 5/6 Low Hb low BP several PRBC Poor prognosis on Cipro/ Diflucan UOP poor on multiorgan failure SBP 71 about to code poor survival agree with Palliative care ethics meeting with son as futile care with hopeless situation and no chance of meaningful recovery. Patient has BRIANA and not a candidate for [facility] HD. poor UOP with BP crashing is imminent Now getting transfusion, BP is low. Prognosis is poor. (2) Metabolic acidosis Plan: Stable, continue to monitor (3) Pneumonia Plan: On vent treated earlier with antibiotic (4) Urinary tract infection Plan: Escherichia coli she was treated (5) CVA (cerebral vascular accident) Plan: Massive stroke neurology following (6) Rhabdomyolysis Plan: This resolved (7) Hypernatremia Plan: Continue to monitor, repeat as necessary (8) Gastrointestinal hemorrhage Plan: Multiple PRBC given AVM poor prognosis Plan Poor prognosis. Problem Qualifiers (1) Acute renal failure: Qualified Code: N17.9 - Acute renal failure, unspecified acute renal failure type (2) CVA (cerebral vascular accident): Qualified Code: I63.9 - Cerebrovascular accident (CVA), unspecified mechanism (3) Rhabdomyolysis: Qualified Code: M62.82 - Non-traumatic rhabdomyolysis Kristel Zuniga MD January 01, 2017 14:57
[2017-01-01] MEDS ORDERED: TERBUTALINE INJ 1 MG/ML AMP SQ PRN (17:15)
[2017-01-01] MEDS: FLUCONAZOLE 400 MG PREMIX BAG 200 ML IV SCH (17:39)
[2017-01-01] MEDS: PHENYLEPHRINE 40 MG/D5W 496 ML ADMIX IV SCH ×2 (17:39)
[2017-01-01] MEDS: CIPROFLOXACIN 400 MG PREMIX 200 ML IV SCH (17:39)
--- NOTE | 2017-01-01 19:21 | HHI.CCPN ---
Subjective Remarks/Hospital Course This is an 86yF with per report no other past medical history who presented to the ER after she was found unresponsive in her bed. According to ER reports, her family saw her normal last night when she had a fall, with unknown LOC. At that point, he helped her back to bed. However, this morning she did not wake up. On arrival to the ER, she was unresponsive only withdrawing to pain. she was intubated for airway protection and a poor GCS. CT head demonstrated massive posterior-circulation ischemic stroke. The patient is currently intubated and unresponsive and cannot provide any additional history. 11/09: No acute changes overnight. Palliative care team has consult with the family regarding goals of care. Currently the patient's sedation fentanyl infusion has been turned off without any response from patient. The patient notably does withdrawal to pain. 11/10: No change in neurological status. [id number]. The patient withdraws to pain 4 extremities. The patient currently on no sedation, fentanyl infusion discontinued yesterday. Tube feeds were initiated. The patient's urine culture grew back Escherichia coli, the patient was started on antibiotics. Extensive discussion with son regarding patient's neurological status, son Wyatt has had extensive discussion with palliative care.The son feels that yesterday when the patient was spoken to in Telugu the patient squeezed his hand and desires aggressive treatment. The patient's neuro status is unchanged, totally unresponsive with occasional reflexive twitching of feet B/L. Follow-up with neurology Dr. Pack, guarding any further imaging studies. 11/13: No change in neuro exam. Palliative care following. Family wanting full aggressive care. Palliative care will address early trach PEG 11/14: No improvement in neuro status. Son has not made decisions regarding trach and PEG. Apparently he wants to wait longer to see any improvement 11/15: Remains unresponsive. Neuro exam with extensor posturing-unchanged. Son requesting aggressive care. Continues to have low-grade fever 11/16: Clinically no improvement. Tolerates CPAP. Unable to extubate as patient will not protect airway 11/17: Tolerating C Pap but no change in neuro exam. Hemoglobin noted to be 6.8 hemodynamically stable 11/18: Became tachycardic and hypotensive early a.m., placed on assist control. Otherwise neuro exam remains unchanged 11/19: Continues to spike fever Tmax 102, started on vancomycin and cefepime in addition to Levaquin yesterday. Currently only low-grade fever. Received 2 units of blood for hemoglobin of 5.3. CBC pending at this time. No improvement in neuro exam 11/20: White count is 18.3 today, MAXIMUM TEMPERATURE 103.1. Chest x-ray showing right sided infiltrate. Urine culture with gram-negative rods and Brionna albicans. ID consulted Diflucan added 11/21/16: Tmax 101.5. Bilateral lung infiltrates, R>L but slightly improved. No improvement in neuro exam. ID consulted and following. 11/22/16: No fever. CT chest- moderate to large R pleural effusion, bilateral lung infiltrates. ABX per ID. CXR today shows increasing bilateral infiltrates and effusion right more than left. Almost near complete infiltrates on the right lung [place]. Vaginally worsening creatinine today 1.45 indicating multiorgan failure 11/23/16: Hb 9.8 today after 2U PRBC yesterday. Plan for tracheostomy today. INR normal platelet count 116. Worsening creatinine today is 1.6. UO 550 ml in 24 hours. 1L NS bolus and 75 ml per hour maintenance NS. Started on Dopamine 3 mcg per min to maintain MAP>65 11/24 Patient is on ventilator via trach. Afebrile. On Dopamine 4 mics. 11/25 No acute events overnight. s/p EGD yesterday showed mild gastritis unable to place PEG tube endoscopically. Remains on Dopamine 4 mics. On no sedation unresponsive. 11/26 No acute events overnight. On CPAP with PS 20, PEEP: 5 and FIO2 40%. Afebrile. Off Dopamine. Afebrile. 11/27 Patient remains on ventilator via trach on no drips. Afebrile. For PEG tube placement by IR today. 11/28 Patient s/p PEG tube placement by IR yesterday, s/p Right thoracentesis with removal 700ml CXR showed better aeration of lungs, Hgb 6.7 this morning 2units PRBC ordered. Renal function worse with Cr: 3.40 from 2.85 . 11/29: Remains encephalopathic on mechanical ventilation via tracheostomy. 11/30: Remains encephalopathic on mechanical ventilation via tracheostomy. 12/01 Patient s/p transfusion 1unit PRBC last night for Hgb 5.8 in addition to 2L NS. Hgb 6.5 this morning. 12/02: Afebrile. The patient underwent CT-guided thoracentesis yesterday with approximately 600 cc removed. Chest x-ray pending this a.m.. Patient received packed red blood cell 2 units yesterday. Hemoglobin 7.4. Pending EGD today. 12/03:The patient underwent EGD yesterday with Dr. Farnsworth patient was noted to have a large active bleeding ulcer in the body of the stomach, multiple AVMs. Multiple ablations performed. This a.m. hemoglobin dropped to 6.1, platelet count 38. The patient was transfused 2 PRBC, and a unit of platelets. Patient still not relieved receiving any nutrition will begin PPN today. The patient continues to have copious amounts of melena with fecal incontinence apparatus in place. 12/04: The patient continues to have copious melena. PT INR drawn last evening INR was noted to be 13.5. The patient received KCentra, and current INR 1.3 the family requests aggressive measures to be continued. No further interventions from gastroenterology per . IR deemed the patient not a candidate for arteriography or endovascular treatment. 12/05: Patient's current medical status unchanged. Large tarry stools, acute blood loss anemia continues in conjunction with thrombocytopenia. During the night the nurse reported a malodorous scent was noted in free water flush container for instillation through G-tube. It was noted to be possibly fish oil , patient's son was in the room during that time. Container removed. The patient is noted to have a hemoglobin level of 5.8 today will receive 2 units of packed red blood cells and 1 unit of platelets today. 12/06: The patient continues to have copious melena. The patient received one 6 pack of platelets, and 2 units of blood yesterday. Tonight as reported by the nurse in the evening the son continue to utilize fish oil in the patient's free water, which was removed by the nurse. Ethics committee consult was initiated with Dr. Bauer yesterday, regarding assessing goals of care. 12/07: The patient's INR 1.3. Patient received 2 units of blood and one 6 pack of platelets yesterday. Awaiting ethics committee meeting with Dr. Bauer. The patient continues to require transfusions. 4/14: Patient was noted to have a drop in hemoglobin this a.m.. The patient is being transfused 2 units of PRBCs, with noted difficulty obtaining unit secondary to antibodies. Hematology will be consulted. Bioethics committee meeting planned to convene in one week, patient's son has agreed to attend. 12/09: Afebrile. No change in neuro status. Wound Care consult for left and blisters on back, orders provided. Hemoglobin stable post 2 units packed red blood cells yesterday. 12/10: The patient's hemoglobin 7.6 yesterday, hemoglobin pending for today. Overnight RN reported family member son continually putting some chemicals in the gastric tube of the patient, risk management notified. Hematology oncology has evaluated the patient, awaiting bioethics committee meeting scheduled for next week. The patient continues on PPN for nutritional support. 12/11 Patient remains on ventilator via trach on no sedation unresponsive. Afebrile.On Protonix drip and PPN. 12/12 No acute events overnight. Afebrile. Hgb 6.8 this morning 2 units PRBC ordered . 12/13 Patient remains on ventilator via trach, s/p transfusion 2units PRBC yesterday Hgb 9.1 this morning. Afebrile. On Protonix drip. 12/14 Patient s/p EGD yesterday which showed esophageal varices and hiatal hernia. On Ventilator via trach. H/H stable. On Protonix drip. 12/15 No acute events overnight. Afebrile. 12/16 Patient remains on ventilator via trach. Afebrile. 12/17 No acute events overnight. Afebrile. 12/18 Patient remains on ventilator via trach. Afebrile. Renal function continue to decline with Cr: 3.2 today from 3.0 with UO 805ml in 24 hrs. Afebrile. 12/19 No acute events overnight. Patient was given 2units Cryo and Vitamin K 5mg x1 by heme. On CPAP with FIO2 30%. Afebrile. Cr: 3.16 from 3.20 with UOP 1150ml in 24 hrs. 12/20: Neuro status remains unchanged. Had some black tarry stools reportedly. 12/21: Remains encephalopathic, on mechanical ventilation via tracheostomy. Hemoglobin dropped to 6.7 today. Has some black tarry stools. Being transfused 1 unit PRBCs. 12/22: Remains encephalopathic, on mechanical ventilation via tracheostomy. 12/23: Remains encephalopathic. On mechanical ventilation via trach. Hemoglobin 7.4 this morning. 1 unit PRBCs ordered. 12/24: Remains encephalopathic on mechanical ventilation. Transfuse 2 units PRBCs yesterday. 12/25: Remains encephalopathic on mechanical ventilation. Hemoglobin drifting down. 12/26: Remains on mechanical ventilation via tracheostomy. Being transfused 1 unit PRBCs today for drop in hemoglobin. 12/27: Remains encephalopathic, on mechanical ventilation via tracheostomy. Now has fungemia and KPC in urine. Transfused 2 units PRBCs today 12/28: Patient remains on mechanical ventilation change in mental status. ID following, Dr. Wen. 12/29: Hemoglobin was noted to be 6.6 this a.m., the patient was transfused 2 units of packed red blood cells. Posttransfusion CBC pending. Patient continues to have black tarry stools. 12/30: Platelet count low, patient to receive 2 units of platelets and cryoprecipitate today. The patient is hypothermic requiring warming devices to maintain temperature. MAP remains in the 60s. Patient continued continues to have copious black tarry, bloody stools. Sodium level 152 today will resume D5W. Tejeda changed, peripheral IVs/ lines changed yesterday. 12/31: Recent continues to be thrombocytopenic with a platelet count today of 41. Patient to receive 2 units of platelets, Hemoglobin is noted to be 4.7 will receive 3 units of packed red blood cells. INR pending. Fibrinogen level within normal limits. The patient remains encephalopathic. 01/01: The patient continues to be coagulopathic, now requiring daily repletion of factors. Remains encephalopathic. Last night was noted steady stream of blood flowing from PEG tube. Objective Vital Signs Date Time Temp Pulse Resp B/P Pulse Ox O2 Delivery O2 Flow Rate FiO2 01/01/17 18:00 57 01/01/17 16:06 96 30 01/01/17 16:00 98.0 19 65/30 Intake and Output 12/31/16 12/31/16 01/01/17 08:00 16:00 00:00 Intake Total 1244 ml 2317 ml 797 ml Output Total 125 ml 50 ml 1120 ml Balance 1119 ml 2267 ml -323 ml Result Diagram: 01/01/17 1000 12/30/16 0508 Imaging Last Impressions Chest X-Ray 12/15/16 0000 Signed Impressions: Service Date/Time: Thursday, December 15, 2016 10:46 - CONCLUSION: No appreciable change. Belkis Rodriguez MD Upper Extremity Ultrasound 12/14/16 0000 Signed Impressions: Service Date/Time: November 14:39 - CONCLUSION: Thrombus within the cephalic vein. Belkis Rodriguez MD Thoracentesis 12/01/16 0000 Signed Impressions: Service Date/Time: Thursday, December 01, 2016 18:56 - CONCLUSION: Uncomplicated CT-guided thoracentesis. Jeffery Alvarado MD Chest CT 12/01/16 0000 Signed Impressions: Service Date/Time: Thursday, December 01, 2016 13:09 - CONCLUSION: Bilateral pleural effusion, larger on the right than the left. Mack Cao MD FACR Abdomen/Pelvis CT 12/01/16 0000 Signed Impressions: Service Date/Time: Thursday, December 01, 2016 13:09 - CONCLUSION: 1. Right inguinal hernia containing only fluid. 2. Generalized anasarca. 3. Trace ascites. 4. Bilateral pleural effusions, larger on the right than the left. Mack Cao MD FACR Abdomen Ultrasound 11/27/16 0000 Signed Impressions: Service Date/Time: Sunday, November 27, 2016 08:35 - CONCLUSION: Stone in the neck of the gallbladder. Trace ascites and mild splenomegaly Jeffery Alvarado MD Gastrostomy Tube Placement 11/24/16 0000 Signed Impressions: Service Date/Time: Sunday, November 27, 2016 14:34 - CONCLUSION: Uncomplicated gastrostomy tube placement as above. Kirit Alcantar MD Head CT 11/08/16 1657 Signed Impressions: Service Date/Time: Tuesday, November 08, 2016 17:06 - CONCLUSION: Low density seen throughout the posterior circulation regions including the susan and midbrain, cerebellar hemispheres, occipital and posterior medial temporal lobes and right thalamus. This likely represents areas of infarction involving the posterior territory circulation. Jeffery Zhong MD Carotid Artery Ultrasound 11/08/16 0000 Signed Impressions: Service Date/Time: Tuesday, November 08, 2016 22:24 - CONCLUSION: Mild calcified plaque at the carotid bulbs. No evidence of hemodynamically significant carotid stenosis. José Luis Beltran MD Objective Remarks GENERAL: Patient is 86 yo on ventilator via trach. SKIN: Warm and dry. HEAD: Normocephalic. EYES: Pallor present, No scleral icterus. No injection or drainage. NECK: Supple, trachea midline. No JVD or lymphadenopathy. CARDIOVASCULAR: Regular rate and rhythm without murmurs, gallops, or rubs. RESPIRATORY: Breath sounds equal bilaterally. Mild expiratory wheeze. 8.0 trach in situ GASTROINTESTINAL: Abdomen soft, non-tender, nondistended. PEG tube in situ, bloody output MUSCULOSKELETAL: No cyanosis, peripheral 2+ edema bilateral upper extremities. Neuro: GCS 3T LIDYA. Negative cough. Negative gag. Extensor posturing in uppers. Downgoing Babinski. 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 She was last seen normal, nearly 24 hours, she was not a candidate for any interventional therapy. Unfortunately, given her age, and the extent of the stroke, her prognosis for any reasonable neurologic function is quite poor. Active GI bleed discussed with family, and patient's poor prognosis. Her family continues to express wishes for aggressive medical management. Bioethics has been consulted. Active problems: Massive posterior circulation ischemic CVA Hypoxic and hypercarbic respiratory failure Severe encephalopathy secondary to stroke Severe sepsis Fungemia Healthcare associated pneumonia with pleural effusion Acute kidney injury UTI Anemia-acute and chronic Hyperglycemia of critical illness Thrombocytopenia Active GI bleed with AVM's Hypothermia DIC Hypotension secondary to acute blood loss anemia Plan Neuro: Monitor neuro status per ICU protocol. Remains comatose - Avoid sedatives. Neuro is following -11/08 CT brain: Low density seen throughout the posterior circulation regions including the susan and midbrain, cerebellar hemispheres, occipital and posterior medial temporal lobes and right thalamus. This likely represents areas of infarction involving the posterior territory circulation Resp: -Continue with vent support keep sat >92% Vent bundle, Head of bed 30, bronchodilators-scheduled -s/p trach 11/23, pulm toilet, trach care -SBT /CPAP trials daily as lia. -s/p CT guided right thoracentesis 11/27 with removal 700ml clear fluid. CVS: Monitor HR and BP keep MAP>60mmhg, will initiate low-dose Phenylephrine (if necessary for map greater than 60) 2-D echo -EF 5560 %, mild aortic mitral and tricuspid regurgitation, No RWMA. 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 --IR intervention-patient is not a candidate. On Protonix 40 mg IV every 12 hourly -s/p PEG tube placement by IR 11/27 , -s/p EGD 11/24 showed mild gastritis unable to place PEG tube endoscopically. -Monitor LFT's, US abdomen: Stone in neck of gall bladder, no hydronephrosis -12/01 CT abdomen/pelvis-generalized anasarca, trace ascites, bilateral pleural effusions right greater than left Continues to have recurrent GI bleeding. No further intervention planned except transfusions in view of extremely poor prognosis with no likelihood of meaningful recovery. Tube feeds as tolerated. -Copious melanotic stools continue-continuing multiple transfusions, now copious output from PEG tube : -Monitor renal function, I/O's, electrolytes replacement as needed. Avoid nephrotoxins -Rising BUN creatinine noted. Being followed by nephrology. Not a candidate for dialysis -Tejeda changed 12/29 ID: - Resumed cefepime on 12/23 after stringer cultures for hypothermia and hypotension for suspected sepsis. Blood cultures growing Brionna para up cillosis and urine cultures with ESBL positive/KPC bacteruria -Reconsulted ID Dr. Wen. Cefepime stopped and started on Cipro and fluconazole IV on 12/27 per ID. -Tjeeda replaced 12/28 Heme Monitor CBC. On Fe Sulfate 300mg BID s/p Vitamin K 5mg x1 and 2 units Cryo. Follow coags per Hematology Hematology is following-Dr. Alaniz. On Epogen M,W,F. Heme is following Hep Plt ab negative. Transfuse PRBCs to keep hemoglobin above 7 g percent Severe anemia, thrombocytopeniablood and platelets infusing. Fibrinogen level subtherapuetic 01/01 Give FFP 2 units, Plts 2 iunits, PRBC 2units, Cryo Endo: --SSI High scale , [id number] u Q12 Msk: --Red and sacral area, left heel wound --12/06 Wound care consulted --Specialty bed-Airflow Proph: Subcutaneous heparin on hold since 11/23 secondary to thrombocytopenia, anemia and GI bleed. SCDs for DVT prophylaxis Protonix for GI prophylaxis RUE US.Thrombus in cephalic veins Not on AC due to GI bleed , anemia requiring blood transfusion and thrombocytopenia with PLT <50 Poor prognosis. -Palliative care is following. Son wishes to continue aggressive medical care despite being informed about extremely poor prognosis with no chance of meaningful recovery. IV access: Peripheral IV's replaced 12/28 Condition critical This patient remains critically ill with one or more organ systems which are or may become a threat to life. I have spent in excess of 37 minutes discontinuously in the care and management of this patient. This time is exclusive of procedures, and includes, but is not limited to, evaluation of the patient, review of the medical record, discussions with family, consultants, nursing staff, or respiratory therapy, and documentation in the medical record. Discussed with , ICU nursing staff. Physician Aysha Raymundo MD January 01, 2017 19:21
--- NOTE | 2017-01-01 22:09 | PD.ONC.PN ---
Subjective Subjective Remarks having active GI bleeding from PEG tube remains obtunded, on mechanical ventilation hypotensive and septic d/w rn Objective Data Date Time Temp Pulse Resp B/P Pulse Ox O2 Delivery O2 Flow Rate FiO2 01/01/17 20:00 56 01/01/17 20:00 30 01/01/17 20:00 98.0 56 19 85/42 97 01/01/17 18:00 57 01/01/17 16:06 96 30 01/01/17 16:00 30 01/01/17 16:00 58 01/01/17 16:00 98.0 58 19 65/30 96 01/01/17 14:00 58 01/01/17 12:34 98 30 01/01/17 12:00 77 01/01/17 12:00 97.6 77 18 70/31 98 01/01/17 12:00 30 01/01/17 10:00 70 01/01/17 08:00 30 01/01/17 08:00 69 01/01/17 08:00 94.5 69 18 72/34 94 01/01/17 07:43 97 30 01/01/17 06:00 72 01/01/17 04:54 100 30 01/01/17 04:30 71 15 67/32 96 01/01/17 04:00 30 01/01/17 04:00 71 01/01/17 04:00 71 15 64/30 95 01/01/17 02:09 97 30 01/01/17 02:00 73 01/01/17 00:00 30 01/01/17 00:00 74 01/01/17 00:00 98.4 74 16 69/32 96 01/01/17 01/01/17 01/01/17 07:00 15:00 23:00 Intake Total 309 ml 852 ml 901 ml Output Total 99 ml 25 ml Balance 210 ml 827 ml 901 ml Result Diagram: 01/01/17 1000 12/30/16 0508 Laboratory Results Laboratory Tests Test 01/01/17 01/01/17 01/01/17 10:00 10:41 11:53 White Blood Count 14.8 TH/MM3 Red Blood Count 2.16 MIL/MM3 Hemoglobin 6.3 GM/DL Hematocrit 20.2 % Mean Corpuscular Volume 93.5 FL Mean Corpuscular Hemoglobin 29.0 PG Mean Corpuscular Hemoglobin 31.0 % Concent Red Cell Distribution Width 19.9 % Platelet Count 32 TH/MM3 Mean Platelet Volume 12.5 FL Neutrophils (%) (Auto) 79.9 % Lymphocytes (%) (Auto) 8.7 % Monocytes (%) (Auto) 10.0 % Eosinophils (%) (Auto) 1.3 % Basophils (%) (Auto) 0.1 % Neutrophils # (Auto) 11.8 TH/MM3 Lymphocytes # (Auto) 1.3 TH/MM3 Monocytes # (Auto) 1.5 TH/MM3 Eosinophils # (Auto) 0.2 TH/MM3 Basophils # (Auto) 0.0 TH/MM3 CBC Comment AUTO DIFF Differential Total Cells 100 Counted Neutrophils % (Manual) 76 % Band Neutrophils % 12 % Lymphocytes % 3 % Monocytes % 6 % Eosinophils % 3 % Neutrophils # (Manual) 13.0 TH/MM3 Nucleated Red Blood Cells 1 /100 WBC Differential Comment FINAL DIFF MANUAL Platelet Estimate LOW Platelet Morphology Comment NORMAL Polychromasia 2.9 % Ovalocytes 1+ Prothrombin Time 21.2 SEC Prothromb Time International 1.9 RATIO Ratio Fibrinogen 208 mg/dL Blood Type O POSITIVE Antibody Screen POSITIVE Crossmatch Leukocyte-Reduced Red Blood Cells Blood Bank Comment Culture Results Microbiology Date/Time Procedure Status Source Growth 01/01/17 11:39 Aerobic Blood Culture Received Blood Peripheral Pending 01/01/17 11:39 Anaerobic Blood Culture Received Blood Peripheral Pending 01/01/17 17:44 Aerobic Blood Culture Received Blood Peripheral Pending 01/01/17 17:44 Anaerobic Blood Culture Received Blood Peripheral Pending Administered Medications Medications (Trade) Dose Ordered Sig/Swati Route PRN Reason Start Time Stop Time Status Last Admin Dose Admin Chlorhexidine Gluconate (Peridex 0.12% Liq) 15 ml BID@08,20 MT 11/08/16 20:00 01/01/17 09:16 IV Flush (NS Flush) 2 ml BID IV FLUSH 11/08/16 21:00 01/01/17 09:00 Ondansetron HCl (Zofran Inj) 4 mg Q6H PRN IV NAUSEA OR VOMITING 11/08/16 19:45 11/30/16 21:43 Heparin Sodium (Porcine) (Heparin Inj) 5,000 units Q12H SQ 11/08/16 20:00 Hold 11/23/16 20:02 Chlorhexidine Gluconate (Chlorhexidine 2% Cloth) Taper DAILY@04 TOP 11/09/16 04:00 11/05/17 03:59 01/01/17 01:42 Artificial Tears (Tears Naturale Opth Soln) 1 drop TID EACH EYE 11/09/16 18:00 01/01/17 17:40 Ferrous Sulfate (Ferrous Sulfate Liq) 300 mg BID PO 11/11/16 09:00 01/01/17 09:15 Acetaminophen (Tylenol 650 Mg/ 20 ml Liq) 650 mg Q4H PRN OG-TUBE TEMP>101 11/12/16 17:00 11/21/16 04:43 Hyoscyamine Sulfate (Levsin Liq) 0.25 mg Q6H PRN PO ORAL SECRETIONS 11/30/16 16:00 12/25/16 08:54 Pantoprazole Sodium (Protonix Inj) 40 mg Q12H IV PUSH 12/15/16 11:00 01/01/17 11:20 Insulin Detemir (Levemir Inj) 10 units Q12HR SQ 12/19/16 09:00 01/01/17 09:00 Dextrose (D50w (Vial) Inj) 25 ml UNSCH PRN IV PUSH HYPOGLYCEMIA-SEE COMMENTS 12/19/16 06:45 01/01/17 17:43 Insulin Human Regular 1 1 Q6HR SQ 12/19/16 06:45 12/31/16 18:00 Dextrose (D5W 1000 ml Inj) 1,000 ml @ 30 mls/hr Q24H IV 12/23/16 09:45 12/31/16 10:23 Chlorothiazide Sodium 250 mg 250 mg Q12HR IV 12/23/16 11:00 01/01/17 09:15 Fluconazole/ Sodium Chloride 200 ml @ 100 mls/hr Q24H IV 12/27/16 18:00 01/01/17 17:39 Ciprofloxacin/ Dextrose 200 ml @ 200 mls/hr Q24H IV 12/27/16 18:45 01/01/17 17:39 Phenylephrine HCl/ Dextrose (Neosynephrine Inj/D5W 500 ml Inj) 500 ml @ 0 mls/hr TITRATE IV 01/01/17 17:30 01/01/17 17:39 Objective Remarks GENERAL: critically ill SKIN: Warm and dry. CARDIOVASCULAR: Regular rate and rhythm without murmurs. RESPIRATORY: coarse sounds, on vent GASTROINTESTINAL: Abdomen soft, non-tender, nondistended. EXTREMITIES: edematous l. Assessment/Plan Assessment 86y/o female critically ill with poor prognosis following a large stroke some weeks ago. Hematology consulted for anemia secondary to GIB/acute illness with underlying coagulopathy and thrombocytopenia. Plan 1. Acute Anemia--having active GI bleeding. Transfuse 2 units of pRBC. 2 units of FFP. Vitamin K given earlier. ? GI assessment Check Hb post transfusion tonight 2. Coagulopathy/DIC/elevated INR: FFP as above 3. Daily coags and fibrinogen 4. Thrombocytopenia due to critical illness/DIC 5. Respiratory failure/sepsis/multiorgan failure/fungemia/UTI. supportive care/ abx per other specialties 6. Remains full code and full supportive care Alfonso Alaniz MD January 01, 2017 22:09
[2017-01-02] VITALS (96 sets, daily range): BP systolic 49–103; BP diastolic 20–49; PULSE 0–60; RESP 1–109; TEMP 97.8–98.7; O2SAT 0–97
[2017-01-02] MEDS ORDERED: DOPamine INJ PREMIX 500 ML ONE (02:36)
[2017-01-02] MEDS: CHLORHEXIDINE GLUCONATE 2 % 1 PACK (2 CLOTHS) TOP SCH ×2 (04:00→21:14)
[2017-01-02] MEDS ORDERED: SODIUM BICARBONATE 8.4% INJ 50 MEQ/50 ML SYR IV ONE (05:00)
[2017-01-02] MEDS ORDERED: EPINEPHrine HCL (1:10,000) 1 MG/10 ML SYRINGE IV ONE (05:00)
[2017-01-02] MEDS: DOPamine 800 MG/D5W PREMIX 500 ML IV SCH ×3 (05:28→21:33)
[2017-01-02] MEDS: PHENYLEPHRINE 40 MG/D5W 496 ML ADMIX IV SCH ×2 (06:00)
[2017-01-02 06:04] LABS: INTERNATIONAL NORMALIZED RATIO 1.4 RATIO; PROTHROMBIN TIME - PATIENT 15.6 SEC (9.8-11.6)
[2017-01-02 06:16] LABS: MEAN CORPUSCULAR HEMOGLOBIN 29.2 PG (27.0-34.0); MEAN CORPUSCULAR HGB CONC 31.4 % (32.0-36.0); PLATELET COUNT 48 TH/MM3 (150-450); RED CELL DISTRIBUTION WIDTH 19.7 % (11.6-17.2); WHITE BLOOD COUNT 13.9 TH/MM3 (4.0-11.0)
[2017-01-02 06:23] LABS: REVIEW FLAG FINAL
[2017-01-02 06:25] LABS: HEMATOCRIT 17.7 % (35.0-46.0)
[2017-01-02] MEDS: CHLORHEXIDINE 0.12% (ORAL KIT) 15 ML CUP MT SCH ×2 (08:00→21:14)
[2017-01-02] MEDS: INSULIN NovoLIN REGULAR SUPPLEMENTAL SCALE SQ SCH ×4 (08:00→18:00)
[2017-01-02] MEDS: SODIUM CHLORIDE 0.9% FLUSH 5 ML FLUSH IV FLUSH SCH ×2 (08:32→21:00)
[2017-01-02] MEDS: CHLOROTHIAZIDE SOD 500 MG VIAL IV SCH (08:32)
[2017-01-02] MEDS: FERROUS SULFATE 300 MG /5ML UDC PO SCH ×2 (08:32→21:12)
[2017-01-02] MEDS: ARTIFICIAL TEARS OPTH SOLN 15 ML BTL EACH EYE SCH ×3 (08:32→18:00)
[2017-01-02] MEDS: INSULIN DETEMIR 100 UNITS/ML VIAL SQ SCH ×2 (09:00→21:13)
[2017-01-02] MEDS: DEXTROSE 5% IN WATE 1000ML INJ 1,000 ML IV SCH (09:45)
[2017-01-02] MEDS: PANTOPRAZOLE SODIUM 40 MG VIAL IV PUSH SCH ×2 (11:00→23:00)
[2017-01-02] MEDS ORDERED: NOREPINEPHRINE-DEXTROSE DRIP 250 ML IV ONE (11:12)
--- NOTE | 2017-01-02 11:18 | PD.ONC.PN ---
Subjective Subjective Remarks Afebrile overnight. Pt resting in bed on vasopressors with systolic BP in the 60 's. Currently getting a PRBC infusion. Pt remains obtunded. Objective Data Date Time Temp Pulse Resp B/P Pulse Ox O2 Delivery O2 Flow Rate FiO2 01/02/17 08:45 46 2 66/28 94 01/02/17 08:30 46 1 66/29 92 01/02/17 08:19 92 75 01/02/17 08:15 46 9 65/28 91 01/02/17 08:00 40 01/02/17 08:00 98.7 47 11 67/30 93 01/02/17 08:00 43 01/02/17 07:45 45 9 66/32 92 01/02/17 07:30 45 11 66/30 92 01/02/17 07:15 44 9 66/30 91 01/02/17 07:00 45 11 67/31 93 01/02/17 06:00 40 01/02/17 04:04 94 40 01/02/17 04:00 40 01/02/17 04:00 49 01/02/17 04:00 98.0 52 19 100/42 93 01/02/17 02:00 37 01/02/17 01:09 97 30 01/02/17 00:00 49 01/02/17 00:00 97.8 52 19 94/44 96 01/02/17 00:00 30 01/01/17 22:00 55 01/01/17 20:00 56 01/01/17 20:00 30 01/01/17 20:00 98.0 56 19 85/42 97 01/01/17 18:00 57 01/01/17 16:06 96 30 01/01/17 16:00 30 01/01/17 16:00 58 01/01/17 16:00 98.0 58 19 65/30 96 01/01/17 14:00 58 01/01/17 12:34 98 30 01/01/17 12:00 77 01/01/17 12:00 97.6 77 18 70/31 98 01/01/17 12:00 30 01/02/17 01/02/17 01/02/17 07:00 15:00 23:00 Intake Total 885 ml Output Total 25 ml Balance 860 ml Result Diagram: 01/02/17 0435 12/30/16 0508 Laboratory Results Laboratory Tests Test 01/01/17 01/01/17 01/02/17 01/02/17 11:53 19:27 04:35 07:41 Blood Bank Comment White Blood Count 13.9 TH/MM3 Red Blood Count 1.90 MIL/MM3 Hemoglobin 5.6 GM/DL Hematocrit 17.7 % Mean Corpuscular Volume 93.0 FL Mean Corpuscular Hemoglobin 29.2 PG Mean Corpuscular Hemoglobin 31.4 % Concent Red Cell Distribution Width 19.7 % Platelet Count 48 TH/MM3 Mean Platelet Volume 12.2 FL Prothrombin Time 15.6 SEC Prothromb Time International 1.4 RATIO Ratio Fibrinogen 238 mg/dL Blood Type O POSITIVE Crossmatch Leukocyte-Reduced Red Blood Cells Test 01/02/17 09:56 Blood Bank Comment Culture Results Microbiology Date/Time Procedure Status Source Growth 01/01/17 11:39 Aerobic Blood Culture Received Blood Peripheral Pending 01/01/17 11:39 Anaerobic Blood Culture Received Blood Peripheral Pending 01/01/17 17:44 Aerobic Blood Culture Received Blood Peripheral Pending 01/01/17 17:44 Anaerobic Blood Culture Received Blood Peripheral Pending Administered Medications Medications (Trade) Dose Ordered Sig/Swati Route PRN Reason Start Time Stop Time Status Last Admin Dose Admin Chlorhexidine Gluconate (Peridex 0.12% Liq) 15 ml BID@08,20 MT 11/08/16 20:00 01/02/17 08:00 IV Flush (NS Flush) 2 ml BID IV FLUSH 11/08/16 21:00 01/01/17 21:00 Ondansetron HCl (Zofran Inj) 4 mg Q6H PRN IV NAUSEA OR VOMITING 11/08/16 19:45 11/30/16 21:43 Heparin Sodium (Porcine) (Heparin Inj) 5,000 units Q12H SQ 11/08/16 20:00 Hold 11/23/16 20:02 Chlorhexidine Gluconate (Chlorhexidine 2% Cloth) Taper DAILY@04 TOP 11/09/16 04:00 11/05/17 03:59 01/01/17 01:42 Artificial Tears (Tears Naturale Opth Soln) 1 drop TID EACH EYE 11/09/16 18:00 01/02/17 08:32 Ferrous Sulfate (Ferrous Sulfate Liq) 300 mg BID PO 11/11/16 09:00 01/01/17 22:51 Acetaminophen (Tylenol 650 Mg/ 20 ml Liq) 650 mg Q4H PRN OG-TUBE TEMP>101 11/12/16 17:00 11/21/16 04:43 Hyoscyamine Sulfate (Levsin Liq) 0.25 mg Q6H PRN PO ORAL SECRETIONS 11/30/16 16:00 12/25/16 08:54 Pantoprazole Sodium (Protonix Inj) 40 mg Q12H IV PUSH 12/15/16 11:00 01/01/17 22:52 Insulin Detemir (Levemir Inj) 10 units Q12HR SQ 12/19/16 09:00 01/01/17 22:52 Dextrose (D50w (Vial) Inj) 25 ml UNSCH PRN IV PUSH HYPOGLYCEMIA-SEE COMMENTS 12/19/16 06:45 01/01/17 17:43 Insulin Human Regular 1 1 Q6HR SQ 12/19/16 06:45 01/02/17 08:00 Dextrose (D5W 1000 ml Inj) 1,000 ml @ 30 mls/hr Q24H IV 12/23/16 09:45 12/31/16 10:23 Chlorothiazide Sodium 250 mg 250 mg Q12HR IV 12/23/16 11:00 01/01/17 22:52 Fluconazole/ Sodium Chloride 200 ml @ 100 mls/hr Q24H IV 12/27/16 18:00 01/01/17 17:39 Ciprofloxacin/ Dextrose 200 ml @ 200 mls/hr Q24H IV 12/27/16 18:45 01/01/17 17:39 Phenylephrine HCl 40 mg/Dextrose 500 ml @ 0 mls/hr TITRATE IV 01/01/17 17:30 01/02/17 06:00 Dopamine HCl/ Dextrose (DOPamine INJ PREMIX) 500 ml @ 0 mls/hr TITRATE IV 01/02/17 05:15 01/02/17 05:28 Objective Remarks GENERAL: Elderly female lying supine in bed, trach'd, PEG and on mechanical ventilation.. SKIN: Warm and dry. Weeping from multiple areas. No oozing. HEAD: Normocephalic. EYES: No injection or drainage. NECK: Tracheostomy. No oozing. CARDIOVASCULAR: +S1/S2 RESPIRATORY: Rhonchi throughout. GASTROINTESTINAL: Abdomen mildly distended. PEG tube in place. TF currently on hold. EXTREMITIES: + Diffuse Anasarca. Assessment/Plan Assessment 86y/o female critically ill with poor prognosis following a large stroke some weeks ago. Hematology consulted for anemia secondary to GIB/acute illness with underlying coagulopathy and thrombocytopenia. Plan 1. Hgb worsened today; pt is critically ill receiving RBC transfusion 2. Coags OK today 3. Will check daily coags and fibrinogen 4. Thrombocytopenia due to critical illness/DIC 5. Pt critical today on vasopressors with systolic BP in the 60's. Attending Statement The exam, history, and the medical decision-making described in the above note were completed with the assistance of the mid-level provider. I reviewed and agree with the findings presented. I attest that I had a [id number] encounter with the patient on the same day, and personally performed and documented my assessment and findings in the medical record. Teresa Ryan January 02, 2017 11:17 Alfonso Alaniz MD January 02, 2017 23:59
--- NOTE | 2017-01-02 12:19 | RADRPT ---
EXAM DATE/TIME: 01/02/2017 11:18 [facility] COMPARISON: CHEST SINGLE AP, December 30, 2016, 3:29. INDICATIONS : Shortness of breath. MEDICAL HISTORY : None. SURGICAL HISTORY : None. ENCOUNTER: Subsequent ACUITY: 2 months PAIN SCORE: Non-responsive. LOCATION: Bilateral chest FINDINGS: Single AP view of the chest. Tracheostomy tube remains in place. Diffuse bilateral pulmonary parenchy mal opacity with slight increase when compared to the prior study. More prominent on the right than l eft. Cardiac silhouette enlargement noted. Small bilateral pleural effusions. CONCLUSION: Slight increase in bilateral diffuse pulmonary opacity right greater than left. Likely represents pul monary edema. José Luis Beltran MD on January 02, 2017 at 12:17 Board Certified Radiologist. This report was verified electronically.
--- NOTE | 2017-01-02 13:22 | HHI.NPPN ---
Subjective History of Present Illness 86 year old with CVA, Resp failure s/p Trach/ PEG Additional Remarks Patient on the vent. and sedated, still having GI bleeding, Hgb. dropped and BP is low. Objective Data Data 01/01/17 01/02/17 19:00 07:00 Intake Total 1753 ml 1730 ml Output Total 25 ml 45 ml Balance 1728 ml 1685 ml IV Total 281 ml 790 ml Packed Cells 605 ml FFP 700 ml Platelets 867 ml Other 240 ml Output Urine Total 25 ml 45 ml # Bowel Movements 1 2 Vital Signs Date Time Temp Pulse Resp B/P Pulse Ox O2 Delivery O2 Flow Rate FiO2 01/02/17 12:21 85 100 01/02/17 12:00 41 01/02/17 12:00 100 01/02/17 10:00 42 01/02/17 08:45 46 2 66/28 94 01/02/17 08:30 46 1 66/29 92 01/02/17 08:19 92 75 01/02/17 08:15 46 9 65/28 91 01/02/17 08:00 40 01/02/17 08:00 98.7 47 11 67/30 93 01/02/17 08:00 43 01/02/17 07:45 45 9 66/32 92 01/02/17 07:30 45 11 66/30 92 01/02/17 07:15 44 9 66/30 91 01/02/17 07:00 45 11 67/31 93 01/02/17 06:00 40 01/02/17 04:04 94 40 01/02/17 04:00 40 01/02/17 04:00 49 01/02/17 04:00 98.0 52 19 100/42 93 01/02/17 02:00 37 01/02/17 01:09 97 30 01/02/17 00:00 49 01/02/17 00:00 97.8 52 19 94/44 96 01/02/17 00:00 30 01/01/17 22:00 55 01/01/17 20:00 56 01/01/17 20:00 30 01/01/17 20:00 98.0 56 19 85/42 97 01/01/17 18:00 57 01/01/17 16:06 96 30 01/01/17 16:00 30 01/01/17 16:00 58 01/01/17 16:00 98.0 58 19 65/30 96 01/01/17 14:00 58 -: 01/02/17 0435 12/30/16 0508 Microbiology 01/01/17 Aerobic Blood Culture - Preliminary, Resulted NO GROWTH IN 1 DAY 01/01/17 Anaerobic Blood Culture - Preliminary, Resulted NO GROWTH IN 1 DAY Physical Exam Eyes Eye Exam: Pupils Equal Throat Throat Exam: Oral Mucosa [place] & Moist Neck Neck Remarks s/p trach Pulmonary Resp Exam: Crackles, Rhonchi, Decreased Bases, Diminished Breath Sounds, Poor Inspiratory Effort Cardiology CV Exam: Tachycardia Gastrointestinal/Abdomen GI Exam: Soft, Non-Tender Extremeties Extremities Exam: Moderate Edema Neurologic Neuro Exam: Sedated Assessment/Plan Problem List: (1) Acute renal failure Plan: Non oliguric renal failure. volume overload. Liver failure. Stop Diuril as hypotensive. patient is anuric On D5W at 30 ml/hour. 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 Ongoing anemia, continue to monitor. getting PRBC on regular interval no hope of recovery agree with other consultants, she may not survive this and her prognosis is poor BUN/cr higher as of 12/30 Low Hb low BP several PRBC Poor prognosis on Cipro/ Diflucan UOP poor on multiorgan failure SBP 71 about to code poor survival agree with Palliative care ethics meeting with son as futile care with hopeless situation and no chance of meaningful recovery. 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 poor UOP with BP crashing is imminent Now getting transfusion, BP is low. (2) Metabolic acidosis Plan: Stable, continue to monitor (3) Pneumonia Plan: On vent treated earlier with antibiotic (4) Urinary tract infection Plan: Escherichia coli she was treated (5) CVA (cerebral vascular accident) Plan: Massive stroke neurology following (6) Rhabdomyolysis Plan: This resolved (7) Gastrointestinal hemorrhage Plan: Multiple PRBC given AVM poor prognosis Plan Poor prognosis. Problem Qualifiers (1) Acute renal failure: Qualified Code: N17.9 - Acute renal failure, unspecified acute renal failure type (2) CVA (cerebral vascular accident): Qualified Code: I63.9 - Cerebrovascular accident (CVA), unspecified mechanism (3) Rhabdomyolysis: Qualified Code: M62.82 - Non-traumatic rhabdomyolysis Kristel Zuniga MD January 02, 2017 13:22
[2017-01-02] MEDS: [UNRECOGNIZED DRUG - REMARK] IV SCH ×2 (13:45)
--- NOTE | 2017-01-02 13:59 | HHI.CCPN ---
Subjective Remarks/Hospital Course This is an 86yF with per report no other past medical history who presented to the ER after she was found unresponsive in her bed. According to ER reports, her family saw her normal last night when she had a fall, with unknown LOC. At that point, he helped her back to bed. However, this morning she did not wake up. On arrival to the ER, she was unresponsive only withdrawing to pain. she was intubated for airway protection and a poor GCS. CT head demonstrated massive posterior-circulation ischemic stroke. The patient is currently intubated and unresponsive and cannot provide any additional history. 11/09: No acute changes overnight. Palliative care team has consult with the family regarding goals of care. Currently the patient's sedation fentanyl infusion has been turned off without any response from patient. The patient notably does withdrawal to pain. 11/10: No change in neurological status. [id number]. The patient withdraws to pain 4 extremities. The patient currently on no sedation, fentanyl infusion discontinued yesterday. Tube feeds were initiated. The patient's urine culture grew back Escherichia coli, the patient was started on antibiotics. Extensive discussion with son regarding patient's neurological status, son Wyatt has had extensive discussion with palliative care.The son feels that yesterday when the patient was spoken to in [place] the patient squeezed his hand and desires aggressive treatment. The patient's neuro status is unchanged, totally unresponsive with occasional reflexive twitching of feet B/L. Follow-up with neurology Dr. Pack, guarding any further imaging studies. 11/13: No change in neuro exam. Palliative care following. Family wanting full aggressive care. Palliative care will address early trach PEG 11/14: No improvement in neuro status. Son has not made decisions regarding trach and PEG. Apparently he wants to wait longer to see any improvement 11/15: Remains unresponsive. Neuro exam with extensor posturing-unchanged. Son requesting aggressive care. Continues to have low-grade fever 11/16: Clinically no improvement. Tolerates CPAP. Unable to extubate as patient will not protect airway 11/17: Tolerating C Pap but no change in neuro exam. Hemoglobin noted to be 6.8 hemodynamically stable 11/18: Became tachycardic and hypotensive early a.m., placed on assist control. Otherwise neuro exam remains unchanged 11/19: Continues to spike fever Tmax 102, started on vancomycin and cefepime in addition to Levaquin yesterday. Currently only low-grade fever. Received 2 units of blood for hemoglobin of 5.3. CBC pending at this time. No improvement in neuro exam 11/20: White count is 18.3 today, MAXIMUM TEMPERATURE 103.1. Chest x-ray showing right sided infiltrate. Urine culture with gram-negative rods and Brionna albicans. ID consulted Diflucan added 11/21/16: Tmax 101.5. Bilateral lung infiltrates, R>L but slightly improved. No improvement in neuro exam. ID consulted and following. 11/22/16: No fever. CT chest- moderate to large R pleural effusion, bilateral lung infiltrates. ABX per ID. CXR today shows increasing bilateral infiltrates and effusion right more than left. Almost near complete infiltrates on the right lung [place]. Vaginally worsening creatinine today 1.45 indicating multiorgan failure 11/23/16: Hb 9.8 today after 2U PRBC yesterday. Plan for tracheostomy today. INR normal platelet count 116. Worsening creatinine today is 1.6. UO 550 ml in 24 hours. 1L NS bolus and 75 ml per hour maintenance NS. Started on Dopamine 3 mcg per min to maintain MAP>65 11/24 Patient is on ventilator via trach. Afebrile. On Dopamine 4 mics. 11/25 No acute events overnight. s/p EGD yesterday showed mild gastritis unable to place PEG tube endoscopically. Remains on Dopamine 4 mics. On no sedation unresponsive. 11/26 No acute events overnight. On CPAP with PS 20, PEEP: 5 and FIO2 40%. Afebrile. Off Dopamine. Afebrile. 11/27 Patient remains on ventilator via trach on no drips. Afebrile. For PEG tube placement by IR today. 11/28 Patient s/p PEG tube placement by IR yesterday, s/p Right thoracentesis with removal 700ml CXR showed better aeration of lungs, Hgb 6.7 this morning 2units PRBC ordered. Renal function worse with Cr: 3.40 from 2.85 . 11/29: Remains encephalopathic on mechanical ventilation via tracheostomy. 11/30: Remains encephalopathic on mechanical ventilation via tracheostomy. 12/01 Patient s/p transfusion 1unit PRBC last night for Hgb 5.8 in addition to 2L NS. Hgb 6.5 this morning. 12/02: Afebrile. The patient underwent CT-guided thoracentesis yesterday with approximately 600 cc removed. Chest x-ray pending this a.m.. Patient received packed red blood cell 2 units yesterday. Hemoglobin 7.4. Pending EGD today. 12/03:The patient underwent EGD yesterday with Dr. Farnsworth patient was noted to have a large active bleeding ulcer in the body of the stomach, multiple AVMs. Multiple ablations performed. This a.m. hemoglobin dropped to 6.1, platelet count 38. The patient was transfused 2 PRBC, and a unit of platelets. Patient still not relieved receiving any nutrition will begin PPN today. The patient continues to have copious amounts of melena with fecal incontinence apparatus in place. 12/04: The patient continues to have copious melena. PT INR drawn last evening INR was noted to be 13.5. The patient received KCentra, and current INR 1.3 the family requests aggressive measures to be continued. No further interventions from gastroenterology per . IR deemed the patient not a candidate for arteriography or endovascular treatment. 12/05: Patient's current medical status unchanged. Large tarry stools, acute blood loss anemia continues in conjunction with thrombocytopenia. During the night the nurse reported a malodorous scent was noted in free water flush container for instillation through G-tube. It was noted to be possibly fish oil , patient's son was in the room during that time. Container removed. The patient is noted to have a hemoglobin level of 5.8 today will receive 2 units of packed red blood cells and 1 unit of platelets today. 12/06: The patient continues to have copious melena. The patient received one 6 pack of platelets, and 2 units of blood yesterday. Tonight as reported by the nurse in the evening the son continue to utilize fish oil in the patient's free water, which was removed by the nurse. Ethics committee consult was initiated with Dr. Bauer yesterday, regarding assessing goals of care. 12/07: The patient's INR 1.3. Patient received 2 units of blood and one 6 pack of platelets yesterday. Awaiting ethics committee meeting with Dr. Bauer. The patient continues to require transfusions. 4/14: Patient was noted to have a drop in hemoglobin this a.m.. The patient is being transfused 2 units of PRBCs, with noted difficulty obtaining unit secondary to antibodies. Hematology will be consulted. Bioethics committee meeting planned to convene in one week, patient's son has agreed to attend. 12/09: Afebrile. No change in neuro status. Wound Care consult for left and blisters on back, orders provided. Hemoglobin stable post 2 units packed red blood cells yesterday. 12/10: The patient's hemoglobin 7.6 yesterday, hemoglobin pending for today. Overnight RN reported family member son continually putting some chemicals in the gastric tube of the patient, risk management notified. Hematology oncology has evaluated the patient, awaiting bioethics committee meeting scheduled for next week. The patient continues on PPN for nutritional support. 12/11 Patient remains on ventilator via trach on no sedation unresponsive. Afebrile.On Protonix drip and PPN. 12/12 No acute events overnight. Afebrile. Hgb 6.8 this morning 2 units PRBC ordered . 12/13 Patient remains on ventilator via trach, s/p transfusion 2units PRBC yesterday Hgb 9.1 this morning. Afebrile. On Protonix drip. 12/14 Patient s/p EGD yesterday which showed esophageal varices and hiatal hernia. On Ventilator via trach. H/H stable. On Protonix drip. 12/15 No acute events overnight. Afebrile. 12/16 Patient remains on ventilator via trach. Afebrile. 12/17 No acute events overnight. Afebrile. 12/18 Patient remains on ventilator via trach. Afebrile. Renal function continue to decline with Cr: 3.2 today from 3.0 with UO 805ml in 24 hrs. Afebrile. 12/19 No acute events overnight. Patient was given 2units Cryo and Vitamin K 5mg x1 by heme. On CPAP with FIO2 30%. Afebrile. Cr: 3.16 from 3.20 with UOP 1150ml in 24 hrs. 12/20: Neuro status remains unchanged. Had some black tarry stools reportedly. 12/21: Remains encephalopathic, on mechanical ventilation via tracheostomy. Hemoglobin dropped to 6.7 today. Has some black tarry stools. Being transfused 1 unit PRBCs. 12/22: Remains encephalopathic, on mechanical ventilation via tracheostomy. 12/23: Remains encephalopathic. On mechanical ventilation via trach. Hemoglobin 7.4 this morning. 1 unit PRBCs ordered. 12/24: Remains encephalopathic on mechanical ventilation. Transfuse 2 units PRBCs yesterday. 12/25: Remains encephalopathic on mechanical ventilation. Hemoglobin drifting down. 12/26: Remains on mechanical ventilation via tracheostomy. Being transfused 1 unit PRBCs today for drop in hemoglobin. 12/27: Remains encephalopathic, on mechanical ventilation via tracheostomy. Now has fungemia and KPC in urine. Transfused 2 units PRBCs today 12/28: Patient remains on mechanical ventilation change in mental status. ID following, Dr. Wen. 12/29: Hemoglobin was noted to be 6.6 this a.m., the patient was transfused 2 units of packed red blood cells. Posttransfusion CBC pending. Patient continues to have black tarry stools. 12/30: Platelet count low, patient to receive 2 units of platelets and cryoprecipitate today. The patient is hypothermic requiring warming devices to maintain temperature. MAP remains in the 60s. Patient continued continues to have copious black tarry, bloody stools. Sodium level 152 today will resume D5W. Tejeda changed, peripheral IVs/ lines changed yesterday. 12/31: Recent continues to be thrombocytopenic with a platelet count today of 41. Patient to receive 2 units of platelets, Hemoglobin is noted to be 4.7 will receive 3 units of packed red blood cells. INR pending. Fibrinogen level within normal limits. The patient remains encephalopathic. 01/01: The patient continues to be coagulopathic, now requiring daily repletion of factors. Remains encephalopathic. Last night was noted steady stream of blood flowing from PEG tube. 01/02: The patient continues to be coagulopathic, hemoglobin 5.6 this a.m. after receiving 2 units of FFP 1 unit of cryoprecipitate 2 units of packed red blood cells yesterday. Patient scheduled to receive 2 units of packed cells, 22 units of platelets, 1 unit of cryoprecipitate this a.m.. The patient has been noted to become hypotensive and has been on phenylephrine maximum doses MAP remains in the high 40s. The patient was additionally placed on Levophed, vasopressin. Patient was noted to have poor oxygenation as well a stat chest x- ray has been performed results pending, ABG has been performed results pending. Blood transfusions are continued, and the patient continues to bleed. Multiple attempts of calling son Wyatt this morning to update him on patient's medical status were unsuccessful. Objective Vital Signs Date Time Temp Pulse Resp B/P Pulse Ox O2 Delivery O2 Flow Rate FiO2 01/02/17 12:21 85 100 01/02/17 12:00 41 01/02/17 08:45 2 66/28 01/02/17 08:00 98.7 Intake and Output 01/01/17 01/01/17 01/02/17 08:00 16:00 00:00 Intake Total 309 ml 1148 ml 1450 ml Output Total 99 ml 25 ml 20 ml Balance 210 ml 1123 ml 1430 ml Result Diagram: 01/02/17 0435 12/30/16 0508 Imaging Last Impressions Chest X-Ray 12/15/16 0000 Signed Impressions: Service Date/Time: Thursday, December 15, 2016 10:46 - CONCLUSION: No appreciable change. Belkis Rodriguez MD Upper Extremity Ultrasound 12/14/16 0000 Signed Impressions: Service Date/Time: November 14:39 - CONCLUSION: Thrombus within the cephalic vein. Belkis Rodriguez MD Thoracentesis 12/01/16 0000 Signed Impressions: Service Date/Time: Thursday, December 01, 2016 18:56 - CONCLUSION: Uncomplicated CT-guided thoracentesis. Jeffery Alvarado MD Chest CT 12/01/16 0000 Signed Impressions: Service Date/Time: Thursday, December 01, 2016 13:09 - CONCLUSION: Bilateral pleural effusion, larger on the right than the left. Mack Cao MD FACR Abdomen/Pelvis CT 12/01/16 0000 Signed Impressions: Service Date/Time: Thursday, December 01, 2016 13:09 - CONCLUSION: 1. Right inguinal hernia containing only fluid. 2. Generalized anasarca. 3. Trace ascites. 4. Bilateral pleural effusions, larger on the right than the left. Mack Cao MD FACR Abdomen Ultrasound 11/27/16 0000 Signed Impressions: Service Date/Time: Sunday, November 27, 2016 08:35 - CONCLUSION: Stone in the neck of the gallbladder. Trace ascites and mild splenomegaly Jeffery Alvarado MD Gastrostomy Tube Placement 11/24/16 0000 Signed Impressions: Service Date/Time: Sunday, November 27, 2016 14:34 - CONCLUSION: Uncomplicated gastrostomy tube placement as above. Kriit Alcantar MD Head CT 11/08/16 1657 Signed Impressions: Service Date/Time: Tuesday, November 08, 2016 17:06 - CONCLUSION: Low density seen throughout the posterior circulation regions including the susan and midbrain, cerebellar hemispheres, occipital and posterior medial temporal lobes and right thalamus. This likely represents areas of infarction involving the posterior territory circulation. Jeffery Zhong MD Carotid Artery Ultrasound 11/08/16 0000 Signed Impressions: Service Date/Time: Tuesday, November 08, 2016 22:24 - CONCLUSION: Mild calcified plaque at the carotid bulbs. No evidence of hemodynamically significant carotid stenosis. José Luis Beltran MD Objective Remarks GENERAL: Patient is 86 yo on ventilator via trach. SKIN: Warm and dry. HEAD: Normocephalic. EYES: Pallor present, No scleral icterus. No injection or drainage. NECK: Supple, trachea midline. No JVD or lymphadenopathy. CARDIOVASCULAR: Regular rate and rhythm without murmurs, gallops, or rubs. RESPIRATORY: Breath sounds equal bilaterally. Mild expiratory wheeze. 8.0 trach in situ GASTROINTESTINAL: Abdomen soft, non-tender, nondistended. PEG tube in situ, bloody output MUSCULOSKELETAL: No cyanosis, peripheral 2+ edema bilateral upper extremities. Neuro: GCS 3T LIDYA. Negative cough. Negative gag. Extensor posturing in uppers. Downgoing Babinski. 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 She was last seen normal, nearly 24 hours, she was not a candidate for any interventional therapy. Unfortunately, given her age, and the extent of the stroke, her prognosis for any reasonable neurologic function is quite poor. Active GI bleed discussed with family, and patient's poor prognosis. Her family continues to express wishes for aggressive medical management. Bioethics has been consulted, with no resolution . Active problems: Massive posterior circulation ischemic CVA Hypoxic and hypercarbic respiratory failure Severe encephalopathy secondary to stroke Severe sepsis Fungemia Healthcare associated pneumonia with pleural effusion Acute kidney injury UTI Anemia-acute and chronic Hyperglycemia of critical illness Thrombocytopenia Active GI bleed with AVM's Hypothermia DIC Hypotension secondary to acute blood loss anemia Sinus bradycardia Hypoxia Plan Neuro: Monitor neuro status per ICU protocol. Remains comatose - Avoid sedatives. Neuro is following -11/08 CT brain: Low density seen throughout the posterior circulation regions including the susan and midbrain, cerebellar hemispheres, occipital and posterior medial temporal lobes and right thalamus. This likely represents areas of infarction involving the posterior territory circulation Resp: -Continue with vent support keep sat >92% Vent bundle, Head of bed 30, bronchodilators-scheduled -s/p trach 11/23, pulm toilet, trach care -SBT /CPAP trials daily as lia. -s/p CT guided right thoracentesis 11/27 with removal 700ml clear fluid. -Obtain stat ABG, a chin currently on 100% FiO2 -Follow-up chest x-ray [facility]: Monitor HR and BP keep MAP>60mmhg, will initiate low-dose Phenylephrine (if necessary for map greater than 60) 2-D echo -EF 5560 %, mild aortic mitral and tricuspid regurgitation, No RWMA. 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 --IR intervention-patient is not a candidate. On Protonix 40 mg IV every 12 hourly -s/p PEG tube placement by IR 11/27 , -s/p EGD 11/24 showed mild gastritis unable to place PEG tube endoscopically. -Monitor LFT's, US abdomen: Stone in neck of gall bladder, no hydronephrosis -12/01 CT abdomen/pelvis-generalized anasarca, trace ascites, bilateral pleural effusions right greater than left Continues to have recurrent GI bleeding. No further intervention planned except transfusions in view of extremely poor prognosis with no likelihood of meaningful recovery. Tube feeds as tolerated. -Copious melanotic stools continue-continuing multiple transfusions, now copious output from PEG tube : -Monitor renal function, I/O's, electrolytes replacement as needed. Avoid nephrotoxins -Rising BUN creatinine noted. Being followed by nephrology. Not a candidate for dialysis -Tejeda changed 12/29 ID: - Resumed cefepime on 12/23 after stringer cultures for hypothermia and hypotension for suspected sepsis. Blood cultures growing Brionna para up cillosis and urine cultures with ESBL positive/KPC bacteruria -Reconsulted ID Dr. Wen. Cefepime stopped and started on Cipro and fluconazole IV on 12/27 per ID. -Tejeda replaced 12/28 Heme Monitor CBC. On Fe Sulfate 300mg BID s/p Vitamin K 5mg x1 and 2 units Cryo. Follow coags per Hematology Hematology is following-Dr. Alaniz. On Epogen M,W,F. Heme is following Hep Plt ab negative. Transfuse PRBCs to keep hemoglobin above 7 g percent Severe anemia, thrombocytopeniablood and platelets infusing. Fibrinogen level subtherapuetic 01/01 Give FFP 2 units, Plts 2 iunits, PRBC 2units, Cryo Endo: --SSI High scale , [id number] u Q12 Msk: --Red and sacral area, left heel wound --12/06 Wound care consulted --Specialty bed-Airflow Proph: Subcutaneous heparin on hold since 11/23 secondary to thrombocytopenia, anemia and GI bleed. SCDs for DVT prophylaxis Protonix for GI prophylaxis RUE US.Thrombus in cephalic veins Not on AC due to GI bleed , anemia requiring blood transfusion and thrombocytopenia with PLT <50 Poor prognosis. -Palliative care is following. Son wishes to continue aggressive medical care despite being informed about extremely poor prognosis with no chance of meaningful recovery. IV access: Peripheral IV's replaced 12/28 Condition critical This patient remains critically ill with one or more organ systems which are or may become a threat to life. I have spent in excess of 49 minutes discontinuously in the care and management of this patient. This time is exclusive of procedures, and includes, but is not limited to, evaluation of the patient, review of the medical record, discussions with family, consultants, nursing staff, or respiratory therapy, and documentation in the medical record. 01/02: The patient's son Wyatt telephoned, I updated him and explained that the patient's blood pressure was dropping and having difficulty oxygenating the patient she was in a severe critical condition eminent CPR probable. I informed him that we were continuing to transfuse the patient due to acute blood loss, and that we were on 100% oxygen attempting to oxygenate. I informed him that the 3 vasopressor medications were at maximum dosage, it doesn't appear that the patient is responding. I reiterated that there was no chance of meaningful recovery. Wyatt requested that I give the patient fish oil to make her better. " And that she was doing better when she was receiving the fish oil several weeks ago." I reiterated to Wyatt that that was not a part of a protocol for resuscitation and he continued to request that I provide fish oil to the patient. Wyatt then inquired if there was a possibility that the patient contracted HIV or hepatitis via blood transfusions. I provided him statistics. He then asked to speak to his mother via telephone, and the request was granted by the BIOLOGY TEACHER. Discussed with BIOLOGY TEACHER at bedside. Physician Aysha Raymundo MD January 02, 2017 13:59
[2017-01-02 14:06] LABS: BLOOD GAS BASE EXCESS -23.6 mmol/L (-2-2); BLOOD GAS CARBOXYHEMOGLOBIN 0.7 % (0-4); BLOOD GAS HCO3 6 mmol/L (22-26); BLOOD GAS METHEMOGLOBIN 1.5 % (0-2); BLOOD GAS O2 HGB SATURATION 97 % (90-100); BLOOD GAS PCO2 30 mmHg (38-42); BLOOD GAS PO2 446 mmHg (61-120); BLOOD GAS TOTAL HGB 6.4 G/DL (12.0-16.0); CRITICAL VALUE YES; OXYGEN DEVICE VENTILATOR; TEMP CORR TO 98.6
[2017-01-02 14:07] LABS: DRAW SITE RT RADIAL; FIO2 100 %; NUMBER OF ARTERIAL PUNCTURES 1; STAT NO; ULNAR PULSE PRESENT; VENT SETTINGS PRVC/AC
[2017-01-02] MEDS ORDERED: SODIUM BICARBONATE 8.4% INJ 50 MEQ/50 ML SYR IV PUSH ONE (14:30)
[2017-01-02] MEDS ORDERED: SODIUM BICARBONATE 8.4% INJ 50 ML ONE (14:48)
--- NOTE | 2017-01-02 15:46 | HHI.HCPN ---
Reason for visit a. To assist with evaluation and management of symptoms including: pain; dyspnea; encephalopathy b. To assist medical decision maker(s) with: better understanding of current medical conditions; weighing benefits/burdens of medical treatment options; making medical treatment decisions. . Subjective/Interval History Patient remains unresponsive, vent-dependent, in an MICU bed. 86 y/o female with devastating posterior circulation stroke, TRACH PLACED , PEG placed and thoracentesis by IR on 11/27/16. Patient now appears to be actively dying. Son, Wyatt, has been notified by nursing. He wanted physicians to read about how fish oil saves lives. Temp down to 94.5 on 01/01 -- warming blanket in place. Pulse in the 40s. Systolic BPs in 60s-70s on pressors. Pulse oximetry in 80s on 100% FI02. Urine output 70 cc. Hg 5.6. Platelets 48. Na 152. BUN 165; Creat 3.32. CXR shows increase in diffuse bilateral pulmonary opacity right greater than left. Patient has received 29 units of PRBCs to date. . . Family/friend interactions Nursing called son- Wyatt - and let him know his mother was actively dying. Uncertain if he will be coming in. . Advance Directives Living Will: Never completed Health Care Surrogate: Never completed Durable Power of Curatorial Assistant: Never completed Advance Directive Specifics Date completed: Advance directives were never completed . Health Care Surrogate(s): There is no known written designation of health care surrogate . Documented care wishes: There is no written documentation of health care goals/preferences. . Objective Vital Signs Date Time Temp Pulse Resp B/P Pulse Ox O2 Delivery O2 Flow Rate FiO2 01/02/17 15:19 0 100 01/02/17 13:15 41 9 70/31 85 01/02/17 13:00 42 10 71/33 84 01/02/17 12:56 42 10 68/32 85 01/02/17 12:45 42 11 81 01/02/17 12:30 42 10 83 01/02/17 12:21 85 100 01/02/17 12:15 42 10 85 01/02/17 12:01 41 12 74/34 89 01/02/17 12:00 41 01/02/17 12:00 100 01/02/17 12:00 41 13 88 01/02/17 11:45 39 8 82 01/02/17 11:31 40 12 70/31 89 01/02/17 11:30 40 10 85 01/02/17 11:16 41 11 76/36 95 01/02/17 11:15 41 11 91 01/02/17 11:00 40 10 62/29 85 01/02/17 10:45 42 10 60/26 87 01/02/17 10:30 45 12 70/30 93 01/02/17 10:16 44 10 68/30 94 01/02/17 10:15 44 11 95 01/02/17 10:00 46 5 67/31 93 01/02/17 10:00 42 01/02/17 08:45 46 2 66/28 94 01/02/17 08:30 46 1 66/29 92 01/02/17 08:19 92 75 01/02/17 08:15 46 9 65/28 91 01/02/17 08:00 40 01/02/17 08:00 98.7 47 11 67/30 93 01/02/17 08:00 43 01/02/17 07:45 45 9 66/32 92 01/02/17 07:30 45 11 66/30 92 01/02/17 07:15 44 9 66/30 91 01/02/17 07:00 45 11 67/31 93 01/02/17 06:00 40 01/02/17 04:04 94 40 01/02/17 04:00 40 01/02/17 04:00 49 01/02/17 04:00 98.0 52 19 100/42 93 01/02/17 02:00 37 01/02/17 01:09 97 30 01/02/17 00:00 49 01/02/17 00:00 97.8 52 19 94/44 96 01/02/17 00:00 30 01/01/17 22:00 55 01/01/17 20:00 56 01/01/17 20:00 30 01/01/17 20:00 98.0 56 19 85/42 97 01/01/17 18:00 57 01/01/17 16:06 96 30 01/01/17 16:00 30 01/01/17 16:00 58 01/01/17 16:00 98.0 58 19 65/30 96 Intake & Output 01/02/17 01/02/17 07:00 19:00 Intake Total 1730 ml Output Total 45 ml Balance 1685 ml IV Total 790 ml FFP 700 ml Other 240 ml Output Urine Total 45 ml # Bowel Movements 2 . Physical Exam CONSTITUTIONAL/GENERAL: This is an adequately nourished patient, trached, mechanically ventilated; in an MICU bed. Responsiveness limited to minimal decerebrate posturing TUBES/LINES/DRAINS: trach, PEG tube, Tejeda catheter; peripheral IVs; dressing LE, warming blanket. CARDIOVASCULAR: Bradycardic. Regular. RESPIRATORY/CHEST: Symmetric, unlabored respirations. Breath sounds equal bilaterally. Coarse breath sounds bilaterally. No wheezes, rales. GASTROINTESTINAL: Abdomen distended, moderately firm. No hepato-splenomegaly, or palpable masses. No guarding. GENITOURINARY: Without palpable bladder distension. Tejeda catheter in place. MUSCULOSKELETAL: Extremities with edema. No mottling. NEUROLOGICAL: Does not awaken to loud voice or exam. Unable to follow commands. Decerebrate posturing to noxious stimuli. PSYCHIATRIC: Unable to evaluate due to level of responsiveness. . Diagnostic Tests Laboratory Laboratory Tests Test 12/30/16 12/31/16 12/31/16 12/31/16 17:00 03:53 05:55 09:41 Blood Bank Comment Fibrinogen 213 mg/dL (181-393) White Blood Count 9.2 TH/MM3 (4.0-11.0) Red Blood Count 1.66 MIL/MM3 (4.00-5.30) Hemoglobin 4.7 GM/DL (11.6-15.3) Hematocrit 14.3 % (35.0-46.0) Mean Corpuscular Volume 86.0 FL (80.0-100.0) Mean Corpuscular Hemoglobin 28.4 PG (27.0-34.0) Mean Corpuscular Hemoglobin 33.0 % Concent (32.0-36.0) Red Cell Distribution Width 22.9 % (11.6-17.2) Platelet Count 41 TH/MM3 (150-450) Mean Platelet Volume 11.9 FL (7.0-11.0) Blood Type O POSITIVE Crossmatch Leukocyte-Reduced Red Blood Cells Test 12/31/16 12/31/16 01/01/17 01/01/17 10:00 19:05 10:00 10:41 Prothrombin Time 19.4 SEC 21.2 SEC (9.8-11.6) (9.8-11.6) Prothromb Time International 1.7 RATIO 1.9 RATIO Ratio Hemoglobin 7.8 GM/DL 6.3 GM/DL (11.6-15.3) (11.6-15.3) Hematocrit 23.6 % 20.2 % (35.0-46.0) (35.0-46.0) Platelet Count 35 TH/MM3 32 TH/MM3 (150-450) (150-450) White Blood Count 14.8 TH/MM3 (4.0-11.0) Red Blood Count 2.16 MIL/MM3 (4.00-5.30) Mean Corpuscular Volume 93.5 FL (80.0-100.0) Mean Corpuscular Hemoglobin 29.0 PG (27.0-34.0) Mean Corpuscular Hemoglobin 31.0 % Concent (32.0-36.0) Red Cell Distribution Width 19.9 % (11.6-17.2) Mean Platelet Volume 12.5 FL (7.0-11.0) Neutrophils (%) (Auto) 79.9 % (16.0-70.0) Lymphocytes (%) (Auto) 8.7 % (9.0-44.0) Monocytes (%) (Auto) 10.0 % (0.0-8.0) Eosinophils (%) (Auto) 1.3 % (0.0-4.0) Basophils (%) (Auto) 0.1 % (0.0-2.0) Neutrophils # (Auto) 11.8 TH/MM3 (1.8-7.7) Lymphocytes # (Auto) 1.3 TH/MM3 (1.0-4.8) Monocytes # (Auto) 1.5 TH/MM3 (0-0.9) Eosinophils # (Auto) 0.2 TH/MM3 (0-0.4) Basophils # (Auto) 0.0 TH/MM3 (0-0.2) CBC Comment AUTO DIFF Differential Total Cells 100 Counted Neutrophils % (Manual) 76 % (16-70) Band Neutrophils % 12 % (0-6) Lymphocytes % 3 % (9-44) Monocytes % 6 % (0-8) Eosinophils % 3 % (0-4) Neutrophils # (Manual) 13.0 TH/MM3 (1.8-7.7) Nucleated Red Blood Cells 1 /100 WBC (0-0) Differential Comment FINAL DIFF MANUAL Platelet Estimate LOW (NORMAL) Platelet Morphology Comment NORMAL (NORMAL) Polychromasia 2.9 % (0.0-1.9) Ovalocytes 1+ (NORMAL) Fibrinogen 208 mg/dL (227-377) Blood Type O POSITIVE Antibody Screen POSITIVE Crossmatch Leukocyte-Reduced Red Blood Cells Blood Bank Comment Test 01/01/17 01/01/17 01/02/17 01/02/17 11:53 19:27 04:35 07:41 Blood Bank Comment White Blood Count 13.9 TH/MM3 (4.0-11.0) Red Blood Count 1.90 MIL/MM3 (4.00-5.30) Hemoglobin 5.6 GM/DL (11.6-15.3) Hematocrit 17.7 % (35.0-46.0) Mean Corpuscular Volume 93.0 FL (80.0-100.0) Mean Corpuscular Hemoglobin 29.2 PG (27.0-34.0) Mean Corpuscular Hemoglobin 31.4 % Concent (32.0-36.0) Red Cell Distribution Width 19.7 % (11.6-17.2) Platelet Count 48 TH/MM3 (150-450) Mean Platelet Volume 12.2 FL (7.0-11.0) Prothrombin Time 15.6 SEC (9.8-11.6) Prothromb Time International 1.4 RATIO Ratio Fibrinogen 238 mg/dL (227-377) Blood Type O POSITIVE Crossmatch Leukocyte-Reduced Red Blood Cells Test 01/02/17 01/02/17 09:56 13:51 Blood Bank Comment Blood Gas Puncture Site RT RADIAL Blood Gas Patient Temperature 98.6 Blood Gas HCO3 6 mmol/L (22-26) Blood Gas Base Excess -23.6 mmol/L (-2-2) Blood Gas Oxygen Saturation 97 % (90-100) Arterial Blood pH 6.94 (7.380-7.420) Arterial Blood Partial 30 mmHg (38-42) Pressure CO2 Arterial Blood Partial 446 mmHg Pressure O2 (61-120) Arterial Blood Oxygen Content 10.0 Vol % (12.0-20.0) Arterial Blood 0.7 % (0-4) Carboxyhemoglobin Arterial Blood Methemoglobin 1.5 % (0-2) Blood Gas Hemoglobin 6.4 G/DL (12.0-16.0) Oxygen Delivery Device VENTILATOR Blood Gas Ventilator Setting [facility]/AC Blood Gas Inspired Oxygen 100 % . Result Diagram: 01/02/17 0435 12/30/16 0508 Microbiology Microbiology Date/Time Procedure Status Source Growth 01/01/17 11:39 Aerobic Blood Culture - Preliminary Resulted Blood Peripheral NO GROWTH IN 1 DAY 01/01/17 11:39 Anaerobic Blood Culture - Preliminary Resulted Blood Peripheral NO GROWTH IN 1 DAY 01/01/17 17:44 Aerobic Blood Culture - Preliminary Resulted Blood Peripheral NO GROWTH IN 1 DAY 01/01/17 17:44 Anaerobic Blood Culture - Preliminary Resulted Blood Peripheral NO GROWTH IN 1 DAY . Imaging Last Impressions Chest X-Ray 01/02/17 0000 Signed Impressions: Service Date/Time: Monday, January 02, 2017 11:18 - CONCLUSION: Slight increase in bilateral diffuse pulmonary opacity right greater than left. Likely represents pulmonary edema. José Luis Beltran MD Upper Extremity Ultrasound 12/14/16 0000 Signed Impressions: Service Date/Time: November 14:39 - CONCLUSION: Thrombus within the cephalic vein. KRadha Rodriguez MD Thoracentesis 12/01/16 0000 Signed Impressions: Service Date/Time: Thursday, December 01, 2016 18:56 - CONCLUSION: Uncomplicated CT-guided thoracentesis. Jeffery Alvarado MD Chest CT 12/01/16 0000 Signed Impressions: Service Date/Time: Thursday, December 01, 2016 13:09 - CONCLUSION: Bilateral pleural effusion, larger on the right than the left. Mack Cao MD FACR Abdomen/Pelvis CT 12/01/16 0000 Signed Impressions: Service Date/Time: Thursday, December 01, 2016 13:09 - CONCLUSION: 1. Right inguinal hernia containing only fluid. 2. Generalized anasarca. 3. Trace ascites. 4. Bilateral pleural effusions, larger on the right than the left. Mack Cao MD FACR Abdomen Ultrasound 11/27/16 0000 Signed Impressions: Service Date/Time: Sunday, November 27, 2016 08:35 - CONCLUSION: Stone in the neck of the gallbladder. Trace ascites and mild splenomegaly Jeffery Alvarado MD Gastrostomy Tube Placement 11/24/16 0000 Signed Impressions: Service Date/Time: Sunday, November 27, 2016 14:34 - CONCLUSION: Uncomplicated gastrostomy tube placement as above. Kirit Alcantar MD Head CT 11/08/16 1657 Signed Impressions: Service Date/Time: Tuesday, November 08, 2016 17:06 - CONCLUSION: Low density seen throughout the posterior circulation regions including the susan and midbrain, cerebellar hemispheres, occipital and posterior medial temporal lobes and right thalamus. This likely represents areas of infarction involving the posterior territory circulation. Jeffery Zhong MD Carotid Artery Ultrasound 11/08/16 0000 Signed Impressions: Service Date/Time: Tuesday, November 08, 2016 22:24 - CONCLUSION: Mild calcified plaque at the carotid bulbs. No evidence of hemodynamically significant carotid stenosis. José Luis Beltran MD . Procedures * Intubation/mechanical ventilation * Trach 11/23/16 * PEG tube placement * EGD 12/02/16 * EGD 12/13/16, with clipping of varices . . Assessment and Plan Disease Oriented Problem List: (1) CVA (cerebral vascular accident) Comment: Very large posterior circulation stroke. No signs of neurological recovery. Prognosis grim. . . (2) Dementia Comment: Family reports at least a 7 year history of dementia. . (3) Gastrointestinal hemorrhage Comment: EGD on 12/02/16 revealed a gastric ulcer and multiple duodenal AVMs. In spite of attempts to cauterize these via EGD, patient continues to bleed and pass melanotic stools. Multiple transfusions have been provided. . (4) Rhabdomyolysis Comment: Resolved. (5) Anemia (6) Malnutrition Comment: Presenting albumin level was 2.8 . (7) Urinary tract infection Comment: Cx of 11/08 --> E coli and Enterococcus; Cx 11/18 E. coli and Bironna . (8) Thrombocytopenia (9) Pneumonia Comment: Sputum cx of 11/12 grew Staph aureus. Sputum of 12/23/16 grew Klebsiella and Staph aureus. . . (10) GI bleeding, varices Comment: Varices clipped 12/13/16 (11) UTI (urinary tract infection) Comment: Urine of 12/23 grew out Enterobacter cloacae [facility] Symptom Scale: (1) Pain 0-10 Scale: Unable to quantify Comment: Patient had no known prior pain syndromes. Current possible sources of pain include prolonged bedbound status; vascular access catheters; Tejeda catheter. . (2) Dyspnea 0-10 Scale: Unable to quantify Comment: Dyspnea currently controlled with mechanical ventilation. . (3) Encephalopathy 0-10 Scale: Unable to quantify Comment: Patient was minimally responsive on arrival. No evidence of neurologic recovery. Her only response now is decerebrate posturing with stimulation. Off all sedation. . Pertinent Non-Medical Issues Psychosocial: Normally lives with her sister. Her son lives by visits frequently. Spiritual: Patient is a [employer]. The patient's son, Wyatt, has consented to multiple blood transfusions now telling us that the patient was not "devout" in terms of her believes as a [employer]. Legal: No advance directives. Son would be the appropriate proxy health care decision-maker under the [place] statutes hierarchy. Ethical issues impacting care: Patient is incapacitated to make her own health care decisions and is not expected to regain such capacity. Patient's care is deemed to be futile per the vast majority of medical team members. There are concerns that ongoing aggressive care will only serve to prolong and uncomfortable dying process. . . Important Contacts Wyatt Crawford (son and healthcare proxy) [phone] . Prognosis This is an 86-year-old female who was suffered a fairly massive posterior circulation stroke. This is on top of at least a seven-year history of dementia with the patient was already requiring assistance with most of her ADLs. There is a high risk of during this hospitalization. Should she survive, she will not have meaningful interaction with her environment. In spite of bleak prognosis, the patient's son has insisted on ongoing aggressive care. The patient has managed to remain alive but there is been no evidence of neurologic recovery. She is unresponsive except for decerebrate posturing with stimulation. She now is actively GI bleeding from a combination of a gastric ulcer and multiple duodenal AVMs. She has received multiple transfusions. It does not appear we will be able to stop this bleeding. She has developed multiple antigen issues with the blood. She is having recurrent infections of lungs, urine, blood. She is now developing resistant organisms. The patient would certainly be eligible for hospice services at such time that family believes the patient's goals would best be honored by transitioning to "comfort measures only." . . Code Status: Full Code Plan * FULL CODE: The patient's son changed his mind and asked that she be transitioned back to FULL CODE STATUS on 12/03/16 * DECISION-MAKING: The patient lacks capacity for decision-making, and she will not regain capacity. Her son, Wyatt Crawford, is the legal health care proxy. * GOALS: The patient is a [employer]. The son indicates now that she has not been devout and that is why he has agreed to multiple blood transfusions. Son has continued to ask for ongoing aggressive care and patient has now undergone both trach and PEG. * SYMPTOMS: It is difficult to know when she has pain or dyspnea, and we will continue to observe closely for signs of suffering. Certainly her bedbound status and recent procedures could be painful. No new med recommendations at this time. * Drs. Cartwright and Javad have requested a meeting of the bioethics committee to discuss this case. The patient's son was informed about this development and understood that we would like him to attend to explain to medical team members why he believes his mother would want ongoing aggressive care given the conversations he has had with the physicians. Wyatt seemed uninterested in attending and seemed to be avoiding but on 12/07/16 agreed to attend midday on 12/15/16. He has since called to say that day won't work and has avoided a meeting since. Unless Wyatt attends, the meeting will likely not have much to offer. * Wyatt said on 12/08 that he planned on stopping all transfusions on 12/19 or . He has let the day pass and continues to press for aggressive care alternative care. * Palliative care will continue to follow to assist with symptom management and to help clarify goals of medical treatment as the clinical course evolves. . . Attestation To help prompt me to consider important information that might be impacting today's encounter and assessment, information from prior notes written by myself or my colleagues may have been "brought forward" into today's note. My signature on this note, however, is an attestation that I personally performed the exam, history, and/or decision-making noted today, and, unless otherwise indicated, the interactions with patient, family, and staff as well as the review of records all occurred today. I also attest that the listed assessment and stated plan reflect my best clinical judgment today based on the combination of historical information, prior notes, and today's exam/ interactions. When time spent is documented, it refers only to time spent today by the signer, or if indicated, combined time spent today by collaborating physician/nurse practitioner. . Karlos Bauer MD January 02, 2017 15:46
[2017-01-02] MEDS: FLUCONAZOLE 400 MG PREMIX BAG 200 ML IV SCH (18:00)
[2017-01-02] MEDS ORDERED: EPINEPHrine HCL (1:10,000) 1 MG/10 ML SYRINGE ONE (18:24)
[2017-01-02] MEDS: CIPROFLOXACIN 400 MG PREMIX 200 ML IV SCH (18:45)
--- NOTE | 2017-01-02 18:55 | PD.PROCEDR ---
Procedure Note Procedure CPR Note: A code blue was called for PEA arrest. Patient is already on maximum dose of Levophed at 30 mics per minute, dopamine at 20 mics per KG per minute, and vasopressin at 0.04 IU. ACLS protocol was followed, CPR was initiated. Patient received epinephrine 2 and one amp of bicarb. About 8 minutes into the patient's son Wyatt called and asked us to stop CPR. CPR was stopped but at this time patient had agonal breathing and Dopplerable pulse, systolic blood pressure was 100. Patient was placed back on the ventilator and pressors were continued at the same rate. RN called son again- he advises no CPR. Will change CODE STATUS to alternate code intubation only Melchor Gil MD January 02, 2017 18:55
[2017-01-02 21:10] LABS: MEAN CORPUSCULAR HGB CONC 26.1 % (32.0-36.0)
[2017-01-03] VITALS (7 sets, daily range): BP systolic 46–56; BP diastolic 21–25; PULSE 35–39; RESP 17; O2SAT 0
[2017-01-03 04:46] LABS: MEAN CELL VOLUME 103.6 FL (80.0-100.0); MEAN CORPUSCULAR HEMOGLOBIN 27.1 PG (27.0-34.0); RED BLOOD COUNT 1.53 MIL/MM3 (4.00-5.30); RED CELL DISTRIBUTION WIDTH 23.2 % (11.6-17.2); WHITE BLOOD COUNT 12.5 TH/MM3 (4.0-11.0)
[2017-01-03 04:47] LABS: REVIEW FLAG FINAL
[2017-01-03 04:50] LABS: HEMATOCRIT 15.9 % (35.0-46.0); PLATELET COUNT 14 TH/MM3 (150-450)
[2017-01-03] MEDS: NOREPINEPHRINE 4 MG/D5W 250 ML IV SCH ×2 (04:51→08:24)
[2017-01-03 04:58] LABS: INTERNATIONAL NORMALIZED RATIO 3.2 RATIO; PROTHROMBIN TIME - PATIENT 37.5 SEC (9.8-11.6)
[2017-01-03 05:02] LABS: FIBRINOGEN LESS THAN 35 mg/dL (227-377)
[2017-01-03] MEDS: INSULIN NovoLIN REGULAR SUPPLEMENTAL SCALE SQ SCH (06:00)
[2017-01-03] MEDS: INSULIN DETEMIR 100 UNITS/ML VIAL SQ SCH (09:00)
--- NOTE | 2017-01-03 09:56 | HHI.CCPN ---
Subjective Remarks/Hospital Course This is an 86yF with per report no other past medical history who presented to the ER after she was found unresponsive in her bed. According to ER reports, her family saw her normal last night when she had a fall, with unknown LOC. At that point, he helped her back to bed. However, this morning she did not wake up. On arrival to the ER, she was unresponsive only withdrawing to pain. she was intubated for airway protection and a poor GCS. CT head demonstrated massive posterior-circulation ischemic stroke. The patient is currently intubated and unresponsive and cannot provide any additional history. 11/09: No acute changes overnight. Palliative care team has consult with the family regarding goals of care. Currently the patient's sedation fentanyl infusion has been turned off without any response from patient. The patient notably does withdrawal to pain. 11/10: No change in neurological status. [id number]. The patient withdraws to pain 4 extremities. The patient currently on no sedation, fentanyl infusion discontinued yesterday. Tube feeds were initiated. The patient's urine culture grew back Escherichia coli, the patient was started on antibiotics. Extensive discussion with son regarding patient's neurological status, son Wyatt has had extensive discussion with palliative care.The son feels that yesterday when the patient was spoken to in [place] the patient squeezed his hand and desires aggressive treatment. The patient's neuro status is unchanged, totally unresponsive with occasional reflexive twitching of feet B/L. Follow-up with neurology Dr. Pack, guarding any further imaging studies. 11/13: No change in neuro exam. Palliative care following. Family wanting full aggressive care. Palliative care will address early trach PEG 11/14: No improvement in neuro status. Son has not made decisions regarding trach and PEG. Apparently he wants to wait longer to see any improvement 11/15: Remains unresponsive. Neuro exam with extensor posturing-unchanged. Son requesting aggressive care. Continues to have low-grade fever 11/16: Clinically no improvement. Tolerates CPAP. Unable to extubate as patient will not protect airway 11/17: Tolerating C Pap but no change in neuro exam. Hemoglobin noted to be 6.8 hemodynamically stable 11/18: Became tachycardic and hypotensive early a.m., placed on assist control. Otherwise neuro exam remains unchanged 11/19: Continues to spike fever Tmax 102, started on vancomycin and cefepime in addition to Levaquin yesterday. Currently only low-grade fever. Received 2 units of blood for hemoglobin of 5.3. CBC pending at this time. No improvement in neuro exam 11/20: White count is 18.3 today, MAXIMUM TEMPERATURE 103.1. Chest x-ray showing right sided infiltrate. Urine culture with gram-negative rods and Brionna albicans. ID consulted Diflucan added 11/21/16: Tmax 101.5. Bilateral lung infiltrates, R>L but slightly improved. No improvement in neuro exam. ID consulted and following. 11/22/16: No fever. CT chest- moderate to large R pleural effusion, bilateral lung infiltrates. ABX per ID. CXR today shows increasing bilateral infiltrates and effusion right more than left. Almost near complete infiltrates on the right lung [place]. Vaginally worsening creatinine today 1.45 indicating multiorgan failure 11/23/16: Hb 9.8 today after 2U PRBC yesterday. Plan for tracheostomy today. INR normal platelet count 116. Worsening creatinine today is 1.6. UO 550 ml in 24 hours. 1L NS bolus and 75 ml per hour maintenance NS. Started on Dopamine 3 mcg per min to maintain MAP>65 11/24 Patient is on ventilator via trach. Afebrile. On Dopamine 4 mics. 11/25 No acute events overnight. s/p EGD yesterday showed mild gastritis unable to place PEG tube endoscopically. Remains on Dopamine 4 mics. On no sedation unresponsive. 11/26 No acute events overnight. On CPAP with PS 20, PEEP: 5 and FIO2 40%. Afebrile. Off Dopamine. Afebrile. 11/27 Patient remains on ventilator via trach on no drips. Afebrile. For PEG tube placement by IR today. 11/28 Patient s/p PEG tube placement by IR yesterday, s/p Right thoracentesis with removal 700ml CXR showed better aeration of lungs, Hgb 6.7 this morning 2units PRBC ordered. Renal function worse with Cr: 3.40 from 2.85 . 11/29: Remains encephalopathic on mechanical ventilation via tracheostomy. 11/30: Remains encephalopathic on mechanical ventilation via tracheostomy. 12/01 Patient s/p transfusion 1unit PRBC last night for Hgb 5.8 in addition to 2L NS. Hgb 6.5 this morning. 12/02: Afebrile. The patient underwent CT-guided thoracentesis yesterday with approximately 600 cc removed. Chest x-ray pending this a.m.. Patient received packed red blood cell 2 units yesterday. Hemoglobin 7.4. Pending EGD today. 12/03:The patient underwent EGD yesterday with Dr. Farnsworth patient was noted to have a large active bleeding ulcer in the body of the stomach, multiple AVMs. Multiple ablations performed. This a.m. hemoglobin dropped to 6.1, platelet count 38. The patient was transfused 2 PRBC, and a unit of platelets. Patient still not relieved receiving any nutrition will begin PPN today. The patient continues to have copious amounts of melena with fecal incontinence apparatus in place. 12/04: The patient continues to have copious melena. PT INR drawn last evening INR was noted to be 13.5. The patient received KCentra, and current INR 1.3 the family requests aggressive measures to be continued. No further interventions from gastroenterology per . IR deemed the patient not a candidate for arteriography or endovascular treatment. 12/05: Patient's current medical status unchanged. Large tarry stools, acute blood loss anemia continues in conjunction with thrombocytopenia. During the night the nurse reported a malodorous scent was noted in free water flush container for instillation through G-tube. It was noted to be possibly fish oil , patient's son was in the room during that time. Container removed. The patient is noted to have a hemoglobin level of 5.8 today will receive 2 units of packed red blood cells and 1 unit of platelets today. 12/06: The patient continues to have copious melena. The patient received one 6 pack of platelets, and 2 units of blood yesterday. Tonight as reported by the nurse in the evening the son continue to utilize fish oil in the patient's free water, which was removed by the nurse. Ethics committee consult was initiated with Dr. Bauer yesterday, regarding assessing goals of care. 12/07: The patient's INR 1.3. Patient received 2 units of blood and one 6 pack of platelets yesterday. Awaiting ethics committee meeting with Dr. Bauer. The patient continues to require transfusions. 4/14: Patient was noted to have a drop in hemoglobin this a.m.. The patient is being transfused 2 units of PRBCs, with noted difficulty obtaining unit secondary to antibodies. Hematology will be consulted. Bioethics committee meeting planned to convene in one week, patient's son has agreed to attend. 12/09: Afebrile. No change in neuro status. Wound Care consult for left and blisters on back, orders provided. Hemoglobin stable post 2 units packed red blood cells yesterday. 12/10: The patient's hemoglobin 7.6 yesterday, hemoglobin pending for today. Overnight RN reported family member son continually putting some chemicals in the gastric tube of the patient, risk management notified. Hematology oncology has evaluated the patient, awaiting bioethics committee meeting scheduled for next week. The patient continues on PPN for nutritional support. 12/11 Patient remains on ventilator via trach on no sedation unresponsive. Afebrile.On Protonix drip and PPN. 12/12 No acute events overnight. Afebrile. Hgb 6.8 this morning 2 units PRBC ordered . 12/13 Patient remains on ventilator via trach, s/p transfusion 2units PRBC yesterday Hgb 9.1 this morning. Afebrile. On Protonix drip. 12/14 Patient s/p EGD yesterday which showed esophageal varices and hiatal hernia. On Ventilator via trach. H/H stable. On Protonix drip. 12/15 No acute events overnight. Afebrile. 12/16 Patient remains on ventilator via trach. Afebrile. 12/17 No acute events overnight. Afebrile. 12/18 Patient remains on ventilator via trach. Afebrile. Renal function continue to decline with Cr: 3.2 today from 3.0 with UO 805ml in 24 hrs. Afebrile. 12/19 No acute events overnight. Patient was given 2units Cryo and Vitamin K 5mg x1 by heme. On CPAP with FIO2 30%. Afebrile. Cr: 3.16 from 3.20 with UOP 1150ml in 24 hrs. 12/20: Neuro status remains unchanged. Had some black tarry stools reportedly. 12/21: Remains encephalopathic, on mechanical ventilation via tracheostomy. Hemoglobin dropped to 6.7 today. Has some black tarry stools. Being transfused 1 unit PRBCs. 12/22: Remains encephalopathic, on mechanical ventilation via tracheostomy. 12/23: Remains encephalopathic. On mechanical ventilation via trach. Hemoglobin 7.4 this morning. 1 unit PRBCs ordered. 12/24: Remains encephalopathic on mechanical ventilation. Transfuse 2 units PRBCs yesterday. 12/25: Remains encephalopathic on mechanical ventilation. Hemoglobin drifting down. 12/26: Remains on mechanical ventilation via tracheostomy. Being transfused 1 unit PRBCs today for drop in hemoglobin. 12/27: Remains encephalopathic, on mechanical ventilation via tracheostomy. Now has fungemia and KPC in urine. Transfused 2 units PRBCs today 12/28: Patient remains on mechanical ventilation change in mental status. ID following, Dr. Wen. 12/29: Hemoglobin was noted to be 6.6 this a.m., the patient was transfused 2 units of packed red blood cells. Posttransfusion CBC pending. Patient continues to have black tarry stools. 12/30: Platelet count low, patient to receive 2 units of platelets and cryoprecipitate today. The patient is hypothermic requiring warming devices to maintain temperature. MAP remains in the 60s. Patient continued continues to have copious black tarry, bloody stools. Sodium level 152 today will resume D5W. Tejeda changed, peripheral IVs/ lines changed yesterday. 12/31: Recent continues to be thrombocytopenic with a platelet count today of 41. Patient to receive 2 units of platelets, Hemoglobin is noted to be 4.7 will receive 3 units of packed red blood cells. INR pending. Fibrinogen level within normal limits. The patient remains encephalopathic. 01/01: The patient continues to be coagulopathic, now requiring daily repletion of factors. Remains encephalopathic. Last night was noted steady stream of blood flowing from PEG tube. 01/02: The patient continues to be coagulopathic, hemoglobin 5.6 this a.m. after receiving 2 units of FFP 1 unit of cryoprecipitate 2 units of packed red blood cells yesterday. Patient scheduled to receive 2 units of packed cells, 22 units of platelets, 1 unit of cryoprecipitate this a.m.. The patient has been noted to become hypotensive and has been on phenylephrine maximum doses MAP remains in the high 40s. The patient was additionally placed on Levophed, vasopressin. Patient was noted to have poor oxygenation as well a stat chest x- ray has been performed results pending, ABG has been performed results pending. Blood transfusions are continued, and the patient continues to bleed. Multiple attempts of calling son Wyatt this morning to update him on patient's medical status were unsuccessful. 01/03: The patient coded last night, several rounds of CPR was initiated, with resultant blood pressure. The patient was made a DNR by son after the event. The patient's hemoglobin this morning was noted to be 4.1. The patient has continued to received blood products. Heart rate has been in the low 40s all night. Objective Vital Signs Date Time Temp Pulse Resp B/P Pulse Ox O2 Delivery O2 Flow Rate FiO2 01/03/17 06:00 35 01/03/17 04:11 0 100 01/03/17 04:00 17 46/25 01/02/17 17:30 98.0 Intake and Output 01/02/17 01/02/17 01/03/17 08:00 16:00 00:00 Intake Total 885 ml 2377 ml 3262 ml Output Total 25 ml 15 ml 0 ml Balance 860 ml 2362 ml 3262 ml Result Diagram: 01/03/17 0349 12/30/16 0508 Other Results Laboratory Tests Test 01/02/17 13:51 Blood Gas Puncture Site RT RADIAL Blood Gas Patient Temperature 98.6 Blood Gas HCO3 6 mmol/L (22-26) Blood Gas Base Excess -23.6 mmol/L (-2-2) Blood Gas Oxygen Saturation 97 % (90-100) Arterial Blood pH 6.94 (7.380-7.420) Arterial Blood Partial 30 mmHg (38-42) Pressure CO2 Arterial Blood Partial 446 mmHg Pressure O2 (61-120) Arterial Blood Oxygen Content 10.0 Vol % (12.0-20.0) Arterial Blood 0.7 % (0-4) Carboxyhemoglobin Arterial Blood Methemoglobin 1.5 % (0-2) Blood Gas Hemoglobin 6.4 G/DL (12.0-16.0) Oxygen Delivery Device VENTILATOR Blood Gas Ventilator Setting PRVC/AC Blood Gas Inspired Oxygen 100 % Imaging Last Impressions Chest X-Ray 12/15/16 0000 Signed Impressions: Service Date/Time: Thursday, December 15, 2016 10:46 - CONCLUSION: No appreciable change. Belkis Rodriguez MD Upper Extremity Ultrasound 12/14/16 0000 Signed Impressions: Service Date/Time: November 14:39 - CONCLUSION: Thrombus within the cephalic vein. Belkis Rodriguez MD Thoracentesis 12/01/16 0000 Signed Impressions: Service Date/Time: Thursday, December 01, 2016 18:56 - CONCLUSION: Uncomplicated CT-guided thoracentesis. Jeffery Alvarado MD Chest CT 12/01/16 Signed Impressions: Service Date/Time: Thursday, December 01, 2016 13:09 - CONCLUSION: Bilateral pleural effusion, larger on the right than the left. Mack Cao MD FACR Abdomen/Pelvis CT 12/01/16 Signed Impressions: Service Date/Time: Thursday, December 01, 2016 13:09 - CONCLUSION: 1. Right inguinal hernia containing only fluid. 2. Generalized anasarca. 3. Trace ascites. 4. Bilateral pleural effusions, larger on the right than the left. Mack Cao MD FACR Abdomen Ultrasound 11/27/16 Signed Impressions: Service Date/Time: Sunday, November 27, 2016 08:35 - CONCLUSION: Stone in the neck of the gallbladder. Trace ascites and mild splenomegaly Jeffery Alvarado MD Gastrostomy Tube Placement 11/24/16 Signed Impressions: Service Date/Time: Sunday, November 27, 2016 14:34 - CONCLUSION: Uncomplicated gastrostomy tube placement as above. Kirit Alcantar MD Head CT 11/08/16 1657 Signed Impressions: Service Date/Time: Tuesday, November 08, 2016 17:06 - CONCLUSION: Low density seen throughout the posterior circulation regions including the ssuan and midbrain, cerebellar hemispheres, occipital and posterior medial temporal lobes and right thalamus. This likely represents areas of infarction involving the posterior territory circulation. Jeffery Zhong MD Carotid Artery Ultrasound 11/08/16 0000 Signed Impressions: Service Date/Time: Tuesday, November 08, 2016 22:24 - CONCLUSION: Mild calcified plaque at the carotid bulbs. No evidence of hemodynamically significant carotid stenosis. José Luis Beltran MD Objective Remarks GENERAL: Patient is 86 yo on ventilator via trach. SKIN: Warm and dry. HEAD: Normocephalic. EYES: Pallor present, No scleral icterus. No injection or drainage. NECK: Supple, trachea midline. No JVD or lymphadenopathy. CARDIOVASCULAR: Regular rate and rhythm without murmurs, gallops, or rubs. RESPIRATORY: Breath sounds equal bilaterally. Clear to auscultation. 8.0 trach in situ GASTROINTESTINAL: Abdomen soft, non-tender, nondistended. PEG tube in situ, bloody output MUSCULOSKELETAL: No cyanosis, peripheral 2+ edema bilateral upper extremities. Neuro: GCS 3T LIDYA. Negative cough. Negative gag. Extensor posturing in uppers. Downgoing Babinski. 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 She was last seen normal, nearly 24 hours, she was not a candidate for any interventional therapy. Unfortunately, given her age, and the extent of the stroke, her prognosis for any reasonable neurologic function is quite poor. Active GI bleed discussed with family, and patient's poor prognosis. Her family continues to express wishes for aggressive medical management. Bioethics has been consulted, with no resolution . Active problems: Massive posterior circulation ischemic CVA Hypoxic and hypercarbic respiratory failure Severe encephalopathy secondary to stroke Severe sepsis Fungemia Healthcare associated pneumonia with pleural effusion Acute kidney injury UTI Anemia-acute and chronic Hyperglycemia of critical illness Thrombocytopenia Active GI bleed with AVM's Hypothermia DIC Hypotension secondary to acute blood loss anemia Sinus bradycardia Hypoxia Plan Neuro: Monitor neuro status per ICU protocol. Remains comatose - Avoid sedatives. Neuro is following -11/08 CT brain: Low density seen throughout the posterior circulation regions including the susan and midbrain, cerebellar hemispheres, occipital and posterior medial temporal lobes and right thalamus. This likely represents areas of infarction involving the posterior territory circulation Resp: -Continue with vent support keep sat >92% Vent bundle, Head of bed 30, bronchodilators-scheduled -s/p trach 11/23, pulm toilet, trach care -SBT /CPAP trials daily as lia. -s/p CT guided right thoracentesis 11/27 with removal 700ml clear fluid. -Obtain stat ABG, a chin currently on 100% FiO2 -Follow-up chest x-ray [facility]: Monitor HR and BP keep MAP>60mmhg, will initiate low-dose Phenylephrine (if necessary for map greater than 60) 2-D echo -EF 5560 %, mild aortic mitral and tricuspid regurgitation, No RWMA. 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 --IR intervention-patient is not a candidate. On Protonix 40 mg IV every 12 hourly -s/p PEG tube placement by IR 11/27 , -s/p EGD 11/24 showed mild gastritis unable to place PEG tube endoscopically. -Monitor LFT's, US abdomen: Stone in neck of gall bladder, no hydronephrosis -12/01 CT abdomen/pelvis-generalized anasarca, trace ascites, bilateral pleural effusions right greater than left Continues to have recurrent GI bleeding. No further intervention planned except transfusions in view of extremely poor prognosis with no likelihood of meaningful recovery. Tube feeds as tolerated. -Copious melanotic stools continue-continuing multiple transfusions, now copious output from PEG tube, blood transfusions continue : -Monitor renal function, I/O's, electrolytes replacement as needed. Avoid nephrotoxins -Rising BUN creatinine noted. Being followed by nephrology. Not a candidate for dialysis -Tejeda changed 12/29 ID: - Resumed cefepime on 12/23 after stringer cultures for hypothermia and hypotension for suspected sepsis. Blood cultures growing Brionna para up cillosis and urine cultures with ESBL positive/KPC bacteruria -Reconsulted ID Dr. Wen. Cefepime stopped and started on Cipro and fluconazole IV on 12/27 per ID. -Tejeda replaced 12/28 Heme Monitor CBC. On Fe Sulfate 300mg BID s/p Vitamin K 5mg x1 and 2 units Cryo. Follow coags per Hematology Hematology is following-Dr. Alaniz. On Epogen M,W,F. Heme is following Hep Plt ab negative. Transfuse PRBCs to keep hemoglobin above 7 g percent Severe anemia, thrombocytopeniablood and platelets infusing. Fibrinogen level subtherapuetic 01/01 Give FFP 2 units, Plts 2 iunits, PRBC 2units, Cryo Endo: --SSI High scale , [id number] u Q12 Msk: --Red and sacral area, left heel wound --12/06 Wound care consulted --Specialty bed-Airflow Proph: Subcutaneous heparin on hold since 11/23 secondary to thrombocytopenia, anemia and GI bleed. SCDs for DVT prophylaxis Protonix for GI prophylaxis RUE US.Thrombus in cephalic veins Not on AC due to GI bleed , anemia requiring blood transfusion and thrombocytopenia with PLT <50 Poor prognosis. -Palliative care is following. Son wishes to continue aggressive medical care despite being informed about extremely poor prognosis with no chance of meaningful recovery. IV access: Peripheral IV's replaced 12/28 Condition critical This patient remains critically ill with one or more organ systems which are or may become a threat to life. I have spent in excess of 35 minutes discontinuously in the care and management of this patient. This time is exclusive of procedures, and includes, but is not limited to, evaluation of the patient, review of the medical record, discussions with family, consultants, nursing staff, or respiratory therapy, and documentation in the medical record. 01/02: The patient's son Wyatt telephoned, I updated him and explained that the patient's blood pressure was dropping and having difficulty oxygenating the patient she was in a severe critical condition eminent CPR probable. I informed him that we were continuing to transfuse the patient due to acute blood loss, and that we were on 100% oxygen attempting to oxygenate. I informed him that the 3 vasopressor medications were at maximum dosage, it doesn't appear that the patient is responding. I reiterated that there was no chance of meaningful recovery. Wyatt requested that I give the patient fish oil to make her better. " And that she was doing better when she was receiving the fish oil several weeks ago." I reiterated to Wyatt that that was not a part of a protocol for resuscitation and he continued to request that I provide fish oil to the patient. Wyatt then inquired if there was a possibility that the patient contracted HIV or hepatitis via blood transfusions. I provided him statistics. He then asked to speak to his mother via telephone, and the request was granted by the GEOSCIENCE LABORATORY TECHNICIAN. 01/02 evening 1900-patient was made a DNR CODE STATUS, after CPR was initiated and resumption of pulse and blood pressure last evening. Discussed with GEOSCIENCE LABORATORY TECHNICIAN at bedside. Physician Aysha Raymundo MD January 03, 2017 09:56
[2017-01-03] MEDS: [UNRECOGNIZED DRUG - REMARK] IV SCH ×2 (10:46)
--- NOTE | 2017-01-03 11:39 | HHI.HCPN ---
7am: Call from son Wyatt to report patient "flat lined" last night to ask if I was aware. I advised I was not at the hospital and had not seen the patient recently. He sees that she is still alive as a sign she wants to live. He is asking me to notify the medical team to [employer] "Fish Oil saved my son's life." He requests the medical team administer fish oil and reports "time is of the essence." Advised I will not be in the hospital for a few hours and will speak with the medical team. He also indicates he wants her moved to LTAC. I explained she will not be able to be moved to LTAC as she is medically unstable. 11:38am: Message from son to again request fish oil to help heal her brain. I called back and conversation witnessed by DAWNA Shaffer. Wyatt continues to ask for fish oil to be given. I advised fish oil is contraindicated in due to increased risk of bleeding in this patient with hemoglobin 4.1 and platelets of 14 and fibrinogen less than 35. I provided medical update, explained she is dying. Her heart is failing, she remains on 3 pressors with heart rate 30-40 with long pauses detected by monitor as asystole. BP 99 systolic. No detectable oxygen saturation. Again advised medical team is doing everything they can, but she is going to . He says he tried to let her go last night. Offered support. . ZAIN TITUS January 03, 2017 11:39
--- NOTE | 2017-01-03 13:04 | HHI.NPPN ---
Subjective History of Present Illness 86 year old with CVA, Resp failure s/p Trach/ PEG Additional Remarks Patient coded, status post resuscitation heart rate in 30s to 40 Objective Data Data 01/02/17 01/03/17 19:00 07:00 Intake Total 3319 ml 4255 ml Output Total 15 ml 0 ml Balance 3304 ml 4255 ml IV Total 2369 ml 4135 ml Packed Cells 500 ml FFP 300 ml Other 150 ml 120 ml Output Urine Total 15 ml 0 ml # Bowel Movements 0 0 Vital Signs Date Time Temp Pulse Resp B/P Pulse Ox O2 Delivery O2 Flow Rate FiO2 01/03/17 06:00 35 01/03/17 04:11 0 100 01/03/17 04:00 39 17 46/25 01/03/17 04:00 100 01/03/17 04:00 37 01/03/17 02:00 37 01/03/17 01:44 0 100 01/03/17 00:00 37 17 56/21 01/03/17 00:00 37 01/03/17 00:00 100 01/02/17 22:26 0 100 01/02/17 22:00 37 01/02/17 21:26 36 10 56/23 01/02/17 21:20 36 12 61/27 01/02/17 21:15 36 11 62/27 01/02/17 21:11 36 9 67/29 01/02/17 21:06 36 9 70/30 01/02/17 21:00 36 10 57/23 01/02/17 20:55 0 100 01/02/17 20:55 36 9 60/24 01/02/17 20:50 36 11 57/22 01/02/17 20:46 35 10 55/21 01/02/17 20:45 36 11 01/02/17 20:40 36 12 54/28 01/02/17 20:35 42 13 55/24 01/02/17 20:30 36 13 49/20 01/02/17 20:25 36 15 54/21 01/02/17 20:20 37 14 55/22 01/02/17 20:15 37 17 56/22 01/02/17 20:11 37 15 56/21 01/02/17 20:05 37 20 52/21 01/02/17 20:00 100 01/02/17 20:00 36 01/02/17 20:00 16 17 56/23 01/02/17 20:00 37 14 56/23 01/02/17 18:55 47 13 87/43 01/02/17 18:54 47 13 83/37 01/02/17 18:50 51 11 85/42 01/02/17 18:48 53 11 88/39 01/02/17 18:45 58 10 01/02/17 18:40 60 19 01/02/17 18:38 60 6 103/46 01/02/17 18:35 0 37 01/02/17 18:30 0 109 01/02/17 18:25 37 14 01/02/17 18:20 38 9 01/02/17 18:15 38 22 01/02/17 18:10 38 9 01/02/17 18:05 37 10 01/02/17 18:02 37 01/02/17 18:00 37 10 65/29 01/02/17 17:55 38 13 01/02/17 17:50 38 10 01/02/17 17:45 38 11 68/31 01/02/17 17:40 39 10 01/02/17 17:30 39 17 63/29 01/02/17 17:30 98.0 01/02/17 17:15 42 21 68/30 01/02/17 17:00 42 13 59/25 01/02/17 16:45 42 12 60/25 01/02/17 16:31 43 11 60/26 01/02/17 16:30 43 10 01/02/17 16:15 43 13 64/30 17 16:00 100 01/02/17 16:00 43 17 16:00 44 10 61/26 01/02/17 15:45 45 9 62/28 17 15:30 43 10 65/30 01/02/17 15:19 0 100 01/02/17 15:15 43 12 67/31 01/02/17 15:00 44 8 66/28 01/02/17 14:45 39 10 67/32 01/02/17 14:30 40 7 69/33 01/02/17 14:15 41 9 71/40 01/02/17 14:01 44 8 77/49 01/02/17 14:00 45 9 01/02/17 14:00 43 01/02/17 13:45 44 10 69/32 94 01/02/17 13:30 42 9 71/32 88 01/02/17 13:15 41 9 70/31 85 -: 01/03/17 0349 12/30/16 0508 Physical Exam Eyes Eye Exam: Pupils Equal Throat Throat Exam: Oral Mucosa Malcolm & Moist Neck Neck Remarks s/p trach Pulmonary Resp Exam: Crackles, Rhonchi, Decreased Bases, Diminished Breath Sounds, Poor Inspiratory Effort Cardiology CV Exam: Tachycardia Gastrointestinal/Abdomen GI Exam: Soft, Non-Tender Extremeties Extremities Exam: Moderate Edema Neurologic Neuro Exam: Sedated Assessment/Plan Problem List: (1) Acute renal failure Plan: Non oliguric renal failure. Demonstrates volume overload. Liver failure. . On D5W at 30 ml/hour. 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 Ongoing anemia, continue to monitor. getting PRBC on regular interval no hope of recovery agree with other consultants, she may not survive this and her prognosis is poor BUN/cr higher as of 12/30 Low Hb low BP several PRBC Poor prognosis on Cipro/ Diflucan UOP poor on multiorgan failure SBP is low status post CODE BLUE agree with Palliative care ethics meeting with son as futile care with hopeless situation and no chance of meaningful recovery. poor UOP with BP crashing is imminent Now getting transfusion, BP is low. Prognosis is poor. Son is aware (2) Metabolic acidosis Plan: Stable, continue to monitor (3) Pneumonia Plan: On vent treated earlier with antibiotic (4) Urinary tract infection Plan: Escherichia coli she was treated (5) CVA (cerebral vascular accident) Plan: Massive stroke neurology following (6) Rhabdomyolysis Plan: This resolved (7) Hypernatremia Plan: Continue to monitor, repeat as necessary (8) Gastrointestinal hemorrhage Plan: Multiple PRBC given AVM poor prognosis Plan Poor prognosis. Problem Qualifiers (1) Acute renal failure: Qualified Code: N17.9 - Acute renal failure, unspecified acute renal failure type (2) CVA (cerebral vascular accident): Qualified Code: I63.9 - Cerebrovascular accident (CVA), unspecified mechanism (3) Rhabdomyolysis: Qualified Code: M62.82 - Non-traumatic rhabdomyolysis Kristel Zuniga MD January 03, 2017 13:04
--- NOTE | 2017-01-03 15:07 | PD.ONC.PN ---
Subjective Subjective Remarks Per RN pt coded overnight and ACLS protocol was enacted. She had return of spontaneous circulation, but the son was called and she was made a DNR. Today she has maintained a BP with systolic in the 40's, HR in the 30's. Objective Data Date Time Temp Pulse Resp B/P Pulse Ox O2 Delivery O2 Flow Rate FiO2 01/03/17 14:51 0 100 01/03/17 06:00 35 01/03/17 04:11 0 100 01/03/17 04:00 39 17 46/25 01/03/17 04:00 100 01/03/17 04:00 37 01/03/17 02:00 37 01/03/17 01:44 0 100 01/03/17 00:00 37 17 56/21 01/03/17 00:00 37 01/03/17 00:00 100 01/02/17 22:26 0 100 01/02/17 22:00 37 01/02/17 21:26 36 10 56/23 01/02/17 21:20 36 12 61/27 01/02/17 21:15 36 11 62/27 01/02/17 21:11 36 9 67/29 01/02/17 21:06 36 9 70/30 01/02/17 21:00 36 10 57/23 01/02/17 20:55 0 100 01/02/17 20:55 36 9 60/24 01/02/17 20:50 36 11 57/22 01/02/17 20:46 35 10 55/21 01/02/17 20:45 36 11 01/02/17 20:40 36 12 54/28 01/02/17 20:35 42 13 55/24 01/02/17 20:30 36 13 49/20 01/02/17 20:25 36 15 54/21 01/02/17 20:20 37 14 55/22 01/02/17 20:15 37 17 56/22 01/02/17 20:11 37 15 56/21 01/02/17 20:05 37 20 52/21 01/02/17 20:00 100 01/02/17 20:00 36 01/02/17 20:00 16 17 56/23 01/02/17 20:00 37 14 56/23 01/02/17 18:55 47 13 87/43 01/02/17 18:54 47 13 83/37 01/02/17 18:50 51 11 85/42 01/02/17 18:48 53 11 88/39 01/02/17 18:45 58 10 01/02/17 18:40 60 19 01/02/17 18:38 60 6 103/46 01/02/17 18:35 0 37 01/02/17 18:30 0 109 01/02/17 18:25 37 14 01/02/17 18:20 38 9 01/02/17 18:15 38 22 01/02/17 18:10 38 9 01/02/17 18:05 37 10 01/02/17 18:02 37 01/02/17 18:00 37 10 65/29 01/02/17 17:55 38 13 01/02/17 17:50 38 10 01/02/17 17:45 38 11 68/31 01/02/17 17:40 39 10 01/02/17 17:30 39 17 63/29 01/02/17 17:30 98.0 01/02/17 17:15 42 21 68/30 01/02/17 17:00 42 13 59/25 01/02/17 16:45 42 12 60/25 01/02/17 16:31 43 11 60/26 01/02/17 16:30 43 10 01/02/17 16:15 43 13 64/30 01/02/17 16:00 100 01/02/17 16:00 43 01/02/17 16:00 44 10 61/26 01/02/17 15:45 45 9 62/28 01/02/17 15:30 43 10 65/30 01/02/17 15:19 0 100 01/02/17 15:15 43 12 67/31 01/03/17 01/03/17 01/03/17 07:00 15:00 23:00 Intake Total 1935 ml Output Total 0 ml Balance 1935 ml Result Diagram: 01/03/17 0349 12/30/16 0508 Laboratory Results Laboratory Tests Test 01/03/17 01/03/17 01/03/17 03:49 07:50 08:09 White Blood Count 12.5 TH/MM3 Red Blood Count 1.53 MIL/MM3 Hemoglobin 4.1 GM/DL Hematocrit 15.9 % Mean Corpuscular Volume 103.6 FL Mean Corpuscular Hemoglobin 27.1 PG Mean Corpuscular Hemoglobin 26.1 % Concent Red Cell Distribution Width 23.2 % Platelet Count 14 TH/MM3 Mean Platelet Volume 9.9 FL Prothrombin Time 37.5 SEC Prothromb Time International 3.2 RATIO Ratio Fibrinogen LESS THAN 35 mg/dL Blood Type O POSITIVE Crossmatch Leukocyte-Reduced Red Blood Cells Blood Bank Comment Culture Results Microbiology Date/Time Procedure Status Source Growth 01/01/17 11:39 Aerobic Blood Culture - Preliminary Resulted Blood Peripheral NO GROWTH IN 2 DAYS 01/01/17 11:39 Anaerobic Blood Culture - Preliminary Resulted Blood Peripheral NO GROWTH IN 2 DAYS 01/01/17 17:44 Aerobic Blood Culture - Preliminary Resulted Blood Peripheral NO GROWTH IN 2 DAYS 01/01/17 17:44 Anaerobic Blood Culture - Preliminary Resulted Blood Peripheral NO GROWTH IN 2 DAYS Administered Medications Medications (Trade) Dose Ordered Sig/Swati Route PRN Reason Start Time Stop Time Status Last Admin Dose Admin Chlorhexidine Gluconate (Peridex 0.12% Liq) 15 ml BID@08,20 MT 11/08/16 20:00 01/02/17 21:14 IV Flush (NS Flush) 2 ml BID IV FLUSH 11/08/16 21:00 01/01/17 21:00 Ondansetron HCl (Zofran Inj) 4 mg Q6H PRN IV NAUSEA OR VOMITING 11/08/16 19:45 11/30/16 21:43 Heparin Sodium (Porcine) (Heparin Inj) 5,000 units Q12H SQ 11/08/16 20:00 Hold 11/23/16 20:02 Chlorhexidine Gluconate (Chlorhexidine 2% Cloth) Taper DAILY@04 TOP 11/09/16 04:00 11/05/17 03:59 01/01/17 01:42 Artificial Tears (Tears Naturale Opth Soln) 1 drop TID EACH EYE 11/09/16 18:00 01/02/17 18:00 Ferrous Sulfate (Ferrous Sulfate Liq) 300 mg BID PO 11/11/16 09:00 01/02/17 21:12 Acetaminophen (Tylenol 650 Mg/ 20 ml Liq) 650 mg Q4H PRN OG-[id number] TEMP>101 11/12/16 17:00 11/21/16 04:43 Hyoscyamine Sulfate (Levsin Liq) 0.25 mg Q6H PRN PO ORAL SECRETIONS 11/30/16 16:00 12/25/16 08:54 Pantoprazole Sodium (Protonix Inj) 40 mg Q12H IV PUSH 12/15/16 11:00 01/02/17 11:00 Insulin Detemir (Levemir Inj) 10 units Q12HR SQ 12/19/16 09:00 01/02/17 21:13 Dextrose (D50w (Vial) Inj) 25 ml UNSCH PRN IV PUSH HYPOGLYCEMIA-SEE COMMENTS 12/19/16 06:45 01/01/17 17:43 Insulin Human Regular 1 1 Q6HR SQ 12/19/16 06:45 01/03/17 06:00 Dextrose 1,000 ml @ 30 mls/hr Q24H IV 12/23/16 09:45 01/02/17 09:45 Fluconazole/ Sodium Chloride 200 ml @ 100 mls/hr Q24H IV 12/27/16 18:00 01/02/17 18:00 Ciprofloxacin/ Dextrose 200 ml @ 200 mls/hr Q24H IV 12/27/16 18:45 01/01/17 17:39 Phenylephrine HCl 40 mg/Dextrose 500 ml @ 0 mls/hr TITRATE IV 01/01/17 17:30 01/02/17 06:00 Dopamine HCl/ Dextrose 500 ml @ 0 mls/hr TITRATE IV 01/02/17 05:15 01/02/17 21:33 Vasopressin 40 units/Dextrose 100 ml @ 6 mls/hr [id number] IV 01/02/17 13:45 01/03/17 10:46 Norepinephrine Bitartrate (Levophed-Dextrose Drip) 250 ml @ 0 mls/hr TITRATE IV 01/02/17 18:00 01/03/17 08:24 Objective Remarks GENERAL: Acutely ill female lying supine in bed, trach'd, PEG and on mechanical ventilation.. SKIN: Warm and dry. Weeping from multiple areas. HEAD: Normocephalic. EYES: No injection or drainage. NECK: Tracheostomy. Dried blood noted around insertion. CARDIOVASCULAR: +S1/S2 RESPIRATORY: Rhonchi throughout. GASTROINTESTINAL: Abdomen mildly distended. PEG tube in place. EXTREMITIES: + Diffuse Anasarca. Assessment/Plan Assessment 86y/o female critically ill with poor prognosis following a large stroke some weeks ago. Hematology consulted for anemia secondary to GIB/acute illness with underlying coagulopathy and thrombocytopenia. Plan 1. Multiple blood products ordered. 2. Pt is now a DNR, but per son's wishes we will continue to be aggressive with care 3. Will obtain labs in am Attending Statement The exam, history, and the medical decision-making described in the above note were completed with the assistance of the mid-level provider. I reviewed and agree with the findings presented. I attest that I had a [id number] encounter with the patient on the same day, and personally performed and documented my assessment and findings in the medical record. Patent had PEA last night and CPR was conducted with regain of the pulse She is actively dying with persistent hypotension, bradycardia, multi-organ failure, bleeding and requiring multiple blood products prognosis very poor. per son's wishes aggressive efforts on going Teresa Ryan January 03, 2017 15:07 Alfonso Alaniz MD January 04, 2017 00:21
--- NOTE | 2017-01-03 17:25 | HHI.DS ---
Summary Note Date of : January 03, 2017 Time Of : 15:58 Admission Date Nov 08, 2016 at 18:13 Admitting Diagnosis large posterior CVA, respiratory distress, rhabdomyolysis Diagnosis at Time of : Brief History This is an 86yF with per report no other past medical history who presented to the ER after she was found unresponsive in her bed. According to ER reports, her family saw her normal last night when she had a fall, with unknown LOC. At that point, he helped her back to bed. However, this morning she did not wake up. On arrival to the ER, she was unresponsive only withdrawing to pain. she was intubated for airway protection and a poor GCS. CT head demonstrated massive posterior-circulation ischemic stroke. The patient is currently intubated and unresponsive and cannot provide any additional history. CBC/BMP: 01/03/17 0349 12/30/16 0508 Significant Findings Laboratory Tests Test 12/31/16 01/01/17 01/01/17 01/02/17 19:05 10:00 10:41 04:35 Hemoglobin 7.8 GM/DL 6.3 GM/DL 5.6 GM/DL (11.6-15.3) (11.6-15.3) (11.6-15.3) Hematocrit 23.6 % 20.2 % 17.7 % (35.0-46.0) (35.0-46.0) (35.0-46.0) Platelet Count 35 TH/MM3 32 TH/MM3 48 TH/MM3 (150-450) (150-450) (150-450) White Blood Count 14.8 TH/MM3 13.9 TH/MM3 (4.0-11.0) (4.0-11.0) Red Blood Count 2.16 MIL/MM3 1.90 MIL/MM3 (4.00-5.30) (4.00-5.30) Mean Corpuscular Hemoglobin 31.0 % 31.4 % Concent (32.0-36.0) (32.0-36.0) Red Cell Distribution Width 19.9 % 19.7 % (11.6-17.2) (11.6-17.2) Mean Platelet Volume 12.5 FL 12.2 FL (7.0-11.0) (7.0-11.0) Neutrophils (%) (Auto) 79.9 % (16.0-70.0) Lymphocytes (%) (Auto) 8.7 % (9.0-44.0) Monocytes (%) (Auto) 10.0 % (0.0-8.0) Neutrophils # (Auto) 11.8 TH/MM3 (1.8-7.7) Monocytes # (Auto) 1.5 TH/MM3 (0-0.9) Neutrophils % (Manual) 76 % (16-70) Band Neutrophils % 12 % (0-6) Lymphocytes % 3 % (9-44) Neutrophils # (Manual) 13.0 TH/MM3 (1.8-7.7) Nucleated Red Blood Cells 1 /100 WBC (0-0) Platelet Estimate LOW (NORMAL) Polychromasia 2.9 % (0.0-1.9) Ovalocytes 1+ (NORMAL) Prothrombin Time 21.2 SEC 15.6 SEC (9.8-11.6) (9.8-11.6) Fibrinogen 208 mg/dL (227-377) Antibody Screen POSITIVE Test 01/02/17 01/03/17 01/03/17 13:51 03:49 14:18 Blood Gas HCO3 6 mmol/L (22-26) Blood Gas Base Excess -23.6 mmol/L (-2-2) Arterial Blood pH 6.94 (7.380-7.420) Arterial Blood Partial 30 mmHg (38-42) Pressure CO2 Arterial Blood Partial 446 mmHg Pressure O2 (61-120) Arterial Blood Oxygen Content 10.0 Vol % (12.0-20.0) Blood Gas Hemoglobin 6.4 G/DL (12.0-16.0) White Blood Count 12.5 TH/MM3 (4.0-11.0) Red Blood Count 1.53 MIL/MM3 (4.00-5.30) Hemoglobin 4.1 GM/DL (11.6-15.3) Hematocrit 15.9 % (35.0-46.0) Mean Corpuscular Volume 103.6 FL (80.0-100.0) Mean Corpuscular Hemoglobin 26.1 % Concent (32.0-36.0) Red Cell Distribution Width 23.2 % (11.6-17.2) Platelet Count 14 TH/MM3 (150-450) Prothrombin Time 37.5 SEC (9.8-11.6) Fibrinogen LESS THAN 35 mg/dL (227-377) Antibody Screen POSITIVE Imaging Last Impressions Chest X-Ray 12/15/16 Signed Impressions: Service Date/Time: Thursday, December 15, 2016 10:46 - CONCLUSION: No appreciable change. Belkis Rodriguez MD Upper Extremity Ultrasound 12/14/16 0000 Signed Impressions: Service Date/Time: November 14:39 - CONCLUSION: Thrombus within the cephalic vein. Belkis Rodriguez MD Thoracentesis 12/01/16 Signed Impressions: Service Date/Time: Thursday, December 01, 2016 18:56 - CONCLUSION: Uncomplicated CT-guided thoracentesis. Jeffery Alvarado MD Chest CT 12/01/16 Signed Impressions: Service Date/Time: Thursday, December 01, 2016 13:09 - CONCLUSION: Bilateral pleural effusion, larger on the right than the left. Mack Cao MD FACR Abdomen/Pelvis CT 12/01/16 Signed Impressions: Service Date/Time: Thursday, December 01, 2016 13:09 - CONCLUSION: 1. Right inguinal hernia containing only fluid. 2. Generalized anasarca. 3. Trace ascites. 4. Bilateral pleural effusions, larger on the right than the left. Mack Cao MD FACR Abdomen Ultrasound 11/27/16 Signed Impressions: Service Date/Time: Sunday, November 27, 2016 08:35 - CONCLUSION: Stone in the neck of the gallbladder. Trace ascites and mild splenomegaly Jeffery Alvarado MD Gastrostomy Tube Placement 11/24/16 0000 Signed Impressions: Service Date/Time: Sunday, November 27, 2016 14:34 - CONCLUSION: Uncomplicated gastrostomy tube placement as above. Kirit Alcantar MD Head CT 11/08/16 1657 Signed Impressions: Service Date/Time: Tuesday, November 08, 2016 17:06 - CONCLUSION: Low density seen throughout the posterior circulation regions including the susan and midbrain, cerebellar hemispheres, occipital and posterior medial temporal lobes and right thalamus. This likely represents areas of infarction involving the posterior territory circulation. Jeffery Zhong MD Carotid Artery Ultrasound 11/08/16 0000 Signed Impressions: Service Date/Time: Tuesday, November 08, 2016 22:24 - CONCLUSION: Mild calcified plaque at the carotid bulbs. No evidence of hemodynamically significant carotid stenosis. José Luis Beltran MD Hospital Course Remarks/Hospital Course This is an 86yF with per report no other past medical history who presented to the ER after she was found unresponsive in her bed. According to ER reports, her family saw her normal last night when she had a fall, with unknown LOC. At that point, he helped her back to bed. However, this morning she did not wake up. On arrival to the ER, she was unresponsive only withdrawing to pain. she was intubated for airway protection and a poor GCS. CT head demonstrated massive posterior-circulation ischemic stroke. The patient is currently intubated and unresponsive and cannot provide any additional history. 11/09: No acute changes overnight. Palliative care team has consult with the family regarding goals of care. Currently the patient's sedation fentanyl infusion has been turned off without any response from patient. The patient notably does withdrawal to pain. 11/10: No change in neurological status. [id number]. The patient withdraws to pain 4 extremities. The patient currently on no sedation, fentanyl infusion discontinued yesterday. Tube feeds were initiated. The patient's urine culture grew back Escherichia coli, the patient was started on antibiotics. Extensive discussion with son regarding patient's neurological status, son Wyatt has had extensive discussion with palliative care.The son feels that yesterday when the patient was spoken to in [place] the patient squeezed his hand and desires aggressive treatment. The patient's neuro status is unchanged, totally unresponsive with occasional reflexive twitching of feet B/L. Follow-up with neurology Dr. Pack, guarding any further imaging studies. 11/13: No change in neuro exam. Palliative care following. Family wanting full aggressive care. Palliative care will address early trach PEG 11/14: No improvement in neuro status. Son has not made decisions regarding trach and PEG. Apparently he wants to wait longer to see any improvement 11/15: Remains unresponsive. Neuro exam with extensor posturing-unchanged. Son requesting aggressive care. Continues to have low-grade fever 11/16: Clinically no improvement. Tolerates CPAP. Unable to extubate as patient will not protect airway 11/17: Tolerating C Pap but no change in neuro exam. Hemoglobin noted to be 6.8 hemodynamically stable 11/18: Became tachycardic and hypotensive early a.m., placed on assist control. Otherwise neuro exam remains unchanged 11/19: Continues to spike fever Tmax 102, started on vancomycin and cefepime in addition to Levaquin yesterday. Currently only low-grade fever. Received 2 units of blood for hemoglobin of 5.3. CBC pending at this time. No improvement in neuro exam 11/20: White count is 18.3 today, MAXIMUM TEMPERATURE 103.1. Chest x-ray showing right sided infiltrate. Urine culture with gram-negative rods and Brionna albicans. ID consulted Diflucan added 11/21/16: Tmax 101.5. Bilateral lung infiltrates, R>L but slightly improved. No improvement in neuro exam. ID consulted and following. 11/22/16: No fever. CT chest- moderate to large R pleural effusion, bilateral lung infiltrates. ABX per ID. CXR today shows increasing bilateral infiltrates and effusion right more than left. Almost near complete infiltrates on the right lung [place]. Vaginally worsening creatinine today 1.45 indicating multiorgan failure 11/23/16: Hb 9.8 today after 2U PRBC yesterday. Plan for tracheostomy today. INR normal platelet count 116. Worsening creatinine today is 1.6. UO 550 ml in 24 hours. 1L NS bolus and 75 ml per hour maintenance NS. Started on Dopamine 3 mcg per min to maintain MAP>65 11/24 Patient is on ventilator via trach. Afebrile. On Dopamine 4 mics. 11/25 No acute events overnight. s/p EGD yesterday showed mild gastritis unable to place PEG tube endoscopically. Remains on Dopamine 4 mics. On no sedation unresponsive. 11/26 No acute events overnight. On CPAP with PS 20, PEEP: 5 and FIO2 40%. Afebrile. Off Dopamine. Afebrile. 11/27 Patient remains on ventilator via trach on no drips. Afebrile. For PEG tube placement by IR today. 11/28 Patient s/p PEG tube placement by IR yesterday, s/p Right thoracentesis with removal 700ml CXR showed better aeration of lungs, Hgb 6.7 this morning 2units PRBC ordered. Renal function worse with Cr: 3.40 from 2.85 . 11/29: Remains encephalopathic on mechanical ventilation via tracheostomy. 11/30: Remains encephalopathic on mechanical ventilation via tracheostomy. 12/01 Patient s/p transfusion 1unit PRBC last night for Hgb 5.8 in addition to 2L NS. Hgb 6.5 this morning. 12/02: Afebrile. The patient underwent CT-guided thoracentesis yesterday with approximately 600 cc removed. Chest x-ray pending this a.m.. Patient received packed red blood cell 2 units yesterday. Hemoglobin 7.4. Pending EGD today. 12/03:The patient underwent EGD yesterday with Dr. Farnsworth patient was noted to have a large active bleeding ulcer in the body of the stomach, multiple AVMs. Multiple ablations performed. This a.m. hemoglobin dropped to 6.1, platelet count 38. The patient was transfused 2 PRBC, and a unit of platelets. Patient still not relieved receiving any nutrition will begin PPN today. The patient continues to have copious amounts of melena with fecal incontinence apparatus in place. 12/04: The patient continues to have copious melena. PT INR drawn last evening INR was noted to be 13.5. The patient received KCentra, and current INR 1.3 the family requests aggressive measures to be continued. No further interventions from gastroenterology per . IR deemed the patient not a candidate for arteriography or endovascular treatment. 12/05: Patient's current medical status unchanged. Large tarry stools, acute blood loss anemia continues in conjunction with thrombocytopenia. During the night the nurse reported a malodorous scent was noted in free water flush container for instillation through G-tube. It was noted to be possibly fish oil , patient's son was in the room during that time. Container removed. The patient is noted to have a hemoglobin level of 5.8 today will receive 2 units of packed red blood cells and 1 unit of platelets today. 12/06: The patient continues to have copious melena. The patient received one 6 pack of platelets, and 2 units of blood yesterday. Tonight as reported by the nurse in the evening the son continue to utilize fish oil in the patient's free water, which was removed by the nurse. Ethics committee consult was initiated with Dr. Bauer yesterday, regarding assessing goals of care. 12/07: The patient's INR 1.3. Patient received 2 units of blood and one 6 pack of platelets yesterday. Awaiting ethics committee meeting with Dr. Bauer. The patient continues to require transfusions. 12/08: Patient was noted to have a drop in hemoglobin this a.m.. The patient is being transfused 2 units of PRBCs, with noted difficulty obtaining unit secondary to antibodies. Hematology will be consulted. Bioethics committee meeting planned to convene in one week, patient's son has agreed to attend. 12/09: Afebrile. No change in neuro status. Wound Care consult for left and blisters on back, orders provided. Hemoglobin stable post 2 units packed red blood cells yesterday. 12/10: The patient's hemoglobin 7.6 yesterday, hemoglobin pending for today. Overnight RN reported family member son continually putting some chemicals in the gastric tube of the patient, risk management notified. Hematology oncology has evaluated the patient, awaiting bioethics committee meeting scheduled for next week. The patient continues on PPN for nutritional support. 12/11 Patient remains on ventilator via trach on no sedation unresponsive. Afebrile.On Protonix drip and PPN. 12/12 No acute events overnight. Afebrile. Hgb 6.8 this morning 2 units PRBC ordered . 12/13 Patient remains on ventilator via trach, s/p transfusion 2units PRBC yesterday Hgb 9.1 this morning. Afebrile. On Protonix drip. 12/14 Patient s/p EGD yesterday which showed esophageal varices and hiatal hernia. On Ventilator via trach. H/H stable. On Protonix drip. 12/15 No acute events overnight. Afebrile. 12/16 Patient remains on ventilator via trach. Afebrile. 12/17 No acute events overnight. Afebrile. 12/18 Patient remains on ventilator via trach. Afebrile. Renal function continue to decline with Cr: 3.2 today from 3.0 with UO 805ml in 24 hrs. Afebrile. 12/19 No acute events overnight. Patient was given 2units Cryo and Vitamin K 5mg x1 by heme. On CPAP with FIO2 30%. Afebrile. Cr: 3.16 from 3.20 with UOP 1150ml in 24 hrs. 12/20: Neuro status remains unchanged. Had some black tarry stools reportedly. 12/21: Remains encephalopathic, on mechanical ventilation via tracheostomy. Hemoglobin dropped to 6.7 today. Has some black tarry stools. Being transfused 1 unit PRBCs. 12/22: Remains encephalopathic, on mechanical ventilation via tracheostomy. 12/23: Remains encephalopathic. On mechanical ventilation via trach. Hemoglobin 7.4 this morning. 1 unit PRBCs ordered. 12/24: Remains encephalopathic on mechanical ventilation. Transfuse 2 units PRBCs yesterday. 12/25: Remains encephalopathic on mechanical ventilation. Hemoglobin drifting down. 12/26: Remains on mechanical ventilation via tracheostomy. Being transfused 1 unit PRBCs today for drop in hemoglobin. 12/27: Remains encephalopathic, on mechanical ventilation via tracheostomy. Now has fungemia and KPC in urine. Transfused 2 units PRBCs today 12/28: Patient remains on mechanical ventilation change in mental status. ID following, Dr. Wen. 12/29: Hemoglobin was noted to be 6.6 this a.m., the patient was transfused 2 units of packed red blood cells. Posttransfusion CBC pending. Patient continues to have black tarry stools. 12/30: Platelet count low, patient to receive 2 units of platelets and cryoprecipitate today. The patient is hypothermic requiring warming devices to maintain temperature. MAP remains in the 60s. Patient continued continues to have copious black tarry, bloody stools. Sodium level 152 today will resume D5W. Tejeda changed, peripheral IVs/ lines changed yesterday. 12/31: Recent continues to be thrombocytopenic with a platelet count today of 41. Patient to receive 2 units of platelets, Hemoglobin is noted to be 4.7 will receive 3 units of packed red blood cells. INR pending. Fibrinogen level within normal limits. The patient remains encephalopathic. 01/01: The patient continues to be coagulopathic, now requiring daily repletion of factors. Remains encephalopathic. Last night was noted steady stream of blood flowing from PEG tube. 01/02: The patient continues to be coagulopathic, hemoglobin 5.6 this a.m. after receiving 2 units of FFP 1 unit of cryoprecipitate 2 units of packed red blood cells yesterday. Patient scheduled to receive 2 units of packed cells, 22 units of platelets, 1 unit of cryoprecipitate this a.m.. The patient has been noted to become hypotensive and has been on phenylephrine maximum doses MAP remains in the high 40s. The patient was additionally placed on Levophed, vasopressin. Patient was noted to have poor oxygenation as well a stat chest x- ray has been performed results pending, ABG has been performed results pending. Blood transfusions are continued, and the patient continues to bleed. Multiple attempts of calling son Wyatt this morning to update him on patient's medical status were unsuccessful. 01/03: The patient coded last night, several rounds of CPR was initiated, with resultant blood pressure. The patient was made a DNR by son after the event. The patient's hemoglobin this morning was noted to be 4.1. The patient has continued to received blood products. Heart rate has been in the low 40s all night. 01/03: The patient went asystolic rhythm. No definable pulse, or heart rate. Time of [id number] Aysha Cartwright MD January 03, 2017 17:25
== END 2017-01-03 15:58 | disposition expired | DRG 4 ==
LOC: NEPE 16:49 → NEDA 18:13 → HIME 21:35
PROVIDERS: ADMIT Internal Medicine Critical Care Medicine; ATTEND Internal Medicine Critical Care Medicine
PROC: 5A1955Z Respiratory Ventilation, Greater than 96 Consecutive Hours (ICD-10-PCS; principal; 2016-11-08)
PROC: 0BH17EZ Insertion of Endotracheal Airway into Trachea, Via Natural or Artificial Opening (ICD-10-PCS; 2016-11-08)
PROC: 0T9B70Z Drainage of Bladder with Drainage Device, Via Natural or Artificial Opening (ICD-10-PCS; 2016-11-08)
PROC: 30233N1 Transfusion of Nonautologous Red Blood Cells into Peripheral Vein, Percutaneous Approach (ICD-10-PCS; 2016-11-18)
PROC: 0B113F4 Bypass Trachea to Cutaneous with Tracheostomy Device, Percutaneous Approach (ICD-10-PCS; 2016-11-23)
PROC: 0BJ08ZZ Inspection of Tracheobronchial Tree, Via Natural or Artificial Opening Endoscopic (ICD-10-PCS; 2016-11-23)
PROC: 0DB68ZX Excision of Stomach, Via Natural or Artificial Opening Endoscopic, Diagnostic (ICD-10-PCS; 2016-11-24)
PROC: 0DH63UZ Insertion of Feeding Device into Stomach, Percutaneous Approach (ICD-10-PCS; 2016-11-27)
PROC: 0W993ZX Drainage of Right Pleural Cavity, Percutaneous Approach, Diagnostic (ICD-10-PCS; 2016-12-01)
PROC: 0W3P8ZZ Control Bleeding in Gastrointestinal Tract, Via Natural or Artificial Opening Endoscopic (ICD-10-PCS; 2016-12-02)
PROC: 6A551Z2 Pheresis of Platelets, Multiple (ICD-10-PCS; 2016-12-05)
PROC: 0W3P8ZZ Control Bleeding in Gastrointestinal Tract, Via Natural or Artificial Opening Endoscopic (ICD-10-PCS; 2016-12-13)
PROC: 30233K1 Transfusion of Nonautologous Frozen Plasma into Peripheral Vein, Percutaneous Approach (ICD-10-PCS; 2017-01-01)
PROC: 5A12012 Performance of Cardiac Output, Single, Manual (ICD-10-PCS; 2017-01-02)
DX: I63.22 Cerebral infarction due to unspecified occlusion or stenosis of basilar artery (principal); R65.20 Severe sepsis without septic shock; J69.0 Pneumonitis due to inhalation of food and vomit; N17.0 Acute kidney failure with tubular necrosis; D65 Disseminated intravascular coagulation [defibrination syndrome]; A41.9 Sepsis, unspecified organism; J15.211 Pneumonia due to Methicillin susceptible Staphylococcus aureus; K25.4 Chronic or unspecified gastric ulcer with hemorrhage; E87.0 Hyperosmolality and hypernatremia; J96.11 Chronic respiratory failure with hypoxia; J96.91 Respiratory failure, unspecified with hypoxia; K31.811 Angiodysplasia of stomach and duodenum with bleeding; J96.92 Respiratory failure, unspecified with hypercapnia; E87.2 Acidosis; E46 Unspecified protein-calorie malnutrition; M62.82 Rhabdomyolysis; N39.0 Urinary tract infection, site not specified; B37.49 Other urogenital candidiasis; Z99.11 Dependence on respirator [ventilator] status; D62 Acute posthemorrhagic anemia; I85.00 Esophageal varices without bleeding; K76.6 Portal hypertension; R18.8 Other ascites; I95.9 Hypotension, unspecified; D69.59 Other secondary thrombocytopenia; F03.90 Unspecified dementia, unspecified severity, without behavioral disturbance, psychotic disturbance, mood disturbance, and anxiety; I08.1 Rheumatic disorders of both mitral and tricuspid valves; H91.90 Unspecified hearing loss, unspecified ear; Z51.5 Encounter for palliative care; S00.03XA Contusion of scalp, initial encounter; W18.30XA Fall on same level, unspecified, initial encounter; Y93.9 Activity, unspecified; Y92.099 Unspecified place in other non-institutional residence as the place of occurrence of the external cause; Y99.9 Unspecified external cause status; K44.9 Diaphragmatic hernia without obstruction or gangrene; K29.70 Gastritis, unspecified, without bleeding; R73.9 Hyperglycemia, unspecified; K72.90 Hepatic failure, unspecified without coma; R00.0 Tachycardia, unspecified; B96.20 Unspecified Escherichia coli [E. coli] as the cause of diseases classified elsewhere; Y95 Nosocomial condition; R19.7 Diarrhea, unspecified; R13.10 Dysphagia, unspecified; Z66 Do not resuscitate; K80.20 Calculus of gallbladder without cholecystitis without obstruction; I46.9 Cardiac arrest, cause unspecified; I50.9 Heart failure, unspecified
CPT/HCPCS: 31500; 31600; 31624; 32555; 36430; 36600; 49440; 51702; 70450; 71010; 71250; 74176; 76700; 76937; 80048; 80053; 80061; 80069; 80076; 80202; 80307; 81001; 82272; 82550; 82552; 82565; 82805; 82945; 82948; 83615; 83735; 83986; 84100; 84155; 84157; 84484; 85007; 85014; 85018; 85025; 85027; 85049; 85384; 85610; 85730; 86022; 86077; 86403; 86850; 86870; 86880; 86900; 86901; 86902; 86920; 86922; 86927; 86965; 87040; 87070; 87077; 87086; 87147; 87186; 87205; 87493; 87641; 88305; 88312; 89051; 92950; 93005; 93306; 93880; 93971; 94002; 94003; 94640; 94664; A7520; C1729; C9113; C9132; J0171; J0330; J0610; J0690; J0692; J0696; J0744; J1205; J1265; J1450; J1610; J1644; J1940; J1956; J2150; J2250; J2354; J2370; J2405; J2543; J3010; J3370; J3430; J3480; J7030; J7040; J7050; J7060; J7070; P9016; P9017; P9035; P9045; P9047; Q4081; Q9967